=== PATIENT | female | born 1940 | race Caucasian/White ===

== ENCOUNTER 2023-04-19 09:14 | Outpatient (OUT) | payer MEDICARE, SELFPAY ==
[2023-04-19 10:25] LABS: Aspartate Amino Transferase 15 U/L (15-37); Chol HDL Ratio 3.8; Cholesterol 222 mg/dL (<=200); HDL Cholesterol 58 mg/dL (40-60); Triglycerides 247 mg/dL (<=150); VLDL CHOLESTEROL 49.4 mg/dL
== END 2023-04-19 09:15 ==
PROVIDERS: PCP Family Medicine; Visit Provider Internal Medicine Cardiovascular Disease
DX: I25.10 Atherosclerotic heart disease of native coronary artery without angina pectoris (principal); E78.5 Hyperlipidemia, unspecified
CPT/HCPCS: 36415; 80061; 84450

== ENCOUNTER 2023-06-22 09:33 | Outpatient (OUT) | payer MEDICARE, SELFPAY ==
[2023-06-22 10:02] LABS: Basophils Absolute Auto 0.1 10^3/uL (0.0-0.1); Eosinophils Absolute Auto 0.3 10^3/uL (0.0-0.7); Eosinophils Percent Auto 3.2 % (0.9-7.0); Hematocrit 46.1 % (36.0-48.0); Hemoglobin 15.1 g/dL (12.0-16.0); Immature Granulocytes Abs Auto 0.06 10^3/uL (0.00-0.03); Immature Granulocytes Pct Auto 0.8 % (0.0-0.5); Lymphocytes Absolute Auto 1.8 10^3/uL (1.2-3.8); Lymphocytes Percent Auto 22.9 % (20.5-60.0); Mean Corpuscular HGB Conc 32.8 g/dL (29.9-35.2); Mean Corpuscular Hemoglobin 30.3 pg (26.7-34.0); Mean Corpuscular Volume 92.4 fL (81.0-99.0); Monocytes Absolute Auto 0.7 10^3/uL (0.3-0.8); Neutrophils Percent Auto 63.1 % (43.0-75.0); Platelet Count 199 10^3/uL (150-450); Red Blood Count 4.99 10^6/uL (4.20-5.40); Red Cell Distribution Width 13.7 % (11.0-15.0); White Blood Count 7.9 10^3/uL (4.0-11.0)
[2023-06-22 10:14] LABS: Estimated Average Glucose 232 mg/dL; Glycohemoglobin A1C 9.7 % (4.5-6.2)
[2023-06-22 10:30] LABS: Alanine Aminotransferase 15 U/L (14-59); Albumin Globulin Ratio 0.9; Albumin Level 3.4 g/dL (3.4-5.0); Alkaline Phosphatase 70 U/L (46-116); Anion Gap 12.8; Aspartate Amino Transferase 14 U/L (15-37); BUN Creatinine Ratio 13.6; Bilirubin Total 0.5 mg/dL (0.2-1.0); Calcium 9.3 mg/dL (8.5-10.1); Carbon Dioxide 27.5 mmol/L (21.0-32.0); Chloride 104 mmol/L (98-107); Estimated GFR (African America >60 (>=60); Estimated GFR (Non-African Ame >60 (>=60); Globulin 3.7 g/dL; Glucose 193 mg/dL (74-106); Potassium 4.3 mmol/L (3.5-5.1); Sodium 140 mmol/L (136-145); Total Protein 7.1 g/dL (6.4-8.2)
[2023-06-22 17:11] LABS: Bilirubin Urine NEGATIVE (NEGATIVE); Blood Urine SMALL (NEGATIVE); Glucose Urine UA >=1000 mg/dL (NEGATIVE); Ketones Urine NEGATIVE (NEGATIVE); Leukocyte Esterase Urine SMALL (NEGATIVE); Nitrite Urine POSITIVE (NEGATIVE); Protein Urine NEGATIVE (NEG/TRACE); Specific Gravity Urine 1.025 (1.005-1.025); Urobilinogen Urine 0.2 EU/dL (0.2-1.0); pH Urine 5.5 (5.0-9.0)
[2023-06-22 17:12] LABS: Clarity Urine SLIGHTLY CLOUDY (CLEAR); Color Urine DK YELLOW (YELLOW)
== END 2023-06-22 09:34 | disposition home or self-care (01) ==
PROVIDERS: PCP Family Medicine; Visit Provider Family Medicine
DX: E11.65 Type 2 diabetes mellitus with hyperglycemia (principal); R39.9 Unspecified symptoms and signs involving the genitourinary system
CPT/HCPCS: 36415; 80053; 81003; 83036; 85025; 87086; 87150; 87186

== ENCOUNTER 2023-06-24 12:12 | Outpatient (OUT) | payer MEDICARE, SELFPAY ==
--- NOTE | 2023-06-24 | ECG_ITS ---
The 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
--- NOTE | 2023-06-24 12:28 | US_ITS ---
[address] [address] Patient Name: TOMÁS PALMER MRN: [id number] date: 1940 Sex: F Assigned Patient Location: CARD Current Patient Location: Accession/Order Number: [id number] Exam Date: 06/24/2023 12:30 Report Date: 06/25/2023 01:35 At the request of: MICA HOOK Procedure: US carotid duplex BI EXAMINATION: US carotid duplex BI HISTORY: Carotid Bruit R09.89 COMPARISON: CT C-spine 12/18/2022 TECHNIQUE: Duplex Doppler ultrasound analysis of carotid and vertebral arteries. . Bilateral carotid arterial duplex examination was performed using B-mode, color flow and spectral analysis. Carotid stenosis is reported according to validated velocity parameters, similar to NASCET criteria. FINDINGS: RIGHT CAROTID ARTERY: Mild plaque without significant stenosis. Anterior to bifurcation is a 1.1 x 0.7 x 0.5 cm oval hypoechoic mass versus lymph node; also seen on prior CT neck study and favoring a lymph node. RIGHT VERTEBRAL: Antegrade flow. Subclavian: PSV: 100.3 cm/s EDV: 0.0 cm/s CCA: Prox: PSV: 90.4 cm/s EDV: 9.7 cm/s Mid: PSV: 69.3 cm/s EDV: 4.7 cm/s Distal: PSV: 69.3 cm/s EDV: 6.3 cm/s BULB: PSV: 50.4 cm/s EDV: 6.5 cm/s ICA: Prox: PSV: 57.0 cm/s EDV: 12.0 cm/s Mid: PSV: 89.8 cm/s EDV: 15.5 cm/s Distal: PSV: 107.6 cm/s EDV: 18.7 cm/s ECA: PSV: 91.9 cm/s EDV: 0.0 cm/s VERTEBRAL: PSV: 50.5 cm/s EDV: 6.5 cm/s ICA/CCA ratio: PSV: 1.6 EDV: 3.0 LEFT CAROTID ARTERY: Mild plaque without significant stenosis. LEFT VERTEBRAL: Antegrade flow. Subclavian: PSV: 118.3 cm/s EDV: 0.0 cm/s CCA: Prox: PSV: 85.5 cm/s EDV: 14.4 cm/s Mid: PSV: 82.2 cm/s EDV: 14.4 cm/s Distal: PSV: 77.4 cm/s EDV: 14.4 cm/s BULB: PSV: 66.1 cm/s EDV: 7.9 cm/s ICA: Prox: PSV: 79.0 cm/s EDV: 12.8 cm/s Mid: PSV: 88.6 cm/s EDV: 22.4 cm/s Distal: PSV: 79.0 cm/s EDV: 17.6 cm/s ECA: PSV: 103.1 cm/s EDV: 0.0 cm/s VERTEBRAL: PSV: 57.9 cm/s EDV: 7.9 cm/s ICA/CCA ratio: PSV: 1.1 EDV: 1.6 US/US carotid duplex BI IMPRESSION: 1. 0-49% flow stenosis within the right left carotid arteries. 2. Mild atherosclerotic plaque within bulbs bilaterally. 3. Enlarged heterogeneous thyroid gland containing several nodules. Dedicated ultrasound evaluation of the thyroid gland is recommended. Spectral Doppler US Thresholds Stenosis (%) PSV (cm/sec) VICA/VCCA 0-49 <150 <2.5 50-69 150-225 2.5-4.0 >70 >225 >4.0 Electronically authenticated by: GRADY PARKER Date: 06/25/2023 01:35
== END 2023-06-24 12:13 | disposition home or self-care (01) ==
LOC: CARD 12:12
PROVIDERS: PCP Family Medicine; Visit Provider Family Medicine
DX: R07.9 Chest pain, unspecified (principal); R09.89 Other specified symptoms and signs involving the circulatory and respiratory systems
CPT/HCPCS: 93005; 93880

== ENCOUNTER 2023-07-24 10:08 | Outpatient (OUT) | payer MEDICARE, SELFPAY ==
--- NOTE | 2023-07-24 10:12 | US_ITS ---
The [address] [address] Patient Name: TOMÁS PALMER MRN: [id number] date: 1940 Sex: F Assigned Patient Location: US Current Patient Location: Accession/Order Number: [id number] Exam Date: 07/24/2023 10:15 Report Date: 07/25/2023 08:48 At the request of: MICA HOOK Procedure: US thyroid EXAM: Thyroid ultrasound CLINICAL INDICATION: Thyromegaly E01.0. COMPARISON: None TECHNIQUE: US of the thyroid gland was performed using a small parts transducer. Color flow vascular imaging was also done FINDINGS: Right thyroidectomy. Left lobe of the thyroid gland measures 5.8 x 2.1 x 2.5 cm in greatest length. Heterogenous left thyroid parenchyma echogenicity and vascularity. Spongiform 1.8 x 1.4 x 1.5 cm left thyroid nodule. Solid hypoechoic 2.4 x 0.8 x 1.3 cm nodule. Hypoechoic 1.1 x 0.7 x 0.8 cm left thyroid nodule has punctate echogenic foci. This is likely solid although some areas have a somewhat spongiform appearance. The isthmus measures 2 mm in the midline. Echogenicity within the isthmus is normal. US/US thyroid IMPRESSION: 1. Multiple indeterminate thyroid nodules. The solid hypoechoic 2.4 cm nodule meets criteria for ultrasound guided FNA. 2. Right thyroidectomy. Electronically authenticated by: JUAN KAMARA Date: 07/25/2023 08:48
== END 2023-07-24 10:09 | disposition home or self-care (01) ==
LOC: US 10:09
PROVIDERS: PCP Family Medicine; Visit Provider Family Medicine
DX: E01.0 Iodine-deficiency related diffuse (endemic) goiter (principal)
CPT/HCPCS: 76536

== ENCOUNTER 2023-08-02 10:12 | Day surgery (SDC) | payer MEDICARE, SELFPAY ==
--- NOTE | 2023-08-02 10:15 | US_ITS ---
[address] [address] Patient Name: TOMÁS PALMER MRN: [id number] date: 1940 Sex: F Assigned Patient Location: US Current Patient Location: US Accession/Order Number: [id number] Exam Date: 08/02/2023 10:40 Report Date: 08/02/2023 12:40 At the request of: MICA HOOK Procedure: US biopsy thyroid EXAMINATION: US biopsy thyroid HISTORY: Thyroid nodule COMPARISON: Ultrasound thyroid 07/24/2023 TECHNIQUE: After obtaining informed consent, ultrasound-guided fine needle aspiration was performed in the usual sterile manner. FINDINGS: IMAGING: Ultrasound. BIOPSY NEEDLE: 25-gauge; 3 separate passes LOCATION: Several similar-appearing heterogeneous nodules within left lobe; largest nodule within lateral mid body was sampled. SPECIMEN TYPE: Cellular tissue. LOCAL ANESTHETIC: Buffered Xylocaine. COMPLICATIONS: None. LABORATORY: Prepared slide smears and washings for cell block evaluation. OTHER: Negative. PATHOLOGY: Pending. An addendum will be added when results are available. US/US biopsy thyroid IMPRESSION: 1. Uneventful ultrasound guided fine needle aspiration (FNA). 2. Pathology results are pending. Electronically authenticated by: GRADY PARKER Date: 08/02/2023 12:40
[2023-08-02 10:30] VITALS: BP 147/66; PULSE 62; O2SAT 99
== END 2023-08-02 11:35 | disposition home or self-care (01) ==
LOC: US 10:12
PROVIDERS: Radiology Diagnostic Radiology; PCP Family Medicine; Visit Provider Family Medicine
DX: E04.1 Nontoxic single thyroid nodule (principal)
CPT/HCPCS: 10005; 88173

== ENCOUNTER 2023-09-27 09:39 | Emergency (ER) | payer MEDICARE, SELFPAY ==
[2023-09-27 09:42] VITALS: BP 158/79; PULSE 101; RESP 18; TEMP 36.8; O2SAT 95; BMI 23.1
--- NOTE | 2023-09-27 10:09 | ED_ITS ---
HPI - URI/Sore Throat General Chief Complaint: Upper Respiratory Infection Stated Complaint: COUGH Time Seen by Provider: 09/27/23 09:47 Source: patient History of Present Illness HPI Narrative: nasal congestion, cough and sore throat began 4 days ago and have slowly worsened since onset. No fever or chills. She told me that the congestion is in her upper chest as well. No vomiting or diarrhea. No urinary symptoms. Related Data Home Medications Medication Instructions Recorded Confirmed levothyroxine 50 mcg capsule 50 mcg PO DAILY 07/28/23 09/27/23 omega-3 fatty acids 1,000 mg 1,000 mg PO DAILY 07/28/23 09/27/23 capsule pioglitazone 45 mg tablet 45 mg PO DAILY 07/28/23 09/27/23 potassium chloride 10 mEq 10 meq PO DAILY 07/28/23 08/02/23 capsule,extended release propranolol 60 mg capsule,24 60 mg PO DAILY 07/28/23 09/27/23 hr,extended release rosuvastatin 20 mg tablet 20 mg PO DAILY 07/28/23 09/27/23 spironolactone 25 mg tablet 25 mg PO BID 07/28/23 09/27/23 zolpidem 10 mg tablet 10 mg feeding tube BEDTIME 07/28/23 09/27/23 Previous Rx's Medication Instructions Recorded azithromycin 250 mg tablet See Rx Instructions PO .COMPLEX #6 09/27/23 tabs mbmieslqjpwnsqf-ljlqrpgkvkmymqq-HJ 5 ml PO Q6H PRN cold symptoms #118 09/27/23 2 mg-30 mg-10 mg/5 mL oral syrup mL (Bromfed DM) tobramycin 0.3 % eye drops 1 drp ophthalmic (eye) Q6H 7 days 09/27/23 #5 mL Allergies Allergy/AdvReac Type Severity Reaction Status Date / Time Penicillins Allergy skin peeled Verified 08/02/23 12:27 aspirin AdvReac Unknown Verified 08/02/23 12:27 oxycodone AdvReac too strong Verified 08/02/23 12:27 metformin AdvReac Vomiting Uncoded 08/02/23 12:27 [facility] Medical History (Updated 09/27/23 @ 10:21 by Cornelius Giron) Breast cancer ?C50.919 - Malignant neoplasm of unspecified site of unspecified female breast (ICD-10) Diabetes ?E11.9 - Type 2 diabetes mellitus without complications (ICD-10) High cholesterol ?E78.00 - Pure hypercholesterolemia, unspecified (ICD-10) HTN (hypertension) ?I10 - Essential (primary) hypertension (ICD-10) Hypokalemia ?E87.6 - Hypokalemia (ICD-10) Thyroid cancer ?C73 - Malignant neoplasm of thyroid gland (ICD-10) UTI (urinary tract infection) ?N39.0 - Urinary tract infection, site not specified (ICD-10) Surgical History (Updated 08/02/23 @ 12:28 by Yuliana Liu) H/O discectomy ?Z98.890 - Other specified postprocedural states (ICD-10) H/O mastectomy ?Z90.10 - Acquired absence of unspecified breast and nipple (ICD-10) H/O partial thyroidectomy ?E89.0 - Postprocedural hypothyroidism (ICD-10) H/O radiofrequency ablation (RFA) of nerve of lumbar spine ?Z98.890 - Other specified postprocedural states (ICD-10) History of cardiac cath ?Z98.890 - Other specified postprocedural states (ICD-10) History of lumpectomy of right breast ?Z98.890 - Other specified postprocedural states (ICD-10) Hx of tonsillectomy ?Z90.89 - Acquired absence of other organs (ICD-10) S/P fine needle aspiration ?Z98.890 - Other specified postprocedural states (ICD-10) Status post ORIF of fracture of ankle ?Z98.890 - Other specified postprocedural states (ICD-10) ?Z87.81 - Personal history of (healed) traumatic fracture (ICD-10) Exam Narrative Exam Narrative: Nurses notes and vital signs reviewed and patient is not hypoxic. afebrile General: Well-appearing and in no apparent distress. Skin: Warm, dry, no pallor noted. No rash. Head: Normocephalic, atraumatic. Neck: Supple, non-tender. no cervical lymphadenopathy Eye: Pupils are equal, round and EOMI. No scleral icterus. Bilateral conjunctivitis with clear discharge/drainage and some crusting on the lashes Ears, Nose, Mouth, and Throat: TM are clear, moderate nasal mucosal hypertrophy. Oral mucosa is moist, posterior oropharynx erythema without exudate is noted, uvula is mid-line Cardiovascular: Tachycardia. Respiratory: No accessory muscle use or respiratory distress. Lungs with rhonchi in the apical montoya Musculoskeletal: normal ROM, no calf or popliteal tenderness, no lower extremity edema/swelling GI: Abdomen is soft, non-distended. Normal bowel sounds. No tenderness to palpation. No rebound, guarding, or rigidity noted. Neurological: A&O x4. No cranial nerve dysfunction observed. No truncal ataxia. Moves all extremities. Sensation intact. Psychiatric: Cooperative and interactive. Normal mood and affect. Constitutional Vital Signs, click to edit/add: Last Vital Signs Temp 98.2 F 09/27/23 09:42 Pulse 101 H 09/27/23 09:42 Resp 18 09/27/23 09:42 BP 158/79 H 09/27/23 09:42 Pulse Ox 95 09/27/23 09:42 O2 Del Method Room Air 09/27/23 09:42 Course Vital Signs Vital signs: Vital Signs Temperature 98.2 F 09/27/23 09:42 Pulse Rate 101 H 09/27/23 09:42 Respiratory Rate 18 09/27/23 09:42 Blood Pressure 158/79 H 09/27/23 09:42 Pulse Oximetry 95 09/27/23 09:42 Oxygen Delivery Method Room Air 09/27/23 09:42 Temperature 98.2 F 09/27/23 09:42 Pulse Rate 101 H 09/27/23 09:42 Respiratory Rate 18 09/27/23 09:42 Blood Pressure 158/79 H 09/27/23 09:42 Pulse Oximetry 95 09/27/23 09:42 Oxygen Delivery Method Room Air 09/27/23 09:42 MDM - URI/Sore Throat MDM Narrative Medical decision making narrative: Patient discharged home with prescriptions for bromfed and azithromycin. She can either see her PCP as needed or return to the ED if she worsens. Discharge Plan Discharge Chief Complaint: Upper Respiratory Infection Clinical Impression: Upper respiratory infection, Conjunctivitis Patient Disposition: Home, Self-Care Time of Disposition Decision: 10:12 Prescriptions / Home Meds: New azithromycin 250 mg tablet See Rx Instructions .ROUTE .COMPLEX Qty: 6 0RF Rx Instructions: For 250 mg dose pack: take 500 mg today (day 1), then 250 mg for 4 days (days 2-5) rxauxoegfqtvctj-zuewbrxjx-ZK [Bromfed DM] 2-30-10 mg/5 mL syrup 5 ml PO Q6H PRN (Reason: cold symptoms) Qty: 118 0RF tobramycin 0.3 % drops 1 drp ophthalmic (eye) Q6H 7 Days Qty: 5 0RF No Action zolpidem 10 mg tablet 10 mg feeding tube BEDTIME potassium chloride 10 mEq capsule, extended release 10 meq PO DAILY levothyroxine 50 mcg capsule 50 mcg PO DAILY omega-3 fatty acids 1,000 mg capsule 1,000 mg PO DAILY pioglitazone 45 mg tablet 45 mg PO DAILY propranolol 60 mg capsule,extended release 24 hr 60 mg PO DAILY spironolactone 25 mg tablet 25 mg PO BID rosuvastatin 20 mg tablet 20 mg PO DAILY Instructions: Upper Respiratory Infection (ED), Conjunctivitis (ED) Stand Alone Forms: Portal Instructions Referrals: Shanique Fletcher MD [Primary Care Provider] - 1 week
[2023-09-27 10:31] VITALS: BP 141/63; PULSE 88; RESP 20; O2SAT 94
== END 2023-09-27 10:34 | disposition home or self-care (01) ==
PROVIDERS: Emergency Provider Emergency Medicine; PCP Family Medicine
DX: J06.9 Acute upper respiratory infection, unspecified (principal); H10.9 Unspecified conjunctivitis; E89.0 Postprocedural hypothyroidism; I10 Essential (primary) hypertension; E78.00 Pure hypercholesterolemia, unspecified; E11.9 Type 2 diabetes mellitus without complications; Z79.899 Other long term (current) drug therapy; Z79.890 Hormone replacement therapy; Z90.10 Acquired absence of unspecified breast and nipple; Z98.890 Other specified postprocedural states; Z85.3 Personal history of malignant neoplasm of breast; Z85.850 Personal history of malignant neoplasm of thyroid; Z87.440 Personal history of urinary (tract) infections
CPT/HCPCS: 99283

== ENCOUNTER 2024-06-29 00:09 | Emergency (ER) | payer MEDICARE, SELFPAY ==
[2024-06-29 00:15] VITALS: PULSE 73
[2024-06-29 00:17] VITALS: BP 122/100; PULSE 74; TEMP 36.6; O2SAT 96; BMI 23.8
--- NOTE | 2024-06-29 00:24 | ED_ITS ---
HPI - Chest Pain General Chief Complaint: Chest Pain Stated Complaint: CHEST PAIN Time Seen by Provider: 06/29/24 00:21 Source: patient Mode of arrival: Wheelchair Limitations: no limitations History of Present Illness HPI narrative: past history of CAD. and NIDDM. past history of multiple stents. Presents with acute chest pain that started about one hour ago associated with nausea. 06/17 chest pain Related Data Home Medications ?Medication ?Instructions ?Recorded ?Confirmed levothyroxine 50 mcg capsule 50 mcg PO DAILY 07/28/23 06/29/24 omega-3 fatty acids 1,000 mg 1,000 mg PO DAILY 07/28/23 09/27/23 capsule pioglitazone 45 mg tablet 45 mg PO DAILY 07/28/23 09/27/23 potassium chloride 10 mEq 10 meq PO DAILY 07/28/23 08/02/23 capsule,extended release propranolol 60 mg capsule,24 60 mg PO DAILY 07/28/23 09/27/23 hr,extended release rosuvastatin 20 mg tablet 20 mg PO DAILY 07/28/23 09/27/23 spironolactone 25 mg tablet 25 mg PO BID 07/28/23 09/27/23 zolpidem 10 mg tablet 10 mg feeding tube BEDTIME 07/28/23 09/27/23 Previous Rx's ?Medication ?Instructions ?Recorded azithromycin 250 mg tablet See Rx Instructions PO .COMPLEX #6 09/27/23 tabs dzbdklzukbjlxrd-oubwajtjddqhcrd-ZJ 5 ml PO Q6H PRN cold symptoms #118 09/27/23 2 mg-30 mg-10 mg/5 mL oral syrup mL (Bromfed DM) tobramycin 0.3 % eye drops 1 drp ophthalmic (eye) Q6H 7 days 09/27/23 #5 mL Allergies Allergy/AdvReac Type Severity Reaction Status Date / Time Penicillins Allergy skin peeled Verified 08/02/23 12:27 oxycodone AdvReac too strong Verified 08/02/23 12:27 metformin AdvReac Vomiting Uncoded 08/02/23 12:27 Review of Systems ROS Status of ROS 10 or more systems reviewed and unremark able except as noted in history and below [facility] Medical History (Updated 06/29/24 @ 01:19 by Wilner Allen MD) High cholesterol ?E78.00 - Pure hypercholesterolemia, unspecified (ICD-10) Thyroid cancer ?C73 - Malignant neoplasm of thyroid gland (ICD-10) Breast cancer ?C50.919 - Malignant neoplasm of unspecified site of unspecified female breast (ICD-10) Hypokalemia ?E87.6 - Hypokalemia (ICD-10) HTN (hypertension) ?I10 - Essential (primary) hypertension (ICD-10) Diabetes ?E11.9 - Type 2 diabetes mellitus without complications (ICD-10) UTI (urinary tract infection) ?N39.0 - Urinary tract infection, site not specified (ICD-10) Surgical History (Updated 08/02/23 @ 12:28 by Yuliana Liu) History of lumpectomy of right breast ?Z98.890 - Other specified postprocedural states (ICD-10) H/O radiofrequency ablation (RFA) of nerve of lumbar spine ?Z98.890 - Other specified postprocedural states (ICD-10) S/P fine needle aspiration ?Z98.890 - Other specified postprocedural states (ICD-10) Hx of tonsillectomy ?Z90.89 - Acquired absence of other organs (ICD-10) H/O discectomy ?Z98.890 - Other specified postprocedural states (ICD-10) History of cardiac cath ?Z98.890 - Other specified postprocedural states (ICD-10) Status post ORIF of fracture of ankle ?Z98.890 - Other specified postprocedural states (ICD-10) ?Z87.81 - Personal history of (healed) traumatic fracture (ICD-10) H/O mastectomy ?Z90.10 - Acquired absence of unspecified breast and nipple (ICD-10) H/O partial thyroidectomy ?E89.0 - Postprocedural hypothyroidism (ICD-10) Exam Constitutional Vital Signs, click to edit/add: Last Vital Signs Temp 97.8 F 06/29/24 00:17 Pulse 69 06/29/24 01:16 Resp 18 06/29/24 01:16 BP 90/55 06/29/24 01:16 Pulse Ox 95 06/29/24 01:16 O2 Del Method Room Air 06/29/24 00:17 Common normals: average body habitus, oriented x3, alert and well nourished General appearance: in distress [facility] Common normals: normocephalic and head/scalp atraumatic Eye Common normals: PERRL, EOMs intact bilaterally and conjunctivae normal Respiratory Common normals: normal respiratory effort, no retractions, no use of accessory muscles and clear to auscultation bilaterally Cardio Common normals: regular rate, regular rhythm, S1 normal heart sound and S2 normal heart sound GI Common normals: Normal to inspection, nondistended, normoactive bowel sounds present, soft to palpation and non-tender Extremity Common normals: normal to inspection and full ROM Neuro Common normals: oriented x3, CN's II-XII intact bilaterally, moves all extremities and no focal motor deficits Psych Appearance: grossly normal Course Vital Signs Vital signs: Vital Signs Temperature 97.8 F 06/29/24 00:17 Pulse Rate 74 06/29/24 00:17 Respiratory Rate 18 06/29/24 00:17 Blood Pressure 122/100 H 06/29/24 00:17 Pulse Oximetry 96 06/29/24 00:17 Oxygen Delivery Method Room Air 06/29/24 00:17 Temperature 97.8 F 06/29/24 00:17 Pulse Rate 69 06/29/24 01:16 Respiratory Rate 18 06/29/24 01:16 Blood Pressure 90/55 06/29/24 01:16 Pulse Oximetry 95 06/29/24 01:16 Oxygen Delivery Method Room Air 06/29/24 00:17 MDM - Chest Pain MDM Narrative Medical decision making narrative: patient has past history of CAD s/p stent placement x 6 per history. followed by cardiology at [facility]. Presents with acute onset of left sided chest pain that started about one hour ago associated with nausea. EKG with ST elevation V1 and V2. NSR. Old Q waves V1-3. peaked T waves. Different from EKG 06/2023. Cardiology consult called for discussed with Dr Mcdermott and patient accepted for transfer to [facility] with acute STEMI Lab Data Labs: Lab Results 06/29/24 Range/Units 00:24 WBC 12.1 H (4.0-11.0) 10^3/uL RBC 5.20 (4.20-5.40) 10^6/uL Hgb 16.0 (12.0-16.0) g/dL Hct 47.3 (36.0-48.0) % MCV 91.0 (81.0-99.0) fL MCH 30.8 (26.7-34.0) pg MCHC 33.8 (29.9-35.2) g/dL RDW 13.0 (11.0-15.0) % Plt Count 307 (150-450) 10^3/uL MPV 9.8 (9.5-13.5) fL Neut % (Auto) 49.6 (43.0-75.0) % Lymph % (Auto) 36.0 (20.5-60.0) % [place] % (Auto) 11.4 (1.7-12.0) % Eos % (Auto) 1.3 (0.9-7.0) % Baso % (Auto) 1.0 (0.2-2.0) % Neut # (Auto) 6.0 (1.4-6.5) 10^3/uL Lymph # (Auto) 4.4 H (1.2-3.8) 10^3/uL [place] # (Auto) 1.4 H (0.3-0.8) 10^3/uL Eos # (Auto) 0.2 (0.0-0.7) 10^3/uL Baso # (Auto) 0.1 (0.0-0.1) 10^3/uL Abs Immat Gran (auto) 0.08 H (0.00-0.03) 10^3/uL Imm/Tot Granulo (auto) 0.7 H (0.0-0.5) % Sodium 137 (136-145) mmol/L Potassium 4.3 (3.5-5.1) mmol/L Chloride 99 (98-107) mmol/L Carbon Dioxide 31.9 (21.0-32.0) mmol/L Anion Gap 10.4 BUN 12.0 (7.0-18.0) mg/dL Creatinine 0.83 (0.55-1.02) mg/dL Est GFR ( Amer) >60 (>=60) Est GFR (Non-Af Amer) >60 (>=60) BUN/Creatinine Ratio 14.5 Glucose 222 H (74-106) mg/dL Calcium 10.2 H (8.5-10.1) mg/dL Troponin I High Sens 48.1 (4.0-51.3) pg/mL Critical Care Time Critical Care Time Total Critical Care Time: 30 Discharge Plan Discharge Chief Complaint: Chest Pain Clinical Impression: ST elevation myocardial infarction (STEMI) Patient Disposition: er Acute Care Hospital Discharge Location: [facility]
--- NOTE | 2024-06-29 00:27 | XR_ITS ---
The [address] [address] Patient Name: TOMÁS PALMER MRN: [id number] date: 1940 Sex: F Assigned Patient Location: ER Current Patient Location: Accession/Order Number: [id number] Exam Date: 06/29/2024 01:00 Report Date: 06/29/2024 02:24 At the request of: NOY WARNER Procedure: XR chest 1V SINGLE VIEW CHEST: 06/29/2024 1:00 AM EDT CLINICAL HISTORY:chest pain COMPARISONS: None. TECHNIQUE: Single frontal view of the chest, utilizing portable technique. Portable radiography should be considered a technically compromised study. Strongly consider dedicated PA and lateral chest radiographs, as clinically indicated. FINDINGS: LINES AND TUBES: Cardiac monitoring leads and wires overlie the patient. CARDIAC SILHOUETTE: Within normal limits. MEDIASTINAL AND HILAR CONTOUR: Within normal limits. PULMONARY PARENCHYMA AND PLEURA: Hyperinflation with probable COPD. Mild scarring at lung bases. Mild blunting left costophrenic angle with what appears to be some left basilar atelectasis or infiltrate. No consolidation on the right. No pneumothorax or right pleural effusion. OSSEOUS STRUCTURES:Nothing significant. OTHER COMMENTS:Left axillary surgical clips. XR/XR chest 1V IMPRESSION: COPD with findings suggesting left basilar infiltrate and pneumonia with small left pleural effusion and probable component of atelectasis. Correlate symptomatically and follow-up. Follow-up with PA and lateral chest with treatment. This report was generated with voice recognition software. Effort has been made to ensure accuracy of this report, however, occasional wording errors may persist. Please contact our office with any questions. Electronically authenticated by: ANIVAL ZAMORA Date: 06/29/2024 02:24
[2024-06-29] MEDS: NITROGLYCERIN 0.4 MG BOTTLE PO (00:30)
[2024-06-29 00:37] LABS: Basophils Absolute Auto 0.1 10^3/uL (0.0-0.1); Eosinophils Absolute Auto 0.2 10^3/uL (0.0-0.7); Eosinophils Percent Auto 1.3 % (0.9-7.0); Hematocrit 47.3 % (36.0-48.0); Immature Granulocytes Abs Auto 0.08 10^3/uL (0.00-0.03); Immature Granulocytes Pct Auto 0.7 % (0.0-0.5); Lymphocytes Absolute Auto 4.4 10^3/uL (1.2-3.8); Mean Corpuscular HGB Conc 33.8 g/dL (29.9-35.2); Mean Corpuscular Hemoglobin 30.8 pg (26.7-34.0); Mean Platelet Volume 9.8 fL (9.5-13.5); Monocytes Absolute Auto 1.4 10^3/uL (0.3-0.8); Monocytes Percent Auto 11.4 % (1.7-12.0); Neutrophils Percent Auto 49.6 % (43.0-75.0); Platelet Count 307 10^3/uL (150-450); White Blood Count 12.1 10^3/uL (4.0-11.0)
[2024-06-29] MEDS: ASPIRIN 81 MG TAB.CHEW 324 MG PO (00:42)
[2024-06-29] MEDS: ONDANSETRON PF 4 MG/2 ML VIAL IV (00:42)
[2024-06-29] MEDS: MORPHINE SULFATE 4 MG/ML VIAL IV (00:42)
[2024-06-29 00:52] LABS: Anion Gap 10.4; BUN Creatinine Ratio 14.5; Calcium 10.2 mg/dL (8.5-10.1); Carbon Dioxide 31.9 mmol/L (21.0-32.0); Chloride 99 mmol/L (98-107); Estimated GFR (African America >60 (>=60); Estimated GFR (Non-African Ame >60 (>=60); Glucose 222 mg/dL (74-106); Potassium 4.3 mmol/L (3.5-5.1); Sodium 137 mmol/L (136-145); Troponin I High Sensitivity 48.1 pg/mL (4.0-51.3)
[2024-06-29] MEDS: HEPARIN SODIUM (PORCINE) 5,000 UNIT/ML VIAL 2600 UNIT IV (01:11)
[2024-06-29 01:16] VITALS: BP 90/55; PULSE 69; O2SAT 95
[2024-06-29] MEDS: TICAGRELOR 90 MG TABLET 180 MG PO (01:22)
--- OUTSIDE RECORDS SUMMARY | 2024-06-29 01:30 | XMS_ITS | CCD ---
Author Organization [facility] Care Team Providers Care Ski Patrol Officer Name Role Phone MICA HOOK Primary Care Unavailable KIMBERLY RECIO Referring Unavailable PRIYA BAGLEY Admitting Unavailable SC Procedure Practitioner Unavailab ANITA Coon Surgeon Unavailable KURTIS STACY Attending Unavailable Unavailable Unavailable Mica Hook Unavailable MONSTER, DR MICA Klein Admitting Unavailable HOOK, DR MICA Klein Attending Unavailable MONSTER, DR MICA Klein Primary Care Unavailable MONSTER, DR MICA Klein Consulting Unavailable HOOK, DR MICA Klein Primary Care Unavailable DIAB, ADAN Admitting Unavailable SUE, ADAN Attending Unavailable ZIARGENIS, DR GRADY Barrett Consulting Unavailable ROBBIN KELLOGG Consulting Unavailable DIAB, ADAN Consulting Unavailable HOOK, DR MICA Klein Admitting Unavailable HOOK, DR MICA Klein Attending Unavailable MONSTER, DR MICA Klein Primary Care Unavailable MONSTER, DR MICA Klein Admitting Unavailable HOOK, DR MICA Klein Attending Unavailable HOOK, DR MICA Klein Primary Care Unavailable HOOK, DR MICA Klein Consulting Unavailable HOOK, DR MICA Klein Admitting Unavailable HOOK, DR MICA Klein Attending Unavailable HOOK, DR MICA Klein Primary Care Unavailable HOOK, DR MICA Klein Consulting Unavailable Mica Hook Unavailable MD Mica Hook Primary Care Provider MD Uma Mccauley Attending Provider [phone] Yesy BRADSHAW, Dr. Yusuf Lebron Referring Unavailable Monster, Dr. Mica Palacios Primary Care Unav ailable Yesy BRADSHAW, Dr. Yusuf Lebron Attending Unavailable Yesy BRADSHAW, Dr. Yusuf Lebron Referring Unavailable Monster, Dr. Mica Palacios Primary Care Unav ailable Yesy BRADSHAW, Dr. Yusuf Lebron Attending Unavailable Uma Mccauley Unavailable MD Mica Hook Primary Care Provider MD Uma Mccauley Attending Provider MD Mica Hook Primary Care Provider MD Mica Hook Attending Provider MD Mica Hook Primary Care Provider MD Mica Hook Attending Provider DO Nola Cooper Emergency Provider DO Charles Salinas A Other Provider MD Uma Mccauley Other Provider MD Porfirio Christensen II Other Provider MD Damián Christensen Other Provider DO Toni Arthur A Other Provider [phone] MD Ismael Booth Other Provider MD Chin Rodarte Admit Provider MD Chin Rodarte Attending Provider MD Amanda alpesh Yaser Other Provider MD Last [place] Other Provider Norma Diaz Unavailable Ismael Booth Unavailable MD Anthony Alaniz Admit Provider MD Anthony Alaniz Attending Provider JANETH Mascorro Other Provider Unavailable JANETH Arrieta Other Provider Unavailable JANETH Farias Other Provider Unavailable JANETH Vo Other Provider Unavailable JANETH Reyes Other Provider Unavailable JANETH Herzog Other Provider Unavailable MD Goldie Dale Other Provider FRANK Bejarano Other Provider DO Quin Pittman Other Provider MD Gonzales Bagley Other Provider DO Hank Vasquez Other Provider MD Kareem Parker Other Provider MD Ailyn Cantu Other Provider FRANK Kline Other Provider MD Brian Merino Other Provider MD Jasiel Bella Other Provider MD Jean Monson Other Provider MD Marcelo Carlos Other Provider DO Damián Boateng Other Provider MD Keyon Cortes Other Provider MD Bakari Pettit Other Provider NICK Perez-C Annie Perales Other Provider MD Eliot Gar Other Provider MD Rm Wilson Other Provider MD Humberto Chamorro Other Provider MD Tavo Corbett Other Provider DO Isabel Ochoa Other Provider DO Esau Wiley Other Provider DO Yves Rollins Other Provider [phone] FRANK Fischer Other Provider DO Sergo Pike Other Provider MD Luis Moya Other Provider FRANK Hills Other Provider FRANK Vega Other Provider MD Chin Rodarte Other Provider MD Nabil Buitrago Other Provider FRANK Guzman Other Provider Kal, DO Yazid Other Provider JANETH Hammond Other Provider Unavailable MD Ismael Booth Attending Provider MD Mica Hook Primary Care Provider MD Mica Hook Attending Provider MD Tosha Patel Attending Provider FRANK Guzman Other Provider Unavaila MD Mica Christina Attending Provider Mica Hook MD Primary Care Provider [phone] Yusuf Hayward MD Unavailable [phone] YUSUF HAYWARD Attending Unavailable MICA HOOK Primary Care Unavailable MD Mica Hook Primary Care Provider MD Tosha Patel Attending Provider [phone] MD Mica Hook Attending Provider MD Ismael Booth Attending Provider MD Ismael Booth Attending Provider MD Mica Hook Primary Care Provider MD Mica Hook Primary Care Provider MD Tosha Patel Attending Provider Mica Hook Primary Care Unavailable Tosha Patel Attending UnavailTosha Cyr Admitting UnavailIsmael Ruiz Consulting Unavailable Mica Hook Primary Care Unavailable Alabisiad, Alaa Attending Unavailable Alahmad, Alaa Admitting Unavailable Damián Christensen Consulting Unavailable Uma Mccauley Consulting Unavailable Toni Arthur Consulting Unavailable Porfirio Christensen II Consulting UnavailCharles Donato Consulting Unavailable Tosha Patel Consulting UnavailLast Horta Consulting Unavaila Anthony Toure Attending Unavailable Mica Hook Primary Care Unavailable Anthony Alaniz Admitting Unavailable Stella Mascorro Consulting Unavailable Jennifer Arrieta Consulting Unavailable Danna Farias Consulting Unavailable Belinda Vo Consulting Unavailable Merissa Reyes Consulting Unavailable Stacey Herzog Consulting Unavailable Goldie Dale Consulting Unavailable Lyudmila Bejarano Consulting Unavailable uQin Pittman Consulting Unavailable Gonzales Bagley Consulting Unavailable Hank Vasquez Consulting UnavailKareem Martinez Consulting Unavailable Ailyn Cantu Consulting Unavailable Dary Kline Consulting UnavailBrian Wild Consulting Unavailable Jasiel Bella Consulting Unavailable Jean Monson Consulting Unavailable Marcelo Carlos Consulting Unavailable Damián Boateng Consulting Unavailable Keyon Cortes Consulting Unavailable Bakari Pettit Consulting Unavailable Annie Perez Consulting Unavailable Eliot Gar Consulting UnavailRm Sage Consulting Unavailable Humberto Chamorro Consulting Unavailable Tavo Corbett Consulting Unavailable Isabel Ochoa Consulting Unavailable Esau Wiley Consulting Unavailable Yves Rollins Consulting Unavailable ObYelitza erickson Consulting Unavailable Sergo Pike Consulting Unavailable Daromar Obhakeemh Kvng Consulting Unavailable Ysabel Hills Consulting Unavailable Leia Vega Consulting Unavailable Alahmad, Alaa Consulting Unavailable Nabil Buitrago Consulting Unavailable Emeli Guzman Consulting Unavailable Mehnaz Bowden Consulting Unavailable Syl Hammond Consulting Unavailable Ismael Booth Attending Unavailable Hook, Mica E Primary Care Unavailable Olexa, Ismael Admitting Unavailable Hook, Mica E Admitting Unavailable Hook, Mica E Primary Care Unavailable HookMica E Attending Unavailable Olexa, Ismael Attending Unavailable Hook, Mica E Primary Care Unavailable Olexa, Ismael Admitting Unavailable Hook, Mica E Admitting Unavailable Hook, Mica E Primary Care Unavailable Hook, Mica E Attending Unavailable JAS STUART Attending Unavailable TOMASZ RON Referring Unavailable Allergies Allergy Classification Reported Allergen(s) Allergy Type Date of Onset Reaction(s) Facility (15 sources) cilostazol Drug Allergy unknown [facility] Repository (16 sources) metFORMIN; Translations: [METFORMIN] Drug Allergy Vomiting [facility] Repository (17 sources) Penicillins; Translations: [PENICILLINS] Drug allergy (disorder) Anaphylaxis [facility] Repository (20 sources) metFORMIN; Translations: [metformin] Drug Allergy Other [facility] (20 sources) oxyCODONE; Translations: [oxycodone] Drug Allergy Hallucinations [facility] (6 sources) Penicillins; Translations: [Penicillins] Allergy to drug (finding) [facility] 250 DO Work Phone: (1 source) metFORMIN Drug Allergy [facility] Repository (1 source) oxyCODONE Drug Allergy [facility] Repository (16 sources) Penicillin Drug Allergy anaphylaxis [employer] [facility] [employer] [facility] Other (8 sources) Aspirin Drug Allergy Unknown [employer] Other (18 sources) aspirin contraindicated Propensity to adverse reactions Comment:adverse rxn/side effects [employer] Other (2 sources) patient allergy list reviewed by nurse or physicia Propensity to adverse reactions Comment:Done [employer] Other (18 sources) Ambien CR *HYPNOTICS/SEDATIV ES/SLEEP DISORDER AGEN Propensity to adverse reactions Unknown [employer] Other (6 sources) Allergies Reconciled Propensity to adverse reactions Unknown [employer] Other (18 sources) Substance with penicillin structure and antibacterial mechanism of action (substance) Drug allergy anaphylaxis [employer] Other (4 sources) zolpidem; Translations: [zolpidem] Drug Allergy 024 [address] [facility] (1 source) Penicillins Drug Allergy Nausea/vomiting [facility] Work Phone: (1 source) cilostazol Drug Allergy [facility] Repository (1 source) metFORMIN Drug Allergy [facility] Repository (1 source) oxyCODONE Drug Allergy [facility] Repository (1 source) Penicillins Drug allergy (disorder) 024 [facility] Repository Medications Current Medications Medication Drug Class(es) Dates Sig (Normalized) Sig (Original) acetaminophen 325 mg oral tablet (20 sources) Start: 10-26-2023 End: 01-17-2024 take 2 tablets by mouth three times daily Acetaminophen (Tylenol) 325 mg tablet Active 650 MG PO Three times daily January 17, 2024 11:34am take 1 tablet by alex th three times daily as needed Acetaminophen 325 MG 1 tablet as needed Orally three times daily Active Acetaminophen / HYDROcodone (12 sources) Opioid Agonist Start: 12-23-2022 take 1-2 tablets by mouth every six hours as needed HYDROcodone-Acetaminophen 5-325 MG Oral Tablet TAKE 1 TO 2 TABLETS BY MOUTH EVERY 6 HOURS NEEDED FOR 7 DAYS Quantity: 50 Refills: 0 Ordered: 24-Dec-2022 DO Start : 23-Dec-2022 Active Start: 12-23-2022 take 1-2 tablets by mouth every six hours as needed for pain [place] 5-325 MG 1-2 tablets as needed for pain Orally every 6 hrs for 7 days Dec, Active Start: 12-23-2022 take 1-2 tablets by mouth every six hours as needed [place] 5-325 MG 1-2 tablets as needed Orally every 6 hrs for 7 days Dec, Active ascorbic acid 500 mg oral tablet (16 sources) Vitamin C Start: 11-03-2023 take 1 tablet by mouth once daily Ascorbic Acid (Vitamin C) (Vitamin C) 500 mg Tablet Active 500 MG PO Daily November 03, 2023 1:00am Vitamin C Active Blood-Glucose Meter (Onetouc h Ultra2 Meter) misc (6 sources) Start: 01-04-2024 Blood-Glucose Meter (Onetouch Ultra2 Meter) misc Active EACH .ROUTE .MEDSUPPLY January 04, 2024 1:00am As directed Blood-Glucose Sensor (Freest yle Rocio 3 Sensor) device (20 sources) Start: 02-24-2024 Blood-Glucose Sensor (Freestyle Rocio 3 Sensor) device Active 0 MISCELLANE .MEDSUPPLY February 24, 2024 8:35am As directed invitro, change every 14 days Start: 02-24-2024 End: 02-24-2024 Blood-Glucose Sensor (Freest yle Rocio 3 Sensor) device Discontinued 0 MISCELLANE .MEDSUPPLY 1 February 24, 2024 12:00am February 24, 2024 8:38am As directed Start: 01-04-2024 End: 01-04-2024 Blood-Glucose Sensor (Freest yle Rocio 3 Sensor) device Discontinued 0 .Route January 04, 2024 1:00am January 04, 2024 11:50am As directed Start: 01-04-2024 End: 01-04-2024 Blood-Glucose Sensor (Freest yle Rocio 3 Sensor) device Discontinued EACH .ROUTE .MEDSUPPLY 1 January 04, 2024 1:00am January 04, 2024 11:50am As directed Calcium Carbonate+Vitamin D (7 sources) Calcium Carbonat e+Vitamin D Active Calcium Carbonate-Vitamin D3 (Oyster Shell Calcium-Vit D3) 500 mg-5 mcg (200 unit) Tablet (9 sources) Start: 10-26-2023 take 1 tablet by mouth twice daily Calcium Carbonate-Vitamin D3 (Oyster Shell Calcium-Vit D3) 500 mg-5 mcg (200 unit) Tablet Active 1 TAB PO Twice daily October 26, 2023 1:00am Start: 10-26-2023 take 1 tablet by alex th twice daily Calcium Carbonate-Vitamin D3 (Oyster Shell Calcium-Vit D3) 500 mg-5 mcg (200 unit) Tablet Active 1 TAB PO Twice daily October 26, 2023 12:00am Cranberry preparation (10 sources) Non-Standardized Food Allergenic Extract, Non-Standardized Plant Allergenic Extract AZO Cranberry Active diclofenac sodium 0.01 mg/mg topical gel (20 sources) Nonsteroidal Anti-inflammatory Drug Start: 10-26-20 End: 03-07-20 apply 2 g topically three times daily Diclofenac Sodium Active 2 GM TOPICAL Three times daily March 07, 2024 11:11am Start: 03-30-2023 Voltaren 1 % a pply 1-2 grams to affected area Externally BID for 30 days March, Not-Taking/PRN Start: 03-30-2023 Voltaren 1 % a pply 1-2 grams to affected area Externally BID for 30 days March, Active Start: 03-30-2023 Voltaren 1 % a pply 1-2 grams to affected area Externally BID for 30 days March, Active Start: 05-05-2019 End: 10-11-2023 take 75 mg by mouth twice daily Diclofenac Sodium Discontinued 75 MG PO Twice daily May 05, 2019 12:00am October 11, 2023 5:25pm Diclofenac Sodiu m 1 % as directed Externally Active diphenhydrAMINE hydrochloride 25 mg oral capsule (16 sources) Histamine-1 Receptor Antagonist Start: 01-14-2024 take 1 capsule by mouth three times daily Diphenhydramine Hcl (Benadryl) 25 mg capsule Active 25 MG PO Three times daily January 14, 2024 1:00am Benadryl Active docusate sodium 50 mg / sennosides, shelter 8.6 mg oral tablet (1 source) take 2 tablets by mouth once daily sennosides-docusate sodium (Juliana-Colace) 8.6-50 mg tablet Take 2 tablets by mouth once daily. 0 Active FreeStyle Rocio 3 Sensor - (7 sources) FreeStyle Rocio 3 Sensor - as directed q 14 days Active FreeStyle Rocio 3 Sensor - as directed q 14 days for 30 days Active guaiFENesin (7 sources) Mucinex Active 3 ml insulin aspart, human 1 00 unt/ml pen injector (7 sources) Insulin Analog NovoLOG FlexPen 100 UNIT/ML ACHS, ISS 1:50 Subcutaneous Active NovoLOG FlexPen 100 UNIT/ML as directed Subcutaneous Active 3 ml insulin glargine 100 unt/ml pen injector (20 sources) Insulin Analog Start: 10-26-2023 Lantus Solosta r U-100 Insulin 100 unit/mL (3 mL) pen Start: 10-26-2023 End: 01-17-2024 Insulin Glargine (Lantus Ciara ostar U-100 Insulin) 100 unit/mL (3 mL) Insulin Pen Discontinued 25 UNIT SUBCUT Daily 7.5 October 26, 2023 1:00am January 17, 2024 11:44am Start: 05-05-2019 End: 10-11-2023 inject 12 [IU] by subcutaneous injection once daily at bedtime Insulin Glargine Discontinued 12 UNIT SUBCUT Daily at bedtime May 05, 2019 12:00am October 11, 2023 5:25pm Lantus SoloStar 100 UNIT/ML as directed Subcutaneous Active Lantus 100 UNIT/ ML as directed Subcutaneous 25 units Not-Taking 3 ml insulin glargine 100 unt/ml / lixisenatide 0.033 mg/ml pen injector (20 sources) Insulin Analog Start: 06-07-2024 End: 06-07-2024 Insulin Glargine-Lixisenatid e (Soliqua 100/33) 100 unit-33 mcg/mL insulin pen Active 23 UNIT SUBCUT Daily June 07, 2024 12:09pm Titrate to 30 u glargine once daily, has written instructions Start: 06-07-2024 End: 06-07-2024 Insulin Glargine-Lixisenatid e (Soliqua 100/33) 100 unit-33 mcg/mL insulin pen Discontinued 21 UNIT SUBCUT Daily June 07, 2024 11:23am June 07, 2024 12:08pm Titrate to 30 u glargine once daily, has written instructions Start: 03-07-2024 End: 06-07-2024 Insulin Glargine-Lixisenatid e (Soliqua 100/33) 100 unit-33 mcg/mL insulin pen Discontinued 18 UNIT SUBCUT Daily 16.2 90 March 07, 2024 3:29pm June 07, 2024 11:24am Titrate to 30 u glargine once daily, has written instructions Start: 01-17-2024 End: 03-07-2024 Insulin Glargine-Lixisenatid e (Soliqua 100/33) 100 unit-33 mcg/mL insulin pen Discontinued 16 UNIT SUBCUT Daily January 17, 2024 5:21pm March 07, 2024 11:17am Start: 01-17-2024 End: 01-17-2024 Insulin Glargine-Lixisenatid e (Soliqua 100/33) 100 unit-33 mcg/mL insulin pen Discontinued 15 UNIT SUBCUT Daily January 17, 2024 12:00am January 17, 2024 5:22pm Start: 12-15-2023 inject 15 [IU] by subcutaneous injection once daily Soliqua 100-33 UNT-MCG/ML inject 15 units Subcutaneous Daily for 90 days Dec, Active isopropyl alcohol 0.7 ml/ml medicated pad (2 sources) Start: 12-15-2023 Alcohol Prep P ads 70 % Use with Insulin pens Topical 4 times per day for 90 days Dec, Active melatonin 5 mg oral tablet (20 sources) Start: 03-07-2024 take 5 mg by mouth once daily at bedtime Melatonin Active 5 MG PO Daily at bedtime March 07, 2024 12:00am Start: 10-26-2023 End: 02-18-2024 take 5 mg by mouth once daily at bedtime Melatonin Discontinued 5 MG PO Daily at bedtime October 26, 2023 1:00am February 18, 2024 2:05pm One Touch Glucometer (5 sources) Start: 11-18-2023 One Touch Glucometer as directed sq 4 times daily for 365 days Dx E11.65 or insurance preferred Nov, Active 24 hr propranolol hydrochloride 160 mg extended release oral capsule (20 sources) beta-Adrenergic Ramos Start: 03-23-2024 take 1 capsule by mouth once daily Propranolol Active 0 .ROUTE .COMPLEX March 23, 2024 9:51am TAKE 1 CAPSULE BY MOUTH EVERY DAY Start: 03-23-2024 End: 03-23-2024 take 160 mg by mouth once daily Propranolol Discontinu ed 160 MG PO Daily March 23, 2024 12:00am March 23, 2024 9:51am Start: 01-17-2024 End: 03-23-2024 take 80 mg by mouth once daily Propranolol Discontinue d 80 MG PO Daily January 17, 2024 11:46am March 23, 2024 9:28am Start: 10-26-2023 End: 01-17-2024 take 160 mg by mouth once daily Propranolol Discontinu ed 160 MG PO Daily October 26, 2023 1:00am January 17, 2024 11:47am Start: 05-05-2019 End: 01-26-2024 take 160 mg by mouth once daily Propranolol Discontinu ed 160 MG PO Daily October 11, 2023 1:00am October 26, 2023 3:57pm take 1 capsule by [facility] every twenty-four hours Propranolol HCl ER 80 MG 1 capsule Orally Once a day for 90 days Active Propranolol HCl Active Senna Leaves (5 sources) Start: 03-07-2024 senna (Senokot) Active PO March 07, 2024 12:00am spironolactone 25 mg oral tablet (20 sources) Aldosterone Antagonist Start: 03-07-2024 take 25 mg by mouth twice daily Spironolactone Active 25 MG PO Twice daily March 07, 2024 12:00am Start: 11-10-2021 End: 02-18-2024 take 25 mg by mouth twice daily Spironolactone Discontinued 25 MG PO Twice daily January 17, 2024 12:00am February 18, 2024 2:05pm zolpidem tartrate 5 mg oral tablet (20 sources) gamma-Aminobutyric Acid-ergic Agonist Start: 03-13-2024 take 5 mg by mouth once daily at bedtime Zolpidem Active 5 MG PO Daily at bedtime 90 90 March 13, 2024 12:00am Start: 10-26-2023 End: 03-13-2024 take 10 mg by mouth once daily at bedtime Zolpidem Discontinued 10 MG PO Daily at bedtime March 07, 2024 11:15am March 13, 2024 8:35am Start: 10-11-2023 End: 10-26-2023 take 10 mg by mouth once daily at bedtime Zolpidem Discontinued 10 MG PO Daily at bedtime October 11, 2023 1:00am October 26, 2023 3:57pm Start: 05-05-2019 End: 10-11-2023 take 10 mg by mouth once daily at bedtime Zolpidem Discontinued 10 MG PO Daily at bedtime May 05, 2019 12:00am October 11, 2023 5:25pm Completed/Discontinued Medications Medication Drug Class(es) Dates Sig (Normalized) Sig (Original) acetaminophen 325 mg / oxyCODONE hydrochloride 5 mg oral tablet (20 sources) Opioid Agonist Start: 10-26-2023 End: 01-17-2024 take 1 tablet by mouth every four hours Oxycodone-Acetamino phen Discontinued 1 TAB PO Q4H 27 05October 26, 2023 January 17, 2024 11:45am Start: 10-15-2023 End: 10-15-2023 take 1 tablet by mouth every four hours Oxycodone-Acetaminophen Discontinued 1 T AB PO Q4H 08 12October 15, 2023 October 15, 2023 2:48pm Start: 10-15-2023 End: 10-15-2023 take 1 tablet by mouth every four hours Oxycodone-Acetaminophen Discontinued 1 T AB PO Q4H 10 October 15, 2023 October 15, 2023 2:48pm Start: 10-15-2023 End: 10-15-2023 take 1 tablet by mouth every four hours Oxycodone-Acetaminophen Discontinued 1 T AB PO Q4H 10 October 15, 2023 October 15, 2023 2:48pm Start: 10-15-2023 End: 10-15-2023 take 1 tablet by mouth every four hours Oxycodone-Acetaminophen Discontinued 1 T AB PO Q4H 10 October 15, 2023 October 15, 2023 2:48pm Start: 10-15-2023 End: 10-15-2023 take 1 tablet by mouth every four hours Oxycodone-Acetaminophen Discontinued 1 T AB PO Q4H 10 October 15, 2023 October 15, 2023 2:48pm Start: 10-15-2023 End: 10-15-2023 take 1 tablet by mouth every four hours Oxycodone-Acetaminophen Discontinued 1 T AB PO Q4H 10 October 15, 2023 October 15, 2023 2:48pm Start: 10-15-2023 End: 10-15-2023 take 1 tablet by mouth every four hours Oxycodone-Acetaminophen Discontinued 1 T AB PO Q4H 10 October 15, 2023 October 15, 2023 1:48pm Start: 10-15-2023 End: 10-15-2023 take 1 tablet by mouth every four hours Oxycodone-Acetaminophen Discontinued 1 T AB PO Q4H 10 October 15, 2023 October 15, 2023 1:48pm Start: 10-15-2023 End: 10-15-2023 take 1 tablet by mouth every four hours Oxycodone-Acetaminophen Discontinued 1 T AB PO Q4H 10 October 15, 2023 October 15, 2023 1:48pm Start: 10-15-2023 take 1 tablet by alex th every four hours Oxycodone-Acetaminophen Active 1 TAB PO Q4H 10 October 15, 2023 Start: 10-15-2023 End: 10-26-2023 take 1 tablet by mouth every four hours Oxycodone-Acetaminophen Discontinued 1 T AB PO Q4H October 15, 2023 2:48pm October 26, 2023 3:57pm ALPRAZolam 0.5 mg oral tablet (10 sources) Benzodiazepine Start: 03-06-2019 Xanax 0.5 MG t joby 1 tablet by mouth 1/2 hour prior to MRI. May repeat in 1/2 hr if needed Orally for 1 days Feb, Not-Taking aspirin 81 mg oral tablet (20 sources) Platelet Aggregation Inhibitor, Nonsteroidal Anti-inflammatory Drug Start: 01-04-2024 End: 01-04-2024 take 81 mg by mouth once daily Aspirin Discontinued 81 MG PO Daily January 04, 2024 11:35am January 04, 2024 11:52am Start: 10-27-2023 End: 01-04-2024 take 81 mg by mouth twice daily Aspirin Discontinued 81 MG PO Twice daily 40 October 27, 2023 1:00am January 04, 2024 11:36am Start: 10-11-2023 End: 10-26-2023 take 81 mg by mouth once daily Aspirin Discontinued 81 MG PO Daily October 11, 2023 1:00am October 26, 2023 3:57pm Start: 05-05-2019 End: 01-25-2025 take 81 mg by mouth once daily Aspirin Active 81 MG PO Daily 0 November 03, 2023 1:00am atorvastatin 80 mg oral tablet (20 sources) HMG-CoA Reductase Inhibitor Start: 05-05-2019 End: 06-06-2024 take 80 mg by mouth once daily at bedtime Atorvastatin Discontinued 80 MG PO Daily at bedtime December 24, 2023 10:57am December 30, 2023 9:45am blood-glucose sensor (FreeStyle Rocio 3 Sensor) (6 sources) Start: 01-14-2024 End: 02-24-2024 blood-glucose sensor (FreeStyle Rocio 3 Sensor) Discontinued .Route January 14, 2024 1:00am February 24, 2024 8:39am Start: 01-14-2024 blood-glucose sensor (FreeStyle Rocio 3 Sensor) Active .Route January 14, 2024 1:00am ciprofloxacin 500 mg oral tablet (20 sources) Quinolone Antimicrobial Start: 10-11-2023 End: 10-15-2023 take 500 mg by mouth twice daily Ciprofloxacin Hcl Discontinued 500 MG PO Twice daily October 11, 2023 1:00am October 15, 2023 1:15pm Start: 10-07-2023 take 1 tablet by alex every twelve hours Ciprofloxacin HCl 500 MG 1 tablet Orally every 12 hrs for 7 days Sep, Active Start: 07-19-2023 take 1 tablet by alex every twelve hours Ciprofloxacin HCl 250 MG 1 tablet Orally every 12 hrs for 5 day(s) Jul, Active Start: 11-23-2022 take 1 tablet by alex every twelve hours Cipro 250 MG 1 tablet Orally every 12 hrs for 3 day(s) Nov, Active Ciprofloxacin No t-Taking/PRN Ciprofloxacin Ac tive clindamycin 150 mg oral capsule (6 sources) Lincosamide Antibacterial Start: 09-15-2021 take 4 capsules by mouth every hour Clindamycin HCl - 150 MG Oral Capsule TAKE 4 CAPSULES BY MOUTH 1 HOUR PRIOR TO DENTAL APPOINTMENT Quantity: 12 Refills: 0 Ordered: 15-Sep-2021 DO Start : 15-Sep-2021 Active take [address] [facility] three times daily clindamycin (Cleocin) 150 mg capsule Layo e 1 capsule (150 mg) by mouth 3 times a day. 0 Active cyclobenzaprine hydrochloride 10 mg oral tablet (14 sources) Muscle Relaxant Start: 05-16-2019 End: 10-11-2023 take 10 mg by mouth three times daily Cyclobenzaprine Discontinued 10 MG PO Three times daily 50 May 16, 2019 12:00am October 11, 2023 5:25pm cycloSPORINE (20 sources) Calcineurin Inhibitor Immunosuppressant Start: 05-05-2019 End: 10-11-2023 take 1 drop(s) into the eye(s) twice daily Cyclosporine Discontinued 1 DROPS EYE-BOTH Twice daily May 05, 2019 12:00am October 11, 2023 5:25pm Start: 05-05-2019 End: 10-11-2023 take 1 drop(s) into the eye(s) twice daily Cyclosporine Discontinued 1 DROPS EYE-BOTH Twice daily May 04, 2019 11:00pm October 11, 2023 4:25pm Start: 05-05-2019 take 1 drop(s) into the eye(s) twice daily Cyclosporine Active 1 DROPS EYE-BOTH Twice daily May 05, 2019 12:00am take 1 drop(s) into the eye(s) twice daily cycloSPORINE 0.05 % 1 drop into affected eye Ophthalmic Twice a day Active Cyclosporine (Restasis) 0.05 % Dropperette (20 sources) Start: 10-26-2023 End: 06-07-2024 take 1 drop(s) into the eye(s) every twelve hours Cyclosporine (Restasis) 0.05 % Dropperette Discontinued 1 DROPS EYE-BOTH October 26, 2023 1:00am June 07, 2024 11:22am Start: 10-26-2023 take 1 drop(s) into the eye(s) every twelve hours Cyclosporine (Restasis) 0.05 % Dropperette Active 1 DROPS EYE-BOTH October 26, 2023 1:00am Start: 10-26-2023 take 1 drop(s) into the eye(s) every twelve hours Cyclosporine (Restasis) 0.05 % Dropperette Active 1 DROPS EYE-BOTH October 26, 2023 12:00am Start: 10-11-2023 End: 10-26-2023 take 1 drop(s) into the eye(s) every twelve hours Cyclosporine (Restasis) 0.05 % Dropperette Discontinued 1 DROPS EYE-BOTH October 11, 2023 1:00am October 26, 2023 3:57pm Start: 10-11-2023 End: 10-26-2023 take 1 drop(s) into the eye(s) every twelve hours Cyclosporine (Restasis) 0.05 % Dropperette Discontinued 1 DROPS EYE-BOTH October 11, 2023 12:00am October 26, 2023 2:57pm Start: 10-11-2023 take 1 drop(s) into the eye(s) every twelve hours Cyclosporine (Restasis) 0.05 % Dropperette Active 1 DROPS EYE-BOTH October 11, 2023 12:00am D-Mannose (6 sources) Start: 01-14-2024 End: 01-17-2024 take 1 mg by mouth once daily D-Mannose (Azo D-Mannose) 500 mg capsule Discontinued MG PO Daily January 14, 2024 1:00am January 17, 2024 11:36am 12 hr dextromethorphan hydrobromide 30 mg / guaiFENesin 600 mg extended release oral tablet (15 sources) Uncompetitive O-lbkgvz-Z-aspartat e Receptor Antagonist, Sigma-1 Agonist Start: 11-03-2023 End: 03-07-2024 take 1 tablet by mouth every twelve hours Dextromethorphan- Guaifenesin (Mucinex Dm) 30-600 mg tablet extended release 12 hr Discontinued 1 TAB PO Every 12 hours January 17, 2024 11:37am March 07, 2024 11:11am docusate sodium 100 mg oral capsule (20 sources) Start: 10-26-2023 End: 03-07-2024 take 100 mg by mouth twice daily Docusate Sodium Discontinued 100 MG PO Twice daily January 17, 2024 11:37am March 07, 2024 11:12am take 1 tablet by alex th every twenty-four hours Docusate Sodium 100 MG 1 tablet as needed Orally Once a day Active empagliflozin 25 mg oral tablet (12 sources) Sodium-Glucose Cotransporter 2 Inhibitor Start: 08-13-2022 End: 01-26-2024 take 1 tablet by mouth once daily Jardiance 25 mg Take 1 tablet (25 mg) by mouth once daily. 0 05/07/2023 01/26/2024 Discontinued (Discontinued by another clinician) 0.4 ml enoxaparin sodium 100 mg/ml prefilled syringe (10 sources) Low Molecular Weight Heparin Start: 10-15-2023 End: 10-26-2023 Enoxaparin (Lovenox) 40 mg/0.4 mL Syringe Discontinued 40 MG SUBCUT DAILY@10 4 October 15, 2023 1:00am October 26, 2023 3:57pm fluticasone propionate 0.05 mg/actuat metered dose nasal spray (14 sources) Corticosteroid Start: 05-05-2019 End: 10-11-2023 Fluticasone Propionate Discontinued 1 SPRAY INTRANASAL Daily May 05, 2019 12:00am October 11, 2023 5:25pm furosemide 40 mg oral tablet (20 sources) Loop Diuretic Start: 12-13-2023 End: 12-15-2024 take 40 mg by mouth once daily Furosemide Discontinued 40 MG PO Daily January 04, 2024 1:00am March 07, 2024 11:13am Start: 08-14-2021 take 1 tablet by alex th twice daily Furosemide 40 MG Oral Tablet take 1 tablet by mouth twice a day Quantity: 180 Refills: 3 Ordered: 14-Aug-2021 Yusuf Hayward MD Start : 14-Aug-2021 Active Start: 05-05-2019 End: 10-11-2023 take 40 mg by mouth once daily Furosemide Discontinued 40 MG PO Daily May 05, 2019 12:00am October 11, 2023 5:25pm take 1 tablet by alex th every twenty-four hours Furosemide 20 MG 1 tablet Orally Once a day for 30 day(s) Not-Taking gabapentin 300 mg oral capsule (14 sources) Anti-epileptic Agent Start: 05-05-2019 End: 10-11-2023 take 300 mg by mouth three times daily Gabapentin Discontinued 300 MG PO Three times daily May 05, 2019 12:00am October 11, 2023 5:25pm hyaluronate (20 sources) Start: 09-02-2020 Gel-One Aug, 3 mL Insulin Aspart U-100 (Novolog Flexpen U-100 Insulin) 100 unit/mL (3 mL) Insulin Pen (9 sources) Start: 10-26-2023 End: 01-17-2024 inject 1 dose by subcutaneous injection once at mealtime Insulin Aspart U-100 (Novolog Flexpen U-100 Insulin) 100 unit/mL (3 mL) Insulin Pen Discontinued 1 sliding scale dose SUBCUT 3X/Day with meals and bedtime October 26, 2023 1:00am January 17, 2024 11:42am Start: 10-26-2023 inject 1 dose by sub cutaneous injection once at mealtime Insulin Aspart U-100 (Novolog Flexpen U-100 Insulin) 100 unit/mL (3 mL) Insulin Pen Active 1 sliding scale dose SUBCUT 3X/Day with meals and bedtime October 26, 2023 12:00am Insulin Degludec (Tresiba Flextouch U-100) 100 unit/mL (3 mL) Insulin Pen (10 sources) Start: 10-11-2023 End: 10-26-2023 inject 10 [IU] by subcutaneous injection once daily Insulin Degludec (Tresiba Flextouch U-100) 100 unit/mL (3 mL) Insulin Pen Discontinued 10 UNIT SUBCUT Daily October 11, 2023 1:00am October 26, 2023 3:57pm Start: 10-11-2023 End: 10-26-2023 inject 10 [IU] by subcutaneous injection once daily Insulin Degludec (Tresiba Flextouch U-100) 100 unit/mL (3 mL) Insulin Pen Discontinued 10 UNIT SUBCUT Daily October 11, 2023 12:00am October 26, 2023 2:57pm Start: 10-11-2023 inject 10 [IU] by snell bcutaneous injection once daily Insulin Degludec (Tresiba Flextouch U-100) 100 unit/mL (3 mL) Insulin Pen Active 10 UNIT SUBCUT Daily October 11, 2023 12:00am 3 ml insulin lispro 100 unt/ml pen injector (7 sources) Insulin Analog Start: 01-17-2024 End: 02-18-2024 inject 1 dose by subcutaneous injection once before mealtime Insulin Lispro (Humalog Kwikpen Insulin) 100 unit/mL insulin pen Discontinued 1 sliding scale dose SUBCUT 3x/Day before meals & bedtime January 17, 2024 12:00am February 18, 2024 2:04pm On Hold: escalate other therapy Start: 10-26-2023 End: 01-26-2024 HumaLOG KwikPen Insulin 100 unit/mL injection Inject under the skin 3 times a day with meals. 0 10/26/2023 01/26/2024 Discontinued (Discontinued by another clinician) levoFLOXacin 500 mg oral tablet (10 sources) Quinolone Antimicrobial Start: 10-15-2023 End: 10-26-2023 take 500 mg by mouth once daily Levofloxacin Discontinued 500 MG PO Daily 5 5 October 15, 2023 1:00am October 26, 2023 3:57pm x5D levothyroxine sodium 0.05 mg oral tablet (20 sources) l-Thyroxine Start: 05-05-2019 End: 10-26-2023 take 50 ug by mouth once daily Levothyroxine Discontinued 50 MCG PO Daily October 11, 2023 1:00am October 26, 2023 3:57pm take 1 tablet by mouth once donn y Levothyroxine Sodium 50 MCG TAKE 1 TABLET BY MOUTH EVERY DAY for 90 Active 3 ml liraglutide 6 mg/ml pen injector (11 sources) GLP-1 Receptor Agonist Start: 10-11-2023 End: 10-26-2023 Liraglutide (Victoza 2-Sterling) 0.6 mg/0.1 mL (18 mg/3 mL) Pen Injector Discontinued 18 MG SUBCUT Daily October 11, 2023 1:00am October 26, 2023 3:57pm lisinopril 5 mg oral tablet (20 sources) Angiotensin Converting Enzyme Inhibitor Start: 05-05-2019 End: 10-12-2023 take 5 mg by mouth once daily Lisinopril Discontinued 5 MG PO Daily October 11, 2023 1:00am October 12, 2023 5:27pm [place] 3 1000 MG (20 sources) take 1 capsule by mouth once daily as needed [place] 3 1000 MG 1 capsule Orally Once a day Not-Taking/PRN take 1 capsule by mouth once dinorah ly [place] 3 1000 MG 1 capsule Orally Once a day Active omeprazole 20 mg delayed release oral capsule (11 sources) Proton Pump Inhibitor Start: 10-11-2023 End: 10-26-2023 take 20 mg by mouth once daily Omeprazole Discontinued 20 MG PO Daily October 11, 2023 1:00am October 26, 2023 3:57pm oxyCODONE hydrochloride 5 mg oral capsule (14 sources) Opioid Agonist Start: 05-16-2019 End: 10-11-2023 take 5-10 mg by mouth every six hours Oxycodone Discontinued 5 - 10 MG PO Q6H 60 May 16, 2019 October 11, 2023 5:25pm pantoprazole 40 mg delayed release oral tablet (16 sources) Proton Pump Inhibitor Start: 10-26-2023 End: 01-17-2024 take 40 mg by mouth once daily Pantoprazole Discontinued 40 MG PO Daily October 26, 2023 1:00am January 17, 2024 11:45am pioglitazone 15 mg oral tablet (20 sources) Peroxisome Proliferator Receptor alpha Agonist, Peroxisome Proliferator Receptor gamma Agonist, Thiazolidinedione Start: 10-26-2023 End: 01-17-2024 take 45 mg by mouth once daily Pioglitazone Discontinued 45 MG PO DAILY@0800 30 October 26, 2023 1:00am January 17, 2024 11:46am Start: 11-10-2021 End: 01-26-2024 take 1 tablet by mouth once daily Pioglitazone HCl - 30 MG Oral Tablet TAKE 1 TABLET BY MOUTH EVERY DAY Quantity: 90 Refills: 0 Ordered: 03-Dec-2021 DO Start : 10-Nov-2021 Active take 1 tablet by alex th every twenty-four hours Pioglitazone HCl 15 MG 1 tablet Orally Once a day Active take 1 tablet by alex th every twenty-four hours Pioglitazone HCl 45 MG 1 tablet Orally Once a day for 90 days Active potassium chloride 10 meq extended release oral tablet (20 sources) Start: 10-26-2023 End: 06-05-2024 Potassium Chloride (Klor-Con 10) 10 mEq tablet extended release Discontinued 10 MEQ PO Daily May 18, 2024 1:56pm June 05, 2024 2:19pm Start: 11-10-2021 End: 10-26-2023 Potassium Chloride (Klor-Con M10) 10 mEq tablet,ER particles/crystals Discontinued 10 MEQ PO Daily October 11, 2023 1:00am October 26, 2023 3:57pm Start: 05-05-2019 End: 10-11-2023 take 10 mEq by mouth once daily Potassium Chloride Discontinued 10 MEQ PO Daily May 05, 2019 12:00am October 11, 2023 5:25pm take 1 tablet by alex th every twelve hours Potassium Chloride [place] ER 10 MEQ 1 tablet with food Orally Twice a day Active Prednisone (14 sources) Start: 05-16-2019 End: 10-11-2023 Prednisone Discontinued 1 do se pk PO per package directions May 16, 2019 12:00am October 11, 2023 5:25pm take 4 tabs for 3 days then take 3 tabs for 3 days then take 2 tabs for 3 days then take 1 tab for 3 days Start: 05-16-2019 End: 10-11-2023 Prednisone Discontinued 1 do se pk PO per package directions May 15, 2019 11:00pm October 11, 2023 4:25pm take 4 tabs for 3 days then take 3 tabs for 3 days then take 2 tabs for 3 days then take 1 tab for 3 days Start: 05-16-2019 Prednisone Act lv 1 dose pk PO per package directions May 16, 2019 12:00am take 4 tabs for 3 days then take 3 tabs for 3 days then take 2 tabs for 3 days then take 1 tab for 3 days Start: 05-16-2019 Prednisone Act lv 1 dose pk PO per package directions May 15, 2019 11:00pm take 4 tabs for 3 days then take 3 tabs for 3 days then take 2 tabs for 3 days then take 1 tab for 3 days rosuvastatin calcium 20 mg oral tablet (13 sources) HMG-CoA Reductase Inhibitor Start: 07-11-2023 End: 01-26-2024 take 1 tablet by mouth once daily rosuvastatin (Crestor) 20 mg tablet Take 1 tablet (20 mg) by mouth once daily. 0 07/11/2023 01/26/2024 Discontinued (Discontinued by another clinician) Start: 01-14-2023 take 1 tablet by alex th once daily Rosuvastatin Calcium 20 MG Oral Tablet TAKE 1 TABLET DAILY. Quantity: 90 Refills: 3 Ordered: 14-Jan-2023 Yusuf Hayward MD Start : 14-Jan-2023 Active new start Rosuvastatin Joseph cium Not-Taking/PRN Rosuvastatin Joseph cium Active SITagliptin 100 mg oral tablet (11 sources) Dipeptidyl Peptidase 4 Inhibitor Start: 10-11-2023 End: 10-26-2023 take 1 tablet by mouth once daily Sitagliptin Phosphate (Januvia) 100 mg Tablet Discontinued 100 MG PO Daily October 11, 2023 1:00am October 26, 2023 3:57pm sulfamethoxazole 800 mg / trimethoprim 160 mg oral tablet (14 sources) Dihydrofolate Reductase Inhibitor Antibacterial, Sulfonamide Antimicrobial Start: 05-16-2019 End: 10-11-2023 take 1 tablet by mouth every twelve hours Sulfamethoxazole- Trimethoprim (Bactrim Ds) 800-160 mg Tablet Discontinued 1 TAB PO Q12H May 16, 2019 12:00am October 11, 2023 5:25pm tiZANidine 2 mg oral tablet (10 sources) Central alpha-2 Adrenergic Agonist take 1 tablet by mouth every eight hours tiZANidine HCl 2 MG 1 tablet as needed Orally Three times a day Not-Taking tobramycin 3 mg/ml ophthalmic solution (1 source) Aminoglycoside Antibacterial Start: 09-27-2023 End: 01-26-2024 take 1 drop(s) into the eye(s) every six hours tobramycin (Tobrex) 0.3 % ophthalmic solution INSTILL 1 DROP INTO AFFECTED EYE EVERY 6 HOURS FOR 7 DAYS 0 09/27/2023 01/26/2024 Discontinued (Discontinued by another clinician) traMADol hydrochloride 50 mg oral tablet (20 sources) Opioid Agonist Start: 08-18-2021 End: 01-26-2024 take 1 tablet by mouth every eight hours as needed traMADol (Ultram) 50 mg tablet Take 1 tablet (50 mg) by mouth every 8 hours if needed. 0 08/18/2021 01/26/2024 Discontinued (Discontinued by another clinician) Start: 08-18-2021 traMADol HCl - 50 MG Oral Tablet Quantity: 60 Refills: 0 Ordered: 18-Aug-2021 DO Start : 18-Aug-2021 Active Start: 05-05-2019 End: 05-16-2019 take 50 mg by mouth once daily Tramadol Discontinued 5 0 MG PO Daily May 05, 2019 12:00am May 16, 2019 7:34am Triamcinolone (20 sources) Corticosteroid Start: 05-27-2020 Kenalog -40 mg May, 40 mg zinc gluconate 50 mg oral tablet (16 sources) Start: 11-03-2023 End: 02-18-2024 take 50 mg by mouth once daily Zinc Gluconate Discontinued 50 MG PO Daily November 03, 2023 1:00am February 18, 2024 2:06pm Problems Active Problems Problem Classification Problem Date Documented Date Episodic/Chronic Cancer; other and unspecified primary (20 sources) H/O: malignant neoplasm; Translations: [Personal history of malignant neoplasm, unspecified] Episodic Cancer; other and unspecified primary (1 source) Personal history of malignant neoplasm, unspecified; Translations: [History of cancer] Episodic Chronic ulcer of skin (8 sources) Pressure ulcer of unspecified site, stage 1; Translations: [Healing decubitus ulcer, stage 1] Chronic Coronary atherosclerosis and other heart disease (20 sources) Atherosclerotic heart disease of [place] coronary artery without angina pectoris; Translations: [Coronary arteriosclerosis] Onset: 09-25-2013 10-11-2023 Chronic Coronary atherosclerosis and other heart disease (3 sources) Presence of coronary angioplasty implant and graft; Translations: [Coronary angioplasty status] Onset: 12-13-2018 Episodic Diabetes mellitus with complications (20 sources) Type 2 diabetes mellitus with hyperglycemia; Translations: [Type 2 diabetes mellitus] Onset: 11-28-2022 Chronic Diabetes mellitus without complication (20 sources) Type 2 diabetes mellitus without complications; Translations: [Diabetes mellitus] Onset: [birth year]08[birth year]1959 10-11-2023 Chronic Disorders of lipid metabolism (20 sources) Hyperlipidemia; Translations: [Other and unspecified hyperlipidemia] Onset: 12-22-2022 10-11-2023 Chronic Essential hypertension (20 sources) Essential (primary) hypertension; Translations: [Benign essential hypertension] Onset: 12-13-2018 Chronic Fluid and electrolyte disorders (15 sources) Hypokalemia; Translations: [Hypokalemia] Onset: 12-13-2018 Episodic Fracture of upper limb (8 sources) Nondisplaced fracture of neck of left radius, initial encounter for closed fracture; Translations: [Displaced fracture of distal phalanx of left index finger, initial encounter for closed fracture] Onset: 12-22-2022 Episodic Headache; including migraine (2 sources) Migraine with aura; Translations: [Migraine with aura, without mention of intractable migraine without mention of status migrainosus] Onset: 07-06-2016 Chronic Immunizations and screening for infectious disease (14 sources) Patient encounter status; Translations: [Other specified vaccination] Onset: 12-22-2022 Resolved: 01-16-2022 01-14-2024 Episodic Menopausal disorders (1 source) Hormone replacement therapy; Translations: [HORMONE REPLACEMENT THERAPY] Onset: 12-22-2022 Episodic Nutritional deficiencies (13 sources) Vitamin D deficiency; Translations: [Vitamin D deficiency, unspecified] Chronic Osteoarthritis (20 sources) Arthritis of left knee; Translations: [Unilateral primary osteoarthritis, left knee] Chronic Other acquired deformities (2 sources) Acquired postural kyphosis; Translations: [Unspecified kyphosis, site unspecified] Onset: 02-08-2014 Chronic Other aftercare (2 sources) assisted (current) use of aspirin; Translations: [GROUP HOME (CURRENT) USE OF ASPIRIN] Onset: 12-13-2018 Episodic Other aftercare (1 source) Other manager long term care (current) drug therapy; Translations: [OTH GROUP HOME CURRENT DRUG THERAPY] Onset: 12-22-2022 Episodic Other circulatory disease (1 source) Other specified symptoms and signs involving the circulatory and respiratory systems Episodic Other connective tissue disease (6 sources) History of hemiarthroplasty of right hip; Translations: [Presence of right artificial hip joint] Chronic Other connective tissue disease (6 sources) Presence of right artificial hip joint; Translations: [Hip joint replacement] Chronic Other connective tissue disease (6 sources) History of repair of hip joint; Translations: [Presence of right artificial hip joint] 01-04-2024 Chronic Other diseases of bladder and urethra (2 sources) Overactive bladder; Translations: [Overactive bladder] Chronic Other ear and sense organ disorders (2 sources) Otitis externa; Translations: [Unspecified otitis externa, unspecified ear] Onset: 09-25-2013 Chronic Other injuries and conditions due to external causes (1 source) Other specified injuries of head, initial encounter; Translations: [OTH SPEC INJURIES HEAD INITIAL ENC] Onset: 12-22-2022 Episodic Other injuries and conditions due to external causes (2 sources) History of fall; Translations: [History of falling] Episodic Other lower respiratory disease (18 sources) Lung mass; Translations: [Other nonspecific abnormal finding of lung field] 10-13-2023 Episodic Other lower respiratory disease (18 sources) Other nonspecific abnormal finding of lung field; Translations: [Swelling, mass, or lump in chest] Onset: 06-09-2024 10-15-2023 Episodic Other nervous system disorders (1 source) Metabolic encephalopathy; Translations: [METABOLIC ENCEPHALOPATHY] Onset: 12-13-2018 Chronic Other nervous system disorders (20 sources) Chronic pain; Translations: [Other chronic pain] Chronic Other nervous system disorders (10 sources) Postoperative pain ; Translations: [Other acute postprocedural pain] 10-13-2023 Episodic Other non-traumatic joint disorders (3 sources) Pain in left elbow; Translations: [PAIN IN LEFT ELBOW] Onset: 12-18-2022 Episodic Other non-traumatic joint disorders (4 sources) Arthralgia of the pelvic region and thigh; Translations: [Pain in left hip] Onset: 11-28-2018 Episodic Other non-traumatic joint disorders (2 sources) Arthralgia of the lower leg; Translations: [Pain in left knee] Episodic Other nutritional; endocrine; and metabolic disorders (1 source) Body mass index 25-29 - overweight; Translations: [Body Mass Index 28.0-28.9, adult] Episodic Other nutritional; endocrine; and metabolic disorders (1 source) Overweight; Translations: [Overweight] Episodic Other nutritional; endocrine; and metabolic disorders (1 source) Body mass index (BMI) 25.0-25.9, adult Episodic Other nutritional; endocrine; and metabolic disorders (8 sources) Body mass index (BMI) 26.0-26.9, adult; Translations: [Body Mass Index 26.0-26.9, adult] Episodic Other nutritional; endocrine; and metabolic disorders (6 sources) Overweight in adulthood with body mass index of 25 or more but less than 30; Translations: [Body mass index (BMI) 26.0-26.9, adult] 01-14-2024 Episodic Other upper respiratory infections (2 sources) Chronic maxillary sinusitis; Translations: [Chronic maxillary sinusitis] Onset: 04-16-2017 Chronic Other upper respiratory infections (5 sources) Acute maxillary sinusitis; Translations: [Acute maxillary sinusitis, unspecified] Onset: 07-06-2016 Episodic Residual codes; unclassified (2 sources) Altered mental status, unspecified; Translations: [ALTERED MENTAL STATUS, UNSPECIFIED] Onset: 12-13-2018 Episodic Residual codes; unclassified (3 sources) Swelling - edema - symptom; Translations: [Edema] Episodic Residual codes; unclassified (5 sources) Body mass index 20-24 - normal; Translations: [Body Mass Index between 19-24, adult] Episodic Residual codes; unclassified (5 sources) Edema; Translations: [Edema] Onset: 11-02-2023 01-26-2024 Episodic Residual codes; unclassified (20 sources) History of left mastectomy; Translations: [Acquired absence of left breast and nipple] Episodic Residual codes; unclassified (20 sources) Insomnia; Translations: [Insomnia, unspecified] 10-26-2023 Episodic Residual codes; unclassified (2 sources) Localized edema; Translations: [Localized edema] Episodic Residual codes; unclassified (2 sources) Family history of breast cancer; Translations: [Family history of malignant neoplasm of breast] Episodic Residual codes; unclassified (2 sources) Requires influenza virus vaccination; Translations: [Need for prophylactic vaccination and inoculation, Influenza] Episodic Residual codes; unclassified (2 sources) Family history of diabetes mellitus; Translations: [Family history of diabetes mellitus] Episodic Residual codes; unclassified (10 sources) Other specified postprocedural states; Translations: [Other postprocedural status] 12-08-2023 Episodic Residual codes; unclassified (2 sources) Never smoked tobacco; Translations: [Other specified health status] Onset: 01-26-2024 01-26-2024 Episodic Residual codes; unclassified (2 sources) Edema, unspecified; Translations: [Edema, unspecified] Onset: 11-02-2023 Episodic Septicemia (except in labor) (2 sources) Septicemia (except in labor); Translations: [Sepsis, unspecified organism] Onset: 12-13-2018 Spondylosis; intervertebral disc disorders; other back problems (20 sources) Degeneration of intervertebral disc; Translations: [Other intervertebral disc degeneration, lumbar region] Chronic Spondylosis; intervertebral disc disorders; other back problems (20 sources) Lumbago with sciatica, unspecified side; Translations: [Sciatica] Onset: 12-13-2018 05-16-2019 Episodic Superficial injury; contusion (5 sources) Contusion of other part of head, initial encounter; Translations: [Abrasion of other part of head, initial encounter] Onset: 12-22-2022 Episodic Thyroid disorders (20 sources) Hypothyroidism, unspecified; Translations: [Hypothyroidism] Onset: 12-13-2018 Chronic Unclassified (1 source) C/O ALTERED MENTAL STATUS Onset: 12-13-2018 Unclassified (1 source) Presence of right artificial hip joint; Translations: [Presence of right artificial hip joint] Onset: 01-10-2024 Urinary tract infections (7 sources) Urinary tract infection, site not specified; Translations: [Urinary tract infectious disease] Onset: 12-13-2018 Episodic Viral infection (14 sources) Herpes zoster with nervous system complication; Translations: [Herpes zoster with unspecified nervous system complication] Onset: 04-01-2017 10-27-2023 Episodic Viral infection (1 source) COVID-19; Translations: [COVID-19] Onset: 10-15-2023 Past or Other Problems Problem Classification Problem Date Documented Date Episodic/Chronic Acute bronchitis (2 sources) Acute bronchitis; Translations: [Acute bronchitis, unspecified] Onset: 10-23-2014 Episodic Administrative/social admission (20 sources) Other reduced mobility; Translations: [Impaired mobility and activities of daily living] Onset: 10-11-2023 10-13-2023 Episodic Allergic reactions (6 sources) Allergy status to other drugs, medicaments and biological substances status; Translations: [Allergy status to penicillin] Onset: 09-23-2015 Episodic Bacterial infection; unspecified site (2 sources) Bacterial infectious disease; Translations: [Bacterial infection, unspecified, in conditions classified elsewhere and of unspecified site] Onset: 10-13-2017 Episodic Cancer of breast (20 sources) Personal history of primary malignant neoplasm of breast; Translations: [Personal history of malignant neoplasm of breast] Onset: 01-12-2014 10-13-2023 Episodic E Codes: Fall (15 sources) Fall on same level from slipping, tripping and stumbling with subsequent striking against unspecified object, initial encounter; Translations: [Fall] Onset: 12-22-2022 10-11-2023 Episodic Fracture of neck of femur (hip) (20 sources) Closed fracture of femur, subcapital; Translations: [Unspecified intracapsular fracture of right femur, initial encounter for closed fracture] Onset: 10-11-2023 10-11-2023 Episodic Genitourinary symptoms and ill-defined conditions (13 sources) Frequency of micturition; Translations: [Dysuria] Onset: 07-01-2015 Episodic Malaise and fatigue (2 sources) Asthenia; Translations: [Weakness] Onset: 01-16-2019 Episodic Mycoses (15 sources) Candidiasis; Translations: [Candidiasis of other urogenital sites] Onset: 07-05-2014 11-11-2023 Episodic Nonmalignant breast conditions (4 sources) Discharge from nipple; Translations: [Nipple discharge] Onset: 07-01-2015 Episodic Nonspecific chest pain (3 sources) Chest pain; Translations: [Chest pain, unspecified] Onset: 05-23-2015 Episodic Other aftercare (1 source) assisted (current) use of insulin; Translations: [GROUP HOME CURRENT USE OF INSULIN] Onset: 03-04-2022 Episodic Other connective tissue disease (2 sources) Muscle pain; Translations: [MYALGIA, UNSPECIFIED SITE] Onset: 08-18-2018 Episodic Other ear and sense organ disorders (2 sources) Otalgia; Translations: [Otalgia, unspecified ear] Onset: 05-06-2015 Episodic Other nervous system disorders (8 sources) Other acute postprocedural pain; Translations: [Other acute postoperative pain] Onset: 10-11-2023 10-15-2023 Episodic Other skin disorders (2 sources) Inflamed seborrheic keratosis; Translations: [Inflamed seborrheic keratosis] Onset: 02-15-2014 Episodic Residual codes; unclassified (8 sources) Insomnia, unspecified; Translations: [Insomnia, unspecified] Onset: 10-15-2023 Episodic Residual codes; unclassified (3 sources) Other specified health status; Translations: [Other specified health status] Onset: 10-11-2023 Episodic Syncope (2 sources) Syncope and collapse; Translations: [Syncope and collapse] Onset: 07-31-2016 Episodic Unclassified (5 sources) Never smoked tobacco; Translations: [Never a smoker] Unclassified (1 source) Onset: 01-26-2024 01-26-2024 Results Test Name Value Interpretation Reference Range Facility CT chest wo [facility] 06-07-2024 CT chest wo [facility] [place] [address] CT Scan Report Signed Patient: Heidi Palmer MR#: [id number] 13 : 1940 Acct:[id number] Age/Sex: 84 / F ADM Date: 06/07/24 Loc: Room: Type: [facility] Attending Dr: Tosha Patel MD Copies to: Tosha Patel MD Ordering Provider: Tosha Patel MD Date of Service: 06/07/24 CT/CT chest wo con: LUNG MASS CT CHEST WITHOUT IV CONTRAST: CLINICAL HISTORY: Lung nodule follow-up history of lung and breast cancer. COMPARISON: CT chest 10/11/2023 TECHNIQUE: Spiral images were obtained through the chest without IV contrast. This CT exam was performed using one or more following dose reduction techniques: Automated exposure control, adjustment of the mA and/or kV according to patient size, or use of iterative reconstruction technique. FINDINGS: Mediastinum:Thoracic aorta demonstrates moderate calcification without incident. Pulmonary trunk appears nondilated. No pleural effusion. No lymphadenopathy. The esophagus is grossly unremarkable. Lungs:The masslike areas of consolidation appear to have essentially resolved since the prior CT study with residual scarring involving the lingula. There is residual tree-in-bud nodularity involving the left upper lobe and lingula and to lesser degree left lower lobe. No pneumothorax or pleural effusion. Abd:Cholelithiasis. No acute findings. Soft tissues/Bones: Left mastectomy changes. No axillary lymphadenopathy. Right breast is grossly unremarkable. Osseous structures demonstrate degenerative change. CT/CT chest wo con IMPRESSION: The masslike areas of consolidation seen on the prior study have essentially resolved. There is residual tree-in-bud nodularity involving the left upper lobe and lingula and to lesser degree left lower lobe. Findings suggest response to therapy. Repeat CT is recommended to ensure complete resolution. Impression dictated by: Anthony Benson Jr., DCharuOCharu06/07/2024 1:36 PM Dictation Location: [place] [address] Transcribed By: [facility] 06/07/24 1336 Dictated By: Anthony Benson Jr, DO 06/07/24 1325 Signed By: 06/07/24 1336 Normal [facility] HbA1c HPLC (Bld) [Mass fract ion]on 03-07-2024 HbA1c (Bld) [Mass fraction] 9.3 % [facility] No Panel Informationon 03-07 Bedside Glucose 230 [facility] No Panel Informationon 01-16 Bedside Glucose 146 [facility] XR hip RT min 2V(w/wo pelvis )*on 01-10-2024 XR hip RT min 2V(w/wo pelvis)* [facility] [place] [address] XRay Report Signed Patient: Heidi Palmer MR#: [id number] 13 : 1940 Acct:[id number] Age/Sex: 83 / F ADM Date: 01/10/24 Loc: [facility] Room: Type: [facility] Attending Dr: Ismael Booth MD Copies to: Ismael Booth MD Ordering Provider: Ismael Booth MD Date of Service: 01/10/24 XR/XR hip RT min 2V(w/wo pelvis)*: Z96.641 - Presence of right artificial hip joint RIGHT HIP - 2 views: CLINICAL HISTORY: Follow-up right hip hemiarthroplasty COMPARISON: Right hip 11/16/2023 FINDINGS: Right hip hemiarthroplasty without radiographic complication. Degenerative changes are seen involving the left hip, visualized lower lumbar spine and SI joints. XR/XR hip RT min 2V(w/wo pelvis)* IMPRESSION: NO EVIDENCE OF HARDWARE COMPLICATION.. Impression dictated by: Anthony Benson Jr., D.OCharu01/10/2024 2:02 PM Dictation Location: [place] [address] Transcribed By: CHEKO 01/10/24 1402 Dictated By: Anthony Benson Jr, DO 01/10/24 140 Signed By: 01/10/24 1402 Normal [facility] MM screening mammo RT w/CADo n 12-01-2023 MM screening mammo RT w/CAD [facility] [place] [address] Mammography Report Signed Patient: Heidi Palmer MR#: [id number] 13 : 1940 Acct:[id number] Age/Sex: 83 / F ADM Date: 12/01/23 Loc: Room: Type: [facility] Attending Dr: Tosha Patel MD Copies to: MD Tosha Ayala MD Ordering Provider: Tosha Patel MD Date of Service: 12/01/23 MM/MM screening mammo RT w/CAD: yearly screening CLINICAL DATA: Screening for malignancy. History of left-sided breast cancer status post mastectomy in 1998. SCREENING MAMMOGRAM - FULL FIELD DIGITAL WITH TOMOSYNTHESIS AND CAD COMPARISON:Mammograms dating back to 2014. Tomosynthesis craniocaudal and mediolateral oblique views of right breast were obtained using low- dose digital technique. This examination was reviewed with the aid of CAD. The breast tissue is composed of scattered fibroglandular densities. There are no dominant masses, typically malignant calcifications or architectural distortion. There has been no significant interval change. MM/MM screening mammo RT w/CAD IMPRESSION: NO MAMMOGRAPHIC EVIDENCE OF MALIGNANCY. ROUTINE FOLLOW-UP IS RECOMMENDED IN ONE YEAR. RESULT CODE: 1 Negative DENSITY CODE: 2 (approximately 25-50% glandular) FOLLOW UP: 1YR The false-negative rate of mammography is approximately 10-percent. Management of a palpable abnormality must be based on clinical grounds. Patient was entered into a reminder system with a target due date for the next mammogram. Impression dictated by: Anthony Benson Jr., D.O.12/01/2023 3:32 PM Dictation Location: [facility] Transcribed By: CHEKO 12/01/23 153 Dictated By: Anthony Benson Jr, DO 12/01/23 1530 Signed By: 12/01/23 1532 Normal [facility] ANDREIA Antinuclear Antibodieson 11-24-2023 Antinuclear Abs, IFA Negative Normal . [facility] Comment on above: Result Comment: Nega tive <1:80 Borderline 1:80 Positive >1:80 ICAP nomenclature: AC-0 For more information about Hep-2 cell patterns use ANApatterns.org, the official website for the International Consensus on Antinuclear Antibody (ANDREIA) Patterns (ICAP). Performed at: [facility] [employer] [id number] Chemical Plant Worker: José Manuel Petersen PhD, Phone: [phone] Performed By: #### B MP, DIFF CBC #### [address] ANCA Profile (ANCA+MPO+PR3)o n 11-24-2023 Antimyeloperoxidase (MPO) Abs <0.2 Normal 0.0-0.9 [facility] Comment on above: Performed By: #### B MP, DIFF CBC #### [address] Atypical pANCA <1:20 Normal Neg:<1:20 [facility] Comment on above: Result Comment: The atypical pANCA pattern has been observed in a significant percentage of patients with ulcerative colitis, primary sclerosing cholangitis and autoimmune hepatitis. Performed at: [facility] [address] [id number] Chemical Plant Worker: Jarod Rush MD, Phone: [phone] Performed at: [facility] [employer] [id number] Chemical Plant Worker: José Manuel Petersen PhD, Phone: [phone] Performed By: #### B MP, DIFF CBC #### [place] [address] [place] Cytoplasmic (C-ANCA) <1:20 Normal Neg:<1:20 [facility] Comment on above: Performed By: #### B MP, DIFF CBC #### [facility] [address] [place] [address] [place] Perinuclear (P-ANCA) <1:20 Normal Neg:<1:20 [facility] Comment on above: Result Comment: The presence of positive fluorescence exhibiting P-ANCA or C-ANCA patterns alone is not specific for the diagnosis of Marito's Granulomatosis (WG) or microscopic polyangiitis. Decisions about treatment should not be based solely on ANCA IFA results. The International ANCA Group Consensus recommends follow up testing of positive sera with both SC- 3 and MPO-ANCA enzyme immunoassays. As many as 5% serum samples are positive only by EIA. Ref. AM J Clin Pathol 1999;111:507-513. Performed By: #### B MP, DIFF CBC #### [address] Proteinase 3 (PR3) Antibodies <0.2 Normal 0.0-0.9 [facility] Comment on above: Result Comment: PERF ORMED BY: [place] [address] PATHOLOGIST SPRING BENDER MELODY WHEELER M.D. Performed By: #### B MP, DIFF CBC #### [address] Atypical perinuclear antineu trophil cytoplasmic antibodies measurementOrdered By: Tosha Patel on 11-24-2023 Neutrophil cytoplasmic Ab.perinuclear.atypical IF (S) [Titer] <1:20 titer Neg:<1:20 [facility] Comment on above: The atypical pANCA p attern has been observed in asignificant percentage of patients with ulcerative colitis,primary sclerosing cholangitis and autoimmune hepatitis.Performed at: - [address] [id number] Director: Jarod Rush MD, Phone: [phone] at: - [employer] [id number] Director: José Manuel Petersen PhD, Phone: [phone] Capillary blood glucose radhames urement by glucometer (mass/volume)Ordered By: Tosha Patel on 11-24-2023 Glucose [Mass/Vol] 82 mg/dL Normal [facility] Comment on above: Random Glucose Refer ence Range is dependent on time and content of last meal. Glucose of more than 200 mg/dL in a nonstressed, ambulatory subject supports the diagnosis of Diabetes Mellitus. Result Comment: [place] om Glucose Reference Range is dependent on time and content of last meal. Glucose of more than 200 mg/dL in a nonstressed, ambulatory subject supports the diagnosis of Diabetes Mellitus. PERFORMED BY: [place] [address] PATHOLOGIST SPRING BENDER MELODY WHEELER M.D. Performed By: #### G LULS #### Point of Care testing , Myeloperoxidase Ab [Units/vo lume] in Serum by ImmunoassayOrdered By: Tosha Barrientos on 11-24-2023 Myeloperoxidase Ab IA Qn (S) <0.2 units 0.0-0.9 [facility] No Panel InformationOrdered By: Tosha Patel on 11-24-2023 Perinuclear ANCA (p-ANCA) Antibody <1:20 titer Neg:<1:20 [facility] Comment on above: The presence of posi tive fluorescence exhibiting P-ANCA orC-ANCA patterns alone is not specific for the diagnosis ofWegener's Granulomatosis (WG) or microscopic polyangiitis.Decisions about treatment should not be based solely onANCA IFA results. The International ANCA Group Consensusrecommends follow up testing of positive sera with both SC-3 and MPO-ANCA enzyme immunoassays. As many as 5% serumsamples are positive only by EIA. Ref. AM J Clin Hbgppk7025;111:507-513. PET tumor init tx strat sb-m ton 11-24-2023 PET tumor init tx strat sb-mt [facility] Main [place] [address] [place] [address] Nuclear Medicine Report Signed Patient: Heidi Palmer MR#: [id number] 13 : 1940 Acct:[id number] Age/Sex: 83 / F ADM Date: 11/24/23 Loc: XT Room: Type: [facility] Attending Dr: Tosha Patel MD Copies to: MD Tosha Au MD Ordering Provider: Tosha Patel MD Date of Service: 11/24/23 PET/PET tumor init tx strat sb-mt: abnormal CT scan lung lesions PET/CT WITH FUSION CLINICAL DATA: Follow-up lung masses. COMPARISON: CT 10/11/2023 Following the intravenous administration of 12.41 mCi of FDG, SPECT imaging in 3 planes was performed from the level the orbits through the groin. Patient's blood glucose level at the time of injection was 82 mg/dL. Spiral unenhanced CT was also performed for anatomic localization. The PET and CT images were fused. This CT exam was performed using one or more following dose reduction techniques: Automated exposure control, adjustment of the mA and/or kV according to patient size, or use of iterative reconstruction technique. NECK: No enlarged or hypermetabolic cervical lymph nodes are identified. There is an enlarged nodular left thyroid lobe, without associated increased FDG uptake. Maxillary and sphenoid sinus disease is seen. CHEST: No enlarged or hypermetabolic mediastinal, hilar or axillary lymph nodes are present. There is a somewhat lobulated nodular area at the lingula that does show mild associated increased FDG uptake with maximum SUV of 2.9. The nodular focus within the left lower lobe also shows slight increased FDG uptake of 2. No other areas of pulmonary hypermetabolism are visualized. The discoid consolidation along the right major fissure on the comparison is resolving. There is an enlarging layering right pleural effusion. There are some areas of potential atelectasis bilaterally. A tiny pericardial effusion is again noted ABDOMEN/PELVIS: No abnormal hypermetabolism is associated with the liver or adrenal glands. No enlarged or hypermetabolic abdominal or pelvic lymph nodes are present. There is physiologic activity involving the urinary tract and bowel. Cholelithiasis is incidentally noted. There are scattered colonic diverticula. Patient has a right hip prosthesis. PET/PET tumor init tx strat sb-mt IMPRESSION: MILDLY HYPERMETABOLIC LINGULAR AND LEFT LOWER LOBE PULMONARY NODULARITY. FINDINGS ARE NOT DEFINITIVE FOR NEOPLASM AND INFECTIOUS OR INFLAMMATORY PROCESSES ARE STILL IN THE DIFFERENTIAL. CONTINUED CT FOLLOW-UP IS SUGGESTED. NO HYPERMETABOLIC ADENOPATHY. ENLARGING RIGHT PLEURAL EFFUSION AND CONTINUED MILD BILATERAL ATELECTASIS. INCIDENTAL CHOLELITHIASIS AND DIVERTICULOSIS. Impression dictated by: Angeli Arevalo M.D.11/25/2023 1:30 PM Dictation Location: [place] [address] Transcribed By: [facility] 11/25/23 1330 Dictated By: Angeli Arevalo MD 11/24/23 1347 Signed By: 11/25/23 1330 Normal [facility] Proteinase 3 Ab [Units/volum e] in Serum by ImmunoassayOrdered By: Tosha Patel on 11-24-2023 Proteinase 3 Ab IA Qn (S) <0.2 units 0.0-0.9 [facility] Rheumatoid Factoron 11-24-19 Rheumatoid Factor <10.0 Normal <14.0 [facility] Comment on above: Result Comment: Perf ormed at: [employer] [place] [address] Chemical Plant Worker: Joés Manuel Petersen PhD, Phone: [phone] Performed By: #### B MP, DIFF CBC #### [address] Serum angiotensin converting enzyme (SONIYA) measurementOrdered By: Tosha Patel on 11-24-2023 Angiotensin converting enzyme [Catalytic activity/Vol] 50 U/L Normal 14-82 [facility] Comment on above: Performed at: [employer] [facility] [place] [id number] Director: José Manuel Petersen PhD, Phone: [phone] Result Comment: Perf ormed at: [employer] [address] [id number] Chemical Plant Worker: José Manuel Petersen PhD, Phone: [phone] Performed By: #### B MP, DIFF CBC #### [place] [id number] [facility] Serum classic neutrophil cyt oplasmic antibody titer by immunofluorescenceOrdered By: Tosha Patel on 11-24-2023 Neutrophil cytoplasmic Ab.classic IF (S) [Titer] <1:20 titer Neg:<1:20 [facility] Serum homogeneous pattern an tinuclear antibody (ANDREIA) titerOrdered By: Tosha Barrientos on 11-24-2023 Homogenous nuclear Ab pattern (S) [Titer] N/A [facility] Serum nuclear antibody titer Ordered By: Tosha Patel on 11-24-2023 Nuclear Ab (S) [Titer] Negative . Fi [facility] Comment on above: Negative <1:80 Borde rline 1:80 Positive >1:80ICAP nomenclature: AC-0For more information about Hep-2 cell patterns useANApatterns.org, the official website for theInternational Consensus on Antinuclear Antibody (ANDREIA)Patterns (ICAP).Performed at: [employer] [address] [id number] Director: José Manuel Petersen PhD, Phone: [phone] Serum or plasma rheumatoid f actor measurement (units/volume)Ordered By: Tosha Patel on 11-24-2023 Rheumatoid factor Qn [IU]/mL <14.0 [facility] Comment on above: Performed at: [employer] [facility] [address] [id number] Director: José Manuel Petersen PhD, Phone: [phone] A1C HEMOGLOBINon 11-18-2023 HbA1c (Bld) [Mass fraction] 9.8 % [employer] Other Glucose - FINGER STICKon Glucose [Mass/Vol] 116 mg/dL [employer] Other HbA1c (Bld) [Mass fraction]o n 11-18-2023 A1C HEMOGLOBIN [employer] Other XR hip RT min 2V(w/wo pelvis )*on 11-16-2023 XR hip RT min 2V(w/wo pelvis)* [facility] [place] [address] XRay Report Signed Patient: Heidi Palmer MR#: [id number] 13 : 1940 Acct:[id number] Age/Sex: 83 / F ADM Date: 11/16/23 Loc: [facility] Room: Type: [facility] Attending Dr: Ismael Booth MD Copies to: Ismael Booth MD Ordering Provider: Ismael Booth MD Date of Service: 11/16/23 XR/XR hip RT min 2V(w/wo pelvis)*: History of right hip hemiarthroplasty RIGHT HIP - 2 views: CLINICAL HISTORY: Follow-up right hemiarthroplasty. COMPARISON: Right hip 10/26/2023 FINDINGS: No hardware complication. No acute bony process. XR/XR hip RT min 2V(w/wo pelvis)* IMPRESSION: NO HARDWARE COMPLICATION OR ACUTE BONY PROCESS.. Impression dictated by: Anthony Benson Jr., D.O.11/16/2023 2:30 PM Dictation Location: [place] [address] Transcribed By: [facility] 11/16/23 1430 Dictated By: Anthony Benson Jr, DO 11/16/23 1429 Signed By: 11/16/23 1430 Normal [facility] Capillary blood glucose radhames urement by glucometer (mass/volume)Ordered By: Anthony Alaniz on 11-03-2023 Glucose [Mass/Vol] 131 mg/dL Normal [facility] Comment on above: Random Glucose Refer ence Range is dependent on time and content of last meal. Glucose of more than 200 mg/dL in a nonstressed, ambulatory subject supports the diagnosis of Diabetes Mellitus. Result Comment: [facility] Glucose Reference Range is dependent on time and content of last meal. Glucose of more than 200 mg/dL in a nonstressed, ambulatory subject supports the diagnosis of Diabetes Mellitus. PERFORMED BY: [facility] [address] [place] [address] PATHOLOGIST SPRING BENDER MELODY WHEELER M.D. Performed By: #### G OTONIEL #### Point of Care testing , Glucose Poct Glucometerson 1 01-04-2023 Glucose [Mass/Vol] 97 mg/dL Normal [facility] Comment on above: Result Comment: [facility] Glucose Reference Range is dependent on time and content of last meal. Glucose of more than 200 mg/dL in a nonstressed, ambulatory subject supports the diagnosis of Diabetes Mellitus. PERFORMED BY: [place] [address] PATHOLOGIST SPRING BENDER MELODY WHEELER M.D. Performed By: #### G OTONIEL #### Point of Care testing , Automated basophil %Ordered By: Irma Duran on 11-02-2023 Basophils/100 WBC (Bld) 0.6 % Normal . [facility] Comment on above: Performed By: #### B MP, DIFF CBC #### [address] Automated basophil countOrde red By: Irma Duran on 11-02-2023 Basophils (Bld) [#/Vol] 0.0 10*3/uL Normal 0.0-0.2 [facility] Comment on above: Result Comment: PERF ORMED BY: [place] [address] PATHOLOGIST [employer]ING BENDER MELODY WHEELER M.D. Performed By: #### B MP, DIFF CBC #### [address] Automated blood monocyte cou ntOrdered By: Irma Duran on 11-02-2023 Monocytes (Bld) [#/Vol] 0.6 10*3/uL Normal 0.0-0.8 [facility] Comment on above: Performed By: #### B MP, DIFF CBC #### [address] Automated eosinophil %Ordere d By: Irma Duran on 11-02-2023 Eosinophils/100 WBC (Bld) 0.4 % Normal . [facility] Comment on above: Performed By: #### B MP, DIFF CBC #### [address] Automated eosinophil countOr dered By: Irma Duran on 11-02-2023 Eosinophils (Bld) [#/Vol] 0.0 10*3/uL Normal 0.0-0.45 [facility] Comment on above: Performed By: #### B MP, DIFF CBC #### [facility] [address] Automated erythrocytes count in urine sediment (number/area)Ordered By: Irma Duran on 11-02-2023 RBC Auto (Urine sed) [#/Area] 0-1 [HPF] 0-4 [facility] Automated leukocytes count i n urine sediment (number/area)Ordered By: Irma Duran on 11-02-2023 WBC Auto (Urine sed) [#/Area] 5-9 [HPF] 0-4 [facility] Automated monocyte %Ordered By: Irma Duran on 11-02-2023 Monocytes/100 WBC (Bld) 11.5 % Normal . [facility] Comment on above: Performed By: #### B MP, DIFF CBC #### [address] Automated neutrophil %Ordere d By: Irma Duran on 11-02-2023 Neutrophils/100 WBC (Bld) 57.7 % Normal . [facility] Comment on above: Performed By: #### B MP, DIFF CBC #### [address] Automated urine color determ inationOrdered By: rIma Duran on 11-02-2023 Color (U) Yellow Normal Yellow [facility] Comment on above: Order Comment: Name Collection Type:: Clean-Voided Midstream Performed By: #### B MP, DIFF CBC #### [address] Basic Metabolic Panelon 12-2 Creatinine Clr Calc Pharmacy 47.65 Normal [facility] Comment on above: Result Comment: PERF ORMED BY: [place] [address] PATHOLOGIST [employer]ING BENDER MELODY WHEELER M.D. Performed By: #### B MP, DIFF CBC #### [address] GFR/1.73 sq M.predicted MDRD (S/P/Bld) [Vol rate/Area] mL/min/{1.73_m2} Normal [facility] Comment on above: Performed By: #### B MP, DIFF CBC #### [address] Bilirubin Test strip Ql (U)O rdered By: Irma Duran on 11-02-2023 Bilirubin Ql (U) Negative Negative [facility] Calcium [Mass/volume] in Ser um or PlasmaOrdered By: Irma Duran on 11-02-2023 Calcium [Mass/Vol] 8.6 mg/dL Normal 8.6-10.3 [facility] Comment on above: Performed By: #### B MP, DIFF CBC #### [address] Carbon dioxide, total [Moles /volume] in Serum or PlasmaOrdered By: Irma Duran on 11-02-2023 CO2 [Moles/Vol] 24.3 mmol/L Normal 21.0-31.0 [facility] Comment on above: Performed By: #### B MP, DIFF CBC #### [address] Chloride [Moles/volume] in S cedric or PlasmaOrdered By: Irma Duran on 11-02-2023 Chloride [Moles/Vol] 104 mmol/L Normal 98-107 [facility] Comment on above: Performed By: #### B MP, DIFF CBC #### [address] Complete Blood Count Auto Di ffon 11-02-2023 Mean Corpuscular HGB Conc 33.2 g/dL Normal 32.0-35.0 [facility] Comment on above: Performed By: #### B MP, DIFF CBC #### [address] NRBC% 0.0 /100{WBC} Normal 0-0.5 [facility] Comment on above: Performed By: #### B MP, DIFF CBC #### [place] [address] [place] Creatinine [Mass/volume] in Serum or PlasmaOrdered By: Irma Duran on 11-02-2023 Creatinine [Mass/Vol] 0.63 mg/dL Normal 0.60-1.20 [facility] Comment on above: Performed By: #### B MP, DIFF CBC #### [address] Dipstick and Microscopicon 1 01-03-2023 Appearance (U) Clear Normal Clear [facility] Comment on above: Order Comment: Name Collection Type:: Clean-Voided Midstream Performed By: #### B MP, DIFF CBC #### [place] [address] [place] Bacteria,Urine None Seen Normal None Seen [facility] Comment on above: Order Comment: Name Collection Type:: Clean-Voided Midstream Performed By: #### B MP, DIFF CBC #### [address] Bilirubin,Urine Negative Normal Negative [facility] Comment on above: Order Comment: Name Collection Type:: Clean-Voided Midstream Performed By: #### B MP, DIFF CBC #### [address] Glucose Ql (U) Normal Normal Normal [facility] Comment on above: Order Comment: Name Collection Type:: Clean-Voided Midstream Performed By: #### B MP, DIFF CBC #### [address] Hyaline Casts,Urine 0-8 Normal 0-8 [facility] Comment on above: Order Comment: Name Collection Type:: Clean-Voided Midstream Result Comment: PERF ORMED BY: [place] [address] PATHOLOGIST SPRING BENDER MELODY WHEELER M.D. Performed By: #### B MP, DIFF CBC #### [address] Ketones Ql (U) Trace High Negative [facility] Comment on above: Order Comment: Name Collection Type:: Clean-Voided Midstream Performed By: #### B MP, DIFF CBC #### [address] Leukocyte esterase Test strip Ql (U) 2+ High Negative [facility] Comment on above: Order Comment: Name Collection Type:: Clean-Voided Midstream Performed By: #### B MP, DIFF CBC #### [place] [address] [place] Nitrite,Urine Negative Normal Negative [facility] Comment on above: Order Comment: Name Collection Type:: Clean-Voided Midstream Performed By: #### B MP, DIFF CBC #### [place] [address] [place] Occult Blood,Urine Negative Normal Negative [facility] Comment on above: Order Comment: Name Collection Type:: Clean-Voided Midstream Performed By: #### B MP, DIFF CBC #### [place] [address] [place] Protein,Urine Negative Normal Negative [facility] Comment on above: Order Comment: Name Collection Type:: Clean-Voided Midstream Performed By: #### B MP, DIFF CBC #### [place] [address] [place] RBC LM.HPF (Urine sed) [#/Area] 0 /[HPF] Normal 0-4 [facility] Comment on above: Order Comment: Name Collection Type:: Clean-Voided Midstream Performed By: #### B MP, DIFF CBC #### [place] [address] [place] Specificy [place],Urine 1.010 Normal 1.00 1-1.03 0 [facility] Comment on above: Order Comment: Name Collection Type:: Clean-Voided Midstream Performed By: #### B MP, DIFF CBC #### [place] [address] [place] Squamous Epithelial Cell,Urine 0-1 Normal 0-2 [facility] Comment on above: Order Comment: Name Collection Type:: Clean-Voided Midstream Performed By: #### B MP, DIFF CBC #### [address] Urobilinogen,Urine Normal Normal Normal [facility] Comment on above: Order Comment: Name Collection Type:: Clean-Voided Midstream Performed By: #### B MP, DIFF CBC #### [address] WBC,Urine 5-9 High 0-4 [facility] Comment on above: Order Comment: Name Collection Type:: Clean-Voided Midstream Performed By: #### B MP, DIFF CBC #### [address] Erythrocyte distribution wid th [Ratio] by Automated countOrdered By: Irma Duran on 11-02-2023 Erythrocyte distribution width (RBC) [Ratio] 15.6 % High 11.9-15.3 [facility] Comment on above: Performed By: #### B MP, DIFF CBC #### [address] Erythrocytes [#/volume] in B lood by Automated countOrdered By: Irma Duran on 11-02-2023 RBC (Bld) [#/Vol] 4.00 10*6/uL Normal 3.60-5.00 [facility] Comment on above: Performed By: #### B MP, DIFF CBC #### [address] Glucose Poct Glucometerson 1 01-03-2023 Commemt1 Glu2: Cleaned Meter Normal [facility] Comment on above: Result Comment: PERF ORMED BY: [place] [address] PATHOLOGIST SPRING BENDER MELODY WHEELER M.D. Performed By: #### B MP, DIFF CBC #### [address] Glucose [Mass/Vol] 135 mg/dL Normal [facility] Comment on above: Result Comment: [place] Glucose Reference Range is dependent on time and content of last meal. Glucose of more than 200 mg/dL in a nonstressed, ambulatory subject supports the diagnosis of Diabetes Mellitus. Performed By: #### B MP, DIFF CBC #### [address] Commemt1 Glu2: Cleaned Meter Normal [facility] Comment on above: Result Comment: PERF ORMED BY: [place] [address] PATHOLOGIST SPRING BENDER MELODY WHEELER M.D. Performed By: #### G LULS #### Point of Care testing , Glucose [Mass/Vol] 125 mg/dL Normal [facility] Comment on above: Result Comment: [place] om Glucose Reference Range is dependent on time and content of last meal. Glucose of more than 200 mg/dL in a nonstressed, ambulatory subject supports the diagnosis of Diabetes Mellitus. Performed By: #### G LULS #### Point of Care testing , Commemt1 Glu2: Cleaned Meter Normal [facility] Comment on above: Result Comment: PERF ORMED BY: [place] [address] PATHOLOGIST SPRING BENDER MELODY WHEELER M.D. Performed By: #### B MP, DIFF CBC #### [address] Glucose [Mass/Vol] 151 mg/dL Normal [facility] Comment on above: Result Comment: [place] om Glucose Reference Range is dependent on time and content of last meal. Glucose of more than 200 mg/dL in a nonstressed, ambulatory subject supports the diagnosis of Diabetes Mellitus. Performed By: #### B MP, DIFF CBC #### [address] Commemt1 Glu2: Cleaned Meter Normal [facility] Comment on above: Result Comment: PERF ORMED BY: [place] [address] PATHOLOGIST SPRING B[employer]ER MELODY WHEELER M.D. Performed By: #### G LULS ####Point of Care testing, Glucose [Mass/Vol] 87 mg/dL Normal [facility] Comment on above: Result Comment: [place] om Glucose Reference Range is dependent on time and content of last meal. Glucose of more than 200 mg/dL in a nonstressed, ambulatory subject supports the diagnosis of Diabetes Mellitus. Performed By: #### G OTONIEL ####Point of Care testing, Glucose [Mass/volume] in Ser um or PlasmaOrdered By: Irma Duran on 11-02-2023 Glucose [Mass/Vol] 186 mg/dL High 70-100 [facility] Comment on above: ADA recommended refe rence rangeRandom Glucose Reference Range is dependent on time and content of last meal. Glucose of more than 200 mg/dL in a nonstressed, ambulatory subject supports the diagnosis of Diabetes Mellitus. Result Comment: [place] om Glucose Reference Range is dependent on time and content of last meal. Glucose of more than 200 mg/dL in a nonstressed, ambulatory subject supports the diagnosis of Diabetes Mellitus. ADA recommended reference range Performed By: #### B MP, DIFF CBC #### [facility] [address] Hematocrit [Volume Fraction] of Blood by Automated countOrdered By: Irma Duran on 11-02-2023 Hematocrit (Bld) [Volume fraction] 36.7 % Normal 34.0-46.4 [facility] Comment on above: Performed By: #### B MP, DIFF CBC #### [facility] [address] [place] [address] [place] Hemoglobin [Mass/volume] in BloodOrdered By: Irma Duran on 11-02-2023 Hemoglobin (Bld) [Mass/Vol] 12.2 g/dL Normal 11.8-15.4 [facility] Comment on above: Performed By: #### B MP, DIFF CBC #### [facility] [address] [place] [address] [place] Ketones Auto test strip (U) [Mass/Vol]Ordered By: Irma Duran on 11-02-2023 Ketones (U) [Mass/Vol] Trace Negative [facility] - UrinalysisOrder ed By: Irma Duran on 11-02-2023 Hyaline casts LM Ql (Urine sed) 0-8 [LPF] 0-8 [facility] Leukocytes [#/volume] correc seferino for nucleated erythrocytes in Blood by Automated counOrdered By: Irma Duran on 11-02-2023 WBC corrected for nucl RBC Auto (Bld) [#/Vol] 5.2 10*3/uL 3.8-11.6 [facility] Leukocytes [#/volume] in Blo od by Automated countOrdered By: Irma Duran on 11-02-2023 WBC (Bld) [#/Vol] 5.2 10*3/uL Normal 3.8-11.6 [facility] Comment on above: Performed By: #### B MP, DIFF CBC #### [address] Lymphocytes [#/volume] in Bl ood by Automated countOrdered By: Irma Duran on 11-02-2023 Lymphocytes (Bld) [#/Vol] 1.6 10*3/uL Normal 1.00-4.8 [facility] Comment on above: Performed By: #### B MP, DIFF CBC #### [facility] [address] [place] [address] [place] Lymphocytes/100 leukocytes i n Blood by Automated countOrdered By: Irma Duran on 11-02-2023 Lymphocytes/100 WBC (Bld) 29.8 % Normal . [facility] Comment on above: Performed By: #### B MP, DIFF CBC #### [facility] [address] [place] [address] [place] MCH [Entitic mass] by Automa seferino countOrdered By: Irma Duran on 11-02-2023 MCH (RBC) [Entitic mass] 30.5 pg Normal 24.7-34.3 [facility] Comment on above: Performed By: #### B MP, DIFF CBC #### [address] MCHC Auto (RBC) [Mass/Vol]Or dered By: Irma Duran on 11-02-2023 MCHC (RBC) [Mass/Vol] 33.2 g/dL 32.0-35.0 [facility] MCV [Entitic volume] by Auto mated countOrdered By: Irma Duran on 11-02-2023 MCV (RBC) [Entitic vol] 91.8 fL Normal 80-100 [facility] Comment on above: Performed By: #### B MP, DIFF CBC #### [facility] [address] Neutrophils [#/volume] in Bl ood by Automated countOrdered By: Irma Duran on 11-02-2023 Neutrophils (Bld) [#/Vol] 3.0 10*3/uL Normal 1.8-7.7 [facility] Comment on above: Performed By: #### B MP, DIFF CBC #### [facility] [address] Nitrite Test strip Ql (U)Ord ered By: Irma Duran on 11-02-2023 Nitrite Ql (U) Negative Negative [facility] No Panel InformationOrdered By: Anthony Alaniz on 11-02-2023 Bedside Glucose Comment Glu2: cleaned meter [facility] No Panel InformationOrdered By: Irma Duran on 11-02-2023 Estimated GFR (CKD-EPI) > 60.0 mL/Min [facility] Creatinine Clearance (Chem 47.65 [facility] Nucleated erythrocytes [Pres ence] in Blood by Automated countOrdered By: Irma Duran on 11-02-2023 Nucleated RBC Auto Ql (Bld) 0.0 /100{WBC} 0-0.5 [facility] Platelet mean volume [Entiti c volume] in Blood by Automated countOrdered By: Irma Duran on 11-02-2023 Platelet mean volume (Bld) [Entitic vol] 8.3 fL Normal 6.3-10.7 [facility] Comment on above: Performed By: #### B MP, DIFF CBC #### [facility] [address] Platelets [#/volume] in Bloo d by Automated countOrdered By: Irma Duran on 11-02-2023 Platelets (Bld) [#/Vol] 252 10*3/uL Normal 150-450 [facility] Comment on above: Performed By: #### B MP, DIFF CBC #### [facility] [address] [place] [address] [place] Potassium [Moles/volume] in Serum or PlasmaOrdered By: Irma Duran on 11-02-2023 Potassium [Moles/Vol] 4.1 mmol/L Normal 3.5-5.1 [facility] Comment on above: Performed By: #### B MP, DIFF CBC #### [facility] [address] Protein Auto test strip (U) [Mass/Vol]Ordered By: Irma Duran on 11-02-2023 Protein (U) [Mass/Vol] Negative Negative [facility] Serum or plasma anion gap de terminationOrdered By: Irma Duran on 11-02-2023 Anion gap [Moles/Vol] 8.8 mmol/L Normal 6.0-15.0 [facility] Comment on above: Performed By: #### B MP, DIFF CBC #### [facility] [address] [place] [address] [place] Sodium [Moles/volume] in Ser um or PlasmaOrdered By: Irma Duran on 11-02-2023 Sodium [Moles/Vol] 133 mmol/L Low 136-145 [facility] Comment on above: Performed By: #### B MP, DIFF CBC #### [facility] [address] Specific gravity Auto test s trip (U) [Rel density]Ordered By: Irma Duran on 11-02-2023 Specific gravity (U) [Rel density] 1.010 1.001-1.03 0 [facility] Squamous epithelial cells de tection in urine sediment by light microscopyOrdered By: Irma Duran on 11-02-2023 Epithelial cells.squamous LM Ql (Urine sed) 0-1 [HPF] 0-2 [facility] Urea nitrogen [Mass/volume] in Serum or PlasmaOrdered By: Irma Duran on 11-02-2023 Urea nitrogen [Mass/Vol] 7 mg/dL Normal 7-25 [facility] Comment on above: Performed By: #### B MP, DIFF CBC #### [facility] [address] [place] [id number] [facility] Urine Cultureon 11-02-2023 Bacteria identified Cx Nom (U) >100,000 colonies/ml mixed bacterial skin contaminants 2 Days PERFORMED BY: [place] [address] PATHOLOGIST SPRING BENDER MELODY WHEELER M.D. Normal [facility] Comment on above: Performed By: #### B MP, DIFF CBC #### [facility] [address] Urine bacteria detection by automated methodOrdered By: Irma Duran on 11-02-2023 Bacteria Auto Ql (U) None seen None Seen [facility] Urine clarity by refractomet ry automatedOrdered By: Irma Duran on 11-02-2023 Clarity Refractometry automated (U) Clear Clear [facility] Urine culture routineOrdered By: Irma Duran on 11-02-2023 Bacteria identified Cx Nom (U) 2 Days [facility] Urine glucose measurement by automated test strip (mass/volume)Ordered By: Irma Duran on 11-02-2023 Glucose Auto test strip (U) [Mass/Vol] Normal mg/dL Normal [facility] Urine hemoglobin detection b y automated test stripOrdered By: Irma Duran on 11-02-2023 Hemoglobin Auto test strip Ql (U) Negative Negative [facility] Urine leukocyte esterase det ection by automated test stripOrdered By: Irma Duran on 11-02-2023 Leukocyte esterase Auto test strip Ql (U) 2+ Negative [facility] Urine pH measurement by auto mated test stripOrdered By: Irma Duran on 11-02-2023 pH (U) 7.5 [pH] Normal 5.0-9.0 [facility] Comment on above: Order Comment: Name Collection Type:: Clean-Voided Midstream Performed By: #### B MP, DIFF CBC #### [facility] [address] [place] [address] Urobilinogen Auto test strip (U) [Mass/Vol]Ordered By: Irma Duran on 11-02-2023 Urobilinogen (U) [Mass/Vol] Normal mg/dL Normal [facility] Glucose Poct Glucometerson 1 01-02-2023 Glucose [Mass/Vol] 107 mg/dL Normal [facility] Comment on above: Result Comment: [facility] Glucose Reference Range is dependent on time and content of last meal. Glucose of more than 200 mg/dL in a nonstressed, ambulatory subject supports the diagnosis of Diabetes Mellitus. PERFORMED BY: [place] [address] PATHOLOGIST SPRING BENDER MELODY WHEELER M.D. Performed By: #### G LULS ####Point of Care testing, Glucose [Mass/Vol] 150 mg/dL Normal [facility] Comment on above: Result Comment: [facility] Glucose Reference Range is dependent on time and content of last meal. Glucose of more than 200 mg/dL in a nonstressed, ambulatory subject supports the diagnosis of Diabetes Mellitus. PERFORMED BY: [place] [address] PATHOLOGIST SPRING BENDER MELODY WHEELER M.D. Performed By: #### B MP, DIFF CBC #### [address] Glucose [Mass/Vol] 179 mg/dL Normal [facility] Comment on above: Result Comment: [facility] Glucose Reference Range is dependent on time and content of last meal. Glucose of more than 200 mg/dL in a nonstressed, ambulatory subject supports the diagnosis of Diabetes Mellitus. PERFORMED BY: [place] [address] PATHOLOGIST SPRING BENDER MELODY WHEELER M.D. Performed By: #### G LULS #### Point of Care testing , Glucose [Mass/Vol] 101 mg/dL Normal [facility] Comment on above: Result Comment: [facility] Glucose Reference Range is dependent on time and content of last meal. Glucose of more than 200 mg/dL in a nonstressed, ambulatory subject supports the diagnosis of Diabetes Mellitus. PERFORMED BY: [place] [id number] PATHOLOGIST SPRING BENDER MELODY WHEELER M.D. Performed By: #### B MP, CBC #### [address] Glucose Poct Glucometerson 01-01-2023 Glucose [Mass/Vol] 205 mg/dL Normal [facility] Comment on above: Result Comment: [place] om Glucose Reference Range is dependent on time and content of last meal. Glucose of more than 200 mg/dL in a nonstressed, ambulatory subject supports the diagnosis of Diabetes Mellitus. PERFORMED BY: [place] [id number] PATHOLOGIST SPRING BENDER MELODY WHEELER M.D. Performed By: #### G LULS ####Point of Care testing, Glucose [Mass/Vol] 167 mg/dL Normal [facility] Comment on above: Result Comment: [place] om Glucose Reference Range is dependent on time and content of last meal. Glucose of more than 200 mg/dL in a nonstressed, ambulatory subject supports the diagnosis of Diabetes Mellitus. PERFORMED BY: [address] [address] PATHOLOGIST SPRING BENDER MELODY WHEELER M.D. Performed By: #### G LULS #### Point of Care testing , Glucose [Mass/Vol] 183 mg/dL Normal [facility] Comment on above: Result Comment: [place] om Glucose Reference Range is dependent on time and content of last meal. Glucose of more than 200 mg/dL in a nonstressed, ambulatory subject supports the diagnosis of Diabetes Mellitus. PERFORMED BY: [place] [id number] PATHOLOGIST SPRING BENDER MELODY WHEELER M.D. Performed By: #### G LULS ####Point of Care testing, Glucose [Mass/Vol] 128 mg/dL Normal [facility] Comment on above: Result Comment: [place] om Glucose Reference Range is dependent on time and content of last meal. Glucose of more than 200 mg/dL in a nonstressed, ambulatory subject supports the diagnosis of Diabetes Mellitus. PERFORMED BY: [address] [place] [address] PATHOLOGIST SPRING BENDER MELODY WHEELER M.D. Performed By: #### G LULS #### Point of Care testing , Basic Metabolic Panelon 12-2 Anion gap [Moles/Vol] 11.1 mmol/L Normal 6.0-15.0 [facility] Comment on above: Performed By: #### G LULS #### Point of Care testing , Calcium [Mass/Vol] 8.2 mg/dL Low 8.6-10.3 [facility] Comment on above: Performed By: #### G LULS #### Point of Care testing , Chloride [Moles/Vol] 100 mmol/L Normal 98-107 [facility] Comment on above: Performed By: #### G LULS #### Point of Care testing , CO2 [Moles/Vol] 26.4 mmol/L Normal 21.0-31.0 [facility] Comment on above: Performed By: #### G LULS #### Point of Care testing , Creatinine [Mass/Vol] 0.62 mg/dL Normal 0.60-1.20 [facility] Comment on above: Performed By: #### G LULS #### Point of Care testing , Creatinine Clr Calc Pharmacy 47.29 Normal [facility] Comment on above: Result Comment: PERF ORMED BY: [address] [place] [address] PATHOLOGIST SPRING BENDER MELODY WHEELER M.D. Performed By: #### G LULS #### Point of Care testing , GFR/1.73 sq M.predicted MDRD (S/P/Bld) [Vol rate/Area] mL/min/{1.73_m2} Normal [facility] Comment on above: Performed By: #### G LULS #### Point of Care testing , Glucose [Mass/Vol] 87 mg/dL Normal 70-100 [facility] Comment on above: Result Comment: [place] Glucose Reference Range is dependent on time and content of last meal. Glucose of more than 200 mg/dL in a nonstressed, ambulatory subject supports the diagnosis of Diabetes Mellitus. ADA recommended reference range Performed By: #### G LULS #### Point of Care testing , Potassium [Moles/Vol] 4.5 mmol/L Normal 3.5-5.1 [facility] Comment on above: Performed By: #### G LULS #### Point of Care testing , Sodium [Moles/Vol] 133 mmol/L Low 136-145 [facility] Comment on above: Performed By: #### G LULS #### Point of Care testing , Urea nitrogen [Mass/Vol] 8 mg/dL Normal 7-25 [facility] Comment on above: Performed By: #### G LULS #### Point of Care testing , Complete Blood Count Auto Di ffon 10-30-2023 Basophils (Bld) [#/Vol] 0.0 10*3/uL Normal 0.0-0.2 [facility] Comment on above: Result Comment: PERF ORMED BY: [facility] [address] [place] [address] PATHOLOGIST SPRING BENDER MELODY WHEELER M.D. Performed By: #### G LULS #### Point of Care testing , Basophils/100 WBC (Bld) 0.9 % Normal . [facility] Comment on above: Performed By: #### G LULS #### Point of Care testing , Eosinophils (Bld) [#/Vol] 0.0 10*3/uL Normal 0.0-0.45 [facility] Comment on above: Performed By: #### G LULS #### Point of Care testing , Eosinophils/100 WBC (Bld) 0.7 % Normal . [facility] Comment on above: Performed By: #### G LULS #### Point of Care testing , Erythrocyte distribution width (RBC) [Ratio] 15.2 % Normal 11.9-15.3 [facility] Comment on above: Performed By: #### G LULS #### Point of Care testing , Hematocrit (Bld) [Volume fraction] 35.3 % Normal 34.0-46.4 [facility] Comment on above: Performed By: #### G LULS #### Point of Care testing , Hemoglobin (Bld) [Mass/Vol] 11.7 g/dL Low 11.8-15.4 [facility] Comment on above: Performed By: #### G LULS #### Point of Care testing , Lymphocytes (Bld) [#/Vol] 2.2 10*3/uL Normal 1.00-4.8 [facility] Comment on above: Performed By: #### G LULS #### Point of Care testing , Lymphocytes/100 WBC (Bld) 52.4 % Normal . [facility] Comment on above: Performed By: #### G LULS #### Point of Care testing , MCH (RBC) [Entitic mass] 30.4 pg Normal 24.7-34.3 [facility] Comment on above: Performed By: #### G LULS #### Point of Care testing , MCV (RBC) [Entitic vol] 92.0 fL Normal 80-100 [facility] Comment on above: Performed By: #### G LULS #### Point of Care testing , Mean Corpuscular HGB Conc 33.1 g/dL Normal 32.0-35.0 [facility] Comment on above: Performed By: #### G LULS #### Point of Care testing , Monocytes (Bld) [#/Vol] 0.7 10*3/uL Normal 0.0-0.8 [facility] Comment on above: Performed By: #### G LULS #### Point of Care testing , Monocytes/100 WBC (Bld) 16.3 % Normal . [facility] Comment on above: Performed By: #### G LULS #### Point of Care testing , Neutrophils (Bld) [#/Vol] 1.2 10*3/uL Low 1.8-7.7 [facility] Comment on above: Performed By: #### G LULS #### Point of Care testing , Neutrophils/100 WBC (Bld) 29.7 % Normal . [facility] Comment on above: Performed By: #### G LULS #### Point of Care testing , NRBC% 0.1 /100{WBC} Normal 0-0.5 [facility] Comment on above: Performed By: #### G LULS #### Point of Care testing , Platelet mean volume (Bld) [Entitic vol] 8.4 fL Normal 6.3-10.7 [facility] Comment on above: Performed By: #### G LULS #### Point of Care testing , Platelets (Bld) [#/Vol] 259 10*3/uL Normal 150-450 [facility] Comment on above: Performed By: #### G LULS #### Point of Care testing , RBC (Bld) [#/Vol] 3.83 10*6/uL Normal 3.60-5.00 [facility] Comment on above: Performed By: #### G LULS #### Point of Care testing , WBC (Bld) [#/Vol] 4.1 10*3/uL Normal 3.8-11.6 [facility] Comment on above: Performed By: #### G LULS #### Point of Care testing , Glucose Poct Glucometerson 1 12-31-2022 Commemt1 Glu2: Cleaned Meter Normal [facility] Comment on above: Result Comment: PERF ORMED BY: [address] [place] [address] PATHOLOGIST SPRING BENDER MELODY WHEELER M.D. Performed By: #### G LULS ####Point of Care testing, Glucose [Mass/Vol] 180 mg/dL Normal [facility] Comment on above: Result Comment: [facility] Glucose Reference Range is dependent on time and content of last meal. Glucose of more than 200 mg/dL in a nonstressed, ambulatory subject supports the diagnosis of Diabetes Mellitus. Performed By: #### G LULS ####Point of Care testing, Commemt1 Glu2: Cleaned Meter Normal [facility] Comment on above: Result Comment: PERF ORMED BY: [place] [address] PATHOLOGIST SPRING BENDER MELODY WHEELER M.D. Performed By: #### B MP, CBC #### [address] Glucose [Mass/Vol] 194 mg/dL Normal [facility] Comment on above: Result Comment: [place] [facility] Glucose Reference Range is dependent on time and content of last meal. Glucose of more than 200 mg/dL in a nonstressed, ambulatory subject supports the diagnosis of Diabetes Mellitus. Performed By: #### B MP, CBC #### [address] Commemt1 Glu2: Cleaned Meter Normal [facility] Comment on above: Result Comment: PERF ORMED BY: [place] [address] PATHOLOGIST SPRING BENDER MELODY WHEELER M.D. Performed By: #### G LULS #### Point of Care testing , Glucose [Mass/Vol] 139 mg/dL Normal [facility] Comment on above: Result Comment: [place] [facility] Glucose Reference Range is dependent on time and content of last meal. Glucose of more than 200 mg/dL in a nonstressed, ambulatory subject supports the diagnosis of Diabetes Mellitus. Performed By: #### G LULS #### Point of Care testing , Commemt1 Glu2: Cleaned Meter Normal [facility] Comment on above: Result Comment: PERF ORMED BY: [place] [address] PATHOLOGIST [employer]ING BENDER MELODY WHEELER M.D. Performed By: #### G LULS ####Point of Care testing, Glucose [Mass/Vol] 113 mg/dL Normal [facility] Comment on above: Result Comment: [place] [facility] Glucose Reference Range is dependent on time and content of last meal. Glucose of more than 200 mg/dL in a nonstressed, ambulatory subject supports the diagnosis of Diabetes Mellitus. Performed By: #### G LULS ####Point of Care testing, Glucose Poct Glucometerson 1 12-30-2022 Glucose [Mass/Vol] 122 mg/dL Normal [facility] Comment on above: Result Comment: [place] [facility] Glucose Reference Range is dependent on time and content of last meal. Glucose of more than 200 mg/dL in a nonstressed, ambulatory subject supports the diagnosis of Diabetes Mellitus. PERFORMED BY: [place] [id number] PATHOLOGIST SPRING BENDER MELODY WHEELER M.D. Performed By: #### G LULS #### Point of Care testing , Glucose [Mass/Vol] 140 mg/dL Normal [facility] Comment on above: Result Comment: [place] [facility] Glucose Reference Range is dependent on time and content of last meal. Glucose of more than 200 mg/dL in a nonstressed, ambulatory subject supports the diagnosis of Diabetes Mellitus. PERFORMED BY: [place] [id number] PATHOLOGIST SPRING BENDER MELODY WHEELER M.D. Performed By: #### G LULS ####Point of Care testing, Commemt1 Glu2: Cleaned Meter Normal [facility] Comment on above: Result Comment: PERF ORMED BY: [place] [id number] PATHOLOGIST SPRING [employer]ER MELODY WHEELER M.D. Performed By: #### G LULS ####Point of Care testing, Glucose [Mass/Vol] 170 mg/dL Normal [facility] Comment on above: Result Comment: [place] [facility] Glucose Reference Range is dependent on time and content of last meal. Glucose of more than 200 mg/dL in a nonstressed, ambulatory subject supports the diagnosis of Diabetes Mellitus. Performed By: #### G LULS ####Point of Care testing, Commemt1 Glu2: Cleaned Meter Normal [facility] Comment on above: Result Comment: PERF ORMED BY: [place] [id number] PATHOLOGIST SPRING BENDER MELODY WHEELER M.D. Performed By: #### G LULS ####Point of Care testing, Glucose [Mass/Vol] 87 mg/dL Normal [facility] Comment on above: Result Comment: [facility] Glucose Reference Range is dependent on time and content of last meal. Glucose of more than 200 mg/dL in a nonstressed, ambulatory subject supports the diagnosis of Diabetes Mellitus. Performed By: #### G OTONIEL ####Point of Care testing, XR chest 2V*on 10-29-2023 XR chest 2V* [facility] [place] [address] [place] [address] XRay Report Signed Patient: Heidi Palmer MR#: [id number] 13 : 1940 Acct:[id number] Age/Sex: 83 / F ADM Date: 10/15/23 Loc: Room: [address] [place] [address] Type: ADM IN Attending Dr: Anthony Alaniz MD Copies to: Anthony Alaniz MD Ordering Provider: Anthony Alaniz MD Date of Service: 10/29/23 XR/XR chest 2V*: interval PA AND LATERAL CHEST: CLINICAL HISTORY: Cough and chest congestion COMPARISON: 10/27/[address] 10/11/2023 The lungs are hyperinflated. Pleural effusions are still present, left slightly larger than right. Minor underlying basilar atelectasis is not excluded. The patchy opacities seen bilaterally at the time of the comparison CT have nearly resolved. No new consolidation is seen. There is no pneumothorax. Cardiac and mediastinal contours are stable. The bony structures are osteopenic. There is thoracolumbar scoliotic curvature and endplate spurring at the spine. XR/XR chest 2V* IMPRESSION: RESOLVING PARENCHYMAL CHANGES SEEN PREVIOUSLY ON CT. RESIDUAL SMALL PLEURAL EFFUSIONS WITH POSSIBLE MINOR BASILAR ATELECTASIS. Impression dictated by: Angeli Arevalo M.D.10/29/2023 4:26 PM Dictation Location: [place] [address] Transcribed By: [facility] 10/29/231625 Dictated By: Angeli Arevalo MD 10/29/231621 Signed By: 10/29/231625 Normal [facility] Basic Metabolic Panelon 12- Anion gap [Moles/Vol] 7.6 mmol/L Normal 6.0-15.0 [facility] Comment on above: Performed By: #### B MP, DIFF CBC #### [facility] [address] [place] [address] [place] Calcium [Mass/Vol] 7.7 mg/dL Low 8.6-10.3 [facility] Comment on above: Performed By: #### B MP, DIFF CBC #### [facility] [address] [place] [address] [place] Chloride [Moles/Vol] 100 mmol/L Normal 98-107 [facility] Comment on above: Performed By: #### B MP, DIFF CBC #### [facility] [address] [place] [address] [place] CO2 [Moles/Vol] 26.7 mmol/L Normal 21.0-31.0 [facility] Comment on above: Performed By: #### B MP, DIFF CBC #### [place] [address] [place] Creatinine [Mass/Vol] 0.58 mg/dL Low 0.60-1.20 [facility] Comment on above: Performed By: #### B MP, DIFF CBC #### [place] [address] [place] Creatinine Clr Calc Pharmacy 47.29 Normal [facility] Comment on above: Result Comment: PERF ORMED BY: [place] [address] PATHOLOGIST [employer]ING BENDER MELODY WHEELER M.D. Performed By: #### B MP, DIFF CBC #### [place] [address] [place] GFR/1.73 sq M.predicted MDRD (S/P/Bld) [Vol rate/Area] mL/min/{1.73_m2} Normal [facility] Comment on above: Performed By: #### B MP, DIFF CBC #### [facility] [address] [place] [address] [place] Glucose [Mass/Vol] 154 mg/dL High 70-100 [facility] Comment on above: Result Comment: [place] Glucose Reference Range is dependent on time and content of last meal. Glucose of more than 200 mg/dL in a nonstressed, ambulatory subject supports the diagnosis of Diabetes Mellitus. ADA recommended reference range Performed By: #### B MP, DIFF CBC #### [facility] [address] Potassium [Moles/Vol] 4.3 mmol/L Normal 3.5-5.1 [facility] Comment on above: Performed By: #### B MP, DIFF CBC #### [facility] [address] [place] [address] [place] Sodium [Moles/Vol] 130 mmol/L Low 136-145 [facility] Comment on above: Performed By: #### B MP, DIFF CBC #### [facility] [address] Urea nitrogen [Mass/Vol] 12 mg/dL Normal 7-25 [facility] Comment on above: Performed By: #### B MP, DIFF CBC #### [facility] [address] [place] [address] [place] Basophils/100 leukocytes in Blood by Manual countOrdered By: Irma Duran on 10-28-2023 Basophils/100 WBC (Bld) 0 % Normal 0-2 [facility] Comment on above: Performed By: #### B MP, DIFF CBC #### [place] [address] [place] Diff and CBCon 10-28-2023 Erythrocyte distribution width (RBC) [Ratio] 15.2 % Normal 11.9-15.3 [facility] Comment on above: Performed By: #### B MP, DIFF CBC #### [facility] [address] [place] [address] [place] Hematocrit (Bld) [Volume fraction] 31.5 % Low 34.0-46.4 [facility] Comment on above: Performed By: #### B MP, DIFF CBC #### [place] [address] [place] Hemoglobin (Bld) [Mass/Vol] 10.5 g/dL Low 11.8-15.4 [facility] Comment on above: Performed By: #### B MP, DIFF CBC #### [address] Hypochromasia Slight Normal [facility] Comment on above: Performed By: #### B MP, DIFF CBC #### [address] MCH (RBC) [Entitic mass] 30.5 pg Normal 24.7-34.3 [facility] Comment on above: Performed By: #### B MP, DIFF CBC #### [address] MCV (RBC) [Entitic vol] 91.2 fL Normal 80-100 [facility] Comment on above: Performed By: #### B MP, DIFF CBC #### [address] Mean Corpuscular HGB Conc 33.5 g/dL Normal 32.0-35.0 [facility] Comment on above: Performed By: #### B MP, DIFF CBC #### [address] Metamyelocytes 4 % High 0-0 [facility] Comment on above: Performed By: #### B MP, DIFF CBC #### [address] Myelocytes 1 % High 0-0 [facility] Comment on above: Performed By: #### B MP, DIFF CBC #### [address] Platelet Estimate Normal Normal Normal [facility] Comment on above: Performed By: #### B MP, DIFF CBC #### [address] Platelet mean volume (Bld) [Entitic vol] 8.4 fL Normal 6.3-10.7 [facility] Comment on above: Result Comment: PERF ORMED BY: [place] [address] PATHOLOGIST SPRING BENDER MELODY WHEELER M.D. Performed By: #### B MP, DIFF CBC #### [address] Platelet Morphology Normal Normal Normal [facility] Comment on above: Result Comment: PERF ORMED BY: [place] [address] PATHOLOGIST SPRING BENDER MELODY WHEELER M.D. Performed By: #### B MP, DIFF CBC #### [address] Platelets (Bld) [#/Vol] 244 10*3/uL Normal 150-450 [facility] Comment on above: Performed By: #### B MP, DIFF CBC #### [address] RBC (Bld) [#/Vol] 3.45 10*6/uL Low 3.60-5.00 [facility] Comment on above: Performed By: #### B MP, DIFF CBC #### [place] [address] [place] Rouleaux Slight Normal [facility] Comment on above: Performed By: #### B MP, DIFF CBC #### [address] WBC (Bld) [#/Vol] 3.4 10*3/uL Low 3.8-11.6 [facility] Comment on above: Performed By: #### B MP, DIFF CBC #### [address] ECG 12 lead ECGon 10-28-2023 ECG 12 lead ECG [facility] [place] [address] [place] [address] Electrocardiograph Report Signed Patient: Heidi Palmer MR#: [id number] 13 : 1940 Acct:[id number] Age/Sex: 83 / F ADM Date: 10/15/23 Loc: Room: [address] [place] [address] Type: ADM IN Attending Dr: Anthony Alaniz MD Ordering Provider: Atnhony Alaniz MD Date of Service: 12/ ECG/ECG 12 lead ECG: QT interval Copies to: Test Reason : Blood Pressure : / mmHG Vent. Rate : 065 BPM Atrial Rate : 065 BPM P-R Int : 166 ms QRS Dur : 076 ms QT Int : 414 ms P-R-T Axes : 090 006 065 degrees QTc Int : 430 ms Normal sinus rhythm Septal infarct (cited on or before 28-OCT-2023) Abnormal ECG When compared with ECG of 20-OCT-2023 07:00, Questionable change in initial forces of Septal leads Confirmed by YESY GONSALVES FACANYA ([id number]) on 10/28/2023 5:03:27 PM Referred By: Electronically Signed By:ANYA HAYWARD MD [facility] Transcribed By: [facility] Signed By Yusuf Hayward MD 10/28/23 1703 Normal [facility] Eosinophils/100 leukocytes i n Blood by Manual countOrdered By: Irma Duran on 10-28-2023 Eosinophils/100 WBC (Bld) 3 % Normal 1-3 [facility] Comment on above: Performed By: #### B MP, DIFF CBC #### [address] Glucose Poct Glucometerson 1 12-29-2022 Glucose [Mass/Vol] 157 mg/dL Normal [facility] Comment on above: Result Comment: [facility] Glucose Reference Range is dependent on time and content of last meal. Glucose of more than 200 mg/dL in a nonstressed, ambulatory subject supports the diagnosis of Diabetes Mellitus. PERFORMED BY: [place] [address] PATHOLOGIST SPRING BENDER MELODY WHEELER M.D. Performed By: #### G LULS #### Point of Care testing , Glucose [Mass/Vol] 165 mg/dL Normal [facility] Comment on above: Result Comment: [facility] Glucose Reference Range is dependent on time and content of last meal. Glucose of more than 200 mg/dL in a nonstressed, ambulatory subject supports the diagnosis of Diabetes Mellitus. PERFORMED BY: [place] [address] PATHOLOGIST SPRING BENDER MELODY WHEELER M.D. Performed By: #### G LULS #### Point of Care testing , Glucose [Mass/Vol] 238 mg/dL Normal [facility] Comment on above: Result Comment: [place] [facility] Glucose Reference Range is dependent on time and content of last meal. Glucose of more than 200 mg/dL in a nonstressed, ambulatory subject supports the diagnosis of Diabetes Mellitus. PERFORMED BY: [place] [address] PATHOLOGIST SPRING BENDER MELODY WHEELER M.D. Performed By: #### B MP, DIFF CBC #### [address] Glucose [Mass/Vol] 144 mg/dL Normal [facility] Comment on above: Result Comment: [place] [facility] Glucose Reference Range is dependent on time and content of last meal. Glucose of more than 200 mg/dL in a nonstressed, ambulatory subject supports the diagnosis of Diabetes Mellitus. PERFORMED BY: [place] [address] PATHOLOGIST SPRING BENDER MELODY WHEELER M.D. Performed By: #### B MP, CBC #### [address] Hypochromia LM Ql (Bld)Order ed By: Irma Duran on 10-28-2023 Hypochromia Ql (Bld) Slight [facility] Lymphocytes/100 leukocytes i n Blood by Manual countOrdered By: Irma Duran on 10-28-2023 Lymphocytes/100 WBC (Bld) 24 % Normal 18-42 [facility] Comment on above: Performed By: #### B MP, DIFF CBC #### [address] Manual blood segmented neutr ophils/100 leukocytesOrdered By: Irma Duran on 10-28-2023 Segmented neutrophils/100 WBC (Bld) 56 % Normal 50-70 [facility] Comment on above: Performed By: #### B MP, DIFF CBC #### [place] [address] [place] [address] [place] Metamyelocytes/100 WBC Manua l cnt (Bld)Ordered By: Irma Duran on 10-28-2023 Metamyelocytes/100 WBC (Bld) 4 % 0-0 [facility] Monocytes/100 leukocytes in Blood by Manual countOrdered By: Irma Duran on 10-28-2023 Monocytes/100 WBC (Bld) 11 % Normal 2-11 [facility] Comment on above: Performed By: #### B MP, DIFF CBC #### [facility] [address] Myelocytes/100 WBC Manual cn t (Bld)Ordered By: Irma Duran on 10-28-2023 Myelocytes/100 WBC (Bld) 1 % 0-0 [facility] Peripheral white blood cell differential % bands, microscopic examOrdered By: Irma Duran on 10-28-2023 Band form neutrophils/100 WBC (Bld) 1 % Normal 0-5 [facility] Comment on above: Performed By: #### B MP, DIFF CBC #### [facility] [address] [place] [address] Platelet adequacy [Presence] in Blood by Light microscopyOrdered By: Irma Duran on 10-28-2023 Platelets LM Ql (Bld) Normal Normal [facility] Platelet morphology finding [Identifier] in BloodOrdered By: Irma Duran on 10-28-2023 Platelet morphology finding Nom (Bld) Normal Normal [facility] RBC morphologyOrdered By: Tae Duran on 10-28-2023 RBC morphology finding Nom (Bld) N/A [facility] Rouleaux detectionOrdered By : Irma Duran on 10-28-2023 Rouleaux LM Ql (Bld) Slight [facility] COVID CepheidOrdered By: Hosea Alaniz on 10-27-2023 SARS-CoV-2 (COVID-19) Ab IA Ql Positive Negative [facility] Comment on above: This is a duplicate Cepheid Xpert Xpress CoV-2/Flu/RSV Plus RNA by RT-PCR result to be used for statistical tracking purpose only. SARS-CoV-2 (COVID-19) RNA GARY+probe Ql (Unsp spec) [facility] COVID-19 / Flu A/B / RSV PCR on 10-27-2023 SARS-CoV-2 (COVID-19) RNA GARY+probe Ql (Unsp spec) COVID-19 Cepheid Result Positive for SARS-CoV-2 RNA by RT-PCR Flu A Cepheid Result Negative for Flu A RNA by RT-PCR Flu B Cepheid Result Negative for Flu B RNA by RT-PCR RSV Cepheid Result Negative for RSV RNA by RT-PCR COVID19 Blank Space ------ Reference: Negative COVID19 Blank Space ------ Cepheid Disclaimer The Cepheid Xpert Xpress CoV-2/Flu/RSV Plus has Cepheid Disclaimer not been FDA cleared or approved; this test has Cepheid Disclaimer been authorized by FDA under an EUA for use by Cepheid Disclaimer authorized laboratories; this test has been Cepheid Disclaimer authorized only for the simultaneous qualitative Cepheid Disclaimer detection and differentiation of nucleic acids from Cepheid Disclaimer SARS-CoV-2, influenza A, influenza B, and Cepheid Disclaimer respiratory syncytial virus (RSV), and not for any Cepheid Disclaimer other viruses or pathogens; and this test is only Cepheid Disclaimer authorized for the duration of the declaration that Cepheid Disclaimer circumstances exist justifying the authorization of Cepheid Disclaimer emergency use of in vitro diagnostic tests for Cepheid Disclaimer detection and/or diagnosis of COVID-19 under Cepheid Disclaimer Section 564(b)(1) of the Act, 21 U.S.C. 360bbb- Cepheid Disclaimer 3(b)(1), unless the authorization is terminated or Cepheid Disclaimer revoked sooner. Results called at 1031 on 10/27/23 PERFORMED BY: [place] [address] PATHOLOGIST SPRING BENDER MELODY WHEELER M.D. Normal [facility] Comment on above: Performed By: #### B MP, CBC #### [address] [address] [place] Cepheid COVID PCR Positiveon 10-27-2023 SARS-CoV-2 (COVID-19) RNA GARY+probe Ql (Unsp spec) Positive Critically abnormal Negative [facility] Comment on above: Result Comment: This is a duplicate Cepheid Xpert Xpress CoV-2/Flu/RSV Plus RNA by RT-PCR result to be used for statistical tracking purpose only. PERFORMED BY: [place] [address] PATHOLOGIST SPRING BENDER MELODY WHEELER M.D. Performed By: #### B MP, CBC #### [place] [id number] [place] Dipstick and Microscopicon 1 12-28-2022 Appearance (U) Clear Normal Clear [facility] Comment on above: Order Comment: Name Collection Type:: Voided Performed By: #### B MP, CBC #### [place] [address] [place] Bacteria,Urine None Seen Normal None Seen [facility] Comment on above: Order Comment: Name Collection Type:: Voided Performed By: #### B MP, CBC #### [place] [id number] [place] Bilirubin,Urine Negative Normal Negative [facility] Comment on above: Order Comment: Name Collection Type:: Voided Performed By: #### B MP, CBC #### [place] [id number] [place] Color (U) Yellow Normal Yellow [facility] Comment on above: Order Comment: Name Collection Type:: Voided Performed By: #### B MP, CBC #### [place] [id number] [place] Glucose Ql (U) Normal Normal Normal [facility] Comment on above: Order Comment: Name Collection Type:: Voided Performed By: #### B MP, CBC #### [address] Hyaline Casts,Urine 0-8 Normal 0-8 [facility] Comment on above: Order Comment: Name Collection Type:: Voided Result Comment: PERF ORMED BY: [place] [address] PATHOLOGIST SPRING BENDER MELODY WHEELER M.D. Performed By: #### B MP, CBC #### [address] Ketones Ql (U) Negative Normal Negative [facility] [facility] Comment on above: Order Comment: Name Collection Type:: Voided Performed By: #### B MP, CBC #### [address] Leukocyte esterase Test strip Ql (U) 3+ High Negative [facility] Comment on above: Order Comment: Name Collection Type:: Voided Performed By: #### B MP, CBC #### [place] [address] [place] Nitrite,Urine Negative Normal Negative [facility] Comment on above: Order Comment: Name Collection Type:: Voided Performed By: #### B MP, CBC #### [place] [address] [place] Occult Blood,Urine Negative Normal Negative [facility] Comment on above: Order Comment: Name Collection Type:: Voided Result Comment: PERF ORMED BY: [place] [address] PATHOLOGIST SPRING BENDER MELODY WHEELER M.D. Performed By: #### B MP, CBC #### [place] [address] [place] pH (U) 6.5 [pH] Normal 5.0-9.0 [facility] Comment on above: Order Comment: Name Collection Type:: Voided Performed By: #### B MP, CBC #### [place] [address] [place] Protein,Urine Negative Normal Negative [facility] Comment on above: Order Comment: Name Collection Type:: Voided Performed By: #### B MP, CBC #### [address] RBC,Urine 3-4 Normal 0-4 [facility] Comment on above: Order Comment: Name Collection Type:: Voided Performed By: #### B MP, CBC #### [address] Specificy [place],Urine 1.009 Normal 1.00 1-1.03 0 [facility] Comment on above: Order Comment: Name Collection Type:: Voided Performed By: #### B MP, CBC #### [address] Squamous Epithelial Cell,Urine None Seen Normal 0-2 [facility] Comment on above: Order Comment: Name Collection Type:: Voided Performed By: #### B MP, CBC #### [address] Urobilinogen,Urine Normal Normal Normal [facility] Comment on above: Order Comment: Name Collection Type:: Voided Performed By: #### B MP, CBC #### [place] [address] [place] WBC,Urine 20-49 High 0-4 [facility] Comment on above: Order Comment: Name Collection Type:: Voided Performed By: #### B MP, CBC #### [address] Glucose Poct Glucometerson 12-28-2022 Glucose [Mass/Vol] 156 mg/dL Normal [facility] Comment on above: Result Comment: [place] Glucose Reference Range is dependent on time and content of last meal. Glucose of more than 200 mg/dL in a nonstressed, ambulatory subject supports the diagnosis of Diabetes Mellitus. PERFORMED BY: [place] [address] PATHOLOGIST SPRING BENDER MELODY WHEELER M.D. Performed By: #### G LULS #### Point of Care testing , Glucose [Mass/Vol] 204 mg/dL Normal [facility] Comment on above: Result Comment: [place] om Glucose Reference Range is dependent on time and content of last meal. Glucose of more than 200 mg/dL in a nonstressed, ambulatory subject supports the diagnosis of Diabetes Mellitus. PERFORMED BY: [place] [address] PATHOLOGIST SPRING BENDER MELODY WHEELER M.D. Performed By: #### B MP, CBC #### [address] Glucose [Mass/Vol] 163 mg/dL Normal [facility] Comment on above: Result Comment: [place] om Glucose Reference Range is dependent on time and content of last meal. Glucose of more than 200 mg/dL in a nonstressed, ambulatory subject supports the diagnosis of Diabetes Mellitus. PERFORMED BY: [place] [address] PATHOLOGIST SPRING BENDER MELODY WHEELER M.D. Performed By: #### B MP, CBC #### [place] [id number] [facility] Urine Cultureon 10-27-2023 Bacteria identified Cx Nom (U) 20,000 colonies/ml mixed bacterial skin contaminants 2 Days PERFORMED BY: [place] [address] PATHOLOGIST SPRING BENDER MELODY WHEELER M.D. Normal [facility] Comment on above: Performed By: #### B MP, CBC #### [place] [id number] [facility] Urine culture routineOrdered By: Irma Duran on 10-27-2023 Bacteria identified Cx Nom (U) 2 Days [facility] XR chest 1V portableon 10-27 XR chest 1V portable [facility] [place] [address] [place] [address] XRay Report Signed Patient: Heidi Palmer MR#: [id number] 13 : 1940 Acct:[id number] Age/Sex: 83 / F ADM Date: 10/15/23 Loc: Room: 7O3118-5 Type: ADM IN Attending Dr: Anthony Alaniz MD Copies to: MD Dary Polo APRN Ordering Provider: Dary Kline APRN Date of Service: 10/27/23 XR/XR chest 1V portable: covid positive Plain film chest Single view HISTORY: Covid positive COMPARISON: 10/11/23 FINDINGS: SUPPORT DEVICES: None POSTSURGICAL CHANGES: None HEART: Within normal limits PULMONARY AMPARO: Within normal limits MEDIASTINUM: Unremarkable LUNGS AND PLEURA: Developing of mild basilar pleural-parenchymal changes. Mild interstitial prominence. No pneumothorax. BONY STRUCTURES: Intact ADDITIONAL FINDINGS None XR/XR chest 1V portable IMPRESSION: Developing mild basilar pleural-parenchymal changes. May consider failure. Infiltrate not excluded. Impression dictated by: Jamison Gay M.D.10/27/2023 4:48 PM Dictation Location: [place] [address] Transcribed By: [facility] 10/27/231647 Dictated By: Jamison Gay DO 10/27/231644 Signed By: 10/27/231647 Normal [facility] Glucose Poct Glucometerson 1 12-27-2022 Glucose [Mass/Vol] 148 mg/dL Normal [facility] Comment on above: Result Comment: [facility] Glucose Reference Range is dependent on time and content of last meal. Glucose of more than 200 mg/dL in a nonstressed, ambulatory subject supports the diagnosis of Diabetes Mellitus. PERFORMED BY: [place] [address] PATHOLOGIST SPRING BENDER MELODY WHEELER M.D. Performed By: #### B MP, CBC #### [address] Glucose [Mass/Vol] 175 mg/dL Normal [facility] Comment on above: Result Comment: [facility] Glucose Reference Range is dependent on time and content of last meal. Glucose of more than 200 mg/dL in a nonstressed, ambulatory subject supports the diagnosis of Diabetes Mellitus. PERFORMED BY: [place] [id number] PATHOLOGIST SPRING BENDER MELODY WHEELER M.D. Performed By: #### G LULS #### Point of Care testing , Glucose [Mass/Vol] 209 mg/dL Normal [facility] Comment on above: Result Comment: [place] om Glucose Reference Range is dependent on time and content of last meal. Glucose of more than 200 mg/dL in a nonstressed, ambulatory subject supports the diagnosis of Diabetes Mellitus. PERFORMED BY: [place] [id number] PATHOLOGIST SPRING BENDER MELODY WHEELER M.D. Performed By: #### B MP, CBC #### [address] Glucose [Mass/Vol] 132 mg/dL Normal [facility] Comment on above: Result Comment: [place] Glucose Reference Range is dependent on time and content of last meal. Glucose of more than 200 mg/dL in a nonstressed, ambulatory subject supports the diagnosis of Diabetes Mellitus. PERFORMED BY: [place] [id number] PATHOLOGIST SPRING BENDER MELODY WHEELER M.D. Performed By: #### B MP, CBC #### [address] XR hip RT min 2V(w/wo pelvis )*on 10-26-2023 XR hip RT min 2V(w/wo pelvis)* [facility] [place] [address] [place] [address] XRay Report Signed Patient: Heidi Palmer MR#: [id number] [birth year] : 1940 Acct:[id number] Age/Sex: 83 / F ADM Date: 10/15/23 Loc: Room: [address] [place] [address] Type: ADM IN Attending Dr: Anthony Alaniz MD Copies to: Anthony Alaniz MD Ordering Provider: Anthony Alaniz MD Date of Service: 10/26/23 XR/XR hip RT min 2V(w/wo pelvis)*: s/p hemiarthroplasty RIGHT HIP - 2 views: CLINICAL HISTORY: Recent hip replacement. Right hip pain. COMPARISON: 10/12/2023 AP and cross table lateral views were obtained. A right hip prosthesis is again visualized. The hardware appears intact and in appropriate position. There is no acute fracture or dislocation. The SI joint is intact. There is mild degenerative change involving the imaged lower lumbar spine. There are no significant soft tissue abnormalities. Lateral skin leo are again seen. XR/XR hip RT min 2V(w/wo pelvis)* IMPRESSION: STABLE HIP PROSTHESIS Impression dictated by: Angeli Arevalo M.D.10/26/2023 11:34 AM Dictation Location: [employer] Transcribed By: CHEKO 10/26/23 1134 Dictated By: Angeli Arevalo MD 10/26/23 1132 Signed By: 10/26/23 1134 Normal [facility] Glucose Poct Glucometerson 1 12-26-2022 Commemt1 Glu2: Cleaned Meter Normal [facility] Comment on above: Performed By: #### B MP, CBC #### [address] Commemt2 WILL NOTIFY DR/JANETH Normal [facility] Comment on above: Result Comment: PERF ORMED BY: [place] [address] PATHOLOGIST SPRING BENDER MELODY WHEELER M.D. Performed By: #### B MP, CBC #### [address] Glucose [Mass/Vol] 268 mg/dL Normal [facility] Comment on above: Result Comment: [facility] Glucose Reference Range is dependent on time and content of last meal. Glucose of more than 200 mg/dL in a nonstressed, ambulatory subject supports the diagnosis of Diabetes Mellitus. Performed By: #### B MP, CBC #### [facility] [address] [place] [id number] [facility] Commemt1 Glu2: Cleaned Meter Normal [facility] Comment on above: Result Comment: PERF ORMED BY: [place] [address] PATHOLOGIST SPRING BENDER MELODY WHEELER M.D. Performed By: #### B MP, CBC #### [place] [id number] [facility] Glucose [Mass/Vol] 198 mg/dL Normal [facility] Comment on above: Result Comment: [place] om Glucose Reference Range is dependent on time and content of last meal. Glucose of more than 200 mg/dL in a nonstressed, ambulatory subject supports the diagnosis of Diabetes Mellitus. Performed By: #### B MP, CBC #### [address] Commemt1 Glu2: Cleaned Meter Normal [facility] Comment on above: Result Comment: PERF ORMED BY: [place] [address] PATHOLOGIST SPRING BENDER MELODY WHEELER M.D. Performed By: #### B MP, CBC #### [place] [address] [place] Glucose [Mass/Vol] 239 mg/dL Normal [facility] Comment on above: Result Comment: [place] om Glucose Reference Range is dependent on time and content of last meal. Glucose of more than 200 mg/dL in a nonstressed, ambulatory subject supports the diagnosis of Diabetes Mellitus. Performed By: #### B MP, CBC #### [place] [address] [place] Commemt1 Glu2: Cleaned Meter Normal [facility] Comment on above: Result Comment: PERF ORMED BY: [place] [address] PATHOLOGIST SPRING BENDER MELODY WHEELER M.D. Performed By: #### B MP, CBC #### [place] [id number] [place] Glucose [Mass/Vol] 144 mg/dL Normal [facility] Comment on above: Result Comment: [place] om Glucose Reference Range is dependent on time and content of last meal. Glucose of more than 200 mg/dL in a nonstressed, ambulatory subject supports the diagnosis of Diabetes Mellitus. Performed By: #### B MP, CBC #### [facility] [address] [place] [address] No Panel InformationOrdered By: Anthony Alaniz on 10-25-2023 Bedside Glucose #[address]/rn [facility] Glucose Poct Glucometerson 1 12-25-2022 Glucose [Mass/Vol] 153 mg/dL Normal [facility] Comment on above: Result Comment: [place] om Glucose Reference Range is dependent on time and content of last meal. Glucose of more than 200 mg/dL in a nonstressed, ambulatory subject supports the diagnosis of Diabetes Mellitus. PERFORMED BY: [place] [address] PATHOLOGIST SPRING BENDER MELODY WHEELER M.D. Performed By: #### G LULS #### Point of Care testing , Glucose [Mass/Vol] 254 mg/dL Normal [facility] Comment on above: Result Comment: [place] Glucose Reference Range is dependent on time and content of last meal. Glucose of more than 200 mg/dL in a nonstressed, ambulatory subject supports the diagnosis of Diabetes Mellitus. PERFORMED BY: [place] [address] PATHOLOGIST SPRING BENDER MELODY WHEELER M.D. Performed By: #### G LULS #### Point of Care testing , Glucose [Mass/Vol] 347 mg/dL Normal [facility] Comment on above: Result Comment: [place] Glucose Reference Range is dependent on time and content of last meal. Glucose of more than 200 mg/dL in a nonstressed, ambulatory subject supports the diagnosis of Diabetes Mellitus. PERFORMED BY: [place] [address] PATHOLOGIST SPRING BENDER MELODY WHEELER M.D. Performed By: #### B MP, CBC #### [facility] [address] Glucose [Mass/Vol] 195 mg/dL Normal [facility] Comment on above: Result Comment: [place] om Glucose Reference Range is dependent on time and content of last meal. Glucose of more than 200 mg/dL in a nonstressed, ambulatory subject supports the diagnosis of Diabetes Mellitus. PERFORMED BY: [place] [address] PATHOLOGIST SPRING BENDER MELODY WHEELER M.D. Performed By: #### G OTONIEL #### Point of Care testing , Glucose Poct Glucometerson 1 12-24-2022 Glucose [Mass/Vol] 180 mg/dL Normal [facility] Comment on above: Result Comment: [place] om Glucose Reference Range is dependent on time and content of last meal. Glucose of more than 200 mg/dL in a nonstressed, ambulatory subject supports the diagnosis of Diabetes Mellitus. PERFORMED BY: [place] [address] PATHOLOGIST SPRING BENDER MELODY WHEELER M.D. Performed By: #### B MP, CBC #### [address] Glucose [Mass/Vol] 291 mg/dL Normal [facility] Comment on above: Result Comment: [place] om Glucose Reference Range is dependent on time and content of last meal. Glucose of more than 200 mg/dL in a nonstressed, ambulatory subject supports the diagnosis of Diabetes Mellitus. PERFORMED BY: [place] [address] PATHOLOGIST SPRING BENDER MELODY WHEELER M.D. Performed By: #### B MP, CBC #### [address] Glucose [Mass/Vol] 357 mg/dL Normal [facility] Comment on above: Result Comment: [place] om Glucose Reference Range is dependent on time and content of last meal. Glucose of more than 200 mg/dL in a nonstressed, ambulatory subject supports the diagnosis of Diabetes Mellitus. PERFORMED BY: [place] [address] PATHOLOGIST SPRING BENDER MELODY WHEELER M.D. Performed By: #### B MP, CBC #### [facility] [address] Glucose [Mass/Vol] 146 mg/dL Normal [facility] Comment on above: Result Comment: [place] Glucose Reference Range is dependent on time and content of last meal. Glucose of more than 200 mg/dL in a nonstressed, ambulatory subject supports the diagnosis of Diabetes Mellitus. PERFORMED BY: [place] [address] PATHOLOGIST SPRING BENDER MELODY WHEELER M.D. Performed By: #### B MP, DIFF CBC #### [facility] [address] Anisocytosis [Presence] in B lood by Light microscopyOrdered By: Irma Duran on 10-22-2023 Anisocytosis Ql (Bld) Slight Normal [facility] Comment on above: Performed By: #### B MP, DIFF CBC ####[address] Basic Metabolic Panelon 12 Anion gap [Moles/Vol] 8.7 mmol/L Normal 6.0-15.0 [facility] Comment on above: Performed By: #### B MP, DIFF CBC ####[address] Calcium [Mass/Vol] 8.8 mg/dL Normal 8.6-10.3 [facility] Comment on above: Performed By: #### B MP, DIFF CBC ####[address] Chloride [Moles/Vol] 100 mmol/L Normal 98-107 [facility] Comment on above: Performed By: #### B MP, DIFF CBC ####[place] [id number] [facility] CO2 [Moles/Vol] 29.7 mmol/L Normal 21.0-31.0 [facility] Comment on above: Performed By: #### B MP, DIFF CBC ####[place] [id number] [place] Creatinine [Mass/Vol] 0.82 mg/dL Normal 0.60-1.20 [facility] Comment on above: Performed By: #### B MP, DIFF CBC ####[place] [address] [place] [id number] [place] Creatinine Clr Calc Pharmacy 45.46 Normal [facility] Comment on above: Result Comment: PERF ORMED BY: [facility] [address] [place] [id number] PATHOLOGIST SPRING BENDER MELODY WHEELER M.D. Performed By: #### B MP, DIFF CBC ####[place] [id number] [place] GFR/1.73 sq M.predicted MDRD (S/P/Bld) [Vol rate/Area] mL/min/{1.73_m2} Normal [facility] Comment on above: Performed By: #### B MP, DIFF CBC ####[place] [id number] [facility] Glucose [Mass/Vol] 218 mg/dL High 70-100 [facility] Comment on above: Result Comment: [place] Glucose Reference Range is dependent on time and content of last meal. Glucose of more than 200 mg/dL in a nonstressed, ambulatory subject supports the diagnosis of Diabetes Mellitus. ADA recommended reference range Performed By: #### B MP, DIFF CBC ####[address] [address] [facility] Potassium [Moles/Vol] 4.4 mmol/L Normal 3.5-5.1 [facility] Comment on above: Performed By: #### B MP, DIFF CBC ####[place] [id number] [place] Sodium [Moles/Vol] 134 mmol/L Low 136-145 [facility] Comment on above: Performed By: #### B MP, DIFF CBC ####[place] [id number] [facility] Urea nitrogen [Mass/Vol] 15 mg/dL Normal 7-25 [facility] Comment on above: Performed By: #### B MP, DIFF CBC ####[place] [address] [place] [id number] [facility] [place] cells [Presence] in Blo od by Light microscopyOrdered By: Irma Duran on 10-22-2023 Donald cells LM Ql (Bld) Slight Fi [facility] Diff and CBCon 10-22-2023 Crenated RBC Slight Normal [facility] Comment on above: Performed By: #### B MP, DIFF CBC ####[address] Eosinophils/100 WBC (Bld) 3 % Normal 1-3 [facility] Comment on above: Performed By: #### B MP, DIFF CBC ####[address] Erythrocyte distribution width (RBC) [Ratio] 14.2 % Normal 11.9-15.3 [facility] Comment on above: Performed By: #### B MP, DIFF CBC ####[address] Giant Platelet Tally 1 /100{WBC} Normal [facility] Comment on above: Result Comment: PERF ORMED BY: [facility] [address] [facility] [address] PATHOLOGIST SPRING BENDER MELODY WHEELER M.D. Performed By: #### B MP, DIFF CBC ####[place] [id number] [facility] Hematocrit (Bld) [Volume fraction] 32.6 % Low 34.0-46.4 [facility] Comment on above: Performed By: #### B MP, DIFF CBC ####[place] [id number] [facility] Hemoglobin (Bld) [Mass/Vol] 10.9 g/dL Low 11.8-15.4 [facility] Comment on above: Performed By: #### B MP, DIFF CBC ####[place] [id number] [facility] Lymphocytes/100 WBC (Bld) 30 % Normal 18-42 [facility] Comment on above: Performed By: #### B MP, DIFF CBC ####[address] Macrocytosis Slight Normal [facility]ician [facility] Comment on above: Performed By: #### B MP, DIFF CBC ####[address] MCH (RBC) [Entitic mass] 30.4 pg Normal 24.7-34.3 [facility] Comment on above: Performed By: #### B MP, DIFF CBC ####[address] MCV (RBC) [Entitic vol] 90.6 fL Normal 80-100 T [facility] Physician [facility] Comment on above: Performed By: #### B MP, DIFF CBC ####[address] Mean Corpuscular HGB Conc 33.6 g/dL Normal 32.0-35.0 [facility] Comment on above: Performed By: #### B MP, DIFF CBC ####[address] Metamyelocytes 2 % High 0-0 [facility] Comment on above: Performed By: #### B MP, DIFF CBC ####[address] Microcytosis Slight Normal [facility] Comment on above: Performed By: #### B MP, DIFF CBC ####[address] Monocytes/100 WBC (Bld) 7 % Normal 2-11 T [facility] Physician [facility] Comment on above: Performed By: #### B MP, DIFF CBC ####[address] Myelocytes 5 % High 0-0 [facility] Comment on above: Performed By: #### B MP, DIFF CBC ####[address] Ovalocytes Slight Normal [facility] Comment on above: Performed By: #### B MP, DIFF CBC ####[address] [address] [facility] Platelet Estimate Normal Normal Normal [facility] Comment on above: Performed By: #### B MP, DIFF CBC ####[place] [id number] [facility] Platelet mean volume (Bld) [Entitic vol] 8.0 fL Normal 6.3-10.7 [facility] Comment on above: Result Comment: PERF ORMED BY: [facility] [address] [place] [id number] PATHOLOGIST SPRING BENDER MELODY WHEELER M.D. Performed By: #### B MP, DIFF CBC ####[place] [id number] [facility] Platelets (Bld) [#/Vol] 335 10*3/uL Normal 150-450 [facility] Comment on above: Performed By: #### B MP, DIFF CBC ####[place] [id number] [facility] Poikilocytosis Slight Normal [facility] Comment on above: Performed By: #### B MP, DIFF CBC ####[place] [id number] [facility] Polychromasia Slight Normal [facility] Comment on above: Performed By: #### B MP, DIFF CBC ####[place] [id number] [facility] RBC (Bld) [#/Vol] 3.60 10*6/uL Normal 3.60-5.00 [facility] Comment on above: Performed By: #### B MP, DIFF CBC ####[place] [id number] [facility] Segmented neutrophils/100 WBC (Bld) 54 % Normal 50-70 [facility] Comment on above: Performed By: #### B MP, DIFF CBC ####[place] [id number] [facility] Stomatocytes Slight Normal [facility] Comment on above: Performed By: #### B MP, DIFF CBC ####[facility] [place] [id number] [facility] WBC (Bld) [#/Vol] 9.1 10*3/uL Normal 3.8-11.6 [facility] Comment on above: Performed By: #### B MP, DIFF CBC ####[facility] [place] [id number] [facility] Giant platelets/100 leukocyt es [Ratio] in Blood by Manual countOrdered By: Irma Duran on 10-22-2023 Giant platelets/100 WBC Manual cnt (Bld) [Ratio] 1 /100{WBC} [facility] Glucose Poct Glucometerson 1 12-23-2022 Glucose [Mass/Vol] 254 mg/dL Normal [facility] Comment on above: Result Comment: [place] om Glucose Reference Range is dependent on time and content of last meal. Glucose of more than 200 mg/dL in a nonstressed, ambulatory subject supports the diagnosis of Diabetes Mellitus. PERFORMED BY: [place] [address] PATHOLOGIST SPRING BENDER MELODY WHEELER M.D. Performed By: #### B MP, CBC #### [address] Glucose [Mass/Vol] 238 mg/dL Normal [facility] Comment on above: Result Comment: [place] om Glucose Reference Range is dependent on time and content of last meal. Glucose of more than 200 mg/dL in a nonstressed, ambulatory subject supports the diagnosis of Diabetes Mellitus. PERFORMED BY: [place] [address] PATHOLOGIST SPRING BENDER MELODY WHEELER M.D. Performed By: #### B MP, CBC #### [address] Commemt1 Glu2: Cleaned Meter Normal [facility] Comment on above: Result Comment: PERF ORMED BY: [place] [address] PATHOLOGIST SPRING BENDER MELODY WHEELER M.D. Performed By: #### B MP, CBC #### [facility] [address] Glucose [Mass/Vol] 202 mg/dL Normal [facility] Comment on above: Result Comment: [place] [facility] Glucose Reference Range is dependent on time and content of last meal. Glucose of more than 200 mg/dL in a nonstressed, ambulatory subject supports the diagnosis of Diabetes Mellitus. Performed By: #### B MP, CBC #### [facility] [address] Commemt1 Glu2: Cleaned Meter Normal [facility] Comment on above: Result Comment: PERF ORMED BY: [place] [address] PATHOLOGIST SPRING BENDER MELODY WHEELER M.D. Performed By: #### G LULS ####Point of Care testing, Glucose [Mass/Vol] 261 mg/dL Normal [facility] Comment on above: Result Comment: [place] [facility] Glucose Reference Range is dependent on time and content of last meal. Glucose of more than 200 mg/dL in a nonstressed, ambulatory subject supports the diagnosis of Diabetes Mellitus. Performed By: #### G LULS ####Point of Care testing, Macrocytes LM Ql (Bld)Ordere d By: Irma Duran on 10-22-2023 Macrocytes Ql (Bld) [facility] Microcytes LM Ql (Bld)Ordere d By: Irma Duran on 10-22-2023 Microcytes Ql (Bld) [facility] Ovalocyte detectionOrdered B y: Irma Duran on 10-22-2023 Ovalocytes LM Ql (Bld) [facility] Poikilocytosis [Presence] in Blood by Light microscopyOrdered By: Irma Duran on 10-22-2023 Poikilocytosis LM Ql (Bld) [facility] Polychromasia [Presence] in Blood by Light microscopyOrdered By: Irma Duran on 10-22-2023 Polychromasia LM Ql (Bld) [facility] Red blood cell stomatocyte d etectionOrdered By: Irma Duran on 10-22-2023 Stomatocytes LM Ql (Bld) [facility] US venous duplex LE BIon US venous duplex LE BI [facility] Main [place] [address] [place] [id number] Ultrasound Report Signed Patient: Heidi Palmer MR#: [id number] 13 : 1940 Acct:[id number] Age/Sex: 83 / F ADM Date: 10/15/23 Loc: Room: [address] [place] [address] Type: ADM IN Attending Dr: Anthony Alaniz MD Ordering Provider: Irma Duran APRN Date of Service: 10/21/23 US/US venous duplex LE BI: leg swelling, postop Copies to: FRANK Wood MD BILATERAL LOWER EXTREMITY VENOUS DUPLEX INDICATION: Painful swollen legs PROCEDURE: Color-flow duplex scanning is used to interrogate the deep venous system of the right and left lower extremities. The common femoral vein, femoral vein and popliteal vein show good compressibility with normal proximal and distal augmentation. The posterior tibial and peroneal veins are compressible. US/US venous duplex LE BI IMPRESSION: NO EVIDENCE FOR DEEP VEIN THROMBOSIS OR PROXIMAL SUPERFICIAL THROMBOPHLEBITIS IN THE RIGHT OR LEFT LOWER EXTREMITY. Impression dictated by: Jamison Dale M.D.10/22/2023 3:23 PM Dictation Location: [place] [address] Tech: Bethany Moses Transcribed By: CHEKO 10/22/23 152 Dictated By: Jamison Dale MD 10/22/23 152 Signed By: 10/22/23 152 Normal [facility] Glucose Poct Glucometerson 1 12-22-2022 Glucose [Mass/Vol] 223 mg/dL Normal [facility] Comment on above: Result Comment: [facility] Glucose Reference Range is dependent on time and content of last meal. Glucose of more than 200 mg/dL in a nonstressed, ambulatory subject supports the diagnosis of Diabetes Mellitus. PERFORMED BY: [address] [address] PATHOLOGIST SPRING BENDER MELODY WHEELER M.D. Performed By: #### G LULS ####Point of Care testing, Glucose [Mass/Vol] 218 mg/dL Normal [facility] Comment on above: Result Comment: [facility] Glucose Reference Range is dependent on time and content of last meal. Glucose of more than 200 mg/dL in a nonstressed, ambulatory subject supports the diagnosis of Diabetes Mellitus. PERFORMED BY: [place] [id number] PATHOLOGIST SPRING BENDER MELODY WHEELER M.D. Performed By: #### G LULS ####Point of Care testing, Glucose [Mass/Vol] 329 mg/dL Normal [facility] Comment on above: Result Comment: [facility] Glucose Reference Range is dependent on time and content of last meal. Glucose of more than 200 mg/dL in a nonstressed, ambulatory subject supports the diagnosis of Diabetes Mellitus. PERFORMED BY: [place] [id number] PATHOLOGIST SPRING BENDER MELODY WHEELER M.D. Performed By: #### G LULS ####Point of Care testing, Glucose [Mass/Vol] 251 mg/dL Normal [facility] Comment on above: Result Comment: [facility] Glucose Reference Range is dependent on time and content of last meal. Glucose of more than 200 mg/dL in a nonstressed, ambulatory subject supports the diagnosis of Diabetes Mellitus. PERFORMED BY: [address] [address] PATHOLOGIST SPRING BENDER MELODY WHEELER M.D. Performed By: #### G LULS #### Point of Care testing , ECG 12 lead ECGon 10-20-2023 ECG 12 lead ECG [facility] Main [place] [address] [place] [address] Electrocardiograph Report Signed Patient: Heidi Palmer MR#: [id number] 13 : 1940 Acct:[id number] Age/Sex: 83 / F ADM Date: 10/15/23 Loc: Room: [address] [place] [address] Type: ADM IN Attending Dr: Anthony Alaniz MD Ordering Provider: Irma FRANK Duran Date of Service: 10/20/23 ECG/ECG 12 lead ECG: qt surveillance Copies to: Test Reason : Blood Pressure : / mmHG Vent. Rate : 062 BPM Atrial Rate : 062 BPM P-R Int : 176 ms QRS Dur : 086 ms QT Int : 422 ms P-R-T Axes : 050 -12 053 degrees QTc Int : 428 ms Normal sinus rhythm Poor anterior R wave progression, cannot exclude prior infarctl Abnormal ECG When compared with ECG of 16-OCT-2023 09:27, No significant change was found Confirmed by ISMAEL MOORE MD ([id number]) on 10/20/2023 11:40:29 AM Referred By: Electronically Signed By:ISMAEL MOORE MD Transcribed By: MUS Signed By Ismael Moore MD 1140 Normal [facility] Glucose Poct Glucometerson 1 12-21-2022 Glucose [Mass/Vol] 270 mg/dL Normal [facility] Comment on above: Result Comment: [facility] Glucose Reference Range is dependent on time and content of last meal. Glucose of more than 200 mg/dL in a nonstressed, ambulatory subject supports the diagnosis of Diabetes Mellitus. PERFORMED BY: [place] [address] PATHOLOGIST SPRING BENDER MELODY WHEELER M.D. Performed By: #### B MP, CBC #### [address] Glucose [Mass/Vol] 282 mg/dL Normal [facility] Comment on above: Result Comment: [facility] Glucose Reference Range is dependent on time and content of last meal. Glucose of more than 200 mg/dL in a nonstressed, ambulatory subject supports the diagnosis of Diabetes Mellitus. PERFORMED BY: [place] [address] PATHOLOGIST SPRING BENDER MELODY WHEELER M.D. Performed By: #### G LULS #### Point of Care testing , Glucose [Mass/Vol] 350 mg/dL Normal [facility] Comment on above: Result Comment: [place] [facility] Glucose Reference Range is dependent on time and content of last meal. Glucose of more than 200 mg/dL in a nonstressed, ambulatory subject supports the diagnosis of Diabetes Mellitus. PERFORMED BY: [place] [address] PATHOLOGIST SPRING BENDER MELODY WHEELER M.D. Performed By: #### B MP, CBC #### [facility] [address] [place] [address] Commemt1 Glu2: Cleaned Meter Normal [facility] Comment on above: Result Comment: PERF ORMED BY: [place] [address] PATHOLOGIST SPRING BENDER MELODY WHEELER M.D. Performed By: #### G KAYLS #### Point of Care testing , Glucose [Mass/Vol] 260 mg/dL Normal [facility] Comment on above: Result Comment: [place] [facility] Glucose Reference Range is dependent on time and content of last meal. Glucose of more than 200 mg/dL in a nonstressed, ambulatory subject supports the diagnosis of Diabetes Mellitus. Performed By: #### G LULS #### Point of Care testing , Glucose Poct Glucometerson 1 12-20-2022 Glucose [Mass/Vol] 261 mg/dL Normal [facility] Comment on above: Result Comment: [place] [facility] Glucose Reference Range is dependent on time and content of last meal. Glucose of more than 200 mg/dL in a nonstressed, ambulatory subject supports the diagnosis of Diabetes Mellitus. PERFORMED BY: [place] [address] PATHOLOGIST SPRING BENDER MELODY WHEELER M.D. Performed By: #### B MP, CBC #### [facility] [address] [place] [address] Glucose [Mass/Vol] 246 mg/dL Normal [facility] Comment on above: Result Comment: [place] [facility] Glucose Reference Range is dependent on time and content of last meal. Glucose of more than 200 mg/dL in a nonstressed, ambulatory subject supports the diagnosis of Diabetes Mellitus. PERFORMED BY: [address] [place] [address] PATHOLOGIST SPRING BENDER MELODY WHEELER M.D. Performed By: #### G LULS #### Point of Care testing , Commemt1 Glu2: Cleaned Meter Normal [facility] Comment on above: Result Comment: PERF ORMED BY: [facility] [address] [place] [address] PATHOLOGIST SPRING BENDER MELODY WHEELER M.D. Performed By: #### G LULS #### Point of Care testing , Glucose [Mass/Vol] 251 mg/dL Normal [facility] Comment on above: Result Comment: [place] [facility] Glucose Reference Range is dependent on time and content of last meal. Glucose of more than 200 mg/dL in a nonstressed, ambulatory subject supports the diagnosis of Diabetes Mellitus. Performed By: #### G LULS #### Point of Care testing , Commemt1 Glu2: Cleaned Meter Normal [facility] Comment on above: Result Comment: PERF ORMED BY: [address] [place] [address] PATHOLOGIST SPRING BENDER MELODY WHEELER M.D. Performed By: #### G LULS #### Point of Care testing , Glucose [Mass/Vol] 251 mg/dL Normal [facility] Comment on above: Result Comment: [place] [facility] Glucose Reference Range is dependent on time and content of last meal. Glucose of more than 200 mg/dL in a nonstressed, ambulatory subject supports the diagnosis of Diabetes Mellitus. Performed By: #### G LULS #### Point of Care testing , Glucose Poct Glucometerson 1 12-19-2022 Glucose [Mass/Vol] 352 mg/dL Normal [facility] Comment on above: Result Comment: [place] [facility] Glucose Reference Range is dependent on time and content of last meal. Glucose of more than 200 mg/dL in a nonstressed, ambulatory subject supports the diagnosis of Diabetes Mellitus. PERFORMED BY: [address] [place] [address] PATHOLOGIST SPRING BENDER MELODY WHEELER M.D. Performed By: #### G LULS #### Point of Care testing , Commemt1 Glu2: Cleaned Meter Normal [facility] Comment on above: Result Comment: PERF ORMED BY: [place] [phone] PATHOLOGIST SPRING BENDER MELODY WHEELER M.D. Performed By: #### G LULS #### Point of Care testing , Glucose [Mass/Vol] 294 mg/dL Normal [facility] Comment on above: Result Comment: [place] [facility] Glucose Reference Range is dependent on time and content of last meal. Glucose of more than 200 mg/dL in a nonstressed, ambulatory subject supports the diagnosis of Diabetes Mellitus. Performed By: #### G LULS #### Point of Care testing , Commemt1 Glu2: Cleaned Meter Normal [facility] Comment on above: Result Comment: PERF ORMED BY: [place] [phone] PATHOLOGIST SPRING BENDER MELODY WHEELER M.D. Performed By: #### G LULS #### Point of Care testing , Glucose [Mass/Vol] 288 mg/dL Normal [facility] Comment on above: Result Comment: [place] [facility] Glucose Reference Range is dependent on time and content of last meal. Glucose of more than 200 mg/dL in a nonstressed, ambulatory subject supports the diagnosis of Diabetes Mellitus. Performed By: #### G LULS #### Point of Care testing , Commemt1 Glu2: Cleaned Meter Normal [facility] Comment on above: Result Comment: PERF ORMED BY: [place] [phone] PATHOLOGIST SPRING BENDER MELODY WHEELER M.D. Performed By: #### B MP, DIFF CBC #### [address] Glucose [Mass/Vol] 266 mg/dL Normal [facility] Comment on above: Result Comment: [place] [facility] Glucose Reference Range is dependent on time and content of last meal. Glucose of more than 200 mg/dL in a nonstressed, ambulatory subject supports the diagnosis of Diabetes Mellitus. Performed By: #### B MP, DIFF CBC #### [facility] [address] XR elbow LT min 3V*on 2022 XR elbow LT min 3V* [facility] Main [place] [address] [place] [address] XRay Report Signed Patient: Heidi Palmer MR#: [id number] 13 : 1940 Acct:[id number] Age/Sex: 83 / F ADM Date: 10/15/23 Loc: Room: [address] [place] [address] Type: ADM IN Attending Dr: Anthony Alaniz MD Copies to: Anthony Alaniz MD Ordering Provider: Anthony Alaniz MD Date of Service: 10/18/23 XR/XR elbow LT min 3V*: elbow pain post fall, h/o fracture XR elbow LT min 3V* 10/18/2023 11:13 AM SIGNS AND SYMPTOMS: Left elbow pain PROTOCOL: Frontal, lateral, and oblique radiographs of the left elbow COMPARISON: 03/30/2023 FINDINGS: The joint spaces are preserved. There is no fracture or dislocation. There is mild spurring of the coronoid process similar to the prior exam. There is a healed or healing fracture of the junction of the radial neck and head with a smaller joint effusion. XR/XR elbow LT min 3V* IMPRESSION: There is a healed or healing fracture of the junction of the radial neck and head with a smaller joint effusion. No acute displaced fracture. Impression dictated by: Tomasz Lerner M.D.10/18/2023 3:19 PM Dictation Location: [place] [address] Transcribed By: [facility] 10/18/23 151 Dictated By: Tomasz Lerner II, MD 10/18/231516 Signed By: 10/18/23 151 Normal [facility] Glucose Poct Glucometerson 1 12-18-2022 Glucose [Mass/Vol] 352 mg/dL Normal [facility] Comment on above: Result Comment: [facility] Glucose Reference Range is dependent on time and content of last meal. Glucose of more than 200 mg/dL in a nonstressed, ambulatory subject supports the diagnosis of Diabetes Mellitus. PERFORMED BY: [address] [place] [id number] PATHOLOGIST SPRING BENDER MELODY WHEELER M.D. Performed By: #### G LULS #### Point of Care testing , Glucose [Mass/Vol] 313 mg/dL Normal [facility] Comment on above: Result Comment: [place] [facility] Glucose Reference Range is dependent on time and content of last meal. Glucose of more than 200 mg/dL in a nonstressed, ambulatory subject supports the diagnosis of Diabetes Mellitus. PERFORMED BY: [address] [place] [address] PATHOLOGIST SPRING BENDER MELODY WHEELER M.D. Performed By: #### G LULS #### Point of Care testing , Commemt1 Glu2: Cleaned Meter Normal [facility] Comment on above: Result Comment: PERF ORMED BY: [address] [place] [address] PATHOLOGIST SPRING BENDER MELODY WHEELER M.D. Performed By: #### G LULS ####Point of Care testing, Glucose [Mass/Vol] 335 mg/dL Normal [facility] Comment on above: Result Comment: [place] [facility] Glucose Reference Range is dependent on time and content of last meal. Glucose of more than 200 mg/dL in a nonstressed, ambulatory subject supports the diagnosis of Diabetes Mellitus. Performed By: #### G LULS ####Point of Care testing, Glucose [Mass/Vol] 228 mg/dL Normal [facility] Comment on above: Result Comment: [place] [facility] Glucose Reference Range is dependent on time and content of last meal. Glucose of more than 200 mg/dL in a nonstressed, ambulatory subject supports the diagnosis of Diabetes Mellitus. PERFORMED BY: [address] [place] [address] PATHOLOGIST SPRING BENDER MELODY WHEELER M.D. Performed By: #### G LULS ####Point of Care testing, Alanine aminotransferase [En zymatic activity/volume] in Serum or PlasmaOrdered By: Anthony Alaniz on 10-16-2023 ALT [Catalytic activity/Vol] 6 U/L Low 7-52 [facility] Comment on above: Performed By: #### B MP, DIFF CBC #### [address] Albumin [Mass/volume] in Ser um or Plasma by Bromocresol green (BCG) dye binding methoOrdered By: Anthony Pichardoey on 10-16-2023 Albumin BCG dye [Mass/Vol] 2.6 g/dL 3.5-5.7 [facility] Alkaline phosphatase [Enzyma tic activity/volume] in Serum or PlasmaOrdered By: Anthony Corbin on 10-16-2023 ALP [Catalytic activity/Vol] 50 U/L Normal 34-104 [facility] Comment on above: Performed By: #### B MP, DIFF CBC #### [address] Aspartate aminotransferase [ Enzymatic activity/volume] in Serum or PlasmaOrdered By: Anthony Corbin on 10-16-2023 AST [Catalytic activity/Vol] 12 U/L Low 13-39 [facility] Comment on above: Performed By: #### B MP, DIFF CBC #### [address] Bilirubin.total [Mass/volume ] in Serum or PlasmaOrdered By: Anthony Corbin on 10-16-2023 Bilirubin [Mass/Vol] 0.7 mg/dL Normal 0.3-1.0 [facility] Comment on above: Performed By: #### B MP, DIFF CBC #### [address] Complete Blood Count Auto Di ffon 10-16-2023 Basophils (Bld) [#/Vol] 0.1 10*3/uL Normal 0.0-0.2 [facility] Comment on above: Result Comment: PERF ORMED BY: [place] [address] PATHOLOGIST SPRING BENDER MELODY WHEELER M.D. Performed By: #### B MP, DIFF CBC #### [address] Basophils/100 WBC (Bld) 0.8 % Normal . [facility] Comment on above: Performed By: #### B MP, DIFF CBC #### [address] Eosinophils (Bld) [#/Vol] 0.1 10*3/uL Normal 0.0-0.45 [facility] Comment on above: Performed By: #### B MP, DIFF CBC #### [address] Eosinophils/100 WBC (Bld) 1.6 % Normal . [facility] Comment on above: Performed By: #### B MP, DIFF CBC #### [address] Erythrocyte distribution width (RBC) [Ratio] 13.9 % Normal 11.9-15.3 [facility] Comment on above: Performed By: #### B MP, DIFF CBC #### [address] Hematocrit (Bld) [Volume fraction] 31.4 % Low 34.0-46.4 [facility] Comment on above: Performed By: #### B MP, DIFF CBC #### [place] [address] [place] Hemoglobin (Bld) [Mass/Vol] 10.6 g/dL Low 11.8-15.4 [facility] Comment on above: Performed By: #### B MP, DIFF CBC #### [place] [address] [place] Lymphocytes (Bld) [#/Vol] 1.5 10*3/uL Normal 1.00-4.8 [facility] Comment on above: Performed By: #### B MP, DIFF CBC #### [place] [address] [place] Lymphocytes/100 WBC (Bld) 18.4 % Normal . [facility] Comment on above: Performed By: #### B MP, DIFF CBC #### [address] [address] [place] MCH (RBC) [Entitic mass] 30.5 pg Normal 24.7-34.3 [facility] Comment on above: Performed By: #### B MP, DIFF CBC #### [address] MCV (RBC) [Entitic vol] 90.3 fL Normal 80-100 [facility] Comment on above: Performed By: #### B MP, DIFF CBC #### [address] Mean Corpuscular HGB Conc 33.7 g/dL Normal 32.0-35.0 [facility] Comment on above: Performed By: #### B MP, DIFF CBC #### [address] Monocytes (Bld) [#/Vol] 1.4 10*3/uL High 0.0-0.8 [facility] Comment on above: Performed By: #### B MP, DIFF CBC #### [address] Monocytes/100 WBC (Bld) 17.1 % Normal . [facility] Comment on above: Performed By: #### B MP, DIFF CBC #### [address] Neutrophils (Bld) [#/Vol] 5.2 10*3/uL Normal 1.8-7.7 [facility] Comment on above: Performed By: #### B MP, DIFF CBC #### [address] Neutrophils/100 WBC (Bld) 62.1 % Normal . [facility] Comment on above: Performed By: #### B MP, DIFF CBC #### [address] NRBC% 0.1 /100{WBC} Normal 0-0.5 [facility] Comment on above: Performed By: #### B MP, DIFF CBC #### [address] Platelet mean volume (Bld) [Entitic vol] 9.0 fL Normal 6.3-10.7 [facility] Comment on above: Performed By: #### B MP, DIFF CBC #### [address] Platelets (Bld) [#/Vol] 247 10*3/uL Normal 150-450 [facility] Comment on above: Performed By: #### B MP, DIFF CBC #### [address] RBC (Bld) [#/Vol] 3.47 10*6/uL Low 3.60-5.00 [facility] Comment on above: Performed By: #### B MP, DIFF CBC #### [address] WBC (Bld) [#/Vol] 8.4 10*3/uL Normal 3.8-11.6 [facility] Comment on above: Performed By: #### B MP, DIFF CBC #### [address] Comprehensive Metabolic Pane perez 10-16-2023 Albumin [Mass/Vol] 2.6 g/dL Low 3.5-5.7 [facility] Comment on above: Performed By: #### B MP, DIFF CBC #### [address] Anion gap [Moles/Vol] 9.7 mmol/L Normal 6.0-15.0 [facility] Comment on above: Performed By: #### B MP, DIFF CBC #### [address] Calcium [Mass/Vol] 8.4 mg/dL Low 8.6-10.3 [facility] Comment on above: Performed By: #### B MP, DIFF CBC #### [address] Chloride [Moles/Vol] 100 mmol/L Normal 98-107 [facility] Comment on above: Performed By: #### B MP, DIFF CBC #### [facility] [address] [place] [address] [place] CO2 [Moles/Vol] 29.9 mmol/L Normal 21.0-31.0 [facility] Comment on above: Performed By: #### B MP, DIFF CBC #### [facility] [address] [place] [address] [place] Creatinine [Mass/Vol] 0.57 mg/dL Low 0.60-1.20 [facility] Comment on above: Performed By: #### B MP, DIFF CBC #### [facility] [address] [place] [address] [place] Creatinine Clr Calc Pharmacy 46.33 Normal [facility] Comment on above: Performed By: #### B MP, DIFF CBC #### [place] [address] [place] GFR/1.73 sq M.predicted MDRD (S/P/Bld) [Vol rate/Area] mL/min/{1.73_m2} Normal [facility] Comment on above: Performed By: #### B MP, DIFF CBC #### [place] [address] [place] Glucose [Mass/Vol] 217 mg/dL High 70-100 [facility] Comment on above: Result Comment: [place] Glucose Reference Range is dependent on time and content of last meal. Glucose of more than 200 mg/dL in a nonstressed, ambulatory subject supports the diagnosis of Diabetes Mellitus. ADA recommended reference range Performed By: #### B MP, DIFF CBC #### [facility] [address] [place] [address] [place] Potassium [Moles/Vol] 4.6 mmol/L Normal 3.5-5.1 [facility] Comment on above: Performed By: #### B MP, DIFF CBC #### [facility] [address] [place] [address] [place] Sodium [Moles/Vol] 135 mmol/L Low 136-145 [facility] Comment on above: Performed By: #### B MP, DIFF CBC #### [address] [place] [address] [place] Urea nitrogen [Mass/Vol] 12 mg/dL Normal 7-25 The [facility] Comment on above: Performed By: #### B MP, DIFF CBC #### [facility] [address] [place], [place] [id number] [facility] ECG 12 lead ECGon 10-16-2023 ECG 12 lead ECG [facility] [place] [address] [place] [address] Electrocardiograph Report Signed Patient: Heidi Palmer MR#: [id number] [birth year] : 1940 Acct:[id number] Age/Sex: 83 / F ADM Date: 10/15/23 Loc: Room: [address] [place] [address] Type: ADM IN Attending Dr: Anthony Alaniz MD Ordering Provider: Last [place] MD Date of Service: 10/16/2307/31/915 ECG/ECG 12 lead ECG: QTc interval Copies to: Test Reason : Blood Pressure : / mmHG Vent. 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 Glucose of more than 200 mg/dL in a nonstressed, ambulatory subject supports the diagnosis of Diabetes Mellitus. PERFORMED BY: [place] [id number] PATHOLOGIST SPRING BENDER MELODY WHEELER M.D. Performed By: #### G LULS ####Point of Care testing, Glucose [Mass/Vol] 235 mg/dL Normal [facility] Comment on above: Result Comment: [place] om Glucose Reference Range is dependent on time and content of last meal. Glucose of more than 200 mg/dL in a nonstressed, ambulatory subject supports the diagnosis of Diabetes Mellitus. PERFORMED BY: [place] [phone] PATHOLOGIST SPRING BENDER MELODY WHEELER M.D. Performed By: #### G LULS ####Point of Care testing, Glucose [Mass/Vol] 322 mg/dL Normal [facility] Comment on above: Result Comment: [place] om Glucose Reference Range is dependent on time and content of last meal. Glucose of more than 200 mg/dL in a nonstressed, ambulatory subject supports the diagnosis of Diabetes Mellitus. PERFORMED BY: [place] [phone] PATHOLOGIST SPRING BENDER MELODY WHEELER M.D. Performed By: #### B MP, CBC #### [address] Glucose [Mass/Vol] 222 mg/dL Normal [facility] Comment on above: Result Comment: [place] om Glucose Reference Range is dependent on time and content of last meal. Glucose of more than 200 mg/dL in a nonstressed, ambulatory subject supports the diagnosis of Diabetes Mellitus. PERFORMED BY: [place] [address] PATHOLOGIST SPRING BENDER MELODY WHEELER M.D. Performed By: #### G LULS #### Point of Care testing , Prealbumin [Mass/volume] in Serum or PlasmaOrdered By: Anthony Alaniz on 10-16-2023 Prealbumin [Mass/Vol] 9.8 mg/dL Low 17.0-34.0 [facility] Comment on above: Result Comment: PERF ORMED BY: [place] [address] PATHOLOGIST SPRING BENDER MELODY WHEELER M.D. Performed By: #### B MP, DIFF CBC #### [facility] [address] Protein [Mass/volume] in Ser um or PlasmaOrdered By: Anthony Alaniz on 10-16-2023 Protein [Mass/Vol] 4.8 g/dL Low 6.4-8.9 [facility] Comment on above: Performed By: #### B MP, DIFF CBC #### [facility] [address] Serum globulin measurement b y calculation (mass/volume)Ordered By: Anthony Alaniz on 10-16-2023 Globulin (S) [Mass/Vol] 2.2 g/dL Normal [facility] Comment on above: Performed By: #### B MP, DIFF CBC #### [address] Serum or plasma albumin/glob ulin mass ratioOrdered By: Anthony Alaniz on 10-16-2023 Albumin/Globulin [Mass ratio] 1.2 {ratio} Normal [facility] Comment on above: Performed By: #### B MP, DIFF CBC #### [facility] [address] Capillary blood glucose radhames urement by glucometer (mass/volume)Ordered By: Chin Rodarte on 10-15-2023 Glucose [Mass/Vol] 263 mg/dL Normal [facility] Comment on above: Random Glucose Refer ence Range is dependent on time and content of last meal. Glucose of more than 200 mg/dL in a nonstressed, ambulatory subject supports the diagnosis of Diabetes Mellitus. Result Comment: [facility] Glucose Reference Range is dependent on time and content of last meal. Glucose of more than 200 mg/dL in a nonstressed, ambulatory subject supports the diagnosis of Diabetes Mellitus. Performed By: #### G LULS #### Point of Care testing , Glucose Poct Glucometerson 1 12-16-2022 Glucose [Mass/Vol] 216 mg/dL Normal [facility] Comment on above: Result Comment: [facility] Glucose Reference Range is dependent on time and content of last meal. Glucose of more than 200 mg/dL in a nonstressed, ambulatory subject supports the diagnosis of Diabetes Mellitus. PERFORMED BY: [address] [place] [address] PATHOLOGIST SPRING BENDER MELODY WHEELER M.D. Performed By: #### B MP, CBC #### [address] Commemt1 Glu2: Cleaned Meter Normal [facility] Comment on above: Result Comment: PERF ORMED BY: [place] [address] PATHOLOGIST SPRING BENDER MELODY WHEELER M.D. Performed By: #### B MP, CBC #### [address] Glucose [Mass/Vol] 233 mg/dL Normal [facility] Comment on above: Result Comment: [place] om Glucose Reference Range is dependent on time and content of last meal. Glucose of more than 200 mg/dL in a nonstressed, ambulatory subject supports the diagnosis of Diabetes Mellitus. Performed By: #### B MP, CBC #### [address] Commemt1 Glu2: Cleaned Meter Normal [facility] Comment on above: Result Comment: PERF ORMED BY: [place] [id number] PATHOLOGIST SPRING BENDER MELODY WHEELER M.D. Performed By: #### G LULS #### Point of Care testing , Glucose [Mass/Vol] 250 mg/dL Normal [facility] Comment on above: Result Comment: [place] om Glucose Reference Range is dependent on time and content of last meal. Glucose of more than 200 mg/dL in a nonstressed, ambulatory subject supports the diagnosis of Diabetes Mellitus. PERFORMED BY: [address] [place] [id number] PATHOLOGIST SPRING BENDER MELODY WHEELER M.D. Performed By: #### B MP, CBC #### [place] [id number] [place] No Panel InformationOrdered By: Chin Rodarte on 10-15-2023 Bedside Glucose Comment Glu2: cleaned meter [facility] Automated basophil %Ordered By: Ismael Booth on 10-14-2023 Basophils/100 WBC (Bld) 0.5 % Normal . [facility] Comment on above: Performed By: #### G LULS #### Point of Care testing , Automated basophil countOrde red By: Ismael Booth on 10-14-2023 Basophils (Bld) [#/Vol] 0.1 10*3/uL Normal 0.0-0.2 [facility] Comment on above: Performed By: #### G LULS #### Point of Care testing , Automated blood monocyte cou ntOrdered By: Ismael Booth on 10-14-2023 Monocytes (Bld) [#/Vol] 2.1 10*3/uL High 0.0-0.8 [facility] Comment on above: Performed By: #### G LULS #### Point of Care testing , Automated eosinophil %Ordere d By: Ismael Booth on 10-14-2023 Eosinophils/100 WBC (Bld) 0.4 % Normal . [facility] Comment on above: Performed By: #### G LULS #### Point of Care testing , Automated eosinophil countOr dered By: Ismael Booth on 10-14-2023 Eosinophils (Bld) [#/Vol] 0.0 10*3/uL Normal 0.0-0.45 [facility] Comment on above: Performed By: #### G LULS #### Point of Care testing , Automated monocyte %Ordered By: Ismael Booth on 10-14-2023 Monocytes/100 WBC (Bld) 17.8 % Normal . [facility] Comment on above: Performed By: #### G LULS #### Point of Care testing , Automated neutrophil %Ordere d By: Ismael Booth on 10-14-2023 Neutrophils/100 WBC (Bld) 66.9 % Normal . [facility] Comment on above: Performed By: #### G LULS #### Point of Care testing , Basic Metabolic Panelon Creatinine Clr Calc Pharmacy 47.62 Normal [facility] Comment on above: Result Comment: PERF ORMED BY: [place] [address] PATHOLOGIST SPRING BENDER MELODY WHEELER M.D. Performed By: #### B MP, CBC #### [address] GFR/1.73 sq M.predicted MDRD (S/P/Bld) [Vol rate/Area] mL/min/{1.73_m2} Normal [facility] Comment on above: Performed By: #### B MP, CBC #### [address] Ca 27.29on 10-14-2023 Ca 27.29 28.1 Normal 0.0-38.6 [facility] Comment on above: Result Comment: [employer] Immunochemiluminometric Methodology (ICMA) Values obtained with different assay methods or kits cannot be used interchangeably. Results cannot be interpreted as absolute evidence of the presence or absence of malignant disease. Performed at: [address] [id number] [employer] Worker: José Manuel Petersen PhD, Phone: [phone] PERFORMED BY: [place] [address] PATHOLOGIST SPRING BENDER MELODY WHEELER M.D. Performed By: #### G OTONIEL #### Point of Care testing , Calcium [Mass/volume] in Ser um or PlasmaOrdered By: Ismael Booth on 10-14-2023 Calcium [Mass/Vol] 8.9 mg/dL Normal 8.6-10.3 [facility] Comment on above: Performed By: #### B MP, CBC #### [address] Cancer Antigen 125on 023 Cancer Antigen 125 33.3 Normal 0.0-38.1 [facility] Comment on above: Result Comment: [employer] Electrochemiluminescence Immunoassay (ECLIA) Values obtained with different assay methods or kits cannot be used interchangeably. Results cannot be interpreted as absolute evidence of the presence or absence of malignant disease. Performed at: [address] [id number] [employer] Worker: José Manuel Petersen PhD, Phone: [phone] Performed By: #### G OTONIEL #### Point of Care testing , Carbohydrate Antigen 19-9on 10-14-2023 Carbohydrate Antigen 19-9 19 Normal 0-35 [facility] Comment on above: Result Comment: [employer] Electrochemiluminescence Immunoassay (ECLIA) Values obtained with different assay methods or kits cannot be used interchangeably. Results cannot be interpreted as absolute evidence of the presence or absence of malignant disease. Performed By: #### G LULS #### Point of Care testing , Carbon dioxide, total [Moles /volume] in Serum or PlasmaOrdered By: Ismael Booth on 10-14-2023 CO2 [Moles/Vol] 27.5 mmol/L Normal 21.0-31.0 [facility] Comment on above: Performed By: #### B MP, CBC #### [facility] [address] Chloride [Moles/volume] in S cedric or PlasmaOrdered By: Ismael Booth on 10-14-2023 Chloride [Moles/Vol] 98 mmol/L Normal 98-107 [facility] Comment on above: Performed By: #### B MP, CBC #### [facility] [address] [place] [address] [place] Creatinine [Mass/volume] in Serum or PlasmaOrdered By: Ismael Booth on 10-14-2023 Creatinine [Mass/Vol] 0.66 mg/dL Normal 0.60-1.20 [facility] Comment on above: Performed By: #### B MP, CBC #### [facility] [address] [place] [id number] [place] Erythrocyte distribution wid th [Ratio] by Automated countOrdered By: Ismael Booth on 10-14-2023 Erythrocyte distribution width (RBC) [Ratio] 13.9 % Normal 11.9-15.3 [facility] Comment on above: Performed By: #### G LULS #### Point of Care testing , Erythrocytes [#/volume] in B lood by Automated countOrdered By: Ismael Booth on 10-14-2023 RBC (Bld) [#/Vol] 3.80 10*6/uL Normal 3.60-5.00 [facility] Comment on above: Performed By: #### G LULS #### Point of Care testing , Glucose Poct Glucometerson 1 12-15-2022 Glucose [Mass/Vol] 297 mg/dL Normal [facility] Comment on above: Result Comment: [facility] Glucose Reference Range is dependent on time and content of last meal. Glucose of more than 200 mg/dL in a nonstressed, ambulatory subject supports the diagnosis of Diabetes Mellitus. PERFORMED BY: [place] [address] PATHOLOGIST SPRING BENDER MELODY WHEELER M.D. Performed By: #### G LULS #### Point of Care testing , Glucose [Mass/Vol] 371 mg/dL Normal [facility] Comment on above: Result Comment: [facility] Glucose Reference Range is dependent on time and content of last meal. Glucose of more than 200 mg/dL in a nonstressed, ambulatory subject supports the diagnosis of Diabetes Mellitus. PERFORMED BY: [place] [address] PATHOLOGIST SPRING BENDER MELODY WHEELER M.D. Performed By: #### B MP, CBC #### [address] Glucose [Mass/Vol] 234 mg/dL Normal [facility] Comment on above: Result Comment: [facility] Glucose Reference Range is dependent on time and content of last meal. Glucose of more than 200 mg/dL in a nonstressed, ambulatory subject supports the diagnosis of Diabetes Mellitus. PERFORMED BY: [place] [address] PATHOLOGIST SPRING BENDER MELODY WHEELER M.D. Performed By: #### B MP, CBC #### [address] Glucose [Mass/Vol] 242 mg/dL Normal [facility] Comment on above: Result Comment: [place] om Glucose Reference Range is dependent on time and content of last meal. Glucose of more than 200 mg/dL in a nonstressed, ambulatory subject supports the diagnosis of Diabetes Mellitus. PERFORMED BY: [place] [address] PATHOLOGIST SPRING BENDER MELODY WHEELER M.D. Performed By: #### B MP, CBC #### [facility] [address] [place] [address] Glucose [Mass/volume] in Ser um or PlasmaOrdered By: Ismael Booth on 10-14-2023 Glucose [Mass/Vol] 242 mg/dL High 70-100 [facility] Comment on above: ADA recommended refe rence rangeRandom Glucose Reference Range is dependent on time and content of last meal. Glucose of more than 200 mg/dL in a nonstressed, ambulatory subject supports the diagnosis of Diabetes Mellitus. Result Comment: [place] om Glucose Reference Range is dependent on time and content of last meal. Glucose of more than 200 mg/dL in a nonstressed, ambulatory subject supports the diagnosis of Diabetes Mellitus. ADA recommended reference range Performed By: #### B MP, CBC #### [facility] [address] [place], [place] [id number] [facility] Hematocrit [Volume Fraction] of Blood by Automated countOrdered By: Ismael Booth on 10-14-2023 Hematocrit (Bld) [Volume fraction] 34.4 % Normal 34.0-46.4 [facility] Comment on above: Performed By: #### G LUEVIE #### Point of Care testing , Hemoglobin [Mass/volume] in BloodOrdered By: Ismael Booth on 10-14-2023 Hemoglobin (Bld) [Mass/Vol] 11.3 g/dL Low 11.8-15.4 [facility] Comment on above: Performed By: #### G LUEVIE #### Point of Care testing , Leukocytes [#/volume] correc seferino for nucleated erythrocytes in Blood by Automated counOrdered By: Ismael Booth on 10-14-2023 WBC corrected for nucl RBC Auto (Bld) [#/Vol] 11.7 10*3/uL 3.8-11.6 [facility] Leukocytes [#/volume] in Blo od by Automated countOrdered By: Ismael Booth on 10-14-2023 WBC (Bld) [#/Vol] 11.7 10*3/uL High 3.8-11.6 [facility] Comment on above: Performed By: #### G LULS #### Point of Care testing , Lymphocytes [#/volume] in Bl ood by Automated countOrdered By: Ismael Booth on 10-14-2023 Lymphocytes (Bld) [#/Vol] 1.7 10*3/uL Normal 1.00-4.8 [facility] Comment on above: Performed By: #### G LULS #### Point of Care testing , Lymphocytes/100 leukocytes i n Blood by Automated countOrdered By: Ismael Booth on 10-14-2023 Lymphocytes/100 WBC (Bld) 14.4 % Normal . [facility] Comment on above: Performed By: #### G LULS #### Point of Care testing , MCH [Entitic mass] by Automa seferino countOrdered By: Ismael Booth on 10-14-2023 MCH (RBC) [Entitic mass] 29.7 pg Normal 24.7-34.3 [facility] Comment on above: Performed By: #### G LULS #### Point of Care testing , MCHC Auto (RBC) [Mass/Vol]Or dered By: Ismael Booth on 10-14-2023 MCHC (RBC) [Mass/Vol] 32.9 g/dL 32.0-35.0 [facility] MCV [Entitic volume] by Auto mated countOrdered By: Ismael Booth on 10-14-2023 MCV (RBC) [Entitic vol] 90.5 fL Normal 80-100 [facility] Comment on above: Performed By: #### G LULS #### Point of Care testing , Neutrophils [#/volume] in Bl ood by Automated countOrdered By: Ismael Booth on 10-14-2023 Neutrophils (Bld) [#/Vol] 7.9 10*3/uL High 1.8-7.7 [facility] Comment on above: Performed By: #### G LULS #### Point of Care testing , No Panel InformationOrdered By: Tosha Patel on 10-14-2023 CA 27.29 28.1 U/mL 0.0-38.6 [facility] Comment on above: [employer] Immu nochemiluminometric Methodology (ICMA)Values obtained with different assay methods or kits cannotbe used interchangeably. Results cannot be interpreted asabsolute evidence of the presence or absence of malignantdisease.Performed at: [facility] [address] [id number] Director: José Manuel Petersen PhD, Phone: [phone] No Panel InformationOrdered By: Ismael Booth on 10-14-2023 Estimated GFR (CKD-EPI) > 60.0 mL/Min [facility] Creatinine Clearance (Chem 47.62 [facility] Nucleated erythrocytes [Pres ence] in Blood by Automated countOrdered By: Ismael Booth on 10-14-2023 Nucleated RBC Auto Ql (Bld) 0.0 /100{WBC} 0-0.5 [facility] Platelet adequacy [Presence] in Blood by Light microscopyOrdered By: Ismael Booth on 10-14-2023 Platelets LM Ql (Bld) Normal Normal [facility] Platelet mean volume [Entiti c volume] in Blood by Automated countOrdered By: Ismael Booth on 10-14-2023 Platelet mean volume (Bld) [Entitic vol] 9.0 fL Normal 6.3-10.7 [facility] Comment on above: Performed By: #### G LULS #### Point of Care testing , Platelet morphology finding [Identifier] in BloodOrdered By: Ismael Booth on 10-14-2023 Platelet morphology finding Nom (Bld) Normal Normal [facility] Platelets [#/volume] in Bloo d by Automated countOrdered By: Ismael Booth on 10-14-2023 Platelets (Bld) [#/Vol] 225 10*3/uL Normal 150-450 [facility] Comment on above: Performed By: #### G LULS #### Point of Care testing , Potassium [Moles/volume] in Serum or PlasmaOrdered By: Ismael Booth on 10-14-2023 Potassium [Moles/Vol] 4.0 mmol/L Normal 3.5-5.1 [facility] Comment on above: Performed By: #### B MP, CBC #### [facility] [address] [place] [address] RBC morphologyOrdered By: Alejandra caceresnataliia Leobardo on 10-14-2023 RBC morphology finding Nom (Bld) Normal Normal Normal [facility] Comment on above: Performed By: #### G LULS #### Point of Care testing , Scan and CBCon 10-14-2023 Mean Corpuscular HGB Conc 32.9 g/dL Normal 32.0-35.0 [facility] Comment on above: Performed By: #### G LULS #### Point of Care testing , NRBC% 0.0 /100{WBC} Normal 0-0.5 [facility] Comment on above: Performed By: #### G LULS #### Point of Care testing , Platelet Estimate Normal Normal Normal [facility] Comment on above: Performed By: #### G LULS #### Point of Care testing , Platelet Morphology Normal Normal Normal [facility] Comment on above: Result Comment: PERF ORMED BY: [place] [address] PATHOLOGIST SPRING BENDER MELODY WHEELER M.D. Performed By: #### G LULS #### Point of Care testing , Serum or plasma anion gap de terminationOrdered By: Ismael Booth on 10-14-2023 Anion gap [Moles/Vol] 9.5 mmol/L Normal 6.0-15.0 [facility] Comment on above: Performed By: #### B MP, CBC #### [facility] [address] [place] [address] Serum or plasma cancer antig en 125 (CA-125) measurement (units/volume)Ordered By: Tosha Patel on 10-14-2023 Cancer Ag 125 Qn 33.3 [arb'U]/mL 0.0-38.1 [facility] Comment on above: [employer] [place] ectrochemiluminescence Immunoassay(ECLIA)Values obtained with different assay methods or kits cannotbe used interchangeably. Results cannot be interpreted asabsolute evidence of the presence or absence of malignantdisease.Performed at: [facility] [id number] Director: José Manuel Petersen PhD, Phone: [phone] Serum or plasma cancer antig en 19-9 measurement (units/volume)Ordered By: Tosha Patel on 10-14-2023 Cancer Ag 19-9 Qn 19 [arb'U]/mL 0-35 [facility] Comment on above: [employer] [place] ectrochemiluminescence Immunoassay(ECLIA)Values obtained with different assay methods or kits cannotbe used interchangeably. Results cannot be interpreted asabsolute evidence of the presence or absence of malignantdisease. Serum or plasma carcinoembry onic antigen measurement (mass/volume)Ordered By: Tosha Patel on 10-14-2023 Carcinoembryonic Ag [Mass/Vol] 2.0 ng/mL 0.0-3.0 [facility] Sodium [Moles/volume] in Ser um or PlasmaOrdered By: Ismael Booth on 10-14-2023 Sodium [Moles/Vol] 131 mmol/L Low 136-145 [facility] Comment on above: Performed By: #### B MP, CBC #### [facility] [address] [place] [address] Urea nitrogen [Mass/volume] in Serum or PlasmaOrdered By: Ismael Booth on 10-14-2023 Urea nitrogen [Mass/Vol] 18 mg/dL Normal 7-25 [facility] Comment on above: Performed By: #### B MP, CBC #### [facility] [address] Basic Metabolic Panelon Anion gap [Moles/Vol] 13.7 mmol/L Normal 6.0-15.0 [facility] Comment on above: Performed By: #### B MP, CBC #### [address] Calcium [Mass/Vol] 9.5 mg/dL Normal 8.6-10.3 [facility] Comment on above: Performed By: #### B MP, CBC #### [address] Chloride [Moles/Vol] 95 mmol/L Low 98-107 [facility] Comment on above: Performed By: #### B MP, CBC #### [address] CO2 [Moles/Vol] 27.2 mmol/L Normal 21.0-31.0 [facility] Comment on above: Performed By: #### B MP, CBC #### [address] Creatinine [Mass/Vol] 0.77 mg/dL Significan t change down 0.60-1.20 [facility] Comment on above: Performed By: #### B MP, CBC #### [place] [address] [place] Creatinine Clr Calc Pharmacy 47.52 Normal [facility] Comment on above: Result Comment: PERF ORMED BY: [place] [address] PATHOLOGIST SPRING BENDER MELODY WHEELER M.D. Performed By: #### B MP, CBC #### [address] GFR/1.73 sq M.predicted MDRD (S/P/Bld) [Vol rate/Area] mL/min/{1.73_m2} Normal [facility] Comment on above: Performed By: #### B MP, CBC #### [place] [address] [place] Glucose [Mass/Vol] 339 mg/dL High 70-100 [facility] Comment on above: Result Comment: [place] Glucose Reference Range is dependent on time and content of last meal. Glucose of more than 200 mg/dL in a nonstressed, ambulatory subject supports the diagnosis of Diabetes Mellitus. ADA recommended reference range Performed By: #### B MP, CBC #### [address] Potassium [Moles/Vol] 4.9 mmol/L Normal 3.5-5.1 [facility] Comment on above: Performed By: #### B MP, CBC #### [address] Sodium [Moles/Vol] 131 mmol/L Low 136-145 [facility] Comment on above: Performed By: #### B MP, CBC #### [address] Urea nitrogen [Mass/Vol] 20 mg/dL Normal 7-25 [facility] Comment on above: Performed By: #### B MP, CBC #### [address] Diff and CBCon 10-13-2023 Erythrocyte distribution width (RBC) [Ratio] 14.1 % Normal 11.9-15.3 [facility] Comment on above: Performed By: #### B MP, CBC #### [address] Giant Platelet Tally 1 /100{WBC} Normal [facility] Comment on above: Performed By: #### B MP, CBC #### [address] Hematocrit (Bld) [Volume fraction] 41.1 % Normal 34.0-46.4 [facility] Comment on above: Performed By: #### B MP, CBC #### [address] Hemoglobin (Bld) [Mass/Vol] 13.4 g/dL Normal 11.8-15.4 [facility] Comment on above: Performed By: #### B MP, CBC #### [address] MCH (RBC) [Entitic mass] 30.1 pg Normal 24.7-34.3 [facility] Comment on above: Performed By: #### B MP, CBC #### [address] MCV (RBC) [Entitic vol] 91.9 fL Normal 80-100 [facility] Comment on above: Performed By: #### B MP, CBC #### [address] Mean Corpuscular HGB Conc 32.7 g/dL Normal 32.0-35.0 [facility] Comment on above: Performed By: #### B MP, CBC #### [address] Platelet Estimate Normal Normal Normal [facility] Comment on above: Performed By: #### B MP, CBC #### [address] Platelet mean volume (Bld) [Entitic vol] 9.3 fL Normal 6.3-10.7 [facility] Comment on above: Performed By: #### B MP, CBC #### [address] Platelet Morphology Normal Normal Normal [facility] Comment on above: Result Comment: PERF ORMED BY: [place] [address] PATHOLOGIST SPRING BENDER MELODY WHEELER M.D. Performed By: #### B MP, CBC #### [address] Platelets (Bld) [#/Vol] 246 10*3/uL Normal 150-450 [facility] Comment on above: Performed By: #### B MP, CBC #### [address] Polychromasia Slight Normal [facility] Comment on above: Performed By: #### B MP, CBC #### [address] RBC (Bld) [#/Vol] 4.47 10*6/uL Normal 3.60-5.00 [facility] Comment on above: Performed By: #### B MP, CBC #### [facility] [address] Reactive Lymphocytes 1 % Normal 0-12 [facility] Comment on above: Performed By: #### B MP, CBC #### [facility] [address] [place] [id number] [facility] WBC (Bld) [#/Vol] 18.2 10*3/uL High 3.8-11.6 [facility] Comment on above: Performed By: #### B MP, CBC #### [facility] [address] [place] [address] [place] Giant platelets/100 leukocyt es [Ratio] in Blood by Manual countOrdered By: Ismael Booth on 10-13-2023 Giant platelets/100 WBC Manual cnt (Bld) [Ratio] 1 /100{WBC} [facility] Glucose Poct Glucometerson 1 12-14-2022 Glucose [Mass/Vol] 276 mg/dL Normal [facility] Comment on above: Result Comment: [facility] Glucose Reference Range is dependent on time and content of last meal. Glucose of more than 200 mg/dL in a nonstressed, ambulatory subject supports the diagnosis of Diabetes Mellitus. PERFORMED BY: [place] [address] PATHOLOGIST SPRING BENDER MELODY WHEELER M.D. Performed By: #### B MP, DIFF CBC #### [address] Glucose [Mass/Vol] 258 mg/dL Normal [facility] Comment on above: Result Comment: [facility] Glucose Reference Range is dependent on time and content of last meal. Glucose of more than 200 mg/dL in a nonstressed, ambulatory subject supports the diagnosis of Diabetes Mellitus. PERFORMED BY: [place] [address] PATHOLOGIST SPRING BENDER MELODY WHEELER M.D. Performed By: #### B MP, DIFF CBC #### [address] Glucose [Mass/Vol] 346 mg/dL Normal [facility] Comment on above: Result Comment: [place] om Glucose Reference Range is dependent on time and content of last meal. Glucose of more than 200 mg/dL in a nonstressed, ambulatory subject supports the diagnosis of Diabetes Mellitus. PERFORMED BY: [place] [address] PATHOLOGIST SPRING BENDER MELODY WHEELER M.D. Performed By: #### G LULS ####Point of Care testing, Commemt1 Normal [facility] Comment on above: Result Comment: Glu2 : Will Repeat Test PERFORMED BY: [place] [address] PATHOLOGIST SPRING BENDER MELODY WHEELER M.D. Performed By: #### G LULS #### Point of Care testing , Glucose [Mass/Vol] 438 mg/dL Off scale high [facility] Comment on above: Result Comment: [place] om Glucose Reference Range is dependent on time and content of last meal. Glucose of more than 200 mg/dL in a nonstressed, ambulatory subject supports the diagnosis of Diabetes Mellitus. Performed By: #### G LULS #### Point of Care testing , Glucose [Mass/Vol] 299 mg/dL Normal [facility] Comment on above: Result Comment: [place] om Glucose Reference Range is dependent on time and content of last meal. Glucose of more than 200 mg/dL in a nonstressed, ambulatory subject supports the diagnosis of Diabetes Mellitus. PERFORMED BY: [place] [address] PATHOLOGIST SPRING BENDER MELODY WHEELER M.D. Performed By: #### B MP, CBC #### [facility] [address] [place] [address] [place] Lymphocytes/100 leukocytes i n Blood by Manual countOrdered By: Ismael Booth on 10-13-2023 Lymphocytes/100 WBC (Bld) 10 % Low 18-42 [facility] Comment on above: Performed By: #### B MP, CBC #### [facility] [address] [place] [id number] [place] Manual blood segmented neutr ophils/100 leukocytesOrdered By: Ismael Booth on 10-13-2023 Segmented neutrophils/100 WBC (Bld) 84 % High 50-70 [facility] Comment on above: Performed By: #### B MP, CBC #### [facility] [address] [place] [address] [place] Monocytes/100 leukocytes in Blood by Manual countOrdered By: Ismael Booth on 10-13-2023 Monocytes/100 WBC (Bld) 6 % Normal 2-11 [facility] Comment on above: Performed By: #### B MP, CBC #### [facility] [address] [place] [address] [place] Polychromasia [Presence] in Blood by Light microscopyOrdered By: Ismael Booth on 10-13-2023 Polychromasia LM Ql (Bld) Slight [facility] Variant lymphocytes/100 WBC Manual cnt (Bld)Ordered By: Ismael Booth on 10-13-2023 Variant lymphocytes/100 WBC (Bld) 1 % 0-12 [facility] Automated erythrocytes count in urine sediment (number/area)Ordered By: Chin Rodarte on 10-12-2023 RBC Auto (Urine sed) [#/Area] Innumerable [HPF] 0-4 [facility] Automated leukocytes count i n urine sediment (number/area)Ordered By: Chin Rodarte on 10-12-2023 WBC Auto (Urine sed) [#/Area] Innumerable [HPF] 0-4 [facility] Automated urine color determ inationOrdered By: Chin Rodarte on 10-12-2023 Color (U) Dark yellow Critically abnormal Yellow [facility] Comment on above: Order Comment: Name Collection Type:: Joseph Catheter Performed By: #### G LULS #### Point of Care testing , Basic Metabolic Panelon Anion gap [Moles/Vol] 11.9 mmol/L Normal 6.0-15.0 [facility] Comment on above: Performed By: #### B MP, CBC #### [facility] [address] [place] [address] [place] Calcium [Mass/Vol] 9.2 mg/dL Normal 8.6-10.3 [facility] Comment on above: Result Comment: PERF ORMED BY: [place] [address] PATHOLOGIST SPRING BENDER MELODY WHEELER M.D. Performed By: #### B MP, CBC #### [place] [address] [place] Chloride [Moles/Vol] 100 mmol/L Normal 98-107 [facility] Comment on above: Performed By: #### B MP, CBC #### [address] CO2 [Moles/Vol] 25.7 mmol/L Normal 21.0-31.0 [facility] Comment on above: Performed By: #### B MP, CBC #### [place] [address] [place] Creatinine [Mass/Vol] mg/dL Significan t change down 0.60-1.20 [facility] Comment on above: Result Comment: When the Creatinine is <0.20, the GFR is unable to be calculated. Performed By: #### B MP, CBC #### [address] Glucose [Mass/Vol] 305 mg/dL Significant change up 70-100 [facility] Comment on above: Result Comment: [place] Glucose Reference Range is dependent on time and content of last meal. Glucose of more than 200 mg/dL in a nonstressed, ambulatory subject supports the diagnosis of Diabetes Mellitus. ADA recommended reference range Performed By: #### B MP, CBC #### [place] [address] [place] Potassium [Moles/Vol] 4.6 mmol/L Normal 3.5-5.1 [facility] Comment on above: Performed By: #### B MP, CBC #### [place] [address] [place] Sodium [Moles/Vol] 133 mmol/L Low 136-145 [facility] Comment on above: Performed By: #### B MP, CBC #### [place] [address] [place] Urea nitrogen [Mass/Vol] mg/dL Low 7-25 [facility] Comment on above: Performed By: #### B MP, CBC #### [address] Bilirubin Test strip Ql (U)O rdered By: Chin Rodarte on 10-12-2023 Bilirubin Ql (U) 1+ Negative [facility] Complete Blood Count Auto Di ffon 10-12-2023 Basophils (Bld) [#/Vol] 0.2 10*3/uL Normal 0.0-0.2 [facility] Comment on above: Result Comment: PERF ORMED BY: [place] [address] PATHOLOGIST SPRING BENDER MELODY WHEELER M.D. Performed By: #### B MP, CBC #### [address] Basophils/100 WBC (Bld) 1.2 % Normal . [facility] Comment on above: Performed By: #### B MP, CBC #### [address] Eosinophils (Bld) [#/Vol] 0.1 10*3/uL Normal 0.0-0.45 [facility] Comment on above: Performed By: #### B MP, CBC #### [address] Eosinophils/100 WBC (Bld) 1.1 % Normal . [facility] Comment on above: Performed By: #### B MP, CBC #### [address] Erythrocyte distribution width (RBC) [Ratio] 14.1 % Normal 11.9-15.3 [facility] Comment on above: Performed By: #### B MP, CBC #### [address] Hematocrit (Bld) [Volume fraction] 43.1 % Normal 34.0-46.4 [facility] Comment on above: Performed By: #### B MP, CBC #### [address] Hemoglobin (Bld) [Mass/Vol] 14.3 g/dL Normal 11.8-15.4 [facility] Comment on above: Performed By: #### B MP, CBC #### [address] Lymphocytes (Bld) [#/Vol] 1.6 10*3/uL Normal 1.00-4.8 [facility] Comment on above: Performed By: #### B MP, CBC #### [address] Lymphocytes/100 WBC (Bld) 12.5 % Normal . [facility] Comment on above: Performed By: #### B MP, CBC #### [address] MCH (RBC) [Entitic mass] 30.0 pg Normal 24.7-34.3 [facility] Comment on above: Performed By: #### B MP, CBC #### [address] MCV (RBC) [Entitic vol] 90.5 fL Normal 80-100 [facility] Comment on above: Performed By: #### B MP, CBC #### [address] Mean Corpuscular HGB Conc 33.2 g/dL Normal 32.0-35.0 [facility] Comment on above: Performed By: #### B MP, CBC #### [address] Monocytes (Bld) [#/Vol] 1.3 10*3/uL High 0.0-0.8 [facility] Comment on above: Performed By: #### B MP, CBC #### [address] Monocytes/100 WBC (Bld) 9.7 % Normal . [facility] Comment on above: Performed By: #### B MP, CBC #### [address] [place] [address] [place] Neutrophils (Bld) [#/Vol] 9.9 10*3/uL High 1.8-7.7 [facility] Comment on above: Performed By: #### B MP, CBC #### [place] [address] [place] Neutrophils/100 WBC (Bld) 75.5 % Normal . [facility] Comment on above: Performed By: #### B MP, CBC #### [address] NRBC% 0.0 /100{WBC} Normal 0-0.5 [facility] Comment on above: Performed By: #### B MP, CBC #### [address] Platelet mean volume (Bld) [Entitic vol] 8.7 fL Normal 6.3-10.7 [facility] Comment on above: Performed By: #### B MP, CBC #### [place] [address] [place] Platelets (Bld) [#/Vol] 256 10*3/uL Normal 150-450 [facility] Comment on above: Performed By: #### B MP, CBC #### [place] [address] [place] RBC (Bld) [#/Vol] 4.76 10*6/uL Normal 3.60-5.00 [facility] Comment on above: Performed By: #### B MP, CBC #### [place] [address] [place] WBC (Bld) [#/Vol] 13.1 10*3/uL High 3.8-11.6 [facility] Comment on above: Performed By: #### B MP, CBC #### [place] [address] [place] Dipstick and Microscopicon 1 12-13-2022 Appearance (U) Turbid Critically abnormal Clear [facility] Comment on above: Order Comment: Name Collection Type:: Joseph Catheter Performed By: #### G LULS #### Point of Care testing , Bacteria,Urine None Seen Normal None Seen [facility] Comment on above: Order Comment: Name Collection Type:: Joseph Catheter Performed By: #### G LULS #### Point of Care testing , Bilirubin,Urine 1+ High Negative [facility] Comment on above: Order Comment: Name Collection Type:: Joseph Catheter Performed By: #### G LULS #### Point of Care testing , Glucose Ql (U) Normal Normal Normal [facility] Comment on above: Order Comment: Name Collection Type:: Joseph Catheter Performed By: #### G LULS #### Point of Care testing , Hyaline Casts,Urine 0-8 Normal 0-8 [facility] Comment on above: Order Comment: Name Collection Type:: Joseph Catheter Result Comment: PERF ORMED BY: [address] [place] [address] PATHOLOGIST SPRING BENDER MELODY WHEELER M.D. Performed By: #### G LULS #### Point of Care testing , Ketones Ql (U) Trace High Negative [facility] Comment on above: Order Comment: Name Collection Type:: Joseph Catheter Performed By: #### G LULS #### Point of Care testing , Leukocyte esterase Test strip Ql (U) 3+ High Negative [facility] Comment on above: Order Comment: Name Collection Type:: Joseph Catheter Performed By: #### G LULS #### Point of Care testing , Nitrite,Urine Positive High Negative [facility] Comment on above: Order Comment: Name Collection Type:: Joseph Catheter Performed By: #### G LULS #### Point of Care testing , Occult Blood,Urine 3+ High Negative [facility] Comment on above: Order Comment: Name Collection Type:: Joseph Catheter Result Comment: PERF ORMED BY: [address] [place] [address] PATHOLOGIST SPRING BENDER MELODY WHEELER M.D. Performed By: #### G LULS #### Point of Care testing , RBC,Urine Innumerable High 0-4 [facility] Comment on above: Order Comment: Name Collection Type:: Joseph Catheter Performed By: #### G LULS #### Point of Care testing , Specificy [place],Urine 1.031 High 1.00 1-1.03 0 [facility] Comment on above: Order Comment: Name Collection Type:: Joseph Catheter Performed By: #### G LULS #### Point of Care testing , Squamous Epithelial Cell,Urine 1-2 Normal 0-2 [facility] Comment on above: Order Comment: Name Collection Type:: Joseph Catheter Performed By: #### G LULS #### Point of Care testing , Urobilinogen,Urine Normal Normal Normal [facility] Comment on above: Order Comment: Name Collection Type:: Joseph Catheter Performed By: #### G LULS #### Point of Care testing , WBC,Urine Innumerable High 0-4 [facility] Comment on above: Order Comment: Name Collection Type:: Joseph Catheter Performed By: #### G LULS #### Point of Care testing , Glucose Poct Glucometerson 1 12-13-2022 Glucose [Mass/Vol] 236 mg/dL Normal [facility] Comment on above: Result Comment: [facility] Glucose Reference Range is dependent on time and content of last meal. Glucose of more than 200 mg/dL in a nonstressed, ambulatory subject supports the diagnosis of Diabetes Mellitus. PERFORMED BY: [place] [address] PATHOLOGIST SPRING BENDER MELODY WHEELER M.D. Performed By: #### B MP, CBC #### [facility] [address] [place] [address] Commemt1 Glu2: Cleaned Meter Normal [facility] Comment on above: Result Comment: PERF ORMED BY: [place] [address] PATHOLOGIST SPRING BENDER MELODY WHEELER M.D. Performed By: #### B MP, CBC #### [place] [address] [place] Glucose [Mass/Vol] 151 mg/dL Normal [facility] Comment on above: Result Comment: [place] om Glucose Reference Range is dependent on time and content of last meal. Glucose of more than 200 mg/dL in a nonstressed, ambulatory subject supports the diagnosis of Diabetes Mellitus. Performed By: #### B MP, CBC #### [address] Commemt1 Glu2: Cleaned Meter Normal [facility] Comment on above: Result Comment: PERF ORMED BY: [place] [address] PATHOLOGIST SPRING BENDER MELODY WHEELER M.D. Performed By: #### B MP, CBC #### [address] Glucose [Mass/Vol] 207 mg/dL Normal [facility] Comment on above: Result Comment: [place] om Glucose Reference Range is dependent on time and content of last meal. Glucose of more than 200 mg/dL in a nonstressed, ambulatory subject supports the diagnosis of Diabetes Mellitus. Performed By: #### B MP, CBC #### [address] Glucose [Mass/Vol] 197 mg/dL Normal [facility] Comment on above: Result Comment: [place] om Glucose Reference Range is dependent on time and content of last meal. Glucose of more than 200 mg/dL in a nonstressed, ambulatory subject supports the diagnosis of Diabetes Mellitus. PERFORMED BY: [place] [address] PATHOLOGIST SPRING BENDER MELODY WHEELER M.D. Performed By: #### G LULS #### Point of Care testing , Glucose [Mass/Vol] 252 mg/dL Normal [facility] Comment on above: Result Comment: [place] om Glucose Reference Range is dependent on time and content of last meal. Glucose of more than 200 mg/dL in a nonstressed, ambulatory subject supports the diagnosis of Diabetes Mellitus. PERFORMED BY: [place] [address] PATHOLOGIST SPRING BENDER MELODY WHEELER M.D. Performed By: #### B MP, CBC #### [address] Glucose [Mass/Vol] 278 mg/dL Normal [facility] Comment on above: Result Comment: [place] om Glucose Reference Range is dependent on time and content of last meal. Glucose of more than 200 mg/dL in a nonstressed, ambulatory subject supports the diagnosis of Diabetes Mellitus. PERFORMED BY: [place] [address] PATHOLOGIST SPRING BENDER MELODY WHEELER M.D. Performed By: #### B MP, DIFF CBC #### [address] Commemt1 Glu2: Cleaned Meter Normal [facility] Comment on above: Result Comment: PERF ORMED BY: [place] [address] PATHOLOGIST SPRING BENDER MELODY WHEELER M.D. Performed By: #### G LULS #### Point of Care testing , Glucose [Mass/Vol] 312 mg/dL Normal [facility] Comment on above: Result Comment: [place] om Glucose Reference Range is dependent on time and content of last meal. Glucose of more than 200 mg/dL in a nonstressed, ambulatory subject supports the diagnosis of Diabetes Mellitus. Performed By: #### G LULS #### Point of Care testing , Ketones Auto test strip (U) [Mass/Vol]Ordered By: Chin Rodarte on 10-12-2023 Ketones (U) [Mass/Vol] Trace Negative [facility] Perez 10-12-2023 L ---- Specimen: [id number] Received: 10/12/23 Status: JOHANNE Castellon Num: [id number] Spec Type: Surgical Subm Dr: Ismael Booth MD Tissues: A Femoral Head - Other than Fracture (RT HIP) Procedures: HE/2, Gross/Micro L3, Decalcification Age/ Patient Sex Location Account Attending Physician Heidi Palmer 83/F 3T [id number] Chin Rodarte MD SPEC NUM: [id number] RECD: 10/12/23 STATUS: JOHANNE CANNONKhalida NUM: [id number] MELINA: 10/12/23 [facility] DR: Ismael Booth MD ENTERED: 10/12/23 [facility] : SPEC TYPE: Surgical DEPT: S ORDERED: HE/2, Gross/Micro L3, Decalcification ORDERED: HE/2, Gross/Micro L3, Decalcification Pathological Diagnosis Right hip bone and soft tissue, hemiarthroplasty: - Severe acute hemorrhagic fracture of the femoral neck, demonstrating apparent acute hemorrhagic and fibrinoid disruptions and degenerations of the involved trabecular bone and medullary spaces and juliana-cortical soft tissue of the neck region, and with apparently associated PMN response, per reactive inflammatory effect of the recent acute fracture. - Incidental severe osteoporosis is also apparent Clinical Information Right hip pain Gross Description Received in formalin labeled with the patient's name, date of and right hip bone and tissue is a 4.5 x 4.5 x 3.5 cm femoral head with an attached 3.6 x 1.1 x 0.4 cm zayas-crump ligament and a detached 7.5 x 7.0 x 2.7 cm aggregate of zayas-red bone and soft tissue. The femoral head has a smooth to granular, zayas-crump articular surface. No eburnation is identified. Sectioning displays hemorrhage at the femoral neck resection margin. The remaining cut surface is yellow-zayas, trabecular. No thinning of the articular cartilage is identified.. Chain Tender are submitted following decalcification in two cassettes labeled A1-A2. Specimen: [id number] Received: 10/12/23 Status: JOHANNE Cannonkhalida Num: [id number] Spec Type: Surgical Subm Dr: Ismael Booth MD Tissues: A Femoral Head - Other than Fracture (RT HIP) Procedures: HE/2, Gross/Micro L3, Decalcification Patient: Heidi Palmer [id number] (Continued) Specimen: [id number] Received: 10/12/23 (Continued) Signed (signature on file) Riley Walker MD 10/14/23 1501 Specimen: Received: 10/12/23 Status: JOHANNE Castellon Num: [id number] Spec Type: Surgical Subm Dr: Ismael Booth MD Tissues: A Femoral Head - Other than Fracture (RT HIP) Procedures: HE/2, Gross/Micro L3, Decalcification Patient: Heidi Palmer [id number] (Continued) Specimen: Received: 10/12/23 (Continued) Microscopic Description Two H E slides reviewed. The microscopic examination confirms the diagnosis. CPT Codes 69243, 00601 Specimen: [id number] Received: 10/12/23 Status: JOHANNE Castellon Num: [id number] Spec Type: Surgical Subm Dr: Ismael Booth MD Tissues: A Femoral Head - Other than Fracture (RT HIP) Procedures: HE/2, Gross/Micro L3, Decalcification Patient: Heidi Palmer [id number] (Continued) Signed (signature on file) Riley Walker MD 10/14/23 1501 Normal [facility] Laboratory - UrinalysisOrder ed By: Chin Rodarte on 10-12-2023 Hyaline casts LM Ql (Urine sed) 0-8 [LPF] 0-8 [facility] Nitrite Test strip Ql (U)Ord ered By: Chin Rodarte on 10-12-2023 Nitrite Ql (U) Positive Negative [facility] Specific gravity Auto test s trip (U) [Rel density]Ordered By: Chin Rodarte on 10-12-2023 Specific gravity (U) [Rel density] 1.031 1.001-1.03 0 [facility] Squamous epithelial cells de tection in urine sediment by light microscopyOrdered By: Chin Rodarte on 10-12-2023 Epithelial cells.squamous LM Ql (Urine sed) 1-2 [HPF] 0-2 [facility] Urine Cultureon 10-12-2023 Bacteria identified Cx Nom (U) ORGANISM: Jessica glabrata (O:CANGLA) [place] Count >100,000 PERFORMED BY: [facility] [address] [place] [address] PATHOLOGIST SPRING BENDER MELODY WHEELER M.D. Normal [facility] Comment on above: Performed By: #### G LULS #### Point of Care testing , Urine bacteria detection by automated methodOrdered By: Chin Rodarte on 10-12-2023 Bacteria Auto Ql (U) None seen None Seen [facility] Urine clarity by refractomet ry automatedOrdered By: Chin Rodarte on 10-12-2023 Clarity Refractometry automated (U) Turbid Clear [facility] Urine culture routineOrdered By: Chin Rodarte on 10-12-2023 Bacteria identified Cx Nom (U) Jessica glabrata [facility] Urine glucose measurement by automated test strip (mass/volume)Ordered By: Chin Rodarte on 10-12-2023 Glucose Auto test strip (U) [Mass/Vol] Normal mg/dL Normal [facility] Urine hemoglobin detection b y automated test stripOrdered By: Chin Rodarte on 10-12-2023 Hemoglobin Auto test strip Ql (U) 3+ Negative [facility] Urine leukocyte esterase det ection by automated test stripOrdered By: Chin Rodarte on 10-12-2023 Leukocyte esterase Auto test strip Ql (U) 3+ Negative [facility] Urine pH measurement by auto mated test stripOrdered By: Chin Rodarte on 10-12-2023 pH (U) 5.5 [pH] Normal 5.0-9.0 [facility] Comment on above: Order Comment: Name Collection Type:: Joseph Catheter Performed By: #### G LULS #### Point of Care testing , Urine protein measurement by automated test strip (mass/volume)Ordered By: Chin Rodarte on 10-12-2023 Protein (U) [Mass/Vol] 300 mg/dL High Negative [facility] Comment on above: Order Comment: Name Collection Type:: Joseph Catheter Performed By: #### G LULS #### Point of Care testing , Urobilinogen Auto test strip (U) [Mass/Vol]Ordered By: Chin Rodarte on 10-12-2023 Urobilinogen (U) [Mass/Vol] Normal mg/dL Normal [facility] XR hip RT min 2V(w/wo pelvis )*on 10-12-2023 XR hip RT min 2V(w/wo pelvis)* [facility] [place] [address] XRay Report Signed Patient: Heidi Palmer MR#: [id number] [birth year] : 1940 Acct:[id number] Age/Sex: 83 / F ADM Date: 10/11/23 Loc: Room: [address] [place] [address] Type: ADM IN Attending Dr: Chin Rodarte MD Copies to: MD Ismael Hernandes MD Ordering Provider: Ismael Botoh MD Date of Service: 10/12/23 XR/XR hip RT min 2V(w/wo pelvis)*: Hip Fracture Post op RIGHT HIP - 2 views: CLINICAL HISTORY: Status post right [facility] COMPARISON: Right hip series 10/11/2023 FINDINGS: Soft tissues demonstrate postoperative changes. Right hip prosthesis without radiographic complication. Mild degenerative changes left hip. XR/XR hip RT min 2V(w/wo pelvis)* IMPRESSION: NO HARDWARE COMPLICATION.. Impression dictated by: Anthony Benson Jr., D.OCharu10/12/2023 3:55 PM Dictation Location: [place] [address] Transcribed By: [facility] 10/12/23 155 Dictated By: Anthony Benson Jr, DO 10/12/231554 Signed By: 10/12/231554 Normal [facility] ABO/Rh Retypeon 10-11-2023 ABO/RH Recheck Result Negative Normal [facility] Comment on above: Result Comment: PERF ORMED BY: [place] [address] PATHOLOGIST SPRING BENDER MELODY WHEELER M.D. Activated partial thrombopla stin time (aPTT) in platelet poor plasma by coagulation aOrdered By: Ketty Brand on 10-11-2023 aPTT Coag (PPP) [Time] 32.0 s 25.1-36.5 [facility] Comment on above: A hematocrit value g reater than 55% may lead to inaccurate results in coagulation testing. Patients having hematocrit values >55% require a special collection tube for coagulation studies. Please contact the laboratory at [phone] for redraw instructions. Automated basophil %Ordered By: Ketty Brand on 10-11-2023 Basophils/100 WBC (Bld) 1.0 % Normal . [facility] Comment on above: Performed By: #### B MP, CBC #### [facility] [address] [place] [address] Automated basophil countOrde red By: Ketty Brand on 10-11-2023 Basophils (Bld) [#/Vol] 0.1 10*3/uL Normal 0.0-0.2 [facility] Comment on above: Result Comment: PERF ORMED BY: [place] [address] PATHOLOGIST SPRING BENDER MELODY WHEELER M.D. Performed By: #### B MP, CBC #### [address] Automated blood monocyte cou ntOrdered By: Ketty Hwangyamila on 10-11-2023 Monocytes (Bld) [#/Vol] 0.8 10*3/uL Normal 0.0-0.8 [facility] Comment on above: Performed By: #### B MP, CBC #### [address] Automated eosinophil %Ordere d By: Ketty Sampsone on 10-11-2023 Eosinophils/100 WBC (Bld) 1.7 % Normal . [facility] Comment on above: Performed By: #### B MP, CBC #### [address] Automated eosinophil countOr dered By: Ketty Hwangyamila on 10-11-2023 Eosinophils (Bld) [#/Vol] 0.2 10*3/uL Normal 0.0-0.45 [facility] Comment on above: Performed By: #### B MP, CBC #### [address] Automated monocyte %Ordered By: Ketty Hwangyamila on 10-11-2023 Monocytes/100 WBC (Bld) 8.4 % Normal . [facility] Comment on above: Performed By: #### B MP, CBC #### [address] Automated neutrophil %Ordere d By: Ketty Hwangyamila on 10-11-2023 Neutrophils/100 WBC (Bld) 67.6 % Normal . [facility] Comment on above: Performed By: #### B MP, CBC #### [address] Basic Metabolic Panelon GFR/1.73 sq M.predicted MDRD (S/P/Bld) [Vol rate/Area] mL/min/{1.73_m2} Normal [facility] Comment on above: Performed By: #### B MP, CBC #### [address] cervical spine wo conon 1 12-12-2022 CT cervical spine wo con [facility] [address] [place] [address] [place] [address] CT Scan Report Signed Patient: Heidi Palmer MR#: [id number] [birth year] : 1940 Acct:[id number] Age/Sex: 83 / F ADM Date: 10/11/23 Loc: ER Room: Type: [facility] ER Attending Dr: Copies to: Ketty Brand APRN Ordering Provider: Ketty Brand APRN Date of Service: 10/11/23 CT/CT cervical spine wo con: fall ([id number]) CT/CT head/brain wo con: fall CT head/brain wo con, CT cervical spine wo con 10/11/2023 2:17 PM SIGNS AND SYMPTOMS: Fall hitting head on concrete. TECHNIQUE:Multi-detector CT axial slices of the brain and cervical spine were obtained without IV contrast. Helical,sagittal, coronal, and 3-D reconstructions of the cervical spine were performed. CT was performed with one or more of the following dose reduction techniques: Automated exposure control, adjustment of the mA and/or kV according to patient size, or use of iterative reconstruction technique. COMPARISON: None. FINDINGS: Noncontrast head CT: There is no shift of the midline structures, acute intracranial bleeding, mass effects, or evidence of acute ischemia. There is diffuse age-related cortical atrophy. There is mild periventricular white matter hypoattenuation. Atherosclerotic changes are noted in the intracranial segments of the internal carotid arteries. The ventricular system is normal in size. The brainstem and the cerebellum are unremarkable. The visualized intraorbital contents and the infratemporal soft tissues show no acute abnormality. There is partial opacification of the right maxillary sinus and left sphenoid sinus. The osseous structures in the skull base and the calvarium show no abnormality. Degenerative changes are noted in the temporomandibular joints, left greater than right. Cervical spine: There is preservation of the vertebral body heights. There is partial fusion across the C5-C6 intervertebral discs. There is moderate disc height loss at C3-C4, C4-C5, and C6-C7. Facet hypertrophy is present throughout. There is 3 mm of anterolisthesis of C7 upon T1. Degenerative changes are noted in the lateral axial joint. No fractures or dislocations are seen. The alignment of the cervical spine is normal. The craniocervical junction is within normal limits. The prevertebral soft tissues are within normal limits. The paraspinous soft tissues are within normal limits. Atherosclerotic changes are noted in the carotid bifurcations. There is heterogeneous enlargement of the left thyroid lobe. There is evidence of previous right-sided partial thyroidectomy. There is a 2.3 cm area of focal consolidation in the right upper lobe near the major fissure posteriorly. There is a 9 mm noncalcified nodule in the right upper lobe more anteriorly. Additional smaller nodules are noted in the right upper lobe. CT/CT head/brain wo con IMPRESSION: No acute intracranial pathology. Chronic age-related neurodegenerative changes are noted, as above. No acute cervical spine injury. Degenerative changes are noted in the cervical spine as above. Masslike consolidation along with subcentimeter nodules are noted in the right upper lobe suspicious for metastatic disease. Follow-up with dedicated CT of the chest is recommended. Impression dictated by: Tomasz Lerner M.D.10/11/2023 2:34 PM Dictation Location: [place] [address] Transcribed By: [facility] 10/11/23 1434 Dictated By: Tomasz Lerner II, MD 10/11/23 1426 Signed By: 10/11/23 1434 Normal [facility] CT chest w conon 10-11-2023 CT chest w con [facility] [place] [address] CT Scan Report Signed Patient: Heidi Palmer MR#: [id number] 13 : 1940 Acct:[id number] Age/Sex: 83 / F ADM Date: 10/11/23 Loc: ER Room: Type: [facility] ER Attending Dr: Copies to: FRANK Randle DO Ordering Provider: Ketty Brand APRN Date of Service: 10/11/23 CT/CT chest w con: Masslike effect is noted on CT prior CT chest w con 10/11/2023 4:02 PM SIGN AND SYMPTOMS: Fall, right hip and knee pain, noncalcified nodules are noted in the right upper lobe on cervical spine CT suggestive of metastatic disease. CONTRAST: 90 mL of intravenous Isovue-300 TECHNIQUE: Multidetector CT axial slices of the chest were obtained with IV contrast. Multiplanar reformats were performed and viewed on a separate workstation and reviewed to further define anatomy and possible pathology. CT was performed with one or more of the following dose reduction techniques: Automated exposure control, adjustment of the mA and/or kV according to patient size, or use of iterative reconstruction technique. COMPARISON: Cervical spine CT from the same date. FINDINGS: Lower neck: There is right hemithyroidectomy. Vessels: Atherosclerotic changes are present in the thoracic aorta, origins of great vessels, and coronary arteries. Mediastinum and Amparo: Within normal limits. Heart: There is mild cardiomegaly. No pericardial effusion. Airways: Within normal limits Lungs: Multiple noncalcified nodules and masslike areas of consolidation are noted bilaterally. The largest in the right upper lobe measures 3.1 cm in greatest dimension. The largest in the left lower lobe measures 1 cm in greatest dimension. The largest in the left upper lobe measures 1.8 cm in greatest dimension. These are suspicious for malignancy given the history of previous breast cancer. Additionally these may be infectious in nature. Pleura: There is a small left-sided pleural effusion. Chest Wall: There is evidence of previous left mastectomy. Upper Abdomen: Within normal limits. Bones: Degenerative changes are noted in the shoulders and thoracic spine. CT/CT chest w con IMPRESSION: Masslike areas of consolidation are noted along with noncalcified nodules bilaterally as measured above. While these may be infectious in nature, the patient has a history of breast cancer. Metastatic disease is not excluded. There is a small left-sided pleural effusion. There is mild cardiomegaly. There is evidence of previous right hemithyroidectomy and left-sided mastectomy. Impression dictated by: Tomasz Lerner M.D.10/11/2023 4:20 PM Dictation Location: [place] [address] Transcribed By: [facility] 10/11/23 162 Dictated By: Tomasz Lerner II, MD 10/11/23 1612 Signed By: 10/11/23 162 Normal [facility] Calcium [Mass/volume] in Ser um or PlasmaOrdered By: Ketty Brand on 10-11-2023 Calcium [Mass/Vol] 9.5 mg/dL Normal 8.6-10.3 [facility] Comment on above: Result Comment: PERF ORMED BY: [place] [address] PATHOLOGIST SPRING BENDER MELODY WHEELER M.D. Performed By: #### B MP, CBC #### [address] Carbon dioxide, total [Moles /volume] in Serum or PlasmaOrdered By: Ketty Brand on 10-11-2023 CO2 [Moles/Vol] 27.4 mmol/L Normal 21.0-31.0 [facility] Comment on above: Performed By: #### B MP, CBC #### [address] Chloride [Moles/volume] in S cedric or PlasmaOrdered By: Ketty Brand on 10-11-2023 Chloride [Moles/Vol] 100 mmol/L Normal 98-107 [facility] Comment on above: Performed By: #### B MP, CBC #### [address] Complete Blood Count Auto Di ffon 10-11-2023 Mean Corpuscular HGB Conc 33.6 g/dL Normal 32.0-35.0 [facility] Comment on above: Performed By: #### B MP, CBC #### [place] [address] [place] Monocytes/100 WBC (Bld) 17.73 % Normal 0.00-20.00 [facility] Comment on above: Performed By: #### B MP, CBC #### [place] [address] [place] NRBC% 0.1 /100{WBC} Normal 0-0.5 [facility] Comment on above: Performed By: #### B MP, CBC #### [address] Creatinine [Mass/volume] in Serum or PlasmaOrdered By: Ketty Brand on 10-11-2023 Creatinine [Mass/Vol] 0.77 mg/dL Normal 0.60-1.20 [facility] Comment on above: Performed By: #### B MP, CBC #### [facility] [address] [place] [address] ECG 12 lead ECGon 10-11-2023 ECG 12 lead ECG [facility] [address] [place] [address] [place] [address] Electrocardiograph Report Signed Patient: Heidi Palmer MR#: [id number] [birth year] : 1940 Acct:[id number] Age/Sex: 83 / F ADM Date: 10/11/23 Loc: ER Room: Type: [facility] ER Attending Dr: Ordering Provider: Ketty Brand APRN Date of Service: 10/11/2302/28/1346 ECG/ECG 12 lead ECG: Extremity Injury, Lower Copies to: Test Reason : Blood Pressure : / mmHG Vent. Rate : 069 BPM Atrial Rate : 069 BPM P-R Int : 170 ms QRS Dur : 068 ms QT Int : 404 ms P-R-T Axes : 103 -54 071 degrees QTc Int : 432 ms Poor data quality, interpretation may be adversely affected Normal sinus rhythm Left axis deviation Anteroseptal infarct , age undetermined Abnormal ECG No previous ECGs available Confirmed by NOLA COOPER DO ([id number]) on 10/11/2023 4:08:15 PM Referred By: Electronically Signed By:NOLA COOPER DO Transcribed By: [facility] Signed By Nola Cooper DO 10/11 1608 Normal [facility] Erythrocyte distribution wid th [Ratio] by Automated countOrdered By: Ketty Brand on 10-11-2023 Erythrocyte distribution width (RBC) [Ratio] 14.2 % Normal 11.9-15.3 [facility] Comment on above: Performed By: #### B MP, CBC #### [facility] [address] [place] [address] Erythrocytes [#/volume] in B lood by Automated countOrdered By: Ketty Brand on 10-11-2023 RBC (Bld) [#/Vol] 4.87 10*6/uL Normal 3.60-5.00 [facility] Comment on above: Performed By: #### B MP, CBC #### [facility] [address] Glucose Poct Glucometerson 1 12-12-2022 Commemt1 Glu2: Cleaned Meter Normal [facility] Comment on above: Result Comment: PERF ORMED BY: [facility] [address] [facility] [place] [address] PATHOLOGIST SPRING BENDER MELODY WHEELER M.D. Performed By: #### G LULS #### Point of Care testing , Glucose [Mass/Vol] 384 mg/dL Normal [facility] Comment on above: Result Comment: [place] om Glucose Reference Range is dependent on time and content of last meal. Glucose of more than 200 mg/dL in a nonstressed, ambulatory subject supports the diagnosis of Diabetes Mellitus. Performed By: #### G LULS #### Point of Care testing , Glucose [Mass/volume] in Ser um or PlasmaOrdered By: Ketty Brand on 10-11-2023 Glucose [Mass/Vol] 418 mg/dL High 70-100 [facility] Comment on above: ADA recommended refe rence rangeRandom Glucose Reference Range is dependent on time and content of last meal. Glucose of more than 200 mg/dL in a nonstressed, ambulatory subject supports the diagnosis of Diabetes Mellitus. Result Comment: [place] om Glucose Reference Range is dependent on time and content of last meal. Glucose of more than 200 mg/dL in a nonstressed, ambulatory subject supports the diagnosis of Diabetes Mellitus. ADA recommended reference range Performed By: #### B MP, CBC #### [facility] [address] Hematocrit [Volume Fraction] of Blood by Automated countOrdered By: Ketty Brand on 10-11-2023 Hematocrit (Bld) [Volume fraction] 44.1 % Normal 34.0-46.4 [facility] Comment on above: Performed By: #### B MP, CBC #### [facility] [address] [place] [address] Hemoglobin [Mass/volume] in BloodOrdered By: Ketty Brand on 10-11-2023 Hemoglobin (Bld) [Mass/Vol] 14.8 g/dL Normal 11.8-15.4 [facility] Comment on above: Performed By: #### B MALU, CBC #### [facility] [address] [place] [address] INR in Platelet poor plasma by Coagulation assayOrdered By: Ketty Brand on 10-11-2023 INR Coag (PPP) [Relative time] 1.0 {INR} Normal [facility] Comment on above: INR Therapeutic Rang e A) Pre- and Peroperative OAT started two weeks before surgery. NOT HIP SURGERY: 1.5 - 2.5 HIP SURGERY: 2 - 3B) Primary and secondary prevention of venous THROMBOSIS: 2 - 3C) Active venous thrombosis, pulmonary embolismand prevention of recurrent venous thrombosis: 2 - 3D) Prevention of arterial thromboembolismincluding patients with mechanical heart valves: 3 - 4.5 Result Comment: INR Therapeutic Range A) Pre- and Peroperative OAT started two weeks before surgery. NOT HIP SURGERY: 1.5 - 2.5 HIP SURGERY: 2 - 3 B) Primary and secondary prevention of venous THROMBOSIS: 2 - 3 C) Active venous thrombosis, pulmonary embolism and prevention of recurrent venous thrombosis: 2 - 3 D) Prevention of arterial thromboembolism including patients with mechanical heart valves: 3 - 4.5 Performed By: #### B MALU, CBC #### [facility] [address] [place] [address] Leukocytes [#/volume] correc seferino for nucleated erythrocytes in Blood by Automated counOrdered By: Ketty Brand on 10-11-2023 WBC corrected for nucl RBC Auto (Bld) [#/Vol] 10.1 10*3/uL 3.8-11.6 [facility] Leukocytes [#/volume] in Blo od by Automated countOrdered By: Ketty Brand on 10-11-2023 WBC (Bld) [#/Vol] 10.1 10*3/uL Normal 3.8-11.6 [facility] Comment on above: Performed By: #### B MALU, CBC #### [facility] [address] Lymphocytes [#/volume] in Bl ood by Automated countOrdered By: Ketty Brand on 10-11-2023 Lymphocytes (Bld) [#/Vol] 2.2 10*3/uL Normal 1.00-4.8 [facility] Comment on above: Performed By: #### B MP, CBC #### [facility] [address] [place] [address] Lymphocytes/100 leukocytes i n Blood by Automated countOrdered By: Ketty Brand on 10-11-2023 Lymphocytes/100 WBC (Bld) 21.3 % Normal . [facility] Comment on above: Performed By: #### B MP, CBC #### [address] MCH [Entitic mass] by Automa seferino countOrdered By: Ketty Brand on 10-11-2023 MCH (RBC) [Entitic mass] 30.4 pg Normal 24.7-34.3 [facility] Comment on above: Performed By: #### B MP, CBC #### [address] MCHC Auto (RBC) [Mass/Vol]Or dered By: Ketty Brand on 10-11-2023 MCHC (RBC) [Mass/Vol] 33.6 g/dL 32.0-35.0 [facility] MCV [Entitic volume] by Auto mated countOrdered By: Ketty Brand on 10-11-2023 MCV (RBC) [Entitic vol] 90.5 fL Normal 80-100 [facility] Comment on above: Performed By: #### B MP, CBC #### [facility] [address] [place] [address] Monocyte distribution width [Entitic volume] in Blood by AutomatedOrdered By: Ketty Brand on 10-11-2023 Monocyte distribution width Auto (Bld) [Entitic vol] 17.73 % 0.00-20.00 [facility] Neutrophils [#/volume] in Bl ood by Automated countOrdered By: Ketty Brand on 10-11-2023 Neutrophils (Bld) [#/Vol] 6.9 10*3/uL Normal 1.8-7.7 [facility] Comment on above: Performed By: #### B MP, CBC #### [address] No Panel InformationOrdered By: Ketty Brand on 10-11-2023 Estimated GFR (CKD-EPI) > 60.0 mL/Min [facility] Pharmacy Creatinine Clearance (Chem N/A [facility] Nucleated erythrocytes [Pres ence] in Blood by Automated countOrdered By: Ketty Brand on 10-11-2023 Nucleated RBC Auto Ql (Bld) 0.1 /100{WBC} 0-0.5 [facility] Partial Thromboplastin Timeo n 10-11-2023 aPTT Coag (Bld) [Time] 32.0 s Normal 25.1-36.5 [facility] Comment on above: Result Comment: A he matocrit value greater than 55% may lead to inaccurate results in coagulation testing. Patients having hematocrit values >55% require a special collection tube for coagulation studies. Please contact the laboratory at [phone] for redraw instructions. PERFORMED BY: [place] [address] PATHOLOGIST SPRING BENDER MELODY WHEELER M.D. Performed By: #### B MP, CBC #### [address] Platelet mean volume [Entiti c volume] in Blood by Automated countOrdered By: Ketty Brand on 10-11-2023 Platelet mean volume (Bld) [Entitic vol] 8.4 fL Normal 6.3-10.7 [facility] Comment on above: Performed By: #### B MP, CBC #### [facility] [address] [place] [address] Platelets [#/volume] in Bloo d by Automated countOrdered By: Ketty Brand on 10-11-2023 Platelets (Bld) [#/Vol] 323 10*3/uL Normal 150-450 [facility] Comment on above: Performed By: #### B MP, CBC #### [facility] [address] Potassium [Moles/volume] in Serum or PlasmaOrdered By: Ketty Brand on 10-11-2023 Potassium [Moles/Vol] 4.5 mmol/L Normal 3.5-5.1 [facility] Comment on above: Performed By: #### B MP, CBC #### [address] Prothrombin time (PT)Ordered By: Ketty Brand on 10-11-2023 PT Coag (PPP) [Time] 12.3 s Normal 9.0-12.9 [facility] Comment on above: A hematocrit value g reater than 55% may lead to inaccurate results in coagulation testing. Patients having hematocrit values >55% require a special collection tube for coagulation studies. Please contact the laboratory at [phone] for redraw instructions. Result Comment: A he matocrit value greater than 55% may lead to inaccurate results in coagulation testing. Patients having hematocrit values >55% require a special collection tube for coagulation studies. Please contact the laboratory at [phone] for redraw instructions. Performed By: #### B MP, CBC #### [address] Serum or plasma anion gap de terminationOrdered By: Ketty Brand on 10-11-2023 Anion gap [Moles/Vol] 10.1 mmol/L Normal 6.0-15.0 [facility] Comment on above: Performed By: #### B MP, CBC #### [facility] [address] [place] [address] [place] Sodium [Moles/volume] in Ser um or PlasmaOrdered By: Ketty Brand on 10-11-2023 Sodium [Moles/Vol] 133 mmol/L Low 136-145 [facility] Comment on above: Performed By: #### B MP, CBC #### [facility] [address] [place] [address] [place] Type and Screenon 10-11-2023 ABO and Rh group Nom (Bld) Blood group O Rh(D) negative Normal [facility] Comment on above: Result Comment: PERF ORMED BY: [place] [address] PATHOLOGIST [employer]ENDER MELODY WHEELER M.D. Urea nitrogen [Mass/volume] in Serum or PlasmaOrdered By: Ketty Brand on 10-11-2023 Urea nitrogen [Mass/Vol] 11 mg/dL Normal 7-25 [facility] Comment on above: Performed By: #### B MP, CBC #### [address] XR chest 1Von 10-11-2023 XR chest 1V [facility] Main [place] [address] [place] [address] XRay Report Signed Patient: Heidi Palmer MR#: [id number] 13 : 1940 Acct:[id number] Age/Sex: 83 / F ADM Date: 10/11/23 Loc: ER Room: Type: [facility] ER Attending Dr: Copies to: Ketty Brand APRN Ordering Provider: Ketty Brand APRN Date of Service: 10/11/23 XR/XR chest 1V: Extremity Injury, Lower XR chest 1V 10/11/2023 1:47 PM SIGNS AND SYMPTOMS: Fall, right hip and knee pain PROTOCOL: Frontal radiograph of the chest COMPARISON: None FINDINGS: The trachea is midline. The heart and mediastinal structures are within normal limits. The lung parenchyma is clear. The bony thorax is intact. There is a levoconvex curvature of the thoracic spine. Degenerative changes are noted in the thoracic spine and shoulders. Surgical clips are present in the left axilla. XR/XR chest 1V IMPRESSION: No acute cardiopulmonary pathology. Impression dictated by: Tomasz Lerner M.D.10/11/2023 2:38 PM Dictation Location: [place] [address] Transcribed By: [facility] 10/11/23 1438 Dictated By: Tomasz Lerner II, MD 10/11/23 1438 Signed By: 10/11/23 1438 Normal [facility] XR hip RT min 2V(w/wo pelvis )*on 10-11-2023 XR hip RT min 2V(w/wo pelvis)* [place] [id number] XRay Report Signed Patient: Heidi Palmer MR#: [id number] [birth year] : 1940 Acct:[id number] Age/Sex: 83 / F ADM Date: 10/11/23 Loc: ER Room: Type: [facility] ER Attending Dr: Copies to: Ketty Brand APRN Ordering Provider: Ketty Brand APRN Date of Service: 10/11/23 XR/XR hip RT min 2V(w/wo pelvis)*: Extremity Injury, Lower XR hip RT min 2V(w/wo pelvis)* 10/11/2023 1:47 PM SIGNS AND SYMPTOMS: Fall, right hip pain PROTOCOL: Frontal radiograph of the pelvis with frontal and crosstable lateral views of the right hip COMPARISON: None FINDINGS: There is a subcapital fracture of the right femoral neck with varus angulation deformity. No dislocation. There is mild narrowing of the joint spaces of the hips. Degenerative changes are noted in the lower lumbar spine and within the sacroiliac joints. Vascular calcifications are present in the pelvis. XR/XR hip RT min 2V(w/wo pelvis)* IMPRESSION: There is a subcapital fracture of the right femoral neck with varus angulation deformity. No dislocation. Impression dictated by: Tomasz Lerner M.D.10/11/2023 2:36 PM Dictation Location: [place] [address] Transcribed By: [facility] 10/11/23 143 Dictated By: Tomasz Lerner II, MD 10/11/23 143 Signed By: 10/11/23 143 Normal [facility] XR knee RT 2Von 10-11-2023 XR knee RT 2V [facility] Main [address] [address] XRay Report Signed Patient: Heidi Palmer MR#: [id number] 13 : 1940 Acct:[id number] Age/Sex: 83 / F ADM Date: 10/11/23 Loc: ER Room: Type: [facility] ER Attending Dr: Copies to: Ketty Brand APRN Ordering Provider: Ketty Brand APRN Date of Service: 10/11/23 XR/XR knee RT 2V: Extremity Injury, Lower XR knee RT 2V 10/11/2023 1:47 PM SIGNS AND SYMPTOMS: Fall, right knee pain PROTOCOL: Frontal and lateral radiographs of the right knee COMPARISON: None FINDINGS: There is mild narrowing of the joint spaces of the hips. 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 There is moderate narrowing of the patellofemoral joint space. No soft tissue swelling. No fracture or dislocation. No joint effusion. XR/XR knee RT 2V IMPRESSION: No fracture. Tricompartmental degenerative changes are noted, as above. Impression dictated by: Tomasz Lerner M.D.10/11/2023 2:37 PM Dictation Location: [place] [address] Transcribed By: [facility] 10/11/23 1437 Dictated By: Tomasz Lerner II, MD 10/11/23 1436 Signed By: 10/11/23 1437 Normal [facility] Urine Cultureon 09-08-2023 Bacteria identified Cx Nom (U) >100,000 colonies/ml mixed bacterial skin contaminants including mixed gram negative bacilli - 2 Days PERFORMED BY: [place] [address] PATHOLOGIST [employer]ER MELODY WHEELER M.D. Normal [facility] Comment on above: Performed By: #### B MP, CBC #### [address] Urine culture routineOrdered By: Mica Hook on 09-08-2023 Bacteria identified Cx Nom (U) bacilli - 2 Days [facility] XR elbow LT 2Von 02-16-2023 XR elbow LT 2V [facility] [employer] Other XR elbow LT 2V [facility] [employer] Other XR elbow LT 2V [address] [place] [address] [employer] Other XR elbow [place] [address] [place] [address] No rt [employer] Other XR elbow LT 2V XRay Report [employer] Other XR elbow LT 2V Signed [employer] Other XR elbow LT 2V Patient: Palmer Palmer MR#: [id number] [employer] Other XR elbow LT 2V 13 [employer] Other XR elbow LT 2V : 1940 Acct:[id number] [employer] Other XR elbow LT 2V Age/Sex: 83 / F ADM Date: 02/16/23 [employer] Other XR elbow LT 2V Loc: [facility]XD Room: Type : REG CLI [employer] Other XR elbow LT 2V Attending Dr: Radha Mccauley MD [employer] Other XR elbow LT 2V Copies to: Uma Mccauley MD [employer] Other XR elbow LT 2V Ordering Provider: Uma Mccauley MD [employer] Other XR elbow LT 2V Date of Service: 02/16/23 [employer] Other XR elbow LT 2V XR/XR elbow LT 2V: Nondisplaced fracture of neck of left radius, [employer] Other XR elbow LT 2V subsequent enc [employer] Other XR elbow LT 2V LEFT ELBOW - 2 views [employer] Other XR elbow LT 2V CLINICAL HISTORY: Follow-up left radial neck fracture [employer] Other XR elbow LT 2V COMPARISON: Left elb ow 01/06/2023 [employer] Other XR elbow LT 2V FINDINGS: [employer] Other XR elbow LT 2V Radial neck fracture unchanged in alignment with interval sclerosis suggestive of healing response. [employer] Other XR elbow LT 2V No new fractures. Mi ld degenerative change. No joint effusion. [employer] Other XR elbow LT 2V X R/XR elbow LT 2V [employer] Other XR elbow LT 2V IMPRESSION: [employer] Other XR elbow LT 2V HEALING RADIAL NECK FRACTURE. [employer] Other XR elbow LT 2V Impression dictated by: Anthony Benson Jr., D.O.02/16/2023 12:21 PM [employer] Other XR elbow LT 2V Dictation Location: [facility] [employer] Other XR elbow LT 2V Transcribed By: PWS 02/16/23 [facility] [employer] Other XR elbow LT 2V Dictated By: Anthony Benson Jr DO 02/16/23 [facility] [employer] Other XR elbow LT 2V Signed By: [employer] Other XR elbow LT 2V 02/16/23 122 [employer] Other XR hand LT min 3V*on 023 XR hand LT min 3V* XR/XR hand LT min 3V*: Nondisplaced fracture of neck of left radius, [employer] Other XR hand LT min 3V* LEFT HAND - 4 views [employer] Other XR hand LT min 3V* REASON FOR EXAM: Follow-up mallet fracture [employer] Other XR hand LT min 3V* COMPARISON: Left dasilva d 01/06/2023 [employer] Other XR hand LT min 3V* Splint is seen invol ving the fifth digit. The patient's distal phalanx fracture of the fifth digit [employer] Other XR hand LT min 3V* appears grossly unchanged in alignment and healing compared to the prior study. No additional [employer] Other XR hand LT min 3V* fractures are seen. Mild degenerative changes involving the DIP joints particularly involving the [employer] Other XR hand LT min 3V* second and third DIP joints. Carpus demonstrates degenerative change. No bony erosions. [employer] Other XR hand LT min 3V* X R/XR hand LT min 3V* [employer] Other XR hand LT min 3V* NO SIGNIFICANT WALKER E IN THE DIGIT FRACTURE FINDINGS COMPARED TO THE PRIOR STUDY. [employer] Other XR hand LT min 3V* Impression dictated by: Anhtony Benson Jr., DCharuOCharu02/16/2023 12:24 PM [employer] Other XR hand LT min 3V* Transcribed By: PWS 02/16/23 1224 [employer] Other XR hand LT min 3V* Dictated By: Anthony Benson Jr, DO 02/16/23 1221 [employer] Other XR hand LT min 3V* 02/16/23 1224 [facility] [employer] Other Office Visit (Cardiology)on 01-14-2023 Follow-up visit Diagnoses/Problems Assessed CAD (coronary artery disease) (414.00) (I25.10) Diabetes mellitus (250.00) (E11.9) Edema (782.3) (R60.9) Essential hypertension, benign (401.1) (I10) History of PTCA (V45.82) (Z98.61) Hyperlipidemia (272.4) (E78.5) Body mass index (BMI) of 23.0 to 23.9 in adult (V85.1) (Z68.23) Never a smoker Orders Body mass index (BMI) of 23.0 to 23.9 in adult Healthy Weight Tips; Status:Complete - Retrospective Authorization; Done: 14Jan2023 Some eating tips that can help you lose weight.; Status:Complete - Retrospective Authorization; Done: 14Jan2023 Body mass index (BMI) of 23.0 to 23.9 in adult, CAD (coronary artery disease), Hyperlipidemia Lipid Panel; Status:Active - Retrospective Authorization; Requested for:16Apr2023; CAD (coronary artery disease) Renew: Aspirin EC 81 MG Oral Tablet Delayed Release; TAKE 1 TABLET DAILY CAD (coronary artery disease), Essential hypertension, benign, History of PTCA Cardiac Rehab Referral Evaluation and Treatment Evaluate AND Treat Status: Hold For - Scheduling,Retrospective Authorization Requested for: 14Jan2023 Agreement : I agree to have my patient participate in the phase III outpatient cardiac rehabilitation program after completion of the phase II program. Consent : I consent to have my patient participate in the cardiac rehabilitation program. I will continue regular medical care of my patient throughout his/her participation in the program. Individualized Treatment Plan and Exercise Prescription : Defer the patients ITP and exercise prescription to be developed by the staff for your review and approval I authorize the Cardiac Rehabilitation Department to : Current lab values are helpful in order to assess the lipid status and individualize diet therapy. A venous blood sample will be drawn and lipids analyzed at the laboratory I authorize the Cardiac Rehabilitation Department to : Schedule a symptom limited graded exercise test with 12 lead ECG prior to starting cardiac rehabilitation and at discharge, if needed. CAD (coronary artery disease), Hyperlipidemia IO SGOT; Status:Active - Perform Order,Retrospective Authorization; Requested for:16Apr2023; Essential hypertension, benign Renew: Propranolol HCl ER 160 MG Oral Capsule Extended Release 24 Hour; TAKE 1 CAPSULE BY MOUTH EVERY DAY Hyperlipidemia Start: Rosuvastatin Calcium 20 MG Oral Tablet; TAKE 1 TABLET DAILY SocHx: Never a smoker Tobacco Use Screening; Status:Complete; Done: 14Jan2023 Patient Instructions Please bring all medicines, vitamins, and herbal supplements with you when you come to the office. Prescriptions will not be filled unless you are compliant with your follow up appointments or have a follow up appointment scheduled as per instruction of your physician. Refills should be requested at the time of your visit. Fall prevention education given Cardiac Rehab referral Follow up in 1 year Chief Complaint HEIDI PALMER is being seen for an annual follow-up of. History of Present Illness Patient returns in follow-up of problems as noted. In the interim she is done well and has had no clinical events. It appears her blood pressure is adequately controlled. We note her cholesterol is not treated and upon our review we note that her LDL cholesterol is in excess of 200. Because of this I recommend statin therapy. She was initially resistant but her daughter is with her and she supports my recommendation. I pointed out to her that we do not wish another blockage that would lead to another PTCA in that regard she agrees and ultimately she will take the medication. Otherwise her blood pressure and diabetes appear to be adequately controlled. She is very happy regarding our implementation of diuretic therapy to treat her edema because she states she did lose 33 pounds of edema fluid after the adjustments in therapy and for this she wishes to continue therapy as before. We discussed her body mass index and it is ideal and she also has an never smoker in light of all the above we believe her cardiac risk has been adequately mitigated now with the introduction of statin therapy Surgical History Problems History of Ablation History of Ankle surgery History of Breast biopsy History of Complete colonoscopy History of Lower back surgery History of Thyroid surgery Past Medical History Problems History of Encounter for immunization (V03.89) (Z23) Resolved Date: 16 Jan 2022 Current Meds Medication NameInstruction Aspirin EC 81 MG Oral Tablet Delayed ReleaseTAKE 1 TABLET DAILY. Clindamycin HCl - 150 MG Oral CapsuleTAKE 4 CAPSULES BY MOUTH 1 HOUR PRIOR TO DENTAL APPOINTMENT Furosemide 40 MG Oral TabletTAKE 1 TABLET DAILY. HYDROcodone-Acetaminophe n 5-325 MG Oral TabletTAKE 1 TO 2 TABLETS BY MOUTH EVERY 6 HOURS NEEDED FOR 7 DAYS Jardiance 25 MG Oral TabletTAKE 1 TABLET BY MOUTH ONCE DAILY Klor-Con M10 10 MEQ Oral Tablet Extended Release Levothy (more content not included)... Normal MEEP Tobacco Screening.on 023 Adult depression screening assessment No [facility] 250 DO Work Phone: Fall risk assessment b) One or more fall s in the last year [facility] 250 DO Work Phone: Tobacco use status [facility] b) No [facility] 250 DO Work Phone: XR elbow LT 2Von 01-06-2023 XR elbow LT 2V [facility] [employer] Other XR elbow LT 2V [facility] [employer] Other XR elbow LT 2V [address] [facility] [employer] Other [place]R [place] [address] [address] No rt [employer] Other XR elbow LT 2V XRay Report [employer] Other XR elbow LT 2V Signed [employer] Other XR elbow LT 2V Patient: Palmer Palmer MR#: [id number] [place] Other XR elbow LT 2V 13 [employer] Other XR elbow LT 2V : 1940 Acct:[id number] [employer] Other XR elbow LT 2V Age/Sex: 82 / F ADM Date: 01/06/23 [employer] Other XR elbow LT 2V Loc: [facility]XD Room: Type : [facility] [employer] Other XR elbow LT 2V Attending Dr: Radha Mccauley MD [employer] Other XR elbow LT 2V Copies to: Uma Mccauley MD [employer] Other XR elbow LT 2V Ordering Provider: Uma Mccauley MD [employer] Other XR elbow LT 2V Date of Service: 01/06/23 [employer] Other XR elbow LT 2V XR/XR elbow LT 2V: Closed nondisplaced fracture of neck of left radius, [employer] Other XR elbow LT 2V initial [employer] Other XR elbow LT 2V XR elbow LT 2V 023 9:36 AM [employer] Other XR elbow LT 2V SIGNS AND SYMPTOMS: Status post left radial neck fracture, follow-up [employer] Other XR elbow LT 2V PROTOCOL: Frontal an d lateral radiographs of the left elbow [employer] Other XR elbow LT 2V COMPARISON: 12/18/2022 [employer] Other XR elbow LT 2V FINDINGS: [employer] Other XR elbow LT 2V There is redemonstra tion of a minimally displaced fracture of the neck of the radius without intra- [employer] Other XR elbow LT 2V articular extension. No change in alignment. Healing remains incomplete. No significant joint [employer] Other XR elbow LT 2V effusion. No disloca tion or subluxation. [employer] Other XR elbow LT 2V X R/XR elbow LT 2V [employer] Other XR elbow LT 2V IMPRESSION: [employer] Other XR elbow LT 2V Similar incompletely healed fracture traversing the radial neck without change in alignment. [employer] Other XR elbow LT 2V Impression dictated by: Tomasz Lerner M.D.01/06/2023 2:02 PM [employer] Other XR elbow LT 2V Dictation Location: [place] [address] [employer] Other XR elbow LT 2V Transcribed By: CHEKO 01/06/23 1402 [employer] Other XR elbow LT 2V Dictated By: Tomasz Lerner II, MD 01/06/23 1401 [employer] Other XR elbow LT 2V Signed By: Isidro Bookerrosemary del [place] [employer] Other XR elbow LT 2V 01/06/23 1402 Isidro girard [employer] Other XR hand LT min 3V*on 023 XR hand LT min 3V* XR/XR hand LT min 3V*: Closed nondisplaced fracture of phalanx of left [employer] Other XR hand LT min 3V* [facility] [place] [employer] Other XR hand LT min 3V* XR hand LT min 3V* 01/06/2023 9:36 AM [employer] Other XR hand LT min 3V* SIGNS AND SYMPTOMS: Follow-up left fifth digit fracture [employer] Other XR hand LT min 3V* PROTOCOL: Frontal, lateral, and oblique radiographs of the left hand [employer] Other XR hand LT min 3V* There is a minimally displaced fracture along the dorsal aspect of the ascending distal phalanx of [employer] Other XR hand LT min 3V* the fifth digit with intra-articular extension. There is no change in alignment. Healing remains [employer] Other XR hand LT min 3V* incomplete. There is mild fixed flexion deformity of the distal interphalangeal joint of the fifth [employer] Other XR hand LT min 3V* digit similar to the prior exam. There is narrowing of the distal interphalangeal joints throughout. [employer] Other XR hand LT min 3V* There is a tiny radiopaque foreign body along the tip of the second digit similar to the prior exam. [employer] Other XR hand LT min 3V* X R/XR hand LT min 3V* [employer] Other XR hand LT min 3V* Unchanged fracture a t the dorsal aspect of the base of the fifth distal phalanx. [facility] [employer] Other XR hand LT min 3V* Similar flexion deformity of the distal interphalangeal joint of the fifth digit without change in [employer] Other XR hand LT min 3V* alignment. [facility] [employer] Other XR hand LT min 3V* Impression dictated by: Tomasz Lerner M.D.01/06/2023 2:05 PM [place] [employer] Other XR hand LT min 3V* Transcribed By: CHEKO 01/06/[address] [facility] [employer] Other XR hand LT min 3V* Dictated By: Tomasz Lerner II, MD 01/06/[address] [facility] [employer] Other XR hand LT min 3V* 01/06/23 1405 [facility] [employer] Other CT CSPINE WO CONon CT CSPINE WO CON EXAMINATION: CT CSPI NE WO CON HISTORY: Falls COMPARISON: No relevant comparison available. TECHNIQUE: Axial, Coronal, and Sagittal images were created without IV contrast. Dose reduction techniques were achieved by using automated exposure control and/or adjustment of mA and/or kV according to patient size and/or use of iterative reconstruction technique. FINDINGS: VERTEBRAL BODIES: Slight reversal of normal lordotic curvature and mild left convex curvature. No fracture, spondylolisthesis, bone lesion. FACET JOINTS: Multilevel moderate marked degenerative facet arthropathy on right, mild on left. No fracture or facet joint disruption. CERVICAL DISCS: Multilevel moderate-marked disc space narrowing with posterior disc height loss joint complexes and uncovertebral joint spurring. CENTRAL CANAL: Multilevel moderate central canal and bilateral foramen narrowing. No evidence of hemorrhage. PARASPINAL AREA: No visible mass. IMPRESSION: 1. No appreciable acute abnormality. 2. Multilevel moderate marked degenerative changes. Electronically authenticated by: GRADY PARKER Date: 2022-12-18 13:55 Normal [facility] CT HEAD WO CONon 12-18-2022 CT HEAD WO CON EXAMINATION: CT HEAD WO CON HISTORY: Falls COMPARISON: CT head 12/12/2018 TECHNIQUE: Axial CT images were obtained without IV contrast. Dose reduction techniques were achieved by using automated exposure control and/or adjustment of mA and/or kV according to patient size and/or use of iterative reconstruction technique. FINDINGS: BRAIN: Old lacunar infarction in region of left head of caudate nucleus. No edema, hemorrhage, mass, acute infarction, or inappropriate atrophy. CSF SPACES: No hydrocephalus, subarachnoid hemorrhage, or mass. Appropriate for age. SKULL: No fracture, mass, or other significant visible lesion. SINUSES: Marked mucosal thickening nearly completely filling the right maxillary sinus. Prior right maxillary antrectomy. Partially fluid-filled left sphenoid sinus. ORBITS: No appreciable abnormality on the limited views. OTHER: Negative IMPRESSION: 1. No intracranial hemorrhage or appreciable acute abnormality brain. 2. Age consistent chronic changes and small old lacunar infarction. 3. Suspect acute on chronic sinusitis involving the right maxillary and left sphenoid sinuses. Electronically authenticated by: GRADY PARKER Date: 2022-12-18 13:39 Normal [facility] CULTURE URINEon 11-25-2022 CULTURE URINE Isolate 1 Escherichia coli >100,000 cfu/mL of ORGANISM 1 Escherichia coli ANTIBIOTIC M.I.C RX STATUS Ampicillin <=2 S F Ampicillin/Sulbactam <=2 S F Piperacillin/Tazobactam <=4 S F Cefazolin <=4 S F Ceftazidime <=1 S F Ceftriaxone <=1 S F Ertapenem <=0.5 S F Imipenem <=0.25 S F Amikacin <=2 S F Gentamicin <=1 S F Tobramycin <=1 S F Ciprofloxacin <=0.25 S F Levofloxacin <=0.12 S F Nitrofurantoin <=16 S F Trimethoprim/Sulfamethox azole <=20 S F Normal [facility] Comment on above: Performed By: #### U RCX ####[facility] [address] [place], [place] [address]PbCharu Walker CBC AUTO DIFFon 11-23-2022 BASO # 0.1 103/ul Normal 0.0-0.1 [facility] Comment on above: Performed By: #### C BC #### [facility] [address] [place] [id number] Grace Walker Basophils/100 WBC (Bld) 0.8 % Normal 0.2-2.0 [facility] Comment on above: Performed By: #### C BC #### [facility] [address] [place] [address] [address] Grace Walker EO # 0.1 103/ul Normal 0.0-0.7 [facility] Comment on above: Performed By: #### C BC #### [facility] [address] [place] [address] [address] Grace Walker Eosinophils/100 WBC (Bld) 1.1 % Normal 0.9-7.0 [facility] Comment on above: Performed By: #### C BC #### [facility] [address] [place] [address] [address] Grace Walker Erythrocyte distribution width (RBC) [Ratio] 13.4 % Normal 11.0-15.0 [facility] Comment on above: Performed By: #### C BC #### [facility] [address] [place] [address] [address] Grace Walker Hematocrit (Bld) [Volume fraction] 48.6 % Critically high 36.0-48.0 [facility] Comment on above: Performed By: #### C BC #### [facility] [facility] [address] [address] [address] Grace Walker Hemoglobin (Bld) [Mass/Vol] 15.9 g/dL Normal 12.0-16.0 [facility] Comment on above: Performed By: #### C BC #### [facility] [address] [address] [address] Grace Walker IG # 0.14 10e3/ul Critically high 0.00-0.03 [facility] Comment on above: Performed By: #### C BC #### [facility] [address] [address] [address] Grace Walker IG % 1.2 % Critically high 0.0-0.5 [facility] Comment on above: Performed By: #### C BC #### [facility] [address] [address] [address] Grace Walker LYMPH # 1.8 103/ul Normal 1.2-3.8 [facility] Comment on above: Performed By: #### C BC #### [facility] [address] [place] [address] Dr. Grace Walker Lymphocytes/100 WBC (Bld) 15.9 % Critically low 20.5-60.0 [facility] Comment on above: Performed By: #### C BC #### [facility] [address] [place] [address] Dr. Grace Walker MANUAL DIFF REQ NO Normal [facility] Comment on above: Performed By: #### C BC #### [facility] [address] [place] [address] Dr. Grace Walker MCH (RBC) [Entitic mass] 29.8 pg Normal 26.7-34.0 [facility] Comment on above: Performed By: #### C BC #### [facility] [address] [place] [address] Dr. Grace Walker MCHC (RBC) [Mass/Vol] 32.7 g/dL Normal 29.9-35.2 [facility] Comment on above: Performed By: #### C BC #### [facility] [address] [place] [address] Dr. Grace Walker MCV (RBC) [Entitic vol] 91.0 fL Normal 81.0-99.0 [facility] Comment on above: Performed By: #### C BC #### [facility] [address] [place] [address] Dr. Grace Walker MONO # 1.0 103/ul Critically high 0.3-0.8 [facility] Comment on above: Performed By: #### C BC #### [facility] [address] [place] [address] Dr. Grace Walker Monocytes/100 WBC (Bld) 8.8 % Normal 1.7-12.0 [facility] Comment on above: Performed By: #### C BC #### [facility] [address] [address] [address] Grace Walker NEUT # 8.2 103/ul Critically high 1.4-6.5 [facility] Comment on above: Performed By: #### C BC #### [facility] [address] [address] [address] Grace Walker Neutrophils/100 WBC (Bld) 72.2 % Normal 43.0-75.0 [facility] Comment on above: Performed By: #### C BC #### [facility] [address] [address] [address] Grace Walker Platelet mean volume (Bld) [Entitic vol] 9.6 fL Normal 9.5-13.5 [facility] Comment on above: Performed By: #### C BC #### [facility] [address] [address] [address] Grace Walker PLT 268 103/ul Normal 150-450 [facility] Comment on above: Performed By: #### C BC #### [facility] [address] [address] [address] Grace Walker RBC 5.34 106/ul Normal 4.20-5.40 [facility] Comment on above: Performed By: #### C BC #### [facility] [address] [address] [address] Grace Walker WBC 11.3 103/ul Critically high 4.0-11.0 [facility] Comment on above: Performed By: #### C BC #### [facility] [address] [address] [address] Grace Walker GLYCOHEMOGLOBIN A1Con 2022 ADA RECOMMENDATION SEE BELOW Normal [facility] Comment on above: Result Comment: ADA RECOMMENDED LIMIT 4.0 - 6.0 ADA THERAPEUTIC TARGET < 7.0 ACTION SUGGESTED > 7.0 Performed By: #### A 1C ####[facility] [address] [address]Dr. Grace Walker Glucose [Mass/Vol] 192 mg/dL Normal [facility] Comment on above: Performed By: #### A 1C ####[facility] [address] [address]Dr. Grace Walker HbA1c (Bld) [Mass fraction] 8.3 % Critically high 4.5-6.2 [facility] Comment on above: Performed By: #### A 1C ####[facility] [address] [address]Dr. Grace Walker MICROALBUMIN, RAND URon 11-08 mALB 12.6 mg/L Normal <=30.0 [facility] Comment on above: Performed By: #### M ALBR #### [facility] [address] [address] [address] Grace Walker PROF 14(COMP METB)on 023 Albumin [Mass/Vol] 3.4 g/dL Normal 3.4-5.0 [facility] Comment on above: Performed By: #### C MP #### [facility] [address] [address] [address] Grace Walker Albumin/Globulin [Mass ratio] 0.9 {ratio} Normal [facility] Comment on above: Performed By: #### C MP #### [facility] [address] [address] [address] Grace Walker ALP [Catalytic activity/Vol] 82 U/L Normal 46-116 [facility] Comment on above: Performed By: #### C MP #### [facility] [address] [address] [address] Grace Walker ALT [Catalytic activity/Vol] 11 U/L Critically low 14-59 [facility] Comment on above: Performed By: #### C MP #### [facility] [address] [address] [address] Grace Walker Anion gap [Moles/Vol] 11.6 mmol/L Normal [facility] Comment on above: Performed By: #### C MP #### [facility] [address] [address] [address] Grace Walker AST [Catalytic activity/Vol] 13 U/L Critically low 15-37 [facility] Comment on above: Performed By: #### C MP #### [facility] [address] [address] [address] Grace Walker Bilirubin [Mass/Vol] 0.6 mg/dL Normal 0.2-1.0 [facility] Comment on above: Performed By: #### C MP #### [facility] [address] [address] [address] Grace Walker Calcium [Mass/Vol] 9.0 mg/dL Normal 8.5-10.1 [facility] Comment on above: Performed By: #### C MP #### [facility] [address] [address] [address] Grace Walker Chloride [Moles/Vol] 101 mmol/L Normal 98-107 [facility] Comment on above: Performed By: #### C MP #### [facility] [address] [address] [address] Grace Walker CO2 [Moles/Vol] 27.5 mmol/L Normal 21.0-32.0 [facility] Comment on above: Performed By: #### C MP #### [facility] [address] [address] [address] Grace Walker Creatinine [Mass/Vol] 0.95 mg/dL Normal 0.55-1.02 [facility] Comment on above: Performed By: #### C MP #### [facility] [address] [address] [address] Grace Walker EGFR-AF [place] >60 Normal >=60 [facility] Comment on above: Performed By: #### C MP #### [facility] [address] [address] [address] Grace Walker EGFR-NON AF [place] 56 mL/min/1.73m2 Critically low >=60 [facility] Comment on above: Performed By: #### C MP #### [facility] [address] [place] [address] Dr. Grace Walker Globulin (S) [Mass/Vol] 3.7 g/dL Normal [facility] Comment on above: Performed By: #### C MP #### [facility] [address] [address] [address] Grace Walker Glucose [Mass/Vol] 225 mg/dL Critically high 74-106 [facility] Comment on above: Performed By: #### C MP #### [facility] [address] [address] [address] Grace Walker Potassium [Moles/Vol] 4.1 mmol/L Normal 3.5-5.1 [facility] Comment on above: Performed By: #### C MP #### [facility] [address] [address] [address] Grace Walker Protein [Mass/Vol] 7.1 g/dL Normal 6.4-8.2 [facility] Comment on above: Performed By: #### C MP #### [facility] [address] [address] [address] Grace Walker Sodium [Moles/Vol] 136 mmol/L Normal 136-145 [facility] Comment on above: Performed By: #### C MP #### [facility] [address] [address] [address] Grace Walker Urea nitrogen [Mass/Vol] 18.0 mg/dL Normal 7.0-18.0 [facility] Comment on above: Performed By: #### C MP #### [facility] [address] [address] [address] Grace Walker Urea nitrogen/Creatinine [Mass ratio] 18.9 mg/mg Normal [facility] Comment on above: Performed By: #### C MP #### [facility] [address] [address] [address] Grace Walker CBC AUTO DIFFon 03-02-2022 BASO # 0.1 103/ul Normal 0.0-0.1 [facility] Comment on above: Performed By: #### C BC ####[facility] [address] [address]Dr. Grace Walker Basophils/100 WBC (Bld) 1.5 % Normal 0.2-2.0 [facility] Comment on above: Performed By: #### C BC ####[facility] [address] [id number]. Grace Walker EO # 0.2 103/ul Normal 0.0-0.7 [facility] Comment on above: Performed By: #### C BC ####[facility] [address] [id number]. Grace Walker Eosinophils/100 WBC (Bld) 2.6 % Normal 0.9-7.0 [facility] Comment on above: Performed By: #### C BC ####[facility] [address] [address]Dr. Grace Walkre Erythrocyte distribution width (RBC) [Ratio] 13.8 % Normal 11.0-15.0 [facility] Comment on above: Performed By: #### C BC ####[facility] [address] [place], [place] [address]Dr. Grace Walker Hematocrit (Bld) [Volume fraction] 46.3 % Normal 36.0-48.0 [facility] Comment on above: Performed By: #### C BC ####[facility] [address] [place], [place] [address]Dr. Grace Walker Hemoglobin (Bld) [Mass/Vol] 14.8 g/dL Normal 12.0-16.0 [facility] Comment on above: Performed By: #### C BC ####[facility] [address] [address]Dr. Grace Walker IG # 0.17 10e3/ul Critically high 0.00-0.03 [facility] Comment on above: Performed By: #### C BC ####[facility] [address] [id number]. Grace Walker IG % 2.1 % Critically high 0.0-0.5 [facility] Comment on above: Performed By: #### C BC ####[facility] [address] [address]Dr. Grace Walker LYMPH # 2.5 103/ul Normal 1.2-3.8 [facility] Comment on above: Performed By: #### C BC ####[facility] [address] [id number]. Grace Deep Lymphocytes/100 WBC (Bld) 30.4 % Normal 20.5-60.0 [facility] Comment on above: Performed By: #### C BC ####[facility] [address] [id number]. Iraisvanessa Walker MANUAL DIFF REQ NO Normal [facility] Comment on above: Performed By: #### C BC ####[facility] [address] [address]Dr. rIaisvanessa Walker MCH (RBC) [Entitic mass] 29.9 pg Normal 26.7-34.0 [facility] Comment on above: Performed By: #### C BC ####[facility] [address] [address]Dr. Grace Deep MCHC (RBC) [Mass/Vol] 32.0 g/dL Normal 29.9-35.2 [facility] Comment on above: Performed By: #### C BC ####[facility] [address] [address]Dr. Iraisvanessa Walker MCV (RBC) [Entitic vol] 93.5 fL Normal 81.0-99.0 [facility] Comment on above: Performed By: #### C BC ####[facility] [address] [address]Dr. Grace Walker MONO # 1.0 103/ul Critically high 0.3-0.8 [facility] Comment on above: Performed By: #### C BC ####[facility] [address] [address]Dr. Grace Walker Monocytes/100 WBC (Bld) 11.7 % Normal 1.7-12.0 [facility] Comment on above: Performed By: #### C BC ####[facility] [address] [address]Dr. Grace Walker NEUT # 4.2 103/ul Normal 1.4-6.5 [facility] Comment on above: Performed By: #### C BC ####[facility] [address] [id number]. Grace Walker Neutrophils/100 WBC (Bld) 51.7 % Normal 43.0-75.0 [facility] Comment on above: Performed By: #### C BC ####[facility] [address] [id number]. Grace Walker Platelet mean volume (Bld) [Entitic vol] 10.5 fL Normal 9.5-13.5 [facility] Comment on above: Performed By: #### C BC ####[facility] [address] [id number]. Grace Walker PLT 278 103/ul Normal 150-450 [facility] Comment on above: Performed By: #### C BC ####[facility] [address] [id number]. Grace Walker RBC 4.95 106/ul Normal 4.20-5.40 [facility] Comment on above: Performed By: #### C BC ####[facility] [address] [id number]. Grace Walker WBC 8.1 103/ul Normal 4.0-11.0 [facility] Comment on above: Performed By: #### C BC ####[facility] [address] [id number]. Grace Walker DIRECT LDLon 03-02-2022 Cholesterol in LDL [Mass/Vol] 223 mg/dL Normal [facility] Comment on above: Performed By: #### D LDL, LIPID, CMP ####[facility] [address] [id number]. Grace Deep DLDL NORMAL SEE BELOW Normal [facility] Comment on above: Result Comment: <100 mg/dl OPTIMAL 100 - 129 mg/dl NEAR OR ABOVE OPTIMAL 130 - 159 mg/dl BORDERLINE HIGH 160 - 189 mg/dl HIGH >190 mg/dl VERY HIGH Performed By: #### D LDL, LIPID, CMP ####[facility] [address] [id number]. Grace Deep GLYCOHEMOGLOBIN A1Con 2021 ADA RECOMMENDATION SEE BELOW Normal [facility] Comment on above: Result Comment: ADA RECOMMENDED LIMIT 4.0 - 6.0 ADA THERAPEUTIC TARGET < 7.0 ACTION SUGGESTED > 7.0 Performed By: #### A 1C #### [facility] [address] [place] [address] Dr. Grace Walker Glucose [Mass/Vol] 223 mg/dL Normal [facility] Comment on above: Performed By: #### A 1C #### [facility] [address] [address] [address] Grace Walker HbA1c (Bld) [Mass fraction] 9.4 % Critically high 4.5-6.2 [facility] Comment on above: Performed By: #### A 1C #### [facility] [address] [place] [address] Dr. Grace Walker LIPID PROFILEon 03-02-2022 CHOL-HDL RATIO NORM SEE BELOW Normal [facility] Comment on above: Result Comment: 3.3 - 4.4 LOW RISK 4.4 - 7.1 AVERAGE RISK 7.1 - 11.0 MODERATE RISK >11.0 HIGH RISK Performed By: #### D LDL, LIPID, CMP #### [facility] [address] [place] [address] Dr. Grace Walker Cholesterol [Mass/Vol] 374 mg/dL Critically high <=200 [facility] Comment on above: Performed By: #### D LDL, LIPID, CMP #### [facility] [address] [place] [address] Dr. Grace Walker Cholesterol in HDL [Mass/Vol] 43 mg/dL Normal 40-60 [facility] Comment on above: Performed By: #### D LDL, LIPID, CMP #### [facility] [address] [address] [address] Grace Walker Cholesterol.total/Consuelo sterol in HDL [Mass ratio] 8.7 {ratio} Normal [facility] Comment on above: Performed By: #### D LDL, LIPID, CMP #### [facility] [address] [address] [address] Grace Walkre HDL NORMAL > or = 60 mg/dl - LO W CARDIOVASCULAR RISK <40 mg/dl - HIGH CARDIOVASCULAR RISK Normal [facility] Comment on above: Performed By: #### D LDL, LIPID, CMP #### [facility] [address] [place] [address] Dr. Grace Walker Triglyceride [Mass/Vol] 461 mg/dL Critically high <=150 [facility] Comment on above: Performed By: #### D LDL, LIPID, CMP #### [facility] [address] [place] [address] Dr. Grace Walker VLDL CALC 92.2 mg/dL Normal [facility] Comment on above: Performed By: #### D LDL, LIPID, CMP #### [facility] [address] [place] [address] Dr. Grace Walker PROF 14(COMP METB)on 022 Albumin [Mass/Vol] 3.2 g/dL Critically low 3.4-5.0 [facility] Comment on above: Performed By: #### D LDL, LIPID, CMP #### [facility] [address] [place] [address] Dr. Grace Walker Albumin/Globulin [Mass ratio] 0.9 {ratio} Normal [facility] Comment on above: Performed By: #### D LDL, LIPID, CMP #### [facility] [address] [place] [address] Dr. Grace Walker ALP [Catalytic activity/Vol] 89 U/L Normal 46-116 [facility] Comment on above: Performed By: #### D LDL, LIPID, CMP #### [facility] [address] [place] [address] Dr. Grace Walker ALT [Catalytic activity/Vol] 13 U/L Critically low 14-59 [facility] Comment on above: Performed By: #### D LDL, LIPID, CMP #### [facility] [address] [place] [address] Dr. Grace Walker Anion gap [Moles/Vol] 11.5 mmol/L Normal [facility] Comment on above: Performed By: #### D LDL, LIPID, CMP #### [facility] [address] [place], [place] [id number] Dr. Grace Walker AST [Catalytic activity/Vol] 9 U/L Critically low 15-37 [facility] Comment on above: Performed By: #### D LDL, LIPID, CMP #### [facility] [address] [address] [address] Grace Walker Bilirubin [Mass/Vol] 0.4 mg/dL Normal 0.2-1.0 [facility] Comment on above: Performed By: #### D LDL, LIPID, CMP #### [facility] [address] [place] [address] Dr. Grace Walker Calcium [Mass/Vol] 8.7 mg/dL Normal 8.5-10.1 [facility] Comment on above: Performed By: #### D LDL, LIPID, CMP #### [facility] [address] [place] [address] Dr. Grace Walker Chloride [Moles/Vol] 101 mmol/L Normal 98-107 [facility] Comment on above: Performed By: #### D LDL, LIPID, CMP #### [facility] [address] [address] [address] Grace Walker CO2 [Moles/Vol] 26.2 mmol/L Normal 21.0-32.0 [facility] Comment on above: Performed By: #### D LDL, LIPID, CMP #### [facility] [address] [place] [address] Dr. Grace Walker Creatinine [Mass/Vol] 1.26 mg/dL Critically high 0.55-1.02 [facility] Comment on above: Performed By: #### D LDL, LIPID, CMP #### [facility] [address] [place] [address] Dr. Grace Walker EGFR-AF [place] 49 mL/min/1.73m2 Critically low >=60 [facility] Comment on above: Performed By: #### D LDL, LIPID, CMP #### [facility] [address] [address] [address] Grace Walker EGFR-NON AF [place] 41 mL/min/1.73m2 Critically low >=60 [facility] Comment on above: Performed By: #### D LDL, LIPID, CMP #### [facility] [address] [address] [address] Grace Walker Globulin (S) [Mass/Vol] 3.5 g/dL Normal [facility] Comment on above: Performed By: #### D LDL, LIPID, CMP #### [facility] [address] [place] [address] Dr. Grace Walker Glucose [Mass/Vol] 196 mg/dL Critically high 74-106 [facility] Comment on above: Performed By: #### D LDL, LIPID, CMP #### [facility] [address] [place] [address] Dr. Grace Walker Potassium [Moles/Vol] 4.7 mmol/L Normal 3.5-5.1 [facility] Comment on above: Performed By: #### D LDL, LIPID, CMP #### [facility] [address] [place] [address] Dr. Grace Walker Protein [Mass/Vol] 6.7 g/dL Normal 6.1-8.2 [facility] Comment on above: Performed By: #### D LDL, LIPID, CMP #### [facility] [address] [place] [address] Dr. Grace Walker Sodium [Moles/Vol] 134 mmol/L Critically low 136-145 [facility] Comment on above: Performed By: #### D LDL, LIPID, CMP #### [facility] [address] [place] [address] Dr. Grace Walker Urea nitrogen [Mass/Vol] 18.0 mg/dL Normal 7.0-18.0 [facility] Comment on above: Performed By: #### D LDL, LIPID, CMP #### [facility] [address] [place] [address] Dr. Grace Walker Urea nitrogen/Creatinine [Mass ratio] 14.3 mg/mg Normal [facility] Comment on above: Performed By: #### D LDL, LIPID, CMP #### [facility] [address] [place] [address] Dr. Grace Walker CULTURE URINEon 02-28-2022 CULTURE URINE Isolate 1 Escherichia coli >100,000 cfu/mL of ORGANISM 1 Escherichia coli ANTIBIOTIC M.I.C RX STATUS Ampicillin <=2 S F Ampicillin/Sulbactam <=2 S F Cefazolin <=4 S F Ceftazidime <=1 S F Ceftriaxone <=1 S F Ertapenem <=0.5 S F Imipenem 0.5 S F Amikacin <=2 S F Gentamicin <=1 S F Tobramycin <=1 S F Ciprofloxacin <=0.25 S F Levofloxacin <=0.12 S F Nitrofurantoin <=16 S F Trimethoprim/Sulfamethox azole <=20 S F Normal [facility] Comment on above: Performed By: #### U RCX ####[facility] [address] [place], [place] [address]KgCharu Walker Tobacco Screening.on 022 Adult depression screening assessment No [facility] y 250 DO Work Phone: Fall risk assessment a) No falls within the last year [facility] y 250 DO Work Phone: Tobacco use status [facility]PHS b) No M [facility] y 250 DO Work Phone: BASIC METABOLIC PANELon Calcium mass conc 8.2 mg/dL Low 8.6-10.3 [facility] Comment on above: Order Comment: No: D o not add to previous draw Performed By: #### 0 0121, [id number], [id number] #### [facility] [address] [place] [address], [place] Chloride molar conc 108 mmol/L High 98-107 [facility] Comment on above: Order Comment: No: D o not add to previous draw Performed By: #### 0 0121, [id number], [id number] #### [facility] [address] [place] [address], [place] CO2 molar conc 21 mmol/L Normal 21-31 [facility] Comment on above: Order Comment: No: D o not add to previous draw Performed By: #### 0 0121, [id number], [id number] #### [facility] [address] [place] [address], [facility] Creatinine mass conc 0.43 mg/dL Low 0.60-1.20 [facility] Comment on above: Order Comment: No: D o not add to previous draw Performed By: #### 0 0121, [id number], [id number] #### [facility] [address] [place] [address], [facility] GFR/1.73 sq M predicted among blacks MDRD vol rate/area (S/P/Bld) mL/min/{1.73_m2} Normal >60 [facility] Comment on above: Order Comment: No: D o not add to previous draw Result Comment: Calc ulation may not be valid for patients over 70 years Performed By: #### 0 0121, 32190, 49999 #### [facility] [address] [place] [address], [facility] GFR/1.73 sq M predicted among non-blacks MDRD vol rate/area (S/P/Bld) mL/min/{1.73_m2} Normal >60 [facility] Comment on above: Order Comment: No: D o not add to previous draw Result Comment: Calc ulation may not be valid for patients over 70 years Performed By: #### 0 0121, 67930, 95201 #### [facility] [address] [place] [address], [facility] Glucose mass conc 148 mg/dL High 70-100 [facility] Comment on above: Order Comment: No: D o not add to previous draw Performed By: #### 0 0121, 15901, 68443 #### [facility] [address] [place] [address], [facility] Potassium molar conc 3.7 mmol/L Normal 3.5-5.1 [facility] Comment on above: Order Comment: No: D o not add to previous draw Performed By: #### 0 0121, 54496, 28616 #### [facility] [address] [place] [address], [facility] Sodium molar conc 137 mmol/L Normal 136-145 [facility] Comment on above: Order Comment: No: D o not add to previous draw Performed By: #### 0 0121, 94166, 91204 #### [facility] [address] [place] [address], [facility] Urea nitrogen mass conc 9 mg/dL Normal 7-25 [facility] Comment on above: Order Comment: No: D o not add to previous draw Performed By: #### 0 0121, 69407, 95541 #### [facility] [address] [place] [address], [facility] HEMOGLOBIN A1Con 12-16-2018 Hemoglobin A1c/Hemoglobin.total mass fraction (Bld) 7.5 % High 4.0-6.0 [facility] Comment on above: Order Comment: Yes: Add to Previous draw if able Performed By: #### 0 0121, 21128, 77575 #### [facility] [address] Hemoglobin A1c/Hemoglobin.total mass fraction (Bld) 169 mg/dL High 70-126 [facility] Comment on above: Order Comment: Yes: Add to Previous draw if able Performed By: #### 0 0121, 77232, 37881 #### [facility] [address] [place] [address], [facility] MAGNESIUM BLOODon 12-16-2018 Magnesium mass conc 1.9 mg/dL Normal 1.9-2.7 [facility] Comment on above: Order Comment: No: D o not add to previous draw Performed By: #### 0 0121, 52678, 24163 #### [facility] [address] [place] [address], [facility] POC GLUCOSE LABon 12-16-2018 Glucose mass conc 205 mg/dL High 70-100 [facility] Comment on above: Performed By: #### 0 0121, 47380, 66366 #### [facility] [address] [place] [address], [facility] Glucose mass conc 147 mg/dL High 70-100 [facility] Comment on above: Performed By: #### 0 0121, 63182, 62689 #### [facility] [address] [place] [address], [facility] BASIC METABOLIC PANELon 02-0 Calcium mass conc 8.2 mg/dL Low 8.6-10.3 [facility] Comment on above: Order Comment: No: D o not add to previous draw Performed By: #### 0 0121, 06729, 33338 #### [facility] [address] [place] [address], [facility] Chloride molar conc 106 mmol/L Normal 98-107 [facility] Comment on above: Order Comment: No: D o not add to previous draw Performed By: #### 0 0121, 53038, 95093 #### [facility] [address] [place] [address], [facility] CO2 molar conc 26 mmol/L Normal 21-31 [facility] Comment on above: Order Comment: No: D o not add to previous draw Performed By: #### 0 0121, 54171, 65434 #### [facility] [address] [place] [address], [facility] Creatinine mass conc 0.50 mg/dL Low 0.60-1.20 [facility] Comment on above: Order Comment: No: D o not add to previous draw Performed By: #### 0 0121, 42023, 80646 #### [facility] [address] [place] [address], [facility] GFR/1.73 sq M predicted among blacks MDRD vol rate/area (S/P/Bld) mL/min/{1.73_m2} Normal >60 [facility] Comment on above: Order Comment: No: D o not add to previous draw Result Comment: Calc ulation may not be valid for patients over 70 years Performed By: #### 0 0121, 71774, 47017 #### [facility] [address] [place] [address], [facility] GFR/1.73 sq M predicted among non-blacks MDRD vol rate/area (S/P/Bld) mL/min/{1.73_m2} Normal >60 [facility] Comment on above: Order Comment: No: D o not add to previous draw Result Comment: Calc ulation may not be valid for patients over 70 years Performed By: #### 0 0121, 88127, 85108 #### [facility] [address] [place] [address], [facility] Glucose mass conc 183 mg/dL High 70-100 [facility] Comment on above: Order Comment: No: D o not add to previous draw Performed By: #### 0 0121, 64137, 97117 #### [facility] [address] [place] [address], [facility] Potassium molar conc 3.3 mmol/L Low 3.5-5.1 [facility] Comment on above: Order Comment: No: D o not add to previous draw Performed By: #### 0 0121, 84798, 22731 #### [facility] [address] [place] [address], [place] Sodium molar conc 139 mmol/L Normal 136-145 [facility] Comment on above: Order Comment: No: D o not add to previous draw Performed By: #### 0 0121, 80134, 40441 #### [facility] [address] [place] [address], [facility] Urea nitrogen mass conc 10 mg/dL Normal 7-25 [facility] Comment on above: Order Comment: No: D o not add to previous draw Performed By: #### 0 0121, 19194, 02467 #### [facility] [address] CBC W/DIFFon 12-15-2018 ABS BASOPHILS 0.1 10*3/uL Normal 0.0-0.2 [facility] Comment on above: Order Comment: No: D o not add to previous draw Performed By: #### 0 0121, 36546, 40859 #### [facility] [address] ABS IMM GRANS 0.1 10*3/uL Normal 0.0-0.2 [facility] Comment on above: Order Comment: No: D o not add to previous draw Performed By: #### 0 0121, 57625, 43603 #### [facility] [address] ABS NEUTROPHILS 14.5 10*3/uL High 1.6-7.6 [facility] Comment on above: Order Comment: No: D o not add to previous draw Performed By: #### 0 0121, 14048, 24234 #### [facility] [address] Basophils #/vol (Bld) 0.3 % Normal 0.0-1.0 [facility] Comment on above: Order Comment: No: D o not add to previous draw Performed By: #### 0 0121, 24589, 89614 #### [facility] [address] Eosinophils #/vol (Bld) 0.1 10*3/uL Normal 0.0-0.5 [facility] Comment on above: Order Comment: No: D o not add to previous draw Performed By: #### 0 0121, 17290, 41813 #### [facility] [address] [place] [address], [facility] Eosinophils/100 WBC (Bld) 0.7 % Normal 0.0-6.0 [facility] Comment on above: Order Comment: No: D o not add to previous draw Performed By: #### 0 0121, 54932, 55184 #### [facility] [address] Erythrocyte distribution width Ratio (RBC) 12.7 % Normal 11.5-15.0 [facility] Comment on above: Order Comment: No: D o not add to previous draw Performed By: #### 0 0121, 49790, 15535 #### [facility] [address] Hematocrit Volume Fraction (Bld) 41.1 % Normal 36.0-45.0 [facility] Comment on above: Order Comment: No: D o not add to previous draw Performed By: #### 0 0121, 78469, 79450 #### [facility] [address] Hemoglobin mass conc (Bld) 13.6 g/dL Normal 12.0-15.0 [facility] Comment on above: Order Comment: No: D o not add to previous draw Performed By: #### 0 0121, 40610, 03731 #### [facility] [address] [facility]. [address] IMMATURE GRANS 0.6 % Normal 0.0-1.0 [facility] Comment on above: Order Comment: No: D o not add to previous draw Performed By: #### 0 0121, 41525, 66516 #### [facility] [address] [facility]. [address] Lymphocytes #/vol (Bld) 2.0 10*3/uL Normal 1.2-4.0 [facility] Comment on above: Order Comment: No: D o not add to previous draw Performed By: #### 0 0121, 68756, 95151 #### [facility] [address] [place] [address], [facility] Lymphocytes/100 WBC (Bld) 10.8 % Low 20.0-45.0 [facility] Comment on above: Order Comment: No: D o not add to previous draw Performed By: #### 0 0121, 32115, 05357 #### [facility] [address] [place] [address], [facility] MCH Entitic mass (RBC) 29.1 pg Normal 27.0-33.0 [facility] Comment on above: Order Comment: No: D o not add to previous draw Performed By: #### 0 0121, 08361, 22268 #### [facility] [address] MCHC mass conc (RBC) 33.1 g/dL Normal 32.0-35.0 [facility] Comment on above: Order Comment: No: D o not add to previous draw Performed By: #### 0 0121, 20437, 87448 #### [facility] [address] MCV Entitic volume (RBC) 88.0 fL Normal 82.0-98.0 [facility] Comment on above: Order Comment: No: D o not add to previous draw Performed By: #### 0 0121, 19214, 17163 #### [facility] [address] [place] [address], [facility] Monocytes #/vol (Bld) 1.4 10*3/uL High 0.1-1.0 [facility] Comment on above: Order Comment: No: D o not add to previous draw Performed By: #### 0 0121, 25216, 33709 #### [facility] [address] [place] [address], [facility] MONOS 7.8 % Normal 5.0-12.0 [facility] Comment on above: Order Comment: No: D o not add to previous draw Performed By: #### 0 0121, 70744, 18123 #### [facility] [address] [place] [address], [facility] Neutrophils/100 WBC (Bld) 79.8 % High 40.0-72.0 [facility] Comment on above: Order Comment: No: D o not add to previous draw Performed By: #### 0 0121, 58628, 99177 #### [facility] [address] [place] [address], [facility] Nucleated RBC/100 WBC Ratio (Bld) 0 % Normal 0-0 [facility] Comment on above: Order Comment: No: D o not add to previous draw Performed By: #### 0 0121, 56748, 38850 #### [facility] [address] [place] [address], [facility] PLAT CNT 244 10*3/uL Normal 150-400 [facility] Comment on above: Order Comment: No: D o not add to previous draw Performed By: #### 0 0121, 94254, 25515 #### [facility] [address] [place] [address], [facility] RBC #/vol (Bld) 4.67 10*6/uL Normal 3.80-5.00 [facility] Comment on above: Order Comment: No: D o not add to previous draw Performed By: #### 0 0121, 38514, 87795 #### [facility] [address] [place] [address], [facility] WBC #/vol (Bld) 18.22 10*3/uL High 4.00-10.60 [facility] Comment on above: Order Comment: No: D o not add to previous draw Performed By: #### 0 0121, 36867, 14893 #### [facility] [address] [facility] [place] [address], [facility] ABS BASOPHILS 0.1 10*3/uL Normal 0.0-0.2 [facility] Comment on above: Order Comment: No: D o not add to previous draw Performed By: #### 0 0121, 74539, 13057 #### [facility] [address] ABS IMM GRANS 0.1 10*3/uL Normal 0.0-0.2 [facility] Comment on above: Order Comment: No: D o not add to previous draw Performed By: #### 0 0121, 37593, 25755 #### [facility] [address] [place] [address], [facility] ABS NEUTROPHILS 8.5 10*3/uL High 1.6-7.6 [facility] Comment on above: Order Comment: No: D o not add to previous draw Performed By: #### 0 0121, 93385, 74737 #### [facility] [address] Basophils #/vol (Bld) 0.5 % Normal 0.0-1.0 [facility] Comment on above: Order Comment: No: D o not add to previous draw Performed By: #### 0 0121, 49143, 29046 #### [facility] [address] [place] [address], [facility] Eosinophils #/vol (Bld) 0.2 10*3/uL Normal 0.0-0.5 [facility] Comment on above: Order Comment: No: D o not add to previous draw Performed By: #### 0 0121, 81241, 21534 #### [facility] [address] [place] [address], [facility] Eosinophils/100 WBC (Bld) 1.7 % Normal 0.0-6.0 [facility] Comment on above: Order Comment: No: D o not add to previous draw Performed By: #### 0 0121, 72455, 18537 #### [facility] [address] [place] [address], [facility] Erythrocyte distribution width Ratio (RBC) 12.7 % Normal 11.5-15.0 [facility] Comment on above: Order Comment: No: D o not add to previous draw Performed By: #### 0 0121, 76970, 27614 #### [facility] [address] [place] [address], [facility] Hematocrit Volume Fraction (Bld) 39.5 % Normal 36.0-45.0 [facility] Comment on above: Order Comment: No: D o not add to previous draw Performed By: #### 0 0121, 60158, 43659 #### [facility] [address] [place] [address], [facility] Hemoglobin mass conc (Bld) 13.4 g/dL Normal 12.0-15.0 [facility] Comment on above: Order Comment: No: D o not add to previous draw Performed By: #### 0 0121, 80213, 99323 #### [facility] [address] [place] [address], [facility] IMMATURE GRANS 0.7 % Normal 0.0-1.0 [facility] Comment on above: Order Comment: No: D o not add to previous draw Performed By: #### 0 0121, 49918, 90117 #### [facility] [address] [place] [address], [facility] Lymphocytes #/vol (Bld) 2.1 10*3/uL Normal 1.2-4.0 [facility] Comment on above: Order Comment: No: D o not add to previous draw Performed By: #### 0 0121, 41457, 55618 #### [facility] [address] [place] [address], [facility] Lymphocytes/100 WBC (Bld) 17.7 % Low 20.0-45.0 [facility] Comment on above: Order Comment: No: D o not add to previous draw Performed By: #### 0 0121, 79490, 43931 #### [facility] [address] [place] [address], [facility] MCH Entitic mass (RBC) 29.7 pg Normal 27.0-33.0 [facility] Comment on above: Order Comment: No: D o not add to previous draw Performed By: #### 0 0121, 33823, 78875 #### [facility] [address] MCHC mass conc (RBC) 33.9 g/dL Normal 32.0-35.0 [facility] Comment on above: Order Comment: No: D o not add to previous draw Performed By: #### 0 0121, 90914, 62758 #### [facility] [address] MCV Entitic volume (RBC) 87.6 fL Normal 82.0-98.0 [facility] Comment on above: Order Comment: No: D o not add to previous draw Performed By: #### 0 0121, 22790, 21830 #### [facility] [address] Monocytes #/vol (Bld) 0.9 10*3/uL Normal 0.1-1.0 [facility] Comment on above: Order Comment: No: D o not add to previous draw Performed By: #### 0 0121, 76918, 05912 #### [facility] [address] [facility] MONOS 7.3 % Normal 5.0-12.0 [facility] Comment on above: Order Comment: No: D o not add to previous draw Performed By: #### 0 0121, 12412, 10907 #### [facility] [address] [place] [address], [facility] Neutrophils/100 WBC (Bld) 72.1 % High 40.0-72.0 [facility] Comment on above: Order Comment: No: D o not add to previous draw Performed By: #### 0 0121, 39640, 65082 #### [facility] [address] [place] [address], [facility] Nucleated RBC/100 WBC Ratio (Bld) 0 % Normal 0-0 [facility] Comment on above: Order Comment: No: D o not add to previous draw Performed By: #### 0 0121, 04897, 86984 #### [facility] [address] [place] [address], [facility] PLAT CNT 233 10*3/uL Normal 150-400 [facility] Comment on above: Order Comment: No: D o not add to previous draw Performed By: #### 0 0121, 93011, 11976 #### [facility] [address] [place] [address], [facility] RBC #/vol (Bld) 4.51 10*6/uL Normal 3.80-5.00 [facility] Comment on above: Order Comment: No: D o not add to previous draw Performed By: #### 0 0121, 01221, 41019 #### [facility] [address] [place] [address], [facility] WBC #/vol (Bld) 11.74 10*3/uL High 4.00-10.60 [facility] Comment on above: Order Comment: No: D o not add to previous draw Performed By: #### 0 0121, 38422, 17962 #### [facility] [address] [place] [address], [facility] MAGNESIUM BLOODon 12-15-2018 Magnesium mass conc 1.8 mg/dL Low 1.9-2.7 [facility] Comment on above: Order Comment: No: D o not add to previous draw Performed By: #### 0 0121, 97926, 26895 #### [facility] [address] [place] [address], [facility] POC GLUCOSE LABon 12-15-2018 Glucose mass conc 208 mg/dL High 70-100 [facility] Comment on above: Performed By: #### 0 0121, 33848, 94048 #### [facility] [address] [place] [id number], [facility] Glucose mass conc 156 mg/dL High 70-100 [facility] Comment on above: Performed By: #### 0 0121, 07534, 56615 #### [facility] [address] [place] [address], [facility] Glucose mass conc 218 mg/dL High 70-100 [facility] Comment on above: Performed By: #### 0 0121, 54044, 62889 #### [facility] [address] [place] [address], [facility] Glucose mass conc 178 mg/dL High 70-100 [facility] Comment on above: Performed By: #### 0 0121, 03849, 64118 #### [facility] [address] [place] [id number], [facility] BASIC METABOLIC PANELon 02-0 Calcium mass conc 8.3 mg/dL Low 8.6-10.3 [facility] Comment on above: Order Comment: No: D o not add to previous draw Performed By: #### 0 0121, 08236, 07996 #### [facility] [address] [place] [address], [facility] Chloride molar conc 106 mmol/L Normal 98-107 [facility] Comment on above: Order Comment: No: D o not add to previous draw Performed By: #### 0 0121, 41546, 69989 #### [facility] [address] [place] [address], [place] CO2 molar conc 24 mmol/L Normal 21-31 [facility] Comment on above: Order Comment: No: D o not add to previous draw Performed By: #### 0 0121, 78845, 90768 #### [facility] [address] [place] [address], [facility] Creatinine mass conc 0.51 mg/dL Low 0.60-1.20 [facility] Comment on above: Order Comment: No: D o not add to previous draw Performed By: #### 0 0121, 68236, 33978 #### [facility] [address] [place] [address], [place] GFR/1.73 sq M predicted among blacks MDRD vol rate/area (S/P/Bld) mL/min/{1.73_m2} Normal >60 [facility] Comment on above: Order Comment: No: D o not add to previous draw Result Comment: Calc ulation may not be valid for patients over 70 years Performed By: #### 0 0121, 36132, 26741 #### [facility] [address] [place] [address], [place] GFR/1.73 sq M predicted among non-blacks MDRD vol rate/area (S/P/Bld) mL/min/{1.73_m2} Normal >60 [facility] Comment on above: Order Comment: No: D o not add to previous draw Result Comment: Calc ulation may not be valid for patients over 70 years Performed By: #### 0 0121, 71972, 77998 #### [facility] [address] [place] [address], [place] Glucose mass conc 176 mg/dL High 70-100 [facility] Comment on above: Order Comment: No: D o not add to previous draw Performed By: #### 0 0121, 50026, 38859 #### [facility] [address] [place] [address], [place] Potassium molar conc 3.6 mmol/L Normal 3.5-5.1 [facility] Comment on above: Order Comment: No: D o not add to previous draw Performed By: #### 0 0121, 40797, 85618 #### [facility] [address] [place] [address], [place] Sodium molar conc 137 mmol/L Normal 136-145 [facility] Comment on above: Order Comment: No: D o not add to previous draw Performed By: #### 0 0121, 77097, 03172 #### [facility] [address] Urea nitrogen mass conc 11 mg/dL Normal 7-25 [facility] Comment on above: Order Comment: No: D o not add to previous draw Performed By: #### 0 0121, 49258, 47173 #### [facility] [address] CBC W/DIFFon 12-14-2018 ABS BASOPHILS 0.1 10*3/uL Normal 0.0-0.2 [facility] Comment on above: Order Comment: No: D o not add to previous draw Performed By: #### 0 0121, 39877, 42297 #### [facility] [address] ABS IMM GRANS 0.1 10*3/uL Normal 0.0-0.2 [facility] Comment on above: Order Comment: No: D o not add to previous draw Performed By: #### 0 0121, 64169, 65088 #### [facility] [address] ABS NEUTROPHILS 7.6 10*3/uL Normal 1.6-7.6 [facility] Comment on above: Order Comment: No: D o not add to previous draw Performed By: #### 0 0121, 86849, 48197 #### [facility] [address] Basophils #/vol (Bld) 0.4 % Normal 0.0-1.0 [facility] Comment on above: Order Comment: No: D o not add to previous draw Performed By: #### 0 0121, 83960, 29915 #### [facility] [address] [facility]. [address] Eosinophils #/vol (Bld) 0.1 10*3/uL Normal 0.0-0.5 [facility] Comment on above: Order Comment: No: D o not add to previous draw Performed By: #### 0 0121, 47199, 92831 #### [facility] [address] [place] [address], [facility] Eosinophils/100 WBC (Bld) 0.6 % Normal 0.0-6.0 [facility] Comment on above: Order Comment: No: D o not add to previous draw Performed By: #### 0 0121, 04962, 32257 #### [facility] [address] Erythrocyte distribution width Ratio (RBC) 12.7 % Normal 11.5-15.0 [facility] Comment on above: Order Comment: No: D o not add to previous draw Performed By: #### 0 0121, 89815, 98452 #### [facility] [address] Hematocrit Volume Fraction (Bld) 41.5 % Normal 36.0-45.0 [facility] Comment on above: Order Comment: No: D o not add to previous draw Performed By: #### 0 0121, 13671, 17446 #### [facility] [address] [facility] Hemoglobin mass conc (Bld) 14.2 g/dL Normal 12.0-15.0 [facility] Comment on above: Order Comment: No: D o not add to previous draw Performed By: #### 0 0121, 82554, 47900 #### [facility] [address] [facility]. [address] IMMATURE GRANS 0.5 % Normal 0.0-1.0 [facility] Comment on above: Order Comment: No: D o not add to previous draw Performed By: #### 0 0121, 19383, 50290 #### [facility] [address] [place] [address], [facility] Lymphocytes #/vol (Bld) 2.4 10*3/uL Normal 1.2-4.0 [facility] Comment on above: Order Comment: No: D o not add to previous draw Performed By: #### 0 0121, 51318, 72095 #### [facility] [address] [facility]. [address] Lymphocytes/100 WBC (Bld) 21.5 % Normal 20.0-45.0 [facility] Comment on above: Order Comment: No: D o not add to previous draw Performed By: #### 0 0121, 45346, 40903 #### [facility] [address] [facility] [facility] Entitic mass (RBC) 29.6 pg Normal 27.0-33.0 [facility] Comment on above: Order Comment: No: D o not add to previous draw Performed By: #### 0 0121, 91296, 49387 #### [facility] [address] MCHC mass conc (RBC) 34.2 g/dL Normal 32.0-35.0 [facility] Comment on above: Order Comment: No: D o not add to previous draw Performed By: #### 0 0121, 20660, 04469 #### [facility] [facility] [address] [facility]. [address] MCV Entitic volume (RBC) 86.6 fL Normal 82.0-98.0 [facility] Comment on above: Order Comment: No: D o not add to previous draw Performed By: #### 0 0121, 27238, 13240 #### [facility] [address] [facility]. [address] Monocytes #/vol (Bld) 1.1 10*3/uL High 0.1-1.0 [facility] Comment on above: Order Comment: No: D o not add to previous draw Performed By: #### 0 0121, 27052, 08817 #### [facility] [address] [place] [address], [facility] MONOS 9.4 % Normal 5.0-12.0 [facility] Comment on above: Order Comment: No: D o not add to previous draw Performed By: #### 0 0121, 42570, 93413 #### [facility] [address] [place] [id number], [facility] Neutrophils/100 WBC (Bld) 67.6 % Normal 40.0-72.0 [facility] Comment on above: Order Comment: No: D o not add to previous draw Performed By: #### 0 0121, 78852, 48890 #### [facility] [address] [place] [address], [facility] Nucleated RBC/100 WBC Ratio (Bld) 0 % Normal 0-0 [facility] Comment on above: Order Comment: No: D o not add to previous draw Performed By: #### 0 0121, 00930, 06591 #### [facility] [address] [place] [address], [place] PLAT CNT 231 10*3/uL Normal 150-400 [facility] Comment on above: Order Comment: No: D o not add to previous draw Performed By: #### 0 0121, 86464, 34290 #### [facility] [address] [place] [id number], [facility] RBC #/vol (Bld) 4.79 10*6/uL Normal 3.80-5.00 [facility] Comment on above: Order Comment: No: D o not add to previous draw Performed By: #### 0 0121, 76686, 12723 #### [facility] [address] [place] [address], [place] WBC #/vol (Bld) 11.22 10*3/uL High 4.00-10.60 [facility] Comment on above: Order Comment: No: D o not add to previous draw Performed By: #### 0 0121, 24659, 79291 #### [facility] [address] EEG Reporton 12-14-2018 EEG Report Name: Heidi Palmer [facility] MR#: [id number] Age: 78 Physician: Date: 12/13/2018 Lab#: [id number] Date of : 1940 Patient Type: I NEURODIAGNOSTIC SERVICES REPORT [address] [place], [place] [address] Board of the [place] [employer] Accredited Laboratory REFERRING PHYSICIAN: Dr. Anne. HISTORY: This is a 78-year-old with confusional episode, suspected to be a stroke. PROCEDURE: This is a standard digital EEG performed in the 10-20 International System. Recording was reviewed with multiple reformatted montages. TECHNICAL DESCRIPTION: There is no well-defined posterior dominant rhythm noted. The background activity is composed of 30-50 microvolts rhythmical activity intermixed with frontal central beta range activity is noted. During the recording, semirhythmical lower theta and polymorphic delta range frequencies are noted over the central temporal region. During the recording, there is mild attenuation of background activity, but no clear state related changes noted. No epileptiform activity in the form of spike or sharp wave seen. Hyperventilation is deferred due to the patient's clinical state. Photic stimulation elicits a poorly sustained driving response. CLINICAL INTERPRETATION: This EEG is abnormal with presence of moderate generalized background slowing suggestive of bihemispheric dysfunction, may be seen in toxic or metabolic encephalopathies or primary neurological disorders. Electronically Signed by: Anita Rdz M.D. 12/22/2018 09:44 A Anita Rdz M.D. Date Dict: 12/13/2018/05:59 P/Anita Rdz M.D. Date Trans: 12/14/2018 04:23 A/debra [id number] Normal [facility] MAGNESIUM BLOODon 12-14-2018 Magnesium mass conc 2.0 mg/dL Normal 1.9-2.7 [facility] Comment on above: Order Comment: No: D o not add to previous draw Performed By: #### 0 4941, 58553, 49196 #### [facility] [address] [place] [address], [facility] POC GLUCOSE LABon 12-14-2018 Glucose mass conc 166 mg/dL High 70-100 [facility] Comment on above: Performed By: #### 0 0121, 45892, 53152 #### [facility] [address] [place] [address], [facility] Glucose mass conc 225 mg/dL High 70-100 [facility] Comment on above: Performed By: #### 0 0121, 63127, 74173 #### [facility] [address] [place] [address], [facility] Glucose mass conc 206 mg/dL High 70-100 [facility] Comment on above: Performed By: #### 0 0121, 29173, 05802 #### [facility] [address] [place] [address], [facility] Glucose mass conc 156 mg/dL High 70-100 [facility] Comment on above: Performed By: #### 0 0121, 43230, 21302 #### [facility] [address] [place] [address], [facility] URIC ACID URon 12-14-2018 Urate mass conc 48 mg/dL Normal [facility] Comment on above: Order Comment: No: D o not add to previous draw Result Comment: Ther e are no established reference values for random urine specimens Performed By: #### 0 0121, 28089, 82104 #### [facility] [address] [place] [address], [facility] *RAPID FLU AANDB BY BRODIE Murillo 12-13-2018 *RAPID FLU AANDB BY MOLECULAR Clinical Report: (D) Specimen: NASAL SWAB Collected: 12/13/2018 01:15 Status: Final Last Updated: 12/13/2018 01:59 FLUA RNA (Final) Negative FLUB RNA (Final) Negative Normal [facility] Comment on above: Performed By: #### 3 1018 #### [facility] [address] *URINE CULTUREon 12-13-2018 Bacteria identified Cx Nom (U) Clinical Report: (D) Specimen: URINE Collected: 12/13/2018 00:25 Status: Final Last Updated: 12/15/2018 08:06 CULT RES (Final) <10,000 Cfu/Ml No Significant Growth Normal [facility] Comment on above: Performed By: #### 0 0121, 94968, 12836 #### [facility] [address] AMMONIA BLOODon 12-13-2018 Ammonia mass conc (P) 35 umol/L Normal 16-53 [facility] Comment on above: Performed By: #### 2 1408 #### [facility] [address] BASIC METABOLIC PANELon Calcium mass conc 8.6 mg/dL Normal 8.6-10.3 [facility] Comment on above: Order Comment: No: D o not add to previous draw Performed By: #### 2 1408 #### [facility] [address] [place] [address], [facility] Chloride molar conc 103 mmol/L Normal 98-107 [facility] Comment on above: Order Comment: No: D o not add to previous draw Performed By: #### 2 1408 #### [facility] [address] [place] [address], [facility] CO2 molar conc 21 mmol/L Normal 21-31 [facility] Comment on above: Order Comment: No: D o not add to previous draw Performed By: #### 2 1408 #### [facility] [address] [place] [address], [facility] Creatinine mass conc 0.47 mg/dL Low 0.60-1.20 [facility] Comment on above: Order Comment: No: D o not add to previous draw Performed By: #### 2 1408 #### [facility] [address] [place] [address], [place] GFR/1.73 sq M predicted among blacks MDRD vol rate/area (S/P/Bld) mL/min/{1.73_m2} Normal >60 [facility] Comment on above: Order Comment: No: D o not add to previous draw Result Comment: Calc ulation may not be valid for patients over 70 years Performed By: #### 2 1408 #### [facility] [address] [place] [address], [place] GFR/1.73 sq M predicted among non-blacks MDRD vol rate/area (S/P/Bld) mL/min/{1.73_m2} Normal >60 [facility] Comment on above: Order Comment: No: D o not add to previous draw Result Comment: Calc ulation may not be valid for patients over 70 years Performed By: #### 2 1408 #### [facility] [address] [place] [address], [place] Glucose mass conc 186 mg/dL High 70-100 [facility] Comment on above: Order Comment: No: D o not add to previous draw Performed By: #### 2 1408 #### [facility] [address] [place] [address], [place] Potassium molar conc 3.5 mmol/L Normal 3.5-5.1 [facility] Comment on above: Order Comment: No: D o not add to previous draw Performed By: #### 2 1408 #### [facility] [address] [place] [address], [place] Sodium molar conc 135 mmol/L Low 136-145 [facility] Comment on above: Order Comment: No: D o not add to previous draw Performed By: #### 2 1408 #### [facility] [address] [place] [address], [place] Urea nitrogen mass conc 10 mg/dL Normal 7-25 [facility] Comment on above: Order Comment: No: D o not add to previous draw Performed By: #### 2 1408 #### [facility] [address] C REACTIVE PROTEINon 019 CRP mass conc 5.9 mg/L Normal 0.0-7.0 [facility] Comment on above: Order Comment: Yes: Add to Previous draw if able Performed By: #### 0 0121, 55108, 68779 #### [facility] [address] [place] [address], [facility] CBC W/DIFFon 12-13-2018 ABS BASOPHILS 0.0 10*3/uL Normal 0.0-0.2 [facility] Comment on above: Order Comment: No: D o not add to previous draw Performed By: #### 2 1408 #### [facility] [address] ABS NEUTROPHILS 13.4 10*3/uL High 1.6-7.6 [facility] Comment on above: Order Comment: No: D o not add to previous draw Performed By: #### 2 1408 #### [facility] [address] [place] [address], [facility] Basophils #/vol (Bld) 0.0 % Normal 0.0-1.0 [facility] Comment on above: Order Comment: No: D o not add to previous draw Performed By: #### 2 1408 #### [facility] [address] [place] [address], [facility] Eosinophils #/vol (Bld) 0.0 10*3/uL Normal 0.0-0.5 [facility] Comment on above: Order Comment: No: D o not add to previous draw Performed By: #### 2 1408 #### [facility] [address] [place] [address], [facility] Eosinophils/100 WBC (Bld) 0.0 % Normal 0.0-6.0 [facility] Comment on above: Order Comment: No: D o not add to previous draw Performed By: #### 2 1408 #### [facility] [address] Erythrocyte distribution width Ratio (RBC) 12.7 % Normal 11.5-15.0 [facility] Comment on above: Order Comment: No: D o not add to previous draw Performed By: #### 2 1408 #### [facility] [address] Hematocrit Volume Fraction (Bld) 43.2 % Normal 36.0-45.0 [facility] Comment on above: Order Comment: No: D o not add to previous draw Performed By: #### 2 1408 #### [facility] [address] Hemoglobin mass conc (Bld) 14.6 g/dL Normal 12.0-15.0 [facility] Comment on above: Order Comment: No: D o not add to previous draw Performed By: #### 2 1408 #### [facility] [address] [facility]. [address] Lymphocytes #/vol (Bld) 0.9 10*3/uL Low 1.2-4.0 [facility] Comment on above: Order Comment: No: D o not add to previous draw Performed By: #### 2 1408 #### [facility] [address] [place] [address], [facility] Lymphocytes/100 WBC (Bld) 5.5 % Low 20.0-45.0 [facility] Comment on above: Order Comment: No: D o not add to previous draw Performed By: #### 2 1408 #### [facility] [address] [place] [address], [facility] MCH Entitic mass (RBC) 29.1 pg Normal 27.0-33.0 [facility] Comment on above: Order Comment: No: D o not add to previous draw Performed By: #### 2 1408 #### [facility] [address] [facility] MCHC mass conc (RBC) 33.8 g/dL Normal 32.0-35.0 [facility] Comment on above: Order Comment: No: D o not add to previous draw Performed By: #### 2 1408 #### [facility] [address] [facility] MCV Entitic volume (RBC) 86.2 fL Normal 82.0-98.0 [facility] Comment on above: Order Comment: No: D o not add to previous draw Performed By: #### 2 1408 #### [facility] [address] [facility] Monocytes #/vol (Bld) 1.3 10*3/uL High 0.1-1.0 [facility] Comment on above: Order Comment: No: D o not add to previous draw Performed By: #### 2 1408 #### [facility] [address] MONOS 8.3 % Normal 5.0-12.0 [facility] Comment on above: Order Comment: No: D o not add to previous draw Performed By: #### 2 1408 #### [facility] [address] [facility] [place] [address], [facility] Neutrophils/100 WBC (Bld) 86.2 % High 40.0-72.0 [facility] Comment on above: Order Comment: No: D o not add to previous draw Performed By: #### 2 1408 #### [facility] [address] [facility]. [address] Nucleated RBC/100 WBC Ratio (Bld) 0 % Normal 0-0 [facility] Comment on above: Order Comment: No: D o not add to previous draw Performed By: #### 2 1408 #### [facility] [address] [facility] [address], [facility] PLAT CNT 252 10*3/uL Normal 150-400 [facility] Comment on above: Order Comment: No: D o not add to previous draw Performed By: #### 2 1408 #### [facility] [address] [facility] [place] [address], [facility] RBC #/vol (Bld) 5.01 10*6/uL High 3.80-5.00 [facility] Comment on above: Order Comment: No: D o not add to previous draw Performed By: #### 2 1408 #### [facility] [address] [facility] [place] [address], [facility] WBC #/vol (Bld) 15.53 10*3/uL High 4.00-10.60 [facility] Comment on above: Order Comment: No: D o not add to previous draw Performed By: #### 2 1408 #### [facility] [address] [facility] [place] [address], [facility] ABS BASOPHILS 0.0 10*3/uL Normal 0.0-0.2 [facility] Comment on above: Performed By: #### 5 0103 #### [facility] [address] [facility] [place] [address], [facility] ABS IMM GRANS 0.1 10*3/uL Normal 0.0-0.2 [facility] Comment on above: Performed By: #### 5 0103 #### [facility] [address] [place] [address], [facility] ABS NEUTROPHILS 17.8 10*3/uL High 1.6-7.6 [facility] Comment on above: Performed By: #### 5 0103 #### [facility] [address] [facility] [address], [facility] Basophils #/vol (Bld) 0.2 % Normal 0.0-1.0 [facility] Comment on above: Performed By: #### 5 0103 #### [facility] [address] [facility] Eosinophils #/vol (Bld) 0.0 10*3/uL Normal 0.0-0.5 [facility] Comment on above: Performed By: #### 5 0103 #### [facility] [address] Eosinophils/100 WBC (Bld) 0.0 % Normal 0.0-6.0 [facility] Comment on above: Performed By: #### 5 3 #### [facility] [address] Erythrocyte distribution width Ratio (RBC) 12.3 % Normal 11.5-15.0 [facility] Comment on above: Performed By: #### 3 #### [facility] [address] Hematocrit Volume Fraction (Bld) 44.2 % Normal 36.0-45.0 [facility] Comment on above: Performed By: #### 5 3 #### [facility] [address] Hemoglobin mass conc (Bld) 15.4 g/dL High 12.0-15.0 [facility] Comment on above: Performed By: #### 5 3 #### [facility] [address] IMMATURE GRANS 0.6 % Normal 0.0-1.0 [facility] Comment on above: Performed By: #### 5 3 #### [facility] [address] Lymphocytes #/vol (Bld) 1.8 10*3/uL Normal 1.2-4.0 [facility] Comment on above: Performed By: #### 3 #### [facility] [address] [facility] [address], [facility] Lymphocytes/100 WBC (Bld) 8.9 % Low 20.0-45.0 [facility] Comment on above: Performed By: #### 5 3 #### [facility] [address] [place] [address], [facility] MCH Entitic mass (RBC) 29.4 pg Normal 27.0-33.0 [facility] Comment on above: Performed By: #### 3 #### [facility] [address] [facility] MCHC mass conc (RBC) 34.8 g/dL Normal 32.0-35.0 [facility] Comment on above: Performed By: #### 102 #### [facility] [address] [facility]. [address] MCV Entitic volume (RBC) 84.4 fL Normal 82.0-98.0 [facility] Comment on above: Performed By: #### 5 3 #### [facility] [address] [facility]. [address] Monocytes #/vol (Bld) 0.9 10*3/uL Normal 0.1-1.0 [facility] Comment on above: Performed By: #### 5 3 #### [facility] [address] [facility] [place] [address], [facility] MONOS 4.1 % Low 5.0-12.0 [facility] Comment on above: Performed By: #### 5 3 #### [facility] [address] [facility] [place] [address], [facility] Neutrophils/100 WBC (Bld) 86.2 % High 40.0-72.0 [facility] Comment on above: Performed By: #### 3 #### [facility] [address] Nucleated RBC/100 WBC Ratio (Bld) 0 % Normal 0-0 [facility] Comment on above: Performed By: #### 5 0103 #### [facility] [address] PLAT CNT 265 10*3/uL Normal 150-400 [facility] Comment on above: Performed By: #### 5 0103 #### [facility] [address] RBC #/vol (Bld) 5.24 10*6/uL High 3.80-5.00 [facility] Comment on above: Performed By: #### 5 0103 #### [facility] [address] WBC #/vol (Bld) 20.63 10*3/uL High 4.00-10.60 [facility] Comment on above: Performed By: #### 5 0103 #### [facility] [address] CHEST AND LATERALon 12-13-19 19 CHEST AND LATERAL [facility] Department of Radiology [address] [place] [address] == Patient Name: HEIDI PALMER : 1940 Sex: F Age: Race: White Pt. Location: [facility] Patient Status: I Ordered Date: 12/12/2018 11:50:00 PM Completed Date: 12/13/2018 12:45 AM Requesting Provider: MICHAEL GASTON Attending Provider: MICHAEL GASTON Report Copy To: Signs & Symptoms: Chest Pain History: Patient history not available Comments: R/O Pneumonia Exam: CHEST AND LATERAL == CHEST AND LATERAL 12/13/2018 12:45 AM EST SIGNS AND SYMPTOMS: Chest Pain TECHNOLOGIST COMMENTS: altered mental status QUESTION FOR THE RADIOLOGIST: R/O Pneumonia PROTOCOL: AP(PA) and Lateral views were obtained. COMPARISON: None FINDINGS: Linear left basal opacity, likely atelectasis or scarring. No pleural effusion. No pneumothorax. Cardiomediastinal silhouette within normal limits. A possible left coronary stent in place. Degenerative changes of the thoracic spine. IMPRESSION: No radiographic evidence of acute cardiopulmonary process. Approved by:Dilan Vega on 12/13/2018 9:04 AM EST. I, Sanju Peñaloza, have reviewed the images and report and concur with these findings. Electronically signed by:Sanju Peñaloza. Transcribed by: [email or web address], User Resident: DILAN VEGA Electronically Signed by: SANJU PEÑALOZA @ 12/13/2018 09:56 AM I personally read this/these film(s) with this resident Normal [facility] Comment on above: Order Comment: R/O P neumonia COMP METABOLIC PANELon 12-13 Albumin mass conc 3.5 g/dL Normal 3.5-5.7 [facility] Comment on above: Performed By: #### 0 0121, 04740, 27019 #### [facility] [address] [place] [address], [facility] ALKALINE PHOSPH 59 IU/L Normal 34-104 [facility] Comment on above: Performed By: #### 0 0121, 01193, 27023 #### [facility] [address] [place] [address], [place] ALT enzyme act/vol 8 U/L Normal 7-52 [facility] Comment on above: Performed By: #### 0 0121, 10703, 53907 #### [facility] [address] [place] [address], [facility] AST enzyme act/vol 15 U/L Normal 13-39 [facility] Comment on above: Performed By: #### 0 0121, 61445, 01685 #### [facility] [address] [place] [address], [facility] Bilirubin mass conc 0.8 mg/dL Normal 0.3-1.0 [facility] Comment on above: Performed By: #### 0 0121, 34777, 72541 #### [facility] [address] [place] [address], [facility] Calcium mass conc 8.5 mg/dL Low 8.6-10.3 [facility] Comment on above: Performed By: #### 0 0121, 00815, 50080 #### [facility] [address] [facility] [place] [id number], [facility] Chloride molar conc 100 mmol/L Normal 98-107 [facility] Comment on above: Performed By: #### 0 0121, 53699, 89758 #### [facility] [address] [place] [address], [facility] CO2 molar conc 21 mmol/L Normal 21-31 [facility] Comment on above: Performed By: #### 0 0121, 88828, 24241 #### [facility] [address] [place] [address], [facility] Creatinine mass conc 0.50 mg/dL Low 0.60-1.20 [facility] Comment on above: Performed By: #### 0 0121, 84814, 87211 #### [facility] [address] [place] [address], [facility] GFR/1.73 sq M predicted among blacks MDRD vol rate/area (S/P/Bld) mL/min/{1.73_m2} Normal >60 [facility] Comment on above: Result Comment: Calc ulation may not be valid for patients over 70 years Performed By: #### 0 0121, 35047, 80606 #### [facility] [address] [place] [address], [facility] GFR/1.73 sq M predicted among non-blacks MDRD vol rate/area (S/P/Bld) mL/min/{1.73_m2} Normal >60 [facility] Comment on above: Result Comment: Calc ulation may not be valid for patients over 70 years Performed By: #### 0 0121, 31399, 39855 #### [facility] [address] [place] [address], [facility] Glucose mass conc 217 mg/dL High 70-100 [facility] Comment on above: Performed By: #### 0 0121, 59932, 51351 #### [facility] [address] [place] [address], [facility] Potassium molar conc 3.5 mmol/L Normal 3.5-5.1 [facility] Comment on above: Performed By: #### 0 0121, 20152, 96336 #### [facility] [address] [facility] [place] [address], [facility] Protein mass conc 5.9 g/dL Low 6.0-8.3 [facility] Comment on above: Performed By: #### 0 0121, 93150, 07178 #### [facility] [address] [place] [address], [facility] Sodium molar conc 130 mmol/L Low 136-145 [facility] Comment on above: Performed By: #### 0 0121, 02545, 31667 #### [facility] [address] [place] [address], [facility] Urea nitrogen mass conc 12 mg/dL Normal 7-25 T he [facility] Comment on above: Performed By: #### 0 0121, [id number], [id number] #### [facility] [address] [facility] [place] [address], [facility] CREATININE URINE RANDOMon Creatinine mass conc 59.0 mg/dL Normal [facility] Comment on above: Order Comment: Yes: Add to Previous draw if able Result Comment: Ther e are no established reference values for random urine specimens Performed By: #### 2 1408 #### [facility] [address] [place] [address], [facility] CT BRAIN PERFUSIONon 019 CT BRAIN PERFUSION [facility] Department of Radiology [address] [place] [address] [phone] == Patient Name: HEIDI PALMER : 1940 Sex: F Age: Race: White Pt. Location: [facility] Patient Status: I Ordered Date: 12/12/2018 11:25:00 PM Completed Date: 12/12/2018 11:55 PM Requesting Provider: MICHAEL GASTON Attending Provider: MICHAEL GASTON Report Copy To: Signs & Symptoms: Other History: Patient history not available Comments: R/O CVA Exam: CT BRAIN PERFUSION == CT BRAIN PERFUSION 12/12/2018 11:55 PM EST SIGN AND SYMPTOMS: Other TECHNOLOGIST COMMENTS: Pt was at orthopedist office today getting back injection for chronic back and left leg pain when she became more confused. Went to outside ED who believed she had some left sided neuro deficits, confusion and aphasia. Best scan possible at this time. QUESTION FOR RADIOLOGIS: R/O CVA PROTOCOL: Axial CT angiography images were obtained with IV contrast. CONTRAST: Contrast: OMNIPAQUE 350 (LOCM), 100 milliliter, Intravenous TECHNIQUE: Multidetector CT axial slices of the brain were obtained without IV contrast. Sagittal, coronal, and 3-D reconstructions were performed and viewed on a separate workstation. Dynamic acquisition CT perfusion images were obtained in 18 seperate phases during and after administration of 50 mL Omnipaque 350 intravenously. Arterial and venous time activity curves were generated with regions of interest drawn over the arterial and venous circulations. Color maps for mean transit time, cerebral blood flow, cerebral perfusion, and time to peak perfusion were generated in the axial plane. Dynamic 3-D CT angiography images were reconstructed in sagittal coronal and axial plane and viewed on a separate workstation. Appropriate CT dose lowering techniques were utilized. COMPARISON: CTA head and neck to 419. FINDINGS: Image quality severely limited by patient motion. Arterial input function EUNICE selected: CRUZITO. Venous outflow function EUNICE: Torcula. Parametric maps: CTP characteristics {for area of interest}: + CBF {cerebral blood flow}: Symmetric. + MTT {mean transit time}: Symmetric. + CBV {cerebral blood volume}: Symmetric. Vascular territory involved: None. Tissue involved: None. IMPRESSION: Image quality severely limited by patient motion however the perfusion indices appear symmetric. If clinical concern for cerebral ischemia remains, MRI brain with diffusion sequence is recommended. Approved by:Eli Gonzales on 12/13/2018 12:09 AM EST. I, Phillip Clements, have reviewed the images and report and concur with these findings. Electronically signed by:Phillip Clements. Transcribed by: [email or web address], User Resident: ELI GONZALES Electronically Signed by: PHILLIP CLEMENTS @ 12/13/2018 08:45 AM I personally read this/these film(s) with this resident Normal [facility] Comment on above: Order Comment: R/O C VA HIP LEFT 1 OR 2 VWS WITH PEL VISon 12-13-2018 HIP LEFT 1 OR 2 VWS WITH PELVIS [facility] Department of Radiology [address] [place] [phone] == Patient Name: HEIDI PALMER : 1940 Sex: F Age: Race: White Pt. Location: [id number] Patient Status: I Ordered Date: 12/13/2018 10:30:00 AM Completed Date: 12/13/2018 01:12 PM Requesting Provider: PORFIRIO WINTERS Attending Provider: PRIYA BAGLEY Report Copy To: Signs & Symptoms: Pain ( specify Location) History: Patient history not available Comments: R/O FX Exam: HIP LEFT 1 OR 2 VWS WITH PELVIS == HIP LEFT 1 OR 2 VWS WITH PELVIS 12/13/2018 1:12 PM EST SIGNS AND SYMPTOMS: Pain ( specify Location) TECHNOLOGIST COMMENTS: Left hip pain QUESTION FOR THE RADIOLOGIST: R/O FX PROTOCOL: AP(PA) and Lateral views were obtained. COMPARISON: None FINDINGS: Soft tissues: Moderate distention of the bladder with contrast, no extravasation Bones: No definite fracture Osteoporosis Joints: Very minor hip arthritis and minor degenerative changes of the SI joints, moderate degenerative disc disease IMPRESSION: No acute bony abnormality Electronically signed by:Dai Meehan. Transcribed by: [email or web address], User Resident: Electronically Signed by: DAI MEEHAN @ 12/13/2018 02:16 PM Normal [facility] Comment on above: Order Comment: R/O F X History and Physicalon 12-13 History and Physical MR#: [id number] [facility] Pt. Name: Heidi Palmer Admitted: 12/13/2018 Date of : 1940 Attending Physician: Alex Anne MD Room #: [id number] Discharge Date: HISTORY AND PHYSICAL CHIEF COMPLAINT: Altered mental status. HISTORY OF PRESENT ILLNESS: This patient is a 78 years old with past medical history of coronary artery disease, hypertension, and diabetes, who was sent from [facility] due to possible stroke. Her son who is the primary historian said she is totally confused and disoriented. He took her to [place] due to altered mental status. The son stated that he saw her this morning and she was saying words inappropriately and she did not know who he is. Per the son, the patient has been complaining of lower back pain, sciatica pain. They saw the ortho surgeon today and he gave her a cortisone injection. After that, he took her to the emergency for further evaluation. The son stated that he saw his mother yesterday and she was totally normal with no complaint except for her left back pain. The patient is independent in her daily activity. The patient takes tramadol as needed. However, he does not think that she overtook her tramadol. In [place], they were concern about stroke; therefore, she was sent to [facility]. In our department, the patient is awake; however, she does not answer any questions. CTA of neck and brain were negative for anything acute. CT of the lumbar spine was negative. The patient was found to have a white blood count of 20.63. UA and chest x-ray were unremarkable at [place]; however, UA in our hospital was suggestive for UTI. Her labs are within normal limits, except for hyponatremia of 130. REVIEW OF SYSTEMS: Unable to obtain. PAST MEDICAL HISTORY: Hypertension, coronary artery disease, diabetes, hypothyroidism, partial thyroidectomy. SOCIAL HISTORY: No history of smoking, alcohol use, and illicit drug use. ALLERGIES: Cilostazol, metformin, penicillins. FAMILY HISTORY: Unknown. PHYSICAL EXAM: VITAL SIGNS: Temperature is 101.4, heart rate 111, blood pressure 102/72, saturation 95% on room air. GENERAL: Awake, opening her eyes, following simple commands, not answering questions. NECK: Supple, nontender. HEAD: Atraumatic, normocephalic. EOMI. PERRLA. CARDIOLOGY: Normal sinus rhythm. No murmur. RESPIRATORY: Lungs are clear to auscultation bilaterally. GI: Soft, nondistended, nontender. Left CVA tenderness. EXTREMITIES: No edema. NEUROLOGICAL: Unable to assess. MUSCULOSKELETAL: Tenderness on the left lower back. SKIN: Warm to touch. No rashes. ASSESSMENT: 1. Sepsis (fever, leukocytosis and tachycardia) likely due to complicated UTI/left pyelonephritis. 2. Metabolic encephalopathy due to sepsis. 3. Hyponatremia, likely hypovolemia. 4. Coronary artery disease, status post stent 5 years ago. 5. Hypertension. 6. Hvw-ljoaqxg-xbyjskaae diabetes. 7. Hypothyroidism. PLAN: We will order blood culture and influenza. We will treat empirically with Rocephin, pending final urine culture. We will start gentle hydration and repeat sodium level in the morning. We will resume her cardiac medications. We will recheck TSH and resume her levothyroxine. PT, OT, and social work placement. Electronically Signed by: Alex Anne MD 12/18/2018 08:41 A Alex Anne MD Date Dict: 12/13/2018/01:12 A/Aelx Anne MD Date Trans: 12/13/2018 01:34 A/debra [id number] Normal [facility] LACTATE BLOODon 12-13-2018 Lactate molar conc 0.8 mmol/L Normal 0.5-2.2 [facility] Comment on above: Order Comment: No: D o not add to previous draw Performed By: #### 1 0054 #### [facility] [address] [place] [address], [facility] MAGNESIUM BLOODon 12-13-2018 Magnesium mass conc 1.8 mg/dL Low 1.9-2.7 [facility] Comment on above: Order Comment: No: D o not add to previous draw Performed By: #### 2 1408 #### [facility] [address] [place] [address], [facility] OSMOLALITY BLOODon 9 Osmolality 288 mOsm/kg Normal 285-305 [facility] Comment on above: Performed By: #### 2 1408 #### [facility] [address] [place] [address], [facility] OSMOLALITY URINEon 9 Osmolality 641 mOsm/kg Normal 50-1400 [facility] Comment on above: Order Comment: Yes: Add to Previous draw if able Performed By: #### 2 1408 #### [facility] [address] [place] [address], [facility] POC GLUCOSE LABon 12-13-2018 Glucose mass conc 133 mg/dL High 70-100 [facility] Comment on above: Performed By: #### 0 0121, 11607, [id number] #### [facility] [address] [place] [address], [facility] Glucose mass conc 153 mg/dL High 70-100 [facility] Comment on above: Performed By: #### 0 0121, [id number], 03090 #### [facility] [address] [place] [address], [facility] Glucose mass conc 170 mg/dL High 70-100 [facility] Comment on above: Performed By: #### 2 1408 #### [facility] [address] PROCALCITONINon 12-13-2018 Protein mass conc 0.04 ng/mL Normal 0.00-0.10 [facility] Comment on above: Result Comment: Susp ected Lower Respiratory Tract Infection: 0.1-0.25ng/mL- Low likelihood for bacterial infection;Antibiotics discouraged.* >0.25ng/mL- Increased likelihood bacterial infection;Antibiotics encouraged. Suspected Sepsis: Strongly consider initiating antibiotics in all unstable patients. 0.1-0.5ng/mL- Low likelihood for sepsis; Antibiotics discouraged.* >0.5ng/mL- Increased likelihood sepsis; Antibiotics encouraged. >2.0ng/mL- High risk of sepsis/septic shock; Antibiotics strongly encouraged. *Recommend retesting PCT within 6-12hours if clinically indicated and initial PCT<0.5ng/mL Performed By: #### 0 0121, [id number], [id number] #### [facility] [address] SEDIMENTATION RATEon 019 SED RATE 0 mm/hr Normal 0-20 [facility] Comment on above: Performed By: #### 2 1408 #### [facility] [address] SODIUM URINE RANDOMon 2018 Sodium molar conc (U) 102 mmol/L Normal [facility] Comment on above: Order Comment: Yes: Add to Previous draw if able Result Comment: Ther e are no established reference values for random urine specimens Performed By: #### 2 1408 #### [facility] [address] [facility] TSH3 WITH REFLEXon 9 T4 free mass conc 1.46 ng/dL Normal 0.71-1.85 [facility] Comment on above: Performed By: #### 0 0121, 65568, [id number] #### [facility] [address] [facility] [place] [address], [facility] TSH 3RD GENERATION 0.49 uIU/mL Normal 0.34-5.60 [facility] Comment on above: Performed By: #### 0 0121, 08030, 53139 #### [facility] [address] [place] [address], [facility] URINALYSIS REFLEXon 12-13-19 19 AMORPHOUS MANY Abnormal NONE SEEN [facility] Comment on above: Order Comment: Crite ashley for reflexing a culture was met. Urine Culture and sensitivity will be performed. Performed By: #### 3 0965 #### [facility] [address] [place] [address], [facility] Appearance Nom (U) CLOUDY Abnormal CLEAR [facility] Comment on above: Order Comment: Crite ashley for reflexing a culture was met. Urine Culture and sensitivity will be performed. Performed By: #### 3 0965 #### [facility] [address] [place] [address], [facility] Bilirubin mass conc Negative Normal NEGATIVE [facility] Comment on above: Order Comment: Crite ashley for reflexing a culture was met. Urine Culture and sensitivity will be performed. Performed By: #### 3 0965 #### [facility] [address] [place] [address], [facility] BLOOD SMALL Abnormal NEGATIVE [facility] Comment on above: Order Comment: Crite ashley for reflexing a culture was met. Urine Culture and sensitivity will be performed. Performed By: #### 3 0965 #### [facility] [address] [place] [address], [facility] Color Nom (U) YELLOW Normal YELLOW [facility] Comment on above: Order Comment: Crite ashley for reflexing a culture was met. Urine Culture and sensitivity will be performed. Performed By: #### 3 0965 #### [facility] [address] [place] [address], [facility] EPIS OCC Normal FEW,OCC,NO NE SEEN [facility] Comment on above: Order Comment: Crite ashley for reflexing a culture was met. Urine Culture and sensitivity will be performed. Performed By: #### 3 0965 #### [facility] [address] [place] [address], [facility] Glucose mass conc >=500 Abnormal NEGATIVE [facility] Comment on above: Order Comment: Crite ashley for reflexing a culture was met. Urine Culture and sensitivity will be performed. Performed By: #### 3 0965 #### [facility] [address] [facility] [address], [facility] KETONE 20 mg/dL Abnormal NEGATIVE [facility] Comment on above: Order Comment: Crite ashley for reflexing a culture was met. Urine Culture and sensitivity will be performed. Performed By: #### 3 0965 #### [facility] [address] [facility] [place] [address], [facility] LEUK JAME LARGE Abnormal NEGATIVE [facility] Comment on above: Order Comment: Crite ashley for reflexing a culture was met. Urine Culture and sensitivity will be performed. Performed By: #### 3 0965 #### [facility] [address] [facility]. [address] Nitrite Ql (U) Negative Normal NEGATIVE [facility] Comment on above: Order Comment: Crite ashley for reflexing a culture was met. Urine Culture and sensitivity will be performed. Performed By: #### 3 0965 #### [facility] [address] [facility]. [address] pH (Bld) 6.0 Normal 5.0-8.0 [facility] Comment on above: Order Comment: Crite ashley for reflexing a culture was met. Urine Culture and sensitivity will be performed. Performed By: #### 3 0965 #### [facility] [address] [facility]. [address] Protein mass conc (U) Negative Normal NEGATIVE [facility] Comment on above: Order Comment: Crite ashley for reflexing a culture was met. Urine Culture and sensitivity will be performed. Performed By: #### 3 0965 #### [facility] [address] RBC #/vol (U) 11-20 Abnormal NONE SEEN [facility] Comment on above: Order Comment: Crite ashley for reflexing a culture was met. Urine Culture and sensitivity will be performed. Performed By: #### 3 0965 #### [address] SPEC GRAV 1.053 High 1.015-1.02 0 [facility] Comment on above: Order Comment: Crite ashley for reflexing a culture was met. Urine Culture and sensitivity will be performed. Performed By: #### 3 0965 #### [address] WBC UA 51-100 Abnormal NONE SEEN [facility] Comment on above: Order Comment: Crite ashley for reflexing a culture was met. Urine Culture and sensitivity will be performed. Performed By: #### 3 0965 #### [address] *BLOOD CULTUREon 12-12-2018 Bacteria identified Cx Nom (Bld) Clinical Report: (D) Specimen: BLOOD CULTURE Collected: 12/12/2018 20:45 Status: Final Last Updated: 12/18/2018 07:41 CULT RES (Final) No Growth Day 5 Normal [facility] Comment on above: Performed By: #### 3 0313 #### [address] 3D LUMBAR SPINE WO CONTRA STon 12-12-2018 CT 3D LUMBAR SPINE WO CONTRAST [facility] Department of Radiology [address] [place] [phone] == Patient Name: HEIDI PALMER : 1940 Sex: F Age: Race: White Pt. Location: [facility] Patient Status: I Ordered Date: 12/12/2018 9:00:00 PM Completed Date: 12/12/2018 09:35 PM Requesting Provider: MICHAEL GASTON Attending Provider: MICHAEL GASTON Report Copy To: Signs & Symptoms: Back Pain (specify level) History: Patient history not available Comments: R/O Fractures Exam: CT 3D LUMBAR SPINE WO CONTRAST == CT 3D LUMBAR SPINE WO CONTRAST 12/12/2018 9:35 PM EST TECHNOLOGIST COMMENTS: patient unable to communicate pain hx: sciatica QUESTION FOR RADIOLOGIST: R/O Fractures PROTOCOL: Axial CT images of the spine were obtained without IV contrast. TECHNIQUE: Multi detector CT axial slices of the lumbar spine are obtained from the T11 to the S4 vertebral body without IV contrast. Volumetric acquisition sagittal, coronal, and 3-D reconstructions were performed and reviewed on a separate workstation. Appropriate CT dose lowering techniques were utilized. COMPARISON: None FINDINGS: There is preservation of the vertebral body heights. Moderate to severe intervertebral disc space narrowing at L4-L5 and L5-S1 with anterior osteophytic changes and facet joint hypertrophy. No fractures or dislocations. Mild scoliosis of the lumbar spine. The paraspinous soft tissues are within normal limits. Visualized lung parenchyma is unremarkable. Extensive atherosclerotic calcifications of the abdominal aorta. Cholelithiasis. Contrast seen within the urinary tract system. IMPRESSION: * No acute fracture or dislocation. * Lower lumbar degenerative changes, prominent at L4-L5 and L5-S1. * Cholelithiasis. Approved by:Trice Doherty on 12/13/2018 8:43 AM EST. I, Phillip Clements, have reviewed the images and report and concur with these findings. Electronically signed by:Phillip Clements. Transcribed by: [email or web address], User Resident: TRICE DOHERTY Electronically Signed by: PHILLIP CLEMENTS @ 12/13/2018 01:24 PM I personally read this/these film(s) with this resident Normal [facility] Comment on above: Order Comment: R/O F racchapis CTA HEADon 12-12-2018 CTA HEAD [facility] Department of Radiology [address] [place] [phone] == Patient Name: HEIDI PALMER : 1940 Sex: F Age: Race: White Pt. Location: [facility] Patient Status: I Ordered Date: 12/12/2018 8:55:00 PM Completed Date: 12/12/2018 09:44 PM Requesting Provider: MICHAEL GASTON Attending Provider: MICHAEL GASTON Report Copy To: Signs & Symptoms: Stroke(CVA) History: Patient history not available Comments: R/O CVA Exam: CTA HEAD == CTA HEAD, CTA NECK 12/12/2018 9:44 PM EST SIGNS AND SYMPTOMS: Stroke(CVA) TECHNOLOGIST COMMENTS: difficulty speaking QUESTION FOR THE RADIOLOGIST: R/O CVA PROTOCOL: Axial CT angiography images were obtained with IV contrast. CONTRAST: Contrast: OMNIPAQUE 350 (LOCM), 100 milliliter, Intravenous TECHNIQUE: Multi-detector CT angiography axial slices of the head and neck were obtained before and during intravenous administration of IV contrast material. Sagittal, coronal, and 3-D reconstructions were performed and viewed on a separate workstation. Appropriate CT dose lowering techniques were utilized. COMPARISON: None FINDINGS: Noncontrast head CT: Motion artifact obscures visualization of skull base and posterior fossa. Opacification of the right maxillary and left sphenoid sinuses. Age-related cortical atrophy with periventricular chronic microvascular ischemic changes. There is no shift of the midline structures, acute intracranial bleeding, mass effects, or evidence of acute ischemia. The ventricular system is normal in size. The brainstem and the cerebellum are unremarkable. The visualized intraorbital contents, and the visualized soft tissue in the infratemporal spaces show no abnormality. The osseous structures in the skull base and the calvarium show no acute abnormality. CTA Head: Internal carotid arteries: Within normal limits. Anterior cerebral arteries: Within normal limits apart from small caliber of the right A1 segment, a normal variant. Normal anterior communicating artery. Middle cerebral arteries: Within normal limits. Posterior communicating arteries: Within normal limits. Vertebral arteries: Within normal limits. Basilar artery: Within normal limits. Posterior cerebral arteries: Within normal limits. Bilateral posterior small communicating arteries are visualized. No intracranial arterial stenosis, occlusion, or aneurysmal dilatation. CTA Neck: Mild atherosclerotic calcification at the aortic arch. Four-vessel branching pattern of the arch with the left vertebral artery originating from the arch. The subclavian arteries are normal in course and caliber. The right vertebral artery originates from the right subclavian artery and is normal in course and caliber. The left vertebral artery originates from the aortic arch and is within normal limits. The common carotid arteries are normal in course and caliber. The internal carotid arteries are normal in course and caliber. The left lobe of the thyroid is heterogeneous in appearance with a 1.6 cm hypoattenuating nodule. Further evaluation with thyroid ultrasound recommended. The soft tissues in the neck are otherwise unremarkable. The right thyroid lobe is not visualized possibly from prior resection. Dependent atelectasis at the posterior lung apices. No acute osseous abnormalities. Degenerative changes in the cervical spine notably at C3-C4 and C5-C7 with disc space narrowing and osteophyte formation. IMPRESSION: 1. No acute intracranial pathology. 2. Unremarkable CTA head and neck. No arterial stenosis, occlusion, aneurysmal dilatation, or dissection in the head and neck. 3. There is age-related cortical atrophy with periventricular chronic microvascular ischemic changes. 4. Opacification of the right maxillary and left sphenoid sinuses. 5. The left lobe of the thyroid is heterogeneous in appearance with a 1.6 cm hypoattenuating nodule. Further evaluation with thyroid ultrasound recommended. 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 Approved by:Eli Gonzales on 12/12/2018 10:11 PM MARIA TERESA. I, Haitham Elsamaloty, have reviewed the images and report and concur with these findings. Electronically signed by:Phillip Clements. Transcribed by: [email or web address], User Resident: ELI GONZALES Electronically Signed by: PHILLIP CLEMENTS @ 12/13/2018 08:31 AM I personally read this/these film(s) with this resident Normal [facility] Comment on above: Order Comment: R/O C VA CTA NECKon 12-12-2018 CTA NECK [facility] Department of Radiology [address] [place] [phone] == Patient Name: HEIDI PALMER : 1940 Sex: F Age: Race: White Pt. Location: [facility] Patient Status: I Ordered Date: 12/12/2018 8:55:00 PM Completed Date: 12/12/2018 09:44 PM Requesting Provider: MICHAEL GASTON Attending Provider: MICHAEL GASTON Report Copy To: Signs & Symptoms: Other History: Patient history not available Comments: Exam: CTA NECK == CTA HEAD, CTA NECK 12/12/2018 9:44 PM EST SIGNS AND SYMPTOMS: Stroke(CVA) TECHNOLOGIST COMMENTS: difficulty speaking QUESTION FOR THE RADIOLOGIST: R/O CVA PROTOCOL: Axial CT angiography images were obtained with IV contrast. CONTRAST: Contrast: OMNIPAQUE 350 (LOCM), 100 milliliter, Intravenous TECHNIQUE: Multi-detector CT angiography axial slices of the head and neck were obtained before and during intravenous administration of IV contrast material. Sagittal, coronal, and 3-D reconstructions were performed and viewed on a separate workstation. Appropriate CT dose lowering techniques were utilized. COMPARISON: None FINDINGS: Noncontrast head CT: Motion artifact obscures visualization of skull base and posterior fossa. Opacification of the right maxillary and left sphenoid sinuses. Age-related cortical atrophy with periventricular chronic microvascular ischemic changes. There is no shift of the midline structures, acute intracranial bleeding, mass effects, or evidence of acute ischemia. The ventricular system is normal in size. The brainstem and the cerebellum are unremarkable. The visualized intraorbital contents, and the visualized soft tissue in the infratemporal spaces show no abnormality. The osseous structures in the skull base and the calvarium show no acute abnormality. CTA Head: Internal carotid arteries: Within normal limits. Anterior cerebral arteries: Within normal limits apart from small caliber of the right A1 segment, a normal variant. Normal anterior communicating artery. Middle cerebral arteries: Within normal limits. Posterior communicating arteries: Within normal limits. Vertebral arteries: Within normal limits. Basilar artery: Within normal limits. Posterior cerebral arteries: Within normal limits. Bilateral posterior small communicating arteries are visualized. No intracranial arterial stenosis, occlusion, or aneurysmal dilatation. CTA Neck: Mild atherosclerotic calcification at the aortic arch. Four-vessel branching pattern of the arch with the left vertebral artery originating from the arch. The subclavian arteries are normal in course and caliber. The right vertebral artery originates from the right subclavian artery and is normal in course and caliber. The left vertebral artery originates from the aortic arch and is within normal limits. The common carotid arteries are normal in course and caliber. The internal carotid arteries are normal in course and caliber. The left lobe of the thyroid is heterogeneous in appearance with a 1.6 cm hypoattenuating nodule. Further evaluation with thyroid ultrasound recommended. The soft tissues in the neck are otherwise unremarkable. The right thyroid lobe is not visualized possibly from prior resection. Dependent atelectasis at the posterior lung apices. No acute osseous abnormalities. Degenerative changes in the cervical spine notably at C3-C4 and C5-C7 with disc space narrowing and osteophyte formation. IMPRESSION: 1. No acute intracranial pathology. 2. Unremarkable CTA head and neck. No arterial stenosis, occlusion, aneurysmal dilatation, or dissection in the head and neck. 3. There is age-related cortical atrophy with periventricular chronic microvascular ischemic changes. 4. Opacification of the right maxillary and left sphenoid sinuses. 5. The left lobe of the thyroid is heterogeneous in appearance with a 1.6 cm hypoattenuating nodule. Further evaluation with thyroid ultrasound recommended. 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 Approved by:Eli Gonzales on 12/12/2018 10:11 PM EST. I, Phillip Clements, have reviewed the images and report and concur with these findings. Electronically signed by:Phillip Clements. Transcribed by: [email or web address], User Resident: ELI GONZALES Electronically Signed by: PHILLIP CLEMENTS @ 12/13/2018 08:31 AM I personally read this/these film(s) with this resident Normal [facility] Vital Signs Date Time Vital Sign Value Performing Clinician Facility 06-09-2024 10:53-0400 Body height 157.48 cm MD Mica Hook Work Phone: [facility] [place] 06-09-2024 10:53-0400 Body mass index (BMI) [Ratio] 25.9 kg/m2 MD Mica Hook Work Phone: [facility] [place] 06-09-2024 10:53-0400 Body temperature 97.6 [degF] MD Mica Hook Work Phone: [facility] [place] 06-09-2024 10:53-0400 Body weight 64.41 kg MD Mica Hook Work Phone: [facility] [place] 06-09-2024 10:53-0400 Diastolic blood pressure 76 mm[Hg] MD Mica Hook Work Phone: [facility] [place] 06-09-2024 10:53-0400 Heart rate 62 /min MD Mica Hook Work Phone: [facility] [place] 06-09-2024 10:53-0400 Respiratory rate 16 /min MD Mica Hook Work Phone: [facility] [place] 06-09-2024 10:53-0400 SaO2% (BldA) [Mass fraction] 96 % MD Mica Hook Work Phone: [facility] [place] 06-09-2024 10:53-0400 Systolic blood pressure 153 mm[Hg] MD Mica Hook Work Phone: [facility] [place] 06-07-2024 11:20-0400 Body height 157.48 cm [facility] 06-07-2024 11:20-0400 Body mass index (BMI) [Ratio] 26 kg/m2 [facility] [place] 06-07-2024 11:20-0400 Body weight 64.66 kg [facility] 06-07-2024 11:20-0400 Diastolic blood pressure 67 mm[Hg] [facility] [place] 06-07-2024 11:20-0400 Heart rate 61 /min [facility] 06-07-2024 11:20-0400 Respiratory rate 18 /min [facility] 06-07-2024 11:20-0400 SaO2% (BldA) [Mass fraction] 97 % [facility] [place] 06-07-2024 11:20-0400 Systolic blood pressure 148 mm[Hg] [facility] [place] 03-07-2024 11:18-0400 Body height 157.48 cm MD Mica Hook Work Phone: [facility] [place] 03-07-2024 11:18-0400 Body mass index (BMI) [Ratio] 25.1 kg/m2 MD Mica Hook Work Phone: [facility] [place] 03-07-2024 11:18-0400 Body weight 62.31 kg MD Mica Hook Work Phone: [facility] [place] 03-07-2024 11:18-0400 Diastolic blood pressure 70 mm[Hg] MD Mica Hook Work Phone: [facility] [place] 03-07-2024 11:18-0400 Heart rate 62 /min MD Mica Hook Work Phone: [facility] [place] 03-07-2024 11:18-0400 Respiratory rate 16 /min MD Mica Hook Work Phone: [facility] [place] 03-07-2024 11:18-0400 SaO2% (BldA) [Mass fraction] 97 % MD Mica Hook Work Phone: [facility] [place] 03-07-2024 11:18-0400 Systolic blood pressure 109 mm[Hg] MD Mica Hook Work Phone: [facility] [place] 02-18-2024 13:57-0400 Body height 157.48 cm MD Mica Hook Work Phone: [facility] [place] 02-18-2024 13:57-0400 Body mass index (BMI) [Ratio] 24.5 kg/m2 MD Mica Hook Work Phone: [facility] [place] 02-18-2024 13:57-0400 Body weight 60.97 kg MD Mica Hook Work Phone: [facility] [place] 02-18-2024 13:57-0400 Diastolic blood pressure 69 mm[Hg] MD Mica Hook Work Phone: [facility] [place] 02-18-2024 13:57-0400 Heart rate 65 /min MD Mica Hook Work Phone: [facility] [place] 02-18-2024 13:57-0400 Systolic blood pressure 122 mm[Hg] MD Mica Hook Work Phone: [facility] [place] 01-26-2024 13:38-0400 Body height 165.1 cm Yusuf Hayward MD Work Phone: [facility] 01-26-2024 13:38-0400 Body mass index (BMI) [Ratio] 22.83 kg/m2 Yusuf Hayward MD Work Phone: [facility] 01-26-2024 13:38-0400 Body weight 62.23 kg Yusuf Hayward MD Work Phone: [facility] 01-26-2024 13:38-0400 Diastolic blood pressure 80 mm[Hg] Yusuf Hayward MD Work Phone: [facility] 01-26-2024 13:38-0400 Heart rate 64 /min Yusuf Hayward MD Work Phone: [facility] 01-26-2024 13:38-0400 Systolic blood pressure 120 mm[Hg] Yusuf Hayward MD Work Phone: [facility] 01-17-2024 11:54-0400 Body height 157.48 cm MD Mica Hook Work Phone: [facility] [place] 01-17-2024 11:54-0400 Body mass index (BMI) [Ratio] 25 kg/m2 MD Mica Hook Work Phone: [facility] [place] 01-17-2024 11:54-0400 Body weight 62.14 kg MD Mica Hook Work Phone: [facility] [place] 01-17-2024 11:54-0400 Diastolic blood pressure 81 mm[Hg] MD Mica Hook Work Phone: [facility] [place] 01-17-2024 11:54-0400 Heart rate 59 /min MD Mica Hook Work Phone: [facility] [place] 01-17-2024 11:54-0400 Respiratory rate 18 /min MD Mica Hook Work Phone: [facility] [place] 01-17-2024 11:54-0400 SaO2% (BldA) [Mass fraction] 97 % MD Mica Hook Work Phone: [facility] [place] 01-17-2024 11:54-0400 Systolic blood pressure 126 mm[Hg] MD Mica Hook Work Phone: [facility] [place] 12-08-2023 11:20-0500 Body height 157.48 cm MD Mica Hook Work Phone: [facility] [place] 12-08-2023 11:20-0500 Body mass index (BMI) [Ratio] 29.2 kg/m2 MD Mica Hook Work Phone: [facility] [place] 12-08-2023 11:20-0500 Body temperature 97 [degF] MD Mica Hook Work Phone: [facility] [place] 12-08-2023 11:20-0500 Body weight 72.57 kg MD Mica Hook Work Phone: [facility] [place] 12-08-2023 11:20-0500 Diastolic blood pressure 70 mm[Hg] MD Mica Hook Work Phone: [facility] [place] 12-08-2023 11:20-0500 Heart rate 64 /min MD Mica Hook Work Phone: [facility] [place] 12-08-2023 11:20-0500 Respiratory rate 16 /min MD Mica Hook Work Phone: [facility] [place] 12-08-2023 11:20-0500 SaO2% (BldA) [Mass fraction] 98 % MD Mica Hook Work Phone: [facility] [place] 12-08-2023 11:20-0500 Systolic blood pressure 140 mm[Hg] MD Mica Hook Work Phone: [facility] [place] 11-18-2023 12:45-0500 Body height 158.75 cm Norma Scally Other [facility] [place] 11-18-2023 12:45-0500 Body mass index (BMI) [Ratio] 26.87 kg/m2 Norma Scally Other [facility] [employer] Other 11-18-2023 12:45-0500 Body weight 67.72 kg Norma Scally Other [facility] [place] 11-18-2023 12:45-0500 Diastolic blood pressure 77 mm[Hg] Norma Scally Other [facility] [place] 11-18-2023 12:45-0500 Respiratory rate 16 /min Norma Scally Other [facility] [employer] Other 11-18-2023 12:45-0500 SaO2% (BldA) [Mass fraction] 97 % Norma Scally Other [facility] [employer] [employer] Other 11-18-2023 12:45-0500 Systolic blood pressure 141 mm[Hg] Norma Diaz Other [facility] [place] 11-17-2023 11:31-0500 Body temperature 97.8 [degF] MD Mica Hook Work Phone: [facility] [place] 11-17-2023 11:31-0500 Diastolic blood pressure 76 mm[Hg] MD Mica Hook Work Phone: [facility] [place] 11-17-2023 11:31-0500 Heart rate 64 /min MD Mica Hook Work Phone: [facility] [place] 11-17-2023 11:31-0500 Respiratory rate 20 /min MD Mica Hook Work Phone: [facility] [place] 11-17-2023 11:31-0500 SaO2% (BldA) [Mass fraction] 98 % MD Mica Hook Work Phone: [facility] [place] 11-17-2023 11:31-0500 Systolic blood pressure 128 mm[Hg] MD Mica Hook Work Phone: [facility] [place] 11-09-2023 14:00-0500 Body height 158.75 cm Mica Hook Other [facility] [place] 11-09-2023 14:00-0500 Body mass index (BMI) [Ratio] 25.47 kg/m2 Mica Hook Other [facility] [employer] Other 11-09-2023 14:00-0500 Body weight 64.18 kg Mica Hook Other [facility] [place] 11-09-2023 14:00-0500 Diastolic blood pressure 77 mm[Hg] Mica Hook Other [facility] [place] 11-09-2023 14:00-0500 Respiratory rate 16 /min Mica Hook Other [facility] [employer] [employer] Other 11-09-2023 14:00-0500 Systolic blood pressure 119 mm[Hg] Mica Hook Other [facility] [place] 11-03-2023 12:37-0500 Body temperature 97.6 [degF] MD Mica Hook Work Phone: [facility] [place] 11-03-2023 12:37-0500 Diastolic blood pressure 77 mm[Hg] MD Mica Hook Work Phone: [facility] [place] 11-03-2023 12:37-0500 Heart rate 56 /min MD Mica Hook Work Phone: [facility] [place] 11-03-2023 12:37-0500 Respiratory rate 16 /min MD Mica Hook Work Phone: [facility] [place] 11-03-2023 12:37-0500 SaO2% (BldA) [Mass fraction] 93 % MD Mica Hook Work Phone: [facility] [place] 11-03-2023 12:37-0500 Systolic blood pressure 125 mm[Hg] MD Mica Hook Work Phone: [facility] [place] 11-03-2023 07:35-0500 Body height 157.48 cm MD Mica Hook Work Phone: [facility] [place] 10-31-2023 04:30-0500 Body weight 69 kg MD Mica Hook Work Phone: [facility] [place] 10-15-2023 13:04-0500 Body temperature 97.5 [degF] MD Mica Hook Work Phone: [facility] [place] 10-15-2023 13:04-0500 Diastolic blood pressure 74 mm[Hg] MD Mica Hook Work Phone: [facility] [place] 10-15-2023 13:04-0500 Heart rate 67 /min MD Mica Hook Work Phone: [facility] [place] 10-15-2023 13:04-0500 Respiratory rate 18 /min MD Mica Hook Work Phone: [facility] [place] 10-15-2023 13:04-0500 SaO2% (BldA) [Mass fraction] 100 % MD Mica Hook Work Phone: [facility] [place] 10-15-2023 13:04-0500 Systolic blood pressure 135 mm[Hg] MD Mcia Hook Work Phone: [facility] [place] 10-15-2023 06:17-0500 Body weight 69.4 kg MD Mica Hook Work Phone: [facility] [place] 10-13-2023 15:36-0500 Inhaled oxygen flow rate 1 L/min MD Mica Hook Work Phone: [facility] [place] 10-12-2023 13:13-0500 Body height 157.48 cm MD Mica Hook Work Phone: [facility] [place] 10-12-2023 12:33-0500 Body mass index (BMI) [Ratio] 27.1 kg/m2 MD Mica Hook Work Phone: [facility] [place] 10-11-2023 17:28-0500 Inhaled oxygen flow rate 2 L/min MD Mica Hook Work Phone: [facility] [place] 10-11-2023 17:26-0500 Diastolic blood pressure 70 mm[Hg] MD Mica Hook Work Phone: [facility] [place] 10-11-2023 17:26-0500 Heart rate 78 /min MD Mica Hook Work Phone: [facility] [place] 10-11-2023 17:26-0500 Respiratory rate 18 /min MD Mica Hook Work Phone: [facility] [place] 10-11-2023 17:26-0500 SaO2% (BldA) [Mass fraction] 99 % MD Mica Hook Work Phone: [facility] [place] 10-11-2023 17:26-0500 Systolic blood pressure 149 mm[Hg] MD Mica Hook Work Phone: [facility] [place] 10-11-2023 17:19-0500 Body height 157.48 cm MD Mica Hook Work Phone: [facility] [place] 10-11-2023 17:19-0500 Body temperature 98.1 [degF] MD Mica Hook Work Phone: [facility] [place] 10-11-2023 17:19-0500 Body weight 67.2 kg MD Mica Hook Work Phone: [facility] [place] 10-11-2023 11:00-0500 Body height 158.75 cm Norma Scally Other [facility] [place] 10-11-2023 11:00-0500 Body mass index (BMI) [Ratio] 25.47 kg/m2 Norma Scally Other [facility] [employer] [employer] Other 10-11-2023 11:00-0500 Body weight 64.18 kg Norma Scally Other [facility] [place] 10-11-2023 11:00-0500 Diastolic blood pressure 81 mm[Hg] Norma Scally Other [facility] [place] 10-11-2023 11:00-0500 Respiratory rate 16 /min Norma Scally Other [employer] [facility] [employer] [employer] Other 10-11-2023 11:00-0500 SaO2% (BldA) [Mass fraction] 96 % Norma Scally Other [facility] [employer] [employer] Other 10-11-2023 11:00-0500 Systolic blood pressure 131 mm[Hg] Norma Scally Other [facility] [place] 07-19-2023 13:00-0400 Body height 162.56 cm Mica Hook Other [facility] [employer] [employer] Other 07-19-2023 13:00-0400 Body mass index (BMI) [Ratio] 23.38 kg/m2 Mica Hook Other [employer] Other 07-19-2023 13:00-0400 Body weight 61.78 kg Mica Hook Other [employer] Other 07-19-2023 13:00-0400 Diastolic blood pressure 77 mm[Hg] Mica Hook Other [employer] Other 07-19-2023 13:00-0400 Respiratory rate 12 /min Mica Hook Other [employer] Other 07-19-2023 13:00-0400 Systolic blood pressure 146 mm[Hg] Mica Hook Other [employer] Other 06-21-2023 13:45-0400 Body height 162.56 cm Mica Hook Other [employer] Other 06-21-2023 13:45-0400 Body mass index (BMI) [Ratio] 23.69 kg/m2 Mica Hook Other [employer] Other 06-21-2023 13:45-0400 Body weight 62.6 kg Mica Hook Other [employer] Other 06-21-2023 13:45-0400 Diastolic blood pressure 84 mm[Hg] Mica Hook Other [employer] Other 06-21-2023 13:45-0400 SaO2% (BldA) [Mass fraction] 95 % Mica Hook Other [employer] Other 06-21-2023 13:45-0400 Systolic blood pressure 140 mm[Hg] Mica Hook Other [employer] Other 01-14-2023 12:55-0500 Body height 165.1 cm Mica Hook Work Phone: [facility] DO Work Phone: 01-14-2023 12:55-0500 Body mass index (BMI) [Ratio] 23.46 kg/m2 Mica Hook Work Phone: [facility] DO Work Phone: 01-14-2023 12:55-0500 Body surface area Derived from formula 1.71 m2 Mica Hook Work Phone: [facility] DO Work Phone: 01-14-2023 12:55-0500 Body weight 63.96 kg Mica Hook Work Phone: [facility] DO Work Phone: 01-14-2023 12:55-0500 Diastolic blood pressure 70 mm[Hg] Mica Hook Work Phone: [facility] DO Work Phone: 01-14-2023 12:55-0500 Heart rate 58 /min Mica Hook Work Phone: [facility] DO Work Phone: 01-14-2023 12:55-0500 Systolic blood pressure 128 mm[Hg] Mica Hook Work Phone: [facility] DO Work Phone: 11-23-2022 11:30-0500 Body height 162.56 cm Mica Hook Other [employer] Other 11-23-2022 11:30-0500 Body mass index (BMI) [Ratio] 24.03 kg/m2 Mica Hook Other [employer] Other 11-23-2022 11:30-0500 Body weight 63.5 kg Mica Hook Other [employer] Other 11-23-2022 11:30-0500 Diastolic blood pressure 72 mm[Hg] Mica Hook Other [employer] Other 11-23-2022 11:30-0500 SaO2% (BldA) [Mass fraction] 97 % Mica Hook Other [employer] Other 11-23-2022 11:30-0500 Systolic blood pressure 122 mm[Hg] Mica Hook Other [employer] Other 01-16-2022 13:49-0500 Diastolic blood pressure 64 mm[Hg] Mica Hook Work Phone: [facility] [employer] [facility] [employer] DO Work Phone: 01-16-2022 13:49-0500 Systolic blood pressure 98 mm[Hg] Mica Hook Work Phone: [employer] [facility] [employer] DO Work Phone: 01-16-2022 13:44-0500 Body height 165.1 cm Mica Hook Work Phone: [employer] [facility] [employer] DO Work Phone: 01-16-2022 13:44-0500 Body mass index (BMI) [Ratio] 23.8 kg/m2 Mica Hook Work Phone: [employer] [facility] [employer] DO Work Phone: 01-16-2022 13:44-0500 Body surface area Derived from formula 1.72 m2 Mica Hook Work Phone: [employer] [facility] [employer] DO Work Phone: 01-16-2022 13:44-0500 Body weight 64.86 kg Mica Hook Work Phone: [facility] DO Work Phone: 01-16-2022 13:44-0500 Diastolic blood pressure 49 mm[Hg] Mica Hook Work Phone: [facility] DO Work Phone: 01-16-2022 13:44-0500 Systolic blood pressure 97 mm[Hg] Mica Hook Work Phone: [facility] DO Work Phone: Encounters Encounter Date Encounter Type Care Provider Facility Start: 06-16-2024 End: 06-16-2024 ambulatory JAS STUART Not Available Start: 06-09-2024 End: 06-09-2024 ambulatory MD Mica Hook Work Phone: [facility] Work Phone: Start: 06-09-2024 End: 06-09-2024 Patient encounter procedure MD Mica Hook Work Phone: [facility] Work Phone: Start: 06-09-2024 Registered Recurring MD Mica Hook Work Phone: [facility] Work Phone: Start: 06-09-2024 ambulatory Mica Hook Facility :[facility] [place] Start: 06-07-2024 End: 06-07-2024 ambulatory [facility] Work Phone: Start: 06-07-2024 End: 06-07-2024 Patient encounter procedure [facility] Work Phone: Start: 04-19-2024 End: 04-19-2024 ambulatory [facility] Work Phone: Start: 04-19-2024 End: 04-19-2024 Patient encounter procedure [facility] Work Phone: Start: 04-10-2024 End: 04-10-2024 ambulatory MD Mica Hook Work Phone: [facility] Work Phone: Start: 04-10-2024 End: 04-10-2024 Patient encounter procedure MD Mica Hook Work Phone: [facility] Start: 03-23-2024 Non-patient / Non-visit MD Coral Hook Work Phone: [facility] Work Phone: Start: 03-07-2024 End: 03-07-2024 ambulatory MD Mica Hook Work Phone: [facility] Work Phone: Start: 03-07-2024 End: 03-07-2024 Patient encounter procedure MD Mica Hook Work Phone: [facility] [facility] Work Phone: Start: 02-18-2024 End: 02-18-2024 ambulatory MD Mica Hook Work Phone: [facility] Work Phone: Start: 02-18-2024 End: 02-18-2024 Patient encounter procedure MD Mica Hook Work Phone: [facility] Work Phone: Start: 01-26-2024 End: 01-26-[address] 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 (Primary Dx); Essential hypertension, benign; History of PTCA; Mixed hyperlipidemia; Edema, unspecified type; Never smoked cigarettes Start: 01-17-2024 End: 01-17-2024 Patient encounter procedure MD Mica Hook Work Phone: [facility] Work Phone: Start: 01-10-2024 End: 01-10-2024 Patient encounter procedure MD Mica Hook Work Phone: [facility] Work Phone: Start: 01-10-2024 End: 01-10-2024 Patient encounter procedure MD Mica Hook Work Phone: [facility] Start: 01-10-2024 End: 01-10-2024 ambulatory Ismael Leonardxa Facility:[facility] Start: 12-24-2023 Non-patient / Non-visit MD Coral Hook Work Phone: Community Health Physician [facility] Work Phone: Start: 12-17-2023 End: 12-17-2023 ambulatory Mica Hook Other [employer] Other Start: 12-17-2023 Telephone encounter Mica Hook [facility] Start: 12-15-2023 Nursing evaluation o f patient and report Norma Diaz [facility] Start: 12-15-2023 End: 12-15-2023 Discharged Recurring MD Mica Hook Work Phone: [facility] Work Phone: Start: 12-15-2023 End: 12-15-2023 ambulatory MD Mica Hook Work Phone: [employer] Other Start: 12-13-2023 End: 12-13-2023 ambulatory Mica Hook Other [employer] Other Start: 12-13-2023 Telephone encounter Mica GRAVES [facility] Start: 12-08-2023 End: 12-08-2023 ambulatory MD Mica Hook Work Phone: [facility] Work Phone: Start: 12-08-2023 End: 12-08-2023 Patient encounter procedure MD Mica Hook Work Phone: [facility] Work Phone: Start: 12-08-2023 Registered Recurring MD Mica Hook [facility] Work Phone: Start: 11-18-2023 Registered Recurring MD Mica Hook [facility] Work Phone: Start: 11-18-2023 (DM) Diabetes Norma Diaz [facility] Start: 11-18-2023 End: 11-18-2023 ambulatory Norma Saadhollis Other [employer] Other Start: 11-18-2023 End: 11-18-2023 Patient encounter procedure MD Mica Hook Work Phone: [facility] Work Phone: Start: 11-16-2023 Postop follow up vis it related to original px Ismael Olexa [facility] Start: 11-16-2023 End: 11-16-2023 Patient encounter procedure MD Mica Hook Work Phone: [facility] Start: 11-16-2023 End: 11-16-2023 ambulatory MD Mica Hook Work Phone: [facility] Work Phone: Start: 11-09-2023 End: 11-09-2023 ambulatory Mica Hook Other [employer] Other Start: 11-09-2023 Office outpatient vi sit 25 minutes Mica GRAVES [facility] Start: 11-09-2023 End: 11-09-2023 Patient encounter procedure MD Mica Hook Work Phone: [facility] Work Phone: Start: 11-05-2023 End: 11-05-2023 ambulatory Mica Hook Other [employer] Other Start: 11-05-2023 Telephone encounter Mica Hook [facility] Start: 11-02-2023 End: 11-02-2023 ambulatory Mica Hook Other [employer] Other Start: 11-02-2023 Telephone encounter Mica Hook [facility] Start: 10-26-2023 End: 10-26-2023 ambulatory Mica Hook Other [employer] Other Start: 10-26-2023 Telephone encounter Mica Hook [facility] Start: 10-15-2023 End: 11-03-2023 Evaluation and management of inpatient MD Mica Hook Work Phone: [facility] Work Phone: Start: 10-11-2023 End: 10-15-2023 Evaluation and management of inpatient MD Mica Hook Work Phone: [facility] Work Phone: Start: 10-11-2023 End: 10-11-2023 ambulatory Norma Emily Other [employer] Other Start: 10-11-2023 FQHC visit new patient Norma Nashl y [facility] Start: 10-11-2023 Registered Recurring MD Mica Hook Work Phone: [facility] Work Phone: Start: 10-11-2023 End: 10-11-2023 Patient encounter procedure MD Mica Hook Work Phone: [facility] Work Phone: Start: 10-07-2023 (Televisit) Televisit Mica Hook Luis [facility] Start: 10-07-2023 End: 10-07-2023 ambulatory Mica Hook Other [employer] Other Start: 09-13-2023 End: 09-13-2023 ambulatory Mica Hook Other [employer] Other Start: 09-13-2023 Telephone encounter Mica Hook [facility] Start: 09-08-2023 End: 09-08-2023 ambulatory MD Mica Hook Work Phone: [facility] Work Phone: Start: 09-08-2023 End: 09-08-2023 Departed Referred MD Mica Hook Work Phone: [facility] [place] Work Phone: Start: 08-19-2023 End: 08-19-2023 ambulatory Mica Hook Other [employer] Other Start: 08-19-2023 Telephone encounter Mica Hook [facility] Start: 08-05-2023 End: 08-05-2023 ambulatory Mica Hook Other [employer] Other Start: 08-05-2023 Telephone encounter Mica Hook [facility] Start: 07-26-2023 End: 07-26-2023 ambulatory Mica Hook Other [employer] Other Start: 07-26-2023 Telephone encounter Mica Hook [facility] Start: 07-19-2023 End: 07-19-2023 ambulatory Mica Hook Other [employer] Other Start: 07-19-2023 Office outpatient vi sit 15 minutes Mica Hook [facility] Start: 06-23-2023 End: 06-23-2023 ambulatory Mica Hook Other [employer] Other Start: 06-23-2023 Telephone encounter Mica Hook [facility] Start: 06-21-2023 End: 06-21-2023 ambulatory Mica Hook Other [employer] Other Start: 06-21-2023 Office outpatient vi sit 25 minutes Mica Hook [facility] Start: 05-18-2023 End: 05-18-2023 ambulatory Mica Hook Other [employer] Other Start: 05-18-2023 Telephone encounter Mica Hook [facility] Start: 02-17-2023 End: 02-17-2023 ambulatory Mica Hook Other [employer] Other Start: 02-17-2023 Telephone encounter Mica Hook [facility] Start: 02-16-2023 Postop follow up vis it related to original px Uma Mccauley [facility] Start: 02-16-2023 End: 02-16-2023 ambulatory MD Mica Hook Work Phone: [facility] Work Phone: Start: 02-16-2023 End: 02-16-2023 Patient encounter procedure MD Mica Hook Work Phone: [facility] Start: 01-28-2023 End: 01-28-2023 ambulatory Uma Mccauley Other [employer] Other Start: 01-28-2023 Telephone encounter Uma Mccauley [facility] Start: 01-14-2023 Office outpatient vi sit 25 minutes Mica Hook Work Phone: [facility] 250 DO Work Phone: Start: 01-14-[address] Yusuf nice [facility] Facility:[id number] Start: 01-06-2023 Postop follow up vis it related to original px Uma Mccauley [facility] Start: 01-06-2023 End: 01-06-2023 ambulatory MD Mica Hook Work Phone: [facility] Work Phone: Start: 01-06-2023 End: 01-06-2023 Patient encounter procedure MD Mica Hook Work Phone: [facility] Start: 12-23-2022 End: 12-23-2022 ambulatory Uma Mccauley Other [employer] Other Start: 12-23-2022 Telephone encounter Uma Mccauley [facility] Start: 12-22-2022 End: 12-22-2022 ambulatory Uma Garrick Other [employer] Other Start: 12-22-2022 FQHC visit new patient Uma Barker y [facility] Start: 12-18-2022 End: 12-18-[address] MICA HOOK Facility:[facility] Start: 11-26-2022 End: 11-26-2022 ambulatory Mica Hook Other [employer] Other Start: 11-26-2022 Telephone encounter Mica Hook [facility] Start: 11-23-2022 Office outpatient vi sit 25 minutes Mica Hook [facility] Start: 11-23-2022 End: 11-24-[address] MICA HOOK Facility:[facility] Start: 10-22-2022 Rx Renewal Mica Hook Work Phone: [facility] 250 DO Work Phone: Start: 03-02-2022 End: 03-03-[address] MICA HOOK Facility:[facility] Start: 02-25-2022 End: 02-25-[address] MICA HOOK Facility:[facility] Start: 02-25-2022 End: 02-25-[address] MICA HOOK Facility:[facility] Start: 01-16-2022 Office outpatient vi sit 15 minutes Mica Hook Work Phone: [facility] 250 DO Work Phone: Start: 01-16-[address] Yusuf Hayward II Facility: Start: 11-10-2021 Rx Renewal Yusuf warren MD Work Phone: [facility] 250 DO Work Phone: Start: 08-14-2021 Rx Renewal Yusuf warren MD Work Phone: [facility] 250 DO Work Phone: Start: 07-16-2021 Adult health examination Mica Hook Other [facility] [employer] Other Start: 12-13-2018 End: 12-16-2018 Evaluation and management of inpatient MICA HOOK Facility:[facility] Procedures Date Procedure Procedure Detail Performing Clinician Start: 06-07-2024 CT of chest without contrast MD Mica Hook Work Phone: Start: 01-10-2024 Plain X-ray of right hip MD Mica Hook Work Phone: Start: 12-01-2023 Screening mammograph y of right breast MD Mica Hook Work Phone: Start: 11-24-2023 Positron emission tomography with computed tomography MD Mica Hook Work Phone: Start: 11-16-2023 Plain X-ray of right hip MD Mica Hook Work Phone: Start: 11-02-2023 History of percutane ous transluminal coronary angioplasty History of PTCA Yusuf Hayward MD Work Phone: Start: 11-02-2023 Urine culture MD Mica Hook Work Phone: Start: 10-29-2023 Plain chest X-ray MD Bernadette Hook Work Phone: Start: 10-27-2023 SARS-CoV-2, Influenz a & RSV (PCR) MD Mica Hook Work Phone: Start: 10-27-2023 Urine culture MD Mica Hook Work Phone: Start: 10-27-2023 Plain chest X-ray MD Bernadette Hook Work Phone: Start: 10-26-2023 Plain X-ray of right hip MD Mica Hook Work Phone: Start: 10-21-2023 Duplex scan of lower limb veins MD Mica Hook Work Phone: Start: 10-18-2023 Plain X-ray of left elbow MD Mica Hook Work Phone: Start: 10-14-2023 Carcinoembryonic ant igen cea Mica Hook Comment on above: Result Comment: PERF ORMED BY: [facility] [address] [place] [address] PATHOLOGIST SPRING BENDER MELODY WHEELER M.D. 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 [address] PATHOLOGIST SPRING BENDER MELODY WHEELER M.D. Start: 10-11-2023 CT cervical spine wi thout contrast MD Mica Hook Work Phone: Start: 10-11-2023 CT of head without contrast MD Mica Hook Work Phone: Start: 10-11-2023 Plain X-ray of right hip MD Mica Hook Work Phone: Start: 10-11-2023 X-ray of right knee MD Mica Hook Work Phone: Start: 09-08-2023 Urine culture MD Mica Hook Work Phone: Start: 02-16-2023 Plain X-ray of left elbow MD Mica Hook Work Phone: Start: 02-16-2023 Plain X-ray of left hand MD Mica Hook Work Phone: Start: 01-06-2023 Plain X-ray of left elbow MD Mica Hook Work Phone: Start: 01-06-2023 Plain X-ray of left hand MD Mica Hook Work Phone: Start: 12-13-2018 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, 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 ANITA RDZ Biopsy of breast Yusuf lucio MD Work Phone: Destructive procedure Dany Hayward MD Work Phone: H/O: surgery History of thyro id surgery MD Mica Hook Work Phone: History of percutane ous transluminal coronary angioplasty History of PTCA Yusuf Hayward MD Work Phone: History of percutane ous transluminal coronary angioplasty History of PTCA Yusuf Hayward MD Work Phone: Operation on thyroid gland W bryson Hayward MD Work Phone: Operative procedure on ankle Yusuf Hayward MD Work Phone: Surgical procedure o n thorax Yusuf Hayward MD Work Phone: Total colonoscopy Yusuf Salas MD Work Phone: Plan of Treatment Date Care Activity Detail Author Start: 12-18-2032 DTaP/Tdap/Td Vaccines (2 - Td or Tdap) DTaP/Tdap/Td Vaccines (2 - Td or Tdap) [facility] Start: 01-24-2025 End: 01-24-2025 Patient encounter procedure 01/24/2025 11:30 AM EDT Office Visit [facility] [address] [place] [id number] Yusuf Mcdermott S, DO [address] [place] [address] [facility] Start: 01-26-2024 FUV, Provider: Yusuf Hayward, Status: Pen, Time: 1:00 PM FUV, Provider: Yusuf Hayward, Status: Pen, Time: 1:00 PM [facility] 250 DO Work Phone: Start: 12-08-2023 Patient referral [facility] Work Phone: Start: 10-26-2023 [facility] Start: 10-15-2023 Administration of prophylactic treatment [facility] Start: 10-15-2023 Hospital admission [facility] Start: 10-15-2023 Referral to clinical clarifier operator helper [facility] Start: 10-15-2023 [facility] Start: 10-13-2023 Referral to rehabilitation physician [facility] Start: 10-12-2023 Urine culture Urine Culture [facility] Start: 10-12-2023 Referral to oncologist [facility] Start: 10-12-2023 Blood chemistry [facility] Start: 10-12-2023 [facility] Start: 10-11-2023 Patient referral to dietitian [facility] Start: 10-11-2023 Hospital admission [facility] Start: 10-11-2023 End: 10-11-2023 Consultation [facility] Start: 10-11-2023 Physical therapy procedure [facility] Start: 10-11-2023 Referral to occupational therapist [facility] Start: 10-11-2023 [facility] Start: 10-11-2023 Replacement of Right Hip Joint, Femoral Surface with Metal Synthetic Substitute, Open Approach Replacement of Right Hip Joint, Femoral Surface with Metal Synthetic Substitute, Open Approach [facility] Start: 09-08-2023 Bacteria identified in Urine by Culture [facility] Start: 07-09-2023 COVID-19 Vaccine ( season) COVID-19 Vaccine ( season) [facility] Start: 07-09-2023 Influenza vaccination Influenza Vaccine (#1) [facility] Start: 04-27-2023 Glaucoma screening Diabetes: Retinopathy Screening [facility] Start: 01-15-2023 FUV, Provider: Yusuf Hayward, Status: Pen, Time: 1:10 PM FUV, Provider: Yusuf Hayward, Status: Pen, Time: 1:10 PM [facility] 250 DO Work Phone: Start: 11-18-2021 FUV, Provider: Yusuf Hayward, Status: Pen, Time: 11:15 AM FUV, Provider: Yusuf Hayward, Status: Pen, Time: 11:15 AM [facility] 250 DO Work Phone: Start: 01-03-2018 Pneumococcal Vaccine: 65+ Years (2 - PPSV23 or PCV20) Pneumococcal Vaccine: 65+ Years (2 - PPSV23 or PCV20) [facility] Start: 08-20-2017 Zoster Vaccines (2 of 3) Zoster Vaccines (2 of 3) [facility] Start: 1958 Urine screening for protein Diabetes: Urine Protein Screening [facility] Start: 1949 Diabetic foot examination Diabetes: Foot Exam [facility] Start: 1939 Hemoglobin A1c measurement Diabetes: Hemoglobin A1C [facility] Start: 1939 Lipid panel Lipid Panel [facility] Start: 1939 Medicare Annual Wellness Visit Medicare Annual Wellness Visit (AWV) [facility] Start: 1939 Screening for osteoporosis Bone Density Scan [facility] Start: 1939 Thyroid stimulating hormone measurement TSH Level [facility] CT Chest WO contrast [facility] CT guided biopsy [facility] CT Unspecified body region [facility] MG Breast - right Screening [facility] Patient Education [facility] Work Phone: Patient referral [facility] Work Phone: [facility] Immunizations Immunization Date Immunization Notes Care Provider Jose zarate 12-18-2022 diphtheria, tetanus toxoids and pertussis vaccine [facility] Work Phone: 12-18-2022 tetanus toxoid, redu cm diphtheria toxoid, and acellular pertussis vaccine, adsorbed Yusuf Hayward MD Work Phone: [facility] Work Phone: 05-29-2022 Moderna COVID-19 Vaccine 100 MCG/0.5ML Intramuscular Suspension [facility]ica [facility] Work Phone: 10-09-2021 Moderna COVID-19 Vaccine 100 MCG/0.5ML Intramuscular Suspension Mica Hook Work Phone: [place] [address] DO Work Phone: 09-17-2021 influenza virus vaccine, split virus (incl. purified surface antigen) Mica Hook Other [facility] [employer] [facility] Other 09-17-2021 influenza virus vaccine, unspecified formulation MD Mica Hook Work Phone: [facility] 09-08-2021 influenza, seasonal, injectable Mica Hook Work Phone: [facility] 250 DO Work Phone: Comment on above: Series: 09-08-2021 influenza virus vaccine, unspecified formulation Yusuf Hayward MD Work Phone: [facility] Work Phone: 01-16-2021 Moderna COVID-19 Vaccine 100 MCG/0.5ML Intramuscular Suspension Yusuf Hayward MD Work Phone: [facility] 12-20-2020 Moderna COVID-19 Vaccine 100 MCG/0.5ML Intramuscular Suspension Yusuf Hayward MD Work Phone: [facility] 08-21-2020 influenza virus vaccine, split virus (incl. purified surface antigen) Mica Hook Other [facility] [employer] [facility] Other 08-21-2020 influenza virus vaccine, unspecified formulation MD Mica Hook Work Phone: [facility] 08-08-2020 influenza virus vaccine, unspecified formulation Yusuf Hayward MD Work Phone: [facility] [employer] DO Work Phone: 08-18-2018 influenza virus vaccine, split virus (incl. purified surface antigen) Mica Hook Other [facility] [employer] [facility] Other 08-18-2018 influenza virus vaccine, unspecified formulation MD Mica Hook Work Phone: [facility] 08-18-2018 Seasonal trivalent influenza vaccine, adjuvanted, preservative free Mica Hook Work Phone: [facility] [employer] DO Work Phone: 11-08-2017 pneumococcal conjuga te vaccine, 13 valent Yusuf Hayward MD Work Phone: [facility] 06-25-2017 influenza, high dose seasonal, preservative-free Mica Hook Work Phone: [facility] [employer] 250 DO Work Phone: 06-25-2017 zoster vaccine, live Mica Hook Work Phone: [facility] 08-17-2014 tetanus and diphther ia toxoids, adsorbed, preservative free, for adult use (5 Lf of tetanus toxoid and 2 Lf of diphtheria toxoid) Mica Hook Other [facility] 08-24-2013 tetanus and diphther ia toxoids, adsorbed, preservative free, for adult use (5 Lf of tetanus toxoid and 2 Lf of diphtheria toxoid) Mica Hook Other [facility] 09-16-2005 pneumococcal polysaccharide vaccine, 23 valent Mica Hook Other [facility] Payers Date Payer Category Payer Unknown 2023 Medicare [id number] 2023 Self-pay [id number] 1960 Medicare [id number] 1959 Unknown [id number] 1939 Unknown [id number] 2.16.8 [id number] 1939 Unknown [id number] 2.16.84 [id number] 1939 Unknown [id number] 2.16.84 [id number] 1939 Unknown [id number] 2.16.84 [id number] 1939 Unknown [id number] 2.16.84 [id number] 1939 Unknown [id number] 2.16.84 [id number] 1939 Unknown [id number] 2.16. [id number] 1939 Unknown [id number] 2.16. [id number] 1939 Unknown [id number] 2.16.8 [id number] 1939 Unknown [id number] 2.16.84 [id number] Unknown [facility] Health Claims [id number] Unknown [id number] Unknown [id number] 2.16.8 [id number] Unknown [id number] 2.16.8 [id number] Unknown [id number] 2.16.8 40.1.118458.3.579.2.531 Unknown [id number] 2.16.8 40.1.157433.3.579.2.531 Unknown [id number] 2.16.8 [id number] Unknown [id number] 2.16.8 [id number] Unknown [id number] 2.16.8 [id number] Social History Date Type Detail Facility Start: 01-26-2024 Alcohol use Alcohol use -[place] [facility] Work Phone: Start: 01-26-2024 Sex Assigned At N [facility] Other Start: 05-15-2019 End: 12-08-2023 Tobacco smoking status NHIS Never smoked tobacco (finding) [facility] Start: 1940 Sex Assigned At Female F [facility] Start: 01-26-2024 Tobacco use and exposure Smokeless tobacco non-user [facility] Work Phone: Start: 01-26-2024 Alcohol intake Current drinke r of alcohol (finding) [facility] Work Phone: Start: 01-26-2024 Alcohol Comment monthly [facility] Work Phone: Start: 1940 Sex Assigned At Not on file [facility] Work Phone: Start: 01-16-2024 End: 01-26-2024 Exposure to SARS-CoV-2 (event) Not sure [facility] Medical Equipment Procedure Code Equipment Code Equipment Origin al Text Equipment Identifier Dates Arthroplasty, hip, bipolar Metallic femoral head prosthesis ()[id number] FDA Start: 10-12-2023 Arthroplasty, hip, bipolar Coated hip femur prosthesis, modular ()[id number] FDA Start: 10-12-2023 Start: 11-18-2023 Blood Sugar Diagnostic (Onetouch Ultra Test) strip Start: 01-04-2024 Lancets (Onetouc h Delica Plus Lancet) 30 gauge misc Start: 01-04-2024 Blood Sugar Diagnostic (Onetouch Ultra Test) strip Start: 01-04-2024 Lancets (Onetouc h Delica Plus Lancet) 30 gauge misc Start: 01-04-2024 Blood Sugar Diagnostic (Onetouch Ultra Test) strip Start: 01-04-2024 Lancets (Onetouc h Delica Plus Lancet) 30 gauge misc Start: 01-04-2024 Blood Sugar Diagnostic (Onetouch Ultra Test) strip Start: 01-04-2024 Lancets (Onetouc h Delica Plus Lancet) 30 gauge misc Start: 01-04-2024 Blood Sugar Diagnostic (Onetouch Ultra Test) strip Start: 01-04-2024 Lancets (Onetouc h Delica Plus Lancet) 30 gauge misc Start: 01-04-2024 Blood Sugar Diagnostic (Onetouch Ultra Test) strip Start: 01-04-2024 Lancets (Onetouc h Delica Plus Lancet) 30 gauge misc Start: 01-04-2024 Goals Date Patient Goal Desired Activity /State Functional Status Date Assessment Result Facility 11-03-2023 Functional status Patient is Pro gressing Toward Baseline [facility] Work Phone: 10-15-2023 Functional status Patient at Baseline [facility] Work Phone: Mental Status Date Assessment Result Facility 11-03-2023 Cognitive function Cognitive Sta tus Patient at Baseline [facility] Work Phone: 10-15-2023 Cognitive function Cognitive Sta tus Patient at Baseline [facility] Work Phone: Clinical Notes 11-23-2022 to 01-26-2024 Yusuf Hayward MD - 01/26/2024 1:00 PM EDTPatient Instructions Note Date & Type Note Facility 01-26-2024 History of Presen t illness Narrative Subjective Heidi Palmer is a 83 y.o. female Chief Complaint Annual Exam HPI Patient returns in follow-up of problems as noted. She denies angina CHF or arrhythmia symptomatology. She has noticed symptoms that preceded her original diagnosis and subsequent coronary intervention. Control of risk factors appears acceptable. We know she is not on aspirin and we suggest that she initiate aspirin because of its benefits not only for cardiovascular disease but also diabetes. She understands and agrees. We did advocate the merits of a heart smart diet. She was congratulated on her maintenance of ideal body mass index. Vitals: 01/26/24 1338 BP: 120/80 BP Location: Right arm Patient Position: Sitting Pulse: 64 Weight: 62.2 kg (137 lb 3.2 oz) Height: 1.651 m (5' 5 ) Objective Physical Exam Constitutional: Appearance: Normal appearance. HENT: Nose: Nose normal. Neck: Vascular: No carotid bruit. Cardiovascular: Rate and Rhythm: Normal rate. Pulses: Normal pulses. Heart sounds: Normal heart sounds. Pulmonary: Effort: Pulmonary effort is normal. Abdominal: General: Bowel sounds are normal. Palpations: Abdomen is soft. Musculoskeletal: General: Normal range of motion. Cervical back: Normal range of motion. Right lower leg: No edema. Left lower leg: No edema. Skin: General: Skin is warm and dry. Neurological: General: No focal deficit present. Mental Status: She is alert. Psychiatric: Mood and Affect: Mood normal. Behavior: Behavior normal. Thought Content: Thought content normal. Judgment: Judgment normal. Allergies Metformin, Oxycodone, and Penicillins Current Medications Current Outpatient Medications: atorvastatin (Lipitor) 80 mg tablet, Take 1 tablet (80 mg) by mouth once daily., Disp: , Rfl: clindamycin (Cleocin) 150 mg capsule, Take 1 capsule (150 mg) by mouth 3 times a day., Disp: , Rfl: furosemide (Lasix) 40 mg tablet, Take 1 tablet (40 mg) by mouth once daily., Disp: 90 tablet, Rfl: 3 Klor-Con M10 10 mEq ER tablet, Take 1 tablet (10 mEq) by mouth once daily., Disp: , Rfl: Lantus Solostar U-100 Insulin 100 unit/mL (3 mL) pen, , Disp: , Rfl: levothyroxine (Synthroid, Levoxyl) 50 mcg tablet, Take 1 tablet (50 mcg) by mouth once daily., Disp: , Rfl: sennosides-docusate sodium (Juliana-Colace) 8.6-50 mg tablet, Take 2 tablets by mouth once daily., Disp: , Rfl: spironolactone (Aldactone) 25 mg tablet, Take 1 tablet (25 mg) by mouth 2 times a day., Disp: , Rfl: zolpidem (Ambien) 10 mg tablet, Take by mouth., Disp: , Rfl: spironolactone (Aldactone) 25 mg tablet, TAKE 1 TABLET TWICE A DAY, Disp: 180 tablet, Rfl: 3 Assessment/Plan 1. Coronary artery disease involving [place] coronary artery of [place] heart without angina pectoris Patient has not the symptoms of coronary disease that preceded her original diagnosis. Because of this we believe her CAD to be stable 2. Essential hypertension, benign Review of treatment demonstrates good control 3. History of PTCA A durable result has been achieved 4. Mixed hyperlipidemia Review of treatment demonstrates good control 5. Edema, unspecified type Trivial edema. No significant recurrence. Because of this we will continue as is. Previous interruptions and diuretics have resulted in significant edema. She and her daughter understand to continue diuretics and call if weight gain occurs 6. Never smoked cigarettes Noted Scribe Attestation By signing my name below, IRain LPN, Scribernie attest that this documentation has been prepared under the direction and in the presence of Yusuf Hayward MD. Provider Attestation - Scribe documentation All medical record entries made by the Scribe were at my direction and personally dictated by me. I have reviewed the chart and agree that the record accurately reflects my personal performance of the history, physical exam, discussion and plan. documented in this encounter [facility] Work Phone: 01-26-2024 Instructions Rain Michaud LPN - 01/26/2024 1:00 PM EDT Please bring all medicines, vitamins, and herbal supplements with you when you come to the office. Prescriptions will not be filled unless you are compliant with your follow up appointments or have a follow up appointment scheduled as per instruction of your physician. Refills should be requested at the time of your visit. Fall Prevention Education Given. documented in this encounter [facility] Work Phone: 12-15-2023 Evaluation note Encounter Date Diagnosis Assessment Notes Dec, Type 2 diabetes mellitus with hyperglycemi a, without long-term current use of insulin (ICD-10 - E11.65) Heidi and her Chcfqzof-hn-Rob, Dee came in today for download and evaluation of her Rocio report. Heidi's average BG was 194, GMi 8.0%, Time in range 44%, high 39%, very high 17%, and 0% low. Heidi is afraid to use the Humalog Corrective scale and her DIL said that it is too complex. We discussed this at length and went over multiple examples. Heidi had trouble openning her Rocio Diana but otherwise was able to select a dose without issue. She was encouraged to use it as needed. Dee asked at what BG level does she have to use the scale. I pointed out that it starts at >150 but if they are not comfortable with this starting point then they should at least try to use it if Heidi's BG is >200 or 250 if they are very uncomfortable with using it. Heidi has been started on Spironolactone and has been having leg swelling. Per Tova Diaz APRN we will discontinue Pioglitizone. Alfreds BG is declining over long periods of time which indicates overbasalization . Tova Mays and I discussed starting Soliqua. Tova Roberts APRN ordered the patient to discontinue Lantus and start Soliqua 15 units daily. 75 minutes were spent evaluating the patient's report, discussing its findings and making medication changes by Florence Rose RN, [facility]. Dec, Tova Alemanorah Dorian 12/15/2023 04:31:21 PM > noted while patient on site, documentation reviewed and agree [employer] Other 01-11-2024 Evaluation note* Encounter Date Diagnosis Assessment Notes Treatment Notes Treatment Clinical Notes Nov, Type 2 diabetes mellitus with hyperglycemia, without long-term current use of insulin (ICD-10 - E11.65) 1. Uncontrolled, a Type 2 diabetes with A1c of 9.8%, GMI implies improvement at 6.0% 2. Improved control with glycemia today, looking for decreased complexity of regime, hopeful to get to once daily injections. We will maintain Lantus at 25 units once daily, instructed to hold a.m. dose the day of PET scan intake after. We will maintain Humalog 1 unit for every 50 mg/dL above goal. Written instructions were given, avoid insulin to carb ratio for simplicity. We discussed carb conscious at dinner the night before PET scan, treating blood sugar with ISS and 1/ at HS. If at bedtime blood sugar within normal limits expect a.m. 815 blood sugar to be under 200. This is the goal so that the PET scan can be done. When we return to clinic after this, we will decrease complexity of his regime, consider Soliqua versus other modalities of prandial blood glucose assistance. 3. Patient is alert, oriented and receptive to making changes or counseling. Notes: Seen for an assessment of current glucose pattern, changes in treatment plan, counseling and coordination of care related to diabetes, risks, and benefits of treatment, medications, side effects. Given handouts to reinforce concepts reviewed during counseling, see scanned notes. TOPICS REVIEWED: 1. Time was spent reviewing: a. Basic concepts of diabetes, progressive beta cell , concepts of basal/bolus/correc tive insulin requirements. b. Nutrition: Concepts of healthy diet, encouraged to decrease saturated fat in diet and increase non-starchy vegetables and fruits in diet. BMI: Pt. needs to select one small change to decrease caloric intake or increase physical activity to help decrease weight. c. Correct treatment of hypoglycemia, carry a glucose source at all times on your person, in vehicles, and at bedside. Can use glucose tablets/4, four ounces of pop or juice equal to 15 G of carbohydrate. Blood glucose should be 100 mg/dl or higher when driving. d. ADA glucose goals for age and medical complexity reviewed e. Patient questions addressed 2. Activity/exercise: Encouraged to start any form of physical activity. Start low level and increase slowly to a minimal goal of 150 minutes/week. Limit activity to what is allowed by other issues such as cardiac, pulmonary or orthopedic restrictions. 3. Standards of care: Reminded to have an annual dilated eye exam, A1C every 3 months, urine testing for microalbumin once/year, check feet daily and report any cuts or sores that do not appear to be healing. 4. Meter: Plan to check blood glucose: Please check blood glucose levels 1-4 times/day. Back to back meals reveal effectiveness of bolus dosing. 5. [facility]. Contact office if any issues or concerns with patterns of hypoglycemia, hyperglycemia, or diabetes medication issues. 6. Prescriptions: 11-18-2023 uses [facility] Nov, Vitamin D deficiency (ICD-10 - E55.9) Interval surveillance Nov, Hyperlipidemia, unspecified hyperlipidemia type (ICD-10 - E78.5) Consider due to ADA guidelines Nov, Hypertension, unspecified type (ICD-10 - I10) Discussed goal less than 130/80 Nov, Dietary counseling and surveillance (ICD-10 - Z71.3) Nov, BMI 26.0-26.9,adult (ICD-10 - Z68.26) Nov, Other I have spent 30 minutes with this patient and over 50% of the visit was counseling done by myself, Tova BECKETT. [employer] Other 01-09-2024 Evaluation note* Encounter Date Diagnosis Assessment Notes Treatment Notes Treatment Clinical Notes Nov, Closed fracture of neck of right femur with routine healing, subsequent encounter (ICD-10 - S72.001D) Radiographs reviewed with patient and company. He is progressing well from the surgery. In regards to the skin break down on the lower extremity, instructed on importance of elevation of the leg to decrease swelling. Also instructed on regular motion of the foot and ankle to keep good blood flow to the area for healing. Keep area of skin injury clean, cover as needed with nonstick dressing but also leave open to air when able. Monitor for signs and symptoms of infection. Continue gentle motion and strengthening exercises with the hip. Call with questions/concerns . Nov, History of right hip hemiarthroplasty (ICD-10 - Z96.641) [employer] Other 01-02-2024 Evaluation note* Encounter Date Diagnosis Assessment Notes Treatment Notes Treatment Clinical Notes Nov, Insomnia, unspecified type (ICD-10 - G47.00) Pt denies oversedation with this med. She understands it increases her risk for falls, but she has been on it for some time. Nov, Type 2 diabetes mellitus with hyperglycemia, without long-term current use of insulin (ICD-10 - E11.65) Appt w diabetes clinic on 11/22 - daughter will call and try to move it up Nov, Hypertension, unspecified type (ICD-10 - I10) Chronic and stable Nov, Closed fracture of right hip, initial encounter (ICD-10 - S72.001A) Discussed followup next week She has not heard from HH. Discussed holiday etc Nov, Healing decubitus ulcer, stage 1 (ICD-10 - L89.91) request to monitor [employer] Other 12-07-2023 Progress note Author Chin Rodarte [facility] October 14, 2023 12:34pm Note Date/Time October 14, 2023 1 2:34pm [facility] [address] [place] [address] Hospitalist Progress Note Signed Patient: Heidi Palmer MR#: [id number] : 1940 Acct:[id number] Age/Sex: 83 / F Adm Date: 3 Loc: Room: [address] [place] [address] Type: ADM IN Attending Dr: Chni Rodarte MD Copies to: ~ Date of Service: 10/14/2023 Subjective Subjective Narrative: Seen and examined C/w mild Hip pain No SOB or chest pain Exam Physical Exam Vital Signs: Temp Pulse Resp BP Pulse Ox O2 Del Method O2 Flow Rate 97.4 F L 76 16 117/64 94 L Room Air 1 10/14/23 08:20 10/14/23 08:20 10/14/23 08:20 10/14/23 08:20 10/14/23 08:20 10/14/23 08:25 10/13/23 15:36 Narrative: General patient laying in bed in no acute distress alert awake oriented x3 HEENT PERRLA Neck supple no JVD no carotid bruit CVS S1-S2 regular rate and rhythm no murmur no gallop Chest clear to auscultation percussion Abdomen soft bowel sounds normoactive no rebound no guarding Extremities no stenosis no clubbing no edema Musculoskeletal exam normal no joint effusion Neurologic exam oriented x3 alert awake no focal left Psychiatry: Normal insight and judgment Objective Lab Results 10/14/23 06:47 10/14/23 06:47 Microbiology Results Microbiology 10/12/23 16:10 Urine - Joseph Catheter Urine Culture - Preliminary No Growth 1 Day Meds Allergies and Active Meds Allergies cilostazol Allergy (Verified 10/11/23 13:33) unknown Penicillins Allergy (Verified 10/11/23 13:33) Anaphylaxis metformin Adverse Reaction (Verified 10/11/23 13:33) Vomiting oxycodone Adverse Reaction (Verified 10/11/23 17:33) Hallucinating Active Meds: Active Medications Generic Name Dose Route Start Last Admin Trade Name Freq PRN Reason Stop Dose Admin Acetaminophen 650 mg 10/11/23 16:47 Acetaminophen 325 Mg Tablet PO 10/10/24 16:46 Q6HR PRN Pain Scale 1 - 3 or fever Aspirin 81 mg 10/12/23 09:00 10/14/23 08:57 Aspirin 81 Mg Tablet. PO 10/11/24 08:59 81 mg DAILY ILIANA Administration Atorvastatin Calcium 80 mg 10/13/23 22:00 10/13/23 21:45 Atorvastatin 80 Mg Tablet PO 10/12/24 21:59 80 mg QHS ILIANA Administration Bisacodyl 10 mg 10/11/23 16:47 Bisacodyl 5 Mg Tablet. PO 10/10/24 16:46 DAILY PRN Constipation Cyclosporine 1 drops 10/13/23 09:00 10/14/23 08:57 Cyclosporine 0.05% Op Emulsion 1 Drops (0.4 Ml Droperette) EYE-BOTH 10/12/2408:59 1 drops Q12HR ILIANA Administration Docusate Sodium 100 mg 10/11/23 16:47 Docusate 100 Mg Capsule PO 10/10/24 16:46 BID PRN Constipation Docusate Sodium 100 mg 10/12/23 21:00 10/14/23 09:57 Docusate 100 Mg Capsule PO 10/11/24 20:59 100 mg BID ILIANA Administration Enoxaparin Sodium 40 mg 10/12/23 10:00 10/14/23 09:57 Enoxaparin 40 Mg/0.4 Ml Syringe SUBCUT 10/11/24 09:59 40 mg DAILY@10 ILIANA Administration Levofloxacin 500 mg in 100 mls @ 100 mls/hr 10/12/23 17:53 10/14/23 09:55 Levaquin IV Infused DAILY [facility] Infusion Insulin Aspart 0 units 10/13/23 22:00 10/14/23 12:16 Insulin Aspart 300 Units/3 Ml Insuln.Pen SUBCUT 10/12/24 21:59 8 units ACHS [facility] Administration Protocol Insulin Glargine 8 units 10/13/23 12:00 10/14/23 09:01 Insulin Glargine 300 Units/3 Ml Insuln.Pen SUBCUT 10/12/24 11:59 8 units DAILY ILIANA Administration Levothyroxine Sodium 50 mcg 10/12/23 06:30 10/14/23 06:08 Levothyroxine 50 Mcg Tablet PO 10/11/24 06:29 50 mcg DAILY@0630 [facility] Administration Lidocaine HCl 0.1 ml 10/12/23 10:39 Lidocaine 1% 50 Ml Vial INTRADERMA PREOP PRN Venipuncture x 1 Dose Liraglutide 18 mg 10/12/23 09:00 Liraglutide 18 Mg/3 Ml Pen.Injctr SUBCUT 10/11/24 08:59 DAILY ILIANA Melatonin 5 mg 10/11/23 16:47 Melatonin 5 Mg Tablet PO 10/10/24 16:46 QHS PRN Insomnia Ondansetron HCl 4 mg 10/11/23 16:47 Ondansetron 4 Mg/2 Ml Vial IV-PUSH 10/10/24 16:46 Q8H PRN Nausea And Vomiting Oxycodone/Acetaminophen 1 tab 10/14/23 12:31 Oxycodone/Acetaminophen 5-325 Mg Tablet PO Q4H PRN Pain Scale 4 - 7 Pantoprazole Sodium 40 mg 10/12/23 09:00 10/14/23 08:57 Pantoprazole 40 Mg Tablet.Dr PO 10/11/24 08:59 40 mg DAILY ILIANA Administration Potassium Chloride 10 meq 10/12/23 09:00 10/14/23 08:57 Potassium Chloride Er 10 Meq Tablet.Er PO 10/11/24 08:59 10 meq DAILY ILIANA Administration Propranolol HCl 160 mg 10/12/23 09:00 10/14/23 08:57 Propranolol Sa.24hr 80 Mg Capsule PO 10/11/24 08:59 160 mg DAILY ILIANA Administration Sodium Chloride 0 ml 10/11/23 13:31 10/14/23 08:45 Sodium Chloride 0.9 % 10 Ml Syringe IV-PUSH 10/10/24 13:30 20 ml PRN PRN Administration Flush Zolpidem Tartrate 10 mg 10/11/23 22:00 10/13/23 21:48 Zolpidem 10 Mg Tablet PO 04/08/24 21:59 10 mg QHS PRN Administration Sleep A&P - Hospitalist Assessment/Plan (1) Closed subcapital fracture of neck of right femur: (2) Fall: (3) Hypothyroid: (4) Hyperlipidemia: (5) Diabetes: (6) CAD (coronary artery disease): Plan 83-year-old white female with past medical history of hypertension, hyperlipidemia, diabetes type 2, CAD, history of breast cancer, and hypothyroidism who presented to emergency room with mechanical fall. She tripped and fell over a couple while she living a doctor appointment. She landed on her right side. X-ray showing hip fracture. Orthopedic asked to admit the patient under medicine service. She did not loss her consciousness she denies any chest pain or shortness of breath. She denies having abdominal pain. No nausea vomiting. No diarrhea. Patient admitted to the hospital for further management. A/P Mechanical fall subcapital fracture of the neck of the right femur Seen and examined S/p ORIF of right femur Clinically stable C/o pain Percocet PO PRN every 4 hours PT OT evaluation Lung mass: History of breast cancer CT chest Masslike areas of consolidation are noted along with noncalcified nodules bilaterally as measured above. While these may be infectious in nature, the patient has a history of breast cancer. Metastatic disease is not excluded. There is a small left-sided pleural effusion. There is mild cardiomegaly. There is evidence of previous right hemithyroidectomy and left-sided mastectomy. Oncology was consulted Followed by outpatient with PET scan and biopsy Hypertension: Lisinopril Diabetes type 2: Accu-Chek ACHS/insulin sliding scale hold Januvia for now, willresume at Hyperlipidemia:Lipitor Hypothyroidism: Synthroid DVT prophylaxis: Resume Lovenox SC when ok with ortho Plan to dc to Acute rehab tomorrow Documented By: Chin Rodarte MD 10/14/23 1233 Signed By: <Electronically signed by Chin Rodarte MD> 10/14/23 1234 [facility] Work Phone: [phone]) 858-717412-06-2023 Consult note Author Last [place] [facility] October 13, 2023 2:52pm Note Date/Time October 13, 2023 1 :18pm [facility] [address] [place] [address] Physiatry (Rehab) Consult Note Signed Patient: Heidi Palmer MR#: [id number] : 1940 Acct:[id number] Age/Sex: 83 / F Adm Date: 3 Loc: Room: [address] [place] [address] Type: ADM IN Attending Dr: Chin Rodarte MD Copies to: MD Last Hernandes MD Marcia E Braun, MD~ HPI Consult Date: 10/13/23 Requesting Physician: Chin Rodarte MD Primary Care Provider: Mica Hook MD Consult Narrative Reason for consult: Evaluation for inpatient rehab HPI: Ms. Palmer is a 83 year old female who presented to the ED after a mechanical fall onto her right side after tripping while leaving a doctor's appointment. She is day 1 s/p right hip arthroplasty for a femoral neck fracture. She did notlose consciousness. She did not have dizziness, chest pain, or shortness of breath at the time of the fall. Chest CT demonstrated masslike areas of consolidation with noncalcified nodules bilaterally. Patient does have a prior history of breast cancer. Medical history is also significant for hypertension, hyperlipidemia, DM type II, and CAD. She lives alone in a 2-story home with 13 steps inside and 3 steps to get inside. Prior to her hospital stay, she was able to perform her own ADL's and IADL's. She occasionally uses a cane to ambulate. She is currently dependent for most OT activities. Pending PT evaluation. Patient was seen and evaluated today.Resting comfortably in bed. Admits to pain in the right leg. Interested in inpatient rehab. Review of Systems Review of Systems All other systems reviewed & are negative unless noted below or in HPI [facility] Medical History Abnormal breast biopsy Breast cancer CAD (coronary artery disease) Diabetes DJD (degenerative joint disease) Hyperlipidemia Hypothyroid Lump of right breast Surgical History H/O elbow surgery left elbow History of ankle surgery History of ankle surgery History of cardiac cath with stents x 7 History of left mastectomy Hx of tonsillectomy Family History Father Diabetes Enlarged heart Mother CAD (coronary artery disease) Sister Lung cancer Social History Smoking Status: Never smoker Substance Use Type: None Meds Medications and Allergies Allergies cilostazol Allergy (Verified 10/11/23 13:33) unknown Penicillins Allergy (Verified 10/11/23 13:33) Anaphylaxis metformin Adverse Reaction (Verified 10/11/23 13:33) Vomiting oxycodone Adverse Reaction (Verified 10/11/23 17:33) Hallucinating Home Medications aspirin 81 mg capsule 81 mg PO DAILY 10/11/23 [History Confirmed 10/11/23] atorvastatin 80 mg tablet (Lipitor) 80 mg PO QHS 10/11/23 [History Confirmed 10/11/23] ciprofloxacin HCl 500 mg tablet 500 mg PO BID 10/11/23 [History Confirmed 10/11/23] cyclosporine 0.05 % eye drops in a dropperette (Restasis) 1 drp Eye-Both Q12H 10/11/23 [History Confirmed 10/11/23] insulin degludec 100 unit/mL (3 mL) subcutaneous pen (Tresiba FlexTouch U-100 insulin) 10 unit subcut DAILY 10/11/23 [History Confirmed 10/11/23] levothyroxine 50 mcg tablet 50 mcg PO DAILY 10/11/23 [History Confirmed 10/11/23] liraglutide 0.6 mg/0.1 mL (18 mg/3 mL) subcutaneous pen injector (Victoza 2- Sterling)18 mg subcut DAILY 10/11/23 [History Confirmed 10/11/23] omeprazole 20 mg capsule,delayed release 20 mg PO DAILY 10/11/23 [History Confirmed 10/11/23] potassium chloride 10 mEq tablet,extended release(part/cryst) (Klor-Con M) 10 meq PO DAILY 10/11/23 [History Confirmed 10/11/23] propranolol 160 mg capsule,24 hr,extended release 160 mg PO DAILY 10/11/23 [History Confirmed 10/11/23] sitagliptin phosphate 100 mg tablet (Januvia) 100 mg PO DAILY 10/11/23 [History Confirmed 10/11/23] zolpidem 5 mg tablet 10 mg PO QHS 10/11/23 [History Confirmed 10/11/23] Exam Physical Exam Vital Signs: Temp Pulse Resp BP Pulse Ox O2 Del Method O2 Flow Rate 97.9 F 64 16 132/70 96 Nasal Cannula 1 10/13/23 11:18 10/13/23 11:18 10/13/23 11:18 10/13/23 11:18 10/13/23 11:18 10/13/23 11:18 10/13/23 11:18 Const Orientation: alert and awake Other: Sitting reclined in chair with daughter present. Answers all questions. HEENT Head: normocephalic and atraumatic Resp Auscultation: clear to auscultation bilaterally, no rales, no rhonchi and no wheezes Cardio Rate: regular rate Rhythm: regular rhythm Heart Sounds: no gallops, no murmurs and no rubs GI Inspection: normal to inspection Palpation: soft Neuro General: patient alert, patient awake, moves all extremities and CN's II-XI intact bilaterally (grossly) Other: 3/5 strength in right lower extremity. Results Labs Labs: Laboratory Results - last 24 hr 10/12/23 10/12/23 10/12/23 13:05 14:51 16:10 Corrected WBC Uncorrected WBC Count RBC Hgb Hct MCV MCH MCHC RDW Plt Count MPV Neut % (Auto) Lymph % (Auto) [place] % (Auto) Eos % (Auto) Baso % (Auto) Nucleat RBC Rel Count Neut # (Auto) Lymph # (Auto) [place] # (Auto) Eos # (Auto) Baso # (Auto) Lymphocytes % Monocytes % Segmented Neutrophils Reactive Lymphocytes Platelet Estimate Giant Platelets Plt Morphology Comment RBC Morphology Polychromasia PHA Creatinine Clear Sodium Potassium Chloride Carbon Dioxide Anion Gap BUN Creatinine Est GFR (CKD-EPI) Glucose POC Glucose 197 207 POC Glucose Comment Glu2: cleaned meter Calcium Urine Color Dark yellow A Urine Appearance Turbid A Urine pH 5.5 Ur Specific [place] 1.031 H Urine Protein 300 H Urine Glucose (UA) Normal Urine Ketones Trace H Urine Occult Blood 3+ H Urine Nitrite Positive H Urine Bilirubin 1+ H Urine Urobilinogen Normal Ur Leukocyte Esterase 3+ H Urine RBC Innumerable H Urine WBC Innumerable H Ur Squamous Epith Cells 1-2 Urine Bacteria None seen Hyaline Casts 0-8 10/12/23 10/12/23 10/13/23 16:37 20:41 06:45 Corrected WBC Uncorrected WBC Count RBC Hgb Hct MCV MCH MCHC RDW Plt Count MPV Neut % (Auto) Lymph % (Auto) [place] % (Auto) Eos % (Auto) Baso % (Auto) Nucleat RBC Rel Count Neut # (Auto) Lymph # (Auto) [place] # (Auto) Eos # (Auto) Baso # (Auto) Lymphocytes % Monocytes % Segmented Neutrophils Reactive Lymphocytes Platelet Estimate Giant Platelets Plt Morphology Comment RBC Morphology Polychromasia PHA Creatinine Clear Sodium Potassium Chloride Carbon Dioxide Anion Gap BUN Creatinine Est GFR (CKD-EPI) Glucose POC Glucose 151 236 299 POC Glucose Comment Glu2: cleaned meter Calcium Urine Color Urine Appearance Urine pH Ur Specific [place] Urine Protein Urine Glucose (UA) Urine Ketones Urine Occult Blood Urine Nitrite Urine Bilirubin Urine Urobilinogen Ur Leukocyte Esterase Urine RBC Urine WBC Ur Squamous Epith Cells Urine Bacteria Hyaline Casts 10/13/23 10/13/23 08:16 08:16 Corrected WBC 18.2 H Uncorrected WBC Count 18.2 H RBC 4.47 Hgb 13.4 Hct 41.1 MCV 91.9 MCH 30.1 MCHC 32.7 RDW 14.1 Plt Count 246 MPV 9.3 Neut % (Auto) N/A Lymph % (Auto) N/A [place] % (Auto) N/A Eos % (Auto) N/A Baso % (Auto) N/A Nucleat RBC Rel Count N/A Neut # (Auto) N/A Lymph # (Auto) N/A [place] # (Auto) N/A Eos # (Auto) N/A Baso # (Auto) N/A Lymphocytes % 10 L Monocytes % 6 Segmented Neutrophils 84 H Reactive Lymphocytes 1 Platelet Estimate Normal Giant Platelets 1 Plt Morphology Comment Normal RBC Morphology N/A Polychromasia Slight PHA Creatinine Clear 47.52 Sodium 131 L Potassium 4.9 Chloride 95 L Carbon Dioxide 27.2 Anion Gap 13.7 BUN 20 Creatinine 0.77 D Est GFR (CKD-EPI) > 60.0 Glucose 339 H POC Glucose POC Glucose Comment Calcium 9.5 Urine Color Urine Appearance Urine pH Ur Specific [place] Urine Protein Urine Glucose (UA) Urine Ketones Urine Occult Blood Urine Nitrite Urine Bilirubin Urine Urobilinogen Ur Leukocyte Esterase Urine RBC Urine WBC Ur Squamous Epith Cells Urine Bacteria Hyaline Casts Additional Results Results Comment: I reviewed clinical lab tests, radiology reports and obtained and summated medical records and have ordered follow up lab tests and imaging studies as needed for rehabilitation care. Functional Status Current Level of Function Narrative: Patient demonstrates decreased strength, endurance, and impaired functional ROM/reach as well as ADL tasks and functional transfers which is decreased from her baseline. Assessment/Plan (1) Closed subcapital fracture of neck of right femur: Code(s): S72.011A - Unspecified intracapsular fracture of right femur, initial encounter for closed fracture Status: Acute (2) Fall: Code(s): W19.XXXA - Unspecified fall, initial encounter Status: Acute (3) Lung mass: Code(s): R91.8 - Other nonspecific abnormal finding of lung field Status: Acute (4) History of left breast cancer: Code(s): Z85.3 - Personal history of malignant neoplasm of breast Status: Acute (5) Diabetes: Code(s): E11.9 - Type 2 diabetes mellitus without complications Status: Acute (6) CAD (coronary artery disease): Code(s): I25.10 - Atherosclerotic heart disease of [place] coronary artery without angina pectoris Status: Acute (7) Hyperlipidemia: Code(s): E78.5 - Hyperlipidemia, unspecified Status: Acute (8) Hypothyroid: Code(s): E03.9 - Hypothyroidism, unspecified Status: Acute (9) Postoperative pain: Code(s): G89.18 - Other acute postprocedural pain Status: Acute (10) Impaired mobility and activities of daily living: Code(s): Z74.09 - Other reduced mobility; Z78.9 - Other specified health status Status: Acute Plan This is an 83-year-old female with past medical history of breast cancer who presented to the hospital after a fall was found to have a right femur fracture. She is now status post right hip hemiarthroplasty for which she is weightbearing as tolerated. On evaluation the patient did have a CT scan with concerns for a lung mass. Patient was seen by heme-onc with plan for outpatientPET CT and biopsy of the RUL as well as tumor markers. The patient is noted to increased blood glucose on labs and is still requiring IV demerol. Prior to admission to the rehab unit patient will need to be off IV pain medications for at least 24 hours. Thank you for this consult. Plan: I completed a substantive portion of this encounter, the medical decision makingportion of this note in its entirety, including Allied health note review, nursing note review, healthcare management consultant note review, discussion with nursing and case management, and more than 50% of my time was spent on counseling and coordination of care, time spent 40 minutes Patient was personally seen by me, Dr. Boston, on the day of encounter, reviewed the history and the relevant portions of the chart, including current orders, allied health and healthcare management consultant notes, labs/imaging and performed crews elements of exam and I formulated the plan of care and facilitated the medical decision making. Documented By: Last Boston MD [id number] Signed By: <Electronically signed by Last Boston MD> 10/13/23 1452 [facility] Work Phone: 1(331) 984-959712-06-2023 Progress note Author Chin Rodarte [facility] [place] October 13, 2023 11:53am Note Date/Time October 13, 2023 1 1:53am [facility] [address] [place] [address] Hospitalist Progress Note Signed Patient: Heidi Palmer MR#: [id number] : 1940 Acct:[id number] Age/Sex: 83 / F Adm Date: 3 Loc: Room: [address] [place] [address] Type: ADM IN Attending Dr: Chin Rodarte MD Copies to: ~ Date of Service: 10/13/2023 Subjective Subjective Narrative: Seen and examined Sitting in chair Clinically stable C/o Hip pain No SOB or chest pain Exam Physical Exam Vital Signs: Temp Pulse Resp BP Pulse Ox O2 Del Method O2 Flow Rate 97.9 F 64 16 132/70 96 Nasal Cannula 1 10/13/23 11:18 10/13/23 11:18 10/13/23 11:18 10/13/23 11:18 10/13/23 11:18 10/13/23 11:18 10/13/23 11:18 Narrative: General patient laying in bed in no acute distress alert awake oriented x3 HEENT PERRLA Neck supple no JVD no carotid bruit CVS S1-S2 regular rate and rhythm no murmur no gallop Chest clear to auscultation percussion Abdomen soft bowel sounds normoactive no rebound no guarding Extremities no stenosis no clubbing no edema Musculoskeletal exam normal no joint effusion Neurologic exam oriented x3 alert awake no focal left Psychiatry: Normal insight and judgment Objective Lab Results 10/13/23 08:16 10/13/23 08:16 Meds Allergies and Active Meds Allergies cilostazol Allergy (Verified 10/11/23 13:33) unknown Penicillins Allergy (Verified 10/11/23 13:33) Anaphylaxis metformin Adverse Reaction (Verified 10/11/23 13:33) Vomiting oxycodone Adverse Reaction (Verified 10/11/23 17:33) Hallucinating Active Meds: Active Medications Generic Name Dose Route Start Last Admin Trade Name Freq PRN Reason Stop Dose Admin Acetaminophen 650 mg 10/11/23 16:47 Acetaminophen 325 Mg Tablet PO 10/10/24 16:46 Q6HR PRN Pain Scale 1 - 3 or fever Aspirin 81 mg 10/12/23 09:00 10/13/23 09:39 Aspirin 81 Mg Tablet. PO 10/11/24 08:59 81 mg DAILY ILIANA Administration Atorvastatin Calcium 80 mg 10/13/23 22:00 Atorvastatin 80 Mg Tablet PO 10/12/24 21:59 QHS ILIANA Bisacodyl 10 mg 10/11/23 16:47 Bisacodyl 5 Mg Tablet. PO 10/10/24 16:46 DAILY PRN Constipation Cyclosporine 1 drops 10/13/23 09:00 10/13/23 09:39 Cyclosporine 0.05% Op Emulsion 1 Drops (0.4 Ml Droperette) EYE-BOTH 10/12/2408:59 1 drops Q12HR ILIANA Administration Docusate Sodium 100 mg 10/11/23 16:47 Docusate 100 Mg Capsule PO 10/10/24 16:46 BID PRN Constipation Docusate Sodium 100 mg 10/12/23 21:00 10/13/23 09:39 Docusate 100 Mg Capsule PO 10/11/24 20:59 100 mg BID ILIANA Administration Enoxaparin Sodium 40 mg 10/12/23 10:00 10/13/23 09:44 Enoxaparin 40 Mg/0.4 Ml Syringe SUBCUT 10/11/24 09:59 40 mg DAILY@10 ILIANA Administration Lactated Ringer's 1,000 mls @ 75 mls/hr 10/12/23 15:00 10/13/23 09:42 Lactated Ringers IV 10/11/24 14:59 75 mls/hr .[id number] ILIANA Administration Levofloxacin 500 mg in 100 mls @ 100 mls/hr 10/12/23 17:53 10/13/23 10:25 Levaquin IV 100 mls/hr DAILY ILIANA Administration Insulin Aspart 1 units 10/12/23 16:30 10/13/23 09:38 Insulin Aspart 300 Units/3 Ml Insuln.Pen SUBCUT 10/11/24 16:29 1 units ACHS [facility] Administration Protocol Levothyroxine Sodium 50 mcg 10/12/23 06:30 10/13/23 05:33 Levothyroxine 50 Mcg Tablet PO 10/11/24 06:29 50 mcg DAILY@0630 ILIANA Administration Lidocaine HCl 0.1 ml 10/12/23 10:39 Lidocaine 1% 50 Ml Vial INTRADERMA PREOP PRN Venipuncture x 1 Dose Liraglutide 18 mg 10/12/23 09:00 Liraglutide 18 Mg/3 Ml Pen.Injctr SUBCUT 10/11/24 08:59 DAILY [facility] Melatonin 5 mg 10/11/23 16:47 Melatonin 5 Mg Tablet PO 10/10/24 16:46 QHS PRN Insomnia Meperidine HCl 25 mg 10/12/23 09:33 10/13/23 08:52 Meperidine Pf 25 Mg/Ml Vial IV-PUSH 25 mg Q3HR PRN Administration Pain Meperidine HCl 50 mg 10/12/23 09:33 Meperidine Pf 25 Mg/Ml Vial IV-PUSH Q3HR PRN Pain Morphine Sulfate 2 mg 10/11/23 16:47 10/12/23 20:00 Morphine Sulfate 2 Mg/Ml Vial IV-PUSH 2 mg Q4H PRN Administration Pain Scale 8 - 10 Ondansetron HCl 4 mg 10/11/23 16:47 Ondansetron 4 Mg/2 Ml Vial IV-PUSH 10/10/24 16:46 Q8H PRN Nausea And Vomiting Pantoprazole Sodium 40 mg 10/12/23 09:00 10/13/23 09:39 Pantoprazole 40 Mg Tablet.Dr PO 10/11/24 08:59 40 mg DAILY ILIANA Administration Potassium Chloride 10 meq 10/12/23 09:00 10/13/23 09:39 Potassium Chloride Er 10 Meq Tablet.Er PO 10/11/24 08:59 10 meq DAILY ILIANA Administration Propranolol HCl 160 mg 10/12/23 09:00 10/13/23 09:39 Propranolol Sa.24hr 80 Mg Capsule PO 10/11/24 08:59 160 mg DAILY ILIANA Administration Sodium Chloride 0 ml 10/11/23 13:31 10/12/23 21:25 Sodium Chloride 0.9 % 10 Ml Syringe IV-PUSH 10/10/24 13:30 10 ml PRN PRN Administration Flush Zolpidem Tartrate 10 mg 10/11/23 22:00 10/12/23 21:24 Zolpidem 10 Mg Tablet PO 04/08/24 21:59 10 mg QHS PRN Administration Sleep A&P - Hospitalist Assessment/Plan (1) Closed subcapital fracture of neck of right femur: (2) Fall: (3) Hypothyroid: (4) Hyperlipidemia: (5) Diabetes: (6) CAD (coronary artery disease): Plan 83-year-old white female with past medical history of hypertension, hyperlipidemia, diabetes type 2, CAD, history of breast cancer, and hypothyroidism who presented to emergency room with mechanical fall. She tripped and fell over a couple while she living a doctor appointment. She landed on her right side. X-ray showing hip fracture. Orthopedic asked to admit the patient under medicine service. She did not loss her consciousness she denies any chest pain or shortness of breath. She denies having abdominal pain. No nausea vomiting. No diarrhea. Patient admitted to the hospital for further management. A/P Mechanical fall subcapital fracture of the neck of the right femur Seen and examined S/p ORIF of right femur Clinically stable C/o pain PT OT evaluation Lung mass: Hisotry of breast cancer CT chest Masslike areas of consolidation are noted along with noncalcified nodules bilaterally as measured above. While these may be infectious in nature, the patient has a history of breast cancer. Metastatic disease is not excluded. There is a small left-sided pleural effusion. There is mild cardiomegaly. There is evidence of previous right hemithyroidectomy and left-sided mastectomy. Oncology was consulted Followed by outpatient with PET scan and biopsy Hypertension: Lisinopril Diabetes type 2: Accu-Chek ACHS/insulin sliding scale hold Januvia for now, willresume at Hyperlipidemia:Lipitor Hypothyroidism: Synthroid DVT prophylaxis: Resume Lovenox SC when ok with ortho Documented By: Chin Rodarte MD 10/13/23 1148 Signed By: <Electronically signed by Chin Rodarte MD> 10/13/23 1153 [facility] Work Phone: 1(564) 133-614512-06-2023 Consult note Author Tosha Patel [facility] [place] October 13, 2023 10:49am Note Date/Time October 13, 2023 1 0:37am [facility] [address] [place] [address] Hem/Onc Consult Note - IP Signed Patient: Heidi Palmer MR#: [id number] : 1940 Acct:[id number] Age/Sex: 83 / F Adm Date: 3 Loc: Room: [address] [place] [address] Type: ADM IN Attending Dr: Chin Rodarte MD Copies to: MD Mica Hernandes MD Mhd Yaser Al-Marrawi, MD~ HPI Consult Date: 10/13/2023 Requesting Provider: Chin Rodarte MD Reason for Consult: Bilateral lung mass especially in the right upper lung with a history of left breast cancer History of Present Illness: Heidi is 83-year-old nice lady with history of hypertension, hyperlipidemia, hypothyroidism who has osteoarthritis and fell on 10/11/2023 sustaining right femoral neck fracture required open reduction and internal fixation on 10/12/2023here at [facility] by orthopedic surgery. As part of the fall evaluation she had a CT of head neck chest x-rays of the bones in addition to the femoral she was found to have bilateral noncalcified lung nodules the largest of which is in the right upper lung. CAT scan of the chest was done on 10/11/2023 revealed the largest mass in the right upper lung 3.1 cm cannot rule out metastatic disease versus infections. For therefore oncology was consulted for further recommendations. As of 10/13/2023 morning when I saw her she was toolethargic little bit not very good historian but she stated that she had a left breast surgery probably at [facility] about 3035 years ago and she was inher 50s. She said that the surgeon who did the left mastectomy was Dr. Cesar who and replaced by Dr. Stark. She has not seen any medical oncology to her menorrhagia or needed any radiation or chemotherapy to her left breast cancer. She is not sure what stage she had however I spoke to her daughter Lyubov and called her son Ulices prior to the formation from her message. Her daughter told me to him what she remembers she had a left breast cancer probablywas early stage may be stage I required mastectomy. And had lymph node biopsieswhich probably was benign but she does not remember what type of breast cancer it was. 5 years later she had hemithyroidectomy for large thyroid gland but to her knowledge it was not cancerous. Her mom never smoked tobacco and does not drink alcohol but her sister The patient's sister had breast cancer and also lung cancer as well. No family history of colon cancer. Her mom lives alone but her son Ulices lives close by. The daughter Lyubov lives in [place]. Patient has not seen oncologist to her daughter's knowledge. In terms of the review of system patient denied any headaches or blurry vision or chest pain or shortness of breath or hemoptysis however she has some cough for couple of months. She denies any abdominal pain or nausea or vomiting or diarrhea or rectal bleed or melena or gross hematuria. Rest of the review of systems were reviewed and were negative. CT chest w con 10/11/2023 4:02 PM SIGN AND SYMPTOMS: Fall, right hip and knee pain, noncalcified nodules are notedin the right upper lobe on cervical spine CT suggestive of metastatic disease. CONTRAST: 90 mL of intravenous Isovue-300 TECHNIQUE: Multidetector CT axial slices of the chest were obtained with IV contrast. Multiplanar reformats were performed and viewed on a separate workstation and reviewed to further define anatomy and possible pathology. CT was performed with one or more of the following dose reduction techniques: Automated exposure control, adjustment of the mA and/or kV according to patient size, or use of iterative reconstruction technique. COMPARISON: Cervical spine CT from the same date. FINDINGS: Lower neck: There is right hemithyroidectomy. Vessels: Atherosclerotic changes are present in the thoracic aorta, origins of great vessels, and coronary arteries. Mediastinum and Amparo: Within normal limits. Heart: There is mild cardiomegaly. No pericardial effusion. Airways: Within normal limits Lungs: Multiple noncalcified nodules and masslike areas of consolidation are noted bilaterally. The largest in the right upper lobe measures 3.1 cm in greatest dimension. The largest in the left lower lobe measures 1 cm in greatestdimension. The largest in the left upper lobe measures 1.8 cm in greatest dimension. These are suspicious for malignancy given the history of previous breast cancer. Additionally these may be infectious in nature. Pleura: There is a small left-sided pleural effusion. Chest Wall: There is evidence of previous left mastectomy. Upper Abdomen: Within normal limits. Bones: Degenerative changes are noted in the shoulders and thoracic spine. CT/CT chest w con IMPRESSION: Masslike areas of consolidation are noted along with noncalcified nodules bilaterally as measured above. While these may be infectious in nature, the patient has a history of breast cancer. Metastatic disease is not excluded. There is a small left-sided pleural effusion. There is mild cardiomegaly. There is evidence of previous right hemithyroidectomy and left-sided mastectomy. ROS Subjective/ROS - Narrative: General: Patient denied fevers, chills, rigors, weight loss or loss of appetite. Head: Patient denied any headaches or vision changes Thoracic: Patient denied any shortness of breath or cough or hemoptysis Cardiovascular patient denies any chest pain or leg edema GI: Patient denies any nausea vomiting rectal bleed diarrhea : Patient denied gross hematuria. Hematology: Patient denied any bleeding from any source. No easy bruising. Lymphatic: No enlarged LAP anywhere. Skin: Normal skin exam no rashes or suspicious lesions. Neurological patient denies any headache or dizziness or focal weakness or sensory changes. However she is mildly lethargic still from recent surgery doneon 10/12/2023. [facility] - Medical History Medical History: Medical History (Last Updated 10/11/23 @ 17:36 by Annie Carrera, JANETH) Abnormal breast biopsy Breast cancer CAD (coronary artery disease) Diabetes DJD (degenerative joint disease) Hyperlipidemia Hypothyroid Lump of right breast - Surgical History Surgical History: Surgical History (Last Updated 10/11/23 @ 17:36 by Annie Carrera RN) H/O elbow surgery left elbow History of ankle surgery History of ankle surgery History of cardiac cath with stents x 7 History of left mastectomy Hx of tonsillectomy - Family History Family History: Family History (Last Reviewed 05/15/19 @ 06:20 by Cindy Mckenna LPN) Father Diabetes Enlarged heart Mother CAD (coronary artery disease) Sister Lung cancer - Social History Smoking Status: Never smoker Substance Use Type: None Allergies & Medications Allergies cilostazol Allergy (Verified 10/11/23 13:33) unknown Penicillins Allergy (Verified 10/11/23 13:33) Anaphylaxis metformin Adverse Reaction (Verified 10/11/23 13:33) Vomiting oxycodone Adverse Reaction (Verified 10/11/23 17:33) Hallucinating Home Medications aspirin 81 mg capsule 81 mg PO DAILY 10/11/23 [History Confirmed 10/11/23] atorvastatin 80 mg tablet (Lipitor) 80 mg PO QHS 10/11/23 [History Confirmed 10/11/23] ciprofloxacin HCl 500 mg tablet 500 mg PO BID 10/11/23 [History Confirmed 10/11/23] cyclosporine 0.05 % eye drops in a dropperette (Restasis) 1 drp Eye-Both Q12H 10/11/23 [History Confirmed 10/11/23] insulin degludec 100 unit/mL (3 mL) subcutaneous pen (Tresiba FlexTouch U-100 insulin) 10 unit subcut DAILY 10/11/23 [History Confirmed 10/11/23] levothyroxine 50 mcg tablet 50 mcg PO DAILY 10/11/23 [History Confirmed 10/11/23] liraglutide 0.6 mg/0.1 mL (18 mg/3 mL) subcutaneous pen injector (Victoza 2- Sterling)18 mg subcut DAILY 10/11/23 [History Confirmed 10/11/23] omeprazole 20 mg capsule,delayed release 20 mg PO DAILY 10/11/23 [History Confirmed 10/11/23] potassium chloride 10 mEq tablet,extended release(part/cryst) (Klor-Con M) 10 meq PO DAILY 10/11/23 [History Confirmed 10/11/23] propranolol 160 mg capsule,24 hr,extended release 160 mg PO DAILY 10/11/23 [History Confirmed 10/11/23] sitagliptin phosphate 100 mg tablet (Januvia) 100 mg PO DAILY 10/11/23 [History Confirmed 10/11/23] zolpidem 5 mg tablet 10 mg PO QHS 10/11/23 [History Confirmed 10/11/23] Physical Exam - Physical Exam Vital signs: Temp Pulse Resp BP Pulse Ox O2 Del Method O2 Flow Rate 98.1 F 66 16 142/73 H 96 Nasal Cannula 1 10/13/23 04:30 10/13/23 04:30 10/13/23 04:30 10/13/23 04:30 10/13/23 04:30 10/13/23 08:00 10/13/23 08:00 HEENT normocephalic atraumatic pupils are equal and round Neck supple without thyromegaly or any cervical lymphadenopathy. Chest clear to auscultation bilaterally without wheezing crackles or rhonchi Heart regular rate and rhythm S1-S2 without murmurs gallop or rub Abdomen soft nontender not distended without hepatosplenomegaly or masses clinically Extremities no edema of the lower extremities Skin without any suspicious rashes Lymphatic system no lymphadenopathy in the cervical area axillary areas or inguinal areas bilaterally Neurological exam patient is cooperative alert and oriented x3 no focal deficits. Results - Labs Lab Results: 10/13/23 08:16: PHA Creatinine Clear 47.52, Sodium 131 L, Potassium 4.9, Chloride 95 L, Carbon Dioxide 27.2, Anion Gap 13.7, BUN 20, Creatinine 0.77 D, Est GFR (CKD- EPI) > 60.0, Glucose 339 H, Calcium 9.5 10/13/23 08:16: Corrected WBC 18.2 H, Uncorrected WBC Count 18.2 H, RBC 4.47, Hgb 13.4, Hct 41.1, MCV 91.9, MCH 30.1, MCHC 32.7, RDW 14.1, Plt Count 246, MPV 9.3 10/13/23 06:45: POC Glucose 299 10/12/23 20:41: POC Glucose 236 10/12/23 16:37: POC Glucose 151, POC Glucose Comment Glu2: cleaned meter 10/12/23 16:10: Urine Color Dark yellow A, Urine Appearance Turbid A, Urine pH 5.5, Ur Specific [place] 1.031 H, Urine Protein 300 H, Urine Glucose (UA) Normal, Urine Ketones Trace H, Urine Occult Blood 3+ H, Urine Nitrite Positive H, Urine Bilirubin 1+ H, Urine Urobilinogen Normal, Ur Leukocyte Esterase 3+ H, Urine RBC Innumerable H, Urine WBC Innumerable H, Ur Squamous Epith Cells 1-2, Urine Bacteria None seen, Hyaline Casts 0-8 10/12/23 14:51: POC Glucose 207, POC Glucose Comment Glu2: cleaned meter 10/12/23 13:05: POC Glucose 197 10/12/23 11:47: POC Glucose 252 10/12/23 10:58: POC Glucose 278 - Other Results Results Comments: CT chest w con 10/11/2023 4:02 PM SIGN AND SYMPTOMS: Fall, right hip and knee pain, noncalcified nodules are notedin the right upper lobe on cervical spine CT suggestive of metastatic disease. CONTRAST: 90 mL of intravenous Isovue-300 TECHNIQUE: Multidetector CT axial slices of the chest were obtained with IV contrast. Multiplanar reformats were performed and viewed on a separate workstation and reviewed to further define anatomy and possible pathology. CT was performed with one or more of the following dose reduction techniques: Automated exposure control, adjustment of the mA and/or kV according to patient size, or use of iterative reconstruction technique. COMPARISON: Cervical spine CT from the same date. FINDINGS: Lower neck: There is right hemithyroidectomy. Vessels: Atherosclerotic changes are present in the thoracic aorta, origins of great vessels, and coronary arteries. Mediastinum and Amparo: Within normal limits. Heart: There is mild cardiomegaly. No pericardial effusion. Airways: Within normal limits Lungs: Multiple noncalcified nodules and masslike areas of consolidation are noted bilaterally. The largest in the right upper lobe measures 3.1 cm in greatest dimension. The largest in the left lower lobe measures 1 cm in greatestdimension. The largest in the left upper lobe measures 1.8 cm in greatest dimension. These are suspicious for malignancy given the history of previous breast cancer. Additionally these may be infectious in nature. Pleura: There is a small left-sided pleural effusion. Chest Wall: There is evidence of previous left mastectomy. Upper Abdomen: Within normal limits. Bones: Degenerative changes are noted in the shoulders and thoracic spine. CT/CT chest w con IMPRESSION: Masslike areas of consolidation are noted along with noncalcified nodules bilaterally as measured above. While these may be infectious in nature, the patient has a history of breast cancer. Metastatic disease is not excluded. There is a small left-sided pleural effusion. There is mild cardiomegaly. There is evidence of previous right hemithyroidectomy and left-sided mastectomy. Assessment & Plan (1) Lung mass These are new findings seems to be new patient is not aware of and even the daughter is not clear. This need to be further evaluated by a PET CT scan as outpatient and biopsy as well. I talked to the daughter that we need to schedule her with us in the clinic in about 3 weeks to obtain a PET CT scan and the biopsy of the right upper lung which is the largest mass. Patient is now recovering from her surgery of the right femoral neck fracture on 10/12/2023. She probably go to rehab for couple of weeks and need to follow-up with us for further evaluation of the bilateral lung masses the largest of which is the right upper lung. I am going to order tumor markers for breast cancer and colon cancer as well as ovarian cancer and pancreatic cancer and will follow them as outpatient. She can be discharged from hematology oncology standpoint anytime the other servicesorthopedic and primary hospitalist team that the patient is appropriate to be discharged needs to follow-up with me at the [facility] within the next 2 to 4 weeks (2) Closed subcapital fracture of neck of right femur (3) History of left breast cancer Likely early stage treated with left mastectomy when she was in her 50s without any adjuvant chemo or radiation and without any endocrine therapy it seems like at that point that she never seen oncologist as per the patient and her daughterbut they cannot remember exactly the details of the type of the breast cancer. No history of recurrent of this left breast cancer but per daughter that she had hemithyroidectomy which she is not aware that it was cancer. - Time Spent with Patient Total Time Spent with Patient: 55 min Greater than 50% of time spent with patient was for coordination of care (as documented) and [id number] counseling of patient and/or family. Documented By: Tosha Patel MD 10/13/23 1035 Signed By: <Electronically signed by Tosha Patel MD> 10/13/23 1049 [facility] Work Phone: 1(231) 751-993912-06-2023 Progress note Author Ismael Booth [facility] [place] October 13, 2023 7:08am Note Date/Time October 13, 2023 6 :47am [facility] [address] [place] [address] Orthopedic Progress Note Signed Patient: Heidi Palmer MR#: [id number] : 1940 Acct:[id number] Age/Sex: 83 / F Adm Date: 3 Loc: Room: [address] [place] [address] Type: ADM IN Attending Dr: Chin Rodarte MD Copies to: ~ Date of Service: 10/13/2023 Exam Physical Exam Vital Signs: Temp Pulse Resp BP Pulse Ox O2 Del Method O2 Flow Rate 98.1 F 66 16 142/73 H 96 Nasal Cannula 1 10/13/23 04:30 10/13/23 04:30 10/13/23 04:30 10/13/23 04:30 10/13/23 04:30 10/13/23 04:30 10/13/23 04:30 Narrative: Patient lying in bed. Awake and responding appropriately. Moving both ankles on command demonstrating good dorsiflexion bilaterally. Calf and thigh are soft. No obvious evidence of DVT Objective Labs Labs: Laboratory Results - last 24 hr 10/12/23 10/12/23 10/12/23 08:50 08:50 10:10 Corrected WBC 13.1 H Uncorrected WBC Count 13.1 H RBC 4.76 Hgb 14.3 Hct 43.1 MCV 90.5 MCH 30.0 MCHC 33.2 RDW 14.1 Plt Count 256 MPV 8.7 Neut % (Auto) 75.5 Lymph % (Auto) 12.5 [place] % (Auto) 9.7 Eos % (Auto) 1.1 Baso % (Auto) 1.2 Nucleat RBC Rel Count 0.0 Neut # (Auto) 9.9 H Lymph # (Auto) 1.6 [place] # (Auto) 1.3 H Eos # (Auto) 0.1 Baso # (Auto) 0.2 PHA Creatinine Clear N/A Sodium 133 L Potassium 4.6 Chloride 100 Carbon Dioxide 25.7 Anion Gap 11.9 BUN < 2 L Creatinine <0.20 L D Est GFR (CKD-EPI) N/A Glucose 305 H D POC Glucose 312 POC Glucose Comment Glu2: cleaned meter Calcium 9.2 Urine Color Urine Appearance Urine pH Ur Specific [place] Urine Protein Urine Glucose (UA) Urine Ketones Urine Occult Blood Urine Nitrite Urine Bilirubin Urine Urobilinogen Ur Leukocyte Esterase Urine RBC Urine WBC Ur Squamous Epith Cells Urine Bacteria Hyaline Casts 10/12/23 10/12/23 10/12/23 10:58 11:47 13:05 Corrected WBC Uncorrected WBC Count RBC Hgb Hct MCV MCH MCHC RDW Plt Count MPV Neut % (Auto) Lymph % (Auto) [place] % (Auto) Eos % (Auto) Baso % (Auto) Nucleat RBC Rel Count Neut # (Auto) Lymph # (Auto) [place] # (Auto) Eos # (Auto) Baso # (Auto) PHA Creatinine Clear Sodium Potassium Chloride Carbon Dioxide Anion Gap BUN Creatinine Est GFR (CKD-EPI) Glucose POC Glucose 278 252 197 POC Glucose Comment Calcium Urine Color Urine Appearance Urine pH Ur Specific [place] Urine Protein Urine Glucose (UA) Urine Ketones Urine Occult Blood Urine Nitrite Urine Bilirubin Urine Urobilinogen Ur Leukocyte Esterase Urine RBC Urine WBC Ur Squamous Epith Cells Urine Bacteria Hyaline Casts 10/12/23 10/12/23 10/12/23 14:51 16:10 16:37 Corrected WBC Uncorrected WBC Count RBC Hgb Hct MCV MCH MCHC RDW Plt Count MPV Neut % (Auto) Lymph % (Auto) [place] % (Auto) Eos % (Auto) Baso % (Auto) Nucleat RBC Rel Count Neut # (Auto) Lymph # (Auto) [place] # (Auto) Eos # (Auto) Baso # (Auto) PHA Creatinine Clear Sodium Potassium Chloride Carbon Dioxide Anion Gap BUN Creatinine Est GFR (CKD-EPI) Glucose POC Glucose 207 151 POC Glucose Comment Glu2: cleaned meter Glu2: cleaned meter Calcium Urine Color Dark yellow A Urine Appearance Turbid A Urine pH 5.5 Ur Specific [place] 1.031 H Urine Protein 300 H Urine Glucose (UA) Normal Urine Ketones Trace H Urine Occult Blood 3+ H Urine Nitrite Positive H Urine Bilirubin 1+ H Urine Urobilinogen Normal Ur Leukocyte Esterase 3+ H Urine RBC Innumerable H Urine WBC Innumerable H Ur Squamous Epith Cells 1-2 Urine Bacteria None seen Hyaline Casts 0-8 10/12/23 20:41 Corrected WBC Uncorrected WBC Count RBC Hgb Hct MCV MCH MCHC RDW Plt Count MPV Neut % (Auto) Lymph % (Auto) [place] % (Auto) Eos % (Auto) Baso % (Auto) Nucleat RBC Rel Count Neut # (Auto) Lymph # (Auto) [place] # (Auto) Eos # (Auto) Baso # (Auto) PHA Creatinine Clear Sodium Potassium Chloride Carbon Dioxide Anion Gap BUN Creatinine Est GFR (CKD-EPI) Glucose POC Glucose 236 POC Glucose Comment Calcium Urine Color Urine Appearance Urine pH Ur Specific [place] Urine Protein Urine Glucose (UA) Urine Ketones Urine Occult Blood Urine Nitrite Urine Bilirubin Urine Urobilinogen Ur Leukocyte Esterase Urine RBC Urine WBC Ur Squamous Epith Cells Urine Bacteria Hyaline Casts Assessment / Plan Assessment and plan (1) Closed subcapital fracture of neck of right femur: Plan: 1. Hopeful discharge to extended care facility tomorrow 2. Weightbearing as tolerated involved extremity 3. [place] out 14 days postop 4. Repeat hip x-rays in 14 days, have these sent to our office Code(s): S72.011A - Unspecified intracapsular fracture of right femur, initial encounter for closed fracture Status: Acute (2) Fall: Code(s): W19.XXXA - Unspecified fall, initial encounter Status: Acute (3) Hypothyroid: Code(s): E03.9 - Hypothyroidism, unspecified Status: Acute (4) Hyperlipidemia: Code(s): E78.5 - Hyperlipidemia, unspecified Status: Acute (5) Diabetes: Code(s): E11.9 - Type 2 diabetes mellitus without complications Status: Acute (6) CAD (coronary artery disease): Code(s): I25.10 - Atherosclerotic heart disease of [place] coronary artery without angina pectoris Status: Acute Documented By: Ismael Booth MD 10/13/23 0645 Signed By: <Electronically signed by MD Ismael Booth> 10/13/23 0708 [facility] Work Phone: 1(324) 396-786012-06-2023 Consult note Author Ismael Booth [facility] [place] October 13, 2023 6:54am Note Date/Time October 12, 2023 7 :25am [facility] [address] [place] [address] Orthopedic Consult Note Signed Patient: Heidi Palmer MR#: [id number] : 1940 Acct:[id number] Age/Sex: 83 / F Adm Date: 3 Loc: Room: [address] [place] [address] Type: ADM IN Attending Dr: Chin Rodarte MD Copies to: MD Mica Hernandes MD Thomas A Olexa, MD~ History of Present Illness HPI Consult date: 10/12/2023 Requesting provider: Chin Rodarte MD History of present illness: Patient is an 83-year-old female status post fall and complaints of right hip pain x-rays in the emergency room demonstrated displaced right femoral neck fracture. She will be admitted for definitive treatment Review of Systems Review of Systems All other systems reviewed & are negative unless noted below or in HPI [facility] Medical History (Updated 10/11/23 @ 17:36 by Annie Carrera RN) Abnormal breast biopsy Breast cancer CAD (coronary artery disease) Diabetes DJD (degenerative joint disease) Hyperlipidemia Hypothyroid Lump of right breast Surgical History (Updated 10/11/23 @ 17:36 by Annie Carrera RN) H/O elbow surgery left elbow History of ankle surgery History of ankle surgery History of cardiac cath with stents x 7 History of left mastectomy Hx of tonsillectomy Family History Father Diabetes Enlarged heart Mother CAD (coronary artery disease) Sister Lung cancer Social History Smoking Status: Never smoker Substance Use Type: None Allergies & Medications Medications and Allergies Allergies cilostazol Allergy (Verified 10/11/23 13:33) unknown Penicillins Allergy (Verified 10/11/23 13:33) Anaphylaxis metformin Adverse Reaction (Verified 10/11/23 13:33) Vomiting oxycodone Adverse Reaction (Verified 10/11/23 17:33) Hallucinating Home Medications aspirin 81 mg capsule 81 mg PO DAILY 10/11/23 [History Confirmed 10/11/23] atorvastatin 80 mg tablet (Lipitor) 80 mg PO QHS 10/11/23 [History Confirmed 10/11/23] ciprofloxacin HCl 500 mg tablet 500 mg PO BID 10/11/23 [History Confirmed 10/11/23] cyclosporine 0.05 % eye drops in a dropperette (Restasis) 1 drp Eye-Both Q12H 10/11/23 [History Confirmed 10/11/23] insulin degludec 100 unit/mL (3 mL) subcutaneous pen (Tresiba FlexTouch U-100 insulin) 10 unit subcut DAILY 10/11/23 [History Confirmed 10/11/23] levothyroxine 50 mcg tablet 50 mcg PO DAILY 10/11/23 [History Confirmed 10/11/23] liraglutide 0.6 mg/0.1 mL (18 mg/3 mL) subcutaneous pen injector (Victoza 2- [place])18 mg subcut DAILY 10/11/23 [History Confirmed 10/11/23] lisinopril 5 mg tablet 5 mg PO DAILY 10/11/23 [History Confirmed 10/11/23] omeprazole 20 mg capsule,delayed release 20 mg PO DAILY 10/11/23 [History Confirmed 10/11/23] potassium chloride 10 mEq tablet,extended release(part/cryst) (Klor-Con M) 10 meq PO DAILY 10/11/23 [History Confirmed 10/11/23] propranolol 160 mg capsule,24 hr,extended release 160 mg PO DAILY 10/11/23 [History Confirmed 10/11/23] sitagliptin phosphate 100 mg tablet (Januvia) 100 mg PO DAILY 10/11/23 [History Confirmed 10/11/23] zolpidem 5 mg tablet 10 mg PO QHS 10/11/23 [History Confirmed 10/11/23] Exam Physical Exam Vital Signs: Temp Pulse Resp BP Pulse Ox O2 Del Method O2 Flow Rate 98.4 F 69 16 144/68 H 96 Nasal Cannula 2 10/12/23 04:55 10/12/23 04:55 10/12/23 04:55 10/12/23 04:55 10/12/23 04:55 10/12/23 04:55 10/12/23 04:55 Narrative: Patient lying in bed. Alert and cooperative. Family in the room. No other complaints besides right hip pain. Const General: cooperative and healthy appearing HEENT Head: normal to inspection Neck Neck: normal visual inspection and full ROM Resp Effort & Inspection: normal respiratory effort Extrem Other: Patient demonstrated intact passive motion of both shoulder elbow and wrist. Good muscle tone and joint stability. Skin intact Nonpainful motion left hip knee and ankle. Skin intact. Moderate swelling right proximal thigh. Compartments soft thigh and calf. Moving ankle on command Results Lab Results 10/11/23 13:43 10/11/23 13:43 Labs: Laboratory Results - Last 48 hrs. 10/11/23 23:33: POC Glucose 384, POC Glucose Comment Glu2: cleaned meter 10/11/23 14:47: Blood Type Recheck O Negative 10/11/23 13:43: Blood Type O Negative, Antibody Screen Negative 10/11/23 13:43: PHA Creatinine Clear N/A, Sodium 133 L, Potassium 4.5, Chloride 100, Carbon Dioxide 27.4, Anion Gap 10.1, BUN 11, Creatinine 0.77, Est GFR (CKD-EPI) > 60.0, Glucose 418 H, Calcium 9.5 10/11/23 13:43: PT 12.3, INR 1.0, APTT 32.0 10/11/23 13:43: Corrected WBC 10.1, Uncorrected WBC Count 10.1, RBC 4.87, Hgb 14.8, Hct 44.1, MCV 90.5, MCH 30.4, MCHC 33.6, RDW 14.2, Plt Count 323, MPV 8.4,Neut % (Auto) 67.6, Lymph % (Auto) 21.3, [place] % (Auto) 8.4, Eos % (Auto) 1.7, Baso % (Auto) 1.0, Nucleat RBC Rel Count 0.1, Neut # (Auto) 6.9, Lymph # (Auto) 2.2, [place] # (Auto) 0.8, Eos # (Auto) 0.2, Baso # (Auto) 0.1, Monocyte Dist Width17.73 H & H 10/11/23 Range/Units 13:43 Hgb 14.8 (11.8-15.4) g/dL Hct 44.1 (34.0-46.4) % Coagulation 10/11/23 Range/Units 13:43 INR 1.0 All other labs are normal. Imaging & Diagnostic Results Imaging/Diagnostics: AP pelvis and lateral of the right hip demonstrate displaced right femoral neck fracture Assessment/Plan (1) Closed subcapital fracture of neck of right femur: Plan: Patient has sustained a displaced right femoral neck fracture. She will requirearthroplasty replacement. We will plan on surgery Wednesday if medically cleared. Code(s): S72.011A - Unspecified intracapsular fracture of right femur, initial encounter for closed fracture (2) Fall: Code(s): W19.XXXA - Unspecified fall, initial encounter (3) Hypothyroid: Code(s): E03.9 - Hypothyroidism, unspecified (4) Hyperlipidemia: Code(s): E78.5 - Hyperlipidemia, unspecified (5) Diabetes: Code(s): E11.9 - Type 2 diabetes mellitus without complications (6) CAD (coronary artery disease): Code(s): I25.10 - Atherosclerotic heart disease of [place] coronary artery without angina pectoris Documented By: Ismael Booth MD 10/12/23722 Signed By: <Electronically signed by MD Ismael Booth> 10/13/23 0654 [facility] Work Phone: [phone]) 605-484812-05-2023 Hospital Discharge instructions Additional Instructions REHAB TO MANAGE: PT/OT to eval and treat Monitor VS per protocol Monitor FSBS per protocol Monitor Ortho. assessment--Right hip fracture s/p hemiarthroplasty on 10/12/23 Please follow Ortho. instructions: *Weightbearing as tolerated *[place] out 14 days postop *Repeat hip x-rays in 14 days, have these sent to Dr. Booth Maintain high risk fall precautions [facility] Work Phone: [phone]) 429-475912-05-2023 Progress note Author Chin Rodarte [facility] October 12, 2023 11:21am Note Date/Time October 12, 2023 1 1:21am [facility] [address] [place] [address] Hospitalist Progress Note Signed Patient: Heidi Palmer MR#: [id number] : 1940 Acct:[id number] Age/Sex: 83 / F Adm Date: 3 Loc: Room: [address] [place] [address] Type: ADM IN Attending Dr: Chin Rodarte MD Copies to: ~ Date of Service: 10/12/2023 Subjective Subjective Narrative: Seen and examined Clinically stable C/O mild pain No chest pain or SOB No cough Exam Physical Exam Vital Signs: Temp Pulse Resp BP Pulse Ox O2 Del Method O2 Flow Rate 97.8 F 72 16 155/76 H 97 Nasal Cannula 2 10/12/23 07:51 10/12/23 07:51 10/12/23 07:51 10/12/23 07:51 10/12/23 07:51 10/12/23 08:00 10/12/23 08:00 Narrative: General patient laying in bed in no acute distress alert awake oriented x3 HEENT PERRLA Neck supple no JVD no carotid bruit CVS S1-S2 regular rate and rhythm no murmur no gallop Chest clear to auscultation percussion Abdomen soft bowel sounds normoactive no rebound no guarding Extremities no stenosis no clubbing no edema Musculoskeletal exam normal no joint effusion Neurologic exam oriented x3 alert awake no focal left Psychiatry: Normal insight and judgment Objective Lab Results 10/12/23 08:50 10/12/23 08:50 Meds Allergies and Active Meds Allergies cilostazol Allergy (Verified 10/11/23 13:33) unknown Penicillins Allergy (Verified 10/11/23 13:33) Anaphylaxis metformin Adverse Reaction (Verified 10/11/23 13:33) Vomiting oxycodone Adverse Reaction (Verified 10/11/23 17:33) Hallucinating Active Meds: Active Medications Generic Name Dose Route Start Last Admin Trade Name Freq PRN Reason Stop Dose Admin Acetaminophen 650 mg 10/11/23 16:47 Acetaminophen 325 Mg Tablet PO 10/10/24 16:46 Q6HR PRN Pain Scale 1 - 3 or fever Aspirin 81 mg 10/12/23 09:00 10/12/23 08:15 Aspirin 81 Mg Tablet. PO 10/11/24 08:59 Not Given DAILY ILIANA Atorvastatin Calcium 80 mg 10/11/23 22:00 Atorvastatin 80 Mg Tablet PO 10/10/24 21:59 QHS ILIANA Bisacodyl 10 mg 10/11/23 16:47 Bisacodyl 5 Mg Tablet. PO 10/10/24 16:46 DAILY PRN Constipation Cyclosporine 1 drops 10/11/23 17:00 Cyclosporine 0.05% Op Emulsion 1 Drops (0.4 Ml Droperette) EYE-BOTH 10/10/2416:59 Q12H [facility] Docusate Sodium 100 mg 10/11/23 16:47 Docusate 100 Mg Capsule PO 10/10/24 16:46 BID PRN Constipation Enoxaparin Sodium 40 mg 10/12/23 10:00 10/12/23 10:56 Enoxaparin 40 Mg/0.4 Ml Syringe SUBCUT 10/11/24 09:59 Not Given DAILY@10 [facility] Lactated Ringer's 1,000 mls @ 20 mls/hr 10/12/23 10:39 10/12/23 11:09 Lactated Ringers IV 10/13/23 10:38 20 mls/hr .Q24H ONE Administration Insulin Human Regular 0 unit 10/12/23 10:39 10/12/23 11:06 Insulin Regular, Human 300 Unit/3 Ml SUBCUT 10/12/23 22:40 6 unit PROTOCOL PRN Administration High Blood Glucose Protocol Levothyroxine Sodium 50 mcg 10/12/23 06:30 10/12/23 08:12 Levothyroxine 50 Mcg Tablet PO 10/11/24 06:29 50 mcg DAILY@0630 [facility] Administration Lidocaine HCl 0.1 ml 10/12/23 10:39 Lidocaine 1% 50 Ml Vial INTRADERMA PREOP PRN Venipuncture x 1 Dose Liraglutide 18 mg 10/12/23 09:00 Liraglutide 18 Mg/3 Ml Pen.Injctr SUBCUT 10/11/24 08:59 DAILY [facility] Lisinopril 5 mg 10/12/23 09:00 10/12/23 10:55 Lisinopril 5 Mg Tablet PO 10/11/24 08:59 Not Given DAILY [facility] Melatonin 5 mg 10/11/23 16:47 Melatonin 5 Mg Tablet PO 10/10/24 16:46 QHS PRN Insomnia Meperidine HCl 25 mg 10/12/23 09:33 10/12/23 09:46 Meperidine Pf 25 Mg/Ml Vial IV-PUSH 25 mg Q3HR PRN Administration Pain Meperidine HCl 50 mg 10/12/23 09:33 Meperidine Pf 25 Mg/Ml Vial IV-PUSH Q3HR PRN Pain Morphine Sulfate 2 mg 10/11/23 16:47 10/12/23 07:58 Morphine Sulfate 2 Mg/Ml Vial IV-PUSH 2 mg Q4H PRN Administration Pain Scale 8 - 10 Ondansetron HCl 4 mg 10/11/23 16:47 Ondansetron 4 Mg/2 Ml Vial IV-PUSH 10/10/24 16:46 Q8H PRN Nausea And Vomiting Oxycodone/Acetaminophen 1 tab 10/11/23 16:47 10/11/23 21:08 Oxycodone/Acetaminophen 5-325 Mg Tablet PO 1 tab Q4H PRN Administration Pain Scale 4 - 7 Pantoprazole Sodium 40 mg 10/12/23 09:00 10/12/23 08:16 Pantoprazole 40 Mg Tablet.Dr PO 10/11/24 08:59 Not Given DAILY ILIANA Potassium Chloride 10 meq 10/12/23 09:00 10/12/23 08:16 Potassium Chloride Er 10 Meq Tablet.Er PO 10/11/24 08:59 Not Given DAILY ILIANA Propranolol HCl 160 mg 10/12/23 09:00 10/12/23 08:16 Propranolol Sa.24hr 80 Mg Capsule PO 10/11/24 08:59 Not Given DAILY ILIANA Sodium Chloride 0 ml 10/11/23 13:31 10/12/23 11:04 Sodium Chloride 0.9 % 10 Ml Syringe IV-PUSH 10/10/24 13:30 10 ml PRN PRN Administration Flush Zolpidem Tartrate 10 mg 10/11/23 22:00 Zolpidem 10 Mg Tablet PO 04/08/24 21:59 QHS PRN Sleep A&P - Hospitalist Assessment/Plan (1) Closed subcapital fracture of neck of right femur: (2) Fall: (3) Hypothyroid: (4) Hyperlipidemia: (5) Diabetes: (6) CAD (coronary artery disease): Plan 83-year-old white female with past medical history of hypertension, hyperlipidemia, diabetes type 2, CAD, history of breast cancer, and hypothyroidism who presented to emergency room with mechanical fall. She tripped and fell over a couple while she living a doctor appointment. She landed on her right side. X-ray showing hip fracture. Orthopedic asked to admit the patient under medicine service. She did not loss her consciousness she denies any chest pain or shortness of breath. She denies having abdominal pain. No nausea vomiting. No diarrhea. Patient admitted to the hospital for further management. A/P Mechanical fall subcapital fracture of the neck of the right femur Seen and examined Clinically stable C/o pain NPO Plan for ORIF right hip tocallie PT/OT Social service consult Lung mass: Hisotry of breast cancer CT chest Masslike areas of consolidation are noted along with noncalcified nodules bilaterally as measured above. While these may be infectious in nature, the patient has a history of breast cancer. Metastatic disease is not excluded. There is a small left-sided pleural effusion. There is mild cardiomegaly. There is evidence of previous right hemithyroidectomy and left-sided mastectomy. Oncology was consulted Hypertension: Lisinopril Diabetes type 2: Accu-Chek ACHS/insulin sliding scale hold Januvia for now, willresume at Hyperlipidemia:Lipitor Hypothyroidism: Synthroid DVT prophylaxis: Resume Lovenox SC when ok with ortho Documented By: Chin Rodarte MD 10/12/23 1118 Signed By: <Electronically signed by Chin Rodarte MD> 10/12/23 1121 [facility] Work Phone: 1(580) 144-154912-04-2023 History and physical note Author Chin Rodarte [facility] October 11, 2023 4:46pm Note Date/Time October 11, 2023 4 :13pm [facility] [address] [place] [address] Hospitalist H&P Signed Patient: Heidi Palmer MR#: [id number] : 1940 Acct:[id number] Age/Sex: 83 / F Adm Date: 3 Loc: Room: [address] [place] [address] Type: ADM IN Attending Dr: Chin Rodarte MD Copies to: MD Mica Hernandes MD~ HPI DATE OF EXAMINATION: 10/11/23 CHIEF COMPLAINT: Mechanical fall HISTORY OF PRESENT ILLNESS: 83-year-old white female with past medical history of hypertension, hyperlipidemia, diabetes type 2, CAD, history of breast cancer, and hypothyroidism who presented to emergency room with mechanical fall. She tripped and fell over a couple while she living a doctor appointment. She landed on her right side. X-ray showing hip fracture. Orthopedic asked to admit the patient under medicine service. She did not loss her consciousness she denies any chest pain or shortness of breath. She denies having abdominal pain. No nausea vomiting. No diarrhea. Patient admitted to the hospital for further management. Review of Systems Review of Systems All other systems reviewed & are negative unless noted below or in HPI [facility] Medical History (Updated 10/11/23 @ 16:39 by Chin Rodarte MD) Abnormal breast biopsy Breast cancer CAD (coronary artery disease) Diabetes DJD (degenerative joint disease) Hyperlipidemia Hypothyroid Surgical History History of ankle surgery History of cardiac cath History of left mastectomy Hx of tonsillectomy Family History Father Diabetes Enlarged heart Mother CAD (coronary artery disease) Sister Lung cancer Social History Smoking Status: Never smoker Substance Use Type: None Meds Medications and Allergies Allergies cilostazol Allergy (Verified 10/11/23 13:33) unknown Penicillins Allergy (Verified 10/11/23 13:33) Anaphylaxis metformin Adverse Reaction (Verified 10/11/23 13:33) Vomiting Home Medications aspirin 81 mg capsule 81 mg PO DAILY 10/11/23 [History Confirmed 10/11/23] atorvastatin 80 mg tablet (Lipitor) 80 mg PO QHS 10/11/23 [History Confirmed 10/11/23] ciprofloxacin HCl 500 mg tablet 500 mg PO BID 10/11/23 [History Confirmed 10/11/23] cyclosporine 0.05 % eye drops in a dropperette (Restasis) 1 drp Eye-Both Q12H 10/11/23 [History Confirmed 10/11/23] levothyroxine 50 mcg tablet 50 mcg PO DAILY 10/11/23 [History Confirmed 10/11/23] liraglutide 0.6 mg/0.1 mL (18 mg/3 mL) subcutaneous pen injector (Victoza 2- Sterling)18 mg subcut DAILY 10/11/23 [History Confirmed 10/11/23] lisinopril 5 mg tablet 5 mg PO DAILY 10/11/23 [History Confirmed 10/11/23] omeprazole 20 mg capsule,delayed release 20 mg PO DAILY 10/11/23 [History Confirmed 10/11/23] potassium chloride 10 mEq tablet,extended release(part/cryst) (Klor-Con M) 10 meq PO DAILY 10/11/23 [History Confirmed 10/11/23] propranolol 160 mg capsule,24 hr,extended release 160 mg PO DAILY 10/11/23 [History Confirmed 10/11/23] sitagliptin phosphate 100 mg tablet (Januvia) 100 mg PO DAILY 10/11/23 [History Confirmed 10/11/23] zolpidem 5 mg tablet 10 mg PO QHS 10/11/23 [History Confirmed 10/11/23] Exam Physical Exam Vital Signs: Temp Pulse Resp BP Pulse Ox O2 Del Method 98.4 F 64 18 170/80 H 95 Room Air 10/11/23 13:56 10/11/23 15:30 10/11/23 15:30 10/11/23 13:56 10/11/23 15:30 10/11/23 15:30 Narrative: General patient laying in bed in no acute distress alert awake oriented x3 HEENT PERRLA Neck supple no JVD no carotid bruit CVS S1-S2 regular rate and rhythm no murmur no gallop Chest clear to auscultation percussion Abdomen soft bowel sounds normoactive no rebound no guarding Extremities no stenosis no clubbing no edema Musculoskeletal exam normal no joint effusion Neurologic exam oriented x3 alert awake no focal left Psychiatry: Normal insight and judgment Results Lab Results Labs: Laboratory Last Values Corrected WBC 10.1 X10E3/uL (3.8-11.6) 10/11/23 13:43 Uncorrected WBC Count 10.1 x10E3/uL (3.8-11.6) 10/11/23 13:43 RBC 4.87 X10E6/uL (3.60-5.00) 10/11/23 13:43 Hgb 14.8 g/dL (11.8-15.4) 10/11/23 13:43 Hct 44.1 % (34.0-46.4) 10/11/23 13:43 MCV 90.5 fl (80-100) 10/11/23 13:43 MCH 30.4 pg (24.7-34.3) 10/11/23 13:43 MCHC 33.6 g/dL (32.0-35.0) 10/11/23 13:43 RDW 14.2 % (11.9-15.3) 10/11/23 13:43 Plt Count 323 x10E3/uL (150-450) 10/11/23 13:43 MPV 8.4 fl (6.3-10.7) 10/11/23 13:43 Neut % (Auto) 67.6 % (.) 10/11/23 13:43 Lymph % (Auto) 21.3 % (.) 10/11/23 13:43 [place] % (Auto) 8.4 % (.) 10/11/23 13:43 Eos % (Auto) 1.7 % (.) 10/11/23 13:43 Baso % (Auto) 1.0 % (.) 10/11/23 13:43 Nucleat RBC Rel Count 0.1 /100 WBC (0-0.5) 10/11/23 13:43 Neut # (Auto) 6.9 x10E3/uL (1.8-7.7) 10/11/23 13:43 Lymph # (Auto) 2.2 x10E3/uL (1.00-4.8) 10/11/23 13:43 [place] # (Auto) 0.8 x10E3/uL (0.0-0.8) 10/11/23 13:43 Eos # (Auto) 0.2 x10E3/uL (0.0-0.45) 10/11/23 13:43 Baso # (Auto) 0.1 x10E3/uL (0.0-0.2) 10/11/23 13:43 Monocyte Dist Width 17.73 % (0.00-20.00) 10/11/23 13:43 PT 12.3 Seconds (9.0-12.9) 10/11/23 13:43 INR 1.0 10/11/23 13:43 APTT 32.0 Seconds (25.1-36.5) 10/11/23 13:43 PHA Creatinine Clear N/A 10/11/23 13:43 Sodium 133 mmol/L (136-145) L 10/11/23 13:43 Potassium 4.5 mmol/L (3.5-5.1) 10/11/23 13:43 Chloride 100 mmol/L (98-107) 10/11/23 13:43 Carbon Dioxide 27.4 mmol/L (21.0-31.0) 10/11/23 13:43 Anion Gap 10.1 mEq/L (6.0-15.0) 10/11/23 13:43 BUN 11 mg/dL (7-25) 10/11/23 13:43 Creatinine 0.77 mg/dL (0.60-1.20) 10/11/23 13:43 Est GFR (CKD-EPI) > 60.0 mL/Min 10/11/23 13:43 Glucose 418 mg/dL (70-100) H 10/11/23 13:43 Calcium 9.5 mg/dL (8.6-10.3) 10/11/23 13:43 Blood Type O Negative 10/11/23 13:43 Blood Type Recheck O Negative 10/11/23 14:47 Antibody Screen Negative 10/11/23 13:43 Assessment & Plan Assessment/Plan (1) Closed subcapital fracture of neck of right femur: (2) Fall: (3) Hypothyroid: (4) Hyperlipidemia: (5) Diabetes: (6) CAD (coronary artery disease): Plan 83-year-old white female with past medical history of hypertension, hyperlipidemia, diabetes type 2, CAD, history of breast cancer, and hypothyroidism who presented to emergency room with mechanical fall. She tripped and fell over a couple while she living a doctor appointment. She landed on her right side. X-ray showing hip fracture. Orthopedic asked to admit the patient under medicine service. She did not loss her consciousness she denies any chest pain or shortness of breath. She denies having abdominal pain. No nausea vomiting. No diarrhea. Patient admitted to the hospital for further management. A/P Mechanical fall subcapital fracture of the neck of the right femur Inpatient admission to medical surgical floor Patient will require more than 2 days in the hospital Percocet 1 tablet every 4 hours as needed for pain Morphine 2 mg every 4 hours as needed PT OT evaluation PT OT evaluation Social service consult Lung mass: Hisotry of breast cancer CT chest Masslike areas of consolidation are noted along with noncalcified nodules bilaterally as measured above. While these may be infectious in nature, the patient has a history of breast cancer. Metastatic disease is not excluded. There is a small left-sided pleural effusion. There is mild cardiomegaly. There is evidence of previous right hemithyroidectomy and left-sided mastectomy. Will need oncology follow up Hypertension: Lisinopril Diabetes type 2: Accu-Chek ACHS/insulin sliding scale hold Malachi for now, willresume at Hyperlipidemia: Resume lipid Hypothyroidism: Resume Synthroid DVT prophylaxis: Resume Lovenox SC IP vs OBS Justification Based on differential dx, clinical care plan, and risk of adverse events, if untreated, in my clinical judgement this patient requires an acute care setting as: INPATIENT because of an expectation of an over 2 midnight stay. Estimated length of stay (# of days): 3 Documented By: Chin Rodarte MD 10/11/23 1609 Signed By: <Electronically signed by Chin Rodarte MD> 10/11/23 1645 [facility] Work Phone: [phone]) 731-963412-04-2023 Evaluation note* Encounter Date Diagnosis Assessment Notes Treatment Notes Treatment Clinical Notes Oct, Type 2 diabetes mellitus with hyperglycemia, without long-term current use of insulin (ICD-10 - E11.65) Pt here for appointment today with sister, agreeable to wear a Rocio 3 sample. Rocio training discussed, instructed on use and application on personal [employer] phone. Patient cleansed posterior side of right upper arm with alcohol then Skin Tac, applied first Rocio 3 sensor sample. Adhesive also applied for extra security. Reviewed with patient testing glucose with Rocio ac, hs explained how to enter insulin dosing/carbs/notes into Rocio application. Reviewed with patient no more than 500mg of Vitamin C per day, which can falsely elevate CGM glucose results. Need for confirmatory glucose fingerstick if not feeling well or if prompted to. Encouraged patient to check glucose 4xday, before meals/bedtime and to fingerstick when not wearing CGM. Discussed S/S of hypoglycemia/hyper glycemia and treatment options. All questions and concerns addressed. Insulin training also completed. Tresiba sample provided, pt was able to provide return demonstration well. Pt administered 10 units of Tresiba to her lower right abdomen without issues. Instructed patient to return for scheduled follow up appointment in 2 weeks with RN personal development educator and in 6 weeks with provider. 45 minutes was spent on education by Medardo ZAMBRANO, RN 1. Uncontrolled, a Type 2 diabetes with A1c of 9.7% (per PCP 03-22-2023) 2. Blood glucose levels above goal as evidenced by hemoglobin A1c. We will start her on Tresiba 10 units once daily, she has been placed CGM to help with blood glucose regulation. She knows that once weekly she should consider escalation of fasting blood glucose is greater than 150.We discussed signs and symptoms of hypoglycemia. She has been educated on how to use CGM. Her blood pressure is under good control today. We can consider SGLT2 at next visit. We will have her return to clinic in 2 weeks for download 6 weeks to see provider 3. Patient is alert, oriented and receptive to making changes or counseling. Notes: Seen for an assessment of current glucose pattern, changes in treatment plan, counseling and coordination of care related to diabetes, risks, and benefits of treatment, medications, side effects. Given handouts to reinforce concepts reviewed during counseling, see scanned notes. TOPICS REVIEWED: 1. Time was spent reviewing: a. Basic concepts of diabetes, progressive beta cell , concepts of basal/bolus/correc tive insulin requirements. b. Nutrition: Concepts of healthy diet, encouraged to decrease saturated fat in diet and increase non-starchy vegetables and fruits in diet. BMI: Pt. needs to select one small change to decrease caloric intake or increase physical activity to help decrease weight. c. Correct treatment of hypoglycemia, carry a glucose source at all times on your person, in vehicles, and at bedside. Can use glucose tablets/4, four ounces of pop or juice equal to 15 G of carbohydrate. Blood glucose should be 100 mg/dl or higher when driving. d. ADA glucose goals for age and medical complexity reviewed e. Patient questions addressed 2. Activity/exercise: Encouraged to start any form of physical activity. Start low level and increase slowly to a minimal goal of 150 minutes/week. Limit activity to what is allowed by other issues such as cardiac, pulmonary or orthopedic restrictions. 3. Standards of care: Reminded to have an annual dilated eye exam, A1C every 3 months, urine testing for microalbumin once/year, check feet daily and report any cuts or sores that do not appear to be healing. 4. Meter: Plan to check blood glucose: Please check blood glucose levels 1-4 times/day. Back to back meals reveal effectiveness of bolus dosing. 5. [facility]. Contact office if any issues or concerns with patterns of hypoglycemia, hyperglycemia, or diabetes medication issues. 6. Prescriptions: New patient 10-11-2023 uses [facility] pharmacy/[place] Oct, Vitamin D deficiency (ICD-10 - E55.9) Interval surveillance Oct, Hyperlipidemia, unspecified hyperlipidemia type (ICD-10 - E78.5) Consider due to ADA guidelines Oct, Hypertension, unspecified type (ICD-10 - I10) Discussed goal less than 130/80 Oct, Dietary counseling and surveillance (ICD-10 - Z71.3) Oct, BMI 25.0-25.9,adult (ICD-10 - Z68.25) Oct, Other I have spent 60 minutes with this patient and over 50% of the visit was counseling done by myself, Tova BECKETT. Of note, subsequent to our appointment here patient had mechanical fall in the parking lot. She was taken to [facility] emergency room with hip pain and treated [employer] Other 11-30-2023 Evaluation note* Encounter Date Diagnosis Assessment Notes Treatment Notes Treatment Clinical Notes Sep, Acute non-recurrent maxillary sinusitis (ICD-10 - J01.00) Pt declines to come to office for in-person visit. She declines the offer to get a CXR. She requests rx to [facility]. She understands that she may need to go to ER again or come to office if symptoms worsen. [employer] Other 10-12-2023 Evaluation note* Encounter Date Diagnosis Assessment Notes Treatment Notes Treatment Clinical Notes Aug, Insomnia, unspecified type (ICD-10 - G47.00) [employer] Other 09-11-2023 Evaluation note* Encounter Date Diagnosis Assessment Notes Treatment Notes Treatment Clinical Notes Jul, Type 2 diabetes mellitus with hyperglycemia, without long-term current use of insulin (ICD-10 - E11.65) Dicussed A1C - will increase dose for improved control/A1C reading Jul, UTI symptoms (ICD-10 - R39.9) Reviewed UA, will treat patient for UTI today. Instructed patient to take antibiotic as prescribed, take with food, complete entire course of therapy even if feeling better. Allergies and recent antibiotic use was reviewed with patient. Pt to take pyridium as prescribed for urinary discomfort, advised patient that it will turn urine orange, explained to patient the importance of not taking longer then 2 days. Advised patient urine culture was sent today and we will call with her results if antibiotic needs changed. Patient instructed to push fluids. Patient symptoms should improve in the next 24-48 hours, Immediate eval by ER if back or flank pain, blood in urine, fever, chills, N/V, or any other concerning symptoms. Patient verbalizes understanding and is agreeable to treatment plan. Jul, Thyromegaly (ICD-10 - E01.0) Will proceed w US - discussed w pt. 11 Jul, 2023 Insomnia, unspecified type (ICD-10 - G47.00) Chronic, stable - requests refill. Denies oversedation. 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 Jun, Type 2 diabetes mellitus with hyperglycemia, without long-term current use of insulin (ICD-10 - E11.65) Due for labs. Samples of Jardiance 25mg #28 given to pt. 14 Jun, 2023 Left carotid bruit (ICD-10 - R09.89) Will assess for stroke risk factors due to recent facial weakness. 14 Jun, 2023 UTI symptoms (ICD-10 - R39.9) UA CS at hospital. [employer] Other 04-12-2023 Evaluation note* Encounter Date Diagnosis Assessment Notes Treatment Notes Treatment Clinical Notes Feb, Insomnia, unspecified type (ICD-10 - G47.00) [employer] Other 04-11-2023 Evaluation note* Encounter Date Diagnosis Assessment Notes Treatment Notes Treatment Clinical Notes Feb, Fracture of unspecified phalanx of left little finger, subsequent encounter for fracture with routine healing (ICD-10 - S62.607D) Feb, Nondisplaced fracture of neck of left radius, subsequent encounter for closed fracture with routine healing (ICD-10 - S52.135D) Radiographs reviewed with patient today. Discussed with patient she can discontinue elbow and finger brace. Discussed with patient she can progress activity as tolerated. Discussed to continue to work on strength and range of motion exercises to avoid stiffness. Feb, Contusion of left index finger without damage to nail, subsequent encounter (ICD-10 - S60.022D) [employer] Other 03-01-2023 Evaluation note* Encounter Date Diagnosis Assessment Notes Treatment Notes Treatment Clinical Notes Jan, Fracture of unspecified phalanx of left little finger, subsequent encounter for fracture with routine healing (ICD-10 - S62.607D) New stack splint provided today as previous was too big now that swelling has decreased. Jan, Nondisplaced fracture of neck of left radius, subsequent encounter for closed fracture with routine healing (ICD-10 - S52.135D) Radiographs reviewed with patient. She is progressing well at this time. May wear elbow splint without limitations of flexion/extension, or may wear just sling if that is more comfortable. Progress with formal therapy as scheduled. Call with questions/concerns . Jan, Contusion of left index finger without damage to nail, subsequent encounter (ICD-10 - S60.022D) [employer] Other 02-14-2023 Evaluation note* Encounter Date Diagnosis Assessment Notes Treatment Notes Treatment Clinical Notes Dec, Closed nondisplaced fracture of phalanx of left little finger, unspecified phalanx, initial encounter (ICD-10 - S62.607A) Radiographs reviewed and discussed in detail with patient. Patient has sustained a fracture to the left small finger. We discussed conservative treatment with splinting versus surgical intervention. Patient was explained risks and benefits of both treatment options. She voiced understanding and elects to treat nonoperatively with splinting. Patient was placed in a splint and instructed to be nonweight bearing on the affected hand. Discussed this can take at least 6 weeks to heal. Instructed on gentle motion of the fingers. Advised patient ice and elevate to decrease pain and swelling. We will follow up in 2-3 weeks time for recheck. Patient voiced understanding and states no further questions. Dec, Contusion of left index finger without damage to nail, initial encounter (ICD-10 - S60.022A) Dec, Closed nondisplaced fracture of neck of left radius, initial encounter (ICD-10 - S52.135A) The patient has suffered a minimally displaced radial head fracture. This fracture appears stable and we will treat this non-operatively. We have recommended use of a sling for comfort. We discussed and demonstrated gentle passive and active elbow motion exercise to be performed multiple times per day. We advised of no weight bearing, strenuous use or lifting with this arm. We discussed that this injury may take six weeks to obtain early healing and gavin require months of motion and strength exercise afterwards. We discussed that this injury can lead to skilled nursing elbow pain and stiffness. Patient is in need of a hinged elbow brace due to their diagnosis of left radial head fracture. This is needed for aid in activities of daily living by increasing safety and stability. This will be needed for approximately life time. Order for physical therapy sent in for patient. [employer] Other 02-10-2023 NotePROCEDURE: XR HUMERUS LT MIN 2V, XR HAND LT MIN 3V, XR FOREARM LT 2 VIEWS HISTORY: Falls COMPARISON: None. FINDINGS: BONES:Nondisplaced transverse fracture through neck of radius; no appreciable intra-articular extension. Mildly displaced small fracture fragment from posterior proximal corner of fifth distal phalanx predominantly involving was a degenerative osteophyte. Degenerative changes and degenerative osteophytes involving multiple interphalangeal joints. Degenerative changes of the carpal bones. SOFT TISSUES:No visible soft tissue swelling. EFFUSION:None visible. OTHER: Negative. IMPRESSION: 1. Acute, nondisplaced radial neck fracture. 2. Acute, minimally displaced proximal dorsal corner fracture of fifth distal phalanx. 3. Degenerative changes. Electronically authenticated by: GRADY PARKER Date: 2022-12-18 13:45[facility]02-10-2023 NotePROCEDURE: XR HUMERUS LT MIN 2V, XR HAND LT MIN 3V, XR FOREARM LT 2 VIEWS HISTORY: Falls COMPARISON: None. FINDINGS: BONES:Nondisplaced transverse fracture through neck of radius; no appreciable intra-articular extension. Mildly displaced small fracture fragment from posterior proximal corner of fifth distal phalanx predominantly involving was a degenerative osteophyte. Degenerative changes and degenerative osteophytes involving multiple interphalangeal joints. Degenerative changes of the carpal bones. SOFT TISSUES:No visible soft tissue swelling. EFFUSION:None visible. OTHER: Negative. IMPRESSION: 1. Acute, nondisplaced radial neck fracture. 2. Acute, minimally displaced proximal dorsal corner fracture of fifth distal phalanx. 3. Degenerative changes. Electronically authenticated by: GRADY PARKER Date: 2022-12-18 13:45[facility]02-10-2023 NotePROCEDURE: XR HUMERUS LT MIN 2V, XR HAND LT MIN 3V, XR FOREARM LT 2 VIEWS HISTORY: Falls COMPARISON: None. FINDINGS: BONES:Nondisplaced transverse fracture through neck of radius; no appreciable intra-articular extension. Mildly displaced small fracture fragment from posterior proximal corner of fifth distal phalanx predominantly involving was a degenerative osteophyte. Degenerative changes and degenerative osteophytes involving multiple interphalangeal joints. Degenerative changes of the carpal bones. SOFT TISSUES:No visible soft tissue swelling. EFFUSION:None visible. OTHER: Negative. IMPRESSION: 1. Acute, nondisplaced radial neck fracture. 2. Acute, minimally displaced proximal dorsal corner fracture of fifth distal phalanx. 3. Degenerative changes. Electronically authenticated by: GRADY PARKER Date: 2022-12-18 13:45[facility]01-16-2023 Evaluation note* Encounter Date Diagnosis Assessment Notes Treatment Notes Treatment Clinical Notes Nov, Hypertension (ICD-10 - I10) stable continue present meds Nov, Hypokalemia (ICD-10 - E87.6) recheck with labs. chronic issue Nov, Urinary frequency (ICD-10 - R35.0) will check urine culture - treated with cipro after the office visit due to + urine culture. Nov, Type 2 diabetes mellitus with hyperglycemia, without long-term current use of insulin (ICD-10 - E11.65) will check labs and assess stablility at this time. [employer] Other Chief complaint+Reason for visit Narrative* Chief Complaint Referral Mica Bustos n Hip pain right femoral neck fx s/p giana-arthroplasty [facility] Z96.641 Dm DM Lung Mass Reason for Visit CAD (coronary artery disease) Closed subcapital fracture of neck of right femur Diabetes Hyperlipidemia Hypothyroid Lung mass Postoperative pain CAD (coronary artery disease) Closed subcapital fracture of neck of right femur COVID-19 Diabetes Hyperlipidemia Hypothyroid Lung mass Postoperative pain Yeast UTI History of left breast cancer History of thyroid surgery Mass of right lung History of left breast cancer History of thyroid surgery Mass of right lung [facility] Work Phone: Chief complaint+Reason for visit Narrative* Chief Complaint Referral Mica Juli warren Hip pain right femoral neck fx s/p giana-arthroplasty [facility] Z96.641 Dm Lung Mass DM Amb Documentation Reason for Visit CAD (coronary artery disease) Closed subcapital fracture of neck of right femur Diabetes Hyperlipidemia Hypothyroid Lung mass Postoperative pain CAD (coronary artery disease) Closed subcapital fracture of neck of right femur COVID-19 Diabetes Hyperlipidemia Hypothyroid Lung mass Postoperative pain Yeast UTI History of left breast cancer History of thyroid surgery Mass of right lung History of left breast cancer History of thyroid surgery Mass of right lung [facility] Work Phone: Discharge summary Author Chin Rodarte [facility] October 15, 2023 12:16pm Note Date/Time October 15, 2023 1 2:16pm [facility] [address] [place] [address] Discharge Summary Signed Patient: Heidi Palmer MR#: [id number] : 1940 Acct:[id number] Age/Sex: 83 / F Adm Date: 3 Loc: Room: [address] [place] [address]: Chin Rodarte MD Copies to: MD Mica Hernandes MD~ Providers Date of Discharge: 10/15/23 Discharging Provider: Chin Rodarte Primary Care Provider: Mica Hook Consults: 10/11/23 16:15 Consult to Orthopedic Surgery Stat 10/11/23 16:47 Consult to Orthopedic Surgery Routine Consult to Occupational Therapy Routine Consult to Physical Therapy Routine 10/11/23 17:30 Consult to Dietitian Routine 10/12/23 08:58 Consult to Oncology Routine 10/12/23 14:40 Consult to Occupational Therapy Routine Consult to Physical Therapy Routine 10/13/23 08:59 Consult to Physiatry Routine Discharge Diagnosis (1) Closed subcapital fracture of neck of right femur: (2) Fall: (3) Hypothyroid: (4) Hyperlipidemia: (5) Diabetes: (6) CAD (coronary artery disease): Final Diagnosis Final Discharge Diagnosis: subcapital fracture of the neck of the right femur Summary Hospital Course Hospital course: 83-year-old white female with past medical history of hypertension, hyperlipidemia, diabetes type 2, CAD, history of breast cancer, and hypothyroidism who presented to emergency room with mechanical fall.? She tripped and fell over a couple while she living a doctor appointment.? She landed on her right side.? X-ray showing hip fracture.? Orthopedic asked to admit the patient under medicine service.? She did not loss her consciousness she denies any chest pain or shortness of breath.? She denies having abdominal pain.? No nausea vomiting.? No diarrhea.? Patient admitted to the hospital for further management. A/P Mechanical fall subcapital fracture of the neck of the right femur Seen and examined S/p ORIF of right femur Clinically stable C/o pain Percocet PO PRN every 4 hours PT OT evaluation Lung mass: History of breast cancer CT chest Masslike areas of consolidation are noted along with noncalcified nodules bilaterally as measured above. While these may be infectious in nature, the patient has a history of breast cancer. Metastatic disease is not excluded. There is a small left-sided pleural effusion. There is mild cardiomegaly. There is evidence of previous right hemithyroidectomy and left-sided mastectomy. Oncology was consulted Followed by outpatient with PET scan and biopsy Hypertension: Lisinopril Diabetes type 2: Accu-Chek ACHS/insulin sliding scale hold Januvia for now, willresume at Hyperlipidemia:Lipitor Hypothyroidism: Synthroid DVT prophylaxis: Resume Lovenox SC when ok with ortho Plan to dc to Acute rehab tomorrow? Condition Condition at Discharge: Stable Time Spent with Patient Time spent providing/coordinating discharge services (# min): 36 Surgeries and Procedures Operation Date: 10/12/23 12:00 Actual Procedures p OR Hip Giana-Arthroplasty(Right) - Ismael Booth MD Diagnostic Studies Completed and Pending Studies Pending studies at discharge: 10/12/23 16:10 Urine Culture Routine Preliminary micro results at discharge 10/12/23 16:10 Urine Culture - Preliminary Urine - Joseph Catheter Yeast Like Organism Labs on day of discharge: 10/15/23 11:37: POC Glucose 263, POC Glucose Comment Glu2: cleaned meter 10/15/23 06:45: POC Glucose 250 10/14/23 16:33: POC Glucose 297 10/14/23 06:47: CA 19-9 Antigen 19, CA 27-29 28.1, CA 125 Antigen 33.3 Exam Physical Exam Vital Signs: Temp Pulse Resp BP Pulse Ox O2 Del Method O2 Flow Rate 97.5 F L 67 17 135/74 98 Room Air 1 10/15/23 11:25 10/15/23 11:25 10/15/23 11:25 10/15/23 11:25 10/15/23 11:25 10/15/23 11:29 10/13/23 15:36 Narrative: General patient laying in bed in no acute distress alert awake oriented x3 HEENT PERRLA Neck supple no JVD no carotid bruit CVS S1-S2 regular rate and rhythm no murmur no gallop Chest clear to auscultation percussion Abdomen soft bowel sounds normoactive no rebound no guarding Extremities no stenosis no clubbing no edema Musculoskeletal exam normal no joint effusion Neurologic exam oriented x3 alert awake no focal left Psychiatry: Normal insight and judgment Discharge Plan Discharge Plan Activity: No Activity Restriction Diet: Diabetic Instructions: Femur Fracture (DC) Prescriptions: New levofloxacin 500 mg tablet 500 mg PO DAILY 5 Days Qty: 5 0RF oxycodone-acetaminophen 5-325 mg Tablet 1 tab PO Q4H PRN (Reason: Pain Scale 4 - 7) 5 Days Qty: 10 0RF enoxaparin [Lovenox] 40 mg/0.4 mL Syringe 40 mg subcut DAILY@10 21 Days Qty: 4 0RF Continued atorvastatin [Lipitor] 80 mg Tablet 80 mg PO QHS propranolol 160 mg Capsule,Extended Release 24 Hr 160 mg PO DAILY levothyroxine 50 mcg tablet 50 mcg PO DAILY Patient Comments: TAKE 1 TABLET BY MOUTH EVERY DAY omeprazole 20 mg Capsule,Delayed Release(Dr/Ec) 20 mg PO DAILY zolpidem 5 mg Tablet 10 mg PO QHS cyclosporine [Restasis] 0.05 % Dropperette 1 drp EYE-BOTH Q12H potassium chloride [Klor-Con M10] 10 mEq tablet,ER particles/crystals 10 meq PO DAILY Patient Comments: TAKE 1 TABLET BY MOUTH EVERY DAY Januvia 100 mg Tablet 100 mg PO DAILY Victoza 2-Sterling 0.6 mg/0.1 mL (18 mg/3 mL) Pen Injector 18 mg SUBCUT DAILY aspirin 81 mg Capsule 81 mg PO DAILY insulin degludec [Tresiba FlexTouch U-100] 100 unit/mL (3 mL) Insulin Pen 10 unit SUBCUT DAILY Discontinued ciprofloxacin HCl 500 mg tablet 500 mg PO BID Patient Comments: TAKE 1 TABLET BY MOUTH EVERY 12 HOURS FOR 7 DAYS Documented By: Chin Rodarte MD 10/15/23 1215 Signed By: <Electronically signed by Chin Rodarte MD> 10/15/23 1216 [facility] Work Phone: Evaluation noteNo InformationNort Pryv Other Evaluation noteNo assessment information available [facility] Work Phone: Evaluation note* Diagnosis Onset Date Resolution Status CAD (coronary artery disease) acute Closed subcapital fracture of neck of right femur acute Diabetes acute Fall acute Hyperlipidemia acute Hypothyroid acute [facility] Work Phone: evaluation note* Diagnosis Onset Date Resolution Status CAD (coronary artery disease) acute Closed subcapital fracture of neck of right femur acute Diabetes acute Fall acute History of left breast cancer acute Hyperlipidemia acute Hypothyroid acute Impaired mobility and activities of daily living acute Lung mass acute Postoperative pain acute [facility] Work Phone: evaluation note* Diagnosis Onset Date Resolution Status CAD (coronary artery disease) acute Closed subcapital fracture of neck of right femur acute Diabetes acute Hyperlipidemia acute Hypothyroid acute Lung mass acute Postoperative pain acute CAD (coronary artery disease) acute Closed subcapital fracture of neck of right femur acute COVID-19 acute Diabetes acute Hyperlipidemia acute Hypothyroid acute Lung mass acute Postoperative pain acute Yeast UTI resolved [facility] Work Phone: Evaluation note* Diagnosis Onset Date Resolution Status CAD (coronary artery disease) acute Closed subcapital fracture of neck of right femur acute Diabetes acute Hyperlipidemia acute Hypothyroid acute Lung mass acute Postoperative pain acute CAD (coronary artery disease) acute Closed subcapital fracture of neck of right femur acute COVID-19 acute Diabetes acute Hyperlipidemia acute Hypothyroid acute Lung mass acute Postoperative pain acute Yeast UTI resolved History of left breast cancer acute History of thyroid surgery a cute Mass of right lung acute History of left breast cancer acute History of thyroid surgery a cute Mass of right lung acute [facility] Work Phone: Evaluation note* Diagnosis Coronary artery disease involving [place] coronary artery of [place] heart without angina pectoris- Primary Essential hypertension, benign History of PTCA Postsurgical percutaneous transluminal coronary angioplasty status Mixed hyperlipidemia Edema, unspecified type Never smoked cigarettes documented in this encounter [facility] Work Phone: Evaluation note* Diagnosis Onset Date Resolution Status History of left breast cancer acute History of thyroid surgery a cute Mass of right lung acute History of left breast cancer acute History of thyroid surgery a cute Mass of right lung acute [id number] acute History of right hip hemiarthroplasty acute BMI 26.0-26.9,adult acute Dietary counseling and surveillance acute Hyperlipidemia acute Hypertension acute Type 2 diabetes mellitus with hyperglycemia acute [facility] Work Phone: Evaluation note* Diagnosis Onset Date Resolution Status History of left breast cancer acute History of thyroid surgery a cute Mass of right lung acute History of left breast cancer acute History of thyroid surgery a cute Mass of right lung acute [id number] acute History of right hip hemiarthroplasty acute BMI 26.0-26.9,adult acute Dietary counseling and surveillance acute Hyperlipidemia acute Hypertension acute Type 2 diabetes mellitus with hyperglycemia acute CAD (coronary artery disease) acute History of right hip hemiarthroplasty acute Insomnia acute Type 2 diabetes mellitus with hyperglycemia acute [facility] Work Phone: Evaluation note* Diagnosis Onset Date Resolution Status BMI 26.0-26.9,adult acute Dietary counseling and surveillance acute Hyperlipidemia acute Hypertension acute Type 2 diabetes mellitus with hyperglycemia acute CAD (coronary artery disease) acute History of right hip hemiarthroplasty acute Insomnia acute Type 2 diabetes mellitus with hyperglycemia acute BMI 26.0-26.9,adult acute Dietary counseling and surveillance acute Hyperlipidemia acute Hypertension acute Type 2 diabetes mellitus with hyperglycemia acute [facility] Work Phone: Evaluation note* Diagnosis Onset Date Resolution Status CAD (coronary artery disease) acute History of right hip hemiarthroplasty acute Insomnia acute Type 2 diabetes mellitus with hyperglycemia acute BMI 26.0-26.9,adult acute Dietary counseling and surveillance acute Hyperlipidemia acute Hypertension acute Type 2 diabetes mellitus with hyperglycemia acute Type 2 diabetes mellitus with hyperglycemia acute [facility] Work Phone: Evaluation note* Diagnosis Onset Date Resolution Status Type 2 diabetes mellitus with hyperglycemia acute BMI 26.0-26.9,adult acute Dietary counseling and surveillance acute Hyperlipidemia acute Hypertension acute Type 2 diabetes mellitus with hyperglycemia acute [facility] Work Phone: Evaluation note* Diagnosis Onset Date Resolution Status Type 2 diabetes mellitus with hyperglycemia acute BMI 26.0-26.9,adult acute Dietary counseling and surveillance acute Hyperlipidemia acute Hypertension acute Type 2 diabetes mellitus with hyperglycemia acute History of left breast cancer acute History of thyroid surgery a cute Mass of right lung acute History of left breast cancer acute History of thyroid surgery a cute Mass of right lung acute [facility] Work Phone: History and physical note Author Chin Rodarte [facility] October 11, 2023 4:46pm Note Date/Time October 11, 2023 4 :13pm [facility] [address] [place] [address] Hospitalist H&P Signed Patient: Heidi Palmer MR#: [id number] : 1940 Acct:[id number] Age/Sex: 83 / F Adm Date: 3 Loc: Room: [address] [place] [address] Type: ADM IN Attending Dr: Chin Rodarte MD Copies to: MD Mica Hernandes MD~ HPI DATE OF EXAMINATION: 10/11/23 CHIEF COMPLAINT: Mechanical fall HISTORY OF PRESENT ILLNESS: 83-year-old white female with past medical history of hypertension, hyperlipidemia, diabetes type 2, CAD, history of breast cancer, and hypothyroidism who presented to emergency room with mechanical fall. She tripped and fell over a couple while she living a doctor appointment. She landed on her right side. X-ray showing hip fracture. Orthopedic asked to admit the patient under medicine service. She did not loss her consciousness she denies any chest pain or shortness of breath. She denies having abdominal pain. No nausea vomiting. No diarrhea. Patient admitted to the hospital for further management. Review of Systems Review of Systems All other systems reviewed & are negative unless noted below or in HPI [facility] Medical History (Updated 10/11/23 @ 16:39 by Chin Rodarte MD) Abnormal breast biopsy Breast cancer CAD (coronary artery disease) Diabetes DJD (degenerative joint disease) Hyperlipidemia Hypothyroid Surgical History History of ankle surgery History of cardiac cath History of left mastectomy Hx of tonsillectomy Family History Father Diabetes Enlarged heart Mother CAD (coronary artery disease) Sister Lung cancer Social History Smoking Status: Never smoker Substance Use Type: None Meds Medications and Allergies Allergies cilostazol Allergy (Verified 10/11/23 13:33) unknown Penicillins Allergy (Verified 10/11/23 13:33) Anaphylaxis metformin Adverse Reaction (Verified 10/11/23 13:33) Vomiting Home Medications aspirin 81 mg capsule 81 mg PO DAILY 10/11/23 [History Confirmed 10/11/23] atorvastatin 80 mg tablet (Lipitor) 80 mg PO QHS 10/11/23 [History Confirmed 10/11/23] ciprofloxacin HCl 500 mg tablet 500 mg PO BID 10/11/23 [History Confirmed 10/11/23] cyclosporine 0.05 % eye drops in a dropperette (Restasis) 1 drp Eye-Both Q12H 10/11/23 [History Confirmed 10/11/23] levothyroxine 50 mcg tablet 50 mcg PO DAILY 10/11/23 [History Confirmed 10/11/23] liraglutide 0.6 mg/0.1 mL (18 mg/3 mL) subcutaneous pen injector (Victoza 2- Sterling)18 mg subcut DAILY 10/11/23 [History Confirmed 10/11/23] lisinopril 5 mg tablet 5 mg PO DAILY 10/11/23 [History Confirmed 10/11/23] omeprazole 20 mg capsule,delayed release 20 mg PO DAILY 10/11/23 [History Confirmed 10/11/23] potassium chloride 10 mEq tablet,extended release(part/cryst) (Klor-Con M) 10 meq PO DAILY 10/11/23 [History Confirmed 10/11/23] propranolol 160 mg capsule,24 hr,extended release 160 mg PO DAILY 10/11/23 [History Confirmed 10/11/23] sitagliptin phosphate 100 mg tablet (Januvia) 100 mg PO DAILY 10/11/23 [History Confirmed 10/11/23] zolpidem 5 mg tablet 10 mg PO QHS 10/11/23 [History Confirmed 10/11/23] Exam Physical Exam Vital Signs: Temp Pulse Resp BP Pulse Ox O2 Del Method 98.4 F 64 18 170/80 H 95 Room Air 10/11/23 13:56 10/11/23 15:30 10/11/23 15:30 10/11/23 13:56 10/11/23 15:30 10/11/23 15:30 Narrative: General patient laying in bed in no acute distress alert awake oriented x3 HEENT PERRLA Neck supple no JVD no carotid bruit CVS S1-S2 regular rate and rhythm no murmur no gallop Chest clear to auscultation percussion Abdomen soft bowel sounds normoactive no rebound no guarding Extremities no stenosis no clubbing no edema Musculoskeletal exam normal no joint effusion Neurologic exam oriented x3 alert awake no focal left Psychiatry: Normal insight and judgment Results Lab Results Labs: Laboratory Last Values Corrected WBC 10.1 X10E3/uL (3.8-11.6) 10/11/23 13:43 Uncorrected WBC Count 10.1 x10E3/uL (3.8-11.6) 10/11/23 13:43 RBC 4.87 X10E6/uL (3.60-5.00) 10/11/23 13:43 Hgb 14.8 g/dL (11.8-15.4) 10/11/23 13:43 Hct 44.1 % (34.0-46.4) 10/11/23 13:43 MCV 90.5 fl (80-100) 10/11/23 13:43 MCH 30.4 pg (24.7-34.3) 10/11/23 13:43 MCHC 33.6 g/dL (32.0-35.0) 10/11/23 13:43 RDW 14.2 % (11.9-15.3) 10/11/23 13:43 Plt Count 323 x10E3/uL (150-450) 10/11/23 13:43 MPV 8.4 fl (6.3-10.7) 10/11/23 13:43 Neut % (Auto) 67.6 % (.) 10/11/23 13:43 Lymph % (Auto) 21.3 % (.) 10/11/23 13:43 [place] % (Auto) 8.4 % (.) 10/11/23 13:43 Eos % (Auto) 1.7 % (.) 10/11/23 13:43 Baso % (Auto) 1.0 % (.) 10/11/23 13:43 Nucleat RBC Rel Count 0.1 /100 WBC (0-0.5) 10/11/23 13:43 Neut # (Auto) 6.9 x10E3/uL (1.8-7.7) 10/11/23 13:43 Lymph # (Auto) 2.2 x10E3/uL (1.00-4.8) 10/11/23 13:43 [place] # (Auto) 0.8 x10E3/uL (0.0-0.8) 10/11/23 13:43 Eos # (Auto) 0.2 x10E3/uL (0.0-0.45) 10/11/23 13:43 Baso # (Auto) 0.1 x10E3/uL (0.0-0.2) 10/11/23 13:43 Monocyte Dist Width 17.73 % (0.00-20.00) 10/11/23 13:43 PT 12.3 Seconds (9.0-12.9) 10/11/23 13:43 INR 1.0 10/11/23 13:43 APTT 32.0 Seconds (25.1-36.5) 10/11/23 13:43 PHA Creatinine Clear N/A 10/11/23 13:43 Sodium 133 mmol/L (136-145) L 10/11/23 13:43 Potassium 4.5 mmol/L (3.5-5.1) 10/11/23 13:43 Chloride 100 mmol/L (98-107) 10/11/23 13:43 Carbon Dioxide 27.4 mmol/L (21.0-31.0) 10/11/23 13:43 Anion Gap 10.1 mEq/L (6.0-15.0) 10/11/23 13:43 BUN 11 mg/dL (7-25) 10/11/23 13:43 Creatinine 0.77 mg/dL (0.60-1.20) 10/11/23 13:43 Est GFR (CKD-EPI) > 60.0 mL/Min 10/11/23 13:43 Glucose 418 mg/dL (70-100) H 10/11/23 13:43 Calcium 9.5 mg/dL (8.6-10.3) 10/11/23 13:43 Blood Type O Negative 10/11/23 13:43 Blood Type Recheck O Negative 10/11/23 14:47 Antibody Screen Negative 10/11/23 13:43 Assessment & Plan Assessment/Plan (1) Closed subcapital fracture of neck of right femur: (2) Fall: (3) Hypothyroid: (4) Hyperlipidemia: (5) Diabetes: (6) CAD (coronary artery disease): Plan 83-year-old white female with past medical history of hypertension, hyperlipidemia, diabetes type 2, CAD, history of breast cancer, and hypothyroidism who presented to emergency room with mechanical fall. She tripped and fell over a couple while she living a doctor appointment. She landed on her right side. X-ray showing hip fracture. Orthopedic asked to admit the patient under medicine service. She did not loss her consciousness she denies any chest pain or shortness of breath. She denies having abdominal pain. No nausea vomiting. No diarrhea. Patient admitted to the hospital for further management. A/P Mechanical fall subcapital fracture of the neck of the right femur Inpatient admission to medical surgical floor Patient will require more than 2 days in the hospital Percocet 1 tablet every 4 hours as needed for pain Morphine 2 mg every 4 hours as needed PT OT evaluation PT OT evaluation Social service consult Lung mass: Hisotry of breast cancer CT chest Masslike areas of consolidation are noted along with noncalcified nodules bilaterally as measured above. While these may be infectious in nature, the patient has a history of breast cancer. Metastatic disease is not excluded. There is a small left-sided pleural effusion. There is mild cardiomegaly. There is evidence of previous right hemithyroidectomy and left-sided mastectomy. Will need oncology follow up Hypertension: Lisinopril Diabetes type 2: Accu-Chek ACHS/insulin sliding scale hold Januvia for now, willresume at Hyperlipidemia: Resume lipid Hypothyroidism: Resume Synthroid DVT prophylaxis: Resume Lovenox SC IP vs OBS Justification Based on differential dx, clinical care plan, and risk of adverse events, if untreated, in my clinical judgement this patient requires an acute care setting as: INPATIENT because of an expectation of an over 2 midnight stay. Estimated length of stay (# of days): 3 Documented By: Chin Rodarte MD 10/11/23 1609 Signed By: <Electronically signed by Chin Rodarte MD> 10/11/23 1641 [facility] Work Phone: [place] general Narrative - Reported* Type Description Date Medical History Diabetes Medical History Sciatica Medical History Hypertension Medical History Hyperlipidemia Medical History Hypokalemia Medical History H/O left mastectomy Medical History History of cancer Surgical History Breast cancer removed Surgical History Cancer >25 years Ago Surgical History Left Masectomy Surgical History Left Ankle Surgery Surgical History Thyroid lump removed - not canc er Surgical History 7 Stents in Heart Surgical History Ankle surgery Surgical History back surgery 2020 Surgical History Tonsils out- child Surgical History Discectomy L3-4 05/2019 Hospitalization History [facility] 2018 Hospitalization History See Above [employer] Other Hissnxz general Narrative - Reported* Type Description Date Medical History Diabetes Medical History Sciatica Medical History Hypertension Medical History Hyperlipidemia Medical History Hypokalemia Medical History H/O left mastectomy Medical History History of cancer Medical History right hip fracture Surgical History Breast cancer removed Surgical History Cancer >25 years Ago Surgical History Left Masectomy Surgical History Left Ankle Surgery Surgical History Thyroid lump removed - not canc er Surgical History 7 Stents in Heart Surgical History Ankle surgery Surgical History back surgery 2020 Surgical History Tonsils out- child Surgical History Discectomy L3-4 05/2019 Surgical History right fracture repair Hospitalization History [facility] 2018 Hospitalization History See Above [employer] Other History of Present illness NarrativePatient returns in follow-up of problems as noted. She is doing well. She denies any other symptoms of coronary disease that preceded her original diagnosis and subsequent PTCA. Treatment of risk factors including diabetes hypertension and hyperlipidemia is reviewed and felt to be adequate and appropriate. She was educated regarding symptoms to watch for and encouraged to call if they arise but otherwise we will plan to see her as noted.-[facility] 250 DO Work Phone: History of Present illness NarrativePatient returns in follow-up of problems as noted. In the interim she is done well and has had no clinical events. It appears her blood pressure is adequately controlled. We note her cholesterol is not treated and upon our review we note that her LDL cholesterol is in excess of 200. Because of thisI recommend statin therapy. She was initially resistant but her daughter is with her and she supports my recommendation. I pointed out to her that we do not wish another blockage that would lead to another PTCA in that regard she agrees and ultimately she will take the medication. Otherwise her blood pressure and diabetes appear to be adequately controlled. She is very happy regarding our implementation of diuretic therapy to treat her edema because she states she did lose 33 pounds of edema fluid after the adjustments in therapy and for this she wishes to continue therapy as before. We discussed her body mass index and it is ideal and she also has an never smoker in light of all the above we believe her cardiac risk has been adequately mitigated now with the introduction of statin [facility] 250 DO Work Phone: Progress note Author Tosha Patel [facility] December 08, 2023 11:56am Note Date/Time December 08, 2023 1 1:19am [facility] [place] [address] Cancer Center Note Signed Patient: Heidi Palmer MR#: [id number] : 1940 Acct:[id number] Age/Sex: 83 / F Type: REG AMB Copies to: Mica Hook MD~ Assessment & Plan A/P (1) History of left breast cancer: (2) History of thyroid surgery: (3) Mass of right lung: Plan (1) Mass of right lung Bilateral lower lung masses largest is in the right upper lung 3.1 cm. In lightof history of left breast cancer when she was in her 50s we investigated her with a tumor markers including CEA, CA 19-9, CEA 8 27?29, and CA125 and all cameback normal on 10/14/23. Further workup for autoimmune diseases came back negative for ANDREIA, ANCA, rheumatoid factor, vasculitis markers and also is. PET CT scan 11/24/2023 did not show convincing evidence of highly suspicious lesion for metastatic or primary malignant masses of the lungs as abnormalities were likely minimally hypermetabolic but could be inflammatory or scars. No FDG avid lymphadenopathy. However the PET scan shows enlarging right pleural effusion. Clinically as of 12/08/2023 revealed worsening bilateral lower extremity edema. She does not look short of breath. IR stated there was no areas to biopsy therefore the lung biopsy was canceled. Because of the persistent right pleural effusion and persistent atelectasis scars/inflammation we will send the patient to pulmonary for further evaluation. I also asked her to have a follow-up with her business banking representative Dr. Stark since she has worsening bilateral lower extremity edema. Plan is to do a CT of the chest without contrast in 6 months and see her then infollow-up for the bilateral lung masses initially seen for 1 more confirmation of that reveals no more masses than we can discharge her from our oncology practice. (2) History of left breast cancer She underwent left mastectomy without any adjuvant radiation or chemotherapy or adjuvant endocrine therapy in her early to mid 50s.. About 3 to 5 years after that left mastectomy she underwent partial lumpectomy of the of the right breastbut the pathology was benign. Her last mammogram on 12/01/2023 was normal or negative for suspicious masses. (3) History of thyroid surgery Will obtain the path report from 08/02/2023 from [facility] for the needlebiopsy of the thyroid nodule. She had right hemithyroidectomy in her mid 50s but she claimed that it was not cancerous. Orders: Orders CT chest wo con 6 Months M51.16 - Intervertebral disc disorders with radiculopathy, lumbar region Referrals Referral to Pulmonology R91.8 - Other nonspecific abnormal finding of lung field Referral to Cardiology M79.89 - Other specified soft tissue disorders, R91.8 - Other nonspecific abnormal finding of lung field Patient Instructions: Ct chest w/o contrast in 6 months f/u Dr Claros after refer to pulmonology refer to Dr Hayward CHEMO PLAN No Active Chemotherapy History of Present Illness HPI Chief Complaint: Patient is here for an inpatient follow up for a bilateral lungmass with history of left breast cancer. HPI: Reason for Consult: Bilateral lung mass especially in the right upper lung with a history of left breast cancer History of Present Illness: Heidi is 83-year-old nice lady with history of hypertension, hyperlipidemia, hypothyroidism who has osteoarthritis and fell on 10/11/2023 sustaining right femoral neck fracture required open reduction and internal fixation on 10/12/2023here at [facility] by orthopedic surgery. As part of the fall evaluation she had a CT of head neck chest x-rays of the bones in addition to the femoral she was found to have bilateral noncalcified lung nodules the largest of which is in the right upper lung. CAT scan of the chest was done on 10/11/2023 revealed the largest mass in the right upper lung 3.1 cm cannot rule out metastatic disease versus infections. For therefore oncology was consulted for further recommendations. As of 10/13/2023 morning when I saw her she was toolethargic little bit not very good historian but she stated that she had a left breast surgery probably at [facility] about 3035 years ago and she was inher 50s. She said that the surgeon who did the left mastectomy was Dr. Cesar who and replaced by Dr. Stark. She has not seen any medical oncology to her menorrhagia or needed any radiation or chemotherapy to her left breast cancer. She is not sure what stage she had however I spoke to her daughter Lyubov and called her son Ulices prior to the formation from her message. Her daughter told me to him what she remembers she had a left breast cancer probablywas early stage may be stage I required mastectomy. And had lymph node biopsieswhich probably was benign but she does not remember what type of breast cancer it was. 5 years later she had hemithyroidectomy for large thyroid gland but to her knowledge it was not cancerous. Her mom never smoked tobacco and does not drink alcohol but her sister The patient's sister had breast cancer and also lung cancer as well. No family history of colon cancer. Her mom lives alone but her son Ulices lives close by. The daughter Lyubov lives in [place]. Patient has not seen oncologist to her daughter's knowledge. In terms of the review of system patient denied any headaches or blurry vision or chest pain or shortness of breath or hemoptysis however she has some cough for couple of months. She denies any abdominal pain or nausea or vomiting or diarrhea or rectal bleed or melena or gross hematuria. Rest of the review of systems were reviewed and were negative. CT chest w con 10/11/2023 4:02 PM SIGN AND SYMPTOMS: Fall, right hip and knee pain, noncalcified nodules are notedin the right upper lobe on cervical spine CT suggestive of metastatic disease. CONTRAST: 90 mL of intravenous Isovue-300 TECHNIQUE: Multidetector CT axial slices of the chest were obtained with IV contrast. Multiplanar reformats were performed and viewed on a separate workstation and reviewed to further define anatomy and possible pathology. CT was performed with one or more of the following dose reduction techniques: Automated exposure control, adjustment of the mA and/or kV according to patient size, or use of iterative reconstruction technique. COMPARISON: Cervical spine CT from the same date. FINDINGS: Lower neck: There is right hemithyroidectomy. Vessels: Atherosclerotic changes are present in the thoracic aorta, origins of great vessels, and coronary arteries. Mediastinum and Amparo: Within normal limits. Heart: There is mild cardiomegaly. No pericardial effusion. Airways: Within normal limits Lungs: Multiple noncalcified nodules and masslike areas of consolidation are noted bilaterally. The largest in the right upper lobe measures 3.1 cm in greatest dimension. The largest in the left lower lobe measures 1 cm in greatestdimension. The largest in the left upper lobe measures 1.8 cm in greatest dimension. These are suspicious for malignancy given the history of previous breast cancer. Additionally these may be infectious in nature. Pleura: There is a small left-sided pleural effusion. Chest Wall: There is evidence of previous left mastectomy. Upper Abdomen: Within normal limits. Bones: Degenerative changes are noted in the shoulders and thoracic spine. CT/CT chest w con IMPRESSION: Masslike areas of consolidation are noted along with noncalcified nodules bilaterally as measured above. While these may be infectious in nature, the patient has a history of breast cancer. Metastatic disease is not excluded. There is a small left-sided pleural effusion. There is mild cardiomegaly. There is evidence of previous right hemithyroidectomy and left-sided mastectomy. 11/17/23: She came to our cancer center with her daughter for inpatient follow up and planning for RUL lung mass biopsy and planning for further evaluation with PET CT scan, screening mammogram and further testing if needed. She stated back on 08/02/23, she had thyroid nodule biopsy at [facility] which was negative for cancer. Path report is not available to us but will obtain it from there. She denied CP or SOB or wheezing but has stuffy nose form allergies chronically. She denied history of molds in her house. She denied bleeding from any source or weight loss. She recovered form her right hip fracture surgery done on 10/12/23 and completed her rehab therapy. 12/08/2023: She is here for the results of the PET CT scan and part of the labs workup results for SONIYA, rheumatoid factor, ANDREIA, vasculitis markers which all came back normal or negative. The PET scan done on 11/24/2022 revealed no FDG avid lymphadenopathy and minimal haziness or activities in the lungs but no convincing activity to require a biopsy as this could be inflammation or or atelectasis. Did show enlarging right pleural effusion however. Her mammogram was benign and was done on 12/01/2023. Patient denies any shortness of breath orcough or hemoptysis. She has however worsening bilateral lower extremity edema. She has not seen Dr. Stark her business banking representative for a while now but she is already taking Lasix. 14 points ROS was obtained and was negative. Intake Vitals/Pain Assessment 12/08/23 11:20 Height 5 ft 2 in Weight 72.575 kg BMI 29.2 Body Fat % 49.02 BP 140/70 Blood Pressure Location Rt brachial Position Sitting Temp 97.0 F L Temp Source Temporal Pulse 64 Pulse Source NIBP Respiration 16 Pulse Oximetry (%) 98 Are you having pain? Yes Pain Location right upper leg Intake Visit Reasons: follow up visit Allergies cilostazol Allergy (Verified 12/08/23 11:25) unknown Penicillins Allergy (Verified 12/08/23 11:25) Anaphylaxis metformin Adverse Reaction (Verified 12/08/23 11:25) Vomiting oxycodone Adverse Reaction (Verified 12/08/23 11:25) Hallucinating - Last Reconciled 12/08/23 by Maria Duenas acetaminophen (Tylenol) 650 mg (2 x 325 mg) PO TID ascorbic acid (vitamin C) (Vitamin C) 500 mg PO DAILY 30 days aspirin 81 mg PO DAILY aspirin 81 mg PO BID 20 days atorvastatin 80 mg PO QHS 30 days calcium carbonate-vitamin D3 500 mg-5 mcg (200 unit) (Oyster Shell Calcium- Vitamin D3) 1 tab PO BID cyclosporine 0.05% (Restasis) 1 drp Eye-Both Q12H 30 days dextromethorphan-guaifenesin 30-600 mg (Mucinex DM) 1 tab PO Q12HR diclofenac sodium 1% 2 grams topical TID docusate sodium 100 mg PO BID insulin aspart U-100 (Novolog FlexPen U-100 Insulin aspart) 1 sliding scale dosesubcut TID.WM.HS insulin glargine (Lantus Solostar U-100 Insulin) 25 units (0.25 mL) subcut DAILY30 days levothyroxine 50 mcg PO DAILY.0630 30 days melatonin 5 mg PO QHS PRN oxycodone-acetaminophen 5-325 mg 1 tab PO Q4H PRN 7 days pantoprazole 40 mg PO DAILY 30 days pioglitazone 45 mg (3 x 15 mg) PO DAILY@0800 30 days potassium chloride ER (Klor-Con) 10 mEq PO DAILY 30 days propranolol ER 160 mg (2 x 80 mg) PO DAILY 30 days zinc gluconate 50 mg PO DAILY 30 days zolpidem 10 mg PO QHS 7 days PHQ-2/9 In last 2 wks how often bothered by any of these problems? Little interest or pleasure in doing things: not at all Feeling down, depressed, or hopeless: not at all PHQ-2 Total Score: 0 Gastrointestinal Is the patient taking opioids for pain control?: No Bowel Pattern: Regular Falls Fall Precaution Measures Taken: Patient in chair Nurse's Note: Patient is here today for a 3 week follow up visit for lung mass and history of breast cancer and go over PET scan and mamogram [facility] Medical History Medical History (Updated 11/17/23 @ 12:22 by Tosha Patel MD) Hypertension Impaired mobility and activities of daily living History of left breast cancer Lump of right breast Fall Abnormal breast biopsy DJD (degenerative joint disease) CAD (coronary artery disease) Hyperlipidemia Diabetes Hypothyroid Breast cancer left Surgical History Surgical History (Updated 11/17/23 @ 12:18 by Tosha Patel MD) History of ankle surgery H/O elbow surgery left elbow History of cardiac cath with stents x 7 Hx of tonsillectomy History of left mastectomy History of ankle surgery Family History Family History Father Diabetes Enlarged heart Mother CAD (coronary artery disease) Sister Lung cancer Social History Social History (Updated 12/08/23 @ 11:27 by Maria Duenas) Smoking status: Never smoker Within the past year, how often did you have a drink containing alcohol: never AUDIT-C Alcohol total score: 0 AUDIT-C Alcohol score interpretation: A score less than 3 is consistent with normal alcohol consumption. In the past 12 months, have you used illegal drugs or prescription drugs for non-medical reasons?: No Review of Systems General: Patient denied fevers, chills, rigors, weight loss or loss of appetite. Head: Patient denied any headaches or vision changes Thoracic: Patient denied any shortness of breath or cough or hemoptysis Cardiovascular patient denies any chest pain or leg edema GI: Patient denies any nausea vomiting rectal bleed diarrhea : Patient denied gross hematuria. Hematology: Patient denied any bleeding from any source. No easy bruising. Lymphatic: No enlarged LAP anywhere. Skin: Normal skin exam no rashes or suspicious lesions. Neurological patient denies any headache or dizziness or focal weakness or sensory changes. Physical Exam EXAM HEENT normocephalic atraumatic pupils are equal and round Neck supple without thyromegaly or any cervical lymphadenopathy. Chest clear to auscultation bilaterally without wheezing crackles or rhonchi Heart regular rate and rhythm S1-S2 without murmurs gallop or rub Abdomen soft nontender not distended without hepatosplenomegaly or masses clinically Extremities no edema of the lower extremities Skin without any suspicious rashes Lymphatic system no lymphadenopathy in the cervical area axillary areas or inguinal areas bilaterally Neurological exam patient is cooperative alert and oriented x3 no focal deficits. Results LAB RESULTS No Data to Display RADIOLOGY/IMAGING RESULTS Mammogram on 12/01/2023: NO MAMMOGRAPHIC EVIDENCE OF MALIGNANCY. ROUTINE FOLLOW-UP IS RECOMMENDED IN ONE YEAR. PET [address] scan 11/24/2019: MILDLY HYPERMETABOLIC LINGULAR AND LEFT LOWER LOBE PULMONARY NODULARITY. FINDINGS ARE NOT DEFINITIVE FOR NEOPLASM AND INFECTIOUS OR INFLAMMATORY PROCESSES ARE STILL IN THE DIFFERENTIAL. CONTINUED CT FOLLOW-UP IS SUGGESTED. NO HYPERMETABOLIC ADENOPATHY. ENLARGING RIGHT PLEURAL EFFUSION AND CONTINUED MILD BILATERAL ATELECTASIS. INCIDENTAL CHOLELITHIASIS AND DIVERTICULOSIS. Dictated By: Tosha Patel MD DD/ [id number] Signed By: <Electronically signed by Tosha Patel MD> 12/08/23 1156 [facility] Work Phone: Progress note Author Tosha Patel [facility] [place] June 09, 2024 11:19am Note Date/Time June 09, 2024 10: 51am [facility] [place] [address] Cancer Center Note Signed Patient: Heidi Palmer MR#: [id number] : 1940 Acct:[id number] Age/Sex: 84 / F Type: REG AMB Date of Service: 06/09/24 Copies to: Mica Hook MD~ Assessment & Plan A/P (1) History of left breast cancer: (2) History of thyroid surgery: (3) Mass of right lung: Plan (1) Mass of right lung Bilateral lower lung masses largest is in the right upper lung 3.1 cm. In lightof history of left breast cancer when she was in her 50s we investigated her with a tumor markers including CEA, CA 19-9, CEA 8 27?29, and CA125 and all cameback normal on 10/14/23. Further workup for autoimmune diseases came back negative for ANDREIA, ANCA, rheumatoid factor, vasculitis markers and also is. PET CT scan 11/24/2023 did not show convincing evidence of highly suspicious lesion for metastatic or primary malignant masses of the lungs as abnormalities were likely minimally hypermetabolic but could be inflammatory or scars. No FDG avid lymphadenopathy. However the PET scan shows enlarging right pleural effusion. Clinically as of 12/08/2023 revealed worsening bilateral lower extremity edema. She does not look short of breath. IR stated there was no areas to biopsy therefore the lung biopsy was canceled. Because of the persistent right pleural effusion and persistent atelectasis scars/inflammation we will send the patient to pulmonary for further evaluation. I also asked her to have a follow-up with her business banking representative Dr. Stark since she has worsening bilateral lower extremity edema. Plan is to do a CT of the chest without contrast in 6 months and see her then infollow-up for the bilateral lung masses initially seen for 1 more confirmation of that and if it reveals no more masses then we can discharge her from our oncology practice. Ct chest 06/07/24 revealed: The masslike areas of consolidation seen on the prior study have essentially resolved. There is residual tree-in-bud nodularity involving the left upper lobe and lingula and to lesser degree left lower lobe. Findings suggest response to therapy. Repeat CT is recommended to ensure complete resolution. Plan: She stopped seeing Dr. Wild of and does not have any follow-up with them to follow on the lung nodules that seen on the CAT scan. The right lung mass initially seen previously has resolved on the current CAT scans. She currently does not smoke. We will follow her with once a year scans on the low-dose but we will combine them with her screening mammogram in November of every year I will see her afterwards. So the plan is obtain low-dose chest CT screening mammogram in November or December 2024 and see her afterwards. (2) History of left breast cancer She underwent left mastectomy without any adjuvant radiation or chemotherapy or adjuvant endocrine therapy in her early to mid 50s.. About 3 to 5 years after that left mastectomy she underwent partial lumpectomy of the of the right breastbut the pathology was benign with fibrotic tissue only. Her last mammogram on 12/01/2023 was normal or negative for suspicious masses. (3) History of thyroid surgery Will obtain the path report from 08/02/2023 from [facility] for the needlebiopsy of the thyroid nodule. She had right hemithyroidectomy in her mid 50s but she claimed that it was not cancerous. - Pathology revealed benign follicular nodule that was done on 08/02/2023. CHEMO PLAN No Active Chemotherapy History of Present Illness HPI Chief Complaint: Patient is here for an inpatient follow up for a bilateral lungmass with history of left breast cancer. HPI: Reason for Consult: Bilateral lung mass especially in the right upper lung with a history of left breast cancer History of Present Illness: Heidi is 83-year-old nice lady with history of hypertension, hyperlipidemia, hypothyroidism who has osteoarthritis and fell on 10/11/2023 sustaining right femoral neck fracture required open reduction and internal fixation on 10/12/2023here at [facility] by orthopedic surgery. As part of the fall evaluation she had a CT of head neck chest x-rays of the bones in addition to the femoral she was found to have bilateral noncalcified lung nodules the largest of which is in the right upper lung. CAT scan of the chest was done on 10/11/2023 revealed the largest mass in the right upper lung 3.1 cm cannot rule out metastatic disease versus infections. For therefore oncology was consulted for further recommendations. As of 10/13/2023 morning when I saw her she was toolethargic little bit not very good historian but she stated that she had a left breast surgery probably at [facility] about 3035 years ago and she was inher 50s. She said that the surgeon who did the left mastectomy was Dr. Cesar who and replaced by Dr. Stark. She has not seen any medical oncology to her menorrhagia or needed any radiation or chemotherapy to her left breast cancer. She is not sure what stage she had however I spoke to her daughter Lyubov and called her son Ulices prior to the formation from her message. Her daughter told me to him what she remembers she had a left breast cancer probablywas early stage may be stage I required mastectomy. And had lymph node biopsieswhich probably was benign but she does not remember what type of breast cancer it was. 5 years later she had hemithyroidectomy for large thyroid gland but to her knowledge it was not cancerous. Her mom never smoked tobacco and does not drink alcohol but her sister The patient's sister had breast cancer and also lung cancer as well. No family history of colon cancer. Her mom lives alone but her son Ulices lives close by. The daughter Lyubov lives in [place]. Patient has not seen oncologist to her daughter's knowledge. In terms of the review of system patient denied any headaches or blurry vision or chest pain or shortness of breath or hemoptysis however she has some cough for couple of months. She denies any abdominal pain or nausea or vomiting or diarrhea or rectal bleed or melena or gross hematuria. Rest of the review of systems were reviewed and were negative. CT chest w con 10/11/2023 4:02 PM SIGN AND SYMPTOMS: Fall, right hip and knee pain, noncalcified nodules are notedin the right upper lobe on cervical spine CT suggestive of metastatic disease. CONTRAST: 90 mL of intravenous Isovue-300 TECHNIQUE: Multidetector CT axial slices of the chest were obtained with IV contrast. Multiplanar reformats were performed and viewed on a separate workstation and reviewed to further define anatomy and possible pathology. CT was performed with one or more of the following dose reduction techniques: Automated exposure control, adjustment of the mA and/or kV according to patient size, or use of iterative reconstruction technique. COMPARISON: Cervical spine CT from the same date. FINDINGS: Lower neck: There is right hemithyroidectomy. Vessels: Atherosclerotic changes are present in the thoracic aorta, origins of great vessels, and coronary arteries. Mediastinum and Amparo: Within normal limits. Heart: There is mild cardiomegaly. No pericardial effusion. Airways: Within normal limits Lungs: Multiple noncalcified nodules and masslike areas of consolidation are noted bilaterally. The largest in the right upper lobe measures 3.1 cm in greatest dimension. The largest in the left lower lobe measures 1 cm in greatestdimension. The largest in the left upper lobe measures 1.8 cm in greatest dimension. These are suspicious for malignancy given the history of previous breast cancer. Additionally these may be infectious in nature. Pleura: There is a small left-sided pleural effusion. Chest Wall: There is evidence of previous left mastectomy. Upper Abdomen: Within normal limits. Bones: Degenerative changes are noted in the shoulders and thoracic spine. CT/CT chest w con IMPRESSION: Masslike areas of consolidation are noted along with noncalcified nodules bilaterally as measured above. While these may be infectious in nature, the patient has a history of breast cancer. Metastatic disease is not excluded. There is a small left-sided pleural effusion. There is mild cardiomegaly. There is evidence of previous right hemithyroidectomy and left-sided mastectomy. 11/17/23: She came to our cancer center with her daughter for inpatient follow up and planning for RUL lung mass biopsy and planning for further evaluation with PET CT scan, screening mammogram and further testing if needed. She stated back on 08/02/23, she had thyroid nodule biopsy at [facility] which was negative for cancer. Path report is not available to us but will obtain it from there. She denied CP or SOB or wheezing but has stuffy nose form allergies chronically. She denied history of molds in her house. She denied bleeding from any source or weight loss. She recovered form her right hip fracture surgery done on 10/12/23 and completed her rehab therapy. 12/08/2023: She is here for the results of the PET CT scan and part of the labs workup results for SONIYA, rheumatoid factor, ANDREIA, vasculitis markers which all came back normal or negative. The PET scan done on 11/24/2022 revealed no FDG avid lymphadenopathy and minimal haziness or activities in the lungs but no convincing activity to require a biopsy as this could be inflammation or or atelectasis. Did show enlarging right pleural effusion however. Her mammogram was benign and was done on 12/01/2023. Patient denies any shortness of breath orcough or hemoptysis. She has however worsening bilateral lower extremity edema. She has not seen Dr. Stark her business banking representative for a while now but she is already taking Lasix. 06/09/24: She is here for the 6 months follow-up for her history of the right lung mass and history of breast cancer as well as history of thyroid surgery that turned back to be benign follicular nodule. She is here for the results of the CAT scan of the chest done on 06/07/2024 patient continued on the same leg swelling for which she is on Lasix. Denies any chest pain or shortness of breath at resthowever she gets shortness of breath with exertion. She denies any new masses or in the breast or chest jefferson or secondary lesions. Denies any hemoptysis or persistent cough. No chest pain Ct chest 06/07/24 revealed: The masslike areas of consolidation seen on the prior study have essentially resolved. There is residual tree-in-bud nodularity involving the left upper lobe and lingula and to lesser degree left lower lobe. Findings suggest responseto therapy. Repeat CT is recommended to ensure complete resolution. . 14 points ROS was obtained and was negative. Intake Vitals/Pain Assessment 06/09/24 10:53 Height 5 ft 2 in Weight 64.41 kg BMI 25.9 Body Fat % 45.27 BP 153/76 H Blood Pressure Location Lt brachial Position Sitting Temp 97.6 F Temp Source Temporal Pulse 62 Pulse Source NIBP Respiration 16 Pulse Oximetry (%) 96 Oxygen Delivery Method room air Are you having pain? Yes: chronic right hip pain Intake Visit Reasons: follow up visit Allergies metformin Allergy (Unknown, Verified 06/09/24 10:56) Vomiting oxycodone Allergy (Unknown, Verified 06/09/24 10:56) Hallucinating Penicillins Allergy (Unknown, Verified 06/09/24 10:56) Anaphylaxis cilostazol Allergy (Verified 06/09/24 10:56) unknown - Last Reconciled 06/09/24 by Maria Duenas acetaminophen (Tylenol) 650 mg PO TID PRN ascorbic acid (vitamin C) (Vitamin C) 500 mg PO DAILY 30 days aspirin 81 mg PO DAILY atorvastatin 80 mg PO QHS blood sugar diagnostic (OneTouch Ultra Test strips) As directed blood-glucose meter (VoiceBox TechnologiesTouch Ultra2 Meter) As directed blood-glucose sensor (FreeStyle Rocio 3 Sensor device) As directed invitro, change every 14 days calcium carbonate-vitamin D3 500 mg-5 mcg (200 unit) (Oyster Shell Calcium- Vitamin D3) 1 tab PO BID diclofenac sodium 1% 2 grams topical TID PRN diphenhydramine HCl (Benadryl) 25 mg PO TID PRN insulin glargine-lixisenatide 100 unit-33 mcg/mL (Soliqua 100/33) 23 units (0.23mL) subcut DAILY lancets (VoiceBox TechnologiesTouch Delica Plus Lancet) As directed levothyroxine 50 mcg PO DAILY.0630 30 days melatonin 5 mg PO QHS PRN potassium chloride ER (Klor-Con) 10 mEq PO DAILY 90 days propranolol ER TAKE 1 CAPSULE BY MOUTH EVERY DAY senna (Senokot) PO spironolactone 25 mg PO BID zolpidem 5 mg PO QHS PRN 90 days Gastrointestinal Is the patient taking opioids for pain control?: No Falls Fall Precaution Measures Taken: Patient in chair Nurse's Note: Patient is here today for a 6 month follow up visit and go over CT scan of the [facility] [place] Medical History Medical History Abnormal breast biopsy BMI 26.0-26.9,adult Breast cancer CAD (coronary artery disease) DDD (degenerative disc disease), lumbar Diabetes DJD (degenerative joint disease) Fall History of cancer History of left breast cancer Hyperlipidemia Hypertension Hypothyroid Impaired mobility and activities of daily living Lump of right breast Lung mass Thyromegaly Type 2 diabetes mellitus with hyperglycemia Vitamin D deficiency Surgical History Surgical History H/O elbow surgery History of ankle surgery History of ankle surgery History of cardiac cath History of left mastectomy History of right hip hemiarthroplasty History of thyroid surgery Hx of breast lump removal Hx of heart artery stent Hx of lumbar discectomy Hx of tonsillectomy Family History Family History Father Diabetes Enlarged heart Mother CAD (coronary artery disease) Sister Lung cancer Brother Legacy FamHx Relation: Brother(s) Cancer Father Heart disease Diabetes Family/Other Family history of other condition Legacy FamHx Problem: both children are adopted:1 sister-HTN, high choleterol, enlarged heart:1 sister spot on lun brother cancer-:1 brother stroke- Mother Heart disease Hypertension Diabetes Social History Social History Smoking status: Never smoker Within the past year, how often did you have a drink containing alcohol: never AUDIT-C Alcohol total score: 0 AUDIT-C Alcohol score interpretation: A score less than 3 is consistent with normal alcohol consumption. In the past 12 months, have you used illegal drugs or prescription drugs for non-medical reasons?: No Review of Systems ROS Details: All systems reviewed & no additional complaints except as documented General: Patient denied fevers, chills, rigors, weight loss or loss of appetite. Head: Patient denied any headaches or vision changes Thoracic: Patient denied any shortness of breath or cough or hemoptysis Cardiovascular patient denies any chest pain or leg edema GI: Patient denies any nausea vomiting rectal bleed diarrhea : Patient denied gross hematuria. Hematology: Patient denied any bleeding from any source. No easy bruising. Lymphatic: No enlarged LAP anywhere. Skin: Normal skin exam no rashes or suspicious lesions. Neurological patient denies any headache or dizziness or focal weakness or sensory changes. Physical Exam EXAM HEENT normocephalic atraumatic pupils are equal and round Neck supple without thyromegaly or any cervical lymphadenopathy. Chest clear to auscultation bilaterally without wheezing crackles or rhonchi Heart regular rate and rhythm S1-S2 without murmurs gallop or rub Abdomen soft nontender not distended without hepatosplenomegaly or masses clinically Extremities no edema of the lower extremities Skin without any suspicious rashes Lymphatic system no lymphadenopathy in the cervical area axillary areas or inguinal areas bilaterally Neurological exam patient is cooperative alert and oriented x3 no focal deficits. Results - [facility] LAB RESULTS No Data to Display Dictated By: Tosha Patel MD DD/ 1050 Signed By: <Electronically signed by Tosha Patel MD> 06/09/24 1119 [facility] Work Phone: Reason for referral (narrative)* Consultation (Routine) - Authorized Specialty Diagnoses / Procedures Referred By Contac t Referred To Contact Cardiology Diagnoses Coronary artery disease involving [place] coronary artery of [place] heart without angina pectoris Procedures Follow Up In Cardiology Yusuf Hayward MD [address] [place] [address] [address], [address] [address] Yusuf Hayward MD [address] [place] [address] [address], [address] [address] Referral ID Status Reason Start Date Expiration Date V isits Requested Visits Authorized [id number] Authorized 01/26/2024 01/25/2025 1 1 T [facility] Work Phone: Summary Purpose Family History No Family History Records FoundUnknown Family Member Name Dates Details Family history of diabetes m ellitus: Mother, Father, Brother(V18.0, Z83.3) Status:Active Family history of malignant neoplasm: Brother(V16.9, Z80.9) Status:Active Family history of malignant neoplasm of breast: Sister(V16.3, Z80.3) Status:Active Heart problem: Mother, Fathe r, Brother Status:Active Unknown Family Member Name Dates Details Family history of diabetes m ellitus: Mother, Father, Brother(V18.0, Z83.3) Status:Active Family history of malignant neoplasm: Brother(V16.9, Z80.9) Status:Active Family history of malignant neoplasm of breast: Sister(V16.3, Z80.3) Status:Active Heart problem: Mother, Fathe r, Brother Status:Active Unknown Family Member Name Dates Details Family history of diabetes m ellitus: Mother, Father, Brother(V18.0, Z83.3) Status:Active Family history of malignant neoplasm: Brother(V16.9, Z80.9) Status:Active Family history of malignant neoplasm of breast: Sister(V16.3, Z80.3) Status:Active Heart problem: Mother, Fathe r, Brother Status:Active Relationship Condition Age at Onset Recorded Date/T michelle father Diabetes mellitus Unknown Cardiomegaly Unknown Not Specified Coronary artery disease Unknown sister Malignant neoplasm of lung Unknown Unknown Family Member Name Dates Details Family history of diabetes m ellitus: Mother, Father, Brother(V18.0, Z83.3) Status:Active Family history of malignant neoplasm: Brother(V16.9, Z80.9) Status:Active Family history of malignant neoplasm of breast: Sister(V16.3, Z80.3) Status:Active Heart problem: Mother, Fathe r, Brother Status:Active Relationship Condition Age at Onset Recorded Date/T michelle father Diabetes mellitus Unknown Cardiomegaly Unknown Not Specified Coronary artery disease Unknown sister Malignant neoplasm of lung Unknown brother Unknown father Heart disease Unknown Unknown Diabetes mellitus Unknown family member Family history of other condition Unknow n Not Specified Unknown Heart disease Unknown Hypertension Unknown Relationship Condition Age at Onset Recorded Date/T michelle father Diabetes mellitus Unknown Cardiomegaly Unknown Not Specified Coronary artery disease Unknown sister Malignant neoplasm of lung Unknown brother Unknown Malignant neoplasm Unknown father Heart disease Unknown Unknown Diabetes mellitus Unknown family member Family history of other condition Unknow n Not Specified Unknown Heart disease Unknown Hypertension Unknown Relationship Condition Age at Onset Recorded Date/T michelle father Diabetes mellitus Unknown Cardiomegaly Unknown mother Coronary artery disease Unknown sister Malignant neoplasm of lung Unknown brother Unknown Malignant neoplasm Unknown father Heart disease Unknown Unknown Diabetes mellitus Unknown family member Family history of other condition Unknow n mother Unknown Heart disease Unknown Hypertension Unknown Advance Directives No Advanced Directives Records Found Advance Directive Response Recorded Date/ Time Advance Directives No February 28 10:14am Advance Directive Response Recorded Date/ Time Advance Directives No February 28 11:14am Hospital Course Note MR#: [id number] I [facility] Pt. Name: Heidi Palmer Admitted: 12/13/2018 Discharged: 12/16/2018 Date of : 1940 Physician: Kurtis Stacy M.D. DISCHARGE SUMMARY DISCHARGE PHYSICIAN: Kurtis Stacy M.D. SERVICE: Med-B. PRIMARY DIAGNOSES: 1. Sepsis, secondary to urinary tract infection, resolved. 2. Metabolic encephalopathy, resolved. 3. Sciatica pain. 4. Coronary artery disease, status post stent 5 years ago. 5. Hypertension. 6. Bxw-epwjbts-lwceqrzvj diabetes. 7. Hypothyroidism. CONSULTS: None. PROCEDURES: None. SUMMARY OF HOSPITAL COURSE: The patient is a 78-year-old female patient with a past medical history of hypertension, zzf-nyflzoe-etvbfrjvp diabetes, hypothyroidism, coronary artery diease status post stents 5 years ago and sciatica pain, who presented from [facility] due to concern of stroke. Her son mentioned that she was confused and disoriented and that she was saying words inappropriately in the morning of admission. He also mentioned (more content not included)... Chief Complaint HEIDI PALMER is being seen for a 9 month follow-up of.HEIDI PALMER is being seen for a 9 month follow-up of.HEIDI PALMER is being seen for an annual follow-up of.HEIDI PALMER is being seen for an annual follow-up of. Chief Complaint and Reason for Visit Chief Complaint S62.607A S52.135A Chief Complaint r30.0 DM Hip pain Reason for Visit CAD (coronary artery disease) Closed subcapital fracture of neck of right femur Diabetes Fall Hyperlipidemia Hypothyroid Chief Complaint r30.0 DM Hip pain Reason for Visit CAD (coronary artery disease) Closed subcapital fracture of neck of right femur Diabetes Fall History of left breast cancer Hyperlipidemia Hypothyroid Impaired mobility and activities of daily living Lung mass Postoperative pain Chief Complaint r30.0 DM Hip pain right femoral neck fx s/p giana-arthroplasty Reason for Visit CAD (coronary artery disease) Closed subcapital fracture of neck of right femur Diabetes Hyperlipidemia Hypothyroid Lung mass Postoperative pain CAD (coronary artery disease) Closed subcapital fracture of neck of right femur COVID-19 Diabetes Hyperlipidemia Hypothyroid Lung mass Postoperative pain Yeast UTI Chief Complaint Lung Mass DM Amb Documentation Z96.641 - Presence of right artificial hip joint 8 WK RECHECK rocio on phone medication check Reason for Visit History of left patricia st cancer History of thyroid surgery Mass of right lung History of left breast cancer History of thyroid surgery Mass of right lung [id number] History of right hip hemiarthroplasty BMI 26.0-26.9,adult Dietary counseling and surveillance Hyperlipidemia Hypertension Type 2 diabetes mellitus with hyperglycemia Chief Complaint Lung Mass DM Amb Documentation Z96.641 - Presence of right artificial hip joint 8 WK RECHECK rocio on phone medication check DMN f/u-ON PHONE Reason for Visit History of left patricia st cancer History of thyroid surgery Mass of right lung History of left breast cancer History of thyroid surgery Mass of right lung [id number] History of right hip hemiarthroplasty BMI 26.0-26.9,adult Dietary counseling and surveillance Hyperlipidemia Hypertension Type 2 diabetes mellitus with hyperglycemia CAD (coronary artery disease) History of right hip hemiarthroplasty Insomnia Type 2 diabetes mellitus with hyperglycemia Chief Complaint rocio on phone medication check DMN f/u-ON PHONE Amb Documentation Z96.641 - Presence of right artificial hip joint Reason for Visit BMI 26.0-26.9,adult Dietary counseling and surveillance Hyperlipidemia Hypertension Type 2 diabetes mellitus with hyperglycemia CAD (coronary artery disease) History of right hip hemiarthroplasty Insomnia Type 2 diabetes mellitus with hyperglycemia BMI 26.0-26.9,adult Dietary counseling and surveillance Hyperlipidemia Hypertension Type 2 diabetes mellitus with hyperglycemia Chief Complaint medication check DMN f/u-ON PHONE Amb Documentation DL per DS 6 week Reason for Visit CAD (coronary artery disease) History of right hip hemiarthroplasty Insomnia Type 2 diabetes mellitus with hyperglycemia BMI 26.0-26.9,adult Dietary counseling and surveillance Hyperlipidemia Hypertension Type 2 diabetes mellitus with hyperglycemia Type 2 diabetes mellitus with hyperglycemia Chief Complaint Amb Documentation DL per DS 6 week DMN f/u Reason for Visit Type 2 diabetes scott itus with hyperglycemia BMI 26.0-26.9,adult Dietary counseling and surveillance Hyperlipidemia Hypertension Type 2 diabetes mellitus with hyperglycemia Chief Complaint Amb Documentation DL per DS 6 week DMN f/u Lung Mass Reason for Visit Type 2 diabetes scott itus with hyperglycemia BMI 26.0-26.9,adult Dietary counseling and surveillance Hyperlipidemia Hypertension Type 2 diabetes mellitus with hyperglycemia History of left breast cancer History of thyroid surgery Mass of right lung History of left breast cancer History of thyroid surgery Mass of right lung Additional Source Comments INFORMATION SOURCE (unrecogn ized section and content) DATE CREATED AUTHOR 12/27/2018 [facility] DATE CREATED AUTHOR AUTHOR'S ORGANIZ ATION 12/22/2022 [facility] DATE CREATED AUTHOR AUTHOR'S ORGANIZ ATION 01/16/2023 [facility] DATE CREATED AUTHOR AUTHOR'S ORGANIZ ATION 01/16/2023 [employer] DATE CREATED AUTHOR AUTHOR'S ORGANIZ ATION 01/27/2024 [facility] DATE CREATED AUTHOR AUTHOR'S ORGANIZ ATION 06/13/2024 [facility] DATE CREATED AUTHOR AUTHOR'S ORGANIZ ATION 06/18/2024 [facility] EPIC REASON FOR VISIT (unrecogniz ed section and content) Reason Comments Annual Exam 1year Care Teams (unrecognized sec tion and content) Team Status: Active Member Role Status Dates Mica Hook MD Primary Care Provider Active Team Status: Active Member Role Status Dates Mica Hook MD Primary Care Provider Active Start: March 23, 2024 NUBIA Espinoza Attending Provider Active Start : March 23, 2024 Team Status: Inactive Member Role Status Dates Mica Hook MD Primary Care Provider Active Start: April 19, 2024 End: April 19, 2024 Olvin Rose RN Attending Provider Active St art: April 19, 2024 End: April 19, 2024 Norma Diaz APRN Active Star t: April 19, 2024 End: April 19, 2024 Team Status: Inactive Member Role Status Dates Mica Hook MD Primary Care Provider Active Start: June 07, 2024 End: June 07, 2024 Norma Diaz APRN Attending Provider Active Start: June 07, 2024 End: June 07, 2024 Team Status: Inactive Member Role Status Dates Mica Hook MD Primary Care Provider Active Start: January 17, 2024 End: January 17, 2024 Norma Diaz APRN Attending Provider Active Start: January 17, 2024 End: January 17, 2024 Team Status: Inactive Member Role Status Dates Mica Hook MD Primary Care Provide r, Attending Provider Active Start: February 18, 2024 End: February 18, 2024 Team Status: Inactive Member Role Status Dates Mica Hook MD Primary Care Provider Active Start: March 07, 2024 End: March 07, 2024 Norma Diaz APRN Attending Provider Active Start: March 07, 2024 End: March 07, 2024 Team Status: Inactive Member Role Status Dates Ismael Booth MD Attending Provider Active Star t: April 10, 2024 End: April 10, 2024 Mica Hook MD Primary Care Provider Active Start: April 10, 2024 End: April 10, 2024 Team Status: Active Member Role Status Dates Mica Hook MD Primary Care Provider Active Start: December 08, 2023 Tosha Patel MD Attending Provider Active Start: December 08, 2023 Team Status: Inactive Member Role Status Dates Mica Hook MD Primary Care Provider Active Start: December 08, 2023 End: December 08, 2023 Tosha Patel MD Attending Provider Active Start: December 08, 2023 End: December 08, 2023 Team Status: Inactive Member Role Status Dates Mica Hook MD Primary Care Provide r, Attending Provider Active Start: December 15, 2023 End: December 15, 2023 Team Status: Active Member Role Status Dates Mica Hook MD Primary Care Provider Active Start: December 24, 2023 NUBIA Espinoza Attending Provider Active Start : December 24, 2023 Team Status: Inactive Member Role Status Dates Ismael Booth MD Attending Provider Active Star t: January 10, 2024 End: January 10, 2024 Mica Hook MD Primary Care Provider Active Start: January 10, 2024 End: January 10, 2024 Team Status: Inactive Member Role Status Dates Mica Hook MD Primary Care Provider Active Start: January 10, 2024 End: January 10, 2024 Ismael Booth MD Attending Provider Active Star t: January 10, 2024 End: January 10, 2024 Team Status: Inactive Member Role Status Dates Mica Hook MD Primary Care Provider Active Uma Mccauley MD Attending Provider Active Team Status: Inactive Member Role Status Dates Mica Hook MD Primary Care Provider, Attending Ghislaine colmenares Active Team Status: Active Member Role Status Dates Mica Hook MD Primary Care Provider, Attending Ghislaine colmenares Active Team Status: Active Member Role Status Dates Mica Hook MD Primary Care Provider Active Nola Cooper , DO Emergency Provider Active Charles Salinas , DO Other Provider Active Uma Mccauley MD Other Provider Active Porfirio Christensen II, MD Other Provider Active Damián Christensen MD Other Provider Active Toni Arthur , DO Other Provider Active Ismael Booth MD Other Provider Active Chin Rodarte MD Admit Provider, Attending Provider A ctive Team Status: Inactive Member Role Status Dates Mica Hook MD Primary Care Provider Active Nola Cooper , DO Emergency Provider Active Ismael Booth MD Other Provider Active Chin Rodarte MD Admit Provider, Attending Provider A ctive Damián Christensen MD Other Provider Active Uma Mccauley MD Other Provider Active Toni Arthur , DO Other Provider Active Porfirio Christensen II, MD Other Provider Active Charles Salinas , DO Other Provider Active Tosha Patel MD Other Provider Active Last Boston MD Other Provider Active Team Status: Inactive Member Role Status Dates Mica Hook MD Primary Care Provider Active Ismael Booth MD Attending Provider Active Team Status: Inactive Member Role Status Dates Mica Hook MD Primary Care Provider Active Anthony Alaniz MD Admit Provider, Attending Provider A ctive Stella Mascorro , JANETH Other Provider Active Jennifer Arrieta , JANETH Other Provider Active Danna Farias , JANETH Other Provider Active Belinda Vo , JANETH Other Provider Active Merissa Reyes , JANETH Other Provider Active Stacey Herzog , JANETH Other Provider Active oGldie Dale MD Other Provider Active Lyudmila Bejarano , GRAIN MERCHANDISING MANAGER Other Provider Active Quin Pittman , DO Other Provider Active Gonzales Bagley MD Other Provider Active Hank Vasquez , DO Other Provider Active Kareem Parker MD Other Provider Active Ailyn Cantu MD Other Provider Active Dary Kline , GRAIN MERCHANDISING MANAGER Other Provider Active Brian Merino MD Other Provider Active Jasiel Bella MD Other Provider Active Jean Monson MD Other Provider Active Marcelo Carlos MD Other Provider Active Damián Boateng , DO Other Provider Active Keyon Cortes MD Other Provider Active Bakari Pettit MD Other Provider Active Annie Perez NP-Dorian Other Provider Active Eliot Gar MD Other Provider Active Rm Wilson MD Other Provider Active Humberto Chamorro MD Other Provider Active Tavo Corbett MD Other Provider Active Isabel Ochoa , DO Other Provider Active Esau Wiley , DO Other Provider Active Yves Rollins , DO Other Provider Active Yelitza Fischer , GRAIN MERCHANDISING MANAGER Other Provider Active Sergo [place] , DO Other Provider Active Luis Moya MD Other Provider Active [place] , GRAIN MERCHANDISING MANAGER Other Provider Active Leia Vega , GRAIN MERCHANDISING MANAGER Other Provider Active Chin Rodarte MD Other Provider Active Nabil Buitrago MD Other Provider Active Emeli Guzman , GRAIN MERCHANDISING MANAGER Other Provider Active Mehnaz Bowden , DO Other Provider Active Syl Hammond RN Other Provider Active Team Status: Inactive Member Role Status Dates Norma Diaz , GRAIN MERCHANDISING MANAGER Attending Provider Active Start: October 11, 2023 End: October 11, 2023 Team Status: Inactive Member Role Status Dates Mica Hook MD Primary Care Provider Active Start: October 11, 2023 End: October 15, 2023 Nola Cooper , Emergency Provider Active Sta rt: October 11, 2023 End: October 15, 2023 Ismael Booth MD Other Provider Active Start: Alpesh 2022 End: October 15, 2023 Chin Rodarte MD Admit Provider, Atte nding Provider Active Start: October 11, 2023 End: October 15, 2023 Damián Christensen MD Other Provider Active Start: October 11, 2023 End: October 15, 2023 Uma Mccauley MD Other Provider Active Star t: October 11, 2023 End: October 15, 2023 Toni Arthur DO Other Provider Active Start : October 11, 2023 End: October 15, 2023 Porfirio Christensen II, MD Other Provider Active S tart: October 11, 2023 End: October 15, 2023 Charles Salinas DO Other Provider Active Start: October 11, 2023 End: October 15, 2023 Tosha Patel MD Other Provider Active Start: October 11, 2023 End: October 15, 2023 Last Boston MD Other Provider Active Start: October 11, 2023 End: October 15, 2023 Team Status: Inactive Member Role Status Dates Mica Hook MD Primary Care Provider Active Start: October 15, 2023 End: November 03, 2023 Anthony Alaniz MD Admit Provider, Atte nding Provider Active Start: October 15, 2023 End: November 03, 2023 Stella Mascorro RN Other Provider Active Star t: October 15, 2023 End: November 03, 2023 Jennifer Arrieta RN Other Provider Active Start : October 15, 2023 End: November 03, 2023 Danna Farias RN Other Provider Active Start: D ec2022 End: November 03, 2023 Belinda Vo RN Other Provider Active Star t: October 15, 2023 End: November 03, 2023 Merissa Reyes RN Other Provider Active Start : October 15, 2023 End: November 03, 2023 Stacey Herzog RN Other Provider Active Start: D ec2022 End: November 03, 2023 Goldie Dale MD Other Provider Active Start: October 15, 2023 End: November 03, 2023 Lyudmila Bejarano APRN Other Provider Active Start: October 15, 2023 End: November 03, 2023 Quin Pittman DO Other Provider Active Start : October 15, 2023 End: November 03, 2023 Gonzales Bagley MD Other Provider Active Start : October 15, 2023 End: November 03, 2023 Hank Vasquez DO Other Provider Active Start: October 15, 2023 End: November 03, 2023 Kareem Parker MD Other Provider Active Start: October 15, 2023 End: November 03, 2023 Ailyn Cantu MD Other Provider Active Start : October 15, 2023 End: November 03, 2023 Dary Kline APRN Other Provider Active Start: October 15, 2023 End: November 03, 2023 Brian Merino MD Other Provider Active Start: October 15, 2023 End: November 03, 2023 Jasiel Bella MD Other Provider Active Start: D ec2022 End: November 03, 2023 Jean Monson MD Other Provider Active Start: October 15, 2023 End: November 03, 2023 Marcelo Carlos MD Other Provider Active Start: October 15, 2023 End: November 03, 2023 Damián Boateng DO Other Provider Active Start: October 15, 2023 End: November 03, 2023 Keyon Cortes MD Other Provider Active Start: 2022 End: November 03, 2023 Bakari Pettit MD Other Provider Active Start: Oct End: November 03, 2023 SRAVANI Vance Other Provider Active St art: October 15, 2023 End: November 03, 2023 Eliot Gar MD Other Provider Active Start: October 15, 2023 End: November 03, 2023 Rm Wilson MD Other Provider Active Start: 2022 End: November 03, 2023 Humberto Chamorro MD Other Provider Active Start: Oct End: November 03, 2023 Tavo Corbett MD Other Provider Active Start: 2022 End: November 03, 2023 Isabel Ochoa DO Other Provider Active Start: 2022 End: November 03, 2023 Esau Wiley DO Other Provider Active Start : October 15, 2023 End: November 03, 2023 Yves Rollins DO Other Provider Active Sta rt: October 15, 2023 End: November 03, 2023 Yelitza Fischer APRN Other Provider Active Start: October 15, 2023 End: November 03, 2023 Sergo Pike DO Other Provider Active Start: October 15, 2023 End: November 03, 2023 Luis Moya MD Other Provider Active Sta rt: October 15, 2023 End: November 03, 2023 [place] APRN Other Provider Active Start : October 15, 2023 End: November 03, 2023 Leia Vega APRN Other Provider Active St art: October 15, 2023 End: November 03, 2023 Chin Rodarte MD Other Provider Active Start: ec2022 End: November 03, 2023 Nabil Buitrago MD Other Provider Active S tart: October 15, 2023 End: November 03, 2023 Emeli Guzman APRN Other Provider Active S tart: October 15, 2023 End: November 03, 2023 Mehnaz Bowden DO Other Provider Active Start: October 15, 2023 End: November 03, 2023 Syl Hammond , RN Other Provider Active Start: D 2022 End: November 03, 2023 Team Status: Inactive Member Role Status Dates Mica Hook MD Attending Provider Active St art: November 09, 2023 End: November 09, 2023 Team Status: Inactive Member Role Status Dates Mica Hook MD Primary Care Provider Active Start: November 16, 2023 End: November 16, 2023 Ismael Booth MD Attending Provider Active Star t: November 16, 2023 End: November 16, 2023 Team Status: Inactive Member Role Status Dates Norma Diaz APRN Attending Provider Active Start: November 18, 2023 End: November 18, 2023 Team Status: Active Member Role Status Dates Mica Hook MD Primary Care Provide r, Attending Provider Active Start: November 18, 2023 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 Start Date End Date Mica Hook MD [address] [place], [place] [id number] PCP - General Family Medicine 01/26/24 Yusuf Hayward MD [facility] 2, [address] [address] Consulting Physician Cardiology 01/26/24 Team Status: Active Member Role Status Dates Mica Hook MD Primary Care Provider Active Start: June 09, 2024 Tosha Patel MD Attending Provider Active Start: June 09, 2024 Team Status: Inactive Member Role Status Dates Mica Hook MD Primary Care Provider Active Start: June 09, 2024 End: June 09, 2024 Tosha Patel MD Attending Provider Active Start: June 09, 2024 End: June 09, 2024 Goals (unrecognized section and content) Goals may be documented in a n alternate section FOR RECORDS PERTAINING TO PATIENTS WHO ARE OR HAVE BEEN ENROLLED IN A CHEMICAL DEPENDENCY/SUBSTANCEABUSE PROGRAM, SOME INFORMATION MAY BE OMITTED. This clinical summary was aggregated from multiple sources. Caution should be exercised in using it in the provision of clinical care. This summary normalizes information from multiple sources, and as a consequence, information in this document may materially change the coding, format and clinical context of patient data. In addition, data may be omitted in some cases. CLINICAL DECISIONS SHOULD BE BASED ON THE PRIMARY CLINICAL RECORDS. [facility]. provides no warranty or guarantee of the accuracy or completeness of information in this document.
[2024-06-29 01:39] VITALS: BP 95/69; PULSE 62; O2SAT 95
--- NOTE | 2024-06-29 02:00 | ECG_ITS ---
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
--- NOTE | 2024-06-29 04:32 | ECG_ITS ---
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
== END 2024-06-29 01:59 | disposition short-term general hospital (02) ==
PROVIDERS: Emergency Provider Internal Medicine; PCP Family Medicine
DX: I21.3 ST elevation (STEMI) myocardial infarction of unspecified site (principal); I25.10 Atherosclerotic heart disease of native coronary artery without angina pectoris; E11.9 Type 2 diabetes mellitus without complications; Z95.5 Presence of coronary angioplasty implant and graft; Z79.84 Long term (current) use of oral hypoglycemic drugs
CPT/HCPCS: 36415; 71045; 80048; 84484; 85025; 93005; 96374; 96375; 99285; J1644; J2270; J2405

== ENCOUNTER 2024-08-10 07:02 | Day surgery (SDC) | payer MEDICARE, SELFPAY ==
--- NOTE | 2024-08-10 | OP_ITS ---
OPERATION DATE: 08/10/2024 SURGEON: Abundio Castillo D.O. PREOPERATIVE DIAGNOSIS: Nuclear sclerotic cataract right eye. POSTOPERATIVE DIAGNOSIS: Nuclear sclerotic cataract right eye. PROCEDURE NAME: Cataract extraction with intraocular lens placement of the right eye. ANESTHESIA: Topical ESTIMATED BLOOD LOSS: Zero. COMPLICATIONS: None. PROCEDURE: The patient was brought to the Operating Room in supine position. After proper identification, the right eye was prepped and draped in a sterile ophthalmic fashion. A paracentesis created at the 11 o'clock position. Approximately 1 cc of unpreserved Xylocaine was injected into the anterior chamber followed by Amvisc Plus. Using a 2.6 mm Keratome blade, a clear corneal incision was created at the 9 o'clock limbus. A cystotome was then used to begin a curvilinear capsulorrhexis that was continued for 360 degrees with the Utrata forceps. BSS on a 26 gauge cannula was injected beneath the anterior capsule to hydrodissect as well as hydrodelineate the lens. After ensuring mobility, phacoemulsification was performed in a dycomuv-idn-lzkzrd-type fashion. After all nuclear material had been removed from the eye, IA was introduced and all residual cortical material was cleaned up. Additional Amvisc Plus was injected into the posterior bag and a lens model MX60, 20.5 diopters was injected and dialed into position. After ensuring centration, IA was reintroduced into the anterior chamber and all residual Amvisc Plus was removed from the eye. BSS on a 30 gauge cannula was injected into the stroma of both the clear corneal incision as well as paracentesis to hydrate the wounds. Additional BSS was injected into the anterior chamber to pressurize the eye at approximately 20 to 22 mmHg by finger tension. 0.1 cc of antibiotic was injected into the anterior chamber and Weck-Joana sponges were used to check the wounds to be watertight. One drop of apraclonidine and one drop of prednisolone acetate placed into the eye and a shield was placed over top. The patient was sent to the postoperative area in satisfactory condition to follow up the following day for postoperative care. JER
--- NOTE | 2024-08-10 | HP_ITS ---
? PREOPERATIVE HISTORY AND PHYSICAL ? Date:? 08/08/2024 ? HISTORY:? The patient is an 84-year-old white female with complaints of declining vision out of her right eye.? The general nature of this has been ongoing for the last 2-3 years, gradually worsening over that time frame.? The TV on the television and scores in the upper left hand corner have become more difficulty to be able to see.? She has also stated having difficulty seeing road signs at a distance.? Night time driving is more difficult due to the headlights creating glare and halos.? ? PAST OCULAR HISTORY:? Denies. ? PAST MEDICAL HISTORY:? Diabetes, hypothyroidism, hypertension, hyperlipidemia, breast cancer, spine surgery, coronary artery disease. ? SOCIAL HISTORY:? Denies tobacco, alcohol or recreational drug abuse. ? SYSTEMIC MEDICATIONS:? Include zolpidem, tramadol, Klor-Con, < > (sounds like ?tiadribazone? but unable to verify), ondansetron, meclizine, lisinopril, levothyroxine, glyburide, gabapentin, 81 mg aspirin, Alprazolam, Lantus, spironolactone, furosemide. ? ALLERGIES TO MEDICATIONS:? Penicillin, Thyrozole, metformin and oxycodone. ? REVIEW OF SYSTEMS:? No pertinent positives. ? PHYSICAL EXAM: ? GENERAL:? In general, she is awake, alert and oriented x3, well developed, well nourished, in no acute distress.? ? HEART:? Regular rate and rhythm. ? LUNGS:? Clear bilaterally. ? ABDOMEN:? Soft, non-tender, non-distended. ? EXTREMITIES:? No pitting edema. ? OPHTHALMIC EXAM:? Revealed a visual acuity of 20/60 in both eyes that glared to 20/200 bilaterally.? Pressures are measured at 16 bilaterally.?? Pupils motility, muscle balance and confrontational visual montoya within normal limits bilaterally.? Lens status demonstrated 2+ nuclear sclerosis, 1+ cortical changes, 1+ PSC and vacuoles bilaterally.? ? FUNDUS EXAM:? Revealed good view with good dilation bilaterally.? Optic discs, macula, vessels, periphery and vitreous were within normal limits bilaterally.? ? ASSESSMENT AND PLAN:? Visually significant cataract, right eye.? After the risks, benefits, and alternatives as well as expectations were delivered to the patient, she elected to go forward with cataract removal.? She understands those risks to include but not limited to infection, bleeding, loss of vision or loss of the eye itself.? Secondly, she understands that postoperatively she is likely to require spectacle correction for her best visual acuity.? Finally, a complete ophthalmic exam was performed and there was not determined to be any other source of vision decline other than that of cataract.? After understanding all risks as well as expectations, she elected to go forward with the procedure as listed above and will be doing so in the near future. JER
--- OUTSIDE RECORDS SUMMARY | 2024-08-10 07:08 | XMS_ITS | CCD ---
Author Organization [facility] Care Team Providers Care Supervisor Paste Mixing Name Role Phone MICA HOOK Primary Care Unavailable KIMBERLY RECIO Referring Unavailable PRIYA BAGLEY Admitting Unavailable [place] Procedure Practitioner Unavailab ANITA Coon Surgeon Unavailable KURTIS STACY Attending Unavailable Unavailable Unavailable Mica Hook Unavailable MONSTER, DR MICA Klein Admitting Unavailable HOOK, DR MICA Klein Attending Unavailable MONSTER, DR MICA Klein Primary Care Unavailable HOOK, DR MICA Klein Consulting Unavailable HOOK, DR MICA Klein Primary Care Unavailable DIAB, ADAN Admitting Unavailable DIAB, ADAN Attending Unavailable ZIEBSTEVIE, DR GRADY Barrett Consulting Unavailable ARRONCHTRACI, ROBBIN MORGAN Consulting Unavailable DIAB, ADAN Consulting Unavailable HOOK, DR MICA Klein Admitting Unavailable HOOK, DR MICA Klein Attending Unavailable HOOK, DR MICA Klein Primary Care Unavailable HOOK, DR MICA Klein Admitting Unavailable [...] Care Provider MD Uma Mccauley Attending Provider Yesy BRADSHAW, Dr. Yusuf Lebron Referring Unavailable Monster, Dr. Mica Palacios Primary Care Unav ailable Yesy BRADSHAW, Dr. Yusuf Lebron Attending Unavailable Yesy BRADSHAW, Dr. Yusuf Lebron Referring Unavailable Monster, Dr. Mica Palacios Primary Care Unav ailable Yesy BRADSHAW, Dr. Yusuf Lebron Attending Unavailable Uma Mccauley Unavailable MD Mica Hook Primary Care Provider MD Uma Mccauley Attending Provider [phone] MD Mica Hook Primary Care Provider MD Mica Hook Attending Provider MD Mica Hook Primary Care Provider MD Mica Hook Attending Provider DO Nii Cooper Emergency Provider DO Charles Salinas A Other Provider MD Uma Mccauley Other Provider MD Porfirio Christensen II Other Provider MD Damián Christensen Other Provider DO Toni Arthur A Other Provider MD Epi Booth Other Provider MD Chin Rodarte Admit Provider MD Chin Rodarte Attending Provider MD Amanda sakshi Yadenise Other Provider MD Last [place] Other Provider Norma Diaz Unavailable Epi Booth Unavailable MD Anthony Alaniz Admit Provider MD Anthony Alaniz Attending Provider JANETH Mascorro Other Provider Unavailable JANETH Arrieta Other Provider Unavailable JANETH Farias Other Provider Unavailable JANETH Vo Other Provider Unavailable JANETH Reyes Other Provider Unavailable JANETH Herzog Other Provider Unavailable MD Goldie Dale Other Provider FRANK Bejarano Other Provider DO Quin Pittman Other Provider [phone] MD Gonzales Bagley Other Provider [phone] DO Hank Vasquez Other Provider MD Kareem Parker Other Provider MD Ailyn Cantu Other Provider FRANK Kline Other Provider MD Brian Merino Other Provider MD Jasiel Bella Other Provider MD Jean Monson Other Provider MD Marcelo Carlos Other Provider DO Damián Boateng Other Provider MD Keyon Cortes Other Provider MD Bakari Pettit Other Provider NICK Perez-C Annie Perales Other Provider [phone] MD Eliot Gar Other Provider MD Rm Wilson Other Provider MD Humberto Chamorro Other Provider MD Tavo Corbett Other Provider DO Isabel Ochoa Other Provider DO Esau Wiley Other Provider DO Yves Rollins Other Provider [phone] FRANK Fischer Other Provider DO Sergo Pike Other Provider [phone] MD Luis Moya Other Provider FRANK Hills Other Provider FRANK Vega Other Provider [phone] MD Chin Rodarte Other Provider MD Nabil Buitrago Other Provider FRANK Guzman Other Provider Kal, DO Yazid Other Provider JANETH Hammond Other Provider Unavailable MD Epi Booth Attending Provider MD Mica Hook Primary Care Provider MD Mica Hook Attending Provider MD Tosha Patel Attending Provider FRANK Guzman Other Provider Unavaila ble MD Mica Hook Attending Provider Mica Hook MD Primary Care Provider Yesy GONSALVES, Yusuf Scanlon Unavailable MD Mica Hook Primary Care Provider MD Tosha Patel Attending Provider [phone] MD Mica Hook Attending Provider [phone] MD Epi Booth Attending Provider MD Epi Booth Attending Provider [phone] MD Mica Hook Primary Care Provider MD Mica Hook Primary Care Provider MD Tosha Patel Attending Provider JAS STUART Attending Unavailable TOMASZ RON Referring Unavailable DO Roberto Carlos Mcdermott Admit Provider [phone] DO Roberto Carlos Mcdermott Attending Provider [phone] MD Tl Wild Other Provider PROVIDER, UNKNOWN Attending Unavailable PROVIDER, UNKNOWN Admitting Unavailable Leobardo, Epi Attending Unavailable Monster, Mica E Primary Care Unavailable Olexa, Epi Admitting Unavailable Hook, Mica E Primary Care Unavailable Hook Mica E Attending Unavailable Hook, Mica E Admitting Unavailable Olexa, Epi Attending Unavailable Hook, Mica E Primary Care Unavailable Olexa, Epi Admitting Unavailable Hook, Mica E Admitting Unavailable Hook, Mica E Primary Care Unavailable Hook, Mica E Attending Unavailable Hook, Mica E Primary Care Unavailable Tosha Patel Attending Unavailbrea e Tosha Patel Admitting Unavailabl e Hook, Mica E Primary Care Unavailable Roberto Carlos Mcdermott Attending Unavailable Roberto Carlos Mcdermott Admitting Unavailable Tl Wild Consulting Unavaila Epi Callejas Consulting Unavailable Hook, Mica E Primary Care Unavailable Brittany Rodartea Attending Unavailable Alajim, Alaa Admitting Unavailable Damián Christensen Consulting Unavailable Uma Mccauley Consulting Unavailable Toni Arthur Consulting Unavailable Porfirio Christensen II Consulting UnavailCharles Donato Consulting Unavailable Tosha Patel Consulting UnavailLast Horta Consulting Unavaila Anthony Toure Attending Unavailable Mica Hook E Primary Care Unavailable Anthony Alaniz Admitting Unavailable Stella Mascorro Consulting Unavailable Jennifer Arrieta Consulting Unavailable Danna Farias Consulting Unavailable Belinda Vo Consulting Unavailable Merissa Reyes Consulting Unavailable Stacey Herzog Consulting Unavailable Goldie Dale Consulting Unavailable Lyudmila Bejarano Consulting Unavailable Quin Pittman Consulting Unavailable Gonzales Bagley Consulting Unavailable Hank Vasquez Consulting UnavailKareem Martinez Consulting Unavailable Ailyn Cantu Consulting Unavailable Dary Kline Consulting UnavailBrian Wild Consulting Unavailable Jasiel Bella Consulting Unavailable Jean Monson Consulting Unavailable Marcelo Carlos Consulting Unavailable Damián Boateng Consulting Unavailable Keyon Cortes Consulting Unavailable Bakari Pettit Consulting Unavailable Annie Perez Consulting Unavailable Eliot Gar Consulting Unavailab Rm Pathak Consulting Unavailable Humberto Chamorro Consulting Unavailable Tavo Corbett Consulting Unavailable Isabel Ochoa Consulting Unavailable Esau Wiley Consulting Unavailable Yves Rollins Consulting Unavailable Yelitza Fischer Consulting Unavailable Sergo Pike Consulting Unavailable Luis Moya Consulting Unavailable Ysabel Hills Consulting Unavailable Leia Vega Consulting Unavailable Chin Rodarte Consulting Unavailable Nabil Buitrago Consulting Unavailable Emeli Guzman Consulting Unavailable Mehnaz Bowden Consulting Unavailable Syl Hammond Consulting Unavailable YUSUF HAYWARD Attending Unavailable MONSTER MICA E Primary Care Unavailable YUSUF MCDERMOTT Attending Unavailable MICA HOOK Primary Care Unavailable Allergies Allergy Classification Reported Allergen(s) Allergy Type Date of Onset Reaction(s) Facility (17 sources) cilostazol Drug Allergy unknown [facility] Repository (18 sources) metFORMIN; Translations: [METFORMIN] Drug Allergy 012 Vomiting [facility] Repository (19 sources) Penicillins; Translations: [PENICILLINS] Drug allergy (disorder) Anaphylaxis [facility] Repository (20 sources) metFORMIN; Translations: [metformin] Drug Allergy Other [facility] (20 sources) oxyCODONE; Translations: [oxycodone] Drug Allergy [facility] (6 sources) Penicillins; Translations: [Penicillins] Allergy to drug (finding) [place] [id number] DO Work Phone: (1 source) metFORMIN Drug Allergy [facility] Repository (1 source) oxyCODONE Drug Allergy [facility] Repository (16 sources) Penicillin Drug Allergy anaphylaxis [facility] Other (8 sources) Aspirin Drug Allergy Unknown [facility] Other (18 sources) aspirin contraindicated Propensity to adverse reactions Comment:adverse rxn/side effects [facility] Other (2 sources) patient allergy list reviewed by nurse or physicia Propensity to adverse reactions 014 Comment:Done [facility] Other (18 sources) Ambien CR *HYPNOTICS/SEDATIV ES/SLEEP DISORDER AGEN Propensity to adverse reactions Unknown [facility] Other (6 sources) Allergies Reconciled Propensity to adverse reactions Unknown [facility] Other (18 sources) Substance with penicillin structure and antibacterial mechanism of action (substance) Drug allergy anaphylaxis [facility] Other (4 sources) zolpidem; Translations: [zolpidem] Drug Allergy [facility] (1 source) Penicillins Drug Allergy Nausea/vomiting [facility] Work Phone: (1 source) cilostazol Drug Allergy [facility] Repository (1 source) metFORMIN Drug Allergy [facility] Repository (1 source) oxyCODONE Drug Allergy [facility] Repository (1 source) Penicillins Drug allergy (disorder) [facility] Repository Medications Current Medications Medication Drug Class(es) Dates Sig (Normalized) Sig (Original) acetaminophen 325 mg oral tablet (20 sources) Start: 01-17-2024 take 1 tablet by mouth three times daily Acetaminophen (Tylenol) 325 mg tablet Active 325 MG PO Three times daily January 17, 2024 11:34am Start: 10-26-2023 End: 01-17-2024 take 2 tablets by mouth three times daily Acetaminophen (Tylenol) 325 mg Tablet Discontinued 650 MG PO Three times daily October 26, 2023 1:00am January 17, 2024 11:36am take 1 tablet by alex th three [...] every six hours as needed for pain Jber 5-325 MG 1-2 tablets as needed for pain Orally every 6 hrs for 7 days Dec, Active Start: 12-23-2022 take 1-2 tablets by mouth every six hours as needed Jber 5-325 MG 1-2 tablets as needed Orally every 6 hrs for 7 days Dec, Active ascorbic acid 500 mg oral tablet (18 sources) Vitamin C Start: 11-03-2023 take 1 tablet by mouth once daily Ascorbic Acid (Vitamin C) (Vitamin C) 500 mg Tablet Active 500 MG PO Daily 30 November 03, 2023 1:00am Vitamin C Active Blood-Glucose Meter (Onetouc h Ultra2 Meter) mis (8 sources) Start: 01-04-2024 Blood-Glucose Meter (Onetouch Ultra2 [...] 3 Sensor) device Discontinued 0 MISCELLANE .MEDSUPPLY February 24, 2024 12:00am February 24, 2024 8:38am As directed Start: 01-04-2024 End: 01-04-2024 Blood-Glucose Sensor (Freest yle Rocio 3 Sensor) device Discontinued 0 .Route January 04, 2024 1:00am January 04, 2024 11:50am As directed Start: 01-04-2024 End: 01-04-2024 Blood-Glucose Sensor (Freest yle Rocio 3 Sensor) device Discontinued EACH .ROUTE .MEDSUPPLY January 04, 2024 1:00am January 04, 2024 11:50am As directed Calcium Carbonate+Vitamin D (7 sources) Calcium Carbonat e+Vitamin D Active Calcium Carbonate-Vitamin D3 (Oyster Shell Calcium-Vit D3) 500 mg-5 mcg (200 unit) Tablet (11 sources) Start: 10-26-2023 take 1 tablet by [...] Active diphenhydrAMINE hydrochloride 25 mg oral capsule (18 sources) Histamine-1 Receptor Antagonist Start: 01-14-2024 take 1 capsule by mouth at bedtime Diphenhydramine Hcl (Benadryl) 25 mg capsule Active 25 MG PO Bedtime January 14, 2024 1:00am Benadryl Active docusate sodium 50 mg / sennosides, penitentiary 8.6 mg oral tablet (3 sources) Start: 06-29-2024 take 1 tablet by mouth twice daily Sennosides-Docusate Sodium Active 1 TAB-CAP PO Twice daily June 29, 2024 12:00am take 2 tablets by mouth once dinorah ly sennosides-docusate sodium (Juliana-Colace) 8.6-50 mg tablet Take 2 tablets by mouth once daily. 0 Active FreeStyle Rocio 3 Sensor - (7 sources) FreeStyle Rocio 3 Sensor - as directed q 14 days Active FreeStyle Rocio 3 Sensor - as directed q 14 days for 30 days Active furosemide 40 mg oral tablet (20 sources) Loop Diuretic Start: 06-30-2024 take 40 mg by mouth two times weekly Furosemide Active 40 MG PO Twice a Week 08 07June 30, 2024 10:51am Start: 12-13-2023 End: 12-15-2024 take 40 mg [...] 2023 5:25pm take 1 tablet by alex every twenty-four hours Furosemide 20 MG 1 tablet Orally Once a day for 30 day(s) Not-Taking guaiFENesin (7 sources) Mucinex Active 3 ml [...] pen injector (20 sources) Insulin Analog Start: 06-29-2024 Insulin Glargi ne-Lixisenatide (Soliqua 100/33) 100 unit-33 mcg/mL insulin pen Active 17 UNIT SUBCUT Daily June 29, 2024 12:00am Titrate to 30 u glargine once daily, has written instructions Start: 06-07-2024 End: 06-29-2024 Insulin Glargine-Lixisenatid e (Soliqua 100/33) 100 unit-33 mcg/mL insulin pen Discontinued 23 UNIT SUBCUT Daily June 07, 2024 12:09pm June 29, 2024 5:14am Titrate to 30 u glargine once daily, [...] 26, 2023 1:00am February 18, 2024 2:05pm 24 hr metoprolol succinate 50 mg extended release oral tablet (2 sources) beta-Adrenergic Ramos Start: 06-30-2024 take 50 mg by mouth once daily Metoprolol Succinate Active 50 MG PO Daily June 30, 2024 12:00am nitroglycerin 0.4 mg sublingual tablet (2 sources) Nitrate Vasodilator Start: 06-30-2024 Nitroglycerin Active 0.4 MG SUBLINGUAL Q5M June 30, 2024 12:00am One Touch Glucometer (5 sources) Start: 11-18-2023 One Touch Glucometer as directed sq 4 times daily for 365 days Dx E11.65 or insurance preferred Nov, Active Senna Leaves (5 sources) Start: 03-07-2024 [...] 17, 2024 12:00am February 18, 2024 2:05pm ticagrelor 90 mg oral tablet (2 sources) Start: 06-30-2024 take 1 tablet by mouth twice daily Ticagrelor (Brilinta) 90 mg Tablet Active 90 MG PO Twice daily June 30 2024 12:00am valsartan 40 mg oral tablet (2 sources) Angiotensin 2 Receptor Ramos Start: 06-30-2024 take 40 mg by mouth twice daily Valsartan Active 40 MG PO Twice daily 60 30 June 30, 2024 12:00am Zinc Gluconate-Vitamin C (2 sources) Start: 06-29-2024 take 1 tablet by mouth once daily Zinc Gluconate-Vitamin C Active 1 TAB PO Daily June 29, 2024 12:00am Takes 50 mg of Zinc Gluconate and no more than 500 mg of Vitamin C. zolpidem tartrate 5 mg oral tablet (20 sources) gamma-Aminobutyric Acid-ergic Agonist Start: 06-29-2024 take 10 mg by mouth once daily at bedtime Zolpidem Active 10 MG PO Daily at bedtime June 29, 2024 12:00am Start: 03-13-2024 End: 06-29-2024 take 5 mg by mouth once daily at bedtime Zolpidem Discontinued 5 MG PO Daily at bedtime 90 90 March 13, 2024 12:00am June 29, 2024 5:14am Start: 10-26-2023 End: 03-13-2024 take 10 mg [...] Oxycodone-Acetamino phen Discontinued 1 TAB PO Q4H 20 October 26, 2023 January 17, 2024 11:45am Start: [...] 9:45am blood-glucose sensor (FreeStyle Rocio 3 Sensor) (8 sources) Start: 01-14-2024 End: 02-24-2024 blood-glucose sensor [...] Start: 10-07-2023 take 1 tablet by alex th every twelve hours Ciprofloxacin HCl 500 MG 1 tablet Orally every 12 hrs for 7 days Sep, Active Start: 07-19-2023 take 1 tablet by alex th every twelve hours Ciprofloxacin HCl 250 MG 1 tablet Orally every 12 hrs for 5 day(s) Jul, Active Start: 11-23-2022 take 1 tablet by alex th every twelve hours Cipro 250 MG 1 [...] 15-Sep-2021 Active take 1 capsule by mo uth three times daily clindamycin (Cleocin) 150 mg capsule Layo e 1 capsule (150 mg) by mouth 3 times a day. 0 Active cyclobenzaprine hydrochloride 10 mg oral tablet (16 sources) Muscle Relaxant Start: 05-16-2019 End: 10-11-2023 take 10 mg by mouth three times daily Cyclobenzaprine Discontinued 10 MG PO Three times daily May 16, 2019 12:00am October 11, 2023 [...] 0.05 % Dropperette Discontinued 1 DROPS EYE-BOTH Q12H October 11, 2023 12:00am October 26, 2023 2:57pm Start: 10-11-2023 take 1 drop(s) into the eye(s) every twelve hours Cyclosporine (Restasis) 0.05 % Dropperette Active 1 DROPS EYE-BOTH Q12H October 11, 2023 12:00am D-Mannose (8 sources) Start: 01-14-2024 End: 01-17-2024 take 1 mg by mouth once daily D-Mannose (Azo D-Mannose) 500 mg capsule Discontinued MG PO Daily January 14, 2024 1:00am January 17, 2024 11:36am 12 hr dextromethorphan hydrobromide 30 mg / guaiFENesin 600 mg extended release oral tablet (19 sources) Uncompetitive V-zmqrmn-H-aspartat e Receptor Antagonist, Sigma-1 Agonist Start: 11-03-2023 [...] ml enoxaparin sodium 100 mg/ml prefilled syringe (12 sources) Low Molecular Weight Heparin Start: 10-15-2023 End: 10-26-2023 Enoxaparin (Lovenox) 40 mg/0.4 mL Syringe Discontinued 40 MG SUBCUT DAILY@10 4 October 15, 2023 1:00am October 26, 2023 3:57pm fluticasone propionate 0.05 mg/actuat metered dose nasal spray (16 sources) Corticosteroid Start: 05-05-2019 End: 10-11-2023 Fluticasone Propionate Discontinued 1 SPRAY INTRANASAL Daily May 05, 2019 12:00am October 11, 2023 5:25pm gabapentin 300 mg oral capsule (16 sources) Anti-epileptic Agent Start: 05-05-2019 End: 10-11-2023 take 300 mg by mouth three times daily Gabapentin Discontinued 300 MG PO Three times daily May 05, 2019 12:00am October 11, 2023 5:25pm hyaluronate (20 sources) Start: 09-02-2020 Gel-One Aug, 3 mL Insulin Aspart U-100 (Novolog Flexpen U-100 Insulin) 100 unit/mL (3 mL) Insulin Pen (11 sources) Start: 10-26-2023 End: 01-17-2024 inject 1 [...] U-100) 100 unit/mL (3 mL) Insulin Pen (12 sources) Start: 10-11-2023 End: 10-26-2023 inject 10 [...] ml insulin lispro 100 unt/ml pen injector (9 sources) Insulin Analog Start: 01-17-2024 End: 02-18-2024 [...] another clinician) levoFLOXacin 500 mg oral tablet (12 sources) Quinolone Antimicrobial Start: 10-15-2023 End: 10-26-2023 [...] 3 ml liraglutide 6 mg/ml pen injector (13 sources) GLP-1 Receptor Agonist Start: 10-11-2023 End: [...] 11, 2023 1:00am October 12, 2023 5:27pm [place] 3 1000 MG (20 sources) take 1 capsule by mouth once daily as needed [place] 3 1000 MG 1 capsule Orally Once a day Not-Taking/PRN take 1 capsule by mouth once dinorah ly [place] 3 1000 MG 1 capsule Orally Once a day Active omeprazole 20 mg delayed release oral capsule (13 sources) Proton Pump Inhibitor Start: 10-11-2023 End: 10-26-2023 take 20 mg by mouth once daily Omeprazole Discontinued 20 MG PO Daily October 11, 2023 1:00am October 26, 2023 3:57pm oxyCODONE hydrochloride 5 mg oral capsule (16 sources) Opioid Agonist Start: 05-16-2019 End: 10-11-2023 take 5-10 mg by mouth every six hours Oxycodone Discontinued 5 - 10 MG PO Q6H 60 8 May 16, 2019 October 11, 2023 5:25pm pantoprazole 40 mg delayed release oral tablet (18 sources) Proton Pump Inhibitor Start: 10-26-2023 End: [...] day Active take 1 tablet by alex every twenty-four hours Pioglitazone HCl 45 MG 1 tablet Orally Once a day for 90 days Active potassium chloride 10 meq extended release oral tablet (20 sources) Start: 10-26-2023 End: 06-30-2024 Potassium Chloride (Klor-Con 10) 10 mEq tablet extended release Discontinued 10 MEQ PO Daily 90 90 June 05, 2024 2:19pm June 30, 2024 11:13am Start: 11-10-2021 End: 10-26-2023 Potassium Chloride (Klor-Con M10) 10 mEq tablet,ER particles/crystals Discontinued 10 MEQ PO Daily October 11, 2023 1:00am October 26, 2023 3:57pm Start: 05-05-2019 End: 10-11-2023 take 10 mEq by mouth once daily Potassium Chloride Discontinued 10 MEQ PO Daily May 05, 2019 12:00am October 11, 2023 5:25pm take 1 tablet by [facility] every twelve hours Potassium Chloride Snow ER 10 MEQ 1 tablet with food Orally Twice a day Active Prednisone (16 sources) Start: 05-16-2019 End: 10-11-2023 Prednisone Discontinued [...] then take 1 tab for 3 days 24 hr propranolol hydrochloride 160 mg extended release oral capsule (20 sources) beta-Adrenergic Ramos Start: 03-23-2024 End: 06-30-2024 take 1 capsule by mouth once daily Propranolol Discontinued 0 .ROUTE .COMPLEX 90 March 23, 2024 9:51am June 30, 2024 11:13am TAKE 1 CAPSULE BY MOUTH EVERY DAY [...] Propranolol Discontinu ed 160 MG PO Daily 60 30 October 26, 2023 1:00am January 17, 2024 11:47am Start: 05-05-2019 End: 01-26-2024 take 160 mg by mouth once daily Propranolol Discontinu ed 160 MG PO Daily October 11, 2023 1:00am October 26, 2023 3:57pm take 1 capsule by mo [facility] every twenty-four hours Propranolol HCl ER 80 MG 1 capsule Orally Once a day for 90 days Active Propranolol HCl Active rosuvastatin calcium 20 mg oral tablet (13 sources) HMG-CoA Reductase Inhibitor Start: 07-11-2023 End: 01-26-2024 take 1 tablet by mouth once daily rosuvastatin (Crestor) 20 mg tablet Take 1 tablet (20 mg) by mouth once daily. 0 07/11/2023 01/26/2024 Discontinued (Discontinued by another clinician) Start: 01-14-2023 take 1 tablet by alex once daily Rosuvastatin Calcium 20 MG Oral Tablet TAKE 1 TABLET DAILY. Quantity: 90 Refills: 3 Ordered: 14-Jan-2023 Yusuf Hayward MD Start : 14-Jan-2023 Active new start Rosuvastatin Joseph cium Not-Taking/PRN Rosuvastatin Joseph cium Active SITagliptin 100 mg oral tablet (13 sources) Dipeptidyl Peptidase 4 Inhibitor Start: 10-11-2023 End: 10-26-2023 take 1 tablet by mouth once daily Sitagliptin Phosphate (Januvia) 100 mg Tablet Discontinued 100 MG PO Daily October 11, 2023 1:00am October 26, 2023 3:57pm sulfamethoxazole 800 mg / trimethoprim 160 mg oral tablet (16 sources) Dihydrofolate Reductase Inhibitor Antibacterial, Sulfonamide Antimicrobial [...] mg zinc gluconate 50 mg oral tablet (18 sources) Start: 11-03-2023 End: 02-18-2024 take 50 mg by mouth once daily Zinc Gluconate Discontinued 50 MG PO Daily November 03, 2023 1:00am February 18, 2024 2:06pm Problems Active Problems Problem Classification Problem Date Documented Date Episodic/Chronic Acute myocardial infarction (4 sources) Acute myocardial infarction of anterior wall; Translations: [ST elevation (STEMI) myocardial infarction involving other coronary artery of anterior wall] Onset: 06-29-2024 06-29-2024 Chronic Cancer of breast (20 sources) Personal history of primary malignant neoplasm of breast; Translations: [Personal history of malignant neoplasm of breast] Onset: 01-12-2014 10-13-2023 Episodic Cancer; other and unspecified primary (20 sources) H/O: malignant neoplasm; Translations: [Personal history of malignant neoplasm, unspecified] Episodic Cancer; other and unspecified primary (1 source) Personal history of malignant neoplasm, unspecified; Translations: [History of cancer] Episodic Chronic ulcer of skin (8 sources) Pressure ulcer of unspecified site, stage 1; Translations: [Healing decubitus ulcer, stage 1] Chronic Congestive heart failure; nonhypertensive (2 sources) Heart failure, unspecified; Translations: [Heart failure, unspecified (Multi)] Onset: 07-13-2024 Chronic Coronary atherosclerosis and other heart disease (20 sources) Atherosclerotic heart disease of [place] coronary artery without angina pectoris; Translations: [Coronary arteriosclerosis] Onset: 09-25-2013 10-11-2023 Chronic Diabetes mellitus with complications (20 sources) Type [...] Chronic Immunizations and screening for infectious disease (16 sources) Patient encounter status; Translations: [Other specified [...] Onset: 02-08-2014 Chronic Other aftercare (2 sources) 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; Translations: [SKILLED NURSING (CURRENT) USE OF ASPIRIN] Onset: 12-13-2018 Episodic Other aftercare (1 source) Other long-term (current) drug therapy; Translations: [OTH 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 DRUG THERAPY] Onset: 12-22-2022 Episodic Other [...] joint replacement] Chronic Other connective tissue disease (8 sources) History of repair of hip joint; [...] of falling] Episodic Other lower respiratory disease (20 sources) Lung mass; Translations: [Other nonspecific abnormal finding of lung field] 10-13-2023 Episodic Other lower respiratory disease (20 sources) Other nonspecific abnormal finding of lung field; Translations: [Swelling, mass, or lump in chest] Onset: 06-09-2024 10-15-2023 Episodic Other nervous system disorders (1 source) Metabolic encephalopathy; Translations: [METABOLIC ENCEPHALOPATHY] Onset: 12-13-2018 Chronic Other nervous system disorders (20 sources) Chronic pain; Translations: [Other chronic pain] Chronic Other nervous system disorders (12 sources) Postoperative pain ; Translations: [Other acute [...] Episodic Other nutritional; endocrine; and metabolic disorders (10 sources) Body mass index (BMI) 26.0-26.9, adult; Translations: [Body Mass Index 26.0-26.9, adult] Episodic Other nutritional; endocrine; and metabolic disorders (8 sources) Overweight in adulthood with body mass [...] of diabetes mellitus] Episodic Residual codes; unclassified (15 sources) Other specified postprocedural states; Translations: [Other postprocedural status] Onset: 06-29-2024 12-08-2023 Episodic Residual codes; unclassified (2 sources) Never smoked tobacco; Translations: [Other specified health status] Onset: 01-26-2024 01-26-2024 Episodic Residual codes; unclassified (1 source) History of cardiac catheterization; Translations: [Other specified postprocedural states] 06-29-2024 Episodic Residual codes; unclassified (2 sources) Body mass index (BMI) 24.0-24.9, adult; Translations: [Body mass index (BMI) 24.0-24.9, adult] Onset: 07-13-2024 Episodic Septicemia (except in labor) (2 sources) [...] infectious disease] Onset: 12-13-2018 Episodic Viral infection (16 sources) Herpes zoster with nervous system complication; Translations: [Herpes zoster with unspecified nervous system complication] Onset: 04-01-2017 10-27-2023 Episodic Viral infection (1 source) COVID-19; Translations: [COVID-19] Onset: 10-15-2023 Past or Other Problems Problem Classification Problem Date Documented Da te Episodic/Chronic Acute bronchitis (2 sources) Acute bronchitis; [...] and of unspecified site] Onset: 10-13-2017 Episodic Coronary atherosclerosis and other heart disease (3 sources) Presence of coronary angioplasty implant and graft; Translations: [Coronary angioplasty status] Onset: 12-13-2018 Episodic E Codes: Fall (17 sources) Fall on same level from slipping, [...] Asthenia; Translations: [Weakness] Onset: 01-16-2019 Episodic Mycoses (17 sources) Candidiasis; Translations: [Candidiasis of other urogenital sites] Onset: 07-05-2014 11-11-2023 Episodic Nonmalignant breast conditions (4 sources) Discharge from nipple; Translations: [Nipple discharge] Onset: 07-01-2015 Episodic Nonspecific chest pain (3 sources) Chest pain; Translations: [Chest pain, unspecified] Onset: 05-23-2015 Episodic Other aftercare (1 source) nursing home (current) use of insulin; Translations: [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 USE OF INSULIN] Onset: 03-04-2022 Episodic [...] [Other specified health status] Onset: 10-11-2023 Episodic Residual codes; unclassified (2 sources) Edema, unspecified; Translations: [Edema, unspecified] Onset: 11-02-2023 Episodic Syncope (2 sources) Syncope and collapse; Translations: [Syncope and collapse] Onset: 07-31-2016 Episodic Unclassified (5 sources) Never smoked tobacco; Translations: [Never a smoker] Unclassified (1 source) Onset: 01-26-2024 01-26-2024 Results Test Name Value Interpretation Reference Range Facility Anisocytosis [Presence] in B lood by Light microscopyOrdered By: Roberto Carlos Mcdermott on 06-30-2024 Anisocytosis Ql (Bld) Slight Normal [facility] Comment on above: Performed By: #### B MP, DIFF CBC ####[place] [id number] [place] [id number] [facility] Basic Metabolic Panelon 06-09 Creatinine Clr Calc Pharmacy 46.26 Normal [facility] Comment on above: Result Comment: PERF ORMED BY:[address] [place], [place] [phone] MEDICAL GA WHEELER M.D. Performed By: #### B MP, DIFF CBC ####[place] [id number] [facility] GFR/1.73 sq M.predicted MDRD (S/P/Bld) [Vol rate/Area] mL/min/{1.73_m2} Normal [facility] Comment on above: Performed By: #### B MP, DIFF CBC ####[place] [id number] [facility] Basophils Auto (Bld) [#/Vol] Ordered By: Roberto Carlos Mcdermott on 06-30-2024 Basophils (Bld) [#/Vol] N/A [facility] Basophils/100 WBC Auto (Bld) Ordered By: Roberto Carlos Mcdermott on 06-30-2024 Basophils/100 WBC (Bld) N/A [facility] Calcium [Mass/volume] in Ser um or PlasmaOrdered By: Roberto Carlos Mcdermott on 06-30-2024 Calcium [Mass/Vol] 8.9 mg/dL Normal 8.6-10.3 [facility] Comment on above: Performed By: #### B MP, DIFF CBC ####[place] [id number] [facility] Carbon dioxide, total [Moles /volume] in Serum or PlasmaOrdered By: Roberto Carlos Mcdermott on 06-30-2024 CO2 [Moles/Vol] 25.9 mmol/L Normal 21.0-31.0 [facility] Comment on above: Performed By: #### B MP, DIFF CBC ####[place] [id number] [facility] Chloride [Moles/volume] in S cedric or PlasmaOrdered By: Roberto Carlos Mcdermott on 06-30-2024 Chloride [Moles/Vol] 101 mmol/L Normal 98-107 [facility] Comment on above: Performed By: #### B MP, DIFF CBC ####[place] [id number] [facility] Creatinine [Mass/volume] in Serum or PlasmaOrdered By: Roberto Carlos Mcdermott on 06-30-2024 Creatinine [Mass/Vol] 0.68 mg/dL Normal 0.60-1.20 [facility] Comment on above: Performed By: #### B MP, DIFF CBC ####[place] [id number] [facility] Diff and CBCon 06-30-2024 Mean Corpuscular HGB Conc 33.7 g/dL Normal 32.0-35.0 [facility] Comment on above: Performed By: #### B MP, DIFF CBC ####[place] [id number] [facility] Metamyelocytes 3 % High 0-0 [facility] Comment on above: Performed By: #### B MP, DIFF CBC ####[place] [id number] [facility] Ovalocytes Slight Normal [facility] Comment on above: Performed By: #### B MP, DIFF CBC ####[place] [id number] [place] Platelet Estimate Normal Normal Normal [facility] Comment on above: Performed By: #### B MP, DIFF CBC ####[place] [address] [place] [address] [facility] Platelet Morphology Normal Normal Normal [facility] Comment on above: Result Comment: PERF ORMED BY:[address] [place], [place] [phone] MEDICAL DIRECTORMELODY WHEELER M.D. Performed By: #### B MP, DIFF CBC ####[address] [address] [facility] Poikilocytosis Slight Normal [facility] Comment on above: Performed By: #### B MP, DIFF CBC ####[place] [address] [place] [address] [facility] Reactive Lymphocytes 1 % Normal 0-12 [facility] Comment on above: Performed By: #### B MP, DIFF CBC ####[address] [address] [facility] Schistocytes Slight Normal [facility] Comment on above: Performed By: #### B MP, DIFF CBC ####[address] [address] [facility] ECG 12 lead ECGon 06-30-2024 ECG 12 lead ECG Normal [facility] ECH echo transthoracicon ECH echo transthoracic Normal [facility] Eosinophils Auto (Bld) [#/Vo l]Ordered By: Roberto Carlos Mcdermott on 06-30-2024 Eosinophils (Bld) [#/Vol] N/A [facility] Eosinophils/100 WBC Auto (Bl d)Ordered By: Roberto Carlos Mcdermott on 06-30-2024 Eosinophils/100 WBC (Bld) N/A [facility] Eosinophils/100 leukocytes i n Blood by Manual countOrdered By: Roberto Carlos Mcdermott on 06-30-2024 Eosinophils/100 WBC (Bld) 6 % High 1-3 [facility] Comment on above: Performed By: #### B MP, DIFF CBC ####[address] [address] [facility] Erythrocyte distribution wid th [Ratio] by Automated countOrdered By: Roberto Carlos Mcdermott on 06-30-2024 Erythrocyte distribution width (RBC) [Ratio] 13.9 % Normal 11.9-15.3 [facility] Comment on above: Performed By: #### B MP, DIFF CBC ####[place] [id number] [facility] Erythrocytes [#/volume] in B lood by Automated countOrdered By: Roberto Carlos Mcdermott on 06-30-2024 RBC (Bld) [#/Vol] 4.62 10*6/uL Normal 3.60-5.00 [facility] Comment on above: Performed By: #### B MP, DIFF CBC ####[place] [address] [place] [id number] [facility] Glucose [Mass/volume] in Ser um or PlasmaOrdered By: Roberto Carlos Mcdermott on 06-30-2024 Glucose [Mass/Vol] 173 mg/dL High 70-100 [facility] Comment on above: ADA recommended refe rence rangeRandom Glucose Reference Range is dependent on time and content of last meal. Glucose of more than 200 mg/dL in a nonstressed, ambulatory subject supports the diagnosis of Diabetes Mellitus. Result Comment: [place] om Glucose Reference Range is dependent on time and content of last meal. Glucose of more than 200 mg/dL in a nonstressed, ambulatory subject supports the diagnosis of Diabetes Mellitus. ADA recommended reference range Performed By: #### B MP, DIFF CBC ####[place] [id number] [facility] Hematocrit [Volume Fraction] of Blood by Automated countOrdered By: Roberto Carlos Mcdermott on 06-30-2024 Hematocrit (Bld) [Volume fraction] 42.1 % Normal 34.0-46.4 [facility] Comment on above: Performed By: #### B MP, DIFF CBC ####[place] [id number] [facility] Hemoglobin [Mass/volume] in BloodOrdered By: Roberto Carlos Mcdermott on 06-30-2024 Hemoglobin (Bld) [Mass/Vol] 14.2 g/dL Normal 11.8-15.4 [facility] Comment on above: Performed By: #### B MP, DIFF CBC ####[place] [address] Leukocytes [#/volume] correc seferino for nucleated erythrocytes in Blood by Automated counOrdered By: Roberto Carlos Mcdermott on 06-30-2024 WBC corrected for nucl RBC Auto (Bld) [#/Vol] 14.1 10*3/uL High 3.8-11.6 [facility] Leukocytes [#/volume] in Blo od by Automated countOrdered By: Roberto Carlos Mcdermott on 06-30-2024 WBC (Bld) [#/Vol] 14.1 10*3/uL High 3.8-11.6 [facility] Comment on above: Performed By: #### B MP, DIFF CBC ####[address] Lymphocytes Auto (Bld) [#/Vo l]Ordered By: Roberto Carlos Mcdermott on 06-30-2024 Lymphocytes (Bld) [#/Vol] N/A [facility] Lymphocytes/100 WBC Auto (Bl d)Ordered By: Roberto Carlos Mcdermott on 06-30-2024 Lymphocytes/100 WBC (Bld) N/A [facility] Lymphocytes/100 leukocytes i n Blood by Manual countOrdered By: Roberto Carlos Mcdermott on 06-30-2024 Lymphocytes/100 WBC (Bld) 9 % Low 18-42 [facility] Comment on above: Performed By: #### B MP, DIFF CBC ####[address] MCH [Entitic mass] by Automa seferino countOrdered By: Roberto Carlos Mcdermott on 06-30-2024 MCH (RBC) [Entitic mass] 30.7 pg Normal 24.7-34.3 [facility] Comment on above: Performed By: #### B MP, DIFF CBC ####[address] MCHC Auto (RBC) [Mass/Vol]Or dered By: Roberto Carlos Mcdermott on 06-30-2024 MCHC (RBC) [Mass/Vol] 33.7 g/dL 32.0-35.0 [facility] MCV [Entitic volume] by Auto mated countOrdered By: Roberto Carlos Mcdermott on 06-30-2024 MCV (RBC) [Entitic vol] 91.3 fL Normal 80-100 [facility] Comment on above: Performed By: #### B MP, DIFF CBC ####[facility] [id number] Manual blood segmented neutr ophils/100 leukocytesOrdered By: Roberto Carlos Mcdermott on 06-30-2024 Segmented neutrophils/100 WBC (Bld) 68 % Normal 50-70 [facility] Comment on above: Performed By: #### B MP, DIFF CBC ####[facility] [id number] Metamyelocytes/100 WBC Manua l cnt (Bld)Ordered By: Roberto Carlos Mcdermott on 06-30-2024 Metamyelocytes/100 WBC (Bld) 3 % High 0-0 [facility] Monocytes Auto (Bld) [#/Vol] Ordered By: Roberto Carlos Mcdermott on 06-30-2024 Monocytes (Bld) [#/Vol] N/A [facility] Monocytes/100 WBC Auto (Bld) Ordered By: Roberto Carlos Mcdermott on 06-30-2024 Monocytes/100 WBC (Bld) N/A [facility] Monocytes/100 leukocytes in Blood by Manual countOrdered By: Roberto Carlos Mcdermott on 06-30-2024 Monocytes/100 WBC (Bld) 11 % Normal 2-11 [facility] Comment on above: Performed By: #### B MP, DIFF CBC ####[facility] [place] [id number] [facility] Neutrophils Auto (Bld) [#/Vo l]Ordered By: Roberto Carlos Mcdermott on 06-30-2024 Neutrophils (Bld) [#/Vol] N/A [facility] Neutrophils/100 WBC Auto (Bl d)Ordered By: Roberot Carlos Mcdermott on 06-30-2024 Neutrophils/100 WBC (Bld) N/A [facility] No Panel InformationOrdered By: Roberto Carlos Mcdermott on 06-30-2024 Estimated GFR (CKD-EPI) > 60.0 mL/Min [facility]acy Creatinine Clearance (Chem 46.26 [facility] Nucleated erythrocytes [Pres ence] in Blood by Automated countOrdered By: Roberto Carlos Mcdermott on 06-30-2024 Nucleated RBC Auto Ql (Bld) N/A [facility] Ovalocyte detectionOrdered B y: Roberto Carlos Mcdermott on 06-30-2024 Ovalocytes LM Ql (Bld) [facility]light [facility] Peripheral white blood cell differential % bands, microscopic examOrdered By: Roberto Carlos Mcdermott on 06-30-2024 Band form neutrophils/100 WBC (Bld) 2 % Normal 0-5 [facility] Comment on above: Performed By: #### B MP, DIFF CBC ####[facility] [id number] [place] [address] [facility] Platelet adequacy [Presence] in Blood by Light microscopyOrdered By: Roberto Carlos Mcdermott on 06-30-2024 Platelets LM Ql (Bld) Normal Normal [facility] Platelet mean volume [Entiti c volume] in Blood by Automated countOrdered By: Roberto Carlos Mcdermott on 06-30-2024 Platelet mean volume (Bld) [Entitic vol] 8.2 fL Normal 6.3-10.7 [facility] Comment on above: Result Comment: PERF ORMED BY:[address] [place] [phone] MEDICAL DIRECTORMELODY WHEELER M.D. Performed By: #### B MP, DIFF CBC ####[place] [address] [place] [address] [facility] Platelet morphology finding [Identifier] in BloodOrdered By: Roberto Carlos Mcdermott on 06-30-2024 Platelet morphology finding Nom (Bld) Normal Normal [facility] Platelets [#/volume] in Bloo d by Automated countOrdered By: Roberto Carlos Mcdermott on 06-30-2024 Platelets (Bld) [#/Vol] 228 10*3/uL Normal 150-450 [facility] Comment on above: Performed By: #### B MP, DIFF CBC ####[address] [address] [facility] Poikilocytosis [Presence] in Blood by Light microscopyOrdered By: Roberto Carlos Mcdermott on 06-30-2024 Poikilocytosis LM Ql (Bld) [facility] Potassium [Moles/volume] in Serum or PlasmaOrdered By: Roberto Carlos Mcdermott on 06-30-2024 Potassium [Moles/Vol] 4.4 mmol/L Normal 3.5-5.1 [facility] Comment on above: Performed By: #### B MP, DIFF CBC ####[place] [address] [place] [id number] [facility] RBC morphologyOrdered By: Roberto Carlos Mcdermott on 06-30-2024 RBC morphology finding Nom (Bld) N/A [facility] Schistocytes [Presence] in B lood by Light microscopyOrdered By: Roberto Carlos Mcdermott on 06-30-2024 Schistocytes LM Ql (Bld) Slight [facility] Serum or plasma anion gap de terminationOrdered By: Roberto Carlos Mcdermott on 06-30-2024 Anion gap [Moles/Vol] 9.5 mmol/L Normal 6.0-15.0 [facility] Comment on above: Performed By: #### B MP, DIFF CBC ####[place] [id number] [facility] Sodium [Moles/volume] in Ser um or PlasmaOrdered By: Roberto Carlos Mcdermott on 06-30-2024 Sodium [Moles/Vol] 132 mmol/L Low 136-145 [facility] Comment on above: Performed By: #### B MP, DIFF CBC ####[place] [id number] [place] Urea nitrogen [Mass/volume] in Serum or PlasmaOrdered By: Roberto Carlos Mcdermott on 06-30-2024 Urea nitrogen [Mass/Vol] 13 mg/dL Normal 7-25 [facility] Comment on above: Performed By: #### B MP, DIFF CBC ####[place] [id number] [place] Variant lymphocytes/100 WBC Manual cnt (Bld)Ordered By: Roberto Carlos Mcdermott on 06-30-2024 Variant lymphocytes/100 WBC (Bld) 1 % 0-12 [facility] Basic Metabolic Panelon 06-09 Anion gap [Moles/Vol] 7.8 mmol/L Normal 6.0-15.0 [facility] Comment on above: Performed By: #### C BC BMP, LIPID ####[address] Calcium [Mass/Vol] 9.4 mg/dL Normal 8.6-10.3 [facility] Comment on above: Performed By: #### C BC BMP, LIPID ####[address] Chloride [Moles/Vol] 98 mmol/L Normal 98-107 [facility] Comment on above: Performed By: #### C BC BMP, LIPID ####[address] CO2 [Moles/Vol] 28.7 mmol/L Normal 21.0-31.0 [facility] Comment on above: Performed By: #### C BC BMP, LIPID ####[address] Creatinine [Mass/Vol] 0.77 mg/dL Normal 0.60-1.20 [facility] Comment on above: Performed By: #### C BC BMP, LIPID ####[address] Creatinine Clr Calc Pharmacy 46.26 Normal [facility] Comment on above: Performed By: #### C BC BMP, LIPID ####[address] GFR/1.73 sq M.predicted MDRD (S/P/Bld) [Vol rate/Area] mL/min/{1.73_m2} Normal [facility] Comment on above: Performed By: #### C BC BMP, LIPID ####[address] Glucose [Mass/Vol] 251 mg/dL High 70-100 [facility] Comment on above: Result Comment: [place] Glucose Reference Range is dependent on time and content of last meal. Glucose of more than 200 mg/dL in a nonstressed, ambulatory subject supports the diagnosis of Diabetes Mellitus. ADA recommended reference range Performed By: #### C BC BMP, LIPID ####[facility] Potassium [Moles/Vol] 5.5 mmol/L High 3.5-5.1 [facility] Comment on above: Performed By: #### C BC, BMP, LIPID ####[place] [address] Sodium [Moles/Vol] 129 mmol/L Low 136-145 [facility] Comment on above: Performed By: #### C ROCCO BMP, LIPID ####[facility] Urea nitrogen [Mass/Vol] 13 mg/dL Normal 7-25 [facility] Comment on above: Performed By: #### C ROCCO, BMP, LIPID ####[place] [address] Basophils Auto (Bld) [#/Vol] on 06-29-2024 Basophils (Bld) [#/Vol] 0.1 10 3/uL 0.0-0.1 [facility] Basophils/100 WBC Auto (Bld) on 06-29-2024 Basophils/100 WBC (Bld) 1.0 % 0.2-2.0 [facility] Cholesterol [Mass/volume] in Serum or PlasmaOrdered By: Roberto Carlos Mcdermott on 06-29-2024 Cholesterol [Mass/Vol] 167 mg/dL Normal 140-200 [facility] Comment on above: Chol less than 200 m g/dl low riskChol 201-239 mg/dl borderline riskChol 240 mg/dl and greater high risk Result Comment: Chol less than 200 mg/dl low risk Chol 201-239 mg/dl borderline risk Chol 240 mg/dl and greater high risk Performed By: #### C BC, BMP, LIPID ####[facility] Cholesterol in LDL Calc [Mas s/Vol]Ordered By: Roberto Carlos Mcdermott on 06-29-2024 Cholesterol in LDL [Mass/Vol] 101 mg/dL High 0-100 [facility] Comment on above: LDL ATP III CLASSIFI CATIONLDL less than 100 mg/dL OptimalLDL 100-129 mg/dL Near or above optimalLDL 130-159 mg/dL Borderline highLDL 160-189 mg/dL HighLDL greater than 189 mg/dL Very high Cholesterol in VLDL Calc [Ma ss/Vol]Ordered By: Roberto Carlos Mcdermott on 06-29-2024 Cholesterol in VLDL [Mass/Vol] 19 mg/dL [facility] Complete Blood Count Auto Di ffon 06-29-2024 Basophils (Bld) [#/Vol] 0.1 10*3/uL Normal 0.0-0.2 [facility] Comment on above: Result Comment: PERF ORMED BY:[address] [place], [place] [phone] MEDICAL DIRECTORMELODY WHEELER M.D. Performed By: #### C BC, BMP, LIPID ####[address] Basophils/100 WBC (Bld) 0.8 % Normal . T kimmie [facility] Comment on above: Performed By: #### C BC, BMP, LIPID ####[address] Eosinophils (Bld) [#/Vol] 0.1 10*3/uL Normal 0.0-0.45 [facility] Comment on above: Performed By: #### C BC, BMP, LIPID ####[address] Eosinophils/100 WBC (Bld) 0.5 % Normal . [facility] Comment on above: Performed By: #### C BC, BMP, LIPID ####[address] Erythrocyte distribution width (RBC) [Ratio] 13.9 % Normal 11.9-15.3 [facility] Comment on above: Performed By: #### C BC, BMP, LIPID ####[address] Hematocrit (Bld) [Volume fraction] 41.1 % Normal 34.0-46.4 [facility] Comment on above: Performed By: #### C BC, BMP, LIPID ####[address] Hemoglobin (Bld) [Mass/Vol] 13.7 g/dL Normal 11.8-15.4 [facility] Comment on above: Performed By: #### C BC, BMP, LIPID ####[address] Lymphocytes (Bld) [#/Vol] 2.1 10*3/uL Normal 1.00-4.8 [facility] Comment on above: Performed By: #### C BC, BMP, LIPID ####[address] Lymphocytes/100 WBC (Bld) 15.0 % Normal . [facility] Comment on above: Performed By: #### C BC, BMP, LIPID ####[address] MCH (RBC) [Entitic mass] 30.5 pg Normal 24.7-34.3 [facility] Comment on above: Performed By: #### C BC, BMP, LIPID ####[address] MCV (RBC) [Entitic vol] 91.3 fL Normal 80-100 [facility] Comment on above: Performed By: #### C BC, BMP, LIPID ####[address] Mean Corpuscular HGB Conc 33.4 g/dL Normal 32.0-35.0 [facility] Comment on above: Performed By: #### C BC, BMP, LIPID ####[address] Monocytes (Bld) [#/Vol] 0.9 10*3/uL High 0.0-0.8 [facility] Comment on above: Performed By: #### C BC, BMP, LIPID ####[place] [address] [place] [id number] [facility] Monocytes/100 WBC (Bld) 6.6 % Normal . T [facility] Comment on above: Performed By: #### C BC, BMP, LIPID ####[place] [id number] [facility] Neutrophils (Bld) [#/Vol] 10.7 10*3/uL High 1.8-7.7 [facility] Comment on above: Performed By: #### C BC, BMP, LIPID ####[address] Neutrophils/100 WBC (Bld) 77.1 % Normal . [facility] Comment on above: Performed By: #### C BC, BMP, LIPID ####[address] NRBC% 0.1 /100{WBC} Normal 0-0.5 [facility] Comment on above: Performed By: #### C BC, BMP, LIPID ####[place] [id number] [facility] Platelet mean volume (Bld) [Entitic vol] 8.2 fL Normal 6.3-10.7 [facility] Comment on above: Performed By: #### C BC, BMP, LIPID ####[place] [id number] [facility] Platelets (Bld) [#/Vol] 266 10*3/uL Normal 150-450 [facility] Comment on above: Performed By: #### C BC, BMP, LIPID ####[address] RBC (Bld) [#/Vol] 4.50 10*6/uL Normal 3.60-5.00 [facility] Comment on above: Performed By: #### C BC, BMP, LIPID ####[place] [id number] [facility] WBC (Bld) [#/Vol] 13.9 10*3/uL High 3.8-11.6 [facility] Comment on above: Performed By: #### C BC, BMP, LIPID ####[facility] [id number] [place] [id number] [facility] ECG 12 lead ECGon 06-29-2024 ECG 12 lead ECG Normal [facility] Eosinophils/100 WBC Auto (Bl d)on 06-29-2024 Eosinophils/100 WBC (Bld) 1.3 % 0.9-7.0 [facility] Erythrocyte distribution wid th Auto (RBC) [Ratio]on 06-29-2024 Erythrocyte distribution width (RBC) [Ratio] 13.0 % 11.0-15.0 [facility] Estimated glomerular filtrat ion rate (GFR) non- Americanon 06-29-2024 GFR/1.73 sq M.predicted among non-blacks MDRD (S/P/Bld) [Vol rate/Area] mL/min/{1.73_m2} >=60 [facility] Hematocrit Auto (Bld) [Volum e fraction]on 06-29-2024 Hematocrit (Bld) [Volume fraction] 47.3 % 36.0-48.0 [facility] Hemoglobin [Mass/volume] in Bloodon 06-29-2024 Hemoglobin (Bld) [Mass/Vol] 16.0 g/dL 12.0-16.0 [facility] Laboratory - Chemistry and C hemistry - challengeon 06-29-2024 Calcium [Mass/Vol] 10.2 mg/dL High 8.5-10.1 [facility] Chloride [Moles/Vol] 99 mmol/L 98-107 [facility] CO2 [Moles/Vol] 31.9 mmol/L 21.0-32.0 [facility] Creatinine [Mass/Vol] 0.83 mg/dL 0.55-1.02 [facility] GFR/1.73 sq M.predicted MDRD (S/P/Bld) [Vol rate/Area] mL/min/{1.73_m2} >=60 [facility] Glucose [Mass/Vol] 222 mg/dL High 74-106 [facility] Potassium [Moles/Vol] 4.3 mmol/L 3.5-5.1 [facility] Sodium [Moles/Vol] 137 mmol/L 136-145 [facility] Urea nitrogen [Mass/Vol] 12.0 mg/dL 7.0-18.0 [facility] Urea nitrogen/Creatinine [Mass ratio] 14.5 mg/mg [facility] - Hematology and Cell countson 06-29-2024 Immature granulocytes/100 WBC (Bld) 0.7 % High 0.0-0.5 [facility] Leukocytes [#/volume] correc seferino for nucleated erythrocytes in Blood by Automated counon 06-29-2024 WBC corrected for nucl RBC Auto (Bld) [#/Vol] 12.1 10 3/uL High 4.0-11.0 [facility] Lipid Panelon 06-29-2024 LDL Cholesterol,Calculated 101 mg/dL High 0-100 [facility] Comment on above: Result Comment: LDL ATP III CLASSIFICATION LDL less than 100 mg/dL Optimal LDL 100-129 mg/dL Near or above optimal LDL 130-159 mg/dL Borderline high LDL 160-189 mg/dL High LDL greater than 189 mg/dL Very high Performed By: #### C ROCCO, BMP, LIPID ####[place] [address] [address] Triglyceride w/Reflex 97 mg/dL Normal 0-149 [facility] Comment on above: Result Comment: TRIG ATP III CLASSIFICATION TRIG less than 150 mg/dL Normal TRIG 150-199 mg/dL Borderline high TRIG 200-500 mg/dL High TRIG greater than 500 mg/dL Very high Standard traceable to the Center for Disease Conrtrol and Prevention (CDC) test method. Performed By: #### C BC, BMP, LIPID ####[facility] [place] [id number] [facility] VLDL CHOLESTEROL 19 mg/dL Normal [facility] Comment on above: Performed By: #### C BC, BMP, LIPID ####[facility] Lymphocytes Auto (Bld) [#/Vo l]on 06-29-2024 Lymphocytes (Bld) [#/Vol] 4.4 10 3/uL High 1.2-3.8 [facility] Lymphocytes/100 WBC Auto (Bl d)on 06-29-2024 Lymphocytes/100 WBC (Bld) 36.0 % 20.5-60.0 [facility] MCH Auto (RBC) [Entitic mass ]on 06-29-2024 MCH (RBC) [Entitic mass] 30.8 pg 26.7-34.0 [facility] MCHC Auto (RBC) [Mass/Vol]on 06-29-2024 MCHC (RBC) [Mass/Vol] 33.8 g/dL 29.9-35.2 [facility] MCV Auto (RBC) [Entitic vol] on 06-29-2024 MCV (RBC) [Entitic vol] 91.0 fL 81.0-99.0 [facility] Monocytes Auto (Bld) [#/Vol] on 06-29-2024 Monocytes (Bld) [#/Vol] 1.4 10 3/uL High 0.3-0.8 [facility] Monocytes/100 WBC Auto (Bld) on 06-29-2024 Monocytes/100 WBC (Bld) 11.4 % 1.7-12.0 [facility] Neutrophils Auto (Bld) [#/Vo l]on 06-29-2024 Neutrophils (Bld) [#/Vol] 6.0 10 3/uL 1.4-6.5 [facility] Neutrophils/100 WBC Auto (Bl d)on 06-29-2024 Neutrophils/100 WBC (Bld) 49.6 % 43.0-75.0 [facility] No Panel Informationon 06-29 Eosinophils # (Auto) 0.2 10 3/uL 0.0-0.7 [facility] Immature Granulocyte # (Auto) 0.08 10 3/uL High 0.00-0.03 [facility] Troponin I High Sensitivity 48.1 pg/mL 4.0-51.3 [facility] Comment on above: CUT-OFF POINTS HAVE BEEN ESTABLISHED BASED ON THE FOURTHUNIVERSAL DEFINITION OF MYOCARDIAL INFARCTION. THE UPPERREFERENCE LIMIT (URL) OF TROPONIN, DEFINED THE 99THPERCENTILE OF cTnI DISTRIBUTION IN A REFERENCE POPULATION,HAS BEEN CONFIRMED THE DECISION THRESHOLD FOR MIDIAGNOSIS.99TH PERCENTILE = 51.4 PG/MLNOTE: HIGH-SENSITIVITY TROPONIN ASSAY IS NOT INTENDED TO BEUSED IN ISOLATION BUT SHOULD BE INTERPRETED IN CONJUNCTIONWITH OTHER DIAGNOSTIC AND CLINICAL INFORMATION. Platelet mean volume Auto (B ld) [Entitic vol]on 06-29-2024 Platelet mean volume (Bld) [Entitic vol] 9.8 fL 9.5-13.5 [facility] Platelets Auto (Bld) [#/Vol] on 06-29-2024 Platelets (Bld) [#/Vol] 307 10 3/uL 150-450 [facility] RBC Auto (Bld) [#/Vol]on RBC (Bld) [#/Vol] 5.20 10 6/uL 4.20-5.40 [facility] Serum or plasma anion gap de terminationon 06-29-2024 Anion gap [Moles/Vol] 10.4 mmol/L [facility] Serum or plasma high density lipoprotein (HDL) cholesterol measurementOrdered By: Roberto Carlos Mcdermott on 06-29-2024 Cholesterol in HDL [Mass/Vol] 47 mg/dL Normal 23-92 [facility] Comment on above: HDL CHOL ATP-III CLA SSIFICATION Cardiovascular RiskHDL > or equal to 60 mg/dL LOWHDL < 40 mg/dL HIGH Result Comment: HDL CHOL ATP-III CLASSIFICATION Cardiovascular Risk HDL > or equal to 60 mg/dL LOW HDL < 40 mg/dL HIGH Performed By: #### C BC, BMP, LIPID ####[place] [address] [address] Serum or plasma total choles terol/high density lipoprotein (HDL) cholesterol mass ratOrdered By: Roberto Carlos Mcdermott on 06-29-2024 Cholesterol.total/Consuelo sterol in HDL [Mass ratio] 3.6 {ratio} Normal <5.0 [facility] Comment on above: Result Comment: PERF ORMED BY:[place] [address] [address] [place], [place] [phone] MEDICAL DIRECTORMELODY WHEELER M.D. Performed By: #### C BC, BMP, LIPID ####[place] [address] [place] [id number] [facility] Triglyceride [Mass/volume] i n Serum or PlasmaOrdered By: Roberto Carlos Mcdermott on 06-29-2024 Triglyceride [Mass/Vol] 97 mg/dL 0-149 [facility] Comment on above: TRIG ATP III CLASSIF ICATIONTRIG less than 150 mg/dL NormalTRIG 150-199 mg/dL Borderline highTRIG 200-500 mg/dL High TRIG greater than 500 mg/dL Very highStandard traceable to the Center for Disease Conrtrol and Prevention (CDC) test method. Troponin I High Sensitivityo n 06-29-2024 Troponin I High Sensitivity 03131.3 pg/mL Off scale high 0.0-15.0 [facility] Comment on above: Order Comment: Reti ed last draw was at 1228 Result Comment: Crit ical Result : Called to and read back by: ИРИНА BUTLER at: 06/29/2024 15:50:19 by:LFMPERFORMED BY:[address] [place], [place] [phone] MEDICAL DIRECTORMELODY WHEELER M.D. Performed By: #### H S TROP ####[address] [address] [facility] Troponin I High Sensitivity 27153.0 pg/mL Off scale high 0.0-15.0 [facility] Comment on above: Result Comment: Crit ical Result : Called to and read back by: ИРИНА BUTLER at: 06/29/2024 10:55:36 by:RGPERFORMED BY:[address] [place], [place] [phone] MEDICAL DIRECTORMELODY WHEELER M.D. Performed By: #### H S TROP ####[address] [address] [facility] Troponin I High Sensitivity 8507.8 pg/mL Off scale high 0.0-15.0 [facility] Comment on above: Result Comment: Crit ical Result : Called to and read back by: ИРИНА BUTLER at: 06/29/2024 08:05:28 by:RGPERFORMED BY:[address], [place] [phone] MEDICAL DIRECTORMELODY WHEELER M.D. Performed By: #### H S TROP ####[place] [address] [place] [address] [facility] Troponin I High Sensitivity 6774.1 pg/mL Off scale high 0.0-15.0 [facility] Comment on above: Result Comment: Crit ical Result : Called to and read back by: DEBRA GALE at: 06/29/2024 06:36:22 by:JOHNPERFORMED BY:[place] [address] [address] [place], [place] [phone] MEDICAL DIRECTORMELODY WHEELER M.D. Performed By: #### H S TROP ####[place] [address] [place] [address] [facility] Troponin I.cardiac [Mass/vol ume] in Serum or Plasma by Detection limit <= 0.01 ng/Ordered By: Roberto Carlos Mcdermott on 06-29-2024 Troponin I.cardiac DL <= 0.01 ng/mL [Mass/Vol] 06957.3 pg/mL High 0.0-15.0 [facility] Comment on above: Critical Result : Ca lled to and read back by: ИРИНА BUTLER at: 06/29/2024 15:50:19 by:LFAshley CT chest wo conon 06-07-2024 CT chest wo con Normal [facility] HbA1c HPLC (Bld) [Mass fract ion]on 06-07-2024 HbA1c (Bld) [Mass fraction] 9.5 % [facility] No Panel Informationon 06-07 Bedside Glucose 148 [facility] HbA1c HPLC (Bld) [Mass fract ion]on 03-07-2024 HbA1c (Bld) [Mass fraction] 9.3 % [facility] No Panel Informationon 03-07 Bedside Glucose 230 [facility] No Panel Informationon 01-16 Bedside Glucose 146 [facility] XR hip RT min 2V(w/wo pelvis )*on 01-10-2024 XR hip RT min 2V(w/wo pelvis)* Normal [facility] MM screening mammo RT w/CADo n 12-01-2023 MM screening mammo RT w/CAD Normal [facility] ANDREIA Antinuclear Antibodieson 11-24-2023 Antinuclear Abs, IFA Negative Normal . [facility] Comment on above: Result Comment: Nega tive <1:80 Borderline 1:80 Positive >1:80 ICAP nomenclature: AC-0 For more information about Hep-2 cell patterns use ANApatterns.org, the official website for the International Consensus on Antinuclear Antibody (ANDREIA) Patterns (ICAP). Performed at: [address] [id number] It Corporate Recruiter: José Manuel Petersen PhD, Phone: [phone] Performed By: #### A CE, RA, ANDREIA, ANCA PROF ####[facility] , ANCA Profile (ANCA+MPO+PR3)o n 11-24-2023 Antimyeloperoxidase (MPO) Abs <0.2 Normal 0.0-0.9 [facility] Comment on above: Performed By: #### A CE, RA, ANDREIA, ANCA PROF ####[facility] , Atypical pANCA <1:20 Normal Neg:<1:20 [facility] Comment on above: Result Comment: The atypical pANCA pattern has been observed in a significant percentage of patients with ulcerative colitis, primary sclerosing cholangitis and autoimmune hepatitis. Performed at: [address] [id number] It Corporate Recruiter: Jarod Rush MD, Phone: [phone] Performed at: [address] [id number] It [employer] Recruiter: José Manuel Petersen PhD, Phone: [phone] Performed By: #### A CE, RA, ANDREIA, ANCA PROF ####[facility] , Cytoplasmic (C-ANCA) <1:20 Normal Neg:<1:20 [facility] Comment on above: Performed By: #### A CE, RA, ANDREIA, ANCA PROF ####[facility] , Perinuclear (P-ANCA) <1:20 Normal Neg:<1:20 [facility] Comment on above: Result Comment: The presence of positive fluorescence exhibiting P-ANCA or C-ANCA patterns alone is not specific for the diagnosis of Marito's Granulomatosis (WG) or microscopic polyangiitis. Decisions about treatment should not be based solely on ANCA IFA results. The International ANCA Group Consensus recommends follow up testing of positive sera with both OH- 3 and MPO-ANCA enzyme immunoassays. As many as 5% serum samples are positive only by EIA. Ref. AM J Clin Pathol 1999;111:507-513. Performed By: #### A CE, RA, ANDREIA, ANCA PROF ####[facility] , Proteinase 3 (PR3) Antibodies <0.2 Normal 0.0-0.9 [facility] Comment on above: Result Comment: PERF ORMED BY:[place] [address] [address] [place], [place] [phone] MEDICAL DIRECTORMELODY WHEELER M.D. Performed By: #### A CE, RA, ANDREIA, ANCA PROF ####[facility] , Atypical perinuclear antineu trophil cytoplasmic antibodies measurementOrdered By: Tosha Patel on 11-24-2023 Neutrophil cytoplasmic Ab.perinuclear.atypical IF (S) [Titer] <1:20 titer Neg:<1:20 [facility] Comment on above: The atypical pANCA p attern has been observed in asignificant percentage of patients with ulcerative colitis,primary sclerosing cholangitis and autoimmune hepatitis.Performed at: - [employer] [id number] Director: Jarod Rush MD, Phone: [phone] at: - [facility] [id number] Director: José Manuel Petersen PhD, Phone: [phone] Capillary blood glucose radhames urement by glucometer (mass/volume)Ordered By: Tosha Patel on 11-24-2023 Glucose [Mass/Vol] 82 mg/dL Normal [facility] Comment on above: Random Glucose Refer ence Range is dependent on time and content of last meal. Glucose of more than 200 mg/dL in a nonstressed, ambulatory subject supports the diagnosis of Diabetes Mellitus. Result Comment: [facility] Glucose Reference Range is dependent on time and content of last meal. Glucose of more than 200 mg/dL in a nonstressed, ambulatory subject supports the diagnosis of Diabetes Mellitus.PERFORMED BY:[facility] [place], [place] [phone] MEDICAL DIRECTORMELODY WHEELER M.D. Performed By: #### G LULS ####Point of Care testing, Myeloperoxidase Ab [Units/vo lume] in Serum by ImmunoassayOrdered By: Tosha Barrientos on 11-24-2023 Myeloperoxidase Ab IA Qn (S) <0.2 units 0.0-0.9 [facility] No Panel InformationOrdered By: Tosha Patel on 11-24-2023 Perinuclear ANCA (p-ANCA) Antibody <1:20 titer Neg:<1:20 [facility] Comment on above: The presence of posi tive fluorescence exhibiting P-ANCA orC-ANCA patterns alone is not specific for the diagnosis ofWegener's Granulomatosis (WG) or microscopic polyangiitis.Decisions about treatment should not be based solely onANCA IFA results. The International ANCA Group Consensusrecommends follow up testing of positive sera with both OH-3 and MPO-ANCA enzyme immunoassays. As many as 5% serumsamples are positive only by EIA. Ref. AM J Clin Tmowoe6901;111:507-513. PET tumor init tx strat sb-m ton 11-24-2023 PET tumor init tx strat sb-mt Normal [facility] Proteinase 3 Ab [Units/volum e] in Serum by ImmunoassayOrdered By: Tosha Patel on 11-24-2023 Proteinase 3 Ab IA Qn (S) <0.2 units 0.0-0.9 [facility] Rheumatoid Factoron 11-24-19 24 Rheumatoid Factor <10.0 Normal <14.0 [facility] Comment on above: Result Comment: Perf ormed at: [facility] - [facility] [id number] It Corporate Recruiter: José Manuel Petersen PhD, Phone: [phone] Performed By: #### A CE, RA, ANDREIA, ANCA PROF ####[facility] , Serum angiotensin converting enzyme (SONIYA) measurementOrdered By: Tosha Patel on 11-24-2023 Angiotensin converting enzyme [Catalytic activity/Vol] 50 U/L Normal 14-82 [facility] Comment on above: Performed at: [address] [id number] Director: José Manuel Petersen PhD, Phone: [phone] Result Comment: Perf ormed at: [address] [id number] It Corporate Recruiter: José Manuel Petersen PhD, Phone: [phone] Performed By: #### A CE, RA, ANDREIA, ANCA PROF ####[facility] , Serum classic neutrophil cyt oplasmic antibody titer by immunofluorescenceOrdered By: Tosha Patel on 11-24-2023 Neutrophil cytoplasmic Ab.classic IF (S) [Titer] <1:20 titer Neg:<1:20 [facility] Serum homogeneous pattern an tinuclear antibody (ANDREIA) titerOrdered By: Tosha Barrientos on 11-24-2023 Homogenous nuclear Ab pattern (S) [Titer] N/A [facility] Serum nuclear antibody titer Ordered By: Tosha Patel on 11-24-2023 Nuclear Ab (S) [Titer] Negative . [facility] Comment on above: Negative <1:80 Borde rline 1:80 Positive >1:80ICAP nomenclature: AC-0For more information about Hep-2 cell patterns useANApatterns.org, the official website for theInternational Consensus on Antinuclear Antibody (ANDREIA)Patterns (ICAP).Performed at: [facility] [id number] Director: José Manuel Petersen PhD, Phone: [phone] Serum or plasma rheumatoid f actor measurement (units/volume)Ordered By: Tosha Patel on 11-24-2023 Rheumatoid factor Qn [IU]/mL <14.0 [facility] Comment on above: Performed at: [address] [id number] Director: José Manuel Petersen PhD, Phone: [phone] A1C HEMOGLOBINon 11-18-2023 HbA1c (Bld) [Mass fraction] 9.8 % [facility] [employer] Other Glucose - FINGER STICKon Glucose [Mass/Vol] 116 mg/dL [facility] [employer] Other HbA1c (Bld) [Mass fraction]o n 11-18-2023 A1C HEMOGLOBIN [facility] [employer] Other XR hip RT min 2V(w/wo pelvis )*on 11-16-2023 XR hip RT min 2V(w/wo pelvis)* Normal [facility] Capillary blood glucose radhames urement by glucometer (mass/volume)Ordered By: Anthony Alaniz on 11-03-2023 Glucose [Mass/Vol] 131 mg/dL Normal [facility] Comment on above: Random Glucose Refer ence Range is dependent on time and content of last meal. Glucose of more than 200 mg/dL in a nonstressed, ambulatory subject supports the diagnosis of Diabetes Mellitus. Result Comment: [facility] Glucose Reference Range is dependent on time and content of last meal. Glucose of more than 200 mg/dL in a nonstressed, ambulatory subject supports the diagnosis of Diabetes Mellitus.PERFORMED BY:[facility] [place], [place] [phone] MEDICAL DIRECTORMELODY WHEELER M.D. Performed By: #### G LULS ####Point of Care testing, Glucose Poct Glucometerson 1 01-04-2023 Glucose [Mass/Vol] 97 mg/dL Normal [facility] Comment on above: Result Comment: [facility] Glucose Reference Range is dependent on time and content of last meal. Glucose of more than 200 mg/dL in a nonstressed, ambulatory subject supports the diagnosis of Diabetes Mellitus.PERFORMED BY:[place] [address] [address] [place], [place] [phone] MEDICAL DIRECTORMELODY WHEELER M.D. Performed By: #### G OTONIEL ####Point of Care testing, Automated basophil %Ordered By: Irma Renee on 11-02-2023 Basophils/100 WBC (Bld) 0.6 % Normal . [facility] Comment on above: Performed By: #### C BC, BMP ####[address] Automated basophil countOrde red By: Irma Duran on 11-02-2023 Basophils (Bld) [#/Vol] 0.0 10*3/uL Normal 0.0-0.2 [facility] Comment on above: Result Comment: PERF ORMED BY:[address] [place], [place] [phone] MEDICAL DIRECTORMELODY WHEELER M.D. Performed By: #### C BC, BMP ####[address] Automated blood monocyte cou ntOrdered By: Irma Duran on 11-02-2023 Monocytes (Bld) [#/Vol] 0.6 10*3/uL Normal 0.0-0.8 [facility] Comment on above: Performed By: #### C BC, BMP ####[address] Automated eosinophil %Ordere d By: Irma Duran on 11-02-2023 Eosinophils/100 WBC (Bld) 0.4 % Normal . [facility] Comment on above: Performed By: #### C BC, BMP ####[place] [id number] [facility] Automated eosinophil countOr dered By: Irma Renee on 11-02-2023 Eosinophils (Bld) [#/Vol] 0.0 10*3/uL Normal 0.0-0.45 [facility] Comment on above: Performed By: #### C BC, BMP ####[place] [address] [place] [address] [facility] Automated erythrocytes count in urine sediment (number/area)Ordered By: Irma Maychanda on 11-02-2023 RBC Auto (Urine sed) [#/Area] 0-1 [HPF] 0-4 [facility] Automated leukocytes count i n urine sediment (number/area)Ordered By: Irma Annaravinchanda on 11-02-2023 WBC Auto (Urine sed) [#/Area] 5-9 [HPF] 0-4 [facility] Automated monocyte %Ordered By: Irma Maychanda on 11-02-2023 Monocytes/100 WBC (Bld) 11.5 % Normal . [facility] Comment on above: Performed By: #### C BC, BMP ####[place] [id number] [facility] Automated neutrophil %Ordere d By: Irma Renee on 11-02-2023 Neutrophils/100 WBC (Bld) 57.7 % Normal . [facility] Comment on above: Performed By: #### C BC, BMP ####[place] [id number] [facility] Automated urine color determ inationOrdered By: Irma Renee on 11-02-2023 Color (U) Yellow Normal Yellow [facility] Comment on above: Order Comment: Name Collection Type:: Clean-Voided Midstream Performed By: #### A DDONUAPLUS, CUU ####[place] [id number] [facility] Basic Metabolic Panelon -2 Creatinine Clr Calc Pharmacy 47.65 Normal [facility] Comment on above: Result Comment: PERF ORMED BY:[address] [place], [place] [phone] MEDICAL DIRECTORMELODY WHEELER M.D. Performed By: #### C BC, BMP ####[place] [id number] [facility] GFR/1.73 sq M.predicted MDRD (S/P/Bld) [Vol rate/Area] mL/min/{1.73_m2} Normal [facility] Comment on above: Performed By: #### C BC, BMP ####[place] [id number] [facility] Bilirubin Test strip Ql (U)O rdered By: Irma Duran on 11-02-2023 Bilirubin Ql (U) Negative Negative [facility] Calcium [Mass/volume] in Ser um or PlasmaOrdered By: Irma Duran on 11-02-2023 Calcium [Mass/Vol] 8.6 mg/dL Normal 8.6-10.3 [facility] Comment on above: Performed By: #### C BC, BMP ####[address] Carbon dioxide, total [Moles /volume] in Serum or PlasmaOrdered By: Irma Duran on 11-02-2023 CO2 [Moles/Vol] 24.3 mmol/L Normal 21.0-31.0 [facility] Comment on above: Performed By: #### C BC, BMP ####[place] [id number] [facility] Chloride [Moles/volume] in S cedric or PlasmaOrdered By: Irma Duran on 11-02-2023 Chloride [Moles/Vol] 104 mmol/L Normal 98-107 [facility] Comment on above: Performed By: #### C BC, BMP ####[place] [id number] [facility] Complete Blood Count Auto Di ffon 11-02-2023 Mean Corpuscular HGB Conc 33.2 g/dL Normal 32.0-35.0 [facility] Comment on above: Performed By: #### C BC, BMP ####[place] [id number] [facility] NRBC% 0.0 /100{WBC} Normal 0-0.5 [facility] Comment on above: Performed By: #### C BC, BMP ####[place] [id number] [facility] Creatinine [Mass/volume] in Serum or PlasmaOrdered By: Irma Duran on 11-02-2023 Creatinine [Mass/Vol] 0.63 mg/dL Normal 0.60-1.20 [facility] Comment on above: Performed By: #### C BC, BMP ####[address] [address] [facility] Dipstick and Microscopicon 1 01-03-2023 Appearance (U) Clear Normal Clear [facility] Comment on above: Order Comment: Name Collection Type:: Clean-Voided Midstream Performed By: #### A DDONUAPLUS, CUU ####[address] [address] [facility] Bacteria,Urine None Seen Normal None Seen [facility] Comment on above: Order Comment: Name Collection Type:: Clean-Voided Midstream Performed By: #### A DDONUAPLUS, CUU ####[address] [address] [facility] Bilirubin,Urine Negative Normal Negative [facility] Comment on above: Order Comment: Name Collection Type:: Clean-Voided Midstream Performed By: #### A DDONUAPLUS, CUU ####[address] [address] [facility] Glucose Ql (U) Normal Normal Normal [facility] Comment on above: Order Comment: Name Collection Type:: Clean-Voided Midstream Performed By: #### A DDONUAPLUS, CUU ####[address] [address] [facility] Hyaline Casts,Urine 0-8 Normal 0-8 [facility] Comment on above: Order Comment: Name Collection Type:: Clean-Voided Midstream Result Comment: PERF ORMED BY:[address] [place], [place] [phone] MEDICAL DIRECTORMELODY WHEELER M.D. Performed By: #### A DDONUAPLUS, CUU ####[address] [address] [facility] Ketones Ql (U) Trace High Negative [facility] Comment on above: Order Comment: Name Collection Type:: Clean-Voided Midstream Performed By: #### A DDONUAPLUS, CUU ####[place] [id number] [facility] Leukocyte esterase Test strip Ql (U) 2+ High Negative [facility] Group Comment on above: Order Comment: Name Collection Type:: Clean-Voided Midstream Performed By: #### A DDONUAPLUS, CUU ####[address] [address] [facility] Nitrite,Urine Negative Normal Negative [facility] Comment on above: Order Comment: Name Collection Type:: Clean-Voided Midstream Performed By: #### A DDONUAPLUS, CUU ####[address] [address] [facility] Occult Blood,Urine Negative Normal Negative [facility] Comment on above: Order Comment: Name Collection Type:: Clean-Voided Midstream Performed By: #### A DDONUAPLUS, CUU ####[address] [address] [facility] Protein,Urine Negative Normal Negative [facility] Comment on above: Order Comment: Name Collection Type:: Clean-Voided Midstream Performed By: #### A DDONUAPLUS, CUU ####[address] [address] [facility] RBC LM.HPF (Urine sed) [#/Area] 0 /[HPF] Normal 0-4 [facility] Comment on above: Order Comment: Name Collection Type:: Clean-Voided Midstream Performed By: #### A DDONUAPLUS, CUU ####[address] [address] [facility] Specificy [place],Urine 1.010 Normal 1.00 1-1.03 0 [facility] Comment on above: Order Comment: Name Collection Type:: Clean-Voided Midstream Performed By: #### A DDONUAPLUS, CUU ####[address] [address] [facility] Squamous Epithelial Cell,Urine 0-1 Normal 0-2 [facility] Comment on above: Order Comment: Name Collection Type:: Clean-Voided Midstream Performed By: #### A DDONUAPLUS, CUU ####[address] [place] [address] [facility] Urobilinogen,Urine Normal Normal Normal [facility] Comment on above: Order Comment: Name Collection Type:: Clean-Voided Midstream Performed By: #### A DDONUAPLUS, CUU ####[address] [address] [facility] WBC,Urine 5-9 High 0-4 [facility] Comment on above: Order Comment: Name Collection Type:: Clean-Voided Midstream Performed By: #### A DDONUAPLUS, CUU ####[id number] [facility] Erythrocyte distribution wid th [Ratio] by Automated countOrdered By: Irma Duran on 11-02-2023 Erythrocyte distribution width (RBC) [Ratio] 15.6 % High 11.9-15.3 [facility] Comment on above: Performed By: #### C BC, BMP ####[address] Erythrocytes [#/volume] in B lood by Automated countOrdered By: Irma Duran on 11-02-2023 RBC (Bld) [#/Vol] 4.00 10*6/uL Normal 3.60-5.00 [facility] Comment on above: Performed By: #### C BC, BMP ####[id number] [facility] Glucose Poct Glucometerson 1 01-03-2023 Commemt1 Glu2: Cleaned Meter Normal [facility] Comment on above: Result Comment: PERF ORMED BY:[address] [place], [place] [phone] MEDICAL DIRECTORMELODY WHEELER M.D. Performed By: #### G LUEVIE ####Point of Care testing, Glucose [Mass/Vol] 135 mg/dL Normal [facility] Comment on above: Result Comment: [place] om Glucose Reference Range is dependent on time and content of last meal. Glucose of more than 200 mg/dL in a nonstressed, ambulatory subject supports the diagnosis of Diabetes Mellitus. Performed By: #### G LULS ####Point of Care testing, Commemt1 Glu2: Cleaned Meter Normal [facility] Comment on above: Result Comment: PERF ORMED BY:[address] [place], [place] [phone] MEDICAL DIRECTORMELODY WHEELER M.D. Performed By: #### G LULS ####Point of Care testing, Glucose [Mass/Vol] 125 mg/dL Normal [facility] Comment on above: Result Comment: [place] om Glucose Reference Range is dependent on time and content of last meal. Glucose of more than 200 mg/dL in a nonstressed, ambulatory subject supports the diagnosis of Diabetes Mellitus. Performed By: #### G LULS ####Point of Care testing, Commemt1 Glu2: Cleaned Meter Normal [facility] Comment on above: Result Comment: PERF ORMED BY:[address] [place], [place] [phone] MEDICAL DIRECTORMELODY WHEELER M.D. Performed By: #### G LULS ####Point of Care testing, Glucose [Mass/Vol] 151 mg/dL Normal [facility] Comment on above: Result Comment: [place] om Glucose Reference Range is dependent on time and content of last meal. Glucose of more than 200 mg/dL in a nonstressed, ambulatory subject supports the diagnosis of Diabetes Mellitus. Performed By: #### G LULS ####Point of Care testing, Commemt1 Glu2: Cleaned Meter Normal [facility] Comment on above: Result Comment: PERF ORMED BY:[address] [place], [place] [phone] MEDICAL DIRECTORMELODY WHEELER M.D. Performed By: #### G LULS ####Point of Care testing, Glucose [Mass/Vol] 87 mg/dL Normal [facility] Comment on above: Result Comment: [place] om Glucose Reference Range is dependent on time and content of last meal. Glucose of more than 200 mg/dL in a nonstressed, ambulatory subject supports the diagnosis of Diabetes Mellitus. Performed By: #### G OTONIEL ####Point of Care testing, Glucose [Mass/volume] in Ser um or PlasmaOrdered By: Irma Duran on 11-02-2023 Glucose [Mass/Vol] 186 mg/dL High 70-100 [facility] Comment on above: ADA recommended refe rence rangeRandom Glucose Reference Range is dependent on time and content of last meal. Glucose of more than 200 mg/dL in a nonstressed, ambulatory subject supports the diagnosis of Diabetes Mellitus. Result Comment: [place] om Glucose Reference Range is dependent on time and content of last meal. Glucose of more than 200 mg/dL in a nonstressed, ambulatory subject supports the diagnosis of Diabetes Mellitus. ADA recommended reference range Performed By: #### C BC, BMP ####[address] [place] [id number] [facility] Hematocrit [Volume Fraction] of Blood by Automated countOrdered By: Irma Duran on 11-02-2023 Hematocrit (Bld) [Volume fraction] 36.7 % Normal 34.0-46.4 [facility] Comment on above: Performed By: #### C ROCCO, BMP ####[address] [place] [address] [facility] Hemoglobin [Mass/volume] in BloodOrdered By: Irma Duran on 11-02-2023 Hemoglobin (Bld) [Mass/Vol] 12.2 g/dL Normal 11.8-15.4 [facility] Comment on above: Performed By: #### C BC, BMP ####[address] [place] [id number] [facility] Ketones Auto test strip (U) [Mass/Vol]Ordered By: Irma Duran on 11-02-2023 Ketones (U) [Mass/Vol] Trace Negative [facility] - UrinalysisOrder ed By: Irma Duran on 11-02-2023 Hyaline casts LM Ql (Urine sed) 0-8 [LPF] 0-8 [facility] Leukocytes [#/volume] correc seferino for nucleated erythrocytes in Blood by Automated counOrdered By: Irma Duran on 11-02-2023 WBC corrected for nucl RBC Auto (Bld) [#/Vol] 5.2 10*3/uL 3.8-11.6 [facility] Leukocytes [#/volume] in Blo od by Automated countOrdered By: Irma Duran on 11-02-2023 WBC (Bld) [#/Vol] 5.2 10*3/uL Normal 3.8-11.6 [facility] Comment on above: Performed By: #### C ROCCO, BMP ####[address] Lymphocytes [#/volume] in Bl ood by Automated countOrdered By: Irma Duran on 11-02-2023 Lymphocytes (Bld) [#/Vol] 1.6 10*3/uL Normal 1.00-4.8 [facility] Comment on above: Performed By: #### C ROCCO, BMP ####[address] Lymphocytes/100 leukocytes i n Blood by Automated countOrdered By: Irma Duran on 11-02-2023 Lymphocytes/100 WBC (Bld) 29.8 % Normal . [facility] Comment on above: Performed By: #### C BC, BMP ####[address] MCH [Entitic mass] by Automa seferino countOrdered By: Irma Duran on 11-02-2023 MCH (RBC) [Entitic mass] 30.5 pg Normal 24.7-34.3 [facility] Comment on above: Performed By: #### C BC, BMP ####[address] MCHC Auto (RBC) [Mass/Vol]Or dered By: Irma Duran on 11-02-2023 MCHC (RBC) [Mass/Vol] 33.2 g/dL 32.0-35.0 [facility] MCV [Entitic volume] by Auto mated countOrdered By: Irma Duran on 11-02-2023 MCV (RBC) [Entitic vol] 91.8 fL Normal 80-100 [facility] Comment on above: Performed By: #### C BC, BMP ####[address] [place] [id number] [facility] Neutrophils [#/volume] in Bl ood by Automated countOrdered By: Irma Duran on 11-02-2023 Neutrophils (Bld) [#/Vol] 3.0 10*3/uL Normal 1.8-7.7 [facility] Comment on above: Performed By: #### C BC, BMP ####[address] [place] [id number] [facility] Nitrite Test strip Ql (U)Ord ered By: Irma Duran on 11-02-2023 Nitrite Ql (U) Negative Negative [facility] No Panel InformationOrdered By: Anthony Alaniz on 11-02-2023 Bedside Glucose Comment Glu2: cleaned meter [facility] No Panel InformationOrdered By: Irma Duran on 11-02-2023 Estimated GFR (CKD-EPI) > 60.0 mL/Min [facility] Creatinine Clearance (Chem 47.65 [facility] Nucleated erythrocytes [Pres ence] in Blood by Automated countOrdered By: Irma Duran on 11-02-2023 Nucleated RBC Auto Ql (Bld) 0.0 /100{WBC} 0-0.5 [facility] Platelet mean volume [Entiti c volume] in Blood by Automated countOrdered By: Irma Duran on 11-02-2023 Platelet mean volume (Bld) [Entitic vol] 8.3 fL Normal 6.3-10.7 [facility] Comment on above: Performed By: #### C BC, BMP ####[address] [place] [address] [facility] Platelets [#/volume] in Bloo d by Automated countOrdered By: Irma Duran on 11-02-2023 Platelets (Bld) [#/Vol] 252 10*3/uL Normal 150-450 [facility] Comment on above: Performed By: #### C ROCCO, BMP ####[address] [place] [id number] [facility] Potassium [Moles/volume] in Serum or PlasmaOrdered By: Irma Duran on 11-02-2023 Potassium [Moles/Vol] 4.1 mmol/L Normal 3.5-5.1 [facility] Comment on above: Performed By: #### C ROCCO, BMP ####[address] [place] [id number] [facility] Protein Auto test strip (U) [Mass/Vol]Ordered By: Irma Duran on 11-02-2023 Protein (U) [Mass/Vol] Negative Negative [facility] Serum or plasma anion gap de terminationOrdered By: Irma Duran on 11-02-2023 Anion gap [Moles/Vol] 8.8 mmol/L Normal 6.0-15.0 [facility] Comment on above: Performed By: #### C ROCCO, BMP ####[id number] [facility] Sodium [Moles/volume] in Ser um or PlasmaOrdered By: Irma Duran on 11-02-2023 Sodium [Moles/Vol] 133 mmol/L Low 136-145 [facility] Comment on above: Performed By: #### C ROCCO, BMP ####[address] [place] [id number] [facility] Specific gravity Auto test s trip (U) [Rel density]Ordered By: Irma Duran on 11-02-2023 Specific gravity (U) [Rel density] 1.010 1.001-1.03 0 [facility] Squamous epithelial cells de tection in urine sediment by light microscopyOrdered By: Irma Duran on 11-02-2023 Epithelial cells.squamous LM Ql (Urine sed) 0-1 [HPF] 0-2 [facility] Urea nitrogen [Mass/volume] in Serum or PlasmaOrdered By: Irma Duran on 11-02-2023 Urea nitrogen [Mass/Vol] 7 mg/dL Normal 7-25 [facility] Comment on above: Performed By: #### C BC, BMP ####[facility] [id number] Urine Cultureon 11-02-2023 Bacteria identified Cx Nom (U) Normal [facility] Comment on above: Performed By: #### A JULI, CUU ####[facility] [address] Urine bacteria detection by automated methodOrdered By: Irma Duran on 11-02-2023 Bacteria Auto Ql (U) None seen None Seen [facility] Urine clarity by refractomet ry automatedOrdered By: Irma Duran on 11-02-2023 Clarity Refractometry automated (U) Clear Clear [facility] Urine culture routineOrdered By: Irma Duran on 11-02-2023 Bacteria identified Cx Nom (U) 2 Days [facility] Urine glucose measurement by automated test strip (mass/volume)Ordered By: Irma Duran on 11-02-2023 Glucose Auto test strip (U) [Mass/Vol] Normal mg/dL Normal [facility] Urine hemoglobin detection b y automated test stripOrdered By: Irma Duran on 11-02-2023 Hemoglobin Auto test strip Ql (U) Negative Negative [facility] Urine leukocyte esterase det ection by automated test stripOrdered By: Irma Duran on 11-02-2023 Leukocyte esterase Auto test strip Ql (U) 2+ Negative [facility] Urine pH measurement by auto mated test stripOrdered By: Irma Duran on 11-02-2023 pH (U) 7.5 [pH] Normal 5.0-9.0 [facility] Comment on above: Order Comment: Name Collection Type:: Clean-Voided Midstream Performed By: #### A JULI, CUU ####[facility] [id number] Urobilinogen Auto test strip (U) [Mass/Vol]Ordered By: Irma Duran on 11-02-2023 Urobilinogen (U) [Mass/Vol] Normal mg/dL Normal [facility] Glucose Poct Glucometerson 1 01-02-2023 Glucose [Mass/Vol] 107 mg/dL Normal [facility] Comment on above: Result Comment: [place] Glucose Reference Range is dependent on time and content of last meal. Glucose of more than 200 mg/dL in a nonstressed, ambulatory subject supports the diagnosis of Diabetes Mellitus.PERFORMED BY:[address] [place], [place] [phone] MEDICAL DIRECTORMELODY WHEELER M.D. Performed By: #### G LULS ####Point of Care testing, Glucose [Mass/Vol] 150 mg/dL Normal [facility] Comment on above: Result Comment: [place] Glucose Reference Range is dependent on time and content of last meal. Glucose of more than 200 mg/dL in a nonstressed, ambulatory subject supports the diagnosis of Diabetes Mellitus.PERFORMED BY:[address] [place], [place] [phone] MEDICAL DIRECTORMELODY WHEELER M.D. Performed By: #### G LULS ####Point of Care testing, Glucose [Mass/Vol] 179 mg/dL Normal [facility] Comment on above: Result Comment: [place] Glucose Reference Range is dependent on time and content of last meal. Glucose of more than 200 mg/dL in a nonstressed, ambulatory subject supports the diagnosis of Diabetes Mellitus.PERFORMED BY:[address] [place], [place] [phone] MEDICAL DIRECTORMELODY WHEELER M.D. Performed By: #### G LULS ####Point of Care testing, Glucose [Mass/Vol] 101 mg/dL Normal [facility] Comment on above: Result Comment: [place] Glucose Reference Range is dependent on time and content of last meal. Glucose of more than 200 mg/dL in a nonstressed, ambulatory subject supports the diagnosis of Diabetes Mellitus.PERFORMED BY:[address] [address] [place] [place], [place] [phone] MEDICAL GA WHEELER M.D. Performed By: #### G LULS ####Point of Care testing, Glucose Poct Glucometerson 01-01-2023 Glucose [Mass/Vol] 205 mg/dL Normal [facility] Comment on above: Result Comment: [place] Glucose Reference Range is dependent on time and content of last meal. Glucose of more than 200 mg/dL in a nonstressed, ambulatory subject supports the diagnosis of Diabetes Mellitus.PERFORMED BY:[address] [place], [place] [phone] MEDICAL DIRECTORMELODY WHEELER M.D. Performed By: #### G LULS ####Point of Care testing, Glucose [Mass/Vol] 167 mg/dL Normal [facility] Comment on above: Result Comment: [place] Glucose Reference Range is dependent on time and content of last meal. Glucose of more than 200 mg/dL in a nonstressed, ambulatory subject supports the diagnosis of Diabetes Mellitus.PERFORMED BY:[address] [place], [place] [phone] MEDICAL GA WHEELER M.D. Performed By: #### G LULS ####Point of Care testing, Glucose [Mass/Vol] 183 mg/dL Normal [facility] Comment on above: Result Comment: [place] om Glucose Reference Range is dependent on time and content of last meal. Glucose of more than 200 mg/dL in a nonstressed, ambulatory subject supports the diagnosis of Diabetes Mellitus.PERFORMED BY:[address] [place], [place] [phone] MEDICAL GA WHEELER M.D. Performed By: #### G LULS ####Point of Care testing, Glucose [Mass/Vol] 128 mg/dL Normal [facility] Comment on above: Result Comment: [place] om Glucose Reference Range is dependent on time and content of last meal. Glucose of more than 200 mg/dL in a nonstressed, ambulatory subject supports the diagnosis of Diabetes Mellitus.PERFORMED BY:[address] [place], [place] [phone] MEDICAL DIRECTORMELODY WHEELER M.D. Performed By: #### G OTONIEL ####Point of Care testing, Basic Metabolic Panelon 12-2 Anion gap [Moles/Vol] 11.1 mmol/L Normal 6.0-15.[address] [facility] Comment on above: Performed By: #### C BC, BMP ####[address] [place] [address] [facility] Calcium [Mass/Vol] 8.2 mg/dL Low 8.6-10.3 [facility] Comment on above: Performed By: #### C ROCCO, BMP ####[address] [place] [address] [facility] Chloride [Moles/Vol] 100 mmol/L Normal 98-107 [facility] Comment on above: Performed By: #### C ROCCO, BMP ####[address] [address] [facility] CO2 [Moles/Vol] 26.4 mmol/L Normal 21.0-31.0 [facility] Comment on above: Performed By: #### C ROCCO, BMP ####[address] [address] [facility] Creatinine [Mass/Vol] 0.62 mg/dL Normal 0.60-1.20 [facility] Comment on above: Performed By: #### C ROCCO, BMP ####[address] [address] [facility] Creatinine Clr Calc Pharmacy 47.29 Normal [facility] Comment on above: Result Comment: PERF ORMED BY:[address] [address] [place] [place], [place] [phone] MEDICAL DIRECTORMELODY WHEELER M.D. Performed By: #### C BC, BMP ####[address] [place] [address] [facility] GFR/1.73 sq M.predicted MDRD (S/P/Bld) [Vol rate/Area] mL/min/{1.73_m2} Normal [facility] Comment on above: Performed By: #### C BC, BMP ####[address] [address] [facility] Glucose [Mass/Vol] 87 mg/dL Normal 70-100 [facility] Comment on above: Result Comment: [place] Glucose Reference Range is dependent on time and content of last meal. Glucose of more than 200 mg/dL in a nonstressed, ambulatory subject supports the diagnosis of Diabetes Mellitus. ADA recommended reference range Performed By: #### C BC, BMP ####[address] [address] [facility] Potassium [Moles/Vol] 4.5 mmol/L Normal 3.5-5.1 [facility] Comment on above: Performed By: #### C BC, BMP ####[place] [id number] [facility] Sodium [Moles/Vol] 133 mmol/L Low 136-145 [facility] Comment on above: Performed By: #### C BC, BMP ####[address] [address] [facility] Urea nitrogen [Mass/Vol] 8 mg/dL Normal 7-25 [facility] Comment on above: Performed By: #### C BC, BMP ####[place] [id number] [facility] Complete Blood Count Auto Di ffon 10-30-2023 Basophils (Bld) [#/Vol] 0.0 10*3/uL Normal 0.0-0.2 [facility] Comment on above: Result Comment: PERF ORMED BY:[address] [place], [place] [phone] MEDICAL GA WHEELER M.D. Performed By: #### C BC, BMP ####[address] [address] [facility] Basophils/100 WBC (Bld) 0.9 % Normal . [facility] Comment on above: Performed By: #### C BC, BMP ####[address] Eosinophils (Bld) [#/Vol] 0.0 10*3/uL Normal 0.0-0.45 [facility] Comment on above: Performed By: #### C BC, BMP ####[address] Eosinophils/100 WBC (Bld) 0.7 % Normal . [facility] Comment on above: Performed By: #### C BC, BMP ####[address] Erythrocyte distribution width (RBC) [Ratio] 15.2 % Normal 11.9-15.3 [facility] Comment on above: Performed By: #### C BC, BMP ####[address] Hematocrit (Bld) [Volume fraction] 35.3 % Normal 34.0-46.4 [facility] Comment on above: Performed By: #### C BC, BMP ####[address] Hemoglobin (Bld) [Mass/Vol] 11.7 g/dL Low 11.8-15.4 [facility] Comment on above: Performed By: #### C BC, BMP ####[address] Lymphocytes (Bld) [#/Vol] 2.2 10*3/uL Normal 1.00-4.8 [facility] Comment on above: Performed By: #### C BC, BMP ####[address] Lymphocytes/100 WBC (Bld) 52.4 % Normal . [facility] Comment on above: Performed By: #### C BC, BMP ####[address] MCH (RBC) [Entitic mass] 30.4 pg Normal 24.7-34.3 [facility] Comment on above: Performed By: #### C BC, BMP ####[address] MCV (RBC) [Entitic vol] 92.0 fL Normal 80-100 [facility] Comment on above: Performed By: #### C BC, BMP ####[address] Mean Corpuscular HGB Conc 33.1 g/dL Normal 32.0-35.0 [facility] Comment on above: Performed By: #### C BC, BMP ####[address] Monocytes (Bld) [#/Vol] 0.7 10*3/uL Normal 0.0-0.8 [facility] Comment on above: Performed By: #### C ROCCO, BMP ####[address] Monocytes/100 WBC (Bld) 16.3 % Normal . [facility] Comment on above: Performed By: #### C ROCCO, BMP ####[address] Neutrophils (Bld) [#/Vol] 1.2 10*3/uL Low 1.8-7.7 [facility] Comment on above: Performed By: #### C ROCCO, BMP ####[address] Neutrophils/100 WBC (Bld) 29.7 % Normal . [facility] Comment on above: Performed By: #### C BC, BMP ####[address] NRBC% 0.1 /100{WBC} Normal 0-0.5 [facility] Comment on above: Performed By: #### C BC, BMP ####[address] Platelet mean volume (Bld) [Entitic vol] 8.4 fL Normal 6.3-10.7 [facility] Comment on above: Performed By: #### C BC, BMP ####[address] [place] [address] [facility] Platelets (Bld) [#/Vol] 259 10*3/uL Normal 150-450 [facility] Comment on above: Performed By: #### C BC, BMP ####[address] [address] [facility] RBC (Bld) [#/Vol] 3.83 10*6/uL Normal 3.60-5.00 [facility] Comment on above: Performed By: #### C BC, BMP ####[address] [address] [facility] WBC (Bld) [#/Vol] 4.1 10*3/uL Normal 3.8-11.6 [facility] Comment on above: Performed By: #### C ROCCO, BMP ####[address] [address] [facility] Glucose Poct Glucometerson 1 12-31-2022 Commemt1 Glu2: Cleaned Meter Normal [facility] Comment on above: Result Comment: PERF ORMED BY:[address] [place], [place] [phone] MEDICAL DIRECTORMELODY WHEELER M.D. Performed By: #### G LULS ####Point of Care testing, Glucose [Mass/Vol] 180 mg/dL Normal [facility] Comment on above: Result Comment: [facility] Glucose Reference Range is dependent on time and content of last meal. Glucose of more than 200 mg/dL in a nonstressed, ambulatory subject supports the diagnosis of Diabetes Mellitus. Performed By: #### G LULS ####Point of Care testing, Commemt1 Glu2: Cleaned Meter Normal [facility] Comment on above: Result Comment: PERF ORMED BY:[place] [address] [address] [place]URENErnieCharuLEV[place], [place] [phone] MEDICAL DIRECTORMELODY WHEELER M.D. Performed By: #### G LULS ####Point of Care testing, Glucose [Mass/Vol] 194 mg/dL Normal [facility] Comment on above: Result Comment: [place] om Glucose Reference Range is dependent on time and content of last meal. Glucose of more than 200 mg/dL in a nonstressed, ambulatory subject supports the diagnosis of Diabetes Mellitus. Performed By: #### G LULS ####Point of Care testing, Commemt1 Glu2: Cleaned Meter Normal [facility] Comment on above: Result Comment: PERF ORMED BY:[place] [address] [address] [place], [place] [phone] MEDICAL DIRECTORMELODY WHEELER M.D. Performed By: #### G LULS ####Point of Care testing, Glucose [Mass/Vol] 139 mg/dL Normal [facility] Comment on above: Result Comment: [place] om Glucose Reference Range is dependent on time and content of last meal. Glucose of more than 200 mg/dL in a nonstressed, ambulatory subject supports the diagnosis of Diabetes Mellitus. Performed By: #### G LULS ####Point of Care testing, Commemt1 Glu2: Cleaned Meter Normal [facility] Comment on above: Result Comment: PERF ORMED BY:[address] [place], [place] [phone] MEDICAL DIRECTORMELODY WHEELER M.D. Performed By: #### G LULS ####Point of Care testing, Glucose [Mass/Vol] 113 mg/dL Normal [facility] Comment on above: Result Comment: [place] om Glucose Reference Range is dependent on time and content of last meal. Glucose of more than 200 mg/dL in a nonstressed, ambulatory subject supports the diagnosis of Diabetes Mellitus. Performed By: #### G LULS ####Point of Care testing, Glucose Poct Glucometerson 1 12-30-2022 Glucose [Mass/Vol] 122 mg/dL Normal [facility] Comment on above: Result Comment: [place] Glucose Reference Range is dependent on time and content of last meal. Glucose of more than 200 mg/dL in a nonstressed, ambulatory subject supports the diagnosis of Diabetes Mellitus.PERFORMED BY:[place] [address] [address] LAURENErnieCharuLEVYMIN[place], [place] [phone] MEDICAL DIRECTORMELODY WHEELER M.D. Performed By: #### G LULS ####Point of Care testing, Glucose [Mass/Vol] 140 mg/dL Normal [facility] Comment on above: Result Comment: [place] Glucose Reference Range is dependent on time and content of last meal. Glucose of more than 200 mg/dL in a nonstressed, ambulatory subject supports the diagnosis of Diabetes Mellitus.PERFORMED BY:[place] [address] [address] [place], [place] [phone] MEDICAL DIRECTORMELODY WHEELER M.D. Performed By: #### G LULS ####Point of Care testing, Commemt1 Glu2: Cleaned Meter Normal [facility] Comment on above: Result Comment: PERF ORMED BY:[address] [place], [place] [phone] MEDICAL DIRECTORMELODY WHEELER M.D. Performed By: #### G LULS ####Point of Care testing, Glucose [Mass/Vol] 170 mg/dL Normal [facility] Comment on above: Result Comment: [place] Glucose Reference Range is dependent on time and content of last meal. Glucose of more than 200 mg/dL in a nonstressed, ambulatory subject supports the diagnosis of Diabetes Mellitus. Performed By: #### G LULS ####Point of Care testing, Commemt1 Glu2: Cleaned Meter Normal [facility] Comment on above: Result Comment: PERF ORMED BY:[address] [place], [place] [phone] MEDICAL DIRECTORMELODY WHEELER M.D. Performed By: #### G LULS ####Point of Care testing, Glucose [Mass/Vol] 87 mg/dL Normal [facility] Comment on above: Result Comment: [place] Glucose Reference Range is dependent on time and content of last meal. Glucose of more than 200 mg/dL in a nonstressed, ambulatory subject supports the diagnosis of Diabetes Mellitus. Performed By: #### G LULS ####Point of Care testing, XR chest 2V*on 10-29-2023 XR chest 2V* Normal [facility] Basic Metabolic Panelon 10-09 Anion gap [Moles/Vol] 7.6 mmol/L Normal 6.0-15.0 [facility] Comment on above: Performed By: #### B MP, DIFF CBC ####[address] [place] [address] [facility] Calcium [Mass/Vol] 7.7 mg/dL Low 8.6-10.3 [facility] Comment on above: Performed By: #### B MP, DIFF CBC ####[address] [place] [address] [place] Chloride [Moles/Vol] 100 mmol/L Normal 98-107 [facility] Comment on above: Performed By: #### B MP, DIFF CBC ####[address] [place] [address] [facility] CO2 [Moles/Vol] 26.7 mmol/L Normal 21.0-31.0 [facility] Comment on above: Performed By: #### B MP, DIFF CBC ####[address] [place] [address] [place] Creatinine [Mass/Vol] 0.58 mg/dL Low 0.60-1.20 [facility] Comment on above: Performed By: #### B MP, DIFF CBC ####[address] [address] [place] Creatinine Clr Calc Pharmacy 47.29 Normal [facility] Comment on above: Result Comment: PERF ORMED BY:[address] [place], [place] [phone] MEDICAL GA WHEELER M.D. Performed By: #### B MP, DIFF CBC ####[place] [address] [place] [address] [place] GFR/1.73 sq M.predicted MDRD (S/P/Bld) [Vol rate/Area] mL/min/{1.73_m2} Normal [facility] Comment on above: Performed By: #### B MP, DIFF CBC ####[place] [id number] [facility] Glucose [Mass/Vol] 154 mg/dL High 70-100 [facility] Comment on above: Result Comment: [place] Glucose Reference Range is dependent on time and content of last meal. Glucose of more than 200 mg/dL in a nonstressed, ambulatory subject supports the diagnosis of Diabetes Mellitus. ADA recommended reference range Performed By: #### B MP, DIFF CBC ####[place] [id number] [facility] Potassium [Moles/Vol] 4.3 mmol/L Normal 3.5-5.1 [facility] Comment on above: Performed By: #### B MP, DIFF CBC ####[address] Sodium [Moles/Vol] 130 mmol/L Low 136-145 [facility] Comment on above: Performed By: #### B MP, DIFF CBC ####[place] [id number] [facility] Urea nitrogen [Mass/Vol] 12 mg/dL Normal 7-25 [facility] Comment on above: Performed By: #### B MP, DIFF CBC ####[place] [id number] [facility] Basophils/100 leukocytes in Blood by Manual countOrdered By: Irma Duran on 10-28-2023 Basophils/100 WBC (Bld) 0 % Normal 0-2 [facility] Comment on above: Performed By: #### B MP, DIFF CBC ####[place] [id number] [facility] Diff and CBCon 10-28-2023 Erythrocyte distribution width (RBC) [Ratio] 15.2 % Normal 11.9-15.3 [facility] Comment on above: Performed By: #### B MP, DIFF CBC ####[place] [id number] [facility] Hematocrit (Bld) [Volume fraction] 31.5 % Low 34.0-46.4 [facility] Comment on above: Performed By: #### B MP, DIFF CBC ####[address] Hemoglobin (Bld) [Mass/Vol] 10.5 g/dL Low 11.8-15.4 [facility] Comment on above: Performed By: #### B MP, DIFF CBC ####[place] [id number] [facility] Hypochromasia Slight Normal [facility] Comment on above: Performed By: #### B MP, DIFF CBC ####[place] [id number] [facility] MCH (RBC) [Entitic mass] 30.5 pg Normal 24.7-34.3 [facility] Comment on above: Performed By: #### B MP, DIFF CBC ####[place] [id number] [facility] MCV (RBC) [Entitic vol] 91.2 fL Normal 80-100 [facility] Comment on above: Performed By: #### B MP, DIFF CBC ####[place] [id number] [facility] Mean Corpuscular HGB Conc 33.5 g/dL Normal 32.0-35.0 [facility] Comment on above: Performed By: #### B MP, DIFF CBC ####[address] Metamyelocytes 4 % High 0-0 [facility] Comment on above: Performed By: #### B MP, DIFF CBC ####[place] [id number] [facility] Myelocytes 1 % High 0-0 [facility] Comment on above: Performed By: #### B MP, DIFF CBC ####[place] [id number] [facility] Platelet Estimate Normal Normal Normal [facility] Comment on above: Performed By: #### B MP, DIFF CBC ####[place] [id number] [facility] Platelet mean volume (Bld) [Entitic vol] 8.4 fL Normal 6.3-10.7 [facility] Comment on above: Result Comment: PERF ORMED BY:[place] [address] [address] [place], [place] [phone] MEDICAL DIRECTORMELODY WHEELER M.D. Performed By: #### B MP, DIFF CBC ####[address] [address] [facility] Platelet Morphology Normal Normal Normal [facility] Comment on above: Result Comment: PERF ORMED BY:[address] [place], [place] [phone] MEDICAL DIRECTORMELODY WHEELER M.D. Performed By: #### B MP, DIFF CBC ####[address] [address] [facility] Platelets (Bld) [#/Vol] 244 10*3/uL Normal 150-450 [facility] Comment on above: Performed By: #### B MP, DIFF CBC ####[address] [address] [facility] RBC (Bld) [#/Vol] 3.45 10*6/uL Low 3.60-5.00 [facility] Comment on above: Performed By: #### B MP, DIFF CBC ####[address] [address] [facility] Rouleaux Slight Normal [facility] Comment on above: Performed By: #### B MP, DIFF CBC ####[address] [address] [facility] WBC (Bld) [#/Vol] 3.4 10*3/uL Low 3.8-11.6 [facility] Comment on above: Performed By: #### B MP, DIFF CBC ####[address] [address] [facility] ECG 12 lead ECGon 10-28-2023 ECG 12 lead ECG Normal [facility] Eosinophils/100 leukocytes i n Blood by Manual countOrdered By: Irma Duran on 10-28-2023 Eosinophils/100 WBC (Bld) 3 % Normal 1-3 [facility] Comment on above: Performed By: #### B MP, DIFF CBC ####[facility] [place] [address] [facility] Glucose Poct Glucometerson 1 12-29-2022 Glucose [Mass/Vol] 157 mg/dL Normal [facility] Comment on above: Result Comment: [facility] Glucose Reference Range is dependent on time and content of last meal. Glucose of more than 200 mg/dL in a nonstressed, ambulatory subject supports the diagnosis of Diabetes Mellitus.PERFORMED BY:[address] [place], [place] [phone] MEDICAL DIRECTORMELODY WHEELER M.D. Performed By: #### G LULS ####Point of Care testing, Glucose [Mass/Vol] 165 mg/dL Normal [facility] Comment on above: Result Comment: [facility] Glucose Reference Range is dependent on time and content of last meal. Glucose of more than 200 mg/dL in a nonstressed, ambulatory subject supports the diagnosis of Diabetes Mellitus.PERFORMED BY:[address] [place], [place] [phone] MEDICAL GA WHEELER M.D. Performed By: #### G LULS ####Point of Care testing, Glucose [Mass/Vol] 238 mg/dL Normal [facility] Comment on above: Result Comment: [facility] Glucose Reference Range is dependent on time and content of last meal. Glucose of more than 200 mg/dL in a nonstressed, ambulatory subject supports the diagnosis of Diabetes Mellitus.PERFORMED BY:[address] [place], [place] [phone] MEDICAL DIRECTORMELODY WHEELER M.D. Performed By: #### G LULS ####Point of Care testing, Glucose [Mass/Vol] 144 mg/dL Normal [facility] Comment on above: Result Comment: [facility] Glucose Reference Range is dependent on time and content of last meal. Glucose of more than 200 mg/dL in a nonstressed, ambulatory subject supports the diagnosis of Diabetes Mellitus.PERFORMED BY:[facility] [place] [address] [place], [place] [phone] MEDICAL DIRECTORMELODY WHEELER M.D. Performed By: #### G LULS ####Point of Care testing, Hypochromia LM Ql (Bld)Order ed By: Irma Duran on 10-28-2023 Hypochromia Ql (Bld) Slight [facility] Lymphocytes/100 leukocytes i n Blood by Manual countOrdered By: Irma Duran on 10-28-2023 Lymphocytes/100 WBC (Bld) 24 % Normal 18-42 [facility] Comment on above: Performed By: #### B MP, DIFF CBC ####[facility] [address] [place] [address] [facility] Manual blood segmented neutr ophils/100 leukocytesOrdered By: Irma Duran on 10-28-2023 Segmented neutrophils/100 WBC (Bld) 56 % Normal 50-70 [facility] Comment on above: Performed By: #### B MP, DIFF CBC ####[facility] [address] [place] [address] [facility] Metamyelocytes/100 WBC Manua l cnt (Bld)Ordered By: Irma Duran on 10-28-2023 Metamyelocytes/100 WBC (Bld) 4 % 0-0 [facility] Monocytes/100 leukocytes in Blood by Manual countOrdered By: Irma Duran on 10-28-2023 Monocytes/100 WBC (Bld) 11 % Normal 2-11 [facility] Comment on above: Performed By: #### B MP, DIFF CBC ####[facility] [address] [place] [address] [facility] Myelocytes/100 WBC Manual cn t (Bld)Ordered By: Irma Duran on 10-28-2023 Myelocytes/100 WBC (Bld) 1 % 0-0 [facility] Peripheral white blood cell differential % bands, microscopic examOrdered By: Irma Duran on 10-28-2023 Band form neutrophils/100 WBC (Bld) 1 % Normal 0-5 [facility] Comment on above: Performed By: #### B MP, DIFF CBC ####[address] [address] [facility] Platelet adequacy [Presence] in Blood by Light microscopyOrdered By: Irma Duran on 10-28-2023 Platelets LM Ql (Bld) Normal Normal [facility] Platelet morphology finding [Identifier] in BloodOrdered By: Irma Duran on 10-28-2023 Platelet morphology finding Nom (Bld) Normal Normal [facility] RBC morphologyOrdered By: Tae radha Renee on 10-28-2023 RBC morphology finding Nom (Bld) N/A [facility] Rouleaux detectionOrdered By : Irma Duran on 10-28-2023 Rouleaux LM Ql (Bld) Slight [facility] COVID CepheidOrdered By: Hosea Alaniz on 10-27-2023 SARS-CoV-2 (COVID-19) Ab IA Ql Positive Negative [facility] Comment on above: This is a duplicate Cepheid Xpert Xpress CoV-2/Flu/RSV Plus RNA by RT-PCR result to be used for statistical tracking purpose only. SARS-CoV-2 (COVID-19) RNA GARY+probe Ql (Unsp spec) Normal [facility] Comment on above: Performed By: #### C OVID19 FLU RSV, CEPHEID POS ####[address] [address] [facility] Cepheid COVID PCR Positiveon 10-27-2023 SARS-CoV-2 (COVID-19) RNA GARY+probe Ql (Unsp spec) Positive Critically abnormal Negative [facility] Comment on above: Result Comment: This is a duplicate Cepheid Xpert Xpress CoV-2/Flu/RSV Plus RNA by RT-PCR result to be used for statistical tracking purpose only.PERFORMED BY:[address] [place], [place] [phone] MEDICAL DIRECTORMELODY WHEELER M.D. Performed By: #### C OVID19 FLU RSV, CEPHEID POS ####[address] [place] [address] [facility] Dipstick and Microscopicon 1 12-28-2022 Appearance (U) Clear Normal Clear [facility] Comment on above: Order Comment: Name Collection Type:: Voided Performed By: #### A DDONUAPLUS, CUU ####[address] [address] [facility] Bacteria,Urine None Seen Normal None Seen [facility] Comment on above: Order Comment: Name Collection Type:: Voided Performed By: #### A DDONUAPLUS, CUU ####[address] [address] [facility] Bilirubin,Urine Negative Normal Negative [facility] Comment on above: Order Comment: Name Collection Type:: Voided Performed By: #### A DDONUAPLUS, CUU ####[address] [address] [facility] Color (U) Yellow Normal Yellow [facility] Comment on above: Order Comment: Name Collection Type:: Voided Performed By: #### A DDONUAPLUS, CUU ####[address] [address] [facility] Glucose Ql (U) Normal Normal Normal [facility] Comment on above: Order Comment: Name Collection Type:: Voided Performed By: #### A DDONUAPLUS, CUU ####[address] [address] [facility] Hyaline Casts,Urine 0-8 Normal 0-8 [facility] Comment on above: Order Comment: Name Collection Type:: Voided Result Comment: PERF ORMED BY:[address] [place], [place] [phone] MEDICAL GA WHEELER M.D. Performed By: #### A DDONUAPLUS, CUU ####[address] [address] [facility] Ketones Ql (U) Negative Normal Negative [facility] Comment on above: Order Comment: Name Collection Type:: Voided Performed By: #### A DDONUAPLUS, CUU ####[address] [place] [address] [facility] Leukocyte esterase Test strip Ql (U) 3+ High Negative [facility] Comment on above: Order Comment: Name Collection Type:: Voided Performed By: #### A DDONUAPLUS, CUU ####[address] [place] [address] [place] Nitrite,Urine Negative Normal Negative [facility] Comment on above: Order Comment: Name Collection Type:: Voided Performed By: #### A DDONUAPLUS, CUU ####[address] [address] [facility] Occult Blood,Urine Negative Normal Negative [facility] Comment on above: Order Comment: Name Collection Type:: Voided Result Comment: PERF ORMED BY:[address] [place], [place] [phone] MEDICAL DIRECTORMELODY WHEELER M.D. Performed By: #### A DDONUAPLUS, CUU ####[address] [address] [facility] pH (U) 6.5 [pH] Normal 5.0-9.0 [facility] Comment on above: Order Comment: Name Collection Type:: Voided Performed By: #### A DDONUAPLUS, CUU ####[address] [address] [facility] Protein,Urine Negative Normal Negative [facility] Comment on above: Order Comment: Name Collection Type:: Voided Performed By: #### A DDONUAPLUS, CUU ####[address] [address] [place] RBC,Urine 3-4 Normal 0-4 [facility] Comment on above: Order Comment: Name Collection Type:: Voided Performed By: #### A DDONUAPLUS, CUU ####[address] [place] [address] [place] Specificy [place],Urine 1.009 Normal 1.00 1-1.03 0 [facility] Comment on above: Order Comment: Name Collection Type:: Voided Performed By: #### A DDONUAPLUS, CUU ####[place] [id number] [facility] Squamous Epithelial Cell,Urine None Seen Normal 0-2 [facility] Comment on above: Order Comment: Name Collection Type:: Voided Performed By: #### A DDONUAPLUS, CUU ####[place] [id number] [facility] Urobilinogen,Urine Normal Normal Normal [facility] Comment on above: Order Comment: Name Collection Type:: Voided Performed By: #### A DDONUAPLUS, CUU ####[address] WBC,Urine 20-49 High 0-4 [facility] Comment on above: Order Comment: Name Collection Type:: Voided Performed By: #### A DDONUAPLUS, CUU ####[place] [id number] [facility] Glucose Poct Glucometerson 1 12-28-2022 Glucose [Mass/Vol] 156 mg/dL Normal [facility] Comment on above: Result Comment: [facility] Glucose Reference Range is dependent on time and content of last meal. Glucose of more than 200 mg/dL in a nonstressed, ambulatory subject supports the diagnosis of Diabetes Mellitus.PERFORMED BY:[address] [place], [place] [phone] MEDICAL GA WHEELER M.D. Performed By: #### G LULS ####Point of Care testing, Glucose [Mass/Vol] 204 mg/dL Normal [facility] Comment on above: Result Comment: [facility] Glucose Reference Range is dependent on time and content of last meal. Glucose of more than 200 mg/dL in a nonstressed, ambulatory subject supports the diagnosis of Diabetes Mellitus.PERFORMED BY:[address] [place], [place] [phone] MEDICAL GA WHEELER M.D. Performed By: #### G LULS ####Point of Care testing, Glucose [Mass/Vol] 163 mg/dL Normal [facility] Comment on above: Result Comment: [place] Glucose Reference Range is dependent on time and content of last meal. Glucose of more than 200 mg/dL in a nonstressed, ambulatory subject supports the diagnosis of Diabetes Mellitus.PERFORMED BY:[address] [place]ErnieCharuLEV[place], [place] [phone] MEDICAL DIRECTORMELODY WHEELER M.D. Performed By: #### G LULS ####Point of Care testing, Urine Cultureon 10-27-2023 Bacteria identified Cx Nom (U) Normal [facility] Comment on above: Performed By: #### A DDONUAPLUS, CUU ####[facility] [place] [address] [facility] Urine culture routineOrdered By: Irma Duran on 10-27-2023 Bacteria identified Cx Nom (U) 2 Days [facility] XR chest 1V portableon 10-27 XR chest 1V portable Normal [facility] Glucose Poct Glucometerson 1 12-27-2022 Glucose [Mass/Vol] 148 mg/dL Normal [facility] Comment on above: Result Comment: [facility] Glucose Reference Range is dependent on time and content of last meal. Glucose of more than 200 mg/dL in a nonstressed, ambulatory subject supports the diagnosis of Diabetes Mellitus.PERFORMED BY:[address] [place], [place] [phone] MEDICAL GA WHEELER M.D. Performed By: #### G LULS ####Point of Care testing, Glucose [Mass/Vol] 175 mg/dL Normal [facility] Comment on above: Result Comment: [facility] Glucose Reference Range is dependent on time and content of last meal. Glucose of more than 200 mg/dL in a nonstressed, ambulatory subject supports the diagnosis of Diabetes Mellitus.PERFORMED BY:[address] [place], [place] [phone] MEDICAL DIRECTORMELODY WHEELER M.D. Performed By: #### G LULS ####Point of Care testing, Glucose [Mass/Vol] 209 mg/dL Normal [facility] Comment on above: Result Comment: [place] Glucose Reference Range is dependent on time and content of last meal. Glucose of more than 200 mg/dL in a nonstressed, ambulatory subject supports the diagnosis of Diabetes Mellitus.PERFORMED BY:[place] [address] [place] [place], [place] [phone] MEDICAL GA WHEELER M.D. Performed By: #### G LULS ####Point of Care testing, Glucose [Mass/Vol] 132 mg/dL Normal [facility] Comment on above: Result Comment: [place] om Glucose Reference Range is dependent on time and content of last meal. Glucose of more than 200 mg/dL in a nonstressed, ambulatory subject supports the diagnosis of Diabetes Mellitus.PERFORMED BY:[place] [address] [address] [place], [place] [phone] MEDICAL GA WHEELER M.D. Performed By: #### G LULS ####Point of Care testing, XR hip RT min 2V(w/wo pelvis )*on 10-26-2023 XR hip RT min 2V(w/wo pelvis)* Normal [facility] Glucose Poct Glucometerson 1 12-26-2022 Commemt1 Glu2: Cleaned Meter Normal [facility] Comment on above: Performed By: #### G LULS ####Point of Care testing, Commemt2 WILL NOTIFY DR/RN Normal [facility] Comment on above: Result Comment: PERF ORMED BY:[address] [address] [address] [place], [place] [phone] MEDICAL GA WHEELER M.D. Performed By: #### G LULS ####Point of Care testing, Glucose [Mass/Vol] 268 mg/dL Normal [facility] Comment on above: Result Comment: [place] Glucose Reference Range is dependent on time and content of last meal. Glucose of more than 200 mg/dL in a nonstressed, ambulatory subject supports the diagnosis of Diabetes Mellitus. Performed By: #### G LULS ####Point of Care testing, Commemt1 Glu2: Cleaned Meter Normal [facility] Comment on above: Result Comment: PERF ORMED BY:[address] [address] [address] [place], [place] [phone] MEDICAL DIRECTORMELODY WHEELER M.D. Performed By: #### G LULS ####Point of Care testing, Glucose [Mass/Vol] 198 mg/dL Normal [facility] Comment on above: Result Comment: [place] Glucose Reference Range is dependent on time and content of last meal. Glucose of more than 200 mg/dL in a nonstressed, ambulatory subject supports the diagnosis of Diabetes Mellitus. Performed By: #### G LULS ####Point of Care testing, Commemt1 Glu2: Cleaned Meter Normal [facility] Comment on above: Result Comment: PERF ORMED BY:[address] [place], [place] [phone] MEDICAL DIRECTORMELODY WHEELER M.D. Performed By: #### G LULS ####Point of Care testing, Glucose [Mass/Vol] 239 mg/dL Normal [facility] Comment on above: Result Comment: [place] Glucose Reference Range is dependent on time and content of last meal. Glucose of more than 200 mg/dL in a nonstressed, ambulatory subject supports the diagnosis of Diabetes Mellitus. Performed By: #### G LULS ####Point of Care testing, Commemt1 Glu2: Cleaned Meter Normal [facility] Comment on above: Result Comment: PERF ORMED BY:[address] [place], [place] [phone] MEDICAL DIRECTORMELODY WHEELER M.D. Performed By: #### G LULS ####Point of Care testing, Glucose [Mass/Vol] 144 mg/dL Normal [facility] Comment on above: Result Comment: [place] Glucose Reference Range is dependent on time and content of last meal. Glucose of more than 200 mg/dL in a nonstressed, ambulatory subject supports the diagnosis of Diabetes Mellitus. Performed By: #### G LULS ####Point of Care testing, No Panel InformationOrdered By: Anthony Alaniz on 10-25-2023 Bedside Glucose #[address]/rn [facility] Glucose Poct Glucometerson 1 12-25-2022 Glucose [Mass/Vol] 153 mg/dL Normal [facility] Comment on above: Result Comment: [facility] Glucose Reference Range is dependent on time and content of last meal. Glucose of more than 200 mg/dL in a nonstressed, ambulatory subject supports the diagnosis of Diabetes Mellitus.PERFORMED BY:[address] [place], [place] [phone] MEDICAL DIRECTORMELODY WHEELER M.D. Performed By: #### G LULS ####Point of Care testing, Glucose [Mass/Vol] 254 mg/dL Normal [facility] Comment on above: Result Comment: [facility] Glucose Reference Range is dependent on time and content of last meal. Glucose of more than 200 mg/dL in a nonstressed, ambulatory subject supports the diagnosis of Diabetes Mellitus.PERFORMED BY:[address] [place] [address] [address] [place], [place] [phone] MEDICAL GA WHEELER M.D. Performed By: #### G LULS ####Point of Care testing, Glucose [Mass/Vol] 347 mg/dL Normal [facility] Comment on above: Result Comment: [facility] Glucose Reference Range is dependent on time and content of last meal. Glucose of more than 200 mg/dL in a nonstressed, ambulatory subject supports the diagnosis of Diabetes Mellitus.PERFORMED BY:[address] [place], [place] [phone] MEDICAL GA WHEELER M.D. Performed By: #### G LULS ####Point of Care testing, Glucose [Mass/Vol] 195 mg/dL Normal [facility] Comment on above: Result Comment: [facility] Glucose Reference Range is dependent on time and content of last meal. Glucose of more than 200 mg/dL in a nonstressed, ambulatory subject supports the diagnosis of Diabetes Mellitus.PERFORMED BY:[address] [place], [place] [phone] MEDICAL GA WHEELER M.D. Performed By: #### G LULS ####Point of Care testing, Glucose Poct Glucometerson 1 12-24-2022 Glucose [Mass/Vol] 180 mg/dL Normal [facility] Comment on above: Result Comment: [place] Glucose Reference Range is dependent on time and content of last meal. Glucose of more than 200 mg/dL in a nonstressed, ambulatory subject supports the diagnosis of Diabetes Mellitus.PERFORMED BY:[address] [place], [place] [phone] MEDICAL DIRECTORMELODY WHEELER M.D. Performed By: #### G LULS ####Point of Care testing, Glucose [Mass/Vol] 291 mg/dL Normal [facility] Comment on above: Result Comment: [facility] Glucose Reference Range is dependent on time and content of last meal. Glucose of more than 200 mg/dL in a nonstressed, ambulatory subject supports the diagnosis of Diabetes Mellitus.PERFORMED BY:[address] [place], [place] [phone] MEDICAL DIRECTORMELODY WHEELER M.D. Performed By: #### G LULS ####Point of Care testing, Glucose [Mass/Vol] 357 mg/dL Normal [facility] Comment on above: Result Comment: [facility] Glucose Reference Range is dependent on time and content of last meal. Glucose of more than 200 mg/dL in a nonstressed, ambulatory subject supports the diagnosis of Diabetes Mellitus.PERFORMED BY:[address] [place], [place] [phone] MEDICAL DIRECTORMELODY WHEELER M.D. Performed By: #### G LULS ####Point of Care testing, Glucose [Mass/Vol] 146 mg/dL Normal [facility] Comment on above: Result Comment: [facility] Glucose Reference Range is dependent on time and content of last meal. Glucose of more than 200 mg/dL in a nonstressed, ambulatory subject supports the diagnosis of Diabetes Mellitus.PERFORMED BY:[address] [place], [place] [phone] MEDICAL DIRECTORMELODY WHEELER M.D. Performed By: #### G OTONIEL ####Point of Care testing, Anisocytosis [Presence] in B lood by Light microscopyOrdered By: Irma Duran on 10-22-2023 Anisocytosis Ql (Bld) Slight Normal [facility] Comment on above: Performed By: #### B MP, DIFF CBC ####[address] [address] [facility] Basic Metabolic Panelon 10-08 Anion gap [Moles/Vol] 8.7 mmol/L Normal 6.0-15.0 [facility] Comment on above: Performed By: #### B MP, DIFF CBC ####[address] [address] [facility] Calcium [Mass/Vol] 8.8 mg/dL Normal 8.6-10.3 [facility] Comment on above: Performed By: #### B MP, DIFF CBC ####[address] [address] [facility] Chloride [Moles/Vol] 100 mmol/L Normal 98-107 [facility] Comment on above: Performed By: #### B MP, DIFF CBC ####[address] [address] [facility] CO2 [Moles/Vol] 29.7 mmol/L Normal 21.0-31.0 [facility] Comment on above: Performed By: #### B MP, DIFF CBC ####[address] [address] [facility] Creatinine [Mass/Vol] 0.82 mg/dL Normal 0.60-1.20 [facility] Comment on above: Performed By: #### B MP, DIFF CBC ####[address] [address] [facility] Creatinine Clr Calc Pharmacy 45.46 Normal [facility] Comment on above: Result Comment: PERF ORMED BY:[address] [place] [place], [place] [phone] MEDICAL DIRECTORMELODY WHEELER M.D. Performed By: #### B MP, DIFF CBC ####[address] [place] [address] [facility] GFR/1.73 sq M.predicted MDRD (S/P/Bld) [Vol rate/Area] mL/min/{1.73_m2} Normal [facility] Comment on above: Performed By: #### B MP, DIFF CBC ####[address] [place] [id number] [facility] Glucose [Mass/Vol] 218 mg/dL High 70-100 [facility] Comment on above: Result Comment: [place] Glucose Reference Range is dependent on time and content of last meal. Glucose of more than 200 mg/dL in a nonstressed, ambulatory subject supports the diagnosis of Diabetes Mellitus. ADA recommended reference range Performed By: #### B MP, DIFF CBC ####[place] [id number] [facility] Potassium [Moles/Vol] 4.4 mmol/L Normal 3.5-5.1 [facility] Comment on above: Performed By: #### B MP, DIFF CBC ####[place] [id number] [facility] Sodium [Moles/Vol] 134 mmol/L Low 136-145 [facility] Comment on above: Performed By: #### B MP, DIFF CBC ####[address] [place] [address] [facility] Urea nitrogen [Mass/Vol] 15 mg/dL Normal 7-25 [facility] Comment on above: Performed By: #### B MP, DIFF CBC ####[address] [address] [place] Donald cells [Presence] in Blo od by Light microscopyOrdered By: Irma Duran on 10-22-2023 [place] cells LM Ql (Bld) Slight Fi [facility] Diff and CBCon 10-22-2023 Crenated RBC Slight Normal [facility] Comment on above: Performed By: #### B MP, DIFF CBC ####[address] Eosinophils/100 WBC (Bld) 3 % Normal 1-3 [facility] Comment on above: Performed By: #### B MP, DIFF CBC ####[address] Erythrocyte distribution width (RBC) [Ratio] 14.2 % Normal 11.9-15.3 [facility] Comment on above: Performed By: #### B MP, DIFF CBC ####[address] Giant Platelet Tally 1 /100{WBC} Normal [facility] Comment on above: Result Comment: PERF ORMED BY:[address] [place], [place] [phone] MEDICAL DIRECTORMELODY WHEELER M.D. Performed By: #### B MP, DIFF CBC ####[address] Hematocrit (Bld) [Volume fraction] 32.6 % Low 34.0-46.4 [facility] Comment on above: Performed By: #### B MP, DIFF CBC ####[address] Hemoglobin (Bld) [Mass/Vol] 10.9 g/dL Low 11.8-15.4 [facility] Comment on above: Performed By: #### B MP, DIFF CBC ####[place] [id number] [facility] Lymphocytes/100 WBC (Bld) 30 % Normal 18-42 [facility] Comment on above: Performed By: #### B MP, DIFF CBC ####[address] Macrocytosis Slight Normal [facility] Comment on above: Performed By: #### B MP, DIFF CBC ####[address] MCH (RBC) [Entitic mass] 30.4 pg Normal 24.7-34.3 [facility] Comment on above: Performed By: #### B MP, DIFF CBC ####[address] MCV (RBC) [Entitic vol] 90.6 fL Normal 80-100 T [facility] Comment on above: Performed By: #### B MP, DIFF CBC ####[address] Mean Corpuscular HGB Conc 33.6 g/dL Normal 32.0-35.0 [facility] Comment on above: Performed By: #### B MP, DIFF CBC ####[address] Metamyelocytes 2 % High 0-0 [facility] Comment on above: Performed By: #### B MP, DIFF CBC ####[address] Microcytosis Slight Normal [facility] Comment on above: Performed By: #### B MP, DIFF CBC ####[address] Monocytes/100 WBC (Bld) 7 % Normal 2-11 T [facility] Comment on above: Performed By: #### B MP, DIFF CBC ####[address] Myelocytes 5 % High 0-0 [facility] Comment on above: Performed By: #### B MP, DIFF CBC ####[address] Ovalocytes Slight Normal [facility] Comment on above: Performed By: #### B MP, DIFF CBC ####[address] Platelet Estimate Normal Normal Normal [facility] Comment on above: Performed By: #### B MP, DIFF CBC ####[address] [address] [facility] Platelet mean volume (Bld) [Entitic vol] 8.0 fL Normal 6.3-10.7 [facility] Comment on above: Result Comment: PERF ORMED BY:[address] [place], [place] [phone] MEDICAL DIRECTORMELODY WHEELER M.D. Performed By: #### B MP, DIFF CBC ####[place] [id number] [facility] Platelets (Bld) [#/Vol] 335 10*3/uL Normal 150-450 [facility] Comment on above: Performed By: #### B MP, DIFF CBC ####[place] [id number] [facility] Poikilocytosis Slight Normal [facility] Comment on above: Performed By: #### B MP, DIFF CBC ####[place] [id number] [facility] Polychromasia Slight Normal [facility] Comment on above: Performed By: #### B MP, DIFF CBC ####[id number] [facility] RBC (Bld) [#/Vol] 3.60 10*6/uL Normal 3.60-5.00 [facility] Comment on above: Performed By: #### B MP, DIFF CBC ####[place] [id number] [facility] Segmented neutrophils/100 WBC (Bld) 54 % Normal 50-70 [facility] Comment on above: Performed By: #### B MP, DIFF CBC ####[place] [id number] [facility] Stomatocytes Slight Normal [facility] Comment on above: Performed By: #### B MP, DIFF CBC ####[place] [id number] [facility] WBC (Bld) [#/Vol] 9.1 10*3/uL Normal 3.8-11.6 [facility] Comment on above: Performed By: #### B MP, DIFF CBC ####[address] [place] [place] [address] [facility] Giant platelets/100 leukocyt es [Ratio] in Blood by Manual countOrdered By: Irma Duran on 10-22-2023 Giant platelets/100 WBC Manual cnt (Bld) [Ratio] 1 /100{WBC} [facility] Glucose Poct Glucometerson 1 12-23-2022 Glucose [Mass/Vol] 254 mg/dL Normal [facility] Comment on above: Result Comment: [place] Glucose Reference Range is dependent on time and content of last meal. Glucose of more than 200 mg/dL in a nonstressed, ambulatory subject supports the diagnosis of Diabetes Mellitus.PERFORMED BY:[address] [place], [place] [phone] MEDICAL DIRECTORMELODY WHEELER M.D. Performed By: #### G LULS ####Point of Care testing, Glucose [Mass/Vol] 238 mg/dL Normal [facility] Comment on above: Result Comment: [place] Glucose Reference Range is dependent on time and content of last meal. Glucose of more than 200 mg/dL in a nonstressed, ambulatory subject supports the diagnosis of Diabetes Mellitus.PERFORMED BY:[address] [place], [place] [phone] MEDICAL DIRECTORMELODY WHEELER M.D. Performed By: #### G LULS ####Point of Care testing, Commemt1 Glu2: Cleaned Meter Normal [facility] Comment on above: Result Comment: PERF ORMED BY:[place] [address] [place], [place] [phone] MEDICAL DIRECTORMELODY WHEELER M.D. Performed By: #### G LULS ####Point of Care testing, Glucose [Mass/Vol] 202 mg/dL Normal [facility] Comment on above: Result Comment: [place] Glucose Reference Range is dependent on time and content of last meal. Glucose of more than 200 mg/dL in a nonstressed, ambulatory subject supports the diagnosis of Diabetes Mellitus. Performed By: #### G LULS ####Point of Care testing, Commemt1 Glu2: Cleaned Meter Normal [facility] Comment on above: Result Comment: PERF ORMED BY:[facility] [place], [place] [phone] MEDICAL DIRECTORMELODY WHEELER M.D. Performed By: #### G LULS ####Point of Care testing, Glucose [Mass/Vol] 261 mg/dL Normal [facility] Comment on above: Result Comment: [place] Glucose Reference Range is dependent on time and content of last meal. Glucose of more than 200 mg/dL in a nonstressed, ambulatory subject supports the diagnosis of Diabetes Mellitus. Performed By: #### G LULS ####Point of Care testing, Macrocytes LM Ql (Bld)Ordere d By: Irma Duran on 10-22-2023 Macrocytes Ql (Bld) [facility] Microcytes LM Ql (Bld)Ordere d By: Irma Duran on 10-22-2023 Microcytes Ql (Bld) [facility] Ovalocyte detectionOrdered B y: Irma Duran on 10-22-2023 Ovalocytes LM Ql (Bld) [facility] Poikilocytosis [Presence] in Blood by Light microscopyOrdered By: Irma Duran on 10-22-2023 Poikilocytosis LM Ql (Bld) [facility] Polychromasia [Presence] in Blood by Light microscopyOrdered By: Irma Duran on 10-22-2023 Polychromasia LM Ql (Bld) [facility] Red blood cell stomatocyte d etectionOrdered By: Irma Duran on 10-22-2023 Stomatocytes LM Ql (Bld) [facility] US venous duplex LE BIon US venous duplex LE BI Normal Th [facility] Glucose Poct Glucometerson 1 12-22-2022 Glucose [Mass/Vol] 223 mg/dL Normal [facility] Comment on above: Result Comment: [place] Glucose Reference Range is dependent on time and content of last meal. Glucose of more than 200 mg/dL in a nonstressed, ambulatory subject supports the diagnosis of Diabetes Mellitus.PERFORMED BY:[address] [place], [place] [phone] MEDICAL DIRECTORMELODY WHEELER M.D. Performed By: #### G LULS ####Point of Care testing, Glucose [Mass/Vol] 218 mg/dL Normal [facility] Comment on above: Result Comment: [place] Glucose Reference Range is dependent on time and content of last meal. Glucose of more than 200 mg/dL in a nonstressed, ambulatory subject supports the diagnosis of Diabetes Mellitus.PERFORMED BY:[address] [place]nie[place], [place] [phone] MEDICAL GA WHEELER M.D. Performed By: #### G LULS ####Point of Care testing, Glucose [Mass/Vol] 329 mg/dL Normal [facility] Comment on above: Result Comment: [place] Glucose Reference Range is dependent on time and content of last meal. Glucose of more than 200 mg/dL in a nonstressed, ambulatory subject supports the diagnosis of Diabetes Mellitus.PERFORMED BY:[address] [place], [place] [phone] MEDICAL GA WHEELER M.D. Performed By: #### G LULS ####Point of Care testing, Glucose [Mass/Vol] 251 mg/dL Normal [facility] Comment on above: Result Comment: [place] Glucose Reference Range is dependent on time and content of last meal. Glucose of more than 200 mg/dL in a nonstressed, ambulatory subject supports the diagnosis of Diabetes Mellitus.PERFORMED BY:[address] [place], [place] [phone] MEDICAL GA WHEELER M.D. Performed By: #### G LULS ####Point of Care testing, ECG 12 lead ECGon 12-13-2023 ECG 12 lead ECG Normal [facility] Glucose Poct Glucometerson 1 12-21-2022 Glucose [Mass/Vol] 270 mg/dL Normal [facility] Comment on above: Result Comment: [place] Glucose Reference Range is dependent on time and content of last meal. Glucose of more than 200 mg/dL in a nonstressed, ambulatory subject supports the diagnosis of Diabetes Mellitus.PERFORMED BY:[address] [place], [place] [phone] MEDICAL DIRECTORMELODY WHEELER M.D. Performed By: #### G LULS ####Point of Care testing, Glucose [Mass/Vol] 282 mg/dL Normal [facility] Comment on above: Result Comment: [facility] Glucose Reference Range is dependent on time and content of last meal. Glucose of more than 200 mg/dL in a nonstressed, ambulatory subject supports the diagnosis of Diabetes Mellitus.PERFORMED BY:[address] [place], [place] [phone] MEDICAL DIRECTORMELODY WHEELER M.D. Performed By: #### G LULS ####Point of Care testing, Glucose [Mass/Vol] 350 mg/dL Normal [facility] Comment on above: Result Comment: [facility] Glucose Reference Range is dependent on time and content of last meal. Glucose of more than 200 mg/dL in a nonstressed, ambulatory subject supports the diagnosis of Diabetes Mellitus.PERFORMED BY:[address] [place], [place] [phone] MEDICAL DIRECTORMELODY WHEELER M.D. Performed By: #### G LULS ####Point of Care testing, Commemt1 Glu2: Cleaned Meter Normal [facility] Comment on above: Result Comment: PERF ORMED BY:[address] [place], [place] [phone] MEDICAL GA WHEELER M.D. Performed By: #### G LULS ####Point of Care testing, Glucose [Mass/Vol] 260 mg/dL Normal [facility] Comment on above: Result Comment: [place] Glucose Reference Range is dependent on time and content of last meal. Glucose of more than 200 mg/dL in a nonstressed, ambulatory subject supports the diagnosis of Diabetes Mellitus. Performed By: #### G LULS ####Point of Care testing, Glucose Poct Glucometerson 1 12-20-2022 Glucose [Mass/Vol] 261 mg/dL Normal [facility] Comment on above: Result Comment: [place] Glucose Reference Range is dependent on time and content of last meal. Glucose of more than 200 mg/dL in a nonstressed, ambulatory subject supports the diagnosis of Diabetes Mellitus.PERFORMED BY:[address] [place], [place] [phone] MEDICAL DIRECTORMELODY WHEELER M.D. Performed By: #### G LULS ####Point of Care testing, Glucose [Mass/Vol] 246 mg/dL Normal [facility] Comment on above: Result Comment: [place] Glucose Reference Range is dependent on time and content of last meal. Glucose of more than 200 mg/dL in a nonstressed, ambulatory subject supports the diagnosis of Diabetes Mellitus.PERFORMED BY:[place] [address] [address] [place], [place] [phone] MEDICAL DIRECTORMELODY WHEELER M.D. Performed By: #### G LULS ####Point of Care testing, Commemt1 Glu2: Cleaned Meter Normal [facility] Comment on above: Result Comment: PERF ORMED BY:[place] [address] [address] [place], [place] [phone] MEDICAL DIRECTORMELODY WHEELER M.D. Performed By: #### G LULS ####Point of Care testing, Glucose [Mass/Vol] 251 mg/dL Normal [facility] Comment on above: Result Comment: [place] om Glucose Reference Range is dependent on time and content of last meal. Glucose of more than 200 mg/dL in a nonstressed, ambulatory subject supports the diagnosis of Diabetes Mellitus. Performed By: #### G LULS ####Point of Care testing, Commemt1 Glu2: Cleaned Meter Normal [facility] Comment on above: Result Comment: PERF ORMED BY:[place] [address] [address] SCHWARTZCharuLEVYMIN[place], [place] [phone] MEDICAL DIRECTORMELODY WHEELER M.D. Performed By: #### G LULS ####Point of Care testing, Glucose [Mass/Vol] 251 mg/dL Normal [facility] Comment on above: Result Comment: [place] om Glucose Reference Range is dependent on time and content of last meal. Glucose of more than 200 mg/dL in a nonstressed, ambulatory subject supports the diagnosis of Diabetes Mellitus. Performed By: #### G LULS ####Point of Care testing, Glucose Poct Glucometerson 1 12-19-2022 Glucose [Mass/Vol] 352 mg/dL Normal [facility] Comment on above: Result Comment: [place] Glucose Reference Range is dependent on time and content of last meal. Glucose of more than 200 mg/dL in a nonstressed, ambulatory subject supports the diagnosis of Diabetes Mellitus.PERFORMED BY:[place] [address] [address] SCHWARTZCharuLEVYMIN[place]IS, [place] [phone] MEDICAL DIRECTORMELODY WHEELER M.D. Performed By: #### G LULS ####Point of Care testing, Commemt1 Glu2: Cleaned Meter Normal [facility] Comment on above: Result Comment: PERF ORMED BY:[place] [address] [address] SCHWARTZCharuLEVYMIN[place], [place] [phone] MEDICAL GA WHEELER M.D. Performed By: #### G LULS ####Point of Care testing, Glucose [Mass/Vol] 294 mg/dL Normal [facility] Comment on above: Result Comment: [place] Glucose Reference Range is dependent on time and content of last meal. Glucose of more than 200 mg/dL in a nonstressed, ambulatory subject supports the diagnosis of Diabetes Mellitus. Performed By: #### G LULS ####Point of Care testing, Commemt1 Glu2: Cleaned Meter Normal [facility] Comment on above: Result Comment: PERF ORMED BY:[place] [address] [address] SCHW[place]ZCharuLEVYMIN[place], [place] [phone] MEDICAL DIRECTORMELODY WHEELER M.D. Performed By: #### G LULS ####Point of Care testing, Glucose [Mass/Vol] 288 mg/dL Normal [facility] Comment on above: Result Comment: [place] Glucose Reference Range is dependent on time and content of last meal. Glucose of more than 200 mg/dL in a nonstressed, ambulatory subject supports the diagnosis of Diabetes Mellitus. Performed By: #### G LULS ####Point of Care testing, Commemt1 Glu2: Cleaned Meter Normal [facility] Comment on above: Result Comment: PERF ORMED BY:[place] [address] [address] SCHWARTZCharuLEVYMIN[place], [place] [phone] MEDICAL DIRECTORMELODY WHEELER M.D. Performed By: #### G LULS ####Point of Care testing, Glucose [Mass/Vol] 266 mg/dL Normal [facility] Comment on above: Result Comment: [place] Glucose Reference Range is dependent on time and content of last meal. Glucose of more than 200 mg/dL in a nonstressed, ambulatory subject supports the diagnosis of Diabetes Mellitus. Performed By: #### G LULS ####Point of Care testing, XR elbow LT min 3V*on 2022 XR elbow LT min 3V* Normal [facility] Glucose Poct Glucometerson 1 12-18-2022 Glucose [Mass/Vol] 352 mg/dL Normal [facility] Comment on above: Result Comment: [place] Glucose Reference Range is dependent on time and content of last meal. Glucose of more than 200 mg/dL in a nonstressed, ambulatory subject supports the diagnosis of Diabetes Mellitus.PERFORMED BY:[place] [address] [address] [place], [place] [phone] MEDICAL GA WHEELER M.D. Performed By: #### G LULS ####Point of Care testing, Glucose [Mass/Vol] 313 mg/dL Normal [facility] Comment on above: Result Comment: [place] Glucose Reference Range is dependent on time and content of last meal. Glucose of more than 200 mg/dL in a nonstressed, ambulatory subject supports the diagnosis of Diabetes Mellitus.PERFORMED BY:[place] [address] [address] [place], [place] [phone] MEDICAL DIRECTORMELODY WHEELER M.D. Performed By: #### G LULS ####Point of Care testing, Commemt1 Glu2: Cleaned Meter Normal [facility] Comment on above: Result Comment: PERF ORMED BY:[address] [place], [place] [phone] MEDICAL DIRECTORMELODY WHEELER M.D. Performed By: #### G LULS ####Point of Care testing, Glucose [Mass/Vol] 335 mg/dL Normal [facility] Comment on above: Result Comment: [place] Glucose Reference Range is dependent on time and content of last meal. Glucose of more than 200 mg/dL in a nonstressed, ambulatory subject supports the diagnosis of Diabetes Mellitus. Performed By: #### G LULS ####Point of Care testing, Glucose [Mass/Vol] 228 mg/dL Normal [facility] Comment on above: Result Comment: [place] Glucose Reference Range is dependent on time and content of last meal. Glucose of more than 200 mg/dL in a nonstressed, ambulatory subject supports the diagnosis of Diabetes Mellitus.PERFORMED BY:[place] [address] [address] SCHWARTZCharuLEVYMIN[place], [place] [phone] MEDICAL DIRECTORMELODY WHEELER M.D. Performed By: #### G LULS ####Point of Care testing, Alanine aminotransferase [En zymatic activity/volume] in Serum or PlasmaOrdered By: Anthony Alaniz on 10-16-2023 ALT [Catalytic activity/Vol] 6 U/L Low [facility] Comment on above: Performed By: #### C BC, CMP, PAB ####[facility] [address] [place] [address] [place] Albumin [Mass/volume] in Ser um or Plasma by Bromocresol green (BCG) dye binding methoOrdered By: Anthony Alaniz on 10-16-2023 Albumin BCG dye [Mass/Vol] 2.6 g/dL 3.5-5.7 [facility] Alkaline phosphatase [Enzyma tic activity/volume] in Serum or PlasmaOrdered By: Anthony Alaniz on 10-16-2023 ALP [Catalytic activity/Vol] 50 U/L Normal 34-104 [facility] Comment on above: Performed By: #### C ETHEL VALIENTE, PAB ####[address] Aspartate aminotransferase [ Enzymatic activity/volume] in Serum or PlasmaOrdered By: Anthony Pichardoey on 10-16-2023 AST [Catalytic activity/Vol] 12 U/L Low 13-39 [facility] Comment on above: Performed By: #### C TEHEL VALIENTE, PAB ####[address] Bilirubin.total [Mass/volume ] in Serum or PlasmaOrdered By: Anthony Corbin on 10-16-2023 Bilirubin [Mass/Vol] 0.7 mg/dL Normal 0.3-1.0 [facility] Comment on above: Performed By: #### C ETHEL VALIENTE, PAB ####[address] Complete Blood Count Auto Di ffon 10-16-2023 Basophils (Bld) [#/Vol] 0.1 10*3/uL Normal 0.0-0.2 [facility] Comment on above: Result Comment: PERF ORMED BY:[address] [place], [place] [phone] MEDICAL DIRECTORMELODY WHEELER M.D. Performed By: #### C BC CMP, PAB ####[address] Basophils/100 WBC (Bld) 0.8 % Normal . [facility] Comment on above: Performed By: #### C BC CMP, PAB ####[address] Eosinophils (Bld) [#/Vol] 0.1 10*3/uL Normal 0.0-0.45 [facility] Comment on above: Performed By: #### C BC, CMP, PAB ####[address] Eosinophils/100 WBC (Bld) 1.6 % Normal . [facility] Comment on above: Performed By: #### C BC, CMP, PAB ####[address] Erythrocyte distribution width (RBC) [Ratio] 13.9 % Normal 11.9-15.3 [facility] Comment on above: Performed By: #### C BC, CMP, PAB ####[address] Hematocrit (Bld) [Volume fraction] 31.4 % Low 34.0-46.4 [facility] Comment on above: Performed By: #### C BC, CMP, PAB ####[address] Hemoglobin (Bld) [Mass/Vol] 10.6 g/dL Low 11.8-15.4 [facility] Comment on above: Performed By: #### C BC CMP, PAB ####[address] Lymphocytes (Bld) [#/Vol] 1.5 10*3/uL Normal 1.00-4.8 [facility] Comment on above: Performed By: #### C BC, CMP, PAB ####[address] Lymphocytes/100 WBC (Bld) 18.4 % Normal . [facility] Comment on above: Performed By: #### C BC, CMP, PAB ####[address] MCH (RBC) [Entitic mass] 30.5 pg Normal 24.7-34.3 [facility] Comment on above: Performed By: #### C BC, CMP, PAB ####[id number] [facility] MCV (RBC) [Entitic vol] 90.3 fL Normal 80-100 [facility] Comment on above: Performed By: #### C BC, CMP, PAB ####[place] [id number] [facility] Mean Corpuscular HGB Conc 33.7 g/dL Normal 32.0-35.0 [facility] Comment on above: Performed By: #### C BC, CMP, PAB ####[place] [id number] [facility] Monocytes (Bld) [#/Vol] 1.4 10*3/uL High 0.0-0.8 [facility] Comment on above: Performed By: #### C BC, CMP, PAB ####[address] Monocytes/100 WBC (Bld) 17.1 % Normal . [facility] Comment on above: Performed By: #### C BC, CMP, PAB ####[address] Neutrophils (Bld) [#/Vol] 5.2 10*3/uL Normal 1.8-7.7 [facility] Comment on above: Performed By: #### C BC, CMP, PAB ####[place] [id number] [facility] Neutrophils/100 WBC (Bld) 62.1 % Normal . [facility] Comment on above: Performed By: #### C BC, CMP, PAB ####[place] [id number] [facility] NRBC% 0.1 /100{WBC} Normal 0-0.5 [facility] Comment on above: Performed By: #### C BC, CMP, PAB ####[place] [id number] [facility] Platelet mean volume (Bld) [Entitic vol] 9.0 fL Normal 6.3-10.7 [facility] Comment on above: Performed By: #### C BC, CMP, PAB ####[place] [id number] [facility] Platelets (Bld) [#/Vol] 247 10*3/uL Normal 150-450 [facility] Comment on above: Performed By: #### C BC, CMP, PAB ####[place] [id number] [facility] RBC (Bld) [#/Vol] 3.47 10*6/uL Low 3.60-5.00 [facility] Comment on above: Performed By: #### C BC, CMP, PAB ####[address] WBC (Bld) [#/Vol] 8.4 10*3/uL Normal 3.8-11.6 [facility] Comment on above: Performed By: #### C BC, CMP, PAB ####[address] Comprehensive Metabolic Pane perez 10-16-2023 Albumin [Mass/Vol] 2.6 g/dL Low 3.5-5.7 [facility] Comment on above: Performed By: #### C BC, CMP, PAB ####[address] Anion gap [Moles/Vol] 9.7 mmol/L Normal 6.0-15.0 [facility] Comment on above: Performed By: #### C BC, CMP, PAB ####[address] Calcium [Mass/Vol] 8.4 mg/dL Low 8.6-10.3 [facility] Comment on above: Performed By: #### C BC, CMP, PAB ####[address] Chloride [Moles/Vol] 100 mmol/L Normal 98-107 [facility] Comment on above: Performed By: #### C BC, CMP, PAB ####[address] CO2 [Moles/Vol] 29.9 mmol/L Normal 21.0-31.0 [facility] Comment on above: Performed By: #### C ETHEL VALIENTE, PAB ####[place] [id number] [facility] Creatinine [Mass/Vol] 0.57 mg/dL Low 0.60-1.20 [facility] Comment on above: Performed By: #### C ETHEL VALIENTE, PAB ####[place] [address] [place] Creatinine Clr Calc Pharmacy 46.33 Normal [facility] Comment on above: Performed By: #### C ETHEL VALIENTE, PAB ####[address] GFR/1.73 sq M.predicted MDRD (S/P/Bld) [Vol rate/Area] mL/min/{1.73_m2} Normal [facility] Comment on above: Performed By: #### C ETHEL VALIENTE, PAB ####[address] Glucose [Mass/Vol] 217 mg/dL High 70-100 [facility] Comment on above: Result Comment: [place] Glucose Reference Range is dependent on time and content of last meal. Glucose of more than 200 mg/dL in a nonstressed, ambulatory subject supports the diagnosis of Diabetes Mellitus. ADA recommended reference range Performed By: #### C ETHEL VALIENTE, PAB ####[address] Potassium [Moles/Vol] 4.6 mmol/L Normal 3.5-5.1 [facility] Comment on above: Performed By: #### C ETHEL VALIENTE, PAB ####[address] Sodium [Moles/Vol] 135 mmol/L Low 136-145 [facility] Comment on above: Performed By: #### C ETHEL VALIENTE, PAB ####[place] [id number] [facility] Urea nitrogen [Mass/Vol] 12 mg/dL Normal 7-25 [facility] Comment on above: Performed By: #### C BC, CMP, PAB ####[facility] [place] [address] [facility] ECG 12 lead ECGon 10-16-2023 ECG 12 lead ECG Normal [facility] Glucose Poct Glucometerson 1 12-17-2022 Glucose [Mass/Vol] 252 mg/dL Normal [facility] Comment on above: Result Comment: [facility] Glucose Reference Range is dependent on time and content of last meal. Glucose of more than 200 mg/dL in a nonstressed, ambulatory subject supports the diagnosis of Diabetes Mellitus.PERFORMED BY:[address] [place], [place] [phone] MEDICAL DIRECTORMELODY WHEELER M.D. Performed By: #### G LULS ####Point of Care testing, Glucose [Mass/Vol] 235 mg/dL Normal [facility] Comment on above: Result Comment: [facility] Glucose Reference Range is dependent on time and content of last meal. Glucose of more than 200 mg/dL in a nonstressed, ambulatory subject supports the diagnosis of Diabetes Mellitus.PERFORMED BY:[address] [place], [place] [phone] MEDICAL DIRECTORMELODY WHEELER M.D. Performed By: #### G LULS ####Point of Care testing, Glucose [Mass/Vol] 322 mg/dL Normal [facility] Comment on above: Result Comment: [facility] Glucose Reference Range is dependent on time and content of last meal. Glucose of more than 200 mg/dL in a nonstressed, ambulatory subject supports the diagnosis of Diabetes Mellitus.PERFORMED BY:[address] [place], [place] [phone] MEDICAL DIRECTORMELODY WHEELER M.D. Performed By: #### G LULS ####Point of Care testing, Glucose [Mass/Vol] 222 mg/dL Normal [facility] Comment on above: Result Comment: [facility] Glucose Reference Range is dependent on time and content of last meal. Glucose of more than 200 mg/dL in a nonstressed, ambulatory subject supports the diagnosis of Diabetes Mellitus.PERFORMED BY:[place] [address] [address] [place], [place] [phone] MEDICAL DIRECTORMELODY WHEELER M.D. Performed By: #### G OTONIEL ####Point of Care testing, Prealbumin [Mass/volume] in Serum or PlasmaOrdered By: Anthony Alaniz on 10-16-2023 Prealbumin [Mass/Vol] 9.8 mg/dL Low 17.0-34.0 [facility] Comment on above: Result Comment: PERF ORMED BY:[place] [address] [address] [place], [place] [phone] MEDICAL DIRECTORMELODY WHEELER M.D. Performed By: #### C BC, CMP, PAB ####[place] [id number] [facility] Protein [Mass/volume] in Ser um or PlasmaOrdered By: Anthony Alaniz on 10-16-2023 Protein [Mass/Vol] 4.8 g/dL Low 6.4-8.9 [facility] Comment on above: Performed By: #### C BC, CMP, PAB ####[place] [id number] [facility] Serum globulin measurement b y calculation (mass/volume)Ordered By: Anthony Alaniz on 10-16-2023 Globulin (S) [Mass/Vol] 2.2 g/dL Normal [facility] Comment on above: Performed By: #### C BC, CMP, PAB ####[place] [id number] [facility] Serum or plasma albumin/glob ulin mass ratioOrdered By: Anthony Alaniz on 10-16-2023 Albumin/Globulin [Mass ratio] 1.2 {ratio} [facility] Comment on above: Performed By: #### C BC, CMP, PAB ####[place] [id number] [facility] Capillary blood glucose radhames urement by glucometer (mass/volume)Ordered By: Chin Rodarte on 10-15-2023 Glucose [Mass/Vol] 263 mg/dL Normal [facility] Comment on above: Random Glucose Refer ence Range is dependent on time and content of last meal. Glucose of more than 200 mg/dL in a nonstressed, ambulatory subject supports the diagnosis of Diabetes Mellitus. Result Comment: [place] Glucose Reference Range is dependent on time and content of last meal. Glucose of more than 200 mg/dL in a nonstressed, ambulatory subject supports the diagnosis of Diabetes Mellitus. Performed By: #### G LULS ####Point of Care testing, Glucose Poct Glucometerson 1 12-16-2022 Glucose [Mass/Vol] 216 mg/dL Normal [facility] Comment on above: Result Comment: [place] Glucose Reference Range is dependent on time and content of last meal. Glucose of more than 200 mg/dL in a nonstressed, ambulatory subject supports the diagnosis of Diabetes Mellitus.PERFORMED BY:[address] [address] [address] [place], [place] [phone] MEDICAL DIRECTORMELODY WHEELER M.D. Performed By: #### G LULS ####Point of Care testing, Commemt1 Glu2: Cleaned Meter Normal [facility] Comment on above: Result Comment: PERF ORMED BY:[place] [address] [address] [place], [place] [phone] MEDICAL DIRECTORMELODY WHEELER M.D. Performed By: #### G LULS ####Point of Care testing, Glucose [Mass/Vol] 233 mg/dL Normal [facility] Comment on above: Result Comment: [place] Glucose Reference Range is dependent on time and content of last meal. Glucose of more than 200 mg/dL in a nonstressed, ambulatory subject supports the diagnosis of Diabetes Mellitus. Performed By: #### G LULS ####Point of Care testing, Commemt1 Glu2: Cleaned Meter Normal [facility] Comment on above: Result Comment: PERF ORMED BY:[address] [place], [place] [phone] MEDICAL DIRECTORMELODY WHEELER M.D. Performed By: #### G OTONIEL ####Point of Care testing, Glucose [Mass/Vol] 250 mg/dL Normal [facility] Comment on above: Result Comment: [facility] Glucose Reference Range is dependent on time and content of last meal. Glucose of more than 200 mg/dL in a nonstressed, ambulatory subject supports the diagnosis of Diabetes Mellitus.PERFORMED BY:[address] [place], [place] [phone] MEDICAL DIRECTORMELODY WHEELER M.D. Performed By: #### G OTONIEL ####Point of Care testing, No Panel InformationOrdered By: Chin Rodarte on 10-15-2023 Bedside Glucose Comment Glu2: cleaned meter [facility] Automated basophil %Ordered By: Epi Booth on 10-14-2023 Basophils/100 WBC (Bld) 0.5 % Normal . [facility] Comment on above: Performed By: #### B MP, SCAN CBC ####[address] Automated basophil countOrde red By: Epi Booth on 10-14-2023 Basophils (Bld) [#/Vol] 0.1 10*3/uL Normal 0.0-0.2 [facility] Comment on above: Performed By: #### B MP, SCAN CBC ####[address] Automated blood monocyte cou ntOrdered By: Epi Booth on 10-14-2023 Monocytes (Bld) [#/Vol] 2.1 10*3/uL High 0.0-0.8 [facility] Comment on above: Performed By: #### B MP, SCAN CBC ####[address] Automated eosinophil %Ordere d By: Epi Booth on 10-14-2023 Eosinophils/100 WBC (Bld) 0.4 % Normal . [facility] Comment on above: Performed By: #### B MP, SCAN CBC ####[facility] [address] [id number] [facility] Automated eosinophil countOr dered By: Epi Booth on 10-14-2023 Eosinophils (Bld) [#/Vol] 0.0 10*3/uL Normal 0.0-0.45 [facility] Comment on above: Performed By: #### B MP, SCAN CBC ####[place] [id number] [address] Automated monocyte %Ordered By: Epi Booth on 10-14-2023 Monocytes/100 WBC (Bld) 17.8 % Normal . [facility] Comment on above: Performed By: #### B MP, SCAN CBC ####[place] [address] [address] Automated neutrophil %Ordere d By: Epi Booth on 10-14-2023 Neutrophils/100 WBC (Bld) 66.9 % Normal . [facility] Comment on above: Performed By: #### B MP, SCAN CBC ####[place] [id number] [facility] Basic Metabolic Panelon Creatinine Clr Calc Pharmacy 47.62 Normal [facility] Comment on above: Result Comment: PERF ORMED BY:[address] [place], [place] [phone] MEDICAL GA WHEELER M.D. Performed By: #### B MP, SCAN CBC ####[place] [id number] [facility] GFR/1.73 sq M.predicted MDRD (S/P/Bld) [Vol rate/Area] mL/min/{1.73_m2} Normal [facility] Comment on above: Performed By: #### B MP, SCAN CBC ####[place] [address] [place] [id number] [facility] Ca 27.29on 10-14-2023 Ca 27.29 28.1 Normal 0.0-38.6 [facility] Comment on above: Result Comment: Siem CodeSealeraur Immunochemiluminometric Methodology (ICMA) Values obtained with different assay methods or kits cannot be used interchangeably. Results cannot be interpreted as absolute evidence of the presence or absence of malignant disease. Performed at: [facility] [address] [id number] It Corporate Recruiter: José Manuel Petersen PhD, Phone: [phone] BY:[address] [place], [place] [phone] MEDICAL DIRECTORMELODY WHEELER M.D. Performed By: #### C EA ####[address]#### CA19, CA125, [id number] ####[facility] , Calcium [Mass/volume] in Ser um or PlasmaOrdered By: Epi Booth on 10-14-2023 Calcium [Mass/Vol] 8.9 mg/dL Normal 8.6-10.3 [facility] Comment on above: Performed By: #### B MP, SCAN CBC ####[address] Cancer Antigen 125on 023 Cancer Antigen 125 33.3 Normal 0.0-38.1 [facility] Comment on above: Result Comment: [employer] Electrochemiluminescence Immunoassay (ECLIA) Values obtained with different assay methods or kits cannot be used interchangeably. Results cannot be interpreted as absolute evidence of the presence or absence of malignant disease. Performed at: [facility] [id number] It Corporate Recruiter: José Manuel Petersen PhD, Phone: [phone] Performed By: #### C EA ####[address]#### CA19, CA125, [id number] ####[facility] , Carbohydrate Antigen 19-9on 10-14-2023 Carbohydrate Antigen 19-9 19 Normal 0-35 [facility] Comment on above: Result Comment: [employer] [employer] Electrochemiluminescence Immunoassay (ECLIA) Values obtained with different assay methods or kits cannot be used interchangeably. Results cannot be interpreted as absolute evidence of the presence or absence of malignant disease. Performed By: #### C EA ####[address]#### CA19, CA125, [id number] ####[facility] , Carbon dioxide, total [Moles /volume] in Serum or PlasmaOrdered By: Epi Booth on 10-14-2023 CO2 [Moles/Vol] 27.5 mmol/L Normal 21.0-31.0 [facility] Comment on above: Performed By: #### B MP, SCAN CBC ####[address] Chloride [Moles/volume] in S cedric or PlasmaOrdered By: Epi Booth on 10-14-2023 Chloride [Moles/Vol] 98 mmol/L Normal 98-107 [facility] Comment on above: Performed By: #### B MP, SCAN CBC ####[address] Creatinine [Mass/volume] in Serum or PlasmaOrdered By: Epi Booth on 10-14-2023 Creatinine [Mass/Vol] 0.66 mg/dL Normal 0.60-1.20 [facility] Comment on above: Performed By: #### B MP, SCAN CBC ####[address] Erythrocyte distribution wid th [Ratio] by Automated countOrdered By: Epi Booth on 10-14-2023 Erythrocyte distribution width (RBC) [Ratio] 13.9 % Normal 11.9-15.3 [facility] Comment on above: Performed By: #### B MP, SCAN CBC ####[address] Erythrocytes [#/volume] in B lood by Automated countOrdered By: Epi Booth on 10-14-2023 RBC (Bld) [#/Vol] 3.80 10*6/uL Normal 3.60-5.00 [facility] Comment on above: Performed By: #### B MP, SCAN CBC ####[facility] [id number] [place] [address] [facility] Glucose Poct Glucometerson 1 12-15-2022 Glucose [Mass/Vol] 297 mg/dL Normal [facility] Comment on above: Result Comment: [place] Glucose Reference Range is dependent on time and content of last meal. Glucose of more than 200 mg/dL in a nonstressed, ambulatory subject supports the diagnosis of Diabetes Mellitus.PERFORMED BY:[address] [place], [place] [phone] MEDICAL DIRECTORMELODY WHEELER M.D. Performed By: #### G LULS ####Point of Care testing, Glucose [Mass/Vol] 371 mg/dL Normal [facility] Comment on above: Result Comment: [facility] Glucose Reference Range is dependent on time and content of last meal. Glucose of more than 200 mg/dL in a nonstressed, ambulatory subject supports the diagnosis of Diabetes Mellitus.PERFORMED BY:[address] [place], [place] [phone] MEDICAL GA WHEELER M.D. Performed By: #### G LULS ####Point of Care testing, Glucose [Mass/Vol] 234 mg/dL Normal [facility] Comment on above: Result Comment: [place] Glucose Reference Range is dependent on time and content of last meal. Glucose of more than 200 mg/dL in a nonstressed, ambulatory subject supports the diagnosis of Diabetes Mellitus.PERFORMED BY:[address] [place], [place] [phone] MEDICAL DIRECTORMELODY WHEELER M.D. Performed By: #### G LULS ####Point of Care testing, Glucose [Mass/Vol] 242 mg/dL Normal [facility] Comment on above: Result Comment: [place] Glucose Reference Range is dependent on time and content of last meal. Glucose of more than 200 mg/dL in a nonstressed, ambulatory subject supports the diagnosis of Diabetes Mellitus.PERFORMED BY:[address] [place], [place] [phone] MEDICAL DIRECTORMELODY WHEELER M.D. Performed By: #### G OTONIEL ####Point of Care testing, Glucose [Mass/volume] in Ser um or PlasmaOrdered By: Epi Booth on 10-14-2023 Glucose [Mass/Vol] 242 mg/dL High 70-100 [facility] Comment on above: ADA recommended refe rence rangeRandom Glucose Reference Range is dependent on time and content of last meal. Glucose of more than 200 mg/dL in a nonstressed, ambulatory subject supports the diagnosis of Diabetes Mellitus. Result Comment: [place] om Glucose Reference Range is dependent on time and content of last meal. Glucose of more than 200 mg/dL in a nonstressed, ambulatory subject supports the diagnosis of Diabetes Mellitus. ADA recommended reference range Performed By: #### B MP, SCAN CBC ####[place] [id number] [place] [id number] [facility] Hematocrit [Volume Fraction] of Blood by Automated countOrdered By: Epi Booth on 10-14-2023 Hematocrit (Bld) [Volume fraction] 34.4 % Normal 34.0-46.4 [facility] Comment on above: Performed By: #### B MP, SCAN CBC ####[place] [id number] [facility] Hemoglobin [Mass/volume] in BloodOrdered By: Epi Booth on 10-14-2023 Hemoglobin (Bld) [Mass/Vol] 11.3 g/dL Low 11.8-15.4 [facility] Comment on above: Performed By: #### B MP, SCAN CBC ####[place] [id number] [facility] Leukocytes [#/volume] correc seferino for nucleated erythrocytes in Blood by Automated counOrdered By: Epi Booth on 10-14-2023 WBC corrected for nucl RBC Auto (Bld) [#/Vol] 11.7 10*3/uL 3.8-11.6 [facility] Leukocytes [#/volume] in Blo od by Automated countOrdered By: Epi Booth on 10-14-2023 WBC (Bld) [#/Vol] 11.7 10*3/uL High 3.8-11.6 [facility] Comment on above: Performed By: #### B MP, SCAN CBC ####[address] Lymphocytes [#/volume] in Bl ood by Automated countOrdered By: Epi Booth on 10-14-2023 Lymphocytes (Bld) [#/Vol] 1.7 10*3/uL Normal 1.00-4.8 [facility] Comment on above: Performed By: #### B MP, SCAN CBC ####[address] Lymphocytes/100 leukocytes i n Blood by Automated countOrdered By: Epi Booth on 10-14-2023 Lymphocytes/100 WBC (Bld) 14.4 % Normal . [facility] Comment on above: Performed By: #### B MP, SCAN CBC ####[address] MCH [Entitic mass] by Automa seferino countOrdered By: Epi Booth on 10-14-2023 MCH (RBC) [Entitic mass] 29.7 pg Normal 24.7-34.3 [facility] Comment on above: Performed By: #### B MP, SCAN CBC ####[address] MCHC Auto (RBC) [Mass/Vol]Or dered By: Epi Booth on 10-14-2023 MCHC (RBC) [Mass/Vol] 32.9 g/dL 32.0-35.0 [facility] MCV [Entitic volume] by Auto mated countOrdered By: Epi Booth on 10-14-2023 MCV (RBC) [Entitic vol] 90.5 fL Normal 80-100 [facility] Comment on above: Performed By: #### B MP, SCAN CBC ####[address] Neutrophils [#/volume] in Bl ood by Automated countOrdered By: Epi Booth on 10-14-2023 Neutrophils (Bld) [#/Vol] 7.9 10*3/uL High 1.8-7.7 [facility] Comment on above: Performed By: #### B MP, SCAN CBC ####[facility] [id number] No Panel InformationOrdered By: Tosha HarlanReynaCoraltejas on 10-14-2023 CA 27.29 28.1 U/mL 0.0-38.6 [facility] Comment on above: [employer] Immu nochemiluminometric Methodology (ICMA)Values obtained with different assay methods or kits cannotbe used interchangeably. Results cannot be interpreted asabsolute evidence of the presence or absence of malignantdisease.Performed at: [place] [id number] Director: José Manuel Petersen PhD, Phone: [phone] No Panel InformationOrdered By: Epi Booth on 10-14-2023 Estimated GFR (CKD-EPI) > 60.0 mL/Min [facility] Creatinine Clearance (Chem 47.62 [facility] Nucleated erythrocytes [Pres ence] in Blood by Automated countOrdered By: Epi Booth on 10-14-2023 Nucleated RBC Auto Ql (Bld) 0.0 /100{WBC} 0-0.5 [facility] Platelet adequacy [Presence] in Blood by Light microscopyOrdered By: Epi Booth on 10-14-2023 Platelets LM Ql (Bld) Normal Normal [facility] Platelet mean volume [Entiti c volume] in Blood by Automated countOrdered By: Epi Booth on 10-14-2023 Platelet mean volume (Bld) [Entitic vol] 9.0 fL Normal 6.3-10.7 [facility] Comment on above: Performed By: #### B MP, SCAN CBC ####[facility] [id number] Platelet morphology finding [Identifier] in BloodOrdered By: Epi Booth on 10-14-2023 Platelet morphology finding Nom (Bld) Normal Normal [facility] Platelets [#/volume] in Bloo d by Automated countOrdered By: Epi Booth on 10-14-2023 Platelets (Bld) [#/Vol] 225 10*3/uL Normal 150-450 [facility] Comment on above: Performed By: #### B MP, SCAN CBC ####[place] [id number] [facility] Potassium [Moles/volume] in Serum or PlasmaOrdered By: Epi Booth on 10-14-2023 Potassium [Moles/Vol] 4.0 mmol/L Normal 3.5-5.1 [facility] Comment on above: Performed By: #### B MP, SCAN CBC ####[place] [id number] [facility] RBC morphologyOrdered By: Alejandra Booth on 10-14-2023 RBC morphology finding Nom (Bld) Normal Normal Normal [facility] Comment on above: Performed By: #### B MP, SCAN CBC ####[place] [id number] [facility] Scan and CBCon 10-14-2023 Mean Corpuscular HGB Conc 32.9 g/dL Normal 32.0-35.0 [facility] Comment on above: Performed By: #### B MP, SCAN CBC ####[place] [id number] [facility] NRBC% 0.0 /100{WBC} Normal 0-0.5 [facility] Comment on above: Performed By: #### B MP, SCAN CBC ####[place] [id number] [facility] Platelet Estimate Normal Normal Normal [facility] Comment on above: Performed By: #### B MP, SCAN CBC ####[address] [address] [facility] Platelet Morphology Normal Normal Normal [facility] Comment on above: Result Comment: PERF ORMED BY:[place] [address] [address] [place], [place] [phone] MEDICAL DIRECTORMELODY WHEELER M.D. Performed By: #### B MP, SCAN CBC ####[place] [id number] [facility] Serum or plasma anion gap de terminationOrdered By: Epi Booth on 10-14-2023 Anion gap [Moles/Vol] 9.5 mmol/L Normal 6.0-15.0 [facility] Comment on above: Performed By: #### B MP, SCAN CBC ####[facility] [id number] Serum or plasma cancer antig en 125 (CA-125) measurement (units/volume)Ordered By: Tosha Patel on 10-14-2023 Cancer Ag 125 Qn 33.3 [arb'U]/mL 0.0-38.1 [facility] Comment on above: [employer] El ectrochemiluminescence Immunoassay(ECLIA)Values obtained with different assay methods or kits cannotbe used interchangeably. Results cannot be interpreted asabsolute evidence of the presence or absence of malignantdisease.Performed at: [place] [id number] Director: José Manuel Petersen PhD, Phone: [phone] Serum or plasma cancer antig en 19-9 measurement (units/volume)Ordered By: Tosha Patel on 10-14-2023 Cancer Ag 19-9 Qn 19 [arb'U]/mL 0-35 [facility] Comment on above: [facility] El ectrochemiluminescence Immunoassay(ECLIA)Values obtained with different assay methods or kits cannotbe used interchangeably. Results cannot be interpreted asabsolute evidence of the presence or absence of malignantdisease. Serum or plasma carcinoembry onic antigen measurement (mass/volume)Ordered By: Tosha Patel on 10-14-2023 Carcinoembryonic Ag [Mass/Vol] 2.0 ng/mL 0.0-3.0 [facility] Sodium [Moles/volume] in Ser um or PlasmaOrdered By: Epi Booth on 10-14-2023 Sodium [Moles/Vol] 131 mmol/L Low 136-145 [facility] Comment on above: Performed By: #### B MP, SCAN CBC ####[facility] [id number] Urea nitrogen [Mass/volume] in Serum or PlasmaOrdered By: Epi Booth on 10-14-2023 Urea nitrogen [Mass/Vol] 18 mg/dL Normal 7-25 [facility] Comment on above: Performed By: #### B MP, SCAN CBC ####[facility] [place] [address] [facility] Basic Metabolic Panelon Anion gap [Moles/Vol] 13.7 mmol/L Normal 6.0-15.0 [facility] Comment on above: Performed By: #### B MP, DIFF CBC ####[place] [address] [place] [address] [place] Calcium [Mass/Vol] 9.5 mg/dL Normal 8.6-10.3 [facility] Comment on above: Performed By: #### B MP, DIFF CBC ####[place] [address] [place] [address] [facility] Chloride [Moles/Vol] 95 mmol/L Low 98-107 [facility] Comment on above: Performed By: #### B MP, DIFF CBC ####[place] [address] [place] [address] [facility] CO2 [Moles/Vol] 27.2 mmol/L Normal 21.0-31.0 [facility] Comment on above: Performed By: #### B MP, DIFF CBC ####[place] [address] [place] [address] [place] Creatinine [Mass/Vol] 0.77 mg/dL Significan t change down 0.60-1.20 [facility] Comment on above: Performed By: #### B MP, DIFF CBC ####[place] [address] [place] [address] [place] Creatinine Clr Calc Pharmacy 47.52 Normal [facility] Comment on above: Result Comment: PERF ORMED BY:[address] [place], [place] [phone] MEDICAL DIRECTORMELODY WHEELER M.D. Performed By: #### B MP, DIFF CBC ####[facility] [address] GFR/1.73 sq M.predicted MDRD (S/P/Bld) [Vol rate/Area] mL/min/{1.73_m2} Normal [facility] Comment on above: Performed By: #### B MP, DIFF CBC ####[address] Glucose [Mass/Vol] 339 mg/dL High 70-100 [facility] Comment on above: Result Comment: [place] Glucose Reference Range is dependent on time and content of last meal. Glucose of more than 200 mg/dL in a nonstressed, ambulatory subject supports the diagnosis of Diabetes Mellitus. ADA recommended reference range Performed By: #### B MP, DIFF CBC ####[address] Potassium [Moles/Vol] 4.9 mmol/L Normal 3.5-5.1 [facility] Comment on above: Performed By: #### B MP, DIFF CBC ####[address] Sodium [Moles/Vol] 131 mmol/L Low 136-145 [facility] Comment on above: Performed By: #### B MP, DIFF CBC ####[address] Urea nitrogen [Mass/Vol] 20 mg/dL Normal 7-25 [facility] Comment on above: Performed By: #### B MP, DIFF CBC ####[address] Diff and CBCon 10-13-2023 Erythrocyte distribution width (RBC) [Ratio] 14.1 % Normal 11.9-15.3 [facility] Comment on above: Performed By: #### B MP, DIFF CBC ####[address] Giant Platelet Tally 1 /100{WBC} Normal [facility] Comment on above: Performed By: #### B MP, DIFF CBC ####[address] Hematocrit (Bld) [Volume fraction] 41.1 % Normal 34.0-46.4 [facility] Comment on above: Performed By: #### B MP, DIFF CBC ####[address] Hemoglobin (Bld) [Mass/Vol] 13.4 g/dL Normal 11.8-15.4 [facility] Comment on above: Performed By: #### B MP, DIFF CBC ####[place] [id number] [facility] MCH (RBC) [Entitic mass] 30.1 pg Normal 24.7-34.3 [facility] Comment on above: Performed By: #### B MP, DIFF CBC ####[address] MCV (RBC) [Entitic vol] 91.9 fL Normal 80-100 [facility] Comment on above: Performed By: #### B MP, DIFF CBC ####[address] Mean Corpuscular HGB Conc 32.7 g/dL Normal 32.0-35.0 [facility] Comment on above: Performed By: #### B MP, DIFF CBC ####[place] [id number] [facility] Platelet Estimate Normal Normal Normal [facility] Comment on above: Performed By: #### B MP, DIFF CBC ####[place] [id number] [facility] Platelet mean volume (Bld) [Entitic vol] 9.3 fL Normal 6.3-10.7 [facility] Comment on above: Performed By: #### B MP, DIFF CBC ####[place] [id number] [facility] Platelet Morphology Normal Normal Normal [facility] Comment on above: Result Comment: PERF ORMED BY:[address] [place], [place] [phone] MEDICAL DIRECTORMELODY WHEELER M.D. Performed By: #### B MP, DIFF CBC ####[address] [address] [facility] Platelets (Bld) [#/Vol] 246 10*3/uL Normal 150-450 [facility] Comment on above: Performed By: #### B MP, DIFF CBC ####[place] [address] [place] [address] [facility] Polychromasia Slight Normal [facility] Comment on above: Performed By: #### B MP, DIFF CBC ####[place] [address] [place] [address] [facility] RBC (Bld) [#/Vol] 4.47 10*6/uL Normal 3.60-5.00 [facility] Comment on above: Performed By: #### B MP, DIFF CBC ####[place] [address] [place] [address] [facility] Reactive Lymphocytes 1 % Normal 0-12 [facility] Comment on above: Performed By: #### B MP, DIFF CBC ####[address] [address] [facility] WBC (Bld) [#/Vol] 18.2 10*3/uL High 3.8-11.6 [facility] Comment on above: Performed By: #### B MP, DIFF CBC ####[address] [address] [facility] Giant platelets/100 leukocyt es [Ratio] in Blood by Manual countOrdered By: Epi Booth on 10-13-2023 Giant platelets/100 WBC Manual cnt (Bld) [Ratio] 1 /100{WBC} [facility] Glucose Poct Glucometerson 1 12-14-2022 Glucose [Mass/Vol] 276 mg/dL Normal [facility] Comment on above: Result Comment: [place] Glucose Reference Range is dependent on time and content of last meal. Glucose of more than 200 mg/dL in a nonstressed, ambulatory subject supports the diagnosis of Diabetes Mellitus.PERFORMED BY:[address] [place], [place] [phone] MEDICAL DIRECTORMELODY WHEELER M.D. Performed By: #### G LULS ####Point of Care testing, Glucose [Mass/Vol] 258 mg/dL Normal [facility] Comment on above: Result Comment: [place] om Glucose Reference Range is dependent on time and content of last meal. Glucose of more than 200 mg/dL in a nonstressed, ambulatory subject supports the diagnosis of Diabetes Mellitus.PERFORMED BY:[place] [address] [address] LAURENErnieCharuLEVY[place], [place] [phone] MEDICAL DIRECTORMELODY WHEELER M.D. Performed By: #### G LULS ####Point of Care testing, Glucose [Mass/Vol] 346 mg/dL Normal [facility] Comment on above: Result Comment: [place] om Glucose Reference Range is dependent on time and content of last meal. Glucose of more than 200 mg/dL in a nonstressed, ambulatory subject supports the diagnosis of Diabetes Mellitus.PERFORMED BY:[place] [address] [address] SCHWARTZCharuLEVYMIN[place], [place] [phone] MEDICAL DIRECTORMELODY WHEELER M.D. Performed By: #### G LULS ####Point of Care testing, Commemt1 Normal [facility] Comment on above: Result Comment: Glu2 : Will Repeat TestPERFORMED BY:[place] [address] [address] [place], [place] [phone] MEDICAL DIRECTORMELODY WHEELER M.D. Performed By: #### G LULS ####Point of Care testing, Glucose [Mass/Vol] 438 mg/dL Off scale high [facility] Comment on above: Result Comment: [place] om Glucose Reference Range is dependent on time and content of last meal. Glucose of more than 200 mg/dL in a nonstressed, ambulatory subject supports the diagnosis of Diabetes Mellitus. Performed By: #### G LULS ####Point of Care testing, Glucose [Mass/Vol] 299 mg/dL Normal [facility] Comment on above: Result Comment: [place] om Glucose Reference Range is dependent on time and content of last meal. Glucose of more than 200 mg/dL in a nonstressed, ambulatory subject supports the diagnosis of Diabetes Mellitus.PERFORMED BY:[facility] [place] [address] [place], [place] [phone] MEDICAL DIRECTORMELODY WHEELER M.D. Performed By: #### G LULS ####Point of Care testing, Lymphocytes/100 leukocytes i n Blood by Manual countOrdered By: Epi Booth on 10-13-2023 Lymphocytes/100 WBC (Bld) 10 % Low 18-42 [facility] Comment on above: Performed By: #### B MP, DIFF CBC ####[facility] [id number] [place] [id number] [facility] Manual blood segmented neutr ophils/100 leukocytesOrdered By: Epi Booth on 10-13-2023 Segmented neutrophils/100 WBC (Bld) 84 % High 50-70 [facility] Comment on above: Performed By: #### B MP, DIFF CBC ####[place] [id number] [facility] Monocytes/100 leukocytes in Blood by Manual countOrdered By: Epi Booth on 10-13-2023 Monocytes/100 WBC (Bld) 6 % Normal 2-11 [facility] Comment on above: Performed By: #### B MP, DIFF CBC ####[place] [id number] [facility] Polychromasia [Presence] in Blood by Light microscopyOrdered By: Epi Booth on 10-13-2023 Polychromasia LM Ql (Bld) Slight [facility] Variant lymphocytes/100 WBC Manual cnt (Bld)Ordered By: Epi Booth on 10-13-2023 Variant lymphocytes/100 WBC (Bld) 1 % 0-12 [facility] Automated erythrocytes count in urine sediment (number/area)Ordered By: Chin Rodarte on 10-12-2023 RBC Auto (Urine sed) [#/Area] Innumerable [HPF] 0-4 [facility] Automated leukocytes count i n urine sediment (number/area)Ordered By: Chin Rodarte on 10-12-2023 WBC Auto (Urine sed) [#/Area] Innumerable [HPF] 0-4 [facility] Automated urine color determ inationOrdered By: Chin Rodarte on 10-12-2023 Color (U) Dark yellow Critically abnormal Yellow [facility] Comment on above: Order Comment: Name Collection Type:: Joseph Catheter Performed By: #### A JULI, CUU ####[place] [address] [place] [address] [facility] Basic Metabolic Panelon Anion gap [Moles/Vol] 11.9 mmol/L Normal 6.0-15.0 [facility] Comment on above: Performed By: #### B MP, CBC ####[address] [address] [facility] Calcium [Mass/Vol] 9.2 mg/dL Normal 8.6-10.3 [facility] Comment on above: Result Comment: PERF ORMED BY:[address] [place], [place] [phone] MEDICAL DIRECTORMELODY WHEELER M.D. Performed By: #### B MP, CBC ####[address] [address] [place] Chloride [Moles/Vol] 100 mmol/L Normal 98-107 [facility] Comment on above: Performed By: #### B MP, CBC ####[address] [address] [facility] CO2 [Moles/Vol] 25.7 mmol/L Normal 21.0-31.0 [facility] Comment on above: Performed By: #### B MP, CBC ####[address] [address] [facility] Creatinine [Mass/Vol] mg/dL Significan t change down 0.60-1.20 [facility] Comment on above: Result Comment: When the Creatinine is <0.20, the GFR is unable to be calculated. Performed By: #### B MP, CBC ####[address] [address] [place] Glucose [Mass/Vol] 305 mg/dL Significant change up 70-100 [facility] Comment on above: Result Comment: [place] Glucose Reference Range is dependent on time and content of last meal. Glucose of more than 200 mg/dL in a nonstressed, ambulatory subject supports the diagnosis of Diabetes Mellitus. ADA recommended reference range Performed By: #### B MP, CBC ####[place] [address] [place] [id number] [facility] Potassium [Moles/Vol] 4.6 mmol/L Normal 3.5-5.1 [facility] Comment on above: Performed By: #### B MP, CBC ####[address] [address] [facility] Sodium [Moles/Vol] 133 mmol/L Low 136-145 [facility] Comment on above: Performed By: #### B MP, CBC ####[address] [address] [facility] Urea nitrogen [Mass/Vol] mg/dL Low 7-25 [facility] Comment on above: Performed By: #### B MP, CBC ####[place] [id number] [facility] Bilirubin Test strip Ql (U)O rdered By: Chin Rodarte on 10-12-2023 Bilirubin Ql (U) 1+ Negative [facility] Complete Blood Count Auto Di ffon 10-12-2023 Basophils (Bld) [#/Vol] 0.2 10*3/uL Normal 0.0-0.2 [facility] Comment on above: Result Comment: PERF ORMED BY:[address] [place], [place] [phone] MEDICAL DIRECTORMELODY WHEELER M.D. Performed By: #### B MP, CBC ####[address] [address] [place] Basophils/100 WBC (Bld) 1.2 % Normal . [facility] Comment on above: Performed By: #### B MP, CBC ####[address] [address] [place] Eosinophils (Bld) [#/Vol] 0.1 10*3/uL Normal 0.0-0.45 [facility] Comment on above: Performed By: #### B MP, CBC ####[address] Eosinophils/100 WBC (Bld) 1.1 % Normal . [facility] Comment on above: Performed By: #### B MP, CBC ####[address] Erythrocyte distribution width (RBC) [Ratio] 14.1 % Normal 11.9-15.3 [facility] Comment on above: Performed By: #### B MP, CBC ####[address] Hematocrit (Bld) [Volume fraction] 43.1 % Normal 34.0-46.4 [facility] Comment on above: Performed By: #### B MP, CBC ####[address] Hemoglobin (Bld) [Mass/Vol] 14.3 g/dL Normal 11.8-15.4 [facility] Comment on above: Performed By: #### B MP, CBC ####[address] Lymphocytes (Bld) [#/Vol] 1.6 10*3/uL Normal 1.00-4.8 [facility] Comment on above: Performed By: #### B MP, CBC ####[address] Lymphocytes/100 WBC (Bld) 12.5 % Normal . [facility] Comment on above: Performed By: #### B MP, CBC ####[address] MCH (RBC) [Entitic mass] 30.0 pg Normal 24.7-34.3 [facility] Comment on above: Performed By: #### B MP, CBC ####[address] MCV (RBC) [Entitic vol] 90.5 fL Normal 80-100 [facility] Comment on above: Performed By: #### B MP, CBC ####[address] Mean Corpuscular HGB Conc 33.2 g/dL Normal 32.0-35.0 [facility] Comment on above: Performed By: #### B MP, CBC ####[address] Monocytes (Bld) [#/Vol] 1.3 10*3/uL High 0.0-0.8 [facility] Comment on above: Performed By: #### B MP, CBC ####[address] Monocytes/100 WBC (Bld) 9.7 % Normal . [facility] Comment on above: Performed By: #### B MP, CBC ####[address] Neutrophils (Bld) [#/Vol] 9.9 10*3/uL High 1.8-7.7 [facility] Comment on above: Performed By: #### B MP, CBC ####[address] Neutrophils/100 WBC (Bld) 75.5 % Normal . [facility] Comment on above: Performed By: #### B MP, CBC ####[address] NRBC% 0.0 /100{WBC} Normal 0-0.5 [facility] Comment on above: Performed By: #### B MP, CBC ####[address] Platelet mean volume (Bld) [Entitic vol] 8.7 fL Normal 6.3-10.7 [facility] Comment on above: Performed By: #### B MP, CBC ####[address] Platelets (Bld) [#/Vol] 256 10*3/uL Normal 150-450 [facility] Comment on above: Performed By: #### B MP, CBC ####[address] [address] [facility] RBC (Bld) [#/Vol] 4.76 10*6/uL Normal 3.60-5.00 [facility] Comment on above: Performed By: #### B MP, CBC ####[address] [address] [facility] WBC (Bld) [#/Vol] 13.1 10*3/uL High 3.8-11.6 [facility] Comment on above: Performed By: #### B MP, CBC ####[place] [id number] [facility] Dipstick and Microscopicon 1 12-13-2022 Appearance (U) Turbid Critically abnormal Clear [facility] Comment on above: Order Comment: Name Collection Type:: Joseph Catheter Performed By: #### A DDONUAPLUS, CUU ####[place] [id number] [facility] Bacteria,Urine None Seen Normal None Seen [facility] Comment on above: Order Comment: Name Collection Type:: Joseph Catheter Performed By: #### A DDONUAPLUS, CUU ####[address] [address] [facility] Bilirubin,Urine 1+ High Negative [facility] Comment on above: Order Comment: Name Collection Type:: Joseph Catheter Performed By: #### A DDONUAPLUS, CUU ####[address] [address] [facility] Glucose Ql (U) Normal Normal Normal [facility] Comment on above: Order Comment: Name Collection Type:: Joseph Catheter Performed By: #### A DDONUAPLUS, CUU ####[address] [address] [facility] Hyaline Casts,Urine 0-8 Normal 0-8 [facility] Comment on above: Order Comment: Name Collection Type:: Joseph Catheter Result Comment: PERF ORMED BY:[place] [address] [place] [place], [place] [phone] MEDICAL GA WHEELER M.D. Performed By: #### A DDONUAPLUS, CUU ####[place] [address] [place] [address] [facility] Ketones Ql (U) Trace High Negative [facility] Comment on above: Order Comment: Name Collection Type:: Joseph Catheter Performed By: #### A DDONUAPLUS, CUU ####[address] [address] [facility] Leukocyte esterase Test strip Ql (U) 3+ High Negative [facility] Comment on above: Order Comment: Name Collection Type:: Joseph Catheter Performed By: #### A DDONUAPLUS, CUU ####[address] [address] [facility] Nitrite,Urine Positive High Negative [facility] Comment on above: Order Comment: Name Collection Type:: Joseph Catheter Performed By: #### A DDONUAPLUS, CUU ####[address] [address] [facility] Occult Blood,Urine 3+ High Negative [facility] Comment on above: Order Comment: Name Collection Type:: Joseph Catheter Result Comment: PERF ORMED BY:[place] [address] [place] [place], [place] [phone] MEDICAL GA WHEELER M.D. Performed By: #### A DDONUAPLUS, CUU ####[place] [address] [place] [address] [place] RBC,Urine Innumerable High 0-4 [facility] Comment on above: Order Comment: Name Collection Type:: Joseph Catheter Performed By: #### A DDONUAPLUS, CUU ####[place] [address] [place] [address] [facility] Specificy [place],Urine 1.031 High 1.00 1-1.03 0 [facility] Comment on above: Order Comment: Name Collection Type:: Joseph Catheter Performed By: #### A DDONUAPLUS, CUU ####[place] [id number] [facility] Squamous Epithelial Cell,Urine 1-2 Normal 0-2 [facility] Comment on above: Order Comment: Name Collection Type:: Joseph Catheter Performed By: #### A DDONUAPLUS, CUU ####[place] [id number] [facility] Urobilinogen,Urine Normal Normal Normal [facility] Comment on above: Order Comment: Name Collection Type:: Joseph Catheter Performed By: #### A DDONUAPLUS, CUU ####[address] WBC,Urine Innumerable High 0-4 [facility] Comment on above: Order Comment: Name Collection Type:: Joseph Catheter Performed By: #### A DDONUAPLUS, CUU ####[place] [id number] [facility] Glucose Poct Glucometerson 1 12-13-2022 Glucose [Mass/Vol] 236 mg/dL Normal [facility] Comment on above: Result Comment: [place] Glucose Reference Range is dependent on time and content of last meal. Glucose of more than 200 mg/dL in a nonstressed, ambulatory subject supports the diagnosis of Diabetes Mellitus.PERFORMED BY:[place] [address] [address] [place], [place] [phone] MEDICAL DIRECTORMELODY WHEELER M.D. Performed By: #### G LULS ####Point of Care testing, Commemt1 Glu2: Cleaned Meter Normal [facility] Comment on above: Result Comment: PERF ORMED BY:[place] [address] [place] [place], [place] [phone] MEDICAL GA WHEELER M.D. Performed By: #### G LULS ####Point of Care testing, Glucose [Mass/Vol] 151 mg/dL Normal [facility] Comment on above: Result Comment: [place] Glucose Reference Range is dependent on time and content of last meal. Glucose of more than 200 mg/dL in a nonstressed, ambulatory subject supports the diagnosis of Diabetes Mellitus. Performed By: #### G LULS ####Point of Care testing, Commemt1 Glu2: Cleaned Meter Normal [facility] Comment on above: Result Comment: PERF ORMED BY:[place] [address] [address] [place], [place] [phone] MEDICAL DIRECTORMELODY WHEELER M.D. Performed By: #### G LULS ####Point of Care testing, Glucose [Mass/Vol] 207 mg/dL Normal [facility] Comment on above: Result Comment: [place] Glucose Reference Range is dependent on time and content of last meal. Glucose of more than 200 mg/dL in a nonstressed, ambulatory subject supports the diagnosis of Diabetes Mellitus. Performed By: #### G LULS ####Point of Care testing, Glucose [Mass/Vol] 197 mg/dL Normal [facility] Comment on above: Result Comment: [place] Glucose Reference Range is dependent on time and content of last meal. Glucose of more than 200 mg/dL in a nonstressed, ambulatory subject supports the diagnosis of Diabetes Mellitus.PERFORMED BY:[address] [place], [place] [phone] MEDICAL DIRECTORMELODY WHEELER M.D. Performed By: #### G LULS ####Point of Care testing, Glucose [Mass/Vol] 252 mg/dL Normal [facility] Comment on above: Result Comment: [place] Glucose Reference Range is dependent on time and content of last meal. Glucose of more than 200 mg/dL in a nonstressed, ambulatory subject supports the diagnosis of Diabetes Mellitus.PERFORMED BY:[address] [place], [place] [phone] MEDICAL DIRECTORMELODY WHEELER M.D. Performed By: #### G LULS ####Point of Care testing, Glucose [Mass/Vol] 278 mg/dL Normal [facility] Comment on above: Result Comment: [place] Glucose Reference Range is dependent on time and content of last meal. Glucose of more than 200 mg/dL in a nonstressed, ambulatory subject supports the diagnosis of Diabetes Mellitus.PERFORMED BY:[place] [address] [place] [place], [place] [phone] MEDICAL DIRECTORMELODY WHEELER M.D. Performed By: #### G LULS ####Point of Care testing, Commemt1 Glu2: Cleaned Meter Normal [facility] Comment on above: Result Comment: PERF ORMED BY:[place] [address] [place] [place], [place] [phone] MEDICAL DIRECTORMELODY WHEELER M.D. Performed By: #### G LULS ####Point of Care testing, Glucose [Mass/Vol] 312 mg/dL Normal [facility] Comment on above: Result Comment: [facility] Glucose Reference Range is dependent on time and content of last meal. Glucose of more than 200 mg/dL in a nonstressed, ambulatory subject supports the diagnosis of Diabetes Mellitus. Performed By: #### G LULS ####Point of Care testing, Ketones Auto test strip (U) [Mass/Vol]Ordered By: Chin Rodarte on 10-12-2023 Ketones (U) [Mass/Vol] Trace Negative [facility] Perez 10-12-2023 L Normal [facility] Laboratory - UrinalysisOrder ed By: Chin Rodarte on 10-12-2023 Hyaline casts LM Ql (Urine sed) 0-8 [LPF] 0-8 [facility] Nitrite Test strip Ql (U)Ord ered By: Chin Rodarte on 10-12-2023 Nitrite Ql (U) Positive Negative [facility] Specific gravity Auto test s trip (U) [Rel density]Ordered By: Chin Rodarte on 10-12-2023 Specific gravity (U) [Rel density] 1.031 1.001-1.03 0 [facility] Squamous epithelial cells de tection in urine sediment by light microscopyOrdered By: Chin Rodarte on 10-12-2023 Epithelial cells.squamous LM Ql (Urine sed) 1-2 [HPF] 0-2 [facility] Urine Cultureon 10-12-2023 Bacteria identified Cx Nom (U) ORGANISM: Jessica glabrata (O:CANGLA) [place] Count >100,000 PERFORMED BY: [facility] [address] [place] [address] PATHOLOGIST [employer] MELODY WHEELER M.D. Normal [facility] Comment on above: Performed By: #### A JULI CUU ####[place] [address] Urine bacteria detection by automated methodOrdered By: Chin Rodarte on 10-12-2023 Bacteria Auto Ql (U) None seen None Seen [facility] Urine clarity by refractomet ry automatedOrdered By: Chin Rodarte on 10-12-2023 Clarity Refractometry automated (U) Turbid Clear [facility] Urine culture routineOrdered By: Chin Rodarte on 10-12-2023 Bacteria identified Cx Nom (U) Jessica glabrata [facility] Urine glucose measurement by automated test strip (mass/volume)Ordered By: Chin Rodarte on 10-12-2023 Glucose Auto test strip (U) [Mass/Vol] Normal mg/dL Normal [facility] Urine hemoglobin detection b y automated test stripOrdered By: Chin Rodarte on 10-12-2023 Hemoglobin Auto test strip Ql (U) 3+ Negative [facility] Urine leukocyte esterase det ection by automated test stripOrdered By: Chin Rodarte on 10-12-2023 Leukocyte esterase Auto test strip Ql (U) 3+ Negative [facility] Urine pH measurement by auto mated test stripOrdered By: Chin Rodarte on 10-12-2023 pH (U) 5.5 [pH] Normal 5.0-9.0 [facility] Comment on above: Order Comment: Name Collection Type:: Joseph Catheter Performed By: #### A JULI, CUU ####[place] [address] Urine protein measurement by automated test strip (mass/volume)Ordered By: Chin Rodarte on 10-12-2023 Protein (U) [Mass/Vol] 300 mg/dL High Negative [facility] Comment on above: Order Comment: Name Collection Type:: Joseph Catheter Performed By: #### A JULI, DIANNAU ####[facility] [address] [place] [id number] [facility] Urobilinogen Auto test strip (U) [Mass/Vol]Ordered By: Chin Rodarte on 10-12-2023 Urobilinogen (U) [Mass/Vol] Normal mg/dL Normal [facility] XR hip RT min 2V(w/wo pelvis )*on 10-12-2023 XR hip RT min 2V(w/wo pelvis)* Normal [facility] ABO/Rh Retypeon 10-11-2023 ABO/RH Recheck Result Negative Normal [facility] Comment on above: Result Comment: PERF ORMED BY:[address] [place] [phone] MEDICAL DIRECTORMELODY WHEELER M.D. Activated partial thrombopla stin time (aPTT) in platelet poor plasma by coagulation aOrdered By: Ketty Brand on 10-11-2023 aPTT Coag (PPP) [Time] 32.0 s 25.1-36.5 [facility] Comment on above: A hematocrit value g reater than 55% may lead to inaccurate results in coagulation testing. Patients having hematocrit values >55% require a special collection tube for coagulation studies. Please contact the laboratory at [phone] for redraw instructions. Automated basophil %Ordered By: Ketty Brand on 10-11-2023 Basophils/100 WBC (Bld) 1.0 % Normal . [facility] Comment on above: Performed By: #### C BC, BMP, PT, PTT ####[facility] [address] [place] [id number] [facility] Automated basophil countOrde red By: Ketty Brand on 10-11-2023 Basophils (Bld) [#/Vol] 0.1 10*3/uL Normal 0.0-0.2 [facility] Comment on above: Result Comment: PERF ORMED BY:[address] [place], [place] [phone] MEDICAL DIRECTORMELODY WHEELER M.D. Performed By: #### C BC, BMP, PT, PTT ####[address] Automated blood monocyte cou ntOrdered By: Ketty Brand on 10-11-2023 Monocytes (Bld) [#/Vol] 0.8 10*3/uL Normal 0.0-0.8 [facility] Comment on above: Performed By: #### C BC, BMP, PT, PTT ####[address] Automated eosinophil %Ordere d By: Ketty Brand on 10-11-2023 Eosinophils/100 WBC (Bld) 1.7 % Normal . [facility] Comment on above: Performed By: #### C BC, BMP, PT, PTT ####[address] Automated eosinophil countOr dered By: Ketty Brand on 10-11-2023 Eosinophils (Bld) [#/Vol] 0.2 10*3/uL Normal 0.0-0.45 [facility] Comment on above: Performed By: #### C BC, BMP, PT, PTT ####[address] Automated monocyte %Ordered By: Ketty Brand on 10-11-2023 Monocytes/100 WBC (Bld) 8.4 % Normal . [facility] Comment on above: Performed By: #### C BC, BMP, PT, PTT ####[address] Automated neutrophil %Ordere d By: Ketty Brand on 10-11-2023 Neutrophils/100 WBC (Bld) 67.6 % Normal . [facility] Comment on above: Performed By: #### C BC, BMP, PT, PTT ####[address] Basic Metabolic Panelon GFR/1.73 sq M.predicted MDRD (S/P/Bld) [Vol rate/Area] mL/min/{1.73_m2} Normal [facility] Comment on above: Performed By: #### C BC, BMP, PT, PTT ####[place] [address] [place] [address] [facility] [address] cervical spine wo conon 1 12-12-2022 CT cervical spine wo con Normal [facility] CT chest w conon 10-11-2023 CT chest w con Normal [facility] Calcium [Mass/volume] in Ser um or PlasmaOrdered By: Ketty Brand on 10-11-2023 Calcium [Mass/Vol] 9.5 mg/dL Normal 8.6-10.3 [facility] Comment on above: Result Comment: PERF ORMED BY:[address] [place], [place] [phone] MEDICAL DIRECTORMELODY WHEELER M.D. Performed By: #### C BC, BMP, PT, PTT ####[place] [address] [place] [address] [facility] Carbon dioxide, total [Moles /volume] in Serum or PlasmaOrdered By: Ketty Brand on 10-11-2023 CO2 [Moles/Vol] 27.4 mmol/L Normal 21.0-31.0 [facility] Comment on above: Performed By: #### C BC, BMP, PT, PTT ####[place] [id number] [facility] Chloride [Moles/volume] in S cedric or PlasmaOrdered By: Ketty Brand on 10-11-2023 Chloride [Moles/Vol] 100 mmol/L Normal 98-107 [facility] Comment on above: Performed By: #### C BC, BMP, PT, PTT ####[place] [address] [place] [address] [facility] Complete Blood Count Auto Di ffon 10-11-2023 Mean Corpuscular HGB Conc 33.6 g/dL Normal 32.0-35.0 [facility] Comment on above: Performed By: #### C BC, BMP, PT, PTT ####[place] [id number] [facility] Monocytes/100 WBC (Bld) 17.73 % Normal 0.00-20.00 T kimmie [facility] Comment on above: Performed By: #### C BC, BMP, PT, PTT ####[place] [id number] [facility] NRBC% 0.1 /100{WBC} Normal 0-0.5 [facility] Comment on above: Performed By: #### C BC, BMP, PT, PTT ####[address] Creatinine [Mass/volume] in Serum or PlasmaOrdered By: Ketty Brand on 10-11-2023 Creatinine [Mass/Vol] 0.77 mg/dL Normal 0.60-1.20 [facility] Comment on above: Performed By: #### C BC, BMP, PT, PTT ####[place] [id number] [facility] ECG 12 lead ECGon 10-11-2023 ECG 12 lead ECG Normal [facility] Erythrocyte distribution wid th [Ratio] by Automated countOrdered By: Ketty Brand on 10-11-2023 Erythrocyte distribution width (RBC) [Ratio] 14.2 % Normal 11.9-15.3 [facility] Comment on above: Performed By: #### C BC, BMP, PT, PTT ####[place] [id number] [facility] Erythrocytes [#/volume] in B lood by Automated countOrdered By: Ketty Brand on 10-11-2023 RBC (Bld) [#/Vol] 4.87 10*6/uL Normal 3.60-5.00 [facility] Comment on above: Performed By: #### C BC, BMP, PT, PTT ####[place] [id number] [place] Glucose Poct Glucometerson 1 12-12-2022 Commemt1 Glu2: Cleaned Meter Normal [facility] Comment on above: Result Comment: PERF ORMED BY:[address] [place], [place] [phone] MEDICAL DIRECTORMELODY WHEELER M.D. Performed By: #### G LUEVIE ####Point of Care testing, Glucose [Mass/Vol] 384 mg/dL Normal [facility] Comment on above: Result Comment: [place] Glucose Reference Range is dependent on time and content of last meal. Glucose of more than 200 mg/dL in a nonstressed, ambulatory subject supports the diagnosis of Diabetes Mellitus. Performed By: #### G OTONIEL ####Point of Care testing, Glucose [Mass/volume] in Ser um or PlasmaOrdered By: Ketty Brand on 10-11-2023 Glucose [Mass/Vol] 418 mg/dL High 70-100 [facility] Comment on above: ADA recommended refe rence rangeRandom Glucose Reference Range is dependent on time and content of last meal. Glucose of more than 200 mg/dL in a nonstressed, ambulatory subject supports the diagnosis of Diabetes Mellitus. Result Comment: [place] Glucose Reference Range is dependent on time and content of last meal. Glucose of more than 200 mg/dL in a nonstressed, ambulatory subject supports the diagnosis of Diabetes Mellitus. ADA recommended reference range Performed By: #### C BC, BMP, PT, PTT ####[facility] [place] [address] [place] Hematocrit [Volume Fraction] of Blood by Automated countOrdered By: Ketty Brand on 10-11-2023 Hematocrit (Bld) [Volume fraction] 44.1 % Normal 34.0-46.4 [facility] Comment on above: Performed By: #### C BC, BMP, PT, PTT ####[facility] [place] [address] [facility] Hemoglobin [Mass/volume] in BloodOrdered By: Ketty Brand on 10-11-2023 Hemoglobin (Bld) [Mass/Vol] 14.8 g/dL Normal 11.8-15.4 [facility] Comment on above: Performed By: #### C BC, BMP, PT, PTT ####[place] [address] INR in Platelet poor plasma by Coagulation assayOrdered By: Ketty Brand on 10-11-2023 INR Coag (PPP) [Relative time] 1.0 {INR} Normal [facility] Comment on above: INR Therapeutic Rang e [...] valves: 3 - 4.5 Performed By: #### C BC, BMP, PT, PTT ####[address] Leukocytes [#/volume] correc seferino for nucleated erythrocytes in Blood by Automated counOrdered By: Ketty Brand on 10-11-2023 WBC corrected for nucl RBC Auto (Bld) [#/Vol] 10.1 10*3/uL 3.8-11.6 [facility] Leukocytes [#/volume] in Blo od by Automated countOrdered By: Ketty Brand on 10-11-2023 WBC (Bld) [#/Vol] 10.1 10*3/uL Normal 3.8-11.6 [facility] Comment on above: Performed By: #### C BC, BMP, PT, PTT ####[address] Lymphocytes [#/volume] in Bl ood by Automated countOrdered By: Ketty Brand on 10-11-2023 Lymphocytes (Bld) [#/Vol] 2.2 10*3/uL Normal 1.00-4.8 [facility] Comment on above: Performed By: #### C ROCCO, BMP, PT, PTT ####[place] [address] Lymphocytes/100 leukocytes i n Blood by Automated countOrdered By: Ketty Brand on 10-11-2023 Lymphocytes/100 WBC (Bld) 21.3 % Normal . [facility] Comment on above: Performed By: #### C ROCCO, BMP, PT, PTT ####[address] MCH [Entitic mass] by Automa seferino countOrdered By: Ketty Brand on 10-11-2023 MCH (RBC) [Entitic mass] 30.4 pg Normal 24.7-34.3 [facility] Comment on above: Performed By: #### C ROCCO, TONY, PT, PTT ####[address] MCHC Auto (RBC) [Mass/Vol]Or dered By: Ketty Brand on 10-11-2023 MCHC (RBC) [Mass/Vol] 33.6 g/dL 32.0-35.0 [facility] MCV [Entitic volume] by Auto mated countOrdered By: Ketty Brand on 10-11-2023 MCV (RBC) [Entitic vol] 90.5 fL Normal 80-100 [facility] Comment on above: Performed By: #### C ROCCO, BMP, PT, PTT ####[address] Monocyte distribution width [Entitic volume] in Blood by AutomatedOrdered By: Ketty Brand on 10-11-2023 Monocyte distribution width Auto (Bld) [Entitic vol] 17.73 % 0.00-20.00 [facility] Neutrophils [#/volume] in Bl ood by Automated countOrdered By: Ketty Brand on 10-11-2023 Neutrophils (Bld) [#/Vol] 6.9 10*3/uL Normal 1.8-7.7 [facility] Comment on above: Performed By: #### C BC, BMP, PT, PTT ####[place] [address] No Panel InformationOrdered By: Ketty Brand on 10-11-2023 Estimated GFR (CKD-EPI) > 60.0 mL/Min [facility] Creatinine Clearance (Chem N/A [facility] Nucleated erythrocytes [Pres ence] in Blood by Automated countOrdered By: Ketty Brand on 10-11-2023 Nucleated RBC Auto Ql (Bld) 0.1 /100{WBC} 0-0.5 [facility] Partial Thromboplastin Timeo n 10-11-2023 aPTT Coag (Bld) [Time] 32.0 s Normal 25.1-36.5 [facility] Comment on above: Result Comment: A he matocrit value greater than 55% may lead to inaccurate results in coagulation testing. Patients having hematocrit values >55% require a special collection tube for coagulation studies. Please contact the laboratory at [phone] for redraw instructions.PERFORMED BY:[place] [address] [address] [place], [place] [phone] MEDICAL DIRECTORMELODY WHEELER M.D. Performed By: #### C BC, BMP, PT, PTT ####[place] [id number] [place] [id number] [facility] Platelet mean volume [Entiti c volume] in Blood by Automated countOrdered By: Ketty Brand on 10-11-2023 Platelet mean volume (Bld) [Entitic vol] 8.4 fL Normal 6.3-10.7 [facility] Comment on above: Performed By: #### C BC, BMP, PT, PTT ####[address] Platelets [#/volume] in Bloo d by Automated countOrdered By: Ketty Brand on 10-11-2023 Platelets (Bld) [#/Vol] 323 10*3/uL Normal 150-450 [facility] Comment on above: Performed By: #### C BC, BMP, PT, PTT ####[place] [address] [place] [address] [facility] Potassium [Moles/volume] in Serum or PlasmaOrdered By: Ketty Brand on 10-11-2023 Potassium [Moles/Vol] 4.5 mmol/L Normal 3.5-5.1 [facility] Comment on above: Performed By: #### C BC, BMP, PT, PTT ####[place] [address] [place] [address] [facility] Prothrombin time (PT)Ordered By: Ketty Brand on 10-11-2023 PT Coag (PPP) [Time] 12.3 s Normal 9.0-12.9 [facility] Comment on above: A hematocrit value g reater than 55% may lead to inaccurate results in coagulation testing. Patients having hematocrit values >55% require a special collection tube for coagulation studies. Please contact the laboratory at [phone] for redraw instructions. Result Comment: A he matocrit value greater than 55% may lead to inaccurate results in coagulation testing. Patients having hematocrit values >55% require a special collection tube for coagulation studies. Please contact the laboratory at [phone] for redraw instructions. Performed By: #### C BC, BMP, PT, PTT ####[place] [address] [place] [address] [facility] Serum or plasma anion gap de terminationOrdered By: Ketty Brand on 10-11-2023 Anion gap [Moles/Vol] 10.1 mmol/L Normal 6.0-15.0 [facility] Comment on above: Performed By: #### C BC, BMP, PT, PTT ####[address] [address] [facility] Sodium [Moles/volume] in Ser um or PlasmaOrdered By: Ketty Brand on 10-11-2023 Sodium [Moles/Vol] 133 mmol/L Low 136-145 [facility] Comment on above: Performed By: #### C BC, BMP, PT, PTT ####[place] [address] [place] [address] [facility] Type and Screenon 10-11-2023 ABO and Rh group Nom (Bld) Blood group O Rh(D) negative Normal [facility] Comment on above: Result Comment: PERF ORMED BY:[address] [place], [place] [phone] MEDICAL DIRECTORMELODY WHEELER M.D. Urea nitrogen [Mass/volume] in Serum or PlasmaOrdered By: Ketty Brand on 10-11-2023 Urea nitrogen [Mass/Vol] 11 mg/dL Normal 06-01 [facility] Comment on above: Performed By: #### C BC, BMP, PT, PTT ####[address] [address] [facility] XR chest 1Von 10-11-2023 XR chest 1V Normal [facility] XR hip RT min 2V(w/wo pelvis )*on 10-11-2023 XR hip RT min 2V(w/wo pelvis)* Normal [facility] XR knee RT 2Von 10-11-2023 XR knee RT 2V Normal [facility] Urine Cultureon 09-08-2023 Bacteria identified Cx Nom (U) Normal [facility] Comment on above: Performed By: #### C UU ####[address] [address] [facility] Urine culture routineOrdered By: Mica Hook on 09-08-2023 Bacteria identified Cx Nom (U) bacilli - 2 Days [facility] XR elbow LT 2Von 02-16-2023 XR elbow LT 2V [facility] [employer] Other XR elbow LT 2V [facility] [employer] Other XR elbow LT 2V [facility] [employer] Other XR elbow [place] 2[place] [address] No rt [employer] Other XR elbow LT 2V XRay Report [employer] Other XR elbow LT 2V Signed [employer] Other XR elbow LT 2V Patient: Palmer Palmer MR#: [id number] [employer] Other XR elbow LT 2V 13 [employer] Other XR elbow LT 2V : 1940 Acct:[id number] [employer] Other XR elbow LT 2V Age/Sex: 83 / F ADM Date: 02/16/23 [employer] Other XR elbow LT 2V Loc: SOXD Room: Type : [facility] [employer] Other XR elbow LT 2V Attending Dr: Radha Mccauley MD [employer] Other XR elbow LT 2V Copies to: Uma Mccauley MD [employer] Other XR elbow LT 2V Ordering Provider: Uma Mccauley MD [employer] Other XR elbow LT 2V Date of Service: 02/16/23 [employer] Other XR elbow LT 2V XR/XR elbow LT 2V: Nondisplaced fracture of neck of left radius, [employer] Other XR elbow LT 2V subsequent enc [employer] Other XR elbow LT 2V LEFT ELBOW - 2 views [employer] Other XR elbow LT 2V CLINICAL HISTORY: Follow-up left radial neck fracture [employer] Other XR elbow LT 2V COMPARISON: Left elb ow 01/06/2023 [employer] Other XR elbow LT 2V FINDINGS: [employer] Other XR elbow LT 2V Radial neck fracture unchanged in alignment with interval sclerosis suggestive of healing response. [employer] Other XR elbow LT 2V No new fractures. Mi ld degenerative change. No joint effusion. [employer] Other XR elbow LT 2V X R/XR elbow LT 2V [employer] Other XR elbow LT 2V IMPRESSION: [employer] Other XR elbow LT 2V HEALING RADIAL NECK FRACTURE. [employer] Other XR elbow LT 2V Impression dictated by: Anthony Benson Jr., D.O.02/16/2023 12:21 PM [employer] Other XR elbow LT 2V Dictation Location: [facility]--15 [employer] Other XR elbow LT 2V Transcribed By: CHEKO 02/16/23 [facility] [employer] Other XR elbow LT 2V Dictated By: Anthony Benson Jr DO 02/16/[address] [facility] [employer] Other XR elbow LT 2V Signed By: [employer] Other XR elbow LT 2V 02/16/23 [facility] [employer] Other XR hand LT min 3V*on 023 XR hand LT min 3V* XR/XR hand LT min 3V*: Nondisplaced fracture of neck of left radius, [employer] Other XR hand LT min 3V* LEFT HAND - 4 views [employer] Other XR hand LT min 3V* REASON FOR EXAM: Follow-up mallet fracture [employer] Other XR hand LT min 3V* COMPARISON: Left dasilva d 01/06/2023 [employer] Other XR hand LT min 3V* Splint is seen invol ving the fifth digit. The patient's distal phalanx fracture of the fifth digit [employer] Other XR hand LT min 3V* appears grossly unchanged in alignment and healing compared to the prior study. No additional [employer] Other XR hand LT min 3V* fractures are seen. Mild degenerative changes involving the DIP joints particularly involving the [employer] Other XR hand LT min 3V* second and third DIP joints. Carpus demonstrates degenerative change. No bony erosions. [employer] Other XR hand LT min 3V* X R/XR hand LT min 3V* [employer] Other XR hand LT min 3V* NO SIGNIFICANT WALKER E IN THE DIGIT FRACTURE FINDINGS COMPARED TO THE PRIOR STUDY. [employer] Other XR hand LT min 3V* Impression dictated by: Anthony Benosn Jr., Jordi02/16/2023 12:24 PM [employer] Other XR hand LT min 3V* Transcribed By: PWS 02/16/23 1224 [employer] Other XR hand LT min 3V* Dictated By: Anthony Benson Jr, DO 02/16/23 1221 [employer] Other XR hand LT min 3V* 02/16/23 1224 [facility] [employer] Other Office Visit (Cardiology)on 01-14-2023 Follow-up visit [...] Release Levothy (more content not included)... Normal [email or web address] Tobacco Screening.on 023 Adult depression screening assessment No [facility] 250 DO Work Phone: Fall risk assessment b) One or more fall s in the last year [facility] 250 DO Work Phone: Tobacco use status [facility] b) No M [facility] 250 DO Work Phone: XR elbow LT 2Von 01-06-2023 XR elbow LT 2V [facility] [employer] Other XR elbow LT 2V [facility] [employer] Other XR elbow LT 2V [facility] [employer] Other [place]R elbow [place] [address] No rt [employer] Other XR elbow LT 2V XRay Report [employer] Other XR elbow LT 2V Signed [employer] Other XR elbow LT 2V Patient: Palmer Palmer MR#: [id number] [employer] Other XR elbow LT 2V 13 [employer] Other XR elbow LT 2V : 1940 Acct:[id number] [employer] Other XR elbow LT 2V Age/Sex: 82 / F ADM Date: 01/06/23 [employer] Other XR elbow LT 2V Loc: SOXD Room: Type : [facility] [employer] Other XR elbow LT 2V Attending Dr: Radha Mccauley MD [employer] Other XR elbow LT 2V Copies to: Uma Mccauley MD [employer] Other XR elbow LT 2V Ordering Provider: Uma Mccauley MD [employer] Other XR elbow LT 2V Date of Service: 01/06/23 [employer] Other XR elbow LT 2V XR/XR elbow LT 2V: Closed nondisplaced fracture of neck of left radius, [employer] Other XR elbow LT 2V initial [employer] Other XR elbow LT 2V XR elbow LT 2V 023 9:36 AM [employer] Other XR elbow LT 2V SIGNS AND SYMPTOMS: Status post left radial neck fracture, follow-up [employer] Other XR elbow LT 2V PROTOCOL: Frontal an d lateral radiographs of the left elbow [employer] Other XR elbow LT 2V COMPARISON: 12/18/2022 [employer] Other XR elbow LT 2V FINDINGS: [employer] Other XR elbow LT 2V There is redemonstra tion of a minimally displaced fracture of the neck of the radius without intra- [employer] Other XR elbow LT 2V articular extension. No change in alignment. Healing remains incomplete. No significant joint [employer] Other XR elbow LT 2V effusion. No disloca tion or subluxation. [employer] Other XR elbow LT 2V X R/XR elbow LT 2V [employer] Other XR elbow LT 2V IMPRESSION: [employer] Other XR elbow LT 2V Similar incompletely healed fracture traversing the radial neck without change in alignment. [employer] Other XR elbow LT 2V Impression dictated by: Tomasz Lrener M.D.01/06/2023 2:02 PM [employer] Other XR elbow LT 2V Dictation Location: [place] [address] [employer] Other XR elbow LT 2V Transcribed By: CHEKO 01/06/23 [facility] [employer] Other XR elbow LT 2V Dictated By: Tomasz Lerner II, MD 01/06/23 [facility] [employer] Other XR elbow LT 2V Signed By: [employer] Other XR elbow LT 2V 01/06/23 [facility] [employer] Other XR hand LT min 3V*on 023 XR hand LT min 3V* XR/XR hand LT min 3V*: Closed nondisplaced fracture of phalanx of left [employer] Other XR hand LT min 3V* joaquín Cano [employer] Other XR hand LT min 3V* XR hand LT min 3V* 01/06/2023 9:36 AM [employer] Other XR hand LT min 3V* SIGNS AND SYMPTOMS: Follow-up left fifth digit fracture [employer] Other XR hand LT min 3V* PROTOCOL: Frontal, lateral, and oblique radiographs of the left hand [employer] Other XR hand LT min 3V* There is a minimally displaced fracture along the dorsal aspect of the ascending distal phalanx of [employer] Other XR hand LT min 3V* the fifth digit with intra-articular extension. There is no change in alignment. Healing remains [employer] Other XR hand LT min 3V* incomplete. There is mild fixed flexion deformity of the distal interphalangeal joint of the fifth [employer] Other XR hand LT min 3V* digit similar to the prior exam. There is narrowing of the distal interphalangeal joints throughout. [employer] Other XR hand LT min 3V* There is a tiny radiopaque foreign body along the tip of the second digit similar to the prior exam. [employer] Other XR hand LT min 3V* X R/XR hand LT min 3V* [employer] Other XR hand LT min 3V* Unchanged fracture a t the dorsal aspect of the base of the fifth distal phalanx. [employer] Other XR hand LT min 3V* Similar flexion deformity of the distal interphalangeal joint of the fifth digit without change in [employer] Other XR hand LT min 3V* alignment. [employer] Other XR hand LT min 3V* Impression dictated by: Tomasz Lerner M.D.01/06/2023 2:[address] [facility] [employer] Other XR hand LT min 3V* Transcribed By: PWS 01/06/[address] [facility] [employer] Other XR hand LT min 3V* Dictated By: Tomasz Lerner II, MD 01/06/[address] [facility] [employer] Other XR hand LT min 3V* 01/06/23 1405 [facility] [employer] Other CT CSPINE WO CONon CT CSPINE [...] by: GRADY PARKER Date: 2022-12-18 13:[address] [facility] CT HEAD WO CONon 12-18-2022 CT [...] GRADY PARKER Date: 2022-12-18 13:39 Normal [facility] CULTURE URINEon 11-25-2022 CULTURE URINE Isolate [...] F Trimethoprim/Sulfamethox azole <=20 S F Normal [facility] Comment on above: Performed By: #### U RCX ####[facility] [id number] [place] [address]Dr. Grace Walker CBC AUTO DIFFon 11-23-2022 BASO # 0.1 103/ul Normal 0.0-0.[address] [facility] Comment on above: Performed By: #### C BC #### [facility] [address] [place] [address] [address] Grace Walker Basophils/100 WBC (Bld) 0.8 % Normal 0.2-2.0 [facility] Comment on above: Performed By: #### C BC #### [facility] [address] [place] [address] [address] Grace Walker EO # 0.1 103/ul Normal 0.0-0.[address] [facility] Comment on above: Performed By: #### C BC #### [facility] [address] [place] [address] Dr. Grace Walker Eosinophils/100 WBC (Bld) 1.1 % Normal 0.9-7.[address] [facility] Comment on above: Performed By: #### C BC #### [facility] [address] [place] [address] Dr. Grace Walker Erythrocyte distribution width (RBC) [Ratio] 13.4 % Normal 11.0-15.[address] [facility] Comment on above: Performed By: #### C BC #### [facility] [address] [place] [address] Dr. Grace Walkre Hematocrit (Bld) [Volume fraction] 48.6 % Critically high 36.0-48.[address] [facility] Comment on above: Performed By: #### C BC #### [facility] [address] [place] [address] Dr. Grace Walker Hemoglobin (Bld) [Mass/Vol] 15.9 g/dL Normal 12.0-16.[address] [facility] Comment on above: Performed By: #### C BC #### [facility] [address] [place] [address] Dr. Grace Walker IG # 0.14 10e3/ul Critically high 0.00-0.03 [facility] Comment on above: Performed By: #### C BC #### [facility] [address] [place] [address] Dr. Grace Walker IG % 1.2 % Critically high 0.0-0.5 [facility] Comment on above: Performed By: #### C BC #### [facility] [address] [place] [address] Dr. Grace Walker LYMPH # 1.8 103/ul Normal 1.2-3.8 [facility] Comment on above: Performed By: #### C BC #### [facility] [address] [place] [address] Dr. Grace Walker Lymphocytes/100 WBC (Bld) 15.9 % Critically low 20.5-60.[address] [facility] Comment on above: Performed By: #### C BC #### [facility] [address] [place] [address] Dr. Grace Walker MANUAL DIFF REQ NO Normal [facility] Comment on above: Performed By: #### C BC #### [facility] [address] [place] [address] Dr. Grace Walker MCH (RBC) [Entitic mass] 29.8 pg Normal 26.7-34.[address] [facility] Comment on above: Performed By: #### C BC #### [facility] [address] [place] [address] Dr. Grace Walker MCHC (RBC) [Mass/Vol] 32.7 g/dL Normal 29.9-35.[address] [facility] Comment on above: Performed By: #### C BC #### [facility] [address] [place] [address] Dr. Grace Walker MCV (RBC) [Entitic vol] 91.0 fL Normal 81.0-99.0 [facility] Comment on above: Performed By: #### C BC #### [facility] [address] [place] [address] Dr. Grace Walker MONO # 1.0 103/ul Critically high 0.3-0.8 [facility] Comment on above: Performed By: #### C BC #### [facility] [address] [place] [address] Dr. Grace Walker Monocytes/100 WBC (Bld) 8.8 % Normal 1.7-12.0 [facility] Comment on above: Performed By: #### C BC #### [facility] [address] [place] [address] Dr. Grace Walker NEUT # 8.2 103/ul Critically high 1.4-6.5 [facility] Comment on above: Performed By: #### C BC #### [facility] [address] [place] [address] Dr. Grace Walker Neutrophils/100 WBC (Bld) 72.2 % Normal 43.0-75.[address] [facility] Comment on above: Performed By: #### C BC #### [facility] [address] [place] [address] [address] Grace Walker Platelet mean volume (Bld) [Entitic vol] 9.6 fL Normal 9.5-13.[address] [facility] Comment on above: Performed By: #### C BC #### [facility] [address] [place] [address] [address] Grace Walker PLT 268 103/ul Normal 150-450 [facility] Comment on above: Performed By: #### C BC #### [facility] [address] [place] [address] [address] Grace Walker RBC 5.34 106/ul Normal 4.20-5.[address] [facility] Comment on above: Performed By: #### C BC #### [facility] [address] [place] [address] [address] Grace Walker WBC 11.3 103/ul Critically high 4.0-11.0 [facility] Comment on above: Performed By: #### C BC #### [facility] [address] [place] [address] Dr. Grace Walker GLYCOHEMOGLOBIN A1Con 2022 ADA RECOMMENDATION SEE BELOW Normal [facility] Comment on above: Result Comment: ADA RECOMMENDED LIMIT 4.0 - 6.0 ADA THERAPEUTIC TARGET < 7.0 ACTION SUGGESTED > 7.0 Performed By: #### A 1C ####[facility] [address] [place] [address]Dr. Grace Walker Glucose [Mass/Vol] 192 mg/dL Normal [facility] Comment on above: Performed By: #### A 1C ####[facility] [address] [place] [address]Dr. Grace Walker HbA1c (Bld) [Mass fraction] 8.3 % Critically high 4.5-6.[address] [facility] Comment on above: Performed By: #### A 1C ####[facility] [address] [place] [address]Dr. Grace Walker MICROALBUMIN, RAND URon 11-08 mALB 12.6 mg/L Normal <=30.[address] [facility] Comment on above: Performed By: #### M ALBR #### [facility] [address] [place] [address] [address] Grace Walker PROF 14(COMP METB)on 023 Albumin [Mass/Vol] 3.4 g/dL Normal 3.4-5.0 [facility] Comment on above: Performed By: #### C MP #### [facility] [address] [place] [address] [address] Grace Walker Albumin/Globulin [Mass ratio] 0.9 {ratio} Normal [facility] Comment on above: Performed By: #### C MP #### [facility] [address] [place] [address] [address] Grace Walker ALP [Catalytic activity/Vol] 82 U/L Normal 46-[address] [facility] Comment on above: Performed By: #### C MP #### [facility] [address] [place] [address] [address] Grace Walker ALT [Catalytic activity/Vol] 11 U/L Critically low 14-[address] [facility] Comment on above: Performed By: #### C MP #### [facility] [address] [place] [address] [address] Grace Walker Anion gap [Moles/Vol] 11.6 mmol/L Normal [facility] Comment on above: Performed By: #### C MP #### [facility] [address] [place] [address] [address] Grace Walker AST [Catalytic activity/Vol] 13 U/L Critically low 15-[address] [facility] Comment on above: Performed By: #### C MP #### [facility] [address] [place] [address] [address] Grace Walker Bilirubin [Mass/Vol] 0.6 mg/dL Normal 0.2-1.[address] [facility] Comment on above: Performed By: #### C MP #### [facility] [address] [place] [address] [address] Grace Walker Calcium [Mass/Vol] 9.0 mg/dL Normal 8.5-10.1 [facility] Comment on above: Performed By: #### C MP #### [facility] [address] [place] [address] [address] Grace Walker Chloride [Moles/Vol] 101 mmol/L Normal 98-[address] [facility] Comment on above: Performed By: #### C MP #### [facility] [address] [place] [address] [address] Grace Walker CO2 [Moles/Vol] 27.5 mmol/L Normal 21.0-32.0 [facility] Comment on above: Performed By: #### C MP #### [facility] [address] [place] [address] Dr. Grace Walker Creatinine [Mass/Vol] 0.95 mg/dL Normal 0.55-1.[address] [facility] Comment on above: Performed By: #### C MP #### [facility] [address] [place] [address] Dr. Grace Walker EGFR-AF JAPANESE >60 Normal >=60 [facility] Comment on above: Performed By: #### C MP #### [facility] [address] [place] [address] Dr. Grace Walker EGFR-NON AF JAPANESE 56 mL/min/1.73m2 Critically low >=[address] [facility] Comment on above: Performed By: #### C MP #### [facility] [address] [place] [address] [address] Grace Walker Globulin (S) [Mass/Vol] 3.7 g/dL Normal [facility] Comment on above: Performed By: #### C MP #### [facility] [address] [place] [address] Dr. Grace Walker Glucose [Mass/Vol] 225 mg/dL Critically high 74-106 [facility] Comment on above: Performed By: #### C MP #### [facility] [address] [place] [address] Dr. Grace Walker Potassium [Moles/Vol] 4.1 mmol/L Normal 3.5-5.[address] [facility] Comment on above: Performed By: #### C MP #### [facility] [address] [place] [address] [address] Grace Walker Protein [Mass/Vol] 7.1 g/dL Normal 6.4-8.2 [facility] Comment on above: Performed By: #### C MP #### [facility] [address] [place] [address] [address] Grace Walker Sodium [Moles/Vol] 136 mmol/L Normal 136-145 [facility] Comment on above: Performed By: #### C MP #### [facility] [address] [place] [address] [address] Grace Walker Urea nitrogen [Mass/Vol] 18.0 mg/dL Normal 7.0-18.[address] [facility] Comment on above: Performed By: #### C MP #### [facility] [address] [address] [address] Grace Walker Urea nitrogen/Creatinine [Mass ratio] 18.9 mg/mg Normal [facility] Comment on above: Performed By: #### C MP #### [facility] [address] [address] [address] Grace Walker CBC AUTO DIFFon 03-02-2022 BASO # 0.1 103/ul Normal 0.0-0.[address] [facility] Comment on above: Performed By: #### C BC ####[facility] [address] [place] [address]Dr. Grace Walker Basophils/100 WBC (Bld) 1.5 % Normal 0.2-2.0 [facility] Comment on above: Performed By: #### C BC ####[facility] [address] [place] [address]Dr. Grace Walker EO # 0.2 103/ul Normal 0.0-0.[address] [facility] Comment on above: Performed By: #### C BC ####[facility] [address] [place] [address]Dr. Grace Walker Eosinophils/100 WBC (Bld) 2.6 % Normal 0.9-7.0 [facility] Comment on above: Performed By: #### C BC ####[facility] [address] [place] [address]Dr. Grace Walker Erythrocyte distribution width (RBC) [Ratio] 13.8 % Normal 11.0-15.0 [facility] Comment on above: Performed By: #### C BC ####[facility] [address] [place], [place] [address]Dr. Grace Walker Hematocrit (Bld) [Volume fraction] 46.3 % Normal 36.0-48.0 [facility] Comment on above: Performed By: #### C BC ####[facility] [address] [place], [place] [address]Dr. Grace Walker Hemoglobin (Bld) [Mass/Vol] 14.8 g/dL Normal 12.0-16.0 [facility] Comment on above: Performed By: #### C BC ####[facility] [address] [place], [place] [address]Dr. Grace Walker IG # 0.17 10e3/ul Critically high 0.00-0.03 [facility] Comment on above: Performed By: #### C BC ####[facility] [address] [place], [place] [address]Dr. Grace Walker IG % 2.1 % Critically high 0.0-0.5 [facility] Comment on above: Performed By: #### C BC ####[facility] [address] [place], [place] [address]Dr. Grace Walker LYMPH # 2.5 103/ul Normal 1.2-3.8 [facility] Comment on above: Performed By: #### C BC ####[facility] [address] [place], [place] [address]Dr. Grace Walker Lymphocytes/100 WBC (Bld) 30.4 % Normal 20.5-60.0 [facility] Comment on above: Performed By: #### C BC ####[facility] [address] [place], [place] [address]Dr. Iraisvanessa Walker MANUAL DIFF REQ NO Normal [facility] Comment on above: Performed By: #### C BC ####[facility] [address] [place] [address]Dr. Grace Deep MCH (RBC) [Entitic mass] 29.9 pg Normal 26.7-34.[address] [facility] Comment on above: Performed By: #### C BC ####[facility] [address] [place] [address]Dr. Grace Deep MCHC (RBC) [Mass/Vol] 32.0 g/dL Normal 29.9-35.[address] [facility] Comment on above: Performed By: #### C BC ####[facility] [address] [place] [address]Dr. rGace Deep MCV (RBC) [Entitic vol] 93.5 fL Normal 81.0-99.0 [facility] Comment on above: Performed By: #### C BC ####[facility] [address] [place] [address]Dr. rGace Walker MONO # 1.0 103/ul Critically high 0.3-0.8 [facility] Comment on above: Performed By: #### C BC ####[facility] [address] [place] [address]Dr. Grace Walker Monocytes/100 WBC (Bld) 11.7 % Normal 1.7-12.0 [facility] Comment on above: Performed By: #### C BC ####[facility] [address] [place] [address]Dr. Grace Walker NEUT # 4.2 103/ul Normal 1.4-6.[address] [facility] Comment on above: Performed By: #### C BC ####[facility] [address] [place] [address]Dr. Grace Walker Neutrophils/100 WBC (Bld) 51.7 % Normal 43.0-75.[address] [facility] Comment on above: Performed By: #### C BC ####[facility] [address] [place], [place] [address]DrCharu Walker Platelet mean volume (Bld) [Entitic vol] 10.5 fL Normal 9.5-13.[address] [facility] Comment on above: Performed By: #### C BC ####[facility] [address] [place] [address]Dr. Grace Walker PLT 278 103/ul Normal 150-450 [facility] Comment on above: Performed By: #### C BC ####[facility] [address] [place] [address]DrCharu Walker RBC 4.95 106/ul Normal 4.20-5.[address] [facility] Comment on above: Performed By: #### C BC ####[facility] [address] [place] [address]DrCharu Walker WBC 8.1 103/ul Normal 4.0-11.[address] [facility] Comment on above: Performed By: #### C BC ####[facility] [address] [place] [address]DrCharu Walker DIRECT LDLon 03-02-2022 Cholesterol in LDL [Mass/Vol] 223 mg/dL Normal [facility] Comment on above: Performed By: #### D LDL, LIPID, CMP ####[facility] [address] [place] [address]Dr. Grace Walker DLDL NORMAL SEE BELOW Normal [facility] Comment on above: Result Comment: <100 mg/dl OPTIMAL 100 - 129 mg/dl NEAR OR ABOVE OPTIMAL 130 - 159 mg/dl BORDERLINE HIGH 160 - 189 mg/dl HIGH >190 mg/dl VERY HIGH Performed By: #### D LDL, LIPID, CMP ####[facility] [address] [place] [address]Dr. Grace aWlker GLYCOHEMOGLOBIN A1Con 2021 ADA RECOMMENDATION SEE BELOW Normal [facility] Comment on above: Result Comment: ADA RECOMMENDED LIMIT 4.0 - 6.0 ADA THERAPEUTIC TARGET < 7.0 ACTION SUGGESTED > 7.0 Performed By: #### A 1C #### [facility] [address] [address] [address] Grace Walker Glucose [Mass/Vol] 223 mg/dL Normal [facility] Comment on above: Performed By: #### A 1C #### [facility] [address] [place], [place] [address] Dr. Grace Walker HbA1c (Bld) [Mass fraction] 9.4 % Critically high 4.5-6.[address] [facility] Comment on above: Performed By: #### A 1C #### [facility] [id number] Grace Walker LIPID PROFILEon 03-02-2022 CHOL-HDL RATIO NORM SEE BELOW Normal [facility] Comment on above: Result Comment: 3.3 - 4.4 LOW RISK 4.4 - 7.1 AVERAGE RISK 7.1 - 11.0 MODERATE RISK >11.0 HIGH RISK Performed By: #### D LDL, LIPID, CMP #### [facility] [address] [address] [address] Grace Walker Cholesterol [Mass/Vol] 374 mg/dL Critically high <=[address] [facility] Comment on above: Performed By: #### D LDL, LIPID, CMP #### [facility] [address] [place], [place] [address] Dr. Grace Walker Cholesterol in HDL [Mass/Vol] 43 mg/dL Normal 40-[address] [facility] Comment on above: Performed By: #### D LDL, LIPID, CMP #### [facility] [address] [place], [place] [address] Dr. Grace Walker Cholesterol.total/Consuelo sterol in HDL [Mass ratio] 8.7 {ratio} Normal [facility] Comment on above: Performed By: #### D LDL, LIPID, CMP #### [facility] [address] [place], [place] [address] Dr. Grace Walker HDL NORMAL > or = 60 mg/dl - LO W CARDIOVASCULAR RISK <40 mg/dl - HIGH CARDIOVASCULAR RISK Normal [facility] Comment on above: Performed By: #### D LDL, LIPID, CMP #### [facility] [address] [place], [place] [address] Dr. Grace Walker Triglyceride [Mass/Vol] 461 mg/dL Critically high <=[address] [facility] Comment on above: Performed By: #### D LDL, LIPID, CMP #### [facility] [address] [address] [address] Grace Walker VLDL CALC 92.2 mg/dL Normal [facility] Comment on above: Performed By: #### D LDL, LIPID, CMP #### [facility] [address] [address] [address] Grace Walker PROF 14(COMP METB)on 022 Albumin [Mass/Vol] 3.2 g/dL Critically low 3.4-5.0 [facility] Comment on above: Performed By: #### D LDL, LIPID, CMP #### [facility] [address] [place] [address] Dr. Grace Walker Albumin/Globulin [Mass ratio] 0.9 {ratio} Normal [facility] Comment on above: Performed By: #### D LDL, LIPID, CMP #### [facility] [address] [place] [address] Dr. Grace Walker ALP [Catalytic activity/Vol] 89 U/L Normal 46-[address] [facility] Comment on above: Performed By: #### D LDL, LIPID, CMP #### [facility] [address] [place] [address] Dr. Grace Walker ALT [Catalytic activity/Vol] 13 U/L Critically low 14-[address] [facility] Comment on above: Performed By: #### D LDL, LIPID, CMP #### [facility] [address] [address] [address] Grace Walker Anion gap [Moles/Vol] 11.5 mmol/L Normal Th [facility] Comment on above: Performed By: #### D LDL, LIPID, CMP #### [facility] [address] [place] [address] Dr. Grace Walker AST [Catalytic activity/Vol] 9 U/L Critically low 15-[address] [facility] Comment on above: Performed By: #### D LDL, LIPID, CMP #### [facility] [address] [place] [address] Dr. Graec Walker Bilirubin [Mass/Vol] 0.4 mg/dL Normal 0.2-1.[address] [facility] Comment on above: Performed By: #### D LDL, LIPID, CMP #### [facility] [address] [address] [address] Grace Walker Calcium [Mass/Vol] 8.7 mg/dL Normal 8.5-10.1 [facility] Comment on above: Performed By: #### D LDL, LIPID, CMP #### [facility] [address] [address] [address] Grace Walker Chloride [Moles/Vol] 101 mmol/L Normal 98-[address] [facility] Comment on above: Performed By: #### D LDL, LIPID, CMP #### [facility] [address] [place] [address] Dr. Grace Walker CO2 [Moles/Vol] 26.2 mmol/L Normal 21.0-32.0 [facility] Comment on above: Performed By: #### D LDL, LIPID, CMP #### [facility] [address] [place] [address] Dr. Grace Walker Creatinine [Mass/Vol] 1.26 mg/dL Critically high 0.55-1.[address] [facility] Comment on above: Performed By: #### D LDL, LIPID, CMP #### [facility] [address] [place] [address] Dr. Grace Walker EGFR-AF JAPANESE 49 mL/min/1.73m2 Critically low >=[address] [facility] Comment on above: Performed By: #### D LDL, LIPID, CMP #### [facility] [address] [place] [address] Dr. Grace Walker EGFR-NON AF JAPANESE 41 mL/min/1.73m2 Critically low >=[address] [facility] Comment on above: Performed By: #### D LDL, LIPID, CMP #### [facility] [address] [place] [address] Dr. Grace Walker Globulin (S) [Mass/Vol] 3.5 g/dL Normal T [facility] Comment on above: Performed By: #### D LDL, LIPID, CMP #### [facility] [address] [address] [address] Grace Walker Glucose [Mass/Vol] 196 mg/dL Critically high 74-106 T [facility] Comment on above: Performed By: #### D LDL, LIPID, CMP #### [facility] [address] [address] [address] Grace Walker Potassium [Moles/Vol] 4.7 mmol/L Normal 3.5-5.[address] [facility] Comment on above: Performed By: #### D LDL, LIPID, CMP #### [facility] [address] [address] [address] Grace Walker Protein [Mass/Vol] 6.7 g/dL Normal 6.1-8.2 [facility] Comment on above: Performed By: #### D LDL, LIPID, CMP #### [facility] [address] [address] [address] Grace Walker Sodium [Moles/Vol] 134 mmol/L Critically low 136-145 [facility] Comment on above: Performed By: #### D LDL, LIPID, CMP #### [facility] [address] [address] [address] Grace Walker Urea nitrogen [Mass/Vol] 18.0 mg/dL Normal 7.0-18.[address] [facility] Comment on above: Performed By: #### D LDL, LIPID, CMP #### [facility] [address] [address] [address] Grace Walker Urea nitrogen/Creatinine [Mass ratio] 14.3 mg/mg Normal [facility] Comment on above: Performed By: #### D LDL, LIPID, CMP #### [facility] [address] [address] [address] Grace Walker CULTURE URINEon 02-28-2022 CULTURE [...] F Trimethoprim/Sulfamethox azole <=20 S F Normal [facility] Comment on above: Performed By: #### U RCX ####[facility] [address] [place], [place] [address]TaCharu Grace Deep Tobacco Screening.on 022 Adult depression screening assessment No [facility] y 250 DO Work Phone: Fall risk assessment a) No falls within the last year [facility] y 250 DO Work Phone: Tobacco use status [facility]PH[facility] b) No M [facility] 250 DO Work Phone: BASIC METABOLIC PANELon Calcium mass conc 8.2 mg/dL Low 8.6-10.3 [facility] Comment on above: Order Comment: No: D o not add to previous draw Performed By: #### 0 0121, 38305, 66442 #### [facility] [address] [place] [address], [facility] Chloride molar conc 108 mmol/L High 98-107 [facility] Comment on above: Order Comment: No: D o not add to previous draw Performed By: #### 0 0121, 45108, 48875 #### [facility] [address] [place] [address], [place] CO2 molar conc 21 mmol/L Normal 21-31 [facility] Comment on above: Order Comment: No: D o not add to previous draw Performed By: #### 0 0121, 46703, 60526 #### [facility] [address] [place] [address], [place] Creatinine mass conc 0.43 mg/dL Low 0.60-1.20 [facility] Comment on above: Order Comment: No: D o not add to previous draw Performed By: #### 0 0121, 70836, 58782 #### [facility] [address] [place] [address], [facility] GFR/1.73 sq M predicted among blacks MDRD vol rate/area (S/P/Bld) mL/min/{1.73_m2} Normal >60 [facility] Comment on above: Order Comment: No: D o not add to previous draw Result Comment: Calc ulation may not be valid for patients over 70 years Performed By: #### 0 0121, 86539, 91937 #### [facility] [address] [place] [address], [facility] GFR/1.73 sq M predicted among non-blacks MDRD vol rate/area (S/P/Bld) mL/min/{1.73_m2} Normal >60 [facility] Comment on above: Order Comment: No: D o not add to previous draw Result Comment: Calc ulation may not be valid for patients over 70 years Performed By: #### 0 0121, 50516, 93007 #### [facility] [address] [place] [address], [facility] Glucose mass conc 148 mg/dL High 70-100 [facility] Comment on above: Order Comment: No: D o not add to previous draw Performed By: #### 0 0121, 20998, 95779 #### [facility] [address] [place] [address], [place] Potassium molar conc 3.7 mmol/L Normal 3.5-5.1 [facility] Comment on above: Order Comment: No: D o not add to previous draw Performed By: #### 0 0121, 14559, 44690 #### [facility] [address] [place] [address], [place] Sodium molar conc 137 mmol/L Normal 136-145 [facility] Comment on above: Order Comment: No: D o not add to previous draw Performed By: #### 0 0121, 28689, 29914 #### [facility] [address] [place] [address], [facility] Urea nitrogen mass conc 9 mg/dL Normal 7-25 T he [facility] Comment on above: Order Comment: No: D o not add to previous draw Performed By: #### 0 0121, 02477, 49141 #### [facility] [address] [place] [address], [facility] HEMOGLOBIN A1Con 12-16-2018 Hemoglobin A1c/Hemoglobin.total mass fraction (Bld) 7.5 % High 4.0-6.0 [facility] Comment on above: Order Comment: Yes: Add to Previous draw if able Performed By: #### 0 0121, 84847, 13404 #### [facility] [address] [place] [address], [facility] Hemoglobin A1c/Hemoglobin.total mass fraction (Bld) 169 mg/dL High 70-126 [facility] Comment on above: Order Comment: Yes: Add to Previous draw if able Performed By: #### 0 0121, 14073, 08276 #### [facility] [address] [place] [address], [facility] MAGNESIUM BLOODon 12-16-2018 Magnesium mass conc 1.9 mg/dL Normal 1.9-2.7 [facility] Comment on above: Order Comment: No: D o not add to previous draw Performed By: #### 0 0121, 01392, 45077 #### [facility] [address] [place] [address], [place] POC GLUCOSE LABon 12-16-2018 Glucose mass conc 205 mg/dL High 70-100 [facility] Comment on above: Performed By: #### 0 0121, 23928, 85912 #### [facility] [address] [place] [address], [place] Glucose mass conc 147 mg/dL High 70-100 [facility] Comment on above: Performed By: #### 0 0121, 56986, 65956 #### [facility] [address] [place] [address], [place] BASIC METABOLIC PANELon 02-0 Calcium mass conc 8.2 mg/dL Low 8.6-10.3 [facility] Comment on above: Order Comment: No: D o not add to previous draw Performed By: #### 0 0121, 63050, 17126 #### [facility] [address] [place] [address], [place] Chloride molar conc 106 mmol/L Normal 98-107 [facility] Comment on above: Order Comment: No: D o not add to previous draw Performed By: #### 0 0121, 58369, 01229 #### [facility] [address] [place] [address], [place] CO2 molar conc 26 mmol/L Normal 21-31 [facility] Comment on above: Order Comment: No: D o not add to previous draw Performed By: #### 0 0121, 47952, 82482 #### [facility] [address] [place] [address], [facility] Creatinine mass conc 0.50 mg/dL Low 0.60-1.20 [facility] Comment on above: Order Comment: No: D o not add to previous draw Performed By: #### 0 0121, 22010, 32703 #### [facility] [address] [place] [address], [place] GFR/1.73 sq M predicted among blacks MDRD vol rate/area (S/P/Bld) mL/min/{1.73_m2} Normal >60 [facility] Comment on above: Order Comment: No: D o not add to previous draw Result Comment: Calc ulation may not be valid for patients over 70 years Performed By: #### 0 0121, 56095, 39756 #### [facility] [address] [place] [address], [place] GFR/1.73 sq M predicted among non-blacks MDRD vol rate/area (S/P/Bld) mL/min/{1.73_m2} Normal >60 [facility] Comment on above: Order Comment: No: D o not add to previous draw Result Comment: Calc ulation may not be valid for patients over 70 years Performed By: #### 0 0121, 10695, 96176 #### [facility] [address] [place] [address], [facility] Glucose mass conc 183 mg/dL High 70-100 [facility] Comment on above: Order Comment: No: D o not add to previous draw Performed By: #### 0 0121, 72935, 98371 #### [facility] [address] [place] [id number], [facility] Potassium molar conc 3.3 mmol/L Low 3.5-5.1 [facility] Comment on above: Order Comment: No: D o not add to previous draw Performed By: #### 0 0121, 85461, 00007 #### [facility] [address] [place] [address], [facility] Sodium molar conc 139 mmol/L Normal 136-145 [facility] Comment on above: Order Comment: No: D o not add to previous draw Performed By: #### 0 0121, 66115, 06112 #### [facility] [address] [place] [address], [facility] Urea nitrogen mass conc 10 mg/dL Normal 7-25 T he [facility] Comment on above: Order Comment: No: D o not add to previous draw Performed By: #### 0 0121, 91788, 26795 #### [facility] [address] [place] [address], [facility] CBC W/DIFFon 12-15-2018 ABS BASOPHILS 0.1 10*3/uL Normal 0.0-0.2 [facility] Comment on above: Order Comment: No: D o not add to previous draw Performed By: #### 0 0121, 80005, 30668 #### [facility] [address] [facility] [place] [address], [facility] ABS IMM GRANS 0.1 10*3/uL Normal 0.0-0.2 [facility] Comment on above: Order Comment: No: D o not add to previous draw Performed By: #### 0 0121, 81012, 80682 #### [facility] [address] [facility] [place] [address], [facility] ABS NEUTROPHILS 14.5 10*3/uL High 1.6-7.6 [facility] Comment on above: Order Comment: No: D o not add to previous draw Performed By: #### 0 0121, 45109, 61516 #### [facility] [address] [facility] [place] [address], [facility] Basophils #/vol (Bld) 0.3 % Normal 0.0-1.0 [facility] Comment on above: Order Comment: No: D o not add to previous draw Performed By: #### 0 0121, 09094, 12958 #### [facility] [address] [facility] [place] [address], [facility] Eosinophils #/vol (Bld) 0.1 10*3/uL Normal 0.0-0.5 [facility] Comment on above: Order Comment: No: D o not add to previous draw Performed By: #### 0 0121, 17360, 22932 #### [facility] [address] [facility] [place] [address], [facility] Eosinophils/100 WBC (Bld) 0.7 % Normal 0.0-6.0 [facility] Comment on above: Order Comment: No: D o not add to previous draw Performed By: #### 0 0121, 24488, 99113 #### [facility] [address] [facility] [place] [address], [facility] Erythrocyte distribution width Ratio (RBC) 12.7 % Normal 11.5-15.0 [facility] Comment on above: Order Comment: No: D o not add to previous draw Performed By: #### 0 0121, 60185, 82488 #### [facility] [address] [facility] Hematocrit Volume Fraction (Bld) 41.1 % Normal 36.0-45.0 [facility] Comment on above: Order Comment: No: D o not add to previous draw Performed By: #### 0 0121, 40837, 79389 #### [facility] [address] [facility] Hemoglobin mass conc (Bld) 13.6 g/dL Normal 12.0-15.0 [facility] Comment on above: Order Comment: No: D o not add to previous draw Performed By: #### 0 0121, 97733, 59766 #### [facility] [address] [facility] IMMATURE GRANS 0.6 % Normal 0.0-1.0 [facility] Comment on above: Order Comment: No: D o not add to previous draw Performed By: #### 0 0121, 95657, 61142 #### [facility] [address] [facility]. [address] Lymphocytes #/vol (Bld) 2.0 10*3/uL Normal 1.2-4.0 [facility] Comment on above: Order Comment: No: D o not add to previous draw Performed By: #### 0 0121, 85826, 70767 #### [facility] [address] [facility] [place] [address], [facility] Lymphocytes/100 WBC (Bld) 10.8 % Low 20.0-45.0 [facility] Comment on above: Order Comment: No: D o not add to previous draw Performed By: #### 0 0121, 87384, 22406 #### [facility] [address] [place] [address], [facility] MCH Entitic mass (RBC) 29.1 pg Normal 27.0-33.0 Th e [facility] Comment on above: Order Comment: No: D o not add to previous draw Performed By: #### 0 0121, 08067, 88712 #### [facility] [address] MCHC mass conc (RBC) 33.1 g/dL Normal 32.0-35.0 [facility] Comment on above: Order Comment: No: D o not add to previous draw Performed By: #### 0 0121, 24675, 43662 #### [facility] [address] MCV Entitic volume (RBC) 88.0 fL Normal 82.0-98.0 [facility] Comment on above: Order Comment: No: D o not add to previous draw Performed By: #### 0 0121, 06783, 82910 #### [facility] [address] [facility] [address] Monocytes #/vol (Bld) 1.4 10*3/uL High 0.1-1.0 Th e [facility] Comment on above: Order Comment: No: D o not add to previous draw Performed By: #### 0 0121, 43834, 51824 #### [facility] [address] [facility]. [address] MONOS 7.8 % Normal 5.0-12.0 [facility] Comment on above: Order Comment: No: D o not add to previous draw Performed By: #### 0 0121, 51549, 29694 #### [facility] [address] [place] [place] [address], [facility] Neutrophils/100 WBC (Bld) 79.8 % High 40.0-72.0 [facility] Comment on above: Order Comment: No: D o not add to previous draw Performed By: #### 0 0121, 25487, 23083 #### [facility] [address] Nucleated RBC/100 WBC Ratio (Bld) 0 % Normal 0-0 [facility] Comment on above: Order Comment: No: D o not add to previous draw Performed By: #### 0 0121, 26679, 58210 #### [facility] [address] [place] [address], [facility] PLAT CNT 244 10*3/uL Normal 150-400 [facility] Comment on above: Order Comment: No: D o not add to previous draw Performed By: #### 0 0121, 63619, 52723 #### [facility] [address] [facility] [place] [address], [facility] RBC #/vol (Bld) 4.67 10*6/uL Normal 3.80-5.00 [facility] Comment on above: Order Comment: No: D o not add to previous draw Performed By: #### 0 0121, 26972, 44728 #### [facility] [address] [facility] [place] [address], [facility] WBC #/vol (Bld) 18.22 10*3/uL High 4.00-10.60 [facility] Comment on above: Order Comment: No: D o not add to previous draw Performed By: #### 0 0121, 64245, 16277 #### [facility] [address] [facility] [place] [address], [facility] ABS BASOPHILS 0.1 10*3/uL Normal 0.0-0.2 [facility] Comment on above: Order Comment: No: D o not add to previous draw Performed By: #### 0 0121, 75136, 27327 #### [facility] [address] [facility] [place] [address], [facility] ABS IMM GRANS 0.1 10*3/uL Normal 0.0-0.2 [facility] Comment on above: Order Comment: No: D o not add to previous draw Performed By: #### 0 0121, 01887, 98348 #### [facility] [address] [place] [address], [facility] ABS NEUTROPHILS 8.5 10*3/uL High 1.6-7.6 [facility] Comment on above: Order Comment: No: D o not add to previous draw Performed By: #### 0 0121, 02965, 15879 #### [facility] [address] [place] [address], [facility] Basophils #/vol (Bld) 0.5 % Normal 0.0-1.0 [facility] Comment on above: Order Comment: No: D o not add to previous draw Performed By: #### 0 0121, 27544, 78466 #### [facility] [address] [place] [address], [facility] Eosinophils #/vol (Bld) 0.2 10*3/uL Normal 0.0-0.5 [facility] Comment on above: Order Comment: No: D o not add to previous draw Performed By: #### 0 0121, 94488, 71602 #### [facility] [address] [place] [address], [facility] Eosinophils/100 WBC (Bld) 1.7 % Normal 0.0-6.0 [facility] Comment on above: Order Comment: No: D o not add to previous draw Performed By: #### 0 0121, 88716, 04453 #### [facility] [address] [facility] [place] [address], [facility] Erythrocyte distribution width Ratio (RBC) 12.7 % Normal 11.5-15.0 [facility] Comment on above: Order Comment: No: D o not add to previous draw Performed By: #### 0 0121, 57234, 33582 #### [facility] [address] [place] [address], [facility] Hematocrit Volume Fraction (Bld) 39.5 % Normal 36.0-45.0 [facility] Comment on above: Order Comment: No: D o not add to previous draw Performed By: #### 0 0121, 00012, 10386 #### [facility] [address] [facility] [place] [address], [facility] Hemoglobin mass conc (Bld) 13.4 g/dL Normal 12.0-15.0 [facility] Comment on above: Order Comment: No: D o not add to previous draw Performed By: #### 0 0121, 11881, 75951 #### [facility] [address] [facility] [place] [address], [facility] IMMATURE GRANS 0.7 % Normal 0.0-1.0 [facility] Comment on above: Order Comment: No: D o not add to previous draw Performed By: #### 0 0121, 11987, 15418 #### [facility] [address] [facility]. [address] Lymphocytes #/vol (Bld) 2.1 10*3/uL Normal 1.2-4.0 [facility] Comment on above: Order Comment: No: D o not add to previous draw Performed By: #### 0 0121, 69469, 01152 #### [facility] [address] [facility] [place] [address], [facility] Lymphocytes/100 WBC (Bld) 17.7 % Low 20.0-45.0 [facility] Comment on above: Order Comment: No: D o not add to previous draw Performed By: #### 0 0121, 82665, 18743 #### [facility] [address] [facility] [place] [address], [facility] MCH Entitic mass (RBC) 29.7 pg Normal 27.0-33.0 Th e [facility] Comment on above: Order Comment: No: D o not add to previous draw Performed By: #### 0 0121, 66400, 93499 #### [facility] [address] [place] [id number], [facility] MCHC mass conc (RBC) 33.9 g/dL Normal 32.0-35.0 [facility] Comment on above: Order Comment: No: D o not add to previous draw Performed By: #### 0 0121, 49222, 13750 #### [facility] [address] [facility] [address] MCV Entitic volume (RBC) 87.6 fL Normal 82.0-98.0 [facility] Comment on above: Order Comment: No: D o not add to previous draw Performed By: #### 0 0121, 71775, 71978 #### [facility] [address] [facility] [place] [address], [facility] Monocytes #/vol (Bld) 0.9 10*3/uL Normal 0.1-1.0 Th e [facility] Comment on above: Order Comment: No: D o not add to previous draw Performed By: #### 0 0121, 44837, 28242 #### [facility] [address] [facility]. [address] MONOS 7.3 % Normal 5.0-12.0 [facility] Comment on above: Order Comment: No: D o not add to previous draw Performed By: #### 0 0121, 55539, 68558 #### [facility] [address] [facility] [address] Neutrophils/100 WBC (Bld) 72.1 % High 40.0-72.0 [facility] Comment on above: Order Comment: No: D o not add to previous draw Performed By: #### 0 0121, 91852, 85406 #### [facility] [address] [facility] [place] [address], [facility] Nucleated RBC/100 WBC Ratio (Bld) 0 % Normal 0-0 [facility] Comment on above: Order Comment: No: D o not add to previous draw Performed By: #### 0 0121, 21392, 47834 #### [facility] [address] [place] [address], [facility] PLAT CNT 233 10*3/uL Normal 150-400 [facility] Comment on above: Order Comment: No: D o not add to previous draw Performed By: #### 0 0121, 62305, 77419 #### [facility] [address] [place] [address], [facility] RBC #/vol (Bld) 4.51 10*6/uL Normal 3.80-5.00 [facility] Comment on above: Order Comment: No: D o not add to previous draw Performed By: #### 0 0121, 84433, 48707 #### [facility] [address] [place] [address], [facility] WBC #/vol (Bld) 11.74 10*3/uL High 4.00-10.60 [facility] Comment on above: Order Comment: No: D o not add to previous draw Performed By: #### 0 0121, 37493, 78670 #### [facility] [address] [place] [id number], [facility] MAGNESIUM BLOODon 12-15-2018 Magnesium mass conc 1.8 mg/dL Low 1.9-2.7 [facility] Comment on above: Order Comment: No: D o not add to previous draw Performed By: #### 0 0121, 40515, 12916 #### [facility] [address] [place] [address], [facility] POC GLUCOSE LABon 12-15-2018 Glucose mass conc 208 mg/dL High 70-100 [facility] Comment on above: Performed By: #### 0 0121, 87198, 84475 #### [facility] [address] [place] [address], [facility] Glucose mass conc 156 mg/dL High 70-100 [facility] Comment on above: Performed By: #### 0 0121, 54931, 83982 #### [facility] [address] [place] [address], [place] Glucose mass conc 218 mg/dL High 70-100 [facility] Comment on above: Performed By: #### 0 0121, 98220, 21570 #### [facility] [address] [place] [address], [facility] Glucose mass conc 178 mg/dL High 70-100 [facility] Comment on above: Performed By: #### 0 0121, 36060, 83407 #### [facility] [address] [place] [address], [facility] BASIC METABOLIC PANELon - Calcium mass conc 8.3 mg/dL Low 8.6-10.3 [facility] Comment on above: Order Comment: No: D o not add to previous draw Performed By: #### 0 0121, 41128, 03738 #### [facility] [address] [place] [address], [facility] Chloride molar conc 106 mmol/L Normal 98-107 [facility] Comment on above: Order Comment: No: D o not add to previous draw Performed By: #### 0 0121, 59068, 38890 #### [facility] [address] [place] [address], [facility] CO2 molar conc 24 mmol/L Normal 21-31 [facility] Comment on above: Order Comment: No: D o not add to previous draw Performed By: #### 0 0121, 36578, 76815 #### [facility] [address] [place] [address], [facility] Creatinine mass conc 0.51 mg/dL Low 0.60-1.20 [facility] Comment on above: Order Comment: No: D o not add to previous draw Performed By: #### 0 0121, 20945, 68572 #### [facility] [address] [place] [address], [facility] GFR/1.73 sq M predicted among blacks MDRD vol rate/area (S/P/Bld) mL/min/{1.73_m2} Normal >60 [facility] Comment on above: Order Comment: No: D o not add to previous draw Result Comment: Calc ulation may not be valid for patients over 70 years Performed By: #### 0 0121, 57992, 75846 #### [facility] [address] [place] [address], [place] GFR/1.73 sq M predicted among non-blacks MDRD vol rate/area (S/P/Bld) mL/min/{1.73_m2} Normal >60 [facility] Comment on above: Order Comment: No: D o not add to previous draw Result Comment: Calc ulation may not be valid for patients over 70 years Performed By: #### 0 0121, 74294, 17540 #### [facility] [address] [place] [address], [facility] Glucose mass conc 176 mg/dL High 70-100 [facility] Comment on above: Order Comment: No: D o not add to previous draw Performed By: #### 0 0121, 02451, 79175 #### [facility] [address] [place] [address], [place] Potassium molar conc 3.6 mmol/L Normal 3.5-5.1 [facility] Comment on above: Order Comment: No: D o not add to previous draw Performed By: #### 0 0121, 53998, 93357 #### [facility] [address] [place] [address], [place] Sodium molar conc 137 mmol/L Normal 136-145 [facility] Comment on above: Order Comment: No: D o not add to previous draw Performed By: #### 0 0121, 81163, 01175 #### [facility] [address] [place] [address], [place] Urea nitrogen mass conc 11 mg/dL Normal 7-25 T [facility] Comment on above: Order Comment: No: D o not add to previous draw Performed By: #### 0 0121, 95020, 01632 #### [facility] [address] CBC W/DIFFon 12-14-2018 ABS BASOPHILS 0.1 10*3/uL Normal 0.0-0.2 [facility] Comment on above: Order Comment: No: D o not add to previous draw Performed By: #### 0 0121, 60985, 91354 #### [facility] [address] [place] [address], [facility] ABS IMM GRANS 0.1 10*3/uL Normal 0.0-0.2 [facility] Comment on above: Order Comment: No: D o not add to previous draw Performed By: #### 0 0121, 38466, 86440 #### [facility] [address] [place] [address], [facility] ABS NEUTROPHILS 7.6 10*3/uL Normal 1.6-7.6 [facility] Comment on above: Order Comment: No: D o not add to previous draw Performed By: #### 0 0121, 26147, 79296 #### [facility] [address] Basophils #/vol (Bld) 0.4 % Normal 0.0-1.0 [facility] Comment on above: Order Comment: No: D o not add to previous draw Performed By: #### 0 0121, 09037, 38349 #### [facility] [address] [place] [address], [facility] Eosinophils #/vol (Bld) 0.1 10*3/uL Normal 0.0-0.5 [facility] Comment on above: Order Comment: No: D o not add to previous draw Performed By: #### 0 0121, 77676, 70008 #### [facility] [address] [place] [address], [facility] Eosinophils/100 WBC (Bld) 0.6 % Normal 0.0-6.0 [facility] Comment on above: Order Comment: No: D o not add to previous draw Performed By: #### 0 0121, 40383, 15444 #### [facility] [address] Erythrocyte distribution width Ratio (RBC) 12.7 % Normal 11.5-15.0 [facility] Comment on above: Order Comment: No: D o not add to previous draw Performed By: #### 0 0121, 99633, 71567 #### [facility] [address] [facility] [address] Hematocrit Volume Fraction (Bld) 41.5 % Normal 36.0-45.0 [facility] Comment on above: Order Comment: No: D o not add to previous draw Performed By: #### 0 0121, 57708, 29874 #### [facility] [address] [facility] [address] Hemoglobin mass conc (Bld) 14.2 g/dL Normal 12.0-15.0 [facility] Comment on above: Order Comment: No: D o not add to previous draw Performed By: #### 0 0121, 88923, 57155 #### [facility] [address] [facility]. [address] IMMATURE GRANS 0.5 % Normal 0.0-1.0 [facility] Comment on above: Order Comment: No: D o not add to previous draw Performed By: #### 0 0121, 85546, 94292 #### [facility] [address] [facility]. [address] Lymphocytes #/vol (Bld) 2.4 10*3/uL Normal 1.2-4.0 [facility] Comment on above: Order Comment: No: D o not add to previous draw Performed By: #### 0 0121, 78290, 88489 #### [facility] [address] Lymphocytes/100 WBC (Bld) 21.5 % Normal 20.0-45.0 [facility] Comment on above: Order Comment: No: D o not add to previous draw Performed By: #### 0 0121, 85359, 90832 #### [facility] [address] MCH Entitic mass (RBC) 29.6 pg Normal 27.0-33.0 Th e [facility] Comment on above: Order Comment: No: D o not add to previous draw Performed By: #### 0 0121, 58415, 36438 #### [facility] [address] MCHC mass conc (RBC) 34.2 g/dL Normal 32.0-35.0 [facility] Comment on above: Order Comment: No: D o not add to previous draw Performed By: #### 0 0121, 52929, 62567 #### [facility] [address] [facility] [address] MCV Entitic volume (RBC) 86.6 fL Normal 82.0-98.0 [facility] Comment on above: Order Comment: No: D o not add to previous draw Performed By: #### 0 0121, 30028, 50024 #### [facility] [address] [facility]. [address] Monocytes #/vol (Bld) 1.1 10*3/uL High 0.1-1.0 Th e [facility] Comment on above: Order Comment: No: D o not add to previous draw Performed By: #### 0 0121, 51796, 40707 #### [facility] [address] [facility]. [address] MONOS 9.4 % Normal 5.0-12.0 [facility] Comment on above: Order Comment: No: D o not add to previous draw Performed By: #### 0 0121, 50560, 32874 #### [facility] [address] Neutrophils/100 WBC (Bld) 67.6 % Normal 40.0-72.0 [facility] Comment on above: Order Comment: No: D o not add to previous draw Performed By: #### 0 0121, 51815, 00461 #### [facility] [address] [place] [address], [facility] Nucleated RBC/100 WBC Ratio (Bld) 0 % Normal 0-0 [facility] Comment on above: Order Comment: No: D o not add to previous draw Performed By: #### 0 0121, 27556, 83970 #### [facility] [address] [place] [address], [facility] PLAT CNT 231 10*3/uL Normal 150-400 [facility] Comment on above: Order Comment: No: D o not add to previous draw Performed By: #### 0 0121, 70296, 08817 #### [facility] [address] [place] [address], [facility] RBC #/vol (Bld) 4.79 10*6/uL Normal 3.80-5.00 [facility] Comment on above: Order Comment: No: D o not add to previous draw Performed By: #### 0 0121, 53889, 10020 #### [facility] [address] [place] [address], [facility] WBC #/vol (Bld) 11.22 10*3/uL High 4.00-10.60 [facility] Comment on above: Order Comment: No: D o not add to previous draw Performed By: #### 0 0121, 41741, 57952 #### [facility] [address] [place] [id number], [facility] EEG Reporton 12-14-2018 EEG Report Name: Heidi Palmer [facility] MR#: [id number] Age: 78 Physician: Date: 12/13/2018 Lab#: [id number] Date of : 1940 Patient Type: I NEURODIAGNOSTIC SERVICES REPORT [address], [place] [address] Board of the [place] [employer] Accredited Laboratory REFERRING PHYSICIAN: Dr. [...] Rdz M.D. Date Trans: 12/14/2018 04:23 A/debra [id number] Normal [facility] MAGNESIUM BLOODon 12-14-2018 Magnesium mass conc 2.0 mg/dL Normal 1.9-2.7 [facility] Comment on above: Order Comment: No: D o not add to previous draw Performed By: #### 0 8843, 68190, 11060 #### [facility] [address] [place] [address], [facility] POC GLUCOSE LABon 12-14-2018 Glucose mass conc 166 mg/dL High 70-100 [facility] Comment on above: Performed By: #### 0 0121, 91725, 76667 #### [facility] [address] [place] [address], [facility] Glucose mass conc 225 mg/dL High 70-100 [facility] Comment on above: Performed By: #### 0 0121, 02027, 30042 #### [facility] [address] [place] [address], [facility] Glucose mass conc 206 mg/dL High 70-100 [facility] Comment on above: Performed By: #### 0 [id number], [id number] #### [facility] [address] [place] [address], [facility] Glucose mass conc 156 mg/dL High 70-100 [facility] Comment on above: Performed By: #### 0 [id number], [id number] #### [facility] [address] URIC ACID URon 12-14-2018 Urate mass conc 48 mg/dL Normal [facility] Comment on above: Order Comment: No: D o not add to previous draw Result Comment: Ther e are no established reference values for random urine specimens Performed By: #### 0 [id number], [id number], [id number] #### [facility] [address] [address] *RAPID FLU AANDB BY MOLECULA Chidi 12-13-2018 *RAPID FLU AANDB BY MOLECULAR Clinical Report: (D) Specimen: NASAL SWAB Collected: 12/13/2018 01:15 Status: Final Last Updated: 12/13/2018 01:59 FLUA RNA (Final) Negative FLUB RNA (Final) Negative Normal [facility] Comment on above: Performed By: #### 3 1018 #### [facility] [address] *URINE CULTUREon 12-13-2018 Bacteria identified Cx Nom (U) Clinical Report: (D) Specimen: URINE Collected: 12/13/2018 00:25 Status: Final Last Updated: 12/15/2018 08:06 CULT RES (Final) <10,000 Cfu/Ml No Significant Growth Normal [facility] Comment on above: Performed By: #### 0 0121, [id number], 08558 #### [facility] [address] [place] [address], [facility] AMMONIA BLOODon 12-13-2018 Ammonia mass conc (P) 35 umol/L Normal 16-53 [facility] Comment on above: Performed By: #### 2 1408 #### [facility] [address] BASIC METABOLIC PANELon Calcium mass conc 8.6 mg/dL Normal 8.6-10.3 [facility] Comment on above: Order Comment: No: D o not add to previous draw Performed By: #### 2 1408 #### [facility] [address] [facility] [place] [address], [facility] Chloride molar conc 103 mmol/L Normal 98-107 [facility] Comment on above: Order Comment: No: D o not add to previous draw Performed By: #### 2 1408 #### [facility] [address] [facility] [place] [address], [facility] CO2 molar conc 21 mmol/L Normal 21-31 [facility] Comment on above: Order Comment: No: D o not add to previous draw Performed By: #### 2 1408 #### [facility] [address] [facility] [place] [address], [facility] Creatinine mass conc 0.47 mg/dL Low 0.60-1.20 [facility] Comment on above: Order Comment: No: D o not add to previous draw Performed By: #### 2 1408 #### [facility] [address] [place] [address], [facility] GFR/1.73 sq M predicted among blacks MDRD vol rate/area (S/P/Bld) mL/min/{1.73_m2} Normal >60 [facility] Comment on above: Order Comment: No: D o not add to previous draw Result Comment: Calc ulation may not be valid for patients over 70 years Performed By: #### 2 1408 #### [facility] [address] [place] [address], [place] GFR/1.73 sq M predicted among non-blacks MDRD vol rate/area (S/P/Bld) mL/min/{1.73_m2} Normal >60 [facility] Comment on above: Order Comment: No: D o not add to previous draw Result Comment: Calc ulation may not be valid for patients over 70 years Performed By: #### 2 1408 #### [facility] [address] [place] [address], [place] Glucose mass conc 186 mg/dL High 70-100 [facility] Comment on above: Order Comment: No: D o not add to previous draw Performed By: #### 2 1408 #### [facility] [address] [place] [address], [place] Potassium molar conc 3.5 mmol/L Normal 3.5-5.1 [facility] Comment on above: Order Comment: No: D o not add to previous draw Performed By: #### 2 1408 #### [facility] [address] [place] [address], [place] Sodium molar conc 135 mmol/L Low 136-145 [facility] Comment on above: Order Comment: No: D o not add to previous draw Performed By: #### 2 1408 #### [facility] [address] [place] [address], [place] Urea nitrogen mass conc 10 mg/dL Normal 7-25 [facility] Comment on above: Order Comment: No: D o not add to previous draw Performed By: #### 2 1408 #### [facility] [address] [place] [address], [place] C REACTIVE PROTEINon 019 CRP mass conc 5.9 mg/L Normal 0.0-7.0 [facility] Comment on above: Order Comment: Yes: Add to Previous draw if able Performed By: #### 0 0121, 87425, 16632 #### [facility] [address] CBC W/DIFFon 12-13-2018 ABS BASOPHILS 0.0 10*3/uL Normal 0.0-0.2 [facility] Comment on above: Order Comment: No: D o not add to previous draw Performed By: #### 2 1408 #### [facility] [address] ABS NEUTROPHILS 13.4 10*3/uL High 1.6-7.6 [facility] Comment on above: Order Comment: No: D o not add to previous draw Performed By: #### 2 1408 #### [facility] [address] Basophils #/vol (Bld) 0.0 % Normal 0.0-1.0 [facility] Comment on above: Order Comment: No: D o not add to previous draw Performed By: #### 2 1408 #### [facility] [address] Eosinophils #/vol (Bld) 0.0 10*3/uL Normal 0.0-0.5 [facility] Comment on above: Order Comment: No: D o not add to previous draw Performed By: #### 2 1408 #### [facility] [address] Eosinophils/100 WBC (Bld) 0.0 % Normal 0.0-6.0 [facility] Comment on above: Order Comment: No: D o not add to previous draw Performed By: #### 2 1408 #### [facility] [address] Erythrocyte distribution width Ratio (RBC) 12.7 % Normal 11.5-15.0 [facility] Comment on above: Order Comment: No: D o not add to previous draw Performed By: #### 2 1408 #### [facility] [address] [place] [address], [facility] Hematocrit Volume Fraction (Bld) 43.2 % Normal 36.0-45.0 [facility] Comment on above: Order Comment: No: D o not add to previous draw Performed By: #### 2 1408 #### [facility] [address] [place] [address], [facility] Hemoglobin mass conc (Bld) 14.6 g/dL Normal 12.0-15.0 [facility] Comment on above: Order Comment: No: D o not add to previous draw Performed By: #### 2 1408 #### [facility] [address] [place] [address], [facility] Lymphocytes #/vol (Bld) 0.9 10*3/uL Low 1.2-4.0 [facility] Comment on above: Order Comment: No: D o not add to previous draw Performed By: #### 2 1408 #### [facility] [address] [facility] [place] [address], [facility] Lymphocytes/100 WBC (Bld) 5.5 % Low 20.0-45.0 [facility] Comment on above: Order Comment: No: D o not add to previous draw Performed By: #### 2 1408 #### [facility] [address] [place] [address], [facility] MCH Entitic mass (RBC) 29.1 pg Normal 27.0-33.0 [facility] Comment on above: Order Comment: No: D o not add to previous draw Performed By: #### 2 1408 #### [facility] [address] [place] [address], [facility] MCHC mass conc (RBC) 33.8 g/dL Normal 32.0-35.0 [facility] Comment on above: Order Comment: No: D o not add to previous draw Performed By: #### 2 1408 #### [facility] [address] MCV Entitic volume (RBC) 86.2 fL Normal 82.0-98.0 [facility] Comment on above: Order Comment: No: D o not add to previous draw Performed By: #### 2 1408 #### [facility] [address] [facility] [place] [address], [facility] Monocytes #/vol (Bld) 1.3 10*3/uL High 0.1-1.0 [facility] Comment on above: Order Comment: No: D o not add to previous draw Performed By: #### 2 1408 #### [facility] [address] [place] [address], [facility] MONOS 8.3 % Normal 5.0-12.0 [facility] Comment on above: Order Comment: No: D o not add to previous draw Performed By: #### 2 1408 #### [facility] [address] [facility] [place] [address], [facility] Neutrophils/100 WBC (Bld) 86.2 % High 40.0-72.0 [facility] Comment on above: Order Comment: No: D o not add to previous draw Performed By: #### 2 1408 #### [facility] [address] [facility]. [address] Nucleated RBC/100 WBC Ratio (Bld) 0 % Normal 0-0 [facility] Comment on above: Order Comment: No: D o not add to previous draw Performed By: #### 2 1408 #### [facility] [address] [facility] [place] [address], [facility] PLAT CNT 252 10*3/uL Normal 150-400 [facility] Comment on above: Order Comment: No: D o not add to previous draw Performed By: #### 2 1408 #### [facility] [address] [facility] [place] [address], [facility] RBC #/vol (Bld) 5.01 10*6/uL High 3.80-5.00 [facility] Comment on above: Order Comment: No: D o not add to previous draw Performed By: #### 2 1408 #### [facility] [address] [facility] [place] [address], [facility] WBC #/vol (Bld) 15.53 10*3/uL High 4.00-10.60 [facility] Comment on above: Order Comment: No: D o not add to previous draw Performed By: #### 2 1408 #### [facility] [address] [facility]. [address] ABS BASOPHILS 0.0 10*3/uL Normal 0.0-0.2 [facility] Comment on above: Performed By: #### 5 0103 #### [facility] [address] ABS IMM GRANS 0.1 10*3/uL Normal 0.0-0.2 [facility] Comment on above: Performed By: #### 5 0103 #### [facility] [address] ABS NEUTROPHILS 17.8 10*3/uL High 1.6-7.6 [facility] Comment on above: Performed By: #### 5 0103 #### [facility] [address] Basophils #/vol (Bld) 0.2 % Normal 0.0-1.0 [facility] Comment on above: Performed By: #### 5 0103 #### [facility] [address] Eosinophils #/vol (Bld) 0.0 10*3/uL Normal 0.0-0.5 [facility] Comment on above: Performed By: #### 5 0103 #### [facility] [address] Eosinophils/100 WBC (Bld) 0.0 % Normal 0.0-6.0 [facility] Comment on above: Performed By: #### 5 3 #### [facility] [address] Erythrocyte distribution width Ratio (RBC) 12.3 % Normal 11.5-15.0 [facility] Comment on above: Performed By: #### 3 #### [facility] [address] Hematocrit Volume Fraction (Bld) 44.2 % Normal 36.0-45.0 [facility] Comment on above: Performed By: #### 3 #### [facility] [address] Hemoglobin mass conc (Bld) 15.4 g/dL High 12.0-15.0 [facility] Comment on above: Performed By: #### 5 3 #### [facility] [address] IMMATURE GRANS 0.6 % Normal 0.0-1.0 [facility] Comment on above: Performed By: #### 5 3 #### [facility] [address] Lymphocytes #/vol (Bld) 1.8 10*3/uL Normal 1.2-4.0 [facility] Comment on above: Performed By: #### 5 3 #### [facility] [address] Lymphocytes/100 WBC (Bld) 8.9 % Low 20.0-45.0 [facility] Comment on above: Performed By: #### 102 #### [facility] [address] [facility]. [address] MCH Entitic mass (RBC) 29.4 pg Normal 27.0-33.0 [facility] e [facility] Comment on above: Performed By: #### 5 0103 #### [facility] [address] [facility] [address] MCHC mass conc (RBC) 34.8 g/dL Normal 32.0-35.0 [facility] Comment on above: Performed By: #### 5 0103 #### [facility] [address] MCV Entitic volume (RBC) 84.4 fL Normal 82.0-98.0 [facility] Comment on above: Performed By: #### 5 0103 #### [facility] [address] [facility]. [address] Monocytes #/vol (Bld) 0.9 10*3/uL Normal 0.1-1.0 Th e [facility] Comment on above: Performed By: #### 5 0103 #### [facility] [address] MONOS 4.1 % Low 5.0-12.0 [facility] Comment on above: Performed By: #### 5 3 #### [facility] [address] Neutrophils/100 WBC (Bld) 86.2 % High 40.0-72.0 [facility] Comment on above: Performed By: #### 5 0103 #### [facility] [address] Nucleated RBC/100 WBC Ratio (Bld) 0 % Normal 0-0 [facility] Comment on above: Performed By: #### 5 3 #### [facility] [address] [facility]. [address] PLAT CNT 265 10*3/uL Normal 150-400 [facility] Comment on above: Performed By: #### 5 0103 #### [address] RBC #/vol (Bld) 5.24 10*6/uL High 3.80-5.00 [facility] Comment on above: Performed By: #### 5 0103 #### [facility] [address] WBC #/vol (Bld) 20.63 10*3/uL High 4.00-10.60 [facility] Comment on above: Performed By: #### 5 0103 #### [address] CHEST AND LATERALon 12-13-19 19 CHEST AND LATERAL [facility] Department of Radiology [address] [place], [place] [id number] == Patient Name: HEIDI PALMER : 1940 Sex: F Age: Race: White Pt. Location: [facility] Patient Status: I Ordered Date: 12/12/2018 [...] findings. Electronically signed by:Sanju Peñaloza. Transcribed by: [email or web address], User Resident: DILAN VEGA Electronically Signed by: SANJU PEÑALOZA @ 12/13/2018 09:56 AM I personally read this/these film(s) with this resident Normal [facility] Comment on above: Order Comment: R/O P neumonia COMP METABOLIC PANELon 12-13 Albumin mass conc 3.5 g/dL Normal 3.5-5.7 [facility] Comment on above: Performed By: #### 0 0121, 29553, 52197 #### [facility] [address] [place] [address], [facility] ALKALINE PHOSPH 59 IU/L Normal 34-104 [facility] Comment on above: Performed By: #### 0 0121, 19841, 30101 #### [facility] [address] [place] [address], [place] ALT enzyme act/vol 8 U/L Normal 7-52 [facility] Comment on above: Performed By: #### 0 0121, 62174, 69886 #### [facility] [address] [place] [address], [place] AST enzyme act/vol 15 U/L Normal 13-39 [facility] Comment on above: Performed By: #### 0 0121, 53831, 11718 #### [facility] [address] [place] [address], [place] Bilirubin mass conc 0.8 mg/dL Normal 0.3-1.0 [facility] Comment on above: Performed By: #### 0 0121, 51892, 53460 #### [facility] [address] [place] [address], [place] Calcium mass conc 8.5 mg/dL Low 8.6-10.3 [facility] Comment on above: Performed By: #### 0 0121, 76699, 85654 #### [facility] [address] [place] [address], [place] Chloride molar conc 100 mmol/L Normal 98-107 [facility] Comment on above: Performed By: #### 0 0121, 80720, 00101 #### [facility] [address] [place] [address], [place] CO2 molar conc 21 mmol/L Normal 21-31 [facility] Comment on above: Performed By: #### 0 0121, 42336, 45020 #### [facility] [address] [place] [address], [place] Creatinine mass conc 0.50 mg/dL Low 0.60-1.20 [facility] Comment on above: Performed By: #### 0 0121, 57699, 45607 #### [facility] [address] [place] [address], [place] GFR/1.73 sq M predicted among blacks MDRD vol rate/area (S/P/Bld) mL/min/{1.73_m2} Normal >60 [facility] Comment on above: Result Comment: Calc ulation may not be valid for patients over 70 years Performed By: #### 0 0121, 96098, 75094 #### [facility] [address] [place] [address], [place] GFR/1.73 sq M predicted among non-blacks MDRD vol rate/area (S/P/Bld) mL/min/{1.73_m2} Normal >60 [facility] Comment on above: Result Comment: Calc ulation may not be valid for patients over 70 years Performed By: #### 0 0121, 56598, 82173 #### [facility] [address] [place] [address], [facility] Glucose mass conc 217 mg/dL High 70-100 [facility] Comment on above: Performed By: #### 0 0121, 65449, 52379 #### [facility] [address] [place] [id number], [facility] Potassium molar conc 3.5 mmol/L Normal 3.5-5.1 [facility] Comment on above: Performed By: #### 0 0121, 88350, 67345 #### [facility] [address] [place] [address], [facility] Protein mass conc 5.9 g/dL Low 6.0-8.3 [facility] Comment on above: Performed By: #### 0 0121, 89662, 37323 #### [facility] [address] [place] [address], [facility] Sodium molar conc 130 mmol/L Low 136-145 [facility] Comment on above: Performed By: #### 0 0121, 85775, 95138 #### [facility] [address] [place] [id number], [facility] Urea nitrogen mass conc 12 mg/dL Normal 7-25 T [facility] Comment on above: Performed By: #### 0 0121, 86866, 78495 #### [facility] [address] [place] [id number], [facility] CREATININE URINE RANDOMon Creatinine mass conc 59.0 mg/dL Normal [facility] Comment on above: Order Comment: Yes: Add to Previous draw if able Result Comment: Ther e are no established reference values for random urine specimens Performed By: #### 2 1408 #### [address] BRAIN PERFUSIONon 019 CT BRAIN PERFUSION [facility] Department of Radiology [address] [place] [id number] == Patient Name: HEIDI PALMER : 1940 Sex: F Age: Race: White Pt. Location: [facility] Patient Status: I Ordered Date: 12/12/2018 [...] findings. Electronically signed by:Phillip Clements. Transcribed by: [email or web address], User Resident: ELI GONZALES Electronically Signed by: PHILLIP CLEMENTS @ 12/13/2018 08:45 AM I personally read this/these film(s) with this resident Normal [facility] Comment on above: Order Comment: R/O C VA HIP LEFT 1 OR 2 VWS WITH PEL VISon 12-13-2018 HIP LEFT 1 OR 2 VWS WITH PELVIS [facility] Department of Radiology [address] [place] [address] == Patient Name: HEIDI PALMER : 1940 Sex: F Age: Race: White Pt. Location: [id number] Patient Status: I Ordered Date: 12/13/2018 10:30:00 [...] abnormality Electronically signed by:Dai Meehan. Transcribed by: [email or web address], User Resident: Electronically Signed by: DAI MEEHAN @ 12/13/2018 02:16 PM Normal [facility] Comment on above: Order Comment: R/O F X History and Physicalon 12-13 History and Physical MR#: [id number] [facility] Pt. Name: Heidi Palmer Admitted: 12/13/2018 Date of : 1940 Attending Physician: Alex Anne MD Room #: [id number] Discharge Date: HISTORY AND PHYSICAL CHIEF COMPLAINT: Altered mental status. HISTORY OF PRESENT ILLNESS: This patient is a 78 years old with past medical history of coronary artery disease, hypertension, and diabetes, who was sent from [facility] due to possible stroke. Her son who is the primary historian said she is totally confused and disoriented. He took her to [place] due to altered mental status. The son [...] think that she overtook her tramadol. In [place], they were concern about stroke; therefore, she was sent to [facility]. In our department, the patient is awake; however, she does not answer any questions. CTA of neck and brain were negative for anything acute. CT of the lumbar spine was negative. The patient was found to have a white blood count of 20.63. UA and chest x-ray were unremarkable at [place]; however, UA in our hospital was suggestive [...] stent 5 years ago. 5. Hypertension. 6. Jza-uhzhdnu-[id number] diabetes. 7. Hypothyroidism. PLAN: We will order [...] A Alex Anne MD Date Dict: 12/13/2018/01:12 A/Alex Anne MD Date Trans: 12/13/2018 01:34 A/debra [id number] Normal [facility] LACTATE BLOODon 12-13-2018 Lactate molar conc 0.8 mmol/L Normal 0.5-2.2 [facility] Comment on above: Order Comment: No: D o not add to previous draw Performed By: #### 1 0054 #### [facility] [address] [facility] [place] [address], [facility] MAGNESIUM BLOODon 12-13-2018 Magnesium mass conc 1.8 mg/dL Low 1.9-2.7 [facility] Comment on above: Order Comment: No: D o not add to previous draw Performed By: #### 2 1408 #### [facility] [address] [place] [address], [facility] OSMOLALITY BLOODon 9 Osmolality 288 mOsm/kg Normal 285-305 [facility] Comment on above: Performed By: #### 2 1408 #### [facility] [address] [place] [address], [facility] OSMOLALITY URINEon 9 Osmolality 641 mOsm/kg Normal 50-1400 [facility] Comment on above: Order Comment: Yes: Add to Previous draw if able Performed By: #### 2 1408 #### [facility] [address] [place] [address], [facility] POC GLUCOSE LABon 12-13-2018 Glucose mass conc 133 mg/dL High 70-100 [facility] Comment on above: Performed By: #### 0 0121, 41600, 16377 #### [facility] [address] [place] [address], [facility] Glucose mass conc 153 mg/dL High 70-100 [facility] Comment on above: Performed By: #### 0 0121, [id number], [id number] #### [facility] [address] [place] [address], [facility] Glucose mass conc 170 mg/dL High 70-100 [facility] Comment on above: Performed By: #### 2 1408 #### [facility] [address] [place] [address], [facility] PROCALCITONINon 12-13-2018 Protein mass conc 0.04 ng/mL Normal 0.00-0.10 [facility] Comment on above: Result Comment: Susp [...] initial PCT<0.5ng/mL Performed By: #### 0 0121, [id number], [id number] #### [facility] [address] [place] [address], [facility] SEDIMENTATION RATEon 019 SED RATE 0 mm/hr Normal 0-20 [facility] Comment on above: Performed By: #### 2 1408 #### [facility] [address] [facility] [address] SODIUM URINE RANDOMon 2018 Sodium molar conc (U) 102 mmol/L Normal [facility] Comment on above: Order Comment: Yes: Add to Previous draw if able Result Comment: Ther e are no established reference values for random urine specimens Performed By: #### 2 1408 #### [facility] [address] TSH3 WITH REFLEXon 9 T4 free mass conc 1.46 ng/dL Normal 0.71-1.85 [facility] Comment on above: Performed By: #### 0 0121, [id number], [id number] #### [facility] [address] [facility] [place] [address], [facility] TSH 3RD GENERATION 0.49 uIU/mL Normal 0.34-5.60 [facility] Comment on above: Performed By: #### 0 0121, [id number], [id number] #### [facility] [address] [place] [address], [facility] URINALYSIS REFLEXon 12-13-19 19 AMORPHOUS MANY Abnormal NONE SEEN [facility] Comment on above: Order Comment: Crite ashley for reflexing a culture was met. Urine Culture and sensitivity will be performed. Performed By: #### 3 0965 #### [facility] [address] [place] [address], [facility] Appearance Nom (U) CLOUDY Abnormal CLEAR [facility] Comment on above: Order Comment: Crite ashley for reflexing a culture was met. Urine Culture and sensitivity will be performed. Performed By: #### 3 0965 #### [facility] [address] [place] [address], [facility] Bilirubin mass conc Negative Normal NEGATIVE [facility] Comment on above: Order Comment: Crite ashley for reflexing a culture was met. Urine Culture and sensitivity will be performed. Performed By: #### 3 0965 #### [facility] [address] [place] [address], [facility] BLOOD SMALL Abnormal NEGATIVE [facility] Comment on above: Order Comment: Crite ashley for reflexing a culture was met. Urine Culture and sensitivity will be performed. Performed By: #### 3 0965 #### [facility] [address] [place] [address], [facility] Color Nom (U) YELLOW Normal YELLOW [facility] Comment on above: Order Comment: Crite ashley for reflexing a culture was met. Urine Culture and sensitivity will be performed. Performed By: #### 3 0965 #### [facility] [address] [place] [address], [place] EPIS OCC Normal FEW,OCC,NO NE SEEN [facility] Comment on above: Order Comment: Crite ashley for reflexing a culture was met. Urine Culture and sensitivity will be performed. Performed By: #### 3 0965 #### [facility] [address] [place] [address], [place] Glucose mass conc >=500 Abnormal NEGATIVE [facility] Comment on above: Order Comment: Crite ashley for reflexing a culture was met. Urine Culture and sensitivity will be performed. Performed By: #### 3 0965 #### [facility] [address] [place] [address], [facility] KETONE 20 mg/dL Abnormal NEGATIVE [facility] Comment on above: Order Comment: Crite ashley for reflexing a culture was met. Urine Culture and sensitivity will be performed. Performed By: #### 3 0965 #### [facility] [address] [place] [address], [facility] LEUK JAME LARGE Abnormal NEGATIVE [facility] Comment on above: Order Comment: Crite ashley for reflexing a culture was met. Urine Culture and sensitivity will be performed. Performed By: #### 3 0965 #### [facility] [address] [facility] [place] [address], [facility] Nitrite Ql (U) Negative Normal NEGATIVE [facility] Comment on above: Order Comment: Crite ashley for reflexing a culture was met. Urine Culture and sensitivity will be performed. Performed By: #### 3 0965 #### [facility] [address] [facility] [place] [address], [facility] pH (Bld) 6.0 Normal 5.0-8.0 [facility] Comment on above: Order Comment: Crite ashley for reflexing a culture was met. Urine Culture and sensitivity will be performed. Performed By: #### 3 0965 #### [facility] [address] [facility]. [address] Protein mass conc (U) Negative Normal NEGATIVE [facility] Comment on above: Order Comment: Crite ashley for reflexing a culture was met. Urine Culture and sensitivity will be performed. Performed By: #### 3 0965 #### [facility] [address] [facility] [place] [address], [facility] RBC #/vol (U) 11-20 Abnormal NONE SEEN [facility] Comment on above: Order Comment: Crite ashley for reflexing a culture was met. Urine Culture and sensitivity will be performed. Performed By: #### 3 0965 #### [facility] [address] [place] [address], [facility] SPEC GRAV 1.053 High 1.015-1.02 0 [facility] Comment on above: Order Comment: Crite ashley for reflexing a culture was met. Urine Culture and sensitivity will be performed. Performed By: #### 3 0965 #### [address] WBC UA 51-100 Abnormal NONE SEEN [facility] Comment on above: Order Comment: Crite ashley for reflexing a culture was met. Urine Culture and sensitivity will be performed. Performed By: #### 3 0965 #### [address] *BLOOD CULTUREon 12-12-2018 Bacteria identified Cx Nom (Bld) Clinical Report: (D) Specimen: BLOOD CULTURE Collected: 12/12/2018 20:45 Status: Final Last Updated: 12/18/2018 07:41 CULT RES (Final) No Growth Day 5 Normal [facility] Comment on above: Performed By: #### 3 0313 #### [address] 3D LUMBAR SPINE WO CONTRA STon 12-12-2018 CT 3D LUMBAR SPINE WO CONTRAST [facility] Department of Radiology [address] [place] [id number] == Patient Name: HEIDI PALMER : 1940 Sex: F Age: Race: White Pt. Location: [facility] Patient Status: I Ordered Date: 12/12/2018 [...] findings. Electronically signed by:Phillip Clements. Transcribed by: [email or web address], User Resident: TRICE DOHERTY Electronically Signed by: PHILLIP CLEMENTS @ 12/13/2018 01:24 PM I personally read this/these film(s) with this resident Normal [facility] Comment on above: Order Comment: R/O F ractures CTA HEADon 12-12-2018 CTA HEAD [facility] Department of Radiology [address] [place] [id number] == Patient Name: HEIDI PALMER : 1940 Sex: F Age: Race: White Pt. Location: [facility] Patient Status: I Ordered Date: 12/12/2018 [...] findings. Electronically signed by:Phillip Clements. Transcribed by: [email or web address], User Resident: ELI GONZALES Electronically Signed by: PHILLIP CLEMENTS @ 12/13/2018 08:31 AM I personally read this/these film(s) with this resident Normal [facility] Comment on above: Order Comment: R/O C VA CTA NECKon 12-12-2018 CTA NECK [facility] Department of Radiology [address] [place] [id number] == Patient Name: HEIDI PALMER : 1940 Sex: F Age: Race: White Pt. Location: [facility] Patient Status: I Ordered Date: 12/12/2018 [...] findings. Electronically signed by:Phillip Clements. Transcribed by: [email or web address], User Resident: ELI GONZALES Electronically Signed by: HEIDYSHIRAZ STARR @ 12/13/2018 08:31 AM I personally read this/these film(s) with this resident Normal [facility] Vital Signs Date Time Vital Sign Value Performing Clinician Facility 06-30-2024 13:00-0400 Body temperature 98 [degF] MD Mica Hook Work Phone: [facility] 06-30-2024 13:00-0400 Diastolic blood pressure 60 mm[Hg] MD Mica Hook Work Phone: [facility] 06-30-2024 13:00-0400 Heart rate 73 /min MD Mica Hook Work Phone: [facility] 06-30-2024 13:00-0400 Respiratory rate 20 /min MD Mica Hook Work Phone: [facility] 06-30-2024 13:00-0400 SaO2% (BldA) [Mass fraction] 97 % MD Mica Hook Work Phone: [facility] 06-30-2024 13:00-0400 Systolic blood pressure 125 mm[Hg] MD iMca Hook Work Phone: [facility] 06-30-2024 06:00-0400 Body weight 68.9 kg MD Mica Hook Work Phone: [facility] 06-29-2024 14:37-0400 Body height 165.1 cm MD Mica Hook Work Phone: [facility] 06-29-2024 04:35-0400 Inhaled oxygen flow rate 2 L/min MD Mica Hook Work Phone: [facility] 06-09-2024 10:53-0400 Body height 157.48 cm MD Mica Hook Work Phone: [facility] 06-09-2024 10:53-0400 Body mass index (BMI) [Ratio] 25.9 kg/m2 MD Mica Hook Work Phone: [facility] 06-09-2024 10:53-0400 Body temperature 97.6 [degF] MD Mica Hook Work Phone: [facility] 06-09-2024 10:53-0400 Body weight 64.41 kg MD Mica Hook Work Phone: [facility] 06-09-2024 10:53-0400 Diastolic blood pressure 76 mm[Hg] MD Mica Hook Work Phone: [facility] 06-09-2024 10:53-0400 Heart rate 62 /min MD Mica Hook Work Phone: [facility] 06-09-2024 10:53-0400 Respiratory rate 16 /min MD Mica Hook Work Phone: [facility] 06-09-2024 10:53-0400 SaO2% (BldA) [Mass fraction] 96 % MD Mica Hook Work Phone: [facility] 06-09-2024 10:53-0400 Systolic blood pressure 153 mm[Hg] MD Mica Hook Work Phone: [facility] 06-07-2024 11:20-0400 Body height 157.48 cm [facility] 06-07-2024 11:20-0400 Body mass index (BMI) [Ratio] 26 kg/m2 [facility] 06-07-2024 11:20-0400 Body weight 64.66 kg [facility] 06-07-2024 11:20-0400 Diastolic blood pressure 67 mm[Hg] [facility] 06-07-2024 11:20-0400 Heart rate 61 /min [facility] 06-07-2024 11:20-0400 Respiratory rate 18 /min [facility] 06-07-2024 11:20-0400 SaO2% (BldA) [Mass fraction] 97 % [facility] 06-07-2024 11:20-0400 Systolic blood pressure 148 mm[Hg] [facility] 03-07-2024 11:18-0400 Body height 157.48 cm MD Mica Hook Work Phone: [facility] 03-07-2024 11:18-0400 Body mass index (BMI) [Ratio] 25.1 kg/m2 MD Mica Hook Work Phone: [facility] 03-07-2024 11:18-0400 Body weight 62.31 kg MD Mica Hook Work Phone: [facility] 03-07-2024 11:18-0400 Diastolic blood pressure 70 mm[Hg] MD Mica Hook Work Phone: [facility] 03-07-2024 11:18-0400 Heart rate 62 /min MD Mica Hook Work Phone: [facility] 03-07-2024 11:18-0400 Respiratory rate 16 /min MD Mica Hook Work Phone: [facility] 03-07-2024 11:18-0400 SaO2% (BldA) [Mass fraction] 97 % MD Mica Hook Work Phone: [facility] 03-07-2024 11:18-0400 Systolic blood pressure 109 mm[Hg] MD Mica Hook Work Phone: [facility] 02-18-2024 13:57-0400 Body height 157.48 cm MD Mica Hook Work Phone: [facility] 02-18-2024 13:57-0400 Body mass index (BMI) [Ratio] 24.5 kg/m2 MD Mica Hook Work Phone: [facility] 02-18-2024 13:57-0400 Body weight 60.97 kg MD Mica Hook Work Phone: [facility] 02-18-2024 13:57-0400 Diastolic blood pressure 69 mm[Hg] MD Mica Hook Work Phone: [facility] 02-18-2024 13:57-0400 Heart rate 65 /min MD Mica Hook Work Phone: [facility] 02-18-2024 13:57-0400 Systolic blood pressure 122 mm[Hg] MD Mica Hook Work Phone: [facility] 01-26-2024 13:38-0400 Body height 165.1 cm Yusuf Hayward MD Work Phone: [facility] 01-26-2024 13:38-0400 Body mass index (BMI) [Ratio] 22.83 kg/m2 Yusuf Hayward MD Work Phone: [facility] 01-26-2024 13:38-0400 Body weight 62.23 kg Yusuf Hayward MD Work Phone: [facility] 01-26-2024 13:38-0400 Diastolic blood pressure 80 mm[Hg] Yusuf Hayward MD Work Phone: [facility] 01-26-2024 13:38-0400 Heart rate 64 /min Yusuf Hayward MD Work Phone: [facility] 01-26-2024 13:38-0400 Systolic blood pressure 120 mm[Hg] Yusuf Hayward MD Work Phone: [facility] 01-17-2024 11:54-0400 Body height 157.48 cm MD Mica Hook Work Phone: [facility] 01-17-2024 11:54-0400 Body mass index (BMI) [Ratio] 25 kg/m2 MD Mica Hook Work Phone: [facility] 01-17-2024 11:54-0400 Body weight 62.14 kg MD Mica Hook Work Phone: [facility] 01-17-2024 11:54-0400 Diastolic blood pressure 81 mm[Hg] MD Mica Hook Work Phone: [facility] 01-17-2024 11:54-0400 Heart rate 59 /min MD Mica Hook Work Phone: [facility] 01-17-2024 11:54-0400 Respiratory rate 18 /min MD Mica Hook Work Phone: [facility] 01-17-2024 11:54-0400 SaO2% (BldA) [Mass fraction] 97 % MD Mica Hook Work Phone: [facility] 01-17-2024 11:54-0400 Systolic blood pressure 126 mm[Hg] MD Mica Hook Work Phone: [facility] 12-08-2023 11:20-0500 Body height 157.48 cm MD Mica Hook Work Phone: [facility] 12-08-2023 11:20-0500 Body mass index (BMI) [Ratio] 29.2 kg/m2 MD Mica Hook Work Phone: [facility] 12-08-2023 11:20-0500 Body temperature 97 [degF] MD Mica Hook Work Phone: [facility] 12-08-2023 11:20-0500 Body weight 72.57 kg MD Mica Hook Work Phone: [facility] 12-08-2023 11:20-0500 Diastolic blood pressure 70 mm[Hg] MD Mica Hook Work Phone: [facility] 12-08-2023 11:20-0500 Heart rate 64 /min MD Mica Hook Work Phone: [facility] 12-08-2023 11:20-0500 Respiratory rate 16 /min MD Mica Hook Work Phone: [facility] 12-08-2023 11:20-0500 SaO2% (BldA) [Mass fraction] 98 % MD Mica Hook Work Phone: [facility] 12-08-2023 11:20-0500 Systolic blood pressure 140 mm[Hg] MD Mica Hook Work Phone: [facility] 11-18-2023 12:45-0500 Body height 158.75 cm Norma Scally Other [facility] 11-18-2023 12:45-0500 Body mass index (BMI) [Ratio] 26.87 kg/m2 Norma Scally Other [facility] [employer] Other 11-18-2023 12:45-0500 Body weight 67.72 kg Norma Scally Other [facility] 11-18-2023 12:45-0500 Diastolic blood pressure 77 mm[Hg] Norma Scally Other [facility] 11-18-2023 12:45-0500 Respiratory rate 16 /min Norma Scally Other [facility] [employer] Other 11-18-2023 12:45-0500 SaO2% (BldA) [Mass fraction] 97 % Norma Scally Other [facility] [employer] Other 11-18-2023 12:45-0500 Systolic blood pressure 141 mm[Hg] Norma Scally Other [facility] 11-17-2023 11:31-0500 Body temperature 97.8 [degF] MD Mica Hook Work Phone: [facility] 11-17-2023 11:31-0500 Diastolic blood pressure 76 mm[Hg] MD Mica Hook Work Phone: [facility] 11-17-2023 11:31-0500 Heart rate 64 /min MD Mica Hook Work Phone: [facility] 11-17-2023 11:31-0500 Respiratory rate 20 /min MD Mica Hook Work Phone: [facility] 11-17-2023 11:31-0500 SaO2% (BldA) [Mass fraction] 98 % MD Mica Hook Work Phone: [facility] 11-17-2023 11:31-0500 Systolic blood pressure 128 mm[Hg] MD Mica Hook Work Phone: [facility] 11-09-2023 14:00-0500 Body height 158.75 cm Mica Hook Other [facility] 11-09-2023 14:00-0500 Body mass index (BMI) [Ratio] 25.47 kg/m2 Mica Hook Other [facility] [employer] Other 11-09-2023 14:00-0500 Body weight 64.18 kg Mica Hook Other [facility] 11-09-2023 14:00-0500 Diastolic blood pressure 77 mm[Hg] Mica Hook Other [facility] 11-09-2023 14:00-0500 Respiratory rate 16 /min Mica Hook Other [facility] [employer] Other 11-09-2023 14:00-0500 Systolic blood pressure 119 mm[Hg] Mica Hook Other [facility] 11-03-2023 12:37-0500 Body temperature 97.6 [degF] MD Mica Hook Work Phone: [facility] 11-03-2023 12:37-0500 Diastolic blood pressure 77 mm[Hg] MD Mica Hook Work Phone: [facility] 11-03-2023 12:37-0500 Heart rate 56 /min MD Mica Hook Work Phone: [facility] 11-03-2023 12:37-0500 Respiratory rate 16 /min MD Mica Hook Work Phone: [facility] 11-03-2023 12:37-0500 SaO2% (BldA) [Mass fraction] 93 % MD Mica Hook Work Phone: [facility] 11-03-2023 12:37-0500 Systolic blood pressure 125 mm[Hg] MD Mica Hook Work Phone: [facility] 11-03-2023 07:35-0500 Body height 157.48 cm MD Mica Hook Work Phone: [facility] 10-31-2023 04:30-0500 Body weight 69 kg MD Mica Hook Work Phone: [facility] 10-15-2023 13:04-0500 Body temperature 97.5 [degF] MD Mica Hook Work Phone: [facility] 10-15-2023 13:04-0500 Diastolic blood pressure 74 mm[Hg] MD Mica Hook Work Phone: [facility] 10-15-2023 13:04-0500 Heart rate 67 /min MD Mica Hook Work Phone: [facility] 10-15-2023 13:04-0500 Respiratory rate 18 /min MD Mica Hook Work Phone: [facility] 10-15-2023 13:04-0500 SaO2% (BldA) [Mass fraction] 100 % MD Mica Hook Work Phone: [facility] 10-15-2023 13:04-0500 Systolic blood pressure 135 mm[Hg] MD Mica Hook Work Phone: [facility] 10-15-2023 06:17-0500 Body weight 69.4 kg MD Mica Hook Work Phone: [facility] 10-13-2023 15:36-0500 Inhaled oxygen flow rate 1 L/min MD Mica Hook Work Phone: [facility] 10-12-2023 13:13-0500 Body height 157.48 cm MD Mica Hook Work Phone: [facility] 10-12-2023 12:33-0500 Body mass index (BMI) [Ratio] 27.1 kg/m2 MD Mica Hook Work Phone: [facility] 10-11-2023 17:28-0500 Inhaled oxygen flow rate 2 L/min MD Mica Hook Work Phone: [facility] 10-11-2023 17:26-0500 Diastolic blood pressure 70 mm[Hg] MD Mica Hook Work Phone: [facility] 10-11-2023 17:26-0500 Heart rate 78 /min MD Mica Hook Work Phone: [facility] 10-11-2023 17:26-0500 Respiratory rate 18 /min MD Mica Hook Work Phone: [facility] 10-11-2023 17:26-0500 SaO2% (BldA) [Mass fraction] 99 % MD Mica Hook Work Phone: [facility] 10-11-2023 17:26-0500 Systolic blood pressure 149 mm[Hg] MD Mica Hook Work Phone: [facility] 10-11-2023 17:19-0500 Body height 157.48 cm MD Mica Hook Work Phone: [facility] 10-11-2023 17:19-0500 Body temperature 98.1 [degF] MD Mica Hook Work Phone: [facility] 10-11-2023 17:19-0500 Body weight 67.2 kg MD Mica Hook Work Phone: [facility] 10-11-2023 11:00-0500 Body height 158.75 cm Norma Scally Other [facility] 10-11-2023 11:00-0500 Body mass index (BMI) [Ratio] 25.47 kg/m2 Norma Scally Other [employer] Other 10-11-2023 11:00-0500 Body weight 64.18 kg Norma Scally Other [facility] 10-11-2023 11:00-0500 Diastolic blood pressure 81 mm[Hg] Norma Scally Other [facility] 10-11-2023 11:00-0500 Respiratory rate 16 /min Norma Scally Other [facility] [employer] Other 10-11-2023 11:00-0500 SaO2% (BldA) [Mass fraction] 96 % Norma Scally Other [employer] Other 10-11-2023 11:00-0500 Systolic blood pressure 131 mm[Hg] Norma Scally Other [facility] 07-19-2023 13:00-0400 Body height 162.56 cm Mica Hook Other [employer] Other 07-19-2023 13:00-0400 Body mass index (BMI) [Ratio] 23.38 kg/m2 Mica Hook Other [employer] Other 07-19-2023 13:00-0400 Body weight 61.78 kg Mica Hook Other [employer] Other 07-19-2023 13:00-0400 Diastolic blood pressure 77 mm[Hg] Mica Hook Other [employer] Other 07-19-2023 13:00-0400 Respiratory rate 12 /min Mica Hook Other [employer] Other 07-19-2023 13:00-0400 Systolic blood pressure 146 mm[Hg] Mica Hook Other [employer] Other 06-21-2023 13:45-0400 Body height 162.56 cm Mica Hook Other [employer] Other 06-21-2023 13:45-0400 Body mass index (BMI) [Ratio] 23.69 kg/m2 Mica Hook Other [employer] Other 06-21-2023 13:45-0400 Body weight 62.6 kg Mica Hook Other [employer] Other 06-21-2023 13:45-0400 Diastolic blood pressure 84 mm[Hg] Mica Hook Other [employer] Other 06-21-2023 13:45-0400 SaO2% (BldA) [Mass fraction] 95 % Mica Hook Other [employer] Other 06-21-2023 13:45-0400 Systolic blood pressure 140 mm[Hg] Mica Hook Other [employer] Other 01-14-2023 12:55-0500 Body height 165.1 cm Mica Hook Work Phone: [email or web address] 250 DO Work Phone: 01-14-2023 12:55-0500 Body mass index (BMI) [Ratio] 23.46 kg/m2 Mica Hook Work Phone: [email or web address] 250 DO Work Phone: 01-14-2023 12:55-0500 Body surface area Derived from formula 1.71 m2 Mica Hook Work Phone: [employer] 250 DO Work Phone: 01-14-2023 12:55-0500 Body weight 63.96 kg Mica Hook Work Phone: [facility] [employer] DO Work Phone: 01-14-2023 12:55-0500 Diastolic blood pressure 70 mm[Hg] Mica Hook Work Phone: [facility] [employer] DO Work Phone: 01-14-2023 12:55-0500 Heart rate 58 /min Mica Hook Work Phone: [facility] [employer] DO Work Phone: 01-14-2023 12:55-0500 Systolic blood pressure 128 mm[Hg] Mica Hook Work Phone: [facility] [employer] DO Work Phone: 11-23-2022 11:30-0500 Body height 162.56 cm Mica Hook Other [employer] Other 11-23-2022 11:30-0500 Body mass index (BMI) [Ratio] 24.03 kg/m2 Mica Hook Other [employer] Other 11-23-2022 11:30-0500 Body weight 63.5 kg Mica Hook Other [employer] Other 11-23-2022 11:30-0500 Diastolic blood pressure 72 mm[Hg] Mica Hook Other [employer] Other 11-23-2022 11:30-0500 SaO2% (BldA) [Mass fraction] 97 % Mica Hook Other [employer] Other 11-23-2022 11:30-0500 Systolic blood pressure 122 mm[Hg] Mica Hook Other [employer] Other 01-16-2022 13:49-0500 Diastolic blood pressure 64 mm[Hg] Mica Hook Work Phone: [facility] 250 DO Work Phone: 01-16-2022 13:49-0500 Systolic blood pressure 98 mm[Hg] Mica Hook Work Phone: [facility] 250 DO Work Phone: 01-16-2022 13:44-0500 Body height 165.1 cm Mica Hook Work Phone: [facility] 250 DO Work Phone: 01-16-2022 13:44-0500 Body mass index (BMI) [Ratio] 23.8 kg/m2 Mica Hook Work Phone: [facility] 250 DO Work Phone: 01-16-2022 13:44-0500 Body surface area Derived from formula 1.72 m2 Mica Hook Work Phone: [facility] 250 DO Work Phone: 01-16-2022 13:44-0500 Body weight 64.86 kg Mica Hook Work Phone: [facility] DO Work Phone: 01-16-2022 13:44-0500 Diastolic blood pressure 49 mm[Hg] Mica Hook Work Phone: [facility] DO Work Phone: 01-16-2022 13:44-0500 Systolic blood pressure 97 mm[Hg] Mica Hook Work Phone: [facility] 250 DO Work Phone: Encounters Encounter Date Encounter Type Care Provider Facility Start: 07-13-2024 End: 07-13-2024 ambulatory [facility] Ambulatory Start: 07-12-2024 End: 07-12-2024 ambulatory MD Mica Hook Work Phone: [facility] Work Phone: Start: 07-12-2024 End: 07-12-2024 Patient encounter procedure MD Mica Hook Work Phone: [facility] Work Phone: Start: 06-29-2024 Non-patient / Non-visit MD Coral Hook Work Phone: [facility] Work Phone: Start: 06-29-2024 End: 06-30-2024 Evaluation and management of inpatient MD Mica Hook Work Phone: [facility] [place] [address] Critical Care Work Phone: Start: 06-29-2024 End: 06-29-2024 ambulatory UNKNOWN PROVIDER Facility:[facility] Start: 06-29-2024 Non-patient / Non-visit MD Coral Hook Work Phone: [facility] Work Phone: Start: 06-16-2024 End: 06-16-2024 ambulatory JAS STUART Not Available Start: 06-09-2024 End: 06-09-2024 ambulatory MD Mica Hook Work Phone: [facility] Work Phone: Start: 06-09-2024 End: 06-09-2024 Patient encounter procedure MD Mica Hook Work Phone: [facility] [place] [facility] Work Phone: Start: 06-09-2024 Registered Recurring MD Mica Hook Work Phone: [facility] Acute Work Phone: Start: 06-09-2024 ambulatory Mica Hook Facility :[facility] Start: 06-07-2024 End: 06-07-2024 ambulatory [facility] Work Phone: Start: 06-07-2024 End: 06-07-2024 Patient encounter procedure [facility] Work Phone: Start: 04-19-2024 End: 04-19-2024 ambulatory [facility] Work Phone: Start: 04-19-2024 End: 04-19-2024 Patient encounter procedure [facility] Work Phone: Start: 04-10-2024 End: 04-10-2024 ambulatory MD Mica Hook Work Phone: [facility] Work Phone: Start: 04-10-2024 End: 04-10-2024 Patient encounter procedure MD Mica Hook Work Phone: [facility] Start: 03-23-2024 Non-patient / Non-visit MD Coral Hook Work Phone: [facility] Work Phone: Start: 03-07-2024 End: 03-07-2024 ambulatory MD Mica Hook Work Phone: [facility] Work Phone: Start: 03-07-2024 End: 03-07-2024 Patient encounter procedure MD Mica Hook Work Phone: [facility] Work Phone: Start: 02-18-2024 End: 02-18-2024 ambulatory MD Mica Hook Work Phone: [facility] Work Phone: Start: 02-18-2024 End: 02-18-2024 Patient encounter procedure MD Mica Hook Work Phone: [facility] Work Phone: Start: 01-26-2024 End: 01-26-2024 ambulatory [facility] Ambulatory Start: 01-26-2024 End: 01-26-2024 Office outpatient visit 25 minutes Yusuf Hayward MD Work Phone: [facility] Comment on above: 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); Essential hypertension, benign; History of PTCA; Mixed hyperlipidemia; Edema, unspecified type; Never smoked cigarettes Start: 01-17-2024 End: 01-17-2024 Patient encounter procedure MD Mica Hook Work Phone: [facility] Work Phone: Start: 01-10-2024 End: 01-10-2024 Patient encounter procedure MD Mica Hook Work Phone: [facility] Work Phone: Start: 01-10-2024 End: 01-10-2024 Patient encounter procedure MD Mica Hook Work Phone: [facility] Start: 01-10-2024 End: 01-10-2024 ambulatory Epi Olexa Facility:[facility] Start: 12-24-2023 Non-patient / Non-visit MD Coral Hook Work Phone: [facility] Work Phone: Start: 12-17-2023 End: 12-17-[address] Hook [address] [facility] [employer] Other Start: 12-17-2023 Telephone encounter iMca Hook [facility] Start: 12-15-2023 Nursing evaluation o f patient and report Norma Diaz [facility] Start: 12-15-2023 End: 12-15-2023 Discharged Recurring MD Mica [facility] Work [facility]: Start: 12-15-2023 End: 12-15-2023 ambulatory MD Mica Hook Work Phone: [facility] [employer] Other Start: 12-13-2023 End: 12-13-2023 ambulatory Mica Hook Other [employer] Other Start: 12-13-2023 Telephone encounter Mica GRAVES [facility] Start: 12-08-2023 End: 12-08-2023 ambulatory MD Mica Hook Work Phone: [facility] Work Phone: Start: 12-08-2023 End: 12-08-2023 Patient encounter procedure MD Mica Hook Work Phone: [facility] Work Phone: Start: 12-08-2023 Registered Recurring MD Mica Hook Work Phone: [facility] Acute Work Phone: Start: 11-18-2023 Registered Recurring MD Mica Hook Work Phone: [facility] Work Phone: Start: 11-18-2023 (DM) Diabetes Norma Diaz [facility] Start: 11-18-2023 End: 11-18-2023 ambulatory Norm[address] Emily Other [facility] [employer] Other Start: 11-18-2023 End: 11-18-2023 Patient encounter procedure MD Mica Hook Work Phone: [facility] Work Phone: Start: 11-16-2023 Postop follow up vis it related to original px Epi O[facility] Start: 11-16-2023 End: 11-16-2023 Patient encounter procedure MD Mica Hook Work Phone: [facility] Start: 11-16-2023 End: 11-16-2023 ambulatory MD Mica Hook Work Phone: [facility] Work Phone: Start: 11-09-2023 End: 11-09-2023 ambulatory Mica Hook Other [employer] Other Start: 11-09-2023 Office outpatient vi sit 25 minutes Mica Hook [facility] Start: 11-09-2023 End: 11-09-2023 Patient encounter procedure MD Mica Hook Work Phone: [facility] Work Phone: Start: 11-05-2023 End: 11-05-2023 ambulatory Mica Hook Other [employer] Other Start: 11-05-2023 Telephone encounter Mica Hook [facility] Start: 11-02-2023 End: 11-02-2023 ambulatory Mica Hook Other [facility] Other Start: 11-02-2023 Telephone encounter Mica Hook [facility] Start: 10-26-2023 End: 10-26-2023 ambulatory Mica Hook Other [employer] Other Start: 10-26-2023 Telephone encounter Mica Hook [facility] Start: 10-15-2023 End: 11-03-2023 Evaluation and management of inpatient MD Mica Hook Work Phone: [facility] [place] Work Phone: Start: 10-11-2023 End: 10-15-2023 Evaluation and management of inpatient MD Mica Hook Work Phone: [facility] [place] [facility] Work Phone: Start: 10-11-2023 End: 10-11-2023 ambulatory Norma Diaz Other [employer] Other Start: 10-11-2023 FQHC visit new patient Norma Pandey y [facility] Start: 10-11-2023 Registered Recurring MD Mica Hook Work Phone: [facility] Work Phone: Start: 10-11-2023 End: 10-11-2023 Patient encounter procedure MD Mica Hook Work Phone: [facility] Work Phone: Start: 10-07-2023 (Televisit) Televisit Mica Hook F [facility] Start: 10-07-2023 End: 10-07-2023 ambulatory Mica Hook Other [employer] Other Start: 09-13-2023 End: 09-13-2023 ambulatory Mica Hook Other [employer] Other Start: 09-13-2023 Telephone encounter Mica Hook [facility] Start: 09-08-2023 End: 09-08-2023 ambulatory MD Mica Hook Work Phone: [facility] Work Phone: Start: 09-08-2023 End: 09-08-2023 Departed Referred MD Mica Hook Work Phone: [facility] [place] Work Phone: Start: 08-19-2023 End: 08-19-2023 ambulatory Mica Hook Other [employer] Other Start: 08-19-2023 Telephone encounter Mica Hook [facility] Start: 08-05-2023 End: 08-05-2023 ambulatory Mica Hook Other [employer] Other Start: 08-05-2023 Telephone encounter Mica Hook [facility] Start: 07-26-2023 End: 07-26-2023 ambulatory Mica Hook Other [employer] Other Start: 07-26-2023 Telephone encounter Mica Hook [facility] Start: 07-19-2023 End: 07-19-2023 ambulatory Mica Hook Other [employer] Other Start: 07-19-2023 Office outpatient vi sit 15 minutes Mica Monster [facility] Start: 06-23-2023 End: 06-23-2023 ambulatory Mica Hook Other [employer] Other Start: 06-23-2023 Telephone encounter Mica Monster [facility] Start: 06-21-2023 End: 06-21-2023 ambulatory Mica Hook Other [employer] Other Start: 06-21-2023 Office outpatient vi sit 25 minutes Mica Monster [facility] Start: 05-18-2023 End: 05-18-2023 ambulatory Mica Hook Other [employer] Other Start: 05-18-2023 Telephone encounter Mica Monster [facility] Start: 02-17-2023 End: 02-17-2023 ambulatory Mica Hook Other [facility] Other Start: 02-17-2023 Telephone encounter Mica Monster [facility] Start: 02-16-2023 Postop follow up vis it related to original px Uma Mccauley [facility] Start: 02-16-2023 End: 02-16-2023 ambulatory MD Mica Hook Work Phone: [facility] Work Phone: Start: 02-16-2023 End: 02-16-2023 Patient encounter procedure MD Mica Hook Work Phone: [facility] Start: 01-28-2023 End: 01-28-2023 ambulatory Uma Mccauley Other [employer] Other Start: 01-28-2023 Telephone encounter Uma Mccauley [facility] Start: 01-14-2023 Office outpatient vi sit 25 minutes Mica Hook Work Phone: [facility] 250 DO Work Phone: Start: 01-14-[address] Yusuf Hayward II Facility: Start: 01-06-2023 Postop follow up vis it related to original px Uma Johnsonvishal [facility] Start: 01-06-2023 End: 01-06-2023 ambulatory MD Mica Hook Work Phone: [facility] Work Phone: Start: 01-06-2023 End: 01-06-2023 Patient encounter procedure MD Mica Hook Work Phone: [facility] Start: 12-23-2022 End: 12-23-2022 ambulatory Uma Mccauley Other [facility] [employer] Other Start: 12-23-2022 Telephone encounter Uma Johnsonvishal [facility] Start: 12-22-2022 End: 12-22-2022 ambulatory Uma Mccauley Other [employer] Other Start: 12-22-2022 FQ visit new patient Uma Johnsonernie y [facility] Start: 12-18-2022 End: 12-18-[address] MICA HOOK Facility:[facility] Start: 11-26-2022 End: 11-26-[address] Hook Other [facility] [employer] Other Start: 11-26-2022 Telephone encounter Mica Hook [facility] Start: 11-23-2022 Office outpatient vi sit 25 minutes Mica Hook [facility] Start: 11-23-2022 End: 11-24-[address] MICA HOOK Facility:[facility] Start: 10-22-2022 Rx Renewal Mica Hook Work Phone: [facility] 250 DO Work Phone: Start: 03-02-2022 End: 03-03-[address] MICA HOOK Facility:[facility] Start: 02-25-2022 End: 02-25-[address] MICA HOOK Facility:[facility] Start: 02-25-2022 End: 02-25-[address] MICA HOOK Facility: Start: 01-16-2022 Office outpatient vi sit 15 minutes Mica Hook Work Phone: [facility] 250 DO Work Phone: Start: 01-16-[address] Yusuf Hayward II Facility: Start: 11-10-2021 Rx Renewal Yusuf warren MD Work Phone: [facility] 250 DO Work Phone: Start: 08-14-2021 Rx Renewal Yusuf warren MD Work Phone: [facility] DO Work Phone: Start: 07-16-2021 Adult health examination Mica Hook Other [facility] [employer] Other Start: 12-13-2018 End: 12-16-2018 Evaluation and management of inpatient MICA HOOK Facility:[facility] Procedures Date Procedure Procedure Detail Performing Clinician Start: 06-29-[address] acement 0 MD Mica Hook Work Phone: Start: 06-29-2024 CL LHC & COR Angio MD Ashley Hook Work Phone: Start: 06-29-2024 CL PCI AMI 1st Vesse l LAD MARIANELA MD Mica Hoko Work Phone: Start: 06-29-2024 CL Stent 1st Vessel RCA MARIANELA MD Mica Hook Work Phone: Start: 06-07-2024 CT of chest without contrast [...] Phone: Start: 10-14-2023 Carcinoembryonic ant igen cea Epi Olexa Comment on above: Result Comment: PERF ORMED BY:[facility] [place] [phone] MEDICAL DIRECTORMELODY WHEELER M.D. Performed By: #### C EA ####[facility] [id number] [place] [address] [facility]#### [id number], [id number], [id number] ####[facility] , Start: 10-12-2023 Plain X-ray of right hip MD Mica Hook Work Phone: Start: 10-12-2023 Urine culture MD Mica Hook Work Phone: Start: 10-12-2023 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 MD Mica Hook Work Phone: Start: 10-11-2023 CT of thorax with contrast MD Mica Hook Work Phone: Start: 10-11-2023 Antibody screen [facility] Comment on above: Result Comment: PERF ORMED BY:[facility] [place] [id number] MEDICAL DIRECTORMELODY WHEELER M.D. Start: 10-11-2023 CT cervical spine [...] Hook Work Phone: Start: 12-13-2018 MEASUREMENT OF DESIGN TRANSFERRER E 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, FINGER LIFT OPERATOR APPROACH ANITA RDZ Biopsy of breast Yusuf [...] Work Phone: Operation on thyroid gland W rosemaryashley Hayward MD Work Phone: Operative procedure on ankle Yusuf Hayward MD Work Phone: Surgical procedure o n thorax Yusuf Hayward MD Work Phone: Total colonoscopy Yusuf Salas MD Work Phone: Plan of Treatment Date Care Activity Detail Author Start: 12-18-2032 DTaP/Tdap/Td Vaccines (2 - Td or Tdap) DTaP/Tdap/Td Vaccines (2 - Td or Tdap) [facility] Start: 01-24-2025 End: 01-24-2025 Patient encounter procedure 01/24/2025 11:30 AM EDT Office Visit [facility] [address] [place] [address] Yusuf Mcdermott, [address] [place] [address] [facility] Start: 06-30-2024 [facility] Start: 06-29-2024 Dilation of Coronary Artery, Two Arteries with Four or More Drug-eluting Intraluminal Devices, Percutaneous Approach Dilation of Coronary Artery, Two Arteries with Four or More Drug-eluting Intraluminal Devices, Percutaneous Approach [facility] Start: 06-29-2024 Fluoroscopy of Left Heart using Low Osmolar Contrast Fluoroscopy of Left Heart using Low Osmolar Contrast [facility] Start: 06-29-2024 Fluoroscopy of Multiple Coronary Arteries using Low Osmolar Contrast Fluoroscopy of Multiple Coronary Arteries using Low Osmolar Contrast [facility] Start: 06-29-2024 Measurement of Cardiac Sampling and Pressure, Left Heart, Percutaneous Approach Measurement of Cardiac Sampling and Pressure, Left Heart, Percutaneous Approach [facility] Start: 06-29-2024 Consultation [facility] Start: 06-29-2024 Hospital admission [facility] Start: 06-29-2024 Referral to cardiac rehabilitation program [facility] Start: 06-29-2024 [facility] Start: 01-26-2024 FUV, Provider: Yusuf Hayward, Status: Pen, Time: 1:00 PM FUV, Provider: Yusuf Hayward, Status: Pen, Time: 1:00 PM [facility] 250 DO Work Phone: Start: 12-08-2023 Patient referral [facility] Work Phone: Start: 10-26-2023 [facility] Start: 10-15-2023 Administration of prophylactic treatment [facility] Start: 10-15-2023 Hospital admission [facility] Start: 10-15-2023 Referral to clinical nurse practitioner adult [facility] Start: 10-15-2023 [facility] Start: 10-13-2023 Referral to rehabilitation physician [facility] Start: 10-12-2023 Urine culture Urine Culture [facility] Start: 10-12-2023 Referral to oncologist [facility] Start: 10-12-2023 Blood chemistry [facility] Start: 10-12-2023 [facility] Start: 10-11-2023 Patient referral to dietitian [facility] Start: 10-11-2023 Hospital admission [facility] Start: 10-11-2023 End: 10-11-2023 Consultation [facility] Start: 10-11-2023 Physical therapy procedure [facility] Start: 10-11-2023 Referral to occupational therapist [facility] Start: 10-11-2023 [facility] Start: 10-11-2023 Replacement of Right Hip Joint, Femoral Surface with Metal Synthetic Substitute, Open Approach Replacement of Right Hip Joint, Femoral Surface with Metal Synthetic Substitute, Open Approach [facility] Start: 09-08-2023 Bacteria identified in Urine by Culture [facility] Start: 07-09-2023 COVID-19 Vaccine ( season) COVID-19 Vaccine ( season) [facility] Start: 07-09-2023 Influenza vaccination Influenza Vaccine (#1) [facility] Start: 04-27-2023 Glaucoma screening Diabetes: Retinopathy Screening [facility] Start: 01-15-2023 FUV, Provider: Yusuf Hayward, Status: Pen, Time: 1:10 PM FUV, Provider: Yusuf Hayward, Status: Pen, Time: 1:10 PM [facility] 250 DO Work Phone: Start: 11-18-2021 FUV, Provider: Yusuf Hayward, Status: Pen, Time: 11:15 AM FUV, Provider: Yusuf Hayward, Status: Pen, Time: 11:15 AM [facility] 250 DO Work Phone: Start: 01-03-2018 Pneumococcal Vaccine: 65+ Years (2 - PPSV23 or PCV20) Pneumococcal Vaccine: 65+ Years (2 - PPSV23 or PCV20) [facility] Start: 08-20-2017 Zoster Vaccines (2 of 3) Zoster Vaccines (2 of 3) [facility] Start: 1958 Urine screening for protein Diabetes: Urine Protein Screening [facility] Start: 1949 Diabetic foot examination Diabetes: Foot Exam [facility] Start: 1939 Hemoglobin A1c measurement Diabetes: Hemoglobin A1C [facility] Start: 1939 Lipid panel Lipid Panel [facility] Start: 1939 Medicare Annual Wellness Visit Medicare Annual Wellness Visit (AWV) [facility] Start: 1939 Screening for osteoporosis Bone Density Scan [facility] Start: 1939 Thyroid stimulating hormone measurement TSH Level [facility] CT [facility] Chest [facility] guided biopsy [facility] CT Unspecified body region [facility] MG Breast - right Screening [facility] Patient Education [facility] Work Phone: Patient referral [facility] Work Phone: [facility] Immunizations Immunization Date Immunization Notes Care Provider Fa cility 12-18-2022 diphtheria, tetanus toxoids and pertussis vaccine Mica Hook [facility] Work Phone: 12-18-2022 tetanus toxoid, redu cm diphtheria toxoid, and acellular pertussis vaccine, adsorbed Yusuf Hayward MD Work Phone: [facility] Work Phone: 05-29-2022 Moderna COVID-19 Vaccine 100 MCG/0.5ML Intramuscular Suspension Mica Hook Work Phone: [facility] Work Phone: 10-09-2021 Moderna COVID-19 Vaccine 100 MCG/0.5ML Intramuscular Suspension Mica Hook Work Phone: [facility] DO Work Phone: 09-17-2021 influenza virus vaccine, split virus (incl. purified surface antigen) Mica Hook Other [facility] [employer] Other 09-17-2021 influenza virus vaccine, unspecified formulation MD Mica Hook Work Phone: [facility] 09-08-2021 influenza, seasonal, injectable Mica Hook Work Phone: [place] [address] DO Work Phone: Comment on above: Series: 09-08-2021 influenza virus vaccine, unspecified formulation Yusuf Hayward MD Work Phone: [facility] Work Phone: 01-16-2021 Moderna COVID-19 Vaccine 100 MCG/0.5ML Intramuscular Suspension Yusuf Hayward MD Work Phone: [facility] 12-20-2020 Moderna COVID-19 Vaccine 100 MCG/0.5ML Intramuscular Suspension Yusuf Hayward MD Work Phone: [facility] 08-21-2020 influenza virus vaccine, split virus (incl. purified surface antigen) Mica Hook Other [facility] [employer] Other 08-21-2020 influenza virus vaccine, unspecified formulation MD Mica Hook Work Phone: [facility] 08-08-2020 influenza virus vaccine, unspecified formulation Yusuf Hayward MD Work Phone: [facility] DO Work Phone: 08-18-2018 influenza virus vaccine, split virus (incl. purified surface antigen) Mica Hook Other [facility] [employer] Other 08-18-2018 influenza virus vaccine, unspecified formulation MD Mica Hook Work Phone: [facility] 08-18-2018 Seasonal trivalent influenza vaccine, adjuvanted, preservative free Mica Hook [facility]: [facility] Work Phone: 11-08-2017 pneumococcal conjuga te vaccine, 13 valent Yusuf Hayward MD Work Phone: [facility] 06-25-2017 influenza, high dose seasonal, preservative-free Mica Hook Work [facility]: [facility] Work Phone: 06-25-2017 zoster vaccine, live Mica Hook Work Phone: [facility] 08-17-2014 tetanus and diphther ia toxoids, adsorbed, preservative free, for adult use (5 Lf of tetanus toxoid and 2 Lf of diphtheria toxoid) Mica Hook Other [facility] 08-24-2013 tetanus and diphther ia toxoids, adsorbed, preservative free, for adult use (5 Lf of tetanus toxoid and 2 Lf of diphtheria toxoid) Mica Hook Other [facility] 09-16-2005 pneumococcal polysaccharide vaccine, 23 y[address] [employer] Other [facility] Payers Date Payer Category Payer Unknown 2023 Medicare [id number] 2023 Self-pay [id number] 1960 Medicare [id number] 1959 Unknown [id number] 1939 Unknown [id number] 2.16.8 [id number] 1939 Unknown [id number] 2.16.84 [id number] 1939 Unknown [id number] 2.16.84 [id number] 1939 Unknown [id number] 2.16.84 [id number] 1939 Unknown [id number] 2.16.84 [id number] 1939 Unknown [id number] 2.16.84 [id number] 1939 Unknown [id number] 2.16. [id number] 1939 Unknown [id number] 2.16. [id number] 1939 Unknown [id number] 2.16.84 [id number] 1939 Unknown [id number] 2.16. [id number] 1940 Unknown [id number] 2.16.8 [id number] 1940 Unknown [id number] 2.16.[id number] [facility] Health Claims [id number] Unknown [id number] Unknown [id number] 2.16.8 [id number] Unknown [id number] 2.16.8 [id number] Unknown [id number] 2.16.8 [id number] Unknown [id number] 2.16.8 [id number] Unknown [id number] 2.16.8 [id number] Unknown [id number] 2.16.8 [id number] Unknown [id number] 2.16.8 [id number] Unknown [id number] 2.16.8 [id number] Social History Date Type Detail Facility Start: 01-26-2024 Alcohol use Alcohol use -[place] [facility] DO Work Phone: Start: 01-26-2024 Sex Assigned At [facility] [employer] Other Start: 05-15-2019 End: 06-29-2024 Tobacco smoking status [facility] Never smoked tobacco (finding) [facility] Start: 1940 Sex Assigned At Female [facility] Start: 01-26-2024 Tobacco use and exposure Smokeless tobacco non-user [facility] Work Phone: Start: 01-26-2024 Alcohol intake Current drinke r of alcohol (finding) [facility] Work Phone: Start: 01-26-2024 Alcohol Comment monthly [facility] Work Phone: Start: 1940 Sex Assigned At Not on file [facility] Work Phone: Start: 01-16-2024 End: 01-26-2024 Exposure to SARS-CoV-2 (event) Not sure [facility] Medical Equipment Procedure Code Equipment Code Equipment Origin al Text Equipment Identifier Dates Arthroplasty, hip, bipolar Metallic femoral head prosthesis [id number] FDA Start: 10-12-2023 Arthroplasty, hip, bipolar Coated hip femur prosthesis, modular ()[id number] FDA Start: 10-12-2023 Start: 11-18-2023 Blood Sugar [...] Plus Lancet) 30 gauge misc Start: 01-04-2024 CL STENT JONAH FRONTIER 2.5 X 08 FDA Start: 06-29-2024 CL STENT JONAH FRONTIER 2.5 X 12 FDA Start: 06-29-2024 CL STENT JONAH FRONTIER 2.5 X 15 FDA Start: 06-29-2024 CL STENT JONAH FRONTIER 3.0 X 15 FDA Start: 06-29-2024 Femoral artery closure plug/patch, synthetic polymer ([id number] FDA Start: 06-29-2024 Blood Sugar Diagnostic (Onetouch Ultra Test) strip Start: 01-04-2024 Lancets (Onetouc h Delica Plus Lancet) 30 gauge misc Start: 01-04-2024 CL STENT JONAH FRONTIER 2.5 X 08 FDA Start: 06-29-2024 CL STENT JONAH FRONTIER 2.5 X 12 FDA Start: 06-29-2024 CL STENT JONAH FRONTIER 2.5 X 15 FDA Start: 06-29-2024 CL STENT JONAH FRONTIER 3.0 X 15 FDA Start: 06-29-2024 Blood Sugar Diagnostic (Onetouch Ultra Test) strip Start: 01-04-2024 Lancets (Onetouc h Delica Plus Lancet) 30 gauge misc Start: 01-04-2024 Goals Date Patient Goal Desired Activity /State Functional Status Date Assessment Result Facility 06-30-2024 Functional status Patient at Baseline [facility] Work Phone: 11-03-2023 Functional status Patient is Pro gressing Toward Baseline [facility] Work Phone: 10-15-2023 Functional status Patient at Baseline [facility] Work Phone: Mental Status Date Assessment Result Facility 06-30-2024 Cognitive function Cognitive Sta tus Patient at Baseline [facility] Work Phone: 11-03-2023 Cognitive function Cognitive Sta tus Patient at Baseline [facility] Work Phone: 10-15-2023 Cognitive function Cognitive Sta tus Patient at Baseline [facility] Work Phone: Clinical Notes 11-23-2022 to 06-29-2024 Note Date & Type Note Facility 06-29-2024 Progress note Note Date/Time June 29, 2024 5:10pm [facility] [address] [place] [address] Progress Note Signed Patient: Heidi Palmer MR#: [id number] : 1940 Acct:[id number] Age/Sex: 84 / F Adm Date: 4 Loc: Room: [address] [place] [address] Type: ADM IN Attending Dr: Roberto Carlos Mcdermott DO Copies to: ~ Date of Service: 06/29/2024 Progress Narrative Note PROGRESS NOTE Progress Note: Case was reviewed with patient having suspected high anterolateral STEMI with prior history of coronary disease and stent placement with drug-eluting stents placed in the mid LAD as well as the RCA. Patient is hemodynamically stable andon room air. I have nothing further to contribute. We will be available if needed but will not formally consult on the patient. Documented By: Tl Wild MD [id number] Signed By: <Electronically signed by MD Tl Wild> 06/29/241709 [facility] Work Phone: 1(692) 373-785108-22-2024 Progress note Author Roberto Carlos Mcdermott [facility] June 29, 2024 11:29am Note Date/Time June 29, 2024 11 :29am [facility] [address] [place] [address] Cardiology Progress Note Signed Patient: Heidi Palmer MR#: [id number] : 1940 Acct:[id number] Age/Sex: 84 / F Adm Date: 4 Loc: Room: [address] [place] [address] Type: ADM IN Attending Dr: Roberto Carlos Mcdermott DO Copies to: ~ Date of Service: 06/29/2024 Subjective Principal diagnosis: Anteroapical STEMI Interval history: Ms. Palmer is a 84 year old female admitted in transfer emergently from [place] with new onset chest discomfort, ER arrival 0009, ECG with changes consistent with anterior STEMI involving ST elevation in lead V1 and V2. I was contacted by Dr. Allen at 12:59 AM, reviewed ECGs via electronic transmitted media from 2022 and current ECG performed at 12:56 AM. (Incidentally, current ECG probablyreveals lead misplacement of lead I and aVR) Patient arrived at [facility] via [facility] at 0228; first device activation 0244; door to device time 16 minutes (delay in [employer] arrival anddeparture at outside facility) Past medical history: ASHD with prior PCI's of LAD and RCA at [facility] February 2012 with 1 episode of restenosis of the LAD, with repeat PCI details unknown. Patient used to follow with [facility] up until 2019and then followed with Dr. Hayward thereafterwards; has had no cardiovascular complaints upon review of Dr. Hayward's notes via EMR Further past medical history is noted for breast cancer status postmastectomy, right hip fracture status post hemiarthroplasty right hip, hypertension, diabetes mellitus, hyperlipidemia, history of thyroid surgery. There is no history of tobacco use, arrhythmia, heart failure, stroke or peripheral vascular disease. Total 60 minutes nonprocedural critical care time were devoted to the ER staff, [employer] staff, nursing staff, patient and family both pre and post procedurally. Interim/subsequent visit 06/29/2024: Patient is doing well, ECG abnormalities resolved, troponin up to 8500, patient is asymptomatic, hemodynamically stable without angina or shortness of breath. Appropriate therapies have been instituted at least for the time being we will titrate therapy likely can be discharged tomorrow morning Exam Physical Exam Vital Signs: Temp Pulse Resp BP Pulse Ox O2 Del Method O2 Flow Rate 97.7 F 63 21 113/56 L 98 Room Air 2 06/29/24 08:06/29/24 10:06/29/24 10:00 06/29/24 10:06/29/24 10:06/29/24 10:00 06/29/24 04:35 Const General: cooperative Nutritional Appearance: average body habitus Orientation: alert, awake and oriented x3 HEENT Head: normal to inspection Neck Neck: normal visual inspection Chest Chest palpation & inspection: normal inspection of the chest Resp Effort & Inspection: normal respiratory effort Auscultation: clear to auscultation bilaterally Cardio Palpation: normal PMI Rate: regular rate Rhythm: regular rhythm Heart Sounds: S1 normal and S2 normal Pulses: radial pulses present and femoral pulses present GI Palpation: soft Skin General: no rashes or lesions noted Neuro General: patient alert, patient awake and patient oriented x3 Cognition: normal cognition Speech: speech normal Extrem General: no clubbing, cyanosis or edema Objective Labs 06/29/24 05:07 06/29/24 05:07 Labs: Laboratory Results - last 24 hr 06/29/24 06/29/24 05:07 07:19 Corrected WBC 13.9 H Uncorrected WBC Count 13.9 H RBC 4.50 Hgb 13.7 Hct 41.1 MCV 91.3 MCH 30.5 MCHC 33.4 RDW 13.9 Plt Count 266 MPV 8.2 Neut % (Auto) 77.1 Lymph % (Auto) 15.0 Hoke % (Auto) 6.6 Eos % (Auto) 0.5 Baso % (Auto) 0.8 Nucleat RBC Rel Count 0.1 Neut # (Auto) 10.7 H Lymph # (Auto) 2.1 Hoke # (Auto) 0.9 H Eos # (Auto) 0.1 Baso # (Auto) 0.1 PHA Creatinine Clear 46.26 Sodium 129 L Potassium 5.5 H Chloride 98 Carbon Dioxide 28.7 Anion Gap 7.8 BUN 13 Creatinine 0.77 Est GFR (CKD-EPI) > 60.0 Glucose 251 H Calcium 9.4 Troponin I High Sens 6774.1 H* 8507.8 H* Triglycerides 97 Cholesterol 167 LDL Cholesterol, Calc 101 H VLDL Cholesterol 19 HDL Cholesterol 47 Cholesterol/HDL Ratio 3.6 A&P - Cardiology (1) ST elevation myocardial infarction (STEMI) of anterior wall: Code(s): I21.09 - ST elevation (STEMI) myocardial infarction involving other coronary artery of anterior wall (2) CAD (coronary artery disease): Qualifiers: Coronary Disease-Associated Artery/Lesion type: [place] artery [place] vs. transplanted heart: [place] heart Code(s): I25.10 - Atherosclerotic heart disease of [place] coronary artery without angina pectoris (3) Diabetes: Code(s): E11.9 - Type 2 diabetes mellitus without complications (4) Hyperlipidemia: Code(s): E78.5 - Hyperlipidemia, unspecified (5) History of left breast cancer: Code(s): Z85.3 - Personal history of malignant neoplasm of breast (6) History of thyroid surgery: Code(s): Z98.890 - Other specified postprocedural states (7) History of cardiac cath: Code(s): Z98.890 - Other specified postprocedural states Plan Emergent cath/PCI Documented By: Roberto Carlos Mcdermott DO 06/29/24 1128 Signed By: <Electronically signed by Roberto Carlos Mcdermott DO> 06/29/24 1129 [facility] Work Phone: 1(734) 960-493608-22-2024 History and physical note Author Roberto Carlos Mcdermott [facility] June 29, 2024 3:25am Note Date/Time June 29, 2024 2: 18am [facility] [address] [place] [address] Cardiology H&P Signed Patient: Heidi Palmer MR#: [id number] : 1940 Acct:[id number] Age/Sex: 84 / F Adm Date: 4 Loc: CL Room: Type: [facility] Attending Dr: Roberto Carlos Mcdermott DO Copies to: MD Roberto Carlos Ayala, ~ Date of Service: 06/29/2024 Cardiology HPI History of Present Illness Chief complaint: Anterior STEMI HPI: Ms. Palmer is a 84 year old female admitted in transfer emergently from [place] with new onset chest discomfort, ER arrival 0009, ECG with changes consistent with anterior STEMI involving ST elevation in lead V1 and V2. I was contacted by Dr. Allen at 12:59 AM, reviewed ECGs via electronic transmitted media from 2022 and current ECG performed at 12:56 AM. (Incidentally, current ECG probablyreveals lead misplacement of lead I and aVR) Patient arrived at [facility] via [facility] at 0228; first device activation 0244; door to device time 16 minutes (delay in [employer] arrival anddeparture at outside facility) Past medical history: ASHD with prior PCI's of LAD and RCA at [facility] February 2012 with 1 episode of restenosis of the LAD, with repeat PCI details unknown. Patient used to follow with [facility] up until 2019and then followed with Dr. Hayward thereafterwards; has had no cardiovascular complaints upon review of Dr. Hayward's notes via EMR Further past medical history is noted for breast cancer status postmastectomy, right hip fracture status post hemiarthroplasty right hip, hypertension, diabetes mellitus, hyperlipidemia, history of thyroid surgery. There is no history of tobacco use, arrhythmia, heart failure, stroke or peripheral vascular disease. Total 60 minutes nonprocedural critical care time were devoted to the ER staff, [employer] staff, nursing staff, patient and family both pre and post procedurally. [facility] Medical History (Updated 06/29/24 @ 02:18 by Roberto Carlos Mcdermott DO) BMI 26.0-26.9,adult Type 2 diabetes mellitus with hyperglycemia Vitamin D deficiency Thyromegaly History of cancer DDD (degenerative disc disease), lumbar Lung mass Hypertension Impaired mobility and activities of daily living History of left breast cancer Lump of right breast Fall Abnormal breast biopsy DJD (degenerative joint disease) CAD (coronary artery disease) Hyperlipidemia Diabetes Hypothyroid Breast cancer left Surgical History (Updated 06/29/24 @ 02:18 by Roberto Carlos Mcdermott DO) Hx of breast lump removal History of right hip hemiarthroplasty Hx of lumbar discectomy Hx of heart artery stent History of thyroid surgery History of ankle surgery H/O elbow surgery left elbow History of cardiac cath with stents x 7; RCA, LAD, ISR LAD Hx of tonsillectomy History of left mastectomy History of ankle surgery Family History Father Diabetes Enlarged heart Mother CAD (coronary artery disease) Sister Lung cancer Brother Legacy FamHx Relation: Brother(s) Cancer Father Heart disease Diabetes Family/Other Family history of other condition Legacy FamHx Problem: both children are adopted:1 sister-HTN, high choleterol, enlarged heart:1 sister spot on lun brother cancer-:1 brother stroke- Mother Heart disease Hypertension Diabetes Social History Smoking Status: Never smoker Substance Use Type: None Meds Medications and Allergies Allergies metformin Allergy (Unknown, Verified 06/09/24 10:56) Vomiting oxycodone Allergy (Unknown, Verified 06/09/24 10:56) Hallucinating Penicillins Allergy (Unknown, Verified 06/09/24 10:56) Anaphylaxis cilostazol Allergy (Verified 06/09/24 10:56) unknown Home Medications calcium carbonate 500 mg-vitamin D3 5 mcg (200 unit) tablet (Oyster Shell Calcium-Vitamin D3) 1 tab PO BID #60 tabs 10/26/23 [Rx Confirmed 06/09/24] levothyroxine 50 mcg tablet 50 mcg PO DAILY.0630 30 days #30 tabs 10/26/23 [Rx Confirmed 06/09/24] ascorbic acid (vitamin C) 500 mg tablet (Vitamin C) 500 mg PO DAILY 30 days #30 tabs 11/03/23 [Rx Confirmed 06/09/24] aspirin 81 mg tablet,delayed release 81 mg PO DAILY #0 tabs 11/03/23 [Rx Confirmed 06/09/24] blood sugar diagnostic (OneTouch Ultra Test strips) #10 ea 01/04/24 [History Confirmed 06/09/24] blood-glucose meter (OneTouch Ultra2 Meter) #1 ea 01/04/24 [History Confirmed 06/09/24] lancets 30 gauge (OneTouch Delica Plus Lancet) #100 ea 01/04/24 [History Confirmed 06/09/24] diphenhydramine HCl 25 mg capsule (Benadryl) 25 mg PO TID PRN 01/14/24 [History Confirmed 06/09/24] acetaminophen 325 mg tablet (Tylenol) 650 mg PO TID PRN 01/17/24 [History Confirmed 06/09/24] blood-glucose sensor (FreeStyle Rocio 3 Sensor device) #6 ea 02/24/24 [Rx Confirmed 06/09/24] diclofenac sodium 1 % topical gel 2 g topical TID PRN 03/07/24 [History Confirmed 06/09/24] melatonin 5 mg tablet 5 mg PO QHS PRN 03/07/24 [History Confirmed 06/09/24] senna [Senokot] PO 03/07/24 [History Confirmed 06/09/24] spironolactone 25 mg tablet 25 mg PO BID 03/07/24 [History Confirmed 06/09/24] zolpidem 5 mg tablet 5 mg PO QHS PRN insomnia 90 days #90 tabs 03/13/24 [Rx Confirmed 06/09/24] propranolol 160 mg capsule,24 hr,extended release See Rx Instructions .Route .COMPLEX #90 caps 03/23/24 [Rx Confirmed 06/09/24] potassium chloride 10 mEq tablet,extended release (Klor-Con) 10 meq PO DAILY 90 days #90 tabs 06/05/24 [Rx Confirmed 06/09/24] atorvastatin 80 mg tablet 80 mg PO QHS #90 tabs 06/06/24 [Rx Confirmed 06/09/24] insulin glargine 100 unit-lixisenatide 33 mcg/mL subcutaneous pen (Soliqua 100/33) 23 unit (0.23 mL) subcut DAILY #30 mL 06/07/24 [Rx Confirmed 06/09/24] Exam Const General: cooperative Nutritional Appearance: average body habitus Orientation: alert, awake and oriented x3 HEENT Head: normal to inspection Neck Neck: normal visual inspection Chest Chest palpation & inspection: normal inspection of the chest Resp Effort & Inspection: normal respiratory effort Auscultation: clear to auscultation bilaterally Cardio Palpation: normal PMI Rate: regular rate Rhythm: regular rhythm Heart Sounds: S1 normal and S2 normal Pulses: radial pulses present and femoral pulses present GI Palpation: soft Skin General: no rashes or lesions noted Neuro General: patient alert, patient awake and patient oriented x3 Cognition: normal cognition Speech: speech normal Extrem General: no clubbing, cyanosis or edema EKG Interpretations EKG EKG results cardiology: sinus rhythm PA, pacemaker, normal Myocardial infarction: anterior PA (acute or recent) A&P - Cardiology (1) ST elevation myocardial infarction (STEMI) of anterior wall: Code(s): I21.09 - ST elevation (STEMI) myocardial infarction involving other coronary artery of anterior wall (2) CAD (coronary artery disease): Qualifiers: Coronary Disease-Associated Artery/Lesion type: [place] artery [place] vs. transplanted heart: [place] heart Code(s): I25.10 - Atherosclerotic heart disease of [place] coronary artery without angina pectoris (3) Diabetes: Code(s): E11.9 - Type 2 diabetes mellitus without complications (4) Hyperlipidemia: Code(s): E78.5 - Hyperlipidemia, unspecified (5) History of left breast cancer: Code(s): Z85.3 - Personal history of malignant neoplasm of breast (6) History of thyroid surgery: Code(s): Z98.890 - Other specified postprocedural states (7) History of cardiac cath: Code(s): Z98.890 - Other specified postprocedural states Plan Emergent cath/PCI Documented By: Roberto Carlos Mcdermott DO 06/29/24 0206 Signed By: <Electronically signed by Roberto Carlos Mcdermott DO> 06/29/24 0325 [facility] Work Phone: 1(870) 738-458908-22-2024 [facility] History of Present illness Narrative* Yusuf Hayward MD - 01/26/2024 1:00 PM EDT Subjective Heidi Palmer is a 83 y.o. [...] a heart smart diet. She was congratulated onher maintenance of ideal body mass index. Vitals: [...] 3 Assessment/Plan 1. Coronary artery disease involving [place] coronary artery of [place] heart without angina pectoris Patient has not [...] Scribe Attestation By signing my name below, I, Marsha Rasheed LPN attest that this documentation has been prepared under the direction and in the presence of Liberty Hayward MD. Provider Attestation - Scribe documentation All medical record entries made by the Scribe were at my direction and personally dictated by me. Ihave reviewed the chart and agree that the record accurately reflects my personal performance of the history, physical exam, discussion and plan. documented in this [facility] Work Phone: 1(362) 498-136103-20-2024 Instructions* Patient Instructions* Rain Michaud LPN - 01/26/2024 1:00 PM [...] Fall Prevention Education Given. [facility] Work Phone: 1(576) 938-566902-07-2024 Evaluation note* Encounter Date Diagnosis Assessment Notes Treatment Notes Treatment Clinical Notes Dec, Type 2 diabetes mellitus with hyperglycemia, without long-term current use of insulin (ICD-10 - E11.65) Heidi and her Lpzypgyb-mn-Hpp, Dee came in today for download and [...] Tova Diaz APRN we will discontinue Pioglitizone. Heidi's BG is declining over long periods of time which indicates overbasalization. Tova Mays and I discussed starting Soliqua. Tova Roberts APRN ordered the patient to discontinue Lantus and start Soliqua 15 units daily. 75 minutes were spent evaluating the patient's report, discussing its findings and making medication changes by Florence Rose RN, [facility]. Dec, Norma Aleman 12/15/2023 04:31:21 PM > noted while patient on site, documentation reviewed and agree [facility] Other 01-11-2024 Evaluation note* Encounter Date Diagnosis [...] diabetes medication issues. 6. Prescriptions: 11-18-2023 uses [facility] Nov, Vitamin D deficiency (ICD-10 - E55.9) [...] was counseling done by myself, Tova BECKETT. [facility] Other 01-09-2024 Evaluation note* Encounter Date Diagnosis [...] of right hip hemiarthroplasty (ICD-10 - Z96.641) [facility] Other 01-02-2024 Evaluation note* Encounter Date Diagnosis [...] 1 (ICD-10 - L89.91) request to monitor [facility] Other 12-07-2023 Progress note Author Chin Rodarte [facility] October 14, 2023 12:34pm Note Date/Time October 14, 2023 1 2:34pm [facility] [address] [place] [address] Hospitalist Progress Note Signed Patient: Heidi Palmer MR#: [id number] : 1940 Acct:[id number] Age/Sex: 83 / F Adm Date: 3 Loc: Room: [address] [place] [address] Type: ADM IN Attending Dr: Chin Rodarte [...] 17:53 10/14/23 09:55 Levaquin IV Infused DAILY ILIANA Infusion Insulin Aspart 0 units 10/13/23 22:00 10/14/23 12:16 Insulin Aspart 300 Units/3 Ml Insuln.Pen SUBCUT 10/12/24 21:59 8 units ACHS ILIANA Administration Protocol Insulin Glargine 8 units 10/13/23 [...] signed by Chin Rodarte MD> 10/14/23 1234 [facility] Work Phone: 1(859) 724-549312-06-2023 Consult note Author Last Boston [facility] October 13, 2023 2:52pm Note Date/Time October 13, 2023 1 :18pm [facility] [address] [place] [address] Physiatry (Rehab) Consult Note Signed Patient: Heidi Palmer MR#: [id number] : 1940 Acct:[id number] Age/Sex: 83 / F Adm Date: 3 Loc: Room: [address] [place] [address] Type: ADM IN Attending Dr: Chin Rodarte [...] negative unless noted below or in HPI [facility] Medical History Abnormal breast biopsy Breast cancer [...] MPV Neut % (Auto) Lymph % (Auto) Hoke % (Auto) Eos % (Auto) Baso % (Auto) Nucleat RBC Rel Count Neut # (Auto) Lymph # (Auto) Hoke # (Auto) Eos # (Auto) Baso # [...] Turbid A Urine pH 5.5 Ur Specific [place] 1.031 H Urine Protein 300 H Urine [...] MPV Neut % (Auto) Lymph % (Auto) Hoke % (Auto) Eos % (Auto) Baso % (Auto) Nucleat RBC Rel Count Neut # (Auto) Lymph # (Auto) Hoke # (Auto) Eos # (Auto) Baso # (Auto) Lymphocytes % Monocytes % Segmented Neutrophils Reactive Lymphocytes Platelet Estimate Giant Platelets Plt Morphology Comment RBC Morphology Polychromasia PHA Creatinine Clear Sodium Potassium Chloride Carbon Dioxide Anion Gap BUN Creatinine Est GFR (CKD-EPI) Glucose POC Glucose 151 236 299 POC Glucose Comment Glu2: cleaned meter Calcium Urine Color Urine Appearance Urine pH Ur Specific [place] Urine Protein Urine Glucose (UA) Urine Ketones [...] % (Auto) N/A Lymph % (Auto) N/A Hoke % (Auto) N/A Eos % (Auto) N/A Baso % (Auto) N/A Nucleat RBC Rel Count N/A Neut # (Auto) N/A Lymph # (Auto) N/A Hoke # (Auto) N/A Eos # (Auto) N/A [...] Color Urine Appearance Urine pH Ur Specific [place] Urine Protein Urine Glucose (UA) Urine Ketones [...] Code(s): I25.10 - Atherosclerotic heart disease of [place] coronary artery without angina pectoris Status: Acute [...] Allied health note review, nursing note review, it web development consultant note review, discussion with nursing and case management, and more than 50% of my time was spent on counseling and coordination of care, time spent 40 minutes Patient was personally seen by me, Dr. Boston, on the day of encounter, reviewed the history and the relevant portions of the chart, including current orders, allied health and it web development consultant notes, labs/imaging and performed crews elements of exam and I formulated the plan of care and facilitated the medical decision making. Documented By: Last Boston MD 1245 Signed By: <Electronically signed by Last Boston MD> 10/13/23 1459 [facility] Work Phone: 1(236) 212-394312-06-2023 Progress note Author Chin Rodarte [facility] October 13, 2023 11:53am Note Date/Time October 13, 2023 1 1:53am [facility] [address] [place] [address] Hospitalist Progress Note Signed Patient: Heidi Palmer MR#: [id number] : 1940 Acct:[id number] Age/Sex: 83 / F Adm Date: 3 Loc: 3T Room: [address] [place] [address] Type: ADM IN Attending Dr: Chin Rodarte [...] Lactated Ringers IV 10/11/24 14:59 75 mls/hr .[id number] ILIANA Administration Levofloxacin 500 mg in 100 mls @ 100 mls/hr 10/12/23 17:53 10/13/23 10:25 Levaquin IV 100 mls/hr DAILY ILIANA Administration Insulin Aspart 1 units 10/12/23 16:30 10/13/23 09:38 Insulin Aspart 300 Units/3 Ml Insuln.Pen SUBCUT 10/11/24 16:29 1 units ACHS ILIANA Administration Protocol Levothyroxine Sodium 50 mcg 10/12/23 06:30 10/13/23 05:33 Levothyroxine 50 Mcg Tablet PO 10/11/24 06:29 50 mcg DAILY@0630 ILIANA Administration Lidocaine HCl 0.1 ml 10/12/23 10:39 Lidocaine 1% 50 Ml Vial INTRADERMA PREOP PRN Venipuncture x 1 Dose Liraglutide 18 mg 10/12/23 09:00 Liraglutide 18 Mg/3 Ml Pen.Injctr SUBCUT 10/11/24 08:59 [facility]ILY [facility] Melatonin 5 mg 10/11/23 16:47 Melatonin 5 [...] signed by Chin Rodarte MD> 10/13/23 1153 [facility] Work Phone: [phone] 861-151612-06-2023 Consult note Author Tosha Patel [facility] October 13, 2023 10:49am Note Date/Time October 13, 2023 1 0:37am [facility] [address] [place] [address] Hem/Onc Consult Note - IP Signed Patient: Heidi Palmer MR#: [id number] : 1940 Acct:[id number] Age/Sex: 83 / F Adm Date: 3 Loc: Room: [address] [place] [address] Type: ADM IN Attending Dr: Chin Rodarte [...] reduction and internal fixation on 10/12/2023here at [facility] by orthopedic surgery. As part of the [...] had a left breast surgery probably at [facility] about 3035 years ago and she [...] close by. The daughter Lyubov lives in [place]. Patient has not seen oncologist to her [...] lethargic still from recent surgery doneon 10/12/2023. [facility] - Medical History Medical History: Medical History (Last Updated 10/11/23 @ 17:36 by Annie Carrera, RN) Abnormal breast biopsy Breast cancer CAD (coronary artery disease) Diabetes DJD (degenerative joint disease) Hyperlipidemia Hypothyroid Lump of right breast - Surgical History Surgical History: Surgical History (Last Updated 10/11/23 @ 17:36 by Annie Carrera, RN) H/O elbow surgery left elbow History [...] Turbid A, Urine pH 5.5, Ur Specific [place] 1.031 H, Urine Protein 300 H, Urine [...] needs to follow-up with me at the [facility] within the next 2 to 4 weeks [...] for coordination of care (as documented) and [id number] counseling of patient and/or family. Documented By: Tosha Patel MD 10/13/23 1035 Signed By: <Electronically signed by Tosha Patel MD> 10/13/23 1049 [facility] Work Phone: 1(341) 414-598212-06-2023 Progress note Author Epi Booth [facility] October 13, 2023 7:08am Note Date/Time October 13, 2023 6 :47am [facility] [address] [place] [address] Orthopedic Progress Note Signed Patient: Heidi Palmer MR#: [id number] : 1940 Acct:[id number] Age/Sex: 83 / F Adm Date: 3 Loc: Room: [address] [place] [address] Type: ADM IN Attending Dr: Chin Rodarte [...] % (Auto) 75.5 Lymph % (Auto) 12.5 Hoke % (Auto) 9.7 Eos % (Auto) 1.1 Baso % (Auto) 1.2 Nucleat RBC Rel Count 0.0 Neut # (Auto) 9.9 H Lymph # (Auto) 1.6 Hoke # (Auto) 1.3 H Eos # (Auto) [...] Color Urine Appearance Urine pH Ur Specific [place] Urine Protein Urine Glucose (UA) Urine Ketones Urine Occult Blood Urine Nitrite Urine Bilirubin Urine Urobilinogen Ur Leukocyte Esterase Urine RBC Urine WBC Ur Squamous Epith Cells Urine Bacteria Hyaline Casts 10/12/23 10/12/23 10/12/23 10:58 11:47 13:05 Corrected WBC Uncorrected WBC Count RBC Hgb Hct MCV MCH MCHC RDW Plt Count MPV Neut % (Auto) Lymph % (Auto) Hoke % (Auto) Eos % (Auto) Baso % (Auto) Nucleat RBC Rel Count Neut # (Auto) Lymph # (Auto) Hoke # (Auto) Eos # (Auto) Baso # (Auto) PHA Creatinine Clear Sodium Potassium Chloride Carbon Dioxide Anion Gap BUN Creatinine Est GFR (CKD-EPI) Glucose POC Glucose 278 252 197 POC Glucose Comment Calcium Urine Color Urine Appearance Urine pH Ur Specific [place] Urine Protein Urine Glucose (UA) Urine Ketones Urine Occult Blood Urine Nitrite Urine Bilirubin Urine Urobilinogen Ur Leukocyte Esterase Urine RBC Urine WBC Ur Squamous Epith Cells Urine Bacteria Hyaline Casts 10/12/23 10/12/23 10/12/23 14:51 16:10 16:37 Corrected WBC Uncorrected WBC Count RBC Hgb Hct MCV MCH MCHC RDW Plt Count MPV Neut % (Auto) Lymph % (Auto) Hoke % (Auto) Eos % (Auto) Baso % (Auto) Nucleat RBC Rel Count Neut # (Auto) Lymph # (Auto) Hoke # (Auto) Eos # (Auto) Baso # (Auto) PHA Creatinine Clear Sodium Potassium Chloride Carbon Dioxide Anion Gap BUN Creatinine Est GFR (CKD-EPI) Glucose POC Glucose 207 151 POC Glucose Comment Glu2: cleaned meter Glu2: cleaned meter Calcium Urine Color Dark yellow A Urine Appearance Turbid A Urine pH 5.5 Ur Specific [place] 1.031 H Urine Protein 300 H Urine [...] MPV Neut % (Auto) Lymph % (Auto) Hoke % (Auto) Eos % (Auto) Baso % (Auto) Nucleat RBC Rel Count Neut # (Auto) Lymph # (Auto) Hoke # (Auto) Eos # (Auto) Baso # (Auto) PHA Creatinine Clear Sodium Potassium Chloride Carbon Dioxide Anion Gap BUN Creatinine Est GFR (CKD-EPI) Glucose POC Glucose 236 POC Glucose Comment Calcium Urine Color Urine Appearance Urine pH Ur Specific [place] Urine Protein Urine Glucose (UA) Urine Ketones Urine Occult Blood Urine Nitrite Urine Bilirubin Urine Urobilinogen Ur Leukocyte Esterase Urine RBC Urine WBC Ur Squamous Epith Cells Urine Bacteria Hyaline Casts Assessment / Plan Assessment and plan (1) Closed subcapital fracture of neck of right femur: Plan: 1. Hopeful discharge to extended care facility tomorrow 2. Weightbearing as tolerated involved extremity 3. [place] out 14 days postop 4. Repeat hip [...] Code(s): I25.10 - Atherosclerotic heart disease of [place] coronary artery without angina pectoris Status: Acute Documented By: Epi Booth MD 10/13/23 0645 Signed By: <Electronically signed by MD Epi oBoth> 10/13/23 0708 [facility] Work Phone: [phone] 137-451612-06-2023 Consult note Author Epi Booth [facility] October 13, 2023 6:54am Note Date/Time October 12, 2023 7 :25am [facility] [address] [place] [address] Orthopedic Consult Note Signed Patient: Heidi Palmer MR#: [id number] : 1940 Acct:[id number] Age/Sex: 83 / F Adm Date: 3 Loc: 3T Room: [address] [place] [address] Type: ADM IN Attending Dr: Chin Rodarte [...] negative unless noted below or in HPI [facility] Medical History (Updated 10/11/23 @ 17:36 by [...] % (Auto) 67.6, Lymph % (Auto) 21.3, Hoke % (Auto) 8.4, Eos % (Auto) 1.7, Baso % (Auto) 1.0, Nucleat RBC Rel Count 0.1, Neut # (Auto) 6.9, Lymph # (Auto) 2.2, Hoke # (Auto) 0.8, Eos # (Auto) 0.2, [...] Code(s): I25.10 - Atherosclerotic heart disease of [place] coronary artery without angina pectoris Documented By: Epi Booth MD 10/12/23722 Signed By: <Electronically signed by MD Epi Booth> 10/13/23 0654 [facility] Work Phone: 1(183) 858-913412-05-2023 Hospital Discharge instructions Additional Instructions REHAB TO MANAGE: PT/OT to eval and treat Monitor VS per protocol Monitor FSBS per protocol Monitor Ortho. assessment--Right hip fracture s/p hemiarthroplasty on 10/12/23 Please follow Ortho. instructions: *Weightbearing as tolerated *[place] out 14 days postop *Repeat hip x-rays in 14 days, have these sent to Dr. Booth Maintain high risk fall precautions [facility] Phone: [phone]) 854-977012-05-2023 Progress note Author Chin Rodarte [facility] October 12, 2023 11:21am Note Date/Time October 12, 2023 1 1:21am [facility] [address] [place] [address] Hospitalist Progress Note Signed Patient: Heidi Palmer MR#: [id number] : 1940 Acct:[id number] Age/Sex: 83 / F Adm Date: 3 Loc: 3T Room: [address] [place] [address] Type: ADM IN Attending Dr: Chin Rodarte [...] Drops (0.4 Ml Droperette) EYE-BOTH 10/10/2416:59 Q12H IILANA Docusate Sodium 100 mg 10/11/23 16:47 Docusate 100 Mg Capsule PO 10/10/24 16:46 BID PRN Constipation Enoxaparin Sodium 40 mg 10/12/23 10:00 10/12/23 10:56 Enoxaparin 40 Mg/0.4 Ml Syringe SUBCUT 10/11/24 09:59 Not Given DAILY@10 ILIANA Lactated Ringer's 1,000 mls @ 20 mls/hr [...] Tablet PO 10/11/24 06:29 50 mcg DAILY@0630 [facility] Administration Lidocaine HCl 0.1 ml 10/12/23 10:39 Lidocaine 1% 50 Ml Vial INTRADERMA PREOP PRN Venipuncture x 1 Dose Liraglutide 18 mg 10/12/23 09:00 Liraglutide 18 Mg/3 Ml Pen.Injctr SUBCUT 10/11/24 08:59 DAILY [facility] Lisinopril 5 mg 10/12/23 09:00 10/12/23 10:55 Lisinopril 5 Mg Tablet PO 10/11/24 08:59 Not Given DAILY [facility] Melatonin 5 mg 10/11/23 16:47 Melatonin 5 [...] 16:47 Ondansetron 4 Mg/2 Ml Vial IV-PUSH 12/03/24 16:46 Q8H PRN Nausea And Vomiting Oxycodone/Acetaminophen [...] pain NPO Plan for ORIF right hip todya PT/OT Social service consult Lung mass: Hisotry [...] 10/12/23 1118 Signed By: <Electronically signed by Cihn Rodarte MD> 10/12/23 1121 [facility] Work Phone: 1(772) 309-280212-04-2023 History and physical note Author Chin Rodarte [facility] October 11, 2023 4:46pm Note Date/Time October 11, 2023 4 :13pm [facility] [address] [place] [address] Hospitalist H&P Signed Patient: Heidi Palmer MR#: [id number] : 1940 Acct:[id number] Age/Sex: 83 / F Adm Date: 3 Loc: Room: [address] [place] [address] Type: ADM IN Attending Dr: Chin Rodarte [...] negative unless noted below or in HPI [facility] Medical History (Updated 10/11/23 @ 16:39 by [...] % (Auto) 21.3 % (.) 10/11/23 13:43 Hoke % (Auto) 8.4 % (.) 10/11/23 13:43 Eos % (Auto) 1.7 % (.) 10/11/23 13:43 Baso % (Auto) 1.0 % (.) 10/11/23 13:43 Nucleat RBC Rel Count 0.1 /100 WBC (0-0.5) 10/11/23 13:43 Neut # (Auto) 6.9 x10E3/uL (1.8-7.7) 10/11/23 13:43 Lymph # (Auto) 2.2 x10E3/uL (1.00-4.8) 10/11/23 13:43 Hoke # (Auto) 0.8 x10E3/uL (0.0-0.8) 10/11/23 13:43 [...] <Electronically signed by Chin Rodarte MD> 10/11/23 3154 [facility] Work Phone: [phone]) 496-762612-04-2023 Evaluation note* Encounter Date Diagnosis Assessment Notes Treatment Notes Treatment Clinical Notes Oct, Type 2 diabetes mellitus with hyperglycemia, without long-term current use of insulin (ICD-10 - E11.65) Pt here for appointment today with sister, agreeable to wear a Rocio 3 sample. Rocio training discussed, instructed on use and application on personal Doximity phone. Patient cleansed posterior side of right [...] up appointment in 2 weeks with RN software educator and in 6 weeks with provider. [...] issues. 6. Prescriptions: New patient 10-11-2023 uses [facility]/[place] Oct, Vitamin D deficiency (ICD-10 - E55.9) [...] the parking lot. She was taken to [facility] emergency room with hip pain and treated [facility] Other 11-30-2023 Evaluation note* Encounter Date Diagnosis Assessment Notes Treatment Notes Treatment Clinical Notes Sep, Acute non-recurrent maxillary sinusitis (ICD-10 - J01.00) Pt declines to come to office for in-person visit. She declines the offer to get a CXR. She requests rx to [facility]. She understands that she may need to go to ER again or come to office if symptoms worsen. [facility] Other 10-12-2023 Evaluation note* Encounter Date Diagnosis Assessment Notes Treatment Notes Treatment Clinical Notes Aug, Insomnia, unspecified type (ICD-10 - G47.00) [facility] Other 09-11-2023 Evaluation note* Encounter Date Diagnosis [...] Chronic, stable - requests refill. Denies oversedation. [facility] Other 08-14-2023 Evaluation note* Encounter Date Diagnosis Assessment Notes Treatment Notes Treatment Clinical Notes Jun, Left-sided chest pain (ICD-10 - R07.9) I will notify her bar helper of this recent event and forward EKG [...] (ICD-10 - R39.9) UA CS at hospital. [facility] Other 04-12-2023 Evaluation note* Encounter Date Diagnosis Assessment Notes Treatment Notes Treatment Clinical Notes Feb, Insomnia, unspecified type (ICD-10 - G47.00) [facility] Other 04-11-2023 Evaluation note* Encounter Date Diagnosis [...] to nail, subsequent encounter (ICD-10 - S60.022D) [facility] Other 03-01-2023 Evaluation note* Encounter Date Diagnosis [...] to nail, subsequent encounter (ICD-10 - S60.022D) [facility] Other 02-14-2023 Evaluation note* Encounter Date Diagnosis [...] discussed that this injury can lead to long filler cigar roller machine elbow pain and stiffness. Patient is in need of a hinged elbow brace due to their diagnosis of left radial head fracture. This is needed for aid in activities of daily living by increasing safety and stability. This will be needed for approximately life time. Order for physical therapy sent in for patient. [facility] Other 02-10-2023 NotePROCEDURE: XR HUMERUS LT MIN [...] Electronically authenticated by: GRADY PARKER Date: 2022-12-18 13:45[facility]02-10-2023 NotePROCEDURE: XR HUMERUS LT MIN 2V, [...] Electronically authenticated by: GRADY PARKER Date: 2022-12-18 13:45[facility]02-10-2023 NotePROCEDURE: XR HUMERUS LT MIN 2V, [...] Electronically authenticated by: GRADY PARKER Date: 2022-12-18 13:45[facility]01-16-2023 Evaluation note* Encounter Date Diagnosis Assessment [...] labs and assess stablility at this time. [facility] Other Chihe complaint+Reason for visit Narrative* Chief Complaint Referral Mica warren Hip pain right femoral neck fx s/p giana-arthroplasty [facility] Z96.641 Dm DM Lung Mass Reason for [...] of thyroid surgery Mass of right lung [facility] Work Phone: Chief complaint+Reason for visit Narrative* Chief Complaint Referral Mica Juli n Hip pain right femoral neck fx s/p giana-arthroplasty [facility] Z96.641 Dm Lung Mass DM Amb Documentation [...] of thyroid surgery Mass of right lung [facility] Work Phone: Discharge summary Author Chin Rodarte [facility] October 15, 2023 12:16pm Note Date/Time October 15, 2023 1 2:16pm [facility] [address] [place] [address] Discharge Summary Signed Patient: Heidi Palmer MR#: [id number] : 1940 Acct:[id number] Age/Sex: 83 / F Adm Date: 3 Loc: Room: [address] [place] [address]: Chin Rodarte MD Copies to: [...] Actual Procedures p OR Hip Giana-Arthroplasty(Right) - Epi Booth MD Diagnostic Studies Completed and Pending [...] 7 DAYS Documented By: Chin Rodarte MD 10/15/231214 Signed By: <Electronically signed by Chin Rodarte MD> 10/15/236 [facility] Work Phone: Discharge summary Author Roberto Carlos Mcdermott [facility] June 30, 2024 2:13pm Note Date/Time June 30, 2024 2: 13pm [facility] [address] [place] [address] Discharge Summary Signed Patient: Heidi Palmer MR#: [id number] : 1940 Acct:[id number] Age/Sex: 84 / F Adm Date: 4 Loc: Room: [address] [place] [address]: Roberto Carlos Mcdermott DO Copies to: MD Roberto Carlos Ayala DO~ Providers Date of Discharge: 06/30/24 Discharging Provider: Roberto Carlos Mcdermott Primary Care Provider: Mica Hook Consults: 06/29/24 04:01 Consult to Cardiac Rehabilitation Routine Comment: Physician Instructions: Reason for Consult: Patient Education 06/29/24 04:04 Consult to Pulmonology Routine Comment: Consulting Provider: Tl Wild Reason For Exam: Critical Care Management Has Provider Been Notified: Yes Date of Notification: 06/29/24 Time of Notification: 09:16 Extended Comment: Stable Ant STEMI Discharge Diagnosis (1) ST elevation myocardial infarction (STEMI) of anterior wall: (2) CAD (coronary artery disease): (3) Diabetes: (4) Hyperlipidemia: (5) History of left breast cancer: (6) History of thyroid surgery: (7) History of cardiac cath: Final Diagnosis Final Discharge Diagnosis: 1. Anterior STEMI 2. Subacute stent thrombosis mid LAD and distal RCA 3. Ischemic cardiomyopathy Summary Hospital Course Hospital course: 84-year-old female admitted [address] elevation PA and underwent rapid revascularization of the mid LAD and distal RCA x 4 drug-elutingstents, due to subacute stent thrombosis in both LAD and distal RCA. LV function is moderately impaired with ejection fraction of 35 to 40% with anteroapical akinesis. She has been placed on appropriate GDMT including DAPT, follow-up will be arranged within the next 2 weeks. She is in need of preoperative clearance prior to cataract surgery and there is no contraindications from a cardiovascular standpoint to proceed with cataract surgery other than she needs to continue DAPT Condition Condition at Discharge: Stable Status at Discharge Functional status at discharge: independent ambulation Overall status at discharge: patient is back to baseline Time Spent with Patient Time spent providing/coordinating discharge services (# min): 30 Surgeries and Procedures Operation Date: 06/29/24 03:00 Actual Procedures p CL LHC [facility] COR Angio - W Kranthi Mcdermott, DO p CL PCI AMI 1st Vessel LAD MARIANELA - W Kranthi Mcdermott, DO p CL Closure Device Placement 0 - W Kranthi Mcdermott, DO p CL Stent 1st Vessel RCA MARIANELA - W Kranthi Mcdermott, DO Complications Complications: None Discharge Plan Discharge Plan Patient Disposition: Home Diet: Low-Cholesterol Additional Instructions: DISCHARGE INSTRUCTIONS FOR ANGIOPLASTY/CORONARY/PERIPHERAL/STENT IMPLANT FOR ADULT ANTICOAGULATION -Since the greatest risk of a blood clot forming with the stent occurs in the first 2-3 weeks after implantation, you will need to take anticoagulants for at least 12-18 months. ANTICOAGULATION MEDICATION Aspirin 81mg once a day, Ticagrelor (Brilinta) 90mg twice a day STATIN MEDICATION Atorvastatin (Lipitor) 80 mg Drug-Eluting Stent (MARIANELA) DO NOT discontinue Brilinta/Aspirin during the first few months regardless of what you are advised by your family doctor or pharmacist, without first calling the bar helper who implanted the stent. If you require pain relief during this time, please take only ACETAMINOPHEN (TYLENOL)- NO additional aspirin or ibuprofen. DISCHARGE ACTIVITIES ARE FOLLOWS: First week after discharge: -Take it easy at home, no strenuous activity. -Do not lift or pull objects over 10-15 pounds, including children, and groceries for four weeks. If puncture site is at wrist do NOT lift more than three pounds for three days. - May walk up stairs. -May shower. -No excessive scrubbing of the affected site (groin). -May ride in car. -May resume sexual intercourse after 1-2 weeks. -No MRI for 12 days. -May drive in 4-7 days. -If puncture site is at the wrist do not manipulate the wrist for 24 hours, and no soaking wrist for three days. Second Week: -May take a bath -May start walking 3 times a week for 15-20 minutes at a leisurely pace. You should be able to carry on a conversation comfortably without feeling winded. -No strenuous activity as in jogging, running, weight lifting, stair steppers, etc. until the bar helper approves these activities. Check with the bar helper on your first follow-up visit. CALL YOUR ASSEMBLER SEMICONDUCTOR: -If bleeding should occur from the catheter insertion site- apply pressure to the site then immediately call us. -Report any fever, redness, drainage, increased swelling, or firmness at the catheter insertion site. Some bruising or slight swelling may be present at thetime of discharge. -Should arm or leg become cold, numb, white, or blue, contact the bar helper immediately. -IF you should experience episodes of angina, e.g. chest discomfort, heaviness, tightness, pressure burning with or without radiation to the neck, jaw, arms or back- use 1 Nitrostat tablet under your tongue every 5-10 minutes and up to three tablets. IF NO RELIEF, CALL 911 or GO TO THE NEAREST EMERGENCY ROOM. -Please notify our office if you have recurrent angina. -Cardiac Rehab Education Provided. Participation in the Cardiopulmonary Rehabilitation program is recommended. The attending bar helper or a nurse clinician should provide you with specificinstructions regarding activity, diet, medications, and further follow up for you. Follow the medication instructions provided on your discharge. If the dosages and instructions on this sheet differ from the dosage and instructions on the bottle, follow the instructions on the bottle. [facility] is not responsible for incorrect prescription information provided by thepatient during their visit. Do not stop your medications without consulting your health care provider. Please take the list with you to your next doctor's appointment. Instructions: Coronary Angioplasty (DC), Coronary Stenting (DC), Angina (DC), Chest Pain (DC), Drug Eluting Stents, Know your Meds Prescriptions: New Brilinta 90 mg Tablet 90 mg PO BID 90 Days Qty: 180 3RF nitroglycerin 0.4 mg Tablet, Sublingual 0.4 mg sublingual Q5M PRN (Reason: Chest Pain) 30 Days Qty: 25 3RF metoprolol succinate 50 mg Tablet Extended Release 24 Hr 50 mg PO DAILY 30 Days Qty: 30 12RF valsartan 40 mg tablet 40 mg PO BID 30 Days Qty: 60 12RF Continued (DME) FreeStyle Rocio 3 Sensor Device See Rx Instructions miscellaneous .MEDSUPPLY Qty: 6 3RF Rx Instructions: As directed invitro, change every 14 days atorvastatin 80 mg tablet 80 mg PO QHS Qty: 90 1RF sennosides-docusate sodium 8.6-50 mg tablet 1 tab-cap PO BID zinc gluconate-vitamin C 6.4-60 mg tablet,chewable 1 tab PO DAILY Rx Instructions: Takes 50 mg of Zinc Gluconate and no more than 500 mg of Vitamin C. zolpidem 5 mg tablet 10 mg PO QHS PRN (Reason: insomnia) Soliqua 100/33 100 unit-33 mcg/mL insulin pen 17 unit subcut DAILY Rx Instructions: Titrate to 30 u glargine once daily, has written instructions levothyroxine 50 mcg Tablet 50 mcg PO DAILY.0630 30 Days Qty: 30 0RF calcium carbonate-vitamin D3 [Oyster Shell Calcium-Vit D3] 500 mg-5 mcg (200 unit) Tablet 1 tab PO BID Qty: 60 0RF aspirin 81 mg Tablet,Delayed Release (Dr/Ec) 81 mg PO DAILY Qty: 0 0RF ascorbic acid (vitamin C) [Vitamin C] 500 mg Tablet 500 mg PO DAILY 30 Days Qty: 30 0RF diphenhydramine HCl [Benadryl] 25 mg capsule 25 mg PO HS PRN (Reason: sinus symptoms, Sleep) acetaminophen [Tylenol] 325 mg tablet 325 mg PO TID PRN (Reason: pain) diclofenac sodium 1 % gel 2 g topical TID PRN (Reason: Arthritis) spironolactone 25 mg tablet 25 mg PO BID melatonin 5 mg tablet 5 mg PO QHS PRN (Reason: sleep) (DME) lancets [OneTouch Delica Plus Lancet] 30 gauge misc See Rx Instructions .ROUTE .MEDSUPPLY Qty: 100 Rx Instructions: As directed (DME) OneTouch Ultra Test Strip See Rx Instructions .ROUTE .MEDSUPPLY Qty: 10 Rx Instructions: As directed (DME) blood-glucose meter [OneTouch Ultra2 Meter] Misc See Rx Instructions .ROUTE .MEDSUPPLY Qty: 1 Rx Instructions: As directed Changed furosemide 40 mg tablet 40 mg PO 2XW 30 Days Qty: 9 12RF Discontinued propranolol 160 mg capsule,extended release 24 hr See Rx Instructions .ROUTE .COMPLEX Qty: 90 0RF Dose Instruction: TAKE 1 CAPSULE BY MOUTH EVERY DAY Rx Instructions: TAKE 1 CAPSULE BY MOUTH EVERY DAY potassium chloride [Klor-Con 10] 10 mEq tablet extended release 10 meq PO DAILY 90 Days Qty: 90 0RF Follow Up: Roberto Carlos Mcdermott DO [Active Staff - D.O.] - 07/13/24 10:30 am Exam Physical Exam Vital Signs: Temp Pulse Resp BP Pulse Ox O2 Del Method O2 Flow Rate 98.0 F 73 20 125/60 97 Room Air 2 06/30/24 13:00 06/30/24 13:00 06/30/24 13:00 06/30/24 13:00 06/30/24 13:00 06/30/24 13:00 06/29/24 04:35 Const General: cooperative Nutritional Appearance: average body habitus Orientation: alert, awake and oriented x3 HEENT Head: normal to inspection Neck Neck: normal visual inspection Chest Chest palpation & inspection: normal inspection of the chest Resp Effort & Inspection: normal respiratory effort Auscultation: clear to auscultation bilaterally Cardio Palpation: normal PMI Rate: regular rate Rhythm: regular rhythm Heart Sounds: S1 normal and S2 normal Pulses: radial pulses present and femoral pulses present GI Palpation: soft Skin General: no rashes or lesions noted Neuro General: patient alert, patient awake and patient oriented x3 Cognition: normal cognition Speech: speech normal Extrem General: no clubbing, cyanosis or edema Diagnostic Studies Completed and Pending Studies Pending studies at discharge: 06/29/24 04:05 ECG 12 lead ECG Stat 07/01/24 05:00 ECG 12 lead ECG IN AM Basic Metabolic Panel [CHEM] IN AM Complete Blood Count Auto Diff IN AM 07/02/24 05:00 Basic Metabolic Panel [CHEM] IN AM Complete Blood Count Auto Diff IN AM 07/03/24 05:00 Basic Metabolic Panel [CHEM] IN AM Complete Blood Count Auto Diff IN AM Labs on day of discharge: 06/30/24 04:52: Corrected WBC 14.1 H, Uncorrected WBC Count 14.1 H, RBC 4.62, Hgb 14.2, Hct 42.1, MCV 91.3, MCH 30.7, MCHC 33.7, RDW 13.9, Plt Count 228, MPV 8.2, Neut % (Auto) N/A, Lymph % (Auto) N/A, Hoke % (Auto) N/A, Eos % (Auto) N/A, Baso % (Auto) N/A, Nucleat RBC Rel Count N/A, Neut # (Auto) N/A, Lymph # (Auto) N/A, Hoke # (Auto) N/A, Eos # (Auto) N/A, Baso # (Auto) N/A, Band Neutrophils % 2, Lymphocytes % 9 L, Monocytes % 11, Eosinophils % 6 H, Metamyelocytes % 3 H, Segmented Neutrophils 68, Reactive Lymphocytes 1, Platelet Estimate Normal, Plt Morphology Comment Normal, RBC Morphology N/A, Poikilocytosis Slight, Anisocytosis Slight, Ovalocytes Slight, Schistocytes Slight, PHA Creatinine Clear 46.26, Sodium 132 L, Potassium 4.4, Chloride 101, Carbon Dioxide 25.9, Anion Gap 9.5, BUN 13, Creatinine 0.68, Est GFR (CKD-EPI) > 60.0, Glucose 173 H, Calcium 8.9 06/29/24 15:07: Troponin I High Sens 66585.3 H* Documented By: Roberto Carlos Mcdermott DO 06/30/24 1409 Signed By: <Electronically signed by Roberto Carlos Mcdermott DO> 06/30/24 1413 [facility] Work Phone: Evaluation noteNo InformationNort [employer] Other Evaluation noteNo assessment information available [facility] Work Phone: Evaluation note* Diagnosis Onset Date Resolution Status CAD (coronary artery disease) acute Closed subcapital fracture of neck of right femur acute Diabetes acute Fall acute Hyperlipidemia acute Hypothyroid acute [facility] Work Phone: Evaluation note* Diagnosis Onset Date Resolution Status CAD (coronary artery disease) acute Closed subcapital fracture of neck of right femur acute Diabetes acute Fall acute History of left breast cancer acute Hyperlipidemia acute Hypothyroid acute Impaired mobility and activities of daily living acute Lung mass acute Postoperative pain acute [facility] Work Phone: Evaluation note* Diagnosis Onset [...] acute Postoperative pain acute Yeast UTI resolved [facility] Work Phone: Evaluation note* Diagnosis Onset [...] a cute Mass of right lung acute [facility] Work Phone: Evaluation note* Diagnosis Coronary artery disease involving wichita coronary artery of [place]ita heart without angina pectoris- Primary Essential hypertension, benign History of PTCA Postsurgical percutaneous transluminal coronary angioplasty status Mixed hyperlipidemia Edema, unspecified type Never smoked cigarettes documented in this encounter [facility] Work Phone: Evaluation note* Diagnosis Onset Date Resolution Status History of left breast cancer acute History of thyroid surgery a cute Mass of right lung acute History of left breast cancer acute History of thyroid surgery a cute Mass of right lung acute [id number] acute History of right hip hemiarthroplasty acute BMI 26.0-26.9,adult acute Dietary counseling and surveillance acute Hyperlipidemia acute Hypertension acute Type 2 diabetes mellitus with hyperglycemia acute [facility] Work Phone: Evaluation note* Diagnosis Onset Date Resolution Status History of left breast cancer acute History of thyroid surgery a cute Mass of right lung acute History of left breast cancer acute History of thyroid surgery a cute Mass of right lung acute [id number] acute History of right hip hemiarthroplasty acute BMI 26.0-26.9,adult acute Dietary counseling and surveillance acute Hyperlipidemia acute Hypertension acute Type 2 diabetes mellitus with hyperglycemia acute CAD (coronary artery disease) acute History of right hip hemiarthroplasty acute Insomnia acute Type 2 diabetes mellitus with hyperglycemia acute [facility] Work Phone: evaluation note* Diagnosis Onset Date Resolution Status BMI [...] Type 2 diabetes mellitus with hyperglycemia acute [facility] Work Phone: evaluation note* Diagnosis Onset Date Resolution Status CAD (coronary artery disease) acute History of right hip hemiarthroplasty acute Insomnia acute Type 2 diabetes mellitus with hyperglycemia acute BMI 26.0-26.9,adult acute Dietary counseling and surveillance acute Hyperlipidemia acute Hypertension acute Type 2 diabetes mellitus with hyperglycemia acute Type 2 diabetes mellitus with hyperglycemia acute [facility] Work Phone: evaluation note* Diagnosis Onset Date Resolution Status Type 2 diabetes mellitus with hyperglycemia acute BMI 26.0-26.9,adult acute Dietary counseling and surveillance acute Hyperlipidemia acute Hypertension acute Type 2 diabetes mellitus with hyperglycemia acute [facility] Work Phone: evaluation note* Diagnosis Onset Date Resolution Status Type [...] a cute Mass of right lung acute [facility] Work Phone: evaluation note* Diagnosis Onset Date Resolution Status Type [...] a cute Mass of right lung acute CAD (coronary artery disease) acute Diabetes acute History of cardiac cath acut e History of left breast cancer acute History of thyroid surgery a cute Hyperlipidemia acute ST elevation myocardial infa rction (STEMI) of anterior wall acute [facility] Work Phone: Evaluation note* Diagnosis Onset Date Resolution Status Type 2 diabetes mellitus with hyperglycemia acute BMI 26.0-26.9,adult acute Dietary counseling and surveillance acute Hyperlipidemia acute Hypertension acute Type 2 diabetes mellitus with hyperglycemia acute Mass of right lung acute Mass of right lung acute CAD (coronary artery disease) acute Diabetes acute Hyperlipidemia acute Type 2 diabetes mellitus with hyperglycemia acute [facility] Work Phone: History and physical note Author Chin Rodarte [facility] October 11, 2023 4:46pm Note Date/Time October 11, 2023 4 :13pm [facility] [address] [place] [address] Hospitalist H&P Signed Patient: Heidi Palmer MR#: [id number] : 1940 Acct:[id number] Age/Sex: 83 / F Adm Date: 3 Loc: Room: [address] [place] [address] Type: ADM IN Attending Dr: Chin Rodarte [...] negative unless noted below or in HPI [facility] Medical History (Updated 10/11/23 @ 16:39 by [...] % (Auto) 21.3 % (.) 10/11/23 13:43 Hoke % (Auto) 8.4 % (.) 10/11/23 13:43 Eos % (Auto) 1.7 % (.) 10/11/23 13:43 Baso % (Auto) 1.0 % (.) 10/11/23 13:43 Nucleat RBC Rel Count 0.1 /100 WBC (0-0.5) 10/11/23 13:43 Neut # (Auto) 6.9 x10E3/uL (1.8-7.7) 10/11/23 13:43 Lymph # (Auto) 2.2 x10E3/uL (1.00-4.8) 10/11/23 13:43 Hoke # (Auto) 0.8 x10E3/uL (0.0-0.8) 10/11/23 13:43 [...] 3 Documented By: Chin Rodarte MD 10/11/23 9665 Signed By: <Electronically signed by Chin Rodarte MD> 10/11/23 1646 [facility] Work Phone: Hisrfif general Narrative - Reported* Type Description Date [...] Surgical History Discectomy L3-4 05/2019 Hospitalization History [facility] - UTI 2018 Hospitalization History See Above [facility] [employer] Other Hisqstu general Narrative - Reported* Type Description Date [...] Surgical History right fracture repair Hospitalization History [facility] - UTI 2018 Hospitalization History See Above [facility] [employer] Other History of Present illness NarrativePatient returns [...] we will plan to see her as noted.-[facility] 250 DO Work Phone: History of Present [...] mitigated now with the [facility] Work Phone: Progress note Author Tosha Patel [facility] December 08, 2023 11:56am Note Date/Time December 08, 2023 1 1:19am [facility] [place] [address] Cancer Center Note Signed Patient: Heidi Palmer MR#: [id number] : 1940 Acct:[id number] Age/Sex: 83 / F Type: REG AMB [...] her to have a follow-up with her bar helper Dr. Stark since she has worsening bilateral [...] obtain the path report from 08/02/2023 from [facility] for the needlebiopsy of the thyroid [...] reduction and internal fixation on 10/12/2023here at [facility] by orthopedic surgery. As part of the [...] had a left breast surgery probably at [facility] about 3035 years ago and she [...] close by. The daughter Lyubov lives in [place]. Patient has not seen oncologist to her [...] 08/02/23, she had thyroid nodule biopsy at [facility] which was negative for cancer. Path report [...] She has not seen Dr. Stark her bar helper for a while now but she is [...] and go over PET scan and mamogram [facility] Medical History Medical History (Updated 11/17/23 @ [...] signed by Tosha Patel MD> 12/08/23 1156 [facility] Work Phone: Progress note Author Tosha Patel [facility] June 09, 2024 11:19am Note Date/Time June 09, 2024 10: 51am [facility] [place] [address] Cancer Center Note Signed Patient: Heidi Palmer MR#: [id number] : 1940 Acct:[id number] Age/Sex: 84 / F Type: REG AMB [...] her to have a follow-up with her bar helper Dr. Stark since she has worsening bilateral [...] obtain the path report from 08/02/2023 from [facility] for the needlebiopsy of the thyroid [...] reduction and internal fixation on 10/12/2023here at [facility] by orthopedic surgery. As part of the [...] had a left breast surgery probably at [facility] about 3035 years ago and she [...] close by. The daughter Lyubov lives in [place]. Patient has not seen oncologist to her [...] 08/02/23, she had thyroid nodule biopsy at [facility] which was negative for cancer. Path report [...] She has not seen Dr. Stark her bar helper for a while now but she is [...] 80 mg PO QHS blood sugar diagnostic ([employer] Ultra Test strips) As directed blood-glucose meter ([employer] Ultra2 Meter) As directed blood-glucose sensor (FreeStyle [...] 100/33) 23 units (0.23mL) subcut DAILY lancets ([employer] Delica Plus Lancet) As directed levothyroxine 50 [...] go over CT scan of the Chest [facility] Medical History Medical History Abnormal breast biopsy [...] signed by Tosha Patel MD> 06/09/24 1119 [facility] Work Phone: Reason for referral (narrative)* Consultation (Routine) - Authorized Specialty Diagnoses / Procedures Referred By Contac t Referred To Contact Cardiology Diagnoses Coronary artery disease involving wichita coronary artery of wichita heart without angina pectoris Procedures Follow Up In Cardiology Yusuf Hayward MD [address] [place] [address] [address], [address] [address] Yusuf Hayward MD [address] [place], [place] [address]er [facility] 2, [address] [address] Referral ID Status Reason Start Date Expiration Date V isits Requested Visits Authorized [id number] Authorized 01/26/2024 01/25/2025 1 1 [facility] Work Phone: Summary Purpose Family History No [...] 28 11:14am Hospital Course Note MR#: [id number] [facility] Pt. Name: Heidi Palmer Admitted: 12/13/2018 Discharged: 12/16/2018 Date of : 1940 Physician: Kurtis Stacy M.D. DISCHARGE SUMMARY DISCHARGE PHYSICIAN: Kurtis Stacy M.D. SERVICE: Med-B. PRIMARY DIAGNOSES: 1. Sepsis, secondary to urinary tract infection, resolved. 2. Metabolic encephalopathy, resolved. 3. Sciatica pain. 4. Coronary artery disease, status post stent 5 years ago. 5. Hypertension. 6. Sao-pfnodmx-hsdzsijvn diabetes. 7. Hypothyroidism. CONSULTS: None. PROCEDURES: None. SUMMARY OF HOSPITAL COURSE: The patient is a 78-year-old female patient with a past medical history of hypertension, ebz-[id number] diabetes, hypothyroidism, coronary artery diease status post stents 5 years ago and sciatica pain, who presented from [facility] due to concern of stroke. Her [...] of thyroid surgery Mass of right lung [id number] History of right hip hemiarthroplasty BMI 26.0-26.9,adult [...] of thyroid surgery Mass of right lung [id number] History of right hip hemiarthroplasty BMI 26.0-26.9,adult [...] of thyroid surgery Mass of right lung Chief Complaint DL per DS 6 week DMN f/u Lung Mass Stemi Stemi Reason for Visit Type 2 diabetes scott itus with hyperglycemia BMI 26.0-26.9,adult Dietary counseling and surveillance Hyperlipidemia Hypertension Type 2 diabetes mellitus with hyperglycemia History of left breast cancer History of thyroid surgery Mass of right lung History of left breast cancer History of thyroid surgery Mass of right lung CAD (coronary artery disease) Diabetes History of cardiac cath History of left breast cancer History of thyroid surgery Hyperlipidemia ST elevation myocardial infarction (STEMI) of anterior wall Chief Complaint DL per DS 6 week DMN f/u Lung Mass Stemi Stemi DL Reason for Visit Type 2 diabetes scott itus with hyperglycemia BMI 26.0-26.9,adult Dietary counseling and surveillance Hyperlipidemia Hypertension Type 2 diabetes mellitus with hyperglycemia Mass of right lung Mass of right lung CAD (coronary artery disease) Diabetes Hyperlipidemia Type 2 diabetes mellitus with hyperglycemia Additional Source Comments INFORMATION SOURCE (unrecogn ized section and content) DATE CREATED AUTHOR 12/27/2018 [facility] DATE CREATED AUTHOR AUTHOR'S ORGANIZ ATION 12/22/2022 [facility] DATE CREATED AUTHOR AUTHOR'S ORGANIZ ATION 01/16/2023 [facility] DATE CREATED AUTHOR AUTHOR'S ORGANIZ ATION 01/16/2023 [employer] DATE CREATED AUTHOR AUTHOR'S ORGANIZ ATION 06/18/2024 [facility] EPIC DATE CREATED AUTHOR AUTHOR'S ORGANIZ ATION 06/30/2024 [facility] DATE CREATED AUTHOR AUTHOR'S ORGANIZ ATION 07/14/2024 [facility] DATE CREATED AUTHOR AUTHOR'S ORGANIZ ATION 08/02/2024 [facility] REASON FOR VISIT (unrecogniz ed section and content) Reason Comments Annual Exam 1year Care Teams (unrecognized sec tion and content) Team Status: Active Member Role Status Dates Mica Hook MD Primary Care Provider Active Team Status: Inactive Member Role Status Dates Mica Hook MD Primary Care Provider Active Start: April 19, 2024 End: April 19, 2024 Olvin Rose , JANETH Attending Provider Active St art: April 19, 2024 End: April 19, 2024 Norma Diaz APRN Active Star t: April 19, 2024 End: April 19, 2024 Team Status: Inactive Member Role Status Dates Mica Hook MD Primary Care Provider Active Start: June 07, 2024 End: June 07, 2024 Norma Diaz APRN Attending Provider Active Start: June 07, 2024 End: June 07, 2024 Team Status: Active Member Role Status [...] June 09, 2024 End: June 09, 2024 Team Status: Active Member Role Status Dates Mica Hook MD Primary Care Provider Active Start: June 29, 2024 Wilner Allen MD Attending Provider Active St art: June 29, 2024 Team Status: Inactive Member Role Status Dates Mica Hook MD Primary Care Provider Active Start: June 29, 2024 End: June 30, 2024 W Kranthi Mcdermott , Admit Provider, Att ending Provider Active Start: June 29, 2024 End: June 30, 2024 Tl Wild MD Other Provider Active Start: June 29, 2024 End: June 30, 2024 Team Status: Active Member Role Status Dates Mica Hook MD Primary Care Provider Active Start: June 29, 2024 Roberto Carlos Mcdermott , Admit Provider, Oth er Provider Active Start: June 29, 2024 Tl Wild MD Attending Pr ovider, Other Provider Active Start: June 29, 2024 Team Status: Active Member Role Status [...] Team Status: Inactive Member Role Status Dates Epi Booth MD Attending Provider Active Star t: [...] 2023 Team Status: Inactive Member Role Status Deion Booth MD Attending Provider Active Star t: January 10, 2024 End: January 10, 2024 Mica Hook MD Primary Care Provider Active Start: January 10, 2024 End: January 10, 2024 Team Status: Inactive Member Role Status Dates Mica Hook MD Primary Care Provider Active Start: January 10, 2024 End: January 10, 2024 Epi Booth MD Attending Provider Active Star t: January 10, 2024 End: January 10, 2024 Team Status: Inactive Member Role Status Deion Hook MD Primary Care Provider Active Uma Mccauley MD Attending Provider Active Team Status: Inactive Member Role Status Deion Hook MD Primary Care Provider, Attending Ghislaine colmenares Active Team Status: Active Member Role Status Deion Hook MD Primary Care Provider, Attending Ghislaine colmenares Active Team Status: Active Member Role Status Dates Mica Hook MD Primary Care Provider Active Nii Cooper , DO Emergency Provider Active Charles Salinas , DO Other Provider Active Uma Mccauley MD Other Provider Active Porfirio Christensen II, MD Other Provider Active Damián Christensen MD Other Provider Active Toni Arthur , DO Other Provider Active Epi Booth MD Other Provider Active Chin Rodarte MD Admit Provider, Attending Provider A ctive Team Status: Inactive Member Role Status Dates Mica Hook MD Primary Care Provider Active Nii Cooper DO Emergency Provider Active Epi Booth MD Other Provider Active Chin Rodarte [...] Mica Hook MD Primary Care Provider Active Epi Booth MD Attending Provider Active Team Status: Inactive Member Role Status Dates Mica Hook MD Primary Care Provider Active Anthony Alaniz MD Admit Provider, Attending Provider A ctive Stella Mascorro , JANETH Other Provider Active Jennifer Arrieta , RN Other Provider Active Danna Farias , JANETH Other Provider Active Belinda Vo , JANETH Other Provider Active Merissa Reyes , JANETH Other Provider Active Stacey Herzog , JAENTH Other Provider Active Goldie Dale MD Other Provider Active Lyudmila Bejarano , CLINICAL UNIT EDUCATOR Other Provider Active Quin Pittman , DO Other Provider Active Gonzales Bagley MD Other Provider Active Hank Vasquez , DO Other Provider Active Kareem Parker MD Other Provider Active Ailyn Cantu MD Other Provider Active Dray Kline CLINICAL UNIT EDUCATOR Other Provider Active Brian Merino MD Other Provider Active Jasiel Bella MD Other Provider Active Jean Monson MD Other Provider Active Marcelo Carlos MD Other Provider Active Damián Boateng , DO Other Provider Active Keyon Cortes MD Other Provider Active Bakari Pettit MD Other Provider Active Annie Perez , CLINICAL PSYCHOLOGY TEACHER-C Other Provider Active Eliot Gar MD Other Provider Active Rm Wilson MD Other Provider Active Humberto Chamorro MD Other Provider Active Tavo Corbett MD Other Provider Active Isabel Ochoa , DO Other Provider Active Esau Wiley , DO Other Provider Active Yves Rollins , DO Other Provider Active Yelitza Fischer CLINICAL UNIT EDUCATOR Other Provider Active Sergo Pike , DO Other Provider Active Luis Moya MD Other Provider Active [place] CLINICAL UNIT EDUCATOR Other Provider Active Leia Vega , CLINICAL UNIT EDUCATOR Other Provider Active Chin Rodarte MD Other Provider Active Nabil Buitrago MD Other Provider Active Emeli Guzman APRN Other Provider Active Mehnaz Bowden DO Other Provider Active Syl Hammond RN Other Provider Active Team Status: Inactive Member Role Status Dates Norma Diaz APRN Attending Provider Active Start: October 11, 2023 End: October 11, 2023 Team Status: Inactive Member Role Status Dates Mica Hook MD Primary Care Provider Active Start: October 11, 2023 End: October 15, 2023 Nii Cooper DO Emergency Provider Active Sta rt: October 11, 2023 End: October 15, 2023 Epi Booth MD Other Provider Active Start: [email or web address] End: October 15, 2023 Chin Rodarte MD [...] [email or web address] End: November 03, 2023 Belinda Vo , JANETH Other Provider Active Star t: October 15, [...] 2022 End: November 03, 2023 Isabel Ochoa , Other Provider Active Start: 2022 End: November 03, 2023 Esau Wiley , Other Provider Active Start : October 15, 2023 End: November 03, 2023 Yves Rollins , Other Provider Active Sta rt: October 15, [...] Chin Rodarte MD Other Provider Active Start: 2022 End: November 03, 2023 Nabil Buitrago MD Other Provider Active S tart: October 15, 2023 End: November 03, 2023 Emeli Guzman APRN Other Provider Active S tart: October 15, 2023 End: November 03, 2023 Mehnaz Bowden DO Other Provider Active Start: October 15, 2023 End: November 03, 2023 Syl Hammond RN Other Provider Active Start: 2022 End: November 03, 2023 Team Status: Inactive Member Role Status Dates Mica Hook MD Attending Provider Active St art: November 09, 2023 End: November 09, 2023 Team Status: Inactive Member Role Status Dates Mica Hook MD Primary Care Provider Active Start: November 16, 2023 End: November 16, 2023 Epi Booth MD Attending Provider Active Star t: November 16, 2023 End: November 16, 2023 Team Status: Inactive Member Role Status Dates Norma Diaz APRN Attending Provider Active Start: November 18, 2023 End: November 18, 2023 Team Status: Active Member Role Status Dates Mica Hook MD Primary Care Provide r, Attending Provider Active Start: November 18, 2023 Supervisor Paste Mixing Relationship Specialty Start Date End Date Mica Hook MD [address] [place], [place] [id number] PCP - General Family Medicine 01/26/24 Yusuf Hayward MD [address] [facility] 2, [facility] [address] [place], [place] [id number] Consulting Physician Cardiology 01/26/24 Team Status: Inactive Member Role Status Dates Mica Hook MD Primary Care Provider Active Start: July 12, 2024 End: July 12, 2024 Norma Diaz APRN Active Star t: July 12, 2024 End: July 12, 2024 Chary Dozier RN Attending Provider Active Start: July 12, 2024 End: July 12, 2024 Goals (unrecognized section and content) Goals [...] BE BASED ON THE PRIMARY CLINICAL RECORDS. [facility] [employer] [facility]. provides no warranty or guarantee of the accuracy or completeness of information in this document.
[2024-08-10] MEDS: DIAZEPAM 5 MG TABLET PO (07:20)
[2024-08-10] MEDS: BESIFLOXACIN HCL 100 DROP DROPS.SUSP OP ×4 (07:21→07:47)
[2024-08-10] MEDS: PHENYLEPHRINE HCL 2.5% OP SOL 40 DROP/2 ML BOTTLE OP ×4 (07:21→07:46)
[2024-08-10] MEDS: TROPICAMIDE 1% OP SOL 300 DROP/15 ML BOTTLE OP ×4 (07:21→07:47)
[2024-08-10] MEDS: CYCLOPENTOLATE HCL 1% OP SOL 40 DROP/2 ML BOTTLE OP ×4 (07:21→07:47)
[2024-08-10 07:27] VITALS: BP 103/54; PULSE 71; TEMP 36.4; O2SAT 98
[2024-08-10] MEDS: PROPARACAINE HCL 0.5% 300 DROP/15 ML BOTTLE OP (08:25)
[2024-08-10] MEDS: BETADINE POVIDONE-IODINE 5% OP SOL 30 ML BOTTLE OP (08:25)
[2024-08-10] MEDS: LIDOCAINE 2% JELLY 10 ML TOPICAL (08:25)
[2024-08-10] MEDS: LIDOCAINE HCL 1% PF 20 MG/2 ML VIAL INJ (08:36)
[2024-08-10] MEDS: HYALURONATE SODIUM 16 MG/ML SYRINGE OP (08:36)
[2024-08-10] MEDS: TETRACAINE HCL 0.5% OP SOL 80 DROP/4 ML BOTTLE OP (08:37)
[2024-08-10] MEDS: CEFUROXIME SODIUM 750 MG, 0.9 % SODIUM CHLORIDE 16.3 ML OP (08:37)
[2024-08-10] MEDS: PHENYLEPHRINE/KETOROLAC 1-0.3% ML VIAL 4 ML IRR (08:37)
[2024-08-10 08:38] VITALS: BP 111/49; BP 111/50; PULSE 61; O2SAT 95; O2SAT 98
[2024-08-10] MEDS: APRACLONIDINE HCL 0.5% SOL 100 DROP/5 ML BOTTLE OP (08:44)
[2024-08-10] MEDS: PREDNISOLONE ACETATE OP 1% SUSP 100 DROPS/5 ML 1 DROP OP (08:44)
== END 2024-08-10 09:00 | disposition home or self-care (01) ==
LOC: SURGOUT 07:03
PROVIDERS: PCP Family Medicine; Visit Provider Ophthalmology
PROC: (CPT 66984; principal; 2024-08-10 08:30)
DX: H25.11 Age-related nuclear cataract, right eye (principal); E11.9 Type 2 diabetes mellitus without complications; E03.9 Hypothyroidism, unspecified; I10 Essential (primary) hypertension; E78.5 Hyperlipidemia, unspecified; I25.10 Atherosclerotic heart disease of native coronary artery without angina pectoris; Z85.3 Personal history of malignant neoplasm of breast; Z79.4 Long term (current) use of insulin; Z79.84 Long term (current) use of oral hypoglycemic drugs
CPT/HCPCS: 66984; J0697; V2630

== ENCOUNTER 2024-09-05 08:40 | Outpatient (OUT) | payer OTHER, SELFPAY ==
[2024-09-05 09:36] LABS: Cholesterol 149 mg/dL (<=200); HDL Cholesterol 49 mg/dL (40-60); LDL Cholesterol Calculated 76.8 mg/dL; Triglycerides 116 mg/dL (<=150); VLDL CHOLESTEROL 23.2 mg/dL
== END 2024-09-05 08:41 | disposition home or self-care (01) ==
LOC: LAB 08:42
PROVIDERS: PCP Family Medicine; Visit Provider Nurse Practitioner Family
DX: E78.5 Hyperlipidemia, unspecified (principal); E11.65 Type 2 diabetes mellitus with hyperglycemia; Z79.4 Long term (current) use of insulin
CPT/HCPCS: 36415; 80061

== ENCOUNTER 2024-10-13 06:58 | Outpatient (RCR) | payer OTHER, SELFPAY ==
--- NOTE | 2024-07-20 07:38 | CR1_ITS ---
[facility] Test Date: 2024-07-20 Pat Name: TOMÁS PALMER Department: Room: - Gender: Female Extra Hand: : 1940 Requested By: MICA HOOK Order Number: [id number] Anusha MD: LEONEL SANDHU Interpretive Statements Session Date: Electronically Signed On 07-20-2024 22:37:39 EDT by LEONEL SANDHU
--- NOTE | 2024-08-16 12:51 | CR1_ITS ---
The [facility] Test Date: 2024-08-16 Pat Name: TOMÁS PALMER Department: Room: - Gender: Female Career Law Clerk: : 1940 Requested By: MICA HOOK Order Number: [id number] Anusha MD: LEONEL SANDHU Interpretive Statements Session Date: Electronically Signed On 08-16-2024 22:53:58 EDT by LEONEL SANDHU
--- NOTE | 2024-09-15 07:39 | CR1_ITS ---
The [facility] Test Date: 2024-09-15 Pat Name: TOMÁS PALMER Department: Room: - Gender: Female Map And Chart Mounter: : 1940 Requested By: MICA HOOK Order Number: [id number] Anusha MD: LEONEL SANDHU Interpretive Statements Session Date: Electronically Signed On 09-18-2024 22:44:11 EST by LEONEL SANDHU
--- NOTE | 2024-10-17 09:54 | CR1_ITS ---
The [facility] Test Date: 2024-10-17 Pat Name: TOMÁS PALMER Department: Room: - Gender: Female Telephone Surveyor: : 1940 Requested By: LEONEL SANDHU Order Number: [id number] Reading MD: LEONEL SANDHU Interpretive Statements Session Date: Electronically Signed On 10-17-2024 19:43:32 EST by LEONEL SANDHU
== END 2024-11-07 11:03 | disposition home or self-care (01) ==
LOC: CR 06:58
PROVIDERS: PCP Family Medicine; Visit Provider Internal Medicine Cardiovascular Disease
DX: I25.2 Old myocardial infarction (principal); I25.10 Atherosclerotic heart disease of native coronary artery without angina pectoris; I25.5 Ischemic cardiomyopathy
CPT/HCPCS: 93798

== ENCOUNTER 2024-11-09 11:03 | Outpatient (RCR) | payer OTHER, SELFPAY ==
--- NOTE | 2024-11-16 09:30 | CR1_ITS ---
The [facility] Test Date: 2024-11-16 Pat Name: TOMÁS PALMER Department: Room: - Gender: Female Recovery Operator: : 1940 Requested By: MICA HOOK Order Number: [id number] Anusha MD: LEONEL SANDHU Interpretive Statements Session Date: Electronically Signed On 11-16-2024 21:11:06 EST by LEONEL SANDHU
--- NOTE | 2024-11-28 10:13 | PC.NURSE ---
Called to outreach the patient as she has not been seen in rehab in many weeks. Patient states she is not feeling well, and had not been for some weeks. At this point she is feeling better, but is not sure she wants to return with the colder weather. This RN verbalized understanding and encouraged her to return even if it is only 1 day a week once the temperatures warm. Reinforced the benefits mentally and physically of leaving the house and attending rehab. Patient verbalized understanding and stated she hoped to return soon.
--- NOTE | 2024-12-18 10:16 | CR1_ITS ---
[facility] Test Date: 2024-12-18 Pat Name: TOMÁS PALMER Department: Room: - Gender: Female Police Artist: : 1940 Requested By: LEONEL SANDHU Order Number: [id number] Anusha MD: LEONEL SANDHU Interpretive Statements Session Date: Electronically Signed On 12-18-2024 20:25:03 EST by LEONEL SANDHU
--- NOTE | 2025-01-03 14:48 | CR1_ITS ---
[facility] Test Date: 2025-01-03 Pat Name: TOMÁS PALMER Department: Room: - Gender: Female Lay Out Former: : 1940 Requested By: MICA HOOK Order Number: [id number] Anusha MD: LEONEL SANDHU Interpretive Statements Session Date: Electronically Signed On 01-03-2025 20:42:45 EST by LEONEL SANDHU
== END 2025-01-03 14:53 | disposition home or self-care (01) ==
LOC: CR 11:03
PROVIDERS: PCP Family Medicine; Visit Provider Internal Medicine Cardiovascular Disease
DX: I25.10 Atherosclerotic heart disease of native coronary artery without angina pectoris (principal); I25.5 Ischemic cardiomyopathy

== ENCOUNTER 2025-01-01 09:45 | Outpatient (OUT) | payer OTHER, SELFPAY ==
[2025-01-01 11:02] LABS: Anion Gap 12.3; BUN Creatinine Ratio 17.3; Calcium 9.8 mg/dL (8.5-10.1); Chloride 99 mmol/L (98-107); Chol HDL Ratio 3.1; Cholesterol 179 mg/dL (<=200); Estimated GFR (African America >60 (>=60 mL/min/1.73m^2); Estimated GFR (Non-African Ame 54 (>=60 mL/min/1.73m^2); Glucose 221 mg/dL (74-106); HDL Cholesterol 57 mg/dL (40-60); Potassium 4.3 mmol/L (3.5-5.1); Sodium 137 mmol/L (136-145); Triglycerides 167 mg/dL (<=150); VLDL CHOLESTEROL 33.4 mg/dL
== END 2025-01-01 09:46 | disposition home or self-care (01) ==
LOC: LAB 09:46
PROVIDERS: PCP Family Medicine; Visit Provider Nurse Practitioner
DX: I25.5 Ischemic cardiomyopathy (principal); R06.09 Other forms of dyspnea; I25.10 Atherosclerotic heart disease of native coronary artery without angina pectoris; E78.5 Hyperlipidemia, unspecified
CPT/HCPCS: 36415; 80048; 80061; 83880

== ENCOUNTER 2025-02-02 11:55 | Outpatient (OUT) | payer OTHER, SELFPAY ==
--- OUTSIDE RECORDS SUMMARY | 2025-02-02 12:16 | XMS_ITS | CCD ---
Author Organization [facility] Care Team Providers Care Card Services Specialist Name Role Phone MICA HOOK Primary Care Unavailable KIMBERLY RECIO Referring Unavailable PRIYA BAGLEY Admitting Unavailable [place] Procedure Practitioner Unavailab ANITA Coon Surgeon Unavailable [...] MD Uma Mccauley Attending Provider MD Mica oHok Primary Care Provider MD Mica Hook Attending Provider MD Mica Hook Primary Care Provider MD Mica Hook Attending Provider DO Nii Cooper Emergency Provider DO Charles Salinas A Other Provider MD Uma Mccauley Other Provider MD Porfirio Christensen II Other Provider MD Damián Christensen Other Provider [phone] DO Toni Arthur A Other Provider [phone] MD Epi Booth Other Provider MD Chin Rodarte Admit Provider MD Chin Rodarte Attending Provider MD Amanda alpesh Yaser Other Provider [phone] MD Last [place] Other Provider Norma Diaz [...] Buitrago Other Provider FRANK Guzman Other Provider DO Mehnaz Bowden Other Provider JANETH Hammond Other Provider Unavailable MD Epi Booth Attending Provider [phone] MD Mica Hook Primary Care Provider MD Mica Hook Attending Provider MD Tosha Patel Attending Provider FRANK Guzman Other Provider Unavaila ble MD Mica Hook Attending Provider Mica Hook MD Primary Care Provider Yusuf Hayward MD Unavailable MD Mica Hook Primary Care Provider MD Tosha Patel Attending Provider [phone] MD Mica Hook Attending Provider MD Epi Booth Attending Provider MD Epi Booth Attending Provider MD Mica Hook Primary Care Provider MD Mica Hook Primary Care Provider MD Tosha Patel Attending Provider JAS STUART Attending Unavailable TOMASZ RON Referring Unavailable DO Roberto Carlos Mcdermott Admit Provider [phone] DO Roberto Carlos Mcdermott Attending Provider MD Tl Wild Other Provider [phone] PROVIDER, UNKNOWN Attending Unavailable PROVIDER, UNKNOWN Admitting Unavailable MD Mica Hook Primary Care Provider Yusuf Hayward MD Unavailable UnavailMica Jesus MD Primary Care Provider YUSUF MCDERMOTT Referring Unavailable MICA HOOK Primary Care Unavailable YUSUF MCDERMOTT Referring Unavailable MICA HOOK Primary Care Unavailable Mica Hook MD Primary Care Provider Angelo RNKaren Unavailable Unavailable Mica Hook MD Primary Care Provider Amanda GONSALVES, Tosha Lo Attending Provider Yesy GONSALVES, Yusuf Scanlon Unavailable Unavailbrea Hook MD, Mica Klein Primary Care Provider Amanda GONSALVES, Tosha Lo Attending Provider José Antonio Hills APRN Attending Provider [phone] Mica Hook Primary Care Unavailable José Antonio Hills Admitting Unavailable José Antonio Hills Attending Unavailable Mica Hook Primary Care Unavailable Tosha Patel Admitting UnavailTosha Cyr Attending UnavailRoberto Carlos Peres Attending Unavailable Mica Hook Primary Care Unavailable Tl Wlid Consulting Unavaila ble Roberto Carlos Mcdermott Admitting Unavailable YUSUF MCDERMOTT Attending Unavailable MICA HOOK Primary Care Unavailable JOSÉ ANTONIO HILLS Attending Unavailable YUSUF MCDERMOTT Referring Unavailable MICA HOOK Primary Care Unavailable JOSÉ ANTONIO HILLS Attending Unavailable JOSÉ ANTONIO HILLS Referring Unavailable MICA HOOK Primary Care Unavailable Allergies Allergy Classification Reported Allergen(s) Allergy Type Date of Onset Reaction(s) Facility (20 sources) cilostazol Drug Allergy [address] [facility] Repository (20 sources) metFORMIN; Translations: [METFORMIN] Drug Allergy 012 [address] [facility] Repository (20 sources) Penicillins; Translations: [PENICILLINS] Drug allergy (disorder) Nausea/vomiting [facility] Repository (20 sources) metFORMIN; Translations: [metformin] Drug Allergy Other [facility] (20 sources) oxyCODONE; Translations: [oxycodone] Drug Allergy [facility] (6 sources) Penicillins; Translations: [Penicillins] Allergy to drug (finding) -[facility] 250 DO Work Phone: (1 source) metFORMIN Drug Allergy [facility] Repository (1 source) oxyCODONE Drug Allergy [facility] Repository (16 sources) Penicillin Drug Allergy anaphylaxis [facility] Other (8 sources) Aspirin Drug Allergy Unknown [facility] Other (18 sources) aspirin contraindicated Propensity to adverse reactions 014 Comment:adverse rxn/side effects [facility] Other (2 sources) patient allergy list reviewed by nurse or physicia Propensity to adverse reactions 014 Comment:Done [facility] Other (18 sources) Kofiien CR *HYPNOTICS/SEDATIV ES/SLEEP DISORDER AGEN Propensity to adverse reactions Unknown [facility] Other (6 sources) Allergies Reconciled Propensity to adverse reactions Unknown [facility] Other (18 sources) Substance with penicillin structure and antibacterial mechanism of action (substance) Drug allergy anaphylaxis [facility] Other (3 sources) zolpidem Drug Allergy 024 [facility] (5 sources) Penicillins Drug Allergy 023 Nausea/vomiting [facility] Work Phone: (1 source) cilostazol Drug Allergy 025 [facility] Repository (1 source) metFORMIN Drug Allergy 025 [facility] Rep[facility] (1 source) oxyCODONE Drug Allergy 025 [facility] Rep[facility] (1 source) Penicillins Drug allergy (disorder) 025 [facility] Repository Medications Current Medications Medication Drug Class(es) Dates Sig (Normalized) Sig (Original) acetaminophen 325 mg oral tablet (20 sources) Start: 01-17-2024 take 1 tablet by mouth three times daily as needed for pain Acetaminophen (Tylenol) 325 mg tablet Active 325 MG PO Three times daily as needed for pain January 17, 2024 11:34am Start: 10-26-2023 End: 01-17-2024 take 2 tablets by mouth three times daily Acetaminophen (Tylenol) 325 mg Tablet Discontinued 650 MG PO Three times daily 90 October 26, 2023 1:00am January 17, 2024 [...] every six hours as needed for pain [place] 5-325 MG 1-2 tablets as needed for pain Orally every 6 hrs for 7 days Dec, Active Start: 12-23-2022 take 1-2 tablets by mouth every six hours as needed [place] 5-325 MG 1-2 tablets as needed Orally every 6 hrs for 7 days Dec, Active ascorbic acid 500 mg oral tablet (20 sources) Vitamin C Start: 09-08-2024 Ascorbic Acid (Vitamin C) (Vitamin C) 500 mg tablet Active 250 MG PO Daily September 08, 2024 8:55am Start: 11-03-2023 End: 09-08-2024 take 1 tablet by mouth once daily Ascorbic Acid (Vitamin C) (Vitamin C) 500 mg Tablet Discontinued 500 MG PO Daily November 03, 2023 1:00am September 08, 2024 9:00am take 1 capsule by [facility] once daily ascorbic acid (Vitamin C) 500 mg ER capsule Take 1 capsule (500 mg) by mouth once daily. Active Vitamin C Active aspirin 81 mg delayed release oral tablet (20 sources) Platelet Aggregation Inhibitor, Nonsteroidal Anti-inflammatory Drug Start: 09-04-2024 take 1 tablet by mouth twice daily Aspirin 81 mg tablet,delayed release (DR/EC) Active 81 MG PO Twice daily September 04, 2024 1:36pm Start: 01-04-2024 End: 01-04-2024 take 1 capsule by mouth once daily Aspirin 81 mg capsule Discontinued 81 MG PO Daily January 04, 2024 11:35am January 04, 2024 11:52am Start: 10-27-2023 End: 01-04-2024 take 1 capsule by mouth twice daily Aspirin 81 mg capsule Discontinued 81 MG PO Twice daily October 27, 2023 1:00am January 04, 2024 11:36am Start: 10-11-2023 End: 10-26-2023 take 1 capsule by mouth once daily Aspirin 81 mg Capsule Discontinued 81 MG PO Daily October 11, 2023 1:00am October 26, 2023 3:57pm Start: 05-05-2019 End: 12-20-2025 take 1 tablet by mouth once daily Aspirin 81 mg Tablet,Delayed Release (Dr/Ec) Discontinued 81 MG PO Daily 0 November 03, 2023 1:00am September 04, 2024 1:41pm atorvastatin 80 mg oral tablet (20 sources) HMG-CoA Reductase Inhibitor Start: 11-30-2024 take 1 tablet by mouth once daily at bedtime Atorvastatin 80 mg tablet Active 0 .ROUTE .COMPLEX 90 November 30, 2024 9:09am TAKE 1 TABLET BY MOUTH EVERYDAY AT BEDTIME Start: 05-05-2019 End: 11-30-2024 take 1 tablet by mouth once daily at bedtime Atorvastatin 80 mg tablet Discontinued 80 MG PO Daily at bedtime December 24, 2023 10:57am December 30, 2023 9:45am Blood-Glucose Meter (Onetouc h Ultra2 Meter) misc (14 sources) Start: 01-04-2024 Blood-Glucose Meter (Onetouch Ultra2 Meter) misc Active EACH .ROUTE .MEDSUPPLY January 04, 2024 12:00am As directed Start: 01-04-2024 Blood-Glucose Meter (Onetouch Ultra2 Meter) misc Active EACH .ROUTE .MEDSUPPLY January 04, 2024 1:00am As directed Blood-Glucose Sensor (Freest yle Rocio 3 Plus Sensor) device (12 sources) Start: 08-07-2024 Blood-Glucose Sensor (Freestyle Rocio 3 Plus Sensor) device Active 0 .Route August 07, 2024 7:20am As directed change every 10 days Start: 08-07-2024 Blood-Glucose Sensor (Freestyle Rocio 3 Plus Sensor) device Active 0 .Route August 07, 2024 8:20am As directed change every 10 days Start: 08-07-2024 End: 08-07-2024 Blood-Glucose Sensor (Freest yle Rocio 3 Plus Sensor) device Discontinued 0 .Route August 06, 2024 11:00pm August 07, 2024 7:21am As directed Start: 08-07-2024 End: 08-07-2024 Blood-Glucose Sensor (Freest yle Rocio 3 Plus Sensor) device Discontinued 0 .Route August 07, 2024 12:00am August 07, 2024 8:21am As directed Blood-Glucose Sensor (Freest yle Rocio 3 Sensor) device (20 sources) Start: 02-24-2024 Blood-Glucose Sensor (Freestyle Rocio 3 Sensor) device Active 0 MISCELLANE .MEDSUPPLY February 24, 2024 7:35am As directed invitro, change every 14 days Start: 02-24-2024 Blood-Glucose Sensor (Freestyle Rocio 3 Sensor) device Active 0 MISCELLANE .MEDSUPPLY February 24, 2024 8:35am As directed invitro, change every 14 days Start: 02-24-2024 End: 02-24-2024 Blood-Glucose Sensor (Freest yle Rocio 3 Sensor) device Discontinued 0 MISCELLANE .MEDSUPPLY 1 February 23, 2024 11:00pm February 24, 2024 7:38am As directed Start: 02-24-2024 End: 02-24-2024 Blood-Glucose Sensor (Freest yle Rocio 3 Sensor) device Discontinued 0 MISCELLANE .MEDSUPPLY 1 February 24, 2024 12:00am February 24, 2024 8:38am As directed Start: 01-04-2024 End: 01-04-2024 Blood-Glucose Sensor (Freest yle Rocio 3 Sensor) device Discontinued 0 .Route January 04, 2024 12:00am January 04, 2024 10:50am As directed Start: 01-04-2024 End: 01-04-2024 Blood-Glucose Sensor (Freest yle Rocio 3 Sensor) device Discontinued EACH .ROUTE .MEDSUPPLY 1 January 04, 2024 12:00am January 04, 2024 10:50am As directed Start: 01-04-2024 End: 01-04-2024 Blood-Glucose Sensor (Freest yle Rocio 3 Sensor) device Discontinued 0 .Route January 04, 2024 1:00am January 04, 2024 11:50am As directed Start: 01-04-2024 End: 01-04-2024 Blood-Glucose Sensor (Freest yle Rocio 3 Sensor) device Discontinued EACH .ROUTE .MEDSUPPLY 1 January 04, 2024 1:00am January 04, 2024 11:50am As directed calcium carbonate 1500 mg / cholecalciferol 800 unt chewable tablet (5 sources) Vitamin D calcium carbonat e-vitamin D3 600 mg-10 mcg (400 unit) chewable tablet Chew 1 tablet 2 times a day. Active Calcium Carbonate+Vitamin D (7 sources) Calcium Carbonat e+Vitamin D Active Calcium-Vitamin D3-Vitamin K (Viactiv) 650 mg-12.5 mcg-40 mcg tablet,chewable (5 sources) Start: 09-08-2024 Calcium-Vitamin D3-Vitamin K (Viactiv) 650 mg-12.5 mcg-40 mcg tablet,chewable Active 650 TAB PO .COMPLEX September 07, 2024 11:00pm 650 tabs orally 2 chews daily; Start: 09-08-2024 Calcium-Vitami n D3-Vitamin K (Viactiv) 650 mg-12.5 mcg-40 mcg tablet,chewable Active 650 TAB PO .COMPLEX September 08, 2024 12:00am 650 tabs orally 2 chews daily; clindamycin 300 mg oral capsule (12 sources) Lincosamide Antibacterial Start: 01-02-2024 clindamycin (Cleocin ) 300 mg capsule TAKE 2 CAPSULES 1 HOUR PRIOR TO DENTAL APPOINTMENT 01/02/2024 Active Start: 09-15-2021 take 4 capsules by m outh every hour Clindamycin HCl - 150 MG Oral Capsule TAKE 4 CAPSULES BY MOUTH 1 HOUR PRIOR TO DENTAL APPOINTMENT Quantity: 12 Refills: 0 Ordered: 15-Sep-2021 DO Start : 15-Sep-2021 Active End: 07-13-2024 take 1 capsule by mouth three times daily clindamycin (Cleocin) 150 mg capsule Take 1 capsule (150 mg) by mouth 3 times a day. 07/13/2024 Discontinued (Dose adjustment) clopidogrel 75 mg oral tablet (11 sources) P2Y12 Platelet Inhibitor Start: 07-31-2024 End: 12-20-2025 take 1 tablet by mouth once daily Clopidogrel 75 mg tablet Active 75 MG PO Daily September 04, 2024 12:00am Cranberry preparation (10 sources) Non-Standardized Food Allergenic Extract, Non-Standardized Plant Allergenic Extract AZO Cranberry Active diclofenac sodium 0.01 mg/mg topical gel (20 sources) Nonsteroidal Anti-inflammatory Drug Start: 10-26-2023 End: 03-07-2024 apply 2 g topically three times daily as needed for arthritis Diclofenac Sodium 1 % gel Active 2 GM TOPICAL Three times daily as needed for Arthritis March 07, 2024 11:11am Start: 10-26-2023 End: 03-07-2024 apply 2 g topically three times daily [...] March, Active Start: 05-05-2019 End: 10-11-2023 take 1 tablet by mouth twice daily Diclofenac Sodium 75 mg tablet,delayed release (DR/EC) Discontinued 75 MG PO Twice daily May 05, 2019 12:00am October 11, 2023 5:25pm diclofenac sodiu m (Voltaren) 1 % gel Apply 2.25 inches (2 g) topically 3 times a day as needed (arthritis). Active Diclofenac Sodiu m 1 % as directed Externally Active diphenhydrAMINE hydrochloride 25 mg oral capsule (20 sources) Histamine-1 Receptor Antagonist Start: 01-14-2024 take 1 capsule by mouth at bedtime as needed for sleep Diphenhydramine Hcl (Benadryl) 25 mg capsule Active 25 MG PO Bedtime as needed for sinus symptoms, Sleep January 14, 2024 1:00am Benadryl Active docusate sodium 50 mg / sennosides, fci 8.6 mg oral tablet (20 sources) Start: 09-04-2024 End: 09-08-2024 take 1 tablet by mouth once daily as needed Sennosides-Docusate Sodium 8.6-50 mg tablet Active 1 TAB-CAP PO Daily as needed September 08, 2024 8:59am Start: 06-29-2024 End: 09-04-2024 take 1 tablet by mouth twice daily Sennosides-Docusate Sodium 8.6-50 mg tablet Discontinued 1 TAB-CAP PO Twice daily June 29, 2024 12:00am September 04, 2024 1:41pm take 2 tablets by mo [facility] once daily sennosides-docusate sodium (Juliana-Colace) 8.6-50 mg tablet Take 2 tablets by mouth once daily. 0 Active FreeStyle Rocio 3 Sensor - (7 sources) FreeStyle Rocio 3 Sensor - as directed q 14 days Active FreeStyle Rocio 3 Sensor - as directed q 14 days for 30 days Active furosemide 40 mg oral tablet (20 sources) Loop Diuretic Start: 06-30-2024 take 1 tablet by mouth two times weekly Furosemide 40 mg tablet Active 40 MG PO Twice a Week 08 07June 30, 2024 10:51am Start: 12-13-2023 End: 12-20-2025 take 1 tablet by mouth once daily Furosemide 40 mg tablet Discontinued 40 MG PO Daily January 04, 2024 1:00am March 07, 2024 11:13am Start: 08-14-2021 take 1 tablet by alex th twice daily Furosemide 40 MG Oral Tablet take 1 tablet by mouth twice a day Quantity: 180 Refills: 3 Ordered: 14-Aug-2021 Yusuf Hayward MD Start : 14-Aug-2021 Active Start: 05-05-2019 End: 10-11-2023 take 1 tablet by mouth once daily Furosemide 40 mg tablet Discontinued 40 MG PO Daily May 05, [...] U-100 Insulin 100 unit/mL (3 mL) pen 10/26/2023 Active Start: 10-26-2023 End: 01-17-2024 Insulin Glargine (Lantus Ciara ostar U-100 Insulin) 100 unit/mL (3 mL) Insulin Pen Discontinued 25 UNIT SUBCUT Daily 7.5 October 26, 2023 1:00am January 17, 2024 11:44am Start: 05-05-2019 End: 10-11-2023 inject 12 [IU] by subcutaneous injection once daily at bedtime Insulin Glargine 100 unit/mL (3 mL) insulin pen Discontinued 12 UNIT SUBCUT Daily at bedtime May 05, 2019 12:00am October 11, 2023 5:25pm Lantus SoloStar 100 UNIT/ML as directed Subcutaneous Active Lantus 100 UNIT/ ML as directed Subcutaneous 25 units Not-Taking 3 ml insulin glargine 100 unt/ml / lixisenatide 0.033 mg/ml pen injector (20 sources) Insulin Analog Start: 12-08-2024 Insulin Glargi ne-Lixisenatide (Soliqua 100/33) 100 unit-33 mcg/mL insulin pen Active 23 UNIT SUBCUT Daily December 08, 2024 5:29pm Titrate to 30 u glargine once daily, has written instructions. Dispense QS for 90 days Start: 12-06-2024 End: 12-08-2024 Insulin Glargine-Lixisenatid e (Soliqua 100/33) 100 unit-33 mcg/mL insulin pen Discontinued 22 UNIT SUBCUT Daily December 06, 2024 12:22pm December 08, 2024 5:29pm Titrate to 30 u glargine once daily, has written instructions. Dispense QS for 90 days Start: 09-08-2024 End: 12-06-2024 Insulin Glargine-Lixisenatid e (Soliqua 100/33) 100 unit-33 mcg/mL insulin pen Discontinued 23 UNIT SUBCUT Daily September 08, 2024 9:49am December 06, 2024 12:24pm Titrate to 30 u glargine once daily, has written instructions. Dispense QS for 90 days Start: 09-08-2024 End: 09-08-2024 Insulin Glargine-Lixisenatid e (Soliqua 100/33) 100 unit-33 mcg/mL insulin pen Discontinued 24 UNIT SUBCUT Daily September 08, 2024 8:58am September 08, 2024 9:50am Titrate to 30 u glargine once daily, has written instructions Start: 06-29-2024 End: 09-08-2024 Insulin Glargine-Lixisenatid e (Soliqua 100/33) 100 unit-33 mcg/mL insulin pen Discontinued 17 UNIT SUBCUT Daily June 29, 2024 12:00am September 08, 2024 9:00am Titrate to 30 u glargine once daily, [...] Subcutaneous Daily for 90 days Dec, Active insulin glargine -lixisenatide (Soliqua 100/33) 100 unit-33 mcg/mL insulin pen Inject 17 Units under the skin early in the morning.. Active isopropyl alcohol 0.7 ml/ml medicated pad (2 sources) Start: 12-15-2023 Alcohol Prep P ads 70 % Use with Insulin pens Topical 4 times per day for 90 days Dec, Active Mastectomy Bra unit (4 sources) Start: 10-03-2024 Mastectomy Bra unit Active 0 .Route October 03, 2024 1:00am As directed Start: 10-03-2024 Mastectomy Bra unit Active 0 .Route October 03, 2024 12:00am As directed 24 hr metoprolol succinate 50 mg extended release oral tablet (13 sources) beta-Adrenergic Ramos Start: 06-30-2024 take 1 tablet by mouth once daily Metoprolol Succinate 50 mg Tablet Extended Release 24 Hr Active 50 MG PO Daily June 30, 2024 12:00am nitroglycerin 0.4 mg sublingual tablet (13 sources) Nitrate Vasodilator Start: 06-30-2024 nitroglycerin (Nitrostat) 0.4 mg SL tablet Nitroglycerin Active 0.4 MG SUBLINGUAL Q5M June 30, 2024 12:00am 06/30/2024 Active Start: 06-30-2024 Nitroglycerin 0.4 mg Tablet, Sublingual Active 0.4 MG SUBLINGUAL Q5M as needed for Chest Pain June 30, 2024 12:00am One Touch Glucometer (5 sources) Start: 11-18-2023 One Touch Gluc ometer as directed sq 4 times daily for 365 days Dx E11.65 or insurance preferred Nov, Active Senna Leaves (5 sources) Start: 03-07-2024 senna (Senokot ) Active PO March 07, 2024 12:00am valsartan 40 mg oral tablet (13 sources) Angiotensin 2 Receptor Ramos Start: 06-30-2024 valsartan (Diovan) 4 0 mg tablet 1 tablet (40 mg) once daily. 06/30/2024 Active Start: 06-30-2024 take 1 tablet by alex th twice daily Valsartan 40 mg tablet Active 40 MG PO Twice daily 60 30 June 30, 2024 12:00am Zinc Gluconate-Vitamin C (2 sources) Start: 06-29-2024 take 1 tablet by mouth once daily Zinc Gluconate-Vitamin C Active 1 TAB PO Daily June 29, 2024 12:00am Takes 50 mg of Zinc Gluconate and no more than 500 mg of Vitamin C. Completed/Discontinued Medications Medication Drug Class(es) Dates Sig (Normalized) Sig (Original) acetaminophen 325 mg / oxyCODONE hydrochloride 5 mg oral tablet (20 sources) Opioid Agonist Start: 10-26-2023 End: 01-17-2024 take 1 tablet by mouth every four hours as needed for pain Oxycodone-Acetamino phen 5-325 mg Tablet Discontinued 1 TAB PO Q4H as needed for Pain Scale 7-10 20 October 26, 2023 January 17, 2024 11:45am Start: 10-15-2023 End: 10-15-2023 take 1 tablet by mouth every four hours as needed for pain Oxycodone-Acetaminophen 5-325 mg Tablet Discontinued 1 TAB PO Q4H as needed for Pain Scale 4 - 7 10 October 15, 2023 October 15, 2023 2:48pm Start: 10-15-2023 End: 10-15-2023 take 1 tablet by mouth every four hours as needed for pain Oxycodone-Acetaminophen 5-325 mg Tablet Discontinued 1 TAB PO Q4H as needed for Pain Scale 4 - 7 10 5 October 15, 2023 October 15, 2023 2:48pm Start: 10-15-2023 End: 10-15-2023 take 1 tablet by mouth every four hours as needed for pain Oxycodone-Acetaminophen 5-325 mg Tablet Discontinued 1 TAB PO Q4H as needed for Pain Scale 4 - 7 10 5 October 15, 2023 October 15, 2023 1:48pm Start: 10-15-2023 End: 12-08-2023 take 1 tablet by mouth every four hours as needed for pain Oxycodone-Acetaminophen 5-325 mg Tablet Discontinued 1 TAB PO Q4H as needed for Pain Scale 4 - 7 10 October 15, 2023 October 15, 2023 [...] 1 tablet by mouth every four hours as needed for pain Oxycodone-Acetaminophen 5-325 mg tablet Discontinued 1 TAB PO Q4H as needed for Pain Scale 7-10 October 15, 2023 2:48pm October 26, 2023 3:57pm ALPRAZolam 0.5 mg oral tablet (10 sources) Benzodiazepine Start: 03-06-2019 Xanax 0.5 MG t joby 1 tablet by mouth 1/2 hour prior to MRI. May repeat in 1/2 hr if needed Orally for 1 days Feb, Not-Taking Ascorbic Acid / Zinc Gluconate (6 sources) Vitamin C Start: 06-29-2024 End: 09-04-2024 take 1 tablet by mouth once daily Ascorbic Acid-Zinc Gluconate 6.4-60 mg tablet,chewable Discontinued 1 TAB PO Daily June 29, 2024 12:00am September 04, 2024 1:35pm Takes 50 mg of Zinc Gluconate and no more than 500 mg of Vitamin C. Start: 06-29-2024 End: 09-04-2024 take 1 tablet by mouth once daily Ascorbic Acid-Zinc Gluconate 6.4-60 mg tablet,chewable Discontinued 1 TAB PO Daily June 28, 2024 11:00pm September 04, 2024 12:35pm Takes 50 mg of Zinc Gluconate and no more than 500 mg of Vitamin C. Start: 06-29-2024 End: 09-04-2024 take 1 tablet by mouth once daily Ascorbic Acid-Zinc Gluconate Discontinued 1 TAB PO Daily June 29, 2024 12:00am September 04, 2024 1:35pm Takes 50 mg of Zinc Gluconate and no more than 500 mg of Vitamin C. blood-glucose sensor (FreeSt yle Rocio 3 Sensor) (14 sources) Start: 01-14-2024 End: 02-24-2024 blood-glucose sensor (FreeSt yle Rocio 3 Sensor) Discontinued .Route January 14, 2024 12:00am February 24, 2024 7:39am Start: 01-14-2024 End: 02-24-2024 blood-glucose sensor (FreeSt yle Rocio 3 Sensor) Discontinued .Route January 14, 2024 1:00am February 24, 2024 8:39am Start: 01-14-2024 blood-glucose sensor (FreeStyle Rocio 3 Sensor) Active .Route January 14, 2024 1:00am Calcium Carbonate-Vitamin D3 (Oyster Shell Calcium-Vit D3) 500 mg-5 mcg (200 unit) Tablet (17 sources) Start: 10-26-2023 End: 09-08-2024 take 1 tablet by mouth twice daily Calcium Carbonate-Vitamin D3 (Oyster Shell Calcium-Vit D3) 500 mg-5 mcg (200 unit) Tablet Discontinued 1 TAB PO Twice daily October 26, 2023 12:00am September 08, 2024 7:56am Start: 10-26-2023 End: 09-08-2024 take 1 tablet by mouth twice daily Calcium Carbonate-Vitamin D3 (Oyster Shell Calcium-Vit D3) 500 mg-5 mcg (200 unit) Tablet Discontinued 1 TAB PO Twice daily October 26, 2023 1:00am September 08, 2024 8:56am Start: 10-26-2023 take 1 tablet by alex th twice daily Calcium Carbonate-Vitamin D3 (Oyster Shell Calcium-Vit D3) 500 mg-5 mcg (200 unit) Tablet Active 1 TAB PO Twice daily 60 October 26, 2023 1:00am Start: 10-26-2023 take 1 tablet by alex th twice daily Calcium Carbonate-Vitamin D3 (Oyster Shell Calcium-Vit D3) 500 mg-5 mcg (200 unit) Tablet Active 1 TAB PO Twice daily 60 October 26, 2023 12:00am ciprofloxacin 500 mg oral tablet (20 sources) Quinolone Antimicrobial Start: 10-11-2023 End: 10-15-2023 take 1 tablet by mouth twice daily Ciprofloxacin Hcl 500 mg tablet Discontinued 500 MG PO Twice daily October [...] Active Ciprofloxacin No t-Taking/PRN Ciprofloxacin Ac tive cyclobenzaprine hydrochloride 10 mg oral tablet (20 sources) Muscle Relaxant Start: 05-16-2019 End: 10-11-2023 take 1 tablet by mouth three times daily as needed for muscle spasms Cyclobenzaprine 10 mg tablet Discontinued 10 MG PO Three times daily as needed for back spasms 50 May 16, 2019 12:00am October 11, [...] Discontinued 1 DROPS EYE-BOTH October 26, 2023 12:00am June 07, 2024 10:22am Start: 10-26-2023 End: 06-07-2024 take 1 drop(s) [...] DROPS EYE-BOTH Q12H October 11, 2023 12:00am Cyclosporine 0.05 % dropperette (4 sources) Start: 05-05-2019 End: 10-11-2023 take 1 drop(s) into the eye(s) twice daily Cyclosporine 0.05 % dropperette Discontinued 1 DROPS EYE-BOTH Twice daily May 05, 2019 12:00am October 11, 2023 5:25pm Start: 05-05-2019 End: 10-11-2023 take 1 drop(s) into the eye(s) twice daily Cyclosporine 0.05 % dropperette Discontinued 1 DROPS EYE-BOTH Twice daily May 04, 2019 11:00pm October 11, 2023 4:25pm D-Mannose (14 sources) Start: 01-14-2024 End: 01-17-2024 take 1 mg by mouth once daily D-Mannose (Azo D-Mannose) 500 mg capsule Discontinued MG PO Daily January 14, 2024 12:00am January 17, 2024 10:36am Start: 01-14-2024 End: 01-17-2024 take 1 mg by mouth once daily D-Mannose (Azo D-Mannose ) 500 mg capsule Discontinued MG PO Daily January 14, 2024 1:00am January 17, 2024 11:36am 12 hr dextromethorphan hydrobromide 30 mg / guaiFENesin 600 mg extended release oral tablet (20 sources) Uncompetitive T-jiwdjg-S-aspartate Receptor Antagonist, Sigma-1 Agonist Start: 11-03-2023 End: 03-07-2024 take 1 tablet by mouth every twelve hours as needed Dextromethorphan-Guaifenesin (Mucinex Dm) 30-600 mg tablet extended release 12 hr Discontinued 1 TAB PO Every 12 hours as needed January 17, 2024 11:37am March 07, 2024 11:11am docusate sodium 100 mg oral capsule (20 sources) Start: 10-26-2023 End: 03-07-2024 take 1 capsule by mouth twice daily as needed Docusate Sodium 100 mg capsule Discontinued 100 MG PO Twice daily as needed January 17, 2024 11:37am March 07, 2024 [...] ml enoxaparin sodium 100 mg/ml prefilled syringe (18 sources) Low Molecular Weight Heparin Start: 10-15-2023 End: 10-26-2023 Enoxaparin (Lovenox) 40 mg/0.4 mL Syringe Discontinued 40 MG SUBCUT DAILY@10 4 October 15, 2023 1:00am October 26, 2023 3:57pm fluticasone propionate 0.05 mg/actuat metered dose nasal spray (20 sources) Corticosteroid Start: 05-05-2019 End: 10-11-2023 Fluticasone Propionate 50 mcg/actuation [place],Suspension Discontinued 1 SPRAY INTRANASAL Daily as needed for allergies May 05, 2019 12:00am October 11, 2023 5:25pm gabapentin 300 mg oral capsule (20 sources) Anti-epileptic Agent Start: 05-05-2019 End: 10-11-2023 take 1 capsule by mouth three times daily Gabapentin 300 mg capsule Discontinued 300 MG PO Three times daily May 05, 2019 12:00am October 11, 2023 5:25pm hyaluronate (20 sources) Start: 09-02-2020 Gel-One Aug, 3 mL Insulin Aspart U-100 (Novolog Flexpen U-100 Insulin) 100 unit/mL (3 mL) Insulin Pen (17 sources) Start: 10-26-2023 End: 01-17-2024 inject 1 dose by subcutaneous injection once at mealtime Insulin Aspart U-100 (Novolog Flexpen U-100 Insulin) 100 unit/mL (3 mL) Insulin Pen Discontinued 1 sliding scale dose SUBCUT 3X/Day with meals and bedtime October 26, 2023 12:00am January 17, 2024 10:42am Start: 10-26-2023 End: 01-17-2024 inject 1 dose [...] U-100) 100 unit/mL (3 mL) Insulin Pen (18 sources) Start: 10-11-2023 End: 10-26-2023 inject 10 [...] ml insulin lispro 100 unt/ml pen injector (15 sources) Insulin Analog Start: 01-17-2024 End: 02-18-2024 [...] another clinician) levoFLOXacin 500 mg oral tablet (18 sources) Quinolone Antimicrobial Start: 10-15-2023 End: 10-26-2023 take 1 tablet by mouth once daily Levofloxacin 500 mg tablet Discontinued 500 MG PO Daily 5 5 October 15, 2023 1:00am October 26, 2023 3:57pm x5D levothyroxine sodium 0.05 mg oral tablet (20 sources) l-Thyroxine Start: 05-05-2019 End: 09-04-2024 take 1 tablet by mouth once daily Levothyroxine 50 mcg Tablet Discontinued 50 MCG PO Daily at 0630 30 October 26, 2023 1:00am July 31, 2024 1:05pm take 1 tablet by mouth once donn y Levothyroxine Sodium 50 MCG TAKE 1 TABLET BY MOUTH EVERY DAY for 90 Active 3 ml liraglutide 6 mg/ml pen injector (19 sources) GLP-1 Receptor Agonist Start: 10-11-2023 End: 10-26-2023 Liraglutide (Victoza 2-Sterling) 0.6 mg/0.1 mL (18 mg/3 mL) Pen Injector Discontinued 18 MG SUBCUT Daily October 11, 2023 1:00am October 26, 2023 3:57pm lisinopril 5 mg oral tablet (20 sources) Angiotensin Converting Enzyme Inhibitor Start: 05-05-2019 End: 10-12-2023 take 1 tablet by mouth once daily Lisinopril 5 mg Tablet Discontinued 5 MG PO Daily October 11, 2023 1:00am October 12, 2023 5:27pm melatonin 5 mg oral tablet (20 sources) Start: 03-07-2024 End: 12-06-2024 take 1 tablet by mouth once daily at bedtime as needed for sleep Melatonin 5 mg tablet Discontinued 5 MG PO Daily at bedtime as needed for sleep March 07, 2024 12:00am December 06, 2024 12:23pm Start: 10-26-2023 End: 02-18-2024 take 1 tablet by mouth once daily at bedtime as needed Melatonin 5 mg Tablet Discontinued 5 MG PO Daily at bedtime as needed for Insomnia October 26, 2023 1:00am February 18, 2024 2:05pm Britt 3 1000 MG (20 sources) take 1 capsule by mo uth once daily as needed Britt 3 1000 MG 1 capsule Orally Once a day Not-Taking/PRN take 1 capsule by mouth once dinorah ly Britt 3 1000 MG 1 capsule Orally Once a day Active omeprazole 20 mg delayed release oral capsule (19 sources) Proton Pump Inhibitor Start: 10-11-2023 End: 10-26-2023 take 1 capsule by mouth once daily Omeprazole 20 mg Capsule,Delayed Release(Dr/Ec) Discontinued 20 MG PO Daily October 11, 2023 1:00am October 26, 2023 3:57pm oxyCODONE hydrochloride 5 mg oral capsule (20 sources) Opioid Agonist Start: 05-16-2019 End: 10-11-2023 take 5-10 mg by mouth every six hours as needed for pain Oxycodone 5 mg capsule Discontinued 5 - 10 MG PO Q6H as needed for pain 60 8 May 16, 2019 October 11, 2023 5:25pm pantoprazole 40 mg delayed release oral tablet (20 sources) Proton Pump Inhibitor Start: 10-26-2023 End: 01-17-2024 take 1 tablet by mouth once daily Pantoprazole 40 mg Tablet,Delayed Release (Dr/Ec) Discontinued 40 MG PO Daily October 26, 2023 1:00am January 17, 2024 11:45am pioglitazone 15 mg oral tablet (20 sources) Peroxisome Proliferator Receptor alpha Agonist, Peroxisome Proliferator Receptor gamma Agonist, Thiazolidinedione Start: 10-26-2023 End: 01-17-2024 take 3 tablets by mouth once daily Pioglitazone 15 mg Tablet Discontinued 45 MG PO DAILY@0800 October 26, 2023 1:00am January 17, 2024 11:46am Start: 10-26-2023 End: 01-17-2024 take 45 mg by mouth once daily Pioglitazone Discontinu ed 45 MG PO DAILY@0800 October 26, 2023 1:00am January 17, 2024 11:46am Start: 11-10-2021 End: 01-26-2024 take 1 tablet by mouth once daily Pioglitazone HCl - 30 MG Oral Tablet TAKE 1 TABLET BY MOUTH EVERY DAY Quantity: 90 Refills: 0 Ordered: 03-Dec-2021 DO Start : 10-Nov-2021 Active take 1 tablet by alex every twenty-four hours Pioglitazone HCl 15 MG [...] June 30, 2024 11:13am Start: 11-10-2021 End: 12-20-2024 Potassium Chloride (Klor-Con M10) 10 mEq tablet,ER particles/crystals Discontinued 10 MEQ PO Daily October 11, 2023 1:00am October 26, 2023 3:57pm Start: 05-05-2019 End: 10-11-2023 take 1 tablet by mouth once daily Potassium Chloride 10 mEq tablet extended release Discontinued 10 MEQ PO Daily May 05, 2019 12:00am October 11, 2023 5:25pm take 1 tablet by [facility] every twelve hours Potassium Chloride [facility] 10 MEQ 1 tablet with food Orally Twice a day Active predniSONE 10 mg oral tablet (20 sources) Start: 05-16-2019 End: 10-11-2023 Prednisone 10 mg tablets,dos e pack Discontinued 1 dose pk PO per package directions [...] 1 capsule by mouth once daily Propranolol 160 mg capsule,extended release 24 hr Discontinued 0 .ROUTE .COMPLEX 90 March 23, 2024 9:51am June 30, 2024 11:13am TAKE 1 CAPSULE BY MOUTH EVERY DAY Start: 10-26-2023 End: 03-23-2024 take 1 capsule by mouth once daily Propranolol 80 mg capsule,extended release 24hr Discontinued 80 MG PO Daily January 17, 2024 11:46am March 23, 2024 9:28am Start: 10-26-2023 End: 01-17-2024 take 160 mg by mouth once daily Propranolol Discontinued 160 MG PO Daily 60 October 26, 2023 1:00am January 17, 2024 11:47am Start: 05-05-2019 End: 07-13-2024 take 1 capsule by mouth once daily Propranolol 160 mg capsule,extended release 24 hr Discontinued 160 MG PO Daily March 23, 2024 12:00am March 23, 2024 9:51am Propranolol HCl Active rosuvastatin calcium 20 mg oral tablet (14 sources) HMG-CoA Reductase Inhibitor Start: 07-11-2023 End: 01-26-2024 take 1 tablet by mouth once daily rosuvastatin (Crestor) 20 mg tablet Take 1 tablet (20 mg) by mouth once daily. 0 07/11/2023 01/26/2024 Discontinued (Discontinued by another clinician) Start: 01-14-2023 End: 07-13-2024 take 1 tablet by mouth once daily Rosuvastatin Calcium 20 MG Oral Tablet TAKE 1 TABLET DAILY. Quantity: 90 Refills: 3 Ordered: 14-Jan-2023 Yusuf Hayward MD Start : 14-Jan-2023 Active new start Rosuvastatin Joseph cium Not-Taking/PRN Rosuvastatin Joseph cium Active SITagliptin 100 mg oral tablet (19 sources) Dipeptidyl Peptidase 4 Inhibitor Start: 10-11-2023 End: 10-26-2023 take 1 tablet by mouth once daily Sitagliptin Phosphate (Januvia) 100 mg Tablet Discontinued 100 MG PO Daily October 11, 2023 1:00am October 26, 2023 3:57pm sodium pertechnetate Tc-99m (Technelite) injection 25 millicurie (1 source) Start: 10-19-2024 End: 10-19-2024 25 millicurie, intravenous, Once in imaging, Starting on Rani 10/19/24 at 1522, For 1 dose, Administer immediately and up to 2 hours prior to imaging unless otherwise indicated spironolactone 25 mg oral tablet (20 sources) Aldosterone Antagonist Start: 11-10-2021 End: 11-29-2025 take 1 tablet by mouth twice daily Spironolactone 25 mg tablet Discontinued 25 MG PO Twice daily January 17, 2024 12:00am February 18, 2024 2:05pm sulfamethoxazole 800 mg / trimethoprim 160 mg oral tablet (20 sources) Dihydrofolate Reductase Inhibitor Antibacterial, Sulfonamide Antimicrobial Start: 05-16-2019 End: 10-11-2023 take 1 tablet by mouth every twelve hours Sulfamethoxazole-Tr imethoprim (Bactrim Ds) 800-160 mg Tablet Discontinued 1 TAB PO Q12H May 16, 2019 12:00am October 11, 2023 5:25pm ticagrelor 90 mg oral tablet (12 sources) Start: 06-30-2024 End: 12-20-2024 take 1 tablet by mouth twice daily Ticagrelor (Brilinta) 90 mg Tablet Discontinued 90 MG PO Twice daily 180 90 June 30, 2024 12:00am September 04, 2024 1:39pm tiZANidine 2 mg oral tablet (10 sources) [...] 18-Aug-2021 Active Start: 05-05-2019 End: 05-16-2019 take 1 tablet by mouth once daily Tramadol 50 mg Tablet Discontinued 50 MG PO Daily May 05, 2019 12:00am May 16, 2019 7:34am Triamcinolone (20 sources) Corticosteroid Start: 05-27-2020 Kenalog -40 mg May, 40 mg zinc gluconate 50 mg oral tablet (20 sources) Start: 11-03-2023 End: 02-18-2024 take 1 tablet by mouth once daily Zinc Gluconate 50 mg Tablet Discontinued 50 MG PO Daily November 03, 2023 1:00am February 18, 2024 2:06pm zolpidem tartrate 5 mg oral tablet (20 sources) gamma-Aminobutyric Acid-ergic Agonist Start: 06-29-2024 End: 09-04-2024 take 2 tablets by mouth once daily at bedtime as needed Zolpidem 5 mg tablet Discontinued 10 MG PO Daily at bedtime as needed for insomnia June 29, 2024 12:00am September 04, 2024 1:40pm Start: 06-29-2024 End: 09-04-2024 take 10 mg by mouth once daily at bedtime Zolpidem Discontinued 10 MG PO Daily at bedtime June 29, 2024 12:00am September 04, 2024 1:40pm Start: 03-13-2024 End: 06-29-2024 take 1 tablet by mouth once daily at bedtime as needed Zolpidem 5 mg tablet Discontinued 5 MG PO Daily at bedtime as needed for insomnia 90 90 March 13, 2024 12:00am June 29, 2024 5:14am Start: 10-11-2023 End: 10-26-2023 take 2 tablets by mouth once daily at bedtime Zolpidem 5 mg Tablet Discontinued 10 MG PO Daily at bedtime October 11, 2023 1:00am October 26, 2023 3:57pm Start: 10-11-2023 End: 10-26-2023 take 10 mg by mouth once daily at bedtime Zolpidem Discontinued 10 MG PO Daily at bedtime October 11, 2023 1:00am October 26, 2023 3:57pm Start: 05-05-2019 End: 07-13-2024 take 1 tablet by mouth once daily at bedtime Zolpidem 10 mg tablet Discontinued 10 MG PO Daily at bedtime March 07, 2024 11:15am March 13, 2024 8:35am Problems Active Problems Problem Classification Problem Date Documented Date Episodic/Chronic Acute myocardial infarction (10 sources) Acute myocardial infarction of anterior wall; Translations: [ST elevation (STEMI) myocardial infarction involving other coronary artery of anterior wall] Onset: 06-29-2024 06-29-2024 Chronic Administrative/social admission (20 sources) Other reduced mobility; Translations: [Impaired mobility and activities of daily living] 10-13-2023 Episodic Cancer; other and unspecified primary (20 sources) H/O: malignant neoplasm; Translations: [Personal history of malignant neoplasm, unspecified] Episodic Cancer; other and unspecified primary (1 source) Personal history of malignant neoplasm, unspecified; Translations: [History of cancer] Episodic Chronic ulcer of skin (8 sources) Pressure ulcer of unspecified site, stage 1; Translations: [Healing decubitus ulcer, stage 1] Chronic Congestive heart failure; nonhypertensive (3 sources) Congestive heart failure stage C due to ischemic cardiomyopathy; Translations: [Heart failure, unspecified] Onset: 07-13-2024 07-13-2024 Chronic Coronary atherosclerosis and other heart disease (20 sources) Atherosclerotic heart disease of hopi coronary artery without angina pectoris; Translations: [Coronary [...] and unspecified hyperlipidemia] Onset: 12-22-2022 10-11-2023 Chronic E Codes: Fall (20 sources) Fall on same level from slipping, tripping and stumbling with subsequent striking against unspecified object, initial encounter; Translations: [Fall] Onset: 12-22-2022 10-11-2023 Episodic Essential hypertension (20 sources) Essential (primary) hypertension; Translations: [Benign essential hypertension] Onset: 12-13-2018 Chronic Fluid and electrolyte disorders (15 sources) Hypokalemia; Translations: [Hypokalemia] Onset: 12-13-2018 Episodic Fracture of neck of femur (hip) (20 sources) Closed fracture of femur, subcapital; Translations: [Unspecified intracapsular fracture of right femur, initial encounter for closed fracture] 10-11-2023 Episodic Fracture of upper limb (8 sources) Nondisplaced fracture of neck of left radius, initial encounter for closed fracture; Translations: [Displaced fracture of distal phalanx of left index finger, initial encounter for closed fracture] Onset: 12-22-2022 Episodic Genitourinary symptoms and ill-defined conditions (12 sources) Frequency of micturition; Translations: [Dysuria] Onset: 07-01-2015 Episodic Headache; including migraine (2 sources) Migraine with aura; Translations: [Migraine with aura, without mention of intractable migraine without mention of status migrainosus] Onset: 07-06-2016 Chronic Immunizations and screening for infectious disease (20 sources) Patient encounter status; Translations: [Other specified vaccination] Onset: 12-22-2022 Resolved: 01-16-2022 01-14-2024 Episodic Menopausal disorders (1 source) Hormone replacement therapy; Translations: [HORMONE REPLACEMENT THERAPY] Onset: 12-22-2022 Episodic Mycoses (20 sources) Candidiasis; Translations: [Candidiasis of other urogenital sites] Onset: 07-05-2014 11-11-2023 Episodic Nutritional deficiencies (13 sources) Vitamin D deficiency; Translations: [Vitamin D deficiency, unspecified] Chronic Osteoarthritis (20 sources) Arthritis of left knee; Translations: [Unilateral primary osteoarthritis, left knee] Chronic Other acquired deformities (2 sources) Acquired postural kyphosis; Translations: [Unspecified kyphosis, site unspecified] Onset: 02-08-2014 Chronic Other aftercare (2 sources) 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; Translations: [RESIDENTIAL (CURRENT) USE OF ASPIRIN] Onset: 12-13-2018 Episodic Other aftercare (1 source) Other intermodal customer service (current) drug therapy; Translations: [OTH TENTERING MACHINE FEEDER CURRENT DRUG THERAPY] Onset: 12-22-2022 Episodic Other [...] joint replacement] Chronic Other connective tissue disease (14 sources) History of repair of hip joint; [...] [Swelling, mass, or lump in chest] Onset: 12-13-2024 10-15-2023 Episodic Other lower respiratory disease (1 source) Dyspnea on exertion; Translations: [Other forms of dyspnea] 12-20-2024 Episodic Other lower respiratory disease (2 sources) Other forms of dyspnea; Translations: [Other forms of dyspnea] Onset: 12-20-2024 Episodic Other nervous system disorders (1 source) Metabolic encephalopathy; Translations: [METABOLIC ENCEPHALOPATHY] Onset: 12-13-2018 Chronic Other nervous system disorders (20 sources) Chronic pain; Translations: [Other chronic pain] Chronic Other nervous system disorders (18 sources) Postoperative pain ; Translations: [Other acute postprocedural pain] 10-13-2023 Episodic Other nervous system disorders (7 sources) Other acute postprocedural pain; Translations: [Other acute postoperative pain] 10-15-2023 Episodic Other non-traumatic joint disorders (3 sources) [...] Episodic Other nutritional; endocrine; and metabolic disorders (17 sources) Body mass index (BMI) 26.0-26.9, adult; Translations: [Body Mass Index 26.0-26.9, adult] Onset: 12-20-2024 Episodic Other nutritional; endocrine; and metabolic disorders (18 sources) Overweight in adulthood with body mass index of 25 or more but less than 30; Translations: [Body mass index (BMI) 26.0-26.9, adult] Onset: 12-20-2024 01-14-2024 Episodic Other skin disorders (2 sources) Disorder of left lower extremity; Translations: [Localized swelling, mass and lump, left lower limb] Onset: 01-22-2025 01-22-2025 Episodic Other skin disorders (2 sources) Localized swelling, mass and lump, left lower limb; Translations: [Localized swelling, mass and lump, left lower limb] Onset: 01-22-2025 Episodic Other upper respiratory infections (2 sources) [...] symptom; Translations: [Edema] Episodic Residual codes; unclassified (14 sources) Edema; Translations: [Edema] Onset: 11-02-2023 01-26-2024 Episodic Residual codes; unclassified (20 sources) History of left mastectomy; Translations: [Acquired absence of left breast and nipple] Episodic Residual codes; unclassified (20 sources) Insomnia; Translations: [Insomnia, unspecified] 10-26-2023 Episodic Residual codes; unclassified (7 sources) Insomnia, unspecified; Translations: [Insomnia, unspecified] Episodic Residual codes; unclassified (2 sources) Localized [...] of diabetes mellitus] Episodic Residual codes; unclassified (1 source) History of cardiac catheterization; Translations: [Other specified postprocedural states] 06-29-2024 Episodic Septicemia (except in labor) (2 sources) [...] source) C/O ALTERED MENTAL STATUS Onset: 12-13-2018 Urinary tract infections (7 sources) Urinary tract infection, site not specified; Translations: [Urinary tract infectious disease] Onset: 12-13-2018 Episodic Viral infection (20 sources) Herpes zoster with nervous system complication; Translations: [Herpes zoster with unspecified nervous system complication] Onset: 04-01-2017 10-27-2023 Episodic Past or Other Problems Problem Classification Problem Date Documented Da te Episodic/Chronic Acute bronchitis (2 sources) Acute bronchitis; Translations: [Acute bronchitis, unspecified] Onset: 10-23-2014 Episodic Allergic reactions (6 sources) Allergy status [...] neoplasm of breast] Onset: 01-12-2014 10-13-2023 Episodic Coronary atherosclerosis and other heart disease (3 sources) Presence of coronary angioplasty implant and graft; Translations: [Coronary angioplasty status] Onset: 12-13-2018 Episodic Malaise and fatigue (2 sources) Asthenia; Translations: [Weakness] Onset: 01-16-2019 Episodic Nonmalignant breast conditions (4 sources) Discharge from nipple; Translations: [Nipple discharge] Onset: 07-01-2015 Episodic Nonspecific chest pain (3 sources) Chest pain; Translations: [Chest pain, unspecified] Onset: 05-23-2015 Episodic Other aftercare (1 source) termite control representative (current) use of insulin; Translations: [TENTERING MACHINE FEEDER CURRENT USE OF INSULIN] Onset: 03-04-2022 Episodic Other connective tissue disease (2 sources) Muscle pain; Translations: [MYALGIA, UNSPECIFIED SITE] Onset: 08-18-2018 Episodic Other ear and sense organ disorders (2 sources) Otalgia; Translations: [Otalgia, unspecified ear] Onset: 05-06-2015 Episodic Other skin disorders (2 sources) Inflamed seborrheic keratosis; Translations: [Inflamed seborrheic keratosis] Onset: 02-15-2014 Episodic Residual codes; unclassified (11 sources) Body mass index 20-24 - normal; Translations: [Body Mass Index between 19-24, adult] Onset: 07-13-2024 07-13-2024 Episodic Residual codes; unclassified (20 sources) Other specified postprocedural states; Translations: [Other postprocedural status] Onset: 06-29-2024 12-08-2023 Episodic Residual codes; unclassified (8 sources) Never smoked tobacco; Translations: [Other specified health status] Onset: 01-26-2024 01-26-2024 Episodic Residual codes; unclassified (2 sources) Edema, unspecified; Translations: [Edema, unspecified] Onset: 11-02-2023 Episodic Residual codes; unclassified (2 sources) Body mass index (BMI) 24.0-24.9, adult; Translations: [Body mass index (BMI) 24.0-24.9, adult] Onset: 07-13-2024 Episodic Residual codes; unclassified (2 sources) Other specified health status; Translations: [Other specified health status] Onset: 01-26-2024 Episodic Syncope (2 sources) Syncope and collapse; Translations: [Syncope and collapse] Onset: 07-31-2016 Episodic Unclassified (5 sources) Never smoked tobacco; Translations: [Never a smoker] Unclassified (6 sources) Onset: 01-26-2024 Resolved: 01-22-2025 01-26-2024 Unclassified (1 source) Disorder of left lower extremity 01-22-2025 Results Test Name Value Interpretation Reference Range Facility US venous duplex [facility] US venous duplex [facility] Main [address] [address] Ultrasound Report Signed Patient: Heidi Palmer MR#: [id number] 13 : 1940 Acct:[id number] Age/Sex: 84 / F ADM Date: 01/22/25 Loc: Room: Type: DEP CLI Attending Dr: José Antonio Hills APRN Ordering Provider: José Antonio Hills APRN Date of Service: 01/22/25 US/US venous duplex LE LT: R60.9,R22.42 Copies to: José Antonio Hills APRN LEFT LOWER EXTREMITY VENOUS DUPLEX INDICATION: Painful swollen left leg Unilateral left lower extremity venous duplex Doppler study was obtained utilizing B-mode, color- flow and spectral Doppler. FINDINGS: The left common femoral, femoral, and popliteal veins showed adequate compressibility, color-flow and augmentation. The left posterior tibial and peroneal veins were compressible, as well as proximal greater saphenous vein. The contralateral right common femoral vein was compressible with color-flow and augmentation. US/US venous duplex LE LT IMPRESSION: NO EVIDENCE OF DEEP VENOUS THROMBOSIS IN THE LEFT LOWER EXTREMITY. NO SUPERFICIAL THROMBOPHLEBITIS WAS NOTED. Impression dictated by: Jamison Dale M.D.01/24/2025 7:06 AM Dictation Location: [place] [address] Tech: Afua Benedict Transcribed By: CHEKO 01/24/25 0706 Dictated By: Jamison Dale MD 01/24/25 0706 Signed By: 01/24/25 0706 Normal [facility] Cholesterol in LDL Calc [Mas s/Vol]on 01-01-2025 Cholesterol in LDL [Mass/Vol] Cholesterol in LDL [Mass/volume] in Serum or Plasma by calculation [facility] Comment on above: <100 mg/dl [id number] 0-129 mg/dl NEAR OR ABOVE [id number] mg/dl BORDERLINE [id number] mg/dl HIGH>190 mg/dl VERY HIGH Cholesterol in VLDL Calc [Ma ss/Vol]on 01-01-2025 Cholesterol in VLDL [Mass/Vol] Cholesterol in VLDL [Mass/volume] in Serum or Plasma by calculation [facility] Estimated glomerular filtrat ion rate (GFR) non- Americanon 01-01-2025 GFR/1.73 sq M.predicted among non-blacks MDRD (S/P/Bld) [Vol rate/Area] Estimated glomerular filtration rate (GFR) non- Low >=60 mL/min/1.7 3m 2 [facility] - Chemistry and C hemistry - challengeon 01-01-2025 Calcium [Mass/Vol] 9.8 mg/dL 8.5-10.1 [facility] Chloride [Moles/Vol] 99 mmol/L 98-107 [facility] Cholesterol [Mass/Vol] 179 mg/dL <=200 Fi [facility] Cholesterol in HDL [Mass/Vol] 57 mg/dL 40-60 [facility] Comment on above: > or =60 mg/dl - LOW CARDIOVASCULAR RISK<40 mg/dl - HIGH CARDIOVASCULAR RISK CO2 [Moles/Vol] 30.0 mmol/L 21.0-32.0 [facility] Creatinine [Mass/Vol] 0.98 mg/dL 0.55-1.02 [facility] GFR/1.73 sq M.predicted MDRD (S/P/Bld) [Vol rate/Area] mL/min/{1.73_m2} >=60 mL/min/1.7 3m 2 [facility] Glucose [Mass/Vol] 221 mg/dL High 74-106 [facility] Natriuretic peptide B (Bld) [Mass/Vol] 146.0 pg/mL <=1800.0 [facility] Potassium [Moles/Vol] 4.3 mmol/L 3.5-5.1 [facility] Sodium [Moles/Vol] 137 mmol/L 136-145 [facility] Triglyceride [Mass/Vol] 167 mg/dL High <=150 F [facility] Urea nitrogen [Mass/Vol] 17.0 mg/dL 7.0-18.0 [facility] Urea nitrogen/Creatinine [Mass ratio] 17.3 mg/mg [facility] Serum or plasma anion gap de terminationon 01-01-2025 Anion gap [Moles/Vol] Serum or plasma an ion gap determination [facility] Serum or plasma total choles terol/high density lipoprotein (HDL) cholesterol mass carlos 01-01-2025 Cholesterol.total/Consuelo sterol in HDL [Mass ratio] Serum or plasma total cholesterol/high density lipoprotein (HDL) cholesterol mass rat [facility] Comment on above: 3.3 - 4.4 LOW RISK4. 4 - 7.1 AVERAGE RISK7.1 - 11.0 MODERATE RISK>11.[address] chest wo conon 12-07-2024 CT chest wo con [facility] [place] [address] [place] [address] CT Scan Report Signed Patient: Heidi Palmer MR#: [id number] 13 : 1940 Acct:[id number] Age/Sex: 84 / F ADM Date: 12/07/24 Loc: Room: Type: [facility] RCR Attending Dr: Tosha Patel MD Copies to: Tosha Patel MD Ordering Provider: Tosha Patel MD Date of Service: 12/07/24 CT/CT chest wo con: follow up lung nodule CT CHEST WITHOUT IV CONTRAST: CLINICAL HISTORY: Follow-up lung nodule. COMPARISON: CT chest 06/07/2024, 10/11/2023 TECHNIQUE: Spiral images were obtained through the chest without IV contrast. This CT exam was performed using one or more following dose reduction techniques: Automated exposure control, adjustment of the mA and/or kV according to patient size, or use of iterative reconstruction technique. FINDINGS: Mediastinum:Thoracic aorta demonstrates moderate calcification without aneurysm. Pulmonary trunk appears nondilated. No pleural effusion. No lymphadenopathy. The esophagus is grossly unremarkable. Lungs:No consolidation pneumothorax or pleural effusion. Lingular scarring with associated tree-in-bud nodularity similar to the prior study. This is seen to lesser degree involving the left lower lobe. Abd:Cholelithiasis. No acute process. Soft tissues/Bones: Left mastectomy changes. No axillary lymphadenopathy. Osseous structures demonstrate degenerative change. CT/CT chest wo con IMPRESSION: Grossly stable tree-in-bud nodularity involving the left lung compared to the 06/07/2024 study. No progression of disease is seen. CT follow-up is recommended to ensure resolution. Impression dictated by: Anthony Benson Jr., D.O.12/07/2024 3:04 PM Dictation Location: [place] [address] Transcribed By: [facility] 12/07/24 1504 Dictated By: Anthony Benson Jr, DO 12/07/24 1502 Signed By: 12/07/24 1504 Normal [facility] No Panel Informationon 12-06 Bedside Glucose 263 [facility] NM Heart Wall motion and Eje ction fractionon 10-19-2024 Normal resting right ventricular function. Normalresting left ventricular function. Left ventricular ejection fraction is 67%. No previous study available comparison Signed by: Mukesh Cardozo 10/19/2024 4:38 PM Dictation workstation: [id number] [facility] MMODAL Interpreted By: Mukesh Cardozo and Giannuzzi Michael STUDY: MUG Performing facility: [facility], [address] [place] [address], [address] [place] [address] Provider: Sol Mcdermott DO, [facility] PCP: Dr. Huan Hook Supervising provider: Anabel Mccloud MD, [facility] INDICATION: CAD; HISTORY: Gender: F; Age: 84 y/o ; Height: HT 165.1 cm cm; Weight: WT 66.225 kg kg. High Cholesterol; CAD; Diabetes; HTN; Previous [place];2023 ICM Denies smoking. Cardiac catheterization on 2023. PTCA on 2023. COMPARISON: Previous nuclear testing completed [id number] MPI EF= 88% at [facility]. Previous echo testing completed [id number] EF=40% at [facility]. ACCESSION NUMBER(S): [id number] ORDERING CLINICIAN: YUSUF MCDERMOTT TECHNIQUE: The patient's red cells were labeled using 2.8 ml cold PYP. After waiting 25 minutes 27.0 mCi of technetium 99m pertechnetate was injected and gated cardiac images were then acquired with images obtained in the anterior, left anterior oblique, and left lateral projections. FINDINGS: The right ventricle was normal. The left ventricle was normal in size. Regional wall motion was normal. Global resting LVEF was normal- at 67%. [facility] MM[facility]AL Mukesh Cardozo MD - 10/19/2024 Interpreted By: Mukesh Cardozo and Giannuzzi Michael STUDY: MUGA Performing facility: [facility], [address] [facility], [address], [place] [id number] [facility] Provider: Sol Mcdermott DO, [facility] PCP: Dr. Huan Hook Supervising provider: Anabel Mccloud MD, [facility] INDICATION: CAD; HISTORY: Gender: F; Age: 84 y/o ; Height: HT 165.1 cm cm; Weight: WT 66.225 kg kg. High Cholesterol; CAD; Diabetes; HTN; Previous [place];2023 ICM Denies smoking. Cardiac catheterization on 2023. PTCA on 2023. COMPARISON: Previous nuclear testing completed [id number] MPI EF= 88% at [facility]. Previous echo testing completed [id number] EF=40% at [facility]. ACCESSION NUMBER(S): [id number] ORDERING CLINICIAN: YUSUF MCDERMOTT TECHNIQUE: The patient's red cells were labeled using 2.8 ml cold PYP. After waiting 25 minutes 27.0 mCi of technetium 99m pertechnetate was injected and gated cardiac images were then acquired with images obtained in the anterior, left anterior oblique, and left lateral projections. FINDINGS: The right ventricle was normal. The left ventricle was normal in size. Regional wall motion was normal. Global resting LVEF was normal- at 67%. IMPRESSION: Normal resting right ventricular function. Normalresting left ventricular function. Left ventricular ejection fraction is 67%. No previous study available comparison Signed by: Mukesh Cardozo 10/19/2024 4:38 PM Dictation workstation: [id number] [facility] Work Phone: Radiology Study observation (narrative) [facility] Work Phone: NM Heart Wall motion and Eje ction fractionOrdered By: Mukesh Cardozo on 10-19-2024 [facility] Work Phone: NM HEART BLOOD POOL EJECTION FRACTION WALL MOTION (MUGA)on 10-09-2024 NM HEART BLOOD POOL EJECTION FRACTION WALL MOTION (MUGA) Interpreted By: Mukesh Cardozo and Giannuzzi Michael STUDY: MUGA Performing facility: [facility], [address] [place] [address], [address], [place] [address] [facility] Provider: Sol Mcdermott DO, [facility] PCP: Dr. Huan Hook Supervising provider: Anabel Mccloud MD, [facility] INDICATION: CAD; HISTORY: Gender: F; Age: 84 y/o ; Height: HT 165.1 cm cm; Weight: WT 66.225 kg kg. High Cholesterol; CAD; Diabetes; HTN; Previous [place];2023 ICM Denies smoking. Cardiac catheterization on 2023. PTCA on 2023. COMPARISON: Previous nuclear testing completed [id number] MPI EF= 88% at [facility]. Previous echo testing completed [id number] EF=40% at [facility]. ACCESSION NUMBER(S): [id number] ORDERING CLINICIAN: YUSUF MCDERMOTT TECHNIQUE: The patient's red cells were labeled using 2.8 ml cold PYP. After waiting 25 minutes 27.0 mCi of technetium 99m pertechnetate was injected and gated cardiac images were then acquired with images obtained in the anterior, left anterior oblique, and left lateral projections. FINDINGS: The right ventricle was normal. The left ventricle was normal in size. Regional wall motion was normal. Global resting LVEF was normal- at 67%. IMPRESSION: Normal resting right ventricular function. Normalresting left ventricular function. Left ventricular ejection fraction is 67%. No previous study available comparison Signed by: Mukesh Cardozo 10/19/2024 4:38 PM Dictation workstation: [id number] [facility] No Panel Informationon 09-08 Bedside Glucose 204 [facility] Cholesterol in LDL Calc [Mas s/Vol]on 09-05-2024 Cholesterol in LDL [Mass/Vol] 76.8 mg/dL [facility] Comment on above: <100 mg/dl [id number] 0-129 mg/dl NEAR OR ABOVE [id number] mg/dl BORDERLINE [id number] mg/dl HIGH>190 mg/dl VERY HIGH Cholesterol in VLDL Calc [Ma ss/Vol]on 09-05-2024 Cholesterol in VLDL [Mass/Vol] 23.2 mg/dL [facility] Laboratory - Chemistry and C hemistry - challengeon 09-05-2024 Cholesterol [Mass/Vol] 149 mg/dL <=200 Fi [facility] Cholesterol in HDL [Mass/Vol] 49 mg/dL 40-60 [facility] Comment on above: > or =60 mg/dl - LOW CARDIOVASCULAR RISK<40 mg/dl - HIGH CARDIOVASCULAR RISK Triglyceride [Mass/Vol] 116 mg/dL <=150 F [facility] Serum or plasma total choles terol/high density lipoprotein (HDL) cholesterol mass carlos 09-05-2024 Cholesterol.total/Consuelo sterol in HDL [Mass ratio] 3.0 {ratio} [facility] Comment on above: 3.3 - 4.4 LOW RISK4. 4 - 7.1 AVERAGE RISK7.1 - 11.0 MODERATE RISK>11.0 HIGH RISK Anisocytosis [Presence] in B lood by Light microscopyOrdered By: Roberto Carlos Mcdermott on 06-30-2024 Anisocytosis Ql (Bld) Slight Normal [facility] Comment on above: Performed By: #### B MP, DIFF CBC #### [facility] [address] Basic Metabolic Panelon 06-09 Creatinine Clr Calc Pharmacy 46.26 Normal [facility] Comment on above: Result Comment: PERF ORMED BY: [address] [place] [address] PATHOLOGIST [employer]ANT MELODY WHEELER M.D. Performed By: #### B MP, DIFF CBC #### [facility] [address] GFR/1.73 sq M.predicted MDRD (S/P/Bld) [Vol rate/Area] mL/min/{1.73_m2} Normal [facility] Comment on above: Performed By: #### B MP, DIFF CBC #### [facility] [address] Basophils Auto (Bld) [#/Vol] Ordered By: Roberto Carlos Mcdermott on 06-30-2024 Basophils (Bld) [#/Vol] N/A F [facility] Basophils/100 WBC Auto (Bld) Ordered By: Roberto Carlos Mcdermott on 06-30-2024 Basophils/100 WBC (Bld) N/A F [facility] Calcium [Mass/volume] in Ser um or PlasmaOrdered By: Roberto Carlos Mcdermott on 06-30-2024 Calcium [Mass/Vol] 8.9 mg/dL Normal 8.6-10.3 [facility] Comment on above: Performed By: #### B MP, DIFF CBC #### [address] Carbon dioxide, total [Moles /volume] in Serum or PlasmaOrdered By: Roberto Carlos Mcdermott on 06-30-2024 CO2 [Moles/Vol] 25.9 mmol/L Normal 21.0-31.0 [facility] Comment on above: Performed By: #### B MP, DIFF CBC #### [place] [address] [place] Chloride [Moles/volume] in S cedric or PlasmaOrdered By: Roberto Carlos Mcdermott on 06-30-2024 Chloride [Moles/Vol] 101 mmol/L Normal 98-107 [facility] Comment on above: Performed By: #### B MP, DIFF CBC #### [address] Creatinine [Mass/volume] in Serum or PlasmaOrdered By: Roberto Carlos Mcdermott on 06-30-2024 Creatinine [Mass/Vol] 0.68 mg/dL Normal 0.60-1.20 [facility] Comment on above: Performed By: #### B MP, DIFF CBC #### [address] Diff and CBCon 06-30-2024 Mean Corpuscular HGB Conc 33.7 g/dL Normal 32.0-35.0 [facility] Comment on above: Performed By: #### B MP, DIFF CBC #### [address] Metamyelocytes 3 % High 0-0 [facility] Comment on above: Performed By: #### B MP, DIFF CBC #### [address] Ovalocytes Slight Normal [facility] Comment on above: Performed By: #### B MP, DIFF CBC #### [address] Platelet Estimate Normal Normal Normal [facility] Comment on above: Performed By: #### B MP, DIFF CBC #### [address] [place] [address] [place] Platelet Morphology Normal Normal Normal [facility] Comment on above: Result Comment: PERF ORMED BY: [place] [address] PATHOLOGIST [employer] SALES CONSULTANT MELODY WHEELER M.D. Performed By: #### B MP, DIFF CBC #### [facility] [address] [place] [address] [place] Poikilocytosis Slight Normal [facility] Comment on above: Performed By: #### B MP, DIFF CBC #### [address] Reactive Lymphocytes 1 % Normal 0-12 [facility] Comment on above: Performed By: #### B MP, DIFF CBC #### [address] Schistocytes Slight Normal [facility] Comment on above: Performed By: #### B MP, DIFF CBC #### [address] ECG 12 lead ECGon 06-30-2024 ECG 12 lead ECG [facility] [address] [place] [address] [place] [address] Electrocardiograph Report Signed Patient: Heidi Palmer MR#: [id number] 13 : 1940 Acct:[id number] Age/Sex: 84 / F ADM Date: 06/29/24 Loc: Room: [address] [place] [address] Type: DIS IN Attending Dr: Roberto Carlos Mcdermott DO Ordering Provider: Roberto Carlos Mcdermott DO Date of Service: 06/30/24 ECG/ECG 12 lead ECG: Anterior STEMI Copies to: Test Reason : Blood Pressure : 114/56 mmHG Vent. Rate : 69 BPM Atrial Rate : 69 BPM P-R Int : 184 ms QRS Dur : 90 ms QT Int : 480 ms P-R-T Axes : 59 -61 -84 degrees QTcB Int : 514 ms Normal sinus rhythm Left axis deviation Anteroseptal infarct (cited on or before 11-Oct-2023) Marked T wave abnormality, consider inferolateral ischemia Prolonged QT Abnormal ECG When compared with ECG of 29-Jun-2024 07:41, (Unconfirmed) T wave inversion more evident in Inferior leads T wave inversion now evident in Anterolateral leads QT has lengthened Confirmed by MUKESH CARDOZO MD ([id number]) on 07/01/2024 12:48:15 AM Referred By: Electronically Signed By: MUKESH CARDOZO MD Transcribed By: MUS Signed By Mukesh Cardozo MD 0 07/01/24 0048 Normal [facility]LY [facility], [facility]1983 echo transthoracicon FORMER[facility], [facility]1983 echo transthoracic [facility] [place] [address] Echocardiogram Signed Patient: Heidi Palmer MR#: [id number] 13 : 1940 Acct:[id number] Age/Sex: 84 / F ADM Date: 06/29/24 Loc: Room: [address] [place] [address] Type: DIS IN Attending Dr: Roberto Carlos Mcdermott DO Ordering Provider: Roberto Carlos Mcdermott DO Date of Service: 06/30/24 [facility], [facility], [facility] echo transthoracic: Anterior STEMI Copies to: MD Roberto Carlos Bueno DO BSA: 1.8 m2 BP: 101/54 mmHg HR: 79 Reason For Study: Anterior STEMI History: DM, Hypertension, CAD, Hyperlipidemia, Breast Ca, 7 stents Interpretation Summary The LV ejection fraction is 40 %. There is akinesis of the mid to distal anteroseptal wall apex and periapical segment A variety of Doppler measurements indicate impaired left ventricular relaxation, which is associated with grade I/IV or mild diastolic dysfunction. Trace aortic regurgitation. There is trace mitral regurgitation. There is mild tricuspid regurgitation. Right ventricular systolic pressure is elevated at 40-50mmHg. Right ventricular systolic pressure is consistent with mild to moderate pulmonary hypertension. There is no comparison study available. Procedure/Quality: A two-dimensional transthoracic echocardiogram with color flow, Doppler and injection of contrast agent Definity was performed. A two- dimensional transthoracic echocardiogram with color flow and Doppler was performed. The study was technically good in quality. Left Ventricle: The left ventricular size is normal. Upper septal hypertrophy (sigmoid septum), normal variant. The LV ejection fraction is 40 %. A variety of Doppler measurements indicate impaired left ventricular relaxation, which is associated with grade I/IV or mild diastolic dysfunction. There is akinesis of the mid to distal anteroseptal wall apex and periapical segment. Left Atrium: The left atrium appears normal in size. The atrial septum appears normal. Right Atrium: The right atrium appears normal in size. Right Ventricle: The right ventricular size, thickness and function are normal. Aortic Valve: The aortic valve is normal in structure and function. Trace aortic regurgitation. Mitral Valve: The mitral valve is mildly sclerotic. There is trace mitral regurgitation. Tricuspid Valve: The tricuspid valve is normal in structure and function. There is mild tricuspid regurgitation. Right ventricular systolic pressure is elevated at 40-50mmHg. Right ventricular systolic pressure is consistent with mild to moderate pulmonary hypertension. Pulmonic Valve: The pulmonic valve is normal in structure and function. Arteries: The aortic root is normal size. Pericardium/Pleura: No pericardial effusion seen. There is no pleural effusion. IVC/Hepatic Veins: The inferior vena cava is normal in size, with a normal collapsibility index. Measurements with Normals IVSd: 1.2 cm (0.7-1.1 cm)LVIDd: 4.3 cm (3.7-5.4 cm) LVPWd: 0.97 cm (0.7-1.1 cm)LVIDs: 3.2 cm (2.3-3.6 cm) LA dimension: 4.0 cm (2.3-4.0 cm)Ao root diam: 2.8 cm(2.0-3.6 cm) asc Aorta Diam: 3.2 cm(2.1-3.4cm) Doppler with Normals RVSP(TR): 44.4 mmHg (18-35mmHg) LV V1 max: 99.4 cm/sec (0.7-1.7m/s)MV E max manuel: 128.0 cm/sec(0.8-1.3m/s) MV A max manuel: 128.0 cm/sec(0.0-0.0m/s) MV E/A: 1.0 (<1.5) MMode/2D Measurements Calculations RVDd: 2.2 cm FS: 24.9 % Ao root area: LVOT diam: 2.1 cm TAPSE: 1.9 cm EDV(Teich): 6.2 cm2 LVOT area: 3.4 cm2 82.8 ml ESV(Teich): 41.7 ml EF(Teich): 49.6 % __ LVLd ap4: 7.5 cm SV(MOD-sp4): LAV(MOD-sp4): LA A2 area: 18.8 cm2 EDV(MOD-sp4): 44.6 ml 57.4 ml 90.3 ml LAV(MOD-sp2): LA A4 area: 19.4 cm2 LVLs ap4: 6.6 cm 52.1 ml LA length (vol): ESV(MOD-sp4): 5.3 cm 45.8 ml LA vol: 58.4 ml EF(MOD-sp4): LA vol index: 49.4 % 33.2 ml/m2 Doppler Measurements Calculations MV dec time: MV V2 max: E/E' lat: 25.0 Ao V2 max: 0.24 sec 154.6 cm/sec E/E' med: 45.1 161.0 cm/sec MV max P.6 mmHg Ao max PG: MV V2 mean: 10.4 mmHg 83.9 cm/sec Ao mean PG: MV mean P.0 mmHg 3.5 mmHg Ao V2 mean: MV V2 VTI: 41.0 cm 112.0 cm/sec Ao V2 VTI: 33.3 cm MVA(VTI): 1.7 cm2 DARRION(I,D): 2.1 cm2 DARRION(V,D): 2.1 cm2 __ LV V1 max PG: TV max PG: TR max manuel: 4.0 mmHg 41.0 mmHg 321.7 cm/sec LV V1 mean PG: TR max P.0 mmHg 41.4 mmHg LV V1 mean: RAP systole: 66.9 cm/sec 3.0 mmHg LV V1 VTI: 20.6 cm Transcribed By: REN Performed At: 06/30/24 0853 Signed By: Mukesh Cardozo MD 06/30/24 1509 Normal [facility] Eosinophils Auto (Bld) [#/Vo l]Ordered By: Roberto Carlos Mcdermott on 06-30-2024 Eosinophils (Bld) [#/Vol] N/A [facility] Eosinophils/100 WBC Auto (Bl d)Ordered By: Roberto Carlos Mcdermott on 06-30-2024 Eosinophils/100 WBC (Bld) N/A [facility] Eosinophils/100 leukocytes i n Blood by Manual countOrdered By: Roberto Carlos Mcdermott on 06-30-2024 Eosinophils/100 WBC (Bld) 6 % High 1-3 [facility] Comment on above: Performed By: #### B MP, DIFF CBC #### [facility] [address] [place] [address] [place] Erythrocyte distribution wid th [Ratio] by Automated countOrdered By: Roberto Carlos Mcdermott on 06-30-2024 Erythrocyte distribution width (RBC) [Ratio] 13.9 % Normal 11.9-15.3 [facility] Comment on above: Performed By: #### B MP, DIFF CBC #### [facility] [address] [place] [address] [place] Erythrocytes [#/volume] in B lood by Automated countOrdered By: Roberto Carlos Mcdermott on 06-30-2024 RBC (Bld) [#/Vol] 4.62 10*6/uL Normal 3.60-5.00 [facility] Comment on above: Performed By: #### B MP, DIFF CBC #### [facility] [address] [place] [address] [place] Glucose [Mass/volume] in Ser um or PlasmaOrdered By: Roberto Carlos Mcdermott on 06-30-2024 Glucose [Mass/Vol] 173 mg/dL High 70-100 [facility] Comment on above: ADA recommended refe rence rangeRandom Glucose Reference Range is dependent on time and content of last meal. Glucose of more than 200 mg/dL in a nonstressed, ambulatory subject supports the diagnosis of Diabetes Mellitus. Result Comment: [place] om Glucose Reference Range is dependent on time and content of last meal. Glucose of more than 200 mg/dL in a nonstressed, ambulatory subject supports the diagnosis of Diabetes Mellitus. ADA recommended reference range Performed By: #### B MP, DIFF CBC #### [address] Hematocrit [Volume Fraction] of Blood by Automated countOrdered By: Roberto Carlos Mcdermott on 06-30-2024 Hematocrit (Bld) [Volume fraction] 42.1 % Normal 34.0-46.4 [facility] Comment on above: Performed By: #### B MP, DIFF CBC #### [address] Hemoglobin [Mass/volume] in BloodOrdered By: Roberto Carlos Mcdermott on 06-30-2024 Hemoglobin (Bld) [Mass/Vol] 14.2 g/dL Normal 11.8-15.4 [facility] Comment on above: Performed By: #### B MP, DIFF CBC #### [address] Leukocytes [#/volume] correc seferino for nucleated erythrocytes in Blood by Automated counOrdered By: Roberto Carlos Mcdermott on 06-30-2024 WBC corrected for nucl RBC Auto (Bld) [#/Vol] 14.1 10*3/uL High 3.8-11.6 [facility] Leukocytes [#/volume] in Blo od by Automated countOrdered By: Roberto Carlos Mcdermott on 06-30-2024 WBC (Bld) [#/Vol] 14.1 10*3/uL High 3.8-11.6 [facility] Comment on above: Performed By: #### B MP, DIFF CBC #### [address] Lymphocytes Auto (Bld) [#/Vo l]Ordered By: Roberto Carlos Mcdermott on 06-30-2024 Lymphocytes (Bld) [#/Vol] N/A [facility] Lymphocytes/100 WBC Auto (Bl d)Ordered By: Roberto Carlos Mcdermott on 06-30-2024 Lymphocytes/100 WBC (Bld) N/A [facility] Lymphocytes/100 leukocytes i n Blood by Manual countOrdered By: Roberto Carlos Mcdermott on 06-30-2024 Lymphocytes/100 WBC (Bld) 9 % Low 18-42 [facility] Comment on above: Performed By: #### B MP, DIFF CBC #### [facility] [address] [place] [address] MCH [Entitic mass] by Automa seferino countOrdered By: Roberto Carlos Mcdermott on 06-30-2024 MCH (RBC) [Entitic mass] 30.7 pg Normal 24.7-34.3 [facility] Comment on above: Performed By: #### B MP, DIFF CBC #### [facility] [address] [place] [address] MCHC Auto (RBC) [Mass/Vol]Or dered By: Roberto Carlos Mcdermott on 06-30-2024 MCHC (RBC) [Mass/Vol] 33.7 g/dL 32.0-35.0 [facility] MCV [Entitic volume] by Auto mated countOrdered By: Roberto Carlos Mcdermott on 06-30-2024 MCV (RBC) [Entitic vol] 91.3 fL Normal 80-100 [facility] Comment on above: Performed By: #### B MP, DIFF CBC #### [facility] [address] [place] [address] Manual blood segmented neutr ophils/100 leukocytesOrdered By: Roberto Carlos Mcdermott on 06-30-2024 Segmented neutrophils/100 WBC (Bld) 68 % Normal 50-70 [facility] Comment on above: Performed By: #### B MP, DIFF CBC #### [facility] [address] [place] [address] Metamyelocytes/100 WBC Manua l cnt (Bld)Ordered By: Roberto Carlos Mcdermott on 06-30-2024 Metamyelocytes/100 WBC (Bld) 3 % High 0-0 [facility] Monocytes Auto (Bld) [#/Vol] Ordered By: Roberto Carols Mcdermott on 06-30-2024 Monocytes (Bld) [#/Vol] N/A [facility] Monocytes/100 WBC Auto (Bld) Ordered By: Roberto Carlos Mcdermott on 06-30-2024 Monocytes/100 WBC (Bld) N/A [facility] Monocytes/100 leukocytes in Blood by Manual countOrdered By: Roberto Carlos Mcdermott on 06-30-2024 Monocytes/100 WBC (Bld) 11 % Normal 2-11 [facility] Comment on above: Performed By: #### B MP, DIFF CBC #### [facility] [address] Neutrophils Auto (Bld) [#/Vo l]Ordered By: Roberto Carlos Mcdermott on 06-30-2024 Neutrophils (Bld) [#/Vol] N/A [facility] Neutrophils/100 WBC Auto (Bl d)Ordered By: Roberto Carlos Mcdermott on 06-30-2024 Neutrophils/100 WBC (Bld) N/A [facility] No Panel InformationOrdered By: Roberto Carlos Mcdermott on 06-30-2024 Estimated GFR (CKD-EPI) > 60.0 mL/Min [facility] Creatinine Clearance (Chem 46.26 [facility] Nucleated erythrocytes [Pres ence] in Blood by Automated countOrdered By: Roberto Carlos Mcdermott on 06-30-2024 Nucleated RBC Auto Ql (Bld) N/A [facility] Ovalocyte detectionOrdered B y: Roberto Carlos Mcdermott on 06-30-2024 Ovalocytes LM Ql (Bld) [facility] Peripheral white blood cell differential % bands, microscopic examOrdered By: Roberto Carlos Mcdermott on 06-30-2024 Band form neutrophils/100 WBC (Bld) 2 % Normal 0-5 [facility] Comment on above: Performed By: #### B MP, DIFF CBC #### [facility] [address] Platelet adequacy [Presence] in Blood by Light microscopyOrdered By: Roberto Carlos Mcdermott on 06-30-2024 Platelets LM Ql (Bld) Normal Normal Fir [facility] Platelet mean volume [Entiti c volume] in Blood by Automated countOrdered By: Roberto Carlos Mcdermott on 06-30-2024 Platelet mean volume (Bld) [Entitic vol] 8.2 fL Normal 6.3-10.7 [facility] Comment on above: Result Comment: PERF ORMED BY: [place] [address] PATHOLOGIST [employer] SALES CONSULTANT MELODY WHEELER M.D. Performed By: #### B MP, DIFF CBC #### [facility] [address] Platelet morphology finding [Identifier] in BloodOrdered By: Roberto Carlos Mcdermott on 06-30-2024 Platelet morphology finding Nom (Bld) Normal Normal [facility] Platelets [#/volume] in Bloo d by Automated countOrdered By: Roberto Carlos Mcdermott on 06-30-2024 Platelets (Bld) [#/Vol] 228 10*3/uL Normal 150-450 [facility] Comment on above: Performed By: #### B MP, DIFF CBC #### [facility] [address] Poikilocytosis [Presence] in Blood by Light microscopyOrdered By: Roberto Carlos Mcdermott on 06-30-2024 Poikilocytosis LM Ql (Bld) [facility] Potassium [Moles/volume] in Serum or PlasmaOrdered By: Roberto Carlos Mcdermott on 06-30-2024 Potassium [Moles/Vol] 4.4 mmol/L Normal 3.5-5.1 [facility] Comment on above: Performed By: #### B MP, DIFF CBC #### [address] RBC morphologyOrdered By: Roberto Carlos Mcdermott on 06-30-2024 RBC morphology finding Nom (Bld) N/A [facility] Schistocytes [Presence] in B lood by Light microscopyOrdered By: Roberto Carlos Mcdermott on 06-30-2024 Schistocytes LM Ql (Bld) [facility] Serum or plasma anion gap de terminationOrdered By: Roberto Carlos Mcdermott on 06-30-2024 Anion gap [Moles/Vol] 9.5 mmol/L Normal 6.0-15.0 [facility] Comment on above: Performed By: #### B MP, DIFF CBC #### [facility] [address] [place] [address] [place] Sodium [Moles/volume] in Ser um or PlasmaOrdered By: Roberto Carlos Mcdermott on 06-30-2024 Sodium [Moles/Vol] 132 mmol/L Low 136-145 [facility] Comment on above: Performed By: #### B MP, DIFF CBC #### [facility] [address] Urea nitrogen [Mass/volume] in Serum or PlasmaOrdered By: Roberto Carlos Mcdermott on 06-30-2024 Urea nitrogen [Mass/Vol] 13 mg/dL Normal 7-25 [facility] Comment on above: Performed By: #### B MP, DIFF CBC #### [facility] [address] [place] [address] [place] Variant lymphocytes/100 WBC Manual cnt (Bld)Ordered By: Roberto Carlos Mcdermott on 06-30-2024 Variant lymphocytes/100 WBC (Bld) 1 % 0-12 [facility] Basic Metabolic Panelon 06-09 Anion gap [Moles/Vol] 7.8 mmol/L Normal 6.0-15.0 [facility] Comment on above: Performed By: #### L IPID, CBC, BMP ####[facility] Calcium [Mass/Vol] 9.4 mg/dL Normal 8.6-10.3 [facility] Comment on above: Performed By: #### L IPID, CBC, BMP ####[facility] Chloride [Moles/Vol] 98 mmol/L Normal 98-107 [facility] Comment on above: Performed By: #### L IPID, CBC, BMP ####[place] [address] [address] CO2 [Moles/Vol] 28.7 mmol/L Normal 21.0-31.0 [facility] Comment on above: Performed By: #### L IPID, CBC, BMP ####[place] [id number] [place] [id number] [facility] Creatinine [Mass/Vol] 0.77 mg/dL Normal 0.60-1.20 [facility] Comment on above: Performed By: #### L IPID, CBC, BMP ####[place] [address] [place] [id number] [place] Creatinine Clr Calc Pharmacy 46.26 Normal [facility] Comment on above: Performed By: #### L IPID, CBC, BMP ####[address] GFR/1.73 sq M.predicted MDRD (S/P/Bld) [Vol rate/Area] mL/min/{1.73_m2} Normal [facility] Comment on above: Performed By: #### L IPID, CBC, BMP ####[address] Glucose [Mass/Vol] 251 mg/dL High 70-100 [facility] Comment on above: Result Comment: [facility] Glucose Reference Range is dependent on time and content of last meal. Glucose of more than 200 mg/dL in a nonstressed, ambulatory subject supports the diagnosis of Diabetes Mellitus. ADA recommended reference range Performed By: #### L IPID, CBC, BMP ####[address] Potassium [Moles/Vol] 5.5 mmol/L High 3.5-5.1 [facility] Comment on above: Performed By: #### L IPID, CBC, BMP ####[address] Sodium [Moles/Vol] 129 mmol/L Low 136-145 [facility] Comment on above: Performed By: #### L IPID, CBC, BMP ####[address] Urea nitrogen [Mass/Vol] 13 mg/dL Normal 7-25 [facility] Comment on above: Performed By: #### L IPID, CBC, BMP ####[place] [address] [place] Basophils Auto (Bld) [#/Vol] on 06-29-2024 Basophils (Bld) [#/Vol] 0.1 10 3/uL 0.0-0.1 [facility] Basophils/100 WBC Auto (Bld) on 06-29-2024 Basophils/100 WBC (Bld) 1.0 % 0.2-2.0 [facility] Cholesterol [Mass/volume] in Serum or PlasmaOrdered By: Roberto Carlos Mcdermott on 06-29-2024 Cholesterol [Mass/Vol] 167 mg/dL Normal 140-200 [facility] Comment on above: Chol less than 200 m g/dl low riskChol 201-239 mg/dl borderline riskChol 240 mg/dl and greater high risk Result Comment: Chol less than 200 mg/dl low risk Chol 201-239 mg/dl borderline risk Chol 240 mg/dl and greater high risk Performed By: #### L IPID, CBC, BMP ####[facility] [address] [place] [address] [place] Cholesterol in LDL Calc [Mas s/Vol]Ordered By: Roberto Carlos Mcdermott on 06-29-2024 Cholesterol in LDL [Mass/Vol] 101 mg/dL High 0-100 [facility] Comment on above: LDL ATP III CLASSIFI CATIONLDL less than 100 mg/dL OptimalLDL 100-129 mg/dL Near or above optimalLDL 130-159 mg/dL Borderline highLDL 160-189 mg/dL HighLDL greater than 189 mg/dL Very high Cholesterol in VLDL Calc [Ma ss/Vol]Ordered By: Roberto Carlos Mcdermott on 06-29-2024 Cholesterol in VLDL [Mass/Vol] 19 mg/dL [facility] Complete Blood Count Auto Di ffon 06-29-2024 Basophils (Bld) [#/Vol] 0.1 10*3/uL Normal 0.0-0.2 [facility] Comment on above: Result Comment: PERF ORMED BY: [facility] [address] [place] [address] PATHOLOGIST [employer] SALES CONSULTANT MELODY WHEELER M.D. Performed By: #### L IPID, CBC, BMP ####[facility] [place] [address] [place] Basophils/100 WBC (Bld) 0.8 % Normal . [facility] Comment on above: Performed By: #### L IPID, CBC, BMP ####[facility] [address] [place] [address] [place] Eosinophils (Bld) [#/Vol] 0.1 10*3/uL Normal 0.0-0.45 [facility] Comment on above: Performed By: #### L IPID, CBC, BMP ####[address] Eosinophils/100 WBC (Bld) 0.5 % Normal . [facility] Comment on above: Performed By: #### L IPID, CBC, BMP ####[address] Erythrocyte distribution width (RBC) [Ratio] 13.9 % Normal 11.9-15.3 [facility] Comment on above: Performed By: #### L IPID, CBC, BMP ####[address] Hematocrit (Bld) [Volume fraction] 41.1 % Normal 34.0-46.4 [facility] Comment on above: Performed By: #### L IPID, CBC, BMP ####[address] Hemoglobin (Bld) [Mass/Vol] 13.7 g/dL Normal 11.8-15.4 [facility] Comment on above: Performed By: #### L IPID, CBC, BMP ####[address] Lymphocytes (Bld) [#/Vol] 2.1 10*3/uL Normal 1.00-4.8 [facility] Comment on above: Performed By: #### L IPID, CBC, BMP ####[address] Lymphocytes/100 WBC (Bld) 15.0 % Normal . [facility] Comment on above: Performed By: #### L IPID, CBC, BMP ####[address] MCH (RBC) [Entitic mass] 30.5 pg Normal 24.7-34.3 [facility] Comment on above: Performed By: #### L IPID, CBC, BMP ####[address] MCV (RBC) [Entitic vol] 91.3 fL Normal 80-100 [facility] Comment on above: Performed By: #### L IPID, CBC, BMP ####[address] Mean Corpuscular HGB Conc 33.4 g/dL Normal 32.0-35.0 [facility] Comment on above: Performed By: #### L IPID, CBC, BMP ####[address] Monocytes (Bld) [#/Vol] 0.9 10*3/uL High 0.0-0.8 [facility] Comment on above: Performed By: #### L IPID, CBC, BMP ####[address] Monocytes/100 WBC (Bld) 6.6 % Normal . [facility] Comment on above: Performed By: #### L IPID, CBC, BMP ####[address] Neutrophils (Bld) [#/Vol] 10.7 10*3/uL High 1.8-7.7 [facility] Comment on above: Performed By: #### L IPID, CBC, BMP ####[address] Neutrophils/100 WBC (Bld) 77.1 % Normal . [facility] Comment on above: Performed By: #### L IPID, CBC, BMP ####[place] [id number] [facility] NRBC% 0.1 /100{WBC} Normal 0-0.5 [facility] Comment on above: Performed By: #### L IPID, CBC, BMP ####[address] Platelet mean volume (Bld) [Entitic vol] 8.2 fL Normal 6.3-10.7 [facility] Comment on above: Performed By: #### L IPID, CBC, BMP ####[facility] [place] [address] [facility] Platelets (Bld) [#/Vol] 266 10*3/uL Normal 150-450 [facility] Comment on above: Performed By: #### L IPID, CBC, BMP ####[facility] [place] [address] [facility] RBC (Bld) [#/Vol] 4.50 10*6/uL Normal 3.60-5.00 [facility] Comment on above: Performed By: #### L IPID, CBC, BMP ####[facility] [place] [address] [facility] WBC (Bld) [#/Vol] 13.9 10*3/uL High 3.8-11.6 [facility] Comment on above: Performed By: #### L IPID, CBC, BMP ####[facility] [place] [address] [facility] ECG 12 lead ECGon 06-29-2024 ECG 12 lead ECG [facility] [address] [place] [address] [place] [address] Electrocardiograph Report Signed Patient: Heidi Palmer MR#: [id number] 13 : 1940 Acct:[id number] Age/Sex: 84 / F ADM Date: 06/29/24 Loc: Room: [address] [place] [address] Type: DIS IN Attending Dr: Roberto Carlos Mcdermott DO Ordering Provider: Roberto Carlos Mcdermott DO Date of Service: 06/29/24 ECG/ECG 12 lead ECG: Anterior STEMI Copies to: Test Reason : Blood Pressure : 112/56 mmHG Vent. 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) Abnormal ECG When compared with ECG of 21-Dec-2023 07:29, Left anterior fascicular block is now present new finding of antro-septal Mi T wave inversion now evident in Inferior leads Nonspecific T wave abnormality now evident in Anterior leads Confirmed by MUKESH CARDOZO MD ([id number]) on 07/01/2024 12:47:44 AM Referred By: Electronically Signed By: MUKESH CARDOZO MD Transcribed By: MUS Signed By Mukesh Cardozo MD 0 07/01/24 0047 Normal [facility] Eosinophils/100 WBC Auto (Bl d)on 06-29-2024 Eosinophils/100 WBC (Bld) 1.3 % 0.9-7.0 [facility] Erythrocyte distribution wid th Auto (RBC) [Ratio]on 06-29-2024 Erythrocyte distribution width (RBC) [Ratio] 13.0 % 11.0-15.0 [facility] Estimated glomerular filtrat ion rate (GFR) non- Americanon 06-29-2024 GFR/1.73 sq M.predicted among non-blacks MDRD (S/P/Bld) [Vol rate/Area] mL/min/{1.73_m2} >=60 [facility] Hematocrit Auto (Bld) [Volum e fraction]on 06-29-2024 Hematocrit (Bld) [Volume fraction] 47.3 % 36.0-48.0 [facility] Hemoglobin [Mass/volume] in Bloodon 06-29-2024 Hemoglobin (Bld) [Mass/Vol] 16.0 g/dL 12.0-16.0 [facility] Laboratory - Chemistry and C hemistry - challengeon 06-29-2024 Calcium [Mass/Vol] 10.2 mg/dL High 8.5-10.1 [facility] Chloride [Moles/Vol] 99 mmol/L 98-107 [facility] CO2 [Moles/Vol] 31.9 mmol/L 21.0-32.0 [facility] Creatinine [Mass/Vol] 0.83 mg/dL 0.55-1.02 [facility] GFR/1.73 sq M.predicted MDRD (S/P/Bld) [Vol rate/Area] mL/min/{1.73_m2} >=60 [facility] Glucose [Mass/Vol] 222 mg/dL High 74-106 [facility] Potassium [Moles/Vol] 4.3 mmol/L 3.5-5.1 [facility] Sodium [Moles/Vol] 137 mmol/L 136-145 [facility] Urea nitrogen [Mass/Vol] 12.0 mg/dL 7.0-18.0 [facility] Urea nitrogen/Creatinine [Mass ratio] 14.5 mg/mg [facility] - Hematology and Cell countson 06-29-2024 Immature granulocytes/100 WBC (Bld) 0.7 % High 0.0-0.5 [facility] Leukocytes [#/volume] correc seferino for nucleated erythrocytes in Blood by Automated counon 06-29-2024 WBC corrected for nucl RBC Auto (Bld) [#/Vol] 12.1 10 3/uL High 4.0-11.0 [facility] Lipid Panelon 06-29-2024 LDL Cholesterol,Calculated 101 mg/dL High 0-100 [facility] Comment on above: Result Comment: LDL ATP III CLASSIFICATION LDL less than 100 mg/dL Optimal LDL 100-129 mg/dL Near or above optimal LDL 130-159 mg/dL Borderline high LDL 160-189 mg/dL High LDL greater than 189 mg/dL Very high Performed By: #### L IPID, CBC, BMP ####[place] [address] [address] Triglyceride w/Reflex 97 mg/dL Normal 0-149 [facility] Comment on above: Result Comment: TRIG ATP III CLASSIFICATION TRIG less than 150 mg/dL Normal TRIG 150-199 mg/dL Borderline high TRIG 200-500 mg/dL High TRIG greater than 500 mg/dL Very high Standard traceable to the Center for Disease Conrtrol and Prevention (CDC) test method. Performed By: #### L IPID, CBC, BMP ####[facility] [place] [id number] [facility] VLDL CHOLESTEROL 19 mg/dL Normal [facility] Comment on above: Performed By: #### L IPID, CBC, BMP ####[facility] [place] [id number] [facility] Lymphocytes Auto (Bld) [#/Vo l]on 06-29-2024 Lymphocytes (Bld) [#/Vol] 4.4 10 3/uL High 1.2-3.8 [facility] Lymphocytes/100 WBC Auto (Bl d)on 06-29-2024 Lymphocytes/100 WBC (Bld) 36.0 % 20.5-60.0 [facility] MCH Auto (RBC) [Entitic mass ]on 06-29-2024 MCH (RBC) [Entitic mass] 30.8 pg 26.7-34.0 [facility] MCHC Auto (RBC) [Mass/Vol]on 06-29-2024 MCHC (RBC) [Mass/Vol] 33.8 g/dL 29.9-35.2 [facility] MCV Auto (RBC) [Entitic vol] on 06-29-2024 MCV (RBC) [Entitic vol] 91.0 fL 81.0-99.0 [facility] Monocytes Auto (Bld) [#/Vol] on 06-29-2024 Monocytes (Bld) [#/Vol] 1.4 10 3/uL High 0.3-0.8 [facility] Monocytes/100 WBC Auto (Bld) on 06-29-2024 Monocytes/100 WBC (Bld) 11.4 % 1.7-12.0 [facility] Neutrophils Auto (Bld) [#/Vo l]on 06-29-2024 Neutrophils (Bld) [#/Vol] 6.0 10 3/uL 1.4-6.5 [facility] Neutrophils/100 WBC Auto (Bl d)on 06-29-2024 Neutrophils/100 WBC (Bld) 49.6 % 43.0-75.0 [facility] No Panel Informationon 06-29 Eosinophils # (Auto) 0.2 10 3/uL 0.0-0.7 [facility] Immature Granulocyte # (Auto) 0.08 10 3/uL High 0.00-0.03 [facility] Troponin I High Sensitivity 48.1 pg/mL 4.0-51.3 [facility] Comment on above: CUT-OFF POINTS HAVE BEEN [...] volume (Bld) [Entitic vol] 9.8 fL 9.5-13.5 [facility] Platelets Auto (Bld) [#/Vol] on 06-29-2024 Platelets (Bld) [#/Vol] 307 10 3/uL 150-450 [facility] RBC Auto (Bld) [#/Vol]on RBC (Bld) [#/Vol] 5.20 10 6/uL 4.20-5.40 [facility] Serum or plasma anion gap de terminationon 06-29-2024 Anion gap [Moles/Vol] 10.4 mmol/L [facility] Serum or plasma high density lipoprotein (HDL) cholesterol measurementOrdered By: Roberto Carlos Mcdermott on 06-29-2024 Cholesterol in HDL [Mass/Vol] 47 mg/dL Normal 23-92 [facility] Comment on above: HDL CHOL ATP-III CLA SSIFICATION Cardiovascular RiskHDL > or equal to 60 mg/dL LOWHDL < 40 mg/dL HIGH Result Comment: HDL CHOL ATP-III CLASSIFICATION Cardiovascular Risk HDL > or equal to 60 mg/dL LOW HDL < 40 mg/dL HIGH Performed By: #### L IPID, CBC, BMP ####[facility] [address] Serum or plasma total choles terol/high density lipoprotein (HDL) cholesterol mass ratOrdered By: Roberto Carlos Mcdermott on 06-29-2024 Cholesterol.total/Consuelo sterol in HDL [Mass ratio] 3.6 {ratio} Normal <5.0 [facility] Comment on above: Result Comment: PERF ORMED BY: [facility] [address] [place] [id number] PATHOLOGIST MEDIA SALES CONSULTANT MELODY WHEELER M.D. Performed By: #### L IPID, CBC, BMP ####[address] Triglyceride [Mass/volume] i n Serum or PlasmaOrdered By: Roberto Carlos Mcdermott on 06-29-2024 Triglyceride [Mass/Vol] 97 mg/dL 0-149 [facility] Comment on above: TRIG ATP III CLASSIF ICATIONTRIG less than 150 mg/dL NormalTRIG 150-199 mg/dL Borderline highTRIG 200-500 mg/dL High TRIG greater than 500 mg/dL Very highStandard traceable to the Center for Disease Conrtrol and Prevention (CDC) test method. Troponin I High Sensitivityo n 06-29-2024 Troponin I High Sensitivity 22956.3 pg/mL Off scale high 0.0-15.0 [facility] Comment on above: Order Comment: [facility] ed last draw was at 1228 Result Comment: Crit ical Result : Called to and read back by: ИРИНА [place] at: 06/29/2024 15:50:19 by:CHRISTOPHER PERFORMED BY: [place] [phone] PATHOLOGIST MEDIA SALES CONSULTANT MELODY WHEELER M.D. Performed By: #### H S TROP #### [address] Troponin I High Sensitivity 34853.0 pg/mL Off scale high 0.0-15.0 [facility] Comment on above: Result Comment: Crit ical Result : Called to and read back by: ИРИНА [place] at: 06/29/2024 10:55:36 by:RG PERFORMED BY: [place] [phone] PATHOLOGIST MEDIA SALES CONSULTANT MELODY WHEELER M.D. Performed By: #### H S TROP ####[address] Troponin I High Sensitivity 8507.8 pg/mL Off scale high 0.0-15.0 [facility] Comment on above: Result Comment: Crit ical Result : Called to and read back by: ИРИНА [place] at: 06/29/2024 08:05:28 by:JOHN PERFORMED BY: [place] [address] PATHOLOGIST MEDIA SALES CONSULTANT MELODY WHEELER M.D. Performed By: #### H S TROP #### [facility] [address] [place] [address] Troponin I High Sensitivity 6774.1 pg/mL Off scale high 0.0-15.0 [facility] Comment on above: Result Comment: Crit ical Result : Called to and read back by: DEBRA GALE at: 06/29/2024 06:36:22 by:JOHN PERFORMED BY: [place] [address] PATHOLOGIST MEDIA SALES CONSULTANT MELODY WHEELER M.D. Performed By: #### H S TROP #### [address] Troponin I.cardiac [Mass/vol ume] in Serum or Plasma by Detection limit <= 0.01 ng/Ordered By: Roberto Carlos Mcdermott on 06-29-2024 Troponin I.cardiac DL <= 0.01 ng/mL [Mass/Vol] 94518.3 pg/mL High 0.0-15.0 [facility] Comment on above: Critical Result : Ca lled to and read back by: ИРИНА [place] at: 06/29/2024 15:50:19 by:CHRISTOPHER CT chest wo conon 06-07-2024 CT chest wo [facility] [place] [address] CT Scan Report Signed Patient: Heidi Palmer MR#: [id number] 13 : 1940 Acct:[id number] Age/Sex: 84 / F ADM Date: 06/07/24 Loc: Room: Type: [facility] Attending Dr: Tosha Patel MD [...] Benson Jr., DCharuOCharu06/07/2024 1:36 PM Dictation Location: [place] [address] Transcribed By: [facility] 06/07/24 1336 Dictated By: Anthony Benson Jr, DO 06/07/24 1325 Signed By: 06/07/24 1336 Normal [facility] HbA1c HPLC (Bld) [Mass fract ion]on 06-07-2024 HbA1c (Bld) [Mass fraction] 9.5 % [facility] No Panel Informationon 06-07 Bedside Glucose 148 [facility] HbA1c HPLC (Bld) [Mass fract ion]on 03-07-2024 HbA1c (Bld) [Mass fraction] 9.3 % [facility] No Panel Informationon 03-07 Bedside Glucose 230 [facility] No Panel Informationon 01-16 Bedside Glucose 146 [facility] Atypical perinuclear antineu trophil cytoplasmic antibodies measurementOrdered By: Tosha Patel on 11-24-2023 Neutrophil cytoplasmic Ab.perinuclear.atypical IF (S) [Titer] <1:20 titer Neg:<1:20 [facility] Comment on above: The atypical pANCA p attern has been observed in asignificant percentage of patients with ulcerative colitis,primary sclerosing cholangitis and autoimmune hepatitis.Performed at: - [facility] [address] [id number] Director: Jarod [place] MD, Phone: [phone] at: - [facility] [address] [id number] Director: José Manuel Petersen PhD, Phone: [phone] Glucose Glucometer ([facility]) [M ass/Vol]Ordered By: Tosha Patel on 11-24-2023 Glucose [Mass/Vol] 82 mg/dL [facility] Comment on above: Random Glucose Refer ence Range is dependent on time and content of last meal. Glucose of more than 200 mg/dL in a nonstressed, ambulatory subject supports the diagnosis of Diabetes Mellitus. Glucose [Mass/Vol] Capillary blood gluc ose measurement by glucometer (mass/volume) [facility] Comment on above: Random Glucose Refer ence Range is dependent on time and content of last meal. Glucose of more than 200 mg/dL in a nonstressed, ambulatory subject supports the diagnosis of Diabetes Mellitus. Myeloperoxidase Ab [Units/vo lume] in Serum by ImmunoassayOrdered By: Tosha Barrientos on 11-24-2023 Myeloperoxidase Ab IA Qn (S) <0.2 units 0.0-0.9 [facility] Myeloperoxidase Ab IA Qn (S) Myeloperoxidase Ab [Units/volume] in Serum by Immunoassay 0.0-0.9 [facility] Neutrophil cytoplasmic Ab.pe rinuclear.atypical [Titer] in Serum by ImmunofluorescenceOrdered By: Tosha Patel on 11-24-2023 Neutrophil cytoplasmic Ab.perinuclear.atypical IF (S) [Titer] Neutrophil cytoplasmic Ab.perinuclear.atypical [Titer] in Serum by Immunofluorescence Neg:<1:20 [facility] Comment on above: The atypical pANCA p attern has been observed in asignificant percentage of patients with ulcerative colitis,primary sclerosing cholangitis and autoimmune hepatitis.Performed at: [facility] [employer] [id number] Director: Jarod Rush MD, Phone: [phone] at: [facility] [employer] [id number] Director: José Manuel Petersen PhD, Phone: [phone] No Panel InformationOrdered By: Tosha Patel on 11-24-2023 Perinuclear ANCA (p-ANCA) Antibody <1:20 titer Neg:<1:20 [facility] Comment on above: The presence of posi tive fluorescence exhibiting P-ANCA orC-ANCA patterns alone is not specific for the diagnosis ofWegener's Granulomatosis (WG) or microscopic polyangiitis.Decisions about treatment should not be based solely onANCA IFA results. The International ANCA Group Consensusrecommends follow up testing of positive sera with both VT-3 and MPO-ANCA enzyme immunoassays. As many as 5% serumsamples are positive only by EIA. Ref. AM J Clin [id number];111:507-513. Proteinase 3 Ab [Units/volum e] in Serum by ImmunoassayOrdered By: Tosha Patel on 11-24-2023 Proteinase 3 Ab IA Qn (S) <0.2 units 0.0-0.9 [facility] Proteinase 3 Ab IA Qn (S) Proteinase 3 Ab [Units/volume] in Serum by Immunoassay 0.0-0.9 [facility] Serum angiotensin converting enzyme (SONIYA) measurementOrdered By: Tosha Patel on 11-24-2023 Angiotensin converting enzyme [Catalytic activity/Vol] 50 U/L [facility] Comment on above: Performed at: [facility] [address] [id number] Director: José Manuel Petersen PhD, Phone: [phone] Angiotensin converting enzyme [Catalytic activity/Vol] Serum angiotensin converting enzyme (SONIYA) measurement [facility] Comment on above: Performed at: [facility] [address] [id number] Director: José Manuel Petersen PhD, Phone: [phone] Serum classic neutrophil cyt oplasmic antibody titer by immunofluorescenceOrdered By: Tosha Patel on 11-24-2023 Neutrophil cytoplasmic Ab.classic IF (S) [Titer] <1:20 titer Neg:<1:20 [facility] Neutrophil cytoplasmic Ab.classic IF (S) [Titer] Serum classic neutrophil cytoplasmic antibody titer by immunofluorescence Neg:<1:20 [facility] Serum homogeneous pattern an tinuclear antibody (ANDREIA) titerOrdered By: Tosha Barrientos on 11-24-2023 Homogenous nuclear Ab pattern (S) [Titer] N/A [facility] Homogenous nuclear Ab pattern (S) [Titer] Serum homogeneous pattern antinuclear antibody (ANDREIA) titer [facility] Serum nuclear antibody titer Ordered By: Tosha Patel on 11-24-2023 Nuclear Ab (S) [Titer] Negative . [facility] Comment on above: Negative <1:80 Borde rline 1:80 Positive >1:80ICAP nomenclature: AC-0For more information about Hep-2 cell patterns useANApatterns.org, the official website for theInternational Consensus on Antinuclear Antibody (ANDREIA)Patterns (ICAP).Performed at: [facility] [address] [id number] Director: José Manuel Petersen PhD, Phone: [phone] Nuclear Ab (S) [Titer] Serum nuclear ant ibody titer . [facility] Comment on above: Negative <1:80 Borde rline 1:80 Positive >1:80ICAP nomenclature: AC-0For more information about Hep-2 cell patterns useANApatterns.org, the official website for theInternational Consensus on Antinuclear Antibody (ANDREIA)Patterns (ICAP).Performed at: [facility] [address] [id number] Director: José Manuel Petersen PhD, Phone: [phone] Serum or plasma rheumatoid f actor measurement (units/volume)Ordered By: Tosha Patel on 11-24-2023 Rheumatoid factor Qn [IU]/mL <14.0 [facility] Comment on above: Performed at: [facility] [address] [place], [place] [id number] Director: José Manuel Petersen PhD, Phone: [phone] Rheumatoid factor Qn Serum or plasma rheumatoid factor measurement (units/volume) <14.0 [facility] Comment on above: Performed at: [facility] [place], [place] [id number] Director: José Manuel Petersen PhD, Phone: [phone] A1C HEMOGLOBINon 11-18-2023 HbA1c (Bld) [Mass fraction] 9.8 % [employer] Other Glucose - FINGER STICKon Glucose [Mass/Vol] 116 mg/dL [employer] Other HbA1c (Bld) [Mass fraction]o n 11-18-2023 A1C HEMOGLOBIN [facility] [employer] Other Glucose Glucometer (BldC) [M ass/Vol]Ordered By: Anthony Alaniz on 11-03-2023 Glucose [Mass/Vol] 131 mg/dL [facility] Comment on above: Random Glucose Refer ence Range is dependent on time and content of last meal. Glucose of more than 200 mg/dL in a nonstressed, ambulatory subject supports the diagnosis of Diabetes Mellitus. Automated erythrocytes count in urine sediment (number/area)Ordered By: Irma Duran on 11-02-2023 RBC Auto (Urine sed) [#/Area] 0-1 [HPF] 0-4 [facility] Automated leukocytes count i n urine sediment (number/area)Ordered By: Irma Duran on 11-02-2023 WBC Auto (Urine sed) [#/Area] 5-9 [HPF] 0-4 [facility] Basophils Auto (Bld) [#/Vol] Ordered By: Irma Duran on 11-02-2023 Basophils (Bld) [#/Vol] 0.0 10*3/uL 0.0-0.2 [facility] Basophils/100 WBC Auto (Bld) Ordered By: Irma Duran on 11-02-2023 Basophils/100 WBC (Bld) 0.6 % . [facility] Bilirubin Test strip Ql (U)O rdered By: Irma Duran on 11-02-2023 Bilirubin Ql (U) Negative Negative [facility] Calcium [Mass/volume] in Ser um or PlasmaOrdered By: Irma Duran on 11-02-2023 Calcium [Mass/Vol] 8.6 mg/dL 8.6-10.3 [facility] Carbon dioxide, total [Moles /volume] in Serum or PlasmaOrdered By: Irma Duran on 11-02-2023 CO2 [Moles/Vol] 24.3 mmol/L 21.0-31.0 [facility] Chloride [Moles/volume] in S cedric or PlasmaOrdered By: Irma Duran on 11-02-2023 Chloride [Moles/Vol] 104 mmol/L 98-107 [facility] Color Auto (U)Ordered By: Tae Duran on 11-02-2023 Color (U) Yellow Yellow [facility] Creatinine [Mass/volume] in Serum or PlasmaOrdered By: Irma Duran on 11-02-2023 Creatinine [Mass/Vol] 0.63 mg/dL 0.60-1.20 [facility] Eosinophils Auto (Bld) [#/Vo l]Ordered By: Irma Duran on 11-02-2023 Eosinophils (Bld) [#/Vol] 0.0 10*3/uL 0.0-0.45 [facility] Eosinophils/100 WBC Auto (Bl d)Ordered By: Irma Duran on 11-02-2023 Eosinophils/100 WBC (Bld) 0.4 % . [facility] Erythrocyte distribution wid th Auto (RBC) [Ratio]Ordered By: Irma Duran on 11-02-2023 Erythrocyte distribution width (RBC) [Ratio] 15.6 % 11.9-15.3 [facility] Glucose [Mass/volume] in Ser um or PlasmaOrdered By: Irma Duran on 11-02-2023 Glucose [Mass/Vol] 186 mg/dL 70-100 [facility] Comment on above: ADA recommended refe rence rangeRandom Glucose Reference Range is dependent on time and content of last meal. Glucose of more than 200 mg/dL in a nonstressed, ambulatory subject supports the diagnosis of Diabetes Mellitus. Hematocrit Auto (Bld) [Volum e fraction]Ordered By: Irma Duran on 11-02-2023 Hematocrit (Bld) [Volume fraction] 36.7 % 34.0-46.4 [facility] Hemoglobin [Mass/volume] in BloodOrdered By: Irma Duran on 11-02-2023 Hemoglobin (Bld) [Mass/Vol] 12.2 g/dL 11.8-15.4 [facility] Ketones Auto test strip (U) [Mass/Vol]Ordered By: Irma Duran on 11-02-2023 Ketones (U) [Mass/Vol] Trace Negative [facility] Laboratory - UrinalysisOrder ed By: Irma Duran on 11-02-2023 Hyaline casts LM Ql (Urine sed) 0-8 [LPF] 0-8 [facility] Leukocytes [#/volume] correc seferino for nucleated erythrocytes in Blood by Automated counOrdered By: Irma Duran on 11-02-2023 WBC corrected for nucl RBC Auto (Bld) [#/Vol] 5.2 10*3/uL 3.8-11.6 [facility] Lymphocytes Auto (Bld) [#/Vo l]Ordered By: Irma Duran on 11-02-2023 Lymphocytes (Bld) [#/Vol] 1.6 10*3/uL 1.00-4.8 [facility] Lymphocytes/100 WBC Auto (Bl d)Ordered By: Irma Duran on 11-02-2023 Lymphocytes/100 WBC (Bld) 29.8 % . [facility] MCH Auto (RBC) [Entitic mass ]Ordered By: Irma Duran on 11-02-2023 MCH (RBC) [Entitic mass] 30.5 pg 24.7-34.3 [facility] MCHC Auto (RBC) [Mass/Vol]Or dered By: Irma Duran on 11-02-2023 MCHC (RBC) [Mass/Vol] 33.2 g/dL 32.0-35.0 [facility] MCV Auto (RBC) [Entitic vol] Ordered By: Irma Duran on 11-02-2023 MCV (RBC) [Entitic vol] 91.8 fL 80-100 [facility] Monocytes Auto (Bld) [#/Vol] Ordered By: Irma Duran on 11-02-2023 Monocytes (Bld) [#/Vol] 0.6 10*3/uL 0.0-0.8 [facility] Monocytes/100 WBC Auto (Bld) Ordered By: Imra Duran on 11-02-2023 Monocytes/100 WBC (Bld) 11.5 % . [facility] Neutrophils Auto (Bld) [#/Vo l]Ordered By: Irma Duran on 11-02-2023 Neutrophils (Bld) [#/Vol] 3.0 10*3/uL 1.8-7.7 [facility] Neutrophils/100 WBC Auto (Bl d)Ordered By: Irma Duran on 11-02-2023 Neutrophils/100 WBC (Bld) 57.7 % . [facility] Nitrite Test strip Ql (U)Ord ered By: Irma Duran on 11-02-2023 Nitrite Ql (U) Negative Negative [facility] No Panel InformationOrdered By: Anthony Alaniz on 11-02-2023 Bedside Glucose Comment Glu2: cleaned meter [facility] No Panel InformationOrdered By: Irma Duran on 11-02-2023 Estimated GFR (CKD-EPI) > 60.0 mL/Min [facility] Creatinine Clearance (Chem 47.65 [facility] Nucleated erythrocytes [Pres ence] in Blood by Automated countOrdered By: Irma Duran on 11-02-2023 Nucleated RBC Auto Ql (Bld) 0.0 /100{WBC} 0-0.5 [facility] Platelet mean volume Auto (B ld) [Entitic vol]Ordered By: Irma Duran on 11-02-2023 Platelet mean volume (Bld) [Entitic vol] 8.3 fL 6.3-10.7 [facility] Platelets Auto (Bld) [#/Vol] Ordered By: rIma Duran on 11-02-2023 Platelets (Bld) [#/Vol] 252 10*3/uL 150-450 [facility] Potassium [Moles/volume] in Serum or PlasmaOrdered By: Irma Duran on 11-02-2023 Potassium [Moles/Vol] 4.1 mmol/L 3.5-5.1 [facility] Protein Auto test strip (U) [Mass/Vol]Ordered By: Irma Duran on 11-02-2023 Protein (U) [Mass/Vol] Negative Negative [facility] RBC Auto (Bld) [#/Vol]Ordere d By: Irma Duran on 11-02-2023 RBC (Bld) [#/Vol] 4.00 10*6/uL 3.60-5.00 [facility] Serum or plasma anion gap de terminationOrdered By: Irma Duran on 11-02-2023 Anion gap [Moles/Vol] 8.8 mmol/L 6.0-15.0 [facility] Sodium [Moles/volume] in Ser um or PlasmaOrdered By: Irma Duran on 11-02-2023 Sodium [Moles/Vol] 133 mmol/L 136-145 [facility] Specific gravity Auto test s trip (U) [Rel density]Ordered By: Irma Duran on 11-02-2023 Specific gravity (U) [Rel density] 1.010 1.001-1.03 0 [facility] Squamous epithelial cells de tection in urine sediment by light microscopyOrdered By: Irma Duran on 11-02-2023 Epithelial cells.squamous LM Ql (Urine sed) 0-1 [HPF] 0-2 [facility] Urea nitrogen [Mass/volume] in Serum or PlasmaOrdered By: Irma Duran on 11-02-2023 Urea nitrogen [Mass/Vol] 7 mg/dL 7-25 [facility] Urine bacteria detection by automated methodOrdered By: Irma Duran on 11-02-2023 Bacteria Auto Ql (U) None seen None Seen [facility] Urine clarity by refractomet ry automatedOrdered By: Irma Duran on 11-02-2023 Clarity Refractometry automated (U) Clear Clear [facility] Urine culture routineOrdered By: Irma Duran on 11-02-2023 Bacteria identified Cx Nom (U) 2 Days [facility] Urine glucose measurement by automated test strip (mass/volume)Ordered By: Irma Duran on 11-02-2023 Glucose Auto test strip (U) [Mass/Vol] Normal mg/dL Normal [facility] Urine hemoglobin detection b y automated test stripOrdered By: Irma Duran on 11-02-2023 Hemoglobin Auto test strip Ql (U) Negative Negative [facility] Urine leukocyte esterase det ection by automated test stripOrdered By: Irma Duran on 11-02-2023 Leukocyte esterase Auto test strip Ql (U) 2+ Negative [facility] Urobilinogen Auto test strip (U) [Mass/Vol]Ordered By: Irma Duran on 11-02-2023 Urobilinogen (U) [Mass/Vol] Normal mg/dL Normal [facility] WBC Auto (Bld) [#/Vol]Ordere d By: Irma Duran on 11-02-2023 WBC (Bld) [#/Vol] 5.2 10*3/uL 3.8-11.6 [facility] pH Auto test strip (U)Ordere d By: Irma Duran on 11-02-2023 pH (U) 7.5 [pH] 5.0-9.0 [facility] Band form neutrophils/100 WB C Manual cnt (Bld)Ordered By: Irma Duran on 10-28-2023 Band form neutrophils/100 WBC (Bld) 1 % 0-5 [facility] Basophils/100 WBC Manual cnt (Bld)Ordered By: Irma Duran on 10-28-2023 Basophils/100 WBC (Bld) 0 % 0-2 [facility] Eosinophils/100 WBC Manual c nt (Bld)Ordered By: Irma Duran on 10-28-2023 Eosinophils/100 WBC (Bld) 3 % 1-3 [facility] Hypochromia LM Ql (Bld)Order ed By: Irma Duran on 10-28-2023 Hypochromia Ql (Bld) Slight [facility] Lymphocytes/100 WBC Manual c nt (Bld)Ordered By: Irma Duran on 10-28-2023 Lymphocytes/100 WBC (Bld) 24 % 18-42 [facility] Metamyelocytes/100 WBC Manua l cnt (Bld)Ordered By: Irma Duran on 10-28-2023 Metamyelocytes/100 WBC (Bld) 4 % 0-0 [facility] Monocytes/100 WBC Manual cnt (Bld)Ordered By: Irma Duran on 10-28-2023 Monocytes/100 WBC (Bld) 11 % 2-11 [facility] Myelocytes/100 WBC Manual cn t (Bld)Ordered By: Irma Duran on 10-28-2023 Myelocytes/100 WBC (Bld) 1 % 0-0 [facility] Platelet adequacy [Presence] in Blood by Light microscopyOrdered By: Irma Duran on 10-28-2023 Platelets LM Ql (Bld) Normal Normal [facility] Platelet morphology finding [Identifier] in BloodOrdered By: Irma Duran on 10-28-2023 Platelet morphology finding Nom (Bld) Normal Normal [facility] RBC morphologyOrdered By: Tae Duran on 10-28-2023 RBC morphology finding Nom (Bld) N/A [facility] Rouleaux detectionOrdered By : Irma Duran on 10-28-2023 Rouleaux LM Ql (Bld) Slight [facility] Segmented neutrophils/100 WB C Manual cnt (Bld)Ordered By: Irma Duran on 10-28-2023 Segmented neutrophils/100 WBC (Bld) 56 % 50-70 [facility] COVID CepheidOrdered By: Hosea Alaniz on 10-27-2023 SARS-CoV-2 (COVID-19) Ab IA Ql Positive Negative [facility] Comment on above: This is a duplicate [employer] Xpert Xpress CoV-2/Flu/RSV Plus RNA by RT-PCR result to be used for statistical tracking purpose only. SARS-CoV-2 (COVID-19) RNA GARY+probe Ql (Unsp spec) [facility] Urine culture routineOrdered By: Irma Duran on 10-27-2023 Bacteria identified Cx Nom (U) 2 Days [facility] No Panel InformationOrdered By: Anthony Alaniz on 10-25-2023 Bedside Glucose #[address]/rn [facility] Anisocytosis LM Ql (Bld)Orde red By: Irma Duran on 10-22-2023 Anisocytosis Ql (Bld) Slight [facility] Donald cells [Presence] in Blo od by Light microscopyOrdered By: Irma Duran on 10-22-2023 [place] cells LM Ql (Bld) Slight [facility] Giant platelets/100 leukocyt es [Ratio] in Blood by Manual countOrdered By: Irma Duran on 10-22-2023 Giant platelets/100 WBC Manual cnt (Bld) [Ratio] 1 /100{WBC} [facility] Macrocytes LM Ql (Bld)Ordere d By: Irma Duran on 10-22-2023 Macrocytes Ql (Bld) Slight [facility] Microcytes LM Ql (Bld)Ordere d By: Irma Duran on 10-22-2023 Microcytes Ql (Bld) Slight [facility] Ovalocyte detectionOrdered B y: Irma Duran on 10-22-2023 Ovalocytes LM Ql (Bld) Slight [facility] Poikilocytosis [Presence] in Blood by Light microscopyOrdered By: Irma Duran on 10-22-2023 Poikilocytosis LM Ql (Bld) Slight [facility] Polychromasia [Presence] in Blood by Light microscopyOrdered By: Irma Duran on 10-22-2023 Polychromasia LM Ql (Bld) Slight [facility] Red blood cell stomatocyte d etectionOrdered By: Irma Duran on 10-22-2023 Stomatocytes LM Ql (Bld) Slight [facility] Alanine aminotransferase [En zymatic activity/volume] in Serum or PlasmaOrdered By: Anthony Alaniz on 10-16-2023 ALT [Catalytic activity/Vol] 6 U/L 7-52 [facility] Albumin [Mass/volume] in Ser um or Plasma by Bromocresol green (BCG) dye binding methoOrdered By: Anthony Alaniz on 10-16-2023 Albumin BCG dye [Mass/Vol] 2.6 g/dL 3.5-5.7 [facility] Alkaline phosphatase [Enzyma tic activity/volume] in Serum or PlasmaOrdered By: Anthony Alaniz on 10-16-2023 ALP [Catalytic activity/Vol] 50 U/L 34-104 [facility] Aspartate aminotransferase [ Enzymatic activity/volume] in Serum or PlasmaOrdered By: Anthony Alaniz on 10-16-2023 AST [Catalytic activity/Vol] 12 U/L 13-39 [facility] Bilirubin.total [Mass/volume ] in Serum or PlasmaOrdered By: Anthony Alaniz on 10-16-2023 Bilirubin [Mass/Vol] 0.7 mg/dL 0.3-1.0 [facility] Globulin Calc (S) [Mass/Vol] Ordered By: Anthony Alaniz on 10-16-2023 Globulin (S) [Mass/Vol] 2.2 g/dL [facility] Prealbumin [Mass/volume] in Serum or PlasmaOrdered By: nAthony Alaniz on 10-16-2023 Prealbumin [Mass/Vol] 9.8 mg/dL 17.0-34.0 [facility] Protein [Mass/volume] in Ser um or PlasmaOrdered By: Anthony Alaniz on 10-16-2023 Protein [Mass/Vol] 4.8 g/dL 6.4-8.9 [facility] Serum or plasma albumin/glob ulin mass ratioOrdered By: Anthony Alaniz on 10-16-2023 Albumin/Globulin [Mass ratio] 1.2 {ratio} [facility] Glucose Glucometer (BldC) [M ass/Vol]Ordered By: Chin Rodarte on 10-15-2023 Glucose [Mass/Vol] 263 mg/dL [facility] Comment on above: Random Glucose Refer ence Range is dependent on time and content of last meal. Glucose of more than 200 mg/dL in a nonstressed, ambulatory subject supports the diagnosis of Diabetes Mellitus. No Panel InformationOrdered By: Chin Rodarte on 10-15-2023 Bedside Glucose Comment Glu2: cleaned meter [facility] Basophils Auto (Bld) [#/Vol] Ordered By: Epi Booth on 10-14-2023 Basophils (Bld) [#/Vol] 0.1 10*3/uL 0.0-0.2 [facility] Basophils/100 WBC Auto (Bld) Ordered By: Epi Booth on 10-14-2023 Basophils/100 WBC (Bld) 0.5 % . [facility] Calcium [Mass/volume] in Ser um or PlasmaOrdered By: Epi Booth on 10-14-2023 Calcium [Mass/Vol] 8.9 mg/dL 8.6-10.3 [facility] Carbon dioxide, total [Moles /volume] in Serum or PlasmaOrdered By: Epi Booth on 10-14-2023 CO2 [Moles/Vol] 27.5 mmol/L 21.0-31.0 [facility] Chloride [Moles/volume] in S cedric or PlasmaOrdered By: Epi Booth on 10-14-2023 Chloride [Moles/Vol] 98 mmol/L 98-107 [facility] Creatinine [Mass/volume] in Serum or PlasmaOrdered By: Epi Booth on 10-14-2023 Creatinine [Mass/Vol] 0.66 mg/dL 0.60-1.20 [facility] Eosinophils Auto (Bld) [#/Vo l]Ordered By: Epi Booth on 10-14-2023 Eosinophils (Bld) [#/Vol] 0.0 10*3/uL 0.0-0.45 [facility] Eosinophils/100 WBC Auto (Bl d)Ordered By: Epi Booth on 10-14-2023 Eosinophils/100 WBC (Bld) 0.4 % . [facility] Erythrocyte distribution wid th Auto (RBC) [Ratio]Ordered By: Epi Booth on 10-14-2023 Erythrocyte distribution width (RBC) [Ratio] 13.9 % 11.9-15.3 [facility] Glucose [Mass/volume] in Ser um or PlasmaOrdered By: Epi Booth on 10-14-2023 Glucose [Mass/Vol] 242 mg/dL 70-100 [facility] Comment on above: ADA recommended refe rence rangeRandom Glucose Reference Range is dependent on time and content of last meal. Glucose of more than 200 mg/dL in a nonstressed, ambulatory subject supports the diagnosis of Diabetes Mellitus. Hematocrit Auto (Bld) [Volum e fraction]Ordered By: Epi Booth on 10-14-2023 Hematocrit (Bld) [Volume fraction] 34.4 % 34.0-46.4 [facility] Hemoglobin [Mass/volume] in BloodOrdered By: Epi Booth on 10-14-2023 Hemoglobin (Bld) [Mass/Vol] 11.3 g/dL 11.8-15.4 [facility] Leukocytes [#/volume] correc seferino for nucleated erythrocytes in Blood by Automated counOrdered By: Epi Booth on 10-14-2023 WBC corrected for nucl RBC Auto (Bld) [#/Vol] 11.7 10*3/uL 3.8-11.6 [facility] Lymphocytes Auto (Bld) [#/Vo l]Ordered By: Epi Booth on 10-14-2023 Lymphocytes (Bld) [#/Vol] 1.7 10*3/uL 1.00-4.8 [facility] Lymphocytes/100 WBC Auto (Bl d)Ordered By: Epi Booth on 10-14-2023 Lymphocytes/100 WBC (Bld) 14.4 % . [facility] MCH Auto (RBC) [Entitic mass ]Ordered By: Epi Booth on 10-14-2023 MCH (RBC) [Entitic mass] 29.7 pg 24.7-34.3 [facility] MCHC Auto (RBC) [Mass/Vol]Or dered By: Epi Booth on 10-14-2023 MCHC (RBC) [Mass/Vol] 32.9 g/dL 32.0-35.0 [facility] MCV Auto (RBC) [Entitic vol] Ordered By: Epi Booth on 10-14-2023 MCV (RBC) [Entitic vol] 90.5 fL 80-100 [facility] Monocytes Auto (Bld) [#/Vol] Ordered By: Epi Booth on 10-14-2023 Monocytes (Bld) [#/Vol] 2.1 10*3/uL 0.0-0.8 [facility] Monocytes/100 WBC Auto (Bld) Ordered By: Epi Booth on 10-14-2023 Monocytes/100 WBC (Bld) 17.8 % . [facility] Neutrophils Auto (Bld) [#/Vo l]Ordered By: Epi Booth on 10-14-2023 Neutrophils (Bld) [#/Vol] 7.9 10*3/uL 1.8-7.7 [facility] Neutrophils/100 WBC Auto (Bl d)Ordered By: Epi Booth on 10-14-2023 Neutrophils/100 WBC (Bld) 66.9 % . [facility] No Panel InformationOrdered By: Tosha Patel on 10-14-2023 CA 27.29 28.1 U/mL 0.0-38.6 [facility] Comment on above: [employer] Immu nochemiluminometric Methodology (ICMA)Values obtained with different assay methods or kits cannotbe used interchangeably. Results cannot be interpreted asabsolute evidence of the presence or absence of malignantdisease.Performed at: [facility] [address] Director: José Manuel Petersen PhD, Phone: [phone] No Panel InformationOrdered By: Epi Booth on 10-14-2023 Estimated GFR (CKD-EPI) > 60.0 mL/Min [facility] Creatinine Clearance (Chem 47.62 [facility] Nucleated erythrocytes [Pres ence] in Blood by Automated countOrdered By: Epi Booth on 10-14-2023 Nucleated RBC Auto Ql (Bld) 0.0 /100{WBC} 0-0.5 [facility] Platelet adequacy [Presence] in Blood by Light microscopyOrdered By: Epi Booth on 10-14-2023 Platelets LM Ql (Bld) Normal Normal [facility] Platelet mean volume Auto (B ld) [Entitic vol]Ordered By: Epi Booth on 10-14-2023 Platelet mean volume (Bld) [Entitic vol] 9.0 fL 6.3-10.7 [facility] Platelet morphology finding [Identifier] in BloodOrdered By: Epi Booth on 10-14-2023 Platelet morphology finding Nom (Bld) Normal Normal [facility] Platelets Auto (Bld) [#/Vol] Ordered By: Epi Booth on 10-14-2023 Platelets (Bld) [#/Vol] 225 10*3/uL 150-450 [facility] Potassium [Moles/volume] in Serum or PlasmaOrdered By: Epi Booth on 10-14-2023 Potassium [Moles/Vol] 4.0 mmol/L 3.5-5.1 [facility] RBC Auto (Bld) [#/Vol]Ordere d By: Epi Booth on 10-14-2023 RBC (Bld) [#/Vol] 3.80 10*6/uL 3.60-5.00 [facility] RBC morphologyOrdered By: Alejandra Booth on 10-14-2023 RBC morphology finding Nom (Bld) Normal Normal [facility] Serum or plasma anion gap de terminationOrdered By: Epi Booth on 10-14-2023 Anion gap [Moles/Vol] 9.5 mmol/L 6.0-15.0 [facility] Serum or plasma cancer antig en 125 (CA-125) measurement (units/volume)Ordered By: Tosha Patel on 10-14-2023 Cancer Ag 125 Qn 33.3 [arb'U]/mL 0.0-38.1 [facility] Comment on above: [employer] El ectrochemiluminescence Immunoassay(ECLIA)Values obtained with different assay methods or kits cannotbe used interchangeably. Results cannot be interpreted asabsolute evidence of the presence or absence of malignantdisease.Performed at: [facility] [employer] [id number] Director: José Manuel Petersen PhD, Phone: [phone] Serum or plasma cancer antig en 19-9 measurement (units/volume)Ordered By: Tosha Patel on 10-14-2023 Cancer Ag 19-9 Qn 19 [arb'U]/mL 0-35 [facility] Comment on above: [employer] El ectrochemiluminescence Immunoassay(ECLIA)Values obtained with different assay methods or kits cannotbe used interchangeably. Results cannot be interpreted asabsolute evidence of the presence or absence of malignantdisease. Serum or plasma carcinoembry onic antigen measurement (mass/volume)Ordered By: Tosha Patel on 10-14-2023 Carcinoembryonic Ag [Mass/Vol] 2.0 ng/mL 0.0-3.0 [facility] Sodium [Moles/volume] in Ser um or PlasmaOrdered By: Epi Booth on 10-14-2023 Sodium [Moles/Vol] 131 mmol/L 136-145 [facility] Urea nitrogen [Mass/volume] in Serum or PlasmaOrdered By: Epi Booth on 10-14-2023 Urea nitrogen [Mass/Vol] 18 mg/dL 7-25 [facility] WBC Auto (Bld) [#/Vol]Ordere d By: Epi Booth on 10-14-2023 WBC (Bld) [#/Vol] 11.7 10*3/uL 3.8-11.6 [facility] Giant platelets/100 leukocyt es [Ratio] in Blood by Manual countOrdered By: Epi Booth on 10-13-2023 Giant platelets/100 WBC Manual cnt (Bld) [Ratio] 1 /100{WBC} [facility] Lymphocytes/100 WBC Manual c nt (Bld)Ordered By: Epi Booth on 10-13-2023 Lymphocytes/100 WBC (Bld) 10 % 18-42 [facility] Monocytes/100 WBC Manual cnt (Bld)Ordered By: Epi Booth on 10-13-2023 Monocytes/100 WBC (Bld) 6 % 2-11 [facility] Polychromasia [Presence] in Blood by Light microscopyOrdered By: Epi Booth on 10-13-2023 Polychromasia LM Ql (Bld) Slight [facility] Segmented neutrophils/100 WB C Manual cnt (Bld)Ordered By: Epi Booth on 10-13-2023 Segmented neutrophils/100 WBC (Bld) 84 % 50-70 [facility] Variant lymphocytes/100 WBC Manual cnt (Bld)Ordered By: Epi Booth on 10-13-2023 Variant lymphocytes/100 WBC (Bld) 1 % 0-12 [facility] Automated erythrocytes count in urine sediment (number/area)Ordered By: Chin Rodarte on 10-12-2023 RBC Auto (Urine sed) [#/Area] Innumerable [HPF] 0-4 [facility] Automated leukocytes count i n urine sediment (number/area)Ordered By: Chin Rodarte on 10-12-2023 WBC Auto (Urine sed) [#/Area] Innumerable [HPF] 0-4 [facility] Bilirubin Test strip Ql (U)O rdered By: Chin Rodarte on 10-12-2023 Bilirubin Ql (U) 1+ Negative [facility] Color Auto (U)Ordered By: Harlan Rodarte on 10-12-2023 Color (U) Dark yellow Yellow [facility] Ketones Auto test strip (U) [Mass/Vol]Ordered By: Chin Rodarte on 10-12-2023 Ketones (U) [Mass/Vol] Trace Negative [facility] Laboratory - UrinalysisOrder ed By: Chin Rodarte on 10-12-2023 Hyaline casts LM Ql (Urine sed) 0-8 [LPF] 0-8 [facility] Nitrite Test strip Ql (U)Ord ered By: Chin Rodarte on 10-12-2023 Nitrite Ql (U) Positive Negative [facility] Protein Auto test strip (U) [Mass/Vol]Ordered By: Chin Rodarte on 10-12-2023 Protein (U) [Mass/Vol] 300 mg/dL Negative [facility] Specific gravity Auto test s trip (U) [Rel density]Ordered By: Chin Rodarte on 10-12-2023 Specific gravity (U) [Rel density] 1.031 1.001-1.03 0 [facility] Squamous epithelial cells de tection in urine sediment by light microscopyOrdered By: Chin Rodarte on 10-12-2023 Epithelial cells.squamous LM Ql (Urine sed) 1-2 [HPF] 0-2 [facility] Urine bacteria detection by automated methodOrdered By: Chin Rodarte on 10-12-2023 Bacteria Auto Ql (U) None seen None Seen [facility] Urine clarity by refractomet ry automatedOrdered By: Chin Rodarte on 10-12-2023 Clarity Refractometry automated (U) Turbid Clear [facility] Urine culture routineOrdered By: Chin Rodarte on 10-12-2023 Bacteria identified Cx Nom (U) Jessica glabrata [facility] Urine glucose measurement by automated test strip (mass/volume)Ordered By: Chin Rodarte on 10-12-2023 Glucose Auto test strip (U) [Mass/Vol] Normal mg/dL Normal [facility] Urine hemoglobin detection b y automated test stripOrdered By: Chin Rodarte on 10-12-2023 Hemoglobin Auto test strip Ql (U) 3+ Negative [facility] Urine leukocyte esterase det ection by automated test stripOrdered By: Chin Rodarte on 10-12-2023 Leukocyte esterase Auto test strip Ql (U) 3+ Negative [facility] Urobilinogen Auto test strip (U) [Mass/Vol]Ordered By: Chin Rodarte on 10-12-2023 Urobilinogen (U) [Mass/Vol] Normal mg/dL Normal [facility] pH Auto test strip (U)Ordere d By: Chin Rodarte on 10-12-2023 pH (U) 5.5 [pH] 5.0-9.0 [facility] Activated partial thrombopla stin time (aPTT) in platelet poor plasma by coagulation aOrdered By: Ketty Brand on 10-11-2023 aPTT Coag (PPP) [Time] 32.0 s 25.1-36.5 [facility] Comment on above: A hematocrit value g reater than 55% may lead to inaccurate results in coagulation testing. Patients having hematocrit values >55% require a special collection tube for coagulation studies. Please contact the laboratory at [phone] for redraw instructions. Basophils Auto (Bld) [#/Vol] Ordered By: Ketty Brand on 10-11-2023 Basophils (Bld) [#/Vol] 0.1 10*3/uL 0.0-0.2 [facility] Basophils/100 WBC Auto (Bld) Ordered By: Ketty Brand on 10-11-2023 Basophils/100 WBC (Bld) 1.0 % . [facility] Calcium [Mass/volume] in Ser um or PlasmaOrdered By: Ketty Brand on 10-11-2023 Calcium [Mass/Vol] 9.5 mg/dL 8.6-10.3 [facility] Carbon dioxide, total [Moles /volume] in Serum or PlasmaOrdered By: Ketty Brand on 10-11-2023 CO2 [Moles/Vol] 27.4 mmol/L 21.0-31.0 [facility] Chloride [Moles/volume] in S cedric or PlasmaOrdered By: Ketty Brand on 10-11-2023 Chloride [Moles/Vol] 100 mmol/L 98-107 [facility] Creatinine [Mass/volume] in Serum or PlasmaOrdered By: Ketty Brand on 10-11-2023 Creatinine [Mass/Vol] 0.77 mg/dL 0.60-1.20 [facility] Eosinophils Auto (Bld) [#/Vo l]Ordered By: Ketty Brand on 10-11-2023 Eosinophils (Bld) [#/Vol] 0.2 10*3/uL 0.0-0.45 [facility] Eosinophils/100 WBC Auto (Bl d)Ordered By: Ketty Brand on 10-11-2023 Eosinophils/100 WBC (Bld) 1.7 % . [facility] Erythrocyte distribution wid th Auto (RBC) [Ratio]Ordered By: Ketty Brand on 10-11-2023 Erythrocyte distribution width (RBC) [Ratio] 14.2 % 11.9-15.3 [facility] Glucose [Mass/volume] in Ser um or PlasmaOrdered By: Ketty Brand on 10-11-2023 Glucose [Mass/Vol] 418 mg/dL 70-100 [facility] Comment on above: ADA recommended refe rence rangeRandom Glucose Reference Range is dependent on time and content of last meal. Glucose of more than 200 mg/dL in a nonstressed, ambulatory subject supports the diagnosis of Diabetes Mellitus. Hematocrit Auto (Bld) [Volum e fraction]Ordered By: Ketty Brand on 10-11-2023 Hematocrit (Bld) [Volume fraction] 44.1 % 34.0-46.4 [facility] Hemoglobin [Mass/volume] in BloodOrdered By: Ketty Brand on 10-11-2023 Hemoglobin (Bld) [Mass/Vol] 14.8 g/dL 11.8-15.4 [facility] INR in Platelet poor plasma by Coagulation assayOrdered By: Ketty Brand on 10-11-2023 INR Coag (PPP) [Relative time] 1.0 {INR} [facility] Comment on above: INR Therapeutic Rang e A) Pre- and Peroperative OAT started two weeks before surgery. NOT HIP SURGERY: 1.5 - 2.5 HIP SURGERY: 2 - 3B) Primary and secondary prevention of venous THROMBOSIS: 2 - 3C) Active venous thrombosis, pulmonary embolismand prevention of recurrent venous thrombosis: 2 - 3D) Prevention of arterial thromboembolismincluding patients with mechanical heart valves: 3 - 4.5 Leukocytes [#/volume] correc seferino for nucleated erythrocytes in Blood by Automated counOrdered By: Ketty Brand on 10-11-2023 WBC corrected for nucl RBC Auto (Bld) [#/Vol] 10.1 10*3/uL 3.8-11.6 [facility] Lymphocytes Auto (Bld) [#/Vo l]Ordered By: Ketty Brand on 10-11-2023 Lymphocytes (Bld) [#/Vol] 2.2 10*3/uL 1.00-4.8 [facility] Lymphocytes/100 WBC Auto (Bl d)Ordered By: Ketty Brand on 10-11-2023 Lymphocytes/100 WBC (Bld) 21.3 % . [facility] MCH Auto (RBC) [Entitic mass ]Ordered By: Ketty Brand on 10-11-2023 MCH (RBC) [Entitic mass] 30.4 pg 24.7-34.3 [facility] MCHC Auto (RBC) [Mass/Vol]Or dered By: Ketty Brand on 10-11-2023 MCHC (RBC) [Mass/Vol] 33.6 g/dL 32.0-35.0 [facility] MCV Auto (RBC) [Entitic vol] Ordered By: Ketty Brand on 10-11-2023 MCV (RBC) [Entitic vol] 90.5 fL 80-100 [facility] Monocyte distribution width [Entitic volume] in Blood by AutomatedOrdered By: Ketty Brand on 10-11-2023 Monocyte distribution width Auto (Bld) [Entitic vol] 17.73 % 0.00-20.00 [facility] Monocytes Auto (Bld) [#/Vol] Ordered By: Ketty Brand on 10-11-2023 Monocytes (Bld) [#/Vol] 0.8 10*3/uL 0.0-0.8 [facility] Monocytes/100 WBC Auto (Bld) Ordered By: Ketty Brand on 10-11-2023 Monocytes/100 WBC (Bld) 8.4 % . [facility] Neutrophils Auto (Bld) [#/Vo l]Ordered By: Ketty Brand on 10-11-2023 Neutrophils (Bld) [#/Vol] 6.9 10*3/uL 1.8-7.7 [facility] Neutrophils/100 WBC Auto (Bl d)Ordered By: Ketty Brand on 10-11-2023 Neutrophils/100 WBC (Bld) 67.6 % . [facility] No Panel InformationOrdered By: Ketty Brand on 10-11-2023 Estimated GFR (CKD-EPI) > 60.0 mL/Min [facility] Creatinine Clearance (Chem N/A [facility] Nucleated erythrocytes [Pres ence] in Blood by Automated countOrdered By: Ketty Brand on 10-11-2023 Nucleated RBC Auto Ql (Bld) 0.1 /100{WBC} 0-0.5 [facility] Platelet mean volume Auto (B ld) [Entitic vol]Ordered By: Ketty Brand on 10-11-2023 Platelet mean volume (Bld) [Entitic vol] 8.4 fL 6.3-10.7 [facility] Platelets Auto (Bld) [#/Vol] Ordered By: Ketty Brand on 10-11-2023 Platelets (Bld) [#/Vol] 323 10*3/uL 150-450 [facility] Potassium [Moles/volume] in Serum or PlasmaOrdered By: Ketty Brand on 10-11-2023 Potassium [Moles/Vol] 4.5 mmol/L 3.5-5.1 [facility] Prothrombin time (PT)Ordered By: Ketty Brand on 10-11-2023 PT Coag (PPP) [Time] 12.3 s 9.0-12.9 [facility] Comment on above: A hematocrit value g reater than 55% may lead to inaccurate results in coagulation testing. Patients having hematocrit values >55% require a special collection tube for coagulation studies. Please contact the laboratory at [phone] for redraw instructions. RBC Auto (Bld) [#/Vol]Ordere d By: Ketty Brand on 10-11-2023 RBC (Bld) [#/Vol] 4.87 10*6/uL 3.60-5.00 [facility] Serum or plasma anion gap de terminationOrdered By: Ketty Brand on 10-11-2023 Anion gap [Moles/Vol] 10.1 mmol/L 6.0-15.0 [facility] Sodium [Moles/volume] in Ser um or PlasmaOrdered By: Ketty Brand on 10-11-2023 Sodium [Moles/Vol] 133 mmol/L 136-145 [facility] Urea nitrogen [Mass/volume] in Serum or PlasmaOrdered By: Ketty rBand on 10-11-2023 Urea nitrogen [Mass/Vol] 11 mg/dL 7-25 [facility] WBC Auto (Bld) [#/Vol]Ordere d By: Ketty Brand on 10-11-2023 WBC (Bld) [#/Vol] 10.1 10*3/uL 3.8-11.6 [facility] Urine culture routineOrdered By: Mica Hook on 09-08-2023 Bacteria identified Cx Nom (U) bacilli - 2 Days [facility] XR elbow LT 2Von 02-16-2023 XR elbow LT 2V [facility] [email or web address] Other XR elbow LT 2V [facility] [employer] Other XR elbow LT 2V [address] [facility] [employer] Other XR elbow LT 2[place] [address] No rt [employer] Other XR elbow LT 2V XRay Report [employer] Other XR elbow LT 2V Signed [employer] Other XR elbow LT 2V Patient: Palmer Palmer MR#: [id number] [employer] Other XR elbow LT 2V 13 [employer] Other XR elbow LT 2V : 1940 Acct:[id number] [employer] Other XR elbow LT 2V Age/Sex: 83 / F ADM Date: 02/16/23 [employer] Other XR elbow LT 2V Loc: [facility]XD Room: Type : [facility] [employer] Other XR elbow LT 2V Attending Dr: Radha Mccauley MD [employer] Other XR elbow LT 2V Copies to: Uma Mccauley MD [employer] Other XR elbow LT 2V Ordering Provider: Uma Mccauley MD [employer] Other XR elbow LT 2V Date of Service: 02/16/23 [employer] Other XR elbow LT 2V XR/XR elbow LT 2V: Nondisplaced fracture of neck of left radius, [employer] Other XR elbow LT 2V subsequent enc [employer] Other XR elbow LT 2V LEFT ELBOW - 2 views [employer] Other XR elbow LT 2V CLINICAL HISTORY: Follow-up left radial neck fracture [employer] Other XR elbow LT 2V COMPARISON: Left elb ow 01/06/2023 [employer] Other XR elbow LT 2V FINDINGS: [employer] Other XR elbow LT 2V Radial neck fracture unchanged in alignment with interval sclerosis suggestive of healing response. [employer] Other XR elbow LT 2V No new fractures. Mi ld degenerative change. No joint effusion. [employer] Other XR elbow LT 2V X R/XR elbow LT 2V [employer] Other XR elbow LT 2V IMPRESSION: [employer] Other XR elbow LT 2V HEALING RADIAL NECK FRACTURE. [employer] Other XR elbow LT 2V Impression dictated by: Anthony Benson Jr., D.O.02/16/2023 12:21 PM [employer] Other XR elbow LT 2V Dictation Location: [facility] [employer] Other XR elbow LT 2V Transcribed By: CHEKO 02/16/23 [facility] [employer] Other XR elbow LT 2V Dictated By: Anthony Benson Jr, DO 02/16/23 [facility] [employer] Other XR elbow LT 2V Signed By: [employer] Other XR elbow LT 2V 02/16/23 [facility] [employer] Other XR hand LT min 3V*on 023 XR hand LT min 3V* XR/XR hand LT min 3V*: Nondisplaced fracture of neck of left radius, [employer] Other XR hand LT min 3V* LEFT HAND - 4 views [employer] Other XR hand LT min 3V* REASON FOR EXAM: Follow-up mallet fracture [employer] Other XR hand LT min 3V* COMPARISON: Left dasilva d 01/06/2023 [employer] Other XR hand LT min 3V* Splint is seen invol ving the fifth digit. The patient's distal phalanx fracture of the fifth digit [employer] Other XR hand LT min 3V* appears grossly unchanged in alignment and healing compared to the prior study. No additional [employer] Other XR hand LT min 3V* fractures are seen. Mild degenerative changes involving the DIP joints particularly involving the [employer] Other XR hand LT min 3V* second and third DIP joints. Carpus demonstrates degenerative change. No bony erosions. [employer] Other XR hand LT min 3V* X R/XR hand LT min 3V* [employer] Other XR hand LT min 3V* NO SIGNIFICANT WALKER E IN THE DIGIT FRACTURE FINDINGS COMPARED TO THE PRIOR STUDY. [employer] Other XR hand LT min 3V* Impression dictated by: Anthony Benson Jr., D.OCharu02/16/2023 12:24 PM [employer] Other XR hand LT min 3V* Transcribed By: PWS 02/16/23 1224 [employer] Other XR hand LT min 3V* Dictated By: Anthony Benson Jr, DO 02/16/23 1221 [employer] Other XR hand LT min 3V* 02/16/23 1224 [facility] [employer] Other Office Visit (Cardiology)on 01-14-2023 Follow-up visit [...] Release Levothy (more content not included)... Normal [place] Tobacco Screening.on 023 Adult depression screening assessment No [facility] 250 DO Work Phone: Fall risk assessment b) One or more fall s in the last year [facility] 250 DO Work Phone: Tobacco use status [facility] b) No [facility] 250 DO Work Phone: XR elbow LT 2Von 01-06-2023 XR elbow LT 2V [facility] [employer] Other XR elbow LT 2V [facility] [employer] Other XR elbow LT 2V [address] [place] [address] [employer] Other XR elbow LT 2[place] [address] No rt [employer] Other XR elbow LT 2V XRay Report [employer] Other XR elbow LT 2V Signed [employer] Other XR elbow LT 2V Patient: Palmer Palmer MR#: [id number] [place] [employer] Other XR elbow LT 2V 13 [employer] Other XR elbow LT 2V : 1940 Acct:[id number] [employer] Other XR elbow LT 2V Age/Sex: 82 / F ADM Date: 01/06/23 [employer] Other XR elbow LT 2V Loc: SOXD Room: Type : [facility] [employer] Other XR elbow LT 2V Attending Dr: Radha Mccauley MD [employer] Other XR elbow LT 2V Copies to: Uma Mccauley MD [employer] Other XR elbow LT 2V Ordering Provider: Uma Mccauley MD [employer] Other XR elbow LT 2V Date of Service: 01/06/23 [employer] Other XR elbow LT 2V XR/XR elbow LT 2V: Closed nondisplaced fracture of neck of left radius, [employer] Other XR elbow LT 2V initial [employer] Other XR elbow LT 2V XR elbow LT 2V 023 9:36 AM [employer] Other XR elbow LT 2V SIGNS AND SYMPTOMS: Status post left radial neck fracture, follow-up [employer] Other XR elbow LT 2V PROTOCOL: Frontal an d lateral radiographs of the left elbow [employer] Other XR elbow LT 2V COMPARISON: 12/18/2022 [employer] Other XR elbow LT 2V FINDINGS: [employer] Other XR elbow LT 2V There is redemonstra tion of a minimally displaced fracture of the neck of the radius without intra- [employer] Other XR elbow LT 2V articular extension. No change in alignment. Healing remains incomplete. No significant joint [employer] Other XR elbow LT 2V effusion. No disloca tion or subluxation. [employer] Other XR elbow LT 2V X R/XR elbow LT 2V [employer] Other XR elbow LT 2V IMPRESSION: [employer] Other XR elbow LT 2V Similar incompletely healed fracture traversing the radial neck without change in alignment. [employer] Other XR elbow LT 2V Impression dictated by: Tomasz Lerner M.D.01/06/2023 2:02 PM [employer] Other XR elbow LT 2V Dictation Location: [place] [address] [employer] Other XR elbow LT 2V Transcribed By: CHEKO 01/06/23 1402 [employer] Other XR elbow LT 2V Dictated By: Tomasz Lerner II, MD 01/06/23 1401 [employer] Other XR elbow LT 2V Signed By: Isidro del [email or web address] [email or web address] Other XR elbow LT 2V 01/06/23 1402 Isidro girard [email or web address] Other XR hand LT min 3V*on 023 XR hand LT min 3V* XR/XR hand LT min 3V*: Closed nondisplaced fracture of phalanx of left [employer] Other XR hand LT min 3V* joaquín Cano [employer] Other XR hand LT min 3V* XR hand LT min 3V* 01/06/2023 9:36 AM [employer] Other XR hand LT min 3V* SIGNS AND SYMPTOMS: Follow-up left fifth digit fracture [employer] Other XR hand LT min 3V* PROTOCOL: Frontal, lateral, and oblique radiographs of the left hand [employer] Other XR hand LT min 3V* There is a minimally displaced fracture along the dorsal aspect of the ascending distal phalanx of [employer] Other XR hand LT min 3V* the fifth digit with intra-articular extension. There is no change in alignment. Healing remains [employer] Other XR hand LT min 3V* incomplete. There is mild fixed flexion deformity of the distal interphalangeal joint of the fifth [employer] Other XR hand LT min 3V* digit similar to the prior exam. There is narrowing of the distal interphalangeal joints throughout. [employer] Other XR hand LT min 3V* There is a tiny radiopaque foreign body along the tip of the second digit similar to the prior exam. [employer] Other XR hand LT min 3V* X R/XR hand LT min 3V* [employer] Other XR hand LT min 3V* Unchanged fracture a t the dorsal aspect of the base of the fifth distal phalanx. [employer] Other XR hand LT min 3V* Similar flexion deformity of the distal interphalangeal joint of the fifth digit without change in [employer] Other XR hand LT min 3V* alignment. [employer] Other XR hand LT min 3V* Impression dictated by: Tomasz Lerner M.D.01/06/2023 2:05 PM [employer] Other XR hand LT min 3V* Transcribed By: CHEKO 01/06/23 1405 [employer] Other XR hand LT min 3V* Dictated By: Tomasz Lerner II, MD 01/06/23 1404 [place] [employer] Other XR hand LT min 3V* 01/06/23 1400 [facility] [employer] Other CT CSPINE WO CONon 3 CT CSPINE WO CON EXAMINATION: CT CSPI [...] by: GRADY PARKER Date: 2022-12-18 13:55 Normal [facility] CT HEAD WO CONon 12-18-2022 CT HEAD [...] by: GRADY PARKER Date: 2022-12-18 13:39 Normal [facility] CULTURE URINEon 11-25-2022 CULTURE URINE Isolate [...] F Trimethoprim/Sulfamethox azole <=20 S F Normal [facility] Comment on above: Performed By: #### U RCX ####[facility] [address] [place], [place] [address]ZlCharu Walker CBC AUTO DIFFon 11-23-2022 BASO # 0.1 103/ul Normal 0.0-0.1 [facility] Comment on above: Performed By: #### C BC #### [facility] [address] [address] [address] Grace Walker Basophils/100 WBC (Bld) 0.8 % Normal 0.2-2.0 [facility] Comment on above: Performed By: #### C BC #### [facility] [address] [place] [address] [address] Grace Walker EO # 0.1 103/ul Normal 0.0-0.7 [facility] Comment on above: Performed By: #### C BC #### [facility] [address] [address] [address] Grace Walker Eosinophils/100 WBC (Bld) 1.1 % Normal 0.9-7.0 [facility] Comment on above: Performed By: #### C BC #### [facility] [address] [place] [address] Dr. Grace Walker Erythrocyte distribution width (RBC) [Ratio] 13.4 % Normal 11.0-15.0 [facility] Comment on above: Performed By: #### C BC #### [facility] [address] [place] [address] Dr. Grace Walker Hematocrit (Bld) [Volume fraction] 48.6 % Critically high 36.0-48.0 [facility] Comment on above: Performed By: #### C BC #### [facility] [address] [place] [address] Dr. Grace Walker Hemoglobin (Bld) [Mass/Vol] 15.9 g/dL Normal 12.0-16.0 [facility] Comment on above: Performed By: #### C BC #### [facility] [address] [address] [address] Grace Walker IG # 0.14 10e3/ul Critically high 0.00-0.03 [facility] Comment on above: Performed By: #### C BC #### [facility] [address] [place] [address] Dr. Grace Walker IG % 1.2 % Critically high 0.0-0.5 [facility] Comment on above: Performed By: #### C BC #### [facility] [address] [address] [address] Grace Walker LYMPH # 1.8 103/ul Normal 1.2-3.8 [facility] Comment on above: Performed By: #### C BC #### [facility] [address] [place] [address] Dr. Grace Walker Lymphocytes/100 WBC (Bld) 15.9 % Critically low 20.5-60.0 [facility] Comment on above: Performed By: #### C BC #### [facility] [address] [place] [address] Dr. Grace Walker MANUAL DIFF REQ NO Normal [facility] Comment on above: Performed By: #### C BC #### [facility] [address] [place] [address] Dr. Grace Walker MCH (RBC) [Entitic mass] 29.8 pg Normal 26.7-34.0 [facility] Comment on above: Performed By: #### C BC #### [facility] [address] [place] [address] Dr. Grace Walker MCHC (RBC) [Mass/Vol] 32.7 g/dL Normal 29.9-35.2 [facility] Comment on above: Performed By: #### C BC #### [facility] [address] [place] [address] Dr. Grace Walker MCV (RBC) [Entitic vol] 91.0 fL Normal 81.0-99.0 [facility] Comment on above: Performed By: #### C BC #### [facility] [address] [place] [address] Dr. Grace Walker MONO # 1.0 103/ul Critically high 0.3-0.8 [facility] Comment on above: Performed By: #### C BC #### [facility] [address] [place] [address] Dr. Grace Walker Monocytes/100 WBC (Bld) 8.8 % Normal 1.7-12.0 [facility] Comment on above: Performed By: #### C BC #### [facility] [address] [address] [address] Grace Walker NEUT # 8.2 103/ul Critically high 1.4-6.5 [facility] Comment on above: Performed By: #### C BC #### [facility] [address] [address] [address] Grace Walker Neutrophils/100 WBC (Bld) 72.2 % Normal 43.0-75.0 [facility] Comment on above: Performed By: #### C BC #### [facility] [address] [address] [address] Grace Walker Platelet mean volume (Bld) [Entitic vol] 9.6 fL Normal 9.5-13.5 [facility] Comment on above: Performed By: #### C BC #### [facility] [address] [address] [address] Grace Walker PLT 268 103/ul Normal 150-450 [facility] Comment on above: Performed By: #### C BC #### [facility] [address] [address] [address] Grace Walker RBC 5.34 106/ul Normal 4.20-5.40 [facility] Comment on above: Performed By: #### C BC #### [facility] [address] [address] [address] Grace Walker WBC 11.3 103/ul Critically high 4.0-11.0 [facility] Comment on above: Performed By: #### C BC #### [facility] [address] [address] [address] Grace Walker GLYCOHEMOGLOBIN A1Con 2022 ADA RECOMMENDATION SEE BELOW Normal [facility] Comment on above: Result Comment: ADA RECOMMENDED LIMIT 4.0 - 6.0 ADA THERAPEUTIC TARGET < 7.0 ACTION SUGGESTED > 7.0 Performed By: #### A 1C ####[facility] [address] [place] [address]Dr. Grace Walker Glucose [Mass/Vol] 192 mg/dL Normal [facility] Comment on above: Performed By: #### A 1C ####[facility] [address] [place], [place] [address]YxDr. Grace Walker HbA1c (Bld) [Mass fraction] 8.3 % Critically high 4.5-6.2 [facility] Comment on above: Performed By: #### A 1C ####[facility] [facility] [id number] [address]Dr. Grace Walker MICROALBUMIN, RAND URon 11-08 mALB 12.6 mg/L Normal <=30.0 [facility] Comment on above: Performed By: #### M ALBR #### [facility] [address] [address] [address] Grace Walker PROF 14(COMP METB)on 023 Albumin [Mass/Vol] 3.4 g/dL Normal 3.4-5.0 [facility] Comment on above: Performed By: #### C MP #### [facility] [address] [place] [address] Dr. Grace Walker Albumin/Globulin [Mass ratio] 0.9 {ratio} Normal [facility] Comment on above: Performed By: #### C MP #### [facility] [address] [address] [address] Grace Walker ALP [Catalytic activity/Vol] 82 U/L Normal 46-116 [facility] Comment on above: Performed By: #### C MP #### [facility] [address] [address] [address] Grace Walker ALT [Catalytic activity/Vol] 11 U/L Critically low 14-59 [facility] Comment on above: Performed By: #### C MP #### [facility] [address] [address] [address] Grace Walker Anion gap [Moles/Vol] 11.6 mmol/L Normal [facility] Comment on above: Performed By: #### C MP #### [facility] [address] [place] [address] Dr. Grace Walker AST [Catalytic activity/Vol] 13 U/L Critically low 15-37 [facility] Comment on above: Performed By: #### C MP #### [facility] [address] [address] [address] Grace Walker Bilirubin [Mass/Vol] 0.6 mg/dL Normal 0.2-1.0 [facility] Comment on above: Performed By: #### C MP #### [facility] [address] [address] [address] Grace Walker Calcium [Mass/Vol] 9.0 mg/dL Normal 8.5-10.1 [facility] Comment on above: Performed By: #### C MP #### [facility] [address] [address] [address] Grace Walker Chloride [Moles/Vol] 101 mmol/L Normal 98-107 [facility] Comment on above: Performed By: #### C MP #### [facility] [address] [address] [address] Grace Walker CO2 [Moles/Vol] 27.5 mmol/L Normal 21.0-32.0 [facility] Comment on above: Performed By: #### C MP #### [facility] [address] [address] [address] Grace Walker Creatinine [Mass/Vol] 0.95 mg/dL Normal 0.55-1.02 [facility] Comment on above: Performed By: #### C MP #### [facility] [address] [address] [address] Grace Walker EGFR-AF BAHRAINI >60 Normal >=60 [facility] Comment on above: Performed By: #### C MP #### [facility] [address] [address] [address] Grace Walker EGFR-NON AF BAHRAINI 56 mL/min/1.73m2 Critically low >=60 [facility] Comment on above: Performed By: #### C MP #### [facility] [address] [address] [address] Grace Walker Globulin (S) [Mass/Vol] 3.7 g/dL Normal [facility] Comment on above: Performed By: #### C MP #### [facility] [address] [address] [address] Grace Walker Glucose [Mass/Vol] 225 mg/dL Critically high 74-106 [facility] Comment on above: Performed By: #### C MP #### [facility] [address] [address] [address] Grace Walker Potassium [Moles/Vol] 4.1 mmol/L Normal 3.5-5.1 [facility] Comment on above: Performed By: #### C MP #### [facility] [address] [address] [address] Grace Walker Protein [Mass/Vol] 7.1 g/dL Normal 6.4-8.2 [facility] Comment on above: Performed By: #### C MP #### [facility] [address] [address] [address] Grace Walker Sodium [Moles/Vol] 136 mmol/L Normal 136-145 [facility] Comment on above: Performed By: #### C MP #### [facility] [address] [address] [address] Grace Walker Urea nitrogen [Mass/Vol] 18.0 mg/dL Normal 7.0-18.0 [facility] Comment on above: Performed By: #### C MP #### [facility] [address] [address] [address] Grace Walker Urea nitrogen/Creatinine [Mass ratio] 18.9 mg/mg Normal [facility] Comment on above: Performed By: #### C MP #### [facility] [address] [address] [address] Grace Walker CBC AUTO DIFFon 03-02-2022 BASO # 0.1 103/ul Normal 0.0-0.1 [facility] Comment on above: Performed By: #### C BC ####[facility] [address] [address]Dr. Grace Walker Basophils/100 WBC (Bld) 1.5 % Normal 0.2-2.0 [facility] Comment on above: Performed By: #### C BC ####[facility] [address] [id number]. Grace Walker EO # 0.2 103/ul Normal 0.0-0.7 [facility] Comment on above: Performed By: #### C BC ####[facility] [address] [id number]. Grace Walker Eosinophils/100 WBC (Bld) 2.6 % Normal 0.9-7.0 [facility] Comment on above: Performed By: #### C BC ####[facility] [address] [place], [place] [address]Dr. Grace Walker Erythrocyte distribution width (RBC) [Ratio] 13.8 % Normal 11.0-15.0 [facility] Comment on above: Performed By: #### C BC ####[facility] [address] [place], [place] [address]Dr. Grace Walker Hematocrit (Bld) [Volume fraction] 46.3 % Normal 36.0-48.0 [facility] Comment on above: Performed By: #### C BC ####[facility] [address] [place], [place] [address]Dr. Grace Walker Hemoglobin (Bld) [Mass/Vol] 14.8 g/dL Normal 12.0-16.0 [facility] Comment on above: Performed By: #### C BC ####[facility] [address] [place], [place] [address]Dr. Grace Walker IG # 0.17 10e3/ul Critically high 0.00-0.03 [facility] Comment on above: Performed By: #### C BC ####[facility] [address] [place], [place] [address]Dr. Grace Walker IG % 2.1 % Critically high 0.0-0.5 [facility] Comment on above: Performed By: #### C BC ####[facility] [address] [place], [place] [address]Dr. Grace Walker LYMPH # 2.5 103/ul Normal 1.2-3.8 [facility] Comment on above: Performed By: #### C BC ####[facility] [address] [id number]. Grace Walker Lymphocytes/100 WBC (Bld) 30.4 % Normal 20.5-60.0 [facility] Comment on above: Performed By: #### C BC ####[facility] [address] [address]Dr. Grace Walker MANUAL DIFF REQ NO Normal [facility] Comment on above: Performed By: #### C BC ####[facility] [address] [place], [place] [address]Dr. Grace Walker MCH (RBC) [Entitic mass] 29.9 pg Normal 26.7-34.0 [facility] Comment on above: Performed By: #### C BC ####[facility] [address] [place], [place] [address]Dr. Grace Walker MCHC (RBC) [Mass/Vol] 32.0 g/dL Normal 29.9-35.2 [facility] Comment on above: Performed By: #### C BC ####[facility] [address] [place], [place] [address]Dr. Grace Walker MCV (RBC) [Entitic vol] 93.5 fL Normal 81.0-99.0 [facility] Comment on above: Performed By: #### C BC ####[facility] [address] [place], [place] [address]Dr. Grace Walker MONO # 1.0 103/ul Critically high 0.3-0.8 [facility] Comment on above: Performed By: #### C BC ####[facility] [address] [place], [place] [address]Dr. Grace Walker Monocytes/100 WBC (Bld) 11.7 % Normal 1.7-12.0 [facility] Comment on above: Performed By: #### C BC ####[facility] [address] [place], [place] [address]Dr. Grace Walker NEUT # 4.2 103/ul Normal 1.4-6.5 [facility] Comment on above: Performed By: #### C BC ####[facility] [address] [id number]. Grace Walker Neutrophils/100 WBC (Bld) 51.7 % Normal 43.0-75.0 [facility] Comment on above: Performed By: #### C BC ####[facility] [address] [id number]. Grace Walker Platelet mean volume (Bld) [Entitic vol] 10.5 fL Normal 9.5-13.5 [facility] Comment on above: Performed By: #### C BC ####[facility] [address] [id number]. Grace Walker PLT 278 103/ul Normal 150-450 [facility] Comment on above: Performed By: #### C BC ####[facility] [address] [id number]. Grace Walker RBC 4.95 106/ul Normal 4.20-5.40 [facility] Comment on above: Performed By: #### C BC ####[facility] [address] [id number]. Grace Walker WBC 8.1 103/ul Normal 4.0-11.0 [facility] Comment on above: Performed By: #### C BC ####[facility] [address] [id number]. Grace Walker DIRECT LDLon 03-02-2022 Cholesterol in LDL [Mass/Vol] 223 mg/dL Normal [facility] Comment on above: Performed By: #### D LDL, LIPID, CMP ####[facility] [address] [id number]. Grace Walker DLDL NORMAL SEE BELOW Normal [facility] Comment on above: Result Comment: <100 mg/dl OPTIMAL 100 - 129 mg/dl NEAR OR ABOVE OPTIMAL 130 - 159 mg/dl BORDERLINE HIGH 160 - 189 mg/dl HIGH >190 mg/dl VERY HIGH Performed By: #### D LDL, LIPID, CMP ####[facility] [address] [place], [place] [id number]. Grace Walker GLYCOHEMOGLOBIN A1Con 2021 ADA RECOMMENDATION SEE BELOW Normal [facility] Comment on above: Result Comment: ADA RECOMMENDED LIMIT 4.0 - 6.0 ADA THERAPEUTIC TARGET < 7.0 ACTION SUGGESTED > 7.0 Performed By: #### A 1C #### [facility] [address] [address] [address] Grace Walker Glucose [Mass/Vol] 223 mg/dL Normal [facility] Comment on above: Performed By: #### A 1C #### [facility] [address] [address] [address] Grace Walker HbA1c (Bld) [Mass fraction] 9.4 % Critically high 4.5-6.2 [facility] Comment on above: Performed By: #### A 1C #### [facility] [address] [place] [address] Dr. Grace Walker LIPID PROFILEon 03-02-2022 CHOL-HDL RATIO NORM SEE BELOW Normal [facility] Comment on above: Result Comment: 3.3 - 4.4 LOW RISK 4.4 - 7.1 AVERAGE RISK 7.1 - 11.0 MODERATE RISK >11.0 HIGH RISK Performed By: #### D LDL, LIPID, CMP #### [facility] [address] [place] [address] Dr. Grace Walker Cholesterol [Mass/Vol] 374 mg/dL Critically high <=200 [facility] Comment on above: Performed By: #### D LDL, LIPID, CMP #### [facility] [address] [place] [address] Dr. Grace Walker Cholesterol in HDL [Mass/Vol] 43 mg/dL Normal 40-60 [facility] Comment on above: Performed By: #### D LDL, LIPID, CMP #### [facility] [address] [place] [address] Dr. Grace Walker Cholesterol.total/Consuelo sterol in HDL [Mass ratio] 8.7 {ratio} Normal [facility] Comment on above: Performed By: #### D LDL, LIPID, CMP #### [facility] [address] [address] [address] Grace Walker HDL NORMAL > or = 60 mg/dl - LO W CARDIOVASCULAR RISK <40 mg/dl - HIGH CARDIOVASCULAR RISK Normal [facility] Comment on above: Performed By: #### D LDL, LIPID, CMP #### [facility] [address] [place] [address] Dr. Grace Walker Triglyceride [Mass/Vol] 461 mg/dL Critically high <=150 [facility] Comment on above: Performed By: #### D LDL, LIPID, CMP #### [facility] [address] [place] [address] Dr. Grace Walker VLDL CALC 92.2 mg/dL Normal [facility] Comment on above: Performed By: #### D LDL, LIPID, CMP #### [facility] [address] [place] [address] Dr. Grace Walker PROF 14(COMP METB)on 022 Albumin [Mass/Vol] 3.2 g/dL Critically low 3.4-5.0 [facility] Comment on above: Performed By: #### D LDL, LIPID, CMP #### [facility] [address] [place] [address] Dr. Grace Walker Albumin/Globulin [Mass ratio] 0.9 {ratio} Normal [facility] Comment on above: Performed By: #### D LDL, LIPID, CMP #### [facility] [address] [place] [address] Dr. Grace Walker ALP [Catalytic activity/Vol] 89 U/L Normal 46-116 [facility] Comment on above: Performed By: #### D LDL, LIPID, CMP #### [facility] [address] [place] [address] Dr. Grace Walker ALT [Catalytic activity/Vol] 13 U/L Critically low 14-59 [facility] Comment on above: Performed By: #### D LDL, LIPID, CMP #### [facility] [address] [place] [address] Dr. Grace Walker Anion gap [Moles/Vol] 11.5 mmol/L Normal [facility] Comment on above: Performed By: #### D LDL, LIPID, CMP #### [facility] [address] [address] [address] Grace Walker AST [Catalytic activity/Vol] 9 U/L Critically low 15-37 [facility] Comment on above: Performed By: #### D LDL, LIPID, CMP #### [facility] [address] [address] [address] Grace Walker Bilirubin [Mass/Vol] 0.4 mg/dL Normal 0.2-1.0 [facility] Comment on above: Performed By: #### D LDL, LIPID, CMP #### [facility] [address] [address] [address] Grace Walker Calcium [Mass/Vol] 8.7 mg/dL Normal 8.5-10.1 [facility] Comment on above: Performed By: #### D LDL, LIPID, CMP #### [facility] [address] [address] [address] Grace Walker Chloride [Moles/Vol] 101 mmol/L Normal 98-107 [facility] Comment on above: Performed By: #### D LDL, LIPID, CMP #### [facility] [address] [address] [address] Grace Walker CO2 [Moles/Vol] 26.2 mmol/L Normal 21.0-32.0 [facility] Comment on above: Performed By: #### D LDL, LIPID, CMP #### [facility] [address] [address] [address] Grace Wlaker Creatinine [Mass/Vol] 1.26 mg/dL Critically high 0.55-1.02 [facility] Comment on above: Performed By: #### D LDL, LIPID, CMP #### [facility] [address] [address] [address] Grace Walker EGFR-AF BAHRAINI 49 mL/min/1.73m2 Critically low >=60 [facility] Comment on above: Performed By: #### D LDL, LIPID, CMP #### [facility] [address] [address] [address] Grace Walker EGFR-NON AF BAHRAINI 41 mL/min/1.73m2 Critically low >=60 [facility] Comment on above: Performed By: #### D LDL, LIPID, CMP #### [facility] [address] [address] [address] Grace Walker Globulin (S) [Mass/Vol] 3.5 g/dL Normal [facility] Comment on above: Performed By: #### D LDL, LIPID, CMP #### [facility] [address] [place] [address] Dr. Grace Walker Glucose [Mass/Vol] 196 mg/dL Critically high 74-106 [facility] Comment on above: Performed By: #### D LDL, LIPID, CMP #### [facility] [address] [place] [address] Dr. Grace Walker Potassium [Moles/Vol] 4.7 mmol/L Normal 3.5-5.1 [facility] Comment on above: Performed By: #### D LDL, LIPID, CMP #### [facility] [address] [place] [address] Dr. Grace Walker Protein [Mass/Vol] 6.7 g/dL Normal 6.1-8.2 [facility] Comment on above: Performed By: #### D LDL, LIPID, CMP #### [facility] [address] [place] [address] Dr. Grace Walker Sodium [Moles/Vol] 134 mmol/L Critically low 136-145 [facility] Comment on above: Performed By: #### D LDL, LIPID, CMP #### [facility] [address] [place] [address] Dr. Grace Walker Urea nitrogen [Mass/Vol] 18.0 mg/dL Normal 7.0-18.0 [facility] Comment on above: Performed By: #### D LDL, LIPID, CMP #### [facility] [address] [place] [address] Dr. Grace Walker Urea nitrogen/Creatinine [Mass ratio] 14.3 mg/mg Normal [facility] Comment on above: Performed By: #### D LDL, LIPID, CMP #### [facility] [address] [place] [address] Dr. Grace Walker CULTURE URINEon 02-28-2022 CULTURE [...] F Trimethoprim/Sulfamethox azole <=20 S F Normal [facility] Comment on above: Performed By: #### U RCX ####[facility] [address] [address]Dr. Grace Walker Tobacco Screening.on 022 Adult depression screening assessment No [facility] 250 DO Work Phone: Fall risk assessment a) No falls within the last year [facility] 250 DO Work Phone: Tobacco use status [facility] b) No M [facility] 250 DO Work Phone: BASIC METABOLIC PANELon Calcium mass conc 8.2 mg/dL Low 8.6-10.[address] [facility] Comment on above: Order Comment: No: D o not add to previous draw Performed By: #### 0 0121, 13893, 64647 #### [facility] [address] [place] [address], [place] Chloride molar conc 108 mmol/L High 98-[address] [facility] Comment on above: Order Comment: No: D o not add to previous draw Performed By: #### 0 0121, 74906, 87683 #### [facility] [address] [place] [address], [place] CO2 molar conc 21 mmol/L Normal 21-[address] [facility] Comment on above: Order Comment: No: D o not add to previous draw Performed By: #### 0 0121, 54679, 34665 #### [facility] [address] [place] [address], [place] Creatinine mass conc 0.43 mg/dL Low 0.60-1.[address] [facility] Comment on above: Order Comment: No: D o not add to previous draw Performed By: #### 0 0121, 04290, 57892 #### [facility] [address] [place] [address], [place] GFR/1.73 sq M predicted among blacks MDRD vol rate/area (S/P/Bld) mL/min/{1.73_m2} Normal >[address] [facility] Comment on above: Order Comment: No: D o not add to previous draw Result Comment: Calc ulation may not be valid for patients over 70 years Performed By: #### 0 0121, 72338, 96328 #### [facility] [address] [place] [address], [place] GFR/1.73 sq M predicted among non-blacks MDRD vol rate/area (S/P/Bld) mL/min/{1.73_m2} Normal >[address] [facility] Comment on above: Order Comment: No: D o not add to previous draw Result Comment: Calc ulation may not be valid for patients over 70 years Performed By: #### 0 0121, 76436, 97050 #### [facility] [address] [place] [address], [place] Glucose mass conc 148 mg/dL High 70-[address] [facility] Comment on above: Order Comment: No: D o not add to previous draw Performed By: #### 0 0121, 37526, 13468 #### [facility] [address] [place] [address], [place] Potassium molar conc 3.7 mmol/L Normal 3.5-5.[address] [facility] Comment on above: Order Comment: No: D o not add to previous draw Performed By: #### 0 0121, 19847, 47095 #### [facility] [address] [place] [address], [facility] Sodium molar conc 137 mmol/L Normal 136-[address] [facility] Comment on above: Order Comment: No: D o not add to previous draw Performed By: #### 0 0121, 08993, 74295 #### [facility] [address] [place] [address], [facility] Urea nitrogen mass conc 9 mg/dL Normal 7-[address] [facility] Comment on above: Order Comment: No: D o not add to previous draw Performed By: #### 0 0121, 91847, 98718 #### [facility] [address] [place] [address], [facility] HEMOGLOBIN A1Con 12-16-2018 Hemoglobin A1c/Hemoglobin.total mass fraction (Bld) 7.5 % High 4.0-6.[address] [facility] Comment on above: Order Comment: Yes: Add to Previous draw if able Performed By: #### 0 0121, 25342, 55147 #### [facility] [address] [place] [address], [facility] Hemoglobin A1c/Hemoglobin.total mass fraction (Bld) 169 mg/dL High 70-[address] [facility] Comment on above: Order Comment: Yes: Add to Previous draw if able Performed By: #### 0 0121, 03082, 93872 #### [facility] [address] [place] [address], [facility] MAGNESIUM BLOODon 12-16-2018 Magnesium mass conc 1.9 mg/dL Normal 1.9-2.[address] [facility] Comment on above: Order Comment: No: D o not add to previous draw Performed By: #### 0 0121, 98406, 50106 #### [facility] [address] [place] [address], [facility] POC GLUCOSE LABon 12-16-2018 Glucose mass conc 205 mg/dL High 70-[address] [facility] Comment on above: Performed By: #### 0 0121, 43375, 70773 #### [facility] [address] [place] [address], [facility] Glucose mass conc 147 mg/dL High 70-[address] [facility] Comment on above: Performed By: #### 0 0121, 63625, 11456 #### [facility] [address] [place] [address], [facility] BASIC METABOLIC PANELon 02-0 Calcium mass conc 8.2 mg/dL Low 8.6-10.[address] [facility] Comment on above: Order Comment: No: D o not add to previous draw Performed By: #### 0 0121, 44426, 91963 #### [facility] [address] [place] [address], [facility] Chloride molar conc 106 mmol/L Normal 98-[address] [facility] Comment on above: Order Comment: No: D o not add to previous draw Performed By: #### 0 0121, 00146, 00290 #### [facility] [address] [place] [address], [facility] CO2 molar conc 26 mmol/L Normal 21-[address] [facility] Comment on above: Order Comment: No: D o not add to previous draw Performed By: #### 0 0121, 07897, 45429 #### [facility] [address] [place] [address], [facility] Creatinine mass conc 0.50 mg/dL Low 0.60-1.[address] [facility] Comment on above: Order Comment: No: D o not add to previous draw Performed By: #### 0 0121, 22483, 84628 #### [facility] [address] [place] [id number], [facility] GFR/1.73 sq M predicted among blacks MDRD vol rate/area (S/P/Bld) mL/min/{1.73_m2} Normal >[address] [facility] Comment on above: Order Comment: No: D o not add to previous draw Result Comment: Calc ulation may not be valid for patients over 70 years Performed By: #### 0 0121, 60756, 80599 #### [facility] [address] [place] [address], [place] GFR/1.73 sq M predicted among non-blacks MDRD vol rate/area (S/P/Bld) mL/min/{1.73_m2} Normal >[address] [facility] Comment on above: Order Comment: No: D o not add to previous draw Result Comment: Calc ulation may not be valid for patients over 70 years Performed By: #### 0 0121, 39056, 34885 #### [facility] [address] [place] [address], [place] Glucose mass conc 183 mg/dL High 70-[address] [facility] Comment on above: Order Comment: No: D o not add to previous draw Performed By: #### 0 0121, 29239, 75664 #### [facility] [address] [place] [address], [place] Potassium molar conc 3.3 mmol/L Low 3.5-5.[address] [facility] Comment on above: Order Comment: No: D o not add to previous draw Performed By: #### 0 0121, 70697, 77428 #### [facility] [address] [place] [address], [place] Sodium molar conc 139 mmol/L Normal 136-[address] [facility] Comment on above: Order Comment: No: D o not add to previous draw Performed By: #### 0 0121, 12575, 70361 #### [facility] [address] [place] [address], [place] Urea nitrogen mass conc 10 mg/dL Normal 7-[address] [facility] Comment on above: Order Comment: No: D o not add to previous draw Performed By: #### 0 0121, 12047, 44508 #### [facility] [address] [facility]. [address] CBC W/DIFFon 12-15-2018 ABS BASOPHILS 0.1 10*3/uL Normal 0.0-0.[address] [facility] Comment on above: Order Comment: No: D o not add to previous draw Performed By: #### 0 0121, 43870, 49266 #### [facility] [address] [facility] [address], [facility] ABS IMM GRANS 0.1 10*3/uL Normal 0.0-0.[address] [facility] Comment on above: Order Comment: No: D o not add to previous draw Performed By: #### 0 0121, 14153, 71217 #### [facility] [address] ABS NEUTROPHILS 14.5 10*3/uL High 1.6-7.[address] [facility] Comment on above: Order Comment: No: D o not add to previous draw Performed By: #### 0 0121, 30526, 77617 #### [facility] [address] Basophils #/vol (Bld) 0.3 % Normal 0.0-1.[address] [facility] Comment on above: Order Comment: No: D o not add to previous draw Performed By: #### 0 0121, 32064, 87191 #### [facility] [address] [facility]. [address] Eosinophils #/vol (Bld) 0.1 10*3/uL Normal 0.0-0.[address] [facility] Comment on above: Order Comment: No: D o not add to previous draw Performed By: #### 0 0121, 72504, 79189 #### [facility] [address] [place] [address], [facility] Eosinophils/100 WBC (Bld) 0.7 % Normal 0.0-6.[address] [facility] Comment on above: Order Comment: No: D o not add to previous draw Performed By: #### 0 0121, 55104, 94588 #### [facility] [address] Erythrocyte distribution width Ratio (RBC) 12.7 % Normal 11.5-15.[address] [facility] Comment on above: Order Comment: No: D o not add to previous draw Performed By: #### 0 0121, 82264, 84745 #### [facility] [address] Hematocrit Volume Fraction (Bld) 41.1 % Normal 36.0-45.[address] [facility] Comment on above: Order Comment: No: D o not add to previous draw Performed By: #### 0 0121, 55674, 74803 #### [facility] [address] Hemoglobin mass conc (Bld) 13.6 g/dL Normal 12.0-15.[address] [facility] Comment on above: Order Comment: No: D o not add to previous draw Performed By: #### 0 0121, 69107, 86004 #### [facility] [address] [facility] [address] IMMATURE GRANS 0.6 % Normal 0.0-1.[address] [facility] Comment on above: Order Comment: No: D o not add to previous draw Performed By: #### 0 0121, 63987, 13568 #### [facility] [address] [place] [address], [facility] Lymphocytes #/vol (Bld) 2.0 10*3/uL Normal 1.2-4.[address] [facility] Comment on above: Order Comment: No: D o not add to previous draw Performed By: #### 0 0121, 10473, 47509 #### [facility] [address] [place] [address], [facility] Lymphocytes/100 WBC (Bld) 10.8 % Low 20.0-45.[address] [facility] Comment on above: Order Comment: No: D o not add to previous draw Performed By: #### 0 0121, 08320, 49557 #### [facility] [address] [facility]. [address] MCH Entitic mass (RBC) 29.1 pg Normal 27.0-33.[address] [facility] Comment on above: Order Comment: No: D o not add to previous draw Performed By: #### 0 0121, 91898, 37577 #### [facility] [address] [facility]. [address] MCHC mass conc (RBC) 33.1 g/dL Normal 32.0-35.[address] [facility] Comment on above: Order Comment: No: D o not add to previous draw Performed By: #### 0 0121, 16601, 24113 #### [facility] [address] [facility]. [address] MCV Entitic volume (RBC) 88.0 fL Normal 82.0-98.[address] [facility] Comment on above: Order Comment: No: D o not add to previous draw Performed By: #### 0 0121, 69242, 94989 #### [facility] [address] Monocytes #/vol (Bld) 1.4 10*3/uL High 0.1-1.[address] [facility] Comment on above: Order Comment: No: D o not add to previous draw Performed By: #### 0 0121, 44696, 75266 #### [facility] [address] [facility]. [address] MONOS 7.8 % Normal 5.0-12.[address] [facility] Comment on above: Order Comment: No: D o not add to previous draw Performed By: #### 0 0121, 48231, 59030 #### [facility] [address] [place] [address], [facility] Neutrophils/100 WBC (Bld) 79.8 % High 40.0-72.[address] [facility] Comment on above: Order Comment: No: D o not add to previous draw Performed By: #### 0 0121, 52801, 74245 #### [facility] [address] [place] [address], [facility] Nucleated RBC/100 WBC Ratio (Bld) 0 % Normal 0-[address] [facility] Comment on above: Order Comment: No: D o not add to previous draw Performed By: #### 0 0121, 81003, 39455 #### [facility] [address] [place] [address], [facility] PLAT CNT 244 10*3/uL Normal 150-[address] [facility] Comment on above: Order Comment: No: D o not add to previous draw Performed By: #### 0 0121, 16553, 86048 #### [facility] [address] [place] [address], [facility] RBC #/vol (Bld) 4.67 10*6/uL Normal 3.80-5.[address] [facility] Comment on above: Order Comment: No: D o not add to previous draw Performed By: #### 0 0121, 93202, 21830 #### [facility] [address] [place] [address], [facility] WBC #/vol (Bld) 18.22 10*3/uL High 4.00-10.[address] [facility] Comment on above: Order Comment: No: D o not add to previous draw Performed By: #### 0 0121, 63639, 19966 #### [facility] [address] [place] [address], [facility] ABS BASOPHILS 0.1 10*3/uL Normal 0.0-0.[address] [facility] Comment on above: Order Comment: No: D o not add to previous draw Performed By: #### 0 0121, 65931, 95194 #### [facility] [address] [place] [address], [facility] ABS IMM GRANS 0.1 10*3/uL Normal 0.0-0.[address] [facility] Comment on above: Order Comment: No: D o not add to previous draw Performed By: #### 0 0121, 56861, 45254 #### [facility] [address] [place] [address], [facility] ABS NEUTROPHILS 8.5 10*3/uL High 1.6-7.[address] [facility] Comment on above: Order Comment: No: D o not add to previous draw Performed By: #### 0 0121, 20828, 63312 #### [facility] [address] [place] [address], [facility] Basophils #/vol (Bld) 0.5 % Normal 0.0-1.[address] [facility] Comment on above: Order Comment: No: D o not add to previous draw Performed By: #### 0 0121, 57020, 32609 #### [facility] [address] [place] [address], [facility] Eosinophils #/vol (Bld) 0.2 10*3/uL Normal 0.0-0.[address] [facility] Comment on above: Order Comment: No: D o not add to previous draw Performed By: #### 0 0121, 55376, 97037 #### [facility] [address] [place] [address], [facility] Eosinophils/100 WBC (Bld) 1.7 % Normal 0.0-6.[address] [facility] Comment on above: Order Comment: No: D o not add to previous draw Performed By: #### 0 0121, 09701, 12611 #### [facility] [address] [place] [address], [facility] Erythrocyte distribution width Ratio (RBC) 12.7 % Normal 11.5-15.[address] [facility] Comment on above: Order Comment: No: D o not add to previous draw Performed By: #### 0 0121, 85757, 05270 #### [facility] [address] Hematocrit Volume Fraction (Bld) 39.5 % Normal 36.0-45.[address] [facility] Comment on above: Order Comment: No: D o not add to previous draw Performed By: #### 0 0121, 01226, 70221 #### [facility] [address] [facility] [address] Hemoglobin mass conc (Bld) 13.4 g/dL Normal 12.0-15.[address] [facility] Comment on above: Order Comment: No: D o not add to previous draw Performed By: #### 0 0121, 79153, 05008 #### [facility] [address] [facility] IMMATURE GRANS 0.7 % Normal 0.0-1.[address] [facility] Comment on above: Order Comment: No: D o not add to previous draw Performed By: #### 0 0121, 40719, 50132 #### [facility] [address] [facility]. [address] Lymphocytes #/vol (Bld) 2.1 10*3/uL Normal 1.2-4.[address] [facility] Comment on above: Order Comment: No: D o not add to previous draw Performed By: #### 0 0121, 66167, 05620 #### [facility] [address] [place] [address], [facility] Lymphocytes/100 WBC (Bld) 17.7 % Low 20.0-45.[address] [facility] Comment on above: Order Comment: No: D o not add to previous draw Performed By: #### 0 0121, 29185, 92037 #### [facility] [address] [place] [address], [facility] MCH Entitic mass (RBC) 29.7 pg Normal 27.0-33.[address] [facility] Comment on above: Order Comment: No: D o not add to previous draw Performed By: #### 0 0121, 01893, 96535 #### [facility] [address] MCHC mass conc (RBC) 33.9 g/dL Normal 32.0-35.[address] [facility] Comment on above: Order Comment: No: D o not add to previous draw Performed By: #### 0 0121, 50566, 68870 #### [facility] [address] MCV Entitic volume (RBC) 87.6 fL Normal 82.0-98.[address] [facility] Comment on above: Order Comment: No: D o not add to previous draw Performed By: #### 0 0121, 32517, 40863 #### [facility] [address] [place] [address], [facility] Monocytes #/vol (Bld) 0.9 10*3/uL Normal 0.1-1.[address] [facility] Comment on above: Order Comment: No: D o not add to previous draw Performed By: #### 0 0121, 57214, 47500 #### [facility] [address] [place] [address], [facility] MONOS 7.3 % Normal 5.0-12.[address] [facility] Comment on above: Order Comment: No: D o not add to previous draw Performed By: #### 0 0121, 03475, 18004 #### [facility] [address] [place] [address], [facility] Neutrophils/100 WBC (Bld) 72.1 % High 40.0-72.[address] [facility] Comment on above: Order Comment: No: D o not add to previous draw Performed By: #### 0 0121, 51757, 08197 #### [facility] [address] [place] [address], [facility] Nucleated RBC/100 WBC Ratio (Bld) 0 % Normal 0-[address] [facility] Comment on above: Order Comment: No: D o not add to previous draw Performed By: #### 0 0121, 46530, 41552 #### [facility] [address] [place] [address], [facility] PLAT CNT 233 10*3/uL Normal 150-[address] [facility] Comment on above: Order Comment: No: D o not add to previous draw Performed By: #### 0 0121, 77464, 54071 #### [facility] [address] [place] [address], [facility] RBC #/vol (Bld) 4.51 10*6/uL Normal 3.80-5.[address] [facility] Comment on above: Order Comment: No: D o not add to previous draw Performed By: #### 0 0121, 34483, 95340 #### [facility] [address] [facility] [address], [facility] WBC #/vol (Bld) 11.74 10*3/uL High 4.00-10.[address] [facility] Comment on above: Order Comment: No: D o not add to previous draw Performed By: #### 0 0121, 97929, 07402 #### [facility] [address] [facility] [address], [facility] MAGNESIUM BLOODon 12-15-2018 Magnesium mass conc 1.8 mg/dL Low 1.9-2.[address] [facility] Comment on above: Order Comment: No: D o not add to previous draw Performed By: #### 0 0121, 90112, 19137 #### [facility] [address] [place] [address], [facility] POC GLUCOSE LABon 12-15-2018 Glucose mass conc 208 mg/dL High 70-[address] [facility] Comment on above: Performed By: #### 0 0121, 13506, 39229 #### [facility] [address] [facility] [place] [address], [place] Glucose mass conc 156 mg/dL High 70-[address] [facility] Comment on above: Performed By: #### 0 0121, 04983, 67304 #### [facility] [address] [place] [address], [place] Glucose mass conc 218 mg/dL High 70-[address] [facility] Comment on above: Performed By: #### 0 0121, 92237, 30477 #### [facility] [address] [place] [address], [place] Glucose mass conc 178 mg/dL High 70-[address] [facility] Comment on above: Performed By: #### 0 0121, 62415, 93186 #### [facility] [address] [place] [address], [place] BASIC METABOLIC PANELon 02-0 Calcium mass conc 8.3 mg/dL Low 8.6-10.[address] [facility] Comment on above: Order Comment: No: D o not add to previous draw Performed By: #### 0 0121, 87393, 36399 #### [facility] [address] [place] [address], [place] Chloride molar conc 106 mmol/L Normal 98-[address] [facility] Comment on above: Order Comment: No: D o not add to previous draw Performed By: #### 0 0121, 55101, 33285 #### [facility] [address] [facility] [place] [address], [place] CO2 molar conc 24 mmol/L Normal 21-[address] [facility] Comment on above: Order Comment: No: D o not add to previous draw Performed By: #### 0 0121, 08089, 45331 #### [facility] [address] [place] [address], [place] Creatinine mass conc 0.51 mg/dL Low 0.60-1.[address] [facility] Comment on above: Order Comment: No: D o not add to previous draw Performed By: #### 0 0121, 19295, 13086 #### [facility] [address] [place] [address], [place] GFR/1.73 sq M predicted among blacks MDRD vol rate/area (S/P/Bld) mL/min/{1.73_m2} Normal >[address] [facility] Comment on above: Order Comment: No: D o not add to previous draw Result Comment: Calc ulation may not be valid for patients over 70 years Performed By: #### 0 0121, 92606, 50685 #### [facility] [address] [place] [address], [facility] GFR/1.73 sq M predicted among non-blacks MDRD vol rate/area (S/P/Bld) mL/min/{1.73_m2} Normal >[address] [facility] Comment on above: Order Comment: No: D o not add to previous draw Result Comment: Calc ulation may not be valid for patients over 70 years Performed By: #### 0 0121, 39433, 73102 #### [facility] [address] [place] [address], [place] Glucose mass conc 176 mg/dL High 70-[address] [facility] Comment on above: Order Comment: No: D o not add to previous draw Performed By: #### 0 0121, 78868, 51443 #### [facility] [address] [place] [address], [place] Potassium molar conc 3.6 mmol/L Normal 3.5-5.[address] [facility] Comment on above: Order Comment: No: D o not add to previous draw Performed By: #### 0 0121, 18260, 96732 #### [facility] [address] [place] [address], [place] Sodium molar conc 137 mmol/L Normal 136-[address] [facility] Comment on above: Order Comment: No: D o not add to previous draw Performed By: #### 0 0121, 21143, 33622 #### [facility] [address] [facility] [address] Urea nitrogen mass conc 11 mg/dL Normal 7-[address] [facility] Comment on above: Order Comment: No: D o not add to previous draw Performed By: #### 0 0121, 59267, 27061 #### [facility] [address] [facility] [address], [facility] CBC W/DIFFon 12-14-2018 ABS BASOPHILS 0.1 10*3/uL Normal 0.0-0.[address] [facility] Comment on above: Order Comment: No: D o not add to previous draw Performed By: #### 0 0121, 50715, 05277 #### [facility] [address] [facility]. [address] ABS IMM GRANS 0.1 10*3/uL Normal 0.0-0.[address] [facility] Comment on above: Order Comment: No: D o not add to previous draw Performed By: #### 0 0121, 48967, 27456 #### [facility] [address] [facility]. [address] ABS NEUTROPHILS 7.6 10*3/uL Normal 1.6-7.[address] [facility] Comment on above: Order Comment: No: D o not add to previous draw Performed By: #### 0 0121, 72659, 37382 #### [facility] [address] [facility]. [address] Basophils #/vol (Bld) 0.4 % Normal 0.0-1.[address] [facility] Comment on above: Order Comment: No: D o not add to previous draw Performed By: #### 0 0121, 41850, 32803 #### [facility] [address] [facility]. [address] Eosinophils #/vol (Bld) 0.1 10*3/uL Normal 0.0-0.[address] [facility] Comment on above: Order Comment: No: D o not add to previous draw Performed By: #### 0 0121, 84945, 91627 #### [facility] [address] [place] [address], [facility] Eosinophils/100 WBC (Bld) 0.6 % Normal 0.0-6.[address] [facility] Comment on above: Order Comment: No: D o not add to previous draw Performed By: #### 0 0121, 86225, 11374 #### [facility] [address] Erythrocyte distribution width Ratio (RBC) 12.7 % Normal 11.5-15.[address] [facility] Comment on above: Order Comment: No: D o not add to previous draw Performed By: #### 0 0121, 60536, 19832 #### [facility] [address] Hematocrit Volume Fraction (Bld) 41.5 % Normal 36.0-45.[address] [facility] Comment on above: Order Comment: No: D o not add to previous draw Performed By: #### 0 0121, 99242, 87794 #### [facility] [address] [facility] [place] [address], [facility] Hemoglobin mass conc (Bld) 14.2 g/dL Normal 12.0-15.[address] [facility] Comment on above: Order Comment: No: D o not add to previous draw Performed By: #### 0 0121, 05049, 59520 #### [facility] [address] [place] [address], [facility] IMMATURE GRANS 0.5 % Normal 0.0-1.[address] [facility] Comment on above: Order Comment: No: D o not add to previous draw Performed By: #### 0 0121, 20415, 53855 #### [facility] [address] [place] [id number], [facility] Lymphocytes #/vol (Bld) 2.4 10*3/uL Normal 1.2-4.0 The [facility] Comment on above: Order Comment: No: D o not add to previous draw Performed By: #### 0 0121, 41443, 39978 #### [facility] [address] [place] [address], [facility] Lymphocytes/100 WBC (Bld) 21.5 % Normal 20.0-45.[address] [facility] Comment on above: Order Comment: No: D o not add to previous draw Performed By: #### 0 0121, 23114, 19295 #### [facility] [address] [place] [address], [facility] MCH Entitic mass (RBC) 29.6 pg Normal 27.0-33.[address] [facility] Comment on above: Order Comment: No: D o not add to previous draw Performed By: #### 0 0121, 11804, 48026 #### [facility] [address] MCHC mass conc (RBC) 34.2 g/dL Normal 32.0-35.[address] [facility] Comment on above: Order Comment: No: D o not add to previous draw Performed By: #### 0 0121, 69746, 38387 #### [facility] [address] MCV Entitic volume (RBC) 86.6 fL Normal 82.0-98.[address] [facility] Comment on above: Order Comment: No: D o not add to previous draw Performed By: #### 0 0121, 50187, 53018 #### [facility] [address] [place] [address], [facility] Monocytes #/vol (Bld) 1.1 10*3/uL High 0.1-1.[address] [facility] Comment on above: Order Comment: No: D o not add to previous draw Performed By: #### 0 0121, 42868, 06967 #### [facility] [address] [place] [address], [facility] MONOS 9.4 % Normal 5.0-12.[address] [facility] Comment on above: Order Comment: No: D o not add to previous draw Performed By: #### 0 0121, 92259, 71359 #### [facility] [address] [place] [address], [facility] Neutrophils/100 WBC (Bld) 67.6 % Normal 40.0-72.[address] [facility] Comment on above: Order Comment: No: D o not add to previous draw Performed By: #### 0 0121, 06963, 28623 #### [facility] [address] [facility] [address], [facility] Nucleated RBC/100 WBC Ratio (Bld) 0 % Normal 0-[address] [facility] Comment on above: Order Comment: No: D o not add to previous draw Performed By: #### 0 0121, 44188, 92699 #### [facility] [address] [place] [address], [facility] PLAT CNT 231 10*3/uL Normal 150-[address] [facility] Comment on above: Order Comment: No: D o not add to previous draw Performed By: #### 0 0121, 06626, 24928 #### [facility] [address] [facility] [place] [address], [facility] RBC #/vol (Bld) 4.79 10*6/uL Normal 3.80-5.[address] [facility] Comment on above: Order Comment: No: D o not add to previous draw Performed By: #### 0 0121, 52554, 50753 #### [facility] [address] [place] [address], [facility] WBC #/vol (Bld) 11.22 10*3/uL High 4.00-10.[address] [facility] Comment on above: Order Comment: No: D o not add to previous draw Performed By: #### 0 0121, 71301, 98549 #### [facility] [address] EEG Reporton 12-14-2018 EEG Report Name: Heidi Palmer [facility] MR#: [id number] Age: 78 Physician: Date: 12/13/2018 Lab#: [id number] Date of : 1940 Patient Type: I NEURODIAGNOSTIC SERVICES REPORT [address] [place], [place] [address] Board of the [place] [employer] Accredited Laboratory REFERRING PHYSICIAN: Dr. [...] Anita Rdz M.D. Date Dict: 12/13/2018/05:59 P/Anita dRz M.D. Date Trans: 12/14/2018 04:23 A/debra [id number] Normal [facility] MAGNESIUM BLOODon 12-14-2018 Magnesium mass conc 2.0 mg/dL Normal 1.9-2.[address] [facility] Comment on above: Order Comment: No: D o not add to previous draw Performed By: #### 0 0121, 09136, 58852 #### [facility] [address] [place] [address], [facility] POC GLUCOSE LABon 12-14-2018 Glucose mass conc 166 mg/dL High 70-[address] [facility] Comment on above: Performed By: #### 0 0121, 01523, 77412 #### [facility] [address] [facility] [address], [facility] Glucose mass conc 225 mg/dL High 70-[address] [facility] Comment on above: Performed By: #### 0 0121, 54694, 75004 #### [facility] [address] [facility] [address], [facility] Glucose mass conc 206 mg/dL High 70-100 [facility] Comment on above: Performed By: #### 0 0121, 09132, 24977 #### [facility] [address] [facility] [address], [facility] Glucose mass conc 156 mg/dL High 70-[address] [facility] Comment on above: Performed By: #### 0 0121, 78527, 41808 #### [facility] [address] [facility] [address], [facility] URIC ACID URon 12-14-2018 Urate mass conc 48 mg/dL Normal [facility] Comment on above: Order Comment: No: D o not add to previous draw Result Comment: Ther e are no established reference values for random urine specimens Performed By: #### 0 0121, 87928, 31240 #### [facility] [address] *RAPID FLU AANDB BY MOLECULA Chidi 12-13-2018 *RAPID FLU AANDB BY MOLECULAR Clinical Report: (D) Specimen: NASAL SWAB Collected: 12/13/2018 01:15 Status: Final Last Updated: 12/13/2018 01:59 FLUA RNA (Final) Negative FLUB RNA (Final) Negative Normal [facility] Comment on above: Performed By: #### 3 1018 #### [facility] [address] [facility] [address], [facility] *URINE CULTUREon 12-13-2018 Bacteria identified Cx Nom (U) Clinical Report: (D) Specimen: URINE Collected: 12/13/2018 00:25 Status: Final Last Updated: 12/15/2018 08:06 CULT RES (Final) <10,000 Cfu/Ml No Significant Growth Normal [facility] Comment on above: Performed By: #### 0 0121, 39251, 96780 #### [facility] [address] [place] [address], [facility] AMMONIA BLOODon 12-13-2018 Ammonia mass conc (P) 35 umol/L Normal 16-[address] [facility] Comment on above: Performed By: #### 2 1408 #### [facility] [address] [facility] [address], [facility] BASIC METABOLIC PANELon Calcium mass conc 8.6 mg/dL Normal 8.6-10.[address] [facility] Comment on above: Order Comment: No: D o not add to previous draw Performed By: #### 2 1408 #### [facility] [address] [facility] [place] [address], [facility] Chloride molar conc 103 mmol/L Normal 98-[address] [facility] Comment on above: Order Comment: No: D o not add to previous draw Performed By: #### 2 1408 #### [facility] [address] [facility] [place] [address], [facility] CO2 molar conc 21 mmol/L Normal 21-[address] [facility] Comment on above: Order Comment: No: D o not add to previous draw Performed By: #### 2 1408 #### [facility] [address] [place] [address], [facility] Creatinine mass conc 0.47 mg/dL Low 0.60-1.[address] [facility] Comment on above: Order Comment: No: D o not add to previous draw Performed By: #### 2 1408 #### [facility] [address] [place] [address], [place] GFR/1.73 sq M predicted among blacks MDRD vol rate/area (S/P/Bld) mL/min/{1.73_m2} Normal >[address] [facility] Comment on above: Order Comment: No: D o not add to previous draw Result Comment: Calc ulation may not be valid for patients over 70 years Performed By: #### 2 1408 #### [facility] [address] [place] [address], [place] GFR/1.73 sq M predicted among non-blacks MDRD vol rate/area (S/P/Bld) mL/min/{1.73_m2} Normal >[address] [facility] Comment on above: Order Comment: No: D o not add to previous draw Result Comment: Calc ulation may not be valid for patients over 70 years Performed By: #### 2 1408 #### [facility] [address] [place] [address], [place] Glucose mass conc 186 mg/dL High 70-[address] [facility] Comment on above: Order Comment: No: D o not add to previous draw Performed By: #### 2 1408 #### [facility] [address] [place] [address], [place] Potassium molar conc 3.5 mmol/L Normal 3.5-5.[address] [facility] Comment on above: Order Comment: No: D o not add to previous draw Performed By: #### 2 1408 #### [facility] [address] [place] [address], [place] Sodium molar conc 135 mmol/L Low 136-[address] [facility] Comment on above: Order Comment: No: D o not add to previous draw Performed By: #### 2 1408 #### [facility] [address] [place] [address], [place] Urea nitrogen mass conc 10 mg/dL Normal 7-[address] [facility] Comment on above: Order Comment: No: D o not add to previous draw Performed By: #### 2 1408 #### [facility] [address] [facility]. [address] C REACTIVE PROTEINon 019 CRP mass conc 5.9 mg/L Normal 0.0-7.[address] [facility] Comment on above: Order Comment: Yes: Add to Previous draw if able Performed By: #### 0 0121, 22298, 36941 #### [facility] [address] [place] [address], [facility] CBC W/DIFFon 12-13-2018 ABS BASOPHILS 0.0 10*3/uL Normal 0.0-0.[address] [facility] Comment on above: Order Comment: No: D o not add to previous draw Performed By: #### 2 1408 #### [facility] [address] [facility] [address], [facility] ABS NEUTROPHILS 13.4 10*3/uL High 1.6-7.[address] [facility] Comment on above: Order Comment: No: D o not add to previous draw Performed By: #### 2 1408 #### [facility] [address] [facility] [address], [facility] Basophils #/vol (Bld) 0.0 % Normal 0.0-1.[address] [facility] Comment on above: Order Comment: No: D o not add to previous draw Performed By: #### 2 1408 #### [facility] [address] [facility] [address], [facility] Eosinophils #/vol (Bld) 0.0 10*3/uL Normal 0.0-0.[address] [facility] Comment on above: Order Comment: No: D o not add to previous draw Performed By: #### 2 1408 #### [facility] [address] [facility] [address], [facility] Eosinophils/100 WBC (Bld) 0.0 % Normal 0.0-6.[address] [facility] Comment on above: Order Comment: No: D o not add to previous draw Performed By: #### 2 1408 #### [facility] [address] Erythrocyte distribution width Ratio (RBC) 12.7 % Normal 11.5-15.[address] [facility] Comment on above: Order Comment: No: D o not add to previous draw Performed By: #### 2 1408 #### [facility] [address] [facility] Hematocrit Volume Fraction (Bld) 43.2 % Normal 36.0-45.[address] [facility] Comment on above: Order Comment: No: D o not add to previous draw Performed By: #### 2 1408 #### [facility] [address] Hemoglobin mass conc (Bld) 14.6 g/dL Normal 12.0-15.[address] [facility] Comment on above: Order Comment: No: D o not add to previous draw Performed By: #### 2 1408 #### [facility] [address] [facility]. [address] Lymphocytes #/vol (Bld) 0.9 10*3/uL Low 1.2-4.[address] [facility] Comment on above: Order Comment: No: D o not add to previous draw Performed By: #### 2 1408 #### [facility] [address] [place] [address], [facility] Lymphocytes/100 WBC (Bld) 5.5 % Low 20.0-45.[address] [facility] Comment on above: Order Comment: No: D o not add to previous draw Performed By: #### 2 1408 #### [facility] [address] [place] [address], [facility] MCH Entitic mass (RBC) 29.1 pg Normal 27.0-33.[address] [facility] Comment on above: Order Comment: No: D o not add to previous draw Performed By: #### 2 1408 #### [facility] [address] [place] [address], [facility] MCHC mass conc (RBC) 33.8 g/dL Normal 32.0-35.[address] [facility] Comment on above: Order Comment: No: D o not add to previous draw Performed By: #### 2 1408 #### [facility] [address] MCV Entitic volume (RBC) 86.2 fL Normal 82.0-98.[address] [facility] Comment on above: Order Comment: No: D o not add to previous draw Performed By: #### 2 1408 #### [facility] [address] [place] [address], [facility] Monocytes #/vol (Bld) 1.3 10*3/uL High 0.1-1.[address] [facility] Comment on above: Order Comment: No: D o not add to previous draw Performed By: #### 2 1408 #### [facility] [address] [facility] [address], [facility] MONOS 8.3 % Normal 5.0-12.[address] [facility] Comment on above: Order Comment: No: D o not add to previous draw Performed By: #### 2 1408 #### [facility] [address] [place] [address], [facility] Neutrophils/100 WBC (Bld) 86.2 % High 40.0-72.[address] [facility] Comment on above: Order Comment: No: D o not add to previous draw Performed By: #### 2 1408 #### [facility] [address] [place] [address], [facility] Nucleated RBC/100 WBC Ratio (Bld) 0 % Normal 0-[address] [facility] Comment on above: Order Comment: No: D o not add to previous draw Performed By: #### 2 1408 #### [facility] [address] [facility] [address], [facility] PLAT CNT 252 10*3/uL Normal 150-[address] [facility] Comment on above: Order Comment: No: D o not add to previous draw Performed By: #### 2 1408 #### [facility] [address] [place] [address], [facility] RBC #/vol (Bld) 5.01 10*6/uL High 3.80-5.[address] [facility] Comment on above: Order Comment: No: D o not add to previous draw Performed By: #### 2 1408 #### [facility] [address] [facility]. [address] WBC #/vol (Bld) 15.53 10*3/uL High 4.00-10.[address] [facility] Comment on above: Order Comment: No: D o not add to previous draw Performed By: #### 2 1408 #### [facility] [address] [facility]. [address] ABS BASOPHILS 0.0 10*3/uL Normal 0.0-0.[address] [facility] Comment on above: Performed By: #### 5 0103 #### [facility] [address] [facility]. [address] ABS IMM GRANS 0.1 10*3/uL Normal 0.0-0.[address] [facility] Comment on above: Performed By: #### 5 0103 #### [facility] [address] [facility] [address], [facility] ABS NEUTROPHILS 17.8 10*3/uL High 1.6-7.[address] [facility] Comment on above: Performed By: #### 5 0103 #### [facility] [address] Basophils #/vol (Bld) 0.2 % Normal 0.0-1.[address] [facility] Comment on above: Performed By: #### 5 0103 #### [facility] [address] [facility] [place] [address], [facility] Eosinophils #/vol (Bld) 0.0 10*3/uL Normal 0.0-0.[address] [facility] Comment on above: Performed By: #### 5 0103 #### [facility] [address] [facility]. [address] Eosinophils/100 WBC (Bld) 0.0 % Normal 0.0-6.[address] [facility] Comment on above: Performed By: #### 5 0103 #### [facility] [address] Erythrocyte distribution width Ratio (RBC) 12.3 % Normal 11.5-15.[address] [facility] Comment on above: Performed By: #### 5 0103 #### [facility] [address] Hematocrit Volume Fraction (Bld) 44.2 % Normal 36.0-45.[address] [facility] Comment on above: Performed By: #### 5 0103 #### [facility] [address] Hemoglobin mass conc (Bld) 15.4 g/dL High 12.0-15.[address] [facility] Comment on above: Performed By: #### 5 0103 #### [facility] [address] [facility]. [address] IMMATURE GRANS 0.6 % Normal 0.0-1.[address] [facility] Comment on above: Performed By: #### 5 3 #### [facility] [address] [place] [address], [facility] Lymphocytes #/vol (Bld) 1.8 10*3/uL Normal 1.2-4.[address] [facility] Comment on above: Performed By: #### 5 0103 #### [facility] [address] [facility] Lymphocytes/100 WBC (Bld) 8.9 % Low 20.0-45.[address] [facility] Comment on above: Performed By: #### 5 3 #### [facility] [address] [facility]. [address] MCH Entitic mass (RBC) 29.4 pg Normal 27.0-33.[address] [facility] Comment on above: Performed By: #### 3 #### [facility] [address] [facility]. [address] MCHC mass conc (RBC) 34.8 g/dL Normal 32.0-35.[address] [facility] Comment on above: Performed By: #### 5 3 #### [facility] [address] MCV Entitic volume (RBC) 84.4 fL Normal 82.0-98.[address] [facility] Comment on above: Performed By: #### 5 3 #### [facility] [address] [facility]. [address] Monocytes #/vol (Bld) 0.9 10*3/uL Normal 0.1-1.[address] [facility] Comment on above: Performed By: #### 5 3 #### [facility] [address] MONOS 4.1 % Low 5.0-12.[address] [facility] Comment on above: Performed By: #### 5 3 #### [facility] [address] [place] [address], [facility] Neutrophils/100 WBC (Bld) 86.2 % High 40.0-72.[address] [facility] Comment on above: Performed By: #### 5 3 #### [facility] [address] [facility]. [address] Nucleated RBC/100 WBC Ratio (Bld) 0 % Normal 0-[address] [facility] Comment on above: Performed By: #### 5 0103 #### [facility] [address] [facility] [address], [facility] PLAT CNT 265 10*3/uL Normal 150-[address] [facility] Comment on above: Performed By: #### 5 0103 #### [facility] [address] [facility] [address], [facility] RBC #/vol (Bld) 5.24 10*6/uL High 3.80-5.[address] [facility] Comment on above: Performed By: #### 5 0103 #### [facility] [address] [facility] [address], [facility] WBC #/vol (Bld) 20.63 10*3/uL High 4.00-10.[address] [facility] Comment on above: Performed By: #### 5 0103 #### [facility] [address] CHEST AND LATERALon 12-13-19 19 CHEST AND LATERAL [facility] Department of Radiology [address] [place], [place] [id number] == Patient Name: HEIDI PALMER : 1940 Sex: F Age: Race: White Pt. Location: [facility] Patient Status: I Ordered Date: 12/12/2018 11:50:00 [...] findings. Electronically signed by:Sanju Peñaloza. Transcribed by: [email or web address], User Resident: DILAN VEGA Electronically Signed by: SANJU PEÑALOZA @ 12/13/2018 09:56 AM I personally read this/these film(s) with this resident Normal [facility] Comment on above: Order Comment: R/O P neumonia COMP METABOLIC PANELon 12-13 Albumin mass conc 3.5 g/dL Normal 3.5-5.[address] [facility] Comment on above: Performed By: #### 0 0121, 08638, 03560 #### [facility] [address] [place] [address], [facility] ALKALINE PHOSPH 59 IU/L Normal 34-[address] [facility] Comment on above: Performed By: #### 0 0121, 59937, 83580 #### [facility] [address] [place] [address], [facility] ALT enzyme act/vol 8 U/L Normal 7-[address] [facility] Comment on above: Performed By: #### 0 0121, 29715, 38126 #### [facility] [address] [place] [address], [facility] AST enzyme act/vol 15 U/L Normal 13-[address] [facility] Comment on above: Performed By: #### 0 0121, 88099, 24237 #### [facility] [address] [place] [address], [facility] Bilirubin mass conc 0.8 mg/dL Normal 0.3-1.[address] [facility] Comment on above: Performed By: #### 0 0121, 83244, 49879 #### [facility] [address] [place] [address], [facility] Calcium mass conc 8.5 mg/dL Low 8.6-10.[address] [facility] Comment on above: Performed By: #### 0 0121, 05267, 27509 #### [facility] [address] [place] [address], [facility] Chloride molar conc 100 mmol/L Normal 98-[address] [facility] Comment on above: Performed By: #### 0 0121, 09792, 80919 #### [facility] [address] [place] [address], [place] CO2 molar conc 21 mmol/L Normal 21-[address] [facility] Comment on above: Performed By: #### 0 0121, 60687, 97124 #### [facility] [address] [place] [address], [place] Creatinine mass conc 0.50 mg/dL Low 0.60-1.[address] [facility] Comment on above: Performed By: #### 0 0121, 74547, 54203 #### [facility] [address] [place] [address], [place] GFR/1.73 sq M predicted among blacks MDRD vol rate/area (S/P/Bld) mL/min/{1.73_m2} Normal >[address] [facility] Comment on above: Result Comment: Calc ulation may not be valid for patients over 70 years Performed By: #### 0 0121, 31252, 12145 #### [facility] [address] [place] [address], [place] GFR/1.73 sq M predicted among non-blacks MDRD vol rate/area (S/P/Bld) mL/min/{1.73_m2} Normal >[address] [facility] Comment on above: Result Comment: Calc ulation may not be valid for patients over 70 years Performed By: #### 0 0121, 79535, 31192 #### [facility] [address] [place] [address], [facility] Glucose mass conc 217 mg/dL High 70-[address] [facility] Comment on above: Performed By: #### 0 0121, 30645, 79713 #### [facility] [address] [place] [address], [place] Potassium molar conc 3.5 mmol/L Normal 3.5-5.[address] [facility] Comment on above: Performed By: #### 0 0121, 70159, 91561 #### [facility] [address] [place] [address], [place] Protein mass conc 5.9 g/dL Low 6.0-8.[address] [facility] Comment on above: Performed By: #### 0 0121, 33896, 02461 #### [facility] [address] [place] [address], [place] Sodium molar conc 130 mmol/L Low 136-[address] [facility] Comment on above: Performed By: #### 0 0121, 63128, 06958 #### [facility] [address] [place] [address], [place] Urea nitrogen mass conc 12 mg/dL Normal 7-[address] [facility] Comment on above: Performed By: #### 0 0121, 72530, 90719 #### [address] [place] [address], [facility] CREATININE URINE RANDOMon Creatinine mass conc 59.0 mg/dL Normal [facility] Comment on above: Order Comment: Yes: Add to Previous draw if able Result Comment: Ther e are no established reference values for random urine specimens Performed By: #### 2 1408 #### [address] [address], [facility] CT BRAIN PERFUSIONon 019 CT BRAIN PERFUSION [facility] Department of Radiology [address] [place], [place] [id number] == Patient Name: HEIDI PALMER : 1940 Sex: F Age: Race: White Pt. Location: [facility] Patient Status: I Ordered Date: 12/12/2018 11:25:00 [...] findings. Electronically signed by:Phillip Clements. Transcribed by: [id number], User Resident: ELI GONZALES Electronically Signed by: PHILLIP CLEMENTS @ 12/13/2018 08:45 AM I personally read this/these film(s) with this resident Normal [facility] Comment on above: Order Comment: R/O C VA HIP LEFT 1 OR 2 VWS WITH PEL VISon 12-13-2018 HIP LEFT 1 OR 2 VWS WITH PELVIS [facility] Department of Radiology [address] [place] [id number] == Patient Name: HEIDI PALMER : 1940 Sex: F Age: Race: White Pt. Location: [id number] Patient Status: I Ordered Date: 12/13/2018 10:30:00 [...] abnormality Electronically signed by:Dai Meehan. Transcribed by: [email or web address], User Resident: Electronically Signed by: DAI MEEHAN @ 12/13/2018 02:16 PM Normal [facility] Comment on above: Order Comment: R/O F X History and Physicalon 12-13 History and Physical MR#: [id number] [facility] Pt. Name: Heidi Palmer Admitted: 12/13/2018 Date of : 1940 Attending Physician: Alex Anne MD Room #: [id number] Discharge Date: HISTORY AND PHYSICAL CHIEF COMPLAINT: Altered mental status. HISTORY OF PRESENT ILLNESS: This patient is a 78 years old with past medical history of coronary artery disease, hypertension, and diabetes, who was sent from [facility] due to possible stroke. Her son who is the primary historian said she is totally confused and disoriented. He took her to [facility] due to altered mental status. The son [...] think that she overtook her tramadol. In [facility], they were concern about stroke; therefore, she was sent to [facility]. In our department, the patient is awake; however, she does not answer any questions. CTA of neck and brain were negative for anything acute. CT of the lumbar spine was negative. The patient was found to have a white blood count of 20.63. UA and chest x-ray were unremarkable at [facility]; however, UA in our hospital was suggestive [...] stent 5 years ago. 5. Hypertension. 6. Bwd-pafsbor-sbfovjpjc diabetes. 7. Hypothyroidism. PLAN: We will order [...] A/Alex Anne MD Date Trans: 12/13/2018 01:34 Cristina/debra [id number] Normal [facility] LACTATE BLOODon 12-13-2018 Lactate molar conc 0.8 mmol/L Normal 0.5-2.[address] [facility] Comment on above: Order Comment: No: D o not add to previous draw Performed By: #### 1 0054 #### [facility] [address] [facility] [address], [facility] MAGNESIUM BLOODon 12-13-2018 Magnesium mass conc 1.8 mg/dL Low 1.9-2.[address] [facility] Comment on above: Order Comment: No: D o not add to previous draw Performed By: #### 2 1408 #### [facility] [address] [facility] [address], [facility] OSMOLALITY BLOODon 9 Osmolality 288 mOsm/kg Normal 285-[address] [facility] Comment on above: Performed By: #### 2 1408 #### [facility] [address] [place] [address], [facility] OSMOLALITY URINEon 9 Osmolality 641 mOsm/kg Normal 50-[address] [facility] Comment on above: Order Comment: Yes: Add to Previous draw if able Performed By: #### 2 1408 #### [facility] [address] [place] [address], [facility] POC GLUCOSE LABon 12-13-2018 Glucose mass conc 133 mg/dL High 70-[address] [facility] Comment on above: Performed By: #### 0 0121, [id number], [id number] #### [facility] [address] [place] [address], [facility] Glucose mass conc 153 mg/dL High 70-[address] [facility] Comment on above: Performed By: #### 0 0121, 81020, 83684 #### [facility] [address] [place] [address], [facility] Glucose mass conc 170 mg/dL High 70-[address] [facility] Comment on above: Performed By: #### 2 1408 #### [facility] [address] [place] [address], [facility] PROCALCITONINon 12-13-2018 Protein mass conc 0.04 ng/mL Normal 0.00-0.[address] [facility] Comment on above: Result Comment: Susp [...] initial PCT<0.5ng/mL Performed By: #### 0 0121, 99427, 13586 #### [facility] [address] [facility]. [address] SEDIMENTATION RATEon 019 SED RATE 0 mm/hr Normal 0-[address] [facility] Comment on above: Performed By: #### 2 1408 #### [facility] [address] [facility]. [address] SODIUM URINE RANDOMon 2018 Sodium molar conc (U) 102 mmol/L Normal [facility] Comment on above: Order Comment: Yes: Add to Previous draw if able Result Comment: Ther e are no established reference values for random urine specimens Performed By: #### 2 1408 #### [facility] [address] [facility]. [address] TSH3 WITH REFLEXon 9 T4 free mass conc 1.46 ng/dL Normal 0.71-1.[address] [facility] Comment on above: Performed By: #### 0 0121, [id number], 93370 #### [facility] [address] [facility] [address], [facility] TSH 3RD GENERATION 0.49 uIU/mL Normal 0.34-5.[address] [facility] Comment on above: Performed By: #### 0 0121, 96515, 15052 #### [facility] [address] [facility] [address], [facility] URINALYSIS REFLEXon 12-13-19 19 AMORPHOUS MANY Abnormal NONE SEEN [facility] Comment on above: Order Comment: Crite ashley for reflexing a culture was met. Urine Culture and sensitivity will be performed. Performed By: #### 3 0965 #### [facility] [address] [place] [address], [facility] Appearance Nom (U) CLOUDY Abnormal CLEAR [facility] Comment on above: Order Comment: Crite ashley for reflexing a culture was met. Urine Culture and sensitivity will be performed. Performed By: #### 3 0965 #### [facility] [address] [place] [address], [facility] Bilirubin mass conc Negative Normal NEGATIVE [facility] Comment on above: Order Comment: Crite ashley for reflexing a culture was met. Urine Culture and sensitivity will be performed. Performed By: #### 3 0965 #### [facility] [address] [facility] [address], [facility] BLOOD SMALL Abnormal NEGATIVE [facility] Comment on above: Order Comment: Crite ashley for reflexing a culture was met. Urine Culture and sensitivity will be performed. Performed By: #### 3 0965 #### [facility] [address] [facility] [address], [facility] Color Nom (U) YELLOW Normal YELLOW [facility] Comment on above: Order Comment: Crite ashley for reflexing a culture was met. Urine Culture and sensitivity will be performed. Performed By: #### 3 0965 #### [facility] [address] [facility] [address], [facility] EPIS OCC Normal FEW,OCC,NO NE SEEN [facility] Comment on above: Order Comment: Crite ashley for reflexing a culture was met. Urine Culture and sensitivity will be performed. Performed By: #### 3 0965 #### [facility] [address] [place] [address], [facility] Glucose mass conc >=500 Abnormal NEGATIVE [facility] Comment on above: Order Comment: Crite ashley for reflexing a culture was met. Urine Culture and sensitivity will be performed. Performed By: #### 3 0965 #### [facility] [address] [place] [address], [facility] KETONE 20 mg/dL Abnormal NEGATIVE [facility] Comment on above: Order Comment: Crite ashley for reflexing a culture was met. Urine Culture and sensitivity will be performed. Performed By: #### 3 0965 #### [facility] [address] [place] [address], [facility] LEUK JAME LARGE Abnormal NEGATIVE [facility] Comment on above: Order Comment: Crite ashley for reflexing a culture was met. Urine Culture and sensitivity will be performed. Performed By: #### 3 0965 #### [facility] [address] [facility] [facility] [address] Nitrite Ql (U) Negative Normal NEGATIVE [facility] Comment on above: Order Comment: Crite ashley for reflexing a culture was met. Urine Culture and sensitivity will be performed. Performed By: #### 3 0965 #### [facility] [address] [facility]. [address] pH (Bld) 6.0 Normal 5.0-8.[address] [facility] Comment on above: Order Comment: Crite ashley for reflexing a culture was met. Urine Culture and sensitivity will be performed. Performed By: #### 3 0965 #### [facility] [address] [facility] [address], [facility] Protein mass conc (U) Negative Normal NEGATIVE [facility] Comment on above: Order Comment: Crite ashley for reflexing a culture was met. Urine Culture and sensitivity will be performed. Performed By: #### 3 0965 #### [facility] [address] [place] [address], [facility] RBC #/vol (U) 11-20 Abnormal NONE SEEN [facility] Comment on above: Order Comment: Crite ashley for reflexing a culture was met. Urine Culture and sensitivity will be performed. Performed By: #### 3 0965 #### [address] SPEC GRAV 1.053 High 1.015-1.[address] [facility] Comment on above: Order Comment: Crite ashley for reflexing a culture was met. Urine Culture and sensitivity will be performed. Performed By: #### 3 0965 #### [address] WBC UA 51-100 Abnormal NONE SEEN [facility] Comment on above: Order Comment: Crite ashley for reflexing a culture was met. Urine Culture and sensitivity will be performed. Performed By: #### 3 0965 #### [address] *BLOOD CULTUREon 12-12-2018 Bacteria identified Cx Nom (Bld) Clinical Report: (D) Specimen: BLOOD CULTURE Collected: 12/12/2018 20:45 Status: Final Last Updated: 12/18/2018 07:41 CULT RES (Final) No Growth Day [address] Normal [facility] Comment on above: Performed By: #### 3 0313 #### [address] 3D LUMBAR SPINE WO CONTRA STon 12-12-2018 CT 3D LUMBAR SPINE WO CONTRAST [facility] Department of Radiology [address] [place] [id number] == Patient Name: HEIDI PALMER : 1940 Sex: F Age: Race: White Pt. [facility] Patient Status: I Ordered Date: 12/12/2018 9:00:00 [...] findings. Electronically signed by:Phillip Clements. Transcribed by: [email or web address], User Resident: TRICE DOHERTY Electronically Signed by: PHILLIP CLEMENTS @ 12/13/2018 01:24 PM I personally read this/these film(s) with this resident Normal [facility] Comment on above: Order Comment: R/O F tha CTA HEADon 12-12-[address] [facility] Department of Radiology [address] [place] [phone] == Patient Name: HEIDI PALMER : 1940 Sex: F Age: Race: White Pt. [facility]: [facility] Patient Status: I Ordered Date: 12/12/2018 8:55:00 [...] findings. Electronically signed by:Phillip Clements. Transcribed by: [email or web address], User Resident: ELI GONZALES Electronically Signed by: PHILLIP CLEMENTS @ 12/13/2018 08:31 AM I personally read this/these film(s) with this resident Normal [facility] Comment on above: Order Comment: R/O C VA CTA NECKon 12-12-[address] [facility] Department of Radiology [address] [place] [phone] == Patient Name: HEIDI PALMER : 1940 Sex: F Age: Race: White Pt. [facility]: [facility] Patient Status: I Ordered Date: 12/12/2018 8:55:00 [...] findings. Electronically signed by:Phillip Clements. Transcribed by: [email or web address], User Resident: ELI GONZALES Electronically Signed by: PHILLIP CLEMENTS @ 12/13/2018 08:31 AM I personally read this/these film(s) with this resident Normal [facility] Vital Signs Date Time Vital Sign Value Performing Clinician Facility 01-22-2025 11:35-0400 Body height 165.1 cm José Antonio Hills RAT [employer]ER[employer]DIRECTOR OF EVENTS Work Phone: [facility] 01-22-2025 11:35-0400 Body mass index (BMI) [Ratio] 26.63 kg/m2 José Antonio Hills RAT [employer]ENTS Work Phone: [facility] 01-22-2025 11:35-0400 Body weight 72.58 kg José Antonio Hills RAT [employer]ENTS Work Phone: [facility] 01-22-2025 11:35-0400 Diastolic blood pressure 62 mm[Hg] José Antonio Hills RAT [employer]ER[employer]DIRECT[employer] OF EVENTS Work Phone: [facility] 01-22-2025 11:35-0400 Heart rate 64 /min José Antonio Hills RAT [employer] OF EVENTS Work Phone: [facility] 01-22-2025 11:35-0400 Systolic blood pressure 130 mm[Hg] José Antonio Hills RAT [employer]EDER[employer]DIRECTOR OF EVENTS Work Phone: [facility] 12-20-2024 11:33-0500 Body height 165.1 cm José Antonio Hills RAT [employer]ER[employer]DIRECTOR OF EVENTS Work Phone: [facility] 12-20-2024 11:33-0500 Body mass index (BMI) [Ratio] 26.29 kg/m2 José Antonio Hills RAT [employer]DIRECTOR OF EVENTS Work Phone: [facility] 12-20-2024 11:33-0500 Body weight 71.67 kg José Antonio Hills RAT [employer]EDER[employer]DIRECTOR OF EVENTS Work Phone: [facility] 12-20-2024 11:33-0500 Diastolic blood pressure 64 mm[Hg] José Antonio Hills RAT [employer]ER-DIRECTOR OF EVENTS Work Phone: [facility] 12-20-2024 11:33-0500 Heart rate 66 /min José Antonio Hills RAT [employer]EDER[employer]DIRECTOR OF EVENTS Work Phone: [facility] 12-20-2024 11:33-0500 Systolic blood pressure 112 mm[Hg] José Antonio Hills RAT [employer]ER[employer]DIRECTOR OF EVENTS Work Phone: [facility] 12-13-2024 12:56-0500 Body height 165.1 cm Mica Hook MD Work Phone: [facility] 12-13-2024 12:56-0500 Body mass index (BMI) [Ratio] 25.6 kg/m2 Mica Hook MD Work Phone: [facility] 12-13-2024 12:56-0500 Body temperature 97.7 [degF] Mica Hook MD Work Phone: [facility] 12-13-2024 12:56-0500 Body weight 69.85 kg Mica Hook MD Work Phone: [facility] 12-13-2024 12:56-0500 Diastolic blood pressure 69 mm[Hg] Mica Hook MD Work Phone: [facility] 12-13-2024 12:56-0500 Heart rate 69 /min Mica Hook MD Work Phone: [facility] 12-13-2024 12:56-0500 Respiratory rate 20 /min Mica Hook MD Work Phone: [facility] 12-13-2024 12:56-0500 SaO2% (BldA) [Mass fraction] 97 % Mica Hook MD Work Phone: [facility] 12-13-2024 12:56-0500 Systolic blood pressure 117 mm[Hg] Mica Hook MD Work Phone: [facility] 12-06-2024 11:18-0500 Body height 165.1 cm [facility] 12-06-2024 11:18-0500 Body mass index (BMI) [Ratio] 26 kg/m2 [facility] 12-06-2024 11:18-0500 Body weight 71.01 kg [facility] 12-06-2024 11:18-0500 Diastolic blood pressure 57 mm[Hg] [facility] 12-06-2024 11:18-0500 Heart rate 72 /min [facility] 12-06-2024 11:18-0500 Respiratory rate 18 /min [facility] 12-06-2024 11:18-0500 SaO2% (BldA) [Mass fraction] 98 % [facility] 12-06-2024 11:18-0500 Systolic blood pressure 121 mm[Hg] [facility] 09-08-2024 08:48-0400 Body height 165.1 cm MD Mica Hook Work Phone: [facility] 09-08-2024 08:48-0400 Body mass index (BMI) [Ratio] 25.4 kg/m2 MD Mica Hook Work Phone: [facility] 09-08-2024 08:48-0400 Body weight 69.54 kg MD Mica Hook Work Phone: [facility] 09-08-2024 08:48-0400 Diastolic blood pressure 71 mm[Hg] MD Mica Hook Work Phone: [facility] 09-08-2024 08:48-0400 Heart rate 66 /min MD Mica Hook Work Phone: [facility] 09-08-2024 08:48-0400 Respiratory rate 18 /min MD Mica Hook Work Phone: [facility] 09-08-2024 08:48-0400 SaO2% (BldA) [Mass fraction] 98 % MD Mica Hook Work Phone: [facility] 09-08-2024 08:48-0400 Systolic blood pressure 107 mm[Hg] MD Mica Hook Work Phone: [facility] 09-04-2024 13:44-0400 Body mass index (BMI) [Ratio] 24.7 kg/m2 MD Mica Hook Work Phone: [facility] 09-04-2024 13:44-0400 Diastolic blood pressure 62 mm[Hg] MD Mica Hook Work Phone: [facility] 09-04-2024 13:44-0400 Systolic blood pressure 100 mm[Hg] MD Mica Hook Work Phone: [facility] 09-04-2024 13:31-0400 Body height 165.1 cm MD Mica Hook Work Phone: [facility] 09-04-2024 13:31-0400 Body weight 67.58 kg MD Mica Hook Work Phone: [facility] 09-04-2024 13:31-0400 Heart rate 65 /min MD Mica Hook Work Phone: [facility] 07-13-2024 11:10-0400 Body height 165.1 cm Yusuf Mcdermott DO Work Phone: [facility] 07-13-2024 11:10-0400 Body mass index (BMI) [Ratio] 24.3 kg/m2 Yusuf Mcdermott DO Work Phone: [facility] 07-13-2024 11:10-0400 Body weight 66.22 kg Yusuf Mcdermott DO Work Phone: [facility] 07-13-2024 11:10-0400 Diastolic blood pressure 50 mm[Hg] Yusuf Mcdermott DO Work Phone: [facility] 07-13-2024 11:10-0400 Heart rate 64 /min Yusuf Mcdermott DO Work Phone: [facility] 07-13-2024 11:10-0400 Systolic blood pressure 112 mm[Hg] Yusuf Mcdermott DO Work Phone: [facility] 06-30-2024 13:00-0400 Body temperature 98 [degF] MD Mica Hook Work Phone: [facility] 06-30-2024 13:00-0400 Diastolic blood pressure 60 mm[Hg] MD Mica Hook Work Phone: [facility] 06-30-2024 13:00-0400 Heart rate 73 /min MD Mica Hook Work Phone: [facility] 06-30-2024 13:00-0400 Respiratory rate 20 /min MD Mica Hook Work Phone: [facility] 06-30-2024 13:00-0400 SaO2% (BldA) [Mass fraction] 97 % MD Mica Hook Work Phone: [facility] 06-30-2024 13:00-0400 Systolic blood pressure 125 mm[Hg] MD Mica Hook Work Phone: [facility] 06-30-2024 06:00-0400 Body weight 68.9 kg MD Mica Hook Work Phone: [facility] 06-29-2024 14:37-0400 Body height 165.1 cm MD Mica Hook Work Phone: [facility] 06-29-2024 04:35-0400 Inhaled oxygen flow rate 2 L/min MD Mica Hook Work Phone: [facility] 06-09-2024 10:53-0400 Body height 157.48 cm MD Mica Hook Work Phone: [facility] 06-09-2024 10:53-0400 Body mass index (BMI) [Ratio] 25.9 kg/m2 MD Mica Hook Work Phone: [facility] 06-09-2024 10:53-0400 Body temperature 97.6 [degF] MD Mica Hook Work Phone: [facility] 06-09-2024 10:53-0400 Body weight 64.41 kg MD Mica Hook Work Phone: [facility] 06-09-2024 10:53-0400 Diastolic blood pressure 76 mm[Hg] MD Mica Hook Work Phone: [facility] 06-09-2024 10:53-0400 Heart rate 62 /min MD Mica Hook Work Phone: [facility] 06-09-2024 10:53-0400 Respiratory rate 16 /min MD Mica Hook Work Phone: [facility] 06-09-2024 10:53-0400 SaO2% (BldA) [Mass fraction] 96 % MD Mica Hook Work Phone: [facility] 06-09-2024 10:53-0400 Systolic blood pressure 153 mm[Hg] MD Mica Hook Work Phone: [facility] 06-07-2024 11:20-0400 Body height 157.48 cm [facility] 06-07-2024 11:20-0400 Body mass index (BMI) [Ratio] 26 kg/m2 [facility] 06-07-2024 11:20-0400 Body weight 64.66 kg [facility] 06-07-2024 11:20-0400 Diastolic blood pressure 67 mm[Hg] [facility] 06-07-2024 11:20-0400 Heart rate 61 /min [facility] 06-07-2024 11:20-0400 Respiratory rate 18 /min [facility] 06-07-2024 11:20-0400 SaO2% (BldA) [Mass fraction] 97 % [facility] 06-07-2024 11:20-0400 Systolic blood pressure 148 mm[Hg] [facility] 03-07-2024 11:18-0400 Body height 157.48 cm MD Mica Hook Work Phone: [facility] 03-07-2024 11:18-0400 Body mass index (BMI) [Ratio] 25.1 kg/m2 MD Mica Hook Work Phone: [facility] 03-07-2024 11:18-0400 Body weight 62.31 kg MD Mica Hook Work Phone: [facility] 03-07-2024 11:18-0400 Diastolic blood pressure 70 mm[Hg] MD Mica Hook Work Phone: [facility] 03-07-2024 11:18-0400 Heart rate 62 /min MD Mica Hook Work Phone: [facility] 03-07-2024 11:18-0400 Respiratory rate 16 /min MD Mica Hook Work Phone: [facility] 03-07-2024 11:18-0400 SaO2% (BldA) [Mass fraction] 97 % MD Mica Hook Work Phone: [facility] 03-07-2024 11:18-0400 Systolic blood pressure 109 mm[Hg] MD Mica Hook Work Phone: [facility] 02-18-2024 13:57-0400 Body height 157.48 cm MD Mica Hook Work Phone: [facility] 02-18-2024 13:57-0400 Body mass index (BMI) [Ratio] 24.5 kg/m2 MD Mica Hook Work Phone: [facility] 02-18-2024 13:57-0400 Body weight 60.97 kg MD Mica Hook Work Phone: [facility] 02-18-2024 13:57-0400 Diastolic blood pressure 69 mm[Hg] MD Mica Hook Work Phone: [facility] 02-18-2024 13:57-0400 Heart rate 65 /min MD Mica Hook Work Phone: [facility] 02-18-2024 13:57-0400 Systolic blood pressure 122 mm[Hg] MD Mica Hook Work Phone: [facility] 01-26-2024 13:38-0400 Body height 165.1 cm Yusuf Hayward MD Work Phone: [facility] 01-26-2024 13:38-0400 Body mass index (BMI) [Ratio] 22.83 kg/m2 Yusuf Hayward MD Work Phone: [facility] 01-26-2024 13:38-0400 Body weight 62.23 kg Yusuf Hayward MD Work Phone: [facility] 01-26-2024 13:38-0400 Diastolic blood pressure 80 mm[Hg] Yusuf Hayward MD Work Phone: [facility] 01-26-2024 13:38-0400 Heart rate 64 /min Yusuf Hayward MD Work Phone: [facility] 01-26-2024 13:38-0400 Systolic blood pressure 120 mm[Hg] Yusuf Hayward MD Work Phone: [facility] 01-17-2024 11:54-0400 Body height 157.48 cm MD Mica Hook Work Phone: [facility] 01-17-2024 11:54-0400 Body mass index (BMI) [Ratio] 25 kg/m2 MD Mica Hook Work Phone: [facility] 01-17-2024 11:54-0400 Body weight 62.14 kg MD Mica Hook Work Phone: [facility] 01-17-2024 11:54-0400 Diastolic blood pressure 81 mm[Hg] MD Mica Hook Work Phone: [facility] 01-17-2024 11:54-0400 Heart rate 59 /min MD Mica Hook Work Phone: [facility] 01-17-2024 11:54-0400 Respiratory rate 18 /min MD Mica Hook Work Phone: [facility] 01-17-2024 11:54-0400 SaO2% (BldA) [Mass fraction] 97 % MD Mica Hook Work Phone: [facility] 01-17-2024 11:54-0400 Systolic blood pressure 126 mm[Hg] MD Mica Hook Work Phone: [facility] 12-08-2023 11:20-0500 Body height 157.48 cm MD Mica Hook Work Phone: [facility] 12-08-2023 11:20-0500 Body mass index (BMI) [Ratio] 29.2 kg/m2 MD Mica Hook Work Phone: [facility] 12-08-2023 11:20-0500 Body temperature 97 [degF] MD Mica Hook Work Phone: [facility] 12-08-2023 11:20-0500 Body weight 72.57 kg MD Mica Hook Work Phone: [facility] 12-08-2023 11:20-0500 Diastolic blood pressure 70 mm[Hg] MD Mica Hook Work Phone: [facility] 12-08-2023 11:20-0500 Heart rate 64 /min MD Mica Hook Work Phone: [facility] 12-08-2023 11:20-0500 Respiratory rate 16 /min MD Mica Hook Work Phone: [facility] 12-08-2023 11:20-0500 SaO2% (BldA) [Mass fraction] 98 % MD Mica Hook Work Phone: [facility] 12-08-2023 11:20-0500 Systolic blood pressure 140 mm[Hg] MD Mica Hook Work Phone: [facility] 11-18-2023 12:45-0500 Body height 158.75 cm Norma Scally Other [facility] 11-18-2023 12:45-0500 Body mass index (BMI) [Ratio] 26.87 kg/m2 Norma Scally Other [employer] Other 11-18-2023 12:45-0500 Body weight 67.72 kg Norma Scally Other [facility] 11-18-2023 12:45-0500 Diastolic blood pressure 77 mm[Hg] Norma Scally Other [facility] 11-18-2023 12:45-0500 Respiratory rate 16 /min Norma Scally Other [employer] Other 11-18-2023 12:45-0500 SaO2% (BldA) [Mass fraction] 97 % Norma Scally Other [employer] [email or web address] Other 11-18-2023 12:45-0500 Systolic blood pressure 141 mm[Hg] Norma Scally Other [facility] 11-17-2023 11:31-0500 Body temperature 97.8 [degF] MD Mica Hook Work Phone: [facility] 11-17-2023 11:31-0500 Diastolic blood pressure 76 mm[Hg] MD Mica Hook Work Phone: [facility] 11-17-2023 11:31-0500 Heart rate 64 /min MD Mica Hook Work Phone: [facility] 11-17-2023 11:31-0500 Respiratory rate 20 /min MD Mica Hook Work Phone: [facility] 11-17-2023 11:31-0500 SaO2% (BldA) [Mass fraction] 98 % MD Mica Hook Work Phone: [facility] 11-17-2023 11:31-0500 Systolic blood pressure 128 mm[Hg] MD Mica Hook Work Phone: [facility] 11-09-2023 14:00-0500 Body height 158.75 cm Mica Hook Other [facility] 11-09-2023 14:00-0500 Body mass index (BMI) [Ratio] 25.47 kg/m2 Mica Hook Other [facility] [email or web address] Other 11-09-2023 14:00-0500 Body weight 64.18 kg Mica Hook Other [facility] 11-09-2023 14:00-0500 Diastolic blood pressure 77 mm[Hg] Mica Hook Other [facility] 11-09-2023 14:00-0500 Respiratory rate 16 /min Mica Hook Other [facility] [email or web address] Other 11-09-2023 14:00-0500 Systolic blood pressure 119 mm[Hg] Mica Hook Other [facility] 11-03-2023 12:37-0500 Body temperature 97.6 [degF] MD Mica Hook Work Phone: [facility] 11-03-2023 12:37-0500 Diastolic blood pressure 77 mm[Hg] MD Mica Hook Work Phone: [facility] 11-03-2023 12:37-0500 Heart rate 56 /min MD Mica Hook Work Phone: [facility] 11-03-2023 12:37-0500 Respiratory rate 16 /min MD Mica Hook Work Phone: [facility] 11-03-2023 12:37-0500 SaO2% (BldA) [Mass fraction] 93 % MD Mica Hook Work Phone: [facility] 11-03-2023 12:37-0500 Systolic blood pressure 125 mm[Hg] MD Mica Hook Work Phone: [facility] 11-03-2023 07:35-0500 Body height 157.48 cm MD Mica Hook Work Phone: [facility] 10-31-2023 04:30-0500 Body weight 69 kg MD Mica Hook Work Phone: [facility] 10-15-2023 13:04-0500 Body temperature 97.5 [degF] MD Mica Hook Work Phone: [facility] 10-15-2023 13:04-0500 Diastolic blood pressure 74 mm[Hg] MD Mica Hook Work Phone: [facility] 10-15-2023 13:04-0500 Heart rate 67 /min MD Mica Hook Work Phone: [facility] 10-15-2023 13:04-0500 Respiratory rate 18 /min MD Mica Hook Work Phone: [facility] 10-15-2023 13:04-0500 SaO2% (BldA) [Mass fraction] 100 % MD Mica Hook Work Phone: [facility] 10-15-2023 13:04-0500 Systolic blood pressure 135 mm[Hg] MD Mica Hook Work Phone: [facility] 10-15-2023 06:17-0500 Body weight 69.4 kg MD Mica Hook Work Phone: [facility] 10-13-2023 15:36-0500 Inhaled oxygen flow rate 1 L/min MD Mica Hook Work Phone: [facility] 10-12-2023 13:13-0500 Body height 157.48 cm MD Mica Hook Work Phone: [facility] 10-12-2023 12:33-0500 Body mass index (BMI) [Ratio] 27.1 kg/m2 MD Mica Hook Work Phone: [facility] 10-11-2023 17:28-0500 Inhaled oxygen flow rate 2 L/min MD Mica Hook Work Phone: [facility] 10-11-2023 17:26-0500 Diastolic blood pressure 70 mm[Hg] MD Mica Hoko Work Phone: [facility] 10-11-2023 17:26-0500 Heart rate 78 /min MD Mica Hook Work Phone: [facility] 10-11-2023 17:26-0500 Respiratory rate 18 /min MD Mica Hook Work Phone: [facility] 10-11-2023 17:26-0500 SaO2% (BldA) [Mass fraction] 99 % MD Mica Hook Work Phone: [facility] 10-11-2023 17:26-0500 Systolic blood pressure 149 mm[Hg] MD Mica Hook Work Phone: [facility] 10-11-2023 17:19-0500 Body height 157.48 cm MD Mica Hook Work Phone: [facility] 10-11-2023 17:19-0500 Body temperature 98.1 [degF] MD Mica Hook Work Phone: [facility] 10-11-2023 17:19-0500 Body weight 67.2 kg MD Mica Hook Work Phone: [facility] 10-11-2023 11:00-0500 Body height 158.75 cm Norma Scally Other [facility] 10-11-2023 11:00-0500 Body mass index (BMI) [Ratio] 25.47 kg/m2 Norma Scally Other [employer] Other 10-11-2023 11:00-0500 Body weight 64.18 kg Norma Scally Other [facility] 10-11-2023 11:00-0500 Diastolic blood pressure 81 mm[Hg] Norma Scally Other [facility] 10-11-2023 11:00-0500 Respiratory rate 16 /min Norma Scally Other [facility] [email or web address] Other 10-11-2023 11:00-0500 SaO2% (BldA) [Mass fraction] 96 % Norma Scally Other [facility] [email or web address] Other 10-11-2023 11:00-0500 Systolic blood pressure 131 mm[Hg] Norma Scally Other [facility] 07-19-2023 13:00-0400 Body height 162.56 cm Mica Hook Other [employer] Other 07-19-2023 13:00-0400 Body mass index (BMI) [Ratio] 23.38 kg/m2 Mica Hook Other [employer] Other 07-19-2023 13:00-0400 Body weight 61.78 kg Mica Hook Other [employer] Other 07-19-2023 13:00-0400 Diastolic blood pressure 77 mm[Hg] Mica Hook Other [employer] Other 07-19-2023 13:00-0400 Respiratory rate 12 /min Mica Hook Other [employer] Other 07-19-2023 13:00-0400 Systolic blood pressure 146 mm[Hg] Mica Hook Other [employer] Other 06-21-2023 13:45-0400 Body height 162.56 cm Mica Hook Other [employer] Other 06-21-2023 13:45-0400 Body mass index (BMI) [Ratio] 23.69 kg/m2 Mica Hook Other [employer] Other 06-21-2023 13:45-0400 Body weight 62.6 kg Mica Hook Other [employer] Other 06-21-2023 13:45-0400 Diastolic blood pressure 84 mm[Hg] Mica Hook Other [employer] Other 06-21-2023 13:45-0400 SaO2% (BldA) [Mass fraction] 95 % Mica Hook Other [employer] Other 06-21-2023 13:45-0400 Systolic blood pressure 140 mm[Hg] Mica Hook Other [employer] Other 01-14-2023 12:55-0500 Body height 165.1 cm Mica Hook Work Phone: [employer] DO Work Phone: 01-14-2023 12:55-0500 Body mass index (BMI) [Ratio] 23.46 kg/m2 Mica Hook Work Phone: [employer] DO Work Phone: 01-14-2023 12:55-0500 Body surface area Derived from formula 1.71 m2 Mica Hook Work Phone: [employer] DO Work Phone: 01-14-2023 12:55-0500 Body weight 63.96 kg Mica Hook Work Phone: [employer] DO Work Phone: 01-14-2023 12:55-0500 Diastolic blood pressure 70 mm[Hg] Mica Hook Work Phone: [employer] DO Work Phone: 01-14-2023 12:55-0500 Heart rate 58 /min Mica Hook [facility] [facility] DO Work Phone: 01-14-2023 12:55-0500 Systolic blood pressure 128 mm[Hg] Mica Hook Work [facility]: [facility] [employer] [facility] DO Work Phone: 11-23-2022 11:30-0500 Body height 162.56 cm Mica Hook Other [employer] Other 11-23-2022 11:30-0500 Body mass index (BMI) [Ratio] 24.03 kg/m2 Mica Hook Other [employer] Other 11-23-2022 11:30-0500 Body weight 63.5 kg Mica Hook Other [employer] Other 11-23-2022 11:30-0500 Diastolic blood pressure 72 mm[Hg] Mica Hook Other [employer] Other 11-23-2022 11:30-0500 SaO2% (BldA) [Mass fraction] 97 % Mica Hook Other [employer] Other 11-23-2022 11:30-0500 Systolic blood pressure 122 mm[Hg] Mica Hook Other [employer] Other 01-16-2022 13:49-0500 Diastolic blood pressure 64 mm[Hg] Mica Hook Work Phone: [facility] 250 DO Work Phone: 01-16-2022 13:49-0500 Systolic blood pressure 98 mm[Hg] Mica Hook Work Phone: [facility] 250 DO Work Phone: 01-16-2022 13:44-0500 Body height 165.1 cm Mica Hook Work Phone: [facility] 250 DO Work Phone: 01-16-2022 13:44-0500 Body mass index (BMI) [Ratio] 23.8 kg/m2 Mica Hook Work Phone: [facility] 250 DO Work Phone: 01-16-2022 13:44-0500 Body surface area Derived from formula 1.72 m2 Mica Hook Work Phone: [facility] 250 DO Work Phone: 01-16-2022 13:44-0500 Body weight 64.86 kg Mica Hook Work Phone: [facility] 250 DO Work Phone: 01-16-2022 13:44-0500 Diastolic blood pressure 49 mm[Hg] Mica Hook Work Phone: [facility] 250 DO Work Phone: 01-16-2022 13:44-0500 Systolic blood pressure 97 mm[Hg] Mica Hook Work Phone: [facility] 250 DO Work Phone: Encounters Encounter Date Encounter Type Care Provider Facility Start: 01-24-2025 End: 01-24-2025 ambulatory Mica Hook MD Work Phone: [facility] Work Phone: Start: 01-24-2025 End: 01-24-2025 Patient encounter procedure Mica Hook MD Work Phone: [facility] Work Phone: Start: 01-22-2025 End: 01-22-2025 Patient encounter procedure Mica Hook MD Work Phone: [facility] [place] Work Phone: Start: 01-22-2025 End: 01-22-2025 ambulatory Mica Hook MD Work Phone: [facility] Work Phone: Start: 01-22-2025 End: 01-22-2025 Office outpatient visit 15 minutes José Antonio Hills [employer] Work Phone: [facility] Comment on above: Edema, unspecified t ype (Primary Dx); Coronary artery disease involving hopi heart, unspecified vessel or lesion type, unspecified whether angina present; Cardiomyopathy, ischemic; Essential hypertension, benign; Hyperlipidemia, unspecified hyperlipidemia type; BMI 26.0-26.9,adult; Localized swelling, mass and lump, left lower limb Start: 01-22-2025 End: 01-22-2025 ambulatory [facility] Start: 01-01-2025 Non-patient / Non-visit Mica Hook MD Work Phone: [facility] Work Phone: Start: 12-20-2024 End: 12-20-2024 Office outpatient visit 25 minutes José Antonio Hills [employer]AT BREED[employer]-DIRECTOR OF EVENTS Work Phone: [facility] Comment on above: Cardiomyopathy, isch emic (Primary Dx); Coronary artery disease involving hopi heart, unspecified vessel or lesion type, unspecified whether angina present; Coronary artery disease involving hopi coronary artery of hopi heart without angina pectoris; Essential hypertension, benign; Hyperlipidemia, unspecified hyperlipidemia type; Type 2 diabetes mellitus without complication, without long-term current use of insulin (Multi); Edema, unspecified type; Coronary artery disease, unspecified vessel or lesion type, unspecified whether angina present, unspecified whether hopi or transplanted heart; Dyspnea on exertion; BMI 26.0-26.9,adult Start: 12-20-2024 End: 12-20-2024 ambulatory [facility] Start: 12-13-2024 Registered Recurring Mica messina MD [facility] Work Phone: Start: 12-13-2024 End: 12-13-2024 ambulatory Mica Hook MD Work Phone: [facility] Work Phone: Start: 12-13-2024 End: 12-13-2024 Patient encounter procedure Mica Hook MD Work Phone: [facility] Work Phone: Start: 12-06-2024 End: 12-06-2024 ambulatory [facility] Work Phone: Start: 12-06-2024 End: 12-06-2024 Patient encounter procedure [facility] Work Phone: Start: 10-19-2024 End: 10-19-2024 Subsequent hospital visit by physician Jacquelyn Ibanez Sd Admin Room 1 [facility] Start: 10-19-2024 End: 10-19-2024 ambulatory [facility] Start: 10-09-2024 End: 10-09-2024 ambulatory [facility] Start: 09-08-2024 End: 09-08-2024 ambulatory MD Mica Hook Work Phone: [facility] Work Phone: Start: 09-08-2024 End: 09-08-2024 Patient encounter procedure MD Mica Hook Work Phone: [facility] Work Phone: Start: 09-06-2024 Non-patient / Non-visit MD Coral Hook Work Phone: [facility] Work Phone: Start: 09-05-2024 Non-patient / Non-visit MD Coral Hook Work Phone: [facility] Work Phone: Start: 09-04-2024 End: 09-04-2024 ambulatory MD Mica Hook Work Phone: [facility] Work Phone: Start: 09-04-2024 End: 09-04-2024 Patient encounter procedure MD Mica Hook Work Phone: [facility] Work Phone: Start: 07-13-2024 End: 07-13-2024 Transitional care manage srvc 14 day discharge Yusuf Mcdermott Work Phone: [facility] Comment on above: Coronary artery dise ase involving hopi heart, unspecified vessel or lesion type, unspecified whether angina present; Essential hypertension, benign; History of PTCA; Hyperlipidemia, unspecified hyperlipidemia type; Cardiomyopathy, ischemic; Edema, unspecified type; Type 2 diabetes mellitus without complication, without long-term current use of insulin (Multi); BMI 24.0-24.9, adult; Never smoked cigarettes; ACC/AHA stage C congestive heart failure due to ischemic cardiomyopathy (Multi) Start: 07-13-2024 End: 07-13-2024 ambulatory [facility] Start: 07-12-2024 End: 07-12-2024 ambulatory MD Mica Hook Work Phone: [facility] Work Phone: Start: 07-12-2024 End: 07-12-2024 Patient encounter procedure MD Mica Hook Work Phone: [facility] Work Phone: Start: 06-29-2024 Non-patient / Non-visit MD Coral Hook Work Phone: [facility] Work Phone: Start: 06-29-2024 Non-patient / Non-visit MD Coral Hook Work Phone[facility] Work Phone: Start: 06-29-2024 End: 06-30-2024 Evaluation and management of inpatient MD Mica Hook Work Phone: [facility] Work Phone: Start: 06-29-2024 End: 06-29-2024 ambulatory UNKNOWN PROVIDER Facility:[facility] Start: 06-29-2024 Non-patient / Non-visit MD Coral Hook Work Phone: [facility] Work Phone: Start: 06-16-2024 End: 06-16-2024 ambulatory JAS STUART Not Available Start: 06-09-2024 End: 06-09-2024 ambulatory MD Mica Hook Work Phone: [facility] Work Phone: Start: 06-09-2024 End: 06-09-2024 Patient encounter procedure [facility]ica [facility] Work [facility]: Start: 06-09-2024 Registered Recurring MD Mica Hook Work Phone: [facility] Work Phone: Start: 06-07-2024 End: 06-07-2024 ambulatory [facility] Work Phone: Start: 06-07-2024 End: 06-07-2024 Patient encounter procedure [facility] Work Phone: Start: 04-19-2024 End: 04-19-2024 ambulatory [facility] Work Phone: Start: 04-19-2024 End: 04-19-2024 Patient encounter procedure [facility] Work Phone: Start: 04-10-2024 End: 04-10-2024 ambulatory MD Mica Hook Work Phone: [facility] Work Phone: Start: 04-10-2024 End: 04-10-2024 Patient encounter procedure MD Mica Hook Work Phone: [facility] Start: 03-23-2024 Non-patient / Non-visit MD Coral Hook Work Phone: [facility] Work Phone: Start: 03-07-2024 End: 03-07-2024 ambulatory MD Mica Hook Work Phone: [facility] Work Phone: Start: 03-07-2024 End: 03-07-2024 Patient encounter procedure MD Mica Hook Work Phone: [facility] Work Phone: Start: 02-18-2024 End: 02-18-2024 ambulatory MD Mica Hook Work Phone: [facility] Work Phone: Start: 02-18-2024 End: 02-18-2024 Patient encounter procedure MD Mica Hook Work Phone: [facility] Work Phone: Start: 01-26-2024 End: 01-26-2024 Office outpatient visit 25 minutes Yusuf Hayward MD Work Phone: [facility] Comment on above: Coronary artery dise ase involving hopi coronary artery of hopi heart without angina pectoris (Primary Dx); Essential hypertension, benign; History of PTCA; Mixed hyperlipidemia; Edema, unspecified type; Never smoked cigarettes Start: 01-17-2024 End: 01-17-2024 Patient encounter procedure MD Mica Hook Work Phone: [facility] Work Phone: Start: 01-10-2024 End: 01-10-2024 Patient encounter procedure MD Mica Hook Work Phone: [facility] Work Phone: Start: 01-10-2024 End: 01-10-2024 Patient encounter procedure MD Mica Hook Work Phone: [facility] [place] [facility] [facility] Start: 12-24-2023 Non-patient / Non-visit MD Coral Hook Work Phone: [facility] [employer] Work Phone: Start: 12-17-2023 End: 12-17-2023 ambulatory Mica Hook Other [facility] [email or web address] Other Start: 12-17-2023 Telephone encounter Mica Hook [facility] Start: 12-15-2023 Nursing evaluation o f patient and report [facility] Start: 12-15-2023 End: 12-15-2023 ambulatory MD Mica Hook Work Phone: [facility] [email or web address] Other Start: 12-15-2023 End: 12-15-2023 Discharged Recurring MD Mica Hook Work Phone: [facility] Work Phone: Start: 12-13-2023 End: 12-13-2023 ambulatory Mica Hook Other [facility] [email or web address] Other Start: 12-13-2023 Telephone encounter Mica Hook [facility] Start: 12-08-2023 End: 12-08-2023 ambulatory MD Mica Hook Work Phone: [facility] Work Phone: Start: 12-08-2023 End: 12-08-2023 Patient encounter procedure MD Mica Hook [facility] Work [facility]: Start: 12-08-2023 Registered Recurring MD Mica Hook Work Phone: [facility] Work Phone: Start: 11-18-2023 Registered Recurring MD Mica Hook Work Phone: [facility] Work Phone: Start: 11-18-2023 (DM) Diabetes Norma Ga [facility] Start: 11-18-2023 End: 11-18-2023 ambulatory Norma Diaz Other [employer] Other Start: 11-18-2023 End: 11-18-2023 Patient encounter procedure MD Mica Hook Work Phone: [facility] Work Phone: Start: 11-16-2023 Postop follow up vis it related to original px Epi Olexa [facility] Start: 11-16-2023 End: 11-16-2023 ambulatory MD Mica Hook Work Phone: [facility] Work Phone: Start: 11-16-2023 End: 11-16-2023 Patient encounter procedure MD Mica Hook Work Phone: [facility] [place] [facility] [facility] Start: 11-09-2023 End: 11-09-2023 ambulatory Mica Hook Other [employer] Other Start: 11-09-2023 Office outpatient vi sit 25 minutes Mica Hook [facility] Start: 11-09-2023 End: 11-09-2023 Patient encounter procedure MD Mica Hook Work Phone: [facility] Work Phone: Start: 11-05-2023 End: 11-05-2023 ambulatory Mica Hook Other [employer] Other Start: 11-05-2023 Telephone encounter Mica Hook [facility] Start: 11-02-2023 End: 11-02-2023 ambulatory Mica Hook Other [employer] Other Start: 11-02-2023 Telephone encounter Mica Hook [facility] Start: 10-26-2023 End: 10-26-2023 ambulatory Mica Hook Other [employer] Other Start: 10-26-2023 Telephone encounter Mica Hook [facility] Start: 10-15-2023 End: 11-03-2023 Evaluation and management of inpatient MD Mica Hook Work Phone: [facility] Work Phone: Start: 10-11-2023 End: 10-15-2023 Evaluation and management of inpatient MD Mica Hook Work Phone: [facility] Work Phone: Start: 10-11-2023 End: 10-11-2023 ambulatory Norma Diaz Other [employer] Other Start: 10-11-2023 [facility] visit new patient Norma Pandey y [facility] Start: 10-11-2023 Registered Recurring MD Mica Hook Work Phone: [facility] Work Phone: Start: 10-11-2023 End: 10-11-2023 Patient encounter procedure MD Mica Hook Work Phone: [facility] Work Phone: Start: 10-07-2023 (Televisit) Televisit Mica Hook [facility] Start: 10-07-2023 End: 10-07-2023 ambulatory Mica Hook Other [employer] Other Start: 09-13-2023 End: 09-13-2023 ambulatory Mica Hook Other [employer] Other Start: 09-13-2023 Telephone encounter Mica Hook [facility] Start: 09-08-2023 End: 09-08-2023 ambulatory MD Mica Hook Work Phone: [facility] Work Phone: Start: 09-08-2023 End: 09-08-2023 Departed Referred MD Mica Hook Work Phone: [facility] [place] Work Phone: Start: 08-19-2023 End: 08-19-2023 ambulatory Mica Hook Other [employer] Other Start: 08-19-2023 Telephone encounter Mica Monster [facility] Start: 08-05-2023 End: 08-05-2023 ambulatory Mica Hook Other [employer] Other Start: 08-05-2023 Telephone encounter Mica Hook [facility] Start: 07-26-2023 End: 07-26-2023 ambulatory Mica Monster Other [employer] Other Start: 07-26-2023 Telephone encounter Mica Hook [facility] Start: 07-19-2023 End: 07-19-2023 ambulatory Mica Hook Other [employer] Other Start: 07-19-2023 Office outpatient vi sit 15 minutes Mica Monster [facility] Start: 06-23-2023 End: 06-23-2023 ambulatory Mica Monster Other [employer] Other Start: 06-23-2023 Telephone encounter Mica Hook [facility] Start: 06-21-2023 End: 06-21-2023 ambulatory Mica Monster Other [employer] Other Start: 06-21-2023 Office outpatient vi sit 25 minutes Mica Hook [facility] Start: 05-18-2023 End: 05-18-2023 ambulatory Mica Hook Other [employer] Other Start: 05-18-2023 Telephone encounter Mica Hook [facility] Start: 02-17-2023 End: 02-17-2023 ambulatory Mica Hook Other [employer] Other Start: 02-17-2023 Telephone encounter Mica Hook [facility] Start: 02-16-2023 Postop follow up vis it related to original px Uma Calvey [facility] Start: 02-16-2023 End: 02-16-2023 ambulatory MD Mica Hook Work Phone: [facility] Work Phone: Start: 02-16-2023 End: 02-16-2023 Patient encounter procedure MD Mica Hook Work Phone: [facility] Start: 01-28-2023 End: 01-28-2023 ambulatory Uma Mccauley Other [employer] Other Start: 01-28-2023 Telephone encounter Uma Mccauley [facility] Start: 01-14-2023 Office outpatient vi sit 25 minutes Mica Hook Work Phone: [facility] 250 DO Work Phone: Start: 01-14-[address] Yusuf Hayward II Facility: Start: 01-06-2023 Postop follow up vis it related to original px Uma Calvey [facility] Start: 01-06-2023 End: 01-06-2023 ambulatory MD Mica Hook Work Phone: [facility] Work Phone: Start: 01-06-2023 End: 01-06-2023 Patient encounter procedure MD Mica Hook Work Phone: [facility] [place] [facility] [facility] Start: 12-23-2022 End: 12-23-2022 ambulatory Uma Mccauley Other [employer] Other Start: 12-23-2022 Telephone encounter Uma Mccauley [facility] Start: 12-22-2022 End: 12-22-2022 ambulatory Uma Mccauley Other [employer] Other Start: 12-22-2022 [facility] visit new patient Uma Barker y [facility] Start: 12-18-2022 End: 12-18-[address] MICA HOOK Facility:[facility] Start: 11-26-2022 End: 11-26-2022 ambulatory Mica Hook Other [employer] Other Start: 11-26-2022 Telephone encounter Mica Hook [facility] Start: 11-23-2022 Office outpatient vi sit 25 minutes Mica Hook [facility] Start: 11-23-2022 End: 11-24-[address] MICA HOOK Facility:[facility] Start: 10-22-2022 Rx [facility] Work Phone: Start: 03-02-2022 End: 03-03-[address] MICA HOOK Facility:[facility] Start: 02-25-2022 End: 02-25-[address] MICA HOOK Facility:[facility] Start: 02-25-2022 End: 02-25-[address] MICA HOOK Facility:[facility] Start: 01-16-2022 Office outpatient vi sit 15 minutes Mica Hook Work Phone: [facility] 250 DO Work Phone: Start: 01-16-[address] Yusuf Hayward II Facility: Start: 01-03-2022 Rx Renewal Yusuf warren MD Work Phone: [facility] 250 DO Work Phone: Start: 08-14-2021 Rx Renewal Yusuf warren MD Work Phone: [facility] 250 DO Work Phone: Start: 07-16-2021 Adult health examination Jemma Hook Other [facility] [email or web address] Other Start: 12-13-2018 End: 12-16-2018 Evaluation and management of inpatient MICA MONSTER Facility:[facility] Procedures Date Procedure Procedure Detail Performing Clinician Start: 01-22-2025 Duplex scan of lower limb veins Mica Hook MD Work Phone: Start: 12-07-2024 CT of chest without contrast Mica Hook MD Work Phone: Start: 10-19-2024 Card blood pool gate d planar 1 study rest/stress Yusuf Mcdermott DO Work Phone: Start: 06-29-2024 CL Closure Device Placement 0 MD Mica Hook Work Phone: Start: 06-29-2024 CL LHC & COR Angio MD Kvng Hook Work Phone: Start: 06-29-2024 CL PCI AMI 1st Vesse l LAD MARIANELA MD Mica Hook Work Phone: Start: 06-29-2024 CL Stent 1st [...] elbow MD Mica Hook Work Phone: Start: 10-12-2023 Plain X-ray of right hip MD Mica Hook Work Phone: Start: 10-12-2023 Urine culture MD Mica Hook Work Phone: Start: 10-12-2023 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 MD Mica Hook Work Phone: Start: 10-11-2023 CT of thorax with contrast MD Mica Hook Work Phone: Start: 10-11-2023 CT cervical spine without contrast MD Mica Hook Work Phone: [...] Hook Work Phone: Start: 12-13-2018 MEASUREMENT OF PROPERTY PRESERVATION SPECIALIST E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, INSPECTOR GENERAL APPROACH ANITA RDZ Biopsy of breast Yusuf lucio MD Work Phone: Destructive procedure Dany Hayward MD Work Phone: H/O: surgery History of thyro id surgery MD Mica Hook Work Phone: History of cataract extraction Hx of cataract surgery MD Mica Hook Work Phone: Comment on above: 08-10-2024 right eye , left eye 07-24-2024 History of percutane ous transluminal coronary angioplasty History of PTCA Yusuf Hayward MD Work Phone: History of percutane ous transluminal coronary angioplasty History of PTCA Yuusf Hayward MD Work Phone: History of percutane ous transluminal coronary angioplasty History of PTCA Yusuf Mcdermott DO Work Phone: Operation on thyroid gland Yusuf Hayward MD Work Phone: Operative procedure on ankle Yusuf Hayward MD Work Phone: Surgical procedure o n thorax Yusuf Hayward MD Work Phone: Total colonoscopy Yusuf Salas MD Work Phone: Plan of Treatment Date Care Activity Detail Author Start: 12-18-2032 DTaP/Tdap/Td Vaccine s (2 - Td or Tdap) DTaP/Tdap/Td Vaccines (2 - Td or Tdap) [facility] Start: 12-18-2032 DTaP/Tdap/Td Vaccine s (3 - Td or Tdap) DTaP/Tdap/Td Vaccines (3 - Td or Tdap) [facility] Start: 07-13-2025 Glaucoma screening Diabetes: R etinopathy Screening [facility] Start: 06-30-2025 Echocardiography Echocardiogram [facility] Start: 02-26-2025 End: 02-26-2025 Patient encounter procedure 02/26/2025 1:30 PM EDT Office Visit [facility] [address] [place] [address] José Antonio Hills, RAT BREEDER-DIRECTOR OF EVENTS [address] [place] [address] [facility] Start: 01-24-2025 End: 01-24-2025 Patient encounter procedure 01/24/2025 11:30 AM EDT Office Visit [facility] [address] [place] [address] Yusuf Mcdermott, [address] [place] [address] [facility] Start: 01-22-2025 End: 01-22-2027 Vascular US Lower Extremity Venous Duplex Left Vascular US Lower Extremity Venous Duplex Left Vascular Ultrasound Routine Edema, unspecified type Localized swelling, mass and lump, left lower limb Expected: 01/22/2025 (Approximate), Expires: 01/22/2027 [facility] Service Area Work Phone: Comment on above: Expected: 01/22/2025 (Approximate), Expires: 01/22/2027 Start: 01-22-2025 Duplex scan of lower limb veins US venous duplex LE LT [facility] Start: 01-22-2025 US Lower extremity v ein - left [facility] Start: 01-22-2025 End: 01-22-2025 Patient encounter procedure 01/22/2025 11:30 AM EDT Office Visit [place] [id number] [place] [phone] José Antonio Hills, RAT BREEDER-DIRECTOR OF EVENTS [address] [facility] [address] [place] [address] [facility] Start: 12-20-2024 End: 12-20-2025 Basic metabolic 2000 panel - Serum or Plasma Basic Metabolic Panel Lab Routine Coronary artery disease involving hopi heart, unspecified vessel or lesion type, unspecified whether angina present Cardiomyopathy, ischemic Expected: 12/20/2024 (Approximate), Expires: 12/20/2025 [facility] Work Phone: Comment on above: Expected: 12/20/2024 (Approximate), Expires: 12/20/2025 Start: 12-20-2024 End: 12-20-2025 Lipid 1996 panel - Serum or Plasma Lipid Panel Lab Routine Coronary artery disease involving hopi heart, unspecified vessel or lesion type, unspecified whether angina present Hyperlipidemia, unspecified hyperlipidemia type Expected: 12/20/2024 (Approximate), Expires: 12/20/2025 [facility] Service Area Work Phone: Comment on above: Expected: 12/20/2024 (Approximate), Expires: 12/20/2025 Start: 12-20-2024 End: 12-20-2025 Natriuretic peptide B [Mass/volume] in Blood B-Type Natriuretic Peptide Lab Routine Cardiomyopathy, ischemic Dyspnea on exertion Expected: 12/20/2024 (Approximate), Expires: 12/20/2025 [facility] Work Phone: Comment on above: Expected: 12/20/2024 (Approximate), Expires: 12/20/2025 Start: 11-29-2024 End: 11-29-2024 Patient encounter procedure 11/29/2024 11:00 AM EST Office Visit [facility] [address] [place] [phone] José Antonio Hills, RAT BREEDER-DIRECTOR OF EVENTS [address] [facility] [place], [place] [id number] [facility] Start: 10-09-2024 End: 10-09-2024 Patient encounter procedure [facility] Start: 10-05-2024 End: 07-13-2025 NM Heart Wall motion and Ejection fraction NM heart blood pool ejection fraction wall motion (MUGA) Imaging Routine Coronary artery disease involving hopi heart, unspecified vessel or lesion type, unspecified whether angina present Cardiomyopathy, ischemic Expected: 10/05/2024, Expires: 07/13/2025 [facility] Service Area Work Phone: Comment on above: Expected: 10/05/2024 , Expires: 07/13/2025 Start: 07-13-2024 End: 07-13-2025 Basic metabolic 2000 panel - Serum or Plasma Basic Metabolic Panel Lab Routine Coronary artery disease involving hopi heart, unspecified vessel or lesion type, unspecified whether angina present Expected: 07/13/2024 (Approximate), Expires: 07/13/2025 [facility] Work Phone: Comment on above: Expected: 07/13/2024 (Approximate), Expires: 07/13/2025 Start: 07-13-2024 Glaucoma screening Diabetes: R etinopathy Screening [facility] Start: 07-13-2024 End: 07-13-2025 Natriuretic peptide B [Mass/volume] in Blood B-Type Natriuretic Peptide Lab Routine Coronary artery disease involving hopi heart, unspecified vessel or lesion type, unspecified whether angina present Edema, unspecified type ACC/AHA stage C congestive heart failure due to ischemic cardiomyopathy (Multi) Expected: 07/13/2024 (Approximate), Expires: 07/13/2025 [facility] Work Phone: Comment on above: Expected: 07/13/2024 (Approximate), Expires: 07/13/2025 Start: 07-09-2024 COVID-19 Vaccine () COVID-19 Vaccine () [facility] Start: 07-09-2024 COVID-19 Vaccine () COVID-19 Vaccine () [facility] Start: 07-09-2024 Influenza vaccination Influenza Vacc ine (#1) [facility] Start: 06-30-2024 [facility] Start: 06-29-2024 Dilation of Coronary Artery, Two Arteries with Four or More Drug-eluting Intraluminal Devices, Percutaneous Approach Dilation of Coronary Artery, Two Arteries with Four or More Drug-eluting Intraluminal Devices, Percutaneous Approach [facility] Start: 06-29-2024 Fluoroscopy of Left Heart using Low Osmolar Contrast Fluoroscopy of Left Heart using Low Osmolar Contrast [facility] Start: 06-29-2024 Fluoroscopy of Multi ple Coronary Arteries using Low Osmolar Contrast Fluoroscopy of Multiple Coronary Arteries using Low Osmolar Contrast [facility] Start: 06-29-2024 Measurement of Cardi ac Sampling and Pressure, Left Heart, Percutaneous Approach Measurement of Cardiac Sampling and Pressure, Left Heart, Percutaneous Approach [facility] Start: 06-29-2024 Consultation [facility] Start: 06-29-2024 Hospital admission [facility] Start: 06-29-2024 Referral to cardiac rehabilitation program [facility] Start: 06-29-2024 [facility] Start: 01-26-2024 FUV, Provider: Yusuf Hayward, Status: Pen, Time: 1:00 PM FUV, Provider: Yusuf Hayward, Status: Pen, Time: 1:00 PM -[facility] [address] DO Work Phone: Start: 12-08-2023 Patient referral [facility] Work Phone: Start: 10-26-2023 [facility] Start: 10-15-2023 Administration of prophylactic treatment [facility] Start: 10-15-2023 Hospital admission [facility] Start: 10-15-2023 Referral to clinical amusement equipment operator [facility] Start: 10-15-2023 [facility] Start: 10-13-2023 Referral to rehabili tation physician [facility] Start: 10-12-2023 Urine culture Urine Culture [facility] Start: 10-12-2023 Referral to oncologist [facility] Start: 10-12-2023 Blood chemistry [facility] Start: 10-12-2023 [facility] Start: 10-11-2023 Patient referral to dietitian [facility] Start: 10-11-2023 Hospital admission [facility] Start: 10-11-2023 End: 10-11-2023 Consultation [facility] Start: 10-11-2023 Physical therapy procedure [facility] Start: 10-11-2023 Referral to occupati onal therapist [facility] Start: 10-11-2023 [facility] Start: 10-11-2023 Replacement of Right Hip Joint, Femoral Surface with Metal Synthetic Substitute, Open Approach Replacement of Right Hip Joint, Femoral Surface with Metal Synthetic Substitute, Open Approach [facility] Start: 09-08-2023 Bacteria identified in Urine by Culture [facility] Start: 07-09-2023 COVID-19 Vaccine ( season) COVID-19 Vaccine () [facility] Start: 07-09-2023 Influenza vaccination Influenza Vacc ine (#1) [facility] Start: 04-27-2023 Glaucoma screening Diabetes: R etinopathy Screening [facility] Start: 01-15-2023 FUV, Provider: Yusuf Hayward, Status: Pen, Time: 1:10 PM FUV, Provider: Yusuf Hayward, Status: Pen, [facility]: [facility]:10 [facility] Work Phone: Start: 06-17-2022 Medicare Annual Well ness Visit Medicare Annual Wellness Visit (AWV) [facility] Start: 11-18-2021 FUV, Provider: Yusuf Hayward, Status: Pen, Time: 11:15 AM FUV, Provider: Yusuf Hayward, Status: Pen, Time: 11:15 AM [facility] 250 DO Work Phone: Start: 01-03-2018 Pneumococcal Vaccine : 65+ Years (2 - PPSV23 or PCV20) Pneumococcal Vaccine: 65+ Years (2 - PPSV23 or PCV20) [facility] Start: 08-20-2017 Zoster Vaccines (2 of 3) Zoste r Vaccines (2 of 3) [facility] Start: 2014 RSV High Risk: (Elde rly (60+) or Population) (1 - 1-dose 75+ series) RSV High Risk: (Elderly (60+) or Population) (1 - 1-dose 75+ series) [facility] Start: 1999 RSV patient s and/or patients aged 60+ years (1 - 1-dose 60+ series) RSV patients and/or patients aged 60+ years (1 - 1-dose 60+ series) [facility] Start: 1958 Urine screening for protein Diabetes: Urine Protein Screening [facility] Start: 1949 Diabetic foot examination Diabetes: Foot Exam [facility] Start: 1939 Annual wellness visit Welcome to Medicare Visit [facility] Start: 1939 Creatinine measurement Creatinine Le manuel [facility] Start: 1939 Hemoglobin A1c measurement Shari betes: Hemoglobin A1C [facility] Start: 1939 Lipid panel Lipid Panel [facility] Start: 1939 Medicare Annual Well ness Visit Medicare Annual Wellness Visit (AWV) [facility] Start: 1939 Potassium measurement Potassium Leve l [facility] Start: 1939 Screening for osteoporosis Bone Dens ity Scan [facility] Start: 1939 Thyroid stimulating hormone measurement TSH Level [facility] Start: 1939 Urine screening for protein Diabetes: Urine Protein Screening [facility] CT Chest WO contrast [facility] guided biopsy [facility] CT Unspecified body region F [facility] MG Breast - right Screening [facility] Patient Education [facility] Work Phone: Patient referral [facility] Work Phone: [facility] Immunizations Immunization Date Immunization Notes Care Provider Fa cili 09-04-2024 influenza, high dose seasonal, preservative-free MD Mica Hook Work Phone: [facility] 12-18-2022 diphtheria, tetanus toxoids and pertussis vaccine Mica Ernie Hook Work Phone: [place] [address] DO Work Phone: 12-18-2022 tetanus toxoid, redu cm diphtheria toxoid, and acellular pertussis vaccine, adsorbed Yusuf Hayward MD Work Phone: [facility] Work Phone: 05-29-2022 Moderna COVID-19 Vaccine 100 MCG/0.5ML Intramuscular Suspension Mica Hook Work Phone: [place] [address] DO Work Phone: 10-09-2021 Moderna COVID-19 Vaccine 100 MCG/0.5ML Intramuscular Suspension Mica Hook Work Phone: [place] [address] DO Work Phone: 09-17-2021 influenza virus vaccine, split virus (incl. purified surface antigen) Mica Hook Other [facility] [email or web address] Other 09-17-2021 influenza virus vaccine, unspecified formulation MD Mica Hook Work Phone: [facility] 09-08-2021 influenza, seasonal, injectable Mica Hook Work Phone: [place] [address] DO Work Phone: Comment on above: Series: 09-08-2021 influenza virus vaccine, unspecified formulation Yusuf Hayward MD Work Phone: [facility] Work Phone: 01-16-2021 Moderna COVID-19 Vaccine 100 MCG/0.5ML Intramuscular Suspension Yusuf Hayward MD Work Phone: [facility] 12-20-2020 Moderna COVID-19 Vaccine 100 MCG/0.5ML Intramuscular Suspension Yusuf Hayward MD Work Phone: [facility] 08-21-2020 influenza virus vaccine, split virus (incl. purified surface antigen) Mica Hook Other [facility] [email or web address] Other 08-21-2020 influenza virus vaccine, unspecified formulation MD Mica Hook Work Phone: [facility] 08-08-2020 influenza virus vaccine, unspecified formulation Yusuf Hayward MD Work Phone: [facility] [employer] [facility] Work Phone: 08-18-2018 influenza virus vaccine, split virus (incl. purified surface antigen) Mica Hook Other [facility] [email or web address] Other 08-18-2018 influenza virus vaccine, unspecified formulation MD Mica Hook Work Phone: [facility] 08-18-2018 Seasonal trivalent influenza vaccine, adjuvanted, preservative free Mica Hook Work Phone: [facility] [employer] [facility] Work Phone: 11-08-2017 pneumococcal conjuga te vaccine, 13 valent Yusfu Hayward MD Work Phone: [facility] 06-25-2017 influenza, high dose seasonal, preservative-free Mica Hook Work Phone: [facility] 06-25-2017 zoster vaccine, live Mica Hook Work Phone: [facility] 08-17-2014 tetanus and diphther ia toxoids, adsorbed, preservative free, for adult use (5 Lf of tetanus toxoid and 2 Lf of diphtheria toxoid) Mica Hook Other [facility] 08-24-2013 tetanus and diphther ia toxoids, adsorbed, preservative free, for adult use (5 Lf of tetanus toxoid and 2 Lf of diphtheria toxoid) Mica Hook Other [facility] 09-16-2005 pneumococcal polysaccharide vaccine, 23 valent Mica Hook Other [facility] Payers Date Payer Category Payer Self-pay [id number] 2023 Medicare (Managed Care) [facility] [id number] 2023 Unknown 2023 Medicare [id number] 1959 Medicare [id number] 1959 Unknown [id number] 1939 Unknown [id number] [id number]. 647 1939 Unknown [id number] [id number]. 593 1939 Unknown [id number] 2.840.1.091516.3.579.2. 593 1939 Unknown [id number] 2.0.1.691737.3.579.2. 593 1939 Unknown [id number] 2.16840.1.330066.3.579.2. 593 1939 Unknown [id number] 2.16.840.1.207960.3.579.2. 593 1939 Unknown [id number] 2.16840.1.382789.3.579.2. 356 1939 Unknown [id number] 2.16840.1.966294.3.579.2. 356 1939 Unknown [id number] 2.16.840.1.362530.3.579.2. 1259 1939 Unknown [id number] 2.16.840.1.421889.3.579.2. 732 1939 Unknown [id number] 2.16.840.1.299035.3.579.2. 1246 1939 Unknown [id number] 2.16.840.1.724561.3.579.2. 1246 1939 Unknown [id number] 2.16.840.1.820341.3.579.2. 124 1939 Unknown [id number] 2.16.840.1.072387.3.579.2. 1244 1939 Unknown [id number] 2.16.840.1.032452.3.579.2. 1244 1939 Unknown [id number] 2.16.840.1.970139.3.579.2. 1244 Unknown [facility] Health Claims [id number] Unknown [id number] Unknown [id number] [id number]. 531 Unknown [id number] 2.16.840.1.563917.3.579.2. 531 Unknown [id number] [id number]. 531 Social History Date Type Detail Facility Start: 01-26-2024 End: 01-22-2025 Alcohol use Alcohol use -[facility] [address] DO Work Phone: Start: 01-26-2024 End: 01-22-2025 Sex Assigned At [facility] [employer] Other Start: 05-15-2019 End: 06-29-2024 Tobacco smoking status NHIS Never smoked tobacco (finding) [facility] Start: 1940 Sex Assigned At Female F [facility] Start: 01-26-2024 Tobacco use and exposure Smokeless tobacco non-user [facility] Work Phone: Start: 01-26-2024 End: 01-22-2025 Alcohol intake Current drinker of alcohol (finding) [facility] Work Phone: Start: 01-26-2024 Alcohol Comment monthly [facility] Work Phone: Start: 1940 Sex Assigned At Not on file U [facility] Work Phone: Start: 01-16-2024 End: 01-22-2025 Exposure to SARS-CoV-2 (event) Not sure [facility] Start: 12-06-2024 End: 01-24-2025 Sex Female (finding) [facility] Medical Equipment Procedure Code Equipment Code Equipment Origin al Text Equipment Identifier Dates Arthroplasty, hip, bipolar Metallic femoral head prosthesis [id number] FDA Start: 10-12-2023 Arthroplasty, hip, bipolar Coated hip femur prosthesis, modular ()[id number] FDA Start: 10-12-2023 Start: 11-18-2023 Blood Sugar [...] 30 gauge misc Start: 01-04-2024 CL STENT MOSES FRONTIER 2.5 X 08 FDA Start: 06-29-2024 CL STENT MOSES FRONTIER 2.5 X 12 FDA Start: 06-29-2024 CL STENT MOSES FRONTIER 2.5 X 15 FDA Start: 06-29-2024 CL STENT MOSES FRONTIER 3.0 X 15 FDA Start: 06-29-2024 Femoral artery closure plug/patch, synthetic polymer ()[id number] FDA Start: 06-29-2024 Blood Sugar Diagnostic (Onetouch Ultra Test) strip Start: 01-04-2024 Lancets (Onetouc h Delica Plus Lancet) 30 gauge misc Start: 01-04-2024 CL STENT MOSES FRONTIER 2.5 X 08 FDA Start: 06-29-2024 CL STENT MOSES FRONTIER 2.5 X 12 FDA Start: 06-29-2024 CL STENT MOSES FRONTIER 2.5 X 15 FDA Start: 06-29-2024 CL STENT MOSES FRONTIER 3.0 X 15 FDA Start: 06-29-2024 Blood Sugar Diagnostic (Onetouch Ultra Test) strip Start: 01-04-2024 Lancets (Onetouc h Delica Plus Lancet) 30 gauge misc Start: 01-04-2024 CL STENT MOSES FRONTIER 2.5 X 08 FDA Start: 06-29-2024 CL STENT MOSES FRONTIER 2.5 X 12 FDA Start: 06-29-2024 CL STENT MOSES FRONTIER 2.5 X 15 FDA Start: 06-29-2024 CL STENT MOSES FRONTIER 3.0 X 15 FDA Start: 06-29-2024 Blood Sugar Diagnostic (Onetouch Ultra Test) strip Start: 01-04-2024 Lancets (Onetouc h Delica Plus Lancet) 30 gauge misc Start: 01-04-2024 CL STENT MOSES FRONTIER 2.5 X 08 FDA Start: 06-29-2024 CL STENT MOSES FRONTIER 2.5 X 12 FDA Start: 06-29-2024 CL STENT MOSES FRONTIER 2.5 X 15 FDA Start: 06-29-2024 CL STENT MOSES FRONTIER 3.0 X 15 FDA Start: 06-29-2024 Blood Sugar Diagnostic (Onetouch Ultra Test) strip Start: 01-04-2024 Lancets (Onetouc h Delica Plus Lancet) 30 gauge misc Start: 01-04-2024 CL STENT MOSES FRONTIER 2.5 X 08 FDA Start: 06-29-2024 CL STENT MOSES FRONTIER 2.5 X 12 FDA Start: 06-29-2024 CL STENT MOSES FRONTIER 2.5 X 15 FDA Start: 06-29-2024 CL STENT MOSES FRONTIER 3.0 X 15 FDA Start: 06-29-2024 Blood Sugar Diagnostic (Onetouch Ultra Test) strip Start: 01-04-2024 Lancets (Onetouc h Delica Plus Lancet) 30 gauge misc Start: 01-04-2024 CL STENT MOSES FRONTIER 2.5 X 08 FDA Start: 06-29-2024 CL STENT MOSES FRONTIER 2.5 X 12 FDA Start: 06-29-2024 CL STENT MOSES FRONTIER 2.5 X 15 FDA Start: 06-29-2024 CL STENT MOSES FRONTIER 3.0 X 15 FDA Start: 06-29-2024 Blood Sugar Diagnostic (Onetouch Ultra Test) strip Start: 01-04-2024 Lancets (Onetouc h Delica Plus Lancet) 30 gauge misc Start: 01-04-2024 CL STENT MOSES FRONTIER 2.5 X 08 FDA Start: 06-29-2024 CL STENT MOSES FRONTIER 2.5 X 12 FDA Start: 06-29-2024 CL STENT MOSES FRONTIER 2.5 X 15 FDA Start: 06-29-2024 CL STENT MOSES FRONTIER 3.0 X 15 FDA Start: 06-29-2024 Blood Sugar Diagnostic (Onetouch Ultra Test) strip Start: 01-04-2024 Lancets (Onetouc h Delica Plus Lancet) 30 gauge misc Start: 01-04-2024 Pen Needle, Diabetic (Bd Ilene 2nd Gen Pen Needle) 32 gauge x 5/32 needle Start: 03-11-2025 Pen Needle, Diabetic (Bd Ilene 2nd Gen Pen Needle) 32 gauge x 5/32 needle Start: 01-16-2025 End: 01-16-2025 Pen Needle, Diabetic (Bd Ilene 2nd Gen Pen Needle) 32 gauge x 5/32 needle Start: 01-16-2025 End: 01-16-2025 CL STENT MOSES FRONTIER 2.5 X 08 FDA Start: 06-29-2024 CL STENT MOSES FRONTIER 2.5 X 12 FDA Start: 06-29-2024 CL STENT MOSES FRONTIER 2.5 X 15 FDA Start: 06-29-2024 CL STENT MOSES FRONTIER 3.0 X 15 FDA Start: 06-29-2024 Blood Sugar Diagnostic (Onetouch Ultra Test) strip Start: 01-04-2024 Lancets (Onetouc h Delica Plus Lancet) 30 gauge misc Start: 01-04-2024 Pen Needle, Diabetic (Bd Ilene 2nd Gen Pen Needle) 32 gauge x 5/32 needle Start: 01-16-2025 Pen Needle, Diabetic (Bd Ilene 2nd Gen Pen Needle) 32 gauge x 5/32 needle Start: 01-16-2025 End: 01-16-2025 Pen Needle, Diabetic (Bd Ilene 2nd Gen Pen Needle) 32 gauge x 5/32 needle Start: 01-16-2025 End: 01-16-2025 Goals Date Patient Goal Desired Activity /State Functional Status Date Assessment Result Facility 06-30-2024 Functional status Patient at Baseline [facility] Work Phone: 11-03-2023 Functional status 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 Work Phone: Mental Status Date Assessment Result Facility 06-30-2024 Cognitive function Cognitive Sta tus Patient at Baseline [facility] Work Phone: 11-03-2023 Cognitive function Cognitive Sta tus Patient at Baseline [facility] Work Phone: 10-15-2023 Cognitive function Cognitive Sta tus Patient at Baseline [facility] Work Phone: Clinical Notes 11-23-2022 to 01-22-2025 Assessment & Plan Note - WHITNEY Garces - 01/22/2025 4:12 PM EDTAssessment & Plan Note - WHITNEY Garces - 01/22/2025 4:12 PM EDTPatient InstructionsPatient Instructions Note Date & Type Note Facility 01-22-2025 Evaluation + Plan note Associated Problem(s): Edema 1 month ago patient presented off of her Lasix with increasing bilateral lower extremity edema. She has now been compliant with Lasix 40 mg daily and presents today with increased left greater than right edema. The left leg is edematous almost up into her mid thigh, it is somewhat painful. She is not on anticoagulation and will send for ultrasound to rule out DVT. Otherwise, on no offending agents. Last LVEF 64% Most recent potassium 4.3, creatinine 0.98 [facility] Work Phone: 01-22-2025 Miscellaneous Notes Associated Problem(s): Edema 1 month ago patient presented off of her Lasix with increasing bilateral lower extremity edema. She has now been compliant with Lasix 40 mg daily and presents today with increased left greater than right edema. The left leg is edematous almost up into her mid thigh, it is somewhat painful. She is not on anticoagulation and will send for ultrasound to rule out DVT. Otherwise, on no offending agents. Last LVEF 64% Most recent potassium 4.3, creatinine 0.98 Associated Problem(s): BMI 26.0-26.9,adult Has 10 pound weight gain. Has not been taking lasix daily with increased b/l lower ext edema Associated Problem(s): Cardiomyopathy, ischemic ICM HF improved EF 64% Oct 2024 MUGA (at time of anterior STEMI EF 35-40% with anterior apical hypokinesis) Associated Problem(s): Hyperlipidemia Tolerating high intensity statin December 2024 LDL 89, HDL 57 Associated Problem(s): Essential hypertension, benign optimal in office Associated Problem(s): CAD (coronary artery disease) Remote PCI Jun 29, 2024 Ant STEMI mLAD PCI/Moses 2.5x15mm & 2.5x8mm M/d RCA PCI/Euclid 3x15mm & 2.5x22mm documented in this encounter [facility] Work Phone: 01-22-2025 Evaluation + Plan note Associated Problem(s): BMI 26.0-26.9,adult Has 10 pound weight gain. Has not been taking lasix daily with increased b/l lower ext edema [facility] Work Phone: 01-22-2025 Evaluation + Plan note Associated Problem(s): Cardiomyopathy, ischemic ICM HF improved EF 64% Oct 2024 MUGA (at time of anterior STEMI EF 35-40% with anterior apical hypokinesis) [facility] Work Phone: 01-22-2025 Evaluation + Plan note Associated Problem(s): Hyperlipidemia Tolerating high intensity statin December 2024 LDL 89, HDL 57 [facility] Work Phone: 01-22-2025 Evaluation + Plan note Associated Problem(s): Essential hypertension, benign optimal in office [facility] Work Phone: 01-22-2025 Evaluation + Plan note Associated Problem(s): CAD (coronary artery disease) Remote PCI Jun 29, 2024 Ant STEMI mLAD PCI/Moses 2.5x15mm & 2.5x8mm M/d RCA PCI/Euclid 3x15mm & 2.5x22mm [facility] Work Phone: 01-22-2025 History of Presen t illness Narrative Chief Complaint My legs are swelling even worse Reason for Visit 1 month follow-up Patient presents to the office today for outpatient follow-up for medication reconciliation, lower extremity edema. Last evaluated in clinic by myself 1 month ago. At that time she was not taking her Lasix and there was questionable compliance with Plavix. Resumed her Lasix with repeat potassium 4.3, creatinine 0.98. [id number] verifies that she is compliant with clopidogrel. Presents today ambulatory with steady gait. Accompanied by [id number]. Patient denies any hospitalizations or significant changes to interval medical history since last office follow-up. History of Present Illness Patient is an extremely pleasant 84-year-old female who presents to the office today with primary concern of progressive left greater than right lower extremity edema. She denies any blisters or open wounds, it is not dependent in nature. She does try to elevate her legs, is unable to tolerate compression stockings and has been compliant with Lasix. She reports being on Lasix 40 mg for a number of years. No prior atrial fibrillation. June 2024 echo 1+ MR, RVSP 40-50 mmHg. Patient reports that overall has no complaint(s) of chest pain, chest pressure/discomfort, claudication, dyspnea, exertional chest pressure/discomfort, fatigue, and irregular heart beat Review of Systems Cardiovascular: Positive for leg swelling. Negative for chest pain, dyspnea on exertion, irregular heartbeat, near-syncope, orthopnea, palpitations, paroxysmal nocturnal dyspnea and syncope. Visit Vitals BP 130/62 (BP Location: Right arm, Patient Position: Sitting) Pulse 64 Ht 1.651 m (5' 5 ) Wt 72.6 kg (160 lb) BMI 26.63 kg/m Smoking Status Never BSA 1.82 m Physical Exam Vitals and nursing note reviewed. HENT: Head: Normocephalic. Cardiovascular: Rate and Rhythm: Normal rate and regular rhythm. Heart sounds: Normal heart sounds. Comments: L > R edema L 3+ extending to thigh Pulmonary: Effort: Pulmonary effort is normal. Breath sounds: Normal breath sounds. Abdominal: Palpations: Abdomen is soft. Musculoskeletal: Right lower leg: No edema. Left lower leg: No edema. Skin: General: Skin is warm and dry. Neurological: General: No focal deficit present. Mental Status: She is alert. Psychiatric: Mood and Affect: Mood normal. Behavior: Behavior normal. Allergies Allergen Reactions Metformin Other Oxycodone Hallucinations Penicillins Nausea/vomiting Current Outpatient Medications Medication Instructions ascorbic acid (VITAMIN C) 500 mg, Daily aspirin 81 mg, oral, Daily atorvastatin (LIPITOR) 80 mg, Nightly calcium carbonate-vitamin D3 600 mg-10 mcg (400 unit) chewable tablet 1 tablet, 2 times daily clindamycin (Cleocin) 300 mg capsule TAKE 2 CAPSULES 1 HOUR PRIOR TO DENTAL APPOINTMENT clopidogrel (PLAVIX) 75 mg, oral, Daily, On first day of starting medication take 600 mg (8 tablets) by mouth then each day after take 1 tablet 75 mg daily diclofenac sodium (VOLTAREN) 2 g, 3 times daily PRN furosemide (LASIX) 40 mg, oral, Daily insulin glargine-lixisenatide (Soliqua 100/33) 100 unit-33 mcg/mL insulin pen 17 Units, Daily Lantus Solostar U-100 Insulin 100 unit/mL (3 mL) pen levothyroxine (SYNTHROID, LEVOXYL) 50 mcg, Daily metoprolol succinate XL (TOPROL-XL) 50 mg, Daily nitroglycerin (Nitrostat) 0.4 mg SL tablet Nitroglycerin Active 0.4 MG SUBLINGUAL Q5M June 30, 2024 12:00am sennosides-docusate sodium (Juliana-Colace) 8.6-50 mg tablet 1 tablet, 2 times daily spironolactone (ALDACTONE) 25 mg, oral, 2 times daily valsartan (DIOVAN) 40 mg, 2 times daily zolpidem (AMBIEN) 5 mg, Nightly PRN Assessment: CAD (coronary artery disease) Remote PCI Jun 29, 2024 Ant STEMI mLAD PCI/Moses 2.5x15mm & 2.5x8mm M/d RCA PCI/Euclid 3x15mm & 2.5x22mm Essential hypertension, benign optimal in office Hyperlipidemia Tolerating high intensity statin December 2024 LDL 89, HDL 57 Cardiomyopathy, ischemic ICM HF improved EF 64% Oct 2024 MUGA (at time of anterior STEMI EF 35-40% with anterior apical hypokinesis) BMI 26.0-26.9,adult Has 10 pound weight gain. Has not been taking lasix daily with increased b/l lower ext edema Edema 1 month ago patient presented off of her Lasix with increasing bilateral lower extremity edema. She has now been compliant with Lasix 40 mg daily and presents today with increased left greater than right edema. The left leg is edematous almost up into her mid thigh, it is somewhat painful. She is not on anticoagulation and will send for ultrasound to rule out DVT. Otherwise, on no offending agents. Last LVEF 64% Most recent potassium 4.3, creatinine 0.98 Edema is starting to interfere with quality of life, making ambulation difficult. May need to consider switch to demadex Low threshold to repeat echo Consider holter for PAF Plan: Through informed decision making process incorporating patients unique circumstances, the following treatment plan will be initiated: Take 2 tablets of furosemide daily for next 3 days - I will call you to see how things are going LLE USN t/o DVT (edema, pain) Return for follow-up; in the interim, contact the office if new symptoms arise. 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 Voice recognition software was utilized to prepare this document. documented in this encounter [facility] Work Phone: 01-22-2025 Instructions WHITNEY Garces - 01/22/2025 11:30 AM EDT Please bring all medicines, vitamins, and herbal supplements with you when you come to the office. Prescriptions will not be filled unless you are compliant with your follow up appointments or have a follow up appointment scheduled as per instruction of your physician. Refills should be requested at the time of your visit. PLAN: Through informed decision making process incorporating patients unique circumstances, the following treatment plan will be initiated: Take 2 tablets of furosemide daily for next 3 days - I will call you to see how things are going LLE USN t/o DVT (edema, pain) Return for follow-up; in the interim, contact the office if new symptoms arise. 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 Work Phone: 12-20-2024 Evaluation + Plan note Associated Problem(s): Edema Not taking lasix daily EF 64% RVSP 40-50mmHG No offending medications [facility] Work Phone: 12-20-2024 Miscellaneous Notes Associated Problem(s): Edema Not taking lasix daily EF 64% RVSP 40-50mmHG No offending medications Associated Problem(s): BMI 26.0-26.9,adult Has 10 pound weight gain. Has not been taking lasix daily with increased b/l lower ext edema Associated Problem(s): Diabetes mellitus (Multi) On ARB/statin Unknown HgA1c Associated Problem(s): Cardiomyopathy, ischemic ICM HF improved EF 64% Oct 2024 MUGA (at time of anterior STEMI EF 35-40% with anterior apical hypokinesis) Associated Problem(s): Hyperlipidemia Tolerating high intensity statin Due for repeat labs Associated Problem(s): Essential hypertension, benign optimal in office Associated Problem(s): CAD (coronary artery disease) Remote PCI Jun 29, 2024 Ant STEMI mLAD PCI/Moses 2.5x15mm & 2.5x8mm M/d RCA PCI/Euclid 3x15mm & 2.5x22mm documented in this encounter [facility] Work Phone: 12-20-2024 Evaluation + Plan note Associated Problem(s): BMI 26.0-26.9,adult Has 10 pound weight gain. Has not been taking lasix daily with increased b/l lower ext edema [facility] Work Phone: 12-20-2024 Evaluation + Plan note Associated Problem(s): Diabetes mellitus (Multi) On ARB/statin Unknown HgA1c [facility] Work Phone: 12-20-2024 Evaluation + Plan note Associated Problem(s): Cardiomyopathy, ischemic ICM HF improved EF 64% Oct 2024 MUGA (at time of anterior STEMI EF 35-40% with anterior apical hypokinesis) [facility] Work Phone: 12-20-2024 Evaluation + Plan note Associated Problem(s): Hyperlipidemia Tolerating high intensity statin Due for repeat labs [facility] Work Phone: 12-20-2024 Evaluation + Plan note Associated Problem(s): Essential hypertension, benign optimal in office [facility] Work Phone: 12-20-2024 Evaluation + Plan note Associated Problem(s): CAD (coronary artery disease) Remote PCI Jun 29, 2024 Ant STEMI mLAD PCI/Euclid 2.5x15mm & 2.5x8mm M/d RCA PCI/Euclid 3x15mm & 2.5x22mm [facility] Work Phone: 12-20-2024 History of Presen t illness Narrative Chief Complaint I think I am ok Reason for Visit 4 month follow up. Patient presents to the office today for outpatient follow-up for hypertension, hyperlipidemia, and coronary artery disease and ICM. Last evaluated in clinic by Dr. Mcdermott Jul 2024. Oct 2024 MUGA ef 64% Presents today ambulatory with cane and steady gait. Accompanied by daughter. Patient denies any hospitalizations or significant changes to interval medical history since last office follow-up. History of Present Illness Patient is an extremely pleasant 84-year-old female who presents to the office today with no voiced cardiovascular complaints. She reportedly completed cardiac rehab, it will not be cost prohibitive and she is unable to continue. She resides alone does ADLs and light housework. She has noted over the last couple weeks increasing dyspnea on exertion and increasing lower extremity edema. Her prior angina symptom was chest hurting and she denies any recurrence. She is somewhat confused regarding concomitant medication. Presents today off of Plavix -reports it was stopped at time of cataracts and she has been cautioned not to discontinue DAPT without approval of Dr. Mcdermott and will reduce to Plavix. She also has not been taking Lasix 40 mg daily. She has a 12 pound weight gain with increased lower extremity edema and also mild dyspnea. Recent MUGA showed LVEF of 64%. She has been instructed to resume Plavix and to resume Lasix. Patient reports that overall has no complaint(s) of chest pain, chest pressure/discomfort, claudication, exertional chest pressure/discomfort, fatigue, and irregular heart beat or has complaint(s) of dyspnea and irregular heart beat. Daily activity: > 4 METs Denies any change in exercise capacity or functional tolerance since last office visit. The importance of secondary prevention reviewed: HTN: optimal HLD: treated - due for labs DM: treated Smoker: denies BMI: Reviewed the merits of healthy lifestyle choices on overall cardiovascular health. Review of Systems Cardiovascular: Positive for dyspnea on exertion and leg swelling. Negative for chest pain, irregular heartbeat, near-syncope, orthopnea, palpitations, paroxysmal nocturnal dyspnea and syncope. Visit Vitals BP 112/64 (BP Location: Right arm, Patient Position: Sitting) Pulse 66 Ht 1.651 m (5' 5 ) Wt 71.7 kg (158 lb) BMI 26.29 kg/m Smoking Status Never BSA 1.81 m Physical Exam Vitals and nursing note reviewed. HENT: Head: Normocephalic. Cardiovascular: Rate and Rhythm: Normal rate and regular rhythm. Heart sounds: Normal heart sounds. Pulmonary: Effort: Pulmonary effort is normal. Breath sounds: Normal breath sounds. Abdominal: Palpations: Abdomen is soft. Musculoskeletal: Right lower le+ Pitting Edema present. Left lower le+ Pitting Edema present. Skin: General: Skin is warm and dry. Neurological: General: No focal deficit present. Mental Status: She is alert. Psychiatric: Mood and Affect: Mood normal. Behavior: Behavior normal. Allergies Allergen Reactions Metformin Other Oxycodone Hallucinations Penicillins Nausea/vomiting Current Outpatient Medications Medication Instructions ascorbic acid (VITAMIN C) 500 mg, Daily aspirin 81 mg, oral, Daily atorvastatin (LIPITOR) 80 mg, Nightly calcium carbonate-vitamin D3 600 mg-10 mcg (400 unit) chewable tablet 1 tablet, 2 times daily clindamycin (Cleocin) 300 mg capsule TAKE 2 CAPSULES 1 HOUR PRIOR TO DENTAL APPOINTMENT clopidogrel (PLAVIX) 75 mg, oral, Daily, On first day of starting medication take 600 mg (8 tablets) by mouth then each day after take 1 tablet 75 mg daily furosemide (LASIX) 40 mg, oral, Daily insulin glargine-lixisenatide (Soliqua 100/33) 100 unit-33 mcg/mL insulin pen 17 Units, Daily Lantus Solostar U-100 Insulin 100 unit/mL (3 mL) pen levothyroxine (SYNTHROID, LEVOXYL) 50 mcg, Daily metoprolol succinate XL (TOPROL-XL) 50 mg, Daily nitroglycerin (Nitrostat) 0.4 mg SL tablet Nitroglycerin Active 0.4 MG SUBLINGUAL Q5M June 30, 2024 12:00am sennosides-docusate sodium (Juliana-Colace) 8.6-50 mg tablet 1 tablet, 2 times daily spironolactone (ALDACTONE) 25 mg, oral, 2 times daily valsartan (DIOVAN) 40 mg, 2 times daily zolpidem (AMBIEN) 5 mg, Nightly PRN Assessment: CAD (coronary artery disease) Remote PCI Jun 29, 2024 Ant STEMI mLAD PCI/Moses 2.5x15mm & 2.5x8mm M/d RCA PCI/Euclid 3x15mm & 2.5x22mm Essential hypertension, benign optimal in office Hyperlipidemia Tolerating high intensity statin Due for repeat labs Cardiomyopathy, ischemic ICM HF improved EF 64% Oct 2024 MUGA (at time of anterior STEMI EF 35-40% with anterior apical hypokinesis) Diabetes mellitus (Multi) On ARB/statin Unknown HgA1c BMI 26.0-26.9,adult Has 10 pound weight gain. Has not been taking lasix daily with increased b/l lower ext edema Edema Not taking lasix daily EF 64% RVSP 40-50mmHG No offending medications Plan: Through informed decision making process incorporating patients unique circumstances, the following treatment plan will be initiated: 1. Prescription drug management of cardiovascular medication for efficacy, adherence to treatment, side effect assessment and polypharmacy. Current treatment clinically warranted and to continue with following modifications: - Make sure you are taking Plavix 75mg daily - ASA 81mg daily - Resume lasix 40mg daily 2. Labs (lipids,chem6,BNP) in one week 3. Return for follow-up; in the interim, contact the office if new symptoms arise. 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 Voice recognition software was utilized to prepare this document. documented in this encounter [facility] Work Phone: 12-20-2024 Instructions WHITNEY Garces - 12/20/2024 11:30 AM EST Please bring all medicines, vitamins, and herbal supplements with you when you come to the office. Prescriptions will not be filled unless you are compliant with your follow up appointments or have a follow up appointment scheduled as per instruction of your physician. Refills should be requested at the time of your visit. PLAN: Through informed decision making process incorporating patients unique circumstances, the following treatment plan will be initiated: 1. Prescription drug management of cardiovascular medication for efficacy, adherence to treatment, side effect assessment and polypharmacy. Current treatment clinically warranted and to continue with following modifications: - Make sure you are taking Plavix 75mg daily - ASA 81mg daily - Resume lasix 40mg daily 2. Labs (lipids,chem6,BNP) in one week 3. Return for follow-up; in the interim, contact the office if new symptoms arise. 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 Work Phone: 12-13-2024 Progress note [facility] enter 12-06-2024 Evaluation note Diagnosis Onset Date Resolution BMI 26.0-26.9,adult acute Janua 2024 10:50am Dietary counseling and surveillance acute December 06 10:50am Hyperlipidemia acute December 062024 10:50am Hypertension acute November 10:50am Type 2 diabetes mellitus with hyperglycemia acute December 06, 2024 10:50am History of left breast cancer acute December 13 12:44pm Mass of right lung acute 2024 12:44pm History of thyroid surgery inactive December 13 12:44pm History of left breast cancer acute December 13 12:50pm Mass of right lung acute 2024 12:50pm History of thyroid surgery inactive December 13 12:50pm [facility] Work Phone: 1(523) 743-601301-29-2025 Evaluation note* Diagnosis Onset Date Resolution Status Admit Date BMI 26.0-26.9,adult acute Janua 2024 10:50am Dietary counseling and surveillance acute December 06 10:50am Hyperlipidemia acute December 062024 10:50am Hypertension acute November 10:50am Type 2 diabetes mellitus wit h hyperglycemia acute December 06 10:50am History of left breast cancer acute December 13, 2024 12:44pm Mass of right lung acute 2024 12:44pm History of thyroid surgery inactive December 13, 2024 12:44pm History of left breast cancer acute December 13, 2024 12:50pm Mass of right lung acute Februa 2024 12:50pm History of thyroid surgery inactive December 13, 2024 12:50pm Type 2 diabetes mellitus wit h hyperglycemia acute January 24, 2025 10:53am [facility] Work Phone: 1(718) 450-772811-01-2024 Evaluation note* Diagnosis Onset Date Resolution Status Admit Date BMI 26.0-26.9,adult acute Novem 2023 8:43am Dietary counseling and surveillance acute September 08 8:43am Hyperlipidemia acute September 082023 8:43am Hypertension acute September 8:43am Type 2 diabetes mellitus wit h hyperglycemia acute September 08 8:43am [facility] Work Phone: 1(725) 505-455409-05-2024 History of Present illness Narrative* Yusuf Mcdermott, DO - 07/13/2024 10:30 AM EDT Subjective Heidi Palmer is a 84 y.o. female Chief Complaint Follow-up 84-year-old female here for TCM visit following acute GA with revascularization of the RCA and LAD with significant LV dysfunction ejection fraction of 35%. She is feeling better, no shortness of breath, remains somewhat debilitated in regards to ambulatory capacity due to unsteady gait, history offalls, utilizes a cane and advanced age. She has a previous history of GA with revascularization procedures in [place]. She is now on appropriate GDMT as reviewed for her cardiomyopathy and remains on DAPT with no recurrent events, angina ornitrate usage or heart failure. Recommendations, continue current therapies follow-up in 3 to 4 months, obtain MUGA scan to assess LV function and potential candidacy for AICD, enroll in cardiac rehab if she is compatible with the equipment and physically [place]. Review of Systems All other systems reviewed and are negative. Vitals: 07/13/24 1110 BP: 112/50 BP Location: Left arm Patient Position: Sitting Pulse: 64 Weight: 66.2 kg (146 lb) Height: 1.651 m (5' 5 ) Objective [...] and Penicillins Current Medications Current Outpatient Medications: ascorbic acid (Vitamin C) 500 mg ER capsule, Take 1 capsule (500 mg) by mouth once daily., Disp: , Rfl: aspirin 81 mg EC tablet, Take 1 tablet (81 mg) by mouth once daily. (Patient taking differently: Take 1 tablet (81 mg) by mouth 2 times a day.), Disp: 30 tablet, Rfl: 11 atorvastatin (Lipitor) 80 mg tablet, 1 tablet (80 mg) once daily at bedtime., Disp: , Rfl: calcium carbonate-vitamin D3 600 mg-10 mcg (400 unit) chewable tablet, Chew 1 tablet 2 times a day., Disp: , Rfl: clindamycin (Cleocin) 300 mg capsule, TAKE 2 CAPSULES 1 HOUR PRIOR TO DENTAL APPOINTMENT, Disp: , Rfl: furosemide (Lasix) 40 mg tablet, Take 1 tablet (40 mg) by mouth once daily. (Patient taking differently: Take 1 tablet (40 mg) by mouth. 1 tablet twice a week), Disp: 90 tablet, Rfl: 3 Klor-Con M10 10 mEq ER tablet, Take 1 tablet (10 mEq) by mouth. 1 tablet twice a week with furosemide, Disp: , Rfl: Lantus Solostar U-100 Insulin 100 unit/mL (3 mL) pen, , Disp: , Rfl: levothyroxine (Synthroid, Levoxyl) 50 mcg tablet, Take 1 tablet (50 mcg) by mouth once daily., Disp: , Rfl: metoprolol succinate XL (Toprol-XL) 50 mg 24 hr tablet, Take 1 tablet (50 mg) by mouth once daily. Do not crush or chew., Disp: , Rfl: nitroglycerin (Nitrostat) 0.4 mg SL tablet, Nitroglycerin Active 0.4 MG SUBLINGUAL Q5M 25 30 [id number], 2024 12:00am, Disp: , Rfl: sennosides-docusate sodium (Juliana-Colace) 8.6-50 mg tablet, Take 1 tablet by mouth 2 times a day., Disp: , Rfl: spironolactone (Aldactone) 25 mg tablet, TAKE 1 TABLET TWICE A DAY, Disp: 180 tablet, Rfl: 3 ticagrelor (Brilinta) 90 mg tablet, Take 1 tablet (90 mg) by mouth 2 times a day., Disp: , Rfl: valsartan (Diovan) 40 mg tablet, 1 tablet (40 mg) once daily., Disp: , Rfl: Assessment/Plan 1. Coronary artery disease involving hopi heart, unspecified vessel or lesion type, unspecified whether angina present 2. Essential hypertension, benign 3. History of PTCA 4. Hyperlipidemia, unspecified hyperlipidemia type 5. Cardiomyopathy, ischemic 6. Edema, unspecified type 7. Type 2 diabetes mellitus without complication, without long-term current use of insulin (Multi) 8. BMI 24.0-24.9, adult 9. Never smoked cigarettes Scribe Attestation By signing my name below, I, Rebekah Juarez RN , Scribe attest that this documentation has been prepared under the direction and in the presence of Darya Mcdermott DO. Provider Attestation - Scribe documentation All medical record entries made by the Scribe were at my direction and personally dictated by me. Ihave reviewed the chart and agree that the record accurately reflects my personal performance of the history, physical exam, discussion and plan. documented in this [facility] Work Phone: 1(921) 789-976109-05-2024 Instructions* Patient Instructions* Rebekah Hughes RN - 07/13/2024 10:30 AM EDT Please bring all medicines, vitamins, and herbal supplements with you when you come to the office. Prescriptions will not be filled unless you are compliant with your follow up appointments or have a follow up appointment scheduled as per instruction of your physician. Refills should be requested at the time of your visit. No contraindication for cataract surgery with any of your cardiac medications documented in this [facility] Work Phone: 1(588) 432-943008-22-2024 Progress note Author Tl Wild [facility] June 29, 2024 5:10pm Note Date/Time June 29, 2024 5: 10pm [facility] [address] [place] [id number] Progress Note Signed Patient: Heidi Palmer MR#: [id number] : 1940 Acct:[id number] Age/Sex: 84 / F Adm Date: 4 Loc: 4C Room: [address] [place] [address] Type: ADM IN Attending Dr: Roberto Carlos [...] <Electronically signed by MD Tl Wild> 06/29/241709 [facility] Work Phone: 1(249) 909-576208-22-2024 Progress note Author Roberto Carlos Mcdermott [facility] June 29, 2024 11:29am Note Date/Time June 29, 2024 11 :29am [facility] [address] [place] [id number] Cardiology Progress Note Signed Patient: Heidi Palmer MR#: [id number] : 1940 Acct:[id number] Age/Sex: 84 / F Adm Date: 4 Loc: 4C Room: [address] [address] Type: ADM IN Attending Dr: Roberto Carlos Mcdermott DO Copies to: ~ Date of Service: 06/29/2024 Subjective Principal diagnosis: Anteroapical STEMI Interval history: Ms. Palmer is a 84 year old female admitted in transfer emergently from [facility] with new onset chest discomfort, ER arrival 0009, ECG with changes consistent with anterior STEMI involving ST elevation in lead V1 and V2. I was contacted by Dr. Allen at 12:59 AM, reviewed ECGs via electronic transmitted media from 2022 and current ECG performed at 12:56 AM. (Incidentally, current ECG probablyreveals lead misplacement of lead I and aVR) Patient arrived at [facility] via [facility] at 0228; first device activation 0244; door to device time 16 minutes (delay in [facility] arrival anddeparture at outside facility) Past medical history: ASHD with prior PCI's of LAD and RCA at [facility] February 2012 with 1 episode of restenosis of the LAD, with repeat PCI details unknown. Patient used to follow with [facility] up until 2019and then followed with [...] time were devoted to the ER staff, [employer] staff, nursing staff, patient and family both [...] 98 Room Air 2 06/29/24 08:06/29/24 10:06/29/24 10:06/29/24 10:06/29/24 10:06/29/24 10:06/29/24 04:35 Const General: cooperative Nutritional Appearance: average [...] % (Auto) 77.1 Lymph % (Auto) 15.0 [place] % (Auto) 6.6 Eos % (Auto) 0.5 Baso % (Auto) 0.8 Nucleat RBC Rel Count 0.1 Neut # (Auto) 10.7 H Lymph # (Auto) 2.1 [place] # (Auto) 0.9 H Eos # (Auto) [...] artery disease): Qualifiers: Coronary Disease-Associated Artery/Lesion type: hopi artery [place] vs. transplanted heart: hopi heart Code(s): 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 (3) Diabetes: [...] cath/PCI Documented By: Roberto Carlos Mcdermott DO 06/29/241127 Signed By: <Electronically signed by Roberto Carlos Mcdermott DO> 06/29/24 1129 [facility] Work Phone: 1(807) 985-107508-22-2024 History and physical note Author Roberto Carlos Mcdermott [facility] June 29, 2024 3:25am Note Date/Time June 29, 2024 2: 18am [facility] [address] [place] [address] Cardiology H&P Signed Patient: Heidi Palmer MR#: [id number] : 1940 Acct:[id number] Age/Sex: 84 / F Adm Date: 4 Loc: Room: Type: [facility] Attending Dr: Roberto Carlos Mcdermott DO Copies to: MD Roberto Carlos Ayala DO~ Date of Service: 06/29/2024 Cardiology HPI History of Present Illness Chief complaint: Anterior STEMI HPI: Ms. Palmer is a 84 year old female admitted in transfer emergently from [facility] with new onset chest discomfort, ER arrival 0009, ECG with changes consistent with anterior STEMI involving ST elevation in lead V1 and V2. I was contacted by Dr. Allen at 12:59 AM, reviewed ECGs via electronic transmitted media from 2022 and current ECG performed at 12:56 AM. (Incidentally, current ECG probablyreveals lead misplacement of lead I and aVR) Patient arrived at [facility] via [facility] at 0228; first device activation 0244; door to device time 16 minutes (delay in [facility] arrival anddeparture at outside facility) Past medical history: ASHD with prior PCI's of LAD and RCA at [facility] February 2012 with 1 episode of restenosis of the LAD, with repeat PCI details unknown. Patient used to follow with [facility] up until 2019and then followed with [...] time were devoted to the ER staff, [employer] staff, nursing staff, patient and family both pre and post procedurally. [facility] Medical History (Updated 06/29/24 @ 02:18 by [...] 11/03/23 [Rx Confirmed 06/09/24] blood sugar diagnostic (Aegis Lightwaveuch Ultra Test strips) #10 ea 01/04/24 [History Confirmed 06/09/24] blood-glucose meter (eCareDiary Ultra2 Meter) #1 ea 01/04/24 [History Confirmed 06/09/24] lancets 30 gauge (ExtricomTouch Delica Plus Lancet) #100 ea 01/04/24 [History [...] Interpretations EKG EKG results cardiology: sinus rhythm GA, pacemaker, normal Myocardial infarction: anterior GA (acute or recent) A&P - Cardiology (1) ST elevation myocardial infarction (STEMI) of anterior wall: Code(s): I21.09 - ST elevation (STEMI) myocardial infarction involving other coronary artery of anterior wall (2) CAD (coronary artery disease): Qualifiers: Coronary Disease-Associated Artery/Lesion type: hopi artery [place] vs. transplanted heart: hopi heart Code(s): 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 (3) Diabetes: [...] by Roberto Carlos Mcdermott DO> 06/29/24 0325 [facility] Work Phone: 1(201) 116-809108-22-2024 Procedure [facility]08-22-2024 Procedure [facility]03-20-2024 History of Present illness Narrative* Yusuf [...] 3 Assessment/Plan 1. Coronary artery disease involving hopi coronary artery of hopi heart without angina pectoris Patient has not [...] Scribe Attestation By signing my name below, Rain Murphy LPN, Scribe attest that this documentation has been prepared under the direction and in the presence of Liberty Hayward MD. Provider Attestation - Scribe documentation All medical record entries made by the Scribe were at my direction and personally dictated by me. Liz reviewed the chart and agree that the record accurately reflects my personal performance of the history, physical exam, discussion and plan. [facility] Work Phone: 1(688) 418-904103-20-2024 Instructions* Patient Instructions* Rain Michaud LPN - [...] Fall Prevention Education Given. [facility]St[facility] Work Phone: 1(908) 588-950002-07-2024 Evaluation note* Encounter Date Diagnosis Assessment Notes Treatment Notes Treatment Clinical Notes Dec, Type 2 diabetes mellitus with hyperglycemia, without long-term current use of insulin (ICD-10 - E11.65) Heidi and her Tpyqwdji-la-Gxk, Dee came in today for download and [...] been having leg swelling. Per Tova Diaz RAT BREEDER we will discontinue Pioglitizone. Heidi's BG is declining over long periods of time which indicates overbasalization. Tova Mays and I discussed starting Soliqua. Tova Roberts APRN ordered the patient to discontinue Lantus and start Soliqua 15 units daily. 75 minutes were spent evaluating the patient's report, discussing its findings and making medication changes by Florence Rose RN, [facility]. Dec, Norma Aleman 12/15/2023 04:31:21 PM > noted while patient on site, documentation reviewed and agree [facility] Other 01-11-2024 Evaluation note* Encounter Date Diagnosis [...] diabetes medication issues. 6. Prescriptions: 11-18-2023 uses [facility] Nov, Vitamin D deficiency (ICD-10 - E55.9) [...] was counseling done by myself, Tova BECKETT. [facility] Other 01-09-2024 Evaluation note* Encounter Date Diagnosis [...] of right hip hemiarthroplasty (ICD-10 - Z96.641) [facility] Other 01-02-2024 Evaluation note* Encounter Date Diagnosis [...] 1 (ICD-10 - L89.91) request to monitor [facility] Other 12-07-2023 Progress note Author Chin Rodarte [facility] October 14, 2023 12:34pm Note Date/Time October 14, 2023 1 2:34pm [facility] [address] [place] [address] Hospitalist Progress Note Signed Patient: Heidi Palmer MR#: [id number] : 1940 Acct:[id number] Age/Sex: 83 / F Adm Date: 3 Loc: Room: [address] [place] [address] Type: ADM IN Attending Dr: Chin Rodarte [...] signed by Chin Rodarte MD> 10/14/23 1234 [facility] Work Phone: [phone] 115-906912-06-2023 Consult note Author Last Boston [facility] October 13, 2023 2:52pm Note Date/Time October 13, 2023 1 :18pm [facility] [address] [place] [address] Physiatry (Rehab) Consult Note Signed Patient: Heidi Palmer MR#: [id number] : 1940 Acct:[id number] Age/Sex: 83 / F Adm Date: 3 Loc: Room: [address] [place] [address] Type: ADM IN Attending Dr: Chin Rodarte [...] negative unless noted below or in HPI [facility] Medical History Abnormal breast biopsy Breast cancer [...] MPV Neut % (Auto) Lymph % (Auto) [place] % (Auto) Eos % (Auto) Baso % (Auto) Nucleat RBC Rel Count Neut # (Auto) Lymph # (Auto) [place] # (Auto) Eos # (Auto) Baso # [...] Turbid A Urine pH 5.5 Ur Specific [place] 1.031 H Urine Protein 300 H Urine [...] MPV Neut % (Auto) Lymph % (Auto) [place] % (Auto) Eos % (Auto) Baso % (Auto) Nucleat RBC Rel Count Neut # (Auto) Lymph # (Auto) [place] # (Auto) Eos # (Auto) Baso # (Auto) Lymphocytes % Monocytes % Segmented Neutrophils Reactive Lymphocytes Platelet Estimate Giant Platelets Plt Morphology Comment RBC Morphology Polychromasia PHA Creatinine Clear Sodium Potassium Chloride Carbon Dioxide Anion Gap BUN Creatinine Est GFR (CKD-EPI) Glucose POC Glucose 151 236 299 POC Glucose Comment Glu2: cleaned meter Calcium Urine Color Urine Appearance Urine pH Ur Specific [place] Urine Protein Urine Glucose (UA) Urine Ketones [...] % (Auto) N/A Lymph % (Auto) N/A [place] % (Auto) N/A Eos % (Auto) N/A Baso % (Auto) N/A Nucleat RBC Rel Count N/A Neut # (Auto) N/A Lymph # (Auto) N/A [place] # (Auto) N/A Eos # (Auto) N/A [...] Color Urine Appearance Urine pH Ur Specific [place] Urine Protein Urine Glucose (UA) Urine Ketones [...] Code(s): 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 Status: Acute [...] Allied health note review, nursing note review, home energy consultant supervisor note review, discussion with nursing and case management, and more than 50% of my time was spent on counseling and coordination of care, time spent 40 minutes Patient was personally seen by me, Dr. Boston, on the day of encounter, reviewed the history and the relevant portions of the chart, including current orders, allied health and home energy consultant supervisor notes, labs/imaging and performed crews elements of exam and I formulated the plan of care and facilitated the medical decision making. Documented By: Last Boston MD 1245 Signed By: <Electronically signed by Last Boston MD> 10/13/23 5979 [facility] Work Phone: [phone]) 261-461712-06-2023 Progress note Author Chin Rodarte [facility] October 13, 2023 11:53am Note Date/Time October 13, 2023 1 1:53am [facility] [address] [place] [address] Hospitalist Progress Note Signed Patient: Heidi Pamler MR#: [id number] : 1940 Acct:[id number] Age/Sex: 83 / F Adm Date: 3 Loc: 3T Room: [address] [place] [address] Type: ADM IN Attending Dr: Chin Rodarte [...] 10 mg 10/11/23 16:47 Bisacodyl 5 Mg Tablet.Dr PO 10/10/24 16:46 DAILY PRN Constipation Cyclosporine [...] Syringe SUBCUT 10/11/24 09:59 40 mg DAILY@10 ILINAA Administration Lactated Ringer's 1,000 mls @ 75 mls/hr 10/12/23 15:00 10/13/23 09:42 Lactated Ringers IV 10/11/24 14:59 75 mls/hr .[id number] ILIANA Administration Levofloxacin 500 mg in 100 [...] signed by Chin Rodarte MD> 10/13/23 1153 [facility] Work Phone: 1([phone] 922-410412-06-2023 Consult note Author Tosha Patel [facility] October 13, 2023 10:49am Note Date/Time October 13, 2023 1 0:37am [facility] [address] [place] [address] Hem/Onc Consult Note - IP Signed Patient: Heidi Palmer MR#: [id number] : 1940 Acct:[id number] Age/Sex: 83 / F Adm Date: 3 Loc: 3T Room: 5G6557-0 Type: ADM IN Attending Dr: Chin Rodarte [...] reduction and internal fixation on 10/12/2023here at [facility] by orthopedic surgery. As part of [...] had a left breast surgery probably at [facility] about 3035 years ago and she was [...] close by. The daughter Lyubov lives in [place]. Patient has not seen oncologist to her [...] lethargic still from recent surgery doneon 10/12/2023. [facility] - Medical History Medical History: Medical History [...] Turbid A, Urine pH 5.5, Ur Specific [place] 1.031 H, Urine Protein 300 H, Urine [...] needs to follow-up with me at the [facility] within the next 2 to 4 [...] for coordination of care (as documented) and [id number] counseling of patient and/or family. Documented By: Tosha Patel MD 10/13/23 1035 Signed By: <Electronically signed by Tosha Patel MD> 10/13/23 1049 [facility] Work Phone: [phone]) 294-155312-06-2023 Progress note Author Epi Booth [facility] October 13, 2023 7:08am Note Date/Time October 13, 2023 6 :47am [facility] [address] [place] [address] Orthopedic Progress Note Signed Patient: Heidi Palmer MR#: [id number] : 1940 Acct:[id number] Age/Sex: 83 / F Adm Date: 3 Loc: Room: [address] [place] [address] Type: ADM IN Attending Dr: Chin Rodarte [...] % (Auto) 75.5 Lymph % (Auto) 12.5 [place] % (Auto) 9.7 Eos % (Auto) 1.1 Baso % (Auto) 1.2 Nucleat RBC Rel Count 0.0 Neut # (Auto) 9.9 H Lymph # (Auto) 1.6 [place] # (Auto) 1.3 H Eos # (Auto) [...] Color Urine Appearance Urine pH Ur Specific [place] Urine Protein Urine Glucose (UA) Urine Ketones Urine Occult Blood Urine Nitrite Urine Bilirubin Urine Urobilinogen Ur Leukocyte Esterase Urine RBC Urine WBC Ur Squamous Epith Cells Urine Bacteria Hyaline Casts 10/12/23 10/12/23 10/12/23 10:58 11:47 13:05 Corrected WBC Uncorrected WBC Count RBC Hgb Hct MCV MCH MCHC RDW Plt Count MPV Neut % (Auto) Lymph % (Auto) [place] % (Auto) Eos % (Auto) Baso % (Auto) Nucleat RBC Rel Count Neut # (Auto) Lymph # (Auto) [place] # (Auto) Eos # (Auto) Baso # (Auto) PHA Creatinine Clear Sodium Potassium Chloride Carbon Dioxide Anion Gap BUN Creatinine Est GFR (CKD-EPI) Glucose POC Glucose 278 252 197 POC Glucose Comment Calcium Urine Color Urine Appearance Urine pH Ur Specific [place] Urine Protein Urine Glucose (UA) Urine Ketones Urine Occult Blood Urine Nitrite Urine Bilirubin Urine Urobilinogen Ur Leukocyte Esterase Urine RBC Urine WBC Ur Squamous Epith Cells Urine Bacteria Hyaline Casts 10/12/23 10/12/23 10/12/23 14:51 16:10 16:37 Corrected WBC Uncorrected WBC Count RBC Hgb Hct MCV MCH MCHC RDW Plt Count MPV Neut % (Auto) Lymph % (Auto) [place] % (Auto) Eos % (Auto) Baso % (Auto) Nucleat RBC Rel Count Neut # (Auto) Lymph # (Auto) [place] # (Auto) Eos # (Auto) Baso # (Auto) PHA Creatinine Clear Sodium Potassium Chloride Carbon Dioxide Anion Gap BUN Creatinine Est GFR (CKD-EPI) Glucose POC Glucose 207 151 POC Glucose Comment Glu2: cleaned meter Glu2: cleaned meter Calcium Urine Color Dark yellow A Urine Appearance Turbid A Urine pH 5.5 Ur Specific [place] 1.031 H Urine Protein 300 H Urine [...] MPV Neut % (Auto) Lymph % (Auto) [place] % (Auto) Eos % (Auto) Baso % (Auto) Nucleat RBC Rel Count Neut # (Auto) Lymph # (Auto) [place] # (Auto) Eos # (Auto) Baso # (Auto) PHA Creatinine Clear Sodium Potassium Chloride Carbon Dioxide Anion Gap BUN Creatinine Est GFR (CKD-EPI) Glucose POC Glucose 236 POC Glucose Comment Calcium Urine Color Urine Appearance Urine pH Ur Specific [place] Urine Protein Urine Glucose (UA) Urine Ketones [...] Code(s): 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 Status: Acute Documented By: Epi Booth MD 10/13/2345 Signed By: <Electronically signed by MD Epi Booth> 10/13/23 0708 [facility] Work Phone: [phone] Consult note Author Epi Booth [facility] October 13, 2023 6:54am Note Date/Time October 12, 2023 7 :25am [facility] [address] [place] [address] Orthopedic Consult Note Signed Patient: Heidi Palmer MR#: [id number] : 1940 Acct:[id number] Age/Sex: 83 / F Adm Date: 3 Loc: Room: [address] [place] [address] Type: ADM IN Attending Dr: Chin Rodarte [...] negative unless noted below or in HPI [facility] Medical History (Updated 10/11/23 @ 17:36 by [...] % (Auto) 67.6, Lymph % (Auto) 21.3, [place] % (Auto) 8.4, Eos % (Auto) 1.7, Baso % (Auto) 1.0, Nucleat RBC Rel Count 0.1, Neut # (Auto) 6.9, Lymph # (Auto) 2.2, [place] # (Auto) 0.8, Eos # (Auto) 0.2, [...] Code(s): 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 Documented By: Epi Booth MD 10/12/23722 Signed By: <Electronically signed by MD Epi Booth> 10/13/23 0654 [facility] Work Phone: 1(364) 801-777412-05-2023 Hospital Discharge instructions Additional Instructions REHAB TO MANAGE: PT/OT to eval and treat Monitor VS per protocol Monitor FSBS per protocol Monitor Ortho. assessment--Right hip fracture s/p hemiarthroplasty on 10/12/23 Please follow Ortho. instructions: *Weightbearing as tolerated *[place] out 14 days postop *Repeat hip x-rays in 14 days, have these sent to Dr. Booth Maintain high risk fall precautions Care to be managed [facility] Work Phone: 1([phone]) 384-664012-05-2023 Progress note Author Chin Rodarte [facility] October 12, 2023 11:21am Note Date/Time October 12, 2023 1 1:21am [facility] [address] [place] [address] Hospitalist Progress Note Signed Patient: Heidi Palmer MR#: [id number] : 1940 Acct:[id number] Age/Sex: 83 / F Adm Date: 3 Loc: 3T Room: [address] [place] [address] Type: ADM IN Attending Dr: Chin Rodarte [...] 80 Mg Tablet PO 10/10/24 21:59 QHS [facility] Bisacodyl 10 mg 10/11/23 16:47 Bisacodyl 5 Mg Tablet.Dr PO 10/10/24 16:46 DAILY PRN Constipation Cyclosporine 1 drops 10/11/23 17:00 Cyclosporine 0.05% Op Emulsion 1 Drops (0.4 Ml Droperette) EYE-BOTH 10/10/2416:59 Q12H [facility] Docusate Sodium 100 mg 10/11/23 16:47 Docusate 100 Mg Capsule PO 10/10/24 16:46 BID PRN Constipation Enoxaparin Sodium 40 mg 10/12/23 10:00 10/12/23 10:56 Enoxaparin 40 Mg/0.4 Ml Syringe SUBCUT 10/11/24 09:59 Not Given DAILY@10 [facility] Lactated Ringer's 1,000 mls @ [...] 10/11/24 06:29 50 mcg DAILY@0630 [facility] Administration Lidocaine HCl 0.1 ml 10/12/23 10:39 Lidocaine 1% 50 Ml Vial INTRADERMA PREOP PRN Venipuncture x 1 Dose Liraglutide 18 mg 10/12/23 09:00 Liraglutide 18 Mg/3 Ml Pen.Injctr SUBCUT 10/11/24 08:59 DAILY [facility] Lisinopril 5 mg 10/12/23 09:00 10/12/23 10:55 Lisinopril 5 Mg Tablet PO 10/11/24 08:59 Not Given DAILY [facility] Melatonin 5 mg 10/11/23 16:47 [...] signed by Chin Rodarte MD> 10/12/23 1121 [facility] Work Phone: 1(504) 125-494612-04-2023 History and physical note Author Chin Rodarte [facility] October 11, 2023 4:46pm Note Date/Time October 11, 2023 4 :13pm [facility] [address] [place] [address] Hospitalist H&P Signed Patient: Heidi Palmer MR#: [id number] : 1940 Acct:[id number] Age/Sex: 83 / F Adm Date: 3 Loc: Room: [address] [place] [address] Type: ADM IN Attending Dr: Chin Rodarte [...] negative unless noted below or in HPI [facility] Medical History (Updated 10/11/23 @ 16:39 by [...] % (Auto) 21.3 % (.) 10/11/23 13:43 [place] % (Auto) 8.4 % (.) 10/11/23 13:43 Eos % (Auto) 1.7 % (.) 10/11/23 13:43 Baso % (Auto) 1.0 % (.) 10/11/23 13:43 Nucleat RBC Rel Count 0.1 /100 WBC (0-0.5) 10/11/23 13:43 Neut # (Auto) 6.9 x10E3/uL (1.8-7.7) 10/11/23 13:43 Lymph # (Auto) 2.2 x10E3/uL (1.00-4.8) 10/11/23 13:43 [place] # (Auto) 0.8 x10E3/uL (0.0-0.8) 10/11/23 13:43 [...] 3 Documented By: Chin Rodarte MD 10/11/23 1604 Signed By: <Electronically signed by Chin Rodarte MD> 10/11/23 9356 [facility] Work Phone: 1(364) 786-687312-04-2023 Evaluation note* Encounter Date Diagnosis Assessment Notes Treatment Notes Treatment Clinical Notes Oct, Type 2 diabetes mellitus with hyperglycemia, without long-term current use of insulin (ICD-10 - E11.65) Pt here for appointment today with sister, agreeable to wear a Rocio 3 sample. Rocio training discussed, instructed on use and application on personal [employer] phone. Patient cleansed posterior side of right [...] up appointment in 2 weeks with RN clinical nurse educator and in 6 weeks with provider. [...] issues. 6. Prescriptions: New patient 10-11-2023 uses [facility] pharmacy/[facility] Oct, Vitamin D deficiency (ICD-10 - E55.9) [...] the parking lot. She was taken to [facility] emergency room with hip pain and treated [facility] Other 11-30-2023 Evaluation note* Encounter Date Diagnosis Assessment Notes Treatment Notes Treatment Clinical Notes Sep, Acute non-recurrent maxillary sinusitis (ICD-10 - J01.00) Pt declines to come to office for in-person visit. She declines the offer to get a CXR. She requests rx to [facility]. She understands that she may need to go to ER again or come to office if symptoms worsen. [facility] Other 10-12-2023 Evaluation note* Encounter Date Diagnosis Assessment Notes Treatment Notes Treatment Clinical Notes Aug, Insomnia, unspecified type (ICD-10 - G47.00) [facility] Other 09-11-2023 Evaluation note* Encounter Date Diagnosis [...] proceed w US - discussed w pt. Jul, Insomnia, unspecified type (ICD-10 - G47.00) Chronic, stable - requests refill. Denies oversedation. [facility] Other 08-14-2023 Evaluation note* Encounter Date Diagnosis Assessment Notes Treatment Notes Treatment Clinical Notes Jun, Left-sided chest pain (ICD-10 - R07.9) I will notify her retail merchandising manager of this recent event and forward EKG to him. Jun, Type 2 diabetes mellitus with hyperglycemia, without long-term current use of insulin (ICD-10 - E11.65) Due for labs. Samples of Jardiance 25mg #28 given to pt. Jun, Left carotid bruit (ICD-10 - R09.89) Will assess for stroke risk factors due to recent facial weakness. Jun, UTI symptoms (ICD-10 - R39.9) UA CS at hospital. 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 Patient is in need of a hinged elbow brace due to their diagnosis of left radial head fracture. This is needed for aid in activities of daily living by increasing safety and stability. This will be needed for approximately life time. Order for physical therapy sent in for patient. [facility] Other 02-10-2023 NotePROCEDURE: XR HUMERUS LT MIN [...] Electronically authenticated by: GRADY PARKER Date: 2022-12-18 13:45[facility]02-10-2023 NotePROCEDURE: XR HUMERUS LT MIN 2V, [...] Electronically authenticated by: GRADY PARKER Date: 2022-12-18 13:45[facility]02-10-2023 NotePROCEDURE: XR HUMERUS LT MIN 2V, [...] Electronically authenticated by: GRADY PARKER Date: 2022-12-18 13:45[facility]01-16-2023 Evaluation note* Encounter Date Diagnosis Assessment [...] labs and assess stablility at this time. [facility] Other Chibf complaint+Reason for visit Narrative* Chief Complaint Referral Mica Bustos n Hip pain right femoral neck fx s/p giana-arthroplasty [facility] Z96.641 Dm DM Lung Mass Reason for [...] of thyroid surgery Mass of right lung [facility] Work Phone: Chief complaint+Reason for visit Narrative* Chief Complaint Referral Mica Bustos n Hip pain right femoral neck fx s/p giana-arthroplasty [facility] Z96.641 Dm Lung Mass DM Amb Documentation [...] of thyroid surgery Mass of right lung [facility] Work Phone: Discharge summary Author Chin Rodarte [facility] October 15, 2023 12:16pm Note Date/Time October 15, 2023 1 2:16pm [facility] [address] [place] [address] Discharge Summary Signed Patient: Heidi Palmer MR#: [id number] : 1940 Acct:[id number] Age/Sex: 83 / F Adm Date: 3 Loc: Room: [address] [place] [address]: Chin Rodarte MD Copies to: [...] <Electronically signed by Chin Rodarte MD> 10/15/236 [facility] Work Phone: Discharge summary Author Roberto Carlos Mcdermott [facility] June 30, 2024 2:13pm Note Date/Time June 30, 2024 2: 13pm [facility] [address] [place] [address] Discharge Summary Signed Patient: Heidi Palmer MR#: [id number] : 1940 Acct:[id number] Age/Sex: 84 / F Adm Date: 4 Loc: Room: [address] [place] [address]: Roberto Carlos Mcdermott DO Copies [...] 2 [address] with anterior [address] elevation GA and underwent rapid revascularization of the mid [...] & COR Angio - W Kranthi Mcdermott, p CL PCI AMI 1st Vessel LAD MARIANELA - W Kranthi Mcdermott DO p CL Closure Device Placement 0 - W Kranthi Mcdermott DO p CL Stent 1st Vessel RCA MARIANELA - W Kranthi cMdermott DO Complications Complications: None Discharge Plan Discharge [...] doctor or pharmacist, without first calling the retail merchandising manager who implanted the stent. If you require [...] weight lifting, stair steppers, etc. until the retail merchandising manager approves these activities. Check with the retail merchandising manager on your first follow-up visit. CALL YOUR PROPERTY CLAIMS MANAGER: -If bleeding should occur from the catheter insertion site- apply pressure to the site then immediately call us. -Report any fever, redness, drainage, increased swelling, or firmness at the catheter insertion site. Some bruising or slight swelling may be present at thetime of discharge. -Should arm or leg become cold, numb, white, or blue, contact the retail merchandising manager immediately. -IF you should experience episodes of [...] Cardiopulmonary Rehabilitation program is recommended. The attending retail merchandising manager or a nurse clinician should provide you with specificinstructions regarding activity, diet, medications, and further follow up for you. Follow the medication instructions provided on your discharge. If the dosages and instructions on this sheet differ from the dosage and instructions on the bottle, follow the instructions on the bottle. [facility] is not responsible for incorrect prescription information [...] 30 Days Qty: 60 12RF Continued (DME) Finale Desserts Rocio 3 Sensor Device See Rx Instructions [...] % (Auto) N/A, Lymph % (Auto) N/A, Fillmore % (Auto) N/A, Eos % (Auto) N/A, Baso % (Auto) N/A, Nucleat RBC Rel Count N/A, Neut # (Auto) N/A, Lymph # (Auto) N/A, Fillmore # (Auto) N/A, Eos # (Auto) N/A, [...] 8.9 06/29/24 15:07: Troponin I High Sens 37409.3 H* Documented By: Roberto Carlos Mcdermott DO 06/30/24 1409 Signed By: <Electronically signed by Roberto Carlos Mcdermott DO> 06/30/24 1413 [facility] Work Phone: Evaluation noteNo InformationNort Stra[employer] Other Evaluation noteNo assessment information available [facility] Work Phone: Evaluation note* Diagnosis Onset Date Resolution Status CAD (coronary artery disease) acute Closed subcapital fracture of neck of right femur acute Diabetes acute Fall acute Hyperlipidemia acute Hypothyroid acute [facility] Work Phone: Evaluation note* Diagnosis Onset Date Resolution Status CAD (coronary artery disease) acute Closed subcapital fracture of neck of right femur acute Diabetes acute Fall acute History of left breast cancer acute Hyperlipidemia acute Hypothyroid acute Impaired mobility and activities of daily living acute Lung mass acute Postoperative pain acute [facility] Work Phone: Evaluation note* Diagnosis Onset [...] acute Postoperative pain acute Yeast UTI resolved [facility] Work Phone: Evaluation note* Diagnosis Onset [...] a cute Mass of right lung acute [facility] Work Phone: Evaluation note* Diagnosis Coronary artery disease involving hopi coronary artery of hopi heart without angina pectoris- Primary Essential hypertension, benign History of PTCA Postsurgical percutaneous transluminal coronary angioplasty status Mixed hyperlipidemia Edema, unspecified type Never smoked cigarettes documented in this encounter [facility] Work Phone: Evaluation note* Diagnosis Onset Date Resolution Status History of left breast cancer acute History of thyroid surgery a cute Mass of right lung acute History of left breast cancer acute History of thyroid surgery a cute Mass of right lung acute [id number] acute History of right hip hemiarthroplasty acute BMI 26.0-26.9,adult acute Dietary counseling and surveillance acute Hyperlipidemia acute Hypertension acute Type 2 diabetes mellitus with hyperglycemia acute [facility] Work Phone: evaluation note* Diagnosis Onset Date Resolution Status History of left breast cancer acute History of thyroid surgery a cute Mass of right lung acute History of left breast cancer acute History of thyroid surgery a cute Mass of right lung acute [id number] acute History of right hip hemiarthroplasty acute BMI 26.0-26.9,adult acute Dietary counseling and surveillance acute Hyperlipidemia acute Hypertension acute Type 2 diabetes mellitus with hyperglycemia acute CAD (coronary artery disease) acute History of right hip hemiarthroplasty acute Insomnia acute Type 2 diabetes mellitus with hyperglycemia acute [facility] Work Phone: evaluation note* Diagnosis [...] Type 2 diabetes mellitus with hyperglycemia acute [facility] Work Phone: Evaluation note* Diagnosis Onset Date Resolution Status CAD (coronary artery disease) acute History of right hip hemiarthroplasty acute Insomnia acute Type 2 diabetes mellitus with hyperglycemia acute BMI 26.0-26.9,adult acute Dietary counseling and surveillance acute Hyperlipidemia acute Hypertension acute Type 2 diabetes mellitus with hyperglycemia acute Type 2 diabetes mellitus with hyperglycemia acute [facility] Work Phone: evaluation note* Diagnosis Onset Date Resolution Status Type 2 diabetes mellitus with hyperglycemia acute BMI 26.0-26.9,adult acute Dietary counseling and surveillance acute Hyperlipidemia acute Hypertension acute Type 2 diabetes mellitus with hyperglycemia acute [facility] Work Phone: evaluation note* Diagnosis [...] a cute Mass of right lung acute [facility] Work Phone: Evaluation note* Diagnosis [...] infa rction (STEMI) of anterior wall acute [facility] Work Phone: Evaluation note* Diagnosis Onset Date Resolution Status Type 2 diabetes mellitus with hyperglycemia acute BMI 26.0-26.9,adult acute Dietary counseling and surveillance acute Hyperlipidemia acute Hypertension acute Type 2 diabetes mellitus with hyperglycemia acute Mass of right lung acute Mass of right lung acute CAD (coronary artery disease) acute Diabetes acute Hyperlipidemia acute Type 2 diabetes mellitus with hyperglycemia acute [facility] Work Phone: Evaluation note* Diagnosis Onset Date Resolution Status BMI 26.0-26.9,adult acute Dietary counseling and surveillance acute Hyperlipidemia acute Hypertension acute Type 2 diabetes mellitus with hyperglycemia acute Mass of right lung acute Mass of right lung acute CAD (coronary artery disease) acute Diabetes acute Hyperlipidemia acute Type 2 diabetes mellitus with hyperglycemia acute [facility] Work Phone: Evaluation note* Diagnosis Onset Date Resolution Status CAD (coronary artery disease) acute Diabetes acute Hyperlipidemia acute Type 2 diabetes mellitus with hyperglycemia acute [facility] Work Phone: Evaluation note* Diagnosis Coronary artery disease involving hopi heart, unspecified vessel or lesion type, unspecified whether angina present Essential hypertension, benign History of PTCA Postsurgical percutaneous transluminal coronary angioplasty status Hyperlipidemia, unspecified hyperlipidemia type Cardiomyopathy, ischemic Other specified forms of chronic ischemic heart disease Edema, unspecified type Type 2 diabetes mellitus without complication, without long-term current use of insulin (Multi) BMI 24.0-24.9, adult Never smoked cigarettes ACC/AHA stage C congestive heart failure due to ischemic cardiomyopathy (Multi) documented in this encounter [facility] Work Phone: Evaluation note* Diagnosis Cardiomyopathy, ischemic- Primary Other specified forms of chronic ischemic heart disease Coronary artery disease involving hopi heart, unspecified vessel or lesion type, unspecified whether angina present Essential hypertension, benign Hyperlipidemia, unspecified hyperlipidemia type Type 2 diabetes mellitus without complication, without long-term current use of insulin (Multi) Edema, unspecified type Coronary artery disease, unspecified vessel or lesion type, unspecified whether angina present, unspecified whether hopi or transplanted heart Dyspnea on exertion Other dyspnea and respiratory abnormality BMI 26.0-26.9,adult documented in this encounter [facility] Work Phone: Evaluation note* Diagnosis Cardiomyopathy, ischemic- Primary Other specified forms of chronic ischemic heart disease Coronary artery disease involving hopi heart, unspecified vessel or lesion type, unspecified whether angina present Essential hypertension, benign Hyperlipidemia, unspecified hyperlipidemia type Type 2 diabetes mellitus without complication, without long-term current use of insulin (Multi) Edema, unspecified type Coronary artery disease, unspecified vessel or lesion type, unspecified whether angina present, unspecified whether hopi or transplanted heart Dyspnea on exertion Other dyspnea and respiratory abnormality BMI 26.0-26.9,adult Edema, unspecified type- Primary Coronary artery disease involving hopi heart, unspecified vessel or lesion type, unspecified whether angina present Cardiomyopathy, ischemic Other specified forms of chronic ischemic heart disease Essential hypertension, benign Hyperlipidemia, unspecified hyperlipidemia type BMI 26.0-26.9,adult Localized swelling, mass and lump, left lower limb documented in this encounter [facility] Work Phone: History and physical note Author Chin Rodarte [facility] October 11, 2023 4:46pm Note Date/Time October 11, 2023 4 :13pm [facility] [address] [place] [address] Hospitalist H&P Signed Patient: Heidi Palmer MR#: [id number] : 1940 Acct:[id number] Age/Sex: 83 / F Adm Date: 3 Loc: Room: [address] [place] [address] Type: ADM IN Attending Dr: Chin Rodarte [...] negative unless noted below or in HPI [facility] Medical History (Updated 10/11/23 @ 16:39 by [...] % (Auto) 21.3 % (.) 10/11/23 13:43 Fillmore % (Auto) 8.4 % (.) 10/11/23 13:43 Eos % (Auto) 1.7 % (.) 10/11/23 13:43 Baso % (Auto) 1.0 % (.) 10/11/23 13:43 Nucleat RBC Rel Count 0.1 /100 WBC (0-0.5) 10/11/23 13:43 Neut # (Auto) 6.9 x10E3/uL (1.8-7.7) 10/11/23 13:43 Lymph # (Auto) 2.2 x10E3/uL (1.00-4.8) 10/11/23 13:43 Fillmore # (Auto) 0.8 x10E3/uL (0.0-0.8) 10/11/23 13:43 [...] <Electronically signed by Chin Rodarte MD> 10/11/23 1647 [facility] Work Phone: History general Narrative - Reported* Type Description Date [...] History Ankle surgery Surgical History back surgery 2019 Surgical History Tonsils out- child Surgical History Discectomy L3-4 05/2019 Hospitalization History [facility] - UTI 2018 Hospitalization History See Above Pandoo TEK Other History general Narrative - Reported* Type Description Date [...] Surgical History right fracture repair Hospitalization History [facility] - UTI 2018 Hospitalization History See Above Pandoo TEK Other History of Present illness NarrativePatient returns [...] we will plan to see her as noted.-[facility] 250 DO Work Phone: History of Present [...] mitigated now with the introduction of statin therapy-[facility] 250 DO Work Phone: Progress note Author Tosha Patel [facility] December 08, 2023 11:56am Note Date/Time December 08, 2023 1 1:19am [facility] [place] [address] Cancer Center Note Signed Patient: Heidi Palmer MR#: [id number] : 1940 Acct:[id number] Age/Sex: 83 / F Type: REG AMB [...] her to have a follow-up with her retail merchandising manager Dr. Stark since she has worsening bilateral [...] obtain the path report from 08/02/2023 from [facility] for the needlebiopsy of the thyroid nodule. [...] reduction and internal fixation on 10/12/2023here at [facility] by orthopedic surgery. As part of [...] had a left breast surgery probably at [facility] about 3035 years ago and she was [...] close by. The daughter Lyubov lives in [place]. Patient has not seen oncologist to her [...] 08/02/23, she had thyroid nodule biopsy at [facility] which was negative for cancer. Path report [...] She has not seen Dr. Stark her retail merchandising manager for a while now but she is [...] and go over PET scan and mamogram [facility] Medical History Medical History (Updated 11/17/23 @ [...] ATELECTASIS. INCIDENTAL CHOLELITHIASIS AND DIVERTICULOSIS. Dictated By: oTsha Patel MD DD/ [id number] Signed By: <Electronically signed by Tosha Patel MD> 12/08/[address] [facility] Work Phone: Progress note Author Tosha Patel [facility] June 09, 2024 11:19am Note Date/Time June 09, 2024 10: 51am [facility] [place] [address] Cancer Center Note Signed Patient: Heidi Palmer MR#: [id number] : 1940 Acct:[id number] Age/Sex: 84 / F Type: REG AMB [...] her to have a follow-up with her retail merchandising manager Dr. Stark since she has worsening bilateral [...] obtain the path report from 08/02/2023 from [facility] for the needlebiopsy of the thyroid nodule. [...] reduction and internal fixation on 10/12/2023here at [facility] by orthopedic surgery. As part of [...] had a left breast surgery probably at [facility] about 3035 years ago and she was [...] close by. The daughter Lyubov lives in [place]. Patient has not seen oncologist to her [...] 08/02/23, she had thyroid nodule biopsy at [facility] which was negative for cancer. Path report [...] She has not seen Dr. Stark her retail merchandising manager for a while now but she is [...] 80 mg PO QHS blood sugar diagnostic (Aegis Lightwaveuch Ultra Test strips) As directed blood-glucose meter (Aegis Lightwaveuch Ultra2 Meter) As directed blood-glucose sensor (Finale Desserts Rocio 3 Sensor device) As directed invitro, change every 14 days calcium carbonate-vitamin D3 500 mg-5 mcg (200 unit) (Oyster Shell Calcium- Vitamin D3) 1 tab PO BID diclofenac sodium 1% 2 grams topical TID PRN diphenhydramine HCl (Benadryl) 25 mg PO TID PRN insulin glargine-lixisenatide 100 unit-33 mcg/mL (Soliqua 100/33) 23 units (0.23mL) subcut DAILY lancets (ExtricomTouch Delica Plus Lancet) As directed levothyroxine 50 [...] go over CT scan of the Chest [facility] Medical History Medical History Abnormal breast biopsy [...] signed by Tosha Patel MD> 06/09/[address] [facility] Work Phone: Progress note Author Tosha Patel [facility] Note Date/Time December 13, 2024 1 :22pm 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 Stark since she has worsening bilateral [...] or December 2024 and see her afterwards. 12/13/24: She is here for her 6 months follow up for history of breast cancer and lung nodules and for results of the screening mammogram and chest low dose CT for lung nodules follow up and lung cancer screening scan. 12/07/2024 CT of the chest without contrast reviewed grossly stable tree-in-bud nodularity involving the left lung compared to 06/07/2024 study. No progression of disease is seen. CT follow-up is recommended to ensure resolution. Patient did not get her screening mammogram and she does not want to get any screening mammogram anymore because she is 84-year-old. She had non-STEMI in June 2024 and she thinks she is too old for screening mammogram. She agreed to follow lung CTs yearly for 3 more years. - her clinical right breast exam and left chest wall and bilateral axillary regions were negative for masses. She wants however to follow with Dr. Hook and her primary care physician for the yearly breast exam and lung CT without IV contrast to be done every each year by the PCP as per patient request. -Follow-up with medical oncology as needed. (2) History of left breast cancer She [...] obtain the path report from 08/02/2023 from [facility] for the needlebiopsy of the thyroid nodule. She had right hemithyroidectomy in her mid 50s but she claimed that it was not cancerous. - Pathology revealed benign follicular nodule that was done on 08/02/2023. Patient Instructions: PCP to follow CT chest PRN CHEMO PLAN No Active Chemotherapy History of [...] reduction and internal fixation on 10/12/2023here at [facility] by orthopedic surgery. As part of [...] had a left breast surgery probably at [facility] about 3035 years ago and she was [...] close by. The daughter Lyubov lives in [place]. Patient has not seen oncologist to her [...] 08/02/23, she had thyroid nodule biopsy at [facility] which was negative for cancer. Path report [...] She has not seen Dr. Stark her retail merchandising manager for a while now but she is [...] is recommended to ensure complete resolution. . 12/13/24: She is here for her 6 months follow up for history of breast cancer and lung nodules and for results of the screening mammogram and chest low dose CT for lung nodules follow up and lung cancer screening scan. 12/07/2024 CT of the chest without contrast reviewed grossly stable tree-in-bud nodularity involving the left lung compared to 06/07/2024 study. No progression of disease is seen. CT follow-up is recommended to ensure resolution. Patient did not get her screening mammogram and she does not want to get any screening mammogram anymore because she is 84-year-old. She had non-STEMI in June 2024 and she thinks she is too old for screening mammogram. She agreed to follow lung CTs yearly for 3 more years. 14 points ROS was obtained and was negative. Intake Vitals/Pain Assessment 12/13/24 12:56 Height 5 ft 5 in Weight 69.853 kg BMI 25.6 Body Fat % 44.93 BP 117/69 Blood Pressure Location Rt brachial Position Sitting Temp 97.7 F Temp Source Temporal Pulse 69 Pulse Source NIBP Respiration 20 Pulse Oximetry (%) 97 Oxygen Delivery Method room air Are you having pain? No Intake Visit Reasons: Follow Up Allergies metformin Allergy (Unknown, Verified 12/13/24 12:58) Vomiting oxycodone Allergy (Unknown, Verified 12/13/24 12:58) Hallucinating Penicillins Allergy (Unknown, Verified 12/13/24 12:58) Anaphylaxis cilostazol Allergy (Verified 12/13/24 12:58) unknown Home Medications - Last Reconciled 12/13/24 by NUBIA Tomas acetaminophen (Tylenol) 325 mg PO TID PRN ascorbic acid (vitamin C) (Vitamin C) 250 mg PO DAILY aspirin 81 mg PO BID atorvastatin TAKE 1 TABLET BY MOUTH EVERYDAY AT BEDTIME blood sugar diagnostic (OneTouch Ultra Test strips) As directed blood-glucose meter (ExtricomTouch Ultra2 Meter) As directed blood-glucose sensor (FreeStyle Rocio 3 Sensor device) As directed invitro, change every 14 days blood-glucose sensor (FreeStyle Rocio 3 Plus Sensor device) As directed change every 10 days calcium-vitamin D3-vitamin K 650 mg-12.5 mcg-40 mcg (Viactiv) 650 tabs orally 2 chews daily; clopidogrel 75 mg PO DAILY diclofenac sodium 1% 2 grams topical TID PRN diphenhydramine HCl (Benadryl) 25 mg PO HS PRN furosemide 40 mg PO 2XW 30 days insulin glargine-lixisenatide 100 unit-33 mcg/mL (Soliqua 100/33) 23 units subcut DAILY lancets (OneTouch Delica Plus Lancet) As directed levothyroxine 50 mcg PO DAILY.0630 90 days Mastectomy bra As directed metoprolol succinate ER 50 mg PO DAILY 30 days nitroglycerin 0.4 mg sublingual Q5M PRN 30 days sennosides-docusate sodium 8.6-50 mg 1 tab-cap PO DAILY PRN spironolactone 25 mg PO BID valsartan 40 mg PO BID 30 days Gastrointestinal Is the patient taking opioids for pain control?: No Bowel Protocol for Opioids Given: No Bowel Pattern: Regular Bowel Movement Aid(s): None Falls Fall Precaution Measures Taken: Patient in chair Nurse's Note: Patient is here for a 6 month follow up with labs and imaging for review. No concerns voiced at time of intake. [facility] Medical History Medical History Abnormal breast biopsy BMI 26.0-26.9,adult Breast cancer left CAD (coronary artery disease) DDD (degenerative disc disease), lumbar Diabetes DJD (degenerative joint disease) Fall Heart attack History of cancer History of left breast cancer History of left breast cancer Hyperlipidemia Hypertension Hypothyroid Impaired mobility and activities of daily living Lump of right breast Lung mass ST elevation myocardial infarction (STEMI) of anterior wall Thyroid cancer Thyromegaly Type 2 diabetes mellitus with hyperglycemia UTI (urinary tract infection) Vitamin D deficiency Surgical History Surgical History H/O elbow surgery left elbow History of ankle surgery History of ankle surgery History of left mastectomy History of right hip hemiarthroplasty History of thyroid surgery Hx of breast lump removal Hx of cataract surgery 08-10-2024 right eye, left eye 07-24-2024 Hx of heart artery stent Hx of [...] Onc) LAB RESULTS No Data to Display Social Determinants of Health Screening SDOH last assessed in clinic: 12/13/24 Will the patient participate in the screening?: Yes Do you worry about having a steady place to live?: No In the past 12 months, have you had to go without electric, gas, oil, or water in your home?: No Have you or anyone in your house had to go without enough food to eat?: No Has lack of reliable transportation kept you from medical appointments or from doing things needed for daily living?: No Has anyone in your support network made you feel unsafe for any reason?: No Does the patient want assistance with any of the above?: No Dictated By: Tosha Patel MD DD/ [id number] Signed By: <Electronically signed by Tosha Patel MD> 12/13/[address] [facility] Work Phone: Reason for referral (narrative)* Consultation (Routine) - Authorized Specialty Diagnoses / Procedures Referred By Contac t Referred To Contact Cardiology Diagnoses Coronary artery disease involving hopi coronary artery of hopi heart without angina pectoris Procedures Follow Up In Cardiology Yusuf Hayward MD [address] [address], [address] [address] Yusuf Hayward MD [address] [place] [address] 2, Mg [address] [place] [id number] Referral ID Status Reason Start Date Expiration Date V isits Requested Visits Authorized [id number] Authorized 01/26/2024 01/25/[address] [facility] Work Phone: Reason for referral (narrative)* Consultation (Routine) - Authorized Specialty Diagnoses / Procedures Referred By Contac t Referred To Contact Cardiac Rehabilitation Diagnoses Coronary artery disease involving hopi heart, unspecified vessel or lesion type, unspecified whether angina present Cardiomyopathy, ischemic Yusuf Mcdermott DO [address] [place] [address] 2, Mg [address] [place] [id number] Referral ID Status Reason Start Date Expiration Date Visits Requested Visits Authorized [id number] Authorized Specialty Services Required 07/13/2024 07/13/2025 1 1 Scheduling Instructions [facility] * Imaging (Routine) - Pending Review Specialty Diagnoses / Procedures Referred By Contac t Referred To Contact Radiology Diagnoses Coronary artery disease involving hopi heart, unspecified vessel or lesion type, unspecified whether angina present Cardiomyopathy, ischemic Procedures NM heart blood pool ejection fraction wall motion (MUGA) Yusuf Mcdermott DO [address] [place] [address] 2, [address] [address] Referral ID Status Reason Start Date Expiration Date Visits Requested Visits Authorized [id number] Pending Review Perform Procedure 07/13/2024 07/13/2025 2 2 * Consultation (Routine) - Authorized Specialty Diagnoses / Procedures Referred By Contac t Referred To Contact Cardiology Diagnoses Coronary artery disease involving hopi heart, unspecified vessel or lesion type, unspecified whether angina present Procedures Follow Up In Cardiology Yusuf Mcdermott DO [address] [place] [address] 2, Mg [address] [place] [address] José Antonio Hills, RAT BREEDER-DIRECTOR OF EVENTS [facility] [facility] 2, Mg [address] [place] [id number] Referral ID Status Reason Start Date Expiration Date V isits Requested Visits Authorized [id number] Authorized 07/13/2024 07/13/[address] [facility] Work Phone: Reason for visit Narrative* Imaging (Routine) - Authorized Specialty Diagnoses / Procedures Referred By Contac t Referred To Contact Radiology Diagnoses Coronary artery disease involving hopi heart, unspecified vessel or lesion type, unspecified whether angina present Cardiomyopathy, ischemic Procedures NM heart blood pool ejection fraction wall motion (MUGA) Yusuf Mcdermott DO 217 [facility] 2, [address] [address] Phone: tel: fax: Referral ID Status Reason Start Date Expiration Date Visits Requested Visits Authorized [id number] Authorized Perform Procedure 07/13/2024 07/13/[address] [facility] Work Phone: Summary Purpose Family History No [...] 11:14am Hospital Course Note MR#: [id number] I [facility] Pt. Name: Heidi Palmer Admitted: 12/13/2018 Discharged: 12/16/2018 Date of : 1940 Physician: Kurtis Stacy M.D. DISCHARGE SUMMARY DISCHARGE PHYSICIAN: Kurtis Stacy M.D. SERVICE: Med-B. PRIMARY DIAGNOSES: 1. Sepsis, secondary to urinary tract infection, resolved. 2. Metabolic encephalopathy, resolved. 3. Sciatica pain. 4. Coronary artery disease, status post stent 5 years ago. 5. Hypertension. 6. Bxu-zqdzjof-veipboizv diabetes. 7. Hypothyroidism. CONSULTS: None. PROCEDURES: None. SUMMARY OF HOSPITAL COURSE: The patient is a 78-year-old female patient with a past medical history of hypertension, gna-ylrjbha-imqkxgper diabetes, hypothyroidism, coronary artery diease status post stents 5 years ago and sciatica pain, who presented from [facility] due to concern of stroke. Her son [...] of thyroid surgery Mass of right lung [id number] History of right hip hemiarthroplasty BMI 26.0-26.9,adult [...] of thyroid surgery Mass of right lung [id number] History of right hip hemiarthroplasty BMI 26.0-26.9,adult [...] Hyperlipidemia Type 2 diabetes mellitus with hyperglycemia Chief Complaint DMN f/u Lung Mass [facility] follow up Reason for Visit BMI 26.0-26.9,adult Dietary counseling and surveillance Hyperlipidemia Hypertension Type 2 diabetes mellitus with hyperglycemia Mass of right lung Mass of right lung CAD (coronary artery disease) Diabetes Hyperlipidemia Type 2 diabetes mellitus with hyperglycemia Chief Complaint Stemi Stemi [facility] Hosp follow up CC Adult Risk Stratification 10 week f/u-DMN f/u / rocio on phone Reason for Visit CAD (coronary artery disease) Diabetes Hyperlipidemia Type 2 diabetes mellitus with hyperglycemia Chief Complaint Admit Date 10 week f/u-DMN f/u / rocio on phone [facility]2023 8:43am DMN f/u- on phone December 06, 2024 1 0:50am Reason for Visit Admit Date BMI 26.0-26.9,adult September 08, 2024 8 :43am Dietary counseling and surveillance Jhony 2023 8:43am Hyperlipidemia September 08, 2024 8 :43am Hypertension September 08, 2024 8 :43am Type 2 diabetes mellitus with hyperglyce [facility] September 08, 2024 8:43am Chief Complaint Admit Date DMN f/u- on phone December 06, 2024 1 0:50am Follow Up December 13, 2024 1 2:44pm Lung Mass December 13, 2024 1 2:50pm Reason for Visit Admit Date BMI 26.0-26.9,adult December 06, 2024 1 0:50am Dietary counseling and surveillance Delfino morrison 2024 10:50am Hyperlipidemia December 06, 2024 1 0:50am Hypertension December 06, 2024 1 0:50am Type 2 diabetes mellitus with hyperglyce [facility] December 06, 2024 10:50am History of left breast cancer December 132024 12:44pm Mass of right lung December 13, 2024 1 2:44pm History of thyroid surgery December 13, 2024 12:44pm History of left breast cancer December 132024 12:50pm Mass of right lung December 13, 2024 1 2:50pm History of thyroid surgery December 13, 2024 12:50pm Chief Complaint Admit Date DMN f/u- on phone December 06, 2024 1 0:50am Follow Up December 13, 2024 1 2:44pm Lung Mass December 13, 2024 1 2:50pm [email or web address] January 22, 2025 1:2 9pm Chief Complaint Admit Date DMN f/u- on phone December 06, 2024 1 0:50am Follow Up December 13, 2024 1 2:44pm Lung Mass December 13, 2024 1 2:50pm [email or web address] [email or web address] January 22, 2025 1:2 9pm 6 week DL January 24, 2025 10: 53am Reason for Visit Admit Date BMI 26.0-26.9,adult December 06, 2024 1 0:50am Dietary counseling and surveillance Delfino prince 2024 10:50am Hyperlipidemia December 06, 2024 1 0:50am Hypertension December 06, 2024 1 0:50am Type 2 diabetes mellitus with hyperglyce [facility] December 06, 2024 10:50am History of left breast cancer December 132024 12:44pm Mass of right lung December 13, 2024 1 2:44pm History of thyroid surgery December 13, 2024 12:44pm History of left breast cancer December 132024 12:50pm Mass of right lung December 13, 2024 1 2:50pm History of thyroid surgery December 13, 2024 12:50pm Type 2 diabetes mellitus with hyperglyce [facility] January 24, 2025 10:53am Additional Source Comments INFORMATION SOURCE (unrecogn ized section and content) DATE CREATED AUTHOR 12/27/2018 [facility] DATE CREATED AUTHOR AUTHOR'S ORGANIZ ATION 12/22/2022 [facility] DATE CREATED AUTHOR AUTHOR'S ORGANIZ ATION 01/16/2023 [facility] DATE CREATED AUTHOR AUTHOR'S ORGANIZ ATION 01/16/2023 [employer] DATE CREATED AUTHOR AUTHOR'S ORGANIZ ATION 06/18/2024 [facility] EPIC DATE CREATED AUTHOR AUTHOR'S ORGANIZ ATION 06/30/2024 [facility] DATE CREATED AUTHOR AUTHOR'S ORGANIZ ATION 10/25/2024 [facility] DATE CREATED AUTHOR AUTHOR'S ORGANIZ ATION 01/27/2025 [facility] DATE CREATED AUTHOR AUTHOR'S ORGANIZ ATION 01/30/2025 [facility] REASON FOR VISIT (unrecogniz ed section and content) Reason Comments Annual Exam 1year Reason Comments Follow-up [facility] 06/30 s/p st naila PCI Reason Comments Follow-up 4m Specialty Diagnoses / Procedures Referred By Jenny t Referred To Contact Cardiology Diagnoses Coronary artery disease involving hopi heart, unspecified vessel or lesion type, unspecified whether angina present Procedures Follow Up In Cardiology Yusuf Mcdermott DO [address] [facility] 2, [address] [address] Phone: tel: fax: José Antonio Hills, RAT BREEDER-DIRECTOR OF EVENTS 703 [facility] 2, [address] [address] Phone: tel: fax: Referral ID Status Reason Start Date Expiration Date V isits Requested Visits Authorized [id number] Authorized 07/13/2024 07/13/2025 1 1 Reason Comments Follow-up 1 month Follow up fo r Coronary Artery Disease Specialty Diagnoses / Procedures Referred By Jenny del valle Referred To Contact Cardiology Diagnoses Coronary artery disease involving hopi heart, unspecified vessel or lesion type, unspecified whether angina present Procedures Follow Up In Cardiology José Antonio Hills, RAT BREEDER-DIRECTOR OF EVENTS 7[address] [facility] 2, [address] [address] Phone: tel: fax: Referral ID Status Reason Start Date Expiration Date V isits Requested Visits Authorized [id number] Authorized 12/20/2024 12/20/2025 1 1 Care Teams (unrecognized sec tion and content) Team Status: Active Member Role Status Dates Mica Hook MD Primary Care Provider Active Team Status: Inactive Member Role Status Dates Mica Hook MD Primary Care Provider Active Start: September 08, 2024 End: September 08, 2024 Norma Diaz APRN Attending Provider Active Start: September 08, 2024 End: September 08, 2024 Team Status: Inactive Member Role Status Dates Mica Hook MD Primary Care Provider Active Start: December 06, 2024 End: December 06, 2024 Norma Diaz APRN Attending Provider Active Start: December 06, 2024 End: December 06, 2024 Team Status: Active Member Role Status Dates Mica Hook MD Primary Care Provider Active Start: June 29, 2024 Wilner Allen MD Attending Provider Active St art: June 29, 2024 Team Status: Inactive Member Role Status Dates Mica Hook MD Primary Care Provider Active Start: June 29, 2024 End: June 30, 2024 Roberto Carlos Mcdermott , Admit Provider, Att ending Provider Active Start: June 29, 2024 End: June 30, 2024 Tl Wild MD Other Provider Active Start: June 29, 2024 End: June 30, 2024 Team Status: Active Member Role Status Dates Mica Hook MD Primary Care Provider Active Start: June 29, 2024 West Saez DO Attending Provider Active Sta rt: June 29, 2024 Team Status: Active Member Role Status Deion Hook MD Primary Care Provider Active Start: June 29, 2024 Roberto Carlos Mcdermott DO Admit Provider, Oth er Provider Active Start: June 29, 2024 Tl Wild MD Attending Pr ovider, Other Provider Active Start: June 29, 2024 Team Status: Inactive Member Role Status Dates Mica Hook MD Primary Care Provider Active Start: July 12, 2024 End: July 12, 2024 Norma Diaz APRN Active Star t: July 12, 2024 End: July 12, 2024 Chary Dozier RN Attending Provider Active Start: July 12, 2024 End: July 12, 2024 Team Status: Inactive Member Role Status Dates Mica Hook MD Primary Care Provide r, Attending Provider Active Start: September 04, 2024 End: September 04, 2024 Team Status: Active Member Role Status Dates Mica Hook MD Primary Care Provider Active Start: September 05, 2024 Norma Diaz APRN Attending Provider Active Start: September 05, 2024 Team Status: Active Member Role Status Dates Mica Hook MD Primary Care Provide r, Attending Provider Active Start: September 06, 2024 Team Status: Inactive Member Role Status Dates Mica Hook MD Primary Care Provider Active Start: April 19, 2024 End: April 19, 2024 Olvin Rose RN Attending Provider Active St art: April 19, 2024 End: April 19, 2024 Norma Diaz , RAT BREEDER Active Star t: April 19, 2024 End: [...] Active Nii Cooper DO Emergency Provider Active Charles Salinas , Other Provider Active Uma Mccauley MD Other [...] Nii Cooper , DO Emergency Provider Active Epi Booth MD [...] RN Other Provider Active Danna Farias , RN Other Provider Active Belinda Vo , RN Other Provider Active Merissa Reyes , JANETH Other Provider Active Stacey Herzog , JANETH Other Provider Active Goldie Dale MD Other Provider Active Lyudmila Bejarano , RAT BREEDER Other Provider Active Quin Pittman , DO Other Provider Active Gonzales Bagley MD Other Provider Active Hank Vasquez , DO Other Provider Active Kareem Parker MD Other Provider Active Ailyn Cantu MD Other Provider Active Dary Kline , RAT BREEDER Other Provider Active Brian Merino MD Other [...] DO Other Provider Active Yelitza Fischer , RAT BREEDER Other Provider Active Sergo Pike , DO Other Provider Active Luis Moay MD Other Provider Active Ysabel Hills , RAT BREEDER Other Provider Active Leia Vega , RAT BREEDER Other Provider Active Chin Rodarte MD Other Provider Active Nabil Buitrago MD Other Provider Active Emeli Guzman , RAT BREEDER Other Provider Active Mehnaz Bowden , DO Other Provider Active Syl Hammond RN Other Provider Active Team Status: Inactive Member Role Status Dates Norma Diaz , RAT BREEDER Attending Provider Active Start: October 11, 2023 End: October 11, 2023 Team Status: Inactive Member Role Status Dates Mica Hook MD Primary Care Provider Active Start: October 11, 2023 End: October 15, 2023 Nii Cooper , Emergency Provider Active Sta rt: October 11, 2023 End: October 15, 2023 Epi Booth MD Other Provider Active Start: Alpesh [email or web address] End: October 15, 2023 Chin Rodarte [...] 2023 End: November 03, 2023 Stella Mascorro , JANETH Other Provider Active Star t: October 15, 2023 End: November 03, 2023 Jennifer Arrieta RN Other Provider Active Start : October 15, 2023 End: November 03, 2023 Danna Farias , JANETH Other Provider Active Start: [email or web address] End: November 03, 2023 Belinda Vo RN Other Provider Active Star t: October 15, 2023 End: November 03, 2023 Merissa Reyes RN Other Provider Active Start : October 15, 2023 End: November 03, 2023 Stacey Herzog RN Other Provider Active Start: [email or web address] End: November 03, 2023 Goldie Dale [...] Jasiel Bella MD Other Provider Active Start: [email or web address] End: November 03, 2023 Jean Monson [...] Active Start: Oct End: November 03, 2023 Annie Perez HOME ENERGY CONSULTANT SUPERVISOR-C Other Provider Active St art: October 15, 2023 End: November 03, 2023 Eliot Gar MD Other Provider Active Start: October 15, 2023 End: November 03, 2023 Rm Wilson MD Other Provider Active Start: 2022 End: November 03, 2023 Humberto Chamorro MD Other Provider Active Start: Oct End: November 03, 2023 Tavo Corbett MD Other Provider Active Start: [email or web address] End: November 03, 2023 Isabel Ochoa DO Other Provider Active Start: 2022 End: November 03, 2023 Esau Wiley DO Other Provider Active Start : October 15, 2023 End: November 03, 2023 Yves Rollins DO Other Provider Active Sta rt: October 15, 2023 End: November 03, 2023 Yelitza Fischer APRN Other Provider Active Start: October 15, 2023 End: November 03, 2023 Sergo Pkie DO Other Provider Active Start: October 15, [...] Chin Rodarte MD Other Provider Active Start: D [email or web address] End: November 03, 2023 Nabil Buitrago MD Other Provider Active S tart: October 15, 2023 End: November 03, 2023 Emeli Guzman APRN Other Provider Active S tart: October 15, 2023 End: November 03, 2023 Mehnaz Bowden DO Other Provider Active Start: October 15, 2023 End: November 03, 2023 Syl Hammond RN Other Provider Active Start: Alpesh [email or web address] End: November 03, 2023 Team Status: Inactive [...] Attending Provider Active Start: November 18, 2023 Card Services Specialist Relationship Specialty Start Date End Date Mica Hook MD [address] [place] [id number] PCP - General Family Medicine 01/26/24 Yusuf Hayward MD [address] [place] [address], [address] [address] Consulting Physician Cardiology 01/26/24 Card Services Specialist Relationship Specialty Start Date End Date Mica Hook MD [address] [place], [place] [address] [address] PCP - General Family Medicine 10/09/24 Yusuf Hayward MD Consulting Physician Cardiology 01/26/24 Card Services Specialist Relationship Specialty Start Date End Date Mica Hook MD PCP - General Family Medicine 01/26/24 Yusuf Hayward MD Consulting Physician Cardiology 01/26/24 Brown, Karen, can machine operatorFlat Ironer 06/29/24 Team Status: Inactive Member Role Status Dates Mica Hook MD Primary Care Provider Active Start: December 13, 2024 End: December 13, 2024 Tosha Patel MD Attending Provider Active Start: December 13, 2024 End: December 13, 2024 Team Status: Active Member Role Status Dates Mica Hook MD Primary Care Provider Active Start: December 13, 2024 Tosha Patel MD Attending Provider Active Start: December 13, 2024 Card Services Specialist Relationship Specialty Start Date End Date Mica Hook MD [address] [place] [address] PCP - General Family Medicine 10/09/24 Yusuf Hayward MD Consulting Physician Cardiology 01/26/24 Card Services Specialist Relationship Specialty Start Date End Date Mica Hook MD [address] [place] [address] PCP - General Family Medicine 10/09/24 Yusuf Hayward MD Consulting Physician Cardiology 01/26/24 Team Status: Active Member Role Status Dates Mica Hook MD Primary Care Provider Active Start: January 01, 2025 José Antonio Hills APRN Attending Provider Active S tart: January 01, 2025 Team Status: Inactive Member Role Status Dates Mica Hook MD Primary Care Provider Active Start: January 22, 2025 End: January 22, 2025 José Antonio Hills APRN Attending Provider Active S tart: January 22, 2025 End: January 22, 2025 Team Status: Inactive Member Role Status Dates Mica Hook MD Primary Care Provider Active Start: January 24, 2025 End: January 24, 2025 Norma Diaz APRN Active Star t: January 24, 2025 End: January 24, 2025 Olvin Rose RN Attending Provider Active St art: January 24, 2025 End: January 24, 2025 Goals (unrecognized section and content) Goals may [...] BE BASED ON THE PRIMARY CLINICAL RECORDS. [facility]. provides no warranty or guarantee of the accuracy or completeness of information in this document.
[2025-02-02 12:38] LABS: Anion Gap 14.5; BUN Creatinine Ratio 16.7; Calcium 10.4 mg/dL (8.5-10.1); Carbon Dioxide 28.2 mmol/L (21.0-32.0); Chloride 96 mmol/L (98-107); Estimated GFR (African America >60 (>=60 mL/min/1.73m^2); Estimated GFR (Non-African Ame 52 (>=60 mL/min/1.73m^2); Glucose 296 mg/dL (74-106); Potassium 4.7 mmol/L (3.5-5.1); Sodium 134 mmol/L (136-145)
== END 2025-02-02 11:56 | disposition home or self-care (01) ==
LOC: LAB 11:57
PROVIDERS: PCP Family Medicine; Visit Provider Nurse Practitioner
DX: I25.10 Atherosclerotic heart disease of native coronary artery without angina pectoris (principal); I25.5 Ischemic cardiomyopathy
CPT/HCPCS: 36415; 80048

== ENCOUNTER 2025-05-23 13:01 | Outpatient (OUT) | payer OTHER, SELFPAY ==
--- OUTSIDE RECORDS SUMMARY | 2025-05-09 11:30 | XMS_ITS | Encounter Summary ---
Author Organization [facility] [place] Address [address] [place] [address] Phone Care Team Providers Care Veterinary Assistant Name Role Phone Yusuf Hayward MD, Marcia E MD Primary Care Provider [phone] Reason for Referral * Imaging (Routine) - Pending Review Specialty Diagnoses / Procedures Referred By Jenny del valle Referred To Contact Cardiology Diagnoses Edema, unspecified type Type 2 diabetes mellitus with other circulatory complications Procedures Vascular US PVR Without Exercise [place] APRN-CNP 703 [facility] 2, [address] [address] Phone: tel: fax: Referral ID Status Reason Start Date Expiration Date Visits Requested Visits Authorized [id number] Pending Review Perform Procedure 05/09/2025 05/09/2026 1 1 * Consultation (Routine) - Authorized Specialty Diagnoses / Procedures Referred By Jenny t Referred To Contact Cardiology Diagnoses Edema, unspecified type Procedures Follow Up In Cardiology [place] APRN-CNP 703 [facility] [address], [address] [address] Phone: tel: fax: Referral ID Status Reason Start Date Expiration Date V isits Requested Visits Authorized [id number] Authorized 05/09/2025 05/09/2026 1 1 Reason for Visit * Reason Comments Follow-up Echocardiogram resul ts * Consultation (Routine) - Authorized Specialty Diagnoses / Procedures Referred By Jenny t Referred To Contact Cardiology Diagnoses Edema, unspecified type Procedures Follow Up In Cardiology [place] APRN-ICE CREAM FREEZER 703 [facility] [address], [address] [address] Phone: tel: fax: Referral ID Status Reason Start Date Expiration Date V isits Requested Visits Authorized [id number] Authorized 02/26/2025 02/26/2026 1 1 Encounter Details Date Type Department Care Team (Latest Contact Info) Description 05/09/2025 11:30 AM EDT Office Visit [facility] [address] [id number] [place] APRN-ICE CREAM FREEZER 703 [facility] 2, [address] [address] Coronary artery disease involving [place]ai heart, unspecified vessel or lesion type, unspecified whether angina present (Primary Dx); Edema, unspecified type; Essential hypertension, benign; Hyperlipidemia, unspecified hyperlipidemia type; Cardiomyopathy, ischemic; BMI 27.0-27.9,adult; Dyspnea on exertion; Type 2 diabetes mellitus with other circulatory complications Social History Tobacco Use Types Packs/Day Years Used Date Smoking Tobacco: Never Smokeless Tobacco: Never Alcohol Use Standard Drinks/Week Comments Yes 1 (1 standard drink = 0.6 oz pur e alcohol) monthly Comments Unknown Sex and Gender Information Value Date Recorded Sex Assigned at Not on file Legal Sex Female 7:51 PM EST Gender Identity Not on file Sexual Orientation Not on file documented as of this encounter Last Filed Vital Signs Vital Sign Reading Time Taken Comments Blood Pressure 100/68 05/09/2025 11:47 AM EDT Pulse 68 05/09/2025 11:47 AM EDT Temperature - - Respiratory Rate - - Oxygen Saturation - - Inhaled Oxygen Concentration - - Weight 74.3 kg (163 lb 12.8 oz) 025 11:47 AM EDT Height 165.1 cm (5' 5 ) 05/09/2025 11:4 7 AM EDT Body Mass Index 27.26 05/09/2025 11:47 AM EDT documented in this encounter Patient Instructions * Patient Instructions* WHITNEY Garces - 05/09/2025 11:30 AM EDT Please bring all medicines, [...] making process incorporating patients unique circumstances, the followingtreatment plan will be initiated: 1. Prescription drug management of cardiovascular medication for efficacy, adherence to treatment, side effect assessment and polypharmacy. Current treatment clinically warranted and to continue without modifications. 2. Labs (chem6, BNP) 3. PVR without exercise (pain, edema, DM) 4. Return for follow-up; in the interim, contact the office if new symptoms arise. AUTOMOTIVE MANAGER after testing documented in this encounter Progress Notes * WHITNEY Garces - 05/09/2025 11:30 AM EDT Chief Complaint My legs are still swelling Reason for Visit Testing follow-up Patient presents to the office today for outpatient follow-up for edema Last evaluated in clinic by myself February 2025. At that time, transitioned over to Demadex she advertently did not complete lab work. Repeat echo showed normal LVEF 60 to 65%. Presents today ambulatory with steady gait. Accompanied by daughter Patient denies any hospitalizations or significant changes to interval medical history since last office follow-up. History of Present Illness Patient is very pleasant 85-year-old female who presents for she continues to have lower extremity edema. Edema is increasing and it is making her legs painful and difficulty with ambulation. Fortunately there is no open blisters or seeping. No evidence of cellulitis. She has noted no benefit to itfrom Demadex. She is sleeping in the recliner more more often, tries to keep her legs elevated in the day. She denies any true claudication symptoms. I am really perplexed as to why she continues to have this edema, will rule out PAD. I did not have labs so I did not increase diuretic Review of Systems Cardiovascular: Positive for leg swelling. Negative for chest pain, dyspnea on exertion, irregular heartbeat, near-syncope, orthopnea, palpitations, paroxysmal nocturnal dyspnea and syncope. Visit Vitals BP 100/68 (BP Location: Right arm, Patient Position: Sitting) Pulse 68 Ht 1.651 m (5' 5 ) Wt 74.3 kg (163 lb 12.8 oz) BMI 27.26 kg/m² Smoking Status Never BSA 1.85 m² Physical Exam Vitals and nursing note reviewed. [...] and Affect: Mood normal. Behavior: Behavior normal. ALLERGIES: Metformin, Oxycodone, and Penicillins Current Outpatient Medications Medication Instructions acetaminophen (TYLENOL) 325 mg, Every 8 hours PRN ascorbic acid (VITAMIN C) 500 mg, Daily [...] (VOLTAREN) 2 g, 3 times daily PRN diphenhydrAMINE (SOMINEX) 25 mg, Nightly PRN insulin glargine-lixisenatide (Soliqua 100/33) 100 unit-33 mcg/mL insulin pen 17 Units, Daily levothyroxine (SYNTHROID, LEVOXYL) 50 mcg, Daily metoprolol succinate XL (TOPROL-XL) 50 mg, Daily nitroglycerin (NITROSTAT) 0.4 mg, sublingual, Every 5 min PRN sennosides-docusate sodium (Juliana-Colace) 8.6-50 mg tablet 1 tablet, 2 times daily spironolactone (ALDACTONE) 25 mg, oral, 2 times daily torsemide (DEMADEX) 40 mg, oral, Daily valsartan (DIOVAN) 40 mg, 2 times daily zolpidem (AMBIEN) 5 mg, Nightly PRN Assessment: CAD (coronary artery disease) Remote PCI Jun 29, 2024 Ant STEMI mLAD PCI/[place] 2.5x15mm & 2.5x8mm M/d RCA PCI/[place] 3x15mm & 2.5x22mm Essential hypertension, benign optimal in office Hyperlipidemia Tolerating high intensity statin December 2024 LDL 89, HDL 57 Cardiomyopathy, ischemic ICM HF improved EF 64% Oct 2024 MUGA (at time of anterior STEMI EF 35-40% with anterior apical hypokinesis) April 2025 TTE LVEF 60-65% Resolution of anterior apical hypokinesis BMI 27.0-27.9,adult Reviewed the merits of healthy lifestyle choices on overall cardiovascular health. Edema January 2025: 1 month ago patient presented off of [...] send for ultrasound to rule out DVT. February 2025: USN no DVT. Minimal benefit lasix. ECG no atrial fib Otherwise, on no offending agents. Repeat TTE with normal LVEF, normal RV function Most recent potassium 4.3, creatinine 0.98 She has had no improvement with transitioned over to Demadex. It is not dependent in nature Cannot tolerate compression stockings It is becoming painful, interfering with ambulation. Although unlikely, will check for PAD. Plan: Through informed decision making process incorporating patients unique circumstances, the followingtreatment plan will be initiated: 1. Prescription drug management of cardiovascular medication for efficacy, adherence to treatment, side effect assessment and polypharmacy. Current treatment clinically warranted and to continue without modifications. 2. Labs (chem6, BNP) 3. PVR without exercise (pain, edema, DM) 4. Return for follow-up; in the interim, contact the office if new symptoms arise. AUTOMOTIVE MANAGER after testing [place] MSN, SOLDERING MACHINE OPERATOR-ICE CREAM FREEZER, PMHNP-[facility] [place], [place] Please excuse any errors in grammar or translation related to this dictation. Voice recognition software was utilized to prepare this document. documented in this encounter Miscellaneous Notes * Assessment & Plan Note - WHITNEY Garces - 05/09/2025 4:47 PM EDT Associated Problem(s): Edema January 2025: 1 month ago patient presented off of [...] send for ultrasound to rule out DVT. February 2025: USN no DVT. Minimal benefit lasix. ECG no atrial fib Otherwise, on no offending agents. Repeat TTE with normal LVEF, normal RV function Most recent potassium 4.3, creatinine 0.98 She has had no improvement with transitioned over to Demadex. It is not dependent in nature Cannot tolerate compression stockings It is becoming painful, interfering with ambulation. Although unlikely, will check for PAD. * Assessment & Plan Note - WHITNEY Garces - 05/09/2025 4:46 PM EDT Associated Problem(s): BMI 27.0-27.9,adult Reviewed the merits of healthy lifestyle choices on overall cardiovascular health. * Assessment & Plan Note - WHITNEY Garces - 05/09/2025 4:46 PM EDT Associated Problem(s): Cardiomyopathy, ischemic ICM HF improved EF 64% Oct 2024 MUGA (at time of anterior STEMI EF 35-40% with anterior apical hypokinesis) April 2025 TTE LVEF 60-65% Resolution of anterior apical hypokinesis * Assessment & Plan Note - WHITNEY Garces - 05/09/2025 4:46 PM EDT Associated Problem(s): Hyperlipidemia Tolerating high intensity statin December 2024 LDL 89, HDL 57 * Assessment & Plan Note - WHITNEY Garces - 05/09/2025 4:46 PM EDT Associated Problem(s): Essential hypertension, benign optimal in office * Assessment & Plan Note - WHITNEY Garces - 05/09/2025 4:46 PM EDT Associated Problem(s): CAD (coronary artery disease) Remote PCI Jun 29, 2024 Ant STEMI mLAD PCI/[place]oses 2.5x15mm & 2.5x8mm M/d RCA PCI/[place] 3x15mm & 2.5x22mm documented in this encounter Plan of Treatment Upcoming Encounters Date Type Department Care Team (Late st Contact Info) Description 06/06/2025 11:00 AM EDT Office Visit [facility] [address] [address] [place] APRN-CNP 703 [facility] 2, [address] [place] [address] Scheduled Orders Name Type Priority Associated Diagnoses Orde r Schedule Basic Metabolic Panel Lab Routine Edema, unspecified type Coronary artery disease involving [place] heart, unspecified vessel or lesion type, unspecified whether angina present Expected: 05/09/2025 (Approximate), Expires: 05/09/2026 B-Type Natriuretic Peptide Lab Routine Edema, unspecified type Coronary artery disease involving h[place] heart, unspecified vessel or lesion type, unspecified whether angina present Dyspnea on exertion Expected: 05/09/2025 (Approximate), Expires: 05/09/2026 Vascular US PVR Without Exercise Vascular Ultrasound Routine Edema, unspecified type Type 2 diabetes mellitus with other circulatory complications Expected: 05/09/2025 (Approximate), Expires: 05/09/2027 documented as of this encounter Visit Diagnoses Diagnosis Coronary artery disease involving h[place]apai heart, unspecified vessel or lesion type, unspecified whether angina present- Primary Edema, unspecified type Essential hypertension, benign Hyperlipidemia, unspecified hyperlipidemia type Cardiomyopathy, ischemic Other specified forms of chronic ischemic heart disease BMI 27.0-27.9,adult Dyspnea on exertion Other dyspnea and respiratory abnormality Type 2 diabetes mellitus with other circulatory complications documented in this encounter Additional Health Concerns Assessment Noted Time A fall risk assessment has been complete d for the patient 01/22/2025 11:35 AM EDT documented as of this encounter Care Teams Veterinary Assistant Relationship Specialty Start Date End Date Shanique Fletcher MD [address] [place] [address] PCP - General Family Medicine 10/09/24 Yusuf Hayward MD Consulting Physician Cardiology 01/26/24 documented as of this encounter
--- OUTSIDE RECORDS SUMMARY | 2025-05-23 13:07 | XMS_ITS | Encounter Summary ---
Author Organization [facility] Address [address] [place] [address] Phone Care Team Providers Care Medium Cycle Salesperson Name Role Phone Shanique Fletcher MD Primary Care Provider [phone] Shanique Fletcher MD Primary Care Provider [phone] Yusuf Hayward MD Unavailable UnavailKaren Goncalves RN Unavailable Unavailable Shanique Fletcher MD Primary Care Provider [phone] Encounter Details Date Type Department Care Team (Late st Contact Info) Description 12/09/2023 Scanned Document [facility] [address] [place] [id number] Scanning, Generic Provider Social History Tobacco Use Types Packs/Day Years Used Date Smoking Tobacco: Never Assessed Comments Unknown Sex and Gender Information Value Date Recorded Sex Assigned at Not on file Legal Sex Female 7:51 PM EST Gender Identity Not on file Sexual Orientation Not on file documented as of this encounter Plan of Treatment Upcoming Encounters Date Type Department Care Team (Late st Contact Info) Description 06/06/2025 11:00 AM EDT Office Visit [facility] 703 [facility] [address] [place] [address] [place], GRAIN SACKER-AUDITOR IN CHARGE [address] [facility] [address] [place] [address] documented as of this encounter Visit Diagnoses Not on filedocumented in this encounter Care Teams Medium Cycle Salesperson Relationship Specialty Start Date End Date Shanique Fletcher MD [facility] [place] [address] [place] [address] PCP - General 11/08/14 01/25/24 Shanique Fletcher MD [address] [place] [address] PCP - General Family Medicine 01/26/24 10/08/24 Shanique Fletcher MD [address] [place], [place] [address] [address] PCP - General Family Medicine 10/09/24 Yusuf Hayward MD [address] [place] [address] Consulting Physician Cardiology 01/26/24 Karen Stephens, pelt graderNarcotics Agent 06/29/24 10/16/24 documented as of this encounter
--- OUTSIDE RECORDS SUMMARY | 2025-05-23 13:07 | XMS_ITS | Encounter Summary ---
Author Organization [facility] Address [address] [place] [address] Phone Care Team Providers Care Information Clerk Cashier Name Role Phone Shanique Fletcher MD Primary Care Provider [phone] Yusuf Hayward MD Unavailable Karen Peng RN Unavailable Unavailable Shanique Fletcher MD Primary Care Provider [phone] Encounter Details Date Type Department Care Team (Late st Contact Info) Description 10/03/2024 Scanned Document [facility] [address] [place] [address] Scanning, Generic Provider Social History Tobacco Use [...] Description 06/06/2025 11:00 AM EDT Office Visit [facility] 703 [facility] Mg [address] [place] [address] [place], APPLICATION INTEGRATION ARCHITECT-REHABILITATION MEDICINE PHYSICIAN 703 [facility] 2, [address] [place] [address] documented as of this encounter Visit Diagnoses Not on filedocumented in this encounter Additional Health Concerns Assessment Noted Time A fall risk assessment has been complete d for the patient 07/13/2024 11:11 AM EDT documented as of this encounter Care Teams Information Clerk Cashier Relationship Specialty Start Date End Date Shanique Fletcher MD PCP - General Family Medicine 01/26/24 10/08/24 Shanique Fletcher MD [address] [place] [address] PCP - General Family Medicine 10/09/24 Yusuf Hayward MD Consulting Physician Cardiology 01/26/24 Karen Stephens, model and mold makerRigging And Controls Aircraft Mechanic 06/29/24 10/16/24 documented as of this encounter
--- OUTSIDE RECORDS SUMMARY | 2025-05-23 13:07 | XMS_ITS | Encounter Summary ---
Author Organization [facility] Address [address] [place] [address] Phone Care Team Providers Care Billet Recorder Name Role Phone Shanique Fletcher MD Primary Care Provider [phone] Shanique Fletcher MD Primary Care Provider [phone] Yusuf Hayward MD Unavailable UnavailKaren Goncalves RN Unavailable Unavailable Shanique Fletcher MD Primary Care Provider [phone] Encounter Details Date Type Department Care Team (Late st Contact Info) Description 11/02/2023 Scanned Document [facility] [address] [place] [phone] Scanning, Generic Provider Social History Tobacco Use [...] Description 06/06/2025 11:00 AM EDT Office Visit [facility] [address] [facility] [address] [place] [address] [place], SANFORIZING MACHINE OPERATOR-HAND BASEBALL SEWER 703 [facility] [address], [address] [place] [address] documented as of this encounter Visit Diagnoses Not on filedocumented in this encounter Care Teams Billet Recorder Relationship Specialty Start Date End Date Shanique Fletcher MD [facility] [place] [address] [place] [address] PCP - General 11/08/14 01/25/24 Shanique Fletcher MD [address] [place] [address] PCP - General Family Medicine 01/26/24 10/08/24 Shanique Fletcher MD [address] [place], [place] [address]b[place] [address] PCP - General Family Medicine 10/09/24 Yusuf Hayward MD [address] [place] [address] Consulting Physician Cardiology 01/26/24 Karen Stephens, retail analytics managerSales Systems Engineer 06/29/24 10/16/24 documented as of this encounter
--- OUTSIDE RECORDS SUMMARY | 2025-05-23 13:07 | XMS_ITS | Encounter Summary ---
Author Organization [facility] Address [address] [place] [address] Phone Care Team Providers Care Edge Grinder Name Role Phone Shanique Fletcher MD Primary Care Provider [phone] Shanique Fletcher MD Primary Care Provider [phone] Yusuf Hayward MD Unavailable UnavailKaren Goncalves RN Unavailable Unavailable Shanique Fletcher MD Primary Care Provider [phone] Encounter Details Date Type Department Care Team (Late st Contact Info) Description 11/03/2023 Scanned Document [facility] [address] [place] [phone] Scanning, Generic Provider Social History Tobacco Use [...] Description 06/06/2025 11:00 AM EDT Office Visit [facility] 703 [facility] [address] [place] [address] [place], CRATE LINER-MICROARRAY ANALYST 703 [facility] [address], [address] [place] [address] documented as of this encounter Visit Diagnoses Not on filedocumented in this encounter Care Teams Edge Grinder Relationship Specialty Start Date End Date Shanique Fletcher MD [facility] [place] [address] [place] [address] PCP - General 11/08/14 01/25/24 Shanique Fletcher MD [address] [place] [address] PCP - General Family Medicine 01/26/24 10/08/24 Shanique Fletcher MD [address] [place], [place] [address]b[place] [address] PCP - General Family Medicine 10/09/24 Yusuf Hayward MD [address] [place] [address] Consulting Physician Cardiology 01/26/24 Karen Stephens, wafer slicerTerrazzo Installer 06/29/24 10/16/24 documented as of this encounter
--- OUTSIDE RECORDS SUMMARY | 2025-05-23 13:07 | XMS_ITS | Encounter Summary ---
Author Organization [facility] Address [address] [place] [address] Phone Care Team Providers Care Company Manager Name Role Phone Shanique Fletcher MD Primary Care Provider [phone] Yusuf Hayward MD Unavailable UnavailKaren Goncalves RN Unavailable Unavailable Shanique Fletcher MD Primary Care Provider Encounter Details Date Type Department Care Team (Late st Contact Info) Description 08/08/2024 Scanned Document [facility] [address] [place] [id number] Scanning, Generic Provider Social History Tobacco Use [...] on file Sexual Orientation Not on file COVID-19 Exposure Response Date Recorded In the last 10 days, have yo u been in contact with someone who was confirmed or suspected to have Coronavirus/COVID-19? No / Unsure 07/13/2024 10:24 AM EDT documented as of this encounter Plan of Treatment Upcoming Encounters Date Type Department Care Team (Late st Contact Info) Description 06/06/2025 11:00 AM EDT Office Visit [facility] 703 [facility] Mg [address] [place] [address] [place], GENERAL HANDLING SUPERVISOR-WINTER INTERN 703 [facility] [address], [address] [place] [address] documented as of this encounter Visit Diagnoses Not on filedocumented in this encounter Additional Health Concerns Assessment Noted Time A fall risk assessment has been complete d for the patient 07/13/2024 11:11 AM EDT documented as of this encounter Care Teams Company Manager Relationship Specialty Start Date End Date Shanique Fletcher MD PCP - General Family Medicine 01/26/24 10/08/24 Shanique Fletcher MD [address] [place] [address] PCP - General Family Medicine 10/09/24 Yusuf Hayward MD Consulting Physician Cardiology 01/26/24 Karen Stephens, assistant manager airside operationsTattoo Designer 06/29/24 10/16/24 documented as of this encounter
--- OUTSIDE RECORDS SUMMARY | 2025-05-23 13:07 | XMS_ITS | Clinical Summary ---
Author Organization [facility] Address [address] [place] [address] Care Team Providers Care Novelty Twister Operator Name Role Phone Shanique Fletcher MD Primary Care Provider [phone] Allergies Active Allergy Reactions Criticality Noted Date Comments Cilostazol Unknown 10/26/2014 Metformin Unknown,GI intolerance 10/26/2014 Oxycodone Hallucinations 11/02/2023 Other Reaction(s): Hallucinating Penicillins Anaphylaxis,GI intolerance High 11/02/2023 Medications ALPRAZolam (Xanax) 0.25 MG tablet Activ e aspirin 81 MG chewable tablet Chew 1 tablet every day by oral route. Active atorvastatin (Lipitor) 80 MG tablet Take 1 tablet by mouth Daily 4 Active diclofenac sodium 1 % gel Three times daily 4 Active fluconazole (Diflucan) 100 MG tablet Active furosemide (Lasix) 40 MG tablet Take 1 tablet twice a day by oral route for 90 days. 4 Active gabapentin (Neurontin) 300 MG capsule Take 1 capsule 3 times a day by oral route for 90 days. Active glyBURIDE (Diabeta) 2.5 MG tablet Take 1 tablet every day by oral route for 90 days. Active Lantus SoloStar 100 UNIT/ML pen 3 Active levothyroxine (Synthroid, Levoxyl) 50 MCG tablet Take 1 tablet every day by oral route for 90 days. Active lisinopril 5 MG tablet Take 1 tablet every day by oral route for 90 days. Active meclizine (Antivert) 12.5 MG tablet Active ondansetron ODT (Zofran-ODT) 4 MG disintegrating tablet Active ondansetron (Zofran) 4 MG tablet Active pioglitazone (Actos) 30 MG tablet Take 1 tablet every day by oral route for 90 days. Active KLOR-CON 10 MEQ ER tablet Take 1 tablet every day by oral route for 90 days. Active predniSONE (Deltasone) 20 MG tablet Active propranolol LA (Inderal LA) 160 MG 24 hr capsule Take 1 capsule every day by oral route for 90 days. 4 Active spironolactone (Aldactone) 25 MG tablet Twice daily 3 Active traMADol (Ultram) 50 MG tablet Take 1 tablet as needed by oral route for 30 days. Active zolpidem (Ambien) 10 MG tablet Take 1 tablet every day by oral route for 90 days. Active Active Problems Problem Noted Date Diagnosed Date Age-related nuclear cataract of both eyes 2023 Encounters Date Type Department Care Team Description 02/24/2025 Refill [facility] [address] [place] [address] Abundio Castillo, Age-related nuclear cataract of both eyes from Last 3 Months Social History Tobacco Use Types Packs/Day Years Used Date Smoking Tobacco: Never Tobacco Cessation:Counseling Given: Not Answered Comments Unknown Sex and Gender Information Value Date Recorded Sex Assigned at Not on file Legal Sex Female 6:42 PM EDT Gender Identity Not on file Sexual Orientation Not on file Last Filed Vital Signs Vital Sign Reading Time Taken Comments Blood Pressure 148/94 08/15/2019 12:00 PM EDT Pulse - - Temperature - - Respiratory Rate - - Oxygen Saturation - - Inhaled Oxygen Concentration - - Weight 67.6 kg (149 lb) 08/15/2019 12:00 PM EDT Height 165.1 cm (5' 5 ) 08/15/2019 12:00 PM EDT Body Mass Index 24.79 08/15/2019 12:00 PM EDT Plan of Treatment Health Maintenance Due Date Last Done Comments Pneumococcal Vaccine: 65+ Ye ars (2 of 2 - PPSV23) 11/08/2018 11/08/2017 Influenza Vaccine (#1) 2025 4, 09/08/2021, 08/08/2020, Additional history exists Insurance [facility] Care Teams Novelty Twister Operator Relationship Specialty Start Date End Date Shanique Fletcher MD PCP - General Family Medicine 10/28/23
--- OUTSIDE RECORDS SUMMARY | 2025-05-23 13:08 | XMS_ITS | Encounter Summary ---
Author Organization [facility] Address [address] [place] [address] Phone Care Team Providers Care Regional Retail Sales Manager Name Role Phone Yusuf Hayward MD, Marcia E MD Primary Care Provider [phone] Encounter Details Date Type Department Care Team (Late st Contact Info) Description 05/17/2025 Telephone [facility] [address] [address] Carrie James LPN Social History Tobacco Use Types Packs/Day Years [...] on file documented as of this encounter Miscellaneous Notes * Telephone Encounter - Carrie James LPN - 05/17/2025 8:45 AM EDT Phoned patient results discussed verbalized understanding. * Telephone Encounter - Carrie James LPN - 05/17/2025 8:43 AM EDT Result Communication Resulted Orders Vascular US Lower Extremity PVR Narrative [facility] Main [place] [address] [place] [address] Ultrasound Report Signed Patient: Heidi Correa MR#: [id number] 13 : 1940 Acct:[id number] Age/Sex: 85 / F ADM Date: 05/16/25 Loc: Room: Type: [facility] Attending Dr: Angeles Hills APRN Ordering Provider: Angeles Hills APRN Date of Service: 05/16/25 US/US arterial pvr rest LE: R60.9, E11.59 Copies to: Angeles Hills APRN LOWER EXTREMITY SEGMENTAL ARTERIAL DOPSCAN (PVR) INDICATION: R60.9 PROCEDURE: Right arm blood pressure is 121 , left is not obtained . Pressures throughout the right leg are CNO at the high thigh, at the CNO low thigh, 134 at the calf, 128 at the ankle using the posterior tibial artery, and 122 at the ankle using the dorsalis pedis artery with ankle-brachial index of 1.06 1.01 . Pressures throughout the left leg are CNO at the high thigh, at the CNO low thigh, 130 at the calf and 125 at the ankle using the posterior tibial artery, and 115 at the ankle using the dorsalis pedis artery with ankle-brachial index of 1.03 0.95 . Wave forms by plethysmography are normal. US/US arterial pvr rest LE IMPRESSION: NO HEMODYNAMICALLY SIGNIFICANT PERIPHERAL VASCULAR OCCLUSIVE DISEASE AT REST IN EITHER LOWER EXTREMITY. Impression dictated by: Jamison Dale M.D. 05/16/2025 4:26 PM Dictation Location: [place] [address] Tech: Afua Jak Transcribed By: CHEKO 05/16/251625 Dictated By: Jamison Dale MD 05/16/251624 Signed By: <Electronically signed by MD Jamison Dale in OV> 05/16/251625 8:43 AM Results were successfully communicated with the patient and they acknowledged their understanding. * Telephone Encounter - Carrie James LPN - 05/17/2025 8:43 AM EDT ----- Message from Angeles Hills sent at 05/16/2025 4:55 PM EDT ----- Please update patient: NO HEMODYNAMICALLY SIGNIFICANT PERIPHERAL VASCULAR OCCLUSIVE DISEASE ----- Message ----- From: Interface, Clinisync - Imaging Results In Sent: 05/16/2025 4:30 PM EDT To: WHITNEY Garces documented in this encounter Plan of Treatment Upcoming Encounters Date Type Department Care Team (Late st Contact Info) Description 06/06/2025 11:00 AM EDT Office Visit [facility] 703 [facility] 250 [place] [address] Angeles Hills APRN-CNP 703 [facility] 2, Mg [address] [place] [address] documented as of this encounter Visit Diagnoses Not on filedocumented in this encounter Additional Health Concerns Assessment Noted Time A fall risk assessment has been complete d for the patient 01/22/2025 11:35 AM EDT documented as of this encounter Care Teams Regional Retail Sales Manager Relationship Specialty Start Date End Date Shanique Fletcher MD [address] [place] [address] PCP - General Family Medicine 10/09/24 Yusuf Hayward MD Consulting Physician Cardiology 01/26/24 documented as of this encounter
--- OUTSIDE RECORDS SUMMARY | 2025-05-23 13:08 | XMS_ITS | Encounter Summary ---
Author Organization [facility] Address [address] [place] [address] Phone Care Team Providers Care Abalone Sheller Name Role Phone Shanique Fletcher MD Primary Care Provider [phone] Shanique Fletcher MD Primary Care Provider [phone] Yusuf Hayward MD Unavailable UnavailKaren Goncalves RN Unavailable Unavailable Shanique Fletcher MD Primary Care Provider [phone] Encounter Details Date Type Department Care Team (Late st Contact Info) Description 10/11/[address] [facility] [address] [place] [address] Scanning, Generic Provider Social History Tobacco Use [...] Description 06/06/2025 11:00 AM EDT Office Visit [facility] 703 [facility] [address] [place] [address] Angeles Hills, CRM DEVELOPER-DISTILLERY LABORER 703 [facility] [address] 2, Mg [address] [place] [address] documented as of this encounter Visit Diagnoses Not on filedocumented in this encounter Care Teams Abalone Sheller Relationship Specialty Start Date End Date Shanique Fletcher MD [facility] [place] [address] [place] [address] PCP - General 11/08/14 01/25/24 Shanique Fletcher MD [address] [place] [address] PCP - General Family Medicine 01/26/24 10/08/24 Shanique Fletcher MD [address] [place], [place] [address] [address] PCP - General Family Medicine 10/09/24 Yusuf Hayward MD [address] [place] [address] Consulting Physician Cardiology 01/26/24 Karen Stephens, filler and trimmerPainting Manager 06/29/24 10/16/24 documented as of this encounter
--- OUTSIDE RECORDS SUMMARY | 2025-05-23 13:08 | XMS_ITS | Encounter Summary ---
Author Organization [facility] Address [address] [place] [address] Phone Care Team Providers Care Woods Manager Name Role Phone Yusuf Hayward MD, Marcia E MD Primary Care Provider [phone] Encounter Details Date Type Department Care Team (Late st Contact Info) Description 05/16/2025 Orders Only [facility] [address] [place] [address] Angeles Hills, WILL CALL ORDER CLERK-POWER TECHNICIAN [address] [facility] 2, Mg [address] [place] [address] Social History Tobacco Use Types Packs/Day Years [...] Description 06/06/2025 11:00 AM EDT Office Visit [facility] 703 [facility] 250 [place] [address] Angeles Hills, WILL CALL ORDER CLERK-POWER TECHNICIAN [address] [facility] 2, Mg [address] [place] [address] documented as of this encounter Procedures Procedure Name Priority Date/Time Associated Diagnosis Comments VASC US LOWER EXTREMITY PVR 05/16/2025 4:25 PM EDT documented in this encounter Results * Vascular US Lower Extremity PVR (05/16/2025 4:25 PM EDT) Anatomical Region Laterality Modality Ultrasound 05/16/2025 4:25 PM EDT Narrative 05/16/2025 4:28 PM EDT [facility] [address] Ultrasound Report Signed Patient: Heidi Correa MR#: [id number] 13 : 1940 Acct:[id number] Age/Sex: 85 / F ADM Date: 05/16/25 Loc: Room: Type: [facility] Attending Dr: Angeles Hills APRN Ordering Provider: [...] Dale M.D. 05/16/2025 4:26 PM Dictation Location: [facility] Tech: Afua Jak Transcribed By: CHEKO 05/16/25 4746 Dictated By: Jamison Dale MD 05/16/251624 Signed By: <Electronically signed by MD Jamison Dale in OV> 05/16/25 1626 us Angeles Juarez Hills WILL CALL ORDER CLERK-POWER TECHNICIAN CV VASCULAR PROCEDURES Fi nal Result documented in this encounter Visit Diagnoses Not on filedocumented in this encounter Additional Health Concerns Assessment Noted Time A fall risk assessment has been complete d for the patient 01/22/2025 11:35 AM EDT documented as of this encounter Care Teams Woods Manager Relationship Specialty Start Date End Date Shanique Fletcher MD 1076 [facility] [place] [address] PCP - General Family Medicine 10/09/24 Yusuf Hayward MD Consulting Physician Cardiology 01/26/24 documented as of this encounter
--- OUTSIDE RECORDS SUMMARY | 2025-05-23 13:08 | XMS_ITS | Encounter Summary ---
Author Organization [facility] Address [address] [place] [address] Phone Care Team Providers Care Origination Specialist Name Role Phone Yusuf Hayward MD, Marcia E MD Primary Care Provider [phone] Encounter Details Date Type Department Care Team (Late st Contact Info) Description 01/22/2025 Scanned Document [facility] [address] [place] [address] Scanning, Generic Provider Social History Tobacco Use [...] suspected to have Coronavirus/COVID-19? No / Unsure 01/22/2025 11:16 AM EDT documented as of this encounter Plan of Treatment Upcoming Encounters Date Type Department Care Team (Late st Contact Info) Description 06/06/2025 11:00 AM EDT Office Visit [facility] 703 [facility] Mg 250 [place] [address] Angeles Hills, RN CARE MANAGER-MEDICAL IMAGING DIRECTOR [address] [facility] [address], [address] [place], [place] [id number] Scheduled Orders Name Type Priority Associated Diagnoses Orde r Schedule Ultrasound- OnBase Scan Imaging O rdered: 01/22/2025 documented as of this encounter Visit Diagnoses Not on filedocumented in this encounter Additional Health Concerns Assessment Noted Time A fall risk assessment has been complete d for the patient 01/22/2025 11:35 AM EDT documented as of this encounter Care Teams Origination Specialist Relationship Specialty Start Date End Date Shanique Fletcher MD [address] [place] [address] PCP - General Family Medicine 10/09/24 Yusuf Hayward MD Consulting Physician Cardiology 01/26/24 documented as of this encounter
--- OUTSIDE RECORDS SUMMARY | 2025-05-23 13:08 | XMS_ITS | Encounter Summary ---
Author Organization [facility] Address [address] [place] [address] Phone Care Team Providers Care Charge Master Analyst Name Role Phone Shanique Fletcher MD Primary Care Provider [phone] Shanique Fletcher MD Primary Care Provider [phone] Yusuf Hayward MD Unavailable UnavailKaren Goncalves RN Unavailable Unavailable Shanique Fletcher MD Primary Care Provider [phone] Encounter Details Date Type Department Care Team (Late st Contact Info) Description 11/23/2022 Orders Only [facility] [address] [place] [address] Conversion, Onbase Social History Tobacco Use Types Packs/Day Years [...] Description 06/06/2025 11:00 AM EDT Office Visit [facility] 703 [facility] Mg 250 [place] [address] Angeles Hills, ROUNDER HAND-PERIOPERATIVE NURSE 703 [facility] Bld[address] 2, Mg [address] [place] [address] Scheduled Orders Name Type Priority Associated Diagnoses Orde r Schedule OUTSIDE LAB SCAN Lab Ordered: 11/23/2022 documented as of this encounter Visit Diagnoses Not on filedocumented in this encounter Care Teams Charge Master Analyst Relationship Specialty Start Date End Date Shanique Fletcher MD [address] [place] [address] PCP - General 11/08/14 01/25/24 Shanique Fletcher MD [address] [place] [address] PCP - General Family Medicine 01/26/24 10/08/24 Shanique Fletcher MD [address] [place], [place] [address]vin [place] [address] PCP - General Family Medicine 10/09/24 Yusuf Hayward MD [address] [place] [address] Consulting Physician Cardiology 01/26/24 Karen Stephens, graphics software engineerHand Cloth Examiner 06/29/24 10/16/24 documented as of this encounter
--- OUTSIDE RECORDS SUMMARY | 2025-05-23 13:08 | XMS_ITS | Encounter Summary ---
Author Organization [facility] Address [address] [place] [address] Phone Care Team Providers Care Seal Delivery Vehicle Team Technician Name Role Phone Yusuf Hayward MD, Marcia E MD Primary Care Provider [phone] Encounter Details Date Type Department Care Team (Late Contact Info) Description 05/09/2025 Telephone [facility] Primary Care [address] [place] [address] [address] [place] [address] Angeles Hills, SPORTS PSYCHOLOGIST-LUNCHROOM AIDE 703 [facility] [address]ld[address] 2, Mg [address] [place] [address] Social History Tobacco Use Types Packs/Day Years [...] encounter Miscellaneous Notes * Telephone Encounter - Madiha Ervin - 05/09/2025 12:32 PM EDT [id number] for [facility] no auth is required per Devoted/[employer] portal Auth check code tool documented in this encounter Plan of Treatment Upcoming Encounters Date Type Department Care Team (Late Contact Info) Description 06/06/2025 11:00 AM EDT Office Visit [facility] 703 [facility] Mg [address] [place] [address] Angeles Hills, SPORTS PSYCHOLOGIST-LUNCHROOM AIDE 703 [facility] 2, Mg 250 [place], [place] [address] documented as of this encounter Visit Diagnoses Not on filedocumented in this encounter Additional Health Concerns Assessment Noted Time A fall risk assessment has been complete d for the patient 01/22/2025 11:35 AM EDT documented as of this encounter Care Teams Seal Delivery Vehicle Team Technician Relationship Specialty Start Date End Date Shanique Fletcher MD [address] [place] [address] PCP - General Family Medicine 10/09/24 Yusuf Hayward MD Consulting Physician Cardiology 01/26/24 documented as of this encounter
--- OUTSIDE RECORDS SUMMARY | 2025-05-23 13:08 | XMS_ITS | Encounter Summary ---
Author Organization [facility] Address [address] [place] [address] Phone Care Team Providers Care Tractor Mechanic Helper Name Role Phone Shanique Fletcher MD Primary Care Provider [phone] Shanique Fletcher MD Primary Care Provider [phone] Yusuf Hayward MD Unavailable UnavailKaren Goncalves RN Unavailable Unavailable Shanique Fletcher MD Primary Care Provider [phone] Encounter Details Date Type Department Care Team (Late st Contact Info) Description 10/28/2023 Scanned Document [facility] [address] [place] [address] Scanning, Generic Provider Social History Tobacco Use [...] 06/06/2025 11:00 AM EDT Office Visit [facility] 703 [facility] 250 [place] [address] Angeles Hills, PATIENT CARRIER-INTERNAL AUDIT CONSULTANT 703 [facility] [address]ld[address] 2, Mg [address] [place] [address] documented as of this encounter Visit Diagnoses Not on filedocumented in this encounter Care Teams Tractor Mechanic Helper Relationship Specialty Start Date End Date Shanique Fletcher MD [facility] [place] [address] [place] [address] PCP - General 11/08/14 01/25/24 Shanique Fletcher MD [address] [place] [address] PCP - General Family Medicine 01/26/24 10/08/24 Shanique Fletcher MD [address] [place], [place] [address]billy [place] [address] PCP - General Family Medicine 10/09/24 Yusuf Hayward MD [address] [place] [address] Consulting Physician Cardiology 01/26/24 Karen Stephens, head chargerChain Saw Operator 06/29/24 10/16/24 documented as of this encounter
--- OUTSIDE RECORDS SUMMARY | 2025-05-23 13:08 | XMS_ITS | Encounter Summary ---
Author Organization [facility] Address [address] [place] [address] Phone Care Team Providers Care Circulation Director Name Role Phone Shanique Fletcher MD Primary Care Provider [phone] Yusuf Hayward MD Unavailable UnavailKaren Goncalves RN Unavailable Unavailable Shanique Fletcher MD Primary Care Provider Encounter Details Date Type Department Care Team (Late st Contact Info) Description 06/29/2024 Scanned Document [facility] [address] [place] [address] Scanning, Generic Provider Social History Tobacco Use [...] Description 06/06/2025 11:00 AM EDT Office Visit [facility] 703 [facility] Mg 250 [place] [address] Angeles Hills, BUCKLE STAPLER-GAMBLING CASHIER 703 [facility] 2, Mg [address] [place] [address] documented as of this encounter Procedures Procedure Name Priority Date/Time Associated Diagnosis Comments ECHOCARDIOGRAM 06/29/2024 documented in this encounter Results * Echocardiogram (06/29/2024) Narrative 06/29/2024 Ordered by an unspecified provider. us Generic Provider Scanning CV ECHO PROCEDURES Fin al Result documented in this encounter Visit Diagnoses Not on filedocumented in this encounter Additional Health Concerns Assessment Noted Time A fall risk assessment has been complete d for the patient 01/26/2024 1:38 PM EDT documented as of this encounter Care Teams Circulation Director Relationship Specialty Start Date End Date Shanique Fletcher MD PCP - General Family Medicine 01/26/24 10/08/24 [place] [address] [place] [address] PCP - General Family Medicine 10/09/24 Yusuf Hayward MD Consulting Physician Cardiology 01/26/24 Karen Stephens, wire mesh gate assemblerElectron Beam Welder 06/29/24 10/16/24 documented as of this encounter
--- OUTSIDE RECORDS SUMMARY | 2025-05-23 13:08 | XMS_ITS | Clinical Summary ---
Author Organization [facility] Address [address] [place] [address] Care Team Providers Care Commuter Train Operator Name Role Phone Unavailable Primary Care Provider Unavailabl e Social History Tobacco Use Types Packs/Day Years Used Date Smoking Tobacco: Never Assessed Comments Unknown Sex and Gender Information Value Date Recorded Sex Assigned at Not on file Legal Sex Female 10:46 PM EDT Gender Identity Not on file Sexual Orientation Not on file Last Filed Vital Signs Vital Sign Reading Time Taken Comments Blood Pressure 147/57 06/10/2020 2:36 PM EDT Pulse 56 01/10/2020 10:47 AM EST Temperature - - Respiratory Rate - - Oxygen Saturation 99% 04/18/2020 11:29 AM EDT Inhaled Oxygen Concentration - - Weight 79.6 kg (175 lb 6.4 oz) 06/10/2020 2:37 P M EDT Height 165.1 cm (5' 5 ) 06/10/2020 2:36 PM EDT Body Mass Index 29.19 06/10/2020 2:36 PM EDT Plan of Treatment Not on file
--- OUTSIDE RECORDS SUMMARY | 2025-05-23 13:08 | XMS_ITS | Encounter Summary ---
Author Organization [facility] Address [address] [place] [address] Phone Care Team Providers Care Cadence Specialists Name Role Phone Shanique Fletcher MD Primary Care Provider [phone] Shanique Fletcher MD Primary Care Provider [phone] Yusuf Hayward MD Unavailable UnavailKaren Goncalves RN Unavailable Unavailable Shanique Fletcher MD Primary Care Provider [phone] Encounter Details Date Type Department Care Team (Late st Contact Info) Description 03/04/2022 Orders Only [facility] [address] [place] [address] Conversion, Onbase Social History Tobacco Use Types [...] Description 06/06/2025 11:00 AM EDT Office Visit [facility] 703 [facility] Mg [address] [place] [address] Angeles Hills, FOREST NURSERY SUPERVISOR-UPPER LINING CEMENTER 703 [facility] [address] 2, Mg [address] [place] [address] Scheduled Orders Name Type Priority Associated Diagnoses Orde r Schedule OUTSIDE LAB SCAN Lab Ordered: 03/04/2022 documented as of this encounter Visit Diagnoses Not on filedocumented in this encounter Care Teams Cadence Specialists Relationship Specialty Start Date End Date Shanique Fletcher MD [address] [place] [address] PCP - General 11/08/14 01/25/24 Shanique Fletcher MD [address] [place] [address] PCP - General Family Medicine 01/26/24 10/08/24 Shanique Fletcher MD [address] [place], [place] [address] [address] PCP - General Family Medicine 10/09/24 Yusuf Hayward MD [address] [place] [address] Consulting Physician Cardiology 01/26/24 Karen Stephens, clinical trial leaderChief Environmental Commitment Officer 06/29/24 10/16/24 documented as of this encounter
--- OUTSIDE RECORDS SUMMARY | 2025-05-23 13:08 | XMS_ITS | Clinical Summary ---
Author Organization [facility] Address [address] [place] [address] Phone Care Team Providers Care [facility] Receptionist Name Role Phone Yusuf Hayward MD, Marcia E MD Primary Care Provider [phone] Allergies Active Allergy Reactions Criticality Noted Date Comments Metformin Other 11/02/2023 Oxycodone Hallucinations 11/02/2023 Penicillins Nausea/vomiting 11/02/2023 Medications levothyroxine (Synthroid, Levoxyl) 50 mcg tablet Take 1 tablet (50 mcg) by mouth once daily. Active sennosides-docu sate sodium (Juliana-Colace) 8.6-50 mg tablet Take 1 tablet by mouth 2 times a day. Active metoprolol succinate XL (Toprol-XL) 50 mg 24 hr tablet Take 1 tablet (50 mg) by mouth once daily. Do not crush or chew. Active calcium carbonate-vitam in D3 600 mg-10 mcg (400 unit) chewable tablet Chew and swallow 1 tablet 2 times a day. Active atorvastatin (Lipitor) 80 mg tablet 1 tablet (80 mg) once daily at bedtime. 06/06/20 24 Active valsartan (Diovan) 40 mg tablet Take 1 tablet (40 mg) by mouth 2 times a day. 06/30/20 24 Active clindamycin (Cleocin) 300 mg capsule TAKE 2 CAPSULES 1 HOUR PRIOR TO DENTAL APPOINTMENT 01/02/20 24 Active ascorbic acid (Vitamin C) 500 mg ER capsule Take 1 capsule (500 mg) by mouth once daily. Active spironolactone (Aldactone) 25 mg tabletIndicatio ns:Essential hypertension, benign,Cardiomy opathy, ischemic Take 1 tablet (25 mg) by mouth 2 times a day. 180 tablet 3 11/29/19 026 Active insulin glargine-lixise natide (Soliqua 100/33) 100 unit-33 mcg/mL insulin pen Inject 17 Units under the skin early in the morning.. Active zolpidem (Ambien) 5 mg tablet Take 1 tablet (5 mg) by mouth as needed at bedtime for sleep. Active clopidogrel (Plavix) 75 mg tabletIndicatio ns:Coronary artery disease involving absentee-shawnee heart, unspecified vessel or lesion type, unspecified whether angina present Take 1 tablet (75 mg) by mouth once daily. On first day of starting medication take 600 mg (8 tablets) by mouth then each day after take 1 tablet 75 mg daily 90 tablet 12/20/19 026 Active aspirin 81 mg EC tabletIndicatio ns:Coronary artery disease involving absentee-shawnee coronary artery of absentee-shawnee heart without angina pectoris Take 1 tablet (81 mg) by mouth once daily. 30 tablet 12/20/19 026 Active Additional Information Patient taking differently:81 mg oral2 times daily, Reported on 05/09/2025 diclofenac sodium (Voltaren) 1 % gel Apply 2.25 inches (2 g) topically 3 times a day as needed (arthritis). Active torsemide (Demadex) 20 mg tabletIndicatio ns:Edema, unspecified type Take 2 tablets (40 mg) by mouth once daily. 60 tablet 02/27/20 026 Active diphenhydrAMINE (Sominex) 25 mg tablet Take 1 tablet (25 mg) by mouth as needed at bedtime for sleep. Active acetaminophen (Tylenol) 325 mg tablet Take 1 tablet (325 mg) by mouth every 8 hours if needed for mild pain (1 - 3). Active nitroglycerin (Nitrostat) 0.4 mg SL tabletIndicatio ns:Coronary artery disease involving absentee-shawnee heart, unspecified vessel or lesion type, unspecified whether angina present Place 1 tablet (0.4 mg) under the tongue every 5 minutes if needed for chest pain. 25 tablet 1 05/09/20 25 025 Active Lantus Solostar U-100 Insulin 100 unit/mL (3 mL) pen 10/26/20 025 Discontin ued(Thera py completed ) nitroglycerin (Nitrostat) 0.4 mg SL tablet Nitroglycerin Active 0.4 MG SUBLINGUAL Q5M June 30, 2024 12:00am 06/30/20 24 025 Discontin ued(Reord er) Active Problems Problem Noted Date Diagnosed Date BMI 27.0-27.9,adult 12/20/2024 Assessment & Plan (05/09/2025 4:46 PM EDT): Reviewed the merits of healthy lifestyle choices on overall cardiovascular health. Assessment & Plan (02/27/2025 4:47 PM EDT): Reviewed the merits of healthy lifestyle choices on overall cardiovascular health. Assessment & Plan (01/22/2025 4:11 PM EDT): Has 10 pound weight gain. Has not been taking lasix daily with increased b/l lower ext edema Assessment & Plan (12/20/2024 1:41 PM EST): Has 10 pound weight gain. Has not been taking lasix daily with increased b/l lower ext edema Cardiomyopathy, ischemic 07/13/2024 Assessment & Plan (05/09/2025 4:46 PM EDT): ICM HF improved EF 64% Oct 2024 MUGA (at time of anterior STEMI EF 35-40% with anterior apical hypokinesis) April 2025 TTE LVEF 60-65% Resolution of anterior apical hypokinesis Assessment & Plan (02/27/2025 4:46 PM EDT): ICM HF improved EF 64% Oct 2024 MUGA (at time of anterior STEMI EF 35-40% with anterior apical hypokinesis) Assessment & Plan (01/22/2025 4:10 PM EDT): ICM HF improved EF 64% Oct 2024 MUGA (at time of anterior STEMI EF 35-40% with anterior apical hypokinesis) Assessment & Plan (12/20/2024 1:40 PM EST): ICM HF improved EF 64% Oct 2024 MUGA (at time of anterior STEMI EF 35-40% with anterior apical hypokinesis) BMI 24.0-24.9, adult 07/13/2024 Never smoked cigarettes 01/26/2024 CAD (coronary artery disease) 11/02/2023 Assessment & Plan (05/09/2025 4:46 PM EDT): Remote PCI Jun 29, 2024 Ant STEMI mLAD PCI/[place] 2.5x15mm & 2.5x8mm M/d RCA PCI/[place] 3x15mm & 2.5x22mm Assessment & Plan (02/27/2025 4:46 PM EDT): Remote PCI Jun 29, 2024 Ant STEMI mLAD PCI/[place] 2.5x15mm & 2.5x8mm M/d RCA PCI/[place] 3x15mm & 2.5x22mm Assessment & Plan (01/22/2025 4:10 PM EDT): Remote PCI Jun 29, 2024 Ant STEMI mLAD PCI/[place] 2.5x15mm & 2.5x8mm M/d RCA PCI/[place] 3x15mm & 2.5x22mm Assessment & Plan (12/20/2024 1:39 PM EST): Remote PCI Jun 29, 2024 Ant STEMI mLAD PCI/[place] 2.5x15mm & 2.5x8mm M/d RCA PCI/[place] 3x15mm & 2.5x22mm Diabetes mellitus (Multi) 11/02/2023 Assessment & Plan (12/20/2024 1:40 PM EST): On ARB/statin Unknown HgA1c Edema 11/02/2023 Assessment & Plan (05/09/2025 4:47 PM EDT): January 2025: 1 month ago patient presented [...] ambulation. Although unlikely, will check for PAD. Assessment & Plan (02/27/2025 4:48 PM EDT): January 2025: 1 month ago patient presented [...] atrial fib Otherwise, on no offending agents. Last LVEF 64% Most recent potassium 4.3, creatinine 0.98 Assessment & Plan (01/22/2025 4:12 PM EDT): 1 month ago patient presented off of [...] 64% Most recent potassium 4.3, creatinine 0.98 Assessment & Plan (12/20/2024 1:42 PM EST): Not taking lasix daily EF 64% RVSP 40-50mmHG No offending medications Essential hypertension, benign 11/02/2023 Assessment & Plan (05/09/2025 4:46 PM EDT): optimal in office Assessment & Plan (01/22/2025 4:10 PM EDT): optimal in office Assessment & Plan (12/20/2024 1:39 PM EST): optimal in office History of PTCA 11/02/2023 Hyperlipidemia 11/02/2023 Assessment & Plan (05/09/2025 4:46 PM EDT): Tolerating high intensity statin December 2024 LDL 89, HDL 57 Assessment & Plan (01/22/2025 4:10 PM EDT): Tolerating high intensity statin December 2024 LDL 89, HDL 57 Assessment & Plan (12/20/2024 1:39 PM EST): Tolerating high intensity statin Due for repeat labs Encounters Date Type Department Care Team Description 05/17/[address] [phone] Carrie James LPN 05/16/2025 Orders Only [facility] [address] [place] [address] José Antonio Hills APRN-STEPHANIE 05/09/2025 11:30 AM EDT Office Visit [address] [address] José Antonio Hills, COMMERCIAL LOAN ADMINISTRATOR-INSPECTOR [place] Coronary artery disease involving absentee-shawnee heart, unspecified vessel or lesion type, unspecified whether angina present (Primary Dx); Edema, unspecified type; Essential hypertension, benign; Hyperlipidemia, unspecified hyperlipidemia type; Cardiomyopathy, ischemic; BMI 27.0-27.9,adult; Dyspnea on exertion; Type 2 diabetes mellitus with other circulatory complications 05/09/2025 Telephone [facility] [address] [place] [phone] José Antonio Hills APRN-STEPHANIE 05/09/2025 Travel 05/03/[address] [phone] Jennifer Jones LPN Results 05/02/2025 1:12 PM EDT - 05/02/2025 11:59 PM EDT Hospital Encounter [facility] [id number] [place] [address] Cardiomyopathy, ischemic; Edema, unspecified type; Localized edema Discharge Disposition: Home 05/02/2025 Travel 03/02/[address] [phone] Carrie James LPN 02/26/2025 1:30 PM EDT Office Visit [address] [address] José Antonio Hills, COMMERCIAL LOAN ADMINISTRATOR-INSPECTOR [place] Edema, unspecified type (Primary Dx); Coronary artery disease involving absentee-shawnee heart, unspecified vessel or lesion type, unspecified whether angina present; Cardiomyopathy, ischemic; BMI 26.0-26.9,adult; Other cardiomyopathy 02/26/2025 Travel from Last 3 Months Immunizations Immunization Administration Dates Next Due DTP 12/18/2022 Flu vaccine, trivalent, pres ervative free, HIGH-DOSE, age 65y+ (Fluzone) 09/04/2024,06/25/2017 Influenza, Unspecified 08/08/2020 Influenza, seasonal, injectable 09/08/2021 Moderna SARS-CoV-2 Vaccination 01/16/2021,2020 Pneumococcal conjugate vaccine, 13-valent (PREVN AR 13) 11/08/2017 Td vaccine, age 7 years and older (TENIVAC) 08/08,08/24/2013 Tdap vaccine, age 7 year and older (BOOSTRIX, AD ACEL) 12/18/2022 Zoster, live 06/25/2017 Social History Tobacco Use Types Packs/Day Years [...] Mass Index 27.26 05/09/2025 11:47 AM EDT Plan of Treatment Upcoming Encounters Date Type Department Care Team (Late st Contact Info) Description 06/06/2025 11:00 AM EDT Office Visit [facility] [address] [facility] [address] [place] [address] José Antonio Hills, COMMERCIAL LOAN ADMINISTRATOR-INSPECTOR [place] [address] [facility] [address] [place] [address] Health Maintenance Due Date Last Done Comments Bone Density Scan 1940 Creatinine Level 1940 Diabetes: Hemoglobin A1C 1940 Diabetes: Urine Protein Screening 1940 Lipid Panel 1940 Potassium Level 1940 TSH Level 1940 RSV High Risk: (Elderly (60+) or Population) (1 - 1-dose 75+ series) 2014 Zoster Vaccines (2 of 3) 08/20/2017 06/25/2017 Medicare Annual Wellness Visit (AWV) 06/17/2022 06/16/2021 COVID-19 Vaccine ( season) 2024 05/29/2022, 10/09/2021, 01/16/2021, Additional history exists Influenza Vaccine (#1) 2025 , 09/17/2021, 09/08/2021, Additional history exists Diabetes: Retinopathy Screening 07/13/2025 07/13/2023, 04/27/2022, 01/28/2021, Additional history exists Echocardiogram 05/02/2026 05/02/2025, 08/01/2024, 06/29/2024 DTaP/Tdap/Td Vaccines (3 - Td or Tdap) 12/18/2032 12/18/2022, 12/18/2022, 08/17/2014, Additional history exists Pneumococcal Vaccine Completed 11/08/2017, 09/16/20 05 Welcome to Medicare Visit Discontinued 06/16/2021 HIB Vaccines Aged Out No longer eligi ble based on patient's age to complete this topic HPV Vaccines Aged Out No longer eligi ble based on patient's age to complete this topic Hepatitis A Vaccines Aged Out No long er eligible based on patient's age to complete this topic Hepatitis B Vaccines Aged Out No long er eligible based on patient's age to complete this topic IPV Vaccines Aged Out No longer eligi ble based on patient's age to complete this topic Meningococcal Vaccine Aged Out No david marianna eligible based on patient's age to complete this topic Rotavirus Vaccines Aged Out No longer eligible based on patient's age to complete this topic Procedures Procedure Name Priority Date/Time Associated Diagnosis Comments VASC US LOWER EXTREMITY PVR 05/16/2025 4:25 PM EDT TRANSTHORACIC ECHO (TTE) COMPLETE Routine 05/02/2025 2:23 PM EDT Cardiomyopathy, ischemic Edema, unspecified type Localized edema from Last 3 Months Results * Vascular US Lower Extremity PVR (05/16/2025 4:25 PM EDT) Anatomical Region Laterality Modality Ultrasound 05/16/2025 4:25 PM EDT Narrative 05/16/2025 4:[address] [place] [address] Ultrasound Report Signed Patient: Heidi Correa MR#: [id number] 13 : 1940 Acct:[id number] Age/Sex: 85 / F ADM Date: 05/16/25 Loc: Room: Type: [facility] Attending Dr: José Antonio Hills APRN Ordering Provider: José Antonio Hills APRN Date of Service: 05/16/25 US/US arterial pvr rest LE: R60.9, E11.59 Copies to: José Antonio Hills APRN LOWER EXTREMITY SEGMENTAL ARTERIAL DOPSCAN [...] Dale M.D. 05/16/2025 4:26 PM Dictation Location: [place] [address] Tech: Afua Benedict Transcribed By: CHEKO 05/16/25 1626 Dictated By: Jamison Dale MD 05/16/25 1625 Signed By: <Electronically signed by MD Jamison Dale in OV> 05/16/25 1626 José Antonio Hills COMMERCIAL LOAN ADMINISTRATOR-INSPECTOR [place] CV VASCULAR PROCEDURES Fi nal Result * TRANSTHORACIC ECHO (TTE) COMPLETE (05/02/2025 2:23 PM EDT) AV mn grad 7 mmHg SYNGO AV pk shashi 1.64 m/s SYNGO LV Biplane EF 64 % SYNGO LVOT diam 2.30 cm SYNGO MV E/A ratio 0.88 SYNGO MV avg E/e' ratio 16.57 SYNGO LA vol index A/L 26.0 ml/m2 SYNGO LV EF 63 % SYNGO RV free wall pk S' 13.76 cm/s SYNGO RVSP 35 mmHg SYNGO LVIDd 4.06 cm SYNGO Aortic Valve Area by Continuity of Peak Velocity 2.82 cm2 SYNGO AV pk grad 11 mmHg SYNGO Aortic Valve Area by Continuity of VTI 2.90 cm2 SYNGO LV A4C EF 68.3 SYNGO 05/02/2025 1:23 PM EDT Narrative SYNGO - 05/03/2025 2:30 PM EDT [address], [address], [place] [address] TRANSTHORACIC ECHOCARDIOGRAM REPORT Patient Name: HEIDI CORREA Reading Physician: [id number] Carmita Marques MD Study Date: 05/02/2025 Ordering Provider: [id number] JOSÉ ANTONIO HILLS MRN/PID: [id number] Fellow: Nurse: Date of /Age: 3 1940 Security Assistant: Zuri jones RDCS, RVT Gender Assigned at F Additional Staff: : Height: 165.10 cm Admit Date: Weight: 82.10 kg Admission Status: Outpatient BSA / BMI: 1.90 m2 / 30.12 Department Location: [facility] kg/m2 [place] Blood Pressure: 94 /58 mmHg Study Type: TRANSTHORACIC ECHO (TTE) COMPLETE Diagnosis/ICD: Ischemic cardiomyopathy-I25.5; Localized edema-R60.0 Indication: CAD, [place] and PTCA-06/2024 CPT Codes: Echo Complete w Full Doppler-30248 Study Detail: The following Echo studies were performed: 2D, M-Mode, Doppler and color flow. PHYSICIAN INTERPRETATION: Left Ventricle: The left ventricular systolic function is normal with a visually estimated ejection fraction of 60-65%. There are no regional wall motion abnormalities. The left ventricular cavity size is normal. There is mildly increased posterior left ventricular wall thickness. There is left ventricular concentric remodeling. Spectral Doppler shows a Grade I (impaired relaxation pattern) of left ventricular diastolic filling with normal left atrial filling pressure. Basilar septal hypertrophy. Left Atrium: The left atrial size is normal. Right Ventricle: The right ventricle is normal in size. There is normal right ventricular global systolic function. Right Atrium: The right atrial size is normal. Aortic Valve: The aortic valve is trileaflet. The aortic valve area by VTI is 2.90 cm with a peak velocity of 1.64 m/s. The peak and mean gradients are 11 mmHg and 7 mmHg, respectively, with a dimensionless index of 0.70. There is minimal aortic valve cusp calcification. There is mild aortic valve regurgitation. Mitral Valve: The mitral valve is normal in structure. The doppler estimated peak and mean diastolic gradients are 11 mmHg and 4 mmHg, respectively. There is no evidence of mitral valve regurgitation. The E Vmax is 1.15 m/s. Tricuspid Valve: The tricuspid valve is structurally normal. There is trace to mild tricuspid regurgitation. The Doppler estimated right ventricular systolic pressure (RVSP) is mildly elevated at 35 mmHg. Pulmonic Valve: The pulmonic valve is structurally normal. There is no indication of pulmonic valve regurgitation. Pericardium: No pericardial effusion noted. Aorta: The aortic root is normal. CONCLUSIONS: 1. The left ventricular systolic function is normal with a visually estimated ejection fraction of 60-65%. 2. Spectral Doppler shows a Grade I (impaired relaxation pattern) of left ventricular diastolic filling with normal left atrial filling pressure. 3. There is normal right ventricular global systolic function. 4. The Doppler estimated RVSP is mildly elevated at 35 mmHg. 5. Mild aortic valve regurgitation. 6. When compared to previous study LVEF has improved with resolution of the previously described regional motion abnormality. QUANTITATIVE DATA SUMMARY: 2D MEASUREMENTS: Normal Ranges: Ao Root s: 2.80 cm LAs: 3.79 cm (2.7-4.0cm) RVIDd: 2.91 cm (0.9-3.6cm) IVSd: 1.37 cm (0.6-1.1cm) LVPWd: 1.04 cm (0.6-1.1cm) LVIDd: 4.06 cm (3.9-5.9cm) LVIDs: 2.50 cm LV Mass Index: 89.9 g/m2 LVEDV Index: 30.92 ml/m2 LV % FS 38.4 % LEFT ATRIUM: Normal Ranges: LA Vol A4C: 44.6 ml (22+/-6mL/m2) LA Vol A2C: 50.7 ml LA Vol BP: 49.3 ml LA Vol Index A4C: 23.5ml/m2 LA Vol Index A2C: 26.8 ml/m2 LA Vol Index BP: 26.0 ml/m2 LA Vol A4C: 41.4 ml LA Vol A2C: 47.5 ml LA Vol Index BSA: 23.5 ml/m2 LV SYSTOLIC FUNCTION: Normal Ranges: EF-A4C View: 68 % (>=55%) EF-A2C View: 54 % EF-Biplane: 64 % EF-Visual: 63 % LV EF Reported: 63 % LV DIASTOLIC FUNCTION: Normal Ranges: MV Peak E: 1.15 m/s (0.7-1.2 m/s) MV Peak A: 1.30 m/s (0.42-0.7 m/s) E/A Ratio: 0.88 (1.0-2.2) MV e' 0.069 m/s (>8.0) MV lateral e' 0.08 m/s MV medial e' 0.06 m/s E/e' Ratio: 16.57 (<8.0) MITRAL VALVE: Normal Ranges: MV Vmax: 1.67 m/s (<=1.3m/s) MV peak P.1 mmHg (<5mmHg) MV mean P.1 mmHg (<48mmHg) MV VTI: 50.79 cm (10-13cm) MV DT: 340 msec (150-240msec) AORTIC VALVE: Normal Ranges: AoV Vmax: 1.64 m/s (<=1.7m/s) AoV Peak P.7 mmHg (<20mmHg) AoV Mean P.9 mmHg (1.7-11.5mmHg) LVOT Max Shashi: 1.11 m/s (<=1.1m/s) AoV VTI: 38.89 cm (18-25cm) LVOT VTI: 27.25 cm LVOT Diameter: 2.30 cm (1.8-2.4cm) AoV Area, VTI: 2.90 cm2 (2.5-5.5cm2) AoV Area,Vmax: 2.82 cm2 (2.5-4.5cm2) AoV Dimensionless Index: 0.70 AORTIC INSUFFICIENCY: AI Vmax: 3.12 m/s AI Half-time: 208 msec AI Decel Time: 718 msec AI Decel Rate: 434.18 cm/s2 RIGHT VENTRICLE: RV Basal 2.96 cm RV Mid 2.40 cm RV Major 5.3 cm RV s' 0.14 m/s TRICUSPID VALVE/RVSP: Normal Ranges: Peak TR Velocity: 2.85 m/s Est. RA Pressure: 3 mmHg RV Syst Pressure: 35 mmHg (< 30mmHg) IVC Diam: 1.19 cm PULMONIC VALVE: Normal Ranges: RVOT Vmax: 0.83 m/s (0.6-0.9m/s) AORTA: Asc Ao Diam 2.79 cm [id number] Carmita Marques MD Electronically signed on 05/03/2025 at 2:30:51 PM Final Procedure Note Carmita Marques MD - 05/03/[address], [address] [place] [address] TRANSTHORACIC ECHOCARDIOGRAM REPORT Patient Name: HEIDI SPENCER Tavares Physician: [id number] Mullins Study Date: 05/02/2025 Ordering Provider: [id number] EDGARDO HILLS MRN/PID: [id number] Fellow: Nurse: Date of /Age: 3 1940 Security Assistant: Master jones RDCS, RVT Gender Assigned at F Additional Staff: : Height: 165.10 cm Admit Date: Weight: 82.10 kg Admission Status: Outpatient BSA / BMI: 1.90 m2 / 30.12 Department Location: [facility]/[address] Blood Pressure: 94 /58 mmHg Study Type: TRANSTHORACIC ECHO (TTE) COMPLETE Diagnosis/ICD: Ischemic cardiomyopathy-I25.5; Localized edema-R60.0 Indication: CAD, [place] and PTCA-06/2024 CPT Codes: Echo Complete w Full Doppler-[id number] Study Detail: The following Echo studies were performed: 2D, M-Mode,Doppler and color flow. PHYSICIAN INTERPRETATION: Left Ventricle: The left ventricular systolic function is normal with avisually estimated ejection fraction of 60-65%. There are no regional wallmotion abnormalities. The left ventricular cavity size is normal. There ismildly increased posterior left ventricular wall thickness. There is leftventricular concentric remodeling. Spectral Doppler shows a Grade I(impaired relaxation pattern) of left ventricular diastolic filling withnormal left atrial filling pressure. Basilar septal hypertrophy. Left Atrium: The left atrial size is normal. Right Ventricle: The right ventricle is normal in size. There is normalright ventricular global systolic function. Right Atrium: The right atrial size is normal. Aortic Valve: The aortic valve is trileaflet. The aortic valve area by VTIis 2.90 cm with a peak velocity of 1.64 m/s. The peak and meangradients are 11 mmHg and 7 mmHg, respectively, with a dimensionless indexof 0.70. There is minimal aortic valve cusp calcification. There is mildaortic valve regurgitation. Mitral Valve: The mitral valve is normal in structure. The dopplerestimated peak and mean diastolic gradients are 11 mmHg and 4 mmHg,respectively. There is no evidence of mitral valve regurgitation. The EVmax is 1.15 m/s. Tricuspid Valve: The tricuspid valve is structurally normal. There istrace to mild tricuspid regurgitation. The Doppler estimated rightventricular systolic pressure (RVSP) is mildly elevated at 35 mmHg. Pulmonic Valve: The pulmonic valve is structurally normal. There is noindication of pulmonic valve regurgitation. Pericardium: No pericardial effusion noted. Aorta: The aortic root is normal. CONCLUSIONS: 1. The left ventricular systolic function is normal with a visuallyestimated ejection fraction of 60-65%. 2. Spectral Doppler shows a Grade I (impaired relaxation pattern) of leftventricular diastolic filling with normal left atrial filling pressure. 3. There is normal right ventricular global systolic function. 4. The Doppler estimated RVSP is mildly elevated at 35 mmHg. 5. Mild aortic valve regurgitation. 6. When compared to previous study LVEF has improved with resolution ofthe previously described regional motion abnormality. QUANTITATIVE DATA SUMMARY: 2D MEASUREMENTS: Normal Ranges: Ao Root s: 2.80 cm LAs: 3.79 cm (2.7-4.0cm) RVIDd: 2.91 cm (0.9-3.6cm) IVSd: 1.37 cm (0.6-1.1cm) LVPWd: 1.04 cm (0.6-1.1cm) LVIDd: 4.06 cm (3.9-5.9cm) LVIDs: 2.50 cm LV Mass Index: 89.9 g/m2 LVEDV Index: 30.92 ml/m2 LV % FS 38.4 % LEFT ATRIUM: Normal Ranges: LA Vol A4C: 44.6 ml (22+/-6mL/m2) LA Vol A2C: 50.7 ml LA Vol BP: 49.3 ml LA Vol Index A4C: 23.5ml/m2 LA Vol Index A2C: 26.8 ml/m2 LA Vol Index BP: 26.0 ml/m2 LA Vol A4C: 41.4 ml LA Vol A2C: 47.5 ml LA Vol Index BSA: 23.5 ml/m2 LV SYSTOLIC FUNCTION: Normal Ranges: EF-A4C View: 68 % (>=55%) EF-A2C View: 54 % EF-Biplane: 64 % EF-Visual: 63 % LV EF Reported: 63 % LV DIASTOLIC FUNCTION: Normal Ranges: MV Peak E: 1.15 m/s (0.7-1.2 m/s) MV Peak A: 1.30 m/s (0.42-0.7 m/s) E/A Ratio: 0.88 (1.0-2.2) MV e' 0.069 m/s (>8.0) MV lateral e' 0.08 m/s MV medial e' 0.06 m/s E/e' Ratio: 16.57 (<8.0) MITRAL VALVE: Normal Ranges: MV Vmax: 1.67 m/s (<=1.3m/s) MV peak P.1 mmHg (<5mmHg) MV mean P.1 mmHg (<48mmHg) MV VTI: 50.79 cm (10-13cm) MV DT: 340 msec (150-240msec) AORTIC VALVE: Normal Ranges: AoV Vmax: 1.64 m/s (<=1.7m/s) AoV Peak P.7 mmHg (<20mmHg) AoV Mean P.9 mmHg (1.7-11.5mmHg) LVOT Max Shashi: 1.11 m/s (<=1.1m/s) AoV VTI: 38.89 cm (18-25cm) LVOT VTI: 27.25 cm LVOT Diameter: 2.30 cm (1.8-2.4cm) AoV Area, VTI: 2.90 cm2 (2.5-5.5cm2) AoV Area,Vmax: 2.82 cm2 (2.5-4.5cm2) AoV Dimensionless Index: 0.70 AORTIC INSUFFICIENCY: AI Vmax: 3.12 m/s AI Half-time: 208 msec AI Decel Time: 718 msec AI Decel Rate: 434.18 cm/s2 RIGHT VENTRICLE: RV Basal 2.96 cm RV Mid 2.40 cm RV Major 5.3 cm RV s' 0.14 m/s TRICUSPID VALVE/RVSP: Normal Ranges: Peak TR Velocity: 2.85 m/s Est. RA Pressure: 3 mmHg RV Syst Pressure: 35 mmHg (< 30mmHg) IVC Diam: 1.19 cm PULMONIC VALVE: Normal Ranges: RVOT Vmax: 0.83 m/s (0.6-0.9m/s) AORTA: Asc Ao Diam 2.79 cm [id number] Carmita Marques MD Electronically signed on 05/03/2025 at 2:30:51 PM Final us José Antonio Hills COMMERCIAL LOAN ADMINISTRATOR-INSPECTOR [place] CV ECHO PROCEDURES Final Result SYNGO from Last 3 Months Insurance [address] [place] [address] [employer] [address] [place] [id number] [employer] Care Teams Retail [facility] Receptionist Relationship Specialty Start Date End Date Shanique Fletcher MD [address] [place] [address] PCP - General Family Medicine 10/09/24 Yusuf Hayward MD Consulting Physician Cardiology 01/26/24
--- OUTSIDE RECORDS SUMMARY | 2025-05-23 13:08 | XMS_ITS | Encounter Summary ---
Author Organization [facility] Address [address] [place] [address] Phone Care Team Providers Care Lye Bath Operator Name Role Phone Shanique Fletcher MD Primary Care Provider Yusuf Hayward MD Unavailable UnavailKaren Goncalves RN Unavailable Unavailable Shanique Fletcher MD Primary Care Provider [phone] Encounter Details Date Type Department Care Team (Late st Contact Info) Description 06/30/2024 Scanned Document [facility] [address] [place] [id number] Scanning, Generic Provider Social History Tobacco Use [...] Office Visit [facility] [address] [facility] [address] [place] [address] [place], REGISTERED NURSE PRACTITIONER-MEDICAL EDUCATION MANAGER [address] [facility] [address] [place] [address] documented as of this encounter Procedures Procedure Name Priority Date/Time Associated Diagnosis Comments ECHOCARDIOGRAM 06/30/2024 documented in this encounter Results * Echocardiogram (06/30/2024) Narrative 06/30/2024 Ordered by an unspecified provider. us Generic Provider Scanning CV ECHO PROCEDURES Fin al Result documented in this encounter Visit Diagnoses Not on filedocumented in this encounter Additional Health Concerns Assessment Noted Time A fall risk assessment has been complete d for the patient 01/26/2024 1:38 PM EDT documented as of this encounter Care Teams Lye Bath Operator Relationship Specialty Start Date End Date Shanique Fletcher MD PCP - General Family Medicine 01/26/24 10/08/24 Shanique Fletcher MD [address] [place] [address] PCP - General Family Medicine 10/09/24 Yusuf Hayward MD Consulting Physician Cardiology 01/26/24 Karen Stephens, heating element builderLatin American Studies Director 06/29/24 10/16/24 documented as of this encounter
--- OUTSIDE RECORDS SUMMARY | 2025-05-23 13:08 | XMS_ITS | Encounter Summary ---
Author Organization [facility] Address [address] [place] [address] Phone Care Team Providers Care Grounds Crew Supervisor Name Role Phone Yusuf Hayward MD, Marcia E MD Primary Care Provider [phone] Encounter Details Date Type Department Care Team (Latest Contact Info) Description 05/09/2025 Travel Social History Tobacco Use Types Packs/Day Years [...] Description 06/06/2025 11:00 AM EDT Office Visit [facility] [address] [facility] [address] [place] [phone] [place], WINDSHIELD INSTALLER-SHAREPOINT NET DEVELOPER [address] [facility] [address] [place] [address] documented as of this encounter Visit Diagnoses Not on filedocumented in this encounter Additional Health Concerns Assessment Noted Time A fall risk assessment has been complete d for the patient 01/22/2025 11:35 AM EDT documented as of this encounter Care Teams Grounds Crew Supervisor Relationship Specialty Start Date End Date Shanique Fletcher MD [address] [place] [address] PCP - General Family Medicine 10/09/24 Yusuf Hayward MD Consulting Physician Cardiology 01/26/24 documented as of this encounter
--- OUTSIDE RECORDS SUMMARY | 2025-05-23 13:08 | XMS_ITS | Encounter Summary ---
Author Organization [facility] Address [address] [place] [address] Phone Care Team Providers Care Cover Machine Operator Name Role Phone Yusuf Hayward MD, Marcia E MD Primary Care Provider [phone] Encounter Details Date Type Department Care Team (Late st Contact Info) Description 02/02/2025 Scanned Document [facility] [address] [place] [address] Scanning, Generic Provider Social History [...] Office Visit [facility] [address] [facility] [address] [place] [address] [place], GAS STATION SERVICE ATTENDANT-WHITE SUGAR SYRUP OPERATOR [address] [facility] [address] [place], [place] [id number] documented as of this encounter Visit Diagnoses Not on filedocumented in this encounter Additional Health Concerns Assessment Noted Time A fall risk assessment has been complete d for the patient 01/22/2025 11:35 AM EDT documented as of this encounter Care Teams Cover Machine Operator Relationship Specialty Start Date End Date Shanique Fletcher MD [address] [place] [address] PCP - General Family Medicine 10/09/24 Yusuf Hayward MD Consulting Physician Cardiology 01/26/24 documented as of this encounter
--- OUTSIDE RECORDS SUMMARY | 2025-05-23 13:08 | XMS_ITS | Encounter Summary ---
Author Organization [facility] Address [address] [place] [address] Phone Care Team Providers Care Caltrans Equipment Operator Name Role Phone Yusuf Hayward MD, Marcia E MD Primary Care Provider Encounter Details Date Type Department Care Team (Late st Contact Info) Description 01/01/2025 Scanned Document [facility] [address] [place] [address] Scanning, Generic Provider Social History [...] suspected to have Coronavirus/COVID-19? No / Unsure 12/20/2024 11:19 AM EST documented as of this encounter Plan of Treatment Upcoming Encounters Date Type Department Care Team (Late st Contact Info) Description 06/06/2025 11:00 AM EDT [facility] [address] [facility] [address] [place] [address] [place], PLASTER PATTERN CASTER-INSPECTOR TOYS [address] [facility] [address] [place] [address] documented as of this encounter Procedures Procedure Name Priority Date/Time Associated Diagnosis Comments OUTSIDE LAB SCAN 01/01/2025 documented in this encounter Results * OUTSIDE LAB SCAN (01/01/2025) Narrative 01/01/2025 Ordered by an unspecified provider. us Generic Provider Scanning OUTSIDE SCAN Final Result documented in this encounter Visit Diagnoses Not on filedocumented in this encounter Additional Health Concerns Assessment Noted Time A fall risk assessment has been complete d for the patient 12/20/2024 11:28 AM EST documented as of this encounter Care Teams Caltrans Equipment Operator Relationship Specialty Start Date End Date Shanique Fletcher MD [address] [place] [address] PCP - General Family Medicine 10/09/24 Yusuf Hayward MD Consulting Physician Cardiology 01/26/24 documented as of this encounter
[2025-05-23 13:52] LABS: Anion Gap 8.6; Blood Urea Nitrogen 18.0 mg/dL (7.0-18.0); Calcium 9.6 mg/dL (8.5-10.1); Carbon Dioxide 31.8 mmol/L (21.0-32.0); Chloride 98 mmol/L (98-107); Estimated GFR (African America >60 (>=60 mL/min/1.73m^2); Estimated GFR (Non-African Ame 52 (>=60 mL/min/1.73m^2); Glucose 306 mg/dL (74-106); NT Pro B Type Natriuretic Pept 169.0 pg/mL (<=1800.0); Potassium 4.4 mmol/L (3.5-5.1); Sodium 134 mmol/L (136-145)
== END 2025-05-23 13:02 | disposition home or self-care (01) ==
LOC: LAB 13:05
PROVIDERS: PCP Family Medicine; Visit Provider Nurse Practitioner
DX: R06.09 Other forms of dyspnea (principal); R60.9 Edema, unspecified; I25.10 Atherosclerotic heart disease of native coronary artery without angina pectoris
CPT/HCPCS: 36415; 80048; 83880

== ENCOUNTER 2025-09-26 08:35 | Outpatient (OUT) | payer MEDICARE, SELFPAY ==
--- OUTSIDE RECORDS SUMMARY | 2025-09-26 08:48 | XMS_ITS | CCD ---
Author Organization [facility] Care Team Providers Care Security Project Manager Name Role Phone MICA HOOK Primary Care Unavailable KIMBERLY RECIO Referring Unavailable PRIYA BAGLEY Admitting Unavailable [place] Procedure Practitioner Unavailab ANITA Coon Surgeon Unavailable KURTIS STACY Attending Unavailable Unavailable Unavailable Mica Hook Unavailable CHANCE, DR MICA Klein Admitting Unavailable HOOK, DR MICA Klein Attending Unavailable CHANCE, DR MICA Klein Primary Care Unavailable CHANCE, DR MICA Klein Consulting Unavailable HOOK, DR MICA Klein Primary Care Unavailable SUE, ADAN Admitting Unavailable SUE, ADAN Attending Unavailable ZIEBSTEVIE, DR GRADY Barrett Consulting Unavailable ARRONCHROBBIN AVILES Consulting Unavailable DIAB, ADAN Consulting Unavailable CHANCE, DR MICA Klein Admitting Unavailable HOOK, DR MICA Klein Attending Unavailable CHANCE, DR MICA Klein Primary Care Unavailable CHANCE, DR MICA Klein Admitting Unavailable HOOK, DR MICA Klein Attending Unavailable HOOK, DR MICA Klein Primary Care Unavailable HOOK, DR MICA Klein Consulting Unavailable HOOK, DR MICA Klein Admitting Unavailable HOOK, DR MICA Klein Attending Unavailable HOOK, DR MICA Klein Primary Care Unavailable HOOK, DR MICA Klein Consulting Unavailable Mica Hook Unavailable MD Mica Hook Primary Care Provider [phone] MD Uma Mccauley Attending Provider Yesy BRADSHAW, Dr. David Lebron Referring Unavailable Chance, Dr. Mica Palacios Primary Care Unav ailable Yesy BRADSHAW, Dr. David Lebron Attending Unavailable Yesy BRADSHAW, Dr. David Lebron Referring Unavailable Chance, Dr. Mica Palacios Primary Care Unav ailable Yesy BRADSHAW, Dr. David Lebron Attending Unavailable Uma Mccauley Unavailable MD [...] MD Chin Rodarte Attending Provider MD Amanda d Yaser Other Provider MD Last [place] Other [...] Other Provider DO Yves Rollins Other Provider FRANK Fischer Other Provider DO Sergo Pike [...] Provider Mica Hook MD Primary Care Provider David Hayward MD Unavailable MD Mica Hook Primary Care Provider MD Tosha Patel Attending Provider MD Mica Hook Attending Provider [phone] MD Epi Booth Attending Provider MD Epi Booth Attending Provider MD Mica Hook Primary Care Provider MD Mica Hook Primary Care Provider MD Tosha Patel Attending Provider JAS STUART Attending Unavailable TOMASZ RON Referring Unavailable DO Roberto Carlos Mcdermott Admit Provider DO Roberto Carlos Mcdermott Attending Provider MD Tl Wild Other Provider PROVIDER, UNKNOWN Attending Unavailable PROVIDER, UNKNOWN Admitting Unavailable MD Mica Hook Primary Care Provider David Hayward MD Unavailable UnavailMica Jesus MD Primary Care Provider Mica Hook MD Primary Care Provider Angelo FOWLER, Karen Unavailable Unavailable Mica Hook MD Primary Care Provider Tosha Patel MD Attending Provider David Hayward MD Unavailable UnavailMica Jesus MD Primary Care Provider Amanda GONSALVES, Tosha Lo Attending Provider [phone] José Antonio Hills APRN Attending Provider Mica Hook MD Primary Care Provider [phone] Mica Hook MD Primary Care Provider Mica Hook MD Primary Care Provider DAVID MCDERMOTT Referring Unavailable HOOK, MICA E Primary Care Unavailable BALDEMARDAVID DYE Referring Unavailable HOOK, MICA E Primary Care Unavailable JOSÉ ANTONIO HILLS Referring Unavailable HOOK, MICA E Primary Care Unavailable Mica Hook MD Primary Care Provider Norma Diaz APRN Attending Provider Mica Hook MD Attending Provider José Antonio Hills APRN Attending Provider [phone] Norma Diaz Admitting Unavailable Norma Diaz Attending Unavailable Hook, Mica E Primary Care Unavailable Tosha Patel Admitting Unavailbrea e Tosha Patel Attending Unavailabl e Chance, Mica E Primary Care Unavailable Tl Wild Consulting Unavaila Roberto Carlos Murrell Admitting Unavailable Roberto Carlos Mcdermott Attending Unavailable Lanny, José Antonio K Admitting Unavailable Hills, José Antonio K Attending Unavailable Hook, Mica E Primary Care Unavailable Hills, José Antonio K Admitting Unavailable Hills, José Antonio K Attending Unavailable Hook, Mica E Primary Care Unavailable HILLS, JOSÉ ANTONIO K Attending Unavailable HILLS, JOSÉ ANTONIO K Referring Unavailable HOOK, MICA E Primary Care Unavailable BALDEMARDAVID DYE S Attending Unavailable HOOK, MICA E Primary Care Unavailable LANNY JOSÉ ANTONIO K Attending Unavailable BALDEMARDAVID DYE S Referring Unavailable HOOK, MICA E Primary Care Unavailable HILLS, JOSÉ ANTONIO K Attending Unavailable HILLS, JOSÉ ANTONIO K Referring Unavailable HOOK, MICA E Primary Care Unavailable HILLS, JOSÉ ANTONIO K Attending Unavailable HILLS, JOSÉ ANTONIO K Referring Unavailable HOOK, MICA E Primary Care Unavailable MARNIE HILLSNA K Attending Unavailable HILLS, JOSÉ ANTONIO K Referring Unavailable HOOK, MICA E Primary Care Unavailable Mica Hook MD Primary Care Provider Norma Diaz APRN Attending Provider Olvin Rose RN Attending Provider Mica Austin MD Primary Care Provider Norma Diaz APRN Attending Provider Allergies Allergy ClassificationReported Allergen(s)Allergy TypeDate of OnsetReaction(s) Facility (20 sources)cilostazolDrug Sknbhkl27-13-3007qnifoxeObdNorwalk [facility] Hospital Repository (20 sources)metFORMIN; Translations: [METFORMIN]Drug Avivweh66-76-1235Lieznghz [facility] Repository (20 sources)Penicillins; Translations: [PENICILLINS]Drug allergy (disorder) 25-97-1414Yuosuz/vomitingThe [facility] Repository (20 sources)metFORMIN; Translations: [metformin]Drug Jybikzv48-31-6595Bcloz, Unknown, GI intoleranceProMedica Fostoria [facility] (20 sources)oxyCODONE; Translations: [oxycodone]Drug Ubnyzdg69-74-8657 [facility] (6 sources)Penicillins; Translations: [Penicillins]Allergy to drug (finding)[place] [address] DO Work Phone: (1 source)metFORMINDrug Feblqwp46-85-8634Jmq [facility] Repository (1 source)oxyCODONEDrug Evfytcj55-38-0882Nvw [facility] Repository (16 sources)PenicillinDrug AllergyanaphylaxisNoWhoGotStuff Other (8 sources)AspirinDrug AllergyUnknownNlake regional health system [facility] Other (18 sources)aspirin contraindicatedPropensity to adverse gzyyvxujx60-62-5276 Comment:adverse rxn/side effectsNoWhoGotStuff Other (2 sources)patient allergy list reviewed by nurse or physiciaPropensity to adverse ucddmrlbc98-58-7762Pdulzyv:DoneNoWhoGotStuff Other (18 sources)Yonny GAVIN *HYPNOTICS/SEDATIVES/SLEEP DISORDER AGENPropensity to adverse reactionsCranston [facility] Hospital SEWORKS Other (6 sources)Allergies ReconciledPropensity to adverse reactionsEllis Fischel Cancer Center [facility] Other (18 sources)Substance with penicillin structure and antibacterial mechanism of action (substance)Drug allergyanaphylaxisUniversal Health Services SEWORKS Other (3 sources)zolpidemDrug Fqqemgt99-62-1341QrkdmdmkzEmfcetynuLancaster Municipal Hospital (5 sources)PenicillinsDrug Ccplgrc86-65-1298Eywzuw/vomitingProMedica Fostoria [facility] Hospital Work Phone: (2 sources)CilostazolAllergy to fxcrrafxo26-19-7282HrordfiUTSW Healthcare (2 sources)PenicillinsDrug Ovtuctj47-91-3081Qjzddugwtly, GI intoleranceNOMS Healthcare (4 sources)PenicillinsDrug Fnbcvgg54-37-3996Elbuti/vomitingProMedica Fostoria [facility] Work Phone: (1 source)cilostazolDrug Nvmzdtw94-82-5335RlpofyrlsMet[facility] Repository (1 source)metFORMINDrug Dedcyrz39-66-3689OjodfwvwkMetrohealth [facility] Repository (1 source)oxyCODONEDrug Ovmelue54-06-4591MqrdmfepxMetrohealth [facility] Repository (1 source)PenicillinsDrug allergy (disorder)93-51-7025ZxleifvjnMetrohealth [facility] Repository Medications Current Medications MedicationDrug Class(es)DatesSig (Normalized)Sig (Original)acetaminophen 325 mg oral tablet (20 sources)Start: 42-73-4592sgso 1 tablet by mouth three times daily as needed for painAcetaminophen (Tylenol) 325 mg tablet Active 325 MG PO Three times daily as needed for pain January 17, 2024 11:34am Complies with drug therapyStart: 10-26-2023 End: 70-61-9402dcxc 2 tablets by mouth three times dailyAcetaminophen (Tylenol) 325 mg Tablet Discontinued 650 MG PO Three times daily 90 October 26, 2023 1:00am January 17, 2024 11:36amtake 1 tablet by mouth every eight hours as neededacetaminophen (Tylenol) 325 mg tablet Take 1 tablet (325 mg) by mouth every 8 hours if needed for mild pain (1 - 3). Activetake 1 tablet by mouth three times daily as neededAcetaminophen 325 MG 1 tablet as needed Orally three times daily ActiveAcetaminophen / HYDROcodone (12 sources)Opioid AgonistStart: 05-88-0279vbhy 1-2 tablets by mouth every six hours as neededHYDROcodone-Acetaminophen 5-325 MG Oral Tablet TAKE 1 TO 2 TABLETS BY MOUTH EVERY 6 HOURS NEEDEDFOR 7 DAYS Quantity: 50 Refills: 0 Ordered: 24-Dec-2022 DO Start : 23-Dec-2022 ActiveStart: 94-81-8749dzer 1-2 tablets by mouth every six hours as needed for painNorco 5-325 MG 1-2 tablets as needed for pain Orally every 6 hrs for 7 days Dec, ActiveStart: 06-51-3238gpzf 1-2 tablets by mouth every six hours as neededNorco 5-325 MG 1-2 tablets as needed Orally every 6 hrs for 7 days Dec, Activeascorbic acid 500 mg oral tablet (20 sources)Vitamin CStart: 55-50-3042Umwuwnfk Acid (Vitamin C) (Vitamin C) 500 mg tablet Active 250 MG PO Daily September 08, 2024 8:55am Complies with drug therapyStart: 11-03-2023 End: 23-65-8066rlvd 1 tablet by mouth once dailyAscorbic Acid (Vitamin C) (Vitamin C) 500 mg Tablet Discontinued 500 MG PO Daily November 03, 2023 1:00am September 08, 2024 9:00amtake 1 capsule by mouth once dailyascorbic acid (Vitamin C) 500 mg ER capsule Take 1 capsule (500 mg) by mouth once daily. ActiveVitamin C Activeaspirin 81 mg delayed release oral tablet (20 sources)Platelet Aggregation Inhibitor, Nonsteroidal Anti-inflammatory Drug Start: 63-07-1123pwff 1 tablet by mouth twice dailyAspirin 81 mg tablet,delayed release (DR/EC) Active 81 MG PO Twice daily September 04, 2024 1:36pm Complies with drug therapyStart: 01-04-2024 End: 87-26-3543zziy 1 capsule by mouth once dailyAspirin 81 mg capsule Discontinued 81 MG PO Daily January 04, 2024 11:35am January 04, 2024 11 :52amStart: 10-27-2023 End: 48-77-2552bpgi 1 capsule by mouth twice dailyAspirin 81 mg capsule Discontinued 81 MG PO Twice daily 40 October 27, 2023 1:00am January 042023 11:36amStart: 10-11-2023 End: 09-94-4352nxcz 1 capsule by mouth once dailyAspirin 81 mg Capsule Discontinued 81 MG PO Daily October 11, 2023 1:00am October 26, 2023 3:57pm Start: 05-05-2019 End: 44-37-8981vsoq 1 tablet by mouth once dailyAspirin 81 mg Tablet,Delayed Release (Dr/Ec) Discontinued 81 MG PO Daily 0 November 03, 2023 1:00am September 04, 2024 1:41pmtake 1 tablet by mouth once dailyaspirin 81 MG chewable tablet Chew 1 tablet every day by oral route. Activeatorvastatin 80 mg oral tablet (20 sources)HMG-CoA Reductase InhibitorStart: 11-30-2024 End: 43-85-8496orhq 1 tablet by mouth once daily at bedtimeAtorvastatin 80 mg tablet Active 0 .ROUTE .COMPLEX 90 February 28, 2025 9:16am TAKE 1 TABLET BY MOUTH EVERYDAY AT BEDTIME Complies with drug therapyStart: 05-05-2019 End: 43-84-7764njfi 1 tablet by mouth once daily at bedtimeAtorvastatin 80 mg tablet Discontinued 80 MG PO Daily at bedtime December 24, 2023 10:57am December 30, 2023 9:45amBlood-Glucose Meter (Onetouch Ultra2 Meter) misc (20 sources)Start: 49-87-6981Xdipl-Glucose Meter (Onetouch Ultra2 Meter) misc Active EACH .ROUTE .MEDSUPPLY January 04, 2024 12:00am As directedStart: 17-19-0129Aptch-Glucose Meter (Onetouch Ultra2 Meter) misc Active EACH .ROUTE .MEDSUPPLY January 04, 2024 1:00am As directedBlood-Glucose Sensor (Freestyle Violeta 3 Plus Sensor) device (20 sources)Start: 26-57-5869Kdzlg-Glucose Sensor (Freestyle Violeta 3 Plus Sensor) device Active 0 .Route March 08, 2025 8:16am As directed change every 10 daysStart: 08-07-2024 End: 37-23-6258Iqngl-Glucose Sensor (Freestyle Violeta 3 Plus Sensor) device Discontinued 0 .Route 6 July 8:20am March 08, 2025 8:16am As directed change every 10 daysStart: 42-96-8449Gfzcp-Glucose Sensor (Freestyle Violeta 3 Plus Sensor) device Active 0 .Route August 07, 2024 7:20am As directed change every 10 daysStart: 36-97-7195Yjtil-Glucose Sensor (Freestyle Violeta 3 Plus Sensor) device Active 0 .Route August 07, 2024 8:20am As directed change every 10 daysStart: 08-07-2024 End: 44-54-0580Gvmqv-Glucose Sensor (Freestyle Violeta 3 Plus Sensor) device Discontinued 0 .Route August 06, 2024 11:00pm August 07, 2024 7:21am As directedStart: 08-07-2024 End: 65-16-6436Cpkbe-Glucose Sensor (Freestyle Violeta 3 Plus Sensor) device Discontinued 0 .Route August 07, 2024 12:00am August 07, 2024 8:21am As directedcalcium carbonate 1625 mg / cholecalciferol 0.0125 mg / vitamin k 0.04 mg chewable tablet (5 sources)Vitamin DStart: 66-84-4589Ftreskc-Vitamin D3-Vitamin K (Viactiv) 650 mg-12.5 mcg-40 mcg tablet,chewable Active 650 TAB PO .COMPLEX September 08, 2024 12:00am 650 tabs orally 2 chews daily; Complies with drug therapyCalcium Carbonate+Vitamin D (7 sources)Calcium Carbonate+Vitamin D ActiveCalcium-Vitamin D3-Vitamin K (Viactiv) 650 mg-12.5 mcg-40 mcg tablet,chewable (8 sources)Start: 16-25-2603Mnducqh-Vitamin D3-Vitamin K (Viactiv) 650 mg-12.5 mcg-40 mcg tablet,chewable Active 650 TAB PO .COMPLEX September 07, 2024 11:00pm 650 tabs orally 2 chews daily;Start: 50-90-4977Cirugbw-Vitamin D3-Vitamin K (Viactiv) 650 mg-12.5 mcg-40 mcg tablet,chewable Active 650 TAB PO .COMPLEX September 08, 2024 12:00am 650 tabs orally 2 chews daily;clindamycin 300 mg oral capsule (20 sources)Lincosamide AntibacterialStart: 29-19-4180Pocukyxhrxp Hcl 300 mg capsule Active 300 MG PO as needed May 24, 2025 12:00am for dental appt Co mplies with drug therapyStart: 96-48-3444umrytbynboe (Cleocin) 300 mg capsule TAKE 2 CAPSULES 1 HOUR PRIOR TO DENTAL APPOINTMENT 01/02/2024 ActiveStart: 12-82-7919xbhk 4 capsules by mouth every hourClindamycin HCl - 150 MG Oral Capsule TAKE 4 CAPSULES BY MOUTH 1 HOUR PRIOR TO DENTAL APPOINTMENT Quantity: 12 Refills: 0 Ordered: 15-Sep-2021 DO Start : 15-Sep-2021 Active End: 84-80-9928wzec 1 capsule by mouth three times dailyclindamycin (Cleocin) 150 mg capsule Take 1 capsule (150 mg) by mouth 3 times a day. 07/13/2024 Disc ontinued (Dose adjustment)clopidogrel 75 mg oral tablet (20 sources)P2Y12 Platelet InhibitorStart: 07-31-2024 End: 06-49-5763jvxa 1 tablet by mouth once dailyClopidogrel 75 mg tablet Active 75 MG PO Daily September 04, 2024 12:00am Complies with drug therapyCranberry preparation (10 sources)Non-Standardized Food Allergenic Extract, Non-Standardized Plant Allergenic ExtractAZO Cranberry Activediclofenac sodium 0.01 mg/mg topical gel (20 sources)Nonsteroidal Anti-inflammatory DrugStart: 17-20-5241kepiajrcpb sodium 1 % gel Three times daily 03/07/2024 ActiveStart: 10-26-2023 End: 75-09-6742mmycz 2 g topically three times daily as needed for arthritis Diclofenac Sodium 1 % gel Active 2 GM TOPICAL Three times daily as needed for Arthritis February 11:11am Complies with drug therapyStart: 10-26-2023 End: 70-15-5183rxmgo 2 g topically three times dailyDiclofenac Sodium Active 2 GM TOPICAL Three times daily March 07, 2024 11:11amStart: 75-73-1270Lfqvhvqb 1 % apply 1-2 grams to affected area Externally BID for 30 days March, Not-Taking/PRNStart: 85-41-1116Tpshhwev 1 % apply 1-2 grams to affected area Externally BID for 30 days March, ActiveStart: 28-72-2093Jgevrulr 1 % apply 1-2 grams to affected area Externally BID for 30 days March, Active Start: 05-05-2019 End: 89-00-6014lnnd 1 tablet by mouth twice dailyDiclofenac Sodium 75 mg tablet,delayed release (DR/EC) Discontinued 75 MG PO Twice daily April 12:00am October 11, 2023 5:25pmdiclofenac sodium (Voltaren) 1 % gel Apply 2.25 inches (2 g) topically 3 times a day as needed (arthritis). ActiveDiclofenac Sodium 1 % as directed Externally ActivediphenhydrAMINE hydrochloride 25 mg oral capsule (20 sources)Histamine-1 Receptor AntagonistStart: 40-68-5045jnld 1 capsule by mouth at bedtime as needed for sleepDiphenhydramine Hcl (Benadryl) 25 mg capsule Active 25 MG PO Bedtime as needed for sinus symptoms, Sleep January 14, 2024 1:00am Complies with drug therapydiphenhydrAMINE (Sominex) 25 mg tablet Take 1 tablet (25 mg) by mouth as needed at bedtime for sleep. ActiveBenadryl Active docusate sodium 50 mg / sennosides, long term 8.6 mg oral tablet (20 sources)Start: 09-04-2024 End: 01-42-5412frdh 1 tablet by mouth once daily as neededSennosides-Docusate Sodium 8.6-50 mg tablet Active 1 TAB-CAP PO Daily as needed September 08, 2024 8 :59am Complies with drug therapyStart: 06-29-2024 End: 04-53-8556qvmk 1 tablet by mouth twice dailySennosides-Docusate Sodium 8.6- 50 mg tablet Discontinued 1 TAB-CAP PO Twice daily June 292:00am September 04, 2024 1:41pmtake 2 tablets by mouth once dailysennosides-docusate sodium (Juliana-Colace) 8.6-50 mg tablet Take 2 tablets by mouth once daily. 0 Acti vefluconazole 100 mg oral tablet (2 sources)Azole Antifungalfluconazole (Diflucan) 100 MG tablet ActiveFreeStyle Violeta 3 Sensor - (7 sources)FreeStyle Violeta 3 Sensor - as directed q 14 days ActiveFreeStyle Violeta 3 Sensor - as directed q 14 days for 30 days ActiveglyBURIDE 2.5 mg oral tablet (2 sources)Sulfonylureatake 1 tablet by mouth once dailyglyBURIDE (Diabeta) 2.5 MG tablet Take 1 tablet every day by oral route for 90 days. ActiveguaiFENesin (7 sources)Mucinex Active3 ml insulin glargine 100 unt/ml pen injector (20 sources)Insulin AnalogStart: 21-20-1881Gexzoap Glargine (Basaglar Kwikpen U- 100 Insulin) 100 unit/mL (3 mL) insulin pen Active 0 SUBCUT Every morning July 25, 2025 11:09am 22 units subcutaneously every morning; Complies with drug therapyStart: 05-24-2025 End: 93-90-4666Nxotdrr Glargine (Basaglar Kwikpen U-100 Insulin) 100 unit/mL (3 mL) insulin pen Discontinued 0 SUBCUT Every morning May 24, 2025 12:00am July 25, 2025 11:11am 26 units subcutaneously everymorning;Start: 05-14-2025 End: 69-89-1037Baoyfxh Glargine (Lantus Solostar U-100 Insulin) 100 unit/mL (3 mL) insulin pen Discontinued 26 UNIT SUBCUT Every evening May 14, 2025 12:00am May 24, 2025 8:31am Titrate to 40 u once daily, has written instructionsStart: 10-26-2023 End: 84-47-3225Nmgayg Solostar U-100 Insulin 100 unit/mL (3 mL) pen 10/26/2023 05/09/2025 Discontinued (Therapy completed)Start: 10-26-2023 End: 87-59-9624Xxucewh Glargine (Lantus Solostar U-100 Insulin) 100 unit/mL (3 mL) Insulin Pen Discontinued 25 UNIT SUBCUT Daily 7.5 October 26, 2023 1:00am January 17, 2024 11:44amStart: 05-05-2019 End: 66-58-3725esrfpq 12 [IU] by subcutaneous injection once daily at bedtime Insulin Glargine 100 unit/mL (3 mL) insulin pen Discontinued 12 UNIT SUBCUT Daily at bedtime May 05, 2019 12:00am October 11, 2023 5:25pmLantus SoloStar 100 UNIT/ML as directed Subcutaneous ActiveLantus 100 UNIT/ML as directed Subcutaneous 25 units Not-Takingisopropyl alcohol 0.7 ml/ml medicated pad (18 sources)Start: 02-06-2025 End: 08-46-2009Oheohny Swabs (Alcohol Prep Pads) pads, medicated Active 1 PAD TOPICAL .COMPLEX 200 February 0654:17pm 1 pad topically use with insulin injections; Complies with drug therapyStart: 30-67-3739Smjagwc Prep Pads 70 % Use with Insulin pens Topical 4 times per day for 90 days Dec, Active levothyroxine sodium 0.05 mg oral tablet (20 sources)l-ThyroxineStart: 70-28-7478push 1 tablet by mouth once daily in the morningLevothyroxine 50 mcg tablet Active 0 .ROUTE .COMPLEX 90 February 28, 2025 9:16am TAKE 1 TABLET BY MOUTH EVERY DAY AT 6:30 AM FOR 90 DAYS Complies with drug therapyStart: 05-05-2019 End: 00-13-6746qzwm 1 tablet by mouth once dailyLevothyroxine 50 mcg tablet Discontinued 50 MCG PO Daily at 0630 90 90 September 04, 2024 2:00pm January 29, 2025 3:42pmtake 1 tablet by mouth once dailyLevothyroxine Sodium 50 MCG TAKE 1 TABLET BY MOUTH EVERY DAY for 90 ActiveMastectomy Bra unit (12 sources)Start: 31-12-3564Xopenlgaec Bra unit Active 0 .Route October 03, 2024 1:00am As directedStart: 21-99-9405Iaufhrkmmt Bra unit Active 0 .Route October 03, 2024 12:00am As directedmeclizine hydrochloride 12.5 mg oral tablet (2 sources)Antiemeticmeclizine (Antivert) 12.5 MG tablet Ivybsc04 hr metoprolol succinate 50 mg extended release oral tablet (20 sources)beta-Adrenergic BlockerStart: 71-16-4724oayp 1 tablet by mouth once dailyMetoprolol Succinate 50 mg Tablet Extended Release 24 Hr Active 50 MG PO Daily June 30, 2024 12:00am Complies with drug therapynitroglycerin 0.4 mg sublingual tablet (20 sources)Nitrate VasodilatorStart: 06-30-2024 End: 07-17-1982afjgsdupaifnr (Nitrostat) 0.4 mg SL tablet Nitroglycerin Active 0.4 MG SUBLINGUAL Q5M June 30, 2024 12:00am 06/30/2024 05/09/2025 Discontinued (Reorder)Start: 06-30-2024 End: 73-27-0078Wnxwtaertysdi 0.4 mg Tablet, Sublingual Active 0.4 MG SUBLINGUAL Q5M as needed for Chest Pain 2023 12:00am Complies with drug therapyondansetron 4 mg disintegrating oral tablet (4 sources)Serotonin-3 Receptor Antagonistondansetron ODT (Zofran-ODT) 4 MG disintegrating tablet Activeondansetron (Zofran) 4 MG tablet ActiveOne Touch Glucometer (5 sources)Start: 57-34-9887Dct Touch Glucometer as directed sq 4 times daily for 365 days Dx E11.65 or insurance preferred Nov, ActiveOzempic 0.25 mg or 0.5 mg (2 mg/3 mL) pen injector (1 source)Start: 39-04-4519llpfye 0.25 mg by subcutaneous injection every week Ozempic 0.25 mg or 0.5 mg (2 mg/3 mL) pen injector INJECT 0.25 MG SUBCUTANEOUSLY EVERY WEEK. INCREASE TO 0.5 MG ON WEEK 5 IF TOLERATED 05/12/2025 Active Semaglutide (10 sources)Start: 56-74-2972qelsdy 0.5 mg by subcutaneous injection every week Semaglutide (Ozempic) 0.25 mg or 0.5 mg (2 mg/3 mL) pen injector Active 0.25 MG SUBCUT every week 3July 2024 1:00pm Titrate to 0.5 mg weekly week 5 if tolerated Complies with drug therapyStart: 20-95-0974tboacv 0.5 mg by subcutaneous injection every weekStart: 04-09-2025 End: 44-18-0445hoptgx 0.5 mg by subcutaneous injection every weekSemaglutide (Ozempic) 0.25 mg or 0.5 mg (2 mg/3 mL) pen injector Discontinued 0.25 MG SUBCUT every week 3 April 09, 2025 12:00am May 14, 2025 1:01pm Titrate to 0.5 mg weekly week 5 if toleratedSenna Leaves (5 sources)Start: 64-38-3420mstdj (Senokot) Active PO March 07, 2024 12:00am torsemide 20 mg oral tablet (12 sources)Loop DiureticStart: 02-26-2025 End: 89-27-2874edeu 2 tablets by mouth once dailyTorsemide 20 mg tablet Active 40 MG PO Daily February 28, 2025 12:00am Complies with drug therapyvalsartan 40 mg oral tablet (20 sources)Angiotensin 2 Receptor BlockerStart: 05-28-2025 End: 89-82-8467ztkv 1 tablet by mouth every twelve hoursvalsartan (Diovan) 40 mg tablet Indications: Essential hypertension, benign Take 1 tablet (40 mg) by mouth every 12 hours. 180 tablet 3 05/28/2025 06/27/2025 ActiveStart: 06-30-2024 valsartan (Diovan) 40 mg tablet 1 tablet (40 mg) once daily. 06/30/2024 Active Start: 16-94-2461nnyo 1 tablet by mouth twice dailyValsartan 40 mg tablet Active 40 MG PO Twice daily 60 June 30, 2024 12:00am Complies with drug therapy Zinc Gluconate-Vitamin C (2 sources)Start: 45-99-9780tofa 1 tablet by mouth once dailyZinc Gluconate- Vitamin C Active 1 TAB PO Daily June 29, 2024 12:00am Takes 50 mg of Zinc Gluconate and no more than 500 mg of Vitamin C. Completed/Discontinued Medications MedicationDrug Class(es)DatesSig (Normalized)Sig (Original)acetaminophen 325 mg / oxyCODONE hydrochloride 5 mg oral tablet (20 sources)Opioid AgonistStart: 10-26-2023 End: 88-94-8287lcpr 1 tablet by mouth every four hours as needed for pain Oxycodone-Acetaminophen 5-325 mg Tablet Discontinued 1 TAB PO Q4H as needed for Pain Scale 7-10 20 October 26, 2023 January 17, 2024 11:45amStart: 10-15-2023 End: 80-63-1834recv 1 tablet by mouth every four hours as needed for pain Oxycodone-Acetaminophen 5-325 mg Tablet Discontinued 1 TAB PO Q4H as needed for Pain Scale 4 - 7 105 October 15, 2023 October 15, 2023 2:48pmStart: 10-15-2023 End: 10-93-2809gjop 1 tablet by mouth every four hours as needed for pain Oxycodone-Acetaminophen 5-325 mg Tablet Discontinued 1 TAB PO Q4H as needed for Pain Scale 4 - 7 105 October 15, 2023 October 15, 2023 2:48pmStart: 10-15-2023 End: 88-68-3913jqat 1 tablet by mouth every four hours as needed for pain Oxycodone-Acetaminophen 5-325 mg Tablet Discontinued 1 TAB PO Q4H as needed for Pain Scale 4 - 7 105 October 15, 2023 October 15, 2023 2:48pmStart: 10-15-2023 End: 61-14-6516ckkf 1 tablet by mouth every four hours as needed for pain Oxycodone-Acetaminophen 5-325 mg Tablet Discontinued 1 TAB PO Q4H as needed for Pain Scale 4 - 7 October 15, 2023 October 15, 2023 2:48pmStart: 10-15-2023 End: 30-49-0651nxqq 1 tablet by mouth every four hours as needed for pain Oxycodone-Acetaminophen 5-325 mg Tablet Discontinued 1 TAB PO Q4H as needed for Pain Scale 4 - 7 October 15, 2023 October 15, 2023 2:48pmStart: 10-15-2023 End: 94-29-9433qmmf 1 tablet by mouth every four hours as needed for pain Oxycodone-Acetaminophen 5-325 mg Tablet Discontinued 1 TAB PO Q4H as needed for Pain Scale 4 - 7 October 15, 2023 October 15, 2023 2:48pmStart: 10-15-2023 End: 64-47-0186kidn 1 tablet by mouth every four hours as needed for pain Oxycodone-Acetaminophen 5-325 mg Tablet Discontinued 1 TAB PO Q4H as needed for Pain Scale 4 - 7 105 October 15, 2023 October 15, 2023 2:48pmStart: 10-15-2023 End: 78-90-4736uqhz 1 tablet by mouth every four hours as needed for pain Oxycodone-Acetaminophen 5-325 mg Tablet Discontinued 1 TAB PO Q4H as needed for Pain Scale 4 - 7 105 October 15, 2023 October 15, 2023 2:48pmStart: 10-15-2023 End: 04-29-3277xlfk 1 tablet by mouth every four hours as needed for pain Oxycodone-Acetaminophen 5-325 mg Tablet Discontinued 1 TAB PO Q4H as needed for Pain Scale 4 - 7 105 October 15, 2023 October 15, 2023 2:48pmStart: 10-15-2023 End: 78-12-8276nagh 1 tablet by mouth every four hours as needed for pain Oxycodone-Acetaminophen 5-325 mg Tablet Discontinued 1 TAB PO Q4H as needed for Pain Scale 4 - 7 October 15, 2023 October 15, 2023 2:48pmStart: 10-15-2023 End: 16-27-5210xltc 1 tablet by mouth every four hours as needed for pain Oxycodone-Acetaminophen 5-325 mg Tablet Discontinued 1 TAB PO Q4H as needed for Pain Scale 4 - 7 October 15, 2023 October 15, 2023 1:48pmStart: 10-15-2023 End: 94-94-0836flxd 1 tablet by mouth every four hours as needed for pain Oxycodone-Acetaminophen 5-325 mg Tablet Discontinued 1 TAB PO Q4H as needed for Pain Scale 4 - 7 October 15, 2023 October 15, 2023 1:48pmStart: 10-15-2023 End: 47-15-7744jogx 1 tablet by mouth every four hoursOxycodone-Acetaminophen Discontinued 1 TAB PO Q4H 08 12October 15, 2023 October 15, 2023 2:48pm Start: 10-15-2023 End: 73-21-0047nhmg 1 tablet by mouth every four hoursOxycodone-Acetaminophen Discontinued 1 TAB PO Q4H 08 12October 15, 2023 October 15, 2023 2:48pm Start: 10-15-2023 End: 12-24-0428zbsb 1 tablet by mouth every four hoursOxycodone-Acetaminophen Discontinued 1 TAB PO Q4H 10 October 15, 2023 October 15, 2023 2:48pm Start: 10-15-2023 End: 23-72-6893rmkx 1 tablet by mouth every four hoursOxycodone-Acetaminophen Discontinued 1 TAB PO Q4H 10 October 15, 2023 October 15, 2023 2:48pm Start: 10-15-2023 End: 05-79-6575chhr 1 tablet by mouth every four hoursOxycodone-Acetaminophen Discontinued 1 TAB PO Q4H 10 October 15, 2023 October 15, 2023 2:48pm Start: 10-15-2023 End: 77-64-8608qjox 1 tablet by mouth every four hoursOxycodone-Acetaminophen Discontinued 1 TAB PO Q4H 10 October 15, 2023 October 15, 2023 2:48pm Start: 10-15-2023 End: 56-46-3054azfv 1 tablet by mouth every four hoursOxycodone-Acetaminophen Discontinued 1 TAB PO Q4H 10 October 15, 2023 October 15, 2023 2:48pm Start: 10-15-2023 End: 97-56-1312kwuk 1 tablet by mouth every four hoursOxycodone-Acetaminophen Discontinued 1 TAB PO Q4H 10 October 15, 2023 October 15, 2023 2:48pm Start: 10-15-2023 End: 20-35-9307ccac 1 tablet by mouth every four hoursOxycodone-Acetaminophen Discontinued 1 TAB PO Q4H 10 October 15, 2023 October 15, 2023 2:48pm Start: 10-15-2023 End: 46-03-0857nreh 1 tablet by mouth every four hoursOxycodone-Acetaminophen Discontinued 1 TAB PO Q4H 10 October 15, 2023 October 15, 2023 2:48pm Start: 10-15-2023 End: 91-68-7177nqbc 1 tablet by mouth every four hoursOxycodone-Acetaminophen Discontinued 1 TAB PO Q4H 10 October 15, 2023 October 15, 2023 1:48pm Start: 10-15-2023 End: 19-25-7508wzxx 1 tablet by mouth every four hoursOxycodone-Acetaminophen Discontinued 1 TAB PO Q4H 10 October 15, 2023 October 15, 2023 1:48pm Start: 10-15-2023 End: 73-70-1439gobv 1 tablet by mouth every four hoursOxycodone-Acetaminophen Discontinued 1 TAB PO Q4H 10 October 15, 2023 October 15, 2023 1:48pm Start: 94-01-5119fjkh 1 tablet by mouth every four hoursOxycodone-Acetaminophen Active 1 TAB PO Q4H 10 October 15, 2023Start: 10-15-2023 End: 53-42-0413ahge 1 tablet by mouth every four hours as needed for pain Oxycodone-Acetaminophen 5-325 mg tablet Discontinued 1 TAB PO Q4H as needed for Pain Scale 7-10 October 15, 2023 2:48pm October 26, 2023 3:57pmALPRAZolam 0.5 mg oral tablet (12 sources)BenzodiazepineStart: 12-19-4941Hmwsq 0.5 MG take 1 tablet by mouth 1/2 hour prior to MRI. May repeat in 1/2 hr if needed Orally for 1 days Feb, Not-TakingALPRAZolam (Xanax) 0.25 MG tablet ActiveAscorbic Acid / Zinc Gluconate (14 sources)Vitamin CStart: 06-29-2024 End: 85-84-1034muim 1 tablet by mouth once dailyAscorbic Acid-Zinc Gluconate 6.4-60 mg tablet,chewable Discontinued 1 TAB PO Daily June 29, 2024 12:00am September 04, 2024 1:35pm Takes 50 mg of Zinc Gluconate and no more than 500 mg of VitaminC.Start: 06-29-2024 End: 54-47-6808apqf 1 tablet by mouth once dailyAscorbic Acid-Zinc Gluconate 6.4-60 mg tablet,chewable Discontinued 1 TAB PO Daily June 28, 2024 11:00pm September 04, 2024 12:35pm Takes 50 mg of Zinc Gluconate and no more than 500 mg of Vitamin C.Start: 06-29-2024 End: 02-65-5165yzyd 1 tablet by mouth once dailyAscorbic Acid-Zinc Gluconate Discontinued 1 TAB PO Daily June 29, 2024 12:00am September 04, 2024 1:35pm Takes 50 mg of Zinc Gluconate and no more than 500 mg of Vitamin C.blood-glucose sensor (FreeStyle Violeta 3 Sensor) (20 sources)Start: 01-14-2024 End: 67-88-5607tmvao-glucose sensor (FreeStyle Violeta 3 Sensor) Discontinued .Route January 14, 2024 12:00am February 24, 2024 7:39amStart: 01-14-2024 End: 24-92-0260ybgxg-glucose sensor (FreeStyle Violeta 3 Sensor) Discontinued .Route January 14, 2024 1:00am February 24, 2024 8:39amStart: 28-32-3336qlpos- glucose sensor (FreeStyle Violeta 3 Sensor) Active .Route January 14, 2024 1:00am Blood-Glucose Sensor (Freestyle Violeta 3 Sensor) device (20 sources)Start: 02-24-2024 End: 21-15-5327Rapcp-Glucose Sensor (Freestyle Violeta 3 Sensor) device Discontinued 0 MISCELLANE .MEDSUPPLY 6 2023 8:35am July 25, 2025 11:11am As directed invitro, change every 14 daysStart: 43-97-4509Bbhnp- Glucose Sensor (Freestyle Violeta 3 Sensor) device Active 0 MISCELLANE .MEDSUPPLY February 7:35am As directed invitro, change every 14 daysStart: 76-94-7424Soysg-Glucose Sensor (Freestyle Violeta 3 Sensor) device Active 0 MISCELLANE .MEDSUPPLY 6 February 8:35am As directed invitro, change every 14 daysStart: 02-24-2024 End: 83-90-0667Dlyjh-Glucose Sensor (Freestyle Violeta 3 Sensor) device Discontinued 0 MISCELLANE .MEDSUPPLY 1 2023 11:00pm February 24, 2024 7:38am As directedStart: 02-24-2024 End: 94-33-7304Ljvjz-Glucose Sensor (Freestyle Violeta 3 Sensor) device Discontinued 0 MISCELLANE .MEDSUPPLY 1 2023 12:00am February 24, 2024 8:38am As directedStart: 01-04-2024 End: 39-90-8087Dopxq-Glucose Sensor (Freestyle Violeta 3 Sensor) device Discontinued 0 .Route January 04, 2024 12:00am January 04, 2024 10:50am As directedStart: 01-04-2024 End: 73-73-8727Imtux-Glucose Sensor (Freestyle Violeta 3 Sensor) device Discontinued EACH .ROUTE .MEDSUPPLY 1 January 04, 2024 12:00am January 04, 2024 10:50am As directedStart: 01-04-2024 End: 80-28-0390Xowok-Glucose Sensor (Freestyle Violeta 3 Sensor) device Discontinued 0 .Route January 04, 2024 1:00am January 04, 2024 11:50am As directedStart: 01-04-2024 End: 96-30-2117Kwtiv-Glucose Sensor (Freestyle Violeta 3 Sensor) device Discontinued EACH .ROUTE .MEDSUPPLY 1 January 04, 2024 1:00am January 04, 2024 11:50am As directedcalcium carbonate 1250 mg / cholecalciferol 200 unt oral tablet (14 sources)Vitamin DStart: 10-26-2023 End: 75-09-3416iudc 1 tablet by mouth twice dailyCalcium Carbonate-Vitamin D3 (Oyster Shell Calcium-Vit D3) 500 mg-5 mcg (200 unit) Tablet Discontinued 1 TAB PO Twice daily 60 October 26, 2023 1:00am September 08, 2024 8:56amcalcium carbonate-vitamin D3 600 mg-10 mcg (400 unit) chewable tablet Chew and swallow 1 tablet 2 times a day. ActiveCalcium Carbonate-Vitamin D3 (Oyster Shell Calcium- Vit D3) 500 mg-5 mcg (200 unit) Tablet (20 sources)Start: 10-26-2023 End: 95-64-8248dmpa 1 tablet by mouth twice dailyCalcium Carbonate-Vitamin D3 (Oyster Shell Calcium-Vit D3) 500 mg-5 mcg (200 unit) Tablet Discontinued 1 TAB PO Twice daily 60 October 26, 2023 12:00am September 08, 2024 7:56amStart: 10-26-2023 End: 54-56-6214lryq 1 tablet by mouth twice dailyCalcium Carbonate-Vitamin D3 (Oyster Shell Calcium-Vit D3) 500 mg-5 mcg (200 unit) Tablet Discontinued 1 TAB PO Twice daily October 26, 2023 1:00am September 08, 2024 8:56amStart: 25-80-4529lsmi 1 tablet by mouth twice dailyCalcium Carbonate-Vitamin D3 (Oyster Shell Calcium-Vit D3) 500 mg-5 mcg (200 unit) Tablet Active 1 TAB PO Twice daily October 26, 2023 1:00amStart: 91-89-8313zgca 1 tablet by mouth twice dailyCalcium Carbonate-Vitamin D3 (Oyster Shell Calcium-Vit D3) 500 mg-5 mcg (200 unit) Tablet Active 1 TAB PO Twice daily October 26, 2023 12:00am ciprofloxacin 500 mg oral tablet (20 sources)Quinolone AntimicrobialStart: 10-11-2023 End: 77-88-0083oyuu 1 tablet by mouth twice dailyCiprofloxacin Hcl 500 mg tablet Discontinued 500 MG PO Twice daily October 11, 2023 1:00am October 15, 2023 1:15pmStart: 62-52-6874rpkn 1 tablet by mouth every twelve hoursCiprofloxacin HCl 500 MG 1 tablet Orally every 12 hrs for 7 days Sep, ActiveStart: 80-57-6786efra 1 tablet by mouth every twelve hoursCiprofloxacin HCl 250 MG 1 tablet Orally every 12 hrs for 5 day(s) Jul, ActiveStart: 51-13-8057juwd 1 tablet by mouth every twelve hoursCipro 250 MG 1 tablet Orally every 12 hrs for 3 day(s) Nov, ActiveCiprofloxacin Not-Taking/PRNCiprofloxacin Active cyclobenzaprine hydrochloride 10 mg oral tablet (20 sources)Muscle RelaxantStart: 05-16-2019 End: 76-01-4020znpu 1 tablet by mouth three times daily as needed for muscle spasmsCyclobenzaprine 10 mg tablet Discontinued 10 MG PO Three times daily as needed for back spasms May 16, 2019 12:00am October 11, 2023 5:25pm Cyclosporine (20 sources)Calcineurin Inhibitor ImmunosuppressantStart: 10-26-2023 End: 19-66-6058ccog 1 drop(s) into the eye(s) every twelve hoursCyclosporine (Restasis) 0.05 % Dropperette Discontinued 1 DROPS EYE-BOTH October 26, 2023 1:00am June 07, 2024 11:22amStart: 10-11-2023 End: 59-04-5573uqxy 1 drop(s) into the eye(s) every twelve hoursCyclosporine (Restasis) 0.05 % Dropperette Discontinued 1 DROPS EYE-BOTH October 11, 2023 1:00am October 26, 2023 3:57pmStart: 05-05-2019 End: 76-23-6333ssju 1 drop(s) into the eye(s) twice dailyCyclosporine 0.05 % dropperette Discontinued 1 DROPS EYE-BOTH Twice daily May 05, 2019 12:00am [place] [facility] [place] 5:25pmStart: 05-05-2019 End: 81-86-3102osjk 1 drop(s) into the eye(s) twice dailyCyclosporine Discontinued 1 DROPS EYE-BOTH Twice daily May 05, 2019 12:00am October 11, 2023 5:25pmStart: 05-05-2019 End: 75-40-3384lmdn 1 drop(s) into the eye(s) twice dailyCyclosporine Discontinued 1 DROPS EYE-BOTH Twice daily May 04, 2019 11:00pm October 11, 2023 4:25pmStart: 05-10-6140jhvp 1 drop(s) into the eye(s) twice daily Cyclosporine Active 1 DROPS EYE-BOTH Twice daily May 05, 2019 12:00amtake 1 drop(s) into the eye(s) twice dailycycloSPORINE 0.05 % 1 drop into affected eye Ophthalmic Twice a day ActiveCyclosporine (Restasis) 0.05 % Dropperette (20 sources)Start: 10-26-2023 End: 36-39-0561smwk 1 drop(s) into the eye(s) every twelve hoursCyclosporine (Restasis) 0.05 % Dropperette Discontinued 1 DROPS EYE-BOTH October 26, 2023 12:00am June 07, 2024 10:22amStart: 10-26-2023 End: 23-29-2636hoxj 1 drop(s) into the eye(s) every twelve hoursCyclosporine (Restasis) 0.05 % Dropperette Discontinued 1 DROPS EYE-BOTH October 26, 2023 1:00am June 07, 2024 11:22amStart: 44-22-3850obod 1 drop(s) into the eye(s) every twelve hoursCyclosporine (Restasis) 0.05 % Dropperette Active 1 DROPS EYE-BOTH October 26, 2023 1:00amStart: 82-54-0282hujl 1 drop(s) into the eye(s) every twelve hoursCyclosporine (Restasis) 0.05 % Dropperette Active 1 DROPS EYE-BOTH October 26, 2023 12:00amStart: 10-11-2023 End: 05-31-6710znan 1 drop(s) into the eye(s) every twelve hoursCyclosporine (Restasis) 0.05 % Dropperette Discontinued 1 DROPS EYE-BOTH October 11, 2023 1:00am October 26, 2023 3:57pmStart: 10-11-2023 End: 99-31-0949taia 1 drop(s) into the eye(s) every twelve hoursCyclosporine (Restasis) 0.05 % Dropperette Discontinued 1 DROPS EYE-BOTH October 11, 2023 12:00am October 26, 2023 2:57pmStart: 24-30-0488wbhn 1 drop(s) into the eye(s) every twelve hoursCyclosporine (Restasis) 0.05 % Dropperette Active 1 DROPS EYE-BOTH October 11, 2023 12:00amCyclosporine 0.05 % dropperette (7 sources)Start: 05-05-2019 End: 15-98-1139skwp 1 drop(s) into the eye(s) twice dailyCyclosporine 0.05 % dropperette Discontinued 1 DROPS EYE-BOTH Twice daily May 05, 2019 12:00am [facility]2022 5:25pmStart: 05-05-2019 End: 39-86-3599ejva 1 drop(s) into the eye(s) twice dailyCyclosporine 0.05 % dropperette Discontinued 1 DROPS EYE-BOTH Twice daily May 04, 2019 11:00pm De jessber 2022 4:25pmD-Mannose (20 sources)Start: 01-14-2024 End: 74-89-0393aytv 1 mg by mouth once dailyD-Mannose (Azo D-Mannose) 500 mg capsule Discontinued MG PO Daily January 14, 2024 12:00am January 17, 2024 10:36amStart: 01-14-2024 End: 46-90-0040grgv 1 mg by mouth once dailyD-Mannose (Azo D-Mannose) 500 mg capsule Discontinued MG PO Daily January 14, 2024 1:00am January 17, 2024 11:36am 12 hr dextromethorphan hydrobromide 30 mg / guaiFENesin 600 mg extended release oral tablet (20 sources)Uncompetitive P-gctceh-E-aspartate Receptor Antagonist, Sigma-1 AgonistStart: 11-03-2023 End: 34-93-5216lcxh 1 tablet by mouth every twelve hours as needed Dextromethorphan-Guaifenesin (Mucinex Dm) 30-600 mg tablet extended release 12 hr Discontinued 1 TAB PO Every 12 hours as needed January 17, 2024 11:37am March 07, 2024 11:11amdocusate sodium 100 mg oral capsule (20 sources)Start: 10-26-2023 End: 05-55-7975psuo 1 capsule by mouth twice daily as neededDocusate Sodium 100 mg capsule Discontinued 100 MG PO Twice daily as needed January 17, 2024 11:37am March 07, 2024 11:12amtake 1 tablet by mouth every twenty-four hoursDocusate Sodium 100 MG 1 tablet as needed Orally Once a day Activeempagliflozin 25 mg oral tablet (12 sources)Sodium-Glucose Cotransporter 2 InhibitorStart: 08-13-2022 End: 39-28-3244bxde 1 tablet by mouth once dailyJardiance 25 mg Take 1 tablet (25 mg) by mouth once daily. 0 05/07/2023 01/26/2024 Discontinued (Discontinued by another clinician)0.4 ml enoxaparin sodium 100 mg/ml prefilled syringe (20 sources)Low Molecular Weight HeparinStart: 10-15-2023 End: 78-31-7353Boiomhhyym (Lovenox) 40 mg/0.4 mL Syringe Discontinued 40 MG SUBCUT DAILY@10 4 October 15, 2023 1:00am October 26, 2023 3:57pm fluticasone propionate 0.05 mg/actuat metered dose nasal spray (20 sources)CorticosteroidStart: 05-05-2019 End: 42-99-4400Tqdrjaabojq Propionate 50 mcg/actuation Scammon,Suspension Discontinued 1 SPRAY INTRANASAL Daily as needed for allergies May 05, 2019 12:00am October 11, 2023 5:25pmfurosemide 80 mg oral tablet (20 sources)Loop DiureticStart: 01-29-2025 End: 43-47-0125ayfo 1 tablet by mouth once dailyfurosemide (Lasix) 80 mg tablet Indications: Cardiomyopathy, ischemic Take 1 tablet (80 mg) by mouth once daily. 90 tablet 3 01/29/2025 02/26/2025 Discontinued (Therapy completed)Start: 06-30-2024 End: 76-77-3342ukre 1 tablet by mouth two times weeklyFurosemide 40 mg tablet Discontinued 40 MG PO Twice a Week 08 07June 30, 2024 10:51am February 28, 2025 11:19amStart: 28-67-9932xdfr 1 tablet by mouth twice dailyfurosemide (Lasix) 40 MG tablet Take 1 tablet twice a day by oral route for 90 days. 12/16/2023 ActiveStart: 12-13-2023 End: 18-45-9459ddiu 1 tablet by mouth once dailyFurosemide 40 mg tablet Discontinued 40 MG PO Daily January 04, 2024 1:00am March 07, 2024 11:13am Start: 28-59-1025ovkc 1 tablet by mouth twice dailyFurosemide 40 MG Oral Tablet take 1 tablet by mouth twice a day Quantity: 180 Refills: 3 Ordered: 14-Aug-2021 David Hayward MD Start : 14-Aug-2021 ActiveStart: 05-05-2019 End: 58-20-3636rorv 1 tablet by mouth once dailyFurosemide 40 mg tablet Discontinued 40 MG PO Daily May 05, 2019 12:00am October 11, 2023 5:25pm take 1 tablet by mouth every twenty-four hoursFurosemide 20 MG 1 tablet Orally Once a day for 30 day(s) Not-Takinggabapentin 300 mg oral capsule (20 sources)Anti-epileptic AgentStart: 05-05-2019 End: 73-90-1614bizs 1 capsule by mouth three times dailyGabapentin 300 mg capsule Discontinued 300 MG PO Three times daily May 05, 2019 12:00am 2022 5:25pmhyaluronate (20 sources)Start: 95-96-3303Eih-One Aug, 3 mLInsulin Aspart U-100 (Novolog Flexpen U-100 Insulin) 100 unit/mL (3 mL) Insulin Pen (20 sources)Start: 10-26-2023 End: 70-00-3421tauuuk 1 dose by subcutaneous injection once at mealtimeInsulin Aspart U-100 (Novolog Flexpen U-100 Insulin) 100 unit/mL (3 mL) Insulin Pen Discontinued 1 sliding scale dose SUBCUT 3X/Day with meals and bedtime October 26, 2023 12:00am January 17, 2024 10:42amStart: 10-26-2023 End: 88-51-5355okrjaq 1 dose by subcutaneous injection once at mealtimeInsulin Aspart U-100 (Novolog Flexpen U-100 Insulin) 100 unit/mL (3 mL) Insulin Pen Discontinued 1 sliding scale dose SUBCUT 3X/Day with meals and bedtime October 26, 2023 1:00am January 17, 2024 11:42amStart: 57-36-9433hcxxsl 1 dose by subcutaneous injection once at mealtimeInsulin Aspart U-100 (Novolog Flexpen U-100 Insulin) 100 unit/mL (3 mL) Insulin Pen Active 1 sliding scale dose SUBCUT 3X/Day with meals and bedtime October 26, 2023 12:00am3 ml insulin aspart, human 100 unt/ml pen injector (12 sources)Insulin AnalogStart: 10-26-2023 End: 29-94-6520pmudgq 1 dose by subcutaneous injection once at mealtimeInsulin Aspart U-100 (Novolog Flexpen U-100 Insulin) 100 unit/mL (3 mL) Insulin Pen Discontinued 1 sliding scale dose SUBCUT 3X/Day with meals and bedtime October 26, 2023 1:00am January 17, 2024 11:42amNovoLOG FlexPen 100 UNIT/ML ACHS, ISS 1:50 Subcutaneous ActiveNovoLOG FlexPen 100 UNIT/ML as directed Subcutaneous Active3 ml insulin degludec 100 unt/ml pen injector (10 sources)Insulin AnalogStart: 04-09-2025 End: 48-84-0991lyieep 26 [IU] by subcutaneous injection once daily at bedtime, then inject 40 [IU] by subcutaneousinjection once dailyInsulin Degludec (Tresiba Flextouch U-100) 100 unit/mL (3 mL) insulin pen Discontinued 26 UNIT SUBCUT Daily at bedtime April 09, 2025 12:00am May 24, 2025 8:31am for Lantus. Titrate to 40 u once daily. Has written instructionsStart: 10-11-2023 End: 24-35-5363nwxmrq 10 [IU] by subcutaneous injection once dailyInsulin Degludec (Tresiba Flextouch U-100) 100 unit/mL (3 mL) Insulin Pen Discontinued 10 UNIT SUBCUT Daily October 11, 2023 1:00am October 26, 2023 3:57pmInsulin Degludec (Tresiba Flextouch U-100) 100 unit/mL (3 mL) Insulin Pen (20 sources)Start: 10-11-2023 End: 00-30-3616kbhrmt 10 [IU] by subcutaneous injection once dailyInsulin Degludec (Tresiba Flextouch U-100) 100 unit/mL (3 mL) Insulin Pen Discontinued 10 UNIT SUBCUT Daily October 11, 2023 1:00am October 26, 2023 3:57pmStart: 10-11-2023 End: 72-72-8539jfjsud 10 [IU] by subcutaneous injection once dailyInsulin Degludec (Tresiba Flextouch U-100) 100 unit/mL (3 mL) Insulin Pen Discontinued 10 UNIT SUBCUT Daily October 11, 2023 12:00am October 26, 2023 2:57pmStart: 97-18-9404tispev 10 [IU] by subcutaneous injection once dailyInsulin Degludec (Tresiba Flextouch U-100) 100 unit/mL (3 mL) Insulin Pen Active 10 UNIT SUBCUT Daily October 11, 2023 12:00am3 ml insulin glargine 100 unt/ml / lixisenatide 0.033 mg/ml pen injector (20 sources)Insulin AnalogStart: 04-09-2025 End: 29-15-1753Uwyvdwu Glargine-Lixisenatide (Soliqua 100/33) 100 unit-33 mcg/mL insulin pen Discontinued 26 UNIT SUBCUT Daily April 09, 2025 11:26am May 24, 2025 8:31am On Hold: change to Ozempic and LA insulinTitrate to 30 u glargine once daily, has written instructions. Dispense QS for 90 daysStart: 02-28-2025 End: 49-88-3110Spcstbw Glargine-Lixisenatide (Soliqua 100/33) 100 unit-33 mcg/mL insulin pen Discontinued 25 UNIT SUBCUT Daily February 28, 2025 11:20am April 09, 2025 11:28am Titrate to 30 u glargine once daily, has written instructions. Dispense QS for 90 daysStart: 12-08-2024 End: 28-13-7527Fzkgcsl Glargine-Lixisenatide (Soliqua 100/33) 100 unit-33 mcg/mL insulin pen Discontinued 23 UNIT SUBCUT Daily December 08, 2024 5:29pm February 28, 2025 11:23am Titrate to 30 u glargine once daily,has written instructions. Dispense QS for 90 daysStart: 12-06-2024 End: 59-73-0474Stsvonj Glargine-Lixisenatide (Soliqua 100/33) 100 unit-33 mcg/mL insulin pen Discontinued 22 UNIT SUBCUT Daily December 06, 2024 12:22pm December 08, 2024 5:29pm Titrate to 30 u glargine once daily, has written instructions. Dispense QS for 90 daysStart: 09-08-2024 End: 80-48-0489Lpvqjle Glargine-Lixisenatide (Soliqua 100/33) 100 unit-33 mcg/mL insulin pen Discontinued 23 UNIT SUBCUT Daily September 08, 2024 9:49am December 06, 2024 12:24pm Titrate to 30 u glargine once daily, has written instructions. Dispense QS for 90 daysStart: 09-08-2024 End: 82-60-4736Uuhryen Glargine-Lixisenatide (Soliqua 100/33) 100 unit-33 mcg/mL insulin pen Discontinued 24 UNIT SUBCUT Daily September 08, 2024 8:58am September 08, 2024 9:50am Titrate to 30 u glargine once daily, has written instructionsStart: 06-29-2024 End: 35-83-9192Wxjlhno Glargine-Lixisenatide (Soliqua 100/33) 100 unit-33 mcg/mL insulin pen Discontinued 17 UNIT SUBCUT Daily June 29, 2024 12:00am September 08, 2024 9:00am Titrate to 30 u glargine once daily, has written instructionsStart: 06-07-2024 End: 71-89-2671Tmyuqse Glargine-Lixisenatide (Soliqua 100/33) 100 unit-33 mcg/mL insulin pen Discontinued 23 UNIT SUBCUT Daily June 07, 2024 12:09pm June 29, 2024 5:14am Titrate to 30 u glargine once daily, has written instructions Start: 06-07-2024 End: 59-02-0861Xrmoovr Glargine-Lixisenatide (Soliqua 100/33) 100 unit-33 mcg/mL insulin pen Discontinued 21 UNIT SUBCUT Daily June 07, 2024 11:23am June 07, 2024 12:08pm Titrate to 30 u glargine once daily, has written instructions Start: 03-07-2024 End: 96-88-0060Lkdfbhc Glargine-Lixisenatide (Soliqua 100/33) 100 unit-33 mcg/mL insulin pen Discontinued 18 UNIT SUBCUT Daily 16.2 90 March 07, 2024 3:29pm June 07, 2024 11:24am Titrate to 30 u glargine once daily, has written instructionsStart: 01-17-2024 End: 66-15-5422Srzykhy Glargine-Lixisenatide (Soliqua 100/33) 100 unit-33 mcg/mL insulin pen Discontinued 16 UNIT SUBCUT Daily January 17, 2024 5:21pm March 07, 2024 11:17amStart: 01-17-2024 End: 59-95-3388Uehvhkv Glargine-Lixisenatide (Soliqua 100/33) 100 unit-33 mcg/mL insulin pen Discontinued 15 UNIT SUBCUT Daily January 17, 2024 12:00am January 17, 2024 5:22pmStart: 99-05-6473cvryne 15 [IU] by subcutaneous injection once dailySoliqua 100-33 UNT-MCG/ML inject 15 units Subcutaneous Daily for 90 days Dec, Activeinsulin glargine-lixisenatide (Soliqua 100/33) 100 unit-33 mcg/mL insulin pen Inject 17 Units underthe skin early in the morning.. Active3 ml insulin lispro 100 unt/ml pen injector (20 sources)Insulin AnalogStart: 01-17-2024 End: 59-99-9286qxhcma 1 dose by subcutaneous injection once before mealtime Insulin Lispro (Humalog Kwikpen Insulin) 100 unit/mL insulin pen Discontinued 1 sliding scale dose SUBCUT 3x/Day before meals & bedtime January 17, 2024 12:00am February 18, 2024 2:04pm On Hold: escalate other therapyStart: 10-26-2023 End: 32-20-6513BtvpMNY KwikPen Insulin 100 unit/mL injection Inject under the skin 3 times a day with meals. 0 10/26/2023 01/26/2024 Discontinued (Discontinued by another clinician)levoFLOXacin 500 mg oral tablet (20 sources)Quinolone AntimicrobialStart: 10-15-2023 End: 70-22-1634rqri 1 tablet by mouth once dailyLevofloxacin 500 mg tablet Discontinued 500 MG PO Daily 5 October 15, 2023 1:00am October 26, 2023 3:57pm x5D3 ml liraglutide 6 mg/ml pen injector (20 sources)GLP-1 Receptor AgonistStart: 10-11-2023 End: 91-04-3646Vdelehpmgzt (Victoza 2-Sterling) 0.6 mg/0.1 mL (18 mg/3 mL) Pen Injector Discontinued 18 MG SUBCUT DailyDece2022 1:00am October 26, 2023 3:57pmlisinopril 5 mg oral tablet (20 sources)Angiotensin Converting Enzyme InhibitorStart: 05-05-2019 End: 75-00-9230ruzh 1 tablet by mouth once dailyLisinopril 5 mg Tablet Discontinued 5 MG PO Daily October 11, 2023 1:00am October 12, 2023 5:27pm melatonin 5 mg oral tablet (20 sources)Start: 03-07-2024 End: 33-58-9257vfha 1 tablet by mouth once daily at bedtime as needed for sleep Melatonin 5 mg tablet Discontinued 5 MG PO Daily at bedtime as needed for sleep March 07, 2024 12:00am December 06, 2024 12:23pmStart: 10-26-2023 End: 23-03-4385iyqk 1 tablet by mouth once daily at bedtime as neededMelatonin 5 mg Tablet Discontinued 5 MG PO Daily at bedtime as needed for Insomnia October 26, 2023 1:00am February 18, 2024 2:05pmOmega 3 1000 MG (20 sources)take 1 capsule by mouth once daily as neededOmega 3 1000 MG 1 capsule Orally Once a day Not-Taking/PRNtake 1 capsule by mouth once dailyOmega 3 1000 MG 1 capsule Orally Once a day Activeomeprazole 20 mg delayed release oral capsule (20 sources)Proton Pump InhibitorStart: 10-11-2023 End: 51-06-4727rtgd 1 capsule by mouth once dailyOmeprazole 20 mg Capsule,Delayed Release(Dr/Ec) Discontinued 20 MG PO Daily October 11, 2023 1:00am October 26, 2023 3:57pmoxyCODONE hydrochloride 5 mg oral capsule (20 sources)Opioid AgonistStart: 05-16-2019 End: 77-09-7042cjjv 5-10 mg by mouth every six hours as needed for painOxycodone 5 mg capsule Discontinued 5 - 10 MG PO Q6H as needed for pain 60 May 16, 2019 October 11, 2023 5:25pmpantoprazole 40 mg delayed release oral tablet (20 sources)Proton Pump InhibitorStart: 10-26-2023 End: 24-42-3060hamh 1 tablet by mouth once dailyPantoprazole 40 mg Tablet,Delayed Release (Dr/Ec) Discontinued 40 MG PO Daily October 26, 2023 1:00am January 17, 2024 11:45ampioglitazone 15 mg oral tablet (20 sources)Peroxisome Proliferator Receptor alpha Agonist, Peroxisome Proliferator Receptor gamma Agonist, ThiazolidinedioneStart: 10-26-2023 End: 89-08-6508jmrn 3 tablets by mouth once dailyPioglitazone 15 mg Tablet Discontinued 45 MG PO DAILY@0800 30 October 26, 2023 1:00am January 17, 2024 11:46amStart: 10-26-2023 End: 79-56-6354kguq 45 mg by mouth once dailyPioglitazone Discontinued 45 MG PO DAILY@0800 30 30 October 26, 2023 1:00am January 17, 2024 11:46amStart: 11-10-2021 End: 10-22-3931jpch 1 tablet by mouth once dailyPioglitazone HCl - 30 MG Oral Tablet TAKE 1 TABLET BY MOUTH EVERY DAY Quantity: 90 Refills: 0 Ordered: 03-Dec-2021 DO Start : 10-Nov-2021 Activetake 1 tablet by mouth every twenty-four hoursPioglitazone HCl 15 MG 1 tablet Orally Once a day Activetake 1 tablet by mouth every twenty-four hoursPioglitazone HCl 45 MG 1 tablet Orally Once a day for 90 days Activepotassium chloride 10 meq extended release oral tablet (20 sources)Start: 10-26-2023 End: 65-28-7775Icpvashfp Chloride (Klor-Con 10) 10 mEq tablet extended release Discontinued 10 MEQ PO Daily 90 90 June 05, 2024 2:19pm June 30, 2024 11:13amStart: 11-10-2021 End: 94-05-4070Vqpqwkhxk Chloride (Klor-Con M10) 10 mEq tablet,ER particles/crystals Discontinued 10 MEQ PO Daily October 11, 2023 1:00am October 26, 2023 3:57pmStart: 05-05-2019 End: 85-68-7022iifn 1 tablet by mouth once dailyPotassium Chloride 10 mEq tablet extended release Discontinued 10 MEQ PO Daily May 05, 2019 12:00am October 11, 2023 5:25pmtake 1 tablet by mouth every twelve hoursPotassium Chloride Snow ER 10 MEQ 1 tablet with food Orally Twice a day ActivepredniSONE 10 mg oral tablet (20 sources)Start: 05-16-2019 End: 74-48-4911Lqnkhltbtz 10 mg tablets,dose pack Discontinued 1 dose pk PO per package directions May 16, 2019 12:00am October 11, 2023 5:25pm take 4 tabs for 3 days then take 3 tabs for 3 days then take 2 tabs for 3 days then take 1 tab for 3 daysStart: 05-16-2019 End: 56-22-7937Uliixtkusx Discontinued 1 dose pk PO per package directions May 16, 2019 12:00am October 5:25pm take 4 tabs for 3 days then take 3 tabs for 3 days then take 2 tabs for 3 days then take 1 tab for 3 daysStart: 05-16-2019 End: 29-54-1133Slenfyqqho Discontinued 1 dose pk PO per package directions May 15, 2019 11:00pm October 4:25pm take 4 tabs for 3 days then take 3 tabs for 3 days then take 2 tabs for 3 days then take 1 tab for 3 daysStart: 71-37-6305Tdqnbgyweu Active 1 dose pk PO per package directions May 16, 2019 12:00am take 4 tabs for 3 days then take 3 tabs for 3 days then take 2 tabs for 3 days then take 1 tab for 3 daysStart: 13-18-5948Wvkxsicrpt Active 1 dose pk PO per package directions May 15, 2019 11:00pm take 4 tabs for 3 days then take 3 tabs for 3 days then take 2 tabs for 3 days then take 1 tab for 3 dayspredniSONE (Deltasone) 20 MG tablet Unyhuz23 hr propranolol hydrochloride 160 mg extended release oral capsule (20 sources)beta-Adrenergic BlockerStart: 03-23-2024 End: 51-48-0282wwmr 1 capsule by mouth once dailyPropranolol 160 mg capsule,extended release 24 hr Discontinued 0 .ROUTE .COMPLEX 90 March 23, 2024 9:51am June 30, 2024 11:13am TAKE 1 CAPSULE BY MOUTH EVERY DAYStart: 10-26-2023 End: 01-43-8054ytrk 1 capsule by mouth once dailyPropranolol 80 mg capsule,extended release 24hr Discontinued 80 MG PO Daily January 17, 2024 11:46am March 23, 2024 9:28amStart: 10-26-2023 End: 40-88-8202bsaw 160 mg by mouth once dailyPropranolol Discontinued 160 MG PO Daily 60 October 26, 2023 1:00am January 17, 2024 11:47amStart: 05-05-2019 End: 96-31-7172lcju 1 capsule by mouth once dailyPropranolol 160 mg capsule,extended release 24 hr Discontinued 160 MG PO Daily March 23, 2024 12:00am March 23, 2024 9:51amPropranolol HCl Activerosuvastatin calcium 20 mg oral tablet (14 sources)HMG-CoA Reductase InhibitorStart: 07-11-2023 End: 91-81-8828xufa 1 tablet by mouth once dailyrosuvastatin (Crestor) 20 mg tablet Take 1 tablet (20 mg) by mouth once daily. 0 07/11/2023 01/26/2024 Discontinued (Discontinued by another clinician)Start: 01-14-2023 End: 90-12-7169dxgu 1 tablet by mouth once dailyRosuvastatin Calcium 20 MG Oral Tablet TAKE 1 TABLET DAILY. Quantity: 90 Refills: 3 Ordered: 14-Jan-2023 David Hayward MD Start : 14-Jan-2023 Active new startRosuvastatin Calcium Not-Taking/PRNRosuvastatin Calcium ActiveSITagliptin 100 mg oral tablet (20 sources)Dipeptidyl Peptidase 4 InhibitorStart: 10-11-2023 End: 06-43-4369ujnw 1 tablet by mouth once dailySitagliptin Phosphate (Januvia) 100 mg Tablet Discontinued 100 MG PO Daily October 11, 2023 1:00am October 26, 2023 3:57pmsodium pertechnetate Tc-99m (Technelite) injection 25 millicurie (1 source)Start: 10-19-2024 End: millicurie, intravenous, Once in imaging, Starting on [facility] 10/19/24 at 1522, For 1 dose, Administer immediately and up to 2 hours prior to imaging unless otherwise indicatedspironolactone 25 mg oral tablet (20 sources)Aldosterone AntagonistStart: 11-10-2021 End: 22-64-9416uszl 1 tablet by mouth twice dailySpironolactone 25 mg tablet Discontinued 25 MG PO Twice daily January 17, 2024 12:00am February 18, 2024 2:05pmsulfamethoxazole 800 mg / trimethoprim 160 mg oral tablet (20 sources)Dihydrofolate Reductase Inhibitor Antibacterial, Sulfonamide AntimicrobialStart: 05-16-2019 End: 36-06-8561revi 1 tablet by mouth every twelve hoursSulfamethoxazole- Trimethoprim (Bactrim Ds) 800-160 mg Tablet Discontinued 1 TAB PO Q12H May 16, 2019 12:00am October 11, 2023 5:25pmticagrelor 90 mg oral tablet (20 sources)Start: 06-30-2024 End: 38-48-1863nycf 1 tablet by mouth twice dailyTicagrelor (Brilinta) 90 mg Tablet Discontinued 90 MG PO Twice daily 180 90 June 30, 2024 12:00am September 04, 2024 1:39pmtiZANidine 2 mg oral tablet (10 sources)Central alpha-2 Adrenergic Agonisttake 1 tablet by mouth every eight hourstiZANidine HCl 2 MG 1 tablet as needed Orally Three times a day Not-Taking tobramycin 3 mg/ml ophthalmic solution (1 source)Aminoglycoside AntibacterialStart: 09-27-2023 End: 92-84-6066tjip 1 drop(s) into the eye(s) every six hourstobramycin (Tobrex) 0.3 % ophthalmic solution INSTILL 1 DROP INTO AFFECTED EYE EVERY 6 HOURS FOR 7 DAYS 0 09/27/2023 01/26/2024 Discontinued (Discontinued by another clinician) traMADol hydrochloride 50 mg oral tablet (20 sources)Opioid AgonistStart: 08-18-2021 End: 99-67-0338vktg 1 tablet by mouth every eight hours as neededtraMADol (Ultram) 50 mg tablet Take 1 tablet (50 mg) by mouth every 8 hours if needed. 0 Discontinued (Discontinued by another clinician)Start: 79-79-6176rjtQQUtz HCl - 50 MG Oral Tablet Quantity: 60 Refills: 0 Ordered: 18-Aug-2021 DO Start : 18-Aug-2021 ActiveStart: 05-05-2019 End: 26-74-3152ojyh 1 tablet by mouth once dailyTramadol 50 mg Tablet Discontinued 50 MG PO Daily May 05, 2019 12:00am May 16, 2019 7:34am Triamcinolone (20 sources)CorticosteroidStart: 80-15-7174Ztpvtdy -40 mg May, 40 mgzinc gluconate 50 mg oral tablet (20 sources)Start: 11-03-2023 End: 24-99-8685mqmz 1 tablet by mouth once dailyZinc Gluconate 50 mg Tablet Discontinued 50 MG PO Daily November 03, 2023 1:00am February 18, 2024 2:06pmzolpidem tartrate 5 mg oral tablet (20 sources)gamma-Aminobutyric Acid-ergic AgonistStart: 06-29-2024 End: 99-93-8078voii 2 tablets by mouth once daily at bedtime as neededZolpidem 5 mg tablet Discontinued 10 MG PO Daily at bedtime as needed for insomnia June 29, 2024 12:00am September 04, 2024 1:40pmStart: 06-29-2024 End: 76-64-2859tlcl 10 mg by mouth once daily at bedtimeZolpidem Discontinued 10 MG PO Daily at bedtime June 29, 2024 12:00am September 04, 2024 1:40pm Start: 03-13-2024 End: 74-79-5883oqkz 1 tablet by mouth once daily at bedtime as neededZolpidem 5 mg tablet Discontinued 5 MG PO Daily at bedtime as needed for insomnia 90 90 March 13, 2024 12:00am June 29, 2024 5:14amStart: 10-11-2023 End: 32-80-8319ypqd 2 tablets by mouth once daily at bedtimeZolpidem 5 mg Tablet Discontinued 10 MG PO Daily at bedtime October 11, 2023 1:00am October 26, 2023 3:57pmStart: 10-11-2023 End: 48-20-5855pwey 10 mg by mouth once daily at bedtimeZolpidem Discontinued 10 MG PO Daily at bedtime October 11, 2023 1:00am October 26, 2023 3:57pm Start: 05-05-2019 End: 01-43-5299vlib 1 tablet by mouth once daily at bedtimeZolpidem 10 mg tablet Discontinued 10 MG PO Daily at bedtime March 07, 2024 11:15am March 13, 2024 8:35am Problems Active Problems Problem ClassificationProblemDateDocumented DateEpisodic/ChronicAcute myocardial infarction (18 sources)Acute myocardial infarction of anterior wall; Translations: [ST elevation (STEMI) myocardial infarction involving other coronary artery of anterior wall]Onset: [id number]r/social admission (20 sources)Other reduced mobility; Translations: [Impaired mobility and activities of daily living]94-42-3345TjptnbfkPalnqe of breast (20 sources)Personal history of primary malignant neoplasm of breast; Translations: [Personal history of malignant neoplasm of breast]Onset: 746685-95-9185EoujoushAzhsom; other and unspecified primary (20 sources)H/O: malignant neoplasm; Translations: [Personal history of malignant neoplasm, unspecified]EpisodicCancer; other and unspecified primary (1 source)Personal history of malignant neoplasm, unspecified; Translations: [History of cancer]EpisodicCataract (4 sources)Bilateral age-related nuclear cataracts; Translations: [Age-related nuclear cataract, bilateral]Onset: 836041-57-3839CtbeyuaTjfwlky ulcer of skin (8 sources)Pressure ulcer of unspecified site, stage 1; Translations: [Healing decubitus ulcer, stage 1]ChronicCongestive heart failure; nonhypertensive (3 sources)Congestive heart failure stage C due to ischemic cardiomyopathy; Translations: [Heart failure, unspecified]Onset: hronic Coronary atherosclerosis and other heart disease (20 sources)Atherosclerotic heart disease of [place] coronary artery without angina pectoris; Translations: [Coronary arteriosclerosis]Onset: 09-25-2013 21-24-1226OhxcwcjTsphvvaj mellitus with complications (20 sources)Type 2 diabetes mellitus with hyperglycemia; Translations: [Type 2 diabetes mellitus]Onset: 46-46-5861ZbpamgyQaufjfuo mellitus without complication (20 sources)Type 2 diabetes mellitus without complications; Translations: [Diabetes mellitus]Onset: 773350-95-5933LtyevzbGcrzyijuq of lipid metabolism (20 sources)Hyperlipidemia; Translations: [Other and unspecified hyperlipidemia] Onset: 201802-67-2467VsrzarcI Codes: Fall (20 sources)Fall on same level from slipping, tripping and stumbling with subsequent striking against unspecified object, initial encounter; Translations: [Fall]Onset: 478053-58-4502OfprctyjHzstzbxoj hypertension (20 sources)Essential (primary) hypertension; Translations: [Benign essential hypertension]Onset: 54-13-0394FuxbmunBkadn and electrolyte disorders (15 sources)Hypokalemia; Translations: [Hypokalemia]Onset: 64-73-2676Ilnbdifs Fracture of neck of femur (hip) (20 sources)Closed fracture of femur, subcapital; Translations: [Unspecified intracapsular fracture of right femur, initial encounter for closed fracture] 42-88-0462PgwtdqooWwzcnzoj of upper limb (8 sources)Nondisplaced fracture of neck of left radius, initial encounter for closed fracture; Translations: [Displaced fracture of distal phalanx of left index finger, initial encounter for closed fracture]Onset: 43-33-5815Pdlqkdxa Genitourinary symptoms and ill-defined conditions (12 sources)Frequency of micturition; Translations: [Dysuria]Onset: 07-01-2015 EpisodicHeadache; including migraine (2 sources)Migraine with aura; Translations: [Migraine with aura, without mention of intractable migraine without mention of status migrainosus]Onset: 12-31-1304DduocjuUedjctpfmkqkc and screening for infectious disease (20 sources)Patient encounter status; Translations: [Other specified vaccination]Onset: 12-22-2022 Resolved: 528684-32-6706VvzxjkmuWnuldlxdqx disorders (1 source)Hormone replacement therapy; Translations: [HORMONE REPLACEMENT THERAPY]Onset: 96-10-5127EtrlbilaAdvaxgf (20 sources)Candidiasis; Translations: [Candidiasis of other urogenital sites] Onset: 447580-83-7224LsdkgdhcZvkxavxtuao deficiencies (13 sources)Vitamin D deficiency; Translations: [Vitamin D deficiency, unspecified]ChronicOsteoarthritis (20 sources)Arthritis of left knee; Translations: [Unilateral primary osteoarthritis, left knee]ChronicOther acquired deformities (2 sources)Acquired postural kyphosis; Translations: [Unspecified kyphosis, site unspecified]Onset: 96-19-3243MxxxrdwSdzfj aftercare (2 sources)residential (current) use of aspirin; Translations: [[facility] (CURRENT) USE OF ASPIRIN]Onset: 05-59-8962PtjzahhmLpuuo aftercare (1 source)Other [place] [facility] (current) drug therapy; Translations: [OTH 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 TEST ENGINEER CURRENT DRUG THERAPY]Onset: 43-38-2932QsabvyihFisgt aftercare (2 sources)residential (current) use of insulin; Translations: [CHEMICAL TEST ENGINEER CURRENT USE OF INSULIN]Onset: 49-92-2853CwcfnlqfIcjkx aftercare (4 sources)Long-term current use of insulin; Translations: [residential (current) use of insulin]45-53-5272ZdwzabivXnrlf circulatory disease (1 source)Other specified symptoms and signs involving the circulatory and respiratory systemsEpisodicOther connective tissue disease (11 sources)History of hemiarthroplasty of right hip; Translations: [Presence of right artificial hip joint]86-43-9913ZzsjdgkRemjw connective tissue disease (6 sources)Presence of right artificial hip joint; Translations: [Hip joint replacement]ChronicOther connective tissue disease (17 sources)History of repair of hip joint; Translations: [Presence of right artificial hip joint]40-47-4148AlopjlrRgpoo diseases of bladder and urethra (2 sources)Overactive bladder; Translations: [Overactive bladder]ChronicOther ear and sense organ disorders (2 sources)Otitis externa; Translations: [Unspecified otitis externa, unspecified ear]Onset: 39-50-0573LjqijcgTgocg injuries and conditions due to external causes (1 source)Other specified injuries of head, initial encounter; Translations: [OTH SPEC INJURIES HEAD INITIAL ENC]Onset: 79-00-2110GtlfigtqZyiaz injuries and conditions due to external causes (2 sources)History of fall; Translations: [History of falling]EpisodicOther lower respiratory disease (20 sources)Lung mass; Translations: [Other nonspecific abnormal finding of lung field]77-15-1499KagvrlrvUertb lower respiratory disease (2 sources)Dyspnea on exertion; Translations: [Other forms of dyspnea]12-20-2024 EpisodicOther nervous system disorders (1 source)Metabolic encephalopathy; Translations: [METABOLIC ENCEPHALOPATHY] Onset: 68-11-9828MaqiylqFgavp nervous system disorders (20 sources)Chronic pain; Translations: [Other chronic pain]ChronicOther nervous system disorders (20 sources)Postoperative pain ; Translations: [Other acute postprocedural pain] 78-19-0533JnowkuqpGmdzb nervous system disorders (7 sources)Other acute postprocedural pain; Translations: [Other acute postoperative pain]89-10-9861FyarumjjPiwcl non-traumatic joint disorders (3 sources)Pain in left elbow; Translations: [PAIN IN LEFT ELBOW]Onset: 42-78-1816MdnpykedNhadl non-traumatic joint disorders (4 sources)Arthralgia of the pelvic region and thigh; Translations: [Pain in left hip]Onset: 25-97-3409ZlfzjyvmMbvac non-traumatic joint disorders (2 sources)Arthralgia of the lower leg; Translations: [Pain in left knee] EpisodicOther nutritional; endocrine; and metabolic disorders (1 source)Body mass index 25-29 - overweight; Translations: [Body Mass Index 28.0-28.9, adult]EpisodicOther nutritional; endocrine; and metabolic disorders (1 source)Overweight; Translations: [Overweight]EpisodicOther nutritional; endocrine; and metabolic disorders (1 source)Body mass index (BMI) 25.0-25.9, adultEpisodicOther nutritional; endocrine; and metabolic disorders (20 sources)Body mass index (BMI) 26.0-26.9, adult; Translations: [Body Mass Index 26.0-26.9, adult]Onset: 90-27-0189YnnbptwsHhuii nutritional; endocrine; and metabolic disorders (20 sources)Overweight in adulthood with body mass index of 25 or more but less than 30; Translations: [Body mass index (BMI) 26.0-26.9, adult]Onset: 12-20-2024 27-23-3935UfafcqpnCaxkh nutritional; endocrine; and metabolic disorders (2 sources)Body mass index (BMI) 27.0-27.9, adult; Translations: [Body mass index (BMI) 27.0-27.9, adult]Onset: 35-67-3241KjpiancaJoptn upper respiratory infections (2 sources)Chronic maxillary sinusitis; Translations: [Chronic maxillary sinusitis]Onset: 03-52-2772ZachyyhXmltc upper respiratory infections (5 sources)Acute maxillary sinusitis; Translations: [Acute maxillary sinusitis, unspecified]Onset: 13-08-0160BfprqdykWyqq-; endo-; and myocarditis; cardiomyopathy (except that caused by tuberculosis or sexually transmitted disease) (1 source)Cardiomyopathy; Translations: [Other cardiomyopathies]02-26-2025 ChronicResidual codes; unclassified (2 sources)Altered mental status, unspecified; Translations: [ALTERED MENTAL STATUS, UNSPECIFIED]Onset: 29-37-8805HjwevavuTeoimymh codes; unclassified (3 sources)Swelling - edema - symptom; Translations: [Edema]EpisodicResidual codes; unclassified (20 sources)Edema; Translations: [Edema]Onset: 926093-77-8481Xcqitxqc Residual codes; unclassified (20 sources)History of left mastectomy; Translations: [Acquired absence of left breast and nipple]EpisodicResidual codes; unclassified (20 sources)Insomnia; Translations: [Insomnia, unspecified]02-16-5561Cjbocelv Residual codes; unclassified (7 sources)Insomnia, unspecified; Translations: [Insomnia, unspecified]Episodic Residual codes; unclassified (4 sources)Localized edema; Translations: [Localized edema]Onset: 11-02-2023 EpisodicResidual codes; unclassified (2 sources)Family history of breast cancer; Translations: [Family history of malignant neoplasm of breast]EpisodicResidual codes; unclassified (2 sources)Requires influenza virus vaccination; Translations: [Need for prophylactic vaccination and inoculation, Influenza]EpisodicResidual codes; unclassified (2 sources)Family history of diabetes mellitus; Translations: [Family history of diabetes mellitus]EpisodicResidual codes; unclassified (1 source)History of cardiac catheterization; Translations: [Other specified postprocedural states]70-86-3742EpwhnmraQshrtcvu codes; unclassified (4 sources)Edema, unspecified; Translations: [Edema, unspecified]Onset: 94-81-2650KjxmjcelWfupbpkgym (except in labor) (2 sources)Septicemia (except in labor); Translations: [Sepsis, unspecified organism]Onset: 00-57-0409Tnvemkdiivb; intervertebral disc disorders; other back problems (20 sources)Degeneration of intervertebral disc; Translations: [Other intervertebral disc degeneration, lumbar region]ChronicSpondylosis; intervertebral disc disorders; other back problems (20 sources)Lumbago with sciatica, unspecified side; Translations: [Sciatica] Onset: 932201-93-7765ZtezvdmgHbxikjttzuj injury; contusion (5 sources)Contusion of other part of head, initial encounter; Translations: [Abrasion of other part of head, initial encounter]Onset: 95-20-3321Nebfmdqr Thyroid disorders (20 sources)Hypothyroidism, unspecified; Translations: [Hypothyroidism]Onset: 85-36-5501UtponirUtsrsukjnolt (1 source)C/O ALTERED MENTAL STATUSOnset: 93-04-4870Qglcpvs tract infections (7 sources)Urinary tract infection, site not specified; Translations: [Urinary tract infectious disease]Onset: 19-82-0560HkzhoucsTrjwr infection (20 sources)Herpes zoster with nervous system complication; Translations: [Herpes zoster with unspecified nervous system complication]Onset: 04-01-2017 57-89-8687Klplofpj Past or Other Problems Problem ClassificationProblemDateDocumented DateEpisodic/ChronicAcute bronchitis (2 sources)Acute bronchitis; Translations: [Acute bronchitis, unspecified]Onset: 10-78-6479JalvrhipTngoqcvm reactions (6 sources)Allergy status to other drugs, medicaments and biological substances status; Translations: [Allergystatus to penicillin]Onset: 56-85-6918Yirihmhj Bacterial infection; unspecified site (2 sources)Bacterial infectious disease; Translations: [Bacterial infection, unspecified, in conditions classified elsewhere and of unspecified site]Onset: 68-05-2940WwkidbuuLqlkxexi atherosclerosis and other heart disease (3 sources)Presence of coronary angioplasty implant and graft; Translations: [Coronary angioplasty status]Onset: 74-88-9916OnkulmllJfaeqim and fatigue (2 sources)Asthenia; Translations: [Weakness]Onset: 18-32-7741Wrzwiqcg Nonmalignant breast conditions (4 sources)Discharge from nipple; Translations: [Nipple discharge]Onset: 34-51-1488LvvgqnqzHedolgiinwm chest pain (3 sources)Chest pain; Translations: [Chest pain, unspecified]Onset: 05-23-2015 EpisodicOther connective tissue disease (2 sources)Muscle pain; Translations: [MYALGIA, UNSPECIFIED SITE]Onset: 90-11-4388YdydrxquEapvm ear and sense organ disorders (2 sources)Otalgia; Translations: [Otalgia, unspecified ear]Onset: 05-06-2015 EpisodicOther lower respiratory disease (20 sources)Other nonspecific abnormal finding of lung field; Translations: [Swelling, mass, or lump in chest]Onset: 698081-27-6728NtzvxffpGfaff lower respiratory disease (2 sources)Other forms of dyspnea; Translations: [Other forms of dyspnea]Onset: 12-40-2571TsgsrqlwXbihe skin disorders (2 sources)Inflamed seborrheic keratosis; Translations: [Inflamed seborrheic keratosis]Onset: 56-80-6364TcqbwxolLdtgj skin disorders (2 sources)Disorder of left lower extremity; Translations: [Localized swelling, mass and lump, left lower limb]Onset: 657137-22-5431ArufwekkJwgvz skin disorders (2 sources)Localized swelling, mass and lump, left lower limb; Translations: [Localized swelling, mass and lump, left lower limb]Onset: 53-75-8045Dwdtephf Residual codes; unclassified (15 sources)Body mass index 20-24 - normal; Translations: [Body Mass Index between 19-24, adult]Onset: 090916-11-7585UyflybudNgjztega codes; unclassified (20 sources)Other specified postprocedural states; Translations: [Other postprocedural status]Onset: 620500-82-0781LtjxujkmMbsgyfkm codes; unclassified (12 sources)Never smoked tobacco; Translations: [Other specified health status] Onset: 049976-90-4888OepbtgweGbthsgvw codes; unclassified (2 sources)Body mass index (BMI) 24.0-24.9, adult; Translations: [Body mass index (BMI) 24.0-24.9, adult]Onset: 99-04-5491FyogekemSdmmcdng codes; unclassified (2 sources)Other specified health status; Translations: [Other specified health status]Onset: 36-66-1602MjdbghraAmtusrf (2 sources)Syncope and collapse; Translations: [Syncope and collapse]Onset: 17-85-2890UtoctmsjKwognpmjefjr (5 sources)Never smoked tobacco; Translations: [Never a smoker]Unclassified (10 sources)Onset: 01-26-2024 Resolved: 193756-29-4292Duroyjofqycg (1 source)Disorder of left lower cbnuduqii65-46-9467 Results Test NameValueInterpretationReference RangeFacilityCreatinine [Mass/volume] in UrineOrdered By: Norma Diaz on 01-90-4332Vzuqznwwae (U) [Mass/Vol]46.00 mg/dLMetrohealth Cleveland Heights Medical CenterComment on above:No reference range establishedMicroAlb Creat Ratio,Uon 68-51-9917Orjhnzwtyn, Urine (Random)46.00 mg/dLNormalThe [facility] Physician GroupComment on above:Result Comment: No reference range establishedPerformed By: #### URMACRERAT #### [place] [address] USAMicroalbumin/Creatinine Ratio19.6 mg/gNormal0.0-30.0The [facility] Physician GroupComment on above:Result Comment: 30-300 mg/g indicates an increased risk for diabetic nephropathy. Greater than 300 mg/g is consistent with clinical nephropathy. (Am. J. Kidney Disease 1995, 25:107) PERFORMED BY: [place] [address] PATHOLOGIST COPYING MACHINE REPAIRER MITZI KEANE M.D.Performed By: #### URMACRERAT #### [facility] [address] [place], [place] [address] USAMicroalbumin [Mass/volume] in UrineOrdered By: Norma Diaz on 80-39-4585Zwbfkmo DL <= 20 mg/L (U) [Mass/Vol]0.9 mg/dL0.0-1.8 [facility] Medical CenterComment on above:Performed By: #### URMACRERAT #### [facility] [address] [place] [address] USANo Panel InformationOrdered By: Norma Diaz on 01-28-9040Rzmdgrn Ljkbavg529PblxazmqpMetrohealth Cleveland Heights Medical CenterUrine microalbumin/creatinine mass ratioOrdered By: Norma Diaz on 05-24-2025 Albumin/Creatinine DL <= 20 mg/L (U) [Mass ratio]19.6 mg/g0.0-30.0[facility] Medical CenterComment on above:30-300 mg/g indicates an increased risk for diabetic nephropathy. Greater than 300 mg/g is consistent with clinical nephropathy. (Am. J. Kidney Disease 1995, 25:107)Estimated glomerular filtration rate (GFR) non- AmericanOrdered By: José Antonio Hills on 00-60-7115PPT/1.73 sq M.predicted among non-blacks MDRD (S/P/Bld) [Vol rate/Area]52 mL/min/{1.73_m2} Low>=60 mL/min/1.73m 2FKindred HealthcareLaboratory - Chemistry and Chemistry - challengeOrdered By: José Antonio Hills on 34-95-1111Mvxjfhf [Mass/Vol] 9.6 mg/dL8.5-10.1FKindred HealthcareChloride [Moles/Vol]98 mmol/L 98-107[facility] Medical CenterCO2 [Moles/Vol]31.8 mmol/L21.0-32.0 [facility] CenterCreatinine [Mass/Vol]1.01 mg/dL0.55-1.02 [facility] CenterGFR/1.73 sq M.predicted MDRD (S/P/Bld) [Vol rate/Area]mL/min/{1.73_m2}>=60 mL/min/1.73m [address] [place] [address] Glucose [Mass/Vol]306 mg/tLWyzr06-402JufdzfhqwMetrohealth Cleveland Heights Medical Center Natriuretic peptide B (Bld) [Mass/Vol]169.0 pg/mL<=1800.0[facility] Medical CenterPotassium [Moles/Vol]4.4 mmol/L3.5-5.1FBarney Children's Medical Centerodium [Moles/Vol]134 mmol/SEgd646-629DbnarsmwhMetrohealth [facility] Center Urea nitrogen [Mass/Vol]18.0 mg/dL7.0-18.0[facility] Medical CenterUrea nitrogen/Creatinine [Mass ratio]17.8 mg/mgSt. Rita's Hospitalerum or plasma anion gap determinationOrdered By: José Antonio Hills on 19-08-8909Rmfmh gap [Moles/Vol]8.6 mmol/Doctors HospitalUS arterial pvr rest Nelli 88-37-5132BY arterial pvr rest [facility] [address] Ultrasound Report Signed Patient: Heidi Palmer MR#: [id number] 13 : 1940 Acct:[id number] Age/Sex: 85 / F ADM Date: 05/16/25 Loc: [facility]: [facility] Attending [facility]: José Antonio Hills APRN Ordering [...] Dale M.D. 05/16/2025 4:26 PM Dictation Location: [facility]-04 Tech: Afua Benedict Transcribed By: CHEKO 05/16/251625 Dictated By: Jamison Dale MD 05/16/251624 Signed By: 05/16/25 162[facility] Physician GroupTRANSTHORACIC ECHO (TTE) COMPLETE 65-57-8370YKASRUPSXTWML ECHO (TTE) [address], [address] [place] [address] TRANSTHORACIC ECHOCARDIOGRAM REPORT Patient Name: HEIDI PALMER Reading Physician: [id number] Mukesh Cardozo MD Study Date: 05/02/2025 Ordering Provider: [id number] JOSÉ ANTONIO HILLS MRN/PID: [id number] Fellow: Nurse: Date of /Age: 3 1940 Emergency Response Technician: Zuri jones RDCS, RVT Gender Assigned at F Additional Staff: : Height: 165.10 cm Admit Date: Weight: 82.10 kg Admission Status: Outpatient BSA / BMI: 1.90 m2 / 30.12 Department Location: [facility] Heart kg/m2 [place] Blood Pressure: 94 /58 mmHg Study Type: TRANSTHORACIC ECHO (TTE) COMPLETE Diagnosis/ICD: Ischemic cardiomyopathy-I25.5; Localized edema-R60.0 Indication: CAD, CA and PTCA-06/2024 CPT Codes: Echo Complete w Full Doppler-32467 Study Detail: The following Echo studies were performed: 2D, M-Mode, Doppler and color flow. PHYSICIAN INTERPRETATION: Left Ventricle: The left ventricular systolic function is normal with a visually estimated ejectionfraction of 60-65%. There are no regional wall [...] aortic valve area by VTI is 2.90 cm??? with a peak velocity of 1.64 m/s. [...] normal. There is no indication of pulmonic valveregurgitation. Pericardium: No pericardial effusion noted. Aorta: The [...] AoV Mean P.9 mmHg (1.7-11.5mmHg) LVOT Max Manuel: 1.11 m/s (<=1.1m/s) AoV VTI: 38.89 cm [...] RV Mid 2.40 cm RV Major 5.3 (more content not included)...Berger HospitalNo Panel Informationon 68-79-1125Kpkkdkp Kqlvzbt534SuoogbcpkMetrohealth Cleveland Heights Medical CenterHbA1c HPLC (Bld) [Mass fraction]on 51-85-1901FhQ8n (Bld) [Mass fraction]Hemoglobin A1c/Hemoglobin.total in Blood by [facility] Medical CenterHbA1c (Bld) [Mass fraction]11 %[facility] CenterNo Panel Informationon 22-10-5243Vbdnonh Aucrwpj578DzhaeigqhMetrohealth Cleveland Heights Medical CenterEstimated glomerular filtration rate (GFR) non- Americanon 81-74-4451ASL/1.73 sq M.predicted among non-blacks MDRD (S/P/Bld) [Vol rate/Area]Estimated glomerular filtration rate (GFR) non- AmericanLow>=60 mL/min/1.73m 2FKindred HealthcareLaboratory - Chemistry and Chemistry - challengeon 04-43-4207Zdqndkh [Mass/Vol]10.4 mg/dLHigh8.5-10.1 [facility] Medical CenterChloride [Moles/Vol]96 mmol/GKja96-176KofiojluoMetrohealth Cleveland Heights Medical CenterCO2 [Moles/Vol]28.2 mmol/L21.0-32.0[facility] Medical CenterCreatinine [Mass/Vol]1.02 mg/dL0.55-1.02[facility] Medical CenterGFR/1.73 sq M.predicted MDRD (S/P/Bld) [Vol rate/Area]mL/min/{1.73_m2} >=60 mL/min/1.73m [address] [place], [place] [address]Glucose [Mass/Vol]296 mg/dL Jyae49-577DtnedijrfMetrohealth Cleveland Heights Medical CenterPotassium [Moles/Vol]4.7 mmol/L 3.5-5.1FBarney Children's Medical Centerodium [Moles/Vol]134 mmol/HGgt511-130 [facility] Medical CenterUrea nitrogen [Mass/Vol]17.0 mg/dL7.0-18.0 [facility] Medical CenterUrea nitrogen/Creatinine [Mass ratio]16.7 mg/mg St. Rita's Hospitalerum or plasma anion gap determinationon 53-93-8646Kfpkg gap [Moles/Vol]Serum or plasma anion gap determinationMetrohealth Cleveland Heights Medical CenterUS venous duplex LE LTon 52-91-4376RP venous duplex LE [address] [address] Ultrasound Report Signed Patient: Heidi Palmer MR#: [id number] [birth year] : 1940 Acct:[id number] Age/Sex: 84 / F ADM Date: 01/22/25 Loc: Room: Type: [facility] Attending Dr: José Antonio Hills APRN Ordering [...] Jamison Dale M.D.01/24/2025 7:06 AM Dictation Location: [place] [address] Tech: Afua Benedict Transcribed By: CHEKO 01/24/25 0706 Dictated By: Jamison Dale MD 01/24/25 07 Signed By: 01/24/[address] [place] [address] Physician [facility]asper [facility] HospitalCholesterol in LDL Calc [Mass/Vol]on 11-05-5913Mknqlebctub in LDL [Mass/Vol]Cholesterol in LDL [Mass/volume] in Serum or Plasma by calculationMetrohealth Cleveland Heights Medical Center Comment on above:<100 mg/dl ILEGQMT109-464 mg/dl NEAR OR ABOVE TWDQBBZ827-214 mg/dl BORDERLINE XCGO935-463 mg/dl HIGH>190 mg/dl VERY HIGHCholesterol in VLDL Calc [Mass/Vol]on 67-39-6964Kquaeppnscb in VLDL [Mass/Vol]Cholesterol in VLDL [Mass/volume] in Serum or Plasma by calculationMetrohealth Cleveland Heights Medical Center Estimated glomerular filtration rate (GFR) non- Americanon 01-01-2025 GFR/1.73 sq M.predicted among non-blacks MDRD (S/P/Bld) [Vol rate/Area]Estimated glomerular filtration rate (GFR) non- AmericanLow>=60 mL/min/1.73m 2 [facility] Medical CenterLaboratory - Chemistry and Chemistry - challengeon 60-97-1164Ldioick [Mass/Vol]9.8 mg/dL8.5-10.1FKindred HealthcareChloride [Moles/Vol]99 mmol/D92-991CapsivkyrMetrohealth Cleveland Heights Medical CenterCholesterol [Mass/Vol]179 mg/dL<=200[facility] Cholesterol in HDL [Mass/Vol]57 mg/bZ88-79OfrgjqdatMetrohealth Cleveland Heights Medical Center Comment on above:> or =60 mg/dl - LOW CARDIOVASCULAR RISK<40 mg/dl - HIGH CARDIOVASCULAR RISKCO2 [Moles/Vol]30.0 mmol/L21.0-32.0[facility] Medical CenterCreatinine [Mass/Vol]0.98 mg/dL0.55-1.02[facility] GFR/1.73 sq M.predicted MDRD (S/P/Bld) [Vol rate/Area]mL/min/{1.73_m2}>=60 mL/min/1.73m 2FKindred HealthcareGlucose [Mass/Vol]221 mg/dLHigh 74-106[facility] Medical CenterNatriuretic peptide B (Bld) [Mass/Vol] 146.0 pg/mL<=1800.0[facility] Medical CenterPotassium [Moles/Vol]4.3 mmol/L3.5-5.1FBarney Children's Medical Centerodium [Moles/Vol]137 mmol/L 136-145[facility] Medical CenterTriglyceride [Mass/Vol]167 mg/dLHigh <=150[facility] Medical CenterUrea nitrogen [Mass/Vol]17.0 mg/dL7.0-18.0 [facility] Medical CenterUrea nitrogen/Creatinine [Mass ratio]17.3 mg/mg St. Rita's Hospitalerum or plasma anion gap determinationon 07-12-6073Exheo gap [Moles/Vol]Serum or plasma anion gap determinationSt. Rita's Hospitalerum or plasma total cholesterol/high density lipoprotein (HDL) cholesterol mass carlos 34-46-7103Rkfwnqbtavd.total/Cholesterol in HDL [Mass ratio]Serum or plasma total cholesterol/high density lipoprotein (HDL) cholesterol mass ratFirelands Regional Medical CenterComment on above:3.3 - 4.4 LOW RISK4.4 - 7.1 AVERAGE RISK7.1 - 11.0 MODERATE RISK>11.0 HIGH RISKCT chest wo conon 72-50-1427TQ chest wo [facility] [place] [address] [place], [place] [address] CT Scan Report Signed Patient: Heidi Palmer MR#: [id number] [birth year] : 1940 Acct:[id number] Age/Sex: 84 / F ADM Date: 12/07/24 Loc: XT Room: Type: [facility] RCR Attending Dr: Tosha Patel MD Copies [...] Benson Jr., D.O.12/07/2024 3:04 PM Dictation Location: [place] [address] Transcribed By: [facility] 12/07/24 1503 Dictated By: Anthony Benson Jr, DO 12/07/24 1502 Signed By: 12/07/24 1504[facility] Physician GroupNo Panel Informationon 00-71-8350Jliscov Uknmugn939ZhslzpkgmMetrohealth Cleveland Heights Medical CenterNM Heart Wall motion and Ejection fractionon 51-85-5532Wijrdr resting right ventricular function. Normalresting left ventricular function. Left ventricular ejection fraction is 67%. No previous study available comparison Signed by: Mukesh Cardozo 10/19/2024 4:38 PM Dictation workstation: [id number] MMODALInterpreted By: Mukesh Cardozo and Giannuzzi Michael STUDY: MUGA Performing facility: [facility], [address] [place] [address], [address] Provider: Sol Mcdermott DO, [facility] PCP: Dr. Huan Hook Supervising provider: Anabel Mccloud MD, [facility] INDICATION: CAD; HISTORY: Gender: F; Age: 84 y/o ; Height: HT 165.1 cm cm; Weight: WT 66.225 kg kg. High Cholesterol; CAD; Diabetes; HTN; Previous CA;2023 ICM Denies smoking. Cardiac catheterization on 2023. PTCA on 2023. COMPARISON: Previous nuclear testing completed [id number] MPI EF= 88% [place]. Previous echo testing completed lp4868 EF=40% at [facility]. ACCESSION NUMBER(S): [id number] ORDERING CLINICIAN: DAVID MCDERMOTT TECHNIQUE: The patient's red cells were [...] Global resting LVEF was normal- at 67%. Mukesh Buchanan MD - 10/19/2024 Interpreted By: Mukesh Cardozo and Giannuzzi Michael STUDY: MUGA Performing facility: [facility], [address] [facility], [address], [place] [id number] [facility] Provider: [facility] P[facility]: Dr. Huan Hook Supervising provider: Anabel Mccloud MD, [facility] INDICATION: CAD; HISTORY: Gender: F; Age: 84 y/o ; Height: HT 165.1 cm cm; Weight: WT 66.225 kg kg. High Cholesterol; CAD; Diabetes; HTN; Previous CA;2023 ICM Denies smoking. Cardiac catheterization on 2023. PTCA on 2023. COMPARISON: Previous nuclear testing completed [id number] MPI EF= 88% [place]. Previous echo testing completed aw7628 EF=40% at [facility]. ACCESSION NUMBER(S): [id number] ORDERING CLINICIAN: DAVID MCDERMOTT TECHNIQUE: The patient's red cells were [...] Mukesh Cardozo 10/19/2024 4:38 PM Dictation workstation: [id number] [facility] Work Phone: Radiology Study observation (narrative)[facility] Work Phone: NM Heart Wall motion and Ejection fractionOrdered By: Mukesh Cardozo on 01-77-3825BekuzaxxwqProMedica Fostoria Community Hospital Work Phone: nm HEART BLOOD POOL EJECTION FRACTION WALL MOTION (MUGA)on 33-99-1282HK HEART BLOOD POOL EJECTION FRACTION WALL MOTION (MUGA) Interpreted By: Mukesh Cardozo and Giannuzzi Michael STUDY: MUGA Performing facility: [facility], [address] [place] [address], [address], [place] [address] [facility] Provider: Sol Mcdermott DO, [facility] PCP: Dr. Huan Hook Supervising provider: Anabel Mccloud MD, [facility] INDICATION: CAD; HISTORY: Gender: F; Age: 84 y/o ; Height: HT 165.1 cm cm; Weight: WT 66.225 kg kg. High Cholesterol; CAD; Diabetes; HTN; Previous CA;2023 ICM Denies smoking. Cardiac catheterization on 2023. PTCA on 2023. COMPARISON: Previous nuclear testing completed sz0664 MPI EF= 88% [place] Previous echo testing completed rr9769 EF=40% at [facility]. ACCESSION NUMBER(S): [id number] ORDERING CLINICIAN: DAVID MCDERMOTT TECHNIQUE: The patient's red cells were [...] Mukesh Cardozo 10/19/2024 4:38 PM Dictation workstation: [id number] Hospital No Panel Informationon 70-76-6728Ogrczdr Qeozqfe068BvuwjijyqMetrohealth Cleveland Heights Medical CenterCholesterol in LDL Calc [Mass/Vol]on 92-34-5332Xnvjmvkgndl in LDL [Mass/Vol]76.8 mg/dLMetrohealth Cleveland Heights Medical CenterComment on above:<100 mg/dl VSFWSHU356-309 mg/dl NEAR OR ABOVE DXYCAVB384-501 mg/dl BORDERLINE AMJF050-258 mg/dl HIGH>190 mg/dl VERY HIGHCholesterol in VLDL Calc [Mass/Vol]on 09-05-2024 Cholesterol in VLDL [Mass/Vol]23.2 mg/dLMetrohealth [facility] Heights Medical Center Laboratory - Chemistry and Chemistry - challengeon 57-18-6704Ojvwnqqusme [Mass/Vol]149 mg/dL<=200[facility] Medical CenterCholesterol in HDL [Mass/Vol]49 mg/bM48-48StsssgdsyMetrohealth Cleveland Heights Medical CenterComment on above:> or =60 mg/dl - LOW CARDIOVASCULAR RISK<40 mg/dl - HIGH CARDIOVASCULAR RISK Triglyceride [Mass/Vol]116 mg/dL<=150St. Rita's Hospitalerum or plasma total cholesterol/high density lipoprotein (HDL) cholesterol mass carlos 86-77-7990Tqauhdwrhzt.total/Cholesterol in HDL [Mass ratio]3.0 {ratio}[facility] CenterComment on above:3.3 - 4.4 LOW RISK4.4 - 7.1 AVERAGE RISK7.1 - 11.0 MODERATE RISK>11.0 HIGH RISKAnisocytosis [Presence] in Blood by Light microscopyOrdered By: Roberto Carlos Mcdermott on 26-24-5001Lcuvylmpbwkb Ql (Bld)Slight [facility] Memorial HospitalComment on above:Performed By: #### BMP, DIFF CBC #### [place] [address] USABasic Metabolic Panelon 22-81-6491Dhvbcdzyth Clr Calc Gvmgohud51.26NoFormerly [facility] Physician GroupComment on above:Result Comment: PERFORMED BY: [place] [address] PATHOLOGIST COPYING MACHINE REPAIRER MELODY WHEELER M.D.Performed By: #### BMP, DIFF CBC #### [facility] [address] [place] [address] USAGFR/1.73 sq M.predicted MDRD (S/P/Bld) [Vol rate/Area] mL/min/{1.73_m2}[facility] Physician [facility] HospitalComment on above:Performed By: #### BMP, DIFF CBC #### [place] [address] USABasophils Auto (Bld) [#/Vol]Ordered By: Roberto Carlos Mcdermott on 05-81-1637Kxjdsgrgk (Bld) [#/Vol]N/[facility] Basophils/100 WBC Auto (Bld)Ordered By: Roberto Carlos Mcdermott on 26-57-9810Azqbcsixr/100 WBC (Bld)N/[facility] DaytonCalcium [Mass/volume] in Serum or PlasmaOrdered By: Roberto Carlos Mcdermott on 86-95-4123Zpypugv [Mass/Vol]8.9 mg/dLNormal 8.6-10.3FKindred HealthcareComment on above:Performed By: #### BMP, DIFF CBC #### [facility] [address] [place] [address] USACarbon dioxide, total [Moles/volume] in Serum or Plasma Ordered By: Roberto Carlos Mcdermott on 03-00-1489OC6 [Moles/Vol]25.9 mmol/ATfbfrv73.0-31.0 [facility] CenterComment on above:Performed By: #### BMP, DIFF CBC #### [facility] [address] [place] [address] USAChloride [Moles/volume] in Serum or PlasmaOrdered By: Roberto Carlos Baldemar on 09-85-6279Gkfgbbly [Moles/Vol]101 mmol/MAoqzbf95-076ZeavmmxweMetrohealth Cleveland Heights Medical CenterComment on above:Performed By: #### BMP, DIFF CBC #### [facility] [address] [place] [address] USACreatinine [Mass/volume] in Serum or PlasmaOrdered By: Roberto Carlos Mcdermott on 35-47-0659Jayqyqvrhh [Mass/Vol]0.68 mg/dLNormal0.60-1.20[facility] CenterComment on above:Performed By: #### BMP, DIFF CBC #### [facility] [address] [place] [address] USADiff and CBCon 12-46-2135Kyyf Corpuscular HGB Conc33.7 g/hFVkzgtv02.0-35.0[facility] Physician GroupComment on above:Performed By: #### BMP, DIFF CBC #### [facility] [address] [place] [address] USAMetamyelocytes3 %High0-0[facility]ician [facility] Comment on above:Performed By: #### BMP, DIFF CBC #### [facility] [address] [place] [address] USAOvalocytesSlightNormalThe [facility] Physician GroupComment on above:Performed By: #### BMP, DIFF CBC #### [facility] [address] [place] [address] USAPlatelet EstimateNormalNormalNormHCA Florida Fort Walton-Dest[facility] Hospital Physician GroupComment on above:Performed By: #### BMP, DIFF CBC #### [address] [address] USAPlatelet MorphologyNormalNormalNormHCA Florida Fort Walton-Destin Hospital Physician GroupComment on above:Result Comment: PERFORMED BY: [place] [address] PATHOLOGIST COPYING MACHINE REPAIRER MELODY WHEELER M.D.Performed By: #### BMP, DIFF CBC #### [place] [address] USAPoikilocytosisSlightNoFormerly [facility] Comment on above:Performed By: #### BMP, DIFF CBC #### [place] [address] USAReactive Lymphocytes1 %Normal0-12ThSt. Mary's Hospital Physician GroupComment on above:Performed By: #### BMP, DIFF CBC #### [address] [address] USASchistocytesSlightMelbourne Regional Medical Center Physician Group Comment on above:Performed By: #### BMP, DIFF CBC #### [place] [id number] USAECG 12 lead ECGon 90-44-2360ELO 12 lead [facility]GFLOWER [facility]OSPITAL [place] [address] [place] [address] Electrocardiograph Report Signed Patient: Heidi Palmer MR#: [id number] [birth year] : 1940 Acct:[id number] Age/Sex: 84 / F ADM Date: 06/29/24 Loc: Room: [address] [place] [address] Type: DIS IN Attending Dr: Roberto Carlos [...] Signed By Mukesh Cardozo MD 0 07/01/[address] [place] [address] Physician GroupECH echo transthoracicon 95-24-5159MRH echo transthoracicFLOWER HOSPITAL [place] [address] [place] [address] Echocardiogram Signed Patient: Heidi Palmer MR#: [id number] [birth year] : 1940 Acct:[id number] Age/Sex: 84 / F ADM Date: 06/29/24 Loc: Room: [address] [place] [address] Type: DIS IN Attending Dr: Roberto Carlos Mcdermott DO Ordering Provider: Roberto Carlos Mcdermott DO Date of Service: 06/30/24 ECH/ECH echo transthoracic: Anterior STEMI Copies to: MD [...] LV V1 VTI: 20.6 cm Transcribed By: RORYV Performed At: 06/30/24 0853 Signed By: Mukesh Cardozo MD 06/30/[address] [place] [address] Physician GroupEosinophils Auto (Bld) [#/Vol]Ordered By: Roberto Carlos Mcdermott on 06-30-2024 Eosinophils (Bld) [#/Vol]N/AFKindred HealthcareEosinophils/100 WBC Auto (Bld)Ordered By: Roberto Carlos Mcdermott on 90-76-7459Auwdfraecxd/100 WBC (Bld)N/A [facility] CenterEosinophils/100 leukocytes in Blood by Manual countOrdered By: Roberto Carlos Mcdermott on 77-89-2849Pxlramjbquy/100 WBC (Bld)6 %High1-3 [facility] CenterComment on above:Performed By: #### BMP, DIFF CBC #### [place] [address] USAErythrocyte distribution width [Ratio] by Automated count Ordered By: Roberto Carlos Mcdermott on 60-76-0380Hrepctactiq distribution width (RBC) [Ratio] 13.9 %Lheuyp37.9-15.3FKindred HealthcareComment on above:Performed By: #### BMP, DIFF CBC #### [facility] [address] [place] [address] USAErythrocytes [#/volume] in Blood by Automated countOrdered By: Roberto Carlos cMdermott on 75-03-1705STH (Bld) [#/Vol]4.62 10*6/uLNormal3.60-5.00 [facility] CenterComment on above:Performed By: #### BMP, DIFF CBC #### [facility] [address] [place] [address] USAGlucose [Mass/volume] in Serum or PlasmaOrdered By: Roberto Carlos Mcdermott on 77-57-9004Fdugdpi [Mass/Vol]173 mg/gGGhev37-588BdlznesxiMetrohealth Cleveland Heights Medical CenterComment on above:ADA recommended reference rangeRandom Glucose Reference Range is dependent on time and content of last meal. Glucose of more than 200 mg/dL in a nonstressed, ambulatory subject supports the diagnosisof Diabetes Mellitus.Result Comment: Random Glucose Reference Range is dependent on time and content of last meal. Glucose of more than 200 mg/dL in a nonstressed, ambulatory subject supports the diagnosis of Diabetes Mellitus. ADA recommended reference rangePerformed By: #### BMP, DIFF CBC #### [facility] [address] [place] [id number] USAHematocrit [Volume Fraction] of Blood by Automated count Ordered By: Roberto Carlos Mcdermott on 06-67-0688Zbyizwinxd (Bld) [Volume fraction]42.1 % Psiyzg83.0-46.4FKindred HealthcareComment on above:Performed By: #### BMP, DIFF CBC #### [facility] [address] [place] [id number] USAHemoglobin [Mass/volume] in BloodOrdered By: Roberto Carlos Mcdermott on 05-37-9794Swdyrpgcli (Bld) [Mass/Vol]14.2 g/kTPaklov30.8-15.4FKindred HealthcareComment on above:Performed By: #### BMP, DIFF CBC #### [address] [address] USALeukocytes [#/volume] corrected for nucleated erythrocytes in Blood by Automated counOrdered By: Roberto Carlos Mcdermott on 61-27-7211JPI corrected for nucl RBC Auto (Bld) [#/Vol]14.1 10*3/uLHigh3.8-11.6FKindred HealthcareLeukocytes [#/volume] in Blood by Automated countOrdered By: Roberto Carlos Mcdermott on 46-53-8209JEQ (Bld) [#/Vol]14.1 10*3/uLHigh3.8-11.6FKindred HealthcareComment on above:Performed By: #### BMP, DIFF CBC #### [address] [address] USALymphocytes Auto (Bld) [#/Vol]Ordered By: Roberto Carlos Mcdermott on 78-87-2208Ecqfnvbhnok (Bld) [#/Vol]N/[facility] Lymphocytes/100 WBC Auto (Bld)Ordered By: Roberto Carlos Mcdermott on 54-04-9729Lnxaeowrqce/100 WBC (Bld)N/[facility] DaytonLymphocytes/100 leukocytes in Blood by Manual countOrdered By: Roberto Carlos Mcdermott on 53-87-8830Rfvagpsktoz/100 WBC (Bld)9 %Sff03-06SzflxepxbMetrohealth Cleveland Heights Medical CenterComment on above:Performed By: #### BMP, DIFF CBC #### [facility] [address] [Entitic mass] by Automated countOrdered By: Roberto Carlos Mcdermott on 92-95-0704LAR (RBC) [Entitic mass]30.7 hbXweuda52.7-34.3FKindred HealthcareComment on above:Performed By: #### BMP, DIFF CBC #### [facility] [address] [place] [id number] [facility] Auto (RBC) [Mass/Vol]Ordered By: Roberto Carlos Mcdermott on 61-74-7138UMIQ (RBC) [Mass/Vol]33.7 g/dL32.0-35.0[facility] Medical CenterMCV [Entitic volume] by Automated countOrdered By: Roberto Carlos Mcdermott on 06-30-2024 MCV (RBC) [Entitic vol]91.3 uFLcixlm66-675KmsnbznowMetrohealth Cleveland Heights Medical Center Comment on above:Performed By: #### BMP, DIFF CBC #### [facility] [address] [id number] USAManual blood segmented neutrophils/100 leukocytesOrdered By: Roberto Carlos Mcdermott on 77-49-7087Fjxlkxgfl neutrophils/100 WBC (Bld)68 %Wliqcq29-68 [facility] CenterComment on above:Performed By: #### BMP, DIFF CBC #### [facility] [address] [place] [address] USAMetamyelocytes/100 WBC Manual cnt (Bld)Ordered By: Roberto Carlos Mcdermott on 76-22-3509Wcwbpyqjmtlyct/100 WBC (Bld)3 %High0-0[facility] Medical CenterMonocytes Auto (Bld) [#/Vol]Ordered By: Roberto Carlos Mcdermott on 06-30-2024 Monocytes (Bld) [#/Vol][facility] HospitalMonocytes/100 WBC Auto (Bld)Ordered By: Roberto Carlos Mcdermott on 44-21-5789Gygdfelkb/100 WBC (Bld)[facility] HospitalMonocytes/100 leukocytes in Blood by Manual countOrdered By: Roberto Carlos Mcdermott on 04-41-6873Nvdelxihd/100 WBC (Bld)11 %Normal2-11[facility] Medical CenterComment on above:Performed By: #### BMP, DIFF CBC #### [facility] [address] [place] [address] USANeutrophils Auto (Bld) [#/Vol]Ordered By: Roberto Carlos Mcdermott on 81-51-7044Cwwvrhcnbul (Bld) [#/Vol][facility] Neutrophils/100 WBC Auto (Bld)Ordered By: Roberot Carlos Mcdermott on 79-08-7094Tomrxqdzhez/100 WBC (Bld)[facility] HospitalNo Panel InformationOrdered By: Roberto Carlos Mcdermott on 54-18-5555Drcaqeyej GFR (CKD-EPI)> 60.0 mL/MinMetrohealth Cleveland Heights Medical CenterPharmacy Creatinine Clearance (Chem46.26[facility] Medical CenterNucleated erythrocytes [Presence] in Blood by Automated countOrdered By: Roberto Carlos Mcdermott on 32-72-3228Qppagprrj RBC Auto Ql (Bld)[facility] HospitalOvalocyte detectionOrdered By: Roberto Carlos Mcdermott on 88-83-2340Ybhgpnyeuk LM Ql (Bld)SlightMetrohealth Cleveland Heights Medical CenterPeripheral white blood cell differential % bands, microscopic examOrdered By: Roberto Carlos Mcdermott on 88-24-8446Vfkm form neutrophils/100 WBC (Bld)2 %Normal0-5FKindred Healthcare Comment on above:Performed By: #### BMP, DIFF CBC #### [facility] [address] [id number] USAPlatelet adequacy [Presence] in Blood by Light microscopy Ordered By: Roberto Carlos Mcdermott on 94-19-9151Hgtajofhs LM Ql (Bld)NormalNormTwin City HospitalPlatelet mean volume [Entitic volume] in Blood by Automated countOrdered By: Roberto Carlos Mcdermott on 80-56-6017Nkbuqcdl mean volume (Bld) [Entitic vol]8.2 fLNormal6.3-10.7FKindred HealthcareComment on above:Result Comment: PERFORMED BY: [place] [address] PATHOLOGIST COPYING MACHINE REPAIRER MELODY WHEELER M.D.Performed By: #### BMP, DIFF CBC #### [place] [address] USAPlatelet morphology finding [Identifier] in BloodOrdered By: Roberto Carlos Mcdermott on 28-24-1679Rhrpusng morphology finding Nom (Bld)NormalNormal [facility] Medical CenterPlatelets [#/volume] in Blood by Automated countOrdered By: Roberto Carlos Mcdermott on 42-12-9825Ydkjuzayu (Bld) [#/Vol]228 10*3/uLNormal 150-450[facility] Medical CenterComment on above:Performed By: #### BMP, DIFF CBC #### [place] [address] USAPoikilocytosis [Presence] in Blood by Light microscopy Ordered By: Roberto Carlos Mcdermott on 78-87-2054Pkoqjaezgpqcfq LM Ql (Bld)SlightMetrohealth Cleveland Heights Medical CenterPotassium [Moles/volume] in Serum or PlasmaOrdered By: Roberto Carlos Mcdermott on 90-81-0581Ebjkmizsl [Moles/Vol]4.4 mmol/LNormal3.5-5.1FKindred HealthcareComment on above:Performed By: #### BMP, DIFF CBC #### [place] [address] USARBC morphologyOrdered By: Roberto Carlos Mcdermott on 96-02-1100IHW morphology finding Nom (Bld)N/AFBarney Children's Medical Centerchistocytes [Presence] in Blood by Light microscopyOrdered By: Roberto Carlos Mcdermott on 06-30-2024 Schistocytes LM Ql (Bld)SlightSt. Rita's Hospitalerum or plasma anion gap determinationOrdered By: Roberto Carlos Mcdermott on 98-89-5299Keesx gap [Moles/Vol] 9.5 mmol/LNormal6.0-15.0[facility] Medical CenterComment on above: Performed By: #### BMP, DIFF CBC #### [facility] [address] [place] [address] USASodium [Moles/volume] in Serum or PlasmaOrdered By: Roberto Carlos Mcdermott on 90-02-2516Cagoxd [Moles/Vol]132 mmol/XCto289-992QxullsmbaMetrohealth Cleveland Heights Medical CenterComment on above:Performed By: #### BMP, DIFF CBC #### [facility] [address] [place] [address] USAUrea nitrogen [Mass/volume] in Serum or PlasmaOrdered By: Roberto Carlos Mcdermott on 08-31-6440Yfkj nitrogen [Mass/Vol]13 mg/dLNormal7-25[facility] Medical CenterComment on above:Performed By: #### BMP, DIFF CBC #### [place] [address] USAVariant lymphocytes/100 WBC Manual cnt (Bld)Ordered By: Roberto Carlos Mcdermott on 15-93-3061Rzqnmif lymphocytes/100 WBC (Bld)1 %0-12[facility] Medical CenterBasic Metabolic Panelon 65-23-9290Pzsem gap [Moles/Vol]7.8 mmol/L Normal6.0-15.0The [facility] Physician GroupComment on above:Performed By: #### BMP, LIPID, CBC #### [facility] [address] [place] [address] USACalcium [Mass/Vol]9.4 mg/dLNormal8.6-10.3The [facility] Physician GroupComment on above:Performed By: #### BMP, LIPID, CBC #### [facility] [address] [place] [id number] USAChloride [Moles/Vol]98 mmol/ETbbcvq47-069Gmh [facility] Physician GroupComment on above:Performed By: #### BMP, LIPID, CBC #### [facility] [address] [place] [address] USACO2 [Moles/Vol]28.7 mmol/BYkpzmi40.0-31.0The [facility] Physician GroupComment on above:Performed By: #### BMP, LIPID, CBC #### [facility] [address] [place] [address] USACreatinine [Mass/Vol]0.77 mg/dLNormal0.60-1.20The [facility] Physician GroupComment on above:Performed By: #### BMP, LIPID, CBC #### [facility] [address] [place] [address] USACreatinine Clr Calc Jrhtajnc66.26NormalThSt. Mary's Hospital Physician GroupComment on above:Performed By: #### BMP, LIPID, CBC #### [facility] [address] [place] [address] USAGFR/1.73 sq M.predicted MDRD (S/P/Bld) [Vol rate/Area] mL/min/{1.73_m2}NormalThe [facility] Physician GroupComment on above:Performed By: #### BMP, LIPID, CBC #### [facility] [address] [place] [address] USAGlucose [Mass/Vol]251 mg/sLRvpt62-744Vuz [facility] Physician GroupComment on above:Result Comment: Random Glucose Reference Range is dependent on time and content of last meal. Glucose of more than 200 mg/dL in a nonstressed, ambulatory subject supports the diagnosis of Diabetes Mellitus. ADA recommended reference rangePerformed By: #### BMP, LIPID, CBC #### [facility] [address] [place] [address] USAPotassium [Moles/Vol]5.5 mmol/LHigh3.5-5.1The [facility] Physician GroupComment on above:Performed By: #### BMP, LIPID, CBC #### [facility] [address] [place] [address] USASodium [Moles/Vol]129 mmol/FBge331-708Szl [facility] Physician GroupComment on above:Performed By: #### BMP, LIPID, CBC #### [facility] [address] [place] [id number] USAUrea nitrogen [Mass/Vol]13 mg/dLNormal7-e [facility] Physician GroupComment on above:Performed By: #### BMP, LIPID, CBC #### [facility] [address] [id number] USABasophils Auto (Bld) [#/Vol]on 94-44-5295Gauctucex (Bld) [#/Vol]0.1 10 3/uL0.0-0.1FKindred HealthcareBasophils/100 WBC Auto (Bld)on 53-88-3006Grpvzovyv/100 WBC (Bld)1.0 %0.2-2.0[facility] Medical CenterCholesterol [Mass/volume] in Serum or PlasmaOrdered By: Roberto Carlos Mcdermott on 07-60-3416Rugyauwetup [Mass/Vol]167 mg/sRNgpnkk431-931GdedjdhskMetrohealth Cleveland Heights Medical CenterComment on above:Chol less than 200 mg/dl low riskChol 201-239 mg/dl borderline riskChol 240 mg/dl and greater high riskResult Comment: Chol less than 200 mg/dl low risk Chol 201-239 mg/dl borderline risk Chol 240 mg/dl and greater high riskPerformed By: #### BMP, LIPID, CBC #### [facility] [address] [place] [id number] USACholesterol in LDL Calc [Mass/Vol]Ordered By: Roberto Carlos Mcdermott on 98-14-9826Zelyesewnma in LDL [Mass/Vol]101 mg/dLHigh0-100[facility] Medical CenterComment on above:LDL ATP III CLASSIFICATIONLDL less than 100 mg/dL OptimalLDL 100-129 mg/dL Near or above gsietpcFUQ046-556 mg/dL Borderline highLDL 160-189 mg/dL HighLDL greater than 189 mg/dL Very highCholesterol in VLDL Calc [Mass/Vol]Ordered By: Roberto Carlos Mcdermott on 01-09-9818Lasdicssysn in VLDL [Mass/Vol]19 mg/dLMetrohealth Cleveland Heights Medical CenterComplete Blood Count Auto Diffon 09-63-7391Nojhqfuam (Bld) [#/Vol]0.1 10*3/uLNormal0.0-0.2The [facility] Physician GroupComment on above:Result Comment: PERFORMED BY: [place] [address] PATHOLOGIST COPYING MACHINE REPAIRER MELODY WHEELER M.D.Performed By: #### BMP, LIPID, CBC #### [place] [address] USABasophils/100 WBC (Bld)0.8 %Normal.The [facility] Physician GroupComment on above:Performed By: #### BMP, LIPID, CBC #### [place] [address] USAEosinophils (Bld) [#/Vol]0.1 10*3/uLNormal0.0-0.45The [facility] Physician GroupComment on above:Performed By: #### BMP, LIPID, CBC #### [place] [address] USAEosinophils/100 WBC (Bld)0.5 %Normal.The [facility] Physician GroupComment on above:Performed By: #### BMP, LIPID, CBC #### [place] [address] USAErythrocyte distribution width (RBC) [Ratio]13.9 %Normal 11.9-15.3The [facility] Physician GroupComment on above:Performed By: #### BMP, LIPID, CBC #### [place] [address] USAHematocrit (Bld) [Volume fraction]41.1 %Itmtzk02.0-46.4The [facility] Physician GroupComment on above:Performed By: #### BMP, LIPID, CBC #### [place] [address] USAHemoglobin (Bld) [Mass/Vol]13.7 g/oXFvhlfs84.8-15.4The [facility] Physician GroupComment on above:Performed By: #### BMP, LIPID, CBC #### [place] [address] USALymphocytes (Bld) [#/Vol]2.1 10*3/uLNormal1.00-4.8The [facility] Physician GroupComment on above:Performed By: #### BMP, LIPID, CBC #### [place] [address] USALymphocytes/100 WBC (Bld)15.0 %Normal.The [facility] Physician GroupComment on above:Performed By: #### BMP, LIPID, CBC #### [address] (RBC) [Entitic mass]30.5 qpTyqrjd44.7-34.3The [facility] Physician GroupComment on above:Performed By: #### BMP, LIPID, CBC #### [place] [address] USAV (RBC) [Entitic vol]91.3 vWNiyffz33-465Mrn [facility] Physician GroupComment on above:Performed By: #### BMP, LIPID, CBC #### [place] [address] USAMean Corpuscular HGB Conc33.4 g/sCDbkvqx83.0-35.0The [facility] Physician GroupComment on above:Performed By: #### BMP, LIPID, CBC #### [place] [address] USAMonocytes (Bld) [#/Vol]0.9 10*3/uLHigh0.0-0.8The [facility] Physician GroupComment on above:Performed By: #### BMP, LIPID, CBC #### [place] [address] USAMonocytes/100 WBC (Bld)6.6 %Normal.The [facility] Physician GroupComment on above:Performed By: #### BMP, LIPID, CBC #### [place] [address] USANeutrophils (Bld) [#/Vol]10.7 10*3/uLHigh1.8-7.7The [facility] Physician GroupComment on above:Performed By: #### BMP, LIPID, CBC #### [facility] [address] [place] [address] USANeutrophils/100 WBC (Bld)77.1 %Normal.The [facility] Physician GroupComment on above:Performed By: #### BMP, LIPID, CBC #### [facility] [address] [place] [address] USANRBC%0.1 /100{WBC}Normal0-0.5The [facility] Group Comment on above:Performed By: #### BMP, LIPID, CBC #### [facility] [address] [place] [address] USAPlatelet mean volume (Bld) [Entitic vol]8.2 fLNormal 6.3-10.7The [facility] Physician GroupComment on above:Performed By: #### BMP, LIPID, CBC #### [place] [address] USAPlatelets (Bld) [#/Vol]266 10*3/xTPzkbrv900-712Jcw [facility] Physician GroupComment on above:Performed By: #### BMP, LIPID, CBC #### [place] [address] USARBC (Bld) [#/Vol]4.50 10*6/uLNormal3.60-5.00The [facility] Physician GroupComment on above:Performed By: #### BMP, LIPID, CBC #### [place] [address] USAWBC (Bld) [#/Vol]13.9 10*3/uLHigh3.8-11.6The [facility] Physician GroupComment on above:Performed By: #### BMP, LIPID, CBC #### [place] [address] USAECG 12 lead ECGon 12-82-3479CEC 12 [facility] [place] [address] [place] [address] Electrocardiograph Report Signed Patient: Heidi Palmer MR#: [id number] [birth year] : 1940 Acct:[id number] Age/Sex: 84 / F ADM Date: 06/29/24 Loc: Room: [address] [place] [address] Type: DIS IN Attending Dr: Roberto Carlos [...] Abnormal ECG When compared with ECG of 28-Oct-2023 07:29, Left anterior fascicular block is now present new finding of antro-septal Mi T wave inversion now evident in Inferior leads Nonspecific T wave abnormality now evident in Anterior leads Confirmed by MUKESH CARDOZO MD (Quintin) on 07/01/2024 12:47:44 AM Referred By: Electronically Signed By: MUKESH CARDOZO MD Transcribed By: MUS Signed By Mukesh Cardozo MD 0 07/01/24 0047[facility] Physician GroupEosinophils/100 WBC Auto (Bld)on 24-08-6558Deiavagmehf/100 WBC (Bld)1.3 %0.9-7.0[facility] Erythrocyte distribution width Auto (RBC) [Ratio]on 81-20-9451Ubgbtcqadrj distribution width (RBC) [Ratio]13.0 %11.0-15.0[facility] Estimated glomerular filtration rate (GFR) non- Americanon 06-29-2024 GFR/1.73 sq M.predicted among non-blacks MDRD (S/P/Bld) [Vol rate/Area] mL/min/{1.73_m2}>=60[facility] Medical CenterHematocrit Auto (Bld) [Volume fraction]on 57-10-4173Zhuzbjeyzn (Bld) [Volume fraction]47.3 %36.0-48.0 [facility] Medical CenterHemoglobin [Mass/volume] in Bloodon 06-29-2024 Hemoglobin (Bld) [Mass/Vol]16.0 g/dL12.0-16.0[facility] Laboratory - Chemistry and Chemistry - challengeon 41-78-4102Gnleogb [Mass/Vol] 10.2 mg/dLHigh8.5-10.1FKindred HealthcareChloride [Moles/Vol]99 mmol/F96-909DddgdpryfMetrohealth Cleveland Heights Medical CenterCO2 [Moles/Vol]31.9 mmol/L21.0-32.0 [facility] CenterCreatinine [Mass/Vol]0.83 mg/dL0.55-1.02 [facility] CenterGFR/1.73 sq M.predicted MDRD (S/P/Bld) [Vol rate/Area]mL/min/{1.73_m2}>=60[facility] Medical CenterGlucose [Mass/Vol]222 mg/oSHlbl51-640VmlkpszgnMetrohealth Cleveland Heights Medical CenterPotassium [Moles/Vol]4.3 mmol/L3.5-5.1FBarney Children's Medical Centerodium [Moles/Vol] 137 mmol/V115-587HqcsuwyqbMetrohealth Cleveland Heights Medical CenterUrea nitrogen [Mass/Vol]12.0 mg/dL7.0-18.0[facility] Medical CenterUrea nitrogen/Creatinine [Mass ratio]14.5 mg/mgMetrohealth Cleveland Heights Medical CenterLaboratory - Hematology and Cell countson 38-08-4036Bvfsrzob granulocytes/100 WBC (Bld)0.7 %High0.0-0.5 [facility] Medical CenterLeukocytes [#/volume] corrected for nucleated erythrocytes in Blood by Automated counon 67-24-6658WIJ corrected for nucl RBC Auto (Bld) [#/Vol]12.1 10 3/uLHigh4.0-11.0[facility] Medical CenterLipid Panelon 20-29-6727FCK Cholesterol,Woyplzgvzj135 mg/dLHigh0-100The [facility] Physician GroupComment on above:Result Comment: LDL ATP III CLASSIFICATION LDL less than 100 mg/dL Optimal LDL 100-129 mg/dL Near or above optimal LDL 130-159 mg/dL Borderline high LDL 160-189 mg/dL High LDL greater than 189 mg/dL Very highPerformed By: #### BMP, LIPID, CBC #### [facility] [address] [place] [address] USATriglyceride w/Nicypl90 mg/dLNormal0-149[facility] Physician GroupComment on above:Result Comment: TRIG ATP III CLASSIFICATION TRIG less than 150 mg/dL Normal TRIG 150-199 mg/dL Borderline high TRIG 200-500 mg/dL High TRIG greater than 500 mg/dL Very high Standard traceable to the Center for Disease Conrtrol and Prevention (CDC) test method.Performed By: #### BMP, LIPID, CBC #### [facility] [address] [place] [address] USAVLDL UKZNEWUSSGC65 mg/dLNormalThe [facility] Physician GroupComment on above:Performed By: #### BMP, LIPID, CBC #### [facility] [address] [place] [address] USALymphocytes Auto (Bld) [#/Vol]on 58-01-0126Zqnrhkrazmy (Bld) [#/Vol]4.4 10 3/uLHigh1.2-3.8[facility] Lymphocytes/100 WBC Auto (Bld)on 81-72-7965Niszwqhxmsy/100 WBC (Bld)36.0 % 20.5-60.0[facility] Auto (RBC) [Entitic mass]on 50-19-0766BGW (RBC) [Entitic mass]30.8 pg26.7-34.0[facility] Medical CenterMCHC Auto (RBC) [Mass/Vol]on 00-21-8627PCLV (RBC) [Mass/Vol]33.8 g/dL 29.9-35.2FKindred HealthcareMCV Auto (RBC) [Entitic vol]on 08-17-6779DAN (RBC) [Entitic vol]91.0 fL81.0-99.0[facility] Medical CenterMonocytes Auto (Bld) [#/Vol]on 43-66-2631Cvawbefqo (Bld) [#/Vol]1.4 10 3/uLHigh0.3-0.8[facility] CenterMonocytes/100 WBC Auto (Bld)on 04-77-2161Ktbqcgrfr/100 WBC (Bld)11.4 %1.7-12.0[facility] Neutrophils Auto (Bld) [#/Vol]on 97-02-2135Sorezipvmgt (Bld) [#/Vol]6.0 10 3/uL 1.4-6.5FKindred HealthcareNeutrophils/100 WBC Auto (Bld)on 18-88-6764Aoipazdmqiy/100 WBC (Bld)49.6 %43.0-75.0[facility] CenterNo Panel Informationon 07-03-7150Ffkqapapdnt # (Auto)0.2 10 3/uL0.0-0.7 [facility] Medical CenterImmature Granulocyte # (Auto)0.08 10 3/uLHigh 0.00-0.03[facility] Medical CenterTroponin I High Prxxdyjsxfc59.1 pg/mL 4.0-51.3FKindred HealthcareComment on above:CUT-OFF POINTS HAVE BEEN ESTABLISHED BASED ON THE FOURTHUNIVERSAL DEFINITION OF MYOCARDIAL INFARCTIO N. THE UPPERREFERENCE LIMIT (URL) OF TROPONIN, DEFINED THE 99THPERCENTILE OF cTnI DISTRIBUTION IN A REFERENCE POPULATION,HAS BEEN CONFIRMED THE DECISION THRESHOLD FOR MIDIAGNOSIS.99TH PERCENTILE = 51.4 PG/MLNOTE: HIGH-SENSITIVITY TROPONIN ASSAY IS NOT INTENDED TO BEUSED IN ISOLATION BUT SHOULD BE INTERPRETED IN CONJUNCTIONWITH OTHER DIAGNOSTIC AND CLINICAL INFORMATION.Platelet mean volume Auto (Bld) [Entitic vol]on 41-66-6283Rqhszaup mean volume (Bld) [Entitic vol]9.8 fL9.5-13.5FKindred HealthcarePlatelets Auto (Bld) [#/Vol] on 32-32-8998Veamsuiqx (Bld) [#/Vol]307 10 3/dU004-471NllspefgjMetrohealth Cleveland Heights Medical CenterRBC Auto (Bld) [#/Vol]on 30-10-9060EYO (Bld) [#/Vol]5.20 10 6/uL4.20-5.40 [facility] Rita's Hospitalerum or plasma anion gap determinationon 52-95-3666Xovut gap [Moles/Vol]10.4 mmol/LFirelands Regional Medical CenterSerum or plasma high density lipoprotein (HDL) cholesterol measurementOrdered By: Roberto Carlos Mcdermott on 78-98-8476Rghoxfsfdra in HDL [Mass/Vol]47 mg/zMCmipyg59-54NloyymzokMetrohealth Cleveland Heights Medical CenterComment on above:HDL CHOL ATP-III CLASSIFICATION Cardiovascular RiskHDL > or equal to 60 mg/dL LOWHDL < 40 mg/dL HIGHResult Comment: HDL CHOL ATP-III CLASSIFICATION Cardiovascular Risk HDL > or equal to 60 mg/dL LOW HDL < 40 mg/dL HIGHPerformed By: #### BMP, LIPID, CBC #### [facility] [address] [place] [address] USASerum or plasma total cholesterol/high density lipoprotein (HDL) cholesterol mass ratOrdered By: Roberto Carlos Mcdermott on 06-29-2024 Cholesterol.total/Cholesterol in HDL [Mass ratio]3.6 {ratio}Normal<5.0[facility] Medical CenterComment on above:Result Comment: PERFORMED BY: [address] [place] [address] PATHOLOGIST COPYING MACHINE REPAIRER MELODY WHEELER M.D.Performed By: #### BMP, LIPID, CBC #### [facility] [address] [place] [id number] USATriglyceride [Mass/volume] in Serum or PlasmaOrdered By: Roberto Carlos Mcdermott on 49-50-7342Csxztjfettls [Mass/Vol]97 mg/dL0-149[facility] Medical CenterComment on above:TRIG ATP III CLASSIFICATIONTRIG less than 150 mg/dL NormalTRIG 150-199 mg/dL Borderline highTRIG 200-500 mg/dL High TRIG greater than 500 mg/dL Very highStandard traceable to the Center for Disease Co nrtrol and Prevention (CDC) test method.Troponin I High Sensitivityon 06-29-2024 Troponin I High Ggbxucxwfqe32452.3 pg/mLOff scale high0.0-15.0The [facility] Physician GroupComment on above:Order Comment: Retimed last draw was at 1228 Result Comment: Critical Result : Called to and read back by: ИРИНА BUTLER at: 06/29/2024 15:50:19 by:CHRISTOPHER PERFORMED BY: [address] [place] [address] PATHOLOGIST COPYING MACHINE REPAIRER MELODY WHEELER M.D.Performed By: #### HS TROP #### [address] [place] [address] USATroponin I High Nsjwientidy25899.0 pg/mLOff scale high 0.0-15.0[facility] Physician GroupComment on above:Result Comment: Critical Result : Called to and read back by: ИРИНА BUTLER at: 06/29/2024 10:55:36 by:JOHN PERFORMED BY: [facility] [address] [facility] [place] [address] PATHOLOGIST COPYING MACHINE REPAIRER MELODY WHEELER M.D.Performed By: #### HS TROP ####[address] [address] USATroponin I High Kyeawjggdlt9194.8 pg/mLOff scale high0.0-15.0[facility] Physician GroupComment on above:Result Comment: Critical Result : Called to and read back by: ИРИНА BUTLER at: 06/29/2024 08:05:28 by:JOHN PERFORMED BY: [address] [place] [address] PATHOLOGIST COPYING MACHINE REPAIRER MELODY WHEELER M.D.Performed By: #### HS TROP ####[address] [address] USATroponin I High Ymqtdjhxigd5212.1 pg/mLOff scale high0.0-15.0[facility] Physician GroupComment on above:Result Comment: Critical Result : Called to and read back by: DEBRA GALE at: 06/29/2024 06:36:22 by:JOHN PERFORMED BY: [address] [place] [address] PATHOLOGIST COPYING MACHINE REPAIRER MELODY WHEELER M.D.Performed By: #### HS TROP ####[address] [address] USATroponin I.cardiac [Mass/volume] in Serum or Plasma by Detection limit <= 0.01 ng/Ordered By: Roberto Carlos Mcdermott on 08-90-2519Lwubwagq I.cardiac DL <= 0.01 ng/mL [Mass/Vol]70238.3 pg/mLHigh 0.0-15.0[facility] Medical CenterComment on above:Critical Result : Called to and read back by: ИРИНА BUTLER at: 06/29/2024 15:50:19 by:[facility] chest wo conon 09-45-1332JZ chest wo [facility] [place] [address] CT Scan Report Signed Patient: Heidi Palmer MR#: [id number] 13 : 1940 Acct:[id number] Age/Sex: 84 / F ADM Date: 06/07/24 Loc: XT Room: Type: [facility] Attending Dr: Tosha Patel MD Copies to: [...] resolution. Impression dictated by: Anthony Benson Jr., Jordi06/07/2024 1:36 PM Dictation Location: [place] [address] Transcribed By: [facility] 06/07/24 1336 Dictated By: Anthony Benson Jr, DO 06/07/24 1325 Signed By: 06/07/24 1336[facility] Physician MagoqDwB6w HPLC (Bld) [Mass fraction] on 19-35-1798BzE5s (Bld) [Mass fraction]9.5 %[facility] CenterNo Panel Informationon 94-09-7007Fsbfftd Beubtdt054JbdmrqqhxMet[facility] Medical CenterHbA1c HPLC (Bld) [Mass fraction]on 55-26-8602VgU9c (Bld) [Mass fraction] 9.3 %[facility] CenterNo Panel Informationon 99-03-1868Ybnfemw Gbwevci503JstegnvwwMet[facility] CenterNo Panel Informationon 01-17-2024 Bedside Ylhcnke481XrfioxcjgMetrohealth [facility] Heights Medical CenterAtypical perinuclear antineutrophil cytoplasmic antibodies measurementOrdered By: Tosha Patel on 89-40-1615Ubeacnpmcn cytoplasmic Ab.perinuclear.atypical IF (S) [Titer]<1:20 titerNeg:<1:20[facility] CenterComment on above:The atypical pANCA pattern has been observed in asignificant percentage of patients with ulcerativecolitis,primary sclerosing cholangitis and autoimmune hepatitis.Performed at: - Lab[address] [id number] Director: Jarod Rush MD, Phone: [phone] at: - Labco[address] [id number] Director: José Manuel Petersen PhD, Phone: [phone] Glucometer ([facility]) [Mass/Vol]Ordered By: Tosha Patel on 71-85-2906Sovzptp [Mass/Vol]82 mg/dLMetrohealth Cleveland Heights Medical CenterComment on above:Random Glucose Reference Range is dependent on time and content of last meal. Glucose of more than 200 mg/dL in a nonstressed, ambulatory subject supports the diagnosis of Diabetes Mellitus.Glucose [Mass/Vol]Capillary blood glucose measurement by glucometer (mass/volume) [facility] CenterComment on above:Random Glucose Reference Range is dependent on time and content of last meal. Glucose of more than 200 mg/dL in a nonstressed, ambulatory subject supports the diagnosis of Diabetes Mellitus.Myeloperoxidase Ab [Units/volume] in Serum by ImmunoassayOrdered By: Tosha Patel on 69-73-5401Lexlgmzbwahqrib Ab IA Qn (S)<0.2 units0.0-0.9 [facility] CenterMyeloperoxidase Ab IA Qn (S)Myeloperoxidase Ab [Units/volume] in Serum by Immunoassay0.0-0.9[facility] Neutrophil cytoplasmic Ab.perinuclear.atypical [Titer] in Serum by ImmunofluorescenceOrdered By: Tosha Patel on 47-42-8789Cirysirvlt cytoplasmic Ab.perinuclear.atypical IF (S) [Titer]Neutrophil cytoplasmic Ab.perinuclear.atypical [Titer] in Serum by ImmunofluorescenceNeg:<1:20[facility] CenterComment on above:The atypical pANCA pattern has been observed in asignificant percentage of patients with ulcerativecolitis,primary sclerosing cholangitis and autoimmune hepatitis.Performed at: [facility] Lab[address] [id number] Director: Jarod Ruhs MD, Phone: [phone] at: [facility] Lab[address] [id number] Director: José Manuel Petersen PhD, Phone: [phone] Panel InformationOrdered By: Tosha Patel on 87-46-4797Eiijunowhow ANCA (p-ANCA) Antibody<1:20 titerNeg:<1:20[facility] CenterComcorewell health zeeland hospital on above: The presence of positive fluorescence exhibiting P-ANCA orC-ANCA patterns alone is not specific forthe diagnosis ofWegener's Granulomatosis (WG) or microscopic polyangiitis.Decisions about treatmentshould not be based solely onANCA IFA results. The International ANCA Group Consensusrecommends follow up testing of positive sera with both NJ-3 and MPO-ANCA enzyme immunoassays. As many as 5% serumsamples are positive only by EIA. Ref. AM J Clin Vbatse7730;111:507-513. Proteinase 3 Ab [Units/volume] in Serum by ImmunoassayOrdered By: Tosha Patel on 75-91-1759Rjipnobyxh 3 Ab IA Qn (S)<0.2 units0.0-0.9[facility] CenterProteinase 3 Ab IA Qn (S)Proteinase 3 Ab [Units/volume] in Serum by Immunoassay0.0-0.9St. Rita's Hospitalerum angiotensin converting enzyme (SONIYA) measurementOrdered By: Tosha Patel on 11-24-2023 Angiotensin converting enzyme [Catalytic activity/Vol]50 U/A78-40Exljzbgzr32 Parker StreetComment on above:Performed at: [facility] [address] [id number] Director: José Manuel Petersen PhD, Phone: [phone] converting enzyme [Catalytic activity/Vol]Serum angiotensin converting enzyme (SONIYA) ikkihlgtrfp18-27ZheirozdoMetrohealth Cleveland Heights Medical CenterComment on above:Performed at: [facility] [address] [id number] Director: José Manuel Petersen PhD, Phone: [phone] classic neutrophil cytoplasmic antibody titer by immunofluorescenceOrdered By: Tosha Patel on 62-78-8661Mmxjjpmmze cytoplasmic Ab.classic IF (S) [Titer] <1:20 titerNeg:<1:20[facility] CenterNeutrophil cytoplasmic Ab.classic IF (S) [Titer]Serum classic neutrophil cytoplasmic antibody titer by immunofluorescenceNeg:<1:20St. Rita's Hospitalerum homogeneous pattern antinuclear antibody (ANDREIA) titerOrdered By: Tosha Patel on 11-24-2023 Homogenous nuclear Ab pattern (S) [Titer]N/[facility] Homogenous nuclear Ab pattern (S) [Titer]Serum homogeneous pattern antinuclear antibody (ANDREIA) titerSt. Rita's Hospitalerum nuclear antibody titerOrdered By: Tosha Patel on 52-45-6126Gpsgeay Ab (S) [Titer]Negative. [facility] CenterComment on above:Negative <1:80 Borderline 1:80 Positive >1:80ICAP nomenclature: AC-0For more information about Hep-2 cell patterns useDUHEM.org, the official website for theInternational Consensus on Antinuclear Antibody (ANDREIA)Patterns (ICAP).Performed at: [facility] [place], [id number] Director: José Manuel Petersen PhD, Phone: [phone] Ab (S) [Titer]Serum nuclear antibody titer.[facility] CenterComment on above:Negative <1:80 Borderline 1:80 Positive >1:80ICAP nomenclature: AC-0For more information about Hep-2 cell patterns useDUHEM.org, the official website for theInternational Consensus on Anti nuclear Antibody (ANDREIA)Patterns (ICAP).Performed at: [facility] [place], [id number] Director: José Manuel Petersen PhD, Phone: [phone] or plasma rheumatoid factor measurement (units/volume)Ordered By: Tosha Patel on 37-69-2857Cgwzqcmtgv factor Qn[IU]/mL<14.0[facility] CenterComment on above:Performed at: [facility] [place], [place] [id number] Director: José Manuel Petersen PhD, Phone: [phone] factor QnSerum or plasma rheumatoid factor measurement (units/volume)<14.0[facility] CenterComment on above:Performed at: [facility] [place], [place] [id number] Director: José Manuel Petersen PhD, Phone: [phone] HEMOGLOBINon 71-32-6170TjA5a (Bld) [Mass fraction]9.8 %[place] [facility] Other Glucose - FINGER STICKon 93-20-8062Udwftxu [Mass/Vol] 116 mg/dLNost. louis va medical center [facility] Other HbA1c (Bld) [Mass fraction]on 51-32-0102S9O HEMOGLOBIN [employer] Other Glucose Glucometer (BldC) [Mass/Vol]Ordered By: Anthony Corbin on 26-66-4787Qjunvwg [Mass/Vol]131 mg/dLMet[facility]health [facility] Medical Center Comment on above:Random Glucose Reference Range is dependent on time and content of last meal. Glucose of more than 200 mg/dL in a nonstressed, ambulatory subject supports the diagnosis of Diabetes Mellitus.Automated erythrocytes count in urine sediment (number/area)Ordered By: Irma Duran on 55-21-4986XQL Auto (Urine sed) [#/Area]0-1 [HPF]0-4FKindred HealthcareAutomated leukocytes count in urine sediment (number/area)Ordered By: Irma Duran on 19-01-6905LBX Auto (Urine sed) [#/Area]5-9 [HPF]0-4FKindred HealthcareBasophils Auto (Bld) [#/Vol]Ordered By: Irma Duran on 11-02-2023 Basophils (Bld) [#/Vol]0.0 10*3/uL0.0-0.2FKindred Healthcare Basophils/100 WBC Auto (Bld)Ordered By: Irma Duran on 11-02-2023 Basophils/100 WBC (Bld)0.6 %.[facility] CenterBilirubin Test strip Ql (U)Ordered By: Irma Duran on 12-41-5555Tzghoiggd Ql (U)Negative NegativeMetrohealth [facility] Heights Medical CenterCalcium [Mass/volume] in Serum or PlasmaOrdered By: Irma Duran on 96-30-4397Qavrpfn [Mass/Vol]8.6 mg/dL 8.6-10.3FKindred HealthcareCarbon dioxide, total [Moles/volume] in Serum or PlasmaOrdered By: Irma Duran on 00-49-2990VR2 [Moles/Vol]24.3 mmol/L21.0-31.0[facility] CenterChloride [Moles/volume] in Serum or PlasmaOrdered By: Irma Duran on 09-06-3113Kbsluvbe [Moles/Vol]104 mmol/O73-063PdytiisxbMet[facility]health [facility] Heights Medical CenterColor Auto (U)Ordered By: Irma Duran on 30-80-7600Jexsm (U)YellowYellowMetrohealth [facility] Medical Center Creatinine [Mass/volume] in Serum or PlasmaOrdered By: Irma Duran on 85-68-6306Pcnshqxfqc [Mass/Vol]0.63 mg/dL0.60-1.20[facility] CenterEosinophils Auto (Bld) [#/Vol]Ordered By: Irma Duran on 11-02-2023 Eosinophils (Bld) [#/Vol]0.0 10*3/uL0.0-0.45[facility] Eosinophils/100 WBC Auto (Bld)Ordered By: Irma Duran on 11-02-2023 Eosinophils/100 WBC (Bld)0.4 %.[facility] CenterErythrocyte distribution width Auto (RBC) [Ratio]Ordered By: Irma Duran on 11-02-2023 Erythrocyte distribution width (RBC) [Ratio]15.6 %11.9-15.3FKindred HealthcareGlucose [Mass/volume] in Serum or PlasmaOrdered By: Irma Duran on 27-37-3262Qkivjco [Mass/Vol]186 mg/gA00-056UkiipmukeMetrohealth [facility] Heights Medical CenterComment on above:ADA recommended reference rangeRandom Glucose Reference Range is dependent on time and content of last meal. Glucose of more than 200 mg/dL in a nonstressed, ambulatory subject supports the diagnosisof Diabetes Mellitus.Hematocrit Auto (Bld) [Volume fraction]Ordered By: Irma Duran on 64-20-0387Pgyllnedrq (Bld) [Volume fraction]36.7 %34.0-46.4 [facility] CenterHemoglobin [Mass/volume] in BloodOrdered By: Irma Duran on 28-94-8043Bkfwyqiygp (Bld) [Mass/Vol]12.2 g/dL11.8-15.4 [facility] CenterKetones Auto test strip (U) [Mass/Vol]Ordered By: Irma Duran on 38-70-5306Sokgjmx (U) [Mass/Vol]TraceNegativeMet[facility]health [facility] Medical CenterLaboratory - UrinalysisOrdered By: Irma Duran on 45-54-3977Pttrjei casts LM Ql (Urine sed)0-8 [LPF]0-8[facility] CenterLeukocytes [#/volume] corrected for nucleated erythrocytes in Blood by Automated counOrdered By: Irma Duran on 59-00-4761CQF corrected for nucl RBC Auto (Bld) [#/Vol]5.2 10*3/uL3.8-11.6FKindred Healthcare Lymphocytes Auto (Bld) [#/Vol]Ordered By: Irma Duran on 11-02-2023 Lymphocytes (Bld) [#/Vol]1.6 10*3/uL1.00-4.8[facility] Lymphocytes/100 WBC Auto (Bld)Ordered By: Irma Duran on 11-02-2023 Lymphocytes/100 WBC (Bld)29.8 %.[facility] HospitalH Auto (RBC) [Entitic mass]Ordered By: Irma Duran on 84-86-7802XBA (RBC) [Entitic mass] 30.5 pg24.7-34.3FKindred HealthcareMCHC Auto (RBC) [Mass/Vol] Ordered By: Irma Duran on 26-46-1014SSJR (RBC) [Mass/Vol]33.2 g/dL 32.0-35.0[facility] CenterMCV Auto (RBC) [Entitic vol]Ordered By: Irma Duran on 96-08-5683HOB (RBC) [Entitic vol]91.8 tK69-524RofnucqtlMetrohealth Cleveland Heights Medical CenterMonocytes Auto (Bld) [#/Vol]Ordered By: Irma Duran on 61-00-7277Mnpfxnrja (Bld) [#/Vol]0.6 10*3/uL0.0-0.8[facility] CenterMonocytes/100 WBC Auto (Bld)Ordered By: Irma Duran on 11-02-2023 Monocytes/100 WBC (Bld)11.5 %.[facility] CenterNeutrophils Auto (Bld) [#/Vol]Ordered By: Irma Duran on 17-51-5238Zwrvbwvfhkj (Bld) [#/Vol] 3.0 10*3/uL1.8-7.7FKindred HealthcareNeutrophils/100 WBC Auto (Bld)Ordered By: Irma Duran on 19-16-6807Cqjpyquxadr/100 WBC (Bld)57.7 %. [facility] CenterNitrite Test strip Ql (U)Ordered By: Irma Duran on 57-69-9248Upsstbw Ql (U)NegativeNegTriHealth McCullough-Hyde Memorial HospitalNo Panel InformationOrdered By: Anthony Alaniz on 48-38-9234Dwqmmfg Glucose CommentGlu2: cleaned meterMetrohealth [facility] Heights Medical CenterNo Panel Information Ordered By: Irma Duran on 84-16-8525Ubmlzjrsm GFR (CKD-EPI)> 60.0 mL/Min [facility] CenterPharmacy Creatinine Clearance (Chem47.65 [facility] CenterNucleated erythrocytes [Presence] in Blood by Automated countOrdered By: Irma Duran on 98-84-1060Kxltankzk RBC Auto Ql (Bld)0.0 /100{WBC}0-0.5FKindred HealthcarePlatelet mean volume Auto (Bld) [Entitic vol]Ordered By: Irma Duran on 31-42-8026Egmdosdp mean volume (Bld) [Entitic vol]8.3 fL6.3-10.7FKindred Healthcare Platelets Auto (Bld) [#/Vol]Ordered By: Irma Duran on 55-35-9434Wdtluzvsp (Bld) [#/Vol]252 10*3/qA148-447HfmuxjtuzMetrohealth Cleveland Heights Medical CenterPotassium [Moles/volume] in Serum or PlasmaOrdered By: Irma Duran on 11-02-2023 Potassium [Moles/Vol]4.1 mmol/L3.5-5.1FKindred HealthcareProtein Auto test strip (U) [Mass/Vol]Ordered By: Irma Duran on 16-19-0169Hrzxila (U) [Mass/Vol]NegativeNegativeMetrohealth Cleveland Heights Medical CenterRBC Auto (Bld) [#/Vol]Ordered By: Irma Duran on 06-30-9905OVQ (Bld) [#/Vol]4.00 10*6/uL 3.60-5.00St. [facility]'s Hospitalerum or plasma anion gap determinationOrdered By: Irma Duran on 75-12-3044Ggwus gap [Moles/Vol]8.8 mmol/L6.0-15.0St. Rita's Hospitalodium [Moles/volume] in Serum or PlasmaOrdered By: Irma Duran on 02-75-9893Nlnuxo [Moles/Vol]133 mmol/L 136-145St. Rita's Hospitalpecific gravity Auto test strip (U) [Rel density]Ordered By: Irma Druan on 95-43-7340Gklyuzbr gravity (U) [Rel density]1.0101.001-1.030St. Rita's Hospitalquamous epithelial cells detection in urine sediment by light microscopyOrdered By: Irma Duran on 87-25-4861Neijdyhgoh cells.squamous LM Ql (Urine sed)0-1 [HPF]0-2 [facility] CenterUrea nitrogen [Mass/volume] in Serum or Plasma Ordered By: Irma Duran on 27-70-8693Vvaj nitrogen [Mass/Vol]7 mg/dL7-25 [facility] CenterUrine bacteria detection by automated method Ordered By: Irma Duran on 84-67-8170Awadfnam Auto Ql (U)None seenNone Seen [facility] CenterUrine clarity by refractometry automatedOrdered By: Irma Duran 23-98-3819Seayaat Refractometry automated (U)ClearClear [facility] CenterUrine culture routineOrdered By: Irma Duran on 10-58-8404Uvyshnvt identified Cx Nom (U)2 DaysMetrohealth [facility] Heights Medical CenterUrine glucose measurement by automated test strip (mass/volume) Ordered By: Irma Duran on 84-35-0572Jezybfh Auto test strip (U) [Mass/Vol] Normal mg/dLNormalMetrohealth [facility] Heights Medical CenterUrine hemoglobin detection by automated test stripOrdered By: Irma Duran on 43-22-8826Oanlefhyqc Auto test strip Ql (U)NegativeNegativeMet[facility]health [facility] Heights Medical CenterUrine leukocyte esterase detection by automated test stripOrdered By: Irma Duran on 40-50-7055Tynubdwbg esterase Auto test strip Ql (U)2+NegativeMetrohealth [facility] Heights Medical CenterUrobilinogen Auto test strip (U) [Mass/Vol]Ordered By: Irma Duran on 09-85-2924Nkacctsjyzkr (U) [Mass/Vol]Normal mg/dLNormal [facility] CenterWBC Auto (Bld) [#/Vol]Ordered By: Irma Duran on 65-50-2699NAI (Bld) [#/Vol]5.2 10*3/uL3.8-11.6FKindred HealthcarepH Auto test strip (U)Ordered By: Irma Duran on 31-96-0198gN (U)7.5 [pH]5.0-9.0[facility] CenterBand form neutrophils/100 WBC Manual cnt (Bld)Ordered By: Irma Duran on 64-07-7613Xhmj form neutrophils/100 WBC (Bld)1 %0-5FKindred HealthcareBasophils/100 WBC Manual cnt (Bld)Ordered By: Irma Duran on 70-79-8295Hxoxuolil/100 WBC (Bld)0 %0-2FKindred HealthcareEosinophils/100 WBC Manual cnt (Bld) Ordered By: Irma Duran on 61-55-1150Pgvfitqbikc/100 WBC (Bld)3 %1-3 [facility] CenterHypochromia LM Ql (Bld)Ordered By: Irma Duran on 87-08-4778Olgobmlhgtf Ql (Bld)SlightMetrohealth [facility] Heights Medical CenterLymphocytes/100 WBC Manual cnt (Bld)Ordered By: Irma Duran on 20-01-0701Cpvjudppoew/100 WBC (Bld)24 %18-42[facility] Metamyelocytes/100 WBC Manual cnt (Bld)Ordered By: Irma Duran on 36-69-8884Biadqjuteyktsg/100 WBC (Bld)4 %0-0[facility] Monocytes/100 WBC Manual cnt (Bld)Ordered By: Irma Duran on 10-28-2023 Monocytes/100 WBC (Bld)11 %2-11[facility] CenterMyelocytes/100 WBC Manual cnt (Bld)Ordered By: Irma Duran on 99-38-4267Akpwzdzdat/100 WBC (Bld)1 %0-0[facility] CenterPlatelet adequacy [Presence] in Blood by Light microscopyOrdered By: Irma Duran on 82-05-0322Ovhnrphek LM Ql (Bld)NormalNormTwin City HospitalPlatelet morphology finding [Identifier] in BloodOrdered By: Irma Duran on 02-03-6868Yfskguio morphology finding Nom (Bld)NormalNormTwin City HospitalRBC morphologyOrdered By: Irma Duran on 31-37-6577QBU morphology finding Nom (Bld)N/[facility] Hospital DaytonRouleaux detectionOrdered By: Irma Duran on 36-60-4693Iuvbsflz LM Ql (Bld)[facility]aritan Hospitalegmented neutrophils/100 WBC Manual cnt (Bld)Ordered By: Irma Duran on 77-56-6198Parejbviu neutrophils/100 WBC (Bld)56 %50-70[facility] CenterCOVID CepheidOrdered By: Anthony Alaniz on 49-84-0070HPIK-CoV-2 (COVID-19) Ab IA QlPositiveNegativeMet[facility]health [facility] Medical CenterComment on above:This is a duplicate Cepheid Xpert Xpress CoV-2/Flu/RSV Plus RNA by RT-PCR result to be used for statistical tracking purpose only.SARS-CoV-2 (COVID-19) RNA GARY+probe Ql (Unsp spec)[facility] CenterUrine culture routineOrdered By: Irma Duran on 23-37-7591Qrppcujb identified Cx Nom (U)2 DaysMet[facility]health [facility] Heights Medical CenterNo Panel InformationOrdered By: Anthony Alaniz on 60-15-5537Jwzhlqh Glucose #2 CommentWill notify /[facility]omerene HospitalAnisocytosis LM Ql (Bld)Ordered By: Irma Duran on 79-41-9514Nvezwlctbfal Ql (Bld)[facility]orial HospitalBurr cells [Presence] in Blood by Light microscopyOrdered By: Irma Duran on 57-71-3630Knpz cells LM Ql (Bld)[facility]orial HospitalGiant platelets/100 leukocytes [Ratio] in Blood by Manual countOrdered By: Irma Duran on 04-41-7185Xzavg platelets/100 WBC Manual cnt (Bld) [Ratio]1 /100{WBC}[facility] CenterMacrocytes LM Ql (Bld)Ordered By: Irma Duran on 72-87-6706Cmtnivllie Ql (Bld)[facility] HospitalMicrocytes LM Ql (Bld)Ordered By: Irma Duran on 10-22-2023 Microcytes Ql (Bld)[facility]orial HospitalOvalocyte detection Ordered By: Irma Duran on 85-74-2574Wwqckmohhm LM Ql (Bld)[facility] HospitalPoikilocytosis [Presence] in Blood by Light microscopy Ordered By: Irma Duran on 10-54-4421Aiuoswtflnulju LM Ql (Bld)[facility] SystemPolychromasia [Presence] in Blood by Light microscopyOrdered By: Irma Duran on 10-19-4345Zohtuhtuefclh LM Ql (Bld) Memorial HospitalRed blood cell stomatocyte detection Ordered By: Irma Duran on 30-32-6489Btxwsrybdldz LM Ql (Bld)[facility] SystemAlanine aminotransferase [Enzymatic activity/volume] in Serum or PlasmaOrdered By: Anthony Alaniz on 25-66-6009MFQ [Catalytic activity/Vol]6 U/L7-52[facility] CenterAlbumin [Mass/volume] in Serum or Plasma by Bromocresol green (BCG) dye binding metho Ordered By: Anthony Alaniz on 97-98-7137Sqlektf BCG dye [Mass/Vol]2.6 g/dL3.5-5.7 [facility] CenterAlkaline phosphatase [Enzymatic activity/volume] in Serum or PlasmaOrdered By: Anthony Alaniz on 87-30-4779BTB [Catalytic activity/Vol]50 U/F74-404QwzytieqrMet[facility]health [facility] Medical CenterAspartate aminotransferase [Enzymatic activity/volume] in Serum or PlasmaOrdered By: Anthony Alaniz on 34-00-7704QFX [Catalytic activity/Vol]12 U/T47-31OxbvocmyxMetrohealth Cleveland Heights Medical CenterBilirubin.total [Mass/volume] in Serum or PlasmaOrdered By: Anthony Alaniz on 78-73-6047Esoblsojf [Mass/Vol]0.7 mg/dL0.3-1.0[facility] CenterGlobulin Calc (S) [Mass/Vol]Ordered By: Anthony Alaniz on 05-31-4447Frvpxnae (S) [Mass/Vol]2.2 g/dLMet[facility]health [facility] Center Prealbumin [Mass/volume] in Serum or PlasmaOrdered By: Anthony Alaniz on 67-74-3640Puqkyyjwiy [Mass/Vol]9.8 mg/dL17.0-34.0[facility] CenterProtein [Mass/volume] in Serum or PlasmaOrdered By: Anthony Alaniz on 85-72-6110Gsrnshd [Mass/Vol]4.8 g/dL6.4-8.9[facility] Serum or plasma albumin/globulin mass ratioOrdered By: Anthony Alaniz on 92-09-9365Ntlgfpe/Globulin [Mass ratio]1.2 {ratio}[facility] CenterGlucose Glucometer (BldC) [Mass/Vol]Ordered By: Chin Rodarte on 10-15-2023 Glucose [Mass/Vol]263 mg/dLMetrohealth Cleveland Heights Medical CenterComment on above: Random Glucose Reference Range is dependent on time and content of last meal. Glucose of more than 200 mg/dL in a nonstressed, ambulatory subject supports the diagnosis of Diabetes Mellitus.No Panel InformationOrdered By: Chin Rodarte on 98-30-5618Suggxeh Glucose CommentGlu2: cleaned meterMetrohealth Cleveland Heights Medical CenterBasophils Auto (Bld) [#/Vol]Ordered By: Epi Booth on 10-14-2023 Basophils (Bld) [#/Vol]0.1 10*3/uL0.0-0.2FKindred Healthcare Basophils/100 WBC Auto (Bld)Ordered By: Epi Booth on 47-42-2602Hwuxivkge/100 WBC (Bld)0.5 %.[facility] CenterCalcium [Mass/volume] in Serum or PlasmaOrdered By: Epi Booth on 25-02-4178Mzxpucl [Mass/Vol]8.9 mg/dL 8.6-10.3FKindred HealthcareCarbon dioxide, total [Moles/volume] in Serum or PlasmaOrdered By: Epi Booth on 79-77-6921QA5 [Moles/Vol]27.5 mmol/L 21.0-31.0[facility] CenterChloride [Moles/volume] in Serum or PlasmaOrdered By: Epi Booth on 93-92-9791Ojehcmwl [Moles/Vol]98 mmol/L98-107 [facility] CenterCreatinine [Mass/volume] in Serum or Plasma Ordered By: Epi Booth 59-37-1220Fcocmxzqwk [Mass/Vol]0.66 mg/dL0.60-1.20 [facility] CenterEosinophils Auto (Bld) [#/Vol]Ordered By: Epi Booth 69-88-5796Pauobulpoqi (Bld) [#/Vol]0.0 10*3/uL0.0-0.45[facility] CenterEosinophils/100 WBC Auto (Bld)Ordered By: Epi Booth on 96-50-7155Facjonvzqfo/100 WBC (Bld)0.4 %.[facility] Erythrocyte distribution width Auto (RBC) [Ratio]Ordered By: Epi Booth 33-03-2285Gizuiapbkao distribution width (RBC) [Ratio]13.9 %11.9-15.3FKindred HealthcareGlucose [Mass/volume] in Serum or PlasmaOrdered By: Epi Booth 72-02-3276Mjrnrbf [Mass/Vol]242 mg/rH14-815WusbxccfnMetrohealth Cleveland Heights Medical CenterComment on above:ADA recommended reference rangeRandom Glucose Reference Range is dependent on time and content of last meal. Glucose of more than 200 mg/dL in a nonstressed, ambulatory subject supports the diagnosisof Diabetes Mellitus.Hematocrit Auto (Bld) [Volume fraction]Ordered By: Epi Booth on 26-62-6131Zeotuzqisu (Bld) [Volume fraction]34.4 %34.0-46.4FKindred HealthcareHemoglobin [Mass/volume] in BloodOrdered By: Epi Booth on 97-48-1671Cqatkkbwfk (Bld) [Mass/Vol]11.3 g/dL11.8-15.4FKindred HealthcareLeukocytes [#/volume] corrected for nucleated erythrocytes in Blood by Automated counOrdered By: Epi Booth on 17-16-2137LQO corrected for nucl RBC Auto (Bld) [#/Vol]11.7 10*3/uL3.8-11.6FKindred Healthcare Lymphocytes Auto (Bld) [#/Vol]Ordered By: Epi Booth on 84-29-2629Ltlklwlawrd (Bld) [#/Vol]1.7 10*3/uL1.00-4.8[facility] CenterLymphocytes/100 WBC Auto (Bld)Ordered By: Epi Booth on 94-93-3319Juzkgbjldep/100 WBC (Bld) 14.4 %.[facility] [facility] Auto (RBC) [Entitic mass]Ordered By: Epi Booth on 07-60-4943KYL (RBC) [Entitic mass]29.7 pg24.7-34.3FKindred HealthcareMCHC Auto (RBC) [Mass/Vol]Ordered By: Epi Booth on 31-07-8169OUCI (RBC) [Mass/Vol]32.9 g/dL32.0-35.0[facility] CenterMCV Auto (RBC) [Entitic vol]Ordered By: Epi Booth on 40-76-3088NDL (RBC) [Entitic vol]90.5 yT43-443ZmjxrhnlvMetrohealth Cleveland Heights Medical CenterMonocytes Auto (Bld) [#/Vol]Ordered By: Epi Booth on 65-89-4279Iezxqtpnl (Bld) [#/Vol]2.1 10*3/uL0.0-0.8[facility] CenterMonocytes/100 WBC Auto (Bld) Ordered By: Epi Booth on 73-52-2777Jskihteac/100 WBC (Bld)17.8 %.[facility] CenterNeutrophils Auto (Bld) [#/Vol]Ordered By: Epi Booth on 17-46-3704Xotrbpjirkp (Bld) [#/Vol]7.9 10*3/uL1.8-7.7FKindred HealthcareNeutrophils/100 WBC Auto (Bld)Ordered By: Epi Booth on 10-14-2023 Neutrophils/100 WBC (Bld)66.9 %.[facility] CenterNo Panel InformationOrdered By: Tosha Harlan-Leonilaursula on 96-24-2097YE 27.2928.1 U/mL0.0-38.6 [facility] CenterComment on above:[employer] CognovantauTriplify Immunochemiluminometric Methodology (ICMA)Values obtained with different assay methods or kits cannotbe used interchangeably. Results cannot be interpreted asabsolute evidence of the presence or absence of malignantdisease.Performed at: [address] [id number] Director: José Manuel Petersen PhD, Phone: [phone] Panel InformationOrdered By: Epi Booth on 33-82-0459Sbytvuqce GFR (CKD-EPI)> 60.0 mL/MinMetrohealth [facility] Creatinine Clearance (Chem47.62[facility] Nucleated erythrocytes [Presence] in Blood by Automated countOrdered By: Epi Booth on 76-61-8834Ofqrpbkcv RBC Auto Ql (Bld)0.0 /100{WBC}0-0.5FKindred HealthcarePlatelet adequacy [Presence] in Blood by Light microscopy Ordered By: Epi Booth on 76-46-4881Glqesgsdn LM Ql (Bld)NormalWilson Memorial HospitalPlatelet mean volume Auto (Bld) [Entitic vol]Ordered By: Epi Booth on 08-08-7045Xqslqahx mean volume (Bld) [Entitic vol]9.0 fL6.3-10.7 [facility] CenterPlatelet morphology finding [Identifier] in BloodOrdered By: Epi Booth on 50-30-3097Kljgrctb morphology finding Nom (Bld) NormalWilson Memorial HospitalPlatelets Auto (Bld) [#/Vol]Ordered By: Epi Booth on 10-34-3936Gvnbzkydo (Bld) [#/Vol]225 10*3/oK723-737 [facility] CenterPotassium [Moles/volume] in Serum or Plasma Ordered By: Epi Booth on 43-47-1241Ylqcktpxg [Moles/Vol]4.0 mmol/L3.5-5.1 [facility] CenterRBC Auto (Bld) [#/Vol]Ordered By: Epi Booth on 31-83-8504XLW (Bld) [#/Vol]3.80 10*6/uL3.60-5.00[facility] morphologyOrdered By: Epi Booth on 34-78-3004FTM morphology finding Nom (d)NormalNormalSt. Rita's Hospitalerum or plasma anion gap determinationOrdered By: Epi Booth on 99-27-5921Cluls gap [Moles/Vol]9.5 mmol/L6.0-15.0St. Rita's Hospitalerum or plasma cancer antigen 125 (CA-125) measurement (units/volume)Ordered By: Tosha Patel on 10-14-2023 Cancer Ag 125 Qn33.3 [arb'U]/mL0.0-38.1FKindred HealthcareComment on above:[employer] Electrochemiluminescence Immunoassay(ECLIA)Values obtained with different assay methods or kits cannotbe used interchangeably. Results cannot be interpreted asabsolute evidence of the presence or absence of malignantdisease.Performed at: [address] [id number] Director: José Manuel Petersen PhD, Phone: [phone] or plasma cancer antigen 19-9 measurement (units/volume)Ordered By: Tosha Patel on 55-39-6721Vuqvbd Ag 19-9 Qn19 [arb'U]/mL0-35[facility] Comment on above:[employer] Electrochemiluminescence Immunoassay(ECLIA)Values obtained with different assay methods or kits cannotbe used interchangeably. Results cannot be interpreted asabsolute evidence of the presence or absence of malignantdisease.Serum or plasma carcinoembryonic antigen measurement (mass/volume)Ordered By: Tosha Patel on 10-14-2023 Carcinoembryonic Ag [Mass/Vol]2.0 ng/mL0.0-3.0[facility] Sodium [Moles/volume] in Serum or PlasmaOrdered By: Epi Booth on 10-14-2023 Sodium [Moles/Vol]131 mmol/H904-897TlzcedoscMetrohealth Cleveland Heights Medical CenterUrea nitrogen [Mass/volume] in Serum or PlasmaOrdered By: Epi Booth on 10-14-2023 Urea nitrogen [Mass/Vol]18 mg/dL7-25[facility] CenterWBC Auto (Bld) [#/Vol]Ordered By: Epi Booth on 02-11-2752YFU (Bld) [#/Vol]11.7 10*3/uL 3.8-11.6FKindred HealthcareGiant platelets/100 leukocytes [Ratio] in Blood by Manual countOrdered By: Epi Booth on 67-91-5764Hdbpa platelets/100 WBC Manual cnt (Bld) [Ratio]1 /100{WBC}[facility] CenterLymphocytes/100 WBC Manual cnt (Bld)Ordered By: Epi Booth on 10-13-2023 Lymphocytes/100 WBC (Bld)10 %18-42[facility] CenterMonocytes/100 WBC Manual cnt (Bld)Ordered By: Epi Booth on 50-64-7387Iznldgmzh/100 WBC (Bld)6 %2-11[facility] CenterPolychromasia [Presence] in Blood by Light microscopyOrdered By: Epi Booth on 65-01-9502Bkaynqlqhycaj LM Ql (Bld)SlightSt. Rita's Hospitalegmented neutrophils/100 WBC Manual cnt (Bld)Ordered By: Epi Booth on 52-59-5867Odghqsdyy neutrophils/100 WBC (Bld)84 %50-70[facility] CenterVariant lymphocytes/100 WBC Manual cnt (Bld)Ordered By: Epi Booth on 24-31-2132Xuldmlm lymphocytes/100 WBC (Bld)1 %0-12[facility] CenterAutomated erythrocytes count in urine sediment (number/area)Ordered By: Chin Rodarte on 47-11-8328WPL Auto (Urine sed) [#/Area]Innumerable [HPF]0-4FKindred Healthcare Automated leukocytes count in urine sediment (number/area)Ordered By: Chin Rodarte on 50-53-8422MHV Auto (Urine sed) [#/Area]Innumerable [HPF]0-4FKindred HealthcareBilirubin Test strip Ql (U)Ordered By: Chin oRdarte on 37-01-0395Fambntpow Ql (U)1+NegativeMetrohealth Cleveland Heights Medical CenterColor Auto (U)Ordered By: Chin Rodarte on 44-84-2410Zdaao (U)Dark yellowYellowMetrohealth Cleveland Heights Medical CenterKetones Auto test strip (U) [Mass/Vol]Ordered By: Chin Rodarte on 84-03-3054Luwdjnk (U) [Mass/Vol]TraceNegativeMet[facility]health [facility] Medical CenterLaboratory - UrinalysisOrdered By: Chin Rodarte on 10-12-2023 Hyaline casts LM Ql (Urine sed)0-8 [LPF]0-8[facility] Nitrite Test strip Ql (U)Ordered By: Chin Rodarte on 60-01-4574Knampnn Ql (U) PositiveNegativeMetrohealth [facility] Heights Medical CenterProtein Auto test strip (U) [Mass/Vol]Ordered By: Chin Rodarte on 86-49-3212Oelenlo (U) [Mass/Vol]300 mg/dL NegativeSt. Rita's Hospitalpecific gravity Auto test strip (U) [Rel density]Ordered By: Chin Rodarte on 46-10-0549Vzwpfnru gravity (U) [Rel density]1.0311.001-1.030St. Rita's Hospitalquamous epithelial cells detection in urine sediment by light microscopyOrdered By: Chin Rodarte on 07-41-3349Xkyrtlcuxk cells.squamous LM Ql (Urine sed)1-2 [HPF]0-2FKindred HealthcareUrine bacteria detection by automated methodOrdered By: Chin Rodarte on 44-05-8174Xejmlmqf Auto Ql (U)None seenNone SeenMetrohealth Cleveland Heights Medical CenterUrine clarity by refractometry automatedOrdered By: Chin Rodarte on 28-16-6034Pxvcsxg Refractometry automated (U)TurbidCleOhioHealth Grady Memorial HospitalUrine culture routineOrdered By: Chin Rodarte on 59-59-7199Vebrjznf identified Cx Nom (U)Jessica glabrataMetrohealth Cleveland Heights Medical CenterUrine glucose measurement by automated test strip (mass/volume) Ordered By: Chin Rodarte on 02-85-4960Mlqwcke Auto test strip (U) [Mass/Vol] Normal mg/dLNormTwin City HospitalUrine hemoglobin detection by automated test stripOrdered By: Chin Rodarte on 56-30-6782Aczvshxsnv Auto test strip Ql (U)3+NegativeMetrohealth Cleveland Heights Medical CenterUrine leukocyte esterase detection by automated test stripOrdered By: Chin Rodarte on 45-77-5287Rrjtlcghq esterase Auto test strip Ql (U)3+NegativeMetrohealth [facility] Urobilinogen Auto test strip (U) [Mass/Vol]Ordered By: Chin Rodarte on 53-35-4120Yklbcqecocjn (U) [Mass/Vol]Normal mg/dLNoProMedica Toledo HospitalpH Auto test strip (U)Ordered By: Chin Rodarte on 97-89-3064yV (U) 5.5 [pH]5.0-9.0[facility] CenterActivated partial thromboplastin time (aPTT) in platelet poor plasma by coagulation aOrdered By: Ketty Brand on 36-01-6183tUIJ Coag (PPP) [Time]32.0 s25.1-36.5FKindred HealthcareComment on above:A hematocrit value greater than 55% may lead to inaccurate results in coagulation testing. Patientshaving hematocrit values >55% require a special collection tube for coagulation studies. Please contact the laboratory at [phone] for redraw instructions.Basophils Auto (Bld) [#/Vol] Ordered By: Ketty Brand on 27-32-5286Ezpfnhasz (Bld) [#/Vol]0.1 10*3/uL 0.0-0.2FKindred HealthcareBasophils/100 WBC Auto (Bld)Ordered By: Ketty Brand on 43-51-3010Bfqgsqtps/100 WBC (Bld)1.0 %.[facility] CenterCalcium [Mass/volume] in Serum or PlasmaOrdered By: Ketty Brand on 05-52-8423Enxbdqg [Mass/Vol]9.5 mg/dL8.6-10.3FKindred HealthcareCarbon dioxide, total [Moles/volume] in Serum or PlasmaOrdered By: Ketty Brand on 32-49-5161PY4 [Moles/Vol]27.4 mmol/L21.0-31.0[facility] CenterChloride [Moles/volume] in Serum or PlasmaOrdered By: Ketty Brand on 70-57-8887Ggznjukc [Moles/Vol]100 mmol/E45-524XozergaxcMetrohealth [facility] Heights Medical CenterCreatinine [Mass/volume] in Serum or PlasmaOrdered By: Ketty Brand on 42-05-8450Luqbbzudpn [Mass/Vol]0.77 mg/dL0.60-1.20[facility] CenterEosinophils Auto (Bld) [#/Vol]Ordered By: Ketty Brand 51-21-9320Oxepdcmnnbz (Bld) [#/Vol]0.2 10*3/uL0.0-0.45[facility] CenterEosinophils/100 WBC Auto (Bld)Ordered By: Ketty Brand on 70-41-9456Gcazxctffvs/100 WBC (Bld)1.7 %.[facility] Erythrocyte distribution width Auto (RBC) [Ratio]Ordered By: Ketty Brand on 74-46-6470Xksizaqapbm distribution width (RBC) [Ratio]14.2 %11.9-15.3FKindred HealthcareGlucose [Mass/volume] in Serum or PlasmaOrdered By: Ketty Brand 54-90-2427Xzjsgoe [Mass/Vol]418 mg/rW90-307UiczpdnkmMetrohealth Cleveland Heights Medical CenterComment on above:ADA recommended reference rangeRandom Glucose Reference Range is dependent on time and content of last meal. Glucose of more than 200 mg/dL in a nonstressed, ambulatory subject supports the diagnosisof Diabetes Mellitus.Hematocrit Auto (Bld) [Volume fraction]Ordered By: Ketty Brand on 94-30-0207Lmgykipqam (Bld) [Volume fraction]44.1 %34.0-46.4FKindred HealthcareHemoglobin [Mass/volume] in BloodOrdered By: Ketty Brand on 91-55-2612Vwxwqjwrkz (Bld) [Mass/Vol]14.8 g/dL11.8-15.4FKindred HealthcareINR in Platelet poor plasma by Coagulation assayOrdered By: Ketty Brand on 50-39-5624AAC Coag (PPP) [Relative time]1.0 {INR} [facility] CenterComment on above:INR Therapeutic Range A) Pre- and Peroperative OAT started two weeks before surgery. NOT HIP SURGERY: 1.5 - 2.5 HIP SURGERY: 2 - 3B) Primary and secondary prevention of venous THROMBOSIS: 2 - 3C) Active venous thrombosis, pulmonary embolismand prevention of recurrent venous thrombosis: 2 - 3D) Prevention of arterial thromboembolismincluding patients with mechanical heart valves: 3 - 4.5Leukocytes [#/volume] corrected for nucleated erythrocytes in Blood by Automated counOrdered By: Ketty Brand on 77-65-6605EGR corrected for nucl RBC Auto (Bld) [#/Vol]10.1 10*3/uL3.8-11.6 [facility] CenterLymphocytes Auto (Bld) [#/Vol]Ordered By: Ketty Brand on 99-37-1937Zblitbbgzey (Bld) [#/Vol]2.2 10*3/uL1.00-4.8 [facility] CenterLymphocytes/100 WBC Auto (Bld)Ordered By: Ketty Brand on 63-15-1411Fxxdlmqdati/100 WBC (Bld)21.3 %.[facility] Auto (RBC) [Entitic mass]Ordered By: Ketty Brand on 10-39-2268GTM (RBC) [Entitic mass]30.4 pg24.7-34.3FDunlap Memorial HospitalHC Auto (RBC) [Mass/Vol]Ordered By: Ketty Brand on 62-42-0195NNFS (RBC) [Mass/Vol]33.6 g/dL32.0-35.0[facility] Auto (RBC) [Entitic vol]Ordered By: Ketty Brand on 80-48-1824OJR (RBC) [Entitic vol]90.5 dN75-661EyqhgrnqdMetrohealth Cleveland Heights Medical CenterMonocyte distribution width [Entitic volume] in Blood by AutomatedOrdered By: Ketty Brand on 10-11-2023 Monocyte distribution width Auto (Bld) [Entitic vol]17.73 %0.00-20.00[facility] CenterMonocytes Auto (Bld) [#/Vol]Ordered By: Ketty Brand on 27-29-8292Ygqbtlqor (Bld) [#/Vol]0.8 10*3/uL0.0-0.8[facility] CenterMonocytes/100 WBC Auto (Bld)Ordered By: Ketty Brand on 10-11-2023 Monocytes/100 WBC (Bld)8.4 %.[facility] CenterNeutrophils Auto (Bld) [#/Vol]Ordered By: Ketty Brand on 73-52-5066Tfjecouvchu (Bld) [#/Vol] 6.9 10*3/uL1.8-7.7FKindred HealthcareNeutrophils/100 WBC Auto (Bld)Ordered By: Ketty Brand on 00-38-3121Ytkkqgbpeiq/100 WBC (Bld)67.6 %. [facility] CenterNo Panel InformationOrdered By: Ketty Brand on 11-30-1143Iupwtuwkk GFR (CKD-EPI)> 60.0 mL/MinMetrohealth [facility] Heights Medical CenterPharmacy Creatinine Clearance (ChemN/[facility] Nucleated erythrocytes [Presence] in Blood by Automated countOrdered By: Ketty Brand on 43-77-5963Haxomeozj RBC Auto Ql (Bld)0.1 /100{WBC}0-0.5 [facility] CenterPlatelet mean volume Auto (Bld) [Entitic vol] Ordered By: Ketty Brand on 71-45-5871Tggamwsz mean volume (Bld) [Entitic vol]8.4 fL6.3-10.7FKindred HealthcarePlatelets Auto (Bld) [#/Vol] Ordered By: Ketty Brand on 59-52-3728Bcvrugoiz (Bld) [#/Vol]323 10*3/uL 150-450[facility] CenterPotassium [Moles/volume] in Serum or PlasmaOrdered By: Ketty Brand on 97-61-5404Kkfrpojlo [Moles/Vol]4.5 mmol/L 3.5-5.1FKindred HealthcareProthrombin time (PT)Ordered By: Ketty Brand on 25-68-3958QC Coag (PPP) [Time]12.3 s9.0-12.9[facility] CenterComment on above:A hematocrit value greater than 55% may lead to inaccurate results in coagulation testing. Patientshaving hematocrit values >55% require a special collection tube for coagulation studies. Please c ontact the laboratory at [phone] for redraw instructions.RBC Auto (Bld) [#/Vol]Ordered By: Ketty Brand on 00-28-1420JGD (Bld) [#/Vol]4.87 10*6/uL 3.60-5.00St. Rita's Hospitalerum or plasma anion gap determinationOrdered By: Ketty Brand on 52-57-7438Nkdhe gap [Moles/Vol]10.1 mmol/L6.0-15.0St. Rita's Hospitalodium [Moles/volume] in Serum or PlasmaOrdered By: Ketty Brand on 19-91-9743Nbsuhi [Moles/Vol]133 mmol/L 136-145[facility] CenterUrea nitrogen [Mass/volume] in Serum or PlasmaOrdered By: Ketty Brand on 89-90-7160Prgc nitrogen [Mass/Vol]11 mg/dL 7-25[facility] CenterWBC Auto (Bld) [#/Vol]Ordered By: Ketty Brand on 76-33-8826BHK (Bld) [#/Vol]10.1 10*3/uL3.8-11.6FKindred HealthcareUrine culture routineOrdered By: Mica Hook on 09-08-2023 Bacteria identified Cx Nom (U)bacilli - 2 DaysMetrohealth [facility] Center XR elbow LT 2Von 74-80-0859VA elbow LT 2VFIRELANDChildren's Hospital of Columbus [employer]WORKS Other XR elbow LT 2VFRSc[facility]s [facility] [employer] Other XR elbow LT [id number] [facility] [employer] Other XR elbow LT 2VSanddoug [facility]63246TuzjjUniversal Health Services [employer] Other XR elbow LT 2VXRVanderbilt Transplant Center [employer] Other XR elbow LT 2VSGeneral [facility] [employer] Other XR elbow LT 2VPatient: Heidi Palmer MR#: [id number] [facility] [employer] Other XR elbow LT 2W27EtpxaUniversal Health Services [employer] Other XR elbow LT 2VDOB: 1940 Acct:[id number] [employer] Other XR elbow LT 2VAge/Sex: 83 / F ADM Date: 02/16/23[place] [employer] Other XR elbow LT 2VLoc: SOXD Room: Type: [facility] [employer] Other XR elbow LT 2VAttending Dr: Uma Mccauley [facility] [employer] Other xr elbow LT 2VCopies to: Uma Mccauley MDCoffeeville [employer] Other XR elbow LT 2VOrdering Provider: Uma Mccauley MD [place] [employer] Other XR elbow LT 2VDate of Service: 02/16/23[place] [employer] Other XR elbow LT 2VAccession #: ([id number]) XR/XR elbow LT 2V: Nondisplaced fracture of neck of left radius,[employer] Other XR elbow LT 2Vsubsequent [facility] [employer] Other XR elbow LT 2VLEFT ELBOW - 2 viewsNost. louis va medical center [employer] Other XR elbow LT 2VCLINICAL HISTORY: Follow-up left radial neck fractureCoffeeville [employer] [facility] Other XR elbow LT 2VCOMPARISON: Left elbow 01/06/2023[place] [employer] Other XR elbow LT 2VFINDINGS:[employer] Other XR elbow LT 2VRadial neck fracture unchanged in alignment with interval sclerosis suggestive of healing response.[employer] Other XR elbow LT 2VNo new fractures. Mild degenerative change. No joint effusion.[employer] Other XR elbow LT 2VORDER #: [id number] XR/XR elbow LT 2V [place] [employer] Other XR elbow LT 2VIMPRESSION:[employer] Other XR elbow LT 2VHEALING RADIAL NECK FRACTURE.[place] [employer] Other XR elbow LT 2VImpression dictated by: Anthony Benson Jr., D.O.02/16/2023 12:21 [facility] [employer] Other xr elbow LT 2VDictation Location: [address] [employer] Other xr elbow LT 2VTranscribed By: CHEKO 02/16/[address] [place] [address] [employer] Other xr elbow LT 2VDictated By: Anthony Benson Jr, DO 02/16/[address] [place] [address] [employer] Other xr elbow LT 2VSigned By:[employer] Other xr elbow LT 2V02/16/[address] [place] [address] [employer] Other XR hand LT min 3V*on 70-02-2558SV hand LT min 3V* XR/XR hand LT min 3V*: Nondisplaced fracture of neck of left radius,[employer] Other XR hand LT min 3V*LEFT HAND - 4 viewsNost. louis va medical center [employer] Other XR hand LT min 3V*REASON FOR EXAM: Follow-up mallet fractureNost. louis va medical center [employer] Other XR hand LT min 3V*COMPARISON: Left hand 01/06/2023[place] [employer] Other XR hand LT min 3V*Splint is seen involving the fifth digit. The patient's distal phalanx fracture of the fifth digitCoffeeville [employer] Other XR hand LT min 3V*appears grossly unchanged in alignment and healing compared to the prior study. No additionalNost. louis va medical center [employer] Other XR hand LT min 3V*fractures are seen. Mild degenerative changes involving the DIP joints particularly involving [facility] CenterPipefish Other XR hand LT min 3V*second and third DIP joints. Carpus demonstrates degenerative change. No bony erosions.[employer] Other XR hand LT min 3V* XR/XR hand LT min 3V*[employer] Other XR hand LT min 3V*NO SIGNIFICANT CHANGE IN THE DIGIT FRACTURE FINDINGS COMPARED TO THE PRIOR STUDY.[employer] Other XR hand LT min 3V*Impression dictated by: Anthony Benson Jr., DCharuOCharu02/16/2023 12:24 [facility] HEALTHPipefish Other XR hand LT min 3V*Transcribed By: CHEKO 02/16/23 122 [employer] Other XR hand LT min 3V*Dictated By: Anthony Benson Jr, DO 02/16/23 [facility]1[employer] Other XR hand LT min 3V*02/16/23 [facility]4[employer] Other Office Visit (Cardiology)on 28-18-2535Hfxyqt-up visit Diagnoses/Problems Assessed CAD (coronary artery disease) [...] 40 MG Oral TabletTAKE 1 TABLET DAILY. HYDROcodone-Acetaminophen 5-325 MG Oral TabletTAKE 1 TO 2 TABLETS BY MOUTH EVERY 6 HOURS NEEDED FOR 7 DAYS Jardiance 25 MG Oral TabletTAKE 1 TABLET BY MOUTH ONCE DAILY Klor-Con M10 10 MEQ Oral Tablet Extended Release Levothy (more content not included)...NormalUH TouchworksTobacco Screening.on 15-57-7090Nmxww depression screening assessmentNoSt. Mary's Medical Center 250 DO Work Phone: Fall risk assessmentb) One or more falls in the last yearSt. Mary's Medical Center 250 DO Work Phone: Tobacco use status CPHSb) NoMHennepin County Medical Center 250 DO Work Phone: XR elbow LT 2Von 16-89-9858NL elbow LT 2VAv[facility] [employer] Other XR elbow LT 2VFRSc[facility]s [facility] [employer] Other XR elbow LT [id number] [place] [address] [employer] Other XR elbow LT 2VSMark [place] [id number] [employer] Other XR elbow LT 2VXRVanderbilt Transplant Center [employer] Other XR elbow LT 2VSGeneral [facility] [employer] Other xr elbow LT 2VPatient: Heidi Palmer MR#: [id number] [facility] [employer] Other XR elbow LT 4H29[place] [employer] Other xr elbow LT 2VDOB: 1940 Acct:[id number] [employer] Other XR elbow LT 2VAge/Sex: 82 / F ADM Date: 01/06/23[place] [employer] Other XR elbow LT 2VLoc: SOXD Room: Type: [facility] [employer] Other XR elbow LT 2VAttending Dr: Uma Mccauley MDCoffeeville [employer] Other xr elbow LT 2VCopies to: Uma Mccauley MDCoffeeville [employer] Other xr elbow LT 2VOrdering Provider: Uma Mccauley MD [employer] Other xr elbow LT 2VDate of Service: 01/06/23[place] [employer] Other XR elbow LT 2VAccession #: ([id number] XR/XR elbow LT 2V: Closed nondisplaced fracture of neck of left radius,[employer] Other XR elbow LT 2VinitialNost. louis va medical center [employer] Other XR elbow LT 2VXR elbow LT 2V 01/06/2023 9:36 [facility]Nlake [facility] [employer] Other XR elbow LT 2VSIGNS AND SYMPTOMS: Status post left radial neck fracture, follow-upCoffe[place] [employer] Other xr elbow LT 2VPROTOCOL: Frontal and lateral radiographs of the left elbowCoffeeville [employer] Other xr elbow LT 2VCOMPARISON: 12/18/2022[place] [employer] Other xr elbow LT 2VFINDINGS:[employer] Other xr elbow LT 2VThere is redemonstration of a minimally displaced fracture of the neck of the radius without intra-[employer] Other xr elbow LT 2Varticular extension. No change in alignment. Healing remains incomplete. No significant jointNost. louis va medical center [employer] Other XR elbow LT 2Veffusion. No dislocation or subluxation. [employer] Other XR elbow LT 2VORDER #: [id number] XR/XR elbow LT 2V [employer] Other xr elbow LT 2VIMPRESSION:[employer] Other xr elbow LT 2VSimilar incompletely healed fracture traversing the radial neck without change in alignment.[employer] Other XR elbow LT 2VImpression dictated by: Tomasz Lerner M.D.01/06/2023 2:02 PMNCanton-Potsdam Hospital [employer] Other xr elbow LT 2VDictation Location: [address] [employer] Other XR elbow LT 2VTranscribed By: CHEKO 01/06/[address] [place] [address] [employer] Other XR elbow LT 2VDictated By: Tomasz Lerner II, MD 01/06/[address] [place] [address] [employer] Other xr elbow LT 2VSigned By:[facility] [employer] Other xr elbow LT 2V01/06/[address] [place] [address] [employer] Other XR hand LT min 3V*on 63-61-6137DH hand LT min 3V* XR/XR hand LT min 3V*: Closed nondisplaced fracture of phalanx of [facility] [employer] Other XR hand LT min 3V*little fingSaint Joseph Hospital West [employer] Other XR hand LT min 3V*XR hand LT min 3V* 01/06/2023 9:36 AM [place] [employer] Other XR hand LT min 3V*SIGNS AND SYMPTOMS: Follow-up left fifth digit fractureCoffeeville [employer] Other XR hand LT min 3V*PROTOCOL: Frontal, lateral, and oblique radiographs of the left [facility] [employer] Other XR hand LT min 3V*There is a minimally displaced fracture along the dorsal aspect of the ascending distal phalanx ofCoffeeville [employer] Other XR hand LT min 3V*the fifth digit with intra-articular extension. There is no change in alignment. [facility] [place] [employer] Other XR hand LT min 3V*incomplete. There is mild fixed flexion deformity of the distal interphalangeal joint of the fifthNost. [facility] [employer] Other XR hand LT min 3V*digit similar to the prior exam. There is narrowing of the distal interphalangeal joints throughout.[employer] Other XR hand LT min 3V*There is a tiny radiopaque foreign body along the tip of the second digit similar to the prior exam.[employer] Other XR hand LT min 3V* XR/XR hand LT min 3V*[employer] Other XR hand LT min 3V*Unchanged fracture at the dorsal aspect of the base of the fifth distal phalanx.[employer] Other XR hand LT min 3V*Similar flexion deformity of the distal interphalangeal joint of the fifth digit without change [facility] [employer] Other XR hand LT min 3V*alignment.[employer] Other XR hand LT min 3V*Impression dictated by: Tomasz Lerner M.D.01/06/2023 2:05 [facility] Other XR hand LT min 3V*Transcribed By: CHEKO 01/06/23 [facility] [employer] Other XR hand LT min 3V*Dictated By: Tomasz Lerner II, MD 01/06/[address] [place] [address] [employer] Other XR hand LT min 3V*01/06/[address] [place] [address] [employer] [address] CSPINE WO CONon [id number] CSPINE WO CON EXAMINATION: CT CSPINE WO CON HISTORY: Falls COMPARISON: No relevant [...] Electronically authenticated by: GRADY PARKER Date: 2022-12-18 13:55[facility]CT [facility]on [id number] HEAD WO CONEXAMINATION: CT HEAD WO CON HISTORY: Falls COMPARISON: [...] Electronically authenticated by: GRADY PARKER Date: 2022-12-18 13:39[facility] HospitalCULTURE URINEon [id number] URINEIsolate 1 Escherichia coli >100,000 cfu/mL of ORGANISM [...] <=0.12 S F Nitrofurantoin <=16 S F Trimethoprim/Sulfamethoxazole <=20 S FNormalThe [facility] HospitalComment on above:Performed By: #### URCX ####[facility] [address] [address]Dr. Grace Cody AUTO DIFFon [id number] #0.1 103/ulNormal0.0-0.1The [facility] HospitalComment on above:Performed By: #### CBC #### [facility] [address] [address] [address] Grace AdameBasophils/100 WBC (Bld)0.8 %Normal0.2-2.0[facility] Comment on above:Performed By: #### CBC #### [facility] [address] [address] [address] Grace Payne #0.1 103/ulNormal0.0-0.7The [facility] HospitalComment on above: Performed By: #### CBC #### [facility] [address] [address] [address] Grace Aponteosinophils/100 WBC (Bld)1.1 %Normal0.9-7.0[facility] Comment on above:Performed By: #### CBC #### [facility] [address] [address] [address] Grace Aponterythrocyte distribution width (RBC) [Ratio]13.4 %Kchbek97.0-15.0 [facility] HospitalComment on above:Performed By: #### CBC #### [facility] [address] [address] [address] Grace AdameHematocrit (Bld) [Volume fraction]48.6 %Critically high36.0-48.0 [facility] HospitalComment on above:Performed By: #### CBC #### [facility] [address] [address] [address] Grace AdameHemoglobin (Bld) [Mass/Vol]15.9 g/jFHcvwdd26.0-16.0The [facility] HospitalComment on above:Performed By: #### CBC #### [facility] [address] [place] [address] Dr. Grace Bullock #0.14 10e3/ulCritically high0.00-0.03The [facility] Comment on above:Performed By: #### CBC #### [facility] [address] [place] [address] Dr. Grace Bullock %1.2 %Critically high0.0-0.5The [facility] HospitalComment on above:Performed By: #### CBC #### [facility] [address] [place] [address] Dr. Grace Torres #1.8 103/ulNormal1.2-3.8The [facility] HospitalComment on above:Performed By: #### CBC #### [facility] [address] [place] [address] Dr. Grace Fosterhocytes/100 WBC (Bld)15.9 %Critically low20.5-60.0The [facility] HospitalComment on above:Performed By: #### CBC #### [facility] [address] [place] [address] Dr. Grace Carrington DIFF REQNONormalThe [facility] HospitalComment on above: Performed By: #### CBC #### [facility] [address] [place] [address] Dr. Grace Islas (RBC) [Entitic mass]29.8 qyJewwwx08.7-34.0The [facility] HospitalComment on above:Performed By: #### CBC #### [facility] [address] [place] [address] Dr. Grace Morrison (RBC) [Mass/Vol]32.7 g/gVYenvrv97.9-35.2The [facility] HospitalComment on above:Performed By: #### CBC #### [facility] [address] [place] [address] Dr. Yilan ChangMCV (RBC) [Entitic vol]91.0 hGFjanvw86.0-99.0The [facility] HospitalComment on above:Performed By: #### CBC #### [facility] [address] [place] [address] Dr. Grace Garsia #1.0 103/ulCritically high0.3-0.8Th[facility] Comment on above:Performed By: #### CBC #### [facility] [address] [place] [address] Dr. Grace Gastonocytes/100 WBC (Bld)8.8 %Normal1.7-12.0The [facility] Comment on above:Performed By: #### CBC #### [facility] [address] [place] [address] Dr. Grace Tobar #8.2 103/ulCritically high1.4-6.5The [facility] Comment on above:Performed By: #### CBC #### [facility] [address] [place] [address] Dr. Grace Lirianoutrophils/100 WBC (Bld)72.2 %Ewjqnc62.0-75.0The [facility] HospitalComment on above:Performed By: #### CBC #### [facility] [address] [place] [address] Dr. Grace Leelet mean volume (Bld) [Entitic vol]9.6 fLNormal9.5-13.5The [facility] HospitalComment on above:Performed By: #### CBC #### [facility] [address] [place] [address] Dr. Grace AdamePLT268 103/evZruzvx293-527Zmd [facility] HospitalComment on above: Performed By: #### CBC #### [facility] [address] [place] [address] Dr. Grace AdameRBC5.34 106/ulNormal4.20-5.40The [facility] HospitalComment on above:Performed By: #### CBC #### [facility] [address] [place] [address] Dr. Grace AdameWBC11.3 103/ulCritically high4.0-11.0The [facility] HospitalComment on above:Performed By: #### CBC #### [facility] [address] [address] [address] Grace AdameGLYCOHEMOGLOBIN A1Con [id number] RECOMMENDATIONSEE BELOWNormal The [facility] HospitalComment on above:Result Comment: ADA RECOMMENDED LIMIT 4.0 - 6.0 ADA THERAPEUTIC TARGET < 7.0 ACTION SUGGESTED > 7.0Performed By: #### A1C ####[facility] [address] [address]Dr. Grace AdameGlucose [Mass/Vol]192 mg/dLNormalThe [facility] HospitalComment on above:Performed By: #### A1C ####[facility] [address] [address]Dr.Yilan AdameHbA1c (Bld) [Mass fraction]8.3 % Critically high4.5-6.2The [facility] HospitalComment on above:Performed By: #### A1C ####[facility] [address] [address]Dr. Grace StoutROALBUMIN, RAND URon 47-26-9847iKFQ79.6 mg/LNormal<=30.0The [facility] HospitalComment on above:Performed By: #### MALBR #### [facility] [address] [address] [address] Grace AdamePROF 14(COMP METB)on [id number] [Mass/Vol]3.4 g/dLNormal 3.4-5.0The [facility] HospitalComment on above:Performed By: #### CMP #### [facility] [address] [address] [address] Grace AdameAlbumin/Globulin [Mass ratio]0.9 {ratio}NormalThe [facility] HospitalComment on above:Performed By: #### CMP #### [facility] [address] [address] [address] Grace AdameALP [Catalytic activity/Vol]82 U/WLxqhvk73-491Bky [facility] HospitalComment on above:Performed By: #### CMP #### [facility] [address] [address] [address] Grace SargentT [Catalytic activity/Vol]11 U/LCritically wey63-59Bnk [facility] HospitalComment on above:Performed By: #### CMP #### [facility] [address] [address] [address] Grace Rushon gap [Moles/Vol]11.6 mmol/LNormalThe [facility] Comment on above:Performed By: #### CMP #### [facility] [address] [address] [address] Grace AdameAST [Catalytic activity/Vol]13 U/LCritically xli55-56Mey [facility] HospitalComment on above:Performed By: #### CMP #### [facility] [address] [address] [address] Grace AdameBilirubin [Mass/Vol]0.6 mg/dLNormal0.2-1.0[facility] Comment on above:Performed By: #### CMP #### [facility] [address] [address] [address] Grace AdameCalcium [Mass/Vol]9.0 mg/dLNormal8.5-10.1[facility] Comment on above:Performed By: #### CMP #### [facility] [address] [address] [address] Grace AdameChloride [Moles/Vol]101 mmol/VJshgdp10-599Nxw [facility] Comment on above:Performed By: #### CMP #### [facility] [address] [address] [address] Grace AdameCO2 [Moles/Vol]27.5 mmol/PEsrsmz01.0-32.0The [facility] Comment on above:Performed By: #### CMP #### [facility] [address] [address] [address] Grace AdameCreatinine [Mass/Vol]0.95 mg/dLNormal0.55-1.02The [facility] HospitalComment on above:Performed By: #### CMP #### [facility] [address] [address] [address] Grace AponteGFR-AF OMANI>60Normal>=60The [facility] HospitalComment on above:Performed By: #### CMP #### [facility] [address] [address] [address] Grace AponteGFR-NON AF UZHTHBVJ84 mL/min/1.46d1Cotqhlfrwv low>=60The [facility] HospitalComment on above:Performed By: #### CMP #### [facility] [address] [address] [address] rGace AdameGlobulin (S) [Mass/Vol]3.7 g/dLNormalThe [facility] HospitalComment on above:Performed By: #### CMP #### [facility] [address] [address] [address] Grace AdameGlucose [Mass/Vol]225 mg/dLCritically sfqy18-508Dyw [facility] HospitalComment on above:Performed By: #### CMP #### [facility] [address] [address] [address] Grace AdamePotassium [Moles/Vol]4.1 mmol/LNormal3.5-5.1[facility] Comment on above:Performed By: #### CMP #### [facility] [address] [address] [address] Grace AdameProtein [Mass/Vol]7.1 g/dLNormal6.4-8.2[facility] Comment on above:Performed By: #### CMP #### [facility] [address] [address] [address] Grace AdameSodium [Moles/Vol]136 mmol/NNfaewe166-094Ujj [facility] Comment on above:Performed By: #### CMP #### [facility] [address] [address] [address] Grace AdameUrea nitrogen [Mass/Vol]18.0 mg/dLNormal7.0-18.0The [facility] HospitalComment on above:Performed By: #### CMP #### [facility] [address] [address] [address] Grace AdameUrea nitrogen/Creatinine [Mass ratio]18.9 mg/mgNormalThe [facility] HospitalComment on above:Performed By: #### CMP #### [facility] [address] [address] [address] Grace Cody AUTO DIFFon [id number] #0.1 103/ulNormal0.0-0.1The [facility] HospitalComcorewell health ze[facility] hospital on above:Performed By: #### CBC ####[facility] [address] [place], [place] [address]Dr.Grace AdameBasophils/100 WBC (Bld)1.5 %Normal0.2-2.0The [facility] on above:Performed By: #### CBC ####[facility] [address] [place], [place] [address]Dr.Grace ChangEO #0.2 103/ulNormal0.0-0.7The [facility] HospitalComment on above:Performed By: #### CBC ####[facility] [address] [place], [place] [address]Dr.Grace ChangEosinophils/100 WBC (Bld)2.6 %Normal 0.9-7.0The [facility] HospitalComcorewell health zeeland hospital on above:Performed By: #### CBC ####[facility] At[address] [place], [place] [address]DrThiago Adame Erythrocyte distribution width (RBC) [Ratio]13.8 %Zjorob84.0-15.0The [facility] HospitalComment on above:Performed By: #### CBC ####[facility] [address] [place], [place] [address]DrThiago AdameHematocrit (Bld) [Volume fraction]46.3 %Hrnatu84.0-48.0The [facility] HospitalComment on above:Performed By: #### CBC ####[facility] [address] [place], [place] [address]Dr.Yilan ChangHemoglobin (Bld) [Mass/Vol]14.8 g/dL Dicgsr73.0-16.0The [facility] HospitalComment on above:Performed By: #### CBC ####[facility] [address]sj[address] [place], [place] [address]DrCharu AdameIG #0.17 10e3/ulCritically high0.00-0.03The [facility] HospitalComment on above:Performed By: #### CBC ####[facility] Csvaojznl[address] [place], [place] [address]Dr.Grace AdameIG %2.1 %Critically high0.0-0.5The [facility] HospitalComment on above:Performed By: #### CBC ####[facility] Qszufefils[address] [place], [place] [address]Dr.Grace AdameMPH #2.5 103/ulNormal1.2-3.8The [facility] HospitalComment on above:Performed By: #### CBC ####[facility] Xhyqpmnquo[address] [place], [place] [address]Dr. Grace AdameWyckoff Heights Medical Centerhocytes/100 WBC (Bld)30.4 %Oadmup03.5-60.0The [facility] Comment on above:Performed By: #### CBC ####[facility] [address]qwcmi[address] [place], [place] [address]Dr.Grace AdameMANUAL DIFF REQNONormalThe [facility] HospitalComment on above:Performed By: #### CBC ####[facility] Roovwervlf[address] [place], [place] [address]Dr.Grace AdameBELLEVUE [facility] (RBC) [Entitic mass]29.9 ceNpcesu69.7-34.0The [facility] HospitalComment on above: Performed By: #### CBC ####[facility] Axdk[address] [place], [place] [address]DrThiago AdameWADSWORTH H[facility]PITAL (RBC) [Mass/Vol]32.0 g/dLNormal 29.9-35.2The [facility] HospitalComment on above:Performed By: #### CBC ####[facility] Ycfvory[address]yl[address] [place], [place] [address]Dr. Grace AdameMCV (RBC) [Entitic vol]93.5 yJAmjxca34.0-99.0The [facility] Comment on above:Performed By: #### CBC ####[facility] [address] [address]Dr.Grace AdameMONO #1.0 103/ulCritically high0.3-0.8The [facility] HospitalComment on above:Performed By: #### CBC ####[facility] Azjbzvds[address] [place], [place] [address]Dr. Grace AdameMonocytes/100 WBC (Bld)11.7 %Normal1.7-12.0The [facility] Comment on above:Performed By: #### CBC ####[facility] Blczrmrrrw[address] [place], [place] [address]Dr.Grace AdameNEUT #4.2 103/ulNormal1.4-6.5 The [facility] HospitalComment on above:Performed By: #### CBC ####[facility] Pdrtoenooi[address] [place], [place] [address]Dr.Grace Adame Neutrophils/100 WBC (Bld)51.7 %Xeuzvp98.0-75.0The [facility] HospitalComment on above:Performed By: #### CBC ####[facility] Sry[address]fgsns[address] [place], [place] [address]Dr.Grace AdamePlatelet mean volume (Bld) [Entitic vol] 10.5 fLNormal9.5-13.5The [facility] HospitalComment on above:Performed By: #### CBC ####[facility] [address] [place], [place] [address]Dr. Grace LdvvtDMU148 103/srMuqnyy821-097Lto [facility] HospitalComment on above: Performed By: #### CBC ####[facility] [address]xmw[address] [place], [place] [address]Dr.Grace ChangRBC4.95 106/ulNormal4.20-5.40The [facility] HospitalComment on above:Performed By: #### CBC ####[facility] [address] [address]DrThiago AdameWBC8.1 103/ul Normal4.0-11.0The [facility] HospitalComcorewell health zeeland hospital on above:Performed By: #### CBC ####[facility] [address] [address]Dr. Grace AdameDIRECT LDLon 72-54-7250Uozmtebvrdx in LDL [Mass/Vol]223 mg/dLNormal [facility] HospitalComcore[facility] on above:Performed By: #### DLDL, LIPID, CMP ####[facility] [address] [address]Dr. Grace AdameDLDL NORMALSEE BELOWThe Jewish HospitalComcorewell health ze[facility] hospital on above: Result Comment: <100 mg/dl OPTIMAL 100 - 129 mg/dl NEAR OR ABOVE OPTIMAL 130 - 159 mg/dl BORDERLINE HIGH 160 - 189 mg/dl HIGH >190 mg/dl VERY HIGHPerformed By: #### DLDL, LIPID, CMP ####[facility] [address] [address]DrCharu AdameGLYCOHEMOGLOBIN A1Con [id number] RECOMMENDATIONSEE [facility] DaytonComcorewell health ze[facility] hospital on above:Result Comment: ADA RECOMMENDED LIMIT 4.0 - 6.0 ADA THERAPEUTIC TARGET < 7.0 ACTION SUGGESTED > 7.0Performed By: #### A1C #### [facility] [address] [place] [address] Dr. Grace AdameGlucose [Mass/Vol]223 mg/dLNoNorwalk Memorial HospitalComcorewell health zeeland hospital on above:Performed By: #### A1C #### [facility] [address] [address] [address] Grace AdameHbA1c (Bld) [Mass fraction]9.4 %Critically high4.5-6.2The [facility] on above:Performed By: #### A1C #### [facility] [address] [address] [address] Grace AdameLIPID PROFILEon [id number]-HDL RATIO NORMSEE [facility] on above:Result Comment: 3.3 - 4.4 LOW RISK 4.4 - 7.1 AVERAGE RISK 7.1 - 11.0 MODERATE RISK >11.0 HIGH RISKPerformed By: #### DLDL, LIPID, CMP #### [facility] [address] [address] [address] Grace AdameCholesterol [Mass/Vol]374 mg/dLCritically high<=200The [facility] on above:Performed By: #### DLDL, LIPID, CMP #### [facility] [address] [place] [address] Dr. Grace AdameCholesterol in HDL [Mass/Vol]43 mg/pIEpmduh36-02Nam [facility] on above:Performed By: #### DLDL, LIPID, CMP #### [facility] [address] [place] [address] Dr. Grace Coronadoesterfab.total/Cholesterol in HDL [Mass ratio]8.7 {ratio} NormalUniversity Hospitals [facility] on above:Performed By: #### DLDL, LIPID, CMP #### [facility] [address] [place] [address] Dr. Grace AdameHDL NORMAL> or = 60 mg/dl - LOW CARDIOVASCULAR RISK <40 mg/dl - HIGH CARDIOVASCULAR RISKNoBarberton Citizens [facility] on above:Performed By: #### DLDL, LIPID, CMP #### [facility] [address] [place] [address] Dr. Grace AdameTriglyceride [Mass/Vol]461 mg/dLCritically high<=150The [facility] on above:Performed By: #### DLDL, LIPID, CMP #### [facility] [address] [place] [address] Dr. Grace AdameVLDL CALC92.2 mg/dLNoBarberton Citizens Hospital on above: Performed By: #### DLDL, LIPID, CMP #### [facility] [address] [place] [address] Dr. Grace AdamePROLuis 14(COMP METB)on [id number] [Mass/Vol]3.2 g/dL Critically low3.4-5.0The [facility] HospitalComment on above:Performed By: #### DLDL, LIPID, CMP #### [facility] [address] [place] [address] Dr. Grace AdameAlbumin/Globulin [Mass ratio]0.9 {ratio}NormalThe [facility] HospitalComment on above:Performed By: #### DLDL, LIPID, CMP #### [facility] [address] [place] [address] Dr. Grace SargentP [Catalytic activity/Vol]89 U/RSbnscr19-919Rqs [facility] HospitalComment on above:Performed By: #### DLDL, LIPID, CMP #### [facility] [address] [place] [address] Dr. Grace Barlow [Catalytic activity/Vol]13 U/LCritically uue50-94Loh [facility] HospitalComment on above:Performed By: #### DLDL, LIPID, CMP #### [facility] [address] [place] [address] Dr. Grace Olsen gap [Moles/Vol]11.5 mmol/LNormalThe [facility] Comment on above:Performed By: #### DLDL, LIPID, CMP #### [facility] [address] [place] [address] Dr. Grace AdameAST [Catalytic activity/Vol]9 U/LCritically mso58-63Dmf [facility] HospitalComment on above:Performed By: #### DLDL, LIPID, CMP #### [facility] [address] [place] [address] Dr. Grace AdameBilirubin [Mass/Vol]0.4 mg/dLNormal0.2-1.0The [facility] Comment on above:Performed By: #### DLDL, LIPID, CMP #### [facility] [address] [place] [address] Dr. Grace AdameCalcium [Mass/Vol]8.7 mg/dLNormal8.5-10.1The [facility] Comment on above:Performed By: #### DLDL, LIPID, CMP #### [facility] [address] [address] [address] Grace AdameChloride [Moles/Vol]101 mmol/FTyxqoq18-352Cio [facility] Comment on above:Performed By: #### DLDL, LIPID, CMP #### [facility] [address] [address] [address] Grace AdameCO2 [Moles/Vol]26.2 mmol/UIiymyp53.0-32.0The [facility] Comment on above:Performed By: #### DLDL, LIPID, CMP #### [facility] [address] [address] [address] Grace AdameCreatinine [Mass/Vol]1.26 mg/dLCritically high0.55-1.02[facility] HospitalComment on above:Performed By: #### DLDL, LIPID, CMP #### [facility] [address] [place] [address] Dr. Edwards ChangEGFR-AF UJPSTWDA22 mL/min/1.35w2Ymsxfzjibx low>=60The [facility] HospitalComment on above:Performed By: #### DLDL, LIPID, CMP #### [facility] [address] [address] [address] Grace AponteGFR-NON AF AZGDHHMB57 mL/min/1.55c4Xammegcxyq low>=60The [facility] HospitalComment on above:Performed By: #### DLDL, LIPID, CMP #### [facility] [address] [address] [address] Grace AdameGlobulin (S) [Mass/Vol]3.5 g/dLNormalThe [facility] HospitalComment on above:Performed By: #### DLDL, LIPID, CMP #### [facility] [address] [address] [address] Grace AdameGlucose [Mass/Vol]196 mg/dLCritically savu32-796Qwx [facility] HospitalComment on above:Performed By: #### DLDL, LIPID, CMP #### [facility] [address] [address] [address] Grace AdamePotassium [Moles/Vol]4.7 mmol/LNormal3.5-5.1[facility] Comment on above:Performed By: #### DLDL, LIPID, CMP #### [facility] [address] [place] [address] Dr. Grace AdameProtein [Mass/Vol]6.7 g/dLNormal6.1-8.2[facility] Comment on above:Performed By: #### DLDL, LIPID, CMP #### [facility] [address] [place] [address] Dr. Grace AdameSodium [Moles/Vol]134 mmol/LCritically kor581-554Amx [facility] HospitalComment on above:Performed By: #### ERIK LIPID, CMP #### [facility] [address] [place] [address] Dr. Grace AdameUrea nitrogen [Mass/Vol]18.0 mg/dLNormal7.0-18.0The [facility] HospitalComment on above:Performed By: #### ERIK, LIPID, CMP #### [facility] [address] [place] [address] Dr. Grace Amado nitrogen/Creatinine [Mass ratio]14.3 mg/mgNormalThe [facility] HospitalComment on above:Performed By: #### ERIK, LIPID, CMP #### [facility] [address] [place] [address] Dr. Grace AdameCULTABY URINEon [id number] URINEIsolate 1 Escherichia coli >100,000 cfu/mL of ORGANISM [...] <=0.12 S F Nitrofurantoin <=16 S F Trimethoprim/Sulfamethoxazole <=20 S FNormalThe [facility] HospitalComment on above:Performed By: #### URCX ####[facility] [address] [place], [place] [address]Ao. Grace Thacker Screening.on 70-64-7909Psofx depression screening assessmentNoSum[facility] [facility] DO Work Phone: Fall risk assessmenta) No falls within the last year [facility] 250 DO Work Phone: Tobacco use status CPHSb) No[facility] [place] 250 DO Work Phone: BASIC METABOLIC PANELon 69-00-4223Zetglwi mass conc8.2 mg/dLLow8.6-10.3The [facility] HospitalComment on above:Order Comment: No: Do not add to previous drawPerformed By: #### 41749, 52534, 55346 #### [facility] [address] [place] [address], USAChloride molar jwgm214 mmol/CUvbm59-208Glc [facility] HospitalComment on above:Order Comment: No: Do not add to previous drawPerformed By: #### 77266, 27263, 69218 #### [facility] [address] [place] [address], USACO2 molar conc21 mmol/FPtzmwz91-90Sbv [facility] HospitalComment on above:Order Comment: No: Do not add to previous draw Performed By: #### 66547, 59833, 11529 #### [facility] [address] [place] [address], USACreatinine mass conc0.43 mg/dLLow0.60-1.20The [facility] HospitalComment on above:Order Comment: No: Do not add to previous drawPerformed By: #### 52924, 34339, 85904 #### [facility] [address] [place] [address], USAGFR/1.73 sq M predicted among blacks MDRD vol rate/area (S/P/Bld)mL/min/{1.73_m2}Normal>60The [facility] HospitalComment on above:Order Comment: No: Do not add to previous drawResult Comment: Calculation may not be valid for patients over 70 yearsPerformed By: #### 02473, 40073, 23691 #### [facility] [address] [place] [address], USAGFR/1.73 sq M predicted among non-blacks MDRD vol rate/area (S/P/Bld)mL/min/{1.73_m2}Normal>60The [facility] HospitalComment on above:Order Comment: No: Do not add to previous drawResult Comment: Calculation may not be valid for patients over 70 yearsPerformed By: #### 85591, 89287, 09315 #### [facility] [address] [place] [address], USAGlucose mass yohq927 mg/gIMsfm24-684Hxs [facility] HospitalComment on above:Order Comment: No: Do not add to previous drawPerformed By: #### 00594, 10921, 74932 #### [facility] [address] [place] [address], USAPotassium molar conc3.7 mmol/LNormal3.5-5.1The [facility] HospitalComment on above:Order Comment: No: Do not add to previous drawPerformed By: #### 96567, 65087, 17715 #### [facility] [address] [place] [address], USASodium molar whgq695 mmol/EVioiwg758-663Rvs [facility] HospitalComment on above:Order Comment: No: Do not add to previous drawPerformed By: #### 28051, 54881, 87585 #### [facility] [address] [place] [address], USAUrea nitrogen mass conc9 mg/dLNormal7-25The [facility] HospitalComment on above:Order Comment: No: Do not add to previous drawPerformed By: #### 48345, 05498, 41627 #### [facility] [address] [place] [address], USAHEMOGLOBIN A1Con 71-41-3545Vgtmcvwguw A1c/Hemoglobin.total mass fraction (Bld)7.5 %High4.0-6.0The [facility] Comment on above:Order Comment: Yes: Add to Previous draw if ablePerformed By: #### 31549, 19674, 92861 #### [facility] [address] [place] [address], USAHemoglobin A1c/Hemoglobin.total mass fraction (Bld)169 mg/mPVkdi48-606Pie [facility] HospitalComment on above:Order Comment: Yes: Add to Previous draw if ablePerformed By: #### 56259, 80313, 90010 #### [facility] [address] [place] [address], USAMAGNESIUM BLOODon 00-60-5422Ynymntlqe mass conc1.9 mg/dL Normal1.9-2.7The [facility] HospitalComment on above:Order Comment: No: Do not add to previous drawPerformed By: #### 97454, 56956, 72225 #### [facility] [address] [place] [address], USAPOC GLUCOSE LABon 78-35-5874Zffmung mass ixdi197 mg/dLHigh 70-100The [facility] HospitalComment on above:Performed By: #### 77096, 93886, 42509 #### [facility] [address] [place] [address], USAGlucose mass hskk757 mg/oKBmki43-980Odv [facility] HospitalComment on above:Performed By: #### 67969, 73774, 77181 #### [facility] [address] [place] [address], USABASIC METABOLIC PANELon 15-78-8500Ybqkkin mass conc8.2 mg/dLLow8.6-10.3The [facility] HospitalComment on above:Order Comment: No: Do not add to previous drawPerformed By: #### 40723, 19430, 55600 #### [facility] [address] [place] [address], USAChloride molar nngt278 mmol/QJnlyhc86-516Tkz [facility] HospitalComment on above:Order Comment: No: Do not add to previous drawPerformed By: #### 86677, 19163, 65027 #### [facility] [address] [place] [address], USACO2 molar conc26 mmol/ZSdufdn04-60Rsc [facility] HospitalComment on above:Order Comment: No: Do not add to previous draw Performed By: #### 21558, 29561, 52362 #### [facility] [address] [place] [address], USACreatinine mass conc0.50 mg/dLLow0.60-1.20The [facility] HospitalComment on above:Order Comment: No: Do not add to previous drawPerformed By: #### 44698, 15798, 97942 #### [facility] [address] [place] [address], USAGFR/1.73 sq M predicted among blacks MDRD vol rate/area (S/P/Bld)mL/min/{1.73_m2}Normal>60The [facility] HospitalComment on above:Order Comment: No: Do not add to previous drawResult Comment: Calculation may not be valid for patients over 70 yearsPerformed By: #### 97759, 25271, 76749 #### [facility] [address] [place] [address], USAGFR/1.73 sq M predicted among non-blacks MDRD vol rate/area (S/P/Bld)mL/min/{1.73_m2}Normal>60The [facility] HospitalComment on above:Order Comment: No: Do not add to previous drawResult Comment: Calculation may not be valid for patients over 70 yearsPerformed By: #### 23348, 19435, 23632 #### [facility] [address] [place] [address], USAGlucose mass owxz134 mg/xPHxcc04-381Wkq [facility] HospitalComment on above:Order Comment: No: Do not add to previous drawPerformed By: #### 88640, 65980, 20954 #### [facility] [address] [place] [address], USAPotassium molar conc3.3 mmol/LLow3.5-5.1The [facility] HospitalComment on above:Order Comment: No: Do not add to previous drawPerformed By: #### 49761, 28043, 35899 #### [facility] [address] [place] [address], USASodium molar tajl235 mmol/OVaqvhu787-269Jsz [facility] HospitalComment on above:Order Comment: No: Do not add to previous drawPerformed By: #### 82125, 31243, 77279 #### [facility] [address] [place] [address], USAUrea nitrogen mass conc10 mg/dLNormal7-25The [facility] HospitalComment on above:Order Comment: No: Do not add to previous drawPerformed By: #### 55735, 34155, 30048 #### [facility] [address] [facility] [address], [facility] RANCHOCB W/DIFFon 53-39-7613GMI BASOPHILS0.1 10*3/uLNormal 0.0-0.2The [facility] HospitalComment on above:Order Comment: No: Do not add to previous drawPerformed By: #### 88476, 97570, 17826 #### [facility] [address] [place] [address], USAABS IMM GRANS0.1 10*3/uLNormal0.0-0.2The [facility] HospitalComment on above:Order Comment: No: Do not add to previous drawPerformed By: #### 13489, 79390, 09319 #### [facility] [address] [place] [address], USAABS NMYUKEPUBEF74.5 10*3/uLHigh1.6-7.6The [facility] HospitalComment on above:Order Comment: No: Do not add to previous drawPerformed By: #### 45586, 67797, 28869 #### [facility] [address] [place] [address], USABasophils #/vol (Bld)0.3 %Normal0.0-1.0The [facility] HospitalComment on above:Order Comment: No: Do not add to previous drawPerformed By: #### 62734, 07990, 21020 #### [facility] [address] [place] [address], USAEosinophils #/vol (Bld)0.1 10*3/uLNormal0.0-0.5The [facility] HospitalComment on above:Order Comment: No: Do not add to previous drawPerformed By: #### 90248, 51551, 97945 #### [facility] [address] [place] [address], USAEosinophils/100 WBC (Bld)0.7 %Normal0.0-6.0The [facility] HospitalComment on above:Order Comment: No: Do not add to previous drawPerformed By: #### 14307, 13281, 44586 #### [facility] [address] [place] [address], USAErythrocyte distribution width Ratio (RBC)12.7 %Normal 11.5-15.0The [facility] HospitalComment on above:Order Comment: No: Do not add to previous drawPerformed By: #### 21929, 43566, 25816 #### [facility] [address] [place] [address], USAHematocrit Volume Fraction (Bld)41.1 %Eekzsi87.0-45.0The [facility] HospitalComment on above:Order Comment: No: Do not add to previous drawPerformed By: #### 53526, 28109, 27684 #### [facility] [address] [place] [address], USAHemoglobin mass conc (Bld)13.6 g/hNZekjco69.0-15.0The [facility] HospitalComment on above:Order Comment: No: Do not add to previous drawPerformed By: #### 23213, 78886, 50111 #### [facility] [address] [place] [address], USAIMMATURE GRANS0.6 %Normal0.0-1.0The [facility] HospitalComment on above:Order Comment: No: Do not add to previous draw Performed By: #### 30330, 48208, 02916 #### [facility] [address] [place] [address], USALymphocytes #/vol (Bld)2.0 10*3/uLNormal1.2-4.0The [facility] HospitalComment on above:Order Comment: No: Do not add to previous drawPerformed By: #### 15797, 95282, 15086 #### [facility] [address] [place] [address], USALymphocytes/100 WBC (Bld)10.8 %Low20.0-45.0The [facility] HospitalComment on above:Order Comment: No: Do not add to previous drawPerformed By: #### 42827, 89822, 20821 #### [facility] [address] [place] [address], USAMCH Entitic mass (RBC)29.1 whPomxmi82.0-33.0The [facility] HospitalComment on above:Order Comment: No: Do not add to previous drawPerformed By: #### 96786, 95034, 32362 #### [facility] [address] [place] [address], [facility]MANHC mass conc (RBC)33.1 g/fBNjucpt08.0-35.0The [facility] HospitalComment on above:Order Comment: No: Do not add to previous drawPerformed By: #### 78220, 21724, 90530 #### [facility] [address] [place] [address], [facility]MANV Entitic volume (RBC)88.0 xZTkarjo50.0-98.0The [facility] HospitalComment on above:Order Comment: No: Do not add to previous drawPerformed By: #### 74826, 87945, 47867 #### [facility] [address] [place] [address], USAMonocytes #/vol (Bld)1.4 10*3/uLHigh0.1-1.0The [facility] HospitalComment on above:Order Comment: No: Do not add to previous drawPerformed By: #### 53395, 02114, 51971 #### [facility] [address] [place] [address], USAMONOS7.8 %Normal5.0-12.0The [facility] HospitalComment on above:Order Comment: No: Do not add to previous drawPerformed By: #### 65219, 55565, 63580 #### [facility] [address] [place] [address], USANeutrophils/100 WBC (Bld)79.8 %High40.0-72.0The [facility] HospitalComment on above:Order Comment: No: Do not add to previous drawPerformed By: #### 35206, 12004, 60841 #### [facility] [address] [place] [address], USANucleated RBC/100 WBC Ratio (Bld)0 %Normal0-0The [facility] HospitalComment on above:Order Comment: No: Do not add to previous drawPerformed By: #### 52753, 59581, 55755 #### [facility] [address] [facility] [place] [address], USAPLAT DOM678 10*3/eXUfzclr330-954Laq [facility] HospitalComment on above:Order Comment: No: Do not add to previous draw Performed By: #### 73684, 55711, 66031 #### [facility] [address] [facility] [place] [address], [facility] RANCHORBC #/vol (Bld)4.67 10*6/uLNormal3.80-5.00The [facility] HospitalComment on above:Order Comment: No: Do not add to previous drawPerformed By: #### 38602, 97265, 79650 #### [facility] [address] [facility] [place] [address], [facility] RANCHOWBC #/vol (Bld)18.22 10*3/uLHigh4.00-10.60The [facility] HospitalComment on above:Order Comment: No: Do not add to previous drawPerformed By: #### 02282, 86690, 18654 #### [facility] [address] [facility] [place] [address], USAABS BASOPHILS0.1 10*3/uLNormal0.0-0.2The [facility] HospitalComment on above:Order Comment: No: Do not add to previous drawPerformed By: #### 93162, 06683, 76708 #### [facility] [address] [facility] [address], USAABS IMM GRANS0.1 10*3/uLNormal0.0-0.2The [facility] HospitalComment on above:Order Comment: No: Do not add to previous drawPerformed By: #### 61384, 93875, 25682 #### [facility] [address] [place] [address], USAABS NEUTROPHILS8.5 10*3/uLHigh1.6-7.6The [facility] HospitalComment on above:Order Comment: No: Do not add to previous drawPerformed By: #### 77784, 10524, 76444 #### [facility] [address] [place] [address], USABasophils #/vol (Bld)0.5 %Normal0.0-1.0The [facility] HospitalComment on above:Order Comment: No: Do not add to previous drawPerformed By: #### 25379, 14554, 80161 #### [facility] [address] [facility] [place] [address], USAEosinophils #/vol (Bld)0.2 10*3/uLNormal0.0-0.5The [facility] HospitalComment on above:Order Comment: No: Do not add to previous drawPerformed By: #### 13392, 72034, 94042 #### [facility] [address] [place] [address], USAEosinophils/100 WBC (Bld)1.7 %Normal0.0-6.0The [facility] HospitalComment on above:Order Comment: No: Do not add to previous drawPerformed By: #### 69922, 35966, 42183 #### [facility] [address] [facility] [place] [address], USAErythrocyte distribution width Ratio (RBC)12.7 %Normal 11.5-15.0The [facility] HospitalComment on above:Order Comment: No: Do not add to previous drawPerformed By: #### 79102, 60376, 02950 #### [facility] [address] [address], USAHematocrit Volume Fraction (Bld)39.5 %Dxsmdy19.0-45.0The [facility] HospitalComment on above:Order Comment: No: Do not add to previous drawPerformed By: #### 84743, 02107, 94283 #### [facility] [address] [place] [address], USAHemoglobin mass conc (Bld)13.4 g/wOLugyrl05.0-15.0The [facility] HospitalComment on above:Order Comment: No: Do not add to previous drawPerformed By: #### 70906, 98193, 05474 #### [facility] [address] [place] [address], USAIMMATURE GRANS0.7 %Normal0.0-1.0The [facility] HospitalComment on above:Order Comment: No: Do not add to previous draw Performed By: #### 80073, 40396, 31394 #### [facility] [address] [place] [address], USALymphocytes #/vol (Bld)2.1 10*3/uLNormal1.2-4.0The [facility] HospitalComment on above:Order Comment: No: Do not add to previous drawPerformed By: #### 01571, 64179, 12555 #### [facility] [address] [place] [address], USALymphocytes/100 WBC (Bld)17.7 %Low20.0-45.0The [facility] HospitalComment on above:Order Comment: No: Do not add to previous drawPerformed By: #### 35133, 59558, 44076 #### [facility] [address] [place] [address], [facility] Entitic mass (RBC)29.7 vhOhyahs57.0-33.0The [facility] HospitalComment on above:Order Comment: No: Do not add to previous drawPerformed By: #### 36386, 58232, 83142 #### [facility] [address] [place] [address], [facility]MANHC mass conc (RBC)33.9 g/zVEsgyfr93.0-35.0The [facility] HospitalComment on above:Order Comment: No: Do not add to previous drawPerformed By: #### 33219, 31645, 40506 #### [facility] [address] [place] [address], [facility]V Entitic volume (RBC)87.6 rDTikkuv49.0-98.0The [facility] HospitalComment on above:Order Comment: No: Do not add to previous drawPerformed By: #### 69033, 10297, 83735 #### [facility] [address] [place] [address], USAMonocytes #/vol (Bld)0.9 10*3/uLNormal0.1-1.0The [facility] HospitalComment on above:Order Comment: No: Do not add to previous drawPerformed By: #### 58541, 28110, 97794 #### [facility] [address] [place] [address], USAMONOS7.3 %Normal5.0-12.0The [facility] HospitalComment on above:Order Comment: No: Do not add to previous drawPerformed By: #### 69032, 30404, 18359 #### [facility] [address] [place] [address], USANeutrophils/100 WBC (Bld)72.1 %High40.0-72.0The [facility] HospitalComment on above:Order Comment: No: Do not add to previous drawPerformed By: #### 16090, 59672, 11592 #### [facility] [address] [place] [address], USANucleated RBC/100 WBC Ratio (Bld)0 %Normal0-0The [facility] HospitalComment on above:Order Comment: No: Do not add to previous drawPerformed By: #### 50852, 43476, 79594 #### [facility] [address] [place] [address], USAPLAT UPW847 10*3/hBOwriwc866-186Zwh [facility] HospitalComment on above:Order Comment: No: Do not add to previous draw Performed By: #### 76863, 13136, 31171 #### [facility] [address] [place] [address], USARBC #/vol (Bld)4.51 10*6/uLNormal3.80-5.00The [facility] HospitalComment on above:Order Comment: No: Do not add to previous drawPerformed By: #### 02208, 24099, 68310 #### [facility] [address] [place] [address], USAWBC #/vol (Bld)11.74 10*3/uLHigh4.00-10.60The [facility] HospitalComment on above:Order Comment: No: Do not add to previous drawPerformed By: #### 22175, 32378, 87895 #### [facility] [address] [place] [address], USAMAGNESIUM BLOODon 54-27-4063Lzymchvdf mass conc1.8 mg/dLLow 1.9-2.7The [facility] HospitalComment on above:Order Comment: No: Do not add to previous drawPerformed By: #### 55685, 09820, 97354 #### [facility] [address] [place] [address], [place]APOC GLUCOSE LABon 23-57-7411Zeknzfg mass pfux073 mg/dLHigh 70-100The [facility] HospitalComment on above:Performed By: #### 77267, 28460, 24398 #### [facility] [address] [place] [address], USAGlucose mass sfmy687 mg/fNKkrc43-343Dwl [facility] HospitalComment on above:Performed By: #### 38264, 92109, 97613 #### [facility] [address] [place] [address], USAGlucose mass wqly704 mg/fDOdtu21-554Dmr [facility] HospitalComment on above:Performed By: #### 86948, 62669, 64575 #### [facility] [address] [place] [address], USAGlucose mass gyla023 mg/rNVkdp49-603Kwb [facility] HospitalComment on above:Performed By: #### 62914, 20483, 29035 #### [facility] [address] [place] [address], USABASIC METABOLIC PANELon 22-56-2695Rbsebra mass conc8.3 mg/dLLow8.6-10.3The [facility] HospitalComment on above:Order Comment: No: Do not add to previous drawPerformed By: #### 60580, 19251, 90064 #### [facility] [address] [place] [address], USAChloride molar yxqh878 mmol/FCotjmu88-673Mfd [facility] HospitalComment on above:Order Comment: No: Do not add to previous drawPerformed By: #### 00892, 43220, 58659 #### [facility] [address] [place] [address], USACO2 molar conc24 mmol/NTcdayd35-65Eqg [facility] HospitalComment on above:Order Comment: No: Do not add to previous draw Performed By: #### 19987, 25897, 13383 #### [facility] [address] [place] [address], USACreatinine mass conc0.51 mg/dLLow0.60-1.20The [facility] HospitalComment on above:Order Comment: No: Do not add to previous drawPerformed By: #### 02047, 58517, 92716 #### [facility] [address] [place] [address], USAGFR/1.73 sq M predicted among blacks MDRD vol rate/area (S/P/Bld)mL/min/{1.73_m2}Normal>60The [facility] HospitalComment on above:Order Comment: No: Do not add to previous drawResult Comment: Calculation may not be valid for patients over 70 yearsPerformed By: #### 88430, 26944, 45971 #### [facility] [address] [place] [address], USAGFR/1.73 sq M predicted among non-blacks MDRD vol rate/area (S/P/Bld)mL/min/{1.73_m2}Normal>60The [facility] HospitalComment on above:Order Comment: No: Do not add to previous drawResult Comment: Calculation may not be valid for patients over 70 yearsPerformed By: #### 13303, 38857, 54683 #### [facility] [address] [place] [address], USAGlucose mass ibyo500 mg/eEJjuc28-762Oag [facility] HospitalComment on above:Order Comment: No: Do not add to previous drawPerformed By: #### 81048, 42042, 89411 #### [facility] [address] [place] [address], USAPotassium molar conc3.6 mmol/LNormal3.5-5.1The [facility] HospitalComment on above:Order Comment: No: Do not add to previous drawPerformed By: #### [id number], [id number] #### [facility] [address] [place] [address], USASodium molar wjid944 mmol/SMjugai221-519Lhq [facility] HospitalComment on above:Order Comment: No: Do not add to previous drawPerformed By: #### [id number], [id number] #### [facility] [address] [place] [address], USAUrea nitrogen mass conc11 mg/dLNormal7-25The [facility] HospitalComment on above:Order Comment: No: Do not add to previous drawPerformed By: #### [id number], 55341, 55030 #### [facility] [address] [facility] [place] [address], [facility] RANCHOCBC W/DIFFon [id number] BASOPHILS0.1 10*3/uLNormal 0.0-0.2The [facility] HospitalComment on above:Order Comment: No: Do not add to previous drawPerformed By: #### 06126, 84708, 90631 #### [facility] [address] [facility] [place] [place] [address], USAABS IMM GRANS0.1 10*3/uLNormal0.0-0.2The [facility] HospitalComment on above:Order Comment: No: Do not add to previous drawPerformed By: #### 08040, 13920, 22832 #### [facility] [address] [facility] [place] [place] [address], USAABS NEUTROPHILS7.6 10*3/uLNormal1.6-7.6The [facility] HospitalComment on above:Order Comment: No: Do not add to previous drawPerformed By: #### 36877, 66109, 79066 #### [facility] [address] [facility] [place] [address], USABasophils #/vol (Bld)0.4 %Normal0.0-1.0The [facility] HospitalComment on above:Order Comment: No: Do not add to previous drawPerformed By: #### 02759, 16050, 45961 #### [facility] [address] [facility] [place] [address], USAEosinophils #/vol (Bld)0.1 10*3/uLNormal0.0-0.5The [facility] HospitalComment on above:Order Comment: No: Do not add to previous drawPerformed By: #### 96617, 95192, 90150 #### [facility] [address] [place] [address], USAEosinophils/100 WBC (Bld)0.6 %Normal0.0-6.0The [facility] HospitalComment on above:Order Comment: No: Do not add to previous drawPerformed By: #### 71807, 98262, 58768 #### [facility] [address] [place] [address], USAErythrocyte distribution width Ratio (RBC)12.7 %Normal 11.5-15.0The [facility] HospitalComment on above:Order Comment: No: Do not add to previous drawPerformed By: #### 33327, 82427, 69335 #### [facility] [address] [place] [address], USAHematocrit Volume Fraction (Bld)41.5 %Ldjpjm64.0-45.0The [facility] HospitalComment on above:Order Comment: No: Do not add to previous drawPerformed By: #### 60236, 02281, 88808 #### [facility] [address] [address], USAHemoglobin mass conc (Bld)14.2 g/iVDewlvz61.0-15.0The [facility] HospitalComment on above:Order Comment: No: Do not add to previous drawPerformed By: #### 37906, 39852, 36495 #### [facility] [address] [address], USAIMMATURE GRANS0.5 %Normal0.0-1.0The [facility] HospitalComment on above:Order Comment: No: Do not add to previous draw Performed By: #### 71970, 69128, 77006 #### [facility] [address] [place] [address], USALymphocytes #/vol (Bld)2.4 10*3/uLNormal1.2-4.0The [facility] HospitalComment on above:Order Comment: No: Do not add to previous drawPerformed By: #### 99027, 34666, 47562 #### [facility] [address] [place] [address], [facility] RANCHOLymphocytes/100 WBC (Bld)21.5 %Tteunp73.0-45.0The [facility] HospitalComment on above:Order Comment: No: Do not add to previous drawPerformed By: #### 37846, 54409, 16017 #### [facility] [address] [place] [address], [facility] Entitic mass (RBC)29.6 yrZhdxql77.0-33.0The [facility] HospitalComment on above:Order Comment: No: Do not add to previous drawPerformed By: #### 65866, 37779, 48256 #### [facility] [address] [place] [address], [facility] NORMANHC mass conc (RBC)34.2 g/qEQyyamm71.0-35.0The [facility] HospitalComment on above:Order Comment: No: Do not add to previous drawPerformed By: #### 57863, 81820, 48142 #### [facility] [address] [facility] [place] [address], [facility] Entitic volume (RBC)86.6 iAAgoqas13.0-98.0The [facility] HospitalComment on above:Order Comment: No: Do not add to previous drawPerformed By: #### 73766, 92788, 27747 #### [facility] [address] [facility] [place] [place] [address], [facility] RANCHOMonocytes #/vol (Bld)1.1 10*3/uLHigh0.1-1.0The [facility] HospitalComment on above:Order Comment: No: Do not add to previous drawPerformed By: #### 96097, 10186, 94202 #### [facility] [address] [place] [address], USAMONOS9.4 %Normal5.0-12.0The [facility] HospitalComment on above:Order Comment: No: Do not add to previous drawPerformed By: #### 23147, 94530, 08940 #### [facility] [address] [place] [address], USANeutrophils/100 WBC (Bld)67.6 %Jlpgyf11.0-72.0The [facility] HospitalComment on above:Order Comment: No: Do not add to previous drawPerformed By: #### 12528, 01562, 50489 #### [facility] [address] [place] [address], USANucleated RBC/100 WBC Ratio (Bld)0 %Normal0-0The [facility] HospitalComment on above:Order Comment: No: Do not add to previous drawPerformed By: #### 08521, 89360, 34503 #### [facility] [address] [place] [address], USAPLAT UBA628 10*3/rDKrodpi188-361Goz [facility] HospitalComment on above:Order Comment: No: Do not add to previous draw Performed By: #### 61585, 47148, 06439 #### [facility] [address] [place] [address], USARBC #/vol (Bld)4.79 10*6/uLNormal3.80-5.00The [facility] HospitalComment on above:Order Comment: No: Do not add to previous drawPerformed By: #### 84130, 72908, 60369 #### [facility] [address] [place] [address], USAWBC #/vol (Bld)11.22 10*3/uLHigh4.00-10.60The [facility] HospitalComment on above:Order Comment: No: Do not add to previous drawPerformed By: #### 86764, 65857, 02192 #### [facility] [address] [place] [address], USAEEG Reporton [id number] ReportName: Heidi Palmer [facility] MR#: [id number] Age: 78 Physician: Date: 12/13/2018 Lab#: [id number] Date of : 1940 Patient Type: I NEURODIAGNOSTIC SERVICES REPORT [address] [place], [place] [address] Board of the [employer] Accredited Laboratory REFERRING PHYSICIAN: Dr. [...] Rdz M.D. Date Trans: 12/14/2018 04:23 A/debra DN_JN:[id number] Medical [facility] Rehabilitation Hospital - DublinMAGNESIUM BLOOD on 22-76-5394Qtfhcssey mass conc2.0 mg/dLNormal1.9-2.7The [facility] HospitalComment on above:Order Comment: No: Do not add to previous draw Performed By: #### 84273, 65705, 40662 #### [facility] [address] [place] [address], USAPOC GLUCOSE LABon 95-95-1788Eziwfff mass elpf438 mg/dLHigh 70-100The [facility] HospitalComment on above:Performed By: #### 22108, 75912, 33243 #### [facility] [address] [place] [address], USAGlucose mass ciqd470 mg/vTWszt91-495Puv [facility] HospitalComment on above:Performed By: #### 89993, 52712, 21756 #### [facility] [address] [place] [address], USAGlucose mass mjvq935 mg/lRCtrw58-979Uyw [facility] HospitalComment on above:Performed By: #### 28187, 81064, 57500 #### [facility] [address] [place] [address], USAGlucose mass nzdy113 mg/eUGyov04-846Gqr [facility] HospitalComment on above:Performed By: #### 89966, 78836, 10140 #### [facility] [address] [place] [address], USAURIC ACID URon 29-85-1430Rewut mass conc48 mg/dLNormalThe [facility] HospitalComment on above:Order Comment: No: Do not add to previous drawResult Comment: There are no established reference values for random urine specimensPerformed By: #### 26720, 19627, 63011 #### [facility] [address] [facility] [place] [address], [place]*RAPID FLU AANDB BY MOLECULARon 12-13-2018*RAPID FLU AANDB BY MOLECULARClinical Report: (D) Specimen: NASAL SWAB Collected: 12/13/2018 01:15 Status: Final Last Updated: 12/13/2018 01:59 FLUA RNA (Final) Negative FLUB RNA (Final) NegativeNoHocking Valley Community HospitalComment on above:Performed By: #### 59326 #### [facility] [address] [facility] [place] [place] [address], [facility]*URINE CULTUREon 33-07-6359Sjxlwemx identified Cx Nom (U) Clinical Report: (D) Specimen: URINE Collected: 12/13/2018 00:25 Status: Final Last Updated: 12/15/2018 08:06 CULT RES (Final) <10,000 Cfu/Ml No Significant GrowthNoHocking Valley Community HospitalComment on above:Performed By: #### 51917, 71169, 27629 #### [facility] [address] [address], [facility] RANCHOAMMONIA BLOODon 46-28-1975Pblgank mass conc (P)35 umol/L Zygfmh56-47Esi [facility] HospitalComment on above:Performed By: #### 56848 #### [facility] [address] [address], [facility] RANCHOBASIC METABOLIC PANELon 69-62-1535Meciqjh mass conc8.6 mg/dLNormal8.6-10.3The [facility] HospitalComment on above:Order Comment: No: Do not add to previous drawPerformed By: #### 98261 #### [facility] [address] [address], USAChloride molar xdns334 mmol/QFnouvk02-453Yte [facility] HospitalComment on above:Order Comment: No: Do not add to previous drawPerformed By: #### 95521 #### [facility] [address] [address], USACO2 molar conc21 mmol/NSryjrh12-93Vce [facility] HospitalComment on above:Order Comment: No: Do not add to previous draw Performed By: #### 79162 #### [facility] [address] [address], USACreatinine mass conc0.47 mg/dLLow0.60-1.20The [facility] HospitalComment on above:Order Comment: No: Do not add to previous drawPerformed By: #### 96995 #### [facility] [address] [place] [address], USAGFR/1.73 sq M predicted among blacks MDRD vol rate/area (S/P/Bld)mL/min/{1.73_m2}Normal>60The [facility] HospitalComment on above:Order Comment: No: Do not add to previous drawResult Comment: Calculation may not be valid for patients over 70 yearsPerformed By: #### 19790 #### [facility] [address] [facility] [place] [address], USAGFR/1.73 sq M predicted among non-blacks MDRD vol rate/area (S/P/Bld)mL/min/{1.73_m2}Normal>60The [facility] HospitalComment on above:Order Comment: No: Do not add to previous drawResult Comment: Calculation may not be valid for patients over 70 yearsPerformed By: #### 01218 #### [facility] [address] [facility] [place] [address], USAGlucose mass ddge298 mg/rMYimb12-543Fxh [facility] HospitalComment on above:Order Comment: No: Do not add to previous drawPerformed By: #### 47835 #### [facility] [address] [facility] [place] [address], USAPotassium molar conc3.5 mmol/LNormal3.5-5.1The [facility] HospitalComment on above:Order Comment: No: Do not add to previous drawPerformed By: #### 40822 #### [facility] [address] [place] [address], USASodium molar gcjl126 mmol/ASeg359-244Aqs [facility] HospitalComment on above:Order Comment: No: Do not add to previous drawPerformed By: #### 02536 #### [facility] [address] [place] [address], USAUrea nitrogen mass conc10 mg/dLNormal7-25The [facility] HospitalComment on above:Order Comment: No: Do not add to previous drawPerformed By: #### 62269 #### [facility] [address] [place] [address], USAC REACTIVE PROTEINon 89-87-7806FPI mass conc5.9 mg/LNormal 0.0-7.0The [facility] HospitalComment on above:Order Comment: Yes: Add to Previous draw if ablePerformed By: #### 99980, 06284, 92960 #### [facility] [address] [place] [address], [facility] RANCHOCBC W/DIFFon 85-31-9522SQR BASOPHILS0.0 10*3/uLNormal 0.0-0.2The [facility] HospitalComment on above:Order Comment: No: Do not add to previous drawPerformed By: #### 17198 #### [facility] [address] [address], USAABS GGEYPAWPYJX64.4 10*3/uLHigh1.6-7.6The [facility] HospitalComment on above:Order Comment: No: Do not add to previous drawPerformed By: #### 01467 #### [facility] [address] [facility] [place] [address], USABasophils #/vol (Bld)0.0 %Normal0.0-1.0The [facility] HospitalComment on above:Order Comment: No: Do not add to previous drawPerformed By: #### 54471 #### [facility] [address] [place] [address], USAEosinophils #/vol (Bld)0.0 10*3/uLNormal0.0-0.5The [facility] HospitalComment on above:Order Comment: No: Do not add to previous drawPerformed By: #### 74341 #### [facility] [address] [place] [address], USAEosinophils/100 WBC (Bld)0.0 %Normal0.0-6.0The [facility] HospitalComment on above:Order Comment: No: Do not add to previous drawPerformed By: #### 02893 #### [facility] [address] [place] [address], USAErythrocyte distribution width Ratio (RBC)12.7 %Normal 11.5-15.0The [facility] HospitalComment on above:Order Comment: No: Do not add to previous drawPerformed By: #### 25103 #### [facility] [address] [address], USAHematocrit Volume Fraction (Bld)43.2 %Rfglpt12.0-45.0The [facility] HospitalComment on above:Order Comment: No: Do not add to previous drawPerformed By: #### 77376 #### [facility] [address] [address], USAHemoglobin mass conc (Bld)14.6 g/nZMkmoql83.0-15.0The [facility] HospitalComment on above:Order Comment: No: Do not add to previous drawPerformed By: #### 60039 #### [facility] [address] [address], USALymphocytes #/vol (Bld)0.9 10*3/uLLow1.2-4.0The [facility] HospitalComment on above:Order Comment: No: Do not add to previous drawPerformed By: #### 63449 #### [facility] [address] [place] [address], USALymphocytes/100 WBC (Bld)5.5 %Low20.0-45.0The [facility] HospitalComment on above:Order Comment: No: Do not add to previous drawPerformed By: #### 01005 #### [facility] [address] [place] [address], [facility] Entitic mass (RBC)29.1 cfMjelns74.0-33.0The [facility] HospitalComment on above:Order Comment: No: Do not add to previous drawPerformed By: #### 93655 #### [facility] [address] [place] [address], [facility] NORMANHC mass conc (RBC)33.8 g/iYYxjosu47.0-35.0The [facility] HospitalComment on above:Order Comment: No: Do not add to previous drawPerformed By: #### 39655 #### [facility] [address] [place] [id number], [facility] NORMANV Entitic volume (RBC)86.2 vCNfisri49.0-98.0The [facility] HospitalComment on above:Order Comment: No: Do not add to previous drawPerformed By: #### 31721 #### [facility] [address] [place] [address], USAMonocytes #/vol (Bld)1.3 10*3/uLHigh0.1-1.0The [facility] HospitalComment on above:Order Comment: No: Do not add to previous drawPerformed By: #### 99731 #### [facility] [address] [place] [address], USAMONOS8.3 %Normal5.0-12.0The [facility] HospitalComment on above:Order Comment: No: Do not add to previous drawPerformed By: #### 90528 #### [facility] [address] [place] [address], USANeutrophils/100 WBC (Bld)86.2 %High40.0-72.0The [facility] HospitalComment on above:Order Comment: No: Do not add to previous drawPerformed By: #### 84345 #### [facility] [address] [place] [address], USANucleated RBC/100 WBC Ratio (Bld)0 %Normal0-0The [facility] HospitalComment on above:Order Comment: No: Do not add to previous drawPerformed By: #### 74026 #### [facility] [address] [place] [address], USAPLAT MKG039 10*3/gLWauryb400-847Ywv [facility] HospitalComment on above:Order Comment: No: Do not add to previous draw Performed By: #### 76877 #### [facility] [address] [address], [facility]ANCHORBC #/vol (Bld)5.01 10*6/uLHigh3.80-5.00The [facility] HospitalComment on above:Order Comment: No: Do not add to previous drawPerformed By: #### 08894 #### [facility] [address] [address], [facility] RANCHOWBC #/vol (Bld)15.53 10*3/uLHigh4.00-10.60The [facility] HospitalComment on above:Order Comment: No: Do not add to previous drawPerformed By: #### 16421 #### [facility] [address] [address], USAABS BASOPHILS0.0 10*3/uLNormal0.0-0.2The [facility] HospitalComment on above:Performed By: #### 34469 #### [facility] [address] [address], USAABS IMM GRANS0.1 10*3/uLNormal0.0-0.2The [facility] HospitalComment on above:Performed By: #### 38191 #### [facility] [address] [facility] [place] [address], USAABS CAUJGPIDGWN08.8 10*3/uLHigh1.6-7.6The [facility] HospitalComment on above:Performed By: #### 03619 #### [facility] [address] [facility] [place] [address], USABasophils #/vol (Bld)0.2 %Normal0.0-1.0The [facility] HospitalComment on above:Performed By: #### 18027 #### [facility] [address] [facility] [place] [address], [facility] RANCHOEosinophils #/vol (Bld)0.0 10*3/uLNormal0.0-0.5The [facility] HospitalComment on above:Performed By: #### 35516 #### [facility] [address] [facility] [place] [address], USAEosinophils/100 WBC (Bld)0.0 %Normal0.0-6.0The [facility] HospitalComment on above:Performed By: #### 67247 #### [facility] [address] [facility] [place] [address], USAErythrocyte distribution width Ratio (RBC)12.3 %Normal 11.5-15.0The [facility] HospitalComment on above:Performed By: #### 04195 #### [facility] [address] [facility] [place] [address], [facility] RANCHOHematocrit Volume Fraction (Bld)44.2 %Dznatr66.0-45.0The [facility] HospitalComment on above:Performed By: #### 04405 #### [facility] [address] [place] [address], [facility] RANCHOHemoglobin mass conc (Bld)15.4 g/dMAozf77.0-15.0The [facility] HospitalComment on above:Performed By: #### 39265 #### [facility] [address] [place] [address], [facility] RANCHOIMMATURE GRANS0.6 %Normal0.0-1.0The [facility] HospitalComment on above:Performed By: #### 27970 #### [facility] [address] [place] [address], [facility] RANCHOLymphocytes #/vol (Bld)1.8 10*3/uLNormal1.2-4.0The [facility] HospitalComment on above:Performed By: #### 90832 #### [facility] [address] [place] [address], [facility]ANCHOLymphocytes/100 WBC (Bld)8.9 %Low20.0-45.0The [facility] HospitalComment on above:Performed By: #### 36478 #### [facility] [address] [facility] [place] [address], [facility] Entitic mass (RBC)29.4 qsYcgzxz69.0-33.0The [facility] HospitalComment on above:Performed By: #### [id number] #### [facility] [address] [facility] [place] [address], [facility]HC mass conc (RBC)34.8 g/dQJtdibu13.0-35.0The [facility] HospitalComment on above:Performed By: #### 15829 #### [facility] [address] [facility] [place] [address], [facility] Entitic volume (RBC)84.4 eXEpkkxk96.0-98.0The [facility] HospitalComment on above:Performed By: #### 31527 #### [facility] [address] [facility] [place] [address], [facility] RANCHOMonocytes #/vol (Bld)0.9 10*3/uLNormal0.1-1.0The [facility] HospitalComment on above:Performed By: #### 08210 #### [facility] [address] [place] [address], USAMONOS4.1 %Low5.0-12.0The [facility] HospitalComment on above:Performed By: #### 55181 #### [facility] [address] [place] [address], USANeutrophils/100 WBC (Bld)86.2 %High40.0-72.0The [facility] HospitalComment on above:Performed By: #### 41701 #### [facility] [address] [place] [address], USANucleated RBC/100 WBC Ratio (Bld)0 %Normal0-0The [facility] HospitalComment on above:Performed By: #### 73027 #### [facility] [address] [place] [address], [place]APLAT NIJ259 10*3/dBMowjtw751-355Lye [facility] HospitalComment on above:Performed By: #### 21911 #### [facility] [address] [address], [facility] RANCHORBC #/vol (Bld)5.24 10*6/uLHigh3.80-5.00The [facility] HospitalComment on above:Performed By: #### 79904 #### [facility] [address] [address], USAWBC #/vol (Bld)20.63 10*3/uLHigh4.00-10.60The [facility] HospitalComment on above:Performed By: #### 55501 #### [facility] [address] [address], USACHEST AND LATERALon [id number] AND [facility] Department of Radiology [address] [place] [id number] Patient Name: HEIDI PALMER : 1940 Sex: F Age: Race: White Pt. Location: [facility] Patient Status: I Ordered Date: 12/12/2018 11:50:00 PM Completed Date: 12/13/2018 12:45 AM Requesting Provider: MICHAEL GASTON Attending Provider: MICHAEL GASTON Report Copy To: Signs & Symptoms: Chest Pain History: Patient history not available Comments: R/O Pneumonia Exam: CHEST AND LATERAL CHEST AND LATERAL 12/13/2018 12:45 AM EST [...] findings. Electronically signed by:Sanju Peñaloza. Transcribed by: [email or web address], User Resident: DILAN VEGA Electronically Signed by: SANJU PEÑALOZA @ 12/13/2018 09:56 AM I personally read this/these film(s) with this [facility] HospitalComment on above:Order Comment: R/O PneumoniaCOMP METABOLIC PANELon [id number] mass conc3.5 g/dLNormal3.5-5.7The [facility] Willard HospitalComment on above:Performed By: #### [id number], [id number], [id number] #### [facility] [address] [place] [address], USAALKALINE [id number]/[id number] [facility] Health Willard HospitalComment on above:Performed By: #### 07722, 16405, 78845 #### [facility] [address] [place] [address], USAALT enzyme act/vol8 U/LNormal7-52The [facility] Willard HospitalComment on above:Performed By: #### 14087, 72788, 97144 #### [facility] [address] [place] [address], USAAST enzyme act/vol15 U/TEbabuo97-81Xcr [facility] HospitalComment on above:Performed By: #### 24669, 87911, 22094 #### [facility] [address] [place] [address], USABilirubin mass conc0.8 mg/dLNormal0.3-1.0The [facility] Willard HospitalComment on above:Performed By: #### 93283, 20404, 70057 #### [facility] [address] [place] [address], USACalcium mass conc8.5 mg/dLLow8.6-10.3The [facility] HospitalComment on above:Performed By: #### 29247, 86017, 01376 #### [facility] [address] [place] [address], USAChloride molar pyqm499 mmol/CXalgvt14-851Vul [facility] HospitalComment on above:Performed By: #### 40926, 82129, 64086 #### [facility] [address] [place] [address], USACO2 molar conc21 mmol/MXcyvgl36-58Cwx [facility] HospitalComment on above:Performed By: #### 80063, 15089, 57939 #### [facility] [address] [place] [address], USACreatinine mass conc0.50 mg/dLLow0.60-1.20The [facility]ard HospitalComment on above:Performed By: #### 39212, 92243, 98379 #### [facility] [address] [place] [address], USAGFR/1.73 sq M predicted among blacks MDRD vol rate/area (S/P/Bld)mL/min/{1.73_m2}Normal>60The [facility] Willard HospitalComment on above:Result Comment: Calculation may not be valid for patients over 70 years Performed By: #### 16934, 13842, 85827 #### [facility] [address] [place] [address], USAGFR/1.73 sq M predicted among non-blacks MDRD vol rate/area (S/P/Bld)mL/min/{1.73_m2}Normal>60The [facility] HospitalComment on above:Result Comment: Calculation may not be valid for patients over 70 years Performed By: #### 31399, 16052, 92862 #### [facility] [address] [place] [address], USAGlucose mass xysj160 mg/lEYivg54-712Jzf [facility] HospitalComment on above:Performed By: #### 36292, 12362, 22006 #### [facility] [address] [place] [address], USAPotassium molar conc3.5 mmol/LNormal3.5-5.1The [facility] Willard HospitalComment on above:Performed By: #### 15235, 61900, 36126 #### [facility] [address] [place] [address], USAProtein mass conc5.9 g/dLLow6.0-8.3The [facility] HospitalComment on above:Performed By: #### 08568, 24692, 03672 #### [facility] [address] [facility] [place] [address], USASodium molar cifi588 mmol/QPwh050-266Dmg [facility] HospitalComment on above:Performed By: #### 10035, 93754, 76714 #### [facility] [address] [facility] [address], USAUrea nitrogen mass conc12 mg/dLNormal7-25The [facility] Will[facility] HospitalComment on above:Performed By: #### 74592, 04480, 06721 #### [facility] [address] [facility] [address], USACREATININE URINE RANDOMon 98-59-4123Ylgqzpbqrp mass conc 59.0 mg/dLNormalThe [facility] HospitalComment on above:Order Comment: Yes: Add to Previous draw if ableResult Comment: There are no established reference values for random urine specimensPerformed By: #### 41062 #### [address] [place] [address], USACT BRAIN PERFUSIONon 23-39-3986CG BRAIN PERFUSIONUnKettering Health [facility] of Rad[facility] [address] [place] [id number] Patient Name: HEIDI PALMER : 1940 Sex: F Age: Race: White Pt. Location: [facility] Patient Status: I Ordered Date: 12/12/2018 11:25:00 PM Completed Date: 12/12/2018 11:55 PM Requesting Provider: MICHAEL GASTON Attending Provider: MICHAEL GASTON Report Copy To: Signs & Symptoms: Other History: Patient history not available Comments: R/O CVA Exam: CT BRAIN PERFUSION CT BRAIN PERFUSION 12/12/2018 11:55 PM EST [...] Gonzales on 12/13/2018 12:09 AM EST. I, Heather Clements, have reviewed the images and report and concur with these findings. Electronically signed by:Heather Clements. Transcribed by: [email or web address], User Resident: ELI GONZALES Electronically Signed by: HEATHER CLEMENTS @ 12/13/2018 08:45 AM I personally read this/these film(s) with this residentSelect Medical OhioHealth Rehabilitation Hospital - DublinComment on above:Order Comment: R/O CVAHIP LEFT 1 OR 2 VWS WITH PELVISon 30-79-1840SBU LEFT 1 OR 2 VWS WITH PELVISUnKettering Health [facility] of Radiology [address] [place] [address] Patient Name: HEIDI PALMER : 1940 Sex: F Age: Race: White Pt. Location: [id number] Patient Status: I Ordered Date: 12/13/2018 10:30:00 AM Completed Date: 12/13/2018 01:12 PM Requesting Provider: PORFIRIO WINTERS Attending Provider: PRIYA BAGLEY Report Copy To: Signs & Symptoms: Pain ( specify Location) History: Patient history not available Comments: R/O FX Exam: HIP LEFT 1 OR 2 VWS WITH PELVIS HIP LEFT 1 OR 2 VWS WITH [...] IMPRESSION: No acute bony abnormality Electronically signed by:Raji Meehan. Transcribed by: [email or web address], User Resident: Electronically Signed by: RAJI MEEHAN @ 12/13/2018 02:16 PMNormalThe [facility] Willard HospitalComment on above:Order Comment: R/O FXHistory and Physicalon 45-56-6723Wxerbfw and PhysicalMR#: [id number] [facility] Pt. Name: Heidi Palmer Admitted: 12/13/2018 Date of : 1940 Attending Physician: Alex Anne MD Room #: 4CD [id number] Discharge Date: HISTORY AND PHYSICAL CHIEF COMPLAINT: Altered mental status. HISTORY OF PRESENT ILLNESS: This patient is a 78 years old with past medical history of coronary artery disease, hypertension, and diabetes, who was sent from [facility] due to possible stroke. Her son who is the primary historian said she is totally confused and disoriented. He took her to [place] due to altered mental status. The [...] think that she overtook her tramadol. In [place], they were concern about stroke; therefore, she was sent to [facility]. In our department, the patient is awake; however, she does not answer any questions. CTA of neck and brain were negative for anything acute. CT of the lumbar spine was negative. The patient was found to have a white blood count of 20.63. UA and chest x-ray were unremarkable at [place]; however, UA in our hospital was [...] stent 5 years ago. 5. Hypertension. 6. Rdu-xjkuiat-iilhqfqox diabetes. 7. Hypothyroidism. PLAN: We will order [...] A Alex Anne MD Date Dict: 12/13/2018/01:12 Cristina/Alex Anne MD Date Trans: 12/13/2018 01:34 A/debra DN_JN:[id number] Medical OhioHealth Rehabilitation Hospital - DublinLACTATE BLOODon 85-15-7587Wuqisnt molar conc0.8 mmol/LNormal0.5-2.2The [facility] Willard HospitalComment on above:Order Comment: No: Do not add to previous draw Performed By: #### 39643 #### [facility] [address] [place] [address], USAMAGNESIUM BLOODon 67-02-5239Soojruwig mass conc1.8 mg/dLLow 1.9-2.7The [facility] Will[facility] HospitalComment on above:Order Comment: No: Do not add to previous drawPerformed By: #### 32585 #### [facility] [address] [place] [address], USAOSMOLALITY BLOODon 61-46-3893Nfyhgrjufk489 mOsm/kgNormal 285-305The [facility] Willard HospitalComment on above:Performed By: #### 27873 #### [facility] [address] [place] [address], USAOSMOLALITY URINEon 62-43-3940Nwivlbozoi263 mOsm/kgNormal 50-1400The [facility] HospitalComment on above:Order Comment: Yes: Add to Previous draw if ablePerformed By: #### 05942 #### [facility] [address] [place] [address], USAPOC GLUCOSE LABon 72-84-3241Gqlmmvq mass cgok929 mg/dLHigh 70-100The [facility] HospitalComment on above:Performed By: #### 82022, 48112, 11829 #### [facility] [address] [place] [address], USAGlucose mass ssgx879 mg/bUJguv55-396Nad [facility]ard HospitalComment on above:Performed By: #### 98508, 71830, 21440 #### [facility] [address] [place] [address], USAGlucose mass fysv085 mg/pHGiit90-126Gms [facility] HospitalComment on above:Performed By: #### 75483 #### [facility] [address] [place] [address], USAPROCALCITONINon 61-50-2080Hfironw mass conc0.04 ng/mLNormal 0.00-0.10The [facility] Will[facility] HospitalComment on above:Result Comment: Suspected Lower Respiratory Tract Infection: 0.1-0.25ng/mL- Low likelihood for bacterial infection;Antibiotics discouraged.* >0.25ng/mL- Increased likelihood bacterial infection;Antibiotics encouraged. Suspected Sepsis: Strongly consider initiating antibiotics in all unstable patients. 0.1-0.5ng/mL- Low likelihood for sepsis; Antibiotics discouraged.* >0.5ng/mL- Increased likelihood sepsis; Antibiotics encouraged. >2.0ng/mL- High risk of sepsis/septic shock; Antibiotics strongly encouraged. *Recommend retesting PCT within 6-12hours if clinically indicated and initial PCT<0.5ng/mLPerformed By: #### 57126, 61705, 86418 #### [facility] [address] [place] [address], USASEDIMENTATION RATEon 03-90-2335HYS RATE0 mm/hrNormal0-20The [facility] HospitalComment on above:Performed By: #### 56082 #### [facility] [address] [place] [address], USASODIUM URINE RANDOMon 17-68-5671Yqwejh molar conc (U)102 mmol/LNormalThe [facility] HospitalComment on above:Order Comment: Yes: Add to Previous draw if ableResult Comment: There are no established reference values for random urine specimensPerformed By: #### 33472 #### [facility] [address] [place] [address], USATSH3 WITH REFLEXon 81-59-7022L0 free mass conc1.46 ng/dL Normal0.71-1.85The [facility] HospitalComment on above:Performed By: #### 95649, 31072, 23663 #### [facility] [address] [place] [address], USATSH 3RD GENERATION0.49 uIU/mLNormal0.34-5.60The [facility] HospitalComment on above:Performed By: #### 99244, 74549, 95003 #### [facility] [address] [facility] [address], USAURINALYSIS REFLEXon 10-40-6463XYDAPEESZAAWXDqvnpcynOUSI SEENThe [facility] HospitalComment on above:Order Comment: Criteria for reflexing a culture was met. Urine Culture and sensitivity will be performed.Performed By: #### 70125 #### [facility] [address] [facility] [address], USAAppearance Nom (U)CLOUDYAbnormalCLEARThe [facility] Willard HospitalComment on above:Order Comment: Criteria for reflexing a culture was met. Urine Culture and sensitivity will be performed.Performed By: #### 15340 #### [facility] [address] [place] [address], USABilirubin mass concNegativeNormalNEGATIVEThe [facility] Willard HospitalComment on above:Order Comment: Criteria for reflexing a culture was met. Urine Culture and sensitivity will be performed.Performed By: #### 89333 #### [facility] [address] [place] [address], USABLOODSMALLAbnormalNEGATIVEThe [facility] HospitalComment on above:Order Comment: Criteria for reflexing a culture was met. Urine Culture and sensitivity will be performed.Performed By: #### 36286 #### [facility] [address] [place] [address], USAColor Nom (U)YELLOWNormalYELLOWThe [facility] HospitalComment on above:Order Comment: Criteria for reflexing a culture was met. Urine Culture and sensitivity will be performed.Performed By: #### 35635 #### [facility] [address] [place] [address], USAEPISOCCNormalFEW,OCC,NONE SEENThe [facility] HospitalComment on above:Order Comment: Criteria for reflexing a culture was met. Urine Culture and sensitivity will be performed.Performed By: #### 77465 #### [facility] [address] [place] [address], USAGlucose mass conc>=500AbnormalNEGATIVEThe [facility] Will[facility] HospitalComment on above:Order Comment: Criteria for reflexing a culture was met. Urine Culture and sensitivity will be performed.Performed By: #### 59042 #### [facility] [address] [facility] [address], NMPKXAGII51 mg/dLAbnormalNEGATIVEThe [facility] Will[facility] HospitalComment on above:Order Comment: Criteria for reflexing a culture was met. Urine Culture and sensitivity will be performed.Performed By: #### 92744 #### [facility] [address] [facility] [address], USALEUK ESTERLARGEAbnormalNEGATIVEThe [facility] HospitalComment on above:Order Comment: Criteria for reflexing a culture was met. Urine Culture and sensitivity will be performed.Performed By: #### 93614 #### [facility] [address] [place] [address], USANitrite Ql (U)NegativeNormalNEGATIVEThe [facility] HospitalComment on above:Order Comment: Criteria for reflexing a culture was met. Urine Culture and sensitivity will be performed.Performed By: #### 33696 #### [facility] [address] [facility] [place] [address], [facility]O RANCHOpH (Bld)6.1Rfwxfq7.0-8.0The [facility]ard HospitalComment on above:Order Comment: Criteria for reflexing a culture was met. Urine Culture and sensitivity will be performed.Performed By: #### 48923 #### [facility] [address] [facility] [place] [address], USAProtein mass conc (U)NegativeNormalNEGATIVEThe [facility] HospitalComment on above:Order Comment: Criteria for reflexing a culture was met. Urine Culture and sensitivity will be performed.Performed By: #### 90552 #### [address] [place] [address], PRES[facility] RANCHORBC #/vol (U)11-20AbnormalNONE SEENThe [facility] HospitalComment on above:Order Comment: Criteria for reflexing a culture was met. Urine Culture and sensitivity will be performed.Performed By: #### 59415 #### [address] [place] [address], [facility]O RANCHOSPEC GRAV1.806Zdbr1.015-1.020The [facility] HospitalComcorewell health zeeland hospital on above:Order Comment: Criteria for reflexing a culture was met. Urine Culture and sensitivity will be performed.Performed By: #### 05961 #### [facility] [address] [facility] [place] [address], [facility]-RIO RANCHOWBC RE24-518ZwgcutosXAZU SEENThe [facility] HospitalComment on above:Order Comment: Criteria for reflexing a culture was met. Urine Culture and sensitivity will be performed.Performed By: #### 27678 #### [facility] [address] [place] [address], [facility]*BLOOD CULTUREon 10-02-1234Cqhunnic identified Cx Nom (Bld) Clinical Report: (D) Specimen: BLOOD CULTURE Collected: 12/12/2018 20:45 Status: Final Last Updated: 12/18/2018 07:41 CULT RES (Final) No Growth Day [facility] - DublinComment on above: Performed By: #### [id number] #### [address] [address], USACT 3D LUMBAR SPINE WO CONTRASTon [id number] 3D LUMBAR SPINE WO CONTRASTUnKettering Health [facility] Department of Radiology [address] [place] [id number] Patient Name: HEIDI PALMER : 1940 Sex: F Age: Race: White Pt. Location: [facility] Patient Status: I Ordered Date: 12/12/2018 9:00:00 PM Completed Date: 12/12/2018 09:35 PM Requesting Provider: MICHAEL GASTON Attending Provider: MICHAEL GASTON Report Copy To: Signs & Symptoms: Back Pain (specify level) History: Patient history not available Comments: R/O Fractures Exam: CT 3D LUMBAR SPINE WO CONTRAST CT 3D LUMBAR SPINE WO CONTRAST 12/12/2018 [...] at L4-L5 and L5-S1. * Cholelithiasis. Approved by:Luisana Doherty on 12/13/2018 8:43 AM EST. I, Heather Clements, have reviewed the images and report and concur with these findings. Electronically signed by:Heather Clements. Transcribed by: [email or web address], User Resident: LUISANA DOHERTY Electronically Signed by: HEATHER CLEMENTS @ 12/13/2018 01:24 PM I personally read this/these film(s) with this residentSelect Medical OhioHealth Rehabilitation Hospital - DublinComment on above:Order Comment: R/O FracturesCTA HEADon [id number] HEADUnKettering Health [facility] Department of Radiology [address] [place] [id number] Patient Name: HEIDI PALMER : 1940 Sex: F Age: Race: White Pt. Location: [facility] Patient Status: I Ordered Date: 12/12/2018 8:55:00 PM Completed Date: 12/12/2018 09:44 PM Requesting Provider: MICHAEL GASTON Attending Provider: MICHAEL GASTON Report Copy To: Signs & Symptoms: Stroke(CVA) History: Patient history not available Comments: R/O CVA Exam: CTA HEAD CTA HEAD, CTA NECK 12/12/2018 9:44 PM [...] Gonzales on 12/12/2018 10:11 PM EST. I, Heather Clements, have reviewed the images and report and concur with these findings. Electronically signed by:Heather Clements. Transcribed by: [email or web address], User Resident: ELI GONZALES Electronically Signed by: HEATHER CLEMENTS @ 12/13/2018 08:31 AM I personally read this/these film(s) with this residentSelect Medical OhioHealth Rehabilitation Hospital - DublinComment on above:Order Comment: R/O CVACTA NECKon [id number] [facility] Department of Radiology [address] [place] [id number] Patient Name: HEIDI PALMER : 1940 Sex: F Age: Race: White Pt. Location: [facility] Patient Status: I Ordered Date: 12/12/2018 8:55:00 PM Completed Date: 12/12/2018 09:44 PM Requesting Provider: MICHAEL GASTON Attending Provider: MICHAEL GASTON Report Copy To: Signs & Symptoms: Other History: Patient history not available Comments: Exam: CTA NECK CTA HEAD, CTA NECK 12/12/2018 9:44 PM [...] Gonzales on 12/12/2018 10:11 PM EST. I, Heather Clements, have reviewed the images and report and concur with these findings. Electronically signed by:Heather Clements. Transcribed by: [email or web address], User Resident: ELI GONZALES Electronically Signed by: HEATHER CLEMENTS @ 12/13/2018 08:31 AM I personally read this/these film(s) with this [facility] Vital Signs Date TimeVital SignValuePerforming LszskonkzYjhdabqv62-21-8313 11:14-0400Body lnttar970.1 cmMica Hook MD Work Phone: 1(419)[address]09-17-2025 11:14-0400 Body mass index (BMI) [Ratio]26.3 kg/n6NwbxfqMica Hook MD Work Phone: 1(711)33298 [address]09-17-2025 11:140400 Body yrnxae44.7 kgMica Hook MD Work Phone: 1(038)10[address]09-17-2025 11:14-0400 Diastolic blood mm[Hg]Mica Hook MD Work Phone: 1(852)34[address]09-17-2025 11:14-0400 Heart rate69 /Leanne Hook MD Work Phone: 1(561)15198 [address]09-17-2025 11:14-0400 Respiratory rate18 /Leanne Hook MD Work Phone: 1(535)[address] [place], [place] 6267309-17-2025 11:14-0400 SaO2% (BldA) [Mass fraction]97 %Mica Hook MD Work Phone: 1(964)15698 [address]09-17-2025 11:14-0400 Systolic blood bdocjbpv76 mm[Hg]Mica Hook MD Work Phone: 1(729)02298 [address]07-30-2025 11:17-0400 Body .1 cmJosé Antonio [place] STRIPPER SHOVEL OPERATOR-RESIDENTIAL INSTRUCTOR Work Phone: [facility]07-30-2025 11:17-0400 Body mass index (BMI) [Ratio]26.29 kg/h4VqqwkJosé [place] STRIPPER SHOVEL OPERATOR-RESIDENTIAL INSTRUCTOR Work Phone: [facility]07-30-2025 11:17-0400 Body urcxvr20.67 kgJosé Antonio [place] STRIPPER SHOVEL OPERATOR-RESIDENTIAL INSTRUCTOR Work Phone: 5(923)584-[address] [place], [place] 5485507-30-2025 11:17-0400 Diastolic blood jltxpsah35 mm[Hg]José Antonio Hills STRIPPER SHOVEL OPERATOR-RESIDENTIAL INSTRUCTOR Work Phone: 5(364)954-[address] [place], [place] 5485507-30-2025 11:17-0400 Heart rate72 /Bebo Hills STRIPPER SHOVEL OPERATOR-RESIDENTIAL INSTRUCTOR Work Phone: [facility]07-30-2025 11:17-0400 Systolic blood zaikxcxv621 mm[Hg]José Antonio Lanny STRIPPER SHOVEL OPERATOR-RESIDENTIAL INSTRUCTOR Work Phone: [facility]07-17-2025 08:20-0400 Body gdeiqt735.1 cmMica Hook MD Work Phone: [phone])[address]07-17-2025 08:20-0400 Body mass index (BMI) [Ratio]26.5 kg/o6JrrljhMica Hook MD Work Phone: 1(010)29498 [address]07-17-2025 08:20-0400 Body .4 kgMica Hook MD Work Phone: 1([phone])[address]07-17-2025 08:20-0400 Diastolic blood mm[Hg]Mica Hook MD Work Phone: 1(317)[address]07-17-2025 08:20-0400 Heart rate72 /Leanne Hook MD Work Phone: 1(058)54[address]07-17-2025 08:20-0400 Respiratory rate16 /Leanne Hook MD Work Phone: 1(617)[address] [place], [place] 6267307-17-2025 08:20-0400 SaO2% (BldA) [Mass fraction]99 %Mica Hook MD Work Phone: 1(353)246-[address] [place], [place] 6409607-17-2025 08:20-0400 Systolic blood eizzjnmh47 mm[Hg]Mica Hook MD Work Phone: [phone])[address]07-02-2025 11:47-0400 Body ndqvof649.1 cmJosé Antonio Hills STRIPPER SHOVEL OPERATOR-RESIDENTIAL INSTRUCTOR Work Phone: [facility]07-02-2025 11:47-0400 Body mass index (BMI) [Ratio]27.26 kg/t2CylnxJosé Antonio Hills STRIPPER SHOVEL OPERATOR-RESIDENTIAL INSTRUCTOR Work Phone: [facility]07-02-2025 11:47-0400 Body cpgqol62.3 kgJosé Antonio Hills STRIPPER SHOVEL OPERATOR-RESIDENTIAL INSTRUCTOR Work Phone: [facility]07-02-2025 11:47-0400 Diastolic blood mm[Hg]José Antonio Hills STRIPPER SHOVEL OPERATOR-RESIDENTIAL INSTRUCTOR Work Phone: [facility]07-02-2025 11:47-0400 Heart rate68 /Lanicristina Hills STRIPPER SHOVEL OPERATOR-RESIDENTIAL INSTRUCTOR Work Phone: [facility]07-02-2025 11:47-0400 Systolic blood lcxukboe173 mm[Hg]José Antonio Hills STRIPPER SHOVEL OPERATOR-RESIDENTIAL INSTRUCTOR Work Phone: [facility]06-25-2025 13:29-0400 Body aiplik597.[address]06-25-2025 13:29-0400 Body mass index (BMI) [Ratio]26.79 kg/m[address] 05-02-2025 13:29-0400Body irvvip98.[address] 05-02-2025 13:29-0400Diastolic blood zemogeny13 mm[Hg][address]06-25-2025 13:29-0400Systolic blood fyrsghsg43 mm[Hg][address]06-02-2025 11:21-0400Body lqownp185.1 cmMica Hook MD Work Phone: [facility]06-02-2025 11:21-0400 Body mass index (BMI) [Ratio]27.2 kg/x9WyafemMica Hook MD Work Phone: [facility]06-02-2025 11:21-0400 Body egyqvg61.3 kgMica Hook MD Work Phone: [facility]06-02-2025 11:21-0400 Diastolic blood ucermyfm93 mm[Hg]Mica Hook MD Work Phone: [facility]06-02-2025 11:21-0400 Heart rate66 /Leanne Hook MD Work Phone: [phone])979[facility]18[facility]06-02-2025 11:21-0400 Respiratory rate18 /Leanne Hook MD Work Phone: 1([phone])[address]06-02-2025 11:21-0400 SaO2% (BldA) [Mass fraction]98 %Mica Hook MD Work Phone: 1(263)[address]06-02-2025 11:21-0400 Systolic blood odqghzmy953 mm[Hg]Mica Hook MD Work Phone: 1(711)[address]05-14-2025 10:39-0400 Body opfhvf952.1 cmMica Hook MD Work Phone: 1(557)[address]05-14-2025 10:39-0400 Body mass index (BMI) [Ratio]27.1 kg/e0WzyehsMica Hook MD Work Phone: 1(588)[address] [place], [place] 6267305-14-2025 10:39-0400 Body .93 kgMica Hook MD Work Phone: 1(679)[address]05-14-2025 10:39-0400 Diastolic blood retninia13 mm[Hg]Mica Hook MD Work Phone: 1(515)[address]05-14-2025 10:39-0400 Heart rate65 /Leanne Hook MD Work Phone: [phone])[address]05-14-2025 10:39-0400 Respiratory rate12 /Leanne Hook MD Work Phone: 1([phone])[address]05-14-2025 10:39-0400 SaO2% (BldA) [Mass fraction]97 %Mica Hook MD Work Phone: 1(185)8[address]05-14-2025 10:39-0400 Systolic blood mm[Hg]Mica Hook MD Work Phone: 1([phone])[address]04-23-2025 11:03-0400 Body .1 cmMica Hook MD Work Phone: [phone]04-23-2025 11:03-0400 Body mass index (BMI) [Ratio]26.9 kg/b1GwwpnjMica Hook MD Work Phone: [phone]04-23-2025 11:03-0400 Body duuzxr55.3 kgMica Hook MD Work Phone: 1([phone])010-[address] [place], [place] 6409604-23-2025 11:03-0400 Diastolic blood lvkfecsx40 mm[Hg]Mica Hook MD Work Phone: 1(114)[address]04-23-2025 11:03-0400 Heart rate65 /Leanne Hook MD Work Phone: 1(346)[address]04-23-2025 11:03-0400 Respiratory rate18 /Leanne Hook MD Work Phone: [phone]04-23-2025 11:03-0400 SaO2% (BldA) [Mass fraction]97 %Mica Hook MD Work Phone: 1(610)[address]04-23-2025 11:03-0400 Systolic blood wgifumjk782 mm[Hg]Mica Hook MD Work Phone: 1(083)212-[address] [place], [place] 6409604-21-2025 13:11-0400 Body .1 cmJosé Antonio Hills STRIPPER SHOVEL OPERATOR-RESIDENTIAL INSTRUCTOR Work Phone: [phone]04-21-2025 13:11-0400 Body mass index (BMI) [Ratio]26.86 kg/l2ZisgnJosé Anotnio Hills STRIPPER SHOVEL OPERATOR-RESIDENTIAL INSTRUCTOR Work Phone: [phone]04-21-2025 13:11-0400 Body .21 kgJosé Antonio Hills STRIPPER SHOVEL OPERATOR-RESIDENTIAL INSTRUCTOR Work Phone: 4([phone])300-[address] [place], [place] 5485504-21-2025 13:11-0400 Diastolic blood jqkhohqc19 mm[Hg]José Antonio Hills STRIPPER SHOVEL OPERATOR-RESIDENTIAL INSTRUCTOR Work Phone: [phone])324-[address] [place], [place] 5485504-21-2025 13:11-0400 Heart rate72 /Harveyalex Hills STRIPPER SHOVEL OPERATOR-RESIDENTIAL INSTRUCTOR Work Phone: [phone]04-21-2025 13:11-0400 Systolic blood mm[Hg]José Antonio Hills STRIPPER SHOVEL OPERATOR-RESIDENTIAL INSTRUCTOR Work Phone: [phone]03-17-2025 11:35-0400 Body tbopra918.1 cmJosé Antonio Hills STRIPPER SHOVEL OPERATOR-RESIDENTIAL INSTRUCTOR Work Phone: [phone]03-17-2025 11:35-0400 Body mass index (BMI) [Ratio]26.63 kg/m8ZodldJosé Antonio [place] STRIPPER SHOVEL OPERATOR-RESIDENTIAL INSTRUCTOR Work Phone: [phone]03-17-2025 11:35-0400 Body eboggw96.58 kgJosé Antonio Hills STRIPPER SHOVEL OPERATOR-RESIDENTIAL INSTRUCTOR Work Phone: [phone]03-17-2025 11:35-0400 Diastolic blood qkygzlsk29 mm[Hg]José Antonio Hills STRIPPER SHOVEL OPERATOR-RESIDENTIAL INSTRUCTOR Work Phone: [phone]03-17-2025 11:35-0400 Heart rate64 /Harveyshericristina Lanny STRIPPER SHOVEL OPERATOR-RESIDENTIAL INSTRUCTOR Work Phone: [phone]03-17-2025 11:35-0400 Systolic blood mocafpxf430 mm[Hg]José Antonio Hills STRIPPER SHOVEL OPERATOR-RESIDENTIAL INSTRUCTOR Work Phone: [phone]02-12-2025 11:33-0500 Body cleokh793.1 cmJosé Antonio [place] STRIPPER SHOVEL OPERATOR-RESIDENTIAL INSTRUCTOR Work Phone: [phone]02-12-2025 11:33-0500 Body mass index (BMI) [Ratio]26.29 kg/e9BdkajJosé Antonio [place] STRIPPER SHOVEL OPERATOR-RESIDENTIAL INSTRUCTOR Work Phone: [phone]02-12-2025 11:33-0500 Body amfxhu38.67 kgJosé Antonio Hills STRIPPER SHOVEL OPERATOR-RESIDENTIAL INSTRUCTOR Work Phone: [phone]02-12-2025 11:33-0500 Diastolic blood rkqatbfo75 mm[Hg]José Antonio Hills STRIPPER SHOVEL OPERATOR-RESIDENTIAL INSTRUCTOR Work Phone: [facility]02-12-2025 11:33-0500 Heart rate66 /Bebo Hills STRIPPER SHOVEL OPERATOR-RESIDENTIAL INSTRUCTOR Work Phone: [facility]02-12-2025 11:33-0500 Systolic blood rofnuhph032 mm[Hg]José Antonio Hills STRIPPER SHOVEL OPERATOR-RESIDENTIAL INSTRUCTOR Work Phone: [facility]02-05-2025 12:56-0500 Body .1 cmMica Hook MD Work Phone: [phone]02-05-2025 12:56-0500 Body mass index (BMI) [Ratio]25.6 kg/x7CocqdvMica Hook MD Work Phone: [phone]02-05-2025 12:56-0500 Body bxpozdyhrmv46.7 [degF]Mica Hook MD Work Phone: 1([phone]02-05-2025 12:56-0500 Body .85 kgMica Hook MD Work Phone: 1([phone]02-05-2025 12:56-0500 Diastolic blood wrgehwfg28 mm[Hg]Mica Hook MD Work Phone: 1([phone]02-05-2025 12:56-0500 Heart rate69 /Leanne Hook MD Work Phone: 1([phone]02-05-2025 12:56-0500 Respiratory rate20 /Leanne Hook MD Work Phone: 1([phone] [place], [place] 6409602-05-2025 12:56-0500 SaO2% (BldA) [Mass fraction]97 %Mica Hook MD Work Phone: 1([phone] [address]02-05-2025 12:56-0500 Systolic blood iwllnebb288 mm[Hg]Mica Hook MD Work Phone: [phone]01-29-2025 11:18-0500 Body .1 [facility]01[facility]29-20[facility] 11:18-0500Body mass index (BMI) [Ratio]26 kg/w5GttpguafwMet[facility]01-29-2025 11:18-0500Body mxqahl59.01 kg[facility]01-29-2025 11:18-0500Diastolic blood otdqczlt54 mm[Hg][facility] 12-06-2024 11:18-0500Heart rate72 /[facility] 12-06-2024 11:18-0500Respiratory rate18 /[facility] 12-06-2024 11:18-4183WuW9% (BldA) [Mass fraction]98 %[facility]01-29-2025 11:18-0500Systolic blood yjsbyttz143 mm[Hg][facility]11-01-2024 08:48-0400Body pxhiel949.1 cmMD Mica Hook Work Phone: 1([phone] [place], [place] 6409611-01-2024 08:48-0400 Body mass index (BMI) [Ratio]25.4 kg/m2MD Mica Hook Work Phone: [phone]11-01-2024 08:48-0400 Body .54 kgMD Mica Hook Work Phone: [phone]11-01-2024 08:48-0400 Diastolic blood ehfcnenq45 mm[Hg]MD Mica Hook Work Phone: [facility]11-01-2024 08:48-0400 Heart rate66 /minMD Mica Hook Work Phone: [phone]11-01-2024 08:48-0400 Respiratory rate18 /minMD Mica Hook Work Phone: [phone]11-01-2024 08:48-0400 SaO2% (BldA) [Mass fraction]98 %MD Mica Hook Work Phone: [facility]11-01-2024 08:48-0400 Systolic blood hrbmlkqy078 mm[Hg]MD Mica Hook Work Phone: [facility]10-28-2024 13:44-0400 Body mass index (BMI) [Ratio]24.7 kg/m2MD Mica Hook Work Phone: [facility]10-28-2024 13:44-0400 Diastolic blood arnsgsgk40 mm[Hg]MD Mica Hook Work Phone: 1([phone] [place], [place] 6409610-28-2024 13:44-0400 Systolic blood puxbeade059 mm[Hg]MD Mica Hook Work Phone: [phone]10-28-2024 13:31-0400 Body .1 cmMD Mica Hook Work Phone: 1([phone]10-28-2024 13:31-0400 Body jxognz48.58 kgMD Mica Hook Work Phone: 1([phone]10-28-2024 13:31-0400 Heart rate65 /minMD Mica Hook Work Phone: [phone]27[facility]09-05-2024 11:10-0400 Body elnaja542.1 cmDavid Baldemar DO Work Phone: [phone]09-05-2024 11:10-0400 Body mass index (BMI) [Ratio]24.3 kg/g9GgaaegaDavid Villalpandodon DO Work Phone: 2(635)820-[address] [place], [place] 5485509-05-2024 11:10-0400 Body ziflez71.22 kgWijoycelynashley Baldemar DO Work Phone: 1([phone] [place], [place] 5485509-05-2024 11:10-0400 Diastolic blood mm[Hg]David Mcdermott DO Work Phone: [phone] [place], [place] 5485509-05-2024 11:10-0400 Heart rate64 /minDavid Villalpandodon DO Work Phone: [phone] [place], [place] 5485509-05-2024 11:10-0400 Systolic blood ouftdmlu537 mm[Hg]David Mcdermott DO Work Phone: [facility]08-23-2024 13:00-0400 Body wiskoktjeca26 [degF]MD Mica Hook Work Phone: [phone]51[facility]08-23-2024 13:00-0400 Diastolic blood ahunwcja14 mm[Hg]MD Mica Hook Work Phone: [phone]08-23-2024 13:00-0400 Heart rate73 /minMD Mica Hook Work Phone: 1(585)14[address]08-23-2024 13:00-0400 Respiratory rate20 /minMD Mica Hook Work Phone: 1([phone]08-23-2024 13:00-0400 SaO2% (BldA) [Mass fraction]97 %MD Mica Hook Work Phone: [phone]08-23-2024 13:00-0400 Systolic blood rcmbpnim992 mm[Hg]MD Mica Hook Work Phone: 1([phone]08-23-2024 06:00-0400 Body ukdxgr48.9 kgMD Mica Hook Work Phone: [phone]08-22-2024 14:37-0400 Body vdgtoe944.1 cmMD Mica Hook Work Phone: 1([phone]08-22-2024 04:35-0400 Inhaled oxygen flow rate2 L/minMD Mica Hook Work Phone: 1([phone]08-02-2024 10:53-0400 Body cfxkqi222.48 cmMD Mica Hook Work Phone: 1([phone] [place], [place] 6409608-02-2024 10:53-0400 Body mass index (BMI) [Ratio]25.9 kg/m2MD Mica Hook Work Phone: [phone]08-02-2024 10:53-0400 Body nwneuiuorol04.6 [degF]MD Mica Hook Work Phone: [facility]08-02-2024 10:53-0400 Body woxyje24.41 kgMD Mica Hook Work Phone: [facility]08-02-2024 10:53-0400 Diastolic blood uiqdgdvr86 mm[Hg]MD Mica Hook Work Phone: [facility]08-02-2024 10:53-0400 Heart rate62 /minMD Mica Hook Work Phone: [facility]08-02-2024 10:53-0400 Respiratory rate16 /minMD Mica Hook Work Phone: [facility]08-02-2024 10:53-0400 SaO2% (BldA) [Mass fraction]96 %MD Mica Hook Work Phone: [facility]08-02-2024 10:53-0400 Systolic blood dfddayyj788 mm[Hg]MD Mica Hook Work Phone: [facility]07-31-2024 11:20-0400 Body ivvvbr571.48 cm[facility]07-31-2024 11:20-0400Body mass index (BMI) [Ratio]26 kg/n8EefusdwmlMet[facility]07-31-2024 11:20-0400Body saclex96.66 kg[facility]07-31-2024 11:20-0400Diastolic blood zofafjde37 mm[Hg][facility] 06-07-2024 11:20-0400Heart rate61 /[facility] 06-07-2024 11:20-0400Respiratory rate18 /[facility] 06-07-2024 11:20-0055DxZ2% (BldA) [Mass fraction]97 %[facility]07-31-2024 11:20-0400Systolic blood xufkyfbx412 mm[Hg][facility]04-30-2024 11:18-0400Body .48 cmMD Mica Hook Work Phone: [phone]04-30-2024 11:18-0400 Body mass index (BMI) [Ratio]25.1 kg/m2MD Mica Hook Work Phone: [phone]04-30-2024 11:18-0400 Body izbgfd59.31 kgMD Mica Hook Work Phone: [phone]04-30-2024 11:18-0400 Diastolic blood mm[Hg]MD Mica Hook Work Phone: [phone]04-30-2024 11:18-0400 Heart rate62 /minMD Mica Hook Work Phone: 1([phone]23[facility]04-30-2024 11:18-0400 Respiratory rate16 /minMD Mica Hook Work Phone: [phone]13[facility]04-30-2024 11:18-0400 SaO2% (BldA) [Mass fraction]97 %MD Mica Hook Work Phone: [phone]04-30-2024 11:18-0400 Systolic blood mm[Hg]MD Mica Hook Work Phone: 1([phone]01[facility]04-12-2024 13:57-0400 Body knvoat932.48 cmMD Mica Hook Work Phone: [phone]88[facility]04-12-2024 13:57-0400 Body mass index (BMI) [Ratio]24.5 kg/m2MD Mica Hook Work Phone: [phone]04-12-2024 13:57-0400 Body rqtaza63.97 kgMD Mica Hook Work Phone: [phone]04-12-2024 13:57-0400 Diastolic blood taheaymx51 mm[Hg]MD Mica Hook Work Phone: [phone]04-12-2024 13:57-0400 Heart rate65 /minMD Mica Hook Work Phone: [facility]04-12-2024 13:57-0400 Systolic blood mm[Hg]MD Mica Hook Work Phone: [facility]03-20-2024 13:38-0400 Body .1 cmDavid Hayward MD Work Phone: [facility]03-20-2024 13:38-0400 Body mass index (BMI) [Ratio]22.83 kg/d3MlvuzibDavid Hayward MD Work Phone: [phone]03-20-2024 13:38-0400 Body hqelbl52.23 kgDavid Hayward MD Work Phone: 1([phone] [place], [place] 5485503-20-2024 13:38-0400 Diastolic blood ccriwhzh10 mm[Hg]David Hayward MD Work Phone: 4(524)413-[address] [place], [place] 5485503-20-2024 13:38-0400 Heart rate64 /minDavid Hayward MD Work Phone: [phone]03-20-2024 13:38-0400 Systolic blood tvgbeshw037 mm[Hg]David Hayward MD Work Phone: 1(001)732-[address] [place], [place] 5485503-11-2024 11:54-0400 Body khdupz282.48 cmMD Mica Hook Work Phone: [facility]03-11-2024 11:54-0400 Body mass index (BMI) [Ratio]25 kg/m2MD Mica Hook Work Phone: [facility]03-11-2024 11:54-0400 Body hrsqaw65.14 kgMD Mica Hook Work Phone: [facility]03-11-2024 11:54-0400 Diastolic blood xeebclhm17 mm[Hg]MD Mica Hook Work Phone: [facility]03-11-2024 11:54-0400 Heart rate59 /minMD Mica Hook Work Phone: [phone]87[facility]03-11-2024 11:54-0400 Respiratory rate18 /minMD Mica Hook Work Phone: 1(826)[address] [place], [place] 6267303-11-2024 11:54-0400 SaO2% (BldA) [Mass fraction]97 %MD Mica Hook Work Phone: 1(367)[address] [place], [place] 6267303-11-2024 11:54-0400 Systolic blood oewglxir092 mm[Hg]MD Mica Hook Work Phone: 1(900)[address] [place], [place] 6267301-31-2024 11:20-0500 Body voxhbc788.48 cmMD Mica Hook Work Phone: 1(297)[address] [place], [place] 6267301-31-2024 11:20-0500 Body mass index (BMI) [Ratio]29.2 kg/m2MD Mica Hook Work Phone: 1(949)[address] [place], [place] 6267301-31-2024 11:20-0500 Body tlpdmndaylp67 [degF]MD Mica Hook Work Phone: 1(230)[address] [place], [place] 6267301-31-2024 11:20-0500 Body maxaio72.57 kgMD Mica Hook Work Phone: 1(862)[address] [place], [place] 6267301-31-2024 11:20-0500 Diastolic blood fzkhumyx89 mm[Hg]MD Mica Hook Work Phone: 1(425)[address] [place], [place] 6267301-31-2024 11:20-0500 Heart rate64 /minMD Mica Hook Work Phone: 1(190)[address] [place], [place] 6267301-31-2024 11:20-0500 Respiratory rate16 /minMD Mica Hook Work Phone: 1([phone])[address] [place], [place] 6267301-31-2024 11:20-0500 SaO2% (BldA) [Mass fraction]98 %MD Mica Hook Work Phone: 1(043)[address] [place], [place] 6267301-31-2024 11:20-0500 Systolic blood mm[Hg]MD Miac Hook Work Phone: [facility]01-11-2024 12:45-0500 Body .75 cmDechance Nashly Other [facility]01-11-2024 12:45-0500 Body mass index (BMI) [Ratio]26.87 kg/o2Rssbwpu Scally Other [employer] [facility] [facility] Other [id number] 12:45-0500Body muxjff98.72 kgDechance Scally Other [facility]01-11-2024 12:45-0500 Diastolic blood dyymnlaf00 mm[Hg]Norma Scally Other [facility]01-11-2024 12:45-0500 Respiratory rate16 /minDeborah Scally Other [facility] Other [id number] 12:45-7834ChQ8% (BldA) [Mass fraction]97 % Norma Scally Other [facility] Other 01-11-2024 12:45-0500Systolic blood fyferquk109 mm[Hg] Norma Scally Other [facility]01-10-2024 11:31-0500 Body wktnqcadsva78.8 [degF]MD Mica Hook Work Phone: [facility]01-10-2024 11:31-0500 Diastolic blood zpdqmnij19 mm[Hg]MD Mica Hook Work Phone: [facility]01-10-2024 11:31-0500 Heart rate64 /minMD Mica Hook Work Phone: [facility]01-10-2024 11:31-0500 Respiratory rate20 /minMD Mica Hook Work Phone: [facility]01-10-2024 11:31-0500 SaO2% (BldA) [Mass fraction]98 %MD Mica Hook Work Phone: [facility]01-10-2024 11:31-0500 Systolic blood kxexgujh956 mm[Hg]MD Mica Hook Work Phone: [facility]01-02-2024 14:00-0500 Body trpcxa333.75 cmMica Hook Other [facility]01-02-2024 14:00-0500 Body mass index (BMI) [Ratio]25.47 kg/b8KjdcqwMica Hook Other [facility] Other 01-02-2024 14:00-0500Body .18 kgMica Hook Other [facility]01-02-2024 14:00-0500 Diastolic blood akfsbedq89 mm[Hg]Mica Hook Other [facility]01-02-2024 14:00-0500 Respiratory rate16 /minMica Hook Other [employer] Other 01-02-2024 14:00-0500Systolic blood nylqwblb698 mm[Hg] Mica Hook Other [facility]12-27-2023 12:37-0500 Body rtzgbqgkdni03.6 [degF]MD Mica Hook Work Phone: [facility]12-27-2023 12:37-0500 Diastolic blood ckzckcou63 mm[Hg]MD Mica Hook Work Phone: [facility]12-27-2023 12:37-0500 Heart rate56 /minMD Mica Hook Work Phone: [facility]12-27-2023 12:37-0500 Respiratory rate16 /minMD Mica Hook Work Phone: 1(029)896-[address] [place], [place] 6409612-27-2023 12:37-0500 SaO2% (BldA) [Mass fraction]93 %MD Mica Hook Work Phone: [phone] [address]12-27-2023 12:37-0500 Systolic blood fggleqgm956 mm[Hg]MD Mica Hook Work Phone: 1(663)72798 [address]12-27-2023 07:35-0500 Body wvyjps469.48 cmMD Mica Hook Work Phone: 1([phone])[address]12-24-2023 04:30-0500 Body thbfji85 kgMD Mica Hook Work Phone: 1(609)[address] [place], [place] 6267312-08-2023 13:04-0500 Body agvqplhxxpc78.5 [degF]MD Mica Hook Work Phone: 1(097)[address] [place], [place] 6267312-08-2023 13:04-0500 Diastolic blood fgoatdci07 mm[Hg]MD Mica Hook Work Phone: 1([phone] [address]12-08-2023 13:04-0500 Heart rate67 /minMD Mica Hook Work Phone: 1(740)65398 [address]12-08-2023 13:04-0500 Respiratory rate18 /minMD Mica Hook Work Phone: 1(925)[address]12-08-2023 13:04-0500 SaO2% (BldA) [Mass fraction]100 %MD Mica Hook Work Phone: 1([phone]12-08-2023 13:04-0500 Systolic blood hrpjuklg010 mm[Hg]MD Mica Hook Work Phone: 1(313)12[address]12-08-2023 06:17-0500 Body mvewgi75.4 kgMD Mica Hook Work Phone: 1([phone]12-06-2023 15:36-0500 Inhaled oxygen flow rate1 L/minMD Mica Hook Work Phone: [phone])[address]12-05-2023 13:13-0500 Body symbqo512.48 cmMD Mica Hook Work Phone: 1(761)[address] [place], [place] 6267312-05-2023 12:33-0500 Body mass index (BMI) [Ratio]27.1 kg/m2MD Mica Hook Work Phone: 1(720)[address] [place], [place] 6267312-04-2023 17:28-0500 Inhaled oxygen flow rate2 L/minMD Mica Hook Work Phone: 1(381)[address] [place], [place] 6267312-04-2023 17:26-0500 Diastolic blood mm[Hg]MD Mica Hook Work Phone: 1(330)[address] [place], [place] 6267312-04-2023 17:26-0500 Heart rate78 /minMD Mica Hook Work Phone: 1(035)[address] [place], [place] 6267312-04-2023 17:26-0500 Respiratory rate18 /minMD Mica Hook Work Phone: 1(948)[address] [place], [place] 6267312-04-2023 17:26-0500 SaO2% (BldA) [Mass fraction]99 %MD Mica Hook Work Phone: 1(122)[address] [place], [place] 6267312-04-2023 17:26-0500 Systolic blood txpklqoq435 mm[Hg]MD Mica Hook Work Phone: 1(052)[address] [place], [place] 6267312-04-2023 17:19-0500 Body wleduj546.48 cmMD Mica Hook Work Phone: 1(949)[address] [place], [place] 6267312-04-2023 17:19-0500 Body coocssqeyfk37.1 [degF]MD Mica Hook Work Phone: 1([phone]12-04-2023 17:19-0500 Body egchza43.2 kgMD Mica Hook Work Phone: 1([phone]12-04-2023 11:00-0500 Body .75 cmNorma Diaz Other [facility]12-04-2023 11:00-0500 Body mass index (BMI) [Ratio]25.47 kg/e3Qrpizrz Scally Other [employer] [facility] Other 12-04-2023 11:00-0500Body adfnqn44.18 kgDeborah Scally Other [facility]12-04-2023 11:00-0500 Diastolic blood duebdcjt29 mm[Hg]Norma Scally Other [facility]12-04-2023 11:00-0500 Respiratory rate16 /minDeborah Scally Other [facility] Other 12-04-2023 11:00-0898WmR5% (BldA) [Mass fraction]96 % Norma Scally Other [facility] Other 12-04-2023 11:00-0500Systolic blood mnkjnycs358 mm[Hg] Norma Scally Other [facility]09-11-2023 13:00-0400 Body quqhgs021.56 cmMica Hook Other [employer] Other 09-11-2023 13:00-0400Body mass index (BMI) [Ratio] 23.38 kg/b2QczzniMica Hook Other [employer] Other 09-11-2023 13:00-0400Body icpqhn16.78 kgMica Hook Other [employer] Other 09-11-2023 13:00-0400Diastolic blood xaczmzuv79 mm[Hg] Mica Hook Other [employer] Other 09-11-2023 13:00-0400Respiratory rate12 /minMica Hook Other [employer] Other 09-11-2023 13:00-0400Systolic blood jthsjobt902 mm[Hg] Mica Hook Other [employer] Other 08-14-2023 13:45-0400Body awvfkt562.56 cmMica Hook Other [employer] Other 08-14-2023 13:45-0400Body mass index (BMI) [Ratio] 23.69 kg/b9QqpldrMica Hook Other [employer] Other 08-14-2023 13:45-0400Body uphsmt88.6 kgMica Hook Other [employer] Other 08-14-2023 13:45-0400Diastolic blood ticveduv00 mm[Hg] Mica Hook Other [employer] Other 08-14-2023 13:45-0328DdW2% (BldA) [Mass fraction]95 % Mica Hook Other [employer] Other 08-14-2023 13:45-0400Systolic blood lhxtmsak406 mm[Hg] Mica Hook Other [employer] Other 03-09-2023 12:55-0500Body adgmfl072.1 cmMica Hook Work Phone: [id number]-Ekgdh [place] [facility] 250 DO Work Phone: 1(241) [phone] 12:55-0500Body mass index (BMI) [Ratio] 23.46 kg/e9BacwcbMica Hook Work Phone: [id number]-Xnzpw [place] [facility] 250 DO Work Phone: 1(235) 595-674003-09-2023 12:55-0500Body surface area Derived from formula1.71 p4OzqpfuMica Hook Work Phone: [id number]-Xtyhl [place] [facility] 250 DO Work Phone: 1(418) 807-260503-09-2023 12:55-0500Body kbsedg23.96 kgMica Hook Work Phone: 1(375) 450-4636891-1944TW-Bngwa [place] [employer] 250 DO Work Phone: 1(212) 623-127403-09-2023 12:55-0500Diastolic blood mm[Hg] Mica Hook Work Phone: [id number]-Fegod [place] [employer] 250 DO Work Phone: 1(171) 860-654003-09-2023 12:55-0500Heart rate58 /minMica Hook Work Phone: 1(498) 536-6145436-6312LJ-Deh[place] [address] DO Work Phone: 1(345) [phone] 12:55-0500Systolic blood jwlkdujs711 mm[Hg] Mica Hook Work Phone: 1([phone]) [phone]-Rxqji [place] [address] DO Work Phone: 1([phone] 11:30-0500Body gopxys132.56 cmMica Hook Other [facility] Other 01-16-2023 11:30-0500Body mass index (BMI) [Ratio] 24.03 kg/w6UeigdoMica Hook [facility] Other 01-16-2023 11:30-0500Body nraojv18.5 kgMica Hook [facility] Other 01-16-2023 11:30-0500Diastolic blood mm[Hg] Mica Hook Other [place] [facility] Other 01-16-2023 11:30-0984TmT5% (BldA) [Mass fraction]97 % Mica Hook Other [place] [facility] Other 01-16-2023 11:30-0500Systolic blood agwcvnza932 mm[Hg] Mica Hook Other [place] [facility] Other 03-11-2022 13:49-0500Diastolic blood jalzbdyj96 mm[Hg] Mica Hook Work Phone: [id number]-Dvmdv [place] 250 DO Work Phone: 1([phone] 13:49-0500Systolic blood fqeegstt34 mm[Hg] Mica Hook Work Phone: [phone]-Eltbn [place] 250 DO Work Phone: [phone] 13:44-0500Body luaovy275.1 cmMica Hook Work Phone: [phone]-Mtnnr [place] 250 DO Work Phone: [phone] 13:44-0500Body mass index (BMI) [Ratio]23.8 kg/l3YrntgnMica Hook Work Phone: [phone]-Vtbmm [place] [facility] 250 DO Work Phone: [phone] 13:44-0500Body surface area Derived from formula1.72 i3CxriouMica Hook Work Phone: [phone]-Ljtdq [place] [facility] 250 DO Work Phone: [phone] 13:44-0500Body mjxihw20.86 kgMica Hook Work Phone: [phone]-Xptma [place] [facility] [place] 250 DO Work Phone: [phone] 13:44-0500Diastolic blood ohiznmkn93 mm[Hg] Mica Hook Work Phone: [phone]-Zbrqv [place] [facility] 250 DO Work Phone: [phone] 13:44-0500Systolic blood mm[Hg] Mica Hook Work Phone: [phone]-Qeevb [place] [facility] 250 DO Work Phone: Encounters Encounter DateEncounter TypeCare ProviderFacilityStart: 07-25-2025 End: 31-13-7146idwdhlixrpArkizd E Braun MD Work Phone: [facility] Work Phone: Start: 07-25-2025 End: 80-48-9001Ljssgvp encounter procedureNorma Diaz [facility] Work Phone: Start: 06-20-2025 End: 76-21-3718injsdbpckpThhmth E Braun MD Work Phone: [facility] Work Phone: Start: 06-20-2025 End: 85-58-0200Qgxtprt encounter Daniel Rose -[facility] Work Phone: Start: 06-06-2025 End: 52-24-9762Ydugdx outpatient visit 15 minutesJosé [place] Hills APRNBARNSTABLE COUNTY HOSPITAL Work Phone: [facility] CenterComment on above:Coronary artery disease involving tonawanda heart, unspecified vessel or lesion type, unspecified whether angina present (Primary Dx); Edema, unspecified type; Essential hypertension, benign; Hyperlipidemia, unspecified hyperlipidemia type; Cardiomyopathy, ischemic; BMI 26.0-26.9,adultStart: 06-06-2025 End: 97-11-8086htwkjzxnvnZLLMC K [facility] AmbulatoryStart: 05-24-2025 End: 54-08-4835Bkozgzci ReferredNorma Diaz APRN-[facility] Work Phone: Start: 05-24-2025 End: 90-79-0964ygjbizrzejMiybfg E Braun MD Work Phone: [facility] Work Phone: Start: 05-24-2025 End: 78-00-0852Sdzzyam encounter procedureAndrechance Diaz STRIPPER SHOVEL OPERATOR-[facility] Work Phone: Start: 84-81-0647Egz-patient / Non-visitJosé [place] Hills APRN-[facility] Work Phone: Start: 05-16-2025 End: 17-02-7118Qeuagks encounter procedureJosé [place] Hills STRIPPER SHOVEL OPERATOR-[facility] [place] Work Phone: Start: 05-16-2025 End: 33-88-7980lvttjlnvtnEbkvfy E Braun MD Work Phone: [facility] Work Phone: Start: 05-09-2025 End: 90-71-3417Bqinbg outpatient visit 25 minutesJosé Antonio Hills STRIPPER SHOVEL OPERATORBARNSTABLE COUNTY HOSPITAL Work Phone: [facility] CenterComcorewell [facility] on above:Coronary artery disease involving tonawanda heart, unspecified vessel or lesion type, unspecified whether angina present (Primary Dx); Edema, unspecified type; Essential hypertension, benign; Hyperlipidemia, unspecified hyperlipidemia type; Cardiomyopathy, ischemic; BMI 27.0-27.9,adult; Dyspnea on exertion; Type 2 diabetes mellitus with other circulatory complicationsStart: 05-09-2025 End: 81-54-5805fxvfbdsereURLCSWarm Springs Medical Center AmbulatoryStart: 05-02-2025 End: 04-53-0398Alcxxhajyf hospital visit by Ravi Scott Echo/Vasc Room [address] [place], [place] [address]Comment on above:Cardiomyopathy, ischemic; Edema, unspecified typeStart: 05-02-2025 End: 21-71-4939xogllzbpnyHIYGJNewark Hospital Start: 04-09-2025 End: 68-48-0405sikiebpuemAnxcho E Braun MD Work Phone: [facility] Work Phone: Start: 04-09-2025 End: 17-58-2026Nnrmiad encounter procedureMica Hook MD Work Phone: [facility] Physician [facility] Work Phone: Start: 03-21-2025 End: 66-06-0596asjmyaheomPpotef E Braun MD Work Phone: [facility] Work Phone: Start: 03-21-2025 End: 35-96-1899Vfoscij encounter procedureMica Hook MD Work Phone: [facility] Physician [facility] Work Phone: Start: 02-28-2025 End: 24-24-2541ezikhengmuOrjcgj E Braun MD Work Phone: [facility] Work Phone: Start: 02-28-2025 End: 92-83-8821Nogqfur encounter procedureMica Hook MD Work Phone: [facility] Physician [facility] Work Phone: Start: 02-26-2025 End: 00-29-2660Etosan outpatient visit 25 [facility] hospitalJosé [place] Hills STRIPPER SHOVEL OPERATOR-[facility] Work Phone: uh [facility] CenterComment on above:Edema, unspecified type (Primary Dx); Coronary artery disease involving tonawanda heart, unspecified vessel or lesion type, unspecified whether angina present; Cardiomyopathy, ischemic; BMI 26.0-26.9,adult; Other cardiomyopathyStart: 02-26-2025 End: 62-68-3527ntqahfncpxIBIAG K [facility] AmbulatoryStart: 02-24-2025 End: 57-82-3158WkxybrFtzqjmiy D Zahler DO Work Phone: noms NB OPHTComment on above:Age-related nuclear cataract of both eyesStart: 02-06-2025 End: 53-05-4515NynfjlYzdmmkug D Zahler DO Work Phone: noms NB OPHTComment on above:Age-related nuclear cataract of both eyesStart: 73-46-3183Oba-patient / Non-visitMica Hook MD Work Phone: [facility] GroupProsser [facility] Professional Co Work Phone: Start: 01-24-2025 End: 02-14-5330ttolwopjjmHkwsux E Braun MD Work Phone: [facility] Work Phone: Start: 01-24-2025 End: 08-14-8026Vpolkft encounter procedureMica Hook MD Work Phone: [facility] Work Phone: Start: 01-22-2025 End: 35-88-5010Lhyqmoq encounter procedureMica Hook MD Work Phone: [facility] [place] Work Phone: Start: 01-22-2025 End: 99-01-9407cueuzpundzShkhax E Braun MD Work Phone: [facility] Work Phone: Start: 01-22-2025 End: 50-05-4596Jiabun outpatient visit 15 minutesJosé Antonio Hills STRIPPER SHOVEL OPERATOR-RESIDENTIAL INSTRUCTOR Work Phone: uh FirelandsComment on above:Edema, unspecified type (Primary Dx); Coronary artery disease involving tonawanda heart, unspecified vessel or lesion type, unspecified whether angina present; Cardiomyopathy, ischemic; Essential hypertension, benign; Hyperlipidemia, unspecified hyperlipidemia type; BMI 26.0-26.9,adult; Localized swelling, mass and lump, left lower limbStart: 01-22-2025 End: 23-52-1564egvvqjfskmVTRMJMemorial Hospital and ManorStart: 68-05-5093Gxu-patient / Non-visitMica Hook MD Work Phone: [facility] Professional [facility] Work Phone: Start: 12-20-2024 End: 82-87-3074Xttuni outpatient visit 25 minutesJosé [place] Hills STRIPPER SHOVEL OPERATOR-RESIDENTIAL INSTRUCTOR Work Phone: [facility] CenterComment on above:Cardiomyopathy, ischemic (Primary Dx); Coronary artery disease involving tonawanda heart, unspecified vessel or lesion type, unspecified whether angina present; Coronary artery disease involving tonawanda coronary artery of tonawanda heart without angina pectoris; Essential hypertension, benign; Hyperlipidemia, unspecified hyperlipidemia type; Type 2 diabetes mellitus without complication, without long-term current use of insulin (Multi); Edema, unspecified type; Coronary artery disease, unspecified vessel or lesion type, unspecified whether angina present, unspecified whether tonawanda or transplanted heart; Dyspnea on exertion; BMI 26.0-26.9,adultStart: 12-20-2024 End: 63-06-6199eorzxagoogLWSASPiedmont [facility] Hospital AmbulatoryStart: 65-62-1727Yniuahdhdd RecurringMica Hook MD Work Phone: [facility] [place] [facility] Work Phone: Start: 12-13-2024 End: 78-64-8255cuognznvycVsmowf E Braun MD Work Phone: [facility] Work Phone: Start: 12-13-2024 End: 45-83-5162Rtczesl encounter Marycarmen Hook MD Work Phone: [facility] Work Phone: Start: 12-06-2024 End: 77-75-4903ituuxnqkseFaaifqenwProtestant Deaconess Hospital Work Phone: Start: 12-06-2024 End: 65-37-3361Ezsdwle encounter procedureW[facility] Work Phone: Start: 10-19-2024 End: 85-76-7355Oeisemvmpf hospital visit by physicianJacquelyn Nieto Admin Room [address] [place], [place] [address]Start: 10-19-2024 End: 67-92-4129umkghbjtsiDPPRAHCChildren's Hospital of Columbustart: 10-09-2024 End: 36-79-4466clolfbrxtkUDFJOHF S [facility] Hamiltontart: 09-08-2024 End: 96-93-0735jbbftphmqwIJ Mica Klein Hook Work Phone: [facility] Work Phone: Start: 09-08-2024 End: 78-54-2756Rxmoyre encounter procedureMD Cheemaia Chance Work Phone: [facility] Work Phone: Start: 83-55-2006Xiv-patient / Non-visitMD Mica Hook Work Phone: [facility] Work Phone: Start: 50-29-4517Pdt-patient / Non-visit Mica Chance Work Phone: [facility] Work Phone: Start: 09-04-2024 End: 88-93-7295mcvmnkduxsMU Marcia E Braun Work Phone: [facility] Work Phone: Start: 09-04-2024 End: 06-16-3586Lhgmumd encounter procedureMD Mica Hook Work Phone: [facility] Work Phone: Start: 07-13-2024 End: 74-87-8266Omrgfdiunrgc care manage srvc 14 day dischargeWybaldev [place] [facility] Work Phone: [facility] on above:Coronary artery disease involving tonawanda heart, unspecified vessel or lesion type, unspecified whether angina present; Essential hypertension, benign; History of PTCA; Hyperlipidemia, unspecified hyperlipidemia type; Cardiomyopathy, ischemic; Edema, unspecified type; Type 2 diabetes mellitus without complication, without long-term current use of insulin (Multi); BMI 24.0-24.9, adult; Never smoked cigarettes; ACC/AHA stage C congestive heart failure due to ischemic cardiomyopathy (Multi) Start: 07-13-2024 End: 43-79-6864qphlftxestMORZEGI S [facility] AmbulatoryStart: 07-12-2024 End: 40-49-5873vgdehnfhgjLW Mica Hook Work Phone: [facility] Work Phone: Start: 07-12-2024 End: 02-37-9301Ujfhsje encounter procedureMD Mica Chance Work Phone: [facility] Work Phone: Start: 49-77-5570Rsl-patient / Non-visitMD Mica Hook Work Phone: [facility] Physician Group-[facility] Pulmonary Disease Work Phone: Start: 55-04-3787Wnq-patient / Non-visitMD Mica Hook Work Phone: [facility]ician Group-[facility] Work Phone: Start: 06-29-2024 End: 92-54-1924Dndmqybpzj and management of inpatientMD Mica Chance Work Phone: [facility]-[address] [place] [address] Critical Care Work Phone: Start: 06-29-2024 End: 09-20-3716coqhmhhfzhWKAVUSL PROVIDERFacility:METROHealthStart: 06-29-2024 Non-patient / Non-visitMD Mica Hook Work Phone: [facility] Work Phone: Start: 06-16-2024 End: 37-58-6403tfscgbfvjgBHWGQBRG D ZAHLERNot AvailableStart: 06-09-2024 End: 83-01-0621ldbflrnxeqUT Mica Ernie Chance Work Phone: [facility] Work Phone: Start: 06-09-2024 End: 41-94-7875Pcrkdyj encounter procedureMD Mica Hook Work Phone: [facility] Work Phone: Start: 08-48-9960Fucjzufaed RecurringMD Mica Hook Work Phone: [facility] Acute Work Phone: Start: 06-07-2024 End: 47-78-9978cpvomsqjiaRinrbpzgkProtestant Deaconess Hospital Work Phone: Start: 06-07-2024 End: 68-54-2878Irjiqzw encounter procedureFirriverside [facility] medical center Physician [facility] Work Phone: Start: 04-19-2024 End: 46-52-4808glfhhcgunhRtitezvvuThe [facility] Hospital Work Phone: Start: 04-19-2024 End: 22-49-9233Acuzbwp encounter procedureW[facility] Work Phone: Start: 04-10-2024 End: 24-06-0984koodxdpewqWH Mica Hook Work Phone: [facility] Work Phone: Start: 04-10-2024 End: 03-12-5574Hbijbue encounter procedureMD Mica Hook Work Phone: [facility] Start: 33-89-8378Gbz-patient / Non-visitMD Mica Hook Work Phone: [facility] Physician [facility] [employer] Work Phone: Start: 03-07-2024 End: 15-71-1623hllcqdzkurEH Marcia E Braun Work Phone: [facility] Work Phone: Start: 03-07-2024 End: 10-16-6782Mlivmfs encounter procedureMD Mica Hook Work Phone: [facility] Physician [facility] Work Phone: Start: 02-18-2024 End: 97-23-4224wzfwruhzlcAT Mica Hook Work Phone: [facility] Work Phone: Start: 02-18-2024 End: 67-04-7360Cusdcxz encounter procedure Mica Hook Work Phone: [facility] Physician Group-[facility] Work Phone: Start: 01-26-2024 End: 54-76-4490Naewlp outpatient visit 25 minutesDavid Hayward MD Work Phone: [facility] CenterComment on above:Coronary artery disease involving tonawanda coronary artery of tonawanda heart without angina pectoris (Pr imary Dx); Essential hypertension, benign; History of PTCA; Mixed hyperlipidemia; Edema, unspecified type; Never smoked cigarettesStart: 01-17-2024 End: 96-32-9141Nhplstz encounter procedureMD Mica Hook Work Phone: [facility] Physician Group-[facility] Work Phone: Start: 01-10-2024 End: 61-48-0962Aiuozii encounter procedureMD Cheemaia Chance Work Phone: [facility] Physician Group-[facility] Work Phone: Start: 01-10-2024 End: 85-53-8075Cfxmzuz encounter procedure Mica Hook Work Phone: [facility] Start: 56-34-1783Aqg-patient / Non-visitMD Cheemaia Chance Work Phone: [facility] Work Phone: Start: 12-17-2023 End: 34-64-4790gyzpcqgfyrJildvz Braun Other [facility] [employer] Other Start: 21-66-8829Dfnxoacjo encounterMica HookFayette County Memorial Hospitaltart: 24-58-6047Kojwlwr evaluation of patient and report Norma Hidalgoelandrosemary Coordinated Care ClinicStart: 12-15-2023 End: 02-35-9729jppmngqchnJE Marcia E Braun Work Phone: [facility] [employer] Other Start: 12-15-2023 End: 16-76-1207Tsfmgnolvb RecurringMD Mica Hook Work Phone: [facility] [place] Work Phone: Start: 12-13-2023 End: 36-27-6774ugztxgiywjPwjwfl Chance Other [facility] [employer] Other Start: 63-96-7559Yymgrfgkv encounterMica HookOhioHealth O'Bleness Hospital ClinicStart: 12-08-2023 End: 99-30-4656pmiybsqqjfJS Marcia E Braun Work Phone: [facility] Work Phone: Start: 12-08-2023 End: 06-08-6454Mrinpqs encounter procedureMD Mica Hook Work Phone: [facility] [place] [facility] Work Phone: Start: 15-09-2614Ihoclsqqbt RecurringMD Mica Hook Work Phone: [facility] [place] [facility] Work Phone: Start: 01-77-9973Rehassecce RecurringMD Mica Hook Work Phone: [facility] Work Phone: Start: 11-18-2023(DM) DiabetesNorma [facility] Centerrosemary Coordinated Care ClinicStart: 11-18-2023 End: 00-31-0460bisovkemjjBoxklft Scally Other [facility] [employer] Other Start: 11-18-2023 End: 05-89-3673Fibkczf encounter procedureMD Mica Hook Work Phone: [facility] Work Phone: Start: 00-65-6774Xmwxou follow up visit related to original pxThomas OlexaFPG [place] OrthopedicsStart: 11-16-2023 End: 68-79-7493lifqllphtyQC Mica Hook Work Phone: [facility] Work Phone: Start: 11-16-2023 End: 83-32-3925Ojcotko encounter procedureMD Mica Hook Work Phone: [facility] Start: 11-09-2023 End: 54-25-5728kajxclvbsgUwtuuh Braun Other [employer] Other Start: 25-14-4660Uspxof outpatient visit 25 minutes Mica Ortiz [facility] ClinicStart: 11-09-2023 End: 56-68-8925Wtsbtea encounter procedureMD Mica Hook Work Phone: [facility] Physician Group-[facility] Work Phone: Start: 11-05-2023 End: 76-27-6482lafoynvmvoLapsae Braun Other [employer] Other Start: 37-16-9454Bwgpjhwfu encounterMarcia MatthewNovant Health Rehabilitation Hospital ClinicStart: 11-02-2023 End: 95-35-0048gnbnzvgnaxZghbgy Braun Other [employer] Other Start: 54-03-7882Kuvdqkuum encounterMarcia ChanceFayette County Memorial Hospitaltart: 10-26-2023 End: 43-30-9560eqkaszbxkpNkzmdy Braun Other [employer] Other Start: 85-56-1707Txfdxztfd encounterMarcia ChanceFayette County Memorial Hospitaltart: 10-15-2023 End: 68-64-4807Waxpubijjw and management of inpatientMD Mica Chance Work Phone: [facility] [place] [facility] Work Phone: Start: 10-11-2023 End: 41-28-1024Pdghthuvpb and management of inpatientMD Mica Hook Work Phone: [facility] [place] [facility] Work Phone: Start: 10-11-2023 End: 92-49-5683wpfvbjoisxSiwimtw Scally Other [employer] [place] [employer] Other Start: 06-92-9346KTXB visit new patientRh[facility] Coordinated Care ClinicStart: 04-84-8962Ipagiewjto RecurringMD Mica Hook Work Phone: [facility] Work Phone: Start: 10-11-2023 End: 36-31-2028Bxuabjn encounter procedureMD Mica Hook Work Phone: [facility] Physician Group-[facility] Work Phone: Start: 10-07-2023(Televisit) TelevisitMica [facility] Centertart: 10-07-2023 End: 78-44-6522uuemvfbmoiQfdcxj Braun Other [employer] Other Start: 09-13-2023 End: 71-95-3937dhcnqetrspHzgnki Braun Other [employer] Other Start: 01-00-8711Epwdcjxxp encounterMarchiquita [facility] ClinicStart: 09-08-2023 End: 45-84-7167lmpznpjesbXQ Mica Hook Work Phone: [facility] Work Phone: Start: 09-08-2023 End: 40-78-1386Ownunvis ReferredMD Mica Hook Work Phone: [facility] [place] Work Phone: Start: 08-19-2023 End: 39-71-8198jnffbgehujEfdjac Braun Other [employer] Other Start: 40-92-1493Ceqnesshh encounterMarcicristina Saez Medical ClinicStart: 08-05-2023 End: 89-57-2192oatajykdnnCmuitf Hook Other [employer] Other Start: 49-95-3407Jdokqaopt encounterMarcicristina Saez Medical ClinicStart: 07-26-2023 End: 19-46-9049nutljzjdcwLjxhjb Braun Other [employer] Other Start: 92-52-5560Xkkfnssoq encounterMarchiquita Saez Medical ClinicStart: 07-19-2023 End: 56-36-1241rinhfvnrlxRitbqf Braun Other [employer] Other Start: 98-34-7205Kfogbx outpatient visit 15 minutes Mica [facility] ClinicStart: 06-23-2023 End: 09-80-5572fruxgilakaYbrjcx Braun Other [employer] Other Start: 48-19-6527Fjqqfmhef encounterMarcicristina Saez Medical ClinicStart: 06-21-2023 End: 99-57-6805taxhbzhgjbFvosdm Chance Other [employer] Other Start: 89-84-7615Prahnq outpatient visit 25 minutes Mica [facility] ClinicStart: 05-18-2023 End: 07-69-4091nexdgkmbkaEbtzvo Braun Other [facility] [employer] Other Start: 67-08-0264Pzqtwrlic encounterMica Saez Medical ClinicStart: 02-17-2023 End: 26-73-5003gklhxvudlsKaevsq Braun Other [facility] [employer] Other Start: 72-32-9641Clkrrebsr encounterMarchiquita Ortiz [facility] ClinicStart: 22-70-6755Qtgazp follow up visit related to original pxColleen CalveyFPG [place] OrthopedicsStart: 02-16-2023 End: 19-11-6552lryuhwwcpkDN Marcia E Braun Work Phone: [facility] Work Phone: Start: 02-16-2023 End: 10-42-5075Tcgttww encounter procedureMD Mica Hook Work Phone: [facility] Start: 01-28-2023 End: 89-95-5155epevrdoqvvSelkigr Calvey Other [facility] [employer] Other Start: 87-72-5353Ezobgubwm encounterColleen CalveyFPG [place] OrthopedicsStart: 96-80-8470Exrycc outpatient visit 25 minutesMica Hook Work Phone: [phone]-Jyscr [place] [facility] [address] DO Work Phone: Start: 53-67-6849kbuxemhhivTzCharu Hayward IIFacility:34623Dihmp: 48-29-9589Exbxjc follow up visit related to original px Uma CalveyFPG [place] OrthopedicsStart: 01-06-2023 End: 79-51-6454ygrguocpxxAN Marcia E Braun Work Phone: [facility] Work Phone: start: 01-06-2023 End: 44-25-0243Ediqgit encounter procedureMD Mica Hook Work Phone: [facility] Start: 12-23-2022 End: 36-66-9360xaamgutcdsPlalbmw Calvvishal Other [employer] Other Start: 07-81-6374Amvolgpvr encounterColleen CalvvishalFPG [place] OrthopedicsStart: 12-22-2022 End: 88-35-9634kgyzxxzaekYwxeswg Calvey Other [employer] Other Start: 98-24-6638WGQN visit new patientColleen Garrick FPG [facility] OrthopedicsStart: 12-18-2022 End: 30-70-5744rykzzrqhuxTX MICA HOOKFacility:D0Hsekw: 11-26-2022 End: 56-76-1211nsdsefioowZdwcsu Braun Other [employer] Other Start: 79-25-4825Aexrvucjz encounterMarcicristina ChanceELY [facility] ClinicStart: 42-52-6251Sncomv outpatient visit 25 minutesMarcicristina HookOhioHealth O'Bleness Hospital ClinicStart: 11-23-2022 End: 16-00-2021iaiawlzerkDR MICA HOOKFacility:K5Wsywx: 47-97-5041Bz Renewal Mica Hook Work Phone: [phone]-Eduda [place] [facility] [address] DO Work Phone: Start: 03-02-2022 End: 81-57-7564asaypgtnttKO MARCIA E BRAUNFacility:I0Cgczq: 02-25-2022 End: 53-00-9198jknfclwbtoUG MARCIA E BRAUNFacility:N7Qnlmr: 02-25-2022 End: 91-46-4834hikbwrpofkNJ MARCIA E BRAUNFacility:V2Jkulp: 03-35-2691Gmfhnx outpatient visit 15 minutesMica Hook Work Phone: [phone]-Mwoyg [place] [facility] 250 DO Work Phone: Start: 35-90-8899hbyerlcyrlHv. David Hayward IIFacility:72592Rwzqj: 37-94-8946Fu Alicia Hayward MD Work Phone: [phone]-Umspf [place] [facility] [address] DO Work Phone: Start: 82-10-5305Oo Alicia Hayward MD Work Phone: [phone]-Qrieb [place] [facility] [facility] DO Work Phone: Start: 66-91-9521Fwpqx health examinationMica Hook Other [place] [employer] Other Start: 12-13-2018 End: 23-33-9813Ffkiwlsfjj and management of inpatientGABINOCristina CHANCEFacility:[facility] Procedures DateProcedureProcedure DetailPerforming ClinicianStart: 08-24-2502Dhili volume recorder pneumoplethysmographyMica Hook MD Work Phone: Start: 07-88-9925Jcjoyh scan of lower limb veinsMica Hook MD Work Phone: Start: 02-96-8351BE of chest without contrastMica Hook MD Work Phone: Start: 33-16-6369Htgu blood pool gated planar 1 study rest/stressDavid Mcdermott DO Work Phone: Start: 70-72-6336ZS Closure Device Placement 0MD Mica Hook Work Phone: Start: 76-52-1476XM LHC & COR AngioMD Mica Hook Work Phone: Start: 93-20-1301RX PCI AMI 1st Vessel LAD JUDY Hook Work Phone: Start: 40-30-6328PQ Stent 1st Vessel RCA DESMD Mica Hook Work Phone: Start: 58-01-0922BP of chest without contrastMD Mica Hook Work Phone: Start: 94-33-5624Vwnit X-ray of right hipMD Mica Hook Work Phone: Start: 56-77-2539Ljxxorhoz mammography of right breast MD Mica Hook Work Phone: Start: 10-14-9659Rubhkbgv emission tomography with computed tomographyMD Mica Hook Work Phone: Start: 45-65-3301Rvogo X-ray of right hipMD Mica Hook Work Phone: Start: 76-95-4564Nexkvtj of percutaneous transluminal coronary angioplastyHistory of PTCCarmen Hayward MD Work Phone: Start: 62-35-9418Eduyn cultureMD Mica Hook Work Phone: Start: 01-08-6342Dupqd chest X-rayMD Mica Hook Work Phone: Start: 20-59-9621VNWD-CoV-2, Influenza & RSV (PCR)MD Mica Hook Work Phone: Start: 96-57-5570Kgnyv cultureMD Mica Hook Work Phone: Start: 94-90-8881Hviaw chest X-rayMD Mica Hook Work Phone: Start: 82-77-8636Fuyac X-ray of right hipMD Mica Hook Work Phone: Start: 54-24-8139Nhznns scan of lower limb veinsMD Mica Hook Work Phone: Start: 90-36-7515Hdypu X-ray of left elbowMD Mica Hook Work Phone: Start: 49-84-6841Dkxhk X-ray of right hipMD Mica Hook Work Phone: Start: 07-16-5439Dfjht cultureMD Mica Hook Work Phone: Start: 48-47-1223Yxozztg hip replacement with bipolar prosthesisMD Mica Hook Work Phone: Start: 25-46-6868JC of thorax with contrastMD Mica Hook Work Phone: Start: 75-34-8906EP cervical spine without contrastMD Mica Hook Work Phone: Start: 07-95-5404FQ of head without contrastMD Mica Hook Work Phone: Start: 88-47-8476Nnxpg X-ray of right hipMD Mica Hook Work Phone: Start: 58-64-7993F-ray of right kneeMD Mica Hook Work Phone: Start: 50-41-3261Ntlle cultureMD Mica Hook Work Phone: Start: 88-01-6059Odemh X-ray of left elbowMD Mica Hook Work Phone: Start: 56-31-5911Xauld X-ray of left handMD Mica Hook Work Phone: Start: 90-25-8067Xofwm X-ray of left elbowMD Mica Hook Work Phone: Start: 10-80-9994Xtwgq X-ray of left handMD Mica Hook Work Phone: Start: 61-39-7673QUUMDTNBSMK OF HUMAN RESOURCES 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, 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 APPROACHIMRAN ALIBiopsy of breastDavid Hayward MD Work Phone: Destructive procedureDavid Hayward MD Work Phone: H/O: surgeryHistory of thyroid surgeryMD Mica Hook Work Phone: History of cataract extractionHx of cataract surgeryMD Mica Hook Work Phone: Comment on above:08-10-2024 right eye, left eye 64-88-6900[place]ct[place] of percutaneous transluminal coronary angioplastyHistory of PTCCarmen Hayward MD Work Phone: History of percutaneous transluminal coronary angioplastyHistory of PTCCarmen Hayward MD Work Phone: History of percutaneous transluminal coronary angioplastyHistory of PTCCarmen Mcdermott DO Work Phone: Operation on thyroid glandDavid Hayward MD Work Phone: Operative procedure on ankleWibadlev Hayward MD Work Phone: Surgical procedure on thoraxDavid Hayward MD Work Phone: Total colonoscopyWibaldev Hayward MD Work Phone: Plan of Treatment DateCare ActivityDetailAuthorStart: 12-68-6720WSyB/Tdap/Td Vaccines (2 - Td or Tdap)DTaP/Tdap/Td Vaccines (2 - Td or Tdap)[facility] Start: 62-72-4972QMaQ/Tdap/Td Vaccines (3 - Td or Tdap)DTaP/Tdap/Td Vaccines (3 - Td or Tdap)[facility]: 47-04-7000Hkiyrzcseqlufrxw EchocardiogramCincinnati [facility]'s Hospital [facility]: 12-05-2025 End: 77-40-4049Raronxh encounter oryavgywb49/28/2026 11:00 AM EST Office Visit [place] [id number] [facility] Mg [address] [place] [address] David Mcdermott DO [address] [facility] 2, Mg [address] [place] [address] [facility]: 50-11-2893Fccfihkj screening Diabetes: Retinopathy ScreeningCincinnati Children's Hospital [facility]: 60-27-2707Ogfmhegjs vaccinationInfluenza Vaccine (#1)[facility]: 63-44-1926OhychlzkqabpcurfQcudvbutiteznnZstnnmtmwd [facility]Start: 06-06-2025 End: 15-05-5112Tgqtgng encounter /30/2025 11:00 AM EDT Office Visit [address] [place] [address] José Antonio Hills, STRIPPER SHOVEL OPERATOR-RESIDENTIAL INSTRUCTOR [facility] [facility] [address] [place] [address] [facility]: 05-[facility]2025 End: 10-89-7816Neojg metabolic 2000 panel - Serum or PlasmaBasic Metabolic Panel Lab Routine Edema, unspecified type Coronary artery disease involving tonawanda h eart, unspecified vessel or lesion type, unspecified whether angina present Expected: 05/09/2025 (Approximate), Expires: 05/09/2026[facility] Service Area Work Phone: Comment on above:Expected: 05/09/2025 (Approximate), Expires: 05/09/2026Start: 05-09-2025 End: 72-13-0228Idrrkdumeft peptide B [Mass/volume] in BloodB-Type Natriuretic Peptide Lab Routine Edema, unspecified type Coronary artery disease involving tonawanda heart, unspecified vessel or lesion type, unspecified whether angina present Dyspnea on exertion Expected: 05/09/2025 (Approximate), Expires: 05/09/2026[facility] Work Phone: Comment on above:Expected: 05/09/2025 (Approximate), Expires: 05/09/2026Start: 05-09-2025 End: 39-37-1020Bziyqpxr US PVR Without ExerciseVascular US PVR Without Exercise Vascular Ultrasound Routine Edema, unspecified type Type 2 diabetes mellitus with other circulatory complications Expected: 05/09/2025 (Approximate), Expires: 05/09/2027[facility] Work Phone: Comment on above:Expected: 05/09/2025 (Approximate), Expires: 05/09/2027Start: 05-09-2025 End: 14-49-7544Zhliace encounter rjyqeirdd01/02/2025 11:30 AM EDT Office Visit [address] [place] [address] José Antonio Hills, STRIPPER SHOVEL OPERATOR-RESIDENTIAL INSTRUCTOR [address] [facility] 2, Mg [address] [place] [address] [facility]: 05-02-2025 End: 56-18-5172Nebnhta encounter wsqslvens58/25/2025 1:30 PM EDT Appointment [place] [address] [facility] [address] [place] [address] [facility]: 03-12-2025 End: 67-10-3325Zcjoa metabolic 2000 panel - Serum or PlasmaBasic Metabolic Panel Lab Routine Cardiomyopathy, ischemic Edema, unspecified type Expected: 025, Expires: 02/26/2026[facility] Work Phone: Comment on above:Expected: 03/12/2025, Expires: 02/26/2026Start: 03-12-2025 End: 50-51-3455Ezevrtpqunl peptide B [Mass/volume] in BloodB-Type Natriuretic Peptide Lab Routine Cardiomyopathy, ischemic Edema, unspecified type Other cardiomyopathy Expected: 03/12/2025, Expires: 02/26/2026[facility] Work Phone: Comment on above:Expected: 03/12/2025, Expires: 02/26/2026Start: 02-26-2025 End: 49-45-0824OP Heart TransthoracicTransthoracic Echo Complete Echocardiography Routine Cardiomyopathy, ischemic Edema, unspecified type Expected: 02/26/2025 (Approximate), Expires: 02/26/2027[facility] Service Area Work Phone: Comment on above:Expected: 02/26/2025 (Approximate), Expires: 02/26/2027Start: 02-26-2025 End: 03-47-2288Ghaltgh encounter /21/2025 1:30 PM EDT Office Visit [address] [place] [address] José Antonio Hills, STRIPPER SHOVEL OPERATOR-RESIDENTIAL INSTRUCTOR [address], Mg [address] [place] [address] [facility]: 01-24-2025 End: 63-13-4185Mowlgcl encounter efygxfdwo82/19/2025 11:30 AM EDT Office Visit [address] [place] [address] David Mcdermott DO [address] [facility] 2, [facility] [address] [place] [address] [facility]: 01-22-2025 End: 72-71-9676Qosjburg US Lower Extremity Venous Duplex LeftVascular US Lower Extremity Venous Duplex Left Vascular Ultrasound Routine Edema, unspecified type Localized swelling, mass and lump, left lower limb Expected: 01/22/2025 (Approximate), Expires: 01/22/2027[facility] Service Area Work Phone: Comment on above:Expected: 01/22/2025 (Approximate), Expires: 01/22/2027Start: 98-25-4077Elbwno scan of lower limb veinsUS venous duplex LE [facility]: 98-13-4334QI Lower [facility] 01-22-2025 End: 05-35-3197Lqelbbz encounter muwiphpty17/17/2025 11:30 AM EDT Office Visit [address] [address] José Antonio Hills, STRIPPER SHOVEL OPERATOR-RESIDENTIAL INSTRUCTOR [address] [facility] 2, [facility] [address] [place] [address] [facility]: 12-20-2024 End: 19-50-1046Fhice metabolic 2000 panel - Serum or PlasmaBasic Metabolic Panel Lab Routine Coronary artery disease involving tonawanda heart, unspecified vessel or lesion type, unspecified whether angina present Cardiomyopathy, ischemic Expected: 12/20/2024 (Approximate), Expires: 12/20/2025[facility] Work Phone: Comment on above:Expected: 12/20/2024 (Approximate), Expires: 12/20/2025Start: 12-20-2024 End: 69-75-7664Cuxba 1996 panel - Serum or PlasmaLipid Panel Lab Routine Coronary artery disease involving tonawanda heart, unspecified vessel or lesion type, unspecified whether angina present Hyperlipidemia, unspecified hyperlipidemia type Expected:12/20/2024 (Approximate), Expires: 12/20/2025[facility] Service Area Work Phone: Comment on above:Expected: 12/20/2024 (Approximate), Expires: 12/20/2025Start: 12-20-2024 End: 61-64-9427Jckfasionzr peptide B [Mass/volume] in BloodB-Type Natriuretic Peptide Lab Routine Cardiomyopathy, ischemic Dyspnea on exertion Expected: 12/20/2024 (Approximate), Expires: 12/20/2025[facility] Work Phone: Comment on above:Expected: 12/20/2024 (Approximate), Expires: 12/20/2025Start: 11-29-2024 End: 55-10-5142Bgxusjl encounter jufcdsekw69/22/2025 11:00 AM EST Office Visit [facility] [address] [address] José Antonio Hills, STRIPPER SHOVEL OPERATOR-RESIDENTIAL INSTRUCTOR [address] [facility] 2, Mg [address] [place] [address] [facility]: 10-09-2024 End: 14-84-5568Pqzalgf encounter procedure [facility]: 10-05-2024 End: 09-92-4214ME Heart Wall motion and Ejection fractionNM heart blood pool ejection fraction wall motion (MUGA) Imaging Routine Coronary artery disease inv olving tonawanda heart, unspecified vessel or lesion type, unspecified whether angina present Cardiomyopathy, ischemic Expected: 10/05/2024, Expires: 07/13/2025[facility] Service Area Work Phone: Comment on above:Expected: 10/05/2024, Expires: 07/13/2025Start: 07-13-2024 End: 93-61-0078Spvjr metabolic 2000 panel - Serum or PlasmaBasic Metabolic Panel Lab Routine Coronary artery disease involving tonawanda heart, unspecified vessel or lesion type, unspecified whether angina present Expected: 07/13/2024 (Approximate), Expires: 07/13/2025[facility] Work Phone: Comment on above:Expected: 07/13/2024 (Approximate), Expires: 07/13/2025Start: 61-92-5981Xxxzqfiq screeningDiabetes: Retinopathy ScreeningUnOhioHealth Arthur G.H. Bing, MD, Cancer CenterStart: 07-13-2024 End: 70-54-5600Xhrzknkfbdw peptide B [Mass/volume] in BloodB-Type Natriuretic Peptide Lab Routine Coronary artery disease involving tonawanda heart, unspecified vessel or lesion type, unspecified whether angina present Edema, unspecified type ACC/AHA stage C congestive heart failure due to ischemic cardiomyopathy (Multi) Expected: 07/13/2024 (Approximate), Expires: 07/13/2025UnOhioHealth Arthur G.H. [facility], [facility], Cancer Center Work Phone: Comment on above:Expected: 07/13/2024 (Approximate), Expires: 07/13/2025Start: 63-32-5070BTVYR-19 Vaccine ( season)COVID- 19 Vaccine ( season)[facility]: 39-52-3662EOCVO-19 Vaccine ( season)COVID-19 Vaccine ( season)[facility]: 32-62-1775Tqxwbstgh vaccination Influenza Vaccine (#1)[facility]: 06-30-[address] [facility]: 21-68-3433Yhekmkom of Coronary Artery, Two Arteries with Four or More Drug-eluting Intraluminal Devices, Percutaneous ApproachDilation of Coronary Artery, Two Arteries with Four or More Drug-eluting Intraluminal Devices, Percutaneous ApproachMetrohealth Cleveland Heights Medical Center Start: 00-93-2694Nzbojdigapy of Left Heart using Low Osmolar ContrastFluoroscopy of Left Heart using Low Osmolar ContrastSt. Rita's Hospitaltart: 80-86-3001Ybrmcesuxrd of Multiple Coronary Arteries using Low Osmolar Contrast Fluoroscopy of Multiple Coronary Arteries using Low Osmolar ContrastSt. Rita's Hospitaltart: 90-02-5278Jlxwulkrtbf of Cardiac Sampling and Pressure, Left Heart, Percutaneous ApproachMeasurement of Cardiac Sampling and Pressure, Left Heart, Percutaneous ApproachMetrohealth [facility] Heights Medical Center Start: 15-79-7324KwmamionunooGltvrluxaSt. Rita's Hospitaltart: 06-29-2024 Hospital admissionSt. Rita's Hospitaltart: 59-61-4908Ekqbrffh to cardiac rehabilitation programSt. Rita's Hospitaltart: 06-29-2024 [facility]: 92-91-7578CYP, Provider: David Hayward, Status: Pen, Time: 1:00 PMFUV, Provider: David Hayward, Status: Pen, Time: 1:00 PMMP-Formerly [facility]-[place] [address] DO Work Phone: Start: 54-76-6282Crsgxfk referralMemorial Health [facility] Work Phone: Start: 97-52-2202SbufmtqhfMetrohealth Cleveland Heights Medical Center Start: 66-77-0893Rjnordemltzwjd of prophylactic treatmentSt. Rita's Hospitaltart: 50-90-8641Zpgpbpgd admissionSt. Rita's Hospitaltart: 59-19-4866Rjjdycqs to clinical allergistSt. Rita's Hospitaltart: 89-78-0293QmdzjhlteSt. Rita's Hospitaltart: 10-13-2023 Referral to rehabilitation physicianSt. Rita's Hospitaltart: 95-03-2907Aqjpp cultureUrine CultureSt. Rita's Hospitaltart: 03-93-7109Fbqzclyg to oncologistSt. Rita's Hospitaltart: 97-98-5304Lcbwq chemistrySt. Rita's Hospitaltart: 10-12-2023 [facility]: 11-92-3792Sgvaqax referral to dietitian [facility]: 72-32-6739Skteptsv admissionSt. Rita's Hospitaltart: 10-11-2023 End: 39-85-6648DzwwnnillxedSvglvodnfSt. Rita's Hospitaltart: 10-11-2023 Physical therapy procedureSt. Rita's Hospitaltart: 10-11-2023 Referral to occupational therapistSt. Rita's Hospitaltart: 81-44-7227IdsgifjgqSt. Rita's Hospitaltart: 41-91-8138Nwfvzconszb of Right Hip Joint, Femoral Surface with Metal Synthetic Substitute, Open Approach Replacement of Right Hip Joint, Femoral Surface with Metal Synthetic Substitute, Open ApproachSt. Rita's Hospitaltart: 44-87-1253Innofmcf identified in Urine by CultureSt. Rita's Hospitaltart: 07-09-2023 COVID-19 Vaccine ()COVID-19 Vaccine () [facility]: 20-92-1063Nvforgelh vaccinationInfluenza Vaccine (#1)[facility]: 07-68-2557Ikzhekjm screeningDiabetes: Retinopathy ScreeningUnCleveland Clinic Lutheran Hospital: 07-47-7477LZZ, Provider: David Hayward, Status: Pen, Time: 1:10 PMFUV, Provider: David Hayward, Status: Pen, Time: 1:10 PMMPState [facility] [place] [address] DO Work Phone: Start: 08-10-2022Medicare Annual Wellness Visit Medicare Annual Wellness Visit (AWV)[facility]: 98-44-6337TLN, Provider: David Hayward, Status: Pen, Time: 11:15 AMFUV, Provider: David Hayward, Status: Pen, Time: 11:15 AMMPMurray [facility] 250 DO Work Phone: Start: 58-90-4070Hyxmregtcdwn Vaccine: 65+ Years (2 of 2 - PPSV23 or PCV20)Pneumococcal Vaccine: 65+ Years (2 of 2 - PPSV23 or PCV20) [facility] HealthcareStart: 74-17-2286Kwvfpbofjcdz Vaccine: 65+ Years (2 of 2 - PPSV23)Pneumococcal Vaccine: 65+ Years (2 of 2 - PPSV23)[facility] HealthcareStart: 06-28-7433Twysuqxieyjf Vaccine: 65+ Years (2 - PPSV23 or PCV20)Pneumococcal Vaccine: 65+ Years (2 - PPSV23 or PCV20)[facility]: 54-70-2475Myjvub Vaccines (2 of 3)Zoster Vaccines (2 of 3)[facility]: 98-64-5649MXE High Risk: (Elderly (60+) or Population) (1 - 1-dose 75+ series)RSV High Risk: (Elderly (60+) or Population) (1 - 1-dose 75+ series)[facility]: 97-20-3832Gvhoiimuj for osteoporosisBone Density ScanCincinnati Children's Hospital [facility] Center: 51-69-7951HKV patients and/or patients aged 60+ years (1 - 1-dose 60+ series)RSV patients and/or patients aged 60+ years (1 - 1-dose 60+ series)[facility]: 65-04-1857Jrjtf screening for proteinDiabetes: Urine Protein ScreeningC[facility]'s [facility]: 86-94-0714Jpvxxdbq foot examinationDiabetes: Foot ExamUnCleveland Clinic Lutheran Hospital: 67-38-5521Dvzlnj wellness visitWelcome to Medicare VisitUnCleveland Clinic Lutheran Hospital: 86-98-5994Wufmfofmbb measurement Creatinine [facility]: 12-13-4892Pcvawbbxpa A1c measurementDiabetes: Hemoglobin R1VJxumbkgaohCincinnati Children's Hospital [facility] Center: 16-99-3699Awues panelLipid PanelCinc[facility]'s Hospital [facility]: 1939Medicare Annual Wellness VisitMedicare Annual Wellness Visit (AWV) [facility]: 57-98-5044Xrppjtddm measurementPotMercy Health Anderson Hospital: 89-98-2682Zoeebkhhv for osteoporosisBone Density ScanCinc[facility]: 1939 Thyroid stimulating hormone measurementTSMercy Health St. [facility]: 89-73-1508Vlfyh screening for proteinDiabetes: Urine Protein ScreeningProMedica Fostoria Community HospitalCT Chest WO contrastMetrohealth Cleveland Heights Medical CenterCT Chest WO contrastMetrohealth Cleveland Heights Medical CenterCT guided biopsyMetrohealth Cleveland Heights Medical CenterCT Unspecified body regionMetrohealth Cleveland Heights Medical CenterMG Breast - right ScreeningMetrohealth Cleveland Heights Medical CenterPatient EducationCleveland Clinic Lutheran Hospital Ctr Work Phone: Patient referralCleveland Clinic Lutheran Hospital Ctr Work Phone: End: 58-86-9522DF [facility] Service Area Work Phone: Comment on above:Once for 1 Occurrences starting 05/02/2025 until 05/02/2025[facility] Immunizations Immunization DateImmunizationNotesCare YxixbrpiSqhwgkzf66-96-7791pdogfuchp, high dose seasonal, preservative-freeMD Mica Hook Work Phone: [facility]10-28-2024influenza virus vaccine, unspecified formulationJosé Antonio Hills STRIPPER SHOVEL OPERATOR-RESIDENTIAL INSTRUCTOR Work Phone: [facility] Work Phone: [phone]y, tetanus toxoids and pertussis vaccineMica E Hook Work Phone: [phone]-GhiwfSt. [facility] 250 DO Work Phone: [phone] toxoid, reduced diphtheria toxoid, and acellular pertussis vaccine, Adenike Hayward MD Work Phone: [facility] Work Phone: [phone]b COVID-19 Vaccine 100 MCG/0.5ML Intramuscular SuspensionCoralcia E Hook Work Phone: [phone]-MpwxtSt. [facility] 250 DO Work Phone: [phone] COVID-19 Vaccine 100 MCG/0.5ML Intramuscular SuspensionMarcia E Hook Work Phone: [phone]-BtmjeSt. [facility] 250 DO Work Phone: [phone] virus vaccine, split virus (incl. purified surface antigen)Mica Hook Other [place] [employer] Other [id number] virus vaccine, unspecified formulation Mica Hook Work Phone: [facility]11-01-2021influenza, seasonal, injectableMarcia Ernie Hook Work Phone: [phone]-CqamkSt. [facility] 250 DO Work Phone: Comment on above:Series:62-76-5113jhiuxuccm virus vaccine, unspecified formulationDavid Hayward MD Work Phone: [facility] Work Phone: [phone] COVID-19 Vaccine 100 MCG/0.5ML Intramuscular SuspensionDavid Hayward MD Work Phone: [facility]02-12-2021Moderna COVID-19 Vaccine 100 MCG/0.5ML Intramuscular SuspensionDavid Hayward MD Work Phone: [facility]10-14-2020influenza virus vaccine, split virus (incl. purified surface antigen)Mica Hook Other [place] [employer] Other [id number] virus vaccine, unspecified formulationMD Mica Hook Work Phone: [facility]10-01-2020influenza virus vaccine, unspecified formulationDavid Hayward MD Work Phone: mpSt. Cloud Va Health Care [facility] 250 DO Work Phone: [phone] virus vaccine, split virus (incl. purified surface antigen)Mica Hook Other [place] [employer] Other [id number] virus vaccine, unspecified formulationMD Mcia Hook Work Phone: [facility]10-11-2018Seasonal trivalent influenza vaccine, adjuvanted, preservative freeMica Hook Work Phone: [phone]-Qwmly [place] [facility] [address] DO Work Phone: [phone]am conjugate vaccine, 13 valent David Hayward MD Work Phone: [facility]08-18-2017influenza, high dose seasonal, preservative-freeMica Hook Work Phone: [facility]08-18-2017zoster vaccine, liveMarcia E Hook Work Phone: [facility]10-10-2014tetanus and diphtheria toxoids, adsorbed, preservative free, for adult use (5 Lf of tetanus toxoid and 2 Lf of diphtheria toxoid)Mica Hook Other [facility]10-17-2013tetanus and diphtheria toxoids, adsorbed, preservative free, for adult use (5 Lf of tetanus toxoid and 2 Lf of diphtheria toxoid)Mica Hook Other [facility]11-09-2005 pneumococcal polysaccharide vaccine, 23 valentMica Hook Other [facility] Payers DatePayer CategoryPayerPolicy [id number] 2024Medicare (Managed Care) [id number] MedicareD9UHFH [id number] Health InsuranceAARP [id number] 2004MedicareMEDICARE [id number] [id number] [id number] 2..1.283012.3.579.[id number] 2..1.292507.3.57[id number] 2..1.762299.3.579.2.06798-32-5202Ftxflnk0131502 2..1.077959.3.579.2.12204-56-0260Tlnhpcx0672438 2..1.422425.3.57[id number] 2..1.237343.3.57[id number] 2.0.1.170871.3.57[id number] 2.0.1.921161.3.579.2.33199-11-5858Wgzzsiu3331364 2.16840.1.099539.3.57[id number] 2.16840.1.754550.3.579.[id number] 2.160.1.080484.3.579.2.578416-85-0694Ccxpytj04270749 2.160.1.645198.3.57[id number] 2.0.1.595807.3.579.2.[id number] 2.0.1.263043.3.579.[id number] 2.0.1.429456.3.579.2.96[id number] 2.0.1.226360.3.57[id number] 2.0.1.051568.3.579.[id number] 2.0.1.958554.3.57[id number] 2.0.1.991450.3.579.2.5[id number] 2.0.1.300983.3.579.2.1244UnknownAPeaceHealth Peace [facility] [id number] [id number]-0r0c-zv4t-[id number] 2.840.1.0[id number] 2.16.840.1.249849.3.579.2.531 [id number] 2.16.840.1.425814.3.579.2.341Uecxxzb80542532 2.16.840.1.701280.3.579.2.784Jlnbcvj34393471 2.16.840.1.180419.3.579.2.531 Social History DateTypeDetailFacilityStart: 01-26-2024 End: 69-02-6337Ytmidwb useAlcohol use-Formerly [facility] 250 DO Work Phone: Start: 01-26-2024 End: 18-98-7104Pwq Assigned At [facility] [employer] Other Start: 05-15-2019 End: 26-12-6861Pqrlutc smoking status NHISNever smoked tobacco (finding) [facility]: 09-20-3300Mwz Assigned At [facility] Campustart: 26-45-6755Fqxssdf use and exposure Smokeless tobacco non-userProMedica Fostoria Community Hospital Work Phone: Start: 01-26-2024 End: 17-24-4260Uznypxn intakeCurrent drinker of alcohol (finding)[facility] [facility] Work Phone: Start: 02-02-0566Nafpylu CommentmonthlyUnOhioHealth [facility] Work Phone: Start: 57-00-8348Mdf Assigned At BirthNot on file [facility] Work Phone: Start: 01-16-2024 End: 73-15-4584Ojnyyygp to SARS-CoV-2 (event)Not sureProMedica Fostoria Community HospitalStart: 12-06-2024 End: 05-36-0481OjeStahrj (finding)[facility]tart: 87-61-5516VupOewzfpTjnhrcfrefAdena Health System Medical Equipment Procedure CodeEquipment CodeEquipment Original TextEquipment IdentifierDates Arthroplasty, hip, bipolarMetallic femoral head prosthesis ()[id number] FDAStart: 77-71-9616Irlpwywgsodm, hip, bipolarCoated hip femur prosthesis, modular ()[id number] FDAStart: 88-21-1563Gvsqy: 11-18-2023 Blood Sugar Diagnostic (Onetouch Ultra Test) stripStart: 85-05-3640Twhaafj (Onetouch Delica Plus Lancet) 30 gauge miscStart: 96-08-7046Mrhoj Sugar Diagnostic (Onetouch Ultra Test) stripStart: 14-74-8966Xpwlbyz (Onetouch Delica Plus Lancet) 30 gauge miscStart: 35-15-9644Pfnzg Sugar Diagnostic (Onetouch Ultra Test) stripStart: 95-16-6419Peucjqg (Onetouch Delica Plus Lancet) 30 gauge miscStart: 46-03-4894Mygqe Sugar Diagnostic (Onetouch Ultra Test) stripStart: 83-77-8679Xnidenq (Onetouch Delica Plus Lancet) 30 gauge miscStart: 01-04-2024 Blood Sugar Diagnostic (Onetouch Ultra Test) stripStart: 94-83-9902Qivveza (Onetouch Delica Plus Lancet) 30 gauge miscStart: 34-88-6367Ikpqm Sugar Diagnostic (Onetouch Ultra Test) stripStart: 82-89-4145Cgomtat (Onetouch Delica Plus Lancet) 30 gauge miscStart: 30-49-9749FR STENT MOSES FRONTIER 2.5 X 08FDA Start: 86-78-3677ET STENT MOSES FRONTIER 2.5 X 12FDAStart: 58-56-6395ZH STENT MOSES FRONTIER 2.5 X 15FDAStart: 46-25-2819JX STENT MOSES FRONTIER 3.0 X 15FDA Start: 45-60-1111Uwgpxvr artery closure plug/patch, synthetic polymer ()[id number] FDAStart: 76-68-8117Fvhgp Sugar Diagnostic (Onetouch Ultra Test) stripStart: 79-39-0828Pqyurcf (Onetouch Delica Plus Lancet) 30 gauge misc Start: 33-11-2083YV STENT MOSES FRONTIER 2.5 X 08FDAStart: 12-92-6573JZ STENT MOSES FRONTIER 2.5 X 12FDAStart: 68-92-3141OM STENT MOSES FRONTIER 2.5 X 15FDA Start: 35-30-6095ZR STENT MOSES FRONTIER 3.0 X 15FDAStart: 99-78-1910Wdwhq Sugar Diagnostic (Onetouch Ultra Test) stripStart: 42-99-0761Mvuwkpy (Onetouch Delica Plus Lancet) 30 gauge miscStart: 21-39-4224ZO STENT MOSES FRONTIER 2.5 X 08FDA Start: 33-05-4479LS STENT MOSES FRONTIER 2.5 X 12FDAStart: 56-97-3864JH STENT MOSES FRONTIER 2.5 X 15FDAStart: 29-00-3054DW STENT MOSES FRONTIER 3.0 X 15FDA Start: 22-37-3720Ivrov Sugar Diagnostic (Onetouch Ultra Test) stripStart: 37-67-7885Lscfwrb (Onetouch Delica Plus Lancet) 30 gauge miscStart: 19-61-9000UR STENT MOSES FRONTIER 2.5 X 08FDAStart: 07-58-4949DG STENT MOSES FRONTIER 2.5 X 12 FDAStart: 67-70-2479UC STENT MOSES FRONTIER 2.5 X 15FDAStart: 39-40-2528DB STENT MOSES FRONTIER 3.0 X 15FDAStart: 68-87-8338Pvqvw Sugar Diagnostic (Onetouch Ultra Test) stripStart: 93-98-4928Byjxcyl (Onetouch Delica Plus Lancet) 30 gauge misc Start: 44-88-0520AG STENT MOSES FRONTIER 2.5 X 08FDAStart: 14-36-9070HG STENT MOSES FRONTIER 2.5 X 12FDAStart: 37-43-7021LP STENT MOSES FRONTIER 2.5 X 15FDA Start: 53-06-6367TR STENT MOSES FRONTIER 3.0 X 15FDAStart: 81-58-3195Qenbu Sugar Diagnostic (Onetouch Ultra Test) stripStart: 60-52-8192Tlvbnem (Onetouch Delica Plus Lancet) 30 gauge miscStart: 48-82-1070ZA STENT MOSES FRONTIER 2.5 X 08FDA Start: 17-17-7764KW STENT MOSES FRONTIER 2.5 X 12FDAStart: 48-47-2420VK STENT MOSES FRONTIER 2.5 X 15FDAStart: 42-72-6614DJ STENT MOSES FRONTIER 3.0 X 15FDA Start: 12-43-6107Fdloc Sugar Diagnostic (Onetouch Ultra Test) stripStart: 63-10-4932Jjfkymy (Onetouch Delica Plus Lancet) 30 gauge miscStart: 44-79-3688XW STENT MOSES FRONTIER 2.5 X 08FDAStart: 98-70-7736EX STENT MOSES FRONTIER 2.5 X 12 FDAStart: 11-65-7756XT STENT MOSES FRONTIER 2.5 X 15FDAStart: 35-06-0773NX STENT MOSES FRONTIER 3.0 X 15FDAStart: 24-69-0685Jnsel Sugar Diagnostic (Onetouch Ultra Test) stripStart: 76-73-2727Vhoelql (Onetouch Delica Plus Lancet) 30 gauge misc Start: 45-67-2579Sze Needle, Diabetic (Bd Ilene 2nd Gen Pen Needle) 32 gauge x 5/32 needleStart: 92-70-6372Xlb Needle, Diabetic (Bd Ilene 2nd Gen Pen Needle) 32 gauge x 5/32 needleStart: 01-16-2025 End: 47-14-2349Pzs Needle, Diabetic (Bd Ilene 2nd Gen Pen Needle) 32 gauge x 5/32 needleStart: 01-16-2025 End: 58-47-6724PU STENT MOSES FRONTIER 2.5 X 08FDAStart: 74-04-0284SE STENT MOSES FRONTIER 2.5 X 12FDAStart: 72-97-0063AT STENT MOSES FRONTIER 2.5 X 15FDAStart: 98-20-1770DR STENT MOSES FRONTIER 3.0 X 15FDAStart: 81-65-4951Bqwgw Sugar Diagnostic (Onetouch Ultra Test) stripStart: 90-35-9211Tizrtqj (Onetouch Delica Plus Lancet) 30 gauge miscStart: 94-84-4082Qiv Needle, Diabetic (Bd Ilene 2nd Gen Pen Needle) 32 gauge x 5/32 needleStart: 73-82-7121Mcc Needle, Diabetic (Bd Ilene 2nd Gen Pen Needle) 32 gauge x 5/32 needleStart: 01-16-2025 End: 73-20-2103Mru Needle, Diabetic (Bd Ilene 2nd Gen Pen Needle) 32 gauge x 5/32 needleStart: 01-16-2025 End: 37-16-4220DJ STENT MOSES FRONTIER 2.5 X 08FDAStart: 57-33-6962WM STENT MOSES FRONTIER 2.5 X 12FDAStart: 56-31-8384VZ STENT MOSES FRONTIER 2.5 X 15FDAStart: 18-37-6011LE STENT MOSES FRONTIER 3.0 X 15FDAStart: 43-38-9261Urnea Sugar Diagnostic (Onetouch Ultra Test) stripStart: 67-69-9210Utmexbn (Onetouch Delica Plus Lancet) 30 gauge miscStart: 73-88-5341Vbz Needle, Diabetic (Bd Ilene 2nd Gen Pen Needle) 32 gauge x 5/32 needleStart: 75-11-9329Ioj Needle, Diabetic (Bd Ilene 2nd Gen Pen Needle) 32 gauge x 5/32 needleStart: 01-16-2025 End: 15-80-6366Trz Needle, Diabetic (Bd Ilene 2nd Gen Pen Needle) 32 gauge x 5/32 needleStart: 01-16-2025 End: 94-22-4404KR STENT MOSES FRONTIER 2.5 X 08FDAStart: 06-77-2161RV STENT MOSES FRONTIER 2.5 X 12FDAStart: 87-65-0214BG STENT MOSES FRONTIER 2.5 X 15FDAStart: 24-15-4357UT STENT MOSES FRONTIER 3.0 X 15FDAStart: 95-43-6445Kggxc Sugar Diagnostic (Onetouch Ultra Test) stripStart: 58-46-5618Lcyrlvc (Onetouch Delica Plus Lancet) 30 gauge miscStart: 41-84-1675Cjc Needle, Diabetic (Bd Ilene 2nd Gen Pen Needle) 32 gauge x 5/32 needleStart: 76-90-6750Ljj Needle, Diabetic (Bd Ilene 2nd Gen Pen Needle) 32 gauge x 5/32 needleStart: 01-16-2025 End: 62-73-9360Hoh Needle, Diabetic (Bd Ilene 2nd Gen Pen Needle) 32 gauge x 5/32 needleStart: 01-16-2025 End: 86-17-6768UP STENT MOSES FRONTIER 2.5 X 08FDAStart: 22-20-4090ZY STENT MOSES FRONTIER 2.5 X 12FDAStart: 44-23-1791OP STENT MOSES FRONTIER 2.5 X 15FDAStart: 08-64-2566TC STENT MOSES FRONTIER 3.0 X 15FDAStart: 01-22-8832Lyzxk Sugar Diagnostic (Onetouch Ultra Test) stripStart: 94-99-6089Kimuzup (Onetouch Delica Plus Lancet) 30 gauge miscStart: 51-27-4395Hau Needle, Diabetic (Bd Ilene 2nd Gen Pen Needle) 32 gauge x 5/32 needleStart: 11-94-8682Gzq Needle, Diabetic (Bd Ilene 2nd Gen Pen Needle) 32 gauge x 5/32 needleStart: 01-16-2025 End: 63-02-3413Ijm Needle, Diabetic (Bd Ilene 2nd Gen Pen Needle) 32 gauge x 5/32 needleStart: 01-16-2025 End: 59-15-5580DH STENT MOSES FRONTIER 2.5 X 08FDAStart: 40-99-3025YA STENT MOSES FRONTIER 2.5 X 12FDAStart: 43-70-5658CB STENT MOSES FRONTIER 2.5 X 15FDAStart: 68-75-7696IV STENT MOSES FRONTIER 3.0 X 15FDAStart: 24-10-5280Pbrml Sugar Diagnostic (Onetouch Ultra Test) stripStart: 25-98-1561Fusxvjz (Onetouch Delica Plus Lancet) 30 gauge miscStart: 78-18-8923Qbd Needle, Diabetic (Bd Ilene 2nd Gen Pen Needle) 32 gauge x 5/32 needleStart: 13-05-2467Frh Needle, Diabetic (Bd Ilene 2nd Gen Pen Needle) 32 gauge x 5/32 needleStart: 01-16-2025 End: 86-54-4525Bwb Needle, Diabetic (Bd Ilene 2nd Gen Pen Needle) 32 gauge x 5/32 needleStart: 01-16-2025 End: 76-96-5437MR STENT MOSES FRONTIER 2.5 X 08FDAStart: 25-72-9399JN STENT MOSES FRONTIER 2.5 X 12FDAStart: 63-87-3078YH STENT MOSES FRONTIER 2.5 X 15FDAStart: 22-03-0162YP STENT MOSES FRONTIER 3.0 X 15FDAStart: 05-60-8118Ibrss Sugar Diagnostic (Onetouch Ultra Test) stripStart: 99-72-8689Qxtkhjw (Onetouch Delica Plus Lancet) 30 gauge miscStart: 62-93-3575Xtx Needle, Diabetic (Bd Ilene 2nd Gen Pen Needle) 32 gauge x 5/32 needleStart: 51-46-7008Blv Needle, Diabetic (Bd Ilene 2nd Gen Pen Needle) 32 gauge x 5/32 needleStart: 01-16-2025 End: 81-24-0952Hzj Needle, Diabetic (Bd Ilene 2nd Gen Pen Needle) 32 gauge x 5/32 needleStart: 01-16-2025 End: 13-15-7931ZE STENT MOSES FRONTIER 2.5 X 08FDAStart: 00-10-7305LS STENT MOSES FRONTIER 2.5 X 12FDAStart: 80-01-7641FG STENT MOSES FRONTIER 2.5 X 15FDAStart: 98-70-8117ZC STENT MOSSE FRONTIER 3.0 X 15FDAStart: 94-79-5574Jovmh Sugar Diagnostic (Onetouch Ultra Test) stripStart: 88-32-4057Ohvjgcu (Onetouch Delica Plus Lancet) 30 gauge miscStart: 01-50-2118Kmk Needle, Diabetic (Bd Ilene 2nd Gen Pen Needle) 32 gauge x 5/32 needleStart: 78-41-4712Ubp Needle, Diabetic (Bd Ilene 2nd Gen Pen Needle) 32 gauge x 5/32 needleStart: 01-16-2025 End: 83-80-8719Rqd Needle, Diabetic (Bd Ilene 2nd Gen Pen Needle) 32 gauge x 5/32 needleStart: 01-16-2025 End: 18-45-2062WT STENT MOSES FRONTIER 2.5 X 08FDAStart: 61-91-0396GC STENT MOSES FRONTIER 2.5 X 12FDAStart: 29-76-2891HA STENT MOSES FRONTIER 2.5 X 15FDAStart: 60-80-7759US STENT MOSES FRONTIER 3.0 X 15FDAStart: 75-68-7411Pznme Sugar Diagnostic (Onetouch Ultra Test) stripStart: 00-77-3552Figinym (Onetouch Delica Plus Lancet) 30 gauge miscStart: 94-01-9054Jow Needle, Diabetic (Bd Ilene 2nd Gen Pen Needle) 32 gauge x 5/32 needleStart: 87-38-8082Wht Needle, Diabetic (Bd Ilene 2nd Gen Pen Needle) 32 gauge x 5/32 needleStart: 01-16-2025 End: 58-55-9747Gqp Needle, Diabetic (Bd Ilene 2nd Gen Pen Needle) 32 gauge x 5/32 needleStart: 01-16-2025 End: 47-93-2272MX STENT MOSES FRONTIER 2.5 X 08FDAStart: 97-09-0379UX STENT MOSES FRONTIER 2.5 X 12FDAStart: 41-56-5242UV STENT MOSES FRONTIER 2.5 X 15FDAStart: 34-78-4120PP STENT MOSES FRONTIER 3.0 X 15FDAStart: 86-47-8979Tspkp Sugar Diagnostic (Onetouch Ultra Test) stripStart: 65-64-1621Vumpksr (Onetouch Delica Plus Lancet) 30 gauge miscStart: 59-19-1143Xhm Needle, Diabetic (Bd Ilene 2nd Gen Pen Needle) 32 gauge x 5/32 needleStart: 64-73-1488Dfp Needle, Diabetic (Bd Ilene 2nd Gen Pen Needle) 32 gauge x 5/32 needleStart: 01-16-2025 End: 86-96-6656Dcm Needle, Diabetic (Bd Ilene 2nd Gen Pen Needle) 32 gauge x 5/32 needleStart: 01-16-2025 End: 01-16-2025 Goals DatePatient GoalDesired Activity/State Functional Status VlglTlbfbifcteTfspieZvsyhntg01-10-2351Nfgbuitujr statusPatient at Baseline [facility] Work Phone: 1([phone]) 981-382912505734-98-0814Rzsehxvodi statusPatient is Progressing Toward BaselineA[facility] Work Phone: 1([phone] 706-922712812542-47-8218Jpsqrugbtt statusPatient at Baseline [facility] Work Phone: Mental Status CvhqBayirrqooyPkucyhSoxhbyrk00-47-2912Ewgdtcmvp functionCognitive Status Patient at [facility] Work Phone: 1(808) 430-146812-757689-68-0480Ceohdpulq functionCognitive Status Patient at [facility] Work Phone: [phone]) [phone]Mfvzrwfrl functionCognitive Status Patient at [facility] Work Phone: Clinical Notes 11-23-2022 to 06-07-2025 Note Date & RwfgSpwrNbsffcqw14-62-2999 Evaluation + Plan note* Assessment & Plan Note - José Antonio Hills APRN-RESIDENTIAL INSTRUCTOR - 06/07/2025 5:15 PM EDTAssociated Problem(s): Edema January 2025: 1 month ago [...] no improvement with transitioned over to Demadex. April 2025: PAD workup was negative. She actually presents to the office today with a 5 pound weight loss and significant improvement noted in her lower extremity edema. She reports she has been trying to keep them elevated a little more often and this seems to help. [facility] Work Phone: [phone] 323-499407-31-2025 Miscellaneous Notes* Assessment & Plan Note - WHITNEY Garces - 06/07/2025 5:15 PM EDTAssociated Problem(s): Edema January 2025: 1 month ago [...] no improvement with transitioned over to Demadex. April 2025: PAD workup was negative. She actually presents to the office today with a 5 pound weight loss and significant improvement noted in her lower extremity edema. She reports she has been trying to keep them elevated a little more often and this seems to help. * Assessment & Plan Note - WHITNEY Garces - 06/07/2025 5:14 PM EDT Associated Problem(s): BMI 26.0-26.9,adult Reviewed the merits of healthy lifestyle choices on overall cardiovascular health. * Assessment & Plan Note - WHITNEY Garces - 06/07/2025 5:14 PM EDT Associated Problem(s): Cardiomyopathy, ischemic ICM HF improved EF 64% Oct 2024 MUGA (at time of anterior STEMI EF 35-40% with anterior apical hypokinesis) April 2025 TTE LVEF 60-65% Resolution of anterior apical hypokinesis * Assessment & Plan Note - WHITNEY Garces - 06/07/2025 5:13 PM EDT Associated Problem(s): Hyperlipidemia Tolerating high intensity statin December 2024 LDL 89, HDL 57 * Assessment & Plan Note - WHITNEY Garces - 06/07/2025 5:13 PM EDT Associated Problem(s): Essential hypertension, benign optimal in office * Assessment & Plan Note - WHITNEY Garces - 06/07/2025 5:13 PM EDT Associated Problem(s): CAD (coronary artery disease) Remote PCI Jun 29, 2024 Ant STEMI mLAD PCI/[place] 2.5x15mm & 2.5x8mm M/d RCA PCI/[place] 3x15mm & 2.5x22mm documented in this [facility] Work Phone: [phone] Evaluation + Plan note* Assessment & Plan Note - WHITNEY Garces - 06/07/2025 5:14 PM EDTAssociated Problem(s): BMI 26.0-26.9,adult Reviewed the merits of healthy lifestyle choices on overall cardiovascular health. [facility] Work Phone: [phone] Evaluation + Plan note* Assessment & Plan Note - WHITNEY Garces - 06/07/2025 5:14 PM EDTAssociated Problem(s): Cardiomyopathy, ischemic ICM HF improved EF 64% Oct 2024 MUGA (at time of anterior STEMI EF 35-40% with anterior apical hypokinesis) April 2025 TTE LVEF 60-65% Resolution of anterior apical hypokinesis [facility] Work Phone: [phone] 538-925507-31-2025 Evaluation + Plan note* Assessment & Plan Note - WHITNEY Graces - 06/07/2025 5:13 PM EDTAssociated Problem(s): Hyperlipidemia Tolerating high intensity statin December 2024 LDL 89, HDL 57 [facility] Work Phone: [phone] 375-272407-31-2025 Evaluation + Plan note* Assessment & Plan Note - WHITNEY Garces - 06/07/2025 5:13 PM EDTAssociated Problem(s): Essential hypertension, benign optimal in office [facility] Work Phone: [phone] 316-751007-31-2025 Evaluation + Plan note* Assessment & Plan Note - WHITNEY Garces - 06/07/2025 5:13 PM EDTAssociated Problem(s): CAD (coronary artery disease) Remote PCI Jun 29, 2024 Ant STEMI mLAD PCI/[place] 2.5x15mm & 2.5x8mm M/d RCA PCI/[place] 3x15mm & 2.5x22mm [facility] Work Phone: 1([phone] 228-497707-30-2025 History of Present illness Narrative* José Antonio Hills, STRIPPER SHOVEL OPERATOR-RESIDENTIAL INSTRUCTOR - 06/06/2025 11:00 AM EDT Chief Complaint My swelling seems to be a little better Reason for Visit 1 month follow-up Patient presents to the office today for outpatient follow-up for edema and testing follow-up. Last evaluated in clinic by myself April 2025. Lower extremity PVR showed no concern for arterial disease. Presents today ambulatory with cane and steady gait. Accompanied by family member Patient denies any hospitalizations or significant changes to interval medical history since last office follow-up. History of Present Illness Patient is a very pleasant 85-year-old female who presents today with her lower extremity edema is actually better. She reports she has been trying to keep them more elevated during the day and this seems to be helping. She otherwise remains aerobically active completing ADLs, housework and workingon her flower beds. She denies any recurrent angina symptoms. No dizziness or lightheadedness or evidence of effective arterial volume depletion. She does report recent labs, will need to obtain. Patient reports that overall has no complaint(s) of chest pain, chest pressure/discomfort, claudication, dyspnea, exertional chest pressure/discomfort, fatigue, irregular heart beat, and lower extremity edema Daily activity: 4 METs Denies any change in exercise capacity or functional tolerance since last office visit. Review of Systems Cardiovascular: Negative for chest pain, dyspnea on exertion, irregular heartbeat, leg swelling, near-syncope, orthopnea, palpitations, paroxysmal nocturnal dyspnea and syncope. Visit Vitals BP 118/60 (BP Location: Left arm, Patient Position: Sitting) Pulse 72 Ht 1.651 m (5' 5 ) Wt 71.7 kg (158 lb) BMI 26.29 kg/m Smoking Status Never BSA 1.81 m Physical Exam Vitals and nursing note reviewed. HENT: Head: Normocephalic. Cardiovascular: Rate and Rhythm: Normal rate and regular rhythm. Heart sounds: Normal heart sounds. Comments: Trace ankle Pulmonary: Effort: Pulmonary effort is normal. Breath [...] Daily metoprolol succinate XL (TOPROL-XL) 50 mg, oral, Daily (629) nitroglycerin (NITROSTAT) 0.4 mg, sublingual, Every 5 min PRN Ozempic 0.25 mg or 0.5 mg (2 mg/3 mL) pen injector INJECT 0.25 MG SUBCUTANEOUSLY EVERY WEEK. INCREASE TO 0.5 MG ON WEEK 5 IF TOLERATED sennosides-docusate sodium (Juliana-Colace) 8.6-50 mg tablet 1 tablet, 2 times daily spironolactone (ALDACTONE) 25 mg, oral, 2 times daily torsemide (DEMADEX) 40 mg, oral, Daily valsartan (DIOVAN) 40 mg, oral, Every 12 hours scheduled (0630,1830) zolpidem (AMBIEN) 5 mg, Nightly PRN Assessment: CAD (coronary artery disease) Remote PCI Jun 29, 2024 Ant STEMI mLAD PCI/[place] 2.5x15mm & 2.5x8mm M/d RCA PCI/[place] 3x15mm & 2.5x22mm Essential hypertension, benign optimal in office Hyperlipidemia Tolerating high intensity statin December 2024 LDL 89, HDL 57 Cardiomyopathy, ischemic ICM HF improved EF 64% Oct 2024 MUGA (at time of anterior STEMI EF 35-40% with anterior apical hypokinesis) April 2025 TTE LVEF 60-65% Resolution of anterior apical hypokinesis BMI 26.0-26.9,adult Reviewed the merits of healthy lifestyle choices [...] no improvement with transitioned over to Demadex. April 2025: PAD workup was negative. She actually presents to the office today with a 5 pound weight loss and significant improvement noted in her lower extremity edema. She reports she has been trying to keep them elevated a little more often and this seems to help. Plan: Through informed decision making process incorporating patients unique circumstances, the followingtreatment plan will be initiated: 1. Prescription drug management of cardiovascular medication for efficacy, adherence to treatment, side effect assessment and polypharmacy. Current treatment clinically warranted and to continue without modifications. 2. Return for follow-up; in the interim, contact the office if new symptoms arise. Dr. Mcdermott 6 months José Antonio Hills MSN, STRIPPER SHOVEL OPERATOR-RESIDENTIAL INSTRUCTOR, PMHNP-[facility] [place], [place] Please excuse any errors in grammar or translation related to this dictation. Voice recognition software was utilized to prepare this document. documented in this [facility] Work Phone: [phone]) [phone] Instructions* Patient Instructions* WHITNEY Garces - 06/06/2025 11:00 AM EDT Please bring all medicines, vitamins, [...] warranted and to continue without modifications. 2. Return for follow-up; in the interim, contact the office if new symptoms arise. Dr. Mcdermott 6 months documented in this [facility] Work Phone: 1([phone] Evaluation note* Diagnosis Onset Date Resolution Status Admit Date BMI 26.0-26.9,adult acuteJuly 2024 8:13amDietary counseling and surveillanceacuteJuly 2024 8:13amHyperlipidemiaacuteJuly 2024 8:13amHypertensionacuteJuly 2024 8:13amType 2 diabetes mellitus with hyperglycemiaacuteJuly 2024 8:13amType 2 diabetes mellitus with other specified complicationacuteAugust 2024 9:54amBMI 26.0-26.9,adultacuteSeptember 2024 10:54amDietary counseling and surveillanceacuteSeptember 2024 10:54amHyperlipidemiaacute Sheila 2024 10:54amHypertensionacuteSeptember 2024 10:54amType 2 diabetes mellitus with hyperglycemiaacuteSeptember 2024 10:54am [facility] Work Phone: [phone] Radiology [facility] [place] [address] [place], [place] [address] Ultrasound Report Signed Patient: Heidi Palmer MR#: [id number] : 1940 Acct:[id number] Age/Sex: 85 / F ADM Date: 5 Loc: Room: Type: REG CLI Attending Dr: José Antonio Hills APRN Ordering Provider: José Antonio Hills APRN Date of Service: 05/16/25 US/US arterial pvr rest LE: R60.9, E11.59 Copies to: José Antonio Hills APRN~ LOWER EXTREMITY SEGMENTAL ARTERIAL DOPSCAN (PVR) INDICATION: R60.9 PROCEDURE: Right arm blood pressure is 121 , left is not obtained . Pressuresthroughout the right leg are CNO at the high thigh, at the CNO low thigh, 134 at the calf, 128 at the ankle using the posterior tibial artery, and 122 at the ankle using the dorsalis pedis artery with ankle-brachial index of 1.061.01 . Pressures throughout the left leg are [...] Dale M.D. 05/16/2025 4:26 PM Dictation Location: [facility]04 Tech: Afua Jak Transcribed By: CHEKO 05/16/251625 Dictated By: Jamison Dale MD 05/16/251624 Signed By: 05/16/25 [facility] Work Phone: 1([phone]) [phone] Evaluation + Plan note* Assessment & Plan Note - José Antonio Hills APRN-RESIDENTIAL INSTRUCTOR - 05/09/2025 4:47 PM EDTAssociated Problem(s): Edema January 2025: 1 month ago [...] ambulation. Although unlikely, will check for PAD. [facility] Work Phone: [phone]) 219-988307-02-2025 Miscellaneous Notes* Assessment & Plan Note - WHITNEY Garces - 05/09/2025 4:47 PM EDTAssociated Problem(s): Edema January 2025: 1 month ago [...] 2.5x8mm M/d RCA PCI/[place] 3x15mm & 2.5x22mm documented in this [facility] Work Phone: 1([phone]) 774-678407-02-2025 Evaluation + Plan note* Assessment & Plan Note - WHITNEY Garces - 05/09/2025 4:46 PM EDTAssociated Problem(s): BMI 27.0-27.9,adult Reviewed the merits of healthy lifestyle choices on overall cardiovascular health. [facility] Work Phone: 1([phone]) 690-394707-02-2025 Evaluation + Plan note* Assessment & Plan Note - WHITNEY Garces - 05/09/2025 4:46 PM EDTAssociated Problem(s): Cardiomyopathy, ischemic ICM HF improved EF 64% Oct 2024 MUGA (at time of anterior STEMI EF 35-40% with anterior apical hypokinesis) April 2025 TTE LVEF 60-65% Resolution of anterior apical hypokinesis [facility] Work Phone: 1([phone]) 365-599007-02-2025 Evaluation + Plan note* Assessment & Plan Note - WHITNEY Garces - 05/09/2025 4:46 PM EDTAssociated Problem(s): Hyperlipidemia Tolerating high intensity statin December 2024 LDL 89, HDL 57 [facility] Work Phone: [phone] Evaluation + Plan note* Assessment & Plan Note - WHITNEY Garces - 05/09/2025 4:46 PM EDTAssociated Problem(s): Essential hypertension, benign optimal in office [facility] Work Phone: 1([phone]) 352-448107-02-2025 Evaluation + Plan note* Assessment & Plan Note - WHITNEY Garces - 05/09/2025 4:46 PM EDTAssociated Problem(s): CAD (coronary artery disease) Remote PCI Jun 29, 2024 Ant STEMI mLAD PCI/[place] 2.5x15mm & 2.5x8mm M/d RCA PCI/[place] 3x15mm & 2.5x22mm [facility] Work Phone: [phone] 106-866407-02-2025 History of Present illness Narrative* WHITNEY Garces - 05/09/2025 11:30 AM EDT [...] kg (163 lb 12.8 oz) BMI 27.26 kg/m Smoking Status Never BSA 1.85 m Physical Exam Vitals and nursing note [...] contact the office if new symptoms arise. PUMP MACHINE OPERATOR after testing Jsoé Antonio Hills MSN, GLORIARESIDENTIAL INSTRUCTOR, PMHNP-[facility] [place], [place] Please excuse any errors in grammar or translation related to this dictation. Voice recognition software was utilized to prepare this document. documented in this [facility] Work Phone: 1(220) [phone] Instructions* Patient Instructions* WHITNEY Garces - 05/09/2025 11:30 [...] contact the office if new symptoms arise. PUMP MACHINE OPERATOR after testing documented in this [facility] Work Phone: 1([phone]) [phone] Evaluation note* Diagnosis Onset Date Resolution Status Admit Date BMI 26.0-26.9,adult acuteJune 2024 11:15amDietary counseling and surveillanceacuteJune 2024 11:15amHyperlipidemiaacuteJune 2024 11:15amHypertensionacuteJune 2024 11:15amType 2 diabetes mellitus with hyperglycemiaacuteJune 2024 11:15amBMI 26.0-26.9,adultacuteJuly 2024 8:13amDietary counseling and surveillanceacuteJuly 2024 8:13amHyperlipidemiaacuteJuly 2024 8:13am HypertensionacuteJuly 2024 8:13amType 2 diabetes mellitus with hyperglycemiaacuteJuly 2024 8:13amType 2 diabetes mellitus with other specified complicationacuteAugust 2024 9:54am [facility] Work Phone: 1([phone]) 154-788404-23-2025 Evaluation note* Diagnosis Onset Date Resolution Status Admit Date BMI 26.0-26.9,adult acuteApril 2024 10:58amDietary counseling and surveillanceacuteApril 2024 10:58amHyperlipidemiaacuteApril 2024 10:58amHypertensionacuteApril 2024 10:58amType 2 diabetes mellitus with hyperglycemiaacuteApril 2024 10:58amCAD (coronary artery disease)acuteMay 2024 10:36amHypothyroid acuteMay 2024 10:36amMedicare annual wellness visit, subsequentacuteMay 2024 10:36amType 2 diabetes mellitus with other circulatory complications acuteMay 2024 10:36amType 2 diabetes mellitus with other specified complicationacuteMay 2024 10:36amBMI 26.0-26.9,adultacuteJune 2024 11:15amDietary counseling and surveillanceacuteJune 2024 11:15am HyperlipidemiaacuteJune 2024 11:15amHypertensionacuteJune 2024 11:15am Type 2 diabetes mellitus with hyperglycemiaacuteJune 2024 11:15am [facility] Work Phone: 1([phone] 218-994904-23-2025 Evaluation note* Diagnosis Onset Date Resolution Status Admit Date BMI 26.0-26.9,adult acuteApril 2024 10:58amDietary counseling and surveillanceacuteApril 2024 10:58amHyperlipidemiaacuteApril 2024 10:58amHypertensionacuteApril 2024 10:58amType 2 diabetes mellitus with hyperglycemiaacuteApril 2024 10:58amCAD (coronary artery disease)acuteMay 2024 10:36amHypothyroid acuteMay 2024 10:36amMedicare annual wellness visit, subsequentacuteMay 2024 10:36amType 2 diabetes mellitus with other circulatory complications acuteMay 2024 10:36amType 2 diabetes mellitus with other specified complicationacuteMay 2024 10:36amBMI 26.0-26.9,adultacuteJune 2024 11:15amDietary counseling and surveillanceacuteJune 2024 11:15am HyperlipidemiaacuteJune 2024 11:15amHypertensionacuteJune 2024 11:15am Type 2 diabetes mellitus with hyperglycemiaacuteJune 2024 11:15amBMI 26.0-26.9,adultacuteJuly 2024 8:13amDietary counseling and surveillance acuteJuly 2024 8:13amHyperlipidemiaacuteJuly 2024 8:13amHypertension acuteJuly 2024 8:13amType 2 diabetes mellitus with hyperglycemiaacuteJuly 2024 8:13am [facility] Work Phone: 1([phone]) [phone] Evaluation + Plan note* Assessment & Plan Note - WHITNEY Garces - 02/27/2025 4:48 PM EDTAssociated Problem(s): Edema January 2025: 1 month ago [...] 64% Most recent potassium 4.3, creatinine 0.98 [facility] Work Phone: [phone] Miscellaneous Notes* Assessment & Plan Note - WHITNEY Garces - 02/27/2025 4:48 PM EDTAssociated Problem(s): Edema January 2025: 1 month ago [...] 64% Most recent potassium 4.3, creatinine 0.98 * Assessment & Plan Note - WHITNEY Garces - 02/27/2025 4:47 PM EDT Associated Problem(s): BMI 26.0-26.9,adult Reviewed the merits of healthy lifestyle choices on overall cardiovascular health. * Assessment & Plan Note - WHITNEY Garces - 02/27/2025 4:46 PM EDT Associated Problem(s): Cardiomyopathy, ischemic ICM HF improved EF 64% Oct 2024 MUGA (at time of anterior STEMI EF 35-40% with anterior apical hypokinesis) * Assessment & Plan Note - WHITNEY Garces - 02/27/2025 4:46 PM EDT Associated Problem(s): CAD (coronary artery disease) Remote PCI Jun 29, 2024 Ant STEMI mLAD PCI/[place] 2.5x15mm & 2.5x8mm M/d RCA PCI/[place] 3x15mm & 2.5x22mm [facility] Work Phone: [phone] 146-712604-22-2025 Evaluation + Plan note* Assessment & Plan Note - WHITNEY Garces - 02/27/2025 4:47 PM EDTAssociated Problem(s): BMI 26.0-26.9,adult Reviewed the merits of healthy lifestyle choices on overall cardiovascular health. [facility] Work Phone: [phone]) 370-298904-22-2025 Evaluation + Plan note* Assessment & Plan Note - WHITNEY Garces - 02/27/2025 4:46 PM EDTAssociated Problem(s): Cardiomyopathy, ischemic ICM HF improved EF 64% Oct 2024 MUGA (at time of anterior STEMI EF 35-40% with anterior apical hypokinesis) [facility] Work Phone: [phone]) [phone] Evaluation + Plan note* Assessment & Plan Note - WHITNEY Garces - 02/27/2025 4:46 PM EDTAssociated Problem(s): CAD (coronary artery disease) Remote PCI Jun 29, 2024 Ant STEMI mLAD PCI/[place] 2.5x15mm & 2.5x8mm M/d RCA PCI/[place] 3x15mm & 2.5x22mm [facility] Work Phone: [phone]) [phone] History of Present illness Narrative* WHITNEY Garces - 02/26/2025 1:30 PM EDT Chief Complaint My legs are still swollen Reason for Visit 1 month follow-up Patient presents to the office today for outpatient follow-up for lower extremity edema. Last evaluated in clinic by myself 1 month ago. At that time she had persistent increasing left lower extremity edema. Her repeat ultrasound showed no evidence of DVT. She was placed on Lasix with repeat potassium 4.7, creatinine 1.02. Presents today ambulatory with cane and steady gait. Accompanied by [id number] Patient denies any hospitalizations or significant changes to interval medical history since last office follow-up. History of Present Illness Patient is a pleasant 85-year-old female who presents to the office today to have increasing left greater than right lower extremity edema. She has noted no real benefit from Lasix or with increased dosage. She has no evidence of effective arterial volume depletion. She does sleep in a recliner at nighttime for comfort. She tries to keep her legs elevated. There is no erythema or warmth. At this time, we will transition over to Demadex for better bioavailability. Will recheck echocardiogram just to make sure not missing any kind of cardiomyopathy. I will call her at the end of the week. Patient reports that overall has no complaint(s) of chest pain, chest pressure/discomfort, claudication, dyspnea, exertional chest pressure/discomfort, fatigue, and irregular heart beat Daily activity: 4 METs Denies any change in exercise capacity or functional tolerance since last office visit Review of Systems Cardiovascular: Positive for leg swelling. Negative for chest pain, dyspnea on exertion, irregular heartbeat, near-syncope, orthopnea, palpitations, paroxysmal nocturnal dyspnea and syncope. Visit Vitals BP 90/64 (BP Location: Left arm, Patient Position: Sitting) Pulse 72 Ht 1.651 m (5' 5 ) Wt 73.2 kg (161 lb 6.4 oz) BMI 26.86 kg/m Smoking Status Never BSA 1.83 m Physical Exam Vitals and nursing note reviewed. HENT: Head: Normocephalic. Cardiovascular: Rate and Rhythm: Normal rate and regular rhythm. Heart sounds: Normal heart sounds. Comments: L > R 2 + Pulmonary: Effort: Pulmonary effort is normal. Breath [...] and Penicillins Current Outpatient Medications Medication Instructions ascorbic acid [...] (VOLTAREN) 2 g, 3 times daily PRN insulin glargine-lixisenatide (Soliqua 100/33) 100 unit-33 [...] PCI Jun 29, 2024 Ant STEMI mLAD PCI/[place] 2.5x15mm & 2.5x8mm M/d RCA PCI/[place] 3x15mm & 2.5x22mm Cardiomyopathy, ischemic ICM HF improved EF 64% Oct 2024 MUGA (at time of anterior STEMI EF 35-40% with anterior apical hypokinesis) BMI 26.0-26.9,adult Reviewed the merits of healthy lifestyle choices [...] 64% Most recent potassium 4.3, creatinine 0.98 Plan: Through informed decision making process incorporating patients unique circumstances, the followingtreatment plan will be initiated: 1. Prescription drug management of cardiovascular medication for efficacy, adherence to treatment, side effect assessment and polypharmacy. Current treatment clinically warranted and to continue withfollowing modifications: - Stop furosemide (does not seem to be working) - Begin demadex (torsemide) 40mg daily 2. Echo (edema) 3. Labs (chem6, BNP) in 2 weeks 4. Return for follow-up; in the interim, contact the office if new symptoms arise. PUMP MACHINE OPERATOR after testing I will call you towards the end week to see if new water pill is helping documented in this [facility] Work Phone: [phone]) 820-665604-21-2025 Instructions* Patient Instructions* WHITNEY Garces - 02/26/2025 1:30 PM EDT Please bring all medicines, vitamins, [...] Current treatment clinically warranted and to continue withfollowing modifications: - Stop furosemide (does not seem to be working) - Begin demadex (torsemide) 40mg daily 2. Echo (edema) 3. Labs (chem6, BNP) in 2 weeks 4. Return for follow-up; in the interim, contact the office if new symptoms arise. PUMP MACHINE OPERATOR after testing I will call you towards the end week to see if new water pill is helping documented in this [facility]Pro[facility] Work Phone: [phone]) [phone] Evaluation note* Diagnosis Onset Date Resolution Status Admit Date Type 2 diabetes mellitus with hyperglyce carmen acuteMarch 2024 10:53amBMI 26.0-26.9,adultacuteApril 2024 10:58am Dietary counseling and surveillanceacuteApril 2024 10:58amHyperlipidemia acuteApril 2024 10:58amHypertensionacuteApril 2024 10:58amType 2 diabetes mellitus with hyperglycemiaacuteApril 2024 10:58amMedicare annual wellness visit, subsequentacuteMay 2024 10:36amType 2 diabetes mellitus with other circulatory complicationsacuteMay 2024 10:36amType 2 diabetes mellitus with other specified complicationacuteMay 2024 10:36am [facility] Work Phone: [phone] Evaluation note* Diagnosis Onset Date Resolution Status Admit Date Type 2 diabetes mellitus with hyperglyce carmen acuteMarch 2024 10:53amBMI 26.0-26.9,adultacuteApril 2024 10:58am Dietary counseling and surveillanceacuteApril 2024 10:58amHyperlipidemia acuteApril 2024 10:58amHypertensionacuteApril 2024 10:58amType 2 diabetes mellitus with hyperglycemiaacuteApril 2024 10:58amCAD (coronary artery disease)acuteMay 2024 10:36amHypothyroidacuteMay 2024 10:36am Medicare annual wellness visit, subsequentacuteMay 2024 10:36amType 2 diabetes mellitus with other circulatory complicationsacuteMay 2024 10:36amType 2 diabetes mellitus with other specified complicationacuteMay 2024 10:36amBMI 26.0-26.9,adultacuteJune 2024 11:15amDietary counseling and surveillanceacuteJune 2024 11:15amHyperlipidemiaacuteJune 2024 11:15amHypertensionacuteJune 2024 11:15amType 2 diabetes mellitus with hyperglycemiaacuteJune 2024 11:15am [facility] Work Phone: [phone] 318-655503-17-2025 Evaluation + Plan note* Assessment & Plan Note - José Antonio Hills APRN-STEPHANIE - 01/22/2025 4:12 PM EDTAssociated Problem(s): Edema 1 month ago patient presented off of her Lasix with increasing bilateral lower extremity edema. Shehas now been compliant with Lasix 40 mg daily and presents today with increased left greater than right edema. The left leg is edematous almost up into her mid thigh, it is somewhat painful. She is not on anticoagulation and will send for ultrasound to rule out DVT. Otherwise, on no offending agents. Last LVEF 64% Most recent potassium 4.3, creatinine 0.98 [facility] Work Phone: 1([phone]) 238-396003-17-2025 Miscellaneous Notes* Assessment & Plan Note - WHITNEY Garces - 01/22/2025 4:12 PM EDTAssociated Problem(s): Edema 1 month ago patient presented off of her Lasix with increasing bilateral lower extremity edema. Shehas now been compliant with Lasix 40 mg daily and presents today with increased left greater than right edema. The left leg is edematous almost up into her mid thigh, it is somewhat painful. She is not on anticoagulation and will send for ultrasound to rule out DVT. Otherwise, on no offending agents. Last LVEF 64% Most recent potassium 4.3, creatinine 0.98 * Assessment & Plan Note - WHITNEY Garces - 01/22/2025 4:11 PM EDT Associated Problem(s): BMI 26.0-26.9,adult Has 10 pound weight gain. Has not been taking lasix daily with increased b/l lower ext edema * Assessment & Plan Note - WHITNEY Garces - 01/22/2025 4:10 PM EDT Associated Problem(s): Cardiomyopathy, ischemic ICM HF improved EF 64% Oct 2024 MUGA (at time of anterior STEMI EF 35-40% with anterior apical hypokinesis) * Assessment & Plan Note - WHITNEY Garces - 01/22/2025 4:10 PM EDT Associated Problem(s): Hyperlipidemia Tolerating high intensity statin December 2024 LDL 89, HDL 57 * Assessment & Plan Note - WHITNEY Garces - 01/22/2025 4:10 PM EDT Associated Problem(s): Essential hypertension, benign optimal in office * Assessment & Plan Note - WHITNEY Garces - 01/22/2025 4:10 PM EDT Associated Problem(s): CAD (coronary artery disease) Remote PCI Jun 29, 2024 Ant STEMI mLAD PCI/[place] 2.5x15mm & 2.5x8mm M/d RCA PCI/[place] 3x15mm & 2.5x22mm documented in this [facility]Pro[facility] Work Phone: [phone] Evaluation + Plan note* Assessment & Plan Note - WHITNEY Garces - 01/22/2025 4:11 PM EDTAssociated Problem(s): BMI 26.0-26.9,adult Has 10 pound weight gain. Has not been taking lasix daily with increased b/l lower ext edema [facility] Work Phone: [phone] Evaluation + Plan note* Assessment & Plan Note - WHITNEY Garces - 01/22/2025 4:10 PM EDTAssociated Problem(s): Cardiomyopathy, ischemic ICM HF improved EF 64% Oct 2024 MUGA (at time of anterior STEMI EF 35-40% with anterior apical hypokinesis) [facility] Work Phone: [phone]) 396-929003-17-2025 Evaluation + Plan note* Assessment & Plan Note - WHITNEY Garces - 01/22/2025 4:10 PM EDTAssociated Problem(s): Hyperlipidemia Tolerating high intensity statin December 2024 LDL 89, HDL 57 [facility] Work Phone: [phone] Evaluation + Plan note* Assessment & Plan Note - WHITNEY Garces - 01/22/2025 4:10 PM EDTAssociated Problem(s): Essential hypertension, benign optimal in office [facility] Work Phone: [phone] Evaluation + Plan note* Assessment & Plan Note - WHITNEY Garces - 01/22/2025 4:10 PM EDTAssociated Problem(s): CAD (coronary artery disease) Remote PCI Jun 29, 2024 Ant STEMI mLAD PCI/[place] 2.5x15mm & 2.5x8mm M/d RCA PCI/[place] 3x15mm & 2.5x22mm [facility] Work Phone: [phone] History of Present illness Narrative* WHITNEY Garces - 01/22/2025 11:30 AM EDT Chief Complaint My legs are swelling even worse Reason for Visit 1 month follow-up Patient presents to the office today for outpatient follow-up for medication reconciliation, lower extremity edema. Last evaluated in clinic by myself 1 month ago. At that time she was not taking her Lasix and therewas questionable compliance with Plavix. Resumed her Lasix with repeat potassium 4.3, creatinine 0.98. Dndfvekq-yv-[id number] verifies that she is compliant with clopidogrel. Presents today ambulatory with steady gait. Accompanied by [id number]. Patient denies any hospitalizations or significant changes to interval medical history since last office follow-up. History of Present Illness Patient is an extremely pleasant 84-year-old female who presents to the office today with primary concern of progressive left greater than right lower extremity edema. She denies any blisters or openwounds, it is not dependent in nature. She [...] PCI Jun 29, 2024 Ant STEMI mLAD PCI/[place] 2.5x15mm & 2.5x8mm M/d RCA PCI/[place] 3x15mm [...] Lasix with increasing bilateral lower extremity edema. Shehas now been compliant with Lasix 40 mg [...] circumstances, the followingtreatment plan will be initiated: Take 2 tablets of furosemide daily for next 3 days - I will call you to see how things aregoing LLE USN t/o DVT (edema, pain) Return for follow-up; in the interim, contact the office if new symptoms arise. 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 [place], [place] Please excuse any errors in grammar or translation related to this dictation. Voice recognition software was utilized to prepare this document. documented in this encounterPro[facility] Work Phone: [phone] Instructions* Patient Instructions* WHITNEY Garces - 01/22/2025 11:30 AM EDT [...] circumstances, the followingtreatment plan will be initiated: Take 2 tablets of furosemide daily for next 3 days - I will call you to see how things aregoing LLE USN t/o DVT (edema, pain) Return for follow-up; in the interim, contact the office if new symptoms arise. 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 month documented in this encounterPro[facility] Work Phone: [phone] Evaluation + Plan note* Assessment & Plan Note - WHITNEY Garces - 12/20/2024 1:42 PM ESTAssociated Problem(s): Edema Not taking lasix daily EF 64% RVSP 40-50mmHG No offending medications [facility] Work Phone: [phone] Miscellaneous Notes* Assessment & Plan Note - WHITNEY Garces - 12/20/2024 1:42 PM ESTAssociated Problem(s): Edema Not taking lasix daily EF 64% RVSP 40-50mmHG No offending medications * Assessment & Plan Note - WHITNEY Garces - 12/20/2024 1:41 PM EST Associated Problem(s): BMI 26.0-26.9,adult Has 10 pound weight gain. Has not been taking lasix daily with increased b/l lower ext edema * Assessment & Plan Note - WHITNEY Garces - 12/20/2024 1:40 PM EST Associated Problem(s): Diabetes mellitus (Multi) On ARB/statin Unknown HgA1c * Assessment & Plan Note - WHITNEY Garces - 12/20/2024 1:40 PM EST Associated Problem(s): Cardiomyopathy, ischemic ICM HF improved EF 64% Oct 2024 MUGA (at time of anterior STEMI EF 35-40% with anterior apical hypokinesis) * Assessment & Plan Note - WHITNEY Garces - 12/20/2024 1:39 PM EST Associated Problem(s): Hyperlipidemia Tolerating high intensity statin Due for repeat labs * Assessment & Plan Note - WHITNEY Garces - 12/20/2024 1:39 PM EST Associated Problem(s): Essential hypertension, benign optimal in office * Assessment & Plan Note - WHITNEY Garces - 12/20/2024 1:39 PM EST Associated Problem(s): CAD (coronary artery disease) Remote PCI Jun 29, 2024 Ant STEMI mLAD PCI/[place] 2.5x15mm & 2.5x8mm M/d RCA PCI/[place] 3x15mm & 2.5x22mm documented in this encounterUnOhio[facility] Work Phone: [phone] Evaluation + Plan note* Assessment & Plan Note - WHITNEY Garces - 12/20/2024 1:41 PM ESTAssociated Problem(s): BMI 26.0-26.9,adult Has 10 pound weight gain. Has not been taking lasix daily with increased b/l lower ext edema [facility] Work Phone: [phone] Evaluation + Plan note* Assessment & Plan Note - WHITNEY Garces - 12/20/2024 1:40 PM ESTAssociated Problem(s): Diabetes mellitus (Multi) On ARB/statin Unknown HgA1c [facility] Work Phone: [phone] Evaluation + Plan note* Assessment & Plan Note - WHITNEY Garces - 12/20/2024 1:40 PM ESTAssociated Problem(s): Cardiomyopathy, ischemic ICM HF improved EF 64% Oct 2024 MUGA (at time of anterior STEMI EF 35-40% with anterior apical hypokinesis) [facility] Work Phone: [phone] Evaluation + Plan note* Assessment & Plan Note - WHITNEY Garces - 12/20/2024 1:39 PM ESTAssociated Problem(s): Hyperlipidemia Tolerating high intensity statin Due for repeat labs [facility] Work Phone: [phone] Evaluation + Plan note* Assessment & Plan Note - WHITNEY Garces - 12/20/2024 1:39 PM ESTAssociated Problem(s): Essential hypertension, benign optimal in office [facility] Work Phone: [phone] Evaluation + Plan note* Assessment & Plan Note - WHITNEY Garces - 12/20/2024 1:39 PM ESTAssociated Problem(s): CAD (coronary artery disease) Remote PCI Jun 29, 2024 Ant STEMI mLAD PCI/[place] 2.5x15mm & 2.5x8mm M/d RCA PCI/[place] 3x15mm & 2.5x22mm [facility] Work Phone: [phone] History of Present illness Narrative* WHITNEY Garces - 12/20/2024 11:30 AM EST Chief Complaint I think I am ok Reason for Visit 4 month follow up. Patient presents to the office today for outpatient follow-up for hypertension, hyperlipidemia, andcoronary artery disease and ICM. Last evaluated in clinic by Dr. Mcdermott Jul 2024. Oct 2024 MUGA ef 64% Presents today ambulatory with cane and steady gait. Accompanied by daughter. Patient denies any hospitalizations or significant changes to interval medical history since last office follow-up. History of Present Illness Patient is an extremely pleasant 84-year-old female who presents to the office today with no voicedcardiovascular complaints. She reportedly completed cardiac rehab, it [...] medication. Presents today off of Plavix -reports itwas stopped at time of cataracts and she [...] and irregular heart beat or has complaint(s) ofdyspnea and irregular heart beat. Daily activity: > [...] PCI Jun 29, 2024 Ant STEMI mLAD PCI/[place] 2.5x15mm & 2.5x8mm M/d RCA PCI/[place] 3x15mm & 2.5x22mm Essential hypertension, benign optimal [...] Current treatment clinically warranted and to continue withfollowing modifications: - Make sure you are taking Plavix 75mg daily - ASA 81mg daily - Resume lasix 40mg daily 2. Labs (lipids,chem6,BNP) in one week 3. Return for follow-up; in the interim, contact the office if new symptoms arise. 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 [place], [place] Please excuse any errors in grammar or translation related to this dictation. Voice recognition software was utilized to prepare this document. documented in this [facility] Work Phone: [phone]) [phone] Instructions* Patient Instructions* WHITNEY Garces - 12/20/2024 11:30 AM EST [...] Current treatment clinically warranted and to continue withfollowing modifications: - Make sure you are taking Plavix 75mg daily - ASA 81mg daily - Resume lasix 40mg daily 2. Labs (lipids,chem6,BNP) in one week 3. Return for follow-up; in the interim, contact the office if new symptoms arise. 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 month documented in this encounterPro[facility] Work Phone: [phone]) 173-237002-05-2025 [facility] [place] [address] Cancer Center Note Signed Patient: Heidi Palmer MR#: [id number] : 1940 Acct:[id number] Age/Sex: 84 / F Type: REG AMB [...] did not show convincing evidence of highly suspiciouslesion for metastatic or primary malignant masses of [...] her to have a follow-up with her coffee blender Dr. Stark since she has worsening bilateral lower extremity edema. Plan is to do a CT of the chest without contrast in 6 months and see her then infollow-up for the bilateral lung masses initially seen for 1 more confirmation of that and if it reveals no more massesthen we can discharge her from our oncology [...] mass initially seen previously has resolved on thecurrent CAT scans. She currently does not smoke. [...] without contrast reviewed grossly stable tree-in-bud nodularity involvingthe left lung compared to 06/07/2024 study. No progression of disease is seen. CT follow-up is recommended to ensure resolution. Patient did not get her screening mammogram and she does not want to get any screening mammogram anymore because she is 84-year-old. She had non-STEMI in June 2024 and she thinks she is too old forscreening mammogram. She agreed to follow lung CTs [...] obtain the path report from 08/02/2023 from [facility] for the needlebiopsy of the thyroid [...] reduction and internal fixation on [facility]23[facility] by [facility]opedic surgery. As part of the fall evaluation she had a CT of head neck chest x-rays of the bones in addition to the femoralshe was found to have bilateral noncalcified lung nodules the largest of which is in the right upper lung. CAT scan of the chest was done on 10/11/2023 revealed the largest mass in the right upper lung 3.1 cm cannot rule out metastatic disease versus infections. For therefore oncology was consulted f or further recommendations. As of 10/13/2023 morning when I saw her she was toolethargic little bit not very good historian but she stated that she had a left breast surgery probably at [facility] about 3035 years ago and she [...] close by. The daughter Lyubov lives in [place]. Patient has not seen oncologist to her [...] masslike areas of consolidation are noted bilaterally. Thelargest in the right upper lobe measures 3.1 cm in greatest dimension. The largest in the left lower lobe measures 1 cm in greatestdimension. The largest in the left upper lobe measures 1.8 cm in grea test dimension. These are suspicious for malignancy given [...] 08/02/23, she [facility] negative for [facility]. Path report is not available to us but will obtain it from there. She denied CP or SOB or wheezing but has stuffy nose form allergies chronically. She denied history of moldsin her house. She denied bleeding from any [...] or activities in the lungs but no co nvincing activity to require a biopsy as this could be inflammation or or atelectasis. Did show enlarging right pleural effusion however. Her mammogram was benign and was done on 12/01/2023. Patient denies any shortness of breath orcough or hemoptysis. She has however worsening bilateral lower extremity edema. She has not seen Dr. Stark her coffee blender for a while now but she is already taking Lasix. 06/09/24: She is here for the 6 months follow-up for her history of the right lung mass and history of breastcancer as well as history of thyroid surgery [...] without contrast reviewed grossly stable tree-in-bud nodularity involvingthe left lung compared to 06/07/2024 study. No progression of disease is seen. CT follow-up is recommended to ensure resolution. Patient did not get her screening mammogram and she does not want to get any screening mammogram anymore because she is 84-year-old. She had non-STEMI in June 2024 and she thinks she is too old forscreening mammogram. She agreed to follow lung CTs [...] MOUTH EVERYDAY AT BEDTIME blood sugar diagnostic (iiMondeuch Ultra Test strips) As directed blood-glucose meter (AvantCreditTouch Ultra2 Meter) As directed blood-glucose sensor (FreeStyle Violeta 3 Sensor device) As directed invitro, change every 14 days blood-glucose sensor (FreeStyle Violeta 3 Plus Sensor device) As directed change [...] (Soliqua 100/33) 23 units subcut DAILY lancets (AvantCreditTouch Delica Plus Lancet) As directed levothyroxine 50 [...] No concerns voiced at time of intake. [facility] Medical History Medical History Abnormal breast [...] Tosha Patel MD DD/ 1253 Signed By: 12/13/24 1322 [facility]01-29-2025 Evaluation note* Diagnosis Onset Date Resolution Status Admit Date BMI 26.0-26.9,adult acuteJanuary 2024 10:50amDietary counseling and surveillanceacuteJanuary 2024 10:50amHyperlipidemiaacuteJanuary 2024 10:50amHypertensionacute December 06, 2024 10:50amType 2 diabetes mellitus with hyperglycemiaacute December 06, 2024 10:50amHistory of left breast canceracuteFebruary 2024 12:44pmMass of right lungacuteFebruary 2024 12:44pmHistory of thyroid surgeryinactiveFebruary 2024 12:44pmHistory of left breast canceracute December 13, 2024 12:50pmMass of right lungacuteFebruary 2024 12:50pm History of thyroid surgeryinactiveFebruary 2024 12:50pm [facility] Work Phone: 1(274) 591-633301-29-2025 Evaluation note* Diagnosis Onset Date Resolution Status Admit Date BMI 26.0-26.9,adult acuteJanuary 2024 10:50amDietary counseling and surveillanceacuteJanuary 2024 10:50amHyperlipidemiaacuteJanuary 2024 10:50amHypertensionacute December 06, 2024 10:50amType 2 diabetes mellitus with hyperglycemiaacute December 06, 2024 10:50amHistory of left breast canceracuteFebruary 2024 12:44pmMass of right lungacuteFebruary 2024 12:44pmHistory of thyroid surgeryinactiveFebruary 2024 12:44pmHistory of left breast canceracute December 13, 2024 12:50pmMass of right lungacuteFebruary 2024 12:50pm History of thyroid surgeryinactiveFebruary 2024 12:50pmType 2 diabetes mellitus with hyperglycemiaacuteRobert [facility]20[facility] 10:53am [facility] Work Phone: 1([phone]) 741-883601-29-2025 Evaluation note* Diagnosis Onset Date Resolution Status Admit Date BMI 26.0-26.9,adult acuteJanuary 2024 10:50amDietary counseling and surveillanceacuteNovuary 2024 10:50amHyperlipidemiaacuteJanuary 2024 10:50amHypertensionacute December 06, 2024 10:50amType 2 diabetes mellitus with hyperglycemiaacute December 06, 2024 10:50amHistory of left breast canceracuteFebruary 2024 12:44pmMass of right lungacuteFebruary 2024 12:44pmHistory of thyroid surgeryinactiveFebruary 2024 12:44pmHistory of left breast canceracute December 13, 2024 12:50pmMass of right lungacuteFebruary 2024 12:50pm History of thyroid surgeryinactiveFebruary 2024 12:50pmType 2 diabetes mellitus with hyperglycemiaacuteMarch 2024 10:53amBMI 26.0-26.9,adultacute February 28, 2025 10:58amDietary counseling and surveillanceacuteApril 2024 10:58amHyperlipidemiaacuteApril 2024 10:58amHypertensionacuteApril 2024 10:58amType 2 diabetes mellitus with hyperglycemiaacuteApril 2024 10:58am [facility] Work Phone: 1([phone]) 678-687311-01-2024 Evaluation note* Diagnosis Onset Date Resolution Status Admit Date BMI 26.0-26.9,adult acuteNovember 2023 8:43amDietary counseling and surveillanceacuteNov2023 8:43amHyperlipidemiaacuteNov2023 8:43amHypertensionacute September 08, 2024 8:43amType 2 diabetes mellitus with hyperglycemiaacute September 08, 2024 8:43am [facility] Work Phone: 1(175) 347-543009-05-2024 History of Present illness Narrative* David Mcdermott, DO - 07/13/2024 10:30 AM EDT Subjective Heidi Palmer is a 84 y.o. female Chief Complaint Follow-up 84-year-old female here for TCM visit following acute CA with revascularization of the RCA and LAD with significant LV dysfunction ejection fraction of 35%. She is feeling better, no shortness of breath, remains somewhat debilitated in regards to ambulatory capacity due to unsteady gait, history offalls, utilizes a cane and advanced age. She has a previous history of CA with revascularization procedures in [place]. She is now on appropriate GDMT as [...] tablet, Nitroglycerin Active 0.4 MG SUBLINGUAL Q5M 2023 12:00am, Disp: , Rfl: sennosides-docusate sodium (Juliana-Colace) [...] Rfl: Assessment/Plan 1. Coronary artery disease involving tonawanda heart, unspecified vessel or lesion type, unspecified [...] exam, discussion and plan. documented in this encounterPro[facility] Work Phone: 1(908) 502-198209-05-2024 Instructions* Patient Instructions* Rebekah Hughes RN - [...] of your cardiac medications documented in this encounterPro[facility] Work Phone: 1(645) 132-531408-22-2024 Progress note Author Tl Wild [facility] June 29, 2024 5:10pmNote Date/TimeAugust 2023 5:10[place] [address] Progress Note Signed Patient: Heidi Palmer MR#: [id number] : 1940 Acct:[id number] Age/Sex: 84 / F Adm Date: 4 Loc: Room: [address] [place] [address] Type: ADM IN Attending Dr: Roberto Carlos [...] <Electronically signed by MD Tl Wild> 06/29/241709 [facility] Work Phone: 1(933) 208-906508-22-2024 Progress note Author Roberto Carlos Mcdermott [facility] June 29, 2024 11:29amNote Date/TimeAugust 2023 11:29[place] [address] Cardiology Progress Note Signed Patient: Heidi Palmer MR#: [id number] : 1940 Acct:[id number] Age/Sex: 84 / F Adm Date: 4 Loc: Room: [address] [place] [address] Type: ADM IN Attending Dr: Roberto Carlos Mcdermott DO Copies to: ~ Date of Service: 06/29/2024 Subjective Principal diagnosis: Anteroapical STEMI Interval history: Ms. Palmer is a 84 year old female admitted in transfer emergently from [place] with new onset chest discomfort, ER arrival 0009, ECG with changes consistent with anterior STEMI involving ST elevation in lead V1 and V2. I was contacted by Dr. Allen at 12:59 AM, reviewed ECGs via electronic transmitted media from 2022 and current ECG performed at 12:56 AM. (Incidentally, current ECG probablyreveals lead misplacement of lead I and aVR) Patient arrived at [facility] via [facility] at 0228; first device activation 0244; door to device time 16 minutes (delay in [employer] arrival anddeparture at outside facility) Past medical history: ASHD with prior PCI's of LAD and RCA at [facility] February 2012 with 1 episode of restenosis of the LAD, with repeat PCI details unknown. Patient used to follow with [facility] up until 2019and then followed with Dr. Hayward thereafterwards; has had no cardiov ascular complaints upon review of Dr. Hayward's notes [...] time were devoted to the ER staff, Marriage Therapist staff, nursing staff, patient and family both [...] 113/56 L 98 Room Air 2 06/29/24 08:00 06/29/24 10:00 06/29/24 10:00 06/29/24 10:00 06/29/24 10:00 06/29/24 10:00 06/29/24 04:35 Const General: cooperative Nutritional [...] % (Auto) 77.1 Lymph % (Auto) 15.0 [place] % (Auto) 6.6 Eos % (Auto) 0.5 Baso % (Auto) 0.8 Nucleat RBC Rel Count 0.1 Neut # (Auto) 10.7 H Lymph # (Auto) 2.1 [place] # (Auto) 0.9 H Eos # (Auto) [...] artery disease): Qualifiers: Coronary Disease-Associated Artery/Lesion type: ton[place]anda artery [place] vs. transplanted heart: nativeheart Code(s): I25.10 - Atherosclerotic heart disease of tonawanda coronary artery without angina pectoris (3) Diabetes: [...] signed by Roberto Carlos Mcdermott DO> 06/29/24 [facility] Work Phone: 1(559) 223-683808-22-2024 History and physical note Author Roberto Carlos Mcdermott [facility] June 29, 2024 3:25amNote Date/TimeAugust 2023 2:18[place] [address] Cardiology H&P Signed Patient: Heidi Palmer MR#: [id number] : 1940 Acct:[id number] Age/Sex: 84 / F Adm Date: 4 Loc: Room: Type: [facility] Attending Dr: Roberto Carlos Mcdermott DO Copies to: MD Roberto Carlos Ayala DO~ Date of Service: 06/29/2024 Cardiology HPI History of Present Illness Chief complaint: Anterior STEMI HPI: Ms. Palmer is a 84 year old female admitted in transfer emergently from [place] with new onset chest discomfort, ER arrival 0009, ECG with changes consistent with anterior STEMI involving ST elevation in lead V1 and V2. I was contacted by Dr. Allen at 12:59 AM, reviewed ECGs via electronic transmitted media from 2022 and current ECG performed at 12:56 AM. (Incidentally, current ECG probablyreveals lead misplacement of lead I and aVR) Patient arrived at [facility] via [facility] at 0228; first device activation 0244; door to device time 16 minutes (delay in [employer] arrival anddeparture at outside facility) Past medical history: ASHD with prior PCI's of LAD and RCA at [facility] February 2012 with 1 episode of restenosis of the LAD, with repeat PCI details unknown. Patient used to follow with [facility] up until 2019and then followed with Dr. Hayward thereafterwards; has had no cardiov ascular complaints upon review of Dr. Hayward's notes [...] time were devoted to the ER staff, Marriage Therapist staff, nursing staff, patient and family both pre and post procedurally. [facility] Medical History (Updated 06/29/24 @ 02:18 [...] unit) tablet (Oyster Shell Calcium-Vitamin D3) 1 tabPO BID #60 tabs 10/26/23 [Rx Confirmed 06/09/24] [...] 01/04/24 [History Confirmed 06/09/24] lancets 30 gauge (AvantCreditTouch Delica Plus Lancet) #100 ea 01/04/24 [History Confirmed 06/09/24] diphenhydramine HCl 25 mg capsule (Benadryl) 25 mg PO TID PRN 01/14/24 [History Confirmed 06/09/24] acetaminophen 325 mg tablet (Tylenol) 650 mg PO TID PRN 01/17/24 [History Confirmed 06/09/24] blood-glucose sensor (UrbanTakeoverStyle Violeta 3 Sensor device) #6 ea 02/24/24 [Rx [...] Interpretations EKG EKG results cardiology: sinus rhythm CA, pacemaker, normal Myocardial infarction: anterior CA (acute or recent) A&P - Cardiology (1) ST elevation myocardial infarction (STEMI) of anterior wall: Code(s): I21.09 - ST elevation (STEMI) myocardial infarction involving other coronary artery of anterior wall (2) CAD (coronary artery disease): Qualifiers: Coronary Disease-Associated Artery/Lesion type: ton[place]anda artery [place] vs. transplanted heart: nativeheart Code(s): I25.10 - Atherosclerotic heart disease of tonawanda coronary artery without angina pectoris (3) Diabetes: [...] signed by Roberto Carlos Mcdermott DO> 06/29/24 0328 [facility] Work Phone: 1(675) 541-257708-22-2024 Procedure [facility]08-22-2024 Procedure [facility]03-20-2024 History of Present illness Narrative* David Hayward MD - 01/26/2024 1:00 PM EDT [...] 3 Assessment/Plan 1. Coronary artery disease involving tonawanda coronary artery of tonawanda heart without angina pectoris Patient has not [...] Attestation By signing my name below, I, Rain Medardo MERIDA, Scribe attest that this documentation has been [...] exam, discussion and plan. documented in this encounterPro[facility] Work Phone: 1([phone]) 695-465603-20-2024 Instructions* Patient Instructions* Rain Michaud LPN - [...] Fall Prevention Education Given. documented in this encounterPro[facility] Work Phone: 1([phone]) 493-151402-07-2024 Evaluation note* Encounter Date Diagnosis Assessment Notes Treatment Notes Treatment Clinical Notes Dec, Type 2 diabetes scott itus with hyperglycemia, without long-term current use of insulin (ICD-10 - E11.65) Heidi and her Khpbwsyq-mj-Pdi, Dee came in today for download and evaluation of her Violeta report. Heidi's average BG was 194, GMi 8.0%, Time in range 44%, high 39%, very high 17%, and 0% low. Heidi is afraid to use the Humalog Corrective scale and her DIL said that it is too complex. We discussed this at length and went over multiple examples. Heidi had trouble openning her Violeta Diana but otherwise was able to select a dose without issue. She was encouraged to use it as needed. Dee asked at what BG level does she have to use the scale. I pointed out that it starts at >150 but if they are not comfortable with this starting point then they should at least try to use it if Heidi'sBG is >200 or 250 if they are [...] the patient's report, discussing its findings and makingmedication changes by Florence Rose RN, [facility]. Dec,OtherScNorma tamayo 12/15/2023 04:31:21 PM > noted while patient on site, documentation reviewed [employer] Other 01-11-2024 Evaluation note* Encounter Date Diagnosis Assessment Notes Treatment Notes Treatment Clinical Notes Nov, Type 2 diabetes scott itus with hyperglycemia, without long-term current use of insulin (ICD-10 - E11.65) 1. Uncontrolled, a Type 2 diabetes with A1c of 9.8%, GMI implies improvement at 6.0% 2. Improved control with glycemia today, looking for decreased complexity of regime, hopeful to getto once daily injections. We will maintain Lantus at 25 units once daily, instructed to hold a.m. dose the day of PET scan intake after. We will maintain Humalog 1 unit for every 50 mg/dL above goal.Written instructions were given, avoid insulin to carb ratio for simplicity. We discussed carb conscious at dinner the night before PET scan, treating blood sugar with ISS and 1/ at HS. If at bedtimeblood sugar within normal limits expect a.m. 815 [...] diabetes, progressive beta cell , concepts of basal/bolus/corrective insulin requirements. b. Nutrition: Concepts of healthy [...] or sores that do not appear to behealing. 4. Meter: Plan to check blood glucose: Please check blood glucose levels 1-4 times/day. Back to back meals reveal effectiveness of bolus dosing. 5. [facility]. Contact office if any issues or concerns with patterns of hypoglycemia, hyperglycemia, or diabetes medication issues. 6. Prescriptions: 11-18-2023 uses [facility] Nov,Vitamin D deficiency (ICD-10 - E55.9)Interval surveillance Nov,Hyperlipidemia, unspecified hyperlipidemia type (ICD-10 - E78.5) Consider due to ADA guidelines Nov,Hypertension, unspecified type (ICD-10 - I10)Discussed goal less than 130/80 Nov,ietary counseling and surveillance (ICD-10 - Z71.3) Nov,MI 26.0-26.9,adult (ICD-10 - Z68.26) Nov,OtherI have spent 30 minutes with this patient and over 50% of the visit was counseling done by myself, Tova BECKETT. [employer] Other 01-09-2024 Evaluation note* Encounter Date Diagnosis Assessment Notes Treatment Notes Treatment Clinical Notes Nov, Closed fracture of n michele of right femur with routine healing, subsequent encounter (ICD-10 - S72.001D) Radiographs reviewed with patient and company. He is progressing well from the surgery. In regards to the skin break down on the lower extremity, instructed on importance of elevation of the leg to decrease swelling. Also instructed on regular motion of the foot and ankle to keep good blood flow tothe area for healing. Keep area of skin injury clean, cover as needed with nonstick dressing but also leave open to air when able. Monitor for signs and symptoms of infection. Continue gentle motion and strengthening exercises with the hip. Call with questions/concerns. Nov,History of right hip hemiarthroplasty (ICD-10 - Z96.641) [employer] Other 01-02-2024 Evaluation note* Encounter Date Diagnosis Assessment Notes Treatment Notes Treatment Clinical Notes Nov, Insomnia, unspecified type (ICD- 10 - G47.00) Pt denies oversedation with this med. She understands it increases her risk for falls, but she has been on it for some time. Nov,Type 2 diabetes mellitus with hyperglycemia, without long-term current use of insulin (ICD-10 - E11.65)Appt w diabetes clinic on 11/22 - daughter will call and try to move it up Nov,Hypertension, unspecified type (ICD-10 - I10)Chronic and stable Nov,losed fracture of right hip, initial encounter (ICD-10 - S72.001A) Discussed followup next week She has not heard from . Discussed holiday etc Nov,Healing decubitus ulcer, stage 1 (ICD-10 - L89.91)request to monitor [employer] Other 12-07-2023 Progress note Author Chin Rodarte [facility] October 14, 2023 12:34pmNote Date/TimeDecember 2022 12:[address] [address] Hospitalist Progress Note Signed Patient: Heidi Palmer MR#: [id number] : 1940 Acct:[id number] Age/Sex: 83 / F Adm Date: 3 Loc: Room: [address] [place] [address] Type: ADM IN Attending Dr: Chin Rodarte [...] Dose Route Start Last Admin Trade Name Casie PRN Reason Stop Dose Admin Acetaminophen 650 [...] signed by Chin Rodarte MD> 10/14/23 1234 [facility] Work Phone: 1(685) 893-499012-06-2023 Consult note Author Last Boston [facility] October 13, 2023 2:52pmNote Date/TimeD2022 1:18pmJeffery V[place] [id number] Physiatry (Rehab) Consult Note Signed Patient: Heidi Palmer MR#: [id number] : 1940 Acct:[id number] Age/Sex: 83 / F Adm Date: 3 Loc: Room: 4K4902-3 Type: ADM IN Attending Dr: Chin Rodarte MD Copies to: MD Last Hernandes MD Marcia E Braun, MD~ HPI Consult Date: 10/13/23 Requesting Physician: Chin Rodarte MD Primary Care Provider: Mica oHok MD Consult Narrative Reason for consult: Evaluation [...] negative unless noted below or in HPI [facility] Medical History Abnormal breast biopsy Breast [...] release(part/cryst) (Klor-Con M) 10 meq PO DAILY 10/11/23[History Confirmed 10/11/23] propranolol 160 mg capsule,24 hr,extended [...] MPV Neut % (Auto) Lymph % (Auto) [place] % (Auto) Eos % (Auto) Baso % (Auto) Nucleat RBC Rel Count Neut # (Auto) Lymph # (Auto) [place] # (Auto) Eos # (Auto) Baso # [...] Turbid A Urine pH 5.5 Ur Specific [place] 1.031 H Urine Protein 300 H Urine [...] MPV Neut % (Auto) Lymph % (Auto) [place] % (Auto) Eos % (Auto) Baso % (Auto) Nucleat RBC Rel Count Neut # (Auto) Lymph # (Auto) [place] # (Auto) Eos # (Auto) Baso # (Auto) Lymphocytes % Monocytes % Segmented Neutrophils Reactive Lymphocytes Platelet Estimate Giant Platelets Plt Morphology Comment RBC Morphology Polychromasia PHA Creatinine Clear Sodium Potassium Chloride Carbon Dioxide Anion Gap BUN Creatinine Est GFR (CKD-EPI) Glucose POC Glucose 151 236 299 POC Glucose Comment Glu2: cleaned meter Calcium Urine Color Urine Appearance Urine pH Ur Specific [place] Urine Protein Urine Glucose (UA) Urine Ketones [...] % (Auto) N/A Lymph % (Auto) N/A [place] % (Auto) N/A Eos % (Auto) N/A Baso % (Auto) N/A Nucleat RBC Rel Count N/A Neut # (Auto) N/A Lymph # (Auto) N/A [place] # (Auto) N/A Eos # (Auto) N/A [...] Color Urine Appearance Urine pH Ur Specific [place] Urine Protein Urine Glucose (UA) Urine Ketones Urine Occult Blood Urine Nitrite Urine Bilirubin Urine Urobilinogen Ur Leukocyte Esterase Urine RBC Urine WBC Ur Squamous Epith Cells Urine Bacteria Hyaline Casts Additional Results Results Comment: I reviewed clinical lab tests, radiology reports and obtained and summated medical records and haveordered follow up lab tests and imaging studies [...] Code(s): I25.10 - Atherosclerotic heart disease of tonawanda coronary artery without angina pectoris Status: Acute [...] heme-onc with plan for outpatientPET CT and biopsyof the RUL as well as tumor markers. The patient is noted to increased blood glucose on labs and isstill requiring IV demerol. Prior to admission to the rehab unit patient will need to be off IV pain medications for at least 24 hours. Thank you for this consult. Plan: I completed a substantive portion of this encounter, the medical decision makingportion of this note in its entirety, including Allied health note review, nursing note review, solutions sales consultant note review,discussion with nursing and case management, and more than 50% of my time was spent on counseling and coordination of care, time spent 40 minutes Patient was personally seen by me, Dr. Boston, on the day of encounter, reviewed the history and the relevant portions of the chart, including current orders, allied health and solutions sales consultant notes, labs/imaging and performed crews elements of exam and I formulated the plan of care and facilitated the medical decision making. Documented By: Last Boston MD 1245 Signed By: <Electronically signed by Last Boston MD> 10/13/23 1452 [facility] Work Phone: 1(222) 588-691912-06-2023 Progress note Author Chin Rodarte [facility] October 13, 2023 11:53amNote Date/TimeDece2022 11:53am[place] [address] Hospitalist Progress Note Signed Patient: Heidi Palmer MR#: [id number] : 1940 Acct:[id number] Age/Sex: 83 / F Adm Date: 3 Loc: Room: [address] [place] [address] Type: ADM IN Attending Dr: Chin Rodarte [...] Lactated Ringers IV 10/11/24 14:59 75 mls/hr .[id number] ILIANA Administration Levofloxacin 500 mg in 100 [...] 1148 Signed By: <Electronically signed by Chin Rodaret MD> 10/13/23 1155 [facility] [facility] Work Phone: 1(688) 818-329712-06-2023 Consult note Author [facility] October 13, 2023 10:49amNote Date/TimeDece2022 10:37[place] [id number] Hem/Onc Consult Note - IP Signed Patient: Heidi Palmer MR#: [id number] : 1940 Acct:[id number] Age/Sex: 83 / F Adm Date: 3 Loc: Room: [address] [place] [address] Type: ADM IN Attending Dr: Chin Rodarte [...] reduction and internal fixation on 10/12/2023here at [facility] by orthopedic surgery. As part of the fall evaluation she had a CT of head neck chest x-rays of the bones in addition to the femoralshe was found to have bilateral noncalcified lung nodules the largest of which is in the right upper lung. CAT scan of the chest was done on 10/11/2023 revealed the largest mass in the right upper lung 3.1 cm cannot rule out metastatic disease versus infections. For therefore oncology was consulted f or further recommendations. As of 10/13/2023 morning when I saw her she was toolethargic little bit not very good historian but she stated that she had a left breast surgery probably at [facility] about 3035 years ago and she [...] close by. The daughter Lyubov lives in [place]. Patient has not seen oncologist to her [...] masslike areas of consolidation are noted bilaterally. Thelargest in the right upper lobe measures 3.1 cm in greatest dimension. The largest in the left lower lobe measures 1 cm in greatestdimension. The largest in the left upper lobe measures 1.8 cm in grea test dimension. These are suspicious for malignancy given [...] dizziness or focal weakness or sensory changes. Howevershe is mildly lethargic still from recent surgery doneon 10/12/2023. [facility] - Medical History Medical History: Medical [...] release(part/cryst) (Klor-Con M) 10 meq PO DAILY 10/11/23[History Confirmed 10/11/23] propranolol 160 mg capsule,24 hr,extended [...] BUN 20, Creatinine 0.77 D, Est GFR (CKD-EPI) > 60.0, Glucose 339 H, Calcium 9.5 [...] Turbid A, Urine pH 5.5, Ur Specific [place] 1.031 H, Urine Protein 300 H, Urine [...] masslike areas of consolidation are noted bilaterally. Thelargest in the right upper lobe measures 3.1 cm in greatest dimension. The largest in the left lower lobe measures 1 cm in greatestdimension. The largest in the left upper lobe measures 1.8 cm in grea test dimension. These are suspicious for malignancy given [...] and biopsy as well. I talked to thedaughter that we need to schedule her with [...] outpatient. She can be discharged from hematology oncologystandpoint anytime the other servicesorthopedic and primary hospitalist team that the patient is appropriate to be discharged needs to follow-up with me at the [facility] within the next2 to 4 weeks (2) Closed subcapital fracture [...] remember exactly the details of the type ofthe breast cancer. No history of recurrent of this left breast cancer but per daughter that she hadhemithyroidectomy which she is not aware that it was cancer. - Time Spent with Patient Total Time Spent with Patient: 55 min Greater than 50% of time spent with patient was for coordination of care (as documented) and [id number] counseling of patient and/or family. Documented By: Tosha Patel MD 10/13/23 1035 Signed By: <Electronically signed by Tosha Patel MD> 10/13/23 1049 [facility] Work Phone: 1(103) 843-779912-06-2023 Progress note Author Epi Booth [facility] October 13, 2023 7:08amNote Date/TimeDece2022 6:47[place] [address] Orthopedic Progress Note Signed Patient: Heidi Palmer MR#: [id number] : 1940 Acct:[id number] Age/Sex: 83 / F Adm Date: 3 Loc: Room: [address] [place] [address] Type: ADM IN Attending Dr: Chin Rodarte [...] % (Auto) 75.5 Lymph % (Auto) 12.5 [place] % (Auto) 9.7 Eos % (Auto) 1.1 Baso % (Auto) 1.2 Nucleat RBC Rel Count 0.0 Neut # (Auto) 9.9 H Lymph # (Auto) 1.6 [place] # (Auto) 1.3 H Eos # (Auto) [...] Color Urine Appearance Urine pH Ur Specific [place] Urine Protein Urine Glucose (UA) Urine Ketones Urine Occult Blood Urine Nitrite Urine Bilirubin Urine Urobilinogen Ur Leukocyte Esterase Urine RBC Urine WBC Ur Squamous Epith Cells Urine Bacteria Hyaline Casts 10/12/23 10/12/23 10/12/23 10:58 11:47 13:05 Corrected WBC Uncorrected WBC Count RBC Hgb Hct MCV MCH MCHC RDW Plt Count MPV Neut % (Auto) Lymph % (Auto) [place] % (Auto) Eos % (Auto) Baso % (Auto) Nucleat RBC Rel Count Neut # (Auto) Lymph # (Auto) [place] # (Auto) Eos # (Auto) Baso # (Auto) PHA Creatinine Clear Sodium Potassium Chloride Carbon Dioxide Anion Gap BUN Creatinine Est GFR (CKD-EPI) Glucose POC Glucose 278 252 197 POC Glucose Comment Calcium Urine Color Urine Appearance Urine pH Ur Specific [place] Urine Protein Urine Glucose (UA) Urine Ketones Urine Occult Blood Urine Nitrite Urine Bilirubin Urine Urobilinogen Ur Leukocyte Esterase Urine RBC Urine WBC Ur Squamous Epith Cells Urine Bacteria Hyaline Casts 10/12/23 10/12/23 10/12/23 14:51 16:10 16:37 Corrected WBC Uncorrected WBC Count RBC Hgb Hct MCV MCH MCHC RDW Plt Count MPV Neut % (Auto) Lymph % (Auto) [place] % (Auto) Eos % (Auto) Baso % (Auto) Nucleat RBC Rel Count Neut # (Auto) Lymph # (Auto) [place] # (Auto) Eos # (Auto) Baso # (Auto) PHA Creatinine Clear Sodium Potassium Chloride Carbon Dioxide Anion Gap BUN Creatinine Est GFR (CKD-EPI) Glucose POC Glucose 207 151 POC Glucose Comment Glu2: cleaned meter Glu2: cleaned meter Calcium Urine Color Dark yellow A Urine Appearance Turbid A Urine pH 5.5 Ur Specific [place] 1.031 H Urine Protein 300 H Urine [...] MPV Neut % (Auto) Lymph % (Auto) [place] % (Auto) Eos % (Auto) Baso % (Auto) Nucleat RBC Rel Count Neut # (Auto) Lymph # (Auto) [place] # (Auto) Eos # (Auto) Baso # (Auto) PHA Creatinine Clear Sodium Potassium Chloride Carbon Dioxide Anion Gap BUN Creatinine Est GFR (CKD-EPI) Glucose POC Glucose 236 POC Glucose Comment Calcium Urine Color Urine Appearance Urine pH Ur Specific [place] Urine Protein Urine Glucose (UA) Urine Ketones [...] Code(s): I25.10 - Atherosclerotic heart disease of [place] coronary artery without angina pectoris Status: Acute Documented By: Epi Booth MD 10/13/23 0645 Signed By: <Electronically signed by MD Epi Booth> 10/13/23 0708 [facility] Work Phone: 1(329) 717-855712-06-2023 Consult note Author Epi Booth [facility] October 13, 2023 6:54amNote Date/TimeDece2022 7:25[place] [address] Orthopedic Consult Note Signed Patient: Heidi Palmer MR#: [id number] : 1940 Acct:[id number] Age/Sex: 83 / F Adm Date: 3 Loc: Room: [address] [place] [address] Type: ADM IN Attending Dr: Chin Rodarte [...] neck fracture. She will be admitted for definitivetreatment Review of Systems Review of Systems All other systems reviewed & are negative unless noted below or in HPI [facility] Medical History (Updated 10/11/23 @ 17:36 by Annie Carrera, RN) Abnormal breast biopsy Breast cancer CAD (coronary artery disease) Diabetes DJD (degenerative joint disease) Hyperlipidemia Hypothyroid Lump of right breast Surgical History (Updated 10/11/23 @ 17:36 by Annie Carrera, RN) [...] release(part/cryst) (Klor-Con M) 10 meq PO DAILY 10/11/23[History Confirmed 10/11/23] propranolol 160 mg capsule,24 hr,extended [...] 133 L, Potassium 4.5, Chloride 100, Carbon Xyszduk17.4, Anion Gap 10.1, BUN 11, Creatinine 0.77, Est GFR (CKD- EPI) > 60.0, Glucose 418 H, Calcium 9.5 10/11/23 13:43: PT 12.3, INR 1.0, APTT 32.0 10/11/23 13:43: Corrected WBC 10.1, Uncorrected WBC Count 10.1, RBC 4.87, Hgb 14.8, Hct 44.1, MCV 90.5, MCH 30.4, MCHC 33.6, RDW 14.2, Plt Count 323, MPV 8.4,Neut % (Auto) 67.6, Lymph % (Auto) 21.3, [place] % (Auto) 8.4, Eos % (Auto) 1.7, Baso % (Auto) 1.0, Nucleat RBC Rel Count 0.1, Neut # (Auto) 6.9, Lymph # (Auto) 2.2, [place] # (Auto) 0.8, Eos # (Auto) 0.2, [...] Code(s): I25.10 - Atherosclerotic heart disease of [place] coronary artery without angina pectoris Documented By: Epi Booth MD 10/12/23 0723 Signed By: <Electronically signed by MD Epi Booth> 10/13/23 0654 [facility] Work Phone: 1(678) 434-874412-05-2023 Hospital Discharge instructions Additional Instructions REHAB TO MANAGE: PT/OT to eval and treat Monitor VS per protocol Monitor FSBS per protocol Monitor Ortho. assessment--Right hip fracture s/p hemiarthroplasty on 10/12/23 Please follow Ortho. instructions: *Weightbearing as tolerated *Hematite out 14 days postop *Repeat hip x-rays in 14 days, have these sent to Dr. Booth Maintain high risk fall precautions Care to be managed [facility] Work Phone: [phone]) 587-858312-05-2023 Progress note Author Chin Rodarte [facility] October 12, 2023 11:21amNote Date/TimeDece2022 11:21[place] [address] Hospitalist Progress Note Signed Patient: Heidi Palmer MR#: [id number] : 1940 Acct:[id number] Age/Sex: 83 / F Adm Date: 3 Loc: Room: [address] [place] [address] Type: ADM IN Attending Dr: Chin Rodarte [...] 80 Mg Tablet PO 10/10/24 21:59 QHS [facility] Bisacodyl 10 mg 10/11/23 16:47 Bisacodyl 5 Mg Tablet. PO 10/10/24 16:46 DAILY PRN Constipation Cyclosporine 1 drops 10/11/23 17:00 Cyclosporine 0.05% Op Emulsion 1 Drops (0.4 Ml Droperette) EYE-BOTH 10/10/2416:59 Q12H [facility] Docusate Sodium 100 mg 10/11/23 16:47 [...] Ml Pen.Injctr SUBCUT 10/11/24 08:59 DAILY ILIANA Lisinopril 5 mg 10/12/23 09:00 10/12/23 10:55 Lisinopril 5 Mg Tablet PO 10/11/24 08:59 Not Given DAILY ILIANA Melatonin 5 mg 10/11/23 16:47 [...] signed by Chin Rodarte MD> 10/12/23 1121 [facility] Work Phone: 1(173) 803-942212-04-2023 History and physical note Author Chin Rodarte [facility] October 11, 2023 4:46pmNote Date/TimeDece2022 4:13pmJeffery [place] [id number] Hospitalist H&P Signed Patient: Heidi Palmer MR#: [id number] : 1940 Acct:[id number] Age/Sex: 83 / F Adm Date: 3 Loc: Room: [address] [place] [address] Type: ADM IN Attending Dr: Chin Rodarte [...] negative unless noted below or in HPI [facility] Medical History (Updated 10/11/23 @ 16:39 [...] release(part/cryst) (Klor-Con M) 10 meq PO DAILY 10/11/23[History Confirmed 10/11/23] propranolol 160 mg capsule,24 hr,extended [...] % (Auto) 21.3 % (.) 10/11/23 13:43 [place] % (Auto) 8.4 % (.) 10/11/23 13:43 Eos % (Auto) 1.7 % (.) 10/11/23 13:43 Baso % (Auto) 1.0 % (.) 10/11/23 13:43 Nucleat RBC Rel Count 0.1 /100 WBC (0-0.5) 10/11/23 13:43 Neut # (Auto) 6.9 x10E3/uL (1.8-7.7) 10/11/23 13:43 Lymph # (Auto) 2.2 x10E3/uL (1.00-4.8) 10/11/23 13:43 [place] # (Auto) 0.8 x10E3/uL (0.0-0.8) 10/11/23 13:43 [...] setting as: INPATIENT because of an expectation ofan over 2 midnight stay. Estimated length of stay (# of days): 3 Documented By: Chin Rodarte MD 10/11/23 1603 Signed By: <Electronically signed by Chin Rodarte MD> 10/11/23 9159 [facility] Work Phone: 1(246) 124-567512-04-2023 Evaluation note* Encounter Date Diagnosis Assessment Notes Treatment Notes Treatment Clinical Notes Oct, Type 2 diabetes scott itus with hyperglycemia, without long-term current use of insulin (ICD-10 - E11.65) Pt here for appointment today with sister, agreeable to wear a Violeta 3 sample. Violeta training discussed, instructed on use and application on personal [employer] phone. Patient cleansed posterior side of right upper arm with alcohol then Skin Tac, applied first Violeta 3 sensor sample. Adhesive also applied for extra security. Reviewed with patient testing glucose with Violeta ac, hs explained how to enter insulin dosing/carbs/notes into Violeta application. Reviewed with patient no more than 500mg of Vitamin C per day, which can falsely elevate CGM glucose results. Need for confirmatory glucose fingerstick if not feeling well or if prompted to. Encouraged patient to check glucose 4xday, before meals/bedtime and to fingerstick when not wearing CGM. Discussed S/S of hypoglycemia/hyperglycemia and treatment options. All questions and concerns addressed. Insulin training also completed. Tresiba sample provided, pt was able to provide return demonstration well. Pt administered 10 units of Tresiba to her lower right abdomen without issues. Instructed patient to return for scheduled follow up appointment in 2 weeks with RN staff educator and in 6 weeks with provider. 45 minutes was spent on education by Medardo ZAMBRANO, JANETH 1. Uncontrolled, a Type 2 diabetes with A1c of 9.7% (per PCP 03-22-2023) 2. Blood glucose levels above goal as evidenced by hemoglobin A1c. We will start her on Tresiba 10 units once daily, she has been placed CGM to help with blood glucose regulation. She knows that onceweekly she should consider escalation of fasting blood [...] diabetes, progressive beta cell , concepts of basal/bolus/corrective insulin requirements. b. Nutrition: Concepts of healthy [...] or sores that do not appear to behealing. 4. Meter: Plan to check blood glucose: Please check blood glucose levels 1-4 times/day. Back to back meals reveal effectiveness of bolus dosing. 5. [facility]. Contact office if any issues or concerns with patterns of hypoglycemia, hyperglycemia, or diabetes medication issues. 6. Prescriptions: New patient 10-11-2023 uses [facility] Oct,Vitamin D deficiency (ICD-10 - E55.9)Interval surveillance Oct,Hyperlipidemia, unspecified hyperlipidemia type (ICD-10 - E78.5) Consider due to ADA guidelines Oct,Hypertension, unspecified type (ICD-10 - I10)Discussed goal less than 130/80 Oct,ietary counseling and surveillance (ICD-10 - Z71.3) Oct,MI 25.0-25.9,adult (ICD-10 - Z68.25) Oct,OtherI have spent 60 minutes with this patient and over 50% of the visit was counseling done by myself, Tova BECKETT.Of note, subsequent to our appointment here patient had mechanical fall in the parking lot. She was[facility] to [facility] emergency room with hip pain and treated [employer] Other 11-30-2023 Evaluation note* Encounter Date Diagnosis Assessment Notes Treatment Notes Treatment Clinical Notes Sep, Acute non-recurrent maxillary si nusitis (ICD-10 - J01.00) Pt declines to come to office for in-person visit. She declines the offer to get a CXR. She requests rx to [facility]. She understands that she may need to go to ER again or come to office if symptoms worsen. [employer] Other 10-12-2023 Evaluation note* Encounter Date Diagnosis Assessment Notes Treatment Notes Treatment Clinical Notes Aug, Insomnia, unspecified type (ICD- 10 - G47.00) [employer] Other 09-11-2023 Evaluation note* Encounter Date Diagnosis Assessment Notes Treatment Notes Treatment Clinical Notes Jul, Type 2 diabetes scott itus with hyperglycemia, without long-term current use of insulin (ICD-10 - E11.65) Dicussed A1C - will increase dose for improved control/A1C reading Jul,UTI symptoms (ICD-10 - R39.9)Reviewed UA, will treat patient for UTI today. Instructed patient to take antibiotic as prescribed,take with food, complete entire course of therapy even if feeling better. Allergies and recent antibiotic use was reviewed with patient. Pt to take pyridium as prescribed for urinary discomfort, advised patient that it will turn urine orange, explained to patient the importance of not taking longerthen 2 days. Advised patient urine culture was sent today and we will call with her results if antibiotic needs changed. Patient instructed to push fluids. Patient symptoms should improve in the ujdv32-63 hours, Immediate eval by ER if back or flank pain, blood in urine, fever, chills, N/V, or anyother concerning symptoms. Patient verbalizes understanding and is agreeable to treatment plan. Jul,Thyromegaly (ICD-10 - E01.0)Will proceed w US - discussed w pt. Jul,Insomnia, unspecified type (ICD-10 - G47.00)Chronic, stable - requests refill. Denies oversedation. [employer] Other 08-14-2023 Evaluation note* Encounter Date Diagnosis Assessment Notes Treatment Notes Treatment Clinical Notes Jun, Left-sided chest pain (ICD-10 - R07.9) I will notify her coffee blender of this recent event and forward EKG to him. 14 Jun, 2023Type 2 diabetes mellitus with hyperglycemia, without long-term current use of insulin (ICD-10 - E11.65)Due for labs. Samples of Jardiance 25mg #28 given to pt. 14 Jun, 2023Left carotid bruit (ICD-10 - R09.89)Will assess for stroke risk factors due to recent facial weakness. 14 Jun, 2023UTI symptoms (ICD-10 - R39.9)UA CS at hospital. [employer] Other 04-12-2023 Evaluation note* Encounter Date Diagnosis Assessment Notes Treatment Notes Treatment Clinical Notes Feb, Insomnia, unspecified type (ICD- 10 - G47.00) [employer] Other 04-11-2023 Evaluation note* Encounter Date Diagnosis Assessment Notes Treatment Notes Treatment Clinical Notes Feb, Fracture of unspecif ied phalanx of left little finger, subsequent encounter for fracture with routine healing (ICD-10 - S62.607D) Feb,Nondisplaced fracture of neck of left radius, subsequent encounter for closed fracture with routinehealing (ICD-10 - S52.135D)Radiographs reviewed with patient today. Discussed with patient she can discontinue elbow and finger brace. Discussed with patient she can progress activity as tolerated. Discussed to continue to work on strength and range of motion exercises to avoid stiffness. Feb,ontusion of left index finger without damage to nail, subsequent encounter (ICD-10 - S60.022D) [employer] Other 03-01-2023 Evaluation note* Encounter Date Diagnosis Assessment Notes Treatment Notes Treatment Clinical Notes Jan, Fracture of unspecif ied phalanx of left little finger, subsequent encounter for fracture with routine healing (ICD-10 - S62.607D) New stack splint provided today as previous was too big now that swelling has decreased. Jan,Nondisplaced fracture of neck of left radius, subsequent encounter for closed fracture with routinehealing (ICD-10 - S52.135D)Radiographs reviewed with patient. She is progressing well at this time. May wear elbow splint witho ut limitations of flexion/extension, or may wear just sling if that is more comfortable. Progress with formal therapy as scheduled. Call with questions/concerns. Jan, ontusion of left index finger without damage to nail, subsequent encounter (ICD-10 - S60.022D) [employer] Other 02-14-2023 Evaluation note* Encounter Date Diagnosis [...] elevate to decrease pain and swelling. We willfollow up in 2-3 weeks time for recheck. Patient voiced understanding and states no further questions. Dec,ontusion of left index finger without damage to nail, initial encounter (ICD-10 - S60.022A) Dec,losed nondisplaced fracture of neck of left radius, initial encounter (ICD-10 - S52.135A)The patient has suffered a minimally displaced radial head fracture. This fracture appears stable and we will treat this non- operatively. 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 Patient is in need ofa hinged elbow brace due to their diagnosis of left radial head fracture. This is needed for aid inactivities of daily living by increasing safety and stability. This will be needed for approximately life time. Order for physical therapy sent in for patient. [employer] Other 02-10-2023 NotePROCEDURE: XR HUMERUS LT MIN [...] Electronically authenticated by: GRADY PARKER Date: 2022-12-18 13:45[facility]02-10-2023 NotePROCEDURE: XR HUMERUS LT MIN 2V, [...] Electronically authenticated by: GRADY PARKER Date: 2022-12-18 13:45[facility]02-10-2023 NotePROCEDURE: XR HUMERUS LT MIN 2V, [...] Electronically authenticated by: GRADY PARKER Date: 2022-12-18 13:45[facility]01-16-2023 Evaluation note* Encounter Date Diagnosis Assessment Notes Treatment Notes Treatment Clinical Notes Nov, Hypertension (ICD-10 - I10) stable continue present meds Nov,Hypokalemia (ICD-10 - E87.6)recheck with labs. chronic issue Nov,Urinary frequency (ICD-10 - R35.0)will check urine culture - treated with cipro after the office visit due to + urine culture. Nov,Type 2 diabetes mellitus with hyperglycemia, without long-term current use of insulin (ICD-10 - E11.65)will check labs and assess stablility at this time. [employer] Other Chief complaint+Reason for visit Narrative* Chief Complaint Referral Mica warren Hip pain right femoral neck fx s/p giana-arthroplasty [facility] Z96.641 Dm DM Lung MassReason for VisitCAD (coronary artery disease) Closed subcapital fracture of [...] of thyroid surgery Mass of right lung [facility] Work Phone: Chief complaint+Reason for visit Narrative* Chief Complaint Referral Mica warren Hip pain right femoral neck fx s/p giana-arthroplasty [facility] Z96.641 Dm Lung Mass DM Amb DocumentationReason for VisitCAD (coronary artery disease) Closed subcapital fracture of [...] of thyroid surgery Mass of right lung [facility] Work Phone: Discharge summary Author Chin Rodarte [facility] October 15, 2023 12:16pmNote Date/TimeDece2022 12:16pm[address] [address] Discharge Summary Signed Patient: Heidi Palmer MR#: [id number] : 1940 Acct:[id number] Age/Sex: 83 / F Adm Date: 3 Loc: Room: [address] [place] [address]: Chin Rodarte MD Copies to: [...] By: <Electronically signed by Chin Rodarte MD> 10/15/231215 [facility] Work Phone: Discharge summary Author Roberto Carlos Mcdermott [facility] June 30, 2024 2:13pmNote Date/TimeAugust 2023 2:13pm[address] [address] Discharge Summary Signed Patient: Heidi Palmer MR#: [id number] : 1940 Acct:[id number] Age/Sex: 84 / F Adm Date: 4 Loc: Room: [address] [place] [address]: Roberto Carlos Mcdermott DO Copies [...] [address] elevation CA and underwent rapid revascularization of the mid LAD and distal RCA x 4 drug- elutingstents, due to subacute stent thrombosis in both [...] cataract surgery other than she needs to continueDAPT Condition Condition at Discharge: Stable Status at Discharge Functional status at discharge: independent ambulation Overall status at discharge: patient is back to baseline Time Spent with Patient Time spent providing/coordinating discharge services (# min): 30 Surgeries and Procedures Operation Date: 06/29/24 03:00 Actual Procedures p CL LHC & COR Angio - W Kranthi Baldemar, DO p CL PCI AMI 1st Vessel [...] stent occurs in the first 2-3 weeks afterimplantation, you will need to take anticoagulants for at least 12-18 months. ANTICOAGULATION MEDICATION Aspirin 81mg once a day, Ticagrelor (Brilinta) 90mg twice a day STATIN MEDICATION Atorvastatin (Lipitor) 80 mg Drug-Eluting Stent (MARIANELA) DO NOT discontinue Brilinta/Aspirin during the first few months regardless of what you are advised by your family doctor or pharmacist, without first calling the coffee blender who implanted the stent. If you require [...] weight lifting, stair steppers, etc. until the coffee blender approves these activities. Check with the coffee blender on your first follow-up visit. CALL YOUR MANAGER PROJECT MANAGEMENT: -If bleeding should occur from the catheter insertion site- apply pressure to the site then immediately call us. -Report any fever, redness, drainage, increased swelling, or firmness at the catheter insertion site. Some bruising or slight swelling may be present at thetime of discharge. -Should arm or leg become cold, numb, white, or blue, contact the coffee blender immediately. -IF you should experience episodes of angina, e.g. chest discomfort, heaviness, tightness, pressureburning with or without radiation to the neck, jaw, arms or back- use 1 Nitrostat tablet under yourtongue every 5-10 minutes and up to three tablets. IF NO RELIEF, CALL 911 or GO TO THE NEAREST EMERGENCY ROOM. -Please notify our office if you have recurrent angina. -Cardiac Rehab Education Provided. Participation in the Cardiopulmonary Rehabilitation program is recommended. The attending coffee blender or a nurse clinician should provide you with specificinstructions regarding activity, diet, medications, and further follow up for you. Follow the medication instructions provided on your discharge. If the dosages and instructions on this sheet differ from the dosage and instructions on the bottle, follow the instructions on the bottle. [facility] is not responsible for incorrect prescription information provided by thepatient during their visit. Do not stop your medications without consulting your health care provider. Please take the list with you to your next doctor's appointment. Instructions: Coronary Angioplasty (DC), Coronary Stenting (DC), Angina (DC), Chest Pain (DC), DrugEluting Stents, Know your Meds Prescriptions: New Brilinta [...] 30 Days Qty: 60 12RF Continued (DME) [employer] Violeta 3 Sensor Device See Rx Instructions miscellaneous [...] % (Auto) N/A, Lymph % (Auto) N/A, [place] % (Auto) N/A, Eos % (Auto) N/A, Baso % (Auto) N/A, Nucleat RBC Rel Count N/A, Neut # (Auto) N/A, Lymph # (Auto) N/A, [place] # (Auto) N/A, Eos # (Auto) N/A, Baso # (Auto) N/A, Band Neutrophils % 2, Lymphocytes % 9 L, Monocytes % 11, Eosinophils % 6 H, Metamyelocytes % 3 H, Segmented [id number], Reactive Lymphocytes 1, Platelet Estimate Normal, Plt Morphology Comment Normal, RBC MorphologyN/A, Poikilocytosis Slight, Anisocytosis Slight, Ovalocytes Slight, Schistocytes Slight, PHA Creatinine Clear 46.26, Sodium 132 L, Potassium 4.4, Chloride 101, Carbon Dioxide 25.9, Anion Gap 9.5, BUN13, Creatinine 0.68, Est GFR (CKD-EPI) > 60.0, Glucose 173 H, Calcium 8.9 06/29/24 15:07: Troponin I High Sens 47712.3 H* Documented By: Roberto Carlos Mcdermott DO 06/30/24 1409 Signed By: <Electronically signed by Roberto Carlos Mcdermott DO> 06/30/24 1413 [facility] Work Phone: evaluation noteNo InformationNort Ingenious Med Other Evaluation noteNo assessment information available [facility] Work Phone: evaluation note* Diagnosis Onset Date Resolution Status CAD (coronary artery disease) acuteClosed subcapital fracture of neck of right femuracuteDiabetesacuteFall acuteHyperlipidemiaacuteHypothyroidacute [facility] Work Phone: evaluuyboo note* Diagnosis Onset Date Resolution Status CAD (coronary artery disease) acuteClosed subcapital fracture of neck of right femuracuteDiabetesacuteFall acuteHistory of left breast canceracuteHyperlipidemiaacuteHypothyroidacute Impaired mobility and activities of daily livingacuteLung massacutePostoperative painacute [facility] Work Phone: evaluation note* Diagnosis Onset Date Resolution Status CAD (coronary artery disease) acuteClosed subcapital fracture of neck of right femuracuteDiabetesacute HyperlipidemiaacuteHypothyroidacuteLung massacutePostoperative painacuteCAD (coronary artery disease)acuteClosed subcapital fracture of neck of right femur acuteCOVID-19acuteDiabetesacuteHyperlipidemiaacuteHypothyroidacuteLung massacute Postoperative painacuteYeast UTIresolved [facility] Work Phone: Evaluation note* Diagnosis Onset Date Resolution Status CAD (coronary artery disease) acuteClosed subcapital fracture of neck of right femuracuteDiabetesacute HyperlipidemiaacuteHypothyroidacuteLung massacutePostoperative painacuteCAD (coronary artery disease)acuteClosed subcapital fracture of neck of right femur acuteCOVID-19acuteDiabetesacuteHyperlipidemiaacuteHypothyroidacuteLung massacute Postoperative painacuteYeast UTIresolvedHistory of left breast canceracute History of thyroid surgeryacuteMass of right lungacuteHistory of left breast canceracuteHistory of thyroid surgeryacuteMass of right lungacute [facility] Work Phone: Evaluation note* Diagnosis Coronary artery disease involving [place] coronary artery of [place] heart without angina pectoris- Primary Essential hypertension, benign History of PTCA Postsurgical percutaneous transluminal coronary angioplasty status Mixed hyperlipidemia Edema, unspecified type Never smoked cigarettes documented in this encounter [facility] Work Phone: Evaluation note* Diagnosis Onset Date Resolution Status History of left breast cancer acuteHistory of thyroid surgeryacuteMass of right lungacuteHistory of left breast canceracuteHistory of thyroid surgeryacuteMass of right lungacute [id number] of right hip hemiarthroplastyacuteBMI 26.0-26.9,adultacuteDietary counseling and surveillanceacuteHyperlipidemiaacute HypertensionacuteType 2 diabetes mellitus with hyperglycemiaacute [facility] Work Phone: Evaluation note* Diagnosis Onset Date Resolution Status History of left breast cancer acuteHistory of thyroid surgeryacuteMass of right lungacuteHistory of left breast canceracuteHistory of thyroid surgeryacuteMass of right lungacute [id number] of right hip hemiarthroplastyacuteBMI 26.0-26.9,adultacuteDietary counseling and surveillanceacuteHyperlipidemiaacute HypertensionacuteType 2 diabetes mellitus with hyperglycemiaacuteCAD (coronary artery disease)acuteHistory of right hip hemiarthroplastyacuteInsomniaacuteType 2 diabetes mellitus with hyperglycemiaacute [facility] Work Phone: Evaluation note* Diagnosis Onset Date Resolution Status BMI 26.0-26.9,adult acuteDietary counseling and surveillanceacuteHyperlipidemiaacuteHypertension acuteType 2 diabetes mellitus with hyperglycemiaacuteCAD (coronary artery disease)acuteHistory of right hip hemiarthroplastyacuteInsomniaacuteType 2 diabetes mellitus with hyperglycemiaacuteBMI 26.0-26.9,adultacuteDietary counseling and surveillanceacuteHyperlipidemiaacuteHypertensionacuteType 2 diabetes mellitus with hyperglycemiaacute [facility] Work Phone: Evaluation note* Diagnosis Onset Date Resolution Status CAD (coronary artery disease) acuteHistory of right hip hemiarthroplastyacuteInsomniaacuteType 2 diabetes mellitus with hyperglycemiaacuteBMI 26.0-26.9,adultacuteDietary counseling and surveillanceacuteHyperlipidemiaacuteHypertensionacuteType 2 diabetes mellitus with hyperglycemiaacuteType 2 diabetes mellitus with hyperglycemiaacute [facility] Work Phone: Evaluation note* Diagnosis Onset Date Resolution Status Type 2 diabetes mellitus with hyperglyce carmen acuteBMI 26.0-26.9,adultacuteDietary counseling and surveillanceacute HyperlipidemiaacuteHypertensionacuteType 2 diabetes mellitus with hyperglycemia acute [facility] Work Phone: Evaluation note* Diagnosis Onset Date Resolution Status Type 2 diabetes mellitus with hyperglyce carmen acuteBMI 26.0-26.9,adultacuteDietary counseling and surveillanceacute HyperlipidemiaacuteHypertensionacuteType 2 diabetes mellitus with hyperglycemia acuteHistory of left breast canceracuteHistory of thyroid surgeryacuteMass of right lungacuteHistory of left breast canceracuteHistory of thyroid surgeryacute Mass of right lungacute [facility] Work Phone: Evaluation note* Diagnosis Onset Date Resolution Status Type 2 diabetes mellitus with hyperglyce carmen acuteBMI 26.0-26.9,adultacuteDietary counseling and surveillanceacute HyperlipidemiaacuteHypertensionacuteType 2 diabetes mellitus with hyperglycemia acuteHistory of left breast canceracuteHistory of thyroid surgeryacuteMass of right lungacuteHistory of left breast canceracuteHistory of thyroid surgeryacute Mass of right lungacuteCAD (coronary artery disease)acuteDiabetesacuteHistory of cardiac cathacuteHistory of left breast canceracuteHistory of thyroid surgery acuteHyperlipidemiaacuteST elevation myocardial infarction (STEMI) of anterior wallacute [facility] Work Phone: Evaluation note* Diagnosis Onset Date Resolution Status Type 2 diabetes mellitus with hyperglyce carmen acuteBMI 26.0-26.9,adultacuteDietary counseling and surveillanceacute HyperlipidemiaacuteHypertensionacuteType 2 diabetes mellitus with hyperglycemia acuteMass of right lungacuteMass of right lungacuteCAD (coronary artery disease) acuteDiabetesacuteHyperlipidemiaacuteType 2 diabetes mellitus with hyperglycemia acute [facility] Work Phone: Evaluation note* Diagnosis Onset Date Resolution Status BMI 26.0-26.9,adult acuteDietary counseling and surveillanceacuteHyperlipidemiaacuteHypertension acuteType 2 diabetes mellitus with hyperglycemiaacuteMass of right lungacuteMass of right lungacuteCAD (coronary artery disease)acuteDiabetesacuteHyperlipidemia acuteType 2 diabetes mellitus with hyperglycemiaacute [facility] Work Phone: Evaluation note* Diagnosis Onset Date Resolution Status CAD (coronary artery disease) acuteDiabetesacuteHyperlipidemiaacuteType 2 diabetes mellitus with hyperglycemia acute [facility] Work Phone: Evaluation note* Diagnosis Coronary artery disease involving [place] heart, unspecified vessel or lesion type, unspecified [...] ischemic cardiomyopathy (Multi) documented in this encounter [facility] Work Phone: Evaluation note* Diagnosis Cardiomyopathy, ischemic- Primary Other specified forms of chronic ischemic heart disease Coronary artery disease involving [place] heart, unspecified vessel or lesion type, unspecified whether angina present Essential hypertension, benign Hyperlipidemia, unspecified hyperlipidemia type Type 2 diabetes mellitus without complication, without long-term current use of insulin (Multi) Edema, unspecified type Coronary artery disease, unspecified vessel or lesion type, unspecified whether angina present, unspecified whether [place] or transplanted heart Dyspnea on exertion Other dyspnea and respiratory abnormality BMI 26.0-26.9,adult documented in this encounter [facility] Work Phone: Evaluation note* Diagnosis Cardiomyopathy, ischemic- Primary Other specified forms of chronic ischemic heart disease Coronary artery disease involving [place] heart, unspecified vessel or lesion type, unspecified whether angina present Essential hypertension, benign Hyperlipidemia, unspecified hyperlipidemia type Type 2 diabetes mellitus without complication, without long-term current use of insulin (Multi) Edema, unspecified type Coronary artery disease, unspecified vessel or lesion type, unspecified whether angina present, unspecified whether [place] or transplanted heart Dyspnea on exertion Other dyspnea and respiratory abnormality BMI 26.0-26.9,adult Edema, unspecified type- Primary Coronary artery disease involving [place] heart, unspecified vessel or lesion type, unspecified whether angina present Cardiomyopathy, ischemic Other specified forms of chronic ischemic heart disease Essential hypertension, benign Hyperlipidemia, unspecified hyperlipidemia type BMI 26.0-26.9,adult Localized swelling, mass and lump, left lower limb documented in this encounter [facility] Work Phone: Evaluation note* Diagnosis Age-related nuclear cataract of both eyes documented in this encounter [facility] HealthcareEvaluation note* Diagnosis Cardiomyopathy, ischemic- Primary Other specified forms of chronic ischemic heart disease Coronary artery disease involving [place] heart, unspecified vessel or lesion type, unspecified whether angina present Essential hypertension, benign Hyperlipidemia, unspecified hyperlipidemia type Type 2 diabetes mellitus without complication, without long-term current use of insulin Edema, unspecified type Coronary artery disease, unspecified vessel or lesion type, unspecified whether angina present, unspecified whether [place] or transplanted heart Dyspnea on exertion Other dyspnea and respiratory abnormality BMI 26.0-26.9,adult Edema, unspecified type- Primary Coronary artery disease involving [place] heart, unspecified vessel or lesion type, unspecified whether angina present Cardiomyopathy, ischemic Other specified forms of chronic ischemic heart disease Essential hypertension, benign Hyperlipidemia, unspecified hyperlipidemia type BMI 26.0-26.9,adult Localized swelling, mass and lump, left lower limb Edema, unspecified type- Primary Coronary artery disease involving [place] heart, unspecified vessel or lesion type, unspecified whether angina present Cardiomyopathy, ischemic Other specified forms of chronic ischemic heart disease BMI 26.0-26.9,adult Other cardiomyopathy documented in this encounter [facility] Work Phone: Evaluation note* Diagnosis Cardiomyopathy, ischemic- Primary Other specified forms of chronic ischemic heart disease Coronary artery disease involving [place] heart, unspecified vessel or lesion type, unspecified whether angina present Essential hypertension, benign Hyperlipidemia, unspecified hyperlipidemia type Type 2 diabetes mellitus without complication, without long-term current use of insulin Edema, unspecified type Coronary artery disease, unspecified vessel or lesion type, unspecified whether angina present, unspecified whether [place] or transplanted heart Dyspnea on exertion Other dyspnea and respiratory abnormality BMI 26.0-26.9,adult Edema, unspecified type- Primary Coronary artery disease involving [place] heart, unspecified vessel or lesion type, unspecified whether angina present Cardiomyopathy, ischemic Other specified forms of chronic ischemic heart disease Essential hypertension, benign Hyperlipidemia, unspecified hyperlipidemia type BMI 26.0-26.9,adult Localized swelling, mass and lump, left lower limb Edema, unspecified type- Primary Coronary artery disease involving [place] heart, unspecified vessel or lesion type, unspecified whether angina present Cardiomyopathy, ischemic Other specified forms of chronic ischemic heart disease BMI 26.0-26.9,adult Other cardiomyopathy Cardiomyopathy, ischemic Other specified forms of chronic ischemic heart disease Edema, unspecified type documented in this encounter [facility] Work Phone: Evaluation note* Diagnosis Cardiomyopathy, ischemic- Primary Other specified forms of chronic ischemic heart disease Coronary artery disease involving [place] heart, unspecified vessel or lesion type, unspecified whether angina present Essential hypertension, benign Hyperlipidemia, unspecified hyperlipidemia type Type 2 diabetes mellitus without complication, without long-term current use of insulin Edema, unspecified type Coronary artery disease, unspecified vessel or lesion type, unspecified whether angina present, unspecified whether [place] or transplanted heart Dyspnea on exertion Other dyspnea and respiratory abnormality BMI 26.0-26.9,adult Edema, unspecified type- Primary Coronary artery disease involving [place] heart, unspecified vessel or lesion type, unspecified whether angina present Cardiomyopathy, ischemic Other specified forms of chronic ischemic heart disease Essential hypertension, benign Hyperlipidemia, unspecified hyperlipidemia type BMI 26.0-26.9,adult Localized swelling, mass and lump, left lower limb Edema, unspecified type- Primary Coronary artery disease involving [place] heart, unspecified vessel or lesion type, unspecified whether angina present Cardiomyopathy, ischemic Other specified forms of chronic ischemic heart disease BMI 26.0-26.9,adult Other cardiomyopathy Coronary artery disease involving [place] heart, unspecified vessel or lesion type, unspecified whether angina present- Primary Edema, unspecified type Essential hypertension, benign Hyperlipidemia, unspecified hyperlipidemia type Cardiomyopathy, ischemic Other specified forms of chronic ischemic heart disease BMI 27.0-27.9,adult Dyspnea on exertion Other dyspnea and respiratory abnormality Type 2 diabetes mellitus with other circulatory complications documented in this encounter [facility] Work Phone: Evaluation note* Diagnosis Cardiomyopathy, ischemic- Primary Other specified forms of chronic ischemic heart disease Coronary artery disease involving [place] heart, unspecified vessel or lesion type, unspecified whether angina present Essential hypertension, benign Hyperlipidemia, unspecified hyperlipidemia type Type 2 diabetes mellitus without complication, without long-term current use of insulin Edema, unspecified type Coronary artery disease, unspecified vessel or lesion type, unspecified whether angina present, unspecified whether [place] or transplanted heart Dyspnea on exertion Other dyspnea and respiratory abnormality BMI 26.0-26.9,adult Edema, unspecified type- Primary Coronary artery disease involving [place] heart, unspecified vessel or lesion type, unspecified whether angina present Cardiomyopathy, ischemic Other specified forms of chronic ischemic heart disease Essential hypertension, benign Hyperlipidemia, unspecified hyperlipidemia type BMI 26.0-26.9,adult Localized swelling, mass and lump, left lower limb Edema, unspecified type- Primary Coronary artery disease involving [place] heart, unspecified vessel or lesion type, unspecified whether angina present Cardiomyopathy, ischemic Other specified forms of chronic ischemic heart disease BMI 26.0-26.9,adult Other cardiomyopathy Coronary artery disease involving [place] heart, unspecified vessel or lesion type, unspecified whether angina present- Primary Edema, unspecified type Essential hypertension, benign Hyperlipidemia, unspecified hyperlipidemia type Cardiomyopathy, ischemic Other specified forms of chronic ischemic heart disease BMI 27.0-27.9,adult Dyspnea on exertion Other dyspnea and respiratory abnormality Type 2 diabetes mellitus with other circulatory complications Coronary artery disease involving [place] heart, unspecified vessel or lesion type, unspecified whether angina present- Primary Edema, unspecified type Essential hypertension, benign Hyperlipidemia, unspecified hyperlipidemia type Cardiomyopathy, ischemic Other specified forms of chronic ischemic heart disease BMI 26.0-26.9,adult documented in this encounter [facility] Work Phone: History and physical note Author Chin Rodarte [facility] October 11, 2023 4:46pmNote Date/TimeDece2022 4:13[place] [address] Hospitalist H&P Signed Patient: Heidi Palmer MR#: [id number] : 1940 Acct:[id number] Age/Sex: 83 / F Adm Date: 3 Loc: 3T Room: [address] [place] [address] Type: ADM IN Attending Dr: Chin Rodarte [...] negative unless noted below or in HPI [facility] Medical History (Updated 10/11/23 @ 16:39 [...] release(part/cryst) (Klor-Con M) 10 meq PO DAILY 10/11/23[History Confirmed 10/11/23] propranolol 160 mg capsule,24 hr,extended [...] % (Auto) 21.3 % (.) 10/11/23 13:43 [place] % (Auto) 8.4 % (.) 10/11/23 13:43 Eos % (Auto) 1.7 % (.) 10/11/23 13:43 Baso % (Auto) 1.0 % (.) 10/11/23 13:43 Nucleat RBC Rel Count 0.1 /100 WBC (0-0.5) 10/11/23 13:43 Neut # (Auto) 6.9 x10E3/uL (1.8-7.7) 10/11/23 13:43 Lymph # (Auto) 2.2 x10E3/uL (1.00-4.8) 10/11/23 13:43 [place] # (Auto) 0.8 x10E3/uL (0.0-0.8) 10/11/23 13:43 [...] setting as: INPATIENT because of an expectation ofan over 2 midnight stay. Estimated length of stay (# of days): 3 Documented By: Chin Rodarte MD 10/11/23 1609 Signed By: <Electronically signed by Chin Rodarte MD> 10/11/23 164 [facility] Work Phone: History general Narrative - Reported* Type Description Date Medical History Diabetes Medical HistorySciaticaMedical HistoryHypertensionMedical HistoryHyperlipidemia Medical HistoryHypokalemiaMedical HistoryH/O left mastectomyMedical History History of cancerSurgical HistoryBreast cancer removedSurgical HistoryCancer >25 years AgoSurgical HistoryLeft MasectomySurgical HistoryLeft Ankle Surgery Surgical HistoryThyroid lump removed - not cancerSurgical History7 Stents in HeartSurgical HistoryAnkle surgerySurgical Historyback [id number] HistoryTonsils out- childSurgical HistoryDiscectomy [id number] HistorySee Above [employer] Other History general Narrative - Reported* Type Description Date Medical History Diabetes Medical HistorySciaticaMedical HistoryHypertensionMedical HistoryHyperlipidemia Medical HistoryHypokalemiaMedical HistoryH/O left mastectomyMedical History History of cancerMedical Historyright hip fractureSurgical HistoryBreast cancer removedSurgical HistoryCancer >25 years AgoSurgical HistoryLeft Masectomy Surgical HistoryLeft Ankle SurgerySurgical HistoryThyroid lump removed - not cancerSurgical History7 Stents in HeartSurgical HistoryAnkle surgerySurgical Historyback [id number] HistoryTonsils out- childSurgical History Discectomy [id number] Historyright fracture repairHospitalization [facility] - UTI2Hospitalization HistorySee Above [employer] Other History of Present illness NarrativePatient returns [...] we will plan to see her as noted.-[facility] Hospital[facility] 250 DO Work Phone: History of Present [...] mitigated now with the introduction of statin therapy-[facility]-Tyler 250 DO Work Phone: Progress note Author Tosha Patel [facility] December 08, 2023 11:56amNote Date/TimeJanuary 2023 11:19[facility] [address] [place] [address] Cancer Center Note Signed Patient: Heidi Palmer MR#: [id number] : 1940 Acct:[id number] Age/Sex: 83 / F Type: REG AMB [...] did not show convincing evidence of highly suspiciouslesion for metastatic or primary malignant masses of [...] her to have a follow-up with her coffee blender Dr. Stark since she has worsening bilateral [...] obtain the path report from 08/02/2023 from [facility] for the needlebiopsy of the thyroid [...] reduction and internal fixation on [facility]23[facility] by orthopedic surgery. As part of the fall evaluation she had a CT of head neck chest x-rays of the bones in addition to the femoralshe was found to have bilateral noncalcified lung nodules the largest of which is in the right upper lung. CAT scan of the chest was done on 10/11/2023 revealed the largest mass in the right upper lung 3.1 cm cannot rule out metastatic disease versus infections. For therefore oncology was consulted f or further recommendations. As of 10/13/2023 morning when I saw her she was toolethargic little bit not very good historian but she stated that she had a left breast surgery probably at [facility] about 3035 years ago and she [...] close by. The daughter Lyubov lives in [place]. Patient has not seen oncologist to her [...] masslike areas of consolidation are noted bilaterally. Thelargest in the right upper lobe measures 3.1 cm in greatest dimension. The largest in the left lower lobe measures 1 cm in greatestdimension. The largest in the left upper lobe measures 1.8 cm in grea test dimension. These are suspicious for malignancy given [...] 08/02/23, [facility] negative for [facility]. Path report is not available to us but will obtain it from there. She denied CP or SOB or wheezing but has stuffy nose form allergies chronically. She denied history of moldsin her house. She denied bleeding from any [...] or activities in the lungs but no co nvincing activity to require a biopsy as this could be inflammation or or atelectasis. Did show enlarging right pleural effusion however. Her mammogram was benign and was done on 12/01/2023. Patient denies any shortness of breath orcough or hemoptysis. She has however worsening bilateral lower extremity edema. She has not seen Dr. Stark her coffee blender for a while now but she is [...] and go over PET scan and mamogram [facility] Medical History Medical History (Updated 11/17/23 [...] signed by Tosha Patel MD> 12/08/23 1156 [facility] Work Phone: Progress note Author Tosha Patel [facility] June 09, 2024 11:19amNote Date/TimeAugust 2023 10:51am[facility] [place] [address] Cancer Center Note Signed Patient: Heidi Palmer MR#: [id number] : 1940 Acct:[id number] Age/Sex: 84 / F Type: REG AMB [...] did not show convincing evidence of highly suspiciouslesion for metastatic or primary malignant masses of [...] her to have a follow-up with her coffee blender Dr. Stark since she has worsening bilateral lower extremity edema. Plan is to do a CT of the chest without contrast in 6 months and see her then infollow-up for the bilateral lung masses initially seen for 1 more confirmation of that and if it reveals no more massesthen we can discharge her from our oncology [...] mass initially seen previously has resolved on thecurrent CAT scans. She currently does not smoke. [...] obtain the path report from 08/02/2023 from [facility] for the needlebiopsy of the thyroid [...] reduction and internal fixation on 10/12/2023here at [facility] by orthopedic surgery. As part of the fall evaluation she had a CT of head neck chest x-rays of the bones in addition to the femoralshe was found to have bilateral noncalcified lung nodules the largest of which is in the right upper lung. CAT scan of the chest was done on 10/11/2023 revealed the largest mass in the right upper lung 3.1 cm cannot rule out metastatic disease versus infections. For therefore oncology was consulted f or further recommendations. As of 10/13/2023 morning when I saw her she was toolethargic little bit not very good historian but she stated that she had a left breast surgery probably at [facility] about 3035 years ago and she [...] close by. The daughter Lyubov lives in [place]. Patient has not seen oncologist to her [...] masslike areas of consolidation are noted bilaterally. Thelargest in the right upper lobe measures 3.1 cm in greatest dimension. The largest in the left lower lobe measures 1 cm in greatestdimension. The largest in the left upper lobe measures 1.8 cm in grea test dimension. These are suspicious for malignancy given [...] 08/02/23, she had thyroid nodule biopsy at [facility] whichwas negative for cancer. Path report is not available to us but will obtain it from there. She denied CP or SOB or wheezing but has stuffy nose form allergies chronically. She denied history of moldsin her house. She denied bleeding from any [...] or activities in the lungs but no co nvincing activity to require a biopsy as this could be inflammation or or atelectasis. Did show enlarging right pleural effusion however. Her mammogram was benign and was done on 12/01/2023. Patient denies any shortness of breath orcough or hemoptysis. She has however worsening bilateral lower extremity edema. She has not seen Dr. Stark her coffee blender for a while now but she is already taking Lasix. 06/09/24: She is here for the 6 months follow-up for her history of the right lung mass and history of breastcancer as well as history of thyroid surgery [...] Ultra Test strips) As directed blood-glucose meter (OneTouch Ultra2 Meter) As directed blood-glucose sensor (FreeStyle Violeta 3 Sensor device) As directed invitro, change every 14 days calcium carbonate-vitamin D3 500 mg-5 mcg (200 unit) (Oyster Shell Calcium- Vitamin D3) 1 tab PO BID diclofenac sodium 1% 2 grams topical TID PRN diphenhydramine HCl (Benadryl) 25 mg PO TID PRN insulin glargine-lixisenatide 100 unit-33 mcg/mL (Soliqua 100/33) 23 units (0.23mL) subcut DAILY lancets (OneTouch Delica Plus Lancet) [...] go over CT scan of the Chest [facility] Medical History Medical History Abnormal breast [...] signed by Tosha Patel MD> 06/09/24 1119 [facility] Work Phone: Progress note Author Tosha Patel [facility] CenterNote Date/TimeFebruary 2024 1:22pm [facility] at [address] [place] [address] Cancer Center Note Signed Patient: Heidi Palmer MR#: [id number] : 1940 Acct:[id number] Age/Sex: 84 / F Type: REG AMB [...] did not show convincing evidence of highly suspiciouslesion for metastatic or primary malignant masses of [...] her to have a follow-up with her coffee blender Dr. Stark since she has worsening bilateral lower extremity edema. Plan is to do a CT of the chest without contrast in 6 months and see her then infollow-up for the bilateral lung masses initially seen for 1 more confirmation of that and if it reveals no more massesthen we can discharge her from our oncology [...] mass initially seen previously has resolved on thecurrent CAT scans. She currently does not smoke. [...] without contrast reviewed grossly stable tree-in-bud nodularity involvingthe left lung compared to 06/07/2024 study. No progression of disease is seen. CT follow-up is recommended to ensure resolution. Patient did not get her screening mammogram and she does not want to get any screening mammogram anymore because she is 84-year-old. She had non-STEMI in June 2024 and she thinks she is too old forscreening mammogram. She agreed to follow lung CTs [...] obtain the path report from 08/02/2023 from [facility] for the needlebiopsy of the thyroid [...] reduction and internal fixation on 10/12/2023here at [facility] by orthopedic surgery. As part of the fall evaluation she had a CT of head neck chest x-rays of the bones in addition to the femoralshe was found to have bilateral noncalcified lung nodules the largest of which is in the right upper lung. CAT scan of the chest was done on 10/11/2023 revealed the largest mass in the right upper lung 3.1 cm cannot rule out metastatic disease versus infections. For therefore oncology was consulted f or further recommendations. As of 10/13/2023 morning when I saw her she was toolethargic little bit not very good historian but she stated that she had a left breast surgery probably at [facility] about 3035 years ago and she [...] close by. The daughter Lyubov lives in [place]. Patient has not seen oncologist to her [...] masslike areas of consolidation are noted bilaterally. Thelargest in the right upper lobe measures 3.1 cm in greatest dimension. The largest in the left lower lobe measures 1 cm in greatestdimension. The largest in the left upper lobe measures 1.8 cm in grea test dimension. These are suspicious for malignancy given [...] 08/02/23, she had thyroid nodule biopsy at [facility] whichwas negative for cancer. Path report is not available to us but will obtain it from there. She denied CP or SOB or wheezing but has stuffy nose form allergies chronically. She denied history of moldsin her house. She denied bleeding from any [...] or activities in the lungs but no co nvincing activity to require a biopsy as this could be inflammation or or atelectasis. Did show enlarging right pleural effusion however. Her mammogram was benign and was done on 12/01/2023. Patient denies any shortness of breath orcough or hemoptysis. She has however worsening bilateral lower extremity edema. She has not seen Dr. Stark her coffee blender for a while now but she is already taking Lasix. 06/09/24: She is here for the 6 months follow-up for her history of the right lung mass and history of breastcancer as well as history of thyroid surgery [...] without contrast reviewed grossly stable tree-in-bud nodularity involvingthe left lung compared to 06/07/2024 study. No progression of disease is seen. CT follow-up is recommended to ensure resolution. Patient did not get her screening mammogram and she does not want to get any screening mammogram anymore because she is 84-year-old. She had non-STEMI in June 2024 and she thinks she is too old forscreening mammogram. She agreed to follow lung CTs [...] Ultra Test strips) As directed blood-glucose meter (OneTouch Ultra2 Meter) As directed blood-glucose sensor (FreeStyle Violeta 3 Sensor device) As directed invitro, change every 14 days blood-glucose sensor (FreeStyle Violeta 3 Plus Sensor device) As directed change [...] No concerns voiced at time of intake. [facility] Medical History Medical History Abnormal breast [...] signed by Tosha Patel MD> 12/13/24 1322 [facility] Work Phone: Reason for referral (narrative)* Consultation (Routine) - AuthorizedSpecialtyDiagnoses / ProceduresReferred By Contact Referred To ContactCardiology Diagnoses Coronary artery disease involving tonawanda coronary artery of tonawanda heart without angina pectoris Procedures Follow Up In Cardiology David Hayward MD [address] [place] [address] [address], [address] [address] David Hayward MD [address] [place] [address] [address], [address] [address] Referral IDStatusReasonStart DateExpiration DateVisits RequestedVisits [id number]/ [facility] Work Phone: Rersyr for referral (narrative)* Consultation (Routine) - AuthorizedSpecialtyDiagnoses / ProceduresReferred By Contact Referred To ContactCardiac Rehabilitation Diagnoses Coronary artery disease involving tonawanda heart, unspecified vessel or lesion type, unspecified whether angina present Cardiomyopathy, ischemic David Mcdermott DO [address] [facility] 2, Mg [address] [place] [address] Referral IDStatusReasonStart DateExpiration DateVisits RequestedVisits [id number] Specialty Services Required Scheduling Instructions [facility] * Imaging (Routine) - Pending ReviewSpecialtyDiagnoses / ProceduresReferred By ContactReferred To ContactRadiology Diagnoses Coronary artery disease involving tonawanda heart, unspecified vessel or lesion type, unspecified whether angina present Cardiomyopathy, ischemic Procedures NM heart blood pool ejection fraction wall motion (MUGA) David Mcdermott DO [address] 2, Mg [address] [id number] Referral IDStatusReasonRound Mountain DateExpiration DateVisits RequestedVisits [id number] Review Perform Procedure * Consultation (Routine) - AuthorizedSpecialtyDiagnoses / ProceduresReferred By ContactReferred To ContactCardiology Diagnoses Coronary artery disease involving tonawanda heart, unspecified vessel or lesion type, unspecified whether angina present Procedures Follow Up In Cardiology David Mcdermott, [address] [facility] 2, Mg [address] [id number] José Antonio Hills, STRIPPER SHOVEL OPERATOR-RESIDENTIAL INSTRUCTOR [address] [facility] 2, Mg [address] [phone] Referral IDStatusReasonStart DateExpiration DateVisits RequestedVisits [id number] [facility] Work Phone: Reason for referral (narrative)No reason for referral information availableAultman Alliance Community Hospital Work Phone: Reason for visit Narrative* Imaging (Routine) - AuthorizedSpecialtyDiagnoses / ProceduresReferred By ContactReferred To ContactRadiology Diagnoses Coronary artery disease involving tonawanda heart, unspecified vessel or lesion type, unspecified whether angina present Cardiomyopathy, ischemic Procedures NM heart blood pool ejection fraction wall motion (MUGA) David Mcdermott, DO [address] [facility] 2, [address] [address] Phone: tel: fax: Referral IDStatusReasonStart DateExpiration DateVisits RequestedVisits [id number] Perform Procedure [facility] Work Phone: Reason for visit Narrative* CV Imaging (Routine) - AuthorizedSpecialtyDiagnoses / ProceduresReferred By ContactReferred To ContactCardiology Diagnoses Cardiomyopathy, ischemic Edema, unspecified type Procedures Transthoracic Echo Complete [place] ECHO TTHRC R-T 2D W/WOM-MODE COMPL SPEC&COLR D José Antonio Hills, STRIPPER SHOVEL OPERATOR-RESIDENTIAL INSTRUCTOR [address] [facility] 2, [address] [address] Phone: tel: fax: Referral IDStatusReasonStart DateExpiration DateVisits RequestedVisits [id number] Perform Procedure / [facility] Work Phone: Summary Purpose Family History Unknown Family Member Name Dates Details Family history of diabetes m ellitus: Mother, Father, Brother(V18.0, Z83.3) Status:ActiveFamily history of malignant neoplasm: Brother(V16.9, Z80.9) Status:ActiveFamily history of malignant neoplasm of breast: Sister(V16.3, Z80.3) Status:ActiveHeart problem: Mother, Father, Brother Status:Active Unknown Family Member Name Dates Details Family history of diabetes m ellitus: Mother, Father, Brother(V18.0, Z83.3) Status:ActiveFamily history of malignant neoplasm: Brother(V16.9, Z80.9) Status:ActiveFamily history of malignant neoplasm of breast: Sister(V16.3, Z80.3) Status:ActiveHeart problem: Mother, Father, Brother Status:Active Unknown Family Member Name Dates Details Family history of diabetes m ellitus: Mother, Father, Brother(V18.0, Z83.3) Status:ActiveFamily history of malignant neoplasm: Brother(V16.9, Z80.9) Status:ActiveFamily history of malignant neoplasm of breast: Sister(V16.3, Z80.3) Status:ActiveHeart problem: Mother, Father, Brother Status:Active Relationship Condition Age at Onset Recorded Date/T michelle father Diabetes mellitus Unknown CardiomegalyUnknownNot SpecifiedCoronary artery diseaseUnknownsisterMalignant neoplasm of lungUnknown Unknown Family Member Name Dates Details Family history of diabetes m ellitus: Mother, Father, Brother(V18.0, Z83.3) Status:ActiveFamily history of malignant neoplasm: Brother(V16.9, Z80.9) Status:ActiveFamily history of malignant neoplasm of breast: Sister(V16.3, Z80.3) Status:ActiveHeart problem: Mother, Father, Brother Status:Active Relationship Condition Age at Onset Recorded Date/T michelle father Diabetes mellitus Unknown CardiomegalyUnknownNot SpecifiedCoronary artery diseaseUnknownsisterMalignant neoplasm of lungUnknownbrotherDeceasedUnknownfatherHeart diseaseUnknownDeceased UnknownDiabetes mellitusUnknownfamily memberFamily history of other condition UnknownNot SpecifiedDeceasedUnknownHeart diseaseUnknownHypertensionUnknown Relationship Condition Age at Onset Recorded Date/T michelle father Diabetes mellitus Unknown CardiomegalyUnknownNot SpecifiedCoronary artery diseaseUnknownsisterMalignant neoplasm of lungUnknownbrotherDeceasedUnknownMalignant neoplasmUnknownfather Heart diseaseUnknownDeceasedUnknownDiabetes mellitusUnknownfamily memberFamily history of other conditionUnknownNot SpecifiedDeceasedUnknownHeart disease UnknownHypertensionUnknown Relationship Condition Age at Onset Recorded Date/T michelle father Diabetes mellitus Unknown CardiomegalyUnknownmotherCoronary artery diseaseUnknownsisterMalignant neoplasm of lungUnknownbrotherDeceasedUnknownMalignant neoplasmUnknownfatherHeart disease UnknownDeceasedUnknownDiabetes mellitusUnknownfamily memberFamily history of other conditionUnknownmotherDeceasedUnknownHeart diseaseUnknownHypertension Unknown Advance Directives Advance Directive Response Recorded Date/ Time Advance Directives No February 28 10:14am Advance Directive Response Recorded Date/ Time Advance Directives No February 28 11:14am Hospital Course Note MR#: [id number] [facility] Pt. Name: Heidi Palmer Admitted: 12/13/2018 Discharged: 12/16/2018 Date of : 1940 Physician: Kurtis Stacy M.D. DISCHARGE SUMMARY DISCHARGE PHYSICIAN: Kurtis Stacy M.D. SERVICE: Med-B. PRIMARY DIAGNOSES: 1. Sepsis, secondary to urinary tract infection, resolved. 2. Metabolic encephalopathy, resolved. 3. Sciatica pain. 4. Coronary artery disease, status post stent 5 years ago. 5. Hypertension. 6. Uel-qycxtkb-khimunjik diabetes. 7. Hypothyroidism. CONSULTS: None. PROCEDURES: None. SUMMARY OF HOSPITAL COURSE: The patient is a 78-year-old female patient with a past medical history of hypertension, bwi-cfaraln-safqfkglx diabetes, hypothyroidism, coronary artery diease status post stents 5 years ago and sciatica pain, who presented from [facility] due to concern of stroke. Her [...] S62.607A S52.135A Chief Complaint r30.0 DM Hip painReason for VisitCAD (coronary artery disease) Closed subcapital fracture of neck of right femur Diabetes Fall Hyperlipidemia Hypothyroid Chief Complaint r30.0 DM Hip painReason for VisitCAD (coronary artery disease) Closed subcapital fracture of neck of right femur Diabetes Fall History of left breast cancer Hyperlipidemia Hypothyroid Impaired mobility and activities of daily living Lung mass Postoperative pain Chief Complaint r30.0 DM Hip pain right femoral neck fx s/p giana-arthroplastyReason for VisitCAD (coronary artery disease) Closed subcapital fracture of neck of right femur Diabetes Hyperlipidemia Hypothyroid Lung mass Postoperative pain CAD (coronary artery disease) Closed subcapital fracture of neck of right femur COVID-19 Diabetes Hyperlipidemia Hypothyroid Lung mass Postoperative pain Yeast UTI Chief Complaint Lung Mass DM Amb Documentation Z96.641 - Presence of right artificial hip joint 8 WK RECHECK violeta on phone medication checkReason for VisitHistory of left breast cancer History of thyroid surgery Mass of right lung History of left breast cancer History of thyroid surgery Mass of right lung [id number] History of right hip hemiarthroplasty BMI 26.0-26.9,adult Dietary counseling and surveillance Hyperlipidemia Hypertension Type 2 diabetes mellitus with hyperglycemia Chief Complaint Lung Mass DM Amb Documentation Z96.641 - Presence of right artificial hip joint 8 WK RECHECK violeta on phone medication check DMN f/u-ON PHONEReason for VisitHistory of left breast cancer History of thyroid surgery Mass of right lung History of left breast cancer History of thyroid surgery Mass of right lung [id number] History of right hip hemiarthroplasty BMI 26.0-26.9,adult Dietary counseling and surveillance Hyperlipidemia Hypertension Type 2 diabetes mellitus with hyperglycemia CAD (coronary artery disease) History of right hip hemiarthroplasty Insomnia Type 2 diabetes mellitus with hyperglycemia Chief Complaint violeta on phone medication check DMN f/u-ON PHONE Amb Documentation Z96.641 - Presence of right artificial hip jointReason for VisitBMI 26.0-26.9,adult Dietary counseling and surveillance Hyperlipidemia Hypertension Type 2 diabetes mellitus with hyperglycemia CAD (coronary artery disease) History of right hip hemiarthroplasty Insomnia Type 2 diabetes mellitus with hyperglycemia BMI 26.0-26.9,adult Dietary counseling and surveillance Hyperlipidemia Hypertension Type 2 diabetes mellitus with hyperglycemia Chief Complaint medication check DMN f/u-ON PHONE Amb Documentation DL per DS 6 weekReason for VisitCAD (coronary artery disease) History of right hip hemiarthroplasty Insomnia Type 2 diabetes mellitus with hyperglycemia BMI 26.0-26.9,adult Dietary counseling and surveillance Hyperlipidemia Hypertension Type 2 diabetes mellitus with hyperglycemia Type 2 diabetes mellitus with hyperglycemia Chief Complaint Amb Documentation DL per DS 6 week DMN f/uReason for VisitType 2 diabetes mellitus with hyperglycemia BMI 26.0-26.9,adult Dietary counseling and surveillance Hyperlipidemia Hypertension Type 2 diabetes mellitus with hyperglycemia Chief Complaint Amb Documentation DL per DS 6 week DMN f/u Lung MassReason for VisitType 2 diabetes mellitus with hyperglycemia BMI 26.0-26.9,adult Dietary counseling and surveillance Hyperlipidemia Hypertension Type 2 diabetes mellitus with hyperglycemia History of left breast cancer History of thyroid surgery Mass of right lung History of left breast cancer History of thyroid surgery Mass of right lung Chief Complaint DL per DS 6 week DMN f/u Lung Mass Stemi StemiReason for VisitType 2 diabetes mellitus with hyperglycemia BMI 26.0-26.9,adult [...] week DMN f/u Lung Mass Stemi Stemi DLReason for VisitType 2 diabetes mellitus with hyperglycemia BMI 26.0-26.9,adult Dietary counseling and surveillance Hyperlipidemia Hypertension Type 2 diabetes mellitus with hyperglycemia Mass of right lung Mass of right lung CAD (coronary artery disease) Diabetes Hyperlipidemia Type 2 diabetes mellitus with hyperglycemia Chief Complaint DMN f/u Lung Mass Stemi Stemi DL Hosp follow upReason for VisitBMI 26.0-26.9,adult Dietary counseling and surveillance Hyperlipidemia Hypertension Type 2 diabetes mellitus with hyperglycemia Mass of right lung Mass of right lung CAD (coronary artery disease) Diabetes Hyperlipidemia Type 2 diabetes mellitus with hyperglycemia Chief Complaint Stemi Stemi DL Hosp follow up CC Adult Risk Stratification 10 week f/u-DMN f/u / violeta on phoneReason for VisitCAD (coronary artery disease) Diabetes Hyperlipidemia Type 2 diabetes mellitus with hyperglycemia Chief Complaint Admit Date 10 week f/u-DMN f/u / violeta on phone Sep 8:43am DMN f/u- on phone December 06, 2024 1 0:50am Reason for Visit Admit Date BMI 26.0-26.9,adult September 08, 2024 8 :43am Dietary counseling and surveillance Jhony 2023 8:43am Hyperlipidemia September 08, 2024 8 :43am Hypertension September 08, 2024 8 :43am Type 2 diabetes mellitus with hyperglyce carmen September 08, 2024 8:43am Chief Complaint Admit [...] 2024 1 0:50am Dietary counseling and surveillance Delfinoheather morrison 2024 10:50am Hyperlipidemia December 06, 2024 [...] 12:50pm Type 2 diabetes mellitus with hyperglyce carmen January 24, 2025 10:53am Chief Complaint Admit Date DMN f/u- on phone December 06, 2024 1 0:50am Follow Up December 13, 2024 1 2:44pm Lung Mass December 13, 2024 1 2:50pm r60.9 r22.42 January 22, 2025 1:2 9pm 6 week DL January 24, 2025 10: 53am 12 week-DMN f/u February 28, 2025 10: 58am Reason for Visit Admit Date BMI 26.0-26.9,adult [...] 12:50pm Type 2 diabetes mellitus with hyperglyce carmen January 24, 2025 10:53am BMI 26.0-26.9,adult February 28, 2025 10: 58am Dietary counseling and surveillance Apri l 2024 10:58am Hyperlipidemia February 28, 2025 10: 58am Hypertension February 28, 2025 10: 58am Type 2 diabetes mellitus with hyperglyce carmen February 28, 2025 10:58am Chief Complaint Admit Date r60.9 r22.42 January 22, 2025 1:2 9pm 6 week DL January 24, 2025 10: 53am 12 week-DMN f/u February 28, 2025 10: 58am [facility] March 21, 2025 10 :36am Reason for Visit Admit Date Type 2 diabetes mellitus with hyperglyce carmen January 24, 2025 10:53am BMI 26.0-26.9,adult February 28, 2025 10: 58am Dietary counseling and surveillance Apri l 2024 10:58am Hyperlipidemia February 28, 2025 10: 58am Hypertension February 28, 2025 10: 58am Type 2 diabetes mellitus with hyperglyce carmen February 28, 2025 10:58am Medicare annual wellness visit, subseque nt March 21, 2025 10:36am Type 2 diabetes mellitus wit h other circulatory complications March 21, 2025 10:36am Type 2 diabetes mellitus with other spec ified complication March 21, 2025 10:36am Chief Complaint Admit Date r60.9 r22.42 January 22, 2025 1:2 9pm 6 week DL January 24, 2025 10: 53am 12 week-DMN f/u February 28, 2025 10: 58am [facility] March 21, 2025 10 :36am 6 week-DMN f/u April 09, 2025 11:15 am Reason for Visit Admit Date Type 2 diabetes mellitus with hyperglyce carmen January 24, 2025 10:53am BMI 26.0-26.9,adult February 28, 2025 10: 58am Dietary counseling and surveillance Apri l 2024 10:58am Hyperlipidemia February 28, 2025 10: 58am Hypertension February 28, 2025 10: 58am Type 2 diabetes mellitus with hyperglyce carmen February 28, 2025 10:58am CAD (coronary artery disease) March 21, 2025 10:36am Hypothyroid March 21, 2025 10:36 am Medicare annual wellness visit, subseque nt March 21, 2025 10:36am Type 2 diabetes mellitus wit h other circulatory complications March 21, 2025 10:36am Type 2 diabetes mellitus with other spec ified complication March 21, 2025 10:36am BMI 26.0-26.9,adult April 09, 2025 11:15 am Dietary counseling and surveillance April 09, 2025 11:15am Hyperlipidemia April 09, 2025 11:15 am Hypertension April 09, 2025 11:15 am Type 2 diabetes mellitus with hyperglyce carmen April 09, 2025 11:15am Chief Complaint Admit Date 12 week-DMN f/u February 28, 2025 10: 58am [facility] March 21, 2025 10 :36am 6 week-DMN f/u April 09, 2025 11:15 am R60.9 I25.10 I10 E78.5 E11.59 May 16, 2025 9:29am Reason for Visit Admit Date BMI 26.0-26.9,adult February 28, 2025 10: 58am Dietary counseling and surveillance Apri l 2024 10:58am Hyperlipidemia February 28, 2025 10: 58am Hypertension February 28, 2025 10: 58am Type 2 diabetes mellitus with hyperglyce carmen February 28, 2025 10:58am CAD (coronary artery disease) March 21, 2025 10:36am Hypothyroid March 21, 2025 10:36 am Medicare annual wellness visit, subseque nt March 21, 2025 10:36am Type 2 diabetes mellitus wit h other circulatory complications March 21, 2025 10:36am Type 2 diabetes mellitus with other spec ified complication March 21, 2025 10:36am BMI 26.0-26.9,adult April 09, 2025 11:15 am Dietary counseling and surveillance April 09, 2025 11:15am Hyperlipidemia April 09, 2025 11:15 am Hypertension April 09, 2025 11:15 am Type 2 diabetes mellitus with hyperglyce carmen April 09, 2025 11:15am Chief Complaint Admit Date 12 week-DMN f/u February 28, 2025 10: 58am [facility] March 21, 2025 10 :36am 6 week-DMN f/u April 09, 2025 11:15 am R60.9 I25.10 I10 E78.5 E11.59 May 16, 2025 9:29am DMN f/u / violeta on phone May 24, 2025 8:13am Reason for Visit Admit Date BMI 26.0-26.9,adult February 28, 2025 10: 58am Dietary counseling and surveillance Apri l 2024 10:58am Hyperlipidemia February 28, 2025 10: 58am Hypertension February 28, 2025 10: 58am Type 2 diabetes mellitus with hyperglyce carmen February 28, 2025 10:58am CAD (coronary artery disease) March 21, 2025 10:36am Hypothyroid March 21, 2025 10:36 am Medicare annual wellness visit, subseque nt March 21, 2025 10:36am Type 2 diabetes mellitus wit h other circulatory complications March 21, 2025 10:36am Type 2 diabetes mellitus with other spec ified complication March 21, 2025 10:36am BMI 26.0-26.9,adult April 09, 2025 11:15 am Dietary counseling and surveillance April 09, 2025 11:15am Hyperlipidemia April 09, 2025 11:15 am Hypertension April 09, 2025 11:15 am Type 2 diabetes mellitus with hyperglyce carmen April 09, 2025 11:15am BMI 26.0-26.9,adult May 24, 2025 8:13 am Dietary counseling and surveillance May 24, 2025 8:13am Hyperlipidemia May 24, 2025 8:13 am Hypertension May 24, 2025 8:13 am Type 2 diabetes mellitus with hyperglyce carmen May 24, 2025 8:13am Chief Complaint Admit Date 12 week-DMN f/u February 28, 2025 10: 58am [facility] March 21, 2025 10 :36am 6 week-DMN f/u April 09, 2025 11:15 am R60.9 I25.10 I10 E78.5 E11.59 May 16, 2025 9:29am DMN f/u / violeta on phone May 24, 2025 8:13am E11.69 Z79.4 May 24, 2025 9:03 am Chief Complaint Admit Date 6 week-DMN f/u April 09, 2025 11:15 am R60.9 I25.10 I10 E78.5 E11.59 May 16, 2025 9:29am DMN f/u / violeta on phone May 24, 2025 8:13am E11.69 Z79.4 May 24, 2025 9:03 am 4 week DL June 20, 2025 9: 54am Reason for Visit Admit Date BMI 26.0-26.9,adult April 09, 2025 11:15 am Dietary counseling and surveillance April 09, 2025 11:15am Hyperlipidemia April 09, 2025 11:15 am Hypertension April 09, 2025 11:15 am Type 2 diabetes mellitus with hyperglyce carmen April 09, 2025 11:15am BMI 26.0-26.9,adult May 24, 2025 8:13 am Dietary counseling and surveillance May 24, 2025 8:13am Hyperlipidemia May 24, 2025 8:13 am Hypertension May 24, 2025 8:13 am Type 2 diabetes mellitus with hyperglyce carmen May 24, 2025 8:13am Type 2 diabetes mellitus with other spec ified complication June 20, 2025 9:54am Chief Complaint Admit Date R60.9 I25.10 I10 E78.5 E11.59 May 16, 2025 9:29am DMN f/u / violeta on phone May 24, 2025 8:13am E11.69 Z79.4 May 24, 2025 9:03 am 4 week DL June 20, 2025 9: 54am 9 week-DMN f/u- On phone July 25, 2025 10:54am Reason for Visit Admit Date BMI 26.0-26.9,adult May 24, 2025 8:13 am Dietary counseling and surveillance May 24, 2025 8:13am Hyperlipidemia May 24, 2025 8:13 am Hypertension May 24, 2025 8:13 am Type 2 diabetes mellitus with hyperglyce carmen May 24, 2025 8:13am Type 2 diabetes mellitus wit h other specified complication June 20, 2025 9:54am BMI 26.0-26.9,adult July 25, 2025 10:54am Dietary counseling and surveillance Sept ember 2024 10:54am Hyperlipidemia July 25, 2025 10:54am Hypertension July 25, 2025 10:54am Type 2 diabetes mellitus with hyperglyce carmen July 25, 2025 10:54am Additional Source Comments INFORMATION SOURCE (unrecogn ized section and content) DATE CREATED AUTHOR 12/27/2018 [facility] DATE CREATED AUTHOR AUTHOR'S ORGANIZ ATION 12/22/2022 [facility] DATE CREATED AUTHOR AUTHOR'S ORGANIZ ATION 01/16/2023 [facility] DATE CREATED AUTHOR AUTHOR'S ORGANIZ ATION 01/16/2023 [employer] DATE CREATED AUTHOR AUTHOR'S ORGANIZ ATION 06/18/2024 [facility] DATE CREATED AUTHOR AUTHOR'S ORGANIZ ATION 06/30/2024 [facility] DATE CREATED AUTHOR AUTHOR'S ORGANIZ ATION 05/06/2025 [facility] DATE CREATED AUTHOR AUTHOR'S ORGANIZ ATION 05/27/2025 [facility] DATE CREATED AUTHOR AUTHOR'S ORGANIZ ATION 06/08/2025 [facility] REASON FOR VISIT (unrecogniz ed section and content) ReasonCommentsAnnual Ohaj5zvbtNvmxskVtshaxoeLhgidv-fkMMZ [facility] s/p stemi PCI ReasonCommentsFollow-cb4vKzxcaawvdIhsdqicum / ProceduresReferred By Contact Referred To ContactCardiology Diagnoses Coronary artery disease involving [place] heart, unspecified vessel or lesion type, unspecified whether angina present Procedures Follow Up In Cardiology David Mcdermott DO [address] [facility] [address], [place] [address] Phone: tel: fax: José Antonio Hills, STRIPPER SHOVEL OPERATOR-RESIDENTIAL INSTRUCTOR [address] [facility] [address], [place] [address] Phone: tel: fax: Referral IDStatusReasonStart DateExpiration DateVisits RequestedVisits [id number]/5/20249/5/102636LhtfklIpaqzvyoIorpyn-zo5 month Follow up for Coronary Artery DiseaseSpecialtyDiagnoses / ProceduresReferred By ContactReferred To ContactCardiology Diagnoses Coronary artery disease involving [place] heart, unspecified vessel or lesion type, unspecified whether angina present Procedures Follow Up In Cardiology José Antonio Hills, STRIPPER SHOVEL OPERATOR-RESIDENTIAL INSTRUCTOR [address] [facility] [address], [place] [id number] Phone: tel: fax: Referral IDStatusReasonStart DateExpiration DateVisits RequestedVisits [id number]/[id number] RefillReason CommentsFollow-upPt here for 1 month follow up for edema bilateral legs and ankles. Taking Lasix 40mg twice daily.Referral IDStatusReasonStart Date Expiration DateVisits RequestedVisits [id number]/17/[id number]-vlFvdmlpfhhbikep resultsSpecialtyDiagnoses / ProceduresReferred By ContactReferred To ContactCardiology Diagnoses Edema, unspecified type Procedures Follow Up In Cardiology José Antonio Hills, STRIPPER SHOVEL OPERATORBARNSTABLE [facility] H[facility] [address] [address], [place] [address] Phone: tel: fax: Referral IDStatusReasonStart DateExpiration DateVisits RequestedVisits [id number]/[id number]/[id number]-xsIad resultsSpecialtyDiagnoses / ProceduresReferred By ContactReferred To Contact Cardiology Diagnoses Edema, unspecified type Procedures Follow Up In Cardiology José Antonio Hills, STRIPPER SHOVEL OPERATORRESIDENTIAL INSTRUCTOR [address] [address], [place] [id number] Phone: tel: fax: Referral IDStatusReasonStart DateExpiration DateVisits RequestedVisits [id number]/2/20257/ Care Teams (unrecognized sec tion and content) Team Status: Active Member Role Status Dates Mica Hook MD Primary Care Provider Active Team Status: Inactive Member Role Status Dates Mica Hook MD Primary Care Provider Active Start: January 22, 2025 End: January 22, 2025Toya Garces ProviderActiveStart: January 22, 2025 End: January 22, 2025 Team Status: Inactive Member Role Status Dates Mica Hook MD Primary Care Provider Active Start: January 24, 2025 End: January 24, 2025Norma Diaz APRNActiveStart: January 24, 2025 End: January 24, 2025Varsha Haro ProviderActiveStart: January 24, 2025 End: January 24, 2025 Team Status: Active Member Role Status Dates Mica Hook MD Primary Care Provider Active Start: February 02, 2025 José Antonio Hills APRNAtkane ProviderActiveStart: February 02, 2025 Team Status: Inactive Member Role Status Dates Mica Hook MD Primary Care Provider Active Start: February 28, 2025 End: February 28, 2025Dechance C Emily , APRNAttending ProviderActiveStart: February 28, 2025 End: February 28, 2025 Team Status: Inactive Member Role Status Dates Mica Hook MD Primary Care Provide r, Attending Provider Active Start: March 21, 2025 End: March 21, 2025 Team Status: Inactive Member Role Status Dates Mica Hook MD Primary Care Provider Active Start: April 09, 2025 End: April 09, 2025Dechance C Saadly , APRNAttending ProviderActiveStart: April 09, 2025 End: April 09, 2025 Team Status: Active Member Role Status Dates Mica Hook MD Primary Care Provider Active Start: January 01, 2025 José Antonio Hills APRNAtkane ProviderActiveStart: January 01, 2025 Team Status: Inactive Member Role Status Dates Mica Hook MD Primary Care Provider Active Start: September 08, 2024 End: September 08eborah C Scally , APRNAttending ProviderActiveStart: September 08, 2024 End: September 08, 2024 Team Status: Inactive Member Role Status Dates Mica Hook MD Primary Care Provider Active Start: December 06, 2024 End: December 06, 2024Deborkarla C Scally , APRNAttending ProviderActiveStart: December 06, 2024 End: December 06, 2024 Team Status: Active Member Role Status Dates Mica Hook MD Primary Care Provider Active Start: June 29, 2024 Ashwin Hooker ProviderActiveStart: June 29, 2024 Team Status: Inactive Member Role Status Dates Mica Hook MD Primary Care Provider Active Start: June 29, 2024 End: June 30, 2024W Anthony Goodwin Provider, Attending Provider ActiveStart: June 29, 2024 End: June 30becki Wild MDOther ProviderActiveStart: June 29, 2024 End: June 30, 2024 Team Status: Active Member Role Status Dates Mica Hook MD Primary Care Provider Active Start: June 29, 2024 West Saez , DOAttending ProviderActiveStart: June 29, 2024 Team Status: Active Member Role Status Deion Hook MD Primary Care Provider Active Start: June 29, 2024 Roberto Carlos Mcdermott , DOAdmit Provider, Other ProviderActiveStart: June 29, 2024 Tl Wild , MDAttending Provider, Other ProviderActiveStart: June 29, 2024 Team Status: Inactive Member Role Status Deion Hook MD Primary Care Provider Active Start: July 12, 2024 End: July 12eborah C Scally , APRNActiveStart: July 12, 2024 End: July 12hai Dozier , RNAttending ProviderActiveStart: July 12, 2024 End: July 12, 2024 Team Status: Inactive Member Role Status Deion Hook MD Primary Care Provide r, Attending Provider Active Start: September 04, 2024 End: September 04, 2024 Team Status: Active Member Role Status Deion Hook MD Primary Care Provider Active Start: September 05, 2024 Nroma C Scally , APRNAttending ProviderActiveStart: September 05, 2024 Team Status: Active Member Role Status Deion Hook MD Primary Care Provide r, Attending Provider Active Start: September 06, 2024 Team Status: Inactive Member Role Status Deion Hook MD Primary Care Provider Active Start: April 19, 2024 End: April 19, 2024Olvin Rose , RNAttending ProviderActiveStart: April 19, 2024 End: April 19eborah C Scally , APRNActiveStart: April 19, 2024 End: April 19, 2024 Team Status: Inactive Member Role Status Deion Hook MD Primary Care Provider Active Start: June 07, 2024 End: June 07eborah C Scally , APRNAttending ProviderActiveStart: June 07, 2024 End: June 07, 2024 Team Status: Active Member Role Status Deion Hook MD Primary Care Provider Active Start: June 09, 2024 Tosha ShanksFloyd , MDAttending ProviderActiveStart: June 09, 2024 Team Status: Inactive Member Role Status Dates Mica Hook MD Primary Care Provider Active Start: June 09, 2024 End: June 09, 2024d Teresita Claros-Folyd , MDAttending ProviderActiveStart: June 09, 2024 End: June 09, 2024 Team Status: Active Member Role Status Dates Mica Hook MD Primary Care Provider Active Start: March 23, 2024 Terri Marcelo RMAAttennesha ProviderActiveStart: March 23, 2024 Team Status: Inactive Member Role Status Dates Mica Hook MD Primary Care Provider Active Start: January 17, 2024 End: January 16ebnadja Diaz , APRNAttennesha ProviderActiveStart: January 17, 2024 End: January 17, 2024 Team Status: Inactive Member Role Status Dates Mica Hook MD Primary Care Provide r, Attending Provider Active Start: February 18, 2024 End: February 18, 2024 Team Status: Inactive Member Role Status Dates Mica Hook MD Primary Care Provider Active Start: March 07, 2024 End: March 07ebnadja Diaz APRNAttennesha ProviderActiveStart: March 07, 2024 End: March 07, 2024 Team Status: Inactive Member Role Status Dates Epi Booth MD Attending Provider Active Star t: April 10, 2024 End: April 10, 2024Marty Ayala Care ProviderActiveStart: April 10, 2024 End: April 10, 2024 Team Status: Active Member Role Status Dates Mica Hook MD Primary Care Provider Active Start: December 08, 2023 d Teresita Patel KASIAttending ProviderActiveStart: December 08, 2023 Team Status: Inactive Member Role Status Dates Mica Hook MD Primary Care Provider Active Start: December 08, 2023 End: December 08, 2023d Teresita Claros-Floyd , MDAttending ProviderActiveStart: December 08, 2023 End: December 08, 2023 Team Status: Inactive Member Role Status Dates Mica Hook MD Primary Care Provide r, Attending Provider Active Start: December 15, 2023 End: December 15, 2023 Team Status: Active Member Role Status Dates Mica Hook MD Primary Care Provider Active Start: December 24, 2023 Mayela Espinoza ProviderActiveStart: December 24, 2023 Team Status: Inactive Member Role Status Dates Epi Booth MD Attending Provider Active Star t: January 10, 2024 End: January 10, 2024Mica Hook [facility] ProviderActiveStart: January 10, 2024 End: January 10, 2024 Team Status: Inactive Member Role Status Dates Mica Hook MD Primary Care Provider Active Start: January 10, 2024 End: January 10, 2024Thomas KASIA Boothttending ProviderActiveStart: January 10, 2024 End: January 10, 2024 Team Status: Inactive Member Role Status Dates Mica Hook MD Primary Care Provider Active Ashwin Mayfield ProviderActive Team Status: Inactive Member Role Status Dates Mica Hook MD Primary Care Provider, Attending Ghislaine colmenares Active Team Status: Active Member Role Status Dates Mica Hook MD Primary Care Provider, Attending Ghislaine colmenares Active Team Status: Active Member Role Status Dates Mica Hook MD Primary Care Provider Active Tejas Reyes ProviderActiveCharles Salinas DOOther Provider ActiveUma Mccauley MDOther ProviderActivePorfirio Christensen II, MDOther ProviderActiveDamián Christensen MDOther ProviderActiveToni Arthur DOOther ProviderActiveEpi Booth MDOther ProviderActiveAlaa Alahmad , MDAdmit Provider, Attending ProviderActive Team Status: Inactive Member Role Status Dates Mica Hook MD Primary Care Provider Active Tejas Reyes ProviderActiveEpi Booth MDOther ProviderActive Alaa Alahmad , MDAdmit Provider, Attending ProviderActiveDamián Christensen MD Other ProviderActiveUma Mccauley MDOther ProviderActiveToni Arthur DOOther ProviderActivePorfirio Christensen II, MDOther ProviderActiveCharles Salinas , Other ProviderActiveTosha Patel MDOther ProviderActiveChjah Boston MDOther ProviderActive Team Status: Inactive Member Role Status Dates Mica Hook MD Primary Care Provider Active Epi Olexa , MDAttending ProviderActive Team Status: Inactive Member Role Status Dates Mica Hook MD Primary Care Provider Active Beverly Poloit Provider, Attending ProviderActiveStella Mascorro , RN Other ProviderActiveJennifer Arrieta , RNOther ProviderActiveDanna Farias , JANETH Other ProviderActiveMicmarciano Vo , RNOther ProviderActiveMerissa Reyes , JANETHOther ProviderActiveMofrancisco Herzog RNOther ProviderActiveGoldie Dale MD Other ProviderActiveLisa M Dials , APRNOther ProviderActiveRonobir Toya , DO Other ProviderActiveMuscookie Bagley MDOther ProviderActiveHank Vasquez , DOOther ProviderActiveKareem Parker MDOther ProviderActiveRuwilder Cantu MDOther ProviderActiveLyflori Kline , APRNOther ProviderActiveBrian Merino MDOther ProviderActiveBahector Bella MDOther ProviderActiveJean Monson MDOther ProviderActiveMarcelo Carlos MDOther ProviderActiveMichael Kilo , DOOther ProviderActiveFirnataliia Cortes MDOther ProviderActiveEarhiedi Pettit MDOther ProviderActiveAmy Diaz [place] , PUMP MACHINE OPERATOR-COther ProviderActiveEliot Gar MDOther ProviderActiveNaedavid Wilson MDOther ProviderActiveHumberto Chamorro MDOther ProviderActiveAnoKnowles MDOther ProviderActiveMarcydney Ochoa , DO Other ProviderActiveNeal R Inez , DOOther ProviderActiveAnthony M Miniaci , DOOther ProviderActiveLinda Obika , APRNOther ProviderActiveSergo Pike , DO Other ProviderActiveObaamor Moya MDOther ProviderActivePaula Abelardo Hills , APRNOther ProviderActiveAlicia Dorian Vega , APRNOther ProviderActiveChin Rodarte MDOther ProviderActiveNabil Buitrago MDOther ProviderActivePatricangeli Guzman , APRNOther ProviderActiveYajesse Bowden , DOOther ProviderActiveSyl Hammond RNOther ProviderActive Team Status: Inactive Member Role Status Dates Norma Diaz APRN Attending Provider Active Start: October 11, 2023 End: October 11, 2023 Team Status: Inactive Member Role Status Dates Mica Hook MD Primary Care Provider Active Start: October 11, 2023 End: October 15, 2023Tejas Reyes ProviderActiveStart: October 11, 2023 End: October 15, 2023ThAurora Arcos ProviderActiveStart: October 11, 2023 End: October 15Mason Zuniga Provider, Attending ProviderActive Start: October 11, 2023 End: October 15, 2023Damián Christensen MDOther ProviderActiveStart: October 11, 2023 End: October 15Aurora Rivers ProviderActiveStart: October 11, 2023 End: October 15, 2023Juhasmukh Arthur DOOther ProviderActiveStart: October 11, 2023 End: October 15, 2023Porfirio Christensen II, MDOther ProviderActiveStart: October 11, 2023 End: October 15evgovind Salinas DOOther ProviderActiveStart: October 11, 2023 End: October 15, 2023Tosha aPtel MDOther ProviderActiveStart: October 11, 2023 End: October 15jeramy Boston MDOther ProviderActiveStart: October 11, 2023 End: October 15, 2023 Team Status: Inactive Member Role Status Dates Mica Hook MD Primary Care Provider Active Start: October 15, 2023 End: November 03, 2023JoMason Reynolsd Provider, Attending Provider ActiveStart: October 15, 2023 End: November 03lexabe Mascorro RNOther ProviderActiveStart: October 15, 2023 End: November 03yousif Arrieta RNOther ProviderActiveStart: October 15, 2023 End: November 03, 2023Danna Farias RNOther ProviderActiveStart: October 15, 2023 End: November 03, 2023Belinda Vo RNOther ProviderActiveStart: October 15, 2023 End: November 03, 2023Merissa Reyes RNOther ProviderActiveStart: October 15, 2023 End: November 03, 2023Stacey Herzog RNOther ProviderActiveStart: October 15, 2023 End: November 03, 2023RaAurora Calix ProviderActiveStart: October 15, 2023 End: November 03, 2023Lisa Ashley Bejarano , APRNOther ProviderActiveStart: October 15, 2023 End: November 03, 2023Rondeondre Pittman , Other ProviderActiveStart: October 15, 2023 End: November 03, 2023MusAurora Cordero ProviderActiveStart: October 15, 2023 End: November 03ristopher Vasquez , DOOther ProviderActiveStart: October 15, 2023 End: November 03ndrebiju Parker MDOther ProviderActiveStart: October 15, 2023 End: November 03, 2023RuAurora Shane ProviderActiveStart: October 15, 2023 End: November 03, 2023Lyflori Kline , APRNOther ProviderActiveStart: October 15, 2023 End: November 03, 2023Aurora Lay ProviderActiveStart: October 15, 2023 End: November 03assAurora Greer ProviderActiveStart: October 15, 2023 End: November 03, 2023MaAurora Ambrosio ProviderActiveStart: October 15, 2023 End: November 03, 2023SafAurora Benoit ProviderActiveStart: October 15, 2023 End: November 03, 2023MichaeEdvin Baldwin ProviderActiveStart: October 15, 2023 End: November 03, 2023Aurora Murray ProviderActiveStart: October 15, 2023 End: November 03, 2023EarAurora Nugent ProviderActiveStart: October 15, 2023 End: November 03Davon Cortesher ProviderActiveStart: October 15, 2023 End: November 03, 2023Aurora Frost ProviderActiveStart: October 15, 2023 End: November 03, 2023NaeAurora Adkins ProviderActiveStart: October 15, 2023 End: November 03, 2023Rohit Chamorro , MDOther ProviderActiveStart: October 15, 2023 End: November 03tam Corbett MDOther ProviderActiveStart: October 15, 2023 End: November 03, 2023Isabel Ochoa , DOOther ProviderActiveStart: October 15, 2023 End: November 03, 2023Esau Wiley , DOOther ProviderActiveStart: October 15, 2023 End: November 03ntdena Rollins , DOOther ProviderActiveStart: October 15, 2023 End: November 03, 2023Xenada Aaliyah , APRNOther ProviderActiveStart: October 15, 2023 End: November 03, 2023Sergo Pike , DOOther ProviderActiveStart: October 15, 2023 End: November 03, 2023Luis Moya MDOther ProviderActiveStart: October 15, 2023 End: November 03autoyin Hills , APRNOther ProviderActiveStart: October 15, 2023 End: November 03pastor Vega , APRNOther ProviderActiveStart: October 15, 2023 End: November 03mary Rodarte MDOther ProviderActiveStart: October 15, 2023 End: November 03zeenat Buitrago MDOther ProviderActiveStart: October 15, 2023 End: November 03alicia Guzman , APRNOther ProviderActiveStart: October 15, 2023 End: November 03, 2023Mehnaz Bowden , DOOther ProviderActiveStart: October 15, 2023 End: November 03, 2023Sacash Hammond RNOther ProviderActiveStart: October 15, 2023 End: November 03, 2023 Team Status: Inactive Member Role Status Dates Mica Hook MD Attending Provider Active St art: November 09, 2023 End: November 09, 2023 Team Status: Inactive Member Role Status Dates Mica Hook MD Primary Care Provider Active Start: November 16, 2023 End: November 16, 2023Thomas Leobardo , MDAttending ProviderActiveStart: November 16, 2023 End: November 16, 2023 Team Status: Inactive Member Role Status Dates Norma Diaz APRN Attending Provider Active Start: November 18, 2023 End: November 18, 2023 Team Status: Active Member Role Status Dates Mica Hook MD Primary Care Provide r, Attending Provider Active Start: November 18, 2023 Team MemberRelationshipSpecialtyStart DateEnd Date Mica Hook MD [address] [facility] [place] [address] PCP - GeneralFamily Medicine01/26/24 David Hayward MD [address] [facility] [address] [place] [address] Consulting PhysicianCardiology01/26/24Team MemberRelationshipSpecialtyStart Date End Date Mica Hook MD [address] [facility] [address] PCP - GeneralFamily Oeszmrkx90/2/24 David Hayward MD Consulting PhysicianCardiology01/26/24Team MemberRelationshipSpecialtyStart Date End Date Mica Hook MD PCP - GeneralFamily Medicine01/26/24 David Hayward MD Consulting PhysicianCardiology01/26/24 Karen Stephens [facility]24 Team Status: Inactive Member Role Status Dates Mica Hook MD Primary Care Provider Active Start: December 13, 2024 End: December 13, 2024Ashwin Locke ProviderActiveStart: December 13, 2024 End: December 13, 2024 Team Status: Active Member Role Status Dates Mica Hook MD Primary Care Provider Active Start: December 13, 2024 Ashwin Altamirano ProviderActiveStart: December 13, 2024 Team MemberRelationshipSpecialtyStart DateEnd Date Mica Hook MD [address] [place] [address] PCP - GeneralFamily Dshncgxw35/2/24 David Hayawrd MD Consulting PhysicianCardiology01/26/24Team MemberRelationshipSpecialtyStart Date End Date Mica Hook MD [address] [place] [address] PCP - Generalmily Hqkjvxge02/2/24 David Hayward MD Consulting PhysicianCardiology01/26/24Team MemberRelationshipSpecialtyStart Date End Date Mica Hook MD [address] [place] [id number] PCP - Generalmily Zixkjtwo47/21/23Team MemberRelationshipSpecialtyStart Date End Date Mica Hook MD PCP - Generalmily Wpdpzzae69/21/23Team MemberRelationshipSpecialtyStart Date End Date Mica Hook MD [address] [place] [address] PCP - Generalmily Ctkuymse49/2/24 David Hayward MD Consulting PhysicianCardiology01/26/24Team MemberRelationshipSpecialtyStart Date End Date Mica Hook MD [address] [place] [address] [facility] Ndmfjhyn13/2/24 David Hayward MD Consulting PhysicianCardiology01/26/24Team MemberRelationshipSpecialtyStart Date End Date Mica Hook MD [address] [place] [address] PCP - GeneralFamily Jgswhwpx70/2/24 David Hayward MD Consulting PhysicianCardiology01/26/24 Team Status: Inactive Member Role Status Dates Mica Hook MD Primary Care Provider Active Start: March 21, 2025 End: March 21, 2025Ashwin Ayala ProviderActiveStart: March 21, 2025 End: March 21, 2025 Team Status: Inactive Member Role Status Dates Mica Hook MD Primary Care Provider Active Start: May 16, 2025 End: May 16, 2025Toya Garces ProviderActiveStart: May 16, 2025 End: May 16, 2025 Team Status: Active Member Role Status Dates Mica Hook MD Primary Care Provider Active Start: May 23, 2025 Toya Garces ProviderActiveStart: May 23, 2025 Team Status: Inactive Member Role Status Dates Mica Hook MD Primary Care Provider Active Start: May 24, 2025 End: May 24, 2025Toya Chavira ProviderActiveStart: May 24, 2025 End: May 24, 2025 Team Status: Inactive Member Role Status Dates Norma Diaz APRN Attending Provider Active Start: May 24, 2025 End: May 24, 2025Team MemberRelationshipSpecialtyStart DateEnd Date Mica Hook MD [address] [place] [address] [facility]ad[facility]/24 David Hayward MD Consulting PhysicianCardiology01/26/24 Team Status: Inactive Member Role Status Dates Olvin Rose RN Attending Provider Active St art: June 20, 2025 End: June 20, 2025Ananya Ayala Care ProviderActiveStart: June 20, 2025 End: June 20, 2025 Team Status: Inactive Member Role Status Dates Mica Hook MD Primary Care Provider Active Start: July 25, 2025 End: July 25, 2025Toya Chavira ProviderActiveStart: July 25, 2025 End: July 25, 2025 Goals (unrecognized section and content) Goals [...] BE BASED ON THE PRIMARY CLINICAL RECORDS. [employer] provides no warranty or guarantee of the accuracy or completeness of information in this document.
[2025-09-26 09:57] LABS: Thyroid Stimulating Hormone 0.258 uIU/mL (0.358-3.740)
== END 2025-09-26 08:36 | disposition home or self-care (01) ==
LOC: LAB 08:43
PROVIDERS: PCP Family Medicine; Visit Provider Family Medicine
DX: E03.9 Hypothyroidism, unspecified (principal)
CPT/HCPCS: 36415; 84439; 84443